=== PATIENT | female | born 1995 | race Caucasian/White ===

== ENCOUNTER 2018-02-27 18:18 | Emergency (ER) | payer OTHER ==
--- OUTSIDE RECORDS SUMMARY | 2018-02-27 18:20 | XMS REPORT ---
:1995 Author Organization [employer] Care Team Providers Name Role Phone Nury Rose Provider Role Unavailable Allergies No Known Allergies Problems Problem Type Condition Code Onset Dates Condition Status Problem Multigravida in second trimester Z34.82 Active Problem Obesity affecting in O99.212 Active second trimester Medications No Known Medications Results No Known Results Summary Purpose [employer]Clinical[employer] Submission
--- OUTSIDE RECORDS SUMMARY | 2018-02-27 18:20 | XMS REPORT ---
:1995 Author Organization [employer] Care Team Providers Name Role Phone Nury Rose Provider Role Unavailable Allergies No Known Allergies Problems Problem Type Condition Code Onset Dates Condition Status Problem Multigravida in second trimester Z34.82 Active Assessment Multigravida in second trimester Z34.82 Active Problem Obesity affecting in O99.212 Active second trimester Assessment Obesity affecting in O99.212 Active second trimester Medications No Known Medications Results No Known Results Summary Purpose [employer]ClinicalWorks Submission
--- OUTSIDE RECORDS SUMMARY | 2018-02-27 18:20 | XMS REPORT ---
[...] affecting in O99.212 Active second trimester Assessment Size of fetus inconsistent with O26.842 Active dates in second trimester Medications No Known Medications Results No Known Results Summary Purpose [employer]ClinicalWorks Submission
--- OUTSIDE RECORDS SUMMARY | 2018-02-27 18:20 | XMS REPORT ---
:1995 Author Organization [employer] Care Team Providers Name Role Phone Nruy Rose Provider Role Unavailable Allergies No Known Allergies Problems Problem Type Condition Code Onset Dates Condition Status Problem Multigravida in second trimester Z34.82 Active Problem Obesity affecting in O99.212 Active second trimester Medications No Known Medications Results No Known Results Summary Purpose [employer]ClinicalWorks Submission
--- OUTSIDE RECORDS SUMMARY | 2018-02-27 18:21 | XMS REPORT ---
:1995 Author Organization [employer] Care Team Providers Name Role Phone Nury Rose Provider Role Unavailable Allergies No Known Allergies Problems Problem Type Condition Code Onset Dates Condition Status Problem Multigravida in third trimester Z34.83 Active Problem Obesity affecting in O99.213 Active third trimester Medications No Known Medications Results No Known Results Summary Purpose [employer]ClinicalWorks Submission
--- OUTSIDE RECORDS SUMMARY | 2018-02-27 18:21 | XMS REPORT ---
:1995 Author Organization [employer] Care Team Providers Name Role Phone Nury Rose Provider Role Unavailable Allergies, Adverse Reactions, Alerts Substance Reaction Event Type PCN Info Not Available Drug Allergy Abilify Info Not Available Drug Allergy Problems Problem Type Condition Code Onset Dates Condition Status Problem Multigravida in second trimester Z34.82 Active Assessment Labial abscess N76.4 Active Problem Obesity affecting in O99.212 Active second trimester Medications No Known Medications Results No Known Results Summary Purpose [employer]ClinicalWorks Submission
--- OUTSIDE RECORDS SUMMARY | 2018-02-27 18:21 | XMS REPORT ---
:1995 Author Organization [employer] Care Team Providers Name Role Phone Nury Rose Provider Role Unavailable Allergies No Known Allergies Problems Problem Type Condition Code Onset Dates Condition Status Problem Multigravida in third trimester Z34.83 Active Assessment Obesity affecting in O99.213 Active third trimester Problem Obesity affecting in O99.213 Active third trimester Assessment Multigravida in third trimester Z34.83 Active Medications No Known Medications Results No Known Results Summary Purpose eClinicalWorks Submission
--- NOTE | 2018-02-27 20:09 | EDPHYS ---
Physician Documentation [facility] Name: Nicolasa Rose Age: 22 yrs Sex: Female : 1995 Arrival Date: 02/27/2018 Time: 18:21 Bed 27 Private MD: Milton Novak ED Physician Ronnie Craft HPI: 02/27 20:01 This 22 yrs old Female presents to ER via Ambulatory with complaints of Ear tw4 Pain. 20:01 The patient presents with a fullness, pain, that is acute. The complaints affect the tw4 right ear. Onset: The symptoms/episode began/occurred today. Modifying factors: The symptoms are alleviated by nothing, the symptoms are aggravated by nothing. Associated signs and symptoms: The patient has no apparent associated signs or symptoms. Severity of symptoms: At their worst the symptoms were moderate in the emergency department the symptoms are unchanged. The patient has not experienced similar symptoms in the past. 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 - Social history:: Smoking status: Patient/guardian denies using tobacco. ROS: 20:01 Constitutional: Negative for fever, chills, and weight loss. tw4 20:01 Cardiovascular: Negative for chest pain, palpitations, and edema, Respiratory: Negative for shortness of breath, cough, wheezing, and pleuritic chest pain, Abdomen/GI: Negative for abdominal pain, nausea, vomiting, diarrhea, and constipation, Back: Negative for injury and pain. 20:01 ENT: Positive for ear pain, Negative for injury or acute deformity, drainage from ear(s), Gum pain hearing loss, pulling at ears, Teeth pain Exam: 20:01 Constitutional: This is a well developed, well nourished patient who is awake, alert, tw4 and in no acute distress. Chest/axilla: Normal chest wall appearance and motion. Nontender with no deformity. No lesions are appreciated. Cardiovascular: Regular rate and rhythm with a normal S1 and S2. No gallops, murmurs, or rubs. Normal PMI, no JVD. No pulse deficits. Respiratory: Lungs have equal breath sounds bilaterally, clear to auscultation and percussion. No rales, rhonchi or wheezes noted. No increased work of breathing, no retractions or nasal flaring. Abdomen/GI: Soft, non-tender, with normal bowel sounds. No distension or tympany. No guarding or rebound. No evidence of tenderness throughout. 20:01 ENT: External ear(s): are unremarkable, Ear canal(s): are normal, TM's: dullness, on the right, erythema, that is moderate, on the right, fluid levels. Vital Signs: 18:41 BP 111 / 69; Pulse 105; Resp 18; Temp 97.9(TE); Pulse Ox 100% on R/A; Weight 108.86 kg lk1 (R); Height 5 ft. 5 in. (165.10 cm) (R); Pain 8/10; 19:26 BP 126 / 74; Pulse 100; Resp 18; Pulse Ox 100% ; tl3 18:41 Body Mass Index 39.94 (108.86 kg, 165.10 cm) lk1 MDM: 19:20 Patient medically screened. tw4 20:01 Differential diagnosis: otitis media. Data reviewed: vital signs, nurses notes. tw4 Counseling: I had a detailed discussion with the patient and/or guardian regarding: the historical points, exam findings, and any diagnostic results supporting the discharge/admit diagnosis. Special discussion: I discussed with the patient/guardian in detail that at this point there is no indication for admission to the hospital. It is understood, however, that if the symptoms persist or worsen the patient needs to return immediately for re-evaluation. Administered Medications: No medications were administered Disposition: 02/27/18 20:08 Discharged to Home. Impression: Otitis media in diseases classified elsewhere, right ear. - Condition is Stable. - Discharge Instructions: Otitis Media, Adult. - Prescriptions for Zithromax Z- Destin 250 mg Oral Tablet - take 1 tablet by ORAL route as directed for 5 days Day 1 - take two (2) tablets one time. Day 2, 3, 4 , 5 take one (1) tablet once daily.; 6 tablet. - Medication Reconciliation Form, Thank You Letter, Antibiotic Education, Prescription Opioid Use form. - Follow up: Milton Novak MD; When: As needed; Reason: Recheck today's complaints, Continuance of care, Re-evaluation by your physician. - Problem is new. - Symptoms are unchanged. Signatures: Jenny Smith, RN RN lk1 Ronnie Craft MD MD tw4 Lizzie Guillory, RN RN tl3 Corrections: (The following items were deleted from the chart) 20:39 20:08 02/27/2018 20:08 Discharged to Home. Impression: Otitis media in diseases tl3 classified elsewhere, right ear. Condition is Stable. Forms are Medication Reconciliation Form, Thank You Letter, Antibiotic Education, Prescription Opioid Use. Follow up: Milton Novak; When: As needed; Reason: Recheck today's complaints, Continuance of care, Re-evaluation by your physician. Problem is new. Symptoms are unchanged. tw4
--- NOTE | 2018-02-27 20:09 | ER ---
Nurse's Notes [facility] Name: Nicolasa Rose Age: 22 yrs Sex: Female : 1995 Arrival Date: 02/27/2018 Time: 18:21 Bed 27 Private MD: Milton Novak Diagnosis: Otitis media in diseases classified elsewhere, right ear Presentation: 02/27 18:40 Presenting complaint: Patient states: "I can't hear out of my ear (right). It started lk1 as sinus congestion, then at 4pm I started having pain.". Transition of care: patient was not received from another setting of care. Onset of symptoms was February 26, 2018. Risk Assessment: Do you want to hurt yourself or someone else? Patient reports no desire to harm self or others. Initial Sepsis Screen: Does the patient meet any 2 criteria? No. Patient's initial sepsis screen is negative. Does the patient have a suspected source of infection? No. Patient's initial sepsis screen is negative. Care prior to arrival: None. 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 - Social history:: Smoking status: Patient/guardian denies using tobacco. Screenin:26 Abuse screen: Denies threats or abuse. Nutritional screening: No deficits noted. tl3 Tuberculosis screening: No symptoms or risk factors identified. Fall Risk None identified. Assessment: 19:26 General: Appears in no apparent distress. comfortable, well groomed, well developed, tl3 well nourished, Behavior is calm, cooperative, appropriate for age. Pain: Complains of pain in right ear. Cardiovascular: Heart tones S1 S2 present Patient's skin is warm and dry. Respiratory: Airway is patent Trachea midline Respiratory effort is even, unlabored, Respiratory pattern is regular, symmetrical, Breath sounds are clear bilaterally. GI: No signs and/or symptoms were reported involving the gastrointestinal system. : No signs and/or symptoms were reported regarding the genitourinary system. EENT: Reports nasal congestion since one week. Derm: No signs and/or symptoms reported regarding the dermatologic system. Musculoskeletal: No signs and/or symptoms reported regarding the musculoskeletal system. Vital Signs: 18:41 BP 111 / 69; Pulse 105; Resp 18; Temp 97.9(TE); Pulse Ox 100% on R/A; Weight 108.86 kg lk1 (R); Height 5 ft. 5 in. (165.10 cm) (R); Pain 8/10; 19:26 BP 126 / 74; Pulse 100; Resp 18; Pulse Ox 100% ; tl3 18:41 Body Mass Index 39.94 (108.86 kg, 165.10 cm) lk1 ED Course: 18:21 Patient arrived in ED. rg4 18:21 Milton Novak MD is Private Physician. rg4 18:40 Triage completed. lk1 18:43 Arm band placed on right wrist. lk1 19:19 Ronnie Craft MD is Attending Physician. tw4 19:20 Lizzie Guillory, RN is Primary Nurse. tl3 19:26 No apparent distress. Awaiting ED provider evaluation. tl3 19:26 Patient has correct armband on for positive identification. Bed in low position. Call tl3 light in reach. Side rails up X 1. Adult w/ patient. Pulse ox on. NIBP on. 19:26 No provider procedures requiring assistance completed. Patient did not have IV access tl3 during this emergency room visit. 20:07 Milton Novak MD is Referral Physician. tw4 Administered Medications: No medications were administered Outcome: 20:08 Discharge ordered by . tw4 20:39 Patient left the ED. tl3 23:39 Discharged to home ambulatory. tl3 23:39 Condition: good 23:39 Discharge instructions given to patient, Instructed on discharge instructions, follow up and referral plans. medication usage, Demonstrated understanding of instructions, follow-up care, medications. Signatures: Jenny Smith, RN RN lk1 Donna Hollins 4 Ronnie Craft MD MD 4 Lizzie Guillory, OWEN RN tl3
[2018-02-27 21:14] VITALS: TEMP 97.9; O2SAT 100
[2018-02-27 21:16] VITALS: BP 126/74
== END 2018-02-27 20:39 | disposition home or self-care (01) ==
LOC: ER 18:18
DX: H66.91 Otitis media, unspecified, right ear (principal); Z88.0 Allergy status to penicillin; Z88.8 Allergy status to other drugs, medicaments and biological substances
CPT/HCPCS: 99283

== ENCOUNTER 2018-03-15 22:09 | Emergency (ER) | payer OTHER ==
--- NOTE | 2018-03-16 01:41 | ER ---
Nurse's Notes [facility] Name: Nicolasa Rose Age: 22 yrs Sex: Female : 1995 Arrival Date: 03/15/2018 Time: 22:15 Bed 6 Private MD: Milton Novak Diagnosis: Pain in right foot Presentation: 03/15 23:15 Presenting complaint: Patient states: that 2 days ago she started to have right foot fc pain. Denies any injury. No swelling or bruising present. Transition of care: patient was not received from another setting of care. Onset of symptoms was March 13, 2018. Risk Assessment: Do you want to hurt yourself or someone else? Patient reports no desire to harm self or others. Initial Sepsis Screen: Does the patient meet any 2 criteria? No. Patient's initial sepsis screen is negative. Does the patient have a suspected source of infection? No. Patient's initial sepsis screen is negative. Care prior to arrival: Medication(s) given: Motrin, 800 mg, last at about 1200. 23:15 Method Of Arrival: Wheelchair 23:15 Acuity: ROSENDO 4 Triage Assessment: 23:28 General: Appears comfortable, obese, Behavior is calm, cooperative, appropriate for age. Pain: Complains of pain in right foot Pain currently is 5 out of 10 on a pain scale. at worst was 9 out of 10 on a pain scale. Quality of pain is described as aching, throbbing, Pain began 2-3 days ago. Is continuous, Aggravated by increased activity, repositioning, weight bearing. EENT: No deficits noted. Neuro: Level of Consciousness is awake, alert, obeys commands, Oriented to person, place, time, situation. Cardiovascular: No deficits noted. Respiratory: No deficits noted. GI: No deficits noted. : No deficits noted. Derm: Skin is pink, warm \T\ dry. Musculoskeletal: Circulation, motion, and sensation intact. Capillary refill < 3 seconds, Range of motion: intact in all extremities, Reports pain in right foot. 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 - Social history:: Smoking status: Patient/guardian denies using tobacco. - Ebola Screening: : Patient negative for fever greater than or equal to 101.5 degrees Fahrenheit, and additional compatible Ebola Virus Disease symptoms Patient denies exposure to infectious person Patient denies travel to an Ebola-affected area in the 21 days before illness onset. Screenin/07 00:34 Abuse screen: Denies threats or abuse. Nutritional screening: No deficits noted. bp Tuberculosis screening: No symptoms or risk factors identified. Fall Risk Gait- Impaired (20 pts.). Assessment: 00:39 General: Appears in no apparent distress. uncomfortable, Behavior is calm, cooperative, tl2 appropriate for age. Pain: Complains of pain in arch of right foot. Pain: Pain does not radiate. Pain currently is 9 out of 10 on a pain scale. Aggravated by weight bearing. Neuro: Level of Consciousness is awake, alert, obeys commands, Oriented to person, place, time, situation. Cardiovascular: Denies chest pain. Respiratory: Airway is patent Respiratory effort is even, unlabored, Respiratory pattern is regular, symmetrical. GI: No signs and/or symptoms were reported involving the gastrointestinal system. : No signs and/or symptoms were reported regarding the genitourinary system. Derm: Skin is pink, warm \T\ dry. Musculoskeletal: Circulation, motion, and sensation intact. Range of motion: Swelling absent. Vital Signs: 03/15 23:28 BP 102 / 62; Pulse 90; Resp 16; Temp 98.1(O); Pulse Ox 98% on R/A; Weight 104.33 kg; fc Height 5 ft. 5 in. (165.10 cm) (R); Pain 02/16; 03/16 00:36 BP 111 / 64; Pulse 75; Resp 18; Pulse Ox 99% on R/A; bp 01:29 BP 105 / 72; Pulse 75; Resp 15; Pulse Ox 97% on R/A; rv 03/15 23:28 Body Mass Index 38.27 (104.33 kg, 165.10 cm) ED Course: 03/15 22:15 Patient arrived in ED. al2 22:15 Milton Novak MD is Private Physician. al2 23:28 Triage completed. fc 23:28 Arm band placed on Patient placed in waiting room, Patient notified of wait time. 03/16 00:34 Vickey Myles, RN is Primary Nurse. bp 00:34 Patient has correct armband on for positive identification. Bed in low position. Call bp light in reach. Side rails up X2. 00:38 [facility]. pm1 00:38 Kenny Storey MD is Attending Physician. pm1 00:39 Mary Levin RN is Primary Nurse. tl2 00:49 Foot Right 3 View In Process Unspecified. EDMS 00:51 X-ray completed. Portable x-ray completed in exam room. Patient tolerated procedure kw well. 02:19 No provider procedures requiring assistance completed. No provider procedures requiring rv assistance completed. 02:19 Patient did not have IV access during this emergency room visit. rv Administered Medications: 02:18 Drug: Tylenol 500 mg Route: PO; rv Outcome: 01:41 Discharge ordered by MD. pm1 02:19 Discharged to home ambulatory. rv 02:19 Condition: good 02:19 Discharge instructions given to patient. 02:20 Patient left the ED. rv Signatures: Dispatcher [employer] EDMS Yani Lanier RN RN Ludmila Roberts Sheng Muñoz NP DAM WORKER pm1 Mary Levin RN RN tl2 Vickey Myles RN RN bp Love, Angelica al2 Orlando Eduardo RN RN rv Corrections: (The following items were deleted from the chart) 00:39 00:34 General: Appears in no apparent distress. uncomfortable, Behavior is calm, tl2 cooperative, appropriate for age, bp 00:40 00:34 Pain: Complains of pain in arch of right foot Pain does not radiate. Pain tl2 currently is 9 out of 10 on a pain scale. Aggravated by weight bearing, bp 00:40 00:34 Neuro: Level of Consciousness is awake, alert, obeys commands, Oriented to tl2 person, place, time, situation, bp 00:40 00:34 Cardiovascular: Denies chest pain, bp tl2 00:40 00:34 Respiratory: Airway is patent Respiratory effort is even, unlabored, Respiratory tl2 pattern is regular, symmetrical, bp 00:40 00:34 GI: No signs and/or symptoms were reported involving the gastrointestinal system. tl2 bp 00:40 00:34 : No signs and/or symptoms were reported regarding the genitourinary system. bp tl2 00:40 00:34 Derm: Skin is pink, warm \T\ dry. bp tl2 00:40 00:34 General: Appears in no apparent distress. comfortable, uncomfortable, Behavior is tl2 calm, cooperative, appropriate for age, tl2
--- NOTE | 2018-03-16 01:41 | EDPHYS ---
Physician Documentation [facility] Name: Nicolasa Rose Age: 22 yrs Sex: Female : 1995 Arrival Date: 03/15/2018 Time: 22:15 Bed 6 Private MD: Milton Novak ED Physician Kenny Storey HPI: 03/16 01:35 This 22 yrs old Female presents to ER via Wheelchair with complaints of Foot pm1 Pain. 01:35 The patient presents with pain. The complaints affect the medial aspect of right foot. pm1 Context: The problem was sustained at home, resulted from an unknown cause, the patient can fully bear weight, the patient is able to ambulate, Problem is a result from a previous injury: No. Onset: The symptoms/episode began/occurred 2 day(s) ago. Modifying factors: The symptoms are alleviated by nothing. the symptoms are aggravated by movement, weight bearing. Associated signs and symptoms: Pertinent negatives fever, swelling, tingling, vomiting. Treatment prior to arrival includes: no previous treatment. Severity of symptoms: in the emergency department the symptoms are actually worse. The patient has not experienced similar symptoms in the past. The patient has not recently seen a physician. patient 33 weeks . 01:35 patient reports tripping over the dog at one time. pm1 LAUNDRY AGENT: 03/15 23:28 LMP 07/26/2017, Verified, EDC 05/02/2018, Gestational age from LMP: 33 weeks 2 fc days Historical: - Allergies: 23:28 PENICILLINS; fc 23:28 Abilify; fc - Home Meds: 23:28 None [Active]; fc - PMHx: 23:28 Anxiety; Depression; fc - PSHx: 23:28 None; fc - Immunization history:: Last tetanus immunization: up to date. - Social history:: Smoking status: Patient/guardian denies using tobacco. - Ebola Screening: : Patient negative for fever greater than or equal to 101.5 degrees Fahrenheit, and additional compatible Ebola Virus Disease symptoms Patient denies exposure to infectious person Patient denies travel to an Ebola-affected area in the 21 days before illness onset. ROS: 03/16 01:35 Constitutional: Negative for fever, chills, and weight loss, Eyes: Negative for injury, pm1 pain, redness, and discharge, ENT: Negative for injury, pain, and discharge, Neck: Negative for injury, pain, and swelling, Cardiovascular: Negative for chest pain, palpitations, and edema, Respiratory: Negative for shortness of breath, cough, wheezing, and pleuritic chest pain, Abdomen/GI: Negative for abdominal pain, nausea, vomiting, diarrhea, and constipation, Back: Negative for injury and pain. Skin: Negative for injury, rash, and discoloration, Neuro: Negative for headache, weakness, numbness, tingling, and seizure. MS/extremity: Positive for pain, of the right foot. Exam: 01:35 Constitutional: This is a well developed, well nourished patient who is awake, alert, pm1 and in no acute distress. Head/Face: Normocephalic, atraumatic. Neck: Trachea midline, no thyromegaly or masses palpated, and no cervical lymphadenopathy. Supple, full range of motion without nuchal rigidity, or vertebral point tenderness. No Meningismus. Chest/axilla: Normal chest wall appearance and motion. Nontender with no deformity. No lesions are appreciated. Cardiovascular: Regular rate and rhythm with a normal S1 and S2. No gallops, murmurs, or rubs. Normal PMI, no JVD. No pulse deficits. Respiratory: Lungs have equal breath sounds bilaterally, clear to auscultation and percussion. No rales, rhonchi or wheezes noted. No increased work of breathing, no retractions or nasal flaring. 01:35 Back: No spinal tenderness. No costovertebral tenderness. Full range of motion. Skin: Warm, dry with normal turgor. Normal color with no rashes, no lesions, and no evidence of cellulitis. 01:35 Abdomen/GI: Inspection: gravid appearance, is noted. 01:35 Musculoskeletal/extremity: Extremities: grossly normal except: noted in the ball of right foot: swelling, tenderness, ROM: full active range of motion, in the right foot, Circulation is intact in all extremities. Sensation intact. 01:35 Neuro: Orientation: is normal, Motor: moves all fours, Sensation: is normal, no obvious gross deficits. Vital Signs: 03/15 23:28 BP 102 / 62; Pulse 90; Resp 16; Temp 98.1(O); Pulse Ox 98% on R/A; Weight 104.33 kg; fc Height 5 ft. 5 in. (165.10 cm) (R); Pain 02/16; 03/16 00:36 BP 111 / 64; Pulse 75; Resp 18; Pulse Ox 99% on R/A; bp 01:29 BP 105 / 72; Pulse 75; Resp 15; Pulse Ox 97% on R/A; rv 03/15 23:28 Body Mass Index 38.27 (104.33 kg, 165.10 cm) fc MDM: 00:38 Patient medically screened. pm1 01:40 Data reviewed: vital signs. Data interpreted: Pulse oximetry: on room air is 97 %. pm1 Interpretation: normal. Counseling: I had a detailed discussion with the patient and/or guardian regarding: the historical points, exam findings, and any diagnostic results supporting the discharge/admit diagnosis, radiology results, the need for outpatient follow up, to return to the emergency department if symptoms worsen or persist or if there are any questions or concerns that arise at home. 03/16 00:40 Order name: Foot Right 3 View EDMS Administered Medications: 02:18 Drug: Tylenol 500 mg Route: PO; rv Disposition: 07:17 Co-signature as Attending Physician, Kenny Storey MD I agree with the assessment and johnny plan of care. Disposition: 03/16/18 01:41 Discharged to Home. Impression: Pain in right foot. - Condition is Stable. - Discharge Instructions: Foot Sprain. - Medication Reconciliation Form, Thank You Letter form. - Follow up: Emergency Department; When: As needed; Reason: Worsening of condition. Follow up: Private Physician; When: 2 - 3 days; Reason: Recheck today's complaints, Continuance of care, Re-evaluation by your physician. - Problem is new. - Symptoms have improved. Signatures: Dispatcher [employer] [facility] Kenny Storey MD MD cha Chretien, Felicia, RN RN Sheng Muñoz, [employer] pm1 Orlando Eduardo RN RN rv Corrections: (The following items were deleted from the chart) 00:40 00:01 Foot Right 2 View+RAD.RAD.BRZ ordered. [facility] 02:20 01:41 03/16/2018 01:41 Discharged to Home. Impression: Pain in right foot. Condition is rv Stable. Forms are Medication Reconciliation Form, Thank You Letter, Antibiotic Education, Prescription Opioid Use. Follow up: Emergency Department; When: As needed; Reason: Worsening of condition. Follow up: Private Physician; When: 2 - 3 days; Reason: Recheck today's complaints, Continuance of care, Re-evaluation by your physician. Problem is new. Symptoms have improved. pm1
[2018-03-16] MEDS ORDERED: ACETAMINOPHEN 500 MG TAB ONE (01:53)
[2018-03-16 03:23] VITALS: TEMP 98.1
[2018-03-16 03:25] VITALS: BP 105/72; O2SAT 97
--- NOTE | 2018-03-16 08:52 | RAD REPORT ---
EXAM DESCRIPTION: RAD - Foot Right 3 View - 03/16/2018 12:49 am CLINICAL HISTORY: Right foot pain without precipitating injury COMPARISON: None. FINDINGS: No fracture, dislocation or periosteal reaction. No acute or destructive bone findings demetris ntifiable. No bony coalition seen. No plantar or Achilles spurring identifiable. Normal ossicle seen along the posterior aspect of the tibiotalar joint space. No air or foreign body in the soft tissues. IMPRESSION: No acute bone, joint or soft tissue finding identifiable. If the patient has continued, unexplained pain symptoms, MR imaging of the foot could be performed.
== END 2018-03-16 02:20 | disposition home or self-care (01) ==
LOC: ER 22:09
DX: M79.671 Pain in right foot (principal); Z3A.33 33 weeks gestation of pregnancy; Z88.0 Allergy status to penicillin; Z88.8 Allergy status to other drugs, medicaments and biological substances
CPT/HCPCS: 99283

== ENCOUNTER 2018-04-26 05:16 | Inpatient (IN) | payer OTHER ==
[~2018-04-26 05:16] MED LIST: ACETAMINOPHEN 500 MG TAB PO PRN; DIPHENHYDRAMINE 50 MG/ML VIAL IV PRN; METOCLOPRAMIDE 10 MG/2mL INJ IV PRN; ONDANSETRON 4 MG/2 ML VIAL IV PRN; Ringers Lactate 1,000 ML IV PRN; Ringers Lactate 1,000 ML IV SCH
--- OUTSIDE RECORDS SUMMARY | 2018-04-26 05:18 | XMS REPORT ---
:1995 Author Organization e[employer] Care Team Providers Name Role Phone Nury Rose Provider Role Unavailable Allergies No Known Allergies Problems Problem Type Condition Code Onset Dates Condition Status Problem Multigravida in third trimester Z34.83 Active Assessment Multigravida in third trimester Z34.83 Active Problem Obesity affecting in O99.213 Active third trimester Assessment Obesity affecting in O99.213 Active third trimester Medications Medication Code System Code Instructions Start Date End Date Status Dosage Diflucan [facility] [id number] 150 MG Orally March 16, Active 1 tablet Take one now and 2018 repeat dose in 72h Results No Known Results Summary Purpose eClinicalWorks Submission
--- OUTSIDE RECORDS SUMMARY | 2018-04-26 05:19 | XMS REPORT ---
:1995 Author Organization [employer] Care Team Providers Name Role Phone Nury Rose Provider Role Unavailable Allergies No Known Allergies Problems Problem Type Condition Code Onset Dates Condition Status Problem Multigravida in third trimester Z34.83 Active Problem Obesity affecting in O99.213 Active third trimester Assessment Multigravida in third trimester Z34.83 Active Assessment Obesity affecting in O99.213 Active third trimester Medications No Known Medications Results No Known Results Summary Purpose eClinicalWorks Submission
[2018-04-26] MEDS ORDERED: miSOPROStol 100 MCG TAB PO ONE (06:00)
[2018-04-26 06:19] LABS: RPR Titer ND
[2018-04-26 06:21] LABS: Urine Appearance CLOUDY; Urine Bilirubin NEGATIVE (NEG); Urine Blood 1+ (NEG); Urine Color YELLOW; Urine Glucose NEGATIVE (NEG); Urine Protein NEGATIVE (NEG); Urine Urobilinogen 0.2 mg/dL (0.2-1.0)
[2018-04-26 06:22] LABS: Absolute Lymphocytes (CBC) 1.8 K/uL (0.7-4.9); Absolute Monocytes 0.6 K/uL (0.1-1.3); Absolute Neutrophil 5.3 K/uL (1.8-8.0); Basophils % 0.5 % (0-1.3); Eosinophils % 0.4 % (0-4.4); Hematocrit 33.3 % (36.0-45.0); Lymphocytes % 23.1 % (15.3-44.8); MCH 29.3 pg (27.0-35.0); MCV 87.7 fL (80-100); MPV 8.6 fL (7.6-11.3); Monocytes % 7.3 % (3.3-12.3)
[2018-04-26 06:24] LABS: Urine Microscopic Reflex ORDER UMIC
[2018-04-26 06:29] VITALS: BMI 40.7
[2018-04-26 06:34] LABS: Urine Bacteria 20-50 /HPF (<20); Urine Culture Reflex Order REFLEXED
[2018-04-26 07:11] LABS: BUN Blood Urea Nitrogen 5 mg/dL (7-18); Bicarbonate 22 mmol/L (21-32); Glucose Level 83 mg/dL (74-106); Potassium 4.1 mmol/L (3.5-5.1); Sodium Level 141 mmol/L (136-145)
--- NOTE | 2018-04-26 09:06 | P.HP ---
Certification for Inpatient Patient admitted to: Inpatient With expected LOS: >2 Midnights Patient will require the following post-hospital care: None Practitioner: I am a practitioner with admitting privileges, knowledge of patient current condition, hospital course, and medical plan of care. Services: Services provided to patient in accordance with Admission requirements found in Title 42 Section 412.3 of the Code of Federal Regulations Patient History Date of Service: 04/27/18 Reason for admission: Elective induction of labor History of Present Illness: 22 y.o. at 39w1d admitted for an elective induction of labor. c/b obesity, failed contraception, h/o anxiety/depression (off meds), and contractions. Pt had routine care starting at 6 weeks. REGINO: 05/02/2018. GBS negative Allergies aripiprazole [From Abilify] Allergy (Verified 04/26/18 06:19) Unknown Penicillins Allergy (Verified 04/26/18 06:19) Unknown pap Allergy (Uncoded 02/13/15 09:06) Unknown paper tape Allergy (Uncoded 03/04/15 21:37) Unknown Home Medications: Codeine/APAP [Tylenol W/Codeine #3 tab] 1 tab PO Q6HP PRN #15 tab 04/27/18 Ibuprofen 800 mg PO TID PRN #30 tablet 04/27/18 - Past Medical/Surgical History Has patient received pneumonia vaccine in the past: No Diabetic: No -: HPV Past Surgical History: Patient denies surgical history - Social History Smoking Status: Never smoker Alcohol use: No CD- Drugs: No Caffeine use: Yes Place of Residence: Home Review of Systems 10-point ROS is otherwise unremarkable Physical Examination - Vital Signs Temperature: 97.7 F Blood Pressure: 115/69 Pulse: 78 Respirations: 18 - Physical Exam General: Alert, In no apparent distress, Oriented x3 Respiratory: Other (Normal effort) Cardiovascular: Normal pulses Musculoskeletal: No tenderness, Swelling (B/L 1+ ankle edema) Integumentary: No rashes, No breakdown Neurological: Normal speech, Normal strength at 5/5 x4 extr - Studies Laboratory Data (last 24 hrs) 04/26/18 05:40: Sodium 141, Potassium 4.1, BUN 5 L, Creatinine 0.60, Glucose 83 04/26/18 05:40: WBC 7.8, Hgb 11.1 L, Hct 33.3 L, Plt Count 194 Female Exam - Female Pelvic Cervix: Dilation (1-2 cm by RN), Effacement (Thick), station (High) Uterus: Non-tender, Soft, Gravid - Obstetrics heart rate tracing: Category 1 Contractions: Frequency (Irregular) Amniotic membrane: Intact Assessment and Plan - Problems (Diagnosis) (1) Term Onset Date: 04/27/18 Current Visit: Yes Status: Resolved Plan: Admitted for elective induction of labor. Cervical ripening started with cytotec. Plan for 3 doses prior to starting pitocin. U/S confirmed cephalic presentation. Epidural per patient request with villalpando placement. (2) BMI greater than 40 Onset Date: 04/27/18 Current Visit: Yes Status: Chronic Plan: Counseled on exercise and healthy diet throughout . Negative GDM screen. - Advance Directives Does patient have a Living Will: No Does patient have a Durable POA for Healthcare: No
--- NOTE | 2018-04-26 09:57 | RAD REPORT ---
EXAM DESCRIPTION: US - OB Limited - 04/26/2018 9:37 am FINDINGS: Limited OB ultrasound was performed. Exam was requested only for position assessment . Single gestation identified in cephalic presentation. Heart rate was 171 BPM. Anterior placenta shows no suspicious findings for late third trimester gestation. IMPRESSION: Single gestation in cephalic presentation.
[2018-04-26] MEDS ORDERED: ROPIVACAINE HCL 100 ML IV PRN (12:09)
[2018-04-26] MEDS ORDERED: ROPIVACAINE HCL 0.2% 20ML AMP IV ONE (12:10)
[2018-04-26] MEDS ORDERED: FENTANYL CITR 100 MCG/2 ML IV ONE (12:10)
[2018-04-26] MEDS ORDERED: PROMETHAZINE 25 MG/ML VIAL IV ONE (12:22)
[2018-04-26] MEDS ORDERED: PROMETHAZINE 25 MG/ML VIAL ONE (12:36)
[2018-04-26] MEDS ORDERED: miSOPROStol 100 MCG TAB VAG SCH (13:00)
[2018-04-26 19:15] LABS: RPR (Rapid Plasma Reagin) NON-REACT (NON-REACT)
[2018-04-26] MEDS ORDERED: OXYTOCIN/LR 20 UNIT/1,000 ML BAG IV SCH (20:45)
[2018-04-26] MEDS ORDERED: OXYTOCIN/LR 20 UNIT/1,000 ML BAG IV ONE (20:54)
[2018-04-26] MEDS ORDERED: BUTORPHANOL 1 MG/ML INJ ONE (21:10)
[2018-04-26] MEDS ORDERED: BUTORPHANOL 1 MG/ML INJ IV PRN (21:55)
[2018-04-27] MEDS ORDERED: FENTANYL/BUPIVACAINE/NS/PF 200 MCG/100 ML BAG EP PRN (02:15)
[2018-04-27] MEDS ORDERED: ROPIVACAINE HCL 0.2% 20ML AMP SQ ONE (02:20)
[2018-04-27] MEDS ORDERED: METHYLERGONOVINE 0.2MG/ML AMP IM ONE (02:53)
[2018-04-27] MEDS ORDERED: LIDOCAINE 2% W/EPI 1:200,000 MPF 20 ML VIAL IM ONE (02:53)
[2018-04-27] MEDS ORDERED: DIPHENHYDRAMINE 25 MG TAB/CAP PO PRN (03:19)
[2018-04-27] MEDS ORDERED: ACETAMINOPHEN 500 MG TAB PO PRN (03:19)
[2018-04-27] MEDS ORDERED: ONDANSETRON 4 MG (ODT) TAB PO PRN (03:19)
[2018-04-27] MEDS ORDERED: METOCLOPRAMIDE 5 MG TAB PO PRN (03:19)
--- NOTE | 2018-04-27 03:26 | P.OP ---
Preoperative diagnosis: Term IUP, elective induction of labor Postoperative diagnosis: Same with precipitous delivery Primary procedure: , precipitous Anesthesia: None Estimated blood loss: 300 cc Specimen: None Findings: See operative report Operative Technique: FINDINGS: [place] male fetus. APGARS of 9/9; weight of 7# 14 oz; Clear amniotic fluid, normal appearing placenta; Small 2nd degree midline laceration HISTORY OF PRESENT ILLNESS: The patient is a 22-year-old female who is a at 39w1d admitted for an elective IOL. Her labs showed A+ blood type with negative antibody screen, VDRL non-reactive, hepatitis B surface antigen negative, HIV non-reactive and rubella immune status. She presented to Labor and Delivery for a scheduled induction. She noted positive movement and denied any other complaints. On exam, she was noted to be 1-2 cm dilated. PROCEDURE DETAILS: The patient was admitted to Labor and Delivery for cervical ripening, which was done with cytotec. After 3 doses, she started to have painful contractions and repeat exam per nursing was 4 cm. She requested an epidural. Anesthesia was called. RN then reports patient's called out to nursing station and patient was re-examined and reportedly now 7 cm. Anesthesia was en route. RN then states patient told her she was pushing shortly thereafter and delivered the baby en-caul. Per nursing, fluid was clear. I was called and informed to come in, but baby had already delivered. When I arrived, infant on the warmer being assessed by nursing. He was crying, pink, vigorous, and moving all extremities. Placenta was not delivered yet. Spontaneous delivery of an intact placenta with a three-vessel cord was noted at 03:04. On examination, there was a small 2nd degree laceration. 2-0 vicryl was used to repair it in the usual sterile fashion after local was injected and anesthesia confirmed. On vaginal exam, there were no noted cervical or other vaginal sidewall lacerations. Estimated blood loss was 300 cc. Mother and infant are in recovery doing well at this time. Complications: None (RN attended delivery) Fluids & blood products: mIVF Transferred to: Recovery Room Condition: Good
[2018-04-27] MEDS ORDERED: NA CHLORIDE 0.9% 1,000 ML IV SCH (04:00)
[2018-04-27] MEDS ORDERED: miSOPROStol 100 MCG TAB PO SCH (09:00)
[2018-04-27] MEDS: IBUPROFEN 200 MG TAB PO PRN ×2 (11:54→22:10)
--- NOTE | 2018-04-27 17:39 | P.DS ---
Admission Date: 04/26/18 Discharge Date: 05/15/18 Disposition: ROUTINE DISCHARGE Comment: Rounding with discharge summary Discharge Condition: GOOD Reason for Admission: Elective induction of labor - Problems (1) Term Onset Date: 04/27/18 Status: Resolved (2) BMI greater than 40 Onset Date: 04/27/18 Status: Chronic Brief History of Present Illness: 22 y.o. at 39w1d admitted for an elective induction of labor. c/b obesity and contractions. She has had routine care. REGINO: 05/02/2018. GBS negative Hospital Course: Pt was admitted for elective induction of labor. She underwent cervical ripening with cytotec and had spontaneous onset of labor. She asked for an epidural and anesthesia was called for placement, but quickly progressed to complete per nursing. She then started pushing despite nursing request to hold off. I was notified to present to L&D but baby had already delivered when I was called. I arrived and baby was on the warmer. I delivered placenta and repaired 2nd degree laceration. Pt recovered well and was stable for d/c home on PPD #1 Vital Signs/Physical Exam: Temp Pulse Resp BP Pulse Ox 98.3 F 78 14 110/80 04/27/18 17:23 04/27/18 17:23 04/27/18 17:23 04/27/18 17:23 General: Alert, In no apparent distress, Oriented x3 HEENT: Atraumatic, Normocephalic Respiratory: Other (Normal effort) Cardiovascular: Normal pulses Gastrointestinal: Soft and benign, No tenderness, Other (Obese, but uterum firm) Musculoskeletal: No erythema, No tenderness, Swelling (B/L LE pitting edema 2+) Integumentary: No rashes, No breakdown Neurological: Normal speech, Normal strength at 5/5 x4 extr Laboratory Data at Discharge: WBC 7.8 K/uL (4.3-10.9) 04/26/18 05:40 Hgb 11.1 g/dL (12.0-15.0) L 04/26/18 05:40 Hct 33.3 % (36.0-45.0) L 04/26/18 05:40 Plt Count 194 K/uL (152-406) 04/26/18 05:40 Sodium 141 mmol/L (136-145) 04/26/18 05:40 Potassium 4.1 mmol/L (3.5-5.1) 04/26/18 05:40 BUN 5 mg/dL (7-18) L 04/26/18 05:40 Creatinine 0.60 mg/dL (0.55-1.3) 04/26/18 05:40 Glucose 83 mg/dL (74-106) 04/26/18 05:40 Home Medications: Codeine/APAP [Tylenol W/Codeine #3 tab] 1 tab PO Q6HP PRN #15 tab 04/27/18 Ibuprofen 800 mg PO TID PRN #30 tablet 04/27/18 New Medications: Codeine/APAP [Tylenol W/Codeine #3 tab] 1 tab PO Q6HP PRN #15 tab PRN Reason: Pain Severe Ibuprofen 800 mg PO TID PRN #30 tablet PRN Reason: Abdominal Cramps Patient Discharge Instructions: Complete pelvic rest for 6 weeks after . Notify physician of heavy bleeding, fever/chills, or other signs of infection. See doctor in 6 weeks for exam. Diet: Regular Activity: Ad vinod Followup: Nury Rose MD [ACTIVE - CAN ADMIT] - (Follow up care with Dr. Rose in 6 weeks for post visit. [phone])
[2018-04-28 05:20] LABS: Absolute Lymphocytes (CBC) 2.1 K/uL (0.7-4.9); Absolute Monocytes 0.6 K/uL (0.1-1.3); Absolute Neutrophil 5.3 K/uL (1.8-8.0); Basophils % 1.1 % (0-1.3); Eosinophils % 0.8 % (0-4.4); Hematocrit 28.6 % (36.0-45.0); Lymphocytes % 25.8 % (15.3-44.8); MCH 29.9 pg (27.0-35.0); MPV 8.5 fL (7.6-11.3); Monocytes % 7.1 % (3.3-12.3); RBC Red Blood Cell Count 3.25 M/uL (3.86-4.86)
[2018-04-28 08:06] VITALS: BP 115/57; TEMP 97.1
[2018-04-28] MEDS ORDERED: Ringers Lactate 1,000 ML IV ONE (10:34)
[2018-04-28 18:18] LABS: HBsAG Nonreactive (Nonreactive)
== END 2018-04-28 10:50 | disposition home or self-care (01) | DRG 775 ==
LOC: 2ND-WC 05:16
PROVIDERS: ADMIT Obstetrics & Gynecology; ATTEND Obstetrics & Gynecology
PROC: 3E0P7VZ Introduction of Hormone into Female Reproductive, Via Natural or Artificial Opening (ICD-10-PCS; 2018-04-26)
PROC: 10E0XZZ Delivery of Products of Conception, External Approach (ICD-10-PCS; principal; 2018-04-27)
PROC: 0KQM0ZZ Repair Perineum Muscle, Open Approach (ICD-10-PCS; 2018-04-27)
DX: O62.3 Precipitate labor (principal); Z68.41 Body mass index [BMI] 40.0-44.9, adult; O70.1 Second degree perineal laceration during delivery; O99.214 Obesity complicating childbirth; Z3A.39 39 weeks gestation of pregnancy; Z37.0 Single live birth; Z88.0 Allergy status to penicillin; Z88.8 Allergy status to other drugs, medicaments and biological substances; Z91.048 Other nonmedicinal substance allergy status
CPT/HCPCS: 36415; 76815; 80048; 81003; 81015; 85025; 86592; 86850; 86900; 86901; 87086; 87088; 87340; J0595; J2210; J2550; J2590; J7030

== ENCOUNTER 2018-07-07 10:22 | Emergency (ER) | payer OTHER ==
--- OUTSIDE RECORDS SUMMARY | 2018-07-07 10:24 | XMS REPORT ---
[...] Start Date End Date Status Dosage Diflucan [facility] [id number] 150 MG Orally March 16, Active 1 tablet Take one now and 2018 repeat dose in 72h Results No Known Results Summary Purpose eClinicalWorks Submission
--- NOTE | 2018-07-07 10:51 | ER ---
Nurse's Notes [facility] Name: Nicolasa Rose Age: 23 yrs Sex: Female : 1995 Arrival Date: 07/07/2018 Time: 10:26 Bed 23 Private MD: Milton Novak Diagnosis: Pain in left foot;Pain in right foot Presentation: 07/07 10:34 Presenting complaint: Patient states: bilateral foot pain that starts in heels and ss radiates up towards ankles x 3 weeks. Worse in the mornings and when standing. Transition of care: patient was not received from another setting of care. Onset of symptoms was June 16, 2018. Risk Assessment: Do you want to hurt yourself or someone else? Patient reports no desire to harm self or others. Initial Sepsis Screen: Does the patient meet any 2 criteria? No. Patient's initial sepsis screen is negative. Does the patient have a suspected source of infection? No. Patient's initial sepsis screen is negative. Care prior to arrival: None. 10:34 Method Of Arrival: Ambulatory ss 10:34 Acuity: ROSENDO 5 ss Historical: - Allergies: 10:35 Abilify; ss 10:35 PENICILLINS; ss - Home Meds: 10:35 None [Active]; ss - PMHx: 10:35 Depression; Anxiety; ss - PSHx: 10:35 None; ss - Immunization history:: Adult Immunizations up to date. - Social history:: Smoking status: Patient/guardian denies using tobacco. - Ebola Screening: : Patient denies exposure to infectious person Patient denies travel to an Ebola-affected area in the 21 days before illness onset. Screenin:37 Abuse screen: Denies threats or abuse. Denies injuries from another. Nutritional ss screening: No deficits noted. Tuberculosis screening: Never had TB. Fall Risk None identified. Assessment: 10:37 General: Appears in no apparent distress. comfortable, Behavior is calm, cooperative, ss Denies fever, feeling ill, fatigue, chills. Pain: Complains of pain in bilateral heels Pain currently is 0 out of 10 on a pain scale. at worst was 9 out of 10 on a pain scale. Quality of pain is described as pulling/ aching Pain began 3 weeks ago Is continuous. Pain: Pain radiates to bilateral heels. Neuro: Level of Consciousness is awake, alert, obeys commands, Oriented to person, place, time, situation. Cardiovascular: Capillary refill < 3 seconds is brisk in bilateral fingers Patient's skin is warm and dry. Respiratory: Airway is patent Respiratory effort is even, unlabored, Respiratory pattern is regular, symmetrical. GI: No signs and/or symptoms were reported involving the gastrointestinal system. EENT: Nares are clear Oral mucosa is moist. Derm: Skin is intact, is healthy with good turgor, Skin is dry, Skin is pink, warm \T\ dry. Musculoskeletal: Circulation, motion, and sensation intact. Range of motion: intact in all extremities, Swelling absent. Vital Signs: 10:35 BP 108 / 72; Pulse 87; Resp 15; Temp 97.5(TE); Pulse Ox 100% on R/A; Weight 94.8 kg; ss Height 5 ft. 5 in. (165.10 cm); Pain 0/10; 10:35 Body Mass Index 34.78 (94.80 kg, 165.10 cm) ss ED Course: 10:26 Patient arrived in ED. mr 10:26 Milton Novak MD is Private Physician. mr 10:27 [facility] jmm 10:27 Luciano Batista MD is Attending Physician. m 10:35 Triage completed. ss 10:35 Arm band placed on right wrist. ss 10:37 Patient has correct armband on for positive identification. Bed in low position. Call ss light in reach. 10:50 Gabino Iraheta DPM is Referral Physician. [facility] 10:50 Daniel Hill MD is Referral Physician. [facility] 10:50 Referral Physician role handed off by Gabino Iraheta DPM [facility] 10:50 Referral Physician role handed off by Daniel Hill MD m 10:50 Gregory Soto MD is Referral Physician. m 11:23 No provider procedures requiring assistance completed. Patient did not have IV access ss during this emergency room visit. Administered Medications: No medications were administered Outcome: 10:51 Discharge ordered by . jmm 11:23 Discharged to home ambulatory. ss 11:23 Condition: good 11:23 Discharge instructions given to patient, family, Instructed on discharge instructions, follow up and referral plans. medication usage, Demonstrated understanding of instructions, follow-up care, medications, Prescriptions given X 1. 11:23 Patient left the ED. ss Signatures: Dar Leon PA PA jmm Rivera, Maria mr Smirch, Shelby, RN RN ss
--- NOTE | 2018-07-07 10:51 | EDPHYS ---
Physician Documentation [facility] Name: Nicolasa Rose Age: 23 yrs Sex: Female : 1995 Arrival Date: 07/07/2018 Time: 10:26 Bed 23 Private MD: Milton Novak ED Physician Luciano Batista HPI: 07/07 10:46 This 23 yrs old Female presents to ER via Ambulatory with complaints of Foot jmm Pain. 10:46 The patient presents with pain, that is acute. The complaints affect the right foot and jmm left foot. Onset: The symptoms/episode began/occurred gradually, 3 week(s) ago. Associated signs and symptoms: Pertinent negatives fever. This is a 23 year old female with a history of anxiety that presents to the ED with foot pain ongoing for the past 3 weeks. 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 Patient states symptoms are worse in the morning. Denies known injury. Denies fever. Symptoms are localized to the plantar surface of both feet. Pain radiates to her ankles. . Historical: - Allergies: 10:35 Abilify; ss 10:35 PENICILLINS; ss - Home Meds: 10:35 None [Active]; ss - PMHx: 10:35 Depression; Anxiety; ss - PSHx: 10:35 None; ss - Immunization history:: Adult Immunizations up to date. - Social history:: Smoking status: Patient/guardian denies using tobacco. - Ebola Screening: : Patient denies exposure to infectious person Patient denies travel to an Ebola-affected area in the 21 days before illness onset. ROS: 10:46 Constitutional: Negative for fever, chills, and weight loss. jmm 10:46 MS/extremity: Positive for pain, Negative for injury or acute deformity. 10:46 All other systems are negative. Exam: 10:46 Head/Face: atraumatic. Eyes: EOMI, no conjunctival erythema appreciated Neck: jmm Trachea midline, Supple Chest/axilla: Normal chest wall appearance and motion. Cardiovascular: Regular rate and rhythm. No edema appreciated Respiratory: Normal respirations, no respiratory distress appreciated 10:46 Constitutional: The patient appears in no acute distress, alert, awake. 10:46 Musculoskeletal/extremity: FROM appreciated to the ankle bilaterally, pain elicited on jmm palpation of the plantar surface of both feet, no erythema or indurations appreciated, full dorsalis pedis pulse, compartments are soft, NVI. 10:46 Skin: Appearance: Color: normal in color. [facility] 10:46 Neuro: Orientation: is normal, Mentation: is normal, Memory: is normal. 10:46 Psych: Behavior/mood is pleasant, cooperative. Vital Signs: 10:35 BP 108 / 72; Pulse 87; Resp 15; Temp 97.5(TE); Pulse Ox 100% on R/A; Weight 94.8 kg; ss Height 5 ft. 5 in. (165.10 cm); Pain 0/10; 10:35 Body Mass Index 34.78 (94.80 kg, 165.10 cm) ss MDM: 10:46 Patient medically screened. [facility] 10:46 Data reviewed: vital signs, nurses notes. Counseling: I had a detailed discussion with brook the patient and/or guardian regarding: the historical points, exam findings, and any diagnostic results supporting the discharge/admit diagnosis, the need for outpatient follow up, to return to the emergency department if symptoms worsen or persist or if there are any questions or concerns that arise at home. 10:46 Data interpreted: Pulse oximetry: on room air is 100 %. Interpretation: normal. [facility] Administered Medications: No medications were administered Disposition: 15:44 Co-signature as Attending Physician, Luciano Batista MD. rn Disposition: 07/07/18 10:51 Discharged to Home. Impression: Pain in left foot, Pain in right foot. - Condition is Stable. - Discharge Instructions: Plantar Fasciitis. - Prescriptions for Ibuprofen 800 mg Oral Tablet - take 1 tablet by ORAL route every 8 hours As needed take with food; 30 tablet. - Work release form, Medication Reconciliation Form, Thank You Letter, Antibiotic Education, Prescription Opioid Use form. - Follow up: Gabino Iraheta DPM; When: As needed; Reason: Recheck today's complaints, Continuance of care, Re-evaluation by your physician. Follow up: Daniel Hill MD; When: As needed; Reason: Recheck today's complaints, Continuance of care, Re-evaluation by your physician. Follow up: Gregory Soto MD; When: As needed; Reason: Recheck today's complaints, Continuance of care, Re-evaluation by your physician. Signatures: Dar Leon PA PA jmm Batista, Luciano, MD MD rn Felisa Domingo RN RN ss Corrections: (The following items were deleted from the chart) 11:23 10:51 07/07/2018 10:51 Discharged to Home. Impression: Pain in left foot; Pain in right ss foot. Condition is Stable. Forms are Medication Reconciliation Form, Thank You Letter, Antibiotic Education, Prescription Opioid Use. Follow up: Gregory Soto; When: As needed; Reason: Recheck today's complaints, Continuance of care, Re-evaluation by your physician. brook
[2018-07-07 11:27] VITALS: BP 108/72; TEMP 97.5; O2SAT 100
== END 2018-07-07 11:23 | disposition home or self-care (01) ==
LOC: ER 10:22
DX: M79.671 Pain in right foot (principal); Z88.0 Allergy status to penicillin; Z88.8 Allergy status to other drugs, medicaments and biological substances
CPT/HCPCS: 99282

== ENCOUNTER 2018-08-20 20:57 | Emergency (ER) | payer OTHER ==
--- OUTSIDE RECORDS SUMMARY | 2018-08-20 21:00 | XMS REPORT ---
[...] Start Date End Date Status Dosage Diflucan [facility] [id number] 150 MG Orally March 16, Active 1 tablet Take one now and 2018 repeat dose in 72h Results No Known Results Summary Purpose eClinicalWorks Submission
--- OUTSIDE RECORDS SUMMARY | 2018-08-20 21:00 | XMS REPORT ---
:1995 Author Organization eClinicalWorks Care Team Providers Name Role Phone Nuyr Rose Provider Role Unavailable Allergies No Known [...]
[2018-08-20] MEDS ORDERED: IBUPROFEN 400 MG TAB ONE (21:59)
[2018-08-20 22:07] LABS: Urine Blood 2+ (NEG); Urine Glucose NEGATIVE (NEG); Urine Protein NEGATIVE (NEG); Urine Specific Gravity 1.025 (1.005-1.030)
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
[2018-08-21 02:10] VITALS: TEMP 98.1; O2SAT 100
[2018-08-21 02:15] VITALS: BP 110/78
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
== END 2018-08-20 23:18 | disposition home or self-care (01) ==
LOC: ER 20:57
DX: M25.562 Pain in left knee (principal); V49.40XA Driver injured in collision with unspecified motor vehicles in traffic accident, initial encounter
CPT/HCPCS: 81003; 81025; 99284

== ENCOUNTER 2018-11-07 14:12 | Emergency (ER) | payer OTHER ==
--- OUTSIDE RECORDS SUMMARY | 2018-11-07 14:17 | XMS REPORT ---
[...] Date End Date Status Dosage Diflucan [facility] [id number] 150 MG Orally March 16, Active 1 tablet Take one now and 2018 repeat dose in 72h Results No Known Results Summary Purpose eClinicalWorks Submission
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
--- OUTSIDE RECORDS SUMMARY | 2018-11-07 14:18 | XMS REPORT ---
:1995 Author Organization e[employer]Works Care Team Providers Name Role Phone Jj Soledad Provider Role Unavailable Allergies, Adverse Reactions, Alerts Substance Reaction Event Type PCN Rash Drug Allergy Abilify Rash Drug Allergy Problems Problem Type Condition Code Onset Dates Condition Status Problem Obesity affecting in O99.213 Active third trimester Problem Multigravida in third trimester Z34.83 Active Problem Seasonal allergies J30.2 Active Assessment Allergic rhinitis, unspecified J30.9 Active seasonality, unspecified trigger Medications Medication Code System Code Instructions Start End Date Status Dosage Date Flonase NDC 09644262346 50 MCG/ACT Sep 18, Active 2 sprays Nasally Once a 2018 each day nostril prn [place]olia NDC 0 Active not defined Results No Known Results Summary Purpose eClinicalWorks Submission
[2018-11-07] MEDS ORDERED: IBUPROFEN 400 MG TAB ONE (14:56)
[2018-11-07] MEDS ORDERED: IBUPROFEN 200 MG TAB PO ONE (14:57)
--- NOTE | 2018-11-07 15:53 | EDPHYS ---
Physician Documentation [facility] Name: Nicolasa Rose Age: 23 yrs Sex: Female : 1995 Arrival Date: 11/07/2018 Time: 14:14 Bed 25 Private MD: Milton Novak ED Physician Meir Knox HPI: 11/07 14:33 This 23 yrs old Female presents to ER via Ambulatory with complaints of Wrist cp Injury. 14:33 The patient or guardian reports pain, tenderness. The complaints affect the left wrist cp diffusely. 14:33 Context: resulted from lifting or pulling, a heavy object. cp 14:33 Onset: The symptoms/episode began/occurred today. Associated signs and symptoms: cp Pertinent negatives: cyanosis distally, decreased sensation distally, numbness distally. 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 - Social history:: Smoking status: Patient/guardian denies using tobacco. - Ebola Screening: : Patient denies travel to an Ebola-affected area in the 21 days before illness onset. ROS: 14:33 Eyes: Negative for injury, pain, redness, and discharge. cp 14:33 Constitutional: Negative for body aches, chills, fever, poor PO intake. 14:33 Cardiovascular: Negative for chest pain. 14:33 Respiratory: Negative for cough, wheezing. 14:33 Abdomen/GI: Negative for abdominal pain, vomiting, diarrhea, constipation. 14:33 MS/extremity: Positive for pain, tenderness, of the left wrist, Negative for deformity, paresthesias. 14:33 Skin: Negative for cellulitis, rash. 14:33 All other systems are negative. Exam: 14:40 Constitutional: The patient appears in no acute distress, alert, awake, well developed, cp well nourished. 14:40 Head/Face: Normocephalic, atraumatic. cp 14:40 Eyes: Periorbital structures: appear normal, Conjunctiva: normal, no exudate, no injection, Lids and lashes: appear normal, bilaterally. 14:40 ENT: External ear(s): are unremarkable, Nose: is normal, Mouth: is normal, Posterior pharynx: Airway: no evidence of obstruction, patent. 14:40 Chest/axilla: Inspection: normal. 14:40 Cardiovascular: Rate: normal. 14:40 Respiratory: the patient does not display signs of respiratory distress, Respirations: normal, no use of accessory muscles, no retractions, no splinting, no tachypnea, labored breathing, is not present. 14:40 Abdomen/GI: Inspection: abdomen appears normal. 14:40 Musculoskeletal/extremity: Extremities: grossly normal except: noted in the medial aspect left wrist: pain, tenderness, ROM: limited passive range of motion due to pain, in the left wrist, Perfusion: the extremity is normally perfused throughout, Sensation intact. Vital Signs: 14:17 BP 95 / 61; Pulse 73; Resp 18; Temp 97.0(TE); Pulse Ox 100% on R/A; Weight 92.99 kg tw2 (R); Height 5 ft. 5 in. (165.10 cm); Pain 7/10; 14:17 Body Mass Index 34.11 (92.99 kg, 165.10 cm) tw2 MDM: 14:22 Patient medically screened. cp 15:00 Differential diagnosis: dislocation, closed fracture, contusion. cp 15:50 Data reviewed: vital signs, nurses notes, radiologic studies, plain films. cp 15:50 Test interpretation: by ED physician or midlevel provider: plain radiologic studies. cp Counseling: I had a detailed discussion with the patient and/or guardian regarding: the historical points, exam findings, and any diagnostic results supporting the discharge/admit diagnosis, radiology results, to return to the emergency department if symptoms worsen or persist or if there are any questions or concerns that arise at home. Response to treatment: the patient's symptoms have mildly improved after treatment, and as a result, I will discharge patient. 11/07 14:28 Order name: XRAY Wrist LEFT 3 view cp 11/07 15:14 Order name: Wrist Splint: left; Complete Time: 15:26 cp Administered Medications: 14:48 Drug: Ibuprofen 800 mg Route: PO; tl3 15:53 Follow up: Response: No adverse reaction; Pain is decreased tl3 15:52 Not Given (Physician Discretion): prednisoLONE Liquid 1 mg/kg PO once cp Disposition: 18:24 Co-signature as Attending Physician, Meir Knox MD. ma2 Disposition: 11/07/18 15:51 Discharged to Home. Impression: Pain in left wrist. - Condition is Stable. - Discharge Instructions: Wrist Pain. - Prescriptions for Naprosyn 500 mg Oral Tablet - take 1 tablet by ORAL route 2 times per day take with food; 20 tablet. - Medication Reconciliation Form, Thank You Letter, Antibiotic Education, Prescription Opioid Use form. - Follow up: Private Physician; When: 1 week; Reason: Recheck today's complaints, if pain continues. - Problem is new. - Symptoms have improved. Signatures: Dispatcher [employer] EDMS Kenny Tucker PA PA cp Ashanti Villalobos RN RN 2 Meir Knox MD MD ky2 Lizzie Guillory, OWEN RN tl3 Corrections: (The following items were deleted from the chart) 16:07 15:51 11/07/2018 15:51 Discharged to Home. Impression: Pain in left wrist. Condition is tl3 Stable. Forms are Medication Reconciliation Form, Thank You Letter, Antibiotic Education, Prescription Opioid Use. Follow up: Private Physician; When: 1 week; Reason: Recheck today's complaints, if pain continues. Problem is new. Symptoms have improved. cp
--- NOTE | 2018-11-07 15:53 | ER ---
Nurse's Notes [facility] Name: Nicolasa Rose Age: 23 yrs Sex: Female : 1995 Arrival Date: 11/07/2018 Time: 14:14 Bed 25 Private MD: Milton Novak Diagnosis: Pain in left wrist Presentation: 11/07 14:15 Presenting complaint: Patient states: i was moving and i put pressure on my LEFT wrist, tw2 just about 30 minutes ago and now its starting to feel stiff. Transition of care: patient was not received from another setting of care. Onset of symptoms was November 07, 2018. Risk Assessment: Do you want to hurt yourself or someone else? Patient reports no desire to harm self or others. Initial Sepsis Screen: Does the patient meet any 2 criteria? No. Patient's initial sepsis screen is negative. Does the patient have a suspected source of infection? No. Patient's initial sepsis screen is negative. Care prior to arrival: None. 14:15 Method Of Arrival: Ambulatory tw2 14:15 Acuity: ROSENDO 4 tw2 Triage Assessment: 14:17 General: Appears in no apparent distress. obese, Behavior is calm, cooperative, tw2 appropriate for age. Pain: Complains of pain in left wrist. Musculoskeletal: Circulation, motion, and sensation intact. Injury Description: "put pressure on it wrong", pt denies falling. 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 - Social history:: Smoking status: Patient/guardian denies using tobacco. - Ebola Screening: : Patient denies travel to an Ebola-affected area in the 21 days before illness onset. Screenin:32 Abuse screen: Denies threats or abuse. Nutritional screening: No deficits noted. tl3 Tuberculosis screening: No symptoms or risk factors identified. Fall Risk None identified. Assessment: 14:32 General: Appears in no apparent distress. well developed, well nourished, Behavior is tl3 calm, cooperative, appropriate for age. Pain: Complains of pain in left wrist Pain currently is 5 out of 10 on a pain scale. at worst was 10 out of 10 on a pain scale. Neuro: Level of Consciousness is awake, alert, obeys commands, Oriented to person, place, time, situation, Appropriate for age. Cardiovascular: Capillary refill < 3 seconds in left fingers Patient's skin is warm and dry. Respiratory: Airway is patent. GI: No deficits noted. : No signs and/or symptoms were reported regarding the genitourinary system. EENT: No signs and/or symptoms were reported regarding the EENT system. Derm: Bruising that is on left wrist. Musculoskeletal: Range of motion: intact in all extremities, Swelling present in left wrist. Injury Description: pt was being held by her legs to berry picker a phone that had dropped behind some items in a storage facility when she fell onto and twisted her left wrist. 16:06 Reassessment: Patient appears in no apparent distress at this time. No changes from tl3 previously documented assessment. Patient and/or family updated on plan of care and expected duration. Pain level reassessed. Patient is alert, oriented x 3, equal unlabored respirations, skin warm/dry/pink. Splint applied, cap refill within 2sec, able to move all fingers freely. Vital Signs: 14:17 BP 95 / 61; Pulse 73; Resp 18; Temp 97.0(TE); Pulse Ox 100% on R/A; Weight 92.99 kg tw2 (R); Height 5 ft. 5 in. (165.10 cm); Pain 7/10; 14:17 Body Mass Index 34.11 (92.99 kg, 165.10 cm) tw2 ED Course: 14:14 Patient arrived in ED. sb2 14:14 Milton Novak MD is Private Physician. sb2 14:16 Triage completed. tw2 14:18 Arm band placed on. tw2 14:21 Lizzie Guillory, OWEN is Primary Nurse. tl3 14:22 Kenny Tucker PA is PHCP. cp 14:22 Meir Knox MD is Attending Physician. cp 14:32 Patient has correct armband on for positive identification. Bed in low position. Adult tl3 w/ patient. 14:32 No provider procedures requiring assistance completed. Patient did not have IV access tl3 during this emergency room visit. 15:03 XRAY Wrist LEFT 3 view In Process Unspecified. EDMS Administered Medications: 14:48 Drug: Ibuprofen 800 mg Route: PO; tl3 15:53 Follow up: Response: No adverse reaction; Pain is decreased tl3 15:52 Not Given (Physician Discretion): prednisoLONE Liquid 1 mg/kg PO once cp Outcome: 15:51 Discharge ordered by MD. cp 16:06 Discharged to home ambulatory. tl3 16:06 Condition: stable 16:06 Discharge instructions given to patient, Instructed on discharge instructions, follow up and referral plans. medication usage, Demonstrated understanding of instructions, follow-up care, medications, Prescriptions given X 1. 16:07 Patient left the ED. tl3 Signatures: Dispatcher [employer] EDMS Kenny Tucker PA PA cp Wise, Tara RN RN tw2 Saundra Santiago sb2 Lizzie Guillory, RN RN tl3
[2018-11-07 16:28] VITALS: BP 95/61; TEMP 97; O2SAT 100
--- NOTE | 2018-11-07 17:47 | RAD REPORT ---
EXAM DESCRIPTION: RAD - Wrist Left 3 View - 11/07/2018 3:01 pm CLINICAL HISTORY: Wrist pain, lifting injury COMPARISON: None. FINDINGS: No fracture is identified. There is no dislocation or periosteal reaction noted. No foreig n body or other soft tissue abnormality. IMPRESSION: Negative left wrist examination.
== END 2018-11-07 16:07 | disposition home or self-care (01) ==
LOC: ER 14:12
DX: M25.532 Pain in left wrist (principal); Z88.0 Allergy status to penicillin; Z88.8 Allergy status to other drugs, medicaments and biological substances
CPT/HCPCS: 99283

== ENCOUNTER 2018-12-13 16:15 | Emergency (ER) | payer SELFPAY ==
[2012-06-17 16:25] VITALS: BP 121/72
--- OUTSIDE RECORDS SUMMARY | 2018-12-13 16:17 | XMS REPORT ---
[...] Date End Date Status Dosage Diflucan [facility] 80495761733 150 MG Orally March 16, Active 1 tablet Take one now and 2018 repeat dose in 72h Results No Known Results Summary Purpose eClinicalWorks Submission
--- OUTSIDE RECORDS SUMMARY | 2018-12-13 16:18 | XMS REPORT ---
[...] End Date Status Dosage Date Flonase NDC 65915069826 50 MCG/ACT Sep 18, Active 2 sprays Nasally Once a 2018 each day nostril prn [place]olia NDC 0 Active not defined Results No Known Results Summary Purpose eClinicalWorks Submission
--- NOTE | 2018-12-13 17:00 | ER ---
Nurse's Notes [facility] Name: Nicolasa Rose Age: 23 yrs Sex: Female : 1995 Arrival Date: 12/13/2018 Time: 16:15 Bed Waiting [facility] MD: Diagnosis: Presentation: 12/13 17:00 Note eloped at 1635 d/t wait in ER at this time. tw2 ED Course: 16:15 Patient arrived in ED. ds1 Administered Medications: No medications were administered Outcome: 17:00 Patient left the ED. tw2 Signatures: Xochitl Hayes ds1 Ashanti Villalobos RN RN tw2
== END 2018-12-13 17:00 | disposition left against medical advice (07) ==
LOC: ER 16:15
DX: Z53.21 Procedure and treatment not carried out due to patient leaving prior to being seen by health care provider (principal)

== ENCOUNTER 2018-12-14 08:51 | Emergency (ER) | payer OTHER ==
--- OUTSIDE RECORDS SUMMARY | 2018-12-14 08:56 | XMS REPORT ---
[...] End Date Status Dosage Date Flonase NDC 60540304753 50 MCG/ACT Sep 18, Active 2 sprays Nasally Once a 2018 each day nostril prn [place]olia NDC 0 Active not defined Results No Known Results Summary Purpose eClinicalWorks Submission
--- OUTSIDE RECORDS SUMMARY | 2018-12-14 08:56 | XMS REPORT ---
[...] Start Date End Date Status Dosage Diflucan [facility] 32815511685 150 MG Orally March 16, Active 1 tablet Take one now and 2018 repeat dose in 72h Results No Known Results Summary Purpose eClinicalWorks Submission
--- NOTE | 2018-12-14 10:59 | EDPHYS ---
Physician Documentation [facility] Name: Nicolasa Rose Age: 23 yrs Sex: Female : 1995 Arrival Date: 12/14/2018 Time: 08:56 Bed 11 Private MD: Milton Novak ED Physician Alejandro Rai HPI: 12/14 09:33 This 23 yrs old Female presents to ER via Unassigned with complaints of Flu kav Symptoms. 10:27 Onset: The symptoms/episode began/occurred acutely, 1 day(s) ago. Associated signs and kav symptoms: The patient has no apparent associated signs or symptoms. Modifying factors: The patient symptoms are alleviated by nothing, the patient symptoms are aggravated by nothing. The patient has not experienced similar symptoms in the past. The patient has not recently seen a physician. Exposure to sick contact with Influenza. 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 - Social history:: Smoking status: Patient/guardian denies using tobacco. - Ebola Screening: : Patient negative for fever greater than or equal to 101.5 degrees Fahrenheit, and additional compatible Ebola Virus Disease symptoms Patient denies exposure to infectious person Patient denies travel to an Ebola-affected area in the 21 days before illness onset No symptoms or risks identified at this time. - Family history:: not pertinent. - Hospitalizations: : No recent hospitalization is reported. ROS: 10:27 Constitutional: Negative for fever, chills, and weight loss, Eyes: Negative for injury, kav pain, redness, and discharge, ENT: Negative for injury, pain, and discharge, Neck: Negative for injury, pain, and swelling, Cardiovascular: Negative for chest pain, palpitations, and edema, Abdomen/GI: Negative for abdominal pain, nausea, vomiting, diarrhea, and constipation, Back: Negative for injury and pain, : Negative for injury, bleeding, discharge, and swelling, MS/Extremity: Negative for injury and deformity, Skin: Negative for injury, rash, and discoloration, Neuro: Negative for headache, weakness, numbness, tingling, and seizure, Psych: Negative for depression, anxiety, suicide ideation, homicidal ideation, and hallucinations, Allergy/Immunology: Negative for hives, rash, and allergies, Endocrine: Negative for neck swelling, polydipsia, polyuria, polyphagia, and marked weight changes, Hematologic/Lymphatic: Negative for swollen nodes, abnormal bleeding, and unusual bruising. 10:27 Respiratory: Positive for cough, with no reported sputum. Exam: 10:27 Constitutional: This is a well developed, well nourished patient who is awake, alert, kav and in no acute distress. Head/Face: Normocephalic, atraumatic. Eyes: Pupils equal round and reactive to light, extra-ocular motions intact. Lids and lashes normal. Conjunctiva and sclera are non-icteric and not injected. Cornea within normal limits. Periorbital areas with no swelling, redness, or edema. ENT: Nares patent. No nasal discharge, no septal abnormalities noted. Tympanic membranes are normal and external auditory canals are clear. Oropharynx with no redness, swelling, or masses, exudates, or evidence of obstruction, uvula midline. Mucous membranes moist. Neck: Trachea midline, no thyromegaly or masses palpated, and no cervical lymphadenopathy. Supple, full range of motion without nuchal rigidity, or vertebral point tenderness. No Meningismus. Chest/axilla: Normal chest wall appearance and motion. Nontender with no deformity. No lesions are appreciated. Cardiovascular: Regular rate and rhythm with a normal S1 and S2. No gallops, murmurs, or rubs. Normal PMI, no JVD. No pulse deficits. Abdomen/GI: Soft, non-tender, with normal bowel sounds. No distension or tympany. No guarding or rebound. No evidence of tenderness throughout. Back: No spinal tenderness. No costovertebral tenderness. Full range of motion. Skin: Warm, dry with normal turgor. Normal color with no rashes, no lesions, and no evidence of cellulitis. MS/ Extremity: Pulses equal, no cyanosis. Neurovascular intact. Full, normal range of motion. Neuro: Awake and alert, GCS 15, oriented to person, place, time, and situation. Cranial nerves II-XII grossly intact. Motor strength 5/5 in all extremities. Sensory grossly intact. Cerebellar exam normal. Normal gait. Psych: Awake, alert, with orientation to person, place and time. Behavior, mood, and affect are within normal limits. 10:27 Respiratory: the patient does not display signs of respiratory distress, Respirations: normal, no acute changes, Breath sounds: are clear throughout, no acute changes, throughout. Vital Signs: 09:42 BP 93 / 72; Pulse 120; Resp 16; Temp 97.6(TE); Pulse Ox 98% on R/A; iw MDM: 09:26 Medical screening is not applicable. kav 10:58 Data reviewed: vital signs, nurses notes, lab test result(s), Flu: positive. kav Counseling: I had a detailed discussion with the patient and/or guardian regarding: the historical points, exam findings, and any diagnostic results supporting the discharge/admit diagnosis, lab results. 12/14 09:53 Order name: Flu; Complete Time: 10:58 kav 12/14 10:58 Interpretation: Abnormal. kav Administered Medications: No medications were administered Disposition: 14:57 Co-signature as Attending Physician, Alejandro Rai MD I agree with the assessment and kdr plan of care. Disposition: 12/14/18 10:59 Discharged to Home. Impression: Influenza due to identified novel influenza A virus. - Condition is Stable. - Prescriptions for Tamiflu 75 mg Oral Capsule - take 1 tablet by ORAL route every 12 hours for 5 days; 10 tablet. - Thank You Letter, Antibiotic Education, Work release form form. - Follow up: Milton Novak MD; When: 5 - 6 days; Reason: Recheck today's complaints, Continuance of care, Re-evaluation by your physician. - Problem is new. - Symptoms are unchanged. Signatures: Dispatcher [employer] EDIL Alejandro Rai MD MD kdr Vern, Katherine, HYDRAULIC CORRUGATING MACHINE OPERATOR HYDRAULIC CORRUGATING MACHINE OPERATOR Nallely Paniagua, OWEN RN iw Nicole Andrade RN RN Corrections: (The following items were deleted from the chart) 11:23 10:59 12/14/2018 10:59 Discharged to Home. Impression: Influenza due to identified hb novel influenza A virus. Condition is Stable. Forms are Medication Reconciliation Form, Thank You Letter, Antibiotic Education, Prescription Opioid Use. Follow up: Milton Novak; When: 5 - 6 days; Reason: Recheck today's complaints, Continuance of care, Re-evaluation by your physician. Problem is new. Symptoms are unchanged. chrissy
--- NOTE | 2018-12-14 10:59 | ER ---
Nurse's Notes [facility] Name: Nicolasa Rose Age: 23 yrs Sex: Female : 1995 Arrival Date: 12/14/2018 Time: 08:56 Bed 11 Private MD: Milton Novak Diagnosis: Influenza due to identified novel influenza A virus Presentation: 12/14 09:40 Presenting complaint: Patient states: fever, chills, body aches since yesterday, oldest iw daughter tested positive for flu recently. Transition of care: patient was not received from another setting of care. Onset of symptoms was December 13, 2018. Risk Assessment: Do you want to hurt yourself or someone else? Patient reports no desire to harm self or others. Initial Sepsis Screen: Does the patient meet any 2 criteria? No. Patient's initial sepsis screen is negative. Does the patient have a suspected source of infection? No. Patient's initial sepsis screen is negative. Care prior to arrival: None. 09:40 Method Of Arrival: Ambulatory iw 09:40 Acuity: ROSENDO 4 iw Triage Assessment: 10:10 General: Appears in no apparent distress. Behavior is calm. iw REHAB AIDE: 09:42 LMP 12/14/2018 iw Historical: - Allergies: 09:42 Abilify; iw 09:42 PENICILLINS; iw - Home Meds: 09:42 None [Active]; iw - PMHx: 09:42 Anxiety; Depression; iw - Immunization history:: Adult Immunizations not up to date. - Social history:: Smoking status: Patient/guardian denies using tobacco. - Ebola Screening: : Patient negative for fever greater than or equal to 101.5 degrees Fahrenheit, and additional compatible Ebola Virus Disease symptoms Patient denies exposure to infectious person Patient denies travel to an Ebola-affected area in the 21 days before illness onset No symptoms or risks identified at this time. - Family history:: not pertinent. - Hospitalizations: : No recent hospitalization is reported. Screenin:20 Abuse screen: Denies threats or abuse. Denies injuries from another. Nutritional iw screening: No deficits noted. Tuberculosis screening: No symptoms or risk factors identified. Fall Risk None identified. Assessment: 10:50 General: Appears in no apparent distress. Behavior is calm, cooperative. Pain: iw Complains of pain in body aches. Neuro: Level of Consciousness is awake, alert, obeys commands, Oriented to person, place, time. Cardiovascular: Patient's skin is warm and dry. Vital Signs: 09:42 BP 93 / 72; Pulse 120; Resp 16; Temp 97.6(TE); Pulse Ox 98% on R/A; iw ED Course: 08:56 Patient arrived in ED. rg4 08:56 Vickey Valdez MD is Private Physician. rg4 08:58 Milton Nvoak MD is Private Physician. rg4 09:26 Jazmyn Aquino FNP is [facility]. kav 09:26 Alejandro Rai MD is Attending Physician. kav 09:39 Nallely Raphael, OWEN is Primary Nurse. iw 09:42 Triage completed. iw 09:43 Arm band placed on. iw 10:58 Milton Novak MD is Referral Physician. kav 10:59 Patient has correct armband on for positive identification. iw 11:22 Patient did not have IV access during this emergency room visit. iw 11:23 No provider procedures requiring assistance completed. iw Administered Medications: No medications were administered Outcome: 10:59 Discharge ordered by MD. kav 11:22 Discharged to home ambulatory, with family. hb 11:22 Condition: stable 11:22 Discharge instructions given to patient, family, Instructed on discharge instructions, follow up and referral plans. medication usage, Demonstrated understanding of instructions, follow-up care, medications, Prescriptions given X 1. 11:23 Patient left the ED. hb Signatures: Jazmyn Aquino FNP FNP kav Williams, Irene, RN RN iw [facility], Heather, RN RN hb Garcia, Rubi rg4
[2018-12-14 11:42] VITALS: BP 93/72; TEMP 97.6; O2SAT 98
== END 2018-12-14 11:23 | disposition home or self-care (01) ==
LOC: ER 08:51
DX: J10.1 Influenza due to other identified influenza virus with other respiratory manifestations (principal); Z88.0 Allergy status to penicillin; Z88.8 Allergy status to other drugs, medicaments and biological substances
CPT/HCPCS: 87804; 99282

== ENCOUNTER 2019-01-14 22:33 | Emergency (ER) | payer OTHER ==
--- OUTSIDE RECORDS SUMMARY | 2019-01-14 22:37 | XMS REPORT ---
[...] Start Date End Date Status Dosage Diflucan [facility] [id number] 150 MG Orally March 16, Active 1 tablet Take one now and 2018 repeat dose in 72h Results No Known Results Summary Purpose eClinicalWorks Submission
--- OUTSIDE RECORDS SUMMARY | 2019-01-14 22:37 | XMS REPORT ---
[...] End Date Status Dosage Date Flonase NDC [id number] 50 MCG/ACT Sep 18, Active 2 sprays Nasally Once a 2018 each day nostril prn [place] NDC 0 Active not defined Results No Known Results Summary Purpose eClinicalWorks Submission
[2019-01-15 00:07] LABS: Urine Blood NEGATIVE (NEG); Urine Glucose NEGATIVE (NEG); Urine Protein 1+ (NEG); Urine Specific Gravity >1.030 (1.005-1.030); Urine pH 5.5 (5.0-7.0)
[2019-01-15 00:13] LABS: Absolute Lymphocytes (CBC) 1.7 K/uL (0.7-4.9); Absolute Monocytes 0.6 K/uL (0.1-1.3); Absolute Neutrophil 5.2 K/uL (1.8-8.0); Basophils % 0.8 % (0-1.3); Eosinophils % 0.6 % (0-4.4); Hematocrit 38.6 % (36.0-45.0); Lymphocytes % 22.7 % (15.3-44.8); MPV 8.6 fL (7.6-11.3); Monocytes % 7.3 % (3.3-12.3); RBC Red Blood Cell Count 4.41 M/uL (3.86-4.86)
[2019-01-15 00:36] LABS: ALT/SGPT 21 U/L (12-78); AST/SGOT 12 U/L (15-37); Albumin 3.8 g/dL (3.4-5.0); Alkaline Phosphatase 67 U/L (45-117); BUN Blood Urea Nitrogen 11 mg/dL (7-18); Bicarbonate 27 mmol/L (21-32); Bilirubin Direct 0.1 mg/dL (0-0.2); Bilirubin Total 0.4 mg/dL (0.2-1.0); Glucose Level 94 mg/dL (74-106); Lipase 91 U/L (73-393); Protein, Total 7.2 g/dL (6.4-8.2); Sodium Level 143 mmol/L (136-145)
[2019-01-15 00:38] LABS: Urine Bacteria 20-50 /HPF (<20); Urine Culture Reflex Order REFLEXED; Urine Mucus HEAVY /HPF (NONE SEEN); Urine RBC <5 /HPF (NONE SEEN)
--- NOTE | 2019-01-15 03:08 | EDPHYS ---
Physician Documentation [facility] Name: Nicolasa Rose Age: 23 yrs Sex: Female : 1995 Arrival Date: 01/14/2019 Time: 22:52 Bed 5 Private MD: ED Physician Michael Fox HPI: 01/15 00:00 This 23 yrs old Female presents to ER via Ambulatory with complaints of pm1 Pelvic Pain. 00:00 The patient presents with abdominal pain suprapubic area. pm1 00:00 Onset: The symptoms/episode began/occurred yesterday. The symptoms do not radiate. pm1 Associated signs and symptoms: Pertinent positives: vaginal discharge, Pertinent negatives: nausea, vomiting, and diarrhea, chest pain, dysuria, fever, shortness of breath. The symptoms are described as sharp. Modifying factors: The symptoms are alleviated by nothing, the symptoms are aggravated by nothing. Severity of pain: in the emergency department the pain is a 8 / 10. The patient has experienced similar episodes in the past, a few times, today's symptoms are similar, to when the patient was apparently diagnosed with . The patient has not recently seen a physician. 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 - Social history:: Smoking status: Patient/guardian denies using tobacco. - Ebola Screening: : No symptoms or risks identified at this time. ROS: 01/15 00:00 Constitutional: Negative for fever, chills, and weight loss, Eyes: Negative for injury, pm1 pain, redness, and discharge, ENT: Negative for injury, pain, and discharge, Neck: Negative for injury, pain, and swelling, Cardiovascular: Negative for chest pain, palpitations, and edema, Respiratory: Negative for shortness of breath, cough, wheezing, and pleuritic chest pain. Back: Negative for injury and pain. MS/Extremity: Negative for injury and deformity, Skin: Negative for injury, rash, and discoloration, Neuro: Negative for headache, weakness, numbness, tingling, and seizure. Abdomen/GI: Positive for abdominal pain, of the suprapubic area, Negative for nausea, vomiting, and diarrhea. : Positive for vaginal discharge, Negative for burning with urination. Exam: 00:00 Constitutional: This is a well developed, well nourished patient who is awake, alert, pm1 and in no acute distress. Head/Face: Normocephalic, atraumatic. Eyes: Pupils equal round and reactive to light, extra-ocular motions intact. Lids and lashes normal. Conjunctiva and sclera are non-icteric and not injected. Cornea within normal limits. Periorbital areas with no swelling, redness, or edema. ENT: Nares patent. No nasal discharge, no septal abnormalities noted. Tympanic membranes are normal and external auditory canals are clear. Oropharynx with no redness, swelling, or masses, exudates, or evidence of obstruction, uvula midline. Mucous membranes moist. Neck: Trachea midline, no thyromegaly or masses palpated, and no cervical lymphadenopathy. Supple, full range of motion without nuchal rigidity, or vertebral point tenderness. No Meningismus. Chest/axilla: Normal chest wall appearance and motion. Nontender with no deformity. No lesions are appreciated. Cardiovascular: Regular rate and rhythm with a normal S1 and S2. No gallops, murmurs, or rubs. Normal PMI, no JVD. No pulse deficits. Respiratory: Lungs have equal breath sounds bilaterally, clear to auscultation and percussion. No rales, rhonchi or wheezes noted. No increased work of breathing, no retractions or nasal flaring. 00:00 Back: No spinal tenderness. No costovertebral tenderness. Full range of motion. Skin: Warm, dry with normal turgor. Normal color with no rashes, no lesions, and no evidence of cellulitis. MS/ Extremity: Pulses equal, no cyanosis. Neurovascular intact. Full, normal range of motion. 00:00 Abdomen/GI: Inspection: abdomen appears normal, Bowel sounds: normal, Palpation: soft, mild abdominal tenderness, in the suprapubic area, mass, is not appreciated, rebound tenderness, is not appreciated. 00:00 Neuro: Orientation: is normal, Motor: is normal, Sensation: is normal, no obvious gross deficits, Gait: is steady, at a normal pace, without difficulty. 03:15 : Pelvic Exam: External exam: is normal, Speculum exam: no bleeding is noted, no pm1 cervicitis, bimanual exam reveals normal findings, no cervical motion tenderness, discharge, Precious hernandez RN. Vital Signs: 01/14 23:15 BP 113 / 68; Pulse 89; Resp 16; Temp 98.3(O); Pulse Ox 100% on R/A; Weight 95.25 kg; lp1 Height 5 ft. 5 in. (165.10 cm); Pain 7/10; 01/15 00:15 BP 112 / 67; Pulse 78; Resp 16; Pulse Ox 100% on R/A; lp1 01:00 BP 106 / 69; Pulse 87; Resp 16; Pulse Ox 100% on R/A; lp1 02:00 BP 112 / 67; Pulse 78; Resp 16; Pulse Ox 100% on R/A; lp1 03:00 BP 106 / 69; Pulse 77; Resp 16; Pulse Ox 98% on R/A; Pain 2/10; lp1 01/14 23:15 Body Mass Index 34.95 (95.25 kg, 165.10 cm) lp1 MDM: 01/14 23:49 Patient medically screened. pm1 01/15 02:43 Data reviewed: vital signs. Data interpreted: Pulse oximetry: on room air is 100 %. pm1 Interpretation: normal. 03:06 Counseling: I had a detailed discussion with the patient and/or guardian regarding: the pm1 historical points, exam findings, and any diagnostic results supporting the discharge/admit diagnosis, lab results, radiology results, the need for outpatient follow up, to return to the emergency department if symptoms worsen or persist or if there are any questions or concerns that arise at home. 01/14 23:01 Order name: Urine Microscopic Only; Complete Time: 00:39 gs 01/14 23:27 Order name: Urine Dipstick--Ancillary (enter results) 2 01/14 23:27 Order name: Urine --Ancillary (enter results) [facility] 01/14 23:48 Order name: Basic Metabolic Panel pm1 01/14 23:48 Order name: CBC with Diff pm1 01/14 23:48 Order name: Creatinine for Radiology pm1 01/14 23:48 Order name: Hepatic Function pm1 01/14 23:48 Order name: Lipase; Complete Time: 00:38 pm1 01/14 23:49 Order name: Basic Metabolic Panel; Complete Time: 00:38 EDMS 01/14 23:49 Order name: CBC with Automated Diff; Complete Time: 00:28 EDMS 01/14 23:49 Order name: Creatinine (Radiology Only); Complete Time: 00:28 EDNY 01/14 23:49 Order name: Liver (Hepatic) Function; Complete Time: 00:38 EDMS 01/15 00:40 Order name: Urine Culture EDNY 01/15 03:04 Order name: GC Probe lp1 01/14 23:01 Order name: Urine Test (obtain specimen); Complete Time: 23:26 01/14 23:01 Order name: Urine Dipstick-Ancillary (obtain specimen); Complete Time: 23:26 01/14 23:48 Order name: IV Saline Lock; Complete Time: 00:20 pm1 01/14 23:48 Order name: Labs collected and sent; Complete Time: 00:21 pm1 01/14 23:48 Order name: CT Abd/Pelvis - W/Contrast: IV contrast only pm1 01/15 03:04 Order name: Wet Prep lp1 Administered Medications: 03:21 Drug: AZITHromycin 1 grams Route: PO; lp1 03:21 Follow up: Response: Medication administered at discharge. lp1 Disposition: 01/15/19 03:07 Discharged to Home. Impression: Unspecified abdominal pain. - Condition is Stable. - Discharge Instructions: Abdominal Pain, Adult. - Prescriptions for Flagyl 500 mg Oral Tablet - take 1 tablet by ORAL route every 12 hours for 7 days; 14 tablet. - Family Work Release, Medication Reconciliation Form, Thank You Letter, Antibiotic Education, Prescription Opioid Use form. - Follow up: Emergency Department; When: As needed; Reason: Worsening of condition. Follow up: Private Physician; When: 2 - 3 days; Reason: Recheck today's complaints, Continuance of care, Re-evaluation by your physician. - Problem is new. - Symptoms have improved. Signatures: Dispatcher [employer] EDMS Destiny Frank RN RN lp1 Sheng Muñoz, TUBE BUILDER AIRPLANE TUBE BUILDER AIRPLANE pm1 Michael Fox MD MD Corrections: (The following items were deleted from the chart) 03:34 03:07 01/15/2019 03:07 Discharged to Home. Impression: Unspecified abdominal pain. lp1 Condition is Stable. Forms are Medication Reconciliation Form, Thank You Letter, Antibiotic Education, Prescription Opioid Use. Follow up: Emergency Department; When: As needed; Reason: Worsening of condition. Follow up: Private Physician; When: 2 - 3 days; Reason: Recheck today's complaints, Continuance of care, Re-evaluation by your physician. Problem is new. Symptoms have improved. pm1
--- NOTE | 2019-01-15 03:08 | ER ---
Nurse's Notes [facility] Name: Nicolasa Rose Age: 23 yrs Sex: Female : 1995 Arrival Date: 01/14/2019 Time: 22:52 Bed 5 Private MD: Diagnosis: Unspecified abdominal pain Presentation: 01/14 23:13 Presenting complaint: Patient states: Pelvic pain that began yesterday, described as lp1 stabbing pain; States last time she had similar symptoms she was ; States some vaginal discharge; denies burning with urination, bleeding. Transition of care: patient was not received from another setting of care. Onset of symptoms was January 13, 2019. Risk Assessment: Do you want to hurt yourself or someone else? Patient reports no desire to harm self or others. Initial Sepsis Screen: Does the patient meet any 2 criteria? No. Patient's initial sepsis screen is negative. Does the patient have a suspected source of infection? No. Patient's initial sepsis screen is negative. Care prior to arrival: None. 23:13 Method Of Arrival: Ambulatory lp1 23:13 Acuity: ROSENDO 3 lp1 LEAD DATA ARCHITECT: 23:15 LMP 12/24/2018 lp1 Historical: - Allergies: 23:16 Abilify; lp1 23:16 PENICILLINS; lp1 - Home Meds: 23:16 None [Active]; lp1 - PMHx: 23:16 Anxiety; Depression; lp1 - PSHx: 23:16 None; lp1 - Immunization history:: Adult Immunizations up to date. - Social history:: Smoking status: Patient/guardian denies using tobacco. - Ebola Screening: : No symptoms or risks identified at this time. Screenin:16 Abuse screen: Denies threats or abuse. Denies injuries from another. Nutritional lp1 screening: No deficits noted. Tuberculosis screening: No symptoms or risk factors identified. Fall Risk None identified. Assessment: 23:17 General: Appears in no apparent distress. Behavior is quiet. Pain: Complains of pain in lp1 right inguinal area and left inguinal area Pain currently is 7 out of 10 on a pain scale. Quality of pain is described as stabbing. Neuro: Level of Consciousness is awake, alert, obeys commands. Cardiovascular: No deficits noted. Respiratory: No deficits noted. GI: No deficits noted. : Reports discharge, from vagina that is white, Denies burning with urination. EENT: No deficits noted. Derm: Skin is pink, warm \T\ dry. Musculoskeletal: No deficits noted. 01/15 01:30 Reassessment: Patient to CT. lp1 02:30 Reassessment: Patient appears in no apparent distress at this time. Patient and/or lp1 family updated on plan of care and expected duration. Pain level reassessed. Patient is alert, oriented x 3, equal unlabored respirations, skin warm/dry/pink. Vital Signs: 01/14 23:15 BP 113 / 68; Pulse 89; Resp 16; Temp 98.3(O); Pulse Ox 100% on R/A; Weight 95.25 kg; lp1 Height 5 ft. 5 in. (165.10 cm); Pain 7/10; 04 00:15 BP 112 / 67; Pulse 78; Resp 16; Pulse Ox 100% on R/A; lp1 01:00 BP 106 / 69; Pulse 87; Resp 16; Pulse Ox 100% on R/A; lp1 02:00 BP 112 / 67; Pulse 78; Resp 16; Pulse Ox 100% on R/A; lp1 03:00 BP 106 / 69; Pulse 77; Resp 16; Pulse Ox 98% on R/A; Pain 2/10; lp1 04 23:15 Body Mass Index 34.95 (95.25 kg, 165.10 cm) lp1 ED Course: 01/14 22:52 Patient arrived in ED. es 23:06 Destiny Frank, RN is Primary Nurse. lp1 23:07 Sheng Muñoz NP is PHCP. pm1 23:07 Michael Fox MD is Attending Physician. pm1 23:15 Triage completed. lp1 23:16 Arm band placed on. lp1 23:18 Patient has correct armband on for positive identification. lp1 01/15 00:08 Inserted saline lock: 20 gauge in right antecubital area, using aseptic technique. lp1 Blood collected. By Sara Blevins, Student Nurse; Observed by Destiny Frank RN. 00:09 No provider procedures requiring assistance completed. lp1 02:07 CT Abd/Pelvis - W/Contrast: IV contrast only In Process Unspecified. EDMS 03:05 Assist provider with pelvic exam: Set up pelvic tray. Performed by Sheng Muñoz NP lp1 Specimens sent to lab. Patient tolerated well. 03:15 IV discontinued, No redness/swelling at site. Pressure dressing applied. lp1 Administered Medications: 03:21 Drug: AZITHromycin 1 grams Route: PO; lp1 03:21 Follow up: Response: Medication administered at discharge. lp1 Outcome: 03:07 Discharge ordered by MD. pm1 03:15 Discharged to home ambulatory. lp1 03:15 Condition: good 03:15 Discharge instructions given to patient, Instructed on discharge instructions, follow up and referral plans. medication usage, safe sex practices, Demonstrated understanding of instructions, follow-up care, medications, Prescriptions given X 1. 03:20 Patient left the ED. lp1 Signatures: Dispatcher [employer] Peggy Ramos Laura RN RN lp1 Sheng Muñoz, PRATEEK SPRINKLER INSTALLER pm1 Corrections: (The following items were deleted from the chart) 03:35 03:34 Patient left the ED. lp1 lp1
[2019-01-15] MEDS ORDERED: AZITHROMYCIN 250 MG TAB ONE (03:26)
[2019-01-15 05:49] VITALS: TEMP 98.3
[2019-01-15 05:53] VITALS: BP 106/69; O2SAT 98
--- NOTE | 2019-01-15 11:19 | RAD REPORT ---
EXAM DESCRIPTION: CT - Abdomen Pelvis W Contrast - 01/15/2019 3:16 am CLINICAL HISTORY: Pelvic pain. COMPARISON: None Available. TECHNIQUE: CT of the abdomen and pelvis performed following IV administration of iodinated contrast. DLP: 06/21/2016 mGycm FINDINGS: Lung Bases: The visualized lung bases are clear. Bones: No destructive bone lesions identified. Abdomen: Liver: The liver has normal size and density. The dome of the liver is not completely visualized on t his study. No intrahepatic mass or biliary dilatation. Gallbladder: No calcified gallstones. Spleen, Pancreas, and Adrenal Glands: The spleen, pancreas, and adrenal glands are unremarkable. Kidneys: The kidneys have normal size and contour without evidence of solid mass or hydronephrosis. Vasculature: The aorta and IVC have normal caliber and position. The portal vein is patent. The pro ximal visceral and renal arteries are patent. Stomach: The stomach and duodenum have normal course. Other: No free intraperitoneal air. No free fluid or lymphadenopathy. Pelvis: Bladder: Urinary bladder is unremarkable. Bowel: No dilated loops of large or small bowel. Appendix: Normal appendix. Pelvis: Uterus is not enlarged. IMPRESSION: 1. No acute inflammatory or obstructive process identified. This exam was performed according to our departmental dose-optimization program, which includes autom ated exposure control, adjustment of the mA and/or kV according to patient size and/or use of iterati ve reconstruction technique. Electronically signed by: Daniel Posada 01/15/2019 2:29 AM CDT Due to temporary technical issues with the PACS/Fluency reporting system, reports are being signed by the in house radiologist as a courtesy to ensure prompt reporting. The interpreting radiologist is f ully responsible for the content of the report.
[2019-01-17 16:07] LABS: C.trachomatis RNA,TMA Not Detected (Not Detected)
== END 2019-01-15 03:34 | disposition home or self-care (01) ==
LOC: ER 22:33
DX: R10.9 Unspecified abdominal pain (principal); Z88.0 Allergy status to penicillin; Z88.8 Allergy status to other drugs, medicaments and biological substances
CPT/HCPCS: 36415; 74177; 80048; 80076; 81003; 81015; 81025; 83690; 85025; 87086; 87088; 87210; 87490; 87590; 99284; Q9967

== ENCOUNTER 2019-02-23 08:45 | Emergency (ER) | payer OTHER ==
--- OUTSIDE RECORDS SUMMARY | 2019-02-23 08:48 | XMS REPORT ---
[...] Start Date End Date Status Dosage Diflucan [facility] [id number] 150 MG Orally March 16, Active 1 tablet Take one now and 2018 repeat dose in 72h Results No Known Results Summary Purpose eClinicalWorks Submission
--- OUTSIDE RECORDS SUMMARY | 2019-02-23 08:49 | XMS REPORT ---
[...] End Date Status Dosage Date Flonase NDC [id number] 50 MCG/ACT Sep 18, Active 2 sprays Nasally Once a 2018 each day nostril prn [place] NDC 0 Active not defined Results No Known Results Summary Purpose eClinicalWorks Submission
[2019-02-23] MEDS ORDERED: ONDANSETRON 4 MG (ODT) TAB ONE (10:03)
[2019-02-23 10:17] LABS: Urine Bacteria 20-50 /HPF (<20)
[2019-02-23 10:18] LABS: Urine Culture Reflex Order REFLEXED; Urine Mucus 1+ /HPF (NONE SEEN)
[2019-02-23 10:23] LABS: Urine Blood 1+ (NEG); Urine Glucose NEGATIVE (NEG); Urine Protein NEGATIVE (NEG); Urine Specific Gravity 1.025 (1.005-1.030); Urine pH 6.5 (5.0-7.0)
--- NOTE | 2019-02-23 11:00 | ER ---
Nurse's Notes [facility] Name: Nicolasa Rose Age: 23 yrs Sex: Female : 1995 Arrival Date: 02/23/2019 Time: 08:48 Bed 17 [facility] MD: Diagnosis: Vomiting;Cystitis Presentation: 02/23 09:07 Presenting complaint: Patient states: "I've been having nausea and I threw up. I really ss just need a work note because I called in.". Transition of care: patient was not received from another setting of care. Onset of symptoms was February 22, 2019. Risk Assessment: Do you want to hurt yourself or someone else? Patient reports no desire to harm self or others. Initial Sepsis Screen: Does the patient meet any 2 criteria? No. Patient's initial sepsis screen is negative. Does the patient have a suspected source of infection? No. Patient's initial sepsis screen is negative. Care prior to arrival: None. 09:07 Method Of Arrival: Ambulatory ss 09:07 Acuity: ROSENDO 5 ss Historical: - Allergies: 09:11 Abilify; ss 09:11 PENICILLINS; ss - PMHx: 09:11 Depression; Anxiety; ss - Immunization history:: Adult Immunizations up to date. - Social history:: Smoking status: Patient/guardian denies using tobacco. - Ebola Screening: : Patient denies exposure to infectious person Patient denies travel to an Ebola-affected area in the 21 days before illness onset. Screenin:15 Abuse screen: Denies threats or abuse. Nutritional screening: No deficits noted. aa5 Tuberculosis screening: No symptoms or risk factors identified. Fall Risk None identified. Assessment: 09:15 General: Appears comfortable, Behavior is calm, cooperative. Pain: Denies pain. Neuro: aa5 Level of Consciousness is awake, alert, obeys commands, Oriented to person, place, time, situation. Cardiovascular: Patient's skin is warm and dry. Respiratory: Airway is patent Respiratory effort is even, unlabored, Respiratory pattern is regular, symmetrical, Breath sounds are clear bilaterally. GI: Abdomen is round Bowel sounds present X 4 quads. Abd is soft and non tender X 4 quads. Reports nausea, vomiting. : No signs and/or symptoms were reported regarding the genitourinary system. EENT: No signs and/or symptoms were reported regarding the EENT system. Derm: Skin is pink, warm \\T\\ dry. Musculoskeletal: Range of motion: intact in all extremities. 11:20 Reassessment: Patient is alert, oriented x 3, equal unlabored respirations, skin aa5 warm/dry/pink. Vital Signs: 09:11 BP 100 / 73; Pulse 98; Resp 16; Temp 98.6(O); Pulse Ox 100% on R/A; Weight 95.25 kg; ss Height 5 ft. 5 in. (165.10 cm); Pain 0/10; 09:11 Body Mass Index 34.95 (95.25 kg, 165.10 cm) ED Course: 08:48 Patient arrived in ED. as 08:54 Tita Cyr, OWEN is Primary Nurse. aa5 09:04 Rodrick Harding PA is PHCP. jr8 09:04 Michael Fox MD is Attending Physician. jr8 09:10 Triage completed. ss 09:11 Arm band placed on right wrist. ss 09:15 Patient has correct armband on for positive identification. aa5 09:15 No provider procedures requiring assistance completed. aa5 11:20 Patient did not have IV access during this emergency room visit. aa5 Administered Medications: 09:53 Drug: Zofran 4 mg Route: PO; aa5 Outcome: 10:59 Discharge ordered by . 11:20 Discharged to home ambulatory, with family. aa5 11:20 Condition: good 11:20 Discharge instructions given to patient, Instructed on discharge instructions, follow up and referral plans. medication usage, Demonstrated understanding of instructions, follow-up care, medications, Prescriptions given X 2. 11:21 Patient left the ED. aa5 Signatures: Mrai Balbuena as Tita Cyr, RN OWEN aa5 Felisa Domingo RN RN Rodrick Harding PA PA jr8 Michael Fox MD MD
--- NOTE | 2019-02-23 11:01 | EDPHYS ---
Physician Documentation [facility] Name: Nicolasa Rose Age: 23 yrs Sex: Female : 1995 Arrival Date: 02/23/2019 Time: 08:48 Bed 17 Private MD: ED Physician Michael Fox HPI: 02/23 10:58 This 23 yrs old Female presents to ER via Ambulatory with complaints of gs Vomiting, Needs work release. 10:58 The patient presents to the emergency department with vomiting. Onset: The gs symptoms/episode began/occurred 2 day(s) ago. Possible causes: unknown. The symptoms are aggravated by nothing. The symptoms are alleviated by nothing. Associated signs and symptoms: Pertinent negatives: abdominal pain, dysuria, fever. Severity of symptoms: At their worst the symptoms were moderate in the emergency department the symptoms have resolved. The patient has experienced similar episodes in the past, a few times. The patient has not recently seen a physician. Historical: - Allergies: 09:11 Abilify; ss 09:11 PENICILLINS; ss - PMHx: 09:11 Depression; Anxiety; ss - Immunization history:: Adult Immunizations up to date. - Social history:: Smoking status: Patient/guardian denies using tobacco. - Ebola Screening: : Patient denies exposure to infectious person Patient denies travel to an Ebola-affected area in the 21 days before illness onset. ROS: 10:58 All other systems are negative. gs Exam: 10:58 Head/Face: Normocephalic, atraumatic. Eyes: Pupils equal round and reactive to light, gs extra-ocular motions intact. Lids and lashes normal. Conjunctiva and sclera are non-icteric and not injected. Cornea within normal limits. Periorbital areas with no swelling, redness, or edema. ENT: Nares patent. No nasal discharge, no septal abnormalities noted. Tympanic membranes are normal and external auditory canals are clear. Oropharynx with no redness, swelling, or masses, exudates, or evidence of obstruction, uvula midline. Mucous membranes moist. Neck: Trachea midline, no thyromegaly or masses palpated, and no cervical lymphadenopathy. Supple, full range of motion without nuchal rigidity, or vertebral point tenderness. No Meningismus. Chest/axilla: Normal chest wall appearance and motion. Nontender with no deformity. No lesions are appreciated. Cardiovascular: Regular rate and rhythm with a normal S1 and S2. No gallops, murmurs, or rubs. Normal PMI, no JVD. No pulse deficits. Respiratory: Lungs have equal breath sounds bilaterally, clear to auscultation and percussion. No rales, rhonchi or wheezes noted. No increased work of breathing, no retractions or nasal flaring. Abdomen/GI: Soft, non-tender, with normal bowel sounds. No distension or tympany. No guarding or rebound. No evidence of tenderness throughout. Back: No spinal tenderness. No costovertebral tenderness. Full range of motion. Skin: Warm, dry with normal turgor. Normal color with no rashes, no lesions, and no evidence of cellulitis. MS/ Extremity: Pulses equal, no cyanosis. Neurovascular intact. Full, normal range of motion. Neuro: Awake and alert, GCS 15, oriented to person, place, time, and situation. Cranial nerves II-XII grossly intact. Motor strength 5/5 in all extremities. Sensory grossly intact. Cerebellar exam normal. Normal gait. 10:58 Constitutional: The patient appears alert, awake. Vital Signs: 09:11 BP 100 / 73; Pulse 98; Resp 16; Temp 98.6(O); Pulse Ox 100% on R/A; Weight 95.25 kg; ss Height 5 ft. 5 in. (165.10 cm); Pain 0/10; 09:11 Body Mass Index 34.95 (95.25 kg, 165.10 cm) MDM: 09:04 Patient medically screened. jr8 10:58 Differential diagnosis: viral gastroenteritis, gastroenteritis, uti,. Data reviewed: vital signs, nurses notes, lab test result(s). Counseling: I had a detailed discussion with the patient and/or guardian regarding: lab results, the need for outpatient follow up. Response to treatment: the patient's symptoms have markedly improved after treatment, and as a result, I will discharge patient. 02/23 09:48 Order name: Urine Microscopic Only 02/23 10:12 Order name: Urine Dipstick--Ancillary (enter results) 02/23 09:48 Order name: Urine Test (obtain specimen); Complete Time: 09:52 02/23 10:12 Order name: Urine --Ancillary (enter results) 02/23 10:19 Order name: Urine Culture [facility] [place] 02/23 09:48 Order name: Urine Dipstick-Ancillary (obtain specimen); Complete Time: 09:52 gs Administered Medications: 09:53 Drug: Zofran 4 mg Route: PO; aa5 Disposition: 02/23/19 10:59 Discharged to Home. Impression: Vomiting, Cystitis. - Condition is Stable. - Discharge Instructions: Nausea and Vomiting, Adult, Urinary Tract Infection, Adult. - Prescriptions for Keflex 500 mg Oral Capsule - take 1 capsule by ORAL route every 12 hours for 10 days; 20 capsule. Zofran 4 mg Oral Tablet - take 1 tablet by ORAL route every 12 hours As needed; 10 tablet. - Medication Reconciliation Form, Thank You Letter, Antibiotic Education, Prescription Opioid Use form. - Work release form (02/23/19 11:24). aa5 - Follow up: Private Physician; When: 2 - 3 days; Reason: Re-evaluation by your physician. - Problem is new. - Symptoms have improved. Signatures: Dispatcher [employer] [facility] [place] Tita Cyr RN RN aa5 Felisa Domingo RN RN ss Rodrick Harding PA PA jr8 Michael Fox MD MD Corrections: (The following items were deleted from the chart) 11:00 10:59 02/23/2019 10:59 Discharged to Home. Impression: Vomiting. Condition is Stable. gs Forms are Medication Reconciliation Form, Thank You Letter, Antibiotic Education, Prescription Opioid Use. Follow up: Private Physician; When: 2 - 3 days; Reason: Re-evaluation by your physician. Problem is new. Symptoms have improved. gs 11:21 11:00 02/23/2019 10:59 Discharged to Home. Impression: Vomiting; Cystitis. Condition is aa5 Stable. Forms are Medication Reconciliation Form, Thank You Letter, Antibiotic Education, Prescription Opioid Use. Follow up: Private Physician; When: 2 - 3 days; Reason: Re-evaluation by your physician. Problem is new. Symptoms have improved. gs
[2019-02-23 13:37] VITALS: BP 100/73; TEMP 98.6; O2SAT 100
== END 2019-02-23 11:21 | disposition home or self-care (01) ==
LOC: ER 08:45
DX: N30.90 Cystitis, unspecified without hematuria (principal); Z88.0 Allergy status to penicillin; Z88.8 Allergy status to other drugs, medicaments and biological substances
CPT/HCPCS: 81003; 81015; 81025; 87086; 87088; 99283

== ENCOUNTER 2019-03-14 14:38 | Emergency (ER) | payer OTHER ==
--- OUTSIDE RECORDS SUMMARY | 2019-03-14 14:47 | XMS REPORT ---
[...] Diflucan [facility] [id number] 150 MG Orally March 16, Active 1 tablet Take one now and 2018 repeat dose in 72h Results No Known Results Summary Purpose eClinicalWorks Submission
--- OUTSIDE RECORDS SUMMARY | 2019-03-14 14:48 | XMS REPORT ---
[...] End Date Status Dosage Date Flonase NDC [id number] 50 MCG/ACT Sep 18, Active 2 sprays Nasally Once a 2018 each day nostril prn [place] NDC 0 Active not defined Results No Known Results Summary Purpose eClinicalWorks Submission
--- NOTE | 2019-03-14 15:18 | ER ---
Nurse's Notes [facility] Name: Nicolasa Rose Age: 23 yrs Sex: Female : 1995 Arrival Date: 03/14/2019 Time: 14:43 Bed 20 Private MD: Milton Novak Diagnosis: Allergic rhinitis, unspecified Presentation: 03/14 14:45 Presenting complaint: Patient states: today i started having sore throat; denies hj fever;. Transition of care: patient was not received from another setting of care. Onset of symptoms was March 14, 2019. Risk Assessment: Do you want to hurt yourself or someone else? Patient reports no desire to harm self or others. Initial Sepsis Screen: Does the patient meet any 2 criteria? No. Patient's initial sepsis screen is negative. Does the patient have a suspected source of infection? No. Patient's initial sepsis screen is negative. Care prior to arrival: None. 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 - Social history:: Smoking status: Patient/guardian denies using tobacco. - Ebola Screening: : Patient negative for fever greater than or equal to 101.5 degrees Fahrenheit, and additional compatible Ebola Virus Disease symptoms Patient denies exposure to infectious person Patient denies travel to an Ebola-affected area in the 21 days before illness onset No symptoms or risks identified at this time. Screenin:10 Abuse screen: Denies threats or abuse. Denies injuries from another. Nutritional aj screening: No deficits noted. Tuberculosis screening: No symptoms or risk factors identified. Fall Risk None identified. Assessment: 15:10 General: Appears in no apparent distress. comfortable, Behavior is calm, cooperative, aj appropriate for age. Pain: Denies pain. Neuro: Level of Consciousness is awake, alert, obeys commands, Oriented to person, place, time, situation, Appropriate for age. Respiratory: Airway is patent Respiratory effort is even, unlabored, Respiratory pattern is regular, symmetrical, Breath sounds are clear bilaterally. EENT: Throat Reports pain when swallowing. Derm: Skin is intact, is healthy with good turgor, Skin is pink, warm \T\ dry. normal. Vital Signs: 14:47 BP 143 / 71; Pulse 100; Resp 20; Temp 98.5(O); Pulse Ox 97% on R/A; Weight 95.25 kg; hj Height 5 ft. 5 in. (165.10 cm); 14:47 Body Mass Index 34.94 (95.25 kg, 165.10 cm) hj ED Course: 14:43 Patient arrived in ED. mr 14:43 Milton Novak MD is Private Physician. mr 14:46 Triage completed. hj 14:48 Arm band placed on left wrist. hj 14:49 [facility] Seg[facility]C [facility]. snw 14:49 Luciano Batista MD is Attending Physician. snw 15:04 Leonor Roberts, RN is Primary Nurse. aj 15:11 Patient has correct armband on for positive identification. aj 15:11 No provider procedures requiring assistance completed. Patient did not have IV access aj during this emergency room visit. 15:17 Milton Novak MD is Referral Physician. snw Administered Medications: No medications were administered Outcome: 15:17 Discharge ordered by MD. snw 15:59 Discharged to home ambulatory. aj 15:59 Condition: good 15:59 Discharge instructions given to patient, Instructed on discharge instructions, follow up and referral plans. medication usage, Demonstrated understanding of instructions, follow-up care, medications, Prescriptions given X 1. 16:00 Patient left the ED. aj Signatures: Leonor Roberts, RN RN Judy Martinez FNP-C FNP-Keira Lamar Caban Gilberto Fajardo RN RN jillian Corrections: (The following items were deleted from the chart) 14:49 14:47 Pulse 100bpm; Resp 20bpm; Pulse Ox 97% RA; Temp 98.5F Oral; 95.25 kg; Height 5 hj ft. 5 in.; BMI: 34.9; hj
--- NOTE | 2019-03-14 15:18 | EDPHYS ---
Physician Documentation [facility] Name: Nicolasa Rose Age: 23 yrs Sex: Female : 1995 Arrival Date: 03/14/2019 Time: 14:43 Bed 20 Private MD: Milton Novak ED Physician Luciano Batista HPI: 03/14 15:16 This 23 yrs old Female presents to ER via Ambulatory with complaints of Sore snw Throat. 15:16 The patient presents with sore throat. The patient describes throat pain as snw intermittent, raw. Onset: The symptoms/episode began/occurred suddenly, 2 day(s) ago, and became persistent. Severity of symptoms: At their worst the symptoms were very mild. Associated signs and symptoms: The patient has no apparent associated signs or symptoms. The patient has experienced similar episodes in the past. It is unknown whether or not the patient has recently seen a physician. 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 - Social history:: Smoking status: Patient/guardian denies using tobacco. - Ebola Screening: : Patient negative for fever greater than or equal to 101.5 degrees Fahrenheit, and additional compatible Ebola Virus Disease symptoms Patient denies exposure to infectious person Patient denies travel to an Ebola-affected area in the 21 days before illness onset No symptoms or risks identified at this time. ROS: 15:16 Constitutional: Negative for fever, chills, and weight loss, Eyes: Negative for injury, snw pain, redness, and discharge, Neck: Negative for injury, pain, and swelling, Cardiovascular: Negative for chest pain, palpitations, and edema, Respiratory: Negative for shortness of breath, cough, wheezing, and pleuritic chest pain, Abdomen/GI: Negative for abdominal pain, nausea, vomiting, diarrhea, and constipation, Back: Negative for injury and pain, : Negative for injury, bleeding, discharge, and swelling, MS/Extremity: Negative for injury and deformity, Skin: Negative for injury, rash, and discoloration, Neuro: Negative for headache, weakness, numbness, tingling, and seizure. 15:16 ENT: Positive for sore throat. Exam: 15:15 Constitutional: This is a well developed, well nourished patient who is awake, alert, snw and in no acute distress. Head/Face: Normocephalic, atraumatic. Eyes: Pupils equal round and reactive to light, extra-ocular motions intact. Lids and lashes normal. Conjunctiva and sclera are non-icteric and not injected. Cornea within normal limits. Periorbital areas with no swelling, redness, or edema. Neck: Trachea midline, no thyromegaly or masses palpated, and no cervical lymphadenopathy. Supple, full range of motion without nuchal rigidity, or vertebral point tenderness. No Meningismus. Chest/axilla: Normal chest wall appearance and motion. Nontender with no deformity. No lesions are appreciated. Cardiovascular: Regular rate and rhythm with a normal S1 and S2. No gallops, murmurs, or rubs. Normal PMI, no JVD. No pulse deficits. Respiratory: Lungs have equal breath sounds bilaterally, clear to auscultation and percussion. No rales, rhonchi or wheezes noted. No increased work of breathing, no retractions or nasal flaring. Abdomen/GI: Soft, non-tender, with normal bowel sounds. No distension or tympany. No guarding or rebound. No evidence of tenderness throughout. Back: No spinal tenderness. No costovertebral tenderness. Full range of motion. Skin: Warm, dry with normal turgor. Normal color with no rashes, no lesions, and no evidence of cellulitis. MS/ Extremity: Pulses equal, no cyanosis. Neurovascular intact. Full, normal range of motion. Neuro: Awake and alert, GCS 15, oriented to person, place, time, and situation. Cranial nerves II-XII grossly intact. Motor strength 5/5 in all extremities. Sensory grossly intact. Cerebellar exam normal. Normal gait. Psych: Awake, alert, with orientation to person, place and time. Behavior, mood, and affect are within normal limits. 15:15 ENT: External ear(s): are unremarkable, Ear canal(s): are normal, TM's: are normal, Nose: is normal, Mouth: is normal, Posterior pharynx: erythema, that is mild, Voice: is normal. Vital Signs: 14:47 BP 143 / 71; Pulse 100; Resp 20; Temp 98.5(O); Pulse Ox 97% on R/A; Weight 95.25 kg; hj Height 5 ft. 5 in. (165.10 cm); 14:47 Body Mass Index 34.94 (95.25 kg, 165.10 cm) hj MDM: 14:55 Patient medically screened. snw 15:18 Data reviewed: vital signs, nurses notes. Data interpreted: Pulse oximetry: on room air snw is 97 %. Interpretation: normal. Counseling: I had a detailed discussion with the patient and/or guardian regarding: the historical points, exam findings, and any diagnostic results supporting the discharge/admit diagnosis, lab results, the need for outpatient follow up, to return to the emergency department if symptoms worsen or persist or if there are any questions or concerns that arise at home. Special discussion: I have referred the patient to see his PCP for further evaluation of high blood pressure. Based on the history and exam findings, there is no indication for further emergent testing or inpatient evaluation. I discussed with the patient/guardian the need to see the primary care provider for further evaluation of the symptoms. 03/14 15:17 Order name: Strep; Complete Time: 15:54 iw 03/14 15:50 Order name: Throat Culture EDMS Administered Medications: No medications were administered Disposition: 18:41 Co-signature as Attending Physician, Luciano Batista MD. rn Disposition: 03/14/19 15:17 Discharged to Home. Impression: Allergic rhinitis, unspecified. - Condition is Stable. - Discharge Instructions: Pharyngitis, Allergic Rhinitis. - Prescriptions for Zyrtec 10 mg Oral Tablet - take 1 tablet by ORAL route once daily As needed; 20 tablet. - Work release form, Medication Reconciliation Form, Thank You Letter, Antibiotic Education, Prescription Opioid Use form. - Follow up: Milton Novak MD; When: 2 - 3 days; Reason: Recheck today's complaints, Continuance of care, Re-evaluation by your physician. Follow up: Emergency Department; When: As needed; Reason: Worsening of condition. Signatures: Dispatcher [facility] EDMS Leonor Roberts RN RN aj Therrien, Shelly, CARTRIDGE BELT PUNCHER-C CARTR[employer]T P[employer]CHER-Csnw Luciano Batista MD MD rn Joaquin, Henry, RN RN jillian Corrections: (The following items were deleted from the chart) 16:00 15:17 03/14/2019 15:17 Discharged to Home. Impression: Allergic rhinitis, unspecified. aj Condition is Stable. Forms are Medication Reconciliation Form, Thank You Letter, Antibiotic Education, Prescription Opioid Use. Follow up: Milton Novak; When: 2 - 3 days; Reason: Recheck today's complaints, Continuance of care, Re-evaluation by your physician. Follow up: Emergency Department; When: As needed; Reason: Worsening of condition. snw
[2019-03-14 16:29] VITALS: BP 143/71; TEMP 98.5; O2SAT 97
== END 2019-03-14 16:00 | disposition home or self-care (01) ==
LOC: ER 14:38
DX: J30.9 Allergic rhinitis, unspecified (principal); Z88.0 Allergy status to penicillin; Z88.8 Allergy status to other drugs, medicaments and biological substances
CPT/HCPCS: 87070; 87081; 99282

== ENCOUNTER 2019-03-16 10:14 | Emergency (ER) | payer OTHER ==
--- OUTSIDE RECORDS SUMMARY | 2019-03-16 10:18 | XMS REPORT ---
[...] Date Status Dosage Diflucan [facility] [id number] 150 MG Orally March 16, Active 1 tablet Take one now and 2018 repeat dose in 72h Results No Known Results Summary Purpose eClinicalWorks Submission
--- OUTSIDE RECORDS SUMMARY | 2019-03-16 10:19 | XMS REPORT ---
[...] End Date Status Dosage Date Flonase NDC [id number] 50 MCG/ACT Sep 18, Active 2 sprays Nasally Once a 2018 each day nostril prn [place] NDC 0 Active not defined Results No Known Results Summary Purpose eClinicalWorks Submission
[2019-03-16] MEDS ORDERED: METHYLPREDNISOLONE 125 MG INJ ONE (11:05)
--- NOTE | 2019-03-16 11:15 | ER ---
Nurse's Notes [facility] Name: Nicolasa Rose Age: 23 yrs Sex: Female : 1995 Arrival Date: 03/16/2019 Time: 10:15 Bed 14 Private MD: Milton Novak Diagnosis: Acute pharyngitis Presentation: 03/16 10:25 Presenting complaint: Patient states: "I was here two days ago and diagnosed with ss pharyngitis, but I feel like it's getting worse. I think my tonsils are swollen." Denies fever. Transition of care: patient was not received from another setting of care. Onset of symptoms was March 10, 2019. Risk Assessment: Do you want to hurt yourself or someone else? Patient reports no desire to harm self or others. Initial Sepsis Screen: Does the patient meet any 2 criteria? No. Patient's initial sepsis screen is negative. Does the patient have a suspected source of infection? No. Patient's initial sepsis screen is negative. Care prior to arrival: None. 10:25 Method Of Arrival: Ambulatory ss 10:25 Acuity: ROSENDO 4 ss Triage Assessment: 10:45 General: Appears comfortable, Behavior is calm, cooperative. aa5 Historical: - Allergies: 10:26 Abilify; ss 10:26 PENICILLINS; ss - PMHx: 10:26 Depression; Anxiety; ss - PSHx: 10:26 None; ss - Immunization history:: Adult Immunizations up to date. - Social history:: Smoking status: Patient/guardian denies using tobacco. - Ebola Screening: : Patient denies exposure to infectious person Patient denies travel to an Ebola-affected area in the 21 days before illness onset. Screenin:45 Abuse screen: Denies threats or abuse. Nutritional screening: No deficits noted. aa5 Tuberculosis screening: No symptoms or risk factors identified. Fall Risk None identified. Assessment: 10:45 General: Appears comfortable, Behavior is calm, cooperative. Pain: Complains of pain in aa5 throat. Neuro: Level of Consciousness is awake, alert, obeys commands, Oriented to person, place, time, situation. Cardiovascular: Patient's skin is warm and dry. Respiratory: Airway is patent Respiratory effort is even, unlabored, Respiratory pattern is regular, symmetrical, Denies cough. GI: No signs and/or symptoms were reported involving the gastrointestinal system. : No signs and/or symptoms were reported regarding the genitourinary system. EENT: Reports sore throat. Reports significant other was diagnosed with strep a few days ago. . Derm: Skin is pink, warm \\T\\ dry. Musculoskeletal: Range of motion: intact in all extremities. Vital Signs: 10:26 BP 116 / 69; Pulse 94; Resp 16; Temp 98.2(O); Pulse Ox 99% ; Weight 95.25 kg; Height 5 ss ft. 5 in. (165.10 cm); Pain 6/10; 10:26 Body Mass Index 34.95 (95.25 kg, 165.10 cm) ss ED Course: 10:15 Patient arrived in ED. rg4 10:16 Milton Novak MD is Private Physician. rg4 10:26 Triage completed. ss 10:26 Arm band placed on right wrist. ss 10:30 Tita Cyr RN is Primary Nurse. aa5 10:32 Sheng Muñoz NP is PHCP. pm1 10:32 Luciano Batista MD is Attending Physician. pm1 10:45 Patient has correct armband on for positive identification. Bed in low position. Call aa5 light in reach. Side rails up X 1. Adult w/ patient. 11:25 No provider procedures requiring assistance completed. Patient did not have IV access aa5 during this emergency room visit. Administered Medications: 10:56 Drug: SOLU-Medrol 125 mg Route: IM; Site: right gluteus; aa5 11:25 Follow up: Response: No adverse reaction aa5 Outcome: 11:14 Discharge ordered by . pm1 11:25 Discharged to home ambulatory, with significant other. aa5 11:25 Condition: stable 11:25 Discharge instructions given to patient, Instructed on discharge instructions, follow up and referral plans. medication usage, Demonstrated understanding of instructions, follow-up care, medications, Prescriptions given X 1. 11:29 Patient left the ED. aa5 Signatures: Tita Cyr RN RN aa5 Felisa Domingo RN RN Sheng Muñoz NP NETWORK OPERATIONS SPECIALIST pm1 Donna Hollins rg4 Corrections: (The following items were deleted from the chart) 11:34 10:45 Respiratory: Airway is patent Respiratory effort is even, unlabored, Respiratory aa5 pattern is regular, symmetrical, aa5 11:34 10:45 EENT: Reports sore throat . aa5 aa5
--- NOTE | 2019-03-16 11:15 | EDPHYS ---
Physician Documentation [facility] Name: Nicolasa Rose Age: 23 yrs Sex: Female : 1995 Arrival Date: 03/16/2019 Time: 10:15 Bed 14 Private MD: Milton Novak ED Physician Luciano Batista HPI: 03/16 10:49 This 23 yrs old Female presents to ER via Ambulatory with complaints of pm1 Difficulty Swallowing. 10:49 The patient presents with sore throat. The patient describes throat pain as constant. pm1 Onset: The symptoms/episode began/occurred 3 day(s) ago. Severity of symptoms: in the emergency department the symptoms are actually worse. Modifying factors: the symptoms are aggravated by foods, swallowing, Patient's oral intake status: good. Associated signs and symptoms: Pertinent positives: Sore throat Pertinent negatives chest pain, cough, earache, fever, flu-like symptoms. The patient has not experienced similar symptoms in the past. The patient has been recently seen at the [facility] Emergency Department, for similar complaints labs were performed, negative strep and flu. Patient's with positive strep swab and currently treated with antibiotic therapy. Historical: - Allergies: 10:26 Abilify; ss 10:26 PENICILLINS; ss - PMHx: 10:26 Depression; Anxiety; ss - PSHx: 10:26 None; ss - Immunization history:: Adult Immunizations up to date. - Social history:: Smoking status: Patient/guardian denies using tobacco. - Ebola Screening: : Patient denies exposure to infectious person Patient denies travel to an Ebola-affected area in the 21 days before illness onset. ROS: 10:49 Constitutional: Negative for fever, chills, and weight loss, Eyes: Negative for injury, pm1 pain, redness, and discharge. 10:49 Neck: Negative for injury, pain, and swelling, Cardiovascular: Negative for chest pain, palpitations, and edema, Respiratory: Negative for shortness of breath, cough, wheezing, and pleuritic chest pain, Abdomen/GI: Negative for abdominal pain, nausea, vomiting, diarrhea, and constipation, Back: Negative for injury and pain, MS/Extremity: Negative for injury and deformity, Skin: Negative for injury, rash, and discoloration, Neuro: Negative for headache, weakness, numbness, tingling, and seizure. 10:49 ENT: Positive for sore throat, Negative for drainage from ear(s), ear pain, difficulty swallowing, difficulty handling secretions, hoarseness. Exam: 10:49 Constitutional: This is a well developed, well nourished patient who is awake, alert, pm1 and in no acute distress. Head/Face: Normocephalic, atraumatic. Eyes: Pupils equal round and reactive to light, extra-ocular motions intact. Lids and lashes normal. Conjunctiva and sclera are non-icteric and not injected. Cornea within normal limits. Periorbital areas with no swelling, redness, or edema. 10:49 Neck: Trachea midline, no thyromegaly or masses palpated, and no cervical lymphadenopathy. Supple, full range of motion without nuchal rigidity, or vertebral point tenderness. No Meningismus. Chest/axilla: Normal chest wall appearance and motion. Nontender with no deformity. No lesions are appreciated. Cardiovascular: Regular rate and rhythm with a normal S1 and S2. No gallops, murmurs, or rubs. Normal PMI, no JVD. No pulse deficits. Respiratory: Lungs have equal breath sounds bilaterally, clear to auscultation and percussion. No rales, rhonchi or wheezes noted. No increased work of breathing, no retractions or nasal flaring. Abdomen/GI: Soft, non-tender, with normal bowel sounds. No distension or tympany. No guarding or rebound. No evidence of tenderness throughout. Back: No spinal tenderness. No costovertebral tenderness. Full range of motion. Skin: Warm, dry with normal turgor. Normal color with no rashes, no lesions, and no evidence of cellulitis. MS/ Extremity: Pulses equal, no cyanosis. Neurovascular intact. Full, normal range of motion. 10:49 ENT: External ear(s): are unremarkable, Ear canal(s): are normal, TM's: are normal, Nose: is normal, Mouth: is normal, no abscess, no drooling, (-) trismus Oral mucosa: normal, pink and intact, Posterior pharynx: Airway: no evidence of obstruction, patent, Tonsils: bilaterally enlarged, with erythema, no exudate, no ulcerations, erythema, that is mild, exudate, is not appreciated, peritonsillar mass, is not appreciated, pooling of secretions, is not appreciated. 10:49 Neuro: Orientation: is normal, Motor: is normal, moves all fours, Sensation: is normal, no obvious gross deficits. Vital Signs: 10:26 BP 116 / 69; Pulse 94; Resp 16; Temp 98.2(O); Pulse Ox 99% ; Weight 95.25 kg; Height 5 ss ft. 5 in. (165.10 cm); Pain 6/10; 10:26 Body Mass Index 34.95 (95.25 kg, 165.10 cm) ss MDM: 10:35 Patient medically screened. pm1 11:09 Data reviewed: vital signs. Data interpreted: Pulse oximetry: on room air is 99 %. pm1 Interpretation: normal. Counseling: I had a detailed discussion with the patient and/or guardian regarding: the historical points, exam findings, and any diagnostic results supporting the discharge/admit diagnosis. 11:09 ED course: who is present in the room with positive strep swab and currently on pm1 antibiotics, therefore I will treat the patient with antibiotics. Administered Medications: 10:56 Drug: SOLU-Medrol 125 mg Route: IM; Site: right gluteus; aa5 11:25 Follow up: Response: No adverse reaction aa5 Disposition: 13:34 Co-signature as Attending Physician, Luciano Batista MD. rn Disposition: 03/16/19 11:14 Discharged to Home. Impression: Acute pharyngitis. - Condition is Stable. - Discharge Instructions: Pharyngitis. - Prescriptions for Zithromax Z- [place] 250 mg Oral Tablet - take 1 tablet by ORAL route as directed for 5 days Day 1 - take two (2) tablets one time. Day 2, 3, 4 , 5 take one (1) tablet once daily.; 6 tablet. - Work release form, Medication Reconciliation Form, Thank You Letter, Antibiotic Education, Prescription Opioid Use form. - Follow up: Emergency Department; When: As needed; Reason: Worsening of condition. Follow up: Private Physician; When: 2 - 3 days; Reason: Recheck today's complaints, Continuance of care, Re-evaluation by your physician. - Problem is new. - Symptoms have improved. Signatures: Luciano Batista MD MD rn Calderon, Audri, RN RN aa5 Felisa Domingo RN RN ss Sheng Muñoz, JACKER FEEDER JACKER FEEDER pm1 Corrections: (The following items were deleted from the chart) 11:29 11:14 03/16/2019 11:14 Discharged to Home. Impression: Acute pharyngitis. Condition is aa5 Stable. Forms are Medication Reconciliation Form, Thank You Letter, Antibiotic Education, Prescription Opioid Use. Follow up: Emergency Department; When: As needed; Reason: Worsening of condition. Follow up: Private Physician; When: 2 - 3 days; Reason: Recheck today's complaints, Continuance of care, Re-evaluation by your physician. Problem is new. Symptoms have improved. pm1
[2019-03-16 11:58] VITALS: BP 116/69; TEMP 98.2; O2SAT 99
== END 2019-03-16 11:29 | disposition home or self-care (01) ==
LOC: ER 10:14
DX: J02.9 Acute pharyngitis, unspecified (principal); Z88.0 Allergy status to penicillin; Z88.8 Allergy status to other drugs, medicaments and biological substances; F32.9 Major depressive disorder, single episode, unspecified; F41.9 Anxiety disorder, unspecified
CPT/HCPCS: 96372; 99283; J2930

== ENCOUNTER 2019-04-26 08:26 | Emergency (ER) | payer OTHER ==
--- OUTSIDE RECORDS SUMMARY | 2019-04-26 08:29 | XMS REPORT ---
[...] Start Date End Date Status Dosage Diflucan [facility] [id number] 150 MG Orally March 16, Active 1 tablet Take one now and 2018 repeat dose in 72h Results No Known Results Summary Purpose eClinicalWorks Submission
--- OUTSIDE RECORDS SUMMARY | 2019-04-26 08:30 | XMS REPORT ---
[...] End Date Status Dosage Date Flonase NDC 80147693499 50 MCG/ACT Sep 18, Active 2 sprays Nasally Once a 2018 each day nostril prn [place] NDC 0 Active not defined Results No Known Results Summary Purpose eClinicalWorks Submission
--- NOTE | 2019-04-26 09:54 | ER ---
Nurse's Notes [facility] Name: Nicolasa Rose Age: 23 yrs Sex: Female : 1995 Arrival Date: 04/26/2019 Time: 08:32 Bed 14 Private MD: Milton Novak Diagnosis: Pelvic and perineal pain Presentation: 04/26 08:49 Presenting complaint: Patient states: c/o generalized abd pain intermittent X 2 weeks, iw and missed her cycle, LMP was March 19, home UPT was negative but usually has to have blood test and US to verify , denies v/d, c/o nausea. Transition of care: patient was not received from another setting of care. Onset of symptoms was April 12, 2019. Risk Assessment: Do you want to hurt yourself or someone else? Patient reports no desire to harm self or others. Initial Sepsis Screen: Does the patient meet any 2 criteria? No. Patient's initial sepsis screen is negative. Does the patient have a suspected source of infection? No. Patient's initial sepsis screen is negative. Care prior to arrival: None. 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 - Ebola Screening: : Patient negative for fever greater than or equal to 101.5 degrees Fahrenheit, and additional compatible Ebola Virus Disease symptoms Patient denies exposure to infectious person Patient denies travel to an Ebola-affected area in the 21 days before illness onset No symptoms or risks identified at this time. - Social history:: Smoking status: Patient/guardian denies using tobacco. Screenin:05 Abuse screen: Denies threats or abuse. Nutritional screening: No deficits noted. rb1 Tuberculosis screening: No symptoms or risk factors identified. Fall Risk None identified. Assessment: 09:05 General: Appears in no apparent distress. comfortable, Behavior is calm, cooperative, rb1 Denies fever. Pain: Complains of pain in abdomen Pain began x 2 weeks. Neuro: Level of Consciousness is awake, alert, obeys commands, Oriented to person, place, time, situation. Cardiovascular: Capillary refill < 3 seconds is brisk in bilateral fingers. Respiratory: Airway is patent Respiratory effort is even, unlabored, Respiratory pattern is regular, symmetrical. GI: Reports nausea. : No signs and/or symptoms were reported regarding the genitourinary system. Derm: Skin is pink, warm \T\ dry. Musculoskeletal: Range of motion: intact in all extremities. 09:05 GI: Bowel sounds present X 4 quads. Abd is soft. rb1 10:01 Reassessment: Patient appears in no apparent distress at this time. No changes from rb1 previously documented assessment. Dr. Fox gave a verbal order to hold discharge until the daughter was discharged as well. Family at bedside. 10:52 Reassessment: Patient appears in no apparent distress at this time. Patient and/or rb1 family updated on plan of care and expected duration. Pain level reassessed. Patient is alert, oriented x 3, equal unlabored respirations, skin warm/dry/pink. Vital Signs: 08:53 BP 112 / 69; Pulse 70; Resp 16; Temp 97.6(TE); Pulse Ox 100% on R/A; Weight 95.25 kg; iw Height 5 ft. 5 in. (165.10 cm); Pain 0/10; 09:45 BP 116 / 71; Pulse 69; Resp 16; Temp 97.9(O); Pulse Ox 100% on R/A; Pain 2/10; rb1 10:45 BP 115 / 71; Pulse 70; Resp 17; Temp 98.0(O); Pulse Ox 99% on R/A; Pain 2/10; rb1 08:53 Body Mass Index 34.95 (95.25 kg, 165.10 cm) iw ED Course: 08:32 Patient arrived in ED. as 08:32 Milton Novak MD is Private Physician. as 08:50 Triage completed. iw 08:51 Arm band placed on. iw 09:02 Gloria Meyer, RN is Primary Nurse. rb1 09:05 Michael Fox MD is Attending Physician. gs 09:05 Patient has correct armband on for positive identification. Bed in low position. Call rb1 light in reach. Side rails up X 1. Pulse ox on. NIBP on. 09:51 Nehal Carballo MD is Referral Physician. 10:39 Urine --Ancillary (enter results) Sent. [facility] 10:39 Urine Dipstick--Ancillary (enter results) Sent. [facility] 10:39 Urine collected: clean catch specimen, clear, Amount Voided: 240mL. [facility] 10:54 No provider procedures requiring assistance completed. Patient did not have IV access rb1 during this emergency room visit. Administered Medications: No medications were administered Outcome: :53 Discharge ordered by . 10:54 Discharged to home ambulatory, with family. [facility] 10:54 Condition: stable 10:54 Discharge instructions given to patient, Instructed on discharge instructions, follow up and referral plans. Demonstrated understanding of instructions, follow-up care, Prescriptions given X none 10:55 Patient left the ED. [facility] Signatures: Mari Balbuena Irene, RN RN iw Barber, Rebecca, RN RN [facility] Lissa Balbuena [facility] Michael Fox MD MD
--- NOTE | 2019-04-26 09:54 | EDPHYS ---
Physician Documentation [facility] Name: Nicolasa Rose Age: 23 yrs Sex: Female : 1995 Arrival Date: 04/26/2019 Time: 08:32 Bed 14 Private MD: Milton Novak ED Physician Michael Fox HPI: 04/26 09:41 This 23 yrs old Female presents to ER via Ambulatory with complaints of gs Abdominal Pain. 09:41 The patient presents with pelvic pain. Onset: The symptoms/episode began/occurred 2 gs week(s) ago. Modifying factors: The symptoms are alleviated by nothing, the symptoms are aggravated by nothing. Associated signs and symptoms: Pertinent positives: cramping, Pertinent negatives: dysuria, fever. Severity of symptoms: At their worst the symptoms were moderate, in the emergency department the symptoms are unchanged. The patient has experienced similar episodes in the past, a few times. 09:54 Associated signs and symptoms: Pertinent negatives: vaginal bleeding, vaginal gs discharge, vomiting. 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 - Ebola Screening: : Patient negative for fever greater than or equal to 101.5 degrees Fahrenheit, and additional compatible Ebola Virus Disease symptoms Patient denies exposure to infectious person Patient denies travel to an Ebola-affected area in the 21 days before illness onset No symptoms or risks identified at this time. - Social history:: Smoking status: Patient/guardian denies using tobacco. ROS: 09:41 All other systems are negative. gs Exam: 09:41 Head/Face: Normocephalic, atraumatic. Eyes: Pupils equal round and reactive to light, gs extra-ocular motions intact. Lids and lashes normal. Conjunctiva and sclera are non-icteric and not injected. Cornea within normal limits. Periorbital areas with no swelling, redness, or edema. ENT: Nares patent. No nasal discharge, no septal abnormalities noted. Tympanic membranes are normal and external auditory canals are clear. Oropharynx with no redness, swelling, or masses, exudates, or evidence of obstruction, uvula midline. Mucous membranes moist. Neck: Trachea midline, no thyromegaly or masses palpated, and no cervical lymphadenopathy. Supple, full range of motion without nuchal rigidity, or vertebral point tenderness. No Meningismus. Chest/axilla: Normal chest wall appearance and motion. Nontender with no deformity. No lesions are appreciated. Cardiovascular: Regular rate and rhythm with a normal S1 and S2. No gallops, murmurs, or rubs. Normal PMI, no JVD. No pulse deficits. Respiratory: Lungs have equal breath sounds bilaterally, clear to auscultation and percussion. No rales, rhonchi or wheezes noted. No increased work of breathing, no retractions or nasal flaring. Abdomen/GI: Soft, non-tender, with normal bowel sounds. No distension or tympany. No guarding or rebound. No evidence of tenderness throughout. Back: No spinal tenderness. No costovertebral tenderness. Full range of motion. Skin: Warm, dry with normal turgor. Normal color with no rashes, no lesions, and no evidence of cellulitis. MS/ Extremity: Pulses equal, no cyanosis. Neurovascular intact. Full, normal range of motion. Neuro: Awake and alert, GCS 15, oriented to person, place, time, and situation. Cranial nerves II-XII grossly intact. Motor strength 5/5 in all extremities. Sensory grossly intact. Cerebellar exam normal. Normal gait. 09:41 Constitutional: The patient appears alert, awake. Vital Signs: 08:53 BP 112 / 69; Pulse 70; Resp 16; Temp 97.6(TE); Pulse Ox 100% on R/A; Weight 95.25 kg; iw Height 5 ft. 5 in. (165.10 cm); Pain 0/10; 09:45 BP 116 / 71; Pulse 69; Resp 16; Temp 97.9(O); Pulse Ox 100% on R/A; Pain 2/10; rb1 10:45 BP 115 / 71; Pulse 70; Resp 17; Temp 98.0(O); Pulse Ox 99% on R/A; Pain 2/10; rb1 08:53 Body Mass Index 34.95 (95.25 kg, 165.10 cm) iw MDM: 09:12 Patient medically screened. gs 09:41 Differential diagnosis: ectopic , urinary tract infection, iup. Data reviewed: vital signs, nurses notes, lab test result(s). Counseling: I had a detailed discussion with the patient and/or guardian regarding: the historical points, exam findings, and any diagnostic results supporting the discharge/admit diagnosis, lab results, the need for outpatient follow up. Response to treatment: the patient's symptoms have mildly improved after treatment, and as a result, I will discharge patient. 04/26 09:06 Order name: Urine Microscopic Only gs 04/26 10:32 Order name: Urine Dipstick--Ancillary (enter results) eb 04/26 09:06 Order name: Urine Dipstick-Ancillary (obtain specimen); Complete Time: 09:55 04/26 10:32 Order name: Urine --Ancillary (enter results) eb Administered Medications: No medications were administered Disposition: 04/26/19 09:53 Discharged to Home. Impression: Pelvic and perineal pain. - Condition is Stable. - Discharge Instructions: Pelvic Pain, Female. - Medication Reconciliation Form, Thank You Letter, Antibiotic Education, Prescription Opioid Use form. - Follow up: Nehal Carballo MD; When: 2 - 3 days; Reason: Re-evaluation by your physician. Signatures: Dispatcher [employer] Nallely Negro, OWEN RN iw Gloria Meyer RN RN rb1 Michael Fox MD MD Corrections: (The following items were deleted from the chart) 10:55 09:53 04/26/2019 09:53 Discharged to Home. Impression: Pelvic and perineal pain. rb1 Condition is Stable. Forms are Medication Reconciliation Form, Thank You Letter, Antibiotic Education, Prescription Opioid Use. Follow up: Nehal Carballo; When: 2 - 3 days; Reason: Re-evaluation by your physician.
[2019-04-26 10:25] LABS: Urine Bacteria <20 /HPF (<20); Urine Culture Reflex Order NOT NEEDED; Urine RBC <5 /HPF (NONE SEEN)
[2019-04-26 11:11] VITALS: BP 115/71; TEMP 98; O2SAT 99
[2019-04-26 11:17] LABS: Urine Blood NEGATIVE (NEG); Urine Glucose NEGATIVE (NEG); Urine Protein NEGATIVE (NEG)
== END 2019-04-26 10:55 | disposition home or self-care (01) ==
LOC: ER 08:26
DX: R10.2 Pelvic and perineal pain (principal); Z88.0 Allergy status to penicillin; Z88.8 Allergy status to other drugs, medicaments and biological substances; F32.9 Major depressive disorder, single episode, unspecified; F41.9 Anxiety disorder, unspecified
CPT/HCPCS: 81003; 81015; 81025; 99283

== ENCOUNTER 2019-06-08 11:36 | Emergency (ER) | payer OTHER ==
[2019-06-08 12:23] LABS: Urine Blood NEGATIVE (NEG); Urine Glucose NEGATIVE (NEG); Urine Protein NEGATIVE (NEG)
[2019-06-08 13:00] LABS: Urine Bacteria >50 /HPF (<20); Urine Culture Reflex Order REFLEXED; Urine Mucus 3+ /HPF (NONE SEEN); Urine RBC <5 /HPF (NONE SEEN)
--- NOTE | 2019-06-08 14:46 | RAD REPORT ---
EXAM DESCRIPTION: US - Transvaginal OB - 06/08/2019 2:36 pm CLINICAL HISTORY: right lower abdomen pain COMPARISON: <Comparisons> FINDINGS: Uterus measures 9.7 x 5.4 x 6.3 cm. The endometrium is thickened and homogeneous measuring 17 mm. No gestational sac seen. The right ovary measures 3.5 x 2.6 cm. The left ovary is obscured by bowel gas. IMPRESSION: Thickened IUP is noted without visible gestational sac. This may be related to early pre gnancy, however, in the setting of a positive HCG level this would be considered a of unkno wn location. Advise serial HCG levels and followup pelvic ultrasound in 10-12 days.
--- NOTE | 2019-06-08 15:03 | ER ---
Nurse's Notes [facility] Name: Nicolasa Rose Age: 23 yrs Sex: Female : 1995 Arrival Date: 06/08/2019 Time: 11:38 Bed 24 Private MD: Milton Novak Diagnosis: related conditions, unspecified, first trimester;Lower abdominal pain, unspecified Presentation: 06/08 11:39 Presenting complaint: Patient states: RLQ pain and nausea in the am started last night. sv Report 2 positive tests. Transition of care: patient was not received from another setting of care. Onset of symptoms was June 07, 2019. Risk Assessment: Do you want to hurt yourself or someone else? Patient reports no desire to harm self or others. Initial Sepsis Screen: Does the patient meet any 2 criteria? No. Patient's initial sepsis screen is negative. Does the patient have a suspected source of infection? No. Patient's initial sepsis screen is negative. Care prior to arrival: None. 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 - Social history:: Smoking status: Patient uses tobacco products. - Ebola Screening: : No symptoms or risks identified at this time. Screenin:58 Abuse screen: Denies threats or abuse. Denies injuries from another. Nutritional ca1 screening: No deficits noted. Tuberculosis screening: No symptoms or risk factors identified. Fall Risk IV access (20 points). Assessment: 11:58 General: Appears in no apparent distress. comfortable, Behavior is calm, cooperative, ca1 appropriate for age. Pain: Complains of pain in right lower quadrant Pain does not radiate. Pain currently is 0 out of 10 on a pain scale. at worst was 7 out of 10 on a pain scale. Quality of pain is described as crampy, Pain began last night Is intermittent. Neuro: Level of Consciousness is awake, alert, obeys commands, Oriented to person, place, time, situation. Cardiovascular: Heart tones S1 S2 present Capillary refill < 3 seconds Patient's skin is warm and dry. Pulses are all present. Respiratory: Airway is patent Respiratory effort is even, unlabored, Respiratory pattern is regular, symmetrical, Breath sounds are clear bilaterally. GI: Abdomen is round non-distended, Bowel sounds present X 4 quads. Abd is soft and non tender X 4 quads. GI: Reports nausea. : No deficits noted. No signs and/or symptoms were reported regarding the genitourinary system. EENT: No deficits noted. No signs and/or symptoms were reported regarding the EENT system. Derm: Skin is intact, is healthy with good turgor, Skin is pink, warm \T\ dry. Musculoskeletal: Circulation, motion, and sensation intact. Capillary refill < 3 seconds, Range of motion: intact in all extremities. 12:49 Reassessment: Patient appears in no apparent distress at this time. Patient and/or iw family updated on plan of care and expected duration. Pain level reassessed. Patient is alert, oriented x 3, equal unlabored respirations, skin warm/dry/pink. 14:05 Reassessment: Patient appears in no apparent distress at this time. Patient and/or ca1 family updated on plan of care and expected duration. Pain level reassessed. Patient is alert, oriented x 3, equal unlabored respirations, skin warm/dry/pink. 15:19 Reassessment: Patient appears in no apparent distress at this time. Patient and/or ca1 family updated on plan of care and expected duration. Pain level reassessed. Patient is alert, oriented x 3, equal unlabored respirations, skin warm/dry/pink. Vital Signs: 11:40 BP 124 / 70; Pulse 87; Resp 16; Temp 98.2; Pulse Ox 100% ; Weight 95.25 kg; Height 5 sv ft. 5 in. (165.10 cm); Pain 4/10; 13:01 BP 96 / 52; Pulse 78; Resp 18; Temp 98(O); Pulse Ox 100% ; ca1 14:05 BP 93 / 59; Pulse 75; Resp 16 S; Pulse Ox 100% on R/A; ca1 15:19 BP 101 / 62; Pulse 71; Resp 16 S; Pulse Ox 100% ; ca1 11:40 Body Mass Index 34.95 (95.25 kg, 165.10 cm) sv ED Course: 11:38 Patient arrived in ED. mr Chrissy:38 Milton Novak MD is Private Physician. mr 11:40 Triage completed. sv 11:41 Arm band placed on. sv 11:53 Pamela Roberts RN is Primary Nurse. ca1 11:53 Kenny Tucker PA is PHCP. cp 11:53 Alejandro Rai MD is Attending Physician. cp 11:58 Patient has correct armband on for positive identification. Placed in gown. Bed in low ca1 position. Call light in reach. Side rails up X 1. Pulse ox on. NIBP on. Warm blanket given. 11:58 No provider procedures requiring assistance completed. Initial lab(s) drawn, by me, ca1 sent to lab. Missed attempt(s): 20 gauge in right antecubital area. Bleeding controlled, band aid applied, catheter tip intact. 12:47 Lab(s) recollected, by me, sent to lab. Inserted saline lock: 22 gauge in right iw antecubital area, using aseptic technique. Blood collected. 14:33 US Transvaginal Ob In Process Unspecified. EDMS 14:59 Ramone Ramirez MD is Referral Physician. cp 15:21 IV discontinued, intact, bleeding controlled, No redness/swelling at site. Pressure ca1 dressing applied. Administered Medications: No medications were administered Outcome: 15:00 Discharge ordered by . cp 15:21 Discharged to home ambulatory, with significant other. ca1 15:21 Condition: stable 15:21 Discharge instructions given to patient, Instructed on discharge instructions, follow up and referral plans. medication usage, Demonstrated understanding of instructions, follow-up care, medications, Prescriptions given X 1. 15:21 Patient left the ED. ca1 Signatures: Dispatcher [employer] EDTN Rossy Villegas RN RN Arsh Lamar Nallely Travis RN RN iw Page, Corey, PA PA cp Pamela Roberts RN RN ca1 Corrections: (The following items were deleted from the chart) 15:21 15:21 Discharge instructions given to patient, Instructed on discharge instructions, ca1 follow up and referral plans. Demonstrated understanding of instructions, follow-up care, ca1
--- NOTE | 2019-06-08 15:04 | EDPHYS ---
Physician Documentation [facility] Name: Nicolasa Rose Age: 23 yrs Sex: Female : 1995 Arrival Date: 06/08/2019 Time: 11:38 Bed 24 Private MD: Milton Novak ED Physician Alejandro Rai HPI: 06/08 12:23 This 23 yrs old Female presents to ER via Ambulatory with complaints of cp Abdominal Pain. 12:23 The patient presents with abdominal pain right lower quadrant. Onset: The cp symptoms/episode began/occurred yesterday. The symptoms do not radiate. Associated signs and symptoms: Pertinent positives: nausea, vaginal discharge, positive home test, Pertinent negatives: diarrhea, dysuria, fever, vomiting. 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 - Social history:: Smoking status: Patient uses tobacco products. - Ebola Screening: : No symptoms or risks identified at this time. ROS: 12:30 Constitutional: Negative for body aches, chills, fever, poor PO intake. cp 12:30 Eyes: Negative for injury, pain, redness, and discharge. cp 12:30 ENT: Negative for drainage from ear(s), ear pain, sore throat, difficulty swallowing, difficulty handling secretions. 12:30 Cardiovascular: Negative for chest pain, palpitations. 12:30 Respiratory: Negative for cough, shortness of breath, wheezing. 12:30 Abdomen/GI: Positive for abdominal pain, nausea, of the right lower quadrant, Negative for vomiting, diarrhea, constipation, anorexia, black/tarry stool, rectal bleeding. 12:30 Back: Negative for pain at rest, pain with movement, radiated pain. 12:30 : Positive for vaginal discharge, Negative for urinary symptoms, vaginal bleeding. 12:30 Skin: Negative for cellulitis, rash. 12:30 Neuro: Negative for altered mental status, dizziness, weakness. 12:30 All other systems are negative. Exam: 12:35 Constitutional: The patient appears in no acute distress, alert, awake, comfortable, cp non-toxic, well developed, well nourished. 12:35 Head/Face: Normocephalic, atraumatic. cp 12:35 Eyes: Periorbital structures: appear normal, Conjunctiva: normal, no exudate, no injection, Lids and lashes: appear normal, bilaterally. 12:35 ENT: External ear(s): are unremarkable, Nose: is normal, Mouth: Lips: moist, Oral mucosa: pink and intact, moist, Posterior pharynx: is normal, airway is patent, no erythema, no exudate. 12:35 Chest/axilla: Inspection: normal, Palpation: is normal, no crepitus, no tenderness. 12:35 Cardiovascular: Rate: normal, Rhythm: regular. 12:35 Respiratory: the patient does not display signs of respiratory distress, Respirations: normal, no use of accessory muscles, no retractions, no splinting, no tachypnea, labored breathing, is not present, Breath sounds: are clear throughout, no decreased breath sounds, no stridor, no wheezing. 12:35 Abdomen/GI: Inspection: abdomen appears normal, Bowel sounds: active, all quadrants, Palpation: soft, in all quadrants, mild abdominal tenderness, in the right lower quadrant, rebound tenderness, is not appreciated, voluntary guarding, is not appreciated, involuntary guarding, is not appreciated. 12:35 Back: pain, is absent, ROM is normal. 14:58 : Pelvic Exam: The exam is refused by the patient/guardian. The risks and cp consequences are understood by the patient. Vital Signs: 11:40 BP 124 / 70; Pulse 87; Resp 16; Temp 98.2; Pulse Ox 100% ; Weight 95.25 kg; Height 5 sv ft. 5 in. (165.10 cm); Pain 4/10; 13:01 BP 96 / 52; Pulse 78; Resp 18; Temp 98(O); Pulse Ox 100% ; ca1 14:05 BP 93 / 59; Pulse 75; Resp 16 S; Pulse Ox 100% on R/A; ca1 15:19 BP 101 / 62; Pulse 71; Resp 16 S; Pulse Ox 100% ; ca1 11:40 Body Mass Index 34.95 (95.25 kg, 165.10 cm) sv MDM: 12:01 Patient medically screened. cp 12:40 Differential diagnosis: appendicitis, Ectopic , Ovarian Torsion, Pelvic cp Inflammatory Disease, Ureterolithiasis, urinary tract infection. 15:00 Data reviewed: vital signs, nurses notes, lab test result(s), radiologic studies, cp ultrasound. 15:00 Counseling: I had a detailed discussion with the patient and/or guardian regarding: the cp historical points, exam findings, and any diagnostic results supporting the discharge/admit diagnosis, lab results, radiology results, the need for outpatient follow up, an OB/Gyne specialist, to return to the emergency department if symptoms worsen or persist or if there are any questions or concerns that arise at home. Response to treatment: the patient's symptoms have markedly improved after treatment. Special discussion: Based on the patient's Hx, exam, and Dx evaluation, there is no indication for emergent surgery or inpatient Tx. It is understood by the patient/guardian that if the Sx's persist or worsen they need to return immediately for re-evaluation. 06/08 11:51 Order name: Urine Dipstick--Ancillary (enter results) 06/08 11:51 Order name: Urine --Ancillary (enter results) 06/08 12:01 Order name: Quantitative Hcg; Complete Time: 13:34 06/08 12:01 Order name: Abo/rh Typing; Complete Time: 14:58 06/08 14:58 Interpretation: Reviewed. 06/08 12:01 Order name: Basic Metabolic Panel; Complete Time: 13:34 06/08 13:34 Interpretation: Normal except: CL 111; GFR 87. 06/08 12:01 Order name: IV Saline Lock; Complete Time: 12:49 06/08 12:01 Order name: Labs collected and sent; Complete Time: 12:49 06/08 12:01 Order name: Urine Microscopic Only 06/08 12:25 Order name: Urine --Ancillary; Complete Time: 12:55 EDMS 06/08 12:56 Interpretation: Reviewed. 06/08 12:25 Order name: Urine Dipstick-Ancillary; Complete Time: 12:55 EDMS 06/08 13:03 Interpretation: Normal except: UESTR 2+. 06/08 13:00 Order name: Urine Microscopic Only; Complete Time: 13:02 EDMS 06/08 13:03 Interpretation: Normal except: UWBC 10-20; UBACT >50; SQEPI 10-20; MUCUS 3+. cp 06/08 13:37 Order name: US Transvaginal Ob cp 06/08 13:38 Order name: Urine Culture EDSC 06/08 12:01 Order name: NPO; Complete Time: 12:08 cp 06/08 12:01 Order name: Urine Dipstick-Ancillary (obtain specimen); Complete Time: 12:08 cp Administered Medications: No medications were administered Disposition: 16:07 Co-signature as Attending Physician, Alejandro Rai MD I agree with the assessment and kdr plan of care. Disposition: 06/08/19 15:00 Discharged to Home. Impression: related conditions, unspecified, first trimester, Lower abdominal pain, unspecified. - Condition is Stable. - Discharge Instructions: Abdominal Pain During , First Trimester of . - Prescriptions for Vitamin 27- 0.8 mg Oral Tablet - take 1 tablet by ORAL route once daily; 60 tablet. - Medication Reconciliation Form, Thank You Letter, Antibiotic Education, Prescription Opioid Use form. - Follow up: Ramone Ramirez MD; When: 10 - 14 days; Reason: repeat ultrasound. Follow up: Emergency Department; When: 48 Hours; Reason: Repeat Beta-HCG (48 Hours). - Problem is new. - Symptoms have improved. Signatures: Dispatcher [employer] Rossy Luther, RN RN Alejandro Blevins MD MD [facility] Kenny Tucker PA PA Pamela Roberts RN RN ca1 Corrections: (The following items were deleted from the chart) 15:21 15:00 06/08/2019 15:00 Discharged to Home. Impression: related conditions, ca1 unspecified, first trimester; Lower abdominal pain, unspecified. Condition is Stable. Forms are Medication Reconciliation Form, Thank You Letter, Antibiotic Education, Prescription Opioid Use. Follow up: Ramone Rmairez; When: 10 - 14 days; Reason: repeat ultrasound. Follow up: Emergency Department; When: 48 Hours; Reason: Repeat Beta-HCG (48 Hours). Problem is new. Symptoms have improved. cp
[2019-06-08 15:44] VITALS: O2SAT 100
[2019-06-08 15:45] VITALS: TEMP 98
[2019-06-08 15:47] VITALS: BP 93/59
== END 2019-06-08 15:21 | disposition home or self-care (01) ==
LOC: ER 11:36
DX: O26.891 Other specified pregnancy related conditions, first trimester (principal); R10.11 Right upper quadrant pain; Z88.0 Allergy status to penicillin; Z88.8 Allergy status to other drugs, medicaments and biological substances
CPT/HCPCS: 76817; 80048; 81003; 81015; 81025; 84702; 86900; 86901; 87086; 87088; 99284

== ENCOUNTER 2019-06-12 09:59 | Emergency (ER) | payer OTHER ==
--- OUTSIDE RECORDS SUMMARY | 2019-06-12 10:02 | XMS REPORT ---
:1995 [facility] Address [address] [place] [address] Care Team Providers Name Role Phone Unavailable Unavailable Unavailable Problems This patient has no known problems. Allergies, Adverse Reactions, Alerts This patient has no known allergies or adverse reactions. Medications This patient has no known medications.
--- OUTSIDE RECORDS SUMMARY | 2019-06-12 10:02 | XMS REPORT ---
[...] Start Date End Date Status Dosage Diflucan [facility] [id number] 150 MG Orally March 16, Active 1 tablet Take one now and 2018 repeat dose in 72h Results No Known Results Summary Purpose eClinicalWorks Submission
--- OUTSIDE RECORDS SUMMARY | 2019-06-12 10:03 | XMS REPORT ---
[...] End Date Status Dosage Date Flonase NDC [id number] 50 MCG/ACT Sep 18, Active 2 sprays Nasally Once a 2018 each day nostril prn [place] NDC 0 Active not defined Results No Known Results Summary Purpose eClinicalWorks Submission
[2019-06-12 12:43] LABS: Urine Blood NEGATIVE (NEG); Urine Glucose NEGATIVE (NEG); Urine Protein NEGATIVE (NEG); Urine Specific Gravity 1.025 (1.005-1.030)
--- NOTE | 2019-06-12 13:53 | ER ---
Nurse's Notes [facility] Name: Nicolasa Rose Age: 24 yrs Sex: Female : 1995 Arrival Date: 06/12/2019 Time: 10:03 Bed 30 Private MD: Diagnosis: related conditions, unspecified, first trimester;Other abdominal pain;Intrauterine Presentation: 06/12 10:05 Presenting complaint: Needs HCG checked. Transition of care: patient was not received hb from another setting of care. Onset of symptoms was June 12, 2019. Risk Assessment: Do you want to hurt yourself or someone else? Patient reports no desire to harm self or others. Initial Sepsis Screen: Does the patient meet any 2 criteria? No. Patient's initial sepsis screen is negative. Does the patient have a suspected source of infection? No. Patient's initial sepsis screen is negative. Care prior to arrival: None. 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 - Social history:: Smoking status: Patient/guardian denies using tobacco. - Ebola Screening: : No symptoms or risks identified at this time. Screenin:19 Abuse screen: Denies threats or abuse. Denies injuries from another. Nutritional aj1 screening: No deficits noted. Tuberculosis screening: No symptoms or risk factors identified. 14:11 Fall Risk None identified. rv Assessment: 10:19 General: Appears in no apparent distress. comfortable, Behavior is calm, cooperative, aj1 appropriate for age. Pain: Denies pain. Neuro: Level of Consciousness is awake, alert, obeys commands, Oriented to person, place, time, situation. Cardiovascular: Patient's skin is warm and dry. Respiratory: Airway is patent Respiratory effort is even, unlabored, Respiratory pattern is regular, symmetrical. GI: Abdomen is non-distended, Reports cramping, that is intermittent, comes at night. : Denies vaginal bleeding. EENT: No signs and/or symptoms were reported regarding the EENT system. Derm: No signs and/or symptoms reported regarding the dermatologic system. Skin is pink, warm \T\ dry. normal. Musculoskeletal: No signs and/or symptoms reported regarding the musculoskeletal system. Circulation, motion, and sensation intact. 11:36 Reassessment: Patient appears in no apparent distress at this time. No changes from aj1 previously documented assessment. Patient and/or family updated on plan of care and expected duration. Pain level reassessed. Patient is alert, oriented x 3, equal unlabored respirations, skin warm/dry/pink. 12:30 Reassessment: Patient appears in no apparent distress at this time. No changes from aj1 previously documented assessment. Patient and/or family updated on plan of care and expected duration. Pain level reassessed. Patient is alert, oriented x 3, equal unlabored respirations, skin warm/dry/pink. Vital Signs: 10:06 BP 137 / 78; Pulse 87; Resp 16; Temp 97.4; Pulse Ox 100% on R/A; Weight 95.25 kg; hb Height 5 ft. 5 in. (165.10 cm); Pain 0/10; 12:00 BP 125 / 76; Pulse 86; Resp 15; Pulse Ox 100% on R/A; rv 14:00 BP 121 / 77; Pulse 85; Resp 15; Pulse Ox 100% on R/A; rv 10:06 Body Mass Index 34.95 (95.25 kg, 165.10 cm) hb ED Course: 10:03 Patient arrived in ED. as 10:06 Triage completed. hb 10:06 Arm band placed on. hb 10:13 Elena Abrams, OWEN is Primary Nurse. aj1 10:15 Sheng Muñoz NP is PHCP. pm1 10:15 Kenny Storey MD is Attending Physician. pm1 10:19 Patient has correct armband on for positive identification. aj1 10:19 No provider procedures requiring assistance completed. aj1 11:00 Initial lab(s) drawn, by ut, sent to lab. aj1 14:10 US Transvaginal Ob In Process Unspecified. EDMS 14:11 Patient did not have IV access during this emergency room visit. rv Administered Medications: No medications were administered Outcome: 13:52 Discharge ordered by . pm1 14:11 Discharged to home ambulatory. rv 14:11 Condition: good 14:11 Discharge instructions given to patient, Instructed on discharge instructions, follow up and referral plans. Demonstrated understanding of instructions, follow-up care. 14:12 Patient left the ED. rv Signatures: Dispatcher [employer] Elena Mckenzie RN RN aj1 Mari Balbuena Patrick, ROTOR CASTING MACHINE SETUP OPERATOR ROTOR CASTING MACHINE SETUP OPERATOR pm1 Nicole Andrade RN RN Orlando Eduardo RN RN rv
--- NOTE | 2019-06-12 13:54 | EDPHYS ---
Physician Documentation [facility] Name: Nicolasa Rose Age: 24 yrs Sex: Female : 1995 Arrival Date: 06/12/2019 Time: 10:03 Bed 30 Private MD: ED Physician Kenny Storey HPI: 06/12 10:33 This 24 yrs old Female presents to ER via Ambulatory with complaints of HCG pm1 recheck. 10:34 The patient presents to the emergency department with abdominal pain, of the suprapubic pm1 area, that started 4 day(s) ago, described as crampy. Associated signs and symptoms: Pertinent negatives: chest pain, diarrhea, dysuria, fever, nausea, shortness of breath, vomiting. Patient was seen here in the ER on 06/08/2019 for abdominal cramping and was instructed to return to the ER in 48 hours for repeat HCG level. 10:34 Patient reports that she primarily has pelvic cramping at night time. 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 - Social history:: Smoking status: Patient/guardian denies using tobacco. - Ebola Screening: : No symptoms or risks identified at this time. ROS: 10:34 Constitutional: Negative for fever, chills, and weight loss, Eyes: Negative for injury, pm1 pain, redness, and discharge, ENT: Negative for injury, pain, and discharge, Neck: Negative for injury, pain, and swelling, Cardiovascular: Negative for chest pain, palpitations, and edema, Respiratory: Negative for shortness of breath, cough, wheezing, and pleuritic chest pain. 10:34 Back: Negative for injury and pain, MS/Extremity: Negative for injury and deformity, Skin: Negative for injury, rash, and discoloration, Neuro: Negative for headache, weakness, numbness, tingling, and seizure. 10:34 Abdomen/GI: Positive for abdominal cramps, of the suprapubic area, Negative for nausea, vomiting, and diarrhea. Exam: 10:34 Constitutional: This is a well developed, well nourished patient who is awake, alert, pm1 and in no acute distress. Head/Face: Normocephalic, atraumatic. Eyes: Pupils equal round and reactive to light, extra-ocular motions intact. Lids and lashes normal. Conjunctiva and sclera are non-icteric and not injected. Cornea within normal limits. Periorbital areas with no swelling, redness, or edema. ENT: Nares patent. No nasal discharge, no septal abnormalities noted. Tympanic membranes are normal and external auditory canals are clear. Oropharynx with no redness, swelling, or masses, exudates, or evidence of obstruction, uvula midline. Mucous membranes moist. Neck: Trachea midline, no thyromegaly or masses palpated, and no cervical lymphadenopathy. Supple, full range of motion without nuchal rigidity, or vertebral point tenderness. No Meningismus. Chest/axilla: Normal chest wall appearance and motion. Nontender with no deformity. No lesions are appreciated. Cardiovascular: Regular rate and rhythm with a normal S1 and S2. No gallops, murmurs, or rubs. Normal PMI, no JVD. No pulse deficits. Respiratory: Lungs have equal breath sounds bilaterally, clear to auscultation and percussion. No rales, rhonchi or wheezes noted. No increased work of breathing, no retractions or nasal flaring. Abdomen/GI: Soft, non-tender, with normal bowel sounds. No distension or tympany. No guarding or rebound. No evidence of tenderness throughout. Back: No spinal tenderness. No costovertebral tenderness. Full range of motion. Skin: Warm, dry with normal turgor. Normal color with no rashes, no lesions, and no evidence of cellulitis. MS/ Extremity: Pulses equal, no cyanosis. Neurovascular intact. Full, normal range of motion. 10:34 Neuro: Orientation: is normal, Motor: is normal, moves all fours. Vital Signs: 10:06 BP 137 / 78; Pulse 87; Resp 16; Temp 97.4; Pulse Ox 100% on R/A; Weight 95.25 kg; hb Height 5 ft. 5 in. (165.10 cm); Pain 0/10; 12:00 BP 125 / 76; Pulse 86; Resp 15; Pulse Ox 100% on R/A; rv 14:00 BP 121 / 77; Pulse 85; Resp 15; Pulse Ox 100% on R/A; rv 10:06 Body Mass Index 34.95 (95.25 kg, 165.10 cm) MDM: 10:15 Patient medically screened. [facility] 10:37 Data reviewed: vital signs. pm1 13:48 Counseling: I had a detailed discussion with the patient and/or guardian regarding: the pm1 historical points, exam findings, and any diagnostic results supporting the discharge/admit diagnosis, lab results, radiology results, the need for outpatient follow up, to return to the emergency department if symptoms worsen or persist or if there are any questions or concerns that arise at home. 06/12 10:15 Order name: Beta hcg; Complete Time: 11:40 pm1 06/12 11:06 Order name: Urine --Ancillary (enter results); Complete Time: 12:53 em1 06/12 10:28 Order name: Urine Dipstick-Ancillary (obtain specimen); Complete Time: 10:59 pm1 06/12 11:06 Order name: Urine Dipstick--Ancillary (enter results); Complete Time: 12:53 em1 06/12 11:44 Order name: US Transvaginal Ob pm1 Administered Medications: No medications were administered Disposition: 15:33 Co-signature as Attending Physician, Kenny Storey MD I agree with the assessment and [facility] plan of care. Disposition: 06/12/19 13:52 Discharged to Home. Impression: related conditions, unspecified, first trimester, Other abdominal pain, Intrauterine . - Condition is Stable. - Discharge Instructions: Abdominal Pain During . - Medication Reconciliation Form, Thank You Letter, Antibiotic Education, Prescription Opioid Use form. - Follow up: Emergency Department; When: As needed; Reason: Worsening of condition. Follow up: Private Physician; When: 2 - 3 days; Reason: Recheck today's complaints, Continuance of care, Re-evaluation by your physician. - Problem is new. - Symptoms have improved. Signatures: Dispatcher [employer] EDKenny Blair MD MD cha Marinas, Patrick, FIELD SERVICE COORDINATOR FIELD SERVICE COORDINATOR pm1 Nicole Andrade, RN RN Orlando Eduardo, OWEN RN rv Corrections: (The following items were deleted from the chart) 13:53 13:52 06/12/2019 13:52 Discharged to Home. Impression: related conditions, pm1 unspecified, first trimester; Other abdominal pain; Intrauterine . Condition is Stable. Forms are Medication Reconciliation Form, Thank You Letter, Antibiotic Education, Prescription Opioid Use. pm1 14:12 13:53 06/12/2019 13:52 Discharged to Home. Impression: related conditions, rv unspecified, first trimester; Other abdominal pain; Intrauterine . Condition is Stable. Forms are Medication Reconciliation Form, Thank You Letter, Antibiotic Education, Prescription Opioid Use. Follow up: Emergency Department; When: As needed; Reason: Worsening of condition. Follow up: Private Physician; When: 2 - 3 days; Reason: Recheck today's complaints, Continuance of care, Re-evaluation by your physician. Problem is new. Symptoms have improved. pm1
--- NOTE | 2019-06-12 14:06 | RAD REPORT ---
EXAM DESCRIPTION: US - Transvaginal OB - 06/12/2019 1:46 pm CLINICAL HISTORY: with pelvic pain FINDINGS: The uterus measures 10 x 5 x 5 centimeters. .A gestational sac is present within the end ometrium. The sac measures 5 x 3 x 3 millimeters. A yolk sac is not seen. A pole is not demonst rated Right and left ovary appear normal. . An adnexal mass is not noted. No significant free fluid is seen. IMPRESSION: Sac within the endometrium may represent a normal intrauterine in which the y olk sac/ pole is not seen secondary to the early gestation. Estimate gestational age would equal 5 weeks 0 days. Other considerations include an incomplete and even a pseudo gestational sac associated with an ectopic . Serial beta HCG levels and a followup endovaginal sonogram in 1 week recommended
[2019-06-12 14:32] VITALS: TEMP 97.4; O2SAT 100
[2019-06-12 14:35] VITALS: BP 121/77
== END 2019-06-12 14:12 | disposition home or self-care (01) ==
LOC: ER 09:59
DX: O26.891 Other specified pregnancy related conditions, first trimester (principal); Z88.0 Allergy status to penicillin
CPT/HCPCS: 36415; 76817; 81003; 81025; 84702; 99283

== ENCOUNTER 2019-06-18 10:04 | Emergency (ER) | payer OTHER ==
--- OUTSIDE RECORDS SUMMARY | 2019-06-18 10:06 | XMS REPORT ---
[...] Start Date End Date Status Dosage Diflucan [facility] [id number] 150 MG Orally March 16, Active 1 tablet Take one now and 2018 repeat dose in 72h Results No Known Results Summary Purpose eClinicalWorks Submission
--- OUTSIDE RECORDS SUMMARY | 2019-06-18 10:06 | XMS REPORT ---
:1995 [facility] Address [address] [place] [address] Care Team Providers Name Role Phone Unavailable Unavailable Unavailable Problems This patient has no known problems. Allergies, Adverse Reactions, Alerts This patient has no known allergies or adverse reactions. Medications This patient has no known medications.
--- OUTSIDE RECORDS SUMMARY | 2019-06-18 10:07 | XMS REPORT | Summary of Care ---
:1995 Author Organization [facility] - Health Address [address] [place] [address] Care Team Providers Name Role Phone Brian Mckeon MD Primary Care Provider Unavailable Encounter Details Date Type Department Care Team Description 06/15/2019 Orders Only [facility] Doctor Unassigned, No [address] [facility] [place] [address] [address] [place] [phone] Allergies Active Allergy Reactions Severity Noted Date Comments Aripiprazole Rash 10/09/2015 Penicillins Rash 10/09/2015 documented as of this encounter (statuses as of 06/15/2019) Medications No known medicationsdocumented as of this encounter (statuses as of 06/15/2019) Active Problems Problem Noted Date 40 weeks gestation of 04/01/2016 Active labor at term 04/01/2016 Liveborn , of reyna , born in hospital by vaginal 2015 delivery Common Discomforts of 01/05/2016 Overview: Round ligament pain. documented as of this encounter (statuses as of 06/15/2019) Social History Tobacco Use Types Packs/Day Years Used Date Never Smoker Smokeless Tobacco: Never Used Alcohol Use Drinks/Week oz/Week Comments No 0 Standard drinks or equivalent 0.0 Sex Assigned at Date Recorded Not on file Job Start Date Occupation Industry Not on file Not on file Not on file Travel History Travel Start Travel End No recent travel history available. documented as of this encounter Last Filed Vital Signs Not on filedocumented in this encounter Plan of Treatment Date Type Specialty Care Team Description 06/15/2019 Nurse Visit Obstetrics & Gynecology Nurse, [facility] Health Maintenance Due Date Last Done Comments VARICELLA VACCINES (1 of 2 - 13+ 2006 2-dose series) HPV VACCINES (1 - Female 3-dose 2008 series) DTaP,Tdap,and Td Vaccines (1 - 2012 Tdap) PAP SMEAR 2014 INFLUENZA VACCINE (#1) 2019 PNEUMOCOCCAL 0-64 YEARS COMBINED Aged Out No longer eligible based on SERIES patient's age to complete this topic documented as of this encounter Procedures Procedure Name Priority Date/Time Associated Diagnosis Comments ASSIGNMENT OF BENEFITS Routine 06/15/2019 9:37 AM CDT documented in this encounter Results Not on filedocumented in this encounter
--- OUTSIDE RECORDS SUMMARY | 2019-06-18 10:07 | XMS REPORT ---
[...] End Date Status Dosage Date Flonase NDC [id number] 50 MCG/ACT Sep 18, Active 2 sprays Nasally Once a 2018 each day nostril prn [place] NDC 0 Active not defined Results No Known Results Summary Purpose eClinicalWorks Submission
--- OUTSIDE RECORDS SUMMARY | 2019-06-18 10:07 | XMS REPORT | Summary of Care ---
:1995 Author Organization [facility] - Health Address [address] [place] [id number] Care Team Providers Name Role Phone Brian Mckeon MD Primary Care Provider Unavailable Reason for Visit Reason Comments MISSED MENSES Encounter Details Date Type Department Care Team Description 06/15/2019 Nurse Visit [facility] Women's RodriguezMague MD [address] [place], [place] [address] [address] [place] [address] Missed menses ([facility] Nurse, [facility]) [address] [place] [address], [address] [place] [address] Allergies Active Allergy Reactions Severity Noted Date Comments Aripiprazole Rash 10/09/2015 Penicillins Rash 10/09/2015 documented as of this encounter (statuses as of 06/15/2019) Medications Medication Sig Dispensed Refills Start Date End Date Status AMETHIA 0.15 mg-30 mcg Take 1 tablet 0 05/06/2019 Active (84)/10 mcg (7) per orally once daily tablet at the same time. documented as of this encounter (statuses as of 06/15/2019) Active Problems Problem Noted Date Obesity (BMI 30-39.9) 06/15/2019 40 weeks gestation of 04/01/2016 Active labor [...] of this encounter Last Filed Vital Signs Vital Sign Reading Time Taken Comments Blood Pressure 109/70 06/15/2019 10:15 AM CDT Pulse 63 06/15/2019 10:15 AM CDT Temperature 37.1 C (98.7 F) 06/15/2019 10:15 AM CDT Respiratory Rate 18 06/15/2019 10:15 AM CDT Oxygen Saturation - - Inhaled Oxygen Concentration - - Weight 105 kg (231 lb 6.4 oz) 06/15/2019 10:15 AM CDT Height 165.1 cm (5' 5") 06/15/2019 10:15 AM CDT Body Mass Index 38.51 06/15/2019 10:15 AM CDT documented in this encounter Patient Instructions Patient InstructionsRossy Swift RN - 06/15/2019 10:00 AM CDT Your exam today shows that you are . symptoms During your bodys hormones change. This causes physical and emotional changes. This is normal. Knowing what to expect is important for your piece of mind and so you know when to seek help for a problem. Here are some of the most common symptoms: Morning sickness or nausea. This can happen any time of the day or night. Tender, swollen breasts Need to urinate frequently Tiredness or fatigue Dizziness Indigestion or heartburn Food cravings or turn-offs Constipation Emotional changes. This can range from anxiety to excitement to depression. General care for a healthy Here are things you can do to help make sure your baby is born healthy: Rest when you feel tired. This is especially true in the later months of . Drink more fluids. Your body needs more fluids than you may be used to. Drink 8 to10 glasses of juice, milk, or water every day. Eat well-balanced meals. Eat at regular times to give your body enough protein. You can expect togain about 30 pounds during the . Dont try to diet or lose weight while you are . Take a vitamin every day. This helps you meet the extra nutritional needs of . Dont take any other medicine during your unless your healthcare provider tells you to. This includes prescription medicines and those you buy over the counter. Many medicines can harm the growing baby. If you have nausea or vomiting, dont eat greasy or fried foods. Eat several smaller meals throughout the day rather than 3 large meals. If you smoke, you must stop. The nicotine you breathe in goes right to the baby. Stay away from alcohol, even in moderate amounts. Daily drinking will harm your baby and can cause permanent brain damage. Dont use recreational drugs, especially cocaine, crack, and heroin. These will harm your baby.Also avoid marijuana. If you were using recreational drugs or prescribed medicine when you found out that you were , talk with your healthcare provider about possible effects on your growing baby. If you have medical problems that you need to take medicine for, talk with your healthcare provider. Follow-up care Call your healthcare provider to arrange for care. care is important. You can seeyour family provider, a specialist (extrusion technician ), or a primary care clinic. When to seek medical advice Call your healthcare provider right awayif any of these occur: Vaginal bleeding Pain in your belly (abdomen) or back that is moderate or severe Lots of vomiting, or you cant keep any fluids down for 6 hours Burning feeling when you urinate Headache, dizziness, or rapid weight gain Fever Vision changes or blurred vision Date Last Reviewed: 07/10/201619995345-1970 [employer]. [address] [place] [address]. All rights reserved. This information is not intended as a substitute for professional medical care. Always follow your healthcare professional's instructions. documented in this encounter Progress Notes Rossy Swift RN - 06/15/2019 10:00 AM CDTPt here for confirmation. UPT +. Proof of completed. Pt to RTC for new OB visit.Understanding verbalized. documented in this encounter Plan of Treatment Health Maintenance Due Date Last Done Comments [...] Procedure Name Priority Date/Time Associated Diagnosis Comments POCT TEST Routine 06/15/2019 10:30 AM Missed menses Results for this CDT procedure are in the results section. documented in this encounter Results POCT TEST (06/15/2019 10:30 AM CDT) POCT PREG Positive On board controls acceptable Yes with C Line POCT PREG LOT # POCT PREG TEST DATE Specimen Urine - URINE, UNSPECIFIED SOURCE Narrative Performed At accurate development and interpretation of all internal controls documented in this encounter Visit Diagnoses Diagnosis Missed menses - Primary Absence of menstruation documented in this encounter
--- NOTE | 2019-06-18 10:34 | EDPHYS ---
Physician Documentation [facility] Name: Nicolasa Rose Age: 24 yrs Sex: Female : 1995 Arrival Date: 06/18/2019 Time: 10:08 Bed 18 Private MD: Milton Novak ED Physician Luciano Batista HPI: 06/18 10:28 This 24 yrs old Female presents to ER via Ambulatory with complaints of rn repeat ultra sound. 10:28 The estimated gestational age is 5 weeks. Previous pregnancies: in previous pregnancies rn patient has had. The patient has experienced similar episodes in the past. The patient has been recently seen at the [facility] Emergency Department. Seen twice this past week, 2 ultrasounds showing intrauterine . Denies abd pain/vaginal bleeding/cramping/discharge/urinary symptoms. States feels fine, doesn't have OB, told she needed repeat ultrasound so came here. . Historical: - Allergies: 10:12 Abilify; aa5 10:12 PENICILLINS; aa5 - PMHx: 10:12 Anxiety; Depression; aa5 - Immunization history:: Flu vaccine is not up to date. - Social history:: Smoking status: Patient/guardian denies using tobacco. - Ebola Screening: : No symptoms or risks identified at this time. - Family history:: not pertinent. - Hospitalizations: : No recent hospitalization is reported. ROS: 10:28 Constitutional: Negative for fever, chills, and weight loss, Abdomen/GI: Negative for rn abdominal pain, nausea, vomiting, diarrhea, and constipation, Back: Negative for injury and pain, : Negative for injury, bleeding, discharge, and swelling. Exam: 10:28 Constitutional: This is a well developed, well nourished patient who is awake, alert, rn and in no acute distress. Cardiovascular: Regular rate and rhythm. No pulse deficits. Respiratory: No increased work of breathing, no retractions or nasal flaring. Abdomen/GI: soft, non-tender Vital Signs: 10:12 BP 118 / 65; Pulse 77; Resp 16 S; Temp 97.6(TE); Pulse Ox 99% on R/A; Weight 104.78 kg aa5 (R); Height 5 ft. 5 in. (165.10 cm) (R); Pain 0/10; 10:12 Body Mass Index 38.44 (104.78 kg, 165.10 cm) aa5 MDM: 10:15 Patient medically screened. rn 10:28 Differential diagnosis: intrauterine , threatened . Data reviewed: rn vital signs, nurses notes, old medical records, and as a result, I will discharge patient. Counseling: I had a detailed discussion with the patient and/or guardian regarding: the historical points, exam findings, and any diagnostic results supporting the discharge/admit diagnosis, the need for outpatient follow up, to return to the emergency department if symptoms worsen or persist or if there are any questions or concerns that arise at home. Special discussion: I discussed with the patient/guardian in detail that at this point there is no indication for admission to the hospital. It is understood, however, that if the symptoms persist or worsen the patient needs to return immediately for re-evaluation. Based on the history and exam findings, there is no indication for further emergent testing or inpatient evaluation. I discussed with the patient/guardian the need to see the OB Gyne specialist for further evaluation of the symptoms. ED course: Pt asymptomatic, previous u/s shows intrauterine , too early to detect FHT, no previous , no vaginal bleeding or pain. Will dc home with OB f/u for normally scheduled OB u/s. . Administered Medications: No medications were administered Disposition: 06/18/19 10:33 Discharged to Home as Medical Screen. Impression: Intrauterine . - Condition is Stable. - Discharge Instructions: First Trimester of . - Medication Reconciliation Form, Thank You Letter, Antibiotic Education, Prescription Opioid Use form. - Follow up: Private Physician; When: As needed; Reason: Recheck today's complaints, Re-evaluation by your physician. - Problem is an ongoing problem. - Symptoms have improved. Signatures: Luciano Batista MD MD rn Calderon, Audri RN RN aa5 Vickey Myles RN RN bp Corrections: (The following items were deleted from the chart) 10:33 10:33 06/18/2019 10:33 Discharged to Home. Impression: Intrauterine . rn Condition is Stable. Forms are Medication Reconciliation Form, Thank You Letter, Antibiotic Education, Prescription Opioid Use. Follow up: Private Physician; When: As needed; Reason: Recheck today's complaints, Re-evaluation by your physician. Problem is an ongoing problem. Symptoms have improved. rn 10:42 10:33 06/18/2019 10:33 Discharged to Home as Medical Screen. Impression: Intrauterine bp . Condition is Stable. Forms are Medication Reconciliation Form, Thank You Letter, Antibiotic Education, Prescription Opioid Use. Follow up: Private Physician; When: As needed; Reason: Recheck today's complaints, Re-evaluation by your physician. Problem is an ongoing problem. Symptoms have improved. rn
--- NOTE | 2019-06-18 10:34 | ER ---
Nurse's Notes [facility] Name: Nicolasa Rose Age: 24 yrs Sex: Female : 1995 Arrival Date: 06/18/2019 Time: 10:08 Bed 18 Private MD: Milton Novak Diagnosis: Intrauterine Presentation: 06/18 10:11 Presenting complaint: Patient states: "I am and I came here and they told me aa5 to get a repeat ultrasound but I don't have a doctor yet". Pt denies pain, denies vaginal bleeding. Transition of care: patient was not received from another setting of care. Onset of symptoms was June 2019. Risk Assessment: Do you want to hurt yourself or someone else? Patient reports no desire to harm self or others. Initial Sepsis Screen: Does the patient meet any 2 criteria? No. Patient's initial sepsis screen is negative. Does the patient have a suspected source of infection? No. Patient's initial sepsis screen is negative. Care prior to arrival: None. 10:11 Method Of Arrival: Ambulatory aa5 10:11 Acuity: ROSENDO 5 bp Triage Assessment: 10:20 General: Appears in no apparent distress. comfortable, Behavior is cooperative, bp appropriate for age, anxious. Pain: Denies pain. EENT: No deficits noted. Neuro: No deficits noted. Cardiovascular: No deficits noted. Respiratory: No deficits noted. GI: No signs and/or symptoms were reported involving the gastrointestinal system. : No signs and/or symptoms were reported regarding the genitourinary system. Derm: No deficits noted. Musculoskeletal: No deficits noted. Historical: - Allergies: 10:12 Abilify; aa5 10:12 PENICILLINS; aa5 - PMHx: 10:12 Anxiety; Depression; aa5 - Immunization history:: Flu vaccine is not up to date. - Social history:: Smoking status: Patient/guardian denies using tobacco. - Ebola Screening: : No symptoms or risks identified at this time. - Family history:: not pertinent. - Hospitalizations: : No recent hospitalization is reported. Screenin:21 Abuse screen: Denies threats or abuse. Denies injuries from another. Nutritional bp screening: No deficits noted. Tuberculosis screening: No symptoms or risk factors identified. Fall Risk None identified. Assessment: 10:20 General: SEE TRIAGE NOTE. bp 10:41 Reassessment: PT MEDICALLY SCREENED, PER MD. bp Vital Signs: 10:12 BP 118 / 65; Pulse 77; Resp 16 S; Temp 97.6(TE); Pulse Ox 99% on R/A; Weight 104.78 kg aa5 (R); Height 5 ft. 5 in. (165.10 cm) (R); Pain 0/10; 10:12 Body Mass Index 38.44 (104.78 kg, 165.10 cm) aa5 ED Course: 10:08 Patient arrived in ED. mr 10:08 Milton Novak MD is Private Physician. mr 10:11 Arm band placed on. aa5 10:12 Triage completed. aa5 10:15 Luciano Batista MD is Attending Physician. rn 10:20 Vickey Myles, OWEN is Primary Nurse. bp 10:21 Patient has correct armband on for positive identification. Bed in low position. Call bp light in reach. Side rails up X2. Adult w/ patient. 10:41 No provider procedures requiring assistance completed. Patient did not have IV access bp during this emergency room visit. Administered Medications: No medications were administered Outcome: 10:33 Discharge ordered by MD. rn 10:41 Medical screen evaluation completed per provider. Patient declined treatment. bp 10:41 Condition: stable 10:41 Discharge instructions given to patient, Instructed on discharge instructions, follow up and referral plans. Demonstrated understanding of instructions, follow-up care. 10:42 Patient left the ED. bp Signatures: Arsh Lamar mr Luciano Batista MD MD rn Calderon, Audri, RN RN [facility] Vickey Myles RN RN bp Corrections: (The following items were deleted from the chart) 10:20 10:11 Acuity: ROSENDO 3 aa5 bp
== END 2019-06-18 10:42 | disposition home or self-care (01) ==
LOC: ER 10:04
DX: O26.891 Other specified pregnancy related conditions, first trimester (principal); Z3A.01 Less than 8 weeks gestation of pregnancy; Z88.0 Allergy status to penicillin; Z88.8 Allergy status to other drugs, medicaments and biological substances
CPT/HCPCS: 99281

== ENCOUNTER 2019-07-10 07:03 | Emergency (ER) | payer OTHER ==
--- NOTE | 2019-07-10 07:25 | ER ---
Nurse's Notes [facility] Name: Nicolasa Rose Age: 24 yrs Sex: Female : 1995 Arrival Date: 07/10/2019 Time: 07:06 Bed 15 Private MD: Diagnosis: Paresthesia of skin Presentation: 07/10 07:06 Presenting complaint: Patient states: Numbness to right side of face and right hand aa5 that began last night. Pt states "it comes and goes and last night it lasted about 30 minutes and this morning about 10 minutes". Pt states "I came in because I get this when I get anxiety but it normally doesn't last this long". Pt c/o mild headache. Pt reports being 9 weeks . 07:06 Transition of care: patient was not received from another setting of care. Onset of aa5 symptoms was July 09, 2019. Risk Assessment: Do you want to hurt yourself or someone else? Patient reports no desire to harm self or others. Initial Sepsis Screen: Does the patient meet any 2 criteria? No. Patient's initial sepsis screen is negative. Does the patient have a suspected source of infection? No. Patient's initial sepsis screen is negative. Care prior to arrival: None. 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 - Ebola Screening: : No symptoms or risks identified at this time. - Family history:: not pertinent. - Social history:: Smoking status: Patient/guardian denies using tobacco. - Hospitalizations: : No recent hospitalization is reported. Screenin:10 Abuse screen: Denies threats or abuse. Nutritional screening: No deficits noted. rb1 Tuberculosis screening: No symptoms or risk factors identified. Fall Risk None identified. Assessment: 07:10 General: Appears in no apparent distress. comfortable, Behavior is calm, cooperative, rb1 Denies fever. Pain: Complains of pain in headache Pain currently is 3 out of 10 on a pain scale. Neuro: Level of Consciousness is awake, alert, obeys commands, Oriented to person, place, time, situation, Car Refinisher are equal bilaterally Moves all extremities. Gait is steady, Speech is normal, Facial symmetry appears normal, Pupils are PERRLA, Reports headache frontal area, numbness in right hand and right side of face Pt. stated, "I think it's anxiety, but with the baby I thought I better get checked out.". Cardiovascular: Capillary refill < 3 seconds is brisk in bilateral fingers. Respiratory: Airway is patent Respiratory effort is even, unlabored, Respiratory pattern is regular, symmetrical. GI: No signs and/or symptoms were reported involving the gastrointestinal system. : No signs and/or symptoms were reported regarding the genitourinary system. Derm: Skin is pink, warm \\T\\ dry. Musculoskeletal: Range of motion: intact in all extremities. 07:39 Reassessment: Patient appears in no apparent distress at this time. No changes from rb1 previously documented assessment. Vital Signs: 07:07 BP 109 / 73; Pulse 78; Resp 16 S; Temp 97.8(TE); Pulse Ox 98% on R/A; Weight 104.33 kg aa5 (R); Height 5 ft. 5 in. (165.10 cm) (R); Pain 3/10; 07:07 Body Mass Index 38.27 (104.33 kg, 165.10 cm) aa5 ED Course: 07:06 Patient arrived in ED. ds1 07:06 Arm band placed on. aa5 07:08 Luciano Batista MD is Attending Physician. rn 07:10 Patient has correct armband on for positive identification. Bed in low position. Call rb1 light in reach. Side rails up X 1. Pulse ox on. NIBP on. 07:15 Triage completed. aa5 07:20 Gloria Meyer, RN is Primary Nurse. rb1 07:39 No provider procedures requiring assistance completed. Patient did not have IV access rb1 during this emergency room visit. Administered Medications: No medications were administered Outcome: 07:24 Discharge ordered by . rn 07:39 Patient left the ED. rb1 07:39 Discharged to home ambulatory. rb1 07:39 Condition: stable 07:39 Discharge instructions given to patient, Instructed on discharge instructions, follow up and referral plans. Demonstrated understanding of instructions, follow-up care, Prescriptions given X none Signatures: Xochitl Hayes ds1 Batista, MD MD jonel Wolf Audri, RN RN aa5 Gloria Meyer RN RN rb1 Corrections: (The following items were deleted from the chart) 07:16 07:06 Presenting complaint: Patient states: Numbness to right side of face and right aa5 hand that began last night. Pt states "it comes and goes and last night it lasted about 30 minutes and this morning about 10 minutes". Pt states "I came in because I get this when I get anxiety but it normally doesn't last this long". Pt c/o mild headache. aa5 07:17 07:06 Acuity: ROSENDO 3 aa5 aa5
--- NOTE | 2019-07-10 07:25 | EDPHYS ---
Physician Documentation [facility] Name: Nicolasa Rose Age: 24 yrs Sex: Female : 1995 Arrival Date: 07/10/2019 Time: 07:06 Bed 15 Private MD: ED Physician Luciano Batista HPI: 07/10 07:18 This 24 yrs old Female presents to ER via Ambulatory with complaints of rn Numbness Of Hand - 9 wks preg. 07:18 The patient or guardian reports numbness. The complaints affect the fingers of right rn hand. Onset: The symptoms/episode began/occurred this morning. Modifying factors: The symptoms are alleviated by nothing, the symptoms are aggravated by nothing. Severity of symptoms: At their worst the symptoms were very mild, in the emergency department the symptoms have improved. The patient has not experienced similar symptoms in the past. The patient has not recently seen a physician. Reports numbness of right hand, intermittent, lasts about 10 minutes, has happened before, states has had this before with headache and with anxiety as well. No head injury. No complaints. Currently asymptomatic. Dropped off children and then came here. Reports mild headache earlier with symptoms.. 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 - Ebola Screening: : No symptoms or risks identified at this time. - Family history:: not pertinent. - Social history:: Smoking status: Patient/guardian denies using tobacco. - Hospitalizations: : No recent hospitalization is reported. ROS: 07:18 Constitutional: Negative for fever, chills, and weight loss, Eyes: Negative for injury, rn pain, redness, and discharge, Neck: Negative for injury, pain, and swelling, Cardiovascular: Negative for chest pain, palpitations, and edema, Respiratory: Negative for shortness of breath, cough, wheezing, and pleuritic chest pain, Abdomen/GI: Negative for abdominal pain, nausea, vomiting, diarrhea, and constipation, MS/Extremity: Negative for injury and deformity, Skin: Negative for injury, rash, and discoloration, Neuro: Negative for weakness, and seizure Exam: 07:18 Constitutional: This is a well developed, well nourished patient who is awake, alert, rn and in no acute distress. Head/Face: Normocephalic, atraumatic. Eyes: Pupils equal round and reactive to light, extra-ocular motions intact. Lids and lashes normal. Conjunctiva and sclera are non-icteric and not injected. Cornea within normal limits. Periorbital areas with no swelling, redness, or edema. ENT: MMM Cardiovascular: Regular rate and rhythm. No pulse deficits. Respiratory: No increased work of breathing, no retractions or nasal flaring. Abdomen/GI: soft, non-tender Skin: Warm, dry with normal turgor. Normal color with no rashes, no lesions, and no evidence of cellulitis. MS/ Extremity: Pulses equal, no cyanosis. Neurovascular intact. Full, normal range of motion. Equal circumference. Neuro: Awake and alert, GCS 15, oriented to person, place, time, and situation. Cranial nerves II-XII grossly intact. Motor strength 5/5 in all extremities. Sensory grossly intact. Cerebellar exam normal. Vital Signs: 07:07 BP 109 / 73; Pulse 78; Resp 16 S; Temp 97.8(TE); Pulse Ox 98% on R/A; Weight 104.33 kg aa5 (R); Height 5 ft. 5 in. (165.10 cm) (R); Pain 3/10; 07:07 Body Mass Index 38.27 (104.33 kg, 165.10 cm) aa5 MDM: 07:08 Patient medically screened. rn 07:18 Differential diagnosis: anxiety, hyperventilation, carpal tunnel, complicated migraine. rn Data reviewed: vital signs, nurses notes, and as a result, I will discharge patient. Counseling: I had a detailed discussion with the patient and/or guardian regarding: the historical points, exam findings, and any diagnostic results supporting the discharge/admit diagnosis, the need for outpatient follow up, to return to the emergency department if symptoms worsen or persist or if there are any questions or concerns that arise at home. Special discussion: I discussed with the patient/guardian in detail that at this point there is no indication for admission to the hospital. It is understood, however, that if the symptoms persist or worsen the patient needs to return immediately for re-evaluation. Administered Medications: No medications were administered Disposition: 07/10/19 07:24 Discharged to Home. Impression: Paresthesia of skin. - Condition is Stable. - Discharge Instructions: Paresthesia. - Medication Reconciliation Form, Thank You Letter, Antibiotic Education, Prescription Opioid Use, Work release form form. - Follow up: Private Physician; When: As needed; Reason: Recheck today's complaints, Re-evaluation by your physician. - Problem is new. - Symptoms have improved. Signatures: Luciano Batista MD MD rn Calderon, Audri RN RN aa5 Gloria Meyer RN RN rb1 Corrections: (The following items were deleted from the chart) 07:20 07:18 Reports numbness of right hand, intermittent, lasts about 10 minutes, has rn happened before, states has had this before with headache and with anxiety as well. No head injury. No complaints. Currently asymptomatic. Dropped off children and then came here. . rn 07:39 07:24 07/10/2019 07:24 Discharged to Home. Impression: Paresthesia of skin. Condition rb1 is Stable. Forms are Medication Reconciliation Form, Thank You Letter, Antibiotic Education, Prescription Opioid Use. Follow up: Private Physician; When: As needed; Reason: Recheck today's complaints, Re-evaluation by your physician. Problem is new. Symptoms have improved. rn
[2019-07-10 07:44] VITALS: BP 109/73; TEMP 97.8; O2SAT 98
== END 2019-07-10 07:39 | disposition home or self-care (01) ==
LOC: ER 07:03
DX: O26.891 Other specified pregnancy related conditions, first trimester (principal); Z3A.09 9 weeks gestation of pregnancy; Z88.0 Allergy status to penicillin; Z88.8 Allergy status to other drugs, medicaments and biological substances
CPT/HCPCS: 99283

== ENCOUNTER 2019-08-20 16:46 | Emergency (ER) | payer OTHER ==
--- OUTSIDE RECORDS SUMMARY | 2019-08-20 16:47 | XMS REPORT ---
:1995 [facility] Address [address] [place] [address] Care Team Providers Name Role Phone Unavailable Unavailable Unavailable Problems This patient has no known problems. Allergies, Adverse Reactions, Alerts This patient has no known allergies or adverse reactions. Medications This patient has no known medications.
--- OUTSIDE RECORDS SUMMARY | 2019-08-20 16:48 | XMS REPORT ---
[...] Date End Date Status Dosage Diflucan [facility] [id number] 150 MG Orally March 16, Active 1 tablet Take one now and 2018 repeat dose in 72h Results No Known Results Summary Purpose eClinicalWorks Submission
--- OUTSIDE RECORDS SUMMARY | 2019-08-20 16:49 | XMS REPORT ---
[...] End Date Status Dosage Date Flonase NDC [id number] 50 MCG/ACT Sep 18, Active 2 sprays Nasally Once a 2018 each day nostril prn [place] NDC 0 Active not defined Results No Known Results Summary Purpose eClinicalWorks Submission
--- NOTE | 2019-08-20 17:47 | RAD REPORT ---
EXAM DESCRIPTION: US - OB Limited - 08/20/2019 5:41 pm CLINICAL HISTORY: , abdominal trauma, decreased movement COMPARISON: Ultrasound June 12 FINDINGS: Single intrauterine gestation is identified. heart rate is 151 BPM. movement w as observed during the examination. Anterior placenta shows no abruption, marginal hematoma or acute finding. No placenta previa. Cervix is long and closed. Amniotic fluid volume is normal. IMPRESSION: Limited Ob ultrasound study shows movement and normal heart rate. No abnormality of the anterior placenta. Amniotic fluid volume is normal.
--- NOTE | 2019-08-20 18:06 | EDPHYS ---
Physician Documentation [facility] Name: Nicolasa Rose Age: 24 yrs Sex: Female : 1995 Arrival Date: 08/20/2019 Time: 16:48 Bed DIS1 Private MD: ED Physician Luciano Batista HPI: 08/20 17:24 This 24 yrs old Female presents to ER via Ambulatory with complaints of 15 rn Wks Stomach Stepped On. 17:24 The patient presents to the emergency department with no movement. The estimated rn gestational age is 15 weeks. Associated signs and symptoms: Pertinent positives: abdominal pain, Pertinent negatives: chest pain, diarrhea, dysuria, fever, frequency, ruptured membranes, vaginal bleeding, vaginal discharge. The patient has not experienced similar symptoms in the past. The patient has not recently seen a physician. Reports is 15 weeks , was [place] [employer] yesterday, child approx 10-12 years old stepped on patient's abdomen, denies vaginal bleeding or leakage of fluid, reports mild soreness but has not felt baby move since yesterday. No other injuries. . 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 - Social history:: Smoking status: Patient/guardian denies using tobacco. - Ebola Screening: : Patient negative for fever greater than or equal to 101.5 degrees Fahrenheit, and additional compatible Ebola Virus Disease symptoms. - Family history:: not pertinent. - Hospitalizations: : No recent hospitalization is reported. ROS: 17:24 Constitutional: Negative for fever, chills, and weight loss, Cardiovascular: Negative rn for chest pain, palpitations, and edema, Respiratory: Negative for shortness of breath, cough, wheezing, and pleuritic chest pain, Abdomen/GI: + decreased movement, mild abd pain Back: Negative for injury and pain, : Negative for injury, bleeding, discharge, and swelling, MS/Extremity: Negative for injury and deformity, Neuro: Negative for headache, weakness, numbness, tingling, and seizure. Exam: 17:24 Constitutional: This is a well developed, well nourished patient who is awake, alert, rn and in no acute distress. Head/Face: Normocephalic, atraumatic. Abdomen/GI: soft, non-tender, no guarding or rebound MS/ Extremity: Pulses equal, no cyanosis. Neurovascular intact. Full, normal range of motion. Equal circumference. Neuro: Awake and alert, GCS 15, oriented to person, place, time, and situation. Cranial nerves II-XII grossly intact. Motor strength 5/5 in all extremities. Sensory grossly intact. Cerebellar exam normal. Normal gait. Vital Signs: 16:54 BP 122 / 54; Pulse 88; Resp 19; Temp 97.6(O); Pulse Ox 100% on R/A; Weight 104.33 kg rb1 (R); Height 5 ft. 5 in. (165.10 cm) (R); Pain 4/10; 18:15 BP 118 / 56; Pulse 84; Resp 16; Pulse Ox 100% on R/A; rv 16:54 Body Mass Index 38.27 (104.33 kg, 165.10 cm) rb1 MDM: 17:01 Patient medically screened. rn 18:02 Differential diagnosis: Normal IUP. Data reviewed: vital signs, nurses notes, rn radiologic studies, ultrasound, and as a result, I will discharge patient. Counseling: I had a detailed discussion with the patient and/or guardian regarding: the historical points, exam findings, and any diagnostic results supporting the discharge/admit diagnosis, radiology results, the need for outpatient follow up, to return to the emergency department if symptoms worsen or persist or if there are any questions or concerns that arise at home. Special discussion: I discussed with the patient/guardian in detail that at this point there is no indication for admission to the hospital. It is understood, however, that if the symptoms persist or worsen the patient needs to return immediately for re-evaluation. ED course: U/S normal, shows IUP, no free fluid, + movement and normal FHTs. 08/20 17:06 Order name: OB Limited; Complete Time: 18:02 rn Administered Medications: No medications were administered Disposition: 08/20/19 18:04 Discharged to Home. Impression: Blunt abdominal trauma during , Person with feared health complaint in whom no diagnosis is made. - Condition is Stable. - Discharge Instructions: Abdominal Pain During . - Medication Reconciliation Form, Thank You Letter, Antibiotic Education, Prescription Opioid Use form. - Follow up: Private Physician; When: As needed; Reason: Recheck today's complaints, Re-evaluation by your physician. - Problem is new. - Symptoms have improved. Signatures: Dispatcher [employer] EDMS Luciano Batista MD MD rn Barber, Rebecca, RN RN [facility] [place] Eduardo RN RN Corrections: (The following items were deleted from the chart) 17:29 17:24 Constitutional: This is a well developed, well nourished patient who is awake, rn alert, and in no acute distress. Head/Face: Normocephalic, atraumatic. Abdomen/GI: soft, non-tender, no guarding or rebound rn 18:16 18:04 08/20/2019 18:04 Discharged to Home. Impression: Blunt abdominal trauma during rv ; Person with feared health complaint in whom no diagnosis is made. Condition is Stable. Forms are Medication Reconciliation Form, Thank You Letter, Antibiotic Education, Prescription Opioid Use. Follow up: Private Physician; When: As needed; Reason: Recheck today's complaints, Re-evaluation by your physician. Problem is new. Symptoms have improved. rn
--- NOTE | 2019-08-20 18:06 | ER ---
Nurse's Notes [facility] Name: Nicolasa Rose Age: 24 yrs Sex: Female : 1995 Arrival Date: 08/20/2019 Time: 16:48 Bed DIS1 Private MD: Diagnosis: Blunt abdominal trauma during ;Person with feared health complaint in whom no diagnosis is made Presentation: 08/20 16:51 Presenting complaint: Patient states: Pt. is 15 weeks and was at [facility] and [facility] someone stepped on her abdomen in the [place]. Denies vaginal bleeding or contractions. Transition of care: patient was not received from another setting of care. Onset of symptoms was August 19, 2019 at 17:15. Risk Assessment: Do you want to hurt yourself or someone else? Patient reports no desire to harm self or others. Initial Sepsis Screen: Does the patient meet any 2 criteria? No. Patient's initial sepsis screen is negative. Does the patient have a suspected source of infection? No. Patient's initial sepsis screen is negative. Care prior to arrival: None. 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 - Social history:: Smoking status: Patient/guardian denies using tobacco. - Ebola Screening: : Patient negative for fever greater than or equal to 101.5 degrees Fahrenheit, and additional compatible Ebola Virus Disease symptoms. - Family history:: not pertinent. - Hospitalizations: : No recent hospitalization is reported. Screenin:15 Abuse screen: Denies threats or abuse. Denies injuries from another. Nutritional rv screening: No deficits noted. Tuberculosis screening: No symptoms or risk factors identified. Fall Risk None identified. Assessment: 17:14 General: Appears in no apparent distress. comfortable, Behavior is calm, cooperative. rv Pain: Denies pain. Neuro: Level of Consciousness is awake, alert, obeys commands, Oriented to person, place, time, situation. Cardiovascular: Patient's skin is warm and dry. Respiratory: Airway is patent. GI: No signs and/or symptoms were reported involving the gastrointestinal system. : No signs and/or symptoms were reported regarding the genitourinary system. EENT: No signs and/or symptoms were reported regarding the EENT system. Derm: Skin is intact. Musculoskeletal: No signs and/or symptoms reported regarding the musculoskeletal system. Vital Signs: 16:54 BP 122 / 54; Pulse 88; Resp 19; Temp 97.6(O); Pulse Ox 100% on R/A; Weight 104.33 kg rb1 (R); Height 5 ft. 5 in. (165.10 cm) (R); Pain 4/10; 18:15 BP 118 / 56; Pulse 84; Resp 16; Pulse Ox 100% on R/A; rv 16:54 Body Mass Index 38.27 (104.33 kg, 165.10 cm) [facility] ED Course: 16:48 Patient arrived in ED. rg4 16:53 Triage completed. rb1 16:54 Arm band placed on right wrist. rb1 17:01 Luciano Batista MD is Attending Physician. rn 17:14 Orlando Eduardo, OWEN is Primary Nurse. rv 17:15 Patient has correct armband on for positive identification. Bed in low position. Call rv light in reach. Side rails up X 1. Pulse ox on. NIBP on. 17:42 US OB Limited In Process Unspecified. EDMS 18:16 No provider procedures requiring assistance completed. Patient did not have IV access rv during this emergency room visit. Administered Medications: No medications were administered Outcome: 18:04 Discharge ordered by . rn 18:16 Discharged to home ambulatory. rv 18:16 Condition: good 18:16 Discharge instructions given to patient, Instructed on discharge instructions, follow up and referral plans. Demonstrated understanding of instructions, follow-up care. 18:16 Patient left the ED. rv Signatures: Dispatcher [employer] EDMS Luciano Batista MD MD rn Barber, Rebecca RN RN rb1 Donna Hollins rg4 Orlando Eduardo RN RN rv Corrections: (The following items were deleted from the chart) 17:57 16:51 Acuity: ROSENDO 3 rb1 rb1
[2019-08-20 18:57] VITALS: TEMP 97.6; O2SAT 100
[2019-08-20 18:59] VITALS: BP 118/56
== END 2019-08-20 18:16 | disposition home or self-care (01) ==
LOC: ER 16:46
DX: O26.892 Other specified pregnancy related conditions, second trimester (principal); S38.1XXA Crushing injury of abdomen, lower back, and pelvis, initial encounter; W50.0XXA Accidental hit or strike by another person, initial encounter; Y93.89 Activity, other specified; Y92.89 Other specified places as the place of occurrence of the external cause; Z71.1 Person with feared health complaint in whom no diagnosis is made; Z88.0 Allergy status to penicillin; Z88.8 Allergy status to other drugs, medicaments and biological substances; F41.8 Other specified anxiety disorders
CPT/HCPCS: 76815; 99283

== ENCOUNTER 2019-10-31 03:22 | Emergency (ER) | payer OTHER ==
--- OUTSIDE RECORDS SUMMARY | 2019-10-31 03:24 | XMS REPORT ---
:1995 [facility] [address] [place] [address] Care Team Providers Name Role Phone Unavailable Unavailable Unavailable Problems This patient has no known problems. Allergies, Adverse Reactions, Alerts This patient has no known allergies or adverse reactions. Medications This patient has no known medications.
--- OUTSIDE RECORDS SUMMARY | 2019-10-31 03:25 | XMS REPORT ---
[...] Date Status Dosage Diflucan [facility] [id number] 150 MG Orally March 16, Active 1 tablet Take one now and 2018 repeat dose in 72h Results No Known Results Summary Purpose eClinicalWorks Submission
--- OUTSIDE RECORDS SUMMARY | 2019-10-31 03:26 | XMS REPORT ---
[...] End Date Status Dosage Date Flonase NDC [id number] 50 MCG/ACT Sep 18, Active 2 sprays Nasally Once a 2018 each day nostril prn [place] NDC 0 Active not defined Results No Known Results Summary Purpose eClinicalWorks Submission
--- NOTE | 2019-10-31 03:34 | ER ---
Nurse's Notes [facility] Name: Nicolasa Rose Age: 24 yrs Sex: Female : 1995 Arrival Date: 10/31/2019 Time: 03:24 Bed 5 Private MD: Diagnosis: Otitis media, unspecified, right ear Presentation: 10/31 03:27 Presenting complaint: Patient states: woke up with sore throat and cough, ear pain. started 0200. Transition of care: patient was not received from another setting of care. Onset of symptoms was October 31, 2019 at 02:00. Risk Assessment: Do you want to hurt yourself or someone else? Patient reports no desire to harm self or others. Initial Sepsis Screen: Does the patient meet any 2 criteria? No. Patient's initial sepsis screen is negative. Does the patient have a suspected source of infection? No. Patient's initial sepsis screen is negative. Note took ibuprofen. I am 25 weeks . Care prior to arrival: Medication(s) given: Motrin. 03:27 Method Of Arrival: Ambulatory 03:27 Acuity: ROSENDO 4 ch Triage Assessment: 03:28 General: Appears in no apparent distress. comfortable, Behavior is calm, cooperative, ch appropriate for age. Pain: Complains of pain in throat Pain currently is 8 out of 10 on a pain scale. EENT: Reports nasal congestion pain when swallowing. 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 - Social history:: Smoking status: Patient denies any tobacco usage or history of. Patient/guardian denies using alcohol, street drugs. - Ebola Screening: : Patient negative for fever greater than or equal to 101.5 degrees Fahrenheit, and additional compatible Ebola Virus Disease symptoms Patient denies exposure to infectious person Patient denies travel to an Ebola-affected area in the 21 days before illness onset No symptoms or risks identified at this time. Screenin:31 Abuse screen: Denies threats or abuse. Denies injuries from another. Nutritional ch screening: No deficits noted. Tuberculosis screening: No symptoms or risk factors identified. Fall Risk None identified. Assessment: 03:31 Respiratory: Airway is patent Respiratory effort is even, unlabored, Breath sounds are ch clear bilaterally. GI: No signs and/or symptoms were reported involving the gastrointestinal system. EENT: Throat is reddened. Derm: Skin is pink, warm \T\ dry. 03:47 Reassessment: Patient appears in no apparent distress at this time. Patient and/or ch family updated on plan of care and expected duration. Pain level reassessed. Patient is alert, oriented x 3, equal unlabored respirations, skin warm/dry/pink. Vital Signs: 03:28 Pulse 89; Resp 16; Temp 97.3; Pulse Ox 100% on R/A; Weight 104.33 kg; Height 5 ft. 5 ch in. (165.10 cm); Pain 6/10; 03:31 BP 103 / 72; ch 03:28 Body Mass Index 38.27 (104.33 kg, 165.10 cm) ED Course: 03:24 Patient arrived in ED. ds1 03:26 Larisa Sneed, OWEN is Primary Nurse. ch 03:27 Ronnie Craft MD is Attending Physician. tw4 03:28 Triage completed. ch 03:28 Arm band placed on left wrist. Patient placed in an exam room, on a stretcher. ch 03:31 Fall risk band placed. ch 03:31 No provider procedures requiring assistance completed. Patient did not have IV access ch during this emergency room visit. Administered Medications: 03:47 Drug: Tylenol 1000 mg Route: PO; 03:48 Follow up: Response: Medication administered at discharge. Outcome: 03:33 Discharge ordered by . tw4 03:47 Discharged to home ambulatory, with family. 03:47 Condition: stable 03:47 Discharge instructions given to patient, family, Instructed on discharge instructions, follow up and referral plans. medication usage, Demonstrated understanding of instructions, follow-up care, medications, Prescriptions given X 1. 03:48 Patient left the ED. Signatures: Larisa Sneed, OWEN RN Xochitl King ds1 Ronnie Craft MD MD tw4
--- NOTE | 2019-10-31 03:35 | EDPHYS ---
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 - Social history:: Smoking status: Patient denies any tobacco usage or history of. Patient/guardian denies using alcohol, street drugs. - Ebola Screening: : Patient negative for fever greater than or equal to 101.5 degrees Fahrenheit, and additional compatible Ebola Virus Disease symptoms Patient denies exposure to infectious person Patient denies travel to an Ebola-affected area in the 21 days before illness onset No symptoms or risks identified at this time. Vital Signs: 03:28 Pulse 89; Resp 16; Temp 97.3; Pulse Ox 100% on R/A; Weight 104.33 kg; Height 5 ft. 5 ch in. (165.10 cm); Pain 6/10; 03:31 BP 103 / 72; ch 03:28 Body Mass Index 38.27 (104.33 kg, 165.10 cm) MDM: 03:27 Patient medically screened. tw4 Administered Medications: 03:47 Drug: Tylenol 1000 mg Route: PO; 03:48 Follow up: Response: Medication administered at discharge. Disposition: 10/31/19 03:33 Discharged to Home. Impression: Otitis media, unspecified, right ear. - Condition is Stable. - Discharge Instructions: Otitis Media, Adult. - Prescriptions for cefaclor 500 mg Oral capsule - take 1 capsule by ORAL route every 8 hours for 7 days; 21 capsule. - Medication Reconciliation Form, Thank You Letter, Antibiotic Education, Prescription Opioid Use form. - Follow up: Private Physician; When: Upon discharge from the Emergency Department; Reason: Recheck today's complaints, Continuance of care. - Problem is new. - Symptoms have improved. 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 Pt denies CP, SOB fever or chills. Addendum: ROS: Respiratory : positive for cough negative for sputum production, SOB, WHITEHEAD ENT: positive for sore throat negative for difficulty swallowing, masses All other systems negative except as marked. 06:55 Addendum: PE: General Well develop well nourished female in NAD HEENT: PERRLA, EOMI, t w4 mild pharyngeal erythema Left TM mild erythema Resp: CTAB nomrla BS Cv: RRR, S1 S2 no murmurs no gallops. Signatures: Larisa Sneed, RN RN Ronnie Aj MD MD tw4 Corrections: (The following items were deleted from the chart) 10/31 03:48 03:33 10/31/2019 03:33 Discharged to Home. Impression: Otitis media, unspecified, right ch ear. Condition is Stable. Forms are Medication Reconciliation Form, Thank You Letter, Antibiotic Education, Prescription Opioid Use. Follow up: Private Physician; When: Upon discharge from the Emergency Department; Reason: Recheck today's complaints, Continuance of care. Problem is new. Symptoms have improved. tw4
[2019-10-31] MEDS ORDERED: ACETAMINOPHEN 500 MG TAB ONE (03:45)
[2019-10-31 17:37] VITALS: TEMP 97.3; O2SAT 100
[2019-10-31 17:38] VITALS: BP 103/72
== END 2019-10-31 03:48 | disposition home or self-care (01) ==
LOC: ER 03:22
DX: O26.892 Other specified pregnancy related conditions, second trimester (principal); O99.342 Other mental disorders complicating pregnancy, second trimester; F41.8 Other specified anxiety disorders; Z3A.25 25 weeks gestation of pregnancy
CPT/HCPCS: 99283

== ENCOUNTER 2020-04-09 14:05 | Emergency (ER) | payer OTHER ==
--- NOTE | 2020-04-09 15:39 | EDPHYS ---
Physician Documentation [facility] Name: Nicolasa Rose Age: 24 yrs Sex: Female : 1995 Arrival Date: 04/09/2020 Time: 14:08 Bed 25 Private MD: Milton Novak ED Physician Alejandro Rai HPI: 04/09 15:22 This 24 yrs old Female presents to ER via Ambulatory with complaints of kb Anxiety, Chest Tightness. 15:19 Pt reports she was put on Buspar when she was . States she is 2 months PP and kb the medication doesn't seem to be working like it did before. States she is having panic attacks at times that cause chest tightness so she wants something else. . 15:22 The patient presents to the emergency department with anxiety. Onset: The kb symptoms/episode began/occurred approx 4 months ago, during second trimester of . Past psychiatric history: Psychiatric medications include: Buspar. Associated signs and symptoms: Pertinent positives; anxiety, chest pain, Pertinent negatives: abdominal pain, chills, delusions, depression, fever, hallucinations, headache, homicidal ideation, nausea, night sweats, palpitations, paranoia, shortness of breath, substance abuse, suicide ideation, tremor, vomiting. Severity of symptoms: At their worst the symptoms were mild in the emergency department the symptoms have resolved. The patient has experienced similar episodes in the past. The patient has not recently seen a physician. Historical: - Allergies: 14:21 Abilify; em 14:21 PENICILLINS; em - Home Meds: 14:21 BuSpar Oral [Active]; em - PMHx: 14:21 Anxiety; Depression; em - PSHx: 14:21 None; em - Immunization history:: Adult Immunizations up to date. - Social history:: Smoking status: Patient denies any tobacco usage or history of. ROS: 15:18 Constitutional: Negative for fever, chills, and weight loss, Respiratory: Negative for kb shortness of breath, cough, wheezing, and pleuritic chest pain, Abdomen/GI: Negative for abdominal pain, nausea, vomiting, diarrhea, and constipation, Back: Negative for injury and pain, MS/Extremity: Negative for injury and deformity, Skin: Negative for injury, rash, and discoloration, Neuro: Negative for headache, weakness, numbness, tingling, and seizure. 15:18 Cardiovascular: Positive for chest tightness. 15:18 Psych: Positive for anxiety, Negative for depression, drug dependence, alcohol dependence, auditory hallucinations, visual hallucinations, homicidal ideation, insomnia, suicide gesture, suicidal ideation. Exam: 15:22 Constitutional: This is a well developed, well nourished patient who is awake, alert, kb and in no acute distress. Head/Face: Normocephalic, atraumatic. Chest/axilla: Normal chest wall appearance and motion. Nontender with no deformity. No lesions are appreciated. Cardiovascular: Regular rate and rhythm with a normal S1 and S2. No gallops, murmurs, or rubs. Normal PMI, no JVD. No pulse deficits. Respiratory: Lungs have equal breath sounds bilaterally, clear to auscultation and percussion. No rales, rhonchi or wheezes noted. No increased work of breathing, no retractions or nasal flaring. Abdomen/GI: Soft, non-tender, with normal bowel sounds. No distension or tympany. No guarding or rebound. No evidence of tenderness throughout. Skin: Warm, dry with normal turgor. Normal color with no rashes, no lesions, and no evidence of cellulitis. MS/ Extremity: Pulses equal, no cyanosis. Neurovascular intact. Full, normal range of motion. Neuro: Awake and alert, GCS 15, oriented to person, place, time, and situation. Cranial nerves II-XII grossly intact. Motor strength 5/5 in all extremities. Sensory grossly intact. Cerebellar exam normal. Normal gait. 15:22 Psych: Behavior/mood is pleasant, cooperative, Affect is calm, Oriented to person, place, time, Patient has no thoughts/intents to harm self or others. Judgement / Insight is normal. Memory is normal. Delusions/hallucinations are not present. 15:38 ECG was reviewed by the Attending Physician. Vital Signs: 14:19 BP 106 / 69; Pulse 94; Resp 18; Temp 97.4(TE); Pulse Ox 100% on R/A; Weight 95.25 kg; em Height 5 ft. 5 in. (165.10 cm); Pain 3/10; 14:19 Body Mass Index 34.95 (95.25 kg, 165.10 cm) em MDM: 15:04 Patient medically screened. kb 15:20 Data reviewed: vital signs, nurses notes. Data interpreted: Pulse oximetry: on room air kb is 100 %. Interpretation: normal. Counseling: I had a detailed discussion with the patient and/or guardian regarding: the historical points, exam findings, and any diagnostic results supporting the discharge/admit diagnosis, the need for outpatient follow up, a family practitioner, to return to the emergency department if symptoms worsen or persist or if there are any questions or concerns that arise at home. ED course: Pt educated to follow up with her OB that prescribed the Buspar to get a prescription for a different medication. Pt is asymptomatic at this time. States she only has chest tightness when she is having the panic attacks. Pt calm, eating crackers and playing on phone. No signs of distress. . 04/09 15:10 Order name: EKG; Complete Time: 15:11 kb 04/09 15:10 Order name: EKG - Nurse/Tech; Complete Time: 15:43 kb EC:38 Rate is 64 beats/min. Rhythm is regular. QRS [place] is Normal. MA interval is normal at kb 154 msec. QRS interval is normal at 80 msec. QT interval is normal at 392 msec. Administered Medications: No medications were administered Disposition: 15:56 Co-signature as Attending Physician, Alejandro Rai MD I agree with the assessment and kdr plan of care. Disposition: 04/09/20 15:39 Discharged to Home. Impression: Anxiety disorder, unspecified. - Condition is Stable. - Discharge Instructions: Panic Attacks, [id number]. - Medication Reconciliation Form, Thank You Letter, Antibiotic Education, Prescription Opioid Use form. - Follow up: Emergency Department; When: As needed; Reason: Worsening of condition. Follow up: Private Physician; When: 2 - 3 days; Reason: Recheck today's complaints, Continuance of care, Re-evaluation by your physician. Signatures: Yareli El, EGYPTOLOGIST-C BRETT-Alejandro Mendoza MD MD [facility] Cecil Rosen, OWEN WEAVER em Felisa Domingo RN RN ss Corrections: (The following items were deleted from the chart) 15:49 15:39 04/09/2020 15:39 Discharged to Home. Impression: Anxiety disorder, unspecified. ss Condition is Stable. Discharge Instructions: Panic Attacks, [id number]. Forms are Medication Reconciliation Form, Thank You Letter, Antibiotic Education, Prescription Opioid Use. Follow up: Emergency Department; When: As needed; Reason: Worsening of condition. Follow up: Private Physician; When: 2 - 3 days; Reason: Recheck today's complaints, Continuance of care, Re-evaluation by your physician. kb
--- NOTE | 2020-04-09 15:39 | ER ---
Nurse's Notes [facility] Name: Nicolasa Rose Age: 24 yrs Sex: Female : 1995 Arrival Date: 04/09/2020 Time: 14:08 Bed 25 Private MD: Milton Novak Diagnosis: Anxiety disorder, unspecified Presentation: 04/09 14:19 Chief complaint: Patient states: feels like i am having an anxiety attack this morning, em took a BuSpar to see if would help, feeling like chest tightness, denies fever or cough. Coronavirus screen: Proceed with normal triage. Patient denies a cough. Patient denies shortness of breath or difficulty breathing. Patient denies measured and/or subjective temperature greater than 100.4F prior to today's visit. Patient denies travel on a cruise ship or to a country the [facility] currently lists as an affected area. Patient denies contact with known and/or suspected case of COVID-19. Ebola Screen: Patient negative for fever greater than or equal to 101.5 degrees Fahrenheit, and additional compatible Ebola Virus Disease symptoms Patient denies exposure to infectious person. Patient denies travel to an Ebola-affected area in the 21 days before illness onset. No symptoms or risks identified at this time. Initial Sepsis Screen: Does the patient meet any 2 criteria? HR > 90 bpm. No. Patient's initial sepsis screen is negative. Does the patient have a suspected source of infection? No. Patient's initial sepsis screen is negative. Risk Assessment: Do you want to hurt yourself or someone else? Patient reports no desire to harm self or others. Onset of symptoms was April 09, 2020. 14:19 Method Of Arrival: Ambulatory em 14:19 Acuity: ROSENDO 3 em Historical: - Allergies: 14:21 Abilify; em 14:21 PENICILLINS; em - Home Meds: 14:21 BuSpar Oral [Active]; em - PMHx: 14:21 Anxiety; Depression; em - PSHx: 14:21 None; em - Immunization history:: Adult Immunizations up to date. - Social history:: Smoking status: Patient denies any tobacco usage or history of. Screenin:44 Abuse screen: Denies threats or abuse. Denies injuries from another. Nutritional ss screening: No deficits noted. Tuberculosis screening: Never had TB. Fall Risk None identified. Assessment: 15:44 General: Appears in no apparent distress. comfortable, Behavior is calm, cooperative, ss Denies fever, feeling ill, fatigue, chills. General: reports anxiety . Pain: Complains of pain in chest Pain does not radiate. Pain began 1 day ago. Is continuous. Neuro: Level of Consciousness is awake, alert, obeys commands, Oriented to person, place, time, situation, Moves all extremities. Full function Gait is steady, Speech is normal, Facial symmetry appears normal, Pupils are PERRLA. Cardiovascular: Capillary refill < 3 seconds in bilateral fingers. Respiratory: Respiratory effort is even, unlabored. GI: Patient currently denies diarrhea, nausea, vomiting. : No signs and/or symptoms were reported regarding the genitourinary system. EENT: Oral mucosa is moist. Derm: Skin is intact, is healthy with good turgor, Skin is dry, Skin is pink, warm \T\ dry. normal. Vital Signs: 14:19 BP 106 / 69; Pulse 94; Resp 18; Temp 97.4(TE); Pulse Ox 100% on R/A; Weight 95.25 kg; em Height 5 ft. 5 in. (165.10 cm); Pain 3/10; 14:19 Body Mass Index 34.95 (95.25 kg, 165.10 cm) em ED Course: 14:08 Patient arrived in ED. ag5 14:08 Milton Novak MD is Private Physician. ag5 14:21 Triage completed. em 14:21 Arm band placed on. em 15:03 Yareli El FNP-C is [facility]. kb 15:04 Alejandro Rai MD is Attending Physician. kb 15:44 Patient has correct armband on for positive identification. Bed in low position. Call ss light in reach. monitor and storage bin tender on. Pulse ox on. NIBP on. 15:44 No provider procedures requiring assistance completed. Patient did not have IV access ss during this emergency room visit. Patient maintains SpO2 saturation greater than 95% on room air. Administered Medications: No medications were administered Outcome: 15:39 Discharge ordered by . kb 15:44 Discharged to home ambulatory. ss 15:44 Condition: good 15:44 Discharge instructions given to patient, Instructed on discharge instructions, follow up and referral plans. Demonstrated understanding of instructions, follow-up care. 15:49 Patient left the ED. ss Signatures: Yareli El, ANITA WEST-Cecil Stephenson RN Felisa Hi RN RN Abdirashid Guzman ag5
[2020-04-09 15:54] VITALS: BP 106/69; TEMP 97.4; O2SAT 100
--- OUTSIDE RECORDS SUMMARY | 2020-04-09 18:52 | XMS REPORT | Summary of Care ---
:1995 Author Organization [facility] Address [address] [place] [id number] Care Team Providers Name Role Phone Milton Novak Primary Care Provider Reason for Visit Reason Comments ROUTINE VISIT Auth/Cert Status Reason Specialty Diagnoses / Procedures Referred By Kassidy farmer Referred To Contact Phlebotomy Diagnoses 36 weeks preg Adc Pob Lab Draw Procedures CBC with DIFF Professional Office [address] , [address] [place] [address] Phone: Fax: Encounter Details Date Type Department Care Team Description 01/16/2020 Routine [facility] Women's RodriguezMague am, MD High-risk , third trimester (Pr imary Dx); Visit Healthcare- [address] [place] [address] 36 weeks g estation of ; Song HUGGINS Maternal care for tachycardia duri ng [address] [place] [address] [address] [place] [phone] Allergies Active Allergy Reactions Severity Noted Date Comments Aripiprazole Rash 10/09/2015 Penicillins Rash 10/09/2015 documented as of this encounter (statuses as of 01/16/2020) Medications Medication Sig Dispensed Refills Start Date End Date Status PNV Take 1 30 capsule 8 07/03/2019 Active [id number] TAB-CAP/M2 by 1-dss-dha mouth daily. (VITAFOL FE+, WITH DOCUSATE,) 90 mg iron-1 mg -50 mg-200 mg CapIndications: High-risk in first trimester, 8 weeks gestation of FLUoxetine 10 mg Take 1 30 capsule 1 11/13/2019 A ctive capsuleIndication capsule by s: History of mouth daily. anxiety, History of depression cefdinir 300 mg 0 10/31/2019 Act sharath capsule busPIRone 5 mg Take 1 tablet 60 tablet 1 11/27/2019 Active tabletIndications by mouth 2 : History of (two) times anxiety daily. ondansetron 4 mg Take 1 tablet 30 tablet 1 10/07/2019 01/16/20 2 Discontinued tabletIndications by mouth 0 (P atient : Postprandial every 6 (six) R eported) nausea hours as needed for Nausea and Vomiting (N/V). pantoprazole 20 Take 1 tablet 30 tablet 1 10/07/2019 Discontinued mg EC by mouth 0 (Patient tabletIndications daily. Re ported) : Postprandial nausea documented as of this encounter (statuses as of 01/16/2020) Active Problems Problem Noted Date Morbid obesity with body mass index of 40.0-49.9 12/12 High-risk in third trimester 11/05/2019 Obesity (BMI 30-39.9) 06/15/2019 Estimated Date of Delivery Comments Yes 02/09/2020 Based on last menstr ual period of 05/05/2019 (Within Days) documented as of this encounter (statuses as of 01/16/2020) Resolved Problems Problem Noted Date Resolved Date 26 weeks gestation of 11/05/2019 12/03/19 20 Postprandial nausea 10/07/2019 11/05/2019 40 weeks gestation of 04/01/2016 10/07/20 19 Active labor at term 04/01/2016 10/07/2019 Liveborn infant, of reyna , born in hospital by 04/01/2016 10/07/2019 vaginal delivery Common Discomforts of 01/05/2016 10/07/20 19 Overview: Round ligament pain. documented as of this encounter (statuses as of 01/16/2020) Immunizations Name Administration Dates Next Due Influenza Virus Vaccine Quad .5 mL IM 6+ MO 08/02/2019 TDAP (ADACEL) VACCINE 12/03/2019 12/03/2029 documented as of this encounter Social History Tobacco Use Types Packs/Day Years Used Date Never Smoker Smokeless Tobacco: Never Used Alcohol Use Drinks/Week oz/Week Comments Not Currently 0 Standard drinks or equivalent 0.0 not since Estimated Date of Delivery Comments Yes 02/09/2020 Based on last menstr ual period of 05/05/2019 (Within Days) Sex Assigned at Date Recorded Not on file Job Start Date Occupation Industry Not on file Not on file Not on file Travel History Travel Start Travel End No recent travel history available. documented as of this encounter Last Filed Vital Signs Vital Sign Reading Time Taken Comments Blood Pressure 115/69 01/16/2020 3:44 PM CDT Pulse 86 01/16/2020 3:44 PM CDT Temperature 36.7 C (98.1 F) 01/16/2020 3:44 PM CDT Respiratory Rate 18 01/16/2020 3:44 PM CDT Oxygen Saturation - - Inhaled Oxygen Concentration - - Weight 114.3 kg (252 lb) 01/16/2020 3:44 PM CDT Height 165.1 cm (5' 5") 01/16/2020 3:44 PM CDT Body Mass Index 41.93 01/16/2020 3:44 PM CDT documented in this encounter Patient Instructions Patient InstructionsAngelita Lang MA - 01/16/2020 3:45 PM CDT Patient Education Recognizing Labor The beginning of labor is the beginning of . Youll start to feel strong contractions. Thats when the muscles of your uterus tighten up to help push your baby out during . Yes, labor has probably started Signs of labor include: Your contractions are getting stronger and more painful instead of weaker. Youll probably feelthem throughout your whole uterus. Your contractions are regular. This means that you feel them about every 5 to 10 minutes. And they are getting closer together. You have pink-colored or blood-streaked fluid from your vagina. You feel that the baby has "dropped" lower in your pelvis Your water breaks. It may be a gush or a slow trickle of clear fluid from your vagina. No, its probably not real labor Signs of false labor include: Your contractions arent regular or strong. You feel the contractions only in your lower uterus. Your contractions go away when you walk or change position. Your contractions go away after drinking fluids. When to call your healthcare provider Call your healthcare provider or clinic right away if you notice any of these signs: Fluid from your vagina, with or without contractions. Bleeding heavy enough that you need a sanitary pad. You dont feel your baby moving as much as before. NOTE: Contractions are timed by both of these measures: The length of each contraction from its start to its finish. How far apart the contractions arethe time between the start of one contraction and the start of the next contraction. [employer] josh reviewed this educational content on 07/10/201719995971-3609 [employer]. [address] [place] [address], [place] [address]. All rights reserved. This information is not intended as a substitute for professional medical care. Always follow your healthcare professional's instructions. Patient Education Stages of Labor Labor has 3 stages. Your healthcare provider may talk about the progress of your labor with certain words. One of these is your babys position. Another is your babysstation. And the effacement and dilation of your cervix will be noted. Read below to learn about these terms and the 3 stages of labor. Your baby moves into position Position is your babys placement inyour uterus. Your baby may be facing left or right. He or she may be head first or feet first. Station refers to how far your baby has moved down intoyour pelvic cavity. First stage of labor During the first stage of labor, contractions of the uterus help your cervix thin (efface). They also help it widen (dilate). This will help your baby pass through the canal (vagina). At first your contractions will not come that often or last that long. But as time passes, they will come more often, they may be more painful, and they will last longer. They will last about 30 to 60 seconds each. The first stage of labor lasts until the cervix is fully dilated. Second stage of labor When your cervix is fully dilated, the second stage of labor begins. In this stage, you will have stronger contractions of your uterus that will help your baby move down the canal. They may happen every 2 to 5minutes. They may last from 45 to 90 seconds each. Your healthcare provider will ask you to push with each contraction. Try to rest between the contractions if you can. Your baby is delivered at the end of this stage of labor. Third stage of labor The third stage of labor comes after your baby is born. This is when the afterbirth (placenta) comesout ofyour uterus. Your uterus will continue tocontract. But the contractionsare much milder than before. [employer] last reviewed this educational content on 07/10/201719999157-1874 [employer], [employer]. [address] [place] [address], [place] [address]. All rights reserved. This information is not intended as a substitute for professional medical care. Always follow your healthcare professional's instructions. Patient Education Labor and Childbirth: Active Labor During active labor, your contractions will be stronger and more rhythmic than with early labor. They peak and subside like waves. They may happen2 to3 minutes apart and last about 45 to 60 seconds. This part of labor can be hard work. But it is often shorter than early labor. When you reach active labor, exams and tests will be done to see how you and your baby are doing. Your cervix may dilate 4 to 8 centimeters during the first part of active labor. Evaluating you and your baby An exam tells how you and your baby are responding to contractions. Your blood pressure, temperature, and pulse will be checked. A blood or urine sample may also be taken. A monitor will be used to check your babys heart rate. Sometimes an IV (intravenous) line is started to give you medicineand fluids. Moving ahead with labor You may now feel contractions inyour whole stomach instead of just the lower part (like during early labor). If your amniotic sac has not broken already, it may break now. Or, it may be broken for you. To help your baby descend, change position often. Walking or sitting in a rocking chair or recliner may help. You may find it hard to relax even though you are tired. You may also be less interested in talking than you were earlier. If youre having anesthesia, you will get it now. Special issues during labor If labor doesnt progress well or a problem arises, you may need a .But your healthcare providers maytake certain steps to help you avoid a : If your cervix isnt dilating, a medicine (oxytocin)may be used to augment labor. If monitoring shows your baby isnt getting enough oxygen, shifting your body position may help. You may also be given oxygen through a mask. If you have preeclampsia (a condition that results in high blood pressure, swelling, and other symptoms), you may be given medicines by IV (intravenous). Your healthcare provider may also tell you to lie on your left side. Responding to contractions During contractions, try to stay relaxed. Tense muscles use more oxygen, eat up your bodys energy, and increase pain. Use the breathing and relaxation techniques you may have learned. And let your support person know how he or she can help. If youve had problems during a previous , focus onthe present. Keep in mind that no 2 births are the same. Support persons note Here's how you can help: Have the mother walk or change positions at least once an hour. This improves circulation and helps the baby descend. Keep reminding the mother to breathe and relax through each contraction. Reassure her. Try to keep her from getting anxious or overstressed. Take care of yourself. Take a short break to eat or go to the bathroom when you need to. Rest when the mother does. Youll both benefit. [employer] last reviewed this educational content on 11/10/201719990610-2388 [employer]. [address] [place] [address]. All rights reserved. This information is not intended as a substitute for professional medical care. Always follow your healthcare professional's instructions. Patient Education What Is Group B Strep? Group B strep (streptococcus) is a common bacteria. It can grow in a womans vagina, rectum, or urinary tract. It is almost always harmless in adults. But in rare cases, a woman who has group B strepcan infect her baby during the . Infection can cause serious illness in the . The good news is that treating the mother during labor reduces the risk of the baby becoming infected. And if anewborn is infected, the infection can be treated. Facts about group B strep Learning more about group B strep can help you understand how testing and treatment can help. Here are some basic facts about group B strep: It is not a sexually transmitted disease. It is not the same as strep throat. (This is caused by group A strep.) It often has no symptoms and may cause no problems in adults. Test results can be misleading. They may be positive one week and negative the next week. Group B strep can be transmitted during vaginal delivery. It cannot be passed during (surgical) . A mother with group B strep rarely infects her . (Infection happens only about 1% to 2% ofthe time.) When a mother is treated during labor and delivery, her baby almost never becomes infected. Certain factors during increase the risk of a baby becoming infected. Possible effects on your baby Group B strep can infect the blood. It can also cause inflammation of the babys lungs, brain, or spinal cord. Long-term effects can include blindness, deafness, mental retardation, or cerebral palsy. And in rare cases, infection causes . Infection is most often found soon after the baby is born. How your baby may become infected Group B strep often lives in the vagina or rectum. If the amniotic sac breaks early, bacteria from the vagina can travel to the uterus, reaching the baby. Or, as the baby passes through the canal, it can come in contact with the bacteria. In rare cases, group B strep can also be passed to the baby after delivery. This is calledlate-onsetgroup B strep.The source of this type of infection is not well understood. But some expertsbelieve that it happens if the baby is exposed to group B strep in the home, fromthe parents or siblings, or in the community. What increases the risk? Certain risk factors increase the chance that a baby will be infected. They include: Breaking or leaking of the amniotic sac earlier than 37 weeks gestation Labor earlier than 37 weeks gestation Breaking of the amniotic sac more than 18 hours before labor begins Fever during labor A urinary tract infection with group B strep at any point in the A previous baby born with a group B strep infection [employer] last reviewed this educational content on 03/10/201619998458-4359 [employer]. [address] [place] [address]. All rights reserved. This information is not intended as a substitute for professional medical care. Always follow your healthcare professional's instructions. Patient Education Kick Counts Its normal to worry about your babys health. One way you can knowyour babys doing well isto record the babys movements once a day. This is called a kick count.Remember to take your kick count records to all your appointments with your healthcare provider. How to count kicks Time how long it takes you to feel 10 kicks, flutters, swishes, or rolls. Ideally, you want to feel at least 10 movements within 2 hours. You will likely feel 10 movements in less time than that. Starting at 28 weeks, count your baby's movements daily. Follow your healthcare provider's instructions for kick counting. Here are tips for counting kicks: Choose a time when the baby is active, such as after a meal. Sit comfortably or lie on your side. The first time the baby moves,write downthe time. Count each movement until the baby has [id number]. This can take from 20 minutes to 2hours. If you have not felt 10 kicks by the end of the second hour, wait a few hours. Then try again. Try to do it at the same time each day. When to call your healthcare provider Call your healthcare providerright awayif: You do a couple sets of kick counts during the day and your baby moves fewer than 10times [id number] Your baby moves much less often than on thedays before. You have not felt your baby move all day. [employer] last reviewed this educational content on 09/09/201719992612-3042 [employer]. [address] [place] [address]. All rights reserved. This information is not intended as a substitute for professional medical care. Always follow your healthcare professional's instructions. documented in this encounter Progress Notes Mague Rodriguez MD - 01/16/2020 3:45 PM CDT Chief complaint: Chief Complaint Patient presents with ROUTINE VISIT HPI Denies contractions, vaginal bleeding, LOF, dysuria, or PIH symptoms. + active FM. Histories OB History Para Term AB Living 5 4 4 0 0 4 SAB TAB Ectopic Multiple Live Births 0 0 0 0 4 # Outcome Date GA Lbr Kolby/2nd Weight Sex Delivery Anes PTL Lv 5 Current 4 Term 04/27/18 39w0d 7 lb 14 oz (3.572 kg) M Vag-Spont N RAMON 3 Term 04/01/16 40w0d 7 lb 14 oz (3.572 kg) F Vag-Spont EPI N 2 Term 05/03/14 39w0d 8 lb 8 oz (3.856 kg) M Vag-Spont EPI 1 Term 06/02/13 40w0d 7 lb 12 oz (3.515 kg) F Vag-Spont EPI N Past Medical History: Diagnosis Date Anxiety Depression Pap smear abnormality of cervix HPV Family History Problem Relation Age of Onset Psychiatry Father Bipolar Mental retardation Brother Autism Psychiatry Brother ODD Depression Brother Neurological Maternal Grandmother Alzheimers Osteoporosis Maternal Grandmother Cancer Maternal Grandfather Prostate Heart Maternal Grandfather High cholesterol Maternal Grandfather Hypertension Maternal Grandfather Osteoporosis Maternal Grandfather Neurological Paternal Grandmother Alzheimers Psychiatry Paternal Grandfather Bipolar Arthritis NoFHx defects NoFHx Asthma NoFHx Breast Cancer NoFHx Colon Cancer NoFHx Ovarian Cancer NoFHx Uterine Cancer NoFHx Diabetes NoFHx Genetic NoFHx Family Status Relation Name Status Mo Alive Fa Alive Bro (Not Specified) MGMo (Not Specified) MGFa (Not Specified) PGMo (Not Specified) PGFa (Not Specified) NoFHx (Not Specified) Past Surgical History: Procedure Laterality Date DILATION AND CURETTAGE (SHX) Social History Socioeconomic History Marital status: Spouse name: Not on file Number of children: Not on file Years of education: Not on file Highest education level: Not on file Occupational History Not on file Social Needs Financial resource strain: Not on file Food insecurity: Worry: Not on file Inability: Not on file Transportation needs: Medical: Not on file Non-medical: Not on file Tobacco Use Smoking status: Never Smoker Smokeless tobacco: Never Used Substance and Sexual Activity Alcohol use: Not Currently Alcohol/week: 0.0 standard drinks Comment: not since Drug use: No Sexual activity: Yes Partners: Male Lifestyle Physical activity: Days per week: Not on file Minutes per session: Not on file Stress: Not on file Relationships Social connections: Talks on phone: Not on file Gets together: Not on file Attends episcopal service: Not on file Active member of club or organization: Not on file Attends meetings of clubs or organizations: Not on file Relationship status: Not on file Intimate partner violence: Fear of current or ex partner: Not on file Emotionally abused: Not on file Physically abused: Not on file Forced sexual activity: Not on file Other Topics Concern Not on file Social History Narrative Denies household violence or abuse Social History Substance and Sexual Activity Sexual Activity Yes Partners: Male Labs No new labs Radiology No new radiology. Allergies Nicolasa is allergic to abilify [aripiprazole] and pcn [penicillins]. Medications Nicolasa has a current medication list which includes the following prescription(s): buspirone, fluoxetine, cefdinir, ondansetron, pantoprazole, and pnv [id number] 1-dss-dha. Review of Systems Constitutional: Negative for chills, fatigue and fever. HENT: Negative for congestion, rhinorrhea, sneezing and sore throat. Eyes: Negative for photophobia and visual disturbance. Respiratory: Negative for cough, chest tightness, shortness of breath and wheezing. Cardiovascular: Negative for chest pain and palpitations. Gastrointestinal: Negative for abdominal distention, abdominal pain, constipation, diarrhea, nausea and vomiting. Genitourinary: Negative for dysuria, urgency, frequency, vaginal bleeding and vaginal discharge. Skin: Negative for rash. Neurological: Negative for syncope and headaches. Hematological: Does not bruise/bleed easily. BP 115/69 (BP Location: Right arm, Patient Position: Sitting, BP CUFF SIZE: Adult Large) | Pulse 86 | Temp 36.7 C (98.1 F) (Oral) | Resp 18 | Ht 5' 5" (1.651 m) | Wt 252 lb (114.3 kg) | LMP 05/05/2019 (Within Days) | BMI 41.93 kg/m Pregravid BMI: 38.3 Physical Exam Vitals reviewed. Constitutional: She is oriented to person, place, and time. Her body habitus is obese. Cardiovascular: Regular rate and rhythm. Pulmonary/Chest: Normal inspiratory effort. Abdominal: Abdomen is soft. No tenderness present. No hernia palpated or inspected. Neuro/Psychiatric: She has a normal mood and affect. She is oriented to person, place, and time. Skin: Skin normal. No rash present. Assessment/Plan See OB Summary Return to clinic in 1 weeks. Reviewed patient instructions and provided printed copy. Activity restrictions: As tolerated at 36w4d This visit did not involve counseling and coordination that comprised more than 50% of the visit time. Mague Rodriguez MD 01/16/2020 4:38 PM documented in this encounter Plan of Treatment Date Type Specialty Care Team Description 01/24/2020 Routine Obstetrics & Toma John, Visit Gynecology [facility] [address] [place] [phone] Name Type Priority Associated Diagnoses Date/Ti me GC & CHLAMYDIA AMPLIFIED LAB Routine High-risk pregna ncy, 01/16/2020 3:55 PM ASSAY third trimester CDT 36 weeks gestation of GROUP B STREPTOCOCCUS BY LAB Routine High-risk pregna ncy, 01/16/2020 3:55 PM PCR third trimester CDT 36 weeks gestation of Health Maintenance Due Date Last Done Comments VARICELLA VACCINES (1 of 2 - 1994 2-dose childhood series) HPV VACCINES (1 - Female 2-dose 2004 series) PAP SMEAR 07/03/2022 07/03/2019 DTaP,Tdap,and Td Vaccines (2 - Td) 12/03/2029 12/03/2019 INFLUENZA VACCINE Completed 08/02/2019 PNEUMOCOCCAL 0-64 YEARS COMBINED Aged Out No longer eligible based on SERIES patient's age to complete this topic documented as of this encounter Procedures Procedure Name Priority Date/Time Associated Diagnosis Comme nts NON-STRESS Routine 01/16/2020 4:34 High-risk , Results for this TEST PM CDT third trimester procedure are in 36 weeks gestation the resul ts of section. Maternal care for tachycardia during POCT URINALYSIS W/O Routine 01/16/2020 36 weeks gestation Re sults for this SPECIFIC GRAVITY of procedure a re in the results section. documented in this encounter Results NON-STRESS TEST (01/16/2020 4:34 PM CDT) Specimen Narrative Performed At This result has an attachment that is no t available. Reactive and reassuring PACS [place] quiescent Mague Rodriguez MD 01/16/2020 4:37 PM Performing Organization Address City/State/Zipcode Phone Number PACS POCT URINALYSIS W/O SPECIFIC GRAVITY (01/16/2020) Pathologist Sig nature POCT PH U N/A 5 - 8 mg/dl POCT U LEUK EST N/A Negative - Negative POCT U NIT N/A Negative - Negative POCT U PROT Trace Negative - Negative POCT U GLU Negative Negative - Negative POCT U KETONE N/A Negative - Negative POCT U BLD N/A Negative - Negative Specimen Urine - URINE, CLEAN CATCH documented in this encounter Visit Diagnoses Diagnosis High-risk , third trimester - P rimary 36 weeks gestation of state, incidental Maternal care for tachycardia duri ng documented in this encounter Insurance Payer Benefit Plan / Subscriber ID Effective Phone Address T ype Group Dates [facility] xxxxxxxxx 2019-[address] Medic aid HEALTH CHOICE - [place] [id number] 1 MANAGED MEDICAID [place], [place] [phone] documented as of this encounter
--- OUTSIDE RECORDS SUMMARY | 2020-04-09 18:52 | XMS REPORT | Summary of Care ---
:1995 [facility] Organization [facility] Address [address] [place] [address] Care Team Providers Name Role Phone Milton Novak E Primary Care Provider Reason for Visit Reason Comments LAB WORK Auth/Cert Status Reason Specialty Diagnoses / Procedures Referred By Kassidy farmer Referred To Contact Phlebotomy Diagnoses 36 weeks preg Adc Pob Lab Draw Procedures CBC with DIFF Professional Office Building [address] [place] [address] , [address] [place] [address] Phone: Fax: Encounter Details Date Type Department Care Team Description 01/16/2020 Spa Manager Visit [facility] Mague Rodriguez MD [address] [facility] [address] [place] [address] High-risk , third trimester; Professional Office 2, [facility] Lab 36 weeks gestation of Building Phlebotomy Lab Professional Office Building [address] [facility] , [address] [place] [address] Allergies Active Allergy Reactions Severity Noted Date Comments Aripiprazole Rash 10/09/2015 Penicillins Rash 10/09/2015 documented as of this encounter (statuses as of 01/16/2020) Medications Medication Sig Dispensed Refills Start Date End Date Status PNV [id number] Take 1 TAB-CAP/M2 30 capsule 8 07/03/2019 Active 1-dss-dha (VITAFOL by mouth daily. FE+, WITH DOCUSATE,) 90 mg iron-1 mg -50 mg-200 mg CapIndications: High-risk in first trimester, 8 weeks gestation of ondansetron 4 mg Take 1 tablet by 30 tablet 1 10/07/2019 Active tabletIndications: mouth every 6 Postprandial nausea (six) hours as needed for Nausea and Vomiting (N/V). pantoprazole 20 mg EC Take 1 tablet by 30 tablet 1 10/07/2019 Active tabletIndications: mouth daily. Postprandial nausea FLUoxetine 10 mg Take 1 capsule by 30 capsule 1 11/13/2019 Active capsuleIndications: mouth daily. History of anxiety, History of depression cefdinir 300 mg 0 10/31/2019 Act sharath capsule busPIRone 5 mg Take 1 tablet by 60 tablet 1 11/27/2019 Active tabletIndications: mouth 2 (two) History of anxiety times daily. documented as of this encounter (statuses as [...] Active labor at term 04/01/2016 10/07/2019 Liveborn , of reyna , born in [...] filedocumented in this encounter Plan of Treatment Health [...] encounter Procedures Procedure Name Priority Date/Time Associated Comments Diagnosis CBC WITH DIFFERENTIAL Routine 01/16/2020 3:35 High-risk Re sults for this PM CDT , third procedure a re in trimester the results 36 weeks gestation section. of CBC WITH DIFFERENTIAL Routine 01/16/2020 3:35 High-risk Re sults for this PM CDT , third procedure a re in trimester the results 36 weeks gestation section. of documented in this encounter Results CBC WITH DIFFERENTIAL (01/16/2020 3:35 PM CDT) Pathologist Sig nature WBC 8.80 4.30 - 11.10 [facility] 10*3/L [facility] RBC 3.81 (L) 3.93 - 5.25 [facility] 10*6/L [facility] HGB 11.4 (L) 11.6 - 15.0 [facility] g/dL [facility] HCT 34.9 (L) 35.7 - 45.2 % [facility] MCV 91.6 80.6 - 95.5 fL [facility] MCH 29.9 25.9 - 32.8 pg [facility] MCHC 32.7 31.6 - 35.1 [facility] g/dL [facility] RDW-SD 48.2 39.0 - 49.9 fL [facility] RDW-CV 14.5 12.0 - 15.5 % [facility] PLT 215 166 - 358 [facility] 10*3/L [facility] MPV 10.1 9.5 - 12.9 fL [facility] NRBC/100 WBC 0.0 0.0 - 10.0 /100 [facility] WBCs [facility] NRBC x10^3 <0.01 10*3/L [facility] GRAN MAT (NEUT) % 75.2 % [facility] IMM GRAN % 0.50 % [facility] LYMPH % 16.4 % [facility] MONO % 7.4 % [facility] EOS % 0.2 % [facility] BASO % 0.3 % [facility] GRAN MAT x10^3(ANC) 6.62 1.88 - 7.09 [facility] 10*3/uL [facility] IMM GRAN x10^3 0.04 0.00 - 0.06 [facility] 10*3/uL [facility] LYMPH x10^3 1.44 1.32 - 3.29 [facility] 10*3/uL [facility] MONO x10^3 0.65 0.33 - 0.92 [facility] 10*3/uL [facility] EOS x10^3 <0.03 (L) 0.03 - 0.39 [facility] 10*3/uL [facility] BASO x10^3 0.03 0.01 - 0.07 [facility] 10*3/uL [facility] Specimen Blood Performing Organization Address City/State/Zipcode Phone Number [facility] CLIA: [id number], [address] [place], [place] [address] documented in this encounter Visit Diagnoses Diagnosis High-risk , third trimester 36 weeks gestation of state, incidental documented in this encounter Insurance Payer Benefit Plan / Subscriber ID Effective Phone Address [employer] [facility] xxxxxxxxx 2019-Marlen P.Ann [employer] Medic aid HEALTH CHOICE - [place] [id number] 1 MANAGED MEDICAID [place], [place] MEDICAID [phone] documented as of this encounter
--- OUTSIDE RECORDS SUMMARY | 2020-04-09 18:52 | XMS REPORT | Summary of Care ---
:1995 Author Organization [facility] - Health Address [address] [place] [address] Care Team Providers Name Role Phone Milton Novak Primary Care Provider Encounter Details Date Type Department Care Team Description 01/16/2020 Orders Only [facility] Doctor Unassigned, No [address] [facility] [place] [address] [address] [place] [address] Allergies Active Allergy Reactions Severity Noted Date Comments Aripiprazole Rash 10/09/2015 Penicillins Rash 10/09/2015 documented as of this encounter (statuses as of 01/16/2020) Medications Medication Sig Dispensed Refills Start Date End Date Status PNV [id number] Take 1 TAB-CAP/M2 30 capsule 8 07/03/2019 [...] Treatment Date Type Specialty Care Team Description 01/16/2020 Routine Obstetrics & Rodriguez, Mague Pereyra MD High-risk , third trimester (Pr imary Dx); Visit Gynecology [address] [place] [address] [place] [address] [phone] Health Maintenance Due Date Last Done Comments [...] Name Priority Date/Time Associated Diagnosis Comme nts ASSIGNMENT OF BENEFITS Routine 01/16/2020 3:24 PM CDT documented in this encounter Results Not on filedocumented in this encounter Insurance Payer Benefit Plan / Subscriber ID Effective Phone Address [facility] xxxxxxxxx 2019-Marlen [address] Medic aid HEALTH CHOICE - [place] nt [id number] 1 MANAGED MEDICAID [place], [place] MEDICAID [phone] documented as of this encounter
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
--- OUTSIDE RECORDS SUMMARY | 2020-04-09 18:53 | XMS REPORT | Summary of Care ---
:1995 Author Organization [facility] Address [address] [place] [address] Care Team Providers Name Role Phone Milton Novak Primary Care Provider Reason for Visit Reason Comments Assessment Encounter Details Date Type Department Care Team Description 01/25/2020 Telephone [facility] Women's Mague Rodriguez MD Assessment Healthcare- [address], Suite [facility] 20 8 [address] [place] [address] [place] [address] [phone] Allergies Active Allergy Reactions Severity Noted Date Comments Aripiprazole Rash 10/09/2015 Penicillins Rash 10/09/2015 documented as of this encounter (statuses as of 01/25/2020) Medications Medication Sig Dispensed Refills Start Date End Date Status PNV [id number] Take 1 TAB-CAP/M2 30 capsule 8 07/03/2019 Active 1-dss-dha (VITAFOL by mouth daily. FE+, WITH DOCUSATE,) 90 mg iron-1 mg -50 mg-200 mg CapIndications: High-risk in first trimester, 8 weeks gestation of FLUoxetine 10 mg Take 1 capsule by 30 capsule 1 11/13/2019 Active capsuleIndications: mouth daily. History of anxiety, History of depression cefdinir 300 mg 0 10/31/2019 Act sharath capsule busPIRone 5 mg Take 1 tablet by 60 tablet 1 11/27/2019 Active tabletIndications: mouth 2 (two) History of anxiety times daily. documented as of this encounter (statuses as of 01/25/2020) Active Problems Problem Noted Date Morbid obesity with body mass index of 40.0-49.9 12/12 High-risk in third trimester 11/05/2019 Obesity (BMI 30-39.9) 06/15/2019 Estimated Date of Delivery Comments Yes 02/09/2020 Based on last menstr ual period of 05/05/2019 (Within Days) documented as of this encounter (statuses as of 01/25/2020) Resolved Problems Problem Noted Date Resolved Date 26 weeks gestation of 11/05/2019 12/03/19 20 Postprandial nausea 10/07/2019 11/05/2019 40 weeks gestation of 04/01/2016 10/07/20 19 Active labor at term 04/01/2016 10/07/2019 Liveborn infant, of reyna , born in hospital by 04/01/2016 10/07/2019 vaginal delivery Common Discomforts of 01/05/2016 10/07/20 19 Overview: Round ligament pain. documented as of this encounter (statuses as of 01/25/2020) Immunizations Name Administration Dates Next Due Influenza [...] Treatment Date Type Specialty Care Team Description 01/30/2020 Routine Obstetrics & Mague Rodriguez MD Visit Gynecology [address] [place] [address] [address] [place], [place] [address] 02/01/2020 Nurse Visit Surgery Mague Rodriguez M D [address] [place] [address] [address] [place] [address] [phone] Nurse, [facility] General Surgery Health Maintenance Due Date Last Done Comments [...] this topic documented as of this encounter Results Not on filedocumented in this encounter Insurance Payer Benefit Plan / Subscriber ID Effective Phone Address [facility] xxxxxxxxx 2019-Prese [address] Medic aid HEALTH CHOICE - HEALTH CHOICE nt [id number] 1 MANAGED MEDICAID [place], [place] MEDICAID [phone] documented as of this encounter
--- OUTSIDE RECORDS SUMMARY | 2020-04-09 18:53 | XMS REPORT | Summary of Care ---
:1995 Author Organization [facility] Address [address] [place] [address] Care Team Providers Name Role Phone Milton Novak Primary Care Provider Reason for Visit Reason Comments ROUTINE VISIT Encounter Details Date Type Department Care Team Description 01/24/2020 Routine [facility] Women's LucilaanToma, High-risk , third trimester (Primary Dx); Visit Healthcare- PA-C 37 weeks gestation of [address] [address] [phone] Allergies Active Allergy Reactions Severity Noted Date Comments Aripiprazole Rash 10/09/2015 Penicillins Rash 10/09/2015 documented as of this encounter (statuses as of 01/24/2020) Medications Medication Sig Dispensed Refills Start Date End Date Status PNV [id number] Take 1 TAB-CAP/M2 30 capsule 8 07/03/2019 [...] as of this encounter (statuses as of 01/24/2020) Active Problems Problem Noted Date Morbid obesity with body mass index of 40.0-49.9 12/12 High-risk in third trimester 11/05/2019 Obesity (BMI 30-39.9) 06/15/2019 Estimated Date of Delivery Comments Yes 02/09/2020 Based on last menstr ual period of 05/05/2019 (Within Days) documented as of this encounter (statuses as of 01/24/2020) Resolved Problems Problem Noted Date Resolved Date 26 weeks gestation of 11/05/2019 12/03/19 20 Postprandial nausea 10/07/2019 11/05/2019 40 weeks gestation of 04/01/2016 10/07/20 19 Active labor at term 04/01/2016 10/07/2019 Liveborn infant, of reyna , born in hospital by 04/01/2016 10/07/2019 vaginal delivery Common Discomforts of 01/05/2016 10/07/20 19 Overview: Round ligament pain. documented as of this encounter (statuses as of 01/24/2020) Immunizations Name Administration Dates Next Due Influenza [...] Sign Reading Time Taken Comments Blood Pressure 119/73 01/24/2020 2:04 PM CDT Pulse 90 01/24/2020 2:04 PM CDT Temperature 36.7 C (98.1 F) 01/24/2020 2:04 PM CDT Respiratory Rate 18 01/24/2020 2:04 PM CDT Oxygen Saturation - - Inhaled Oxygen Concentration - - Weight 114.8 kg (253 lb) 01/24/2020 2:04 PM CDT Height 165.1 cm (5' 5") 01/24/2020 2:04 PM CDT Body Mass Index 42.1 01/24/2020 2:04 PM CDT documented in this encounter Progress Notes Toma John PA-C - 01/24/2020 1:45 PM CDT Chief complaint: Chief Complaint Patient presents with ROUTINE VISIT HPI Nicolasa Rose is a 24 year old female @ 37w5d coming in for PN visit. Denies contractions, vaginal bleeding, LOF, dysuria, or PIH symptoms. + active FM. Histories OB History Para Term AB Living 5 4 4 0 0 4 SAB TAB Ectopic Multiple Live Births 0 0 0 0 4 # Outcome Date GA Lbr Kolby/2nd Weight Sex Delivery Anes PTL Lv 5 Current 4 Term 18 39w0d 7 lb 14 oz (3.572 kg) [...] file Gets together: Not on file Attends yarsani service: Not on file Active member of [...] Activity Sexual Activity Yes Partners: Male Labs none Radiology none Allergies Nicolasa is allergic to abilify [aripiprazole] and pcn [penicillins]. Medications Nicolasa has a current medication list which includes the following prescription(s): buspirone, fluoxetine, cefdinir, and pnv [id number] 1-dss-dha. Review of Systems Constitutional: Negative for appetite change, fatigue and fever. HENT: Negative for rhinorrhea and sore throat. Eyes: Negative for pain and itching. Respiratory: Negative for cough, chest tightness and shortness of breath. Breasts: Negative for discharge, mass and pain. Cardiovascular: Negative for chest pain, palpitations and leg swelling. Gastrointestinal: Negative for abdominal pain, constipation, diarrhea and nausea. Genitourinary: Negative for bladder incontinence, dysuria, vaginal discharge, difficulty urinating, vaginal pain and pelvic pain. Musculoskeletal: Negative for gait problem and myalgias. Skin: Negative for rash. Neurological: Negative for dizziness and headaches. Psychiatric/Behavioral: Negative for suicidal ideas. The patient is not nervous/anxious. Endocrine: Negative for hair loss. BP 119/73 (BP Location: Left arm, Patient Position: Sitting, BP CUFF SIZE: Adult Small) | Pulse 90| Temp 36.7 C (98.1 F) (Oral) | Resp 18 | Ht 5' 5" (1.651 m) | Wt 253 lb (114.8 kg) | LMP 05/05/2019 (Within Days) | BMI 42.10 kg/m Pregravid BMI: 38.3 Physical Exam Vitals reviewed. Constitutional: She is oriented to person, place, and time. She appears well- developed and well-nourished. Neck: No mass. No thyromegaly palpated. No neck adenopathy. Cardiovascular: Regular rate and rhythm. Pulmonary/Chest: Normal inspiratory effort. Abdominal: Abdomen is soft. No tenderness present. No hernia palpated or inspected. Neuro/Psychiatric: She has a normal mood and affect. She is oriented to person, place, and time. Skin: Skin normal. Lymphadenopathy: No neck adenopathy present. No axillary adenopathy present. No inguinal adenopathy present. Assessment/Plan SEE OB SUMMARY Return to clinic in 1 weeks. Discussed treatment options. Reviewed patient instructions and provided printed copy. Activity restrictions: As tolerated This visit did not involve counseling and coordination that comprised more than 50% of the visit time. Toma John PA-C 01/24/2020 2:09 PM documented in this encounter Plan of Treatment Date Type Specialty Care Team Description 02/01/2020 Nurse Visit Surgery Mague Rodriguez M D [address] [place] [address] [place] [address] [phone] Nurse, [facility] Health Maintenance Due Date Last [...] Name Priority Date/Time Associated Diagnosis Comme nts POCT URINALYSIS W/O Routine 01/24/2020 37 weeks gestation of Results for this SPECIFIC GRAVITY procedure a re in the results section . documented in this encounter Results POCT URINALYSIS W/O SPECIFIC GRAVITY (01/24/2020) Pathologist Sig nature POCT PH U n/a 5 - 8 mg/dl POCT U LEUK EST n/a Negative - Negative POCT U NIT n/a Negative - Negative POCT U PROT trace Negative - Negative POCT U GLU neg Negative - Negative POCT U KETONE n/a Negative - Negative POCT U BLD n/a Negative - Negative Specimen Urine - URINE, CLEAN CATCH documented in this encounter Visit Diagnoses Diagnosis High-risk , third trimester - P rimary 37 weeks gestation of state, incidental documented in this encounter Insurance Payer Benefit Plan / Subscriber ID Effective Phone Address [facility] xxxxxxxxx 2019-Marlen [address] Medic aid HEALTH CHOICE - HEALTH CHOICE nt [id number] 1 MANAGED MEDICAID [place], [place] MEDICAID [phone] documented as of this encounter
--- OUTSIDE RECORDS SUMMARY | 2020-04-09 18:53 | XMS REPORT | Summary of Care ---
:1995 Author Organization [facility] - Health Address [address] [place] [address] Care Team Providers Name Role Phone Milton Novak Primary Care Provider Encounter Details Date Type Department Care Team Description 01/30/2020 Orders Only [facility] Doctor Unassigned, No [address] [facility] [place] [place] [address] [address] [place] [address] Allergies Active Allergy Reactions Severity Noted Date Comments Aripiprazole Rash 10/09/2015 Penicillins Rash 10/09/2015 documented as of this encounter (statuses as of 01/30/2020) Medications Medication Sig Dispensed Refills Start Date End Date Status PNV [id number] Take 1 TAB-CAP/M2 30 capsule 8 07/03/2019 Active 1-dss-dha (VITAFOL by mouth daily. FE+, WITH DOCUSATE,) 90 mg iron-1 mg -50 mg-200 mg CapIndications: High-risk in first trimester, 8 weeks gestation of FLUoxetine 10 mg Take 1 capsule by 30 capsule 1 11/13/2019 Active capsuleIndications: mouth daily. History of anxiety, History of depression busPIRone 5 mg Take 1 tablet by 60 tablet 1 01/29/2020 Active tabletIndications: mouth 2 (two) History of anxiety times daily. documented as of this encounter (statuses as of 01/30/2020) Active Problems Problem Noted Date Morbid obesity with body mass index of 40.0-49.9 12/12 High-risk in third trimester 11/05/2019 Obesity (BMI 30-39.9) 06/15/2019 Estimated Date of Delivery Comments Yes 02/09/2020 Based on last menstr ual period of 05/05/2019 (Within Days) documented as of this encounter (statuses as of 01/30/2020) Resolved Problems Problem Noted Date Resolved Date 26 weeks gestation of 11/05/2019 12/03/19 20 Postprandial nausea 10/07/2019 11/05/2019 40 weeks gestation of 04/01/2016 10/07/20 19 Active labor at term 04/01/2016 10/07/2019 Liveborn , of reyna , born in hospital by 04/01/2016 10/07/2019 vaginal delivery Common Discomforts of 01/05/2016 10/07/20 19 Overview: Round ligament pain. documented as of this encounter (statuses as of 01/30/2020) Immunizations Name Administration Dates Next Due Influenza [...] Nurse Visit Surgery Mague Rodriguez M D [address] [place] [address] [phone] Nurse, [facility] 02/27/2020 Telemedicine Visit Obstetrics & Gynecology Ham John PA-C [address] [place] [phone] Health Maintenance Due Date Last Done Comments [...] Diagnosis Comme nts ASSIGNMENT OF BENEFITS Routine 01/30/2020 12:10 PM CDT documented in this encounter Results Not on filedocumented in this encounter Insurance Payer Benefit Plan / Subscriber ID Effective Phone Address [facility] xxxxxxxxx 2019-Prese [address] Medic aid HEALTH CHOICE - HEALTH CHOICE nt [id number] 1 MANAGED MEDICAID [place], [place] MED[place]ID [phone] documented as of this encounter
--- OUTSIDE RECORDS SUMMARY | 2020-04-09 18:53 | XMS REPORT | Summary of Care ---
:1993 Author Organization [facility] Address [address] [place] [address] Care Team Providers Name Role Phone Milton Novak Primary Care Provider Reason for Visit Auth/Cert Status Reason Specialty Diagnoses / Procedures Referred By Kassidy farmer Referred To Contact Obstetrics Diagnoses POSSIBLE [facility] Labor And Delivery [address] [place] [address] [place] [address] Phone: Fax: Encounter Details Date Type Department Care Team Description 01/23/2020 Hospital Encounter [facility] Labor and Delivery Jovan Rodriguez MD [address] [facility] [address] [place] [address] [facility] [address] [place], [place] [address] Allergies Active Allergy Reactions Severity Noted Date Comments Aripiprazole Rash 10/09/2015 Penicillins Rash 10/09/2015 documented as of this encounter (statuses as of 01/23/2020) Medications Medication Sig Dispensed Refills Start Date End Date Status PNV [id number] Take 1 TAB-CAP/M2 30 capsule 8 07/03/2019 [...] as of this encounter (statuses as of 01/23/2020) Active Problems Problem Noted Date Morbid obesity with body mass index of 40.0-49.9 12/12 High-risk in third trimester 11/05/2019 Obesity (BMI 30-39.9) 06/15/2019 Estimated Date of Delivery Comments Yes 02/09/2020 Based on last menstr ual period of 05/05/2019 (Within Days) documented as of this encounter (statuses as of 01/23/2020) Resolved Problems Problem Noted Date Resolved Date 26 weeks gestation of 11/05/2019 12/03/19 20 Postprandial nausea 10/07/2019 11/05/2019 40 weeks gestation of 04/01/2016 10/07/20 19 Active labor at term 04/01/2016 10/07/2019 Liveborn , of reyna , born in hospital by 04/01/2016 10/07/2019 vaginal delivery Common Discomforts of 01/05/2016 10/07/20 19 Overview: Round ligament pain. documented as of this encounter (statuses as of 01/23/2020) Immunizations Name Administration Dates Next Due Influenza [...] Sign Reading Time Taken Comments Blood Pressure 117/64 01/23/2020 12:18 PM CDT Pulse 91 01/23/2020 12:18 PM CDT Temperature 36.9 C (98.4 F) 01/23/2020 12:18 PM CDT Respiratory Rate 18 01/23/2020 12:18 PM CDT Oxygen Saturation 99% 01/23/2020 12:18 PM CDT Inhaled Oxygen Concentration - - Weight 114.3 kg (252 lb) 01/23/2020 12:18 PM CDT Height 165.1 cm (5' 5") 01/23/2020 12:18 PM CDT Body Mass Index 41.93 01/23/2020 12:18 PM CDT documented in this encounter Discharge Instructions Aspen Metcalf RN - 01/23/2020Preterm Labor (36 weeks and before): 1. Drink at least 10-12 glasses of water daily. 2. When resting or sleeping, stay off your back as much as possible. Use pillows for extra support. 3. Be sure to empty your bladder frequently at least every 2 hours. 4. No sexual intercourse or orgasm until checking with your doctor. 5. No tampons or douching until checking with your doctor. 6. Return to Labor and Delivery if you have any of the followin. Tightening of the uterus (contractions) 6 or more per hour. 2. Periodlike cramping. 3. Low back pain. 4. Pelvic pressure or aching thighs. 5. Abdominal cramping with or without diarrhea. 6. Vaginal spotting or bleeding with any of the above symptoms. 7. Leaking of fluid from your vagina. Term Labor (37+ weeks): Return to Labor and Delivery/ Center if: 1. Your contractions become more regular, at least every 5-6 minutes apart for one hour after walking and drinking a large glass of water. 2. Your bag of water starts leaking or you have a gush of water from your vagina. 3. If you are not sure if your water has broken: 1. Go to the bathroom and empty your bladder. 2. Put on a pad. If it is wet within hour, you may be leaking from your bag of water. You should come to the hospital to be checked right away. 3. Note the color and odor of the fluid. 4. Your babys movements have decreased or if your baby is not moving. 5. You have vaginal bleeding as heavy as a period. Decreased Movement: 1. Your baby should move at least 10 times in 2 hrs. 2. Keep a record of your babys movements on the Kick Count sheet provided 3. If you feel your baby is not moving as much as usual, do the followin. Drink a large glass of water. 2. Make sure you have eaten a meal recently. 3. Lie on your left side and count the babys movements. 4. If you do not have at least 10 movements in 2 hours, you should be seen as soon as possible in Labor and Delivery, or call your clinic, whichever is closer. 5. IF YOUR BABYS MOVEMENTS ARE MUCH SLOWER THAN NORMAL, OR ABSENT, AND YOU ARE WORRIED, DO NOT WAIT AN ENTIRE DAY. IT IS BETTER TO BE REASSURED THAN TO FIND A PROBLEM WITH YOUR BABY THAT COULD HAVE BEEN AVOIDED! Urinary Tract Infections: 1. Drink plenty of fluids, at least 10-12 glasses of water daily. 2. Have your prescription filled today. 3. Take all of the medication prescribed, even if you are feeling better. 4. Empty your bladder often at least every 2 hours. 5. Be sure to wipe from front to back after urinating. 6. Call your clinic if: 1. You have a fever of 100.4 F by mouth after taking your temperature twice, 4 hours apart. 2. You see blood in your urine. 3. You are unable to urinate. 4. You have severe pain when you urinate. 7. Avoid alcohol, soft drinks and drinks with caffeine such as teas and coffee during this treatment. Bleedin. It is normal to have some red, pink, or brown spotting after a vaginal exam. 2. [place], light red and brownish spotting is not unusual, especially later in the . 3. However, if heavy bleeding is present: a. Note the amount with the number of pads saturated. b. Note the color of the bleeding. c. Note any pain associated with the bleeding. d. Call Labor and Delivery or your clinic immediately. Fever: 1. Call your clinic if you have a fever of 100.4 F by mouth after taking your temperature twice, 4 hours apart. 2. Do not take any huno-iha-ocumhzq medications for an illness unless you have been instructed to doso by your physician or nurse. You should only take medicines on the list of safe medicines given to you at your clinic. Do not take more than the recommended doses. High Blood Pressure: Return to Labor and Delivery if you have: 1. Swelling in your face, puffiness around your eyes, more than slight swelling of your hands, or excessive or sudden swelling of your feet or ankles. 2. Sudden weight gain (more than 4 pounds in a week). 3. Throbbing headaches that wont go away, even after taking hsfu-zbb-tyyjymo medicines as instructed by your care provider. 4. Changes in vision, including blurry vision, a sensation of flashing lights or spots, or temporaryloss of vision. 5. Severe pain or tenderness in your upper stomach area. This may include nausea and vomiting. documented in this encounter Plan of Treatment Date Type Specialty Care Team Description 01/24/2020 Routine Obstetrics & Toma John, Visit Gynecology [facility] [address] [address] [phone] 02/01/2020 Nurse Visit Surgery Mague Rodriguez M D [address] [place] [address] [address] [phone] Nurse, [facility] Name Type Priority Associated Diagnoses Date/Ti me GC & CHLAMYDIA AMPLIFIED LAB Routine 12:13 PM CDT ASSAY URINE CULTURE LAB Routine 01/23/2020 12: 12 PM CDT Name Type Priority Associated Diagnoses Order S chedule GC & CHLAMYDIA AMPLIFIED LAB Routine ONC E for 1 Occurrences ASSAY starting 2019 until 01/23/2020 URINE CULTURE LAB Routine ONCE for 1 Occ urrences starting 2019 until 01/23/2020 Health Maintenance Due Date Last Done Comments [...] Procedure Name Priority Date/Time Associated Comments Diagnosis ADC ONLY - FERN TEST Routine 01/23/2020 12:12 PM Results for this CDT procedure are i n the results section. ADC CLC OR LCC ONLY Routine 01/23/2020 12:12 PM R esults for this - WET PREP CDT procedure are i n the results section. URINALYSIS Routine 01/23/2020 12:12 PM Results for this CDT procedure are i n the results section. documented in this encounter Results URINALYSIS (01/23/2020 12:12 PM CDT) Pathologist Sig nature APPEARANCE Cloudy (A) Clear [facility] COLOR Yellow Yellow [facility] PH 5.0 4.8 - 8.0 [facility] SP GRAVITY 1.040 (H) 1.003 - 1.030 [facility] GLU U QUAL Normal Normal [facility] BLOOD 2+ (A) Negative [facility] KETONES 5 mg/dL (A) Negative [facility] PROTEIN 30 mg/dL (A) Negative [facility] UROBILIN 2.0 mg/dL (A) Normal [facility] BILIRUBIN Negative Negative [facility] NITRITE Negative Negative [facility] LEUK JOO 250/uL (A) Negative [facility] RBC/HPF >182 (H) 0 - [address] [facility] WBC/HPF 82 (H) 0 - [address] [facility] BACTERIA Moderate (A) Negative [facility] MUCOUS Marked (A) Negative LPF [facility] SQ EPITH [address] [facility] CA OXALATE 9 (H) <=[address] [facility] Specimen Urine - URINE, CLEAN CATCH Performing Organization Address City/[facility]/Zipcode Phone Number [facility] CLIA: [id number], [address] [place] [address] ADC ONLY - FERN TEST (01/23/2020 12:12 PM CDT) Pathologist Sig nature Fern Test Negative [facility] Specimen Fluid - VAGINA Performing Organization Address City/[facility] CLIA: [id number], [address] [place] [address] ADC CLC OR LCC ONLY - WET PREP (01/23/2020 12:12 PM CDT) Pathologist Sig nature Wet Prep No [facility] vaginalis [facility] Wet Prep No Yeast [facility] Wet Prep No Clue cells present [facility] Wet Prep Few Organisms seen [facility] Wet Prep Few WBC per high-power [facility] Wet Prep No Red blood cells [facility] Wet Prep Few Epithelial cells [facility] Specimen Fluid - VAGINA Performing Organization Address City/State/Zipcode Phone Number [facility] CLIA: [id number], [address] [place], [place] [address] documented in this encounter Insurance Payer Benefit Plan / Subscriber ID Effective Phone Address T [employer] [facility] xxxxxxxxx 2019-Prese [address] Medic aid HEALTH CHOICE - HEALTH CHO[place] nt [id number] 1 MANAGED MEDICAID [place], [place] MEDICAID [id number] documented as of this encounter
--- OUTSIDE RECORDS SUMMARY | 2020-04-09 18:53 | XMS REPORT | Summary of Care ---
:1995 Author Organization [facility] Address [address] [place] [address] Care Team Providers Name Role Phone Milton Novak Primary Care Provider Reason for Visit Reason Comments Notification Encounter Details Date Type Department Care Team Description 01/28/2020 Telephone [facility] Women's Mague Rodriguez MD Notification Healthcare- [address] [place] [address], Suite [facility] 20 8 [address] [place] [address] [place] [address] [phone] Allergies Active Allergy Reactions Severity Noted Date Comments Aripiprazole Rash 10/09/2015 Penicillins Rash 10/09/2015 documented as of this encounter (statuses as of 01/29/2020) Medications Medication Sig Dispensed Refills Start Date End Date Status PNV Take 1 30 capsule 8 07/03/2019 Active [id number] TAB-CAP/M2 by 1-dss-dha mouth daily. (VITAFOL FE+, WITH DOCUSATE,) 90 mg iron-1 mg -50 mg-200 mg CapIndications: High-risk in first trimester, 8 weeks gestation of FLUoxetine 10 mg Take 1 30 capsule 1 11/13/2019 A ctive capsuleIndicatio capsule by ns: History of mouth daily. anxiety, History of depression cefdinir 300 mg 0 10/31/2019 Act sharath capsule busPIRone 5 mg Take 1 tablet 60 tablet 1 01/29/2020 Active tabletIndication by mouth 2 s: History of (two) times anxiety daily. busPIRone 5 mg Take 1 tablet 60 tablet 1 11/27/2019 Discontinued tabletIndication by mouth 2 0 (R eorder) s: History of (two) times anxiety daily. busPIRone 5 mg Take 1 tablet 60 tablet 1 01/29/2020 Discontinued tabletIndication by mouth 2 0 s: History of (two) times anxiety daily. documented as of this encounter (statuses as of 01/29/2020) Active Problems Problem Noted Date Morbid obesity with body mass index of 40.0-49.9 12/12 High-risk in third trimester 11/05/2019 Obesity (BMI 30-39.9) 06/15/2019 Estimated Date of Delivery Comments Yes 02/09/2020 Based on last menstr ual period of 05/05/2019 (Within Days) documented as of this encounter (statuses as of 01/29/2020) Resolved Problems Problem Noted Date Resolved Date 26 weeks gestation of 11/05/2019 12/03/19 20 Postprandial nausea 10/07/2019 11/05/2019 40 weeks gestation of 04/01/2016 10/07/20 19 Active labor at term 04/01/2016 10/07/2019 Liveborn infant, of reyna , born in hospital by 04/01/2016 10/07/2019 vaginal delivery Common Discomforts of 01/05/2016 10/07/20 19 Overview: Round ligament pain. documented as of this encounter (statuses as of 01/29/2020) Immunizations Name Administration Dates Next Due Influenza [...] Care Team Description 01/30/2020 Routine Obstetrics & Rodriguez, Mague Pereyra MD Visit Gynecology [address] [facility] [address] [place], [place] [address] [phone] 02/01/2020 Nurse Visit Surgery Mague Rodriguez M D [address] [place] [address] [address] [place] [address] [phone] Nurse, [facility] Health Maintenance Due [...] Results Not on filedocumented in this encounter Visit Diagnoses Diagnosis History of anxiety Personal history of other mental disorde r documented in this encounter Insurance Payer Benefit Plan / Subscriber ID Effective Phone Address [facility] xxxxxxxxx 2019-Marlen Carrasco BOX Medic aid HEALTH CHOICE - HEALTH CHOICE nt [id number] 1 MANAGED MEDICAID [place], [place] MEDICAID [phone] documented as of this encounter
--- OUTSIDE RECORDS SUMMARY | 2020-04-09 18:54 | XMS REPORT | Summary of Care ---
:1995 Author Organization [facility] Address [address] [place] [address] Care Team Providers Name Role Phone Milton Novak Primary Care Provider Reason for Visit Reason Comments ROUTINE VISIT NON-STRESS TEST Encounter Details Date Type Department Care Team Description 01/30/2020 Routine [facility] Rodriguez, Mague Cam, High-risk in third trimester (Primary Dx); Visit Women's MD 38 weeks gestation of ; [address] Oligohydramnios in third trimester, single or unspecified fetus; [facility] Decreased movements, affecting man agement of mother, with delivery [address] [place] [address] [address], [address] [place] [phone] Allergies Active Allergy Reactions Severity Noted Date Comments Aripiprazole Rash 10/09/2015 Penicillins Rash 10/09/2015 documented as of this encounter (statuses as of 01/30/2020) Medications Medication Sig Dispensed Refills Start Date End Date Status PNV [id number] Take 1 30 capsule 8 07/03/2019 Suspended 1-dss-dha (VITAFOL TAB-CAP/M2 by FE+, WITH DOCUSATE,) mouth daily. 90 mg iron-1 mg -50 mg-200 mg CapIndications: High-risk in first trimester, 8 weeks gestation of Additional information FLUoxetine 10 mg Take 1 capsule by 30 capsule 1 11/13/2019 Suspended capsuleIndications: History of mouth daily. anxiety, History of depression Additional information cefdinir 300 mg 0 10/31/2019 01/30/2020 Di scontinued capsule (Therapy c ompleted) busPIRone 5 mg Take 1 tablet 60 tablet 1 01/29/2020 Suspended tabletIndications by mouth 2 : History of (two) times anxiety daily. Additional information documented as of this encounter (statuses as of 01/30/2020) Active Problems Problem Noted Date Oligohydramnios 01/30/2020 Morbid obesity with body mass index of [...] Sign Reading Time Taken Comments Blood Pressure 116/78 01/30/2020 9:19 AM CDT Pulse 80 01/30/2020 9:19 AM CDT Temperature 36.5 C (97.7 F) 01/30/2020 9:19 AM CDT Respiratory Rate 18 01/30/2020 9:19 AM CDT Oxygen Saturation - - Inhaled Oxygen Concentration - - Weight 115.4 kg (254 lb 6.4 oz) 01/30/2020 9:19 AM CDT Height 165.1 cm (5' 5") 01/30/2020 9:19 AM CDT Body Mass Index 42.33 01/30/2020 9:19 AM CDT documented in this encounter Progress Notes Mague Rodriguez MD - 01/30/2020 9:30 AM CDT Chief complaint: Chief Complaint Patient presents with ROUTINE VISIT NON-STRESS TEST HPI Denies vaginal bleeding, LOF, dysuria, or PIH symptoms. + decreased FM. + irregular contractions. Histories OB History Para Term AB Living [...] file Gets together: Not on file Attends anabaptist service: Not on file Active member of [...] which includes the following prescription(s): buspirone, fluoxetine, and pnv [id number] 1-dss-dha, and the following Facility-Administered Medications: d5w-lr, fentanyl pf, lactated ringers, lidocaine 1% (pf), proMETHazine (PHENERGAN) 25 mg in NaCl 0.9% (NS) 50 mL piggyback, and sodium citrate-citric acid. Review of Systems Constitutional: Negative for chills, [...] headaches. Hematological: Does not bruise/bleed easily. BP 116/78 (BP Location: Left arm, Patient Position: Sitting, BP CUFF SIZE: Adult Large) | Pulse 80| Temp 36.5 C (97.7 F) (Oral) | Resp 18 | Ht 5' 5" (1.651 m) | Wt 254 lb 6.4 oz (115.4 kg) |LMP 05/05/2019 (Within Days) | BMI 42.33 kg/m Pregravid BMI: 38.3 Physical Exam Vitals [...] No rash present. Assessment/Plan See OB Summary Reviewed patient instructions and provided printed copy. Activity restrictions: As tolerated at 38w4d This visit did not involve counseling and coordination that comprised more than 50% of the visit time. Mague Rodriguez MD 01/30/2020 2:40 PM documented in this encounter Plan of Treatment Date Type Specialty Care Team Description 02/01/2020 Nurse Visit Surgery Mague Rodriguez M D [address] [place] [address] [phone] Nurse, [facility] 02/27/2020 Telemedicine Visit Obstetrics & Gynecology Ham John PA-C [address] [place] [address] [phone] Health Maintenance Due Date Last Done Comments [...] Procedure Name Priority Date/Time Associated Comments Diagnosis NON-STRESS Routine 01/30/2020 2:36 PM 38 weeks gestatio n Results for this TEST CDT of procedure are in High-risk the resu lts in third trimest er section. Decreased movements, affecting management of mother, with delivery POCT URINALYSIS W/O Routine 01/30/2020 38 weeks gestation Re sults for this SPECIFIC GRAVITY of procedure a re in the results section. documented in this encounter Results NON-STRESS TEST (01/30/2020 2:36 PM CDT) Specimen Narrative Performed At This result has an attachment that is no t available. Reactive and reassuring PACS [place] with irritability Mague Rodriguez MD 01/30/2020 2:36 PM Performing Organization Address [facility] PACS POCT URINALYSIS W/O SPECIFIC GRAVITY (01/30/2020) Pathologist Sig nature POCT PH U n/a 5 - 8 mg/dl POCT U LEUK EST n/a Negative - Negative POCT U NIT n/a Negative - Negative POCT U PROT neg Negative - Negative POCT U GLU neg Negative - Negative POCT U KETONE n/a Negative - Negative POCT U BLD n/a Negative - Negative Specimen Urine - URINE, CLEAN CATCH documented in this encounter Visit Diagnoses Diagnosis High-risk in third trimester - Primary 38 weeks gestation of state, incidental Oligohydramnios in third trimester, sing le or unspecified fetus Decreased movements, affecting man agement of mother, with delivery documented in this encounter Insurance Payer Benefit Plan / Subscriber ID Effective Phone Address T e Group [facility] xxxxxxxxx 2019-[address]se [address] Medic aid HEALTH CHOICE - HEALTH CHOICE nt [id number] 1 MANAGED MEDICAID [place], [place] MEDICAID [phone] [address] (Home) [place] [id number] documented as of this encounter
--- OUTSIDE RECORDS SUMMARY | 2020-04-09 18:55 | XMS REPORT | Summary of Care ---
:1995 Author Organization [facility] Address [address] [place] [address] Care Team Providers Name Role Phone Milton Novak Primary Care Provider Encounter Details Date Type Department Care Team Description 02/07/2020 Patient Secure Msg [facility] Women's RodriguezMague MD [facility]- [address], [address] [place] [address] [place] [address] [phone] Allergies Active Allergy Reactions Severity Noted Date Comments Aripiprazole Rash 10/09/2015 Penicillins Rash 10/09/2015 documented as of this encounter (statuses as of 03/15/2020) Medications Medication Sig Dispensed Refills Start Date End Date Status vitamin w/FA Take 1 tablet 100 tablet 3 02/01/2020 Active tabletIndications: by mouth daily. Liveborn infant, of reyna , born in hospital by vaginal delivery, High-risk in third trimester, Morbid obesity with body mass index of 40.0-49.9, Oligohydramnios in third trimester, single or unspecified fetus, 38 weeks gestation of docusate calcium 240 mg Take 1 capsule 60 capsule 1 02/01/2020 Active capsuleIndications: by mouth once Liveborn , of daily as needed reyna , for born in hospital by Constipation. vaginal delivery, High-risk in third trimester, Morbid obesity with body mass index of 40.0-49.9, Oligohydramnios in third trimester, single or unspecified fetus, 38 weeks gestation of ferrous sulfate 325 mg Take 1 tablet 60 tablet 2 02/01/2020 Active (65 mg iron) by mouth 2 tabletIndications: (two) times Liveborn , of daily. reyna , born in hospital by vaginal delivery, High-risk in third trimester, Morbid obesity with body mass index of 40.0-49.9, Oligohydramnios in third trimester, single or unspecified fetus, 38 weeks gestation of ibuprofen 600 mg Take 1 tablet 30 tablet 1 02/01/2020 Active tabletIndications: by mouth every Liveborn infant, of 6 (six) hours reyna , as needed born in hospital by (Pain). Take vaginal delivery, with food or High-risk in milk. third trimester, Morbid obesity with body mass index of 40.0-49.9, Oligohydramnios in third trimester, single or unspecified fetus, 38 weeks gestation of documented as of this encounter (statuses as of 03/15/2020) Active Problems Problem Noted Date Morbid obesity with body mass index of 40.0-49.9 12/12 documented as of this encounter (statuses as of 03/15/2020) Resolved Problems Problem Noted Date Resolved Date Oligohydramnios 01/30/2020 02/29/2020 38 weeks gestation of 01/30/2020 02/29/20 20 High-risk in third trimester 11/05/2019 0 02/29/2020 26 weeks gestation of 11/05/2019 12/03/19 20 Postprandial nausea 10/07/2019 11/05/2019 Obesity (BMI 30-39.9) 06/15/2019 01/30/2020 40 weeks gestation of 04/01/2016 10/07/20 19 Active labor at term 04/01/2016 10/07/2019 Liveborn infant, of reyna , born in hospital by 04/01/2016 02/29/2020 vaginal delivery Common Discomforts of 01/05/2016 10/07/20 19 Overview: Round ligament pain. documented as of this encounter (statuses as of 03/15/2020) Immunizations Name Administration Dates Next Due Influenza Virus Vaccine Quad .5 mL IM 6+ MO 08/02/2019 TDAP (ADACEL) VACCINE 12/03/2019 12/03/2029 documented as of this encounter Social History Tobacco Use Types Packs/Day Years Used Date Never Smoker Smokeless Tobacco: Never Used Alcohol Use Drinks/Week oz/Week Comments Not Currently 0 Standard drinks or equivalent 0.0 not since Sex Assigned at Date Recorded Not on file Job Start Date Occupation Industry Not on file Not on file Not on file Travel History Travel Start Travel End No recent travel history available. COVID-19 Exposure Response Date Recorded In the last month, have you been in contact with No / Unsure 01/30/2020 9:18 AM CDT someone who was confirmed or suspected to have Coronavirus / COVID-19? documented as of this encounter Last Filed Vital Signs Not on filedocumented in this encounter Plan of Treatment Health Maintenance Due Date Last Done Comments VARICELLA VACCINES (1 of 2 - 1994 2-dose childhood series) HPV VACCINES (1 - Female 2-dose 2004 series) Depression Screening 2005 PAP SMEAR 07/03/2022 07/03/2019 DTaP,Tdap,and Td Vaccines (2 - Td) 12/03/2029 12/03/2019 INFLUENZA VACCINE Completed 08/02/2019 PNEUMOCOCCAL 0-64 YEARS COMBINED Aged Out No longer eligible based on SERIES patient's age to complete this topic documented as of this encounter Results Not on filedocumented in this encounter Insurance Payer Benefit Plan / Subscriber ID Effective Phone Address T [facility] xxxxxxxxx 2019-Marlen Carrasco BOX Medic aid HEALTH CHOICE - HEALTH CHOICE nt [id number] 1 MANAGED MEDICAID [place], [place] MEDICAID [phone] documented as of this encounter
--- OUTSIDE RECORDS SUMMARY | 2020-04-09 18:55 | XMS REPORT | Summary of Care ---
:1995 Author Organization [facility] Address [address] [place] [address] Care Team Providers Name Role Phone Milton Novak Primary Care Provider Reason for Visit Reason Comments Care (Routine) Status Reason Specialty Diagnoses / Referred By Referred To Procedures Contact Contact Closed Obstetrics & Diagnoses Liveborn , of reyna , born in hospital by vaginal delivery High-risk in third trimester Morbid obesity with body mass index of 40.0-49.9 Oligohydramnios in third trimester, single or unspecified fetus Mague Rodriguez, Mague Rodriguez, Gynecology 38 weeks gestation of pregna anika KIM MD Procedures DISCHARGE FOLLOW-UP: PRIVATE PHYSICIAN [address] [place], [place] [address]Ariella [address] [phone] Phone: Fax: Encounter Details Date Type Department Care Team Description 02/29/2020 Telemedicine Visit [facility] Toma John, Chantelle artum care and examination (Primary Dx); Women's PA-C control counseling; [address] Encounter fo r initial prescription of vaginal ring hormonal contraceptive [address], [address] [place] [phone] Allergies Active Allergy Reactions Severity Noted Date Comments Aripiprazole Rash 10/09/2015 Penicillins Rash 10/09/2015 documented as of this encounter (statuses as of 02/29/2020) Medications Medication Sig Dispensed Refills Start Date End Date Status vitamin w/FA Take 1 tablet by 100 tablet 3 02/01/2020 Active tabletIndications: mouth daily. Liveborn infant, of reyna , born in hospital by vaginal delivery, High-risk in third trimester, Morbid obesity with body mass index of 40.0-49.9, Oligohydramnios in third trimester, single or unspecified fetus, 38 weeks gestation of docusate calcium 240 Take 1 capsule by 60 capsule 1 02/01/2020 Active mg capsuleIndications: mouth once daily Liveborn infant, of as needed for reyna , Constipation. born in hospital by vaginal delivery, High-risk in third trimester, Morbid obesity with body mass index of 40.0-49.9, Oligohydramnios in third trimester, single or unspecified fetus, 38 weeks gestation of ferrous sulfate 325 mg Take 1 tablet by 60 tablet 2 02/01/2020 Active (65 mg iron) mouth 2 (two) tabletIndications: times daily. Liveborn infant, of reyna , born in hospital by vaginal delivery, High-risk in third trimester, Morbid obesity with body mass index of 40.0-49.9, Oligohydramnios in third trimester, single or unspecified fetus, 38 weeks gestation of ibuprofen 600 mg Take 1 tablet by 30 tablet 1 02/01/2020 Active tabletIndications: mouth every 6 Liveborn , of (six) hours as reyna , needed (Pain). born in hospital by Take with food or vaginal delivery, milk. High-risk in third trimester, Morbid obesity with body mass index of 40.0-49.9, Oligohydramnios in third trimester, single or unspecified fetus, 38 weeks gestation of NUVARING 0.12-0.015 Insert 1 Each 4 Each 4 02/29/2020 Active mg/24 hr vaginal into vagina once insertIndications: every month. Encounter for initial Insert vaginally prescription of and leave in vaginal ring hormonal place for 3 contraceptive consecutive weeks, then remove for 1 week. documented as of this encounter (statuses as of 02/29/2020) Active Problems Problem Noted Date Morbid obesity with body mass index of 40.0-49.9 12/12 documented as of this encounter (statuses as of 02/29/2020) Resolved Problems Problem Noted Date Resolved Date [...] as of this encounter (statuses as of 02/29/2020) Immunizations Name Administration Dates Next Due Influenza [...] Sign Reading Time Taken Comments Blood Pressure - - Pulse - - Temperature - - Respiratory Rate - - Oxygen Saturation - - Inhaled Oxygen Concentration - - Weight - - Height 165.1 cm (5' 5") 02/29/2020 9:27 AM CDT Body Mass Index - - documented in this encounter Progress Notes Titi Gooden - 02/29/2020 3:30 PM CDTNo intercourse since baby was born 01/31/2020 delivery Vaginal ; weight 7.1 baby boy "Ji" No vaginal sutures or tears Desires Nuvaring for contraception Bottle Feeding d/c due to baby getting thrush oma John PA-C - 02/29/2020 3:30 PM CDT TELEHEALTH NOTE Verbal consent obtained from Patient: Nicolasa Rose for telehealth services provided below due to COVID-19 crises. Communication with patient was conducted via Video Call. Location of Patient: Home Location of Provider: Office Date of Service: 02/29/2020 Chief Complaint: visit HPI: Nicolasa Rose is a 24 year old female s/p vaginal delivery on 01/31/2020 presents for pp visit.Bottlefeeding without issues. Denies blues or depressive symptoms. Denies intercourse. Stopped bleeding . Past Medical History: Diagnosis Date Anxiety Depression Pap smear abnormality of cervix HPV She has no complaints and reports is doing well. Patient denies any abnormal/pelvic pain, discharge, dysuria, hematuria, abnormal bleeding. MEDICATIONS: No outpatient medications have been marked as taking for the 02/29/20 encounter (Appointment) with Toma John PA-C. ROS Per HPI TELEHEALTH EXAM Alert and oriented, appropriate response ASSESSMENT/ PLAN Nicolasa Rose is a 24 year old female with PMH as above presenting with: 1. care and examination FOLLOW-UP in 6 months for WWE 2. control counseling Also counseled the patient about her options for control. We discussed risks and benefits of condoms, diaphragms along with control pills, the control patch and the Nuva ring. I then discussed risks and benefits of the Depo Provera injection, the various IUDs (Ainsley, Mirena, Paraguard) and the Nexplanon implant. After counseling, the patient is most interested in nuvaring, Proper use was discussed and reviewed. I stressed the importance of using condoms regardless of her contraceptive method to assist in prevention of sexually transmitted infections. I discussed that no control method is 100% in preventing except abstinence. The patient expressed understanding. Counseled patient regarding use of NuvaRing, which is a combined contraceptives, which has both estrogen and progestin. With typical use, 9 out 100 women get in the first year and with perfect use 0.3 out of 100 women get in the first year according to ACOG Practice Bulletin. Risksinclude but not limited to increase risk of thromboembolic disease, headache, weight gain, and mood lability, vaginal discharge, vaginal irritation. Alternatives reviewed include patch, oral, ring, Depo-Provera, Nexplanon, and IUD. Advise using condoms for STDs prevention. Patient denies self or family history of thromboembolic disease or thrombophilia, migraine headache. Plan of care, desired health behaviors, goals, Ddx, and any prescribed medications were discussed with the patient. I spent 15 minute(s) conducting this Telehealth encounter with the patient over the video call Education resources and self-management tools were provided is the AVS which is accessible through [employer]. Patient/guardian/family verbalized understanding and agrees to the plan of care. Barriers to care: None. Ability to manage care: Good. If applicable, the [employer] database was accessed to review any controlled substance prescription claims data. If the patient is taking prescribed medications, the [employer] prescription claims data in [employer] was reviewed to assess patient compliance with the medication treatment plan. COVID-19 precautions given including frequent handwashing, social distancing, cleaning and disinfecting, indications for testing, etc. After visit summary (AVS ) documentation will be available through [employer] for this encounter. Toma John PA-C 02/29/2020 3:59 PM documented in this encounter Plan of [...] filedocumented in this encounter Visit Diagnoses Diagnosis care and examination - Primar y Routine follow-up control counseling General counseling for initiation of oth er contraceptive measures Encounter for initial prescription of va ginal ring hormonal contraceptive documented in this encounter Insurance Payer Benefit Plan / Subscriber ID Effective Phone Address T e [facility] xxxxxxxxx 2019-Marlen [employer] Medic aid HEALTH CHOICE - HEALTH CHOICE nt [id number] 1 MANAGED MEDICAID [place], [place] MEDICAID [phone] documented as of this encounter
--- OUTSIDE RECORDS SUMMARY | 2020-04-09 18:55 | XMS REPORT | Summary of Care ---
:1995 Author Organization [facility] - [facility] Address [address] [place] [address] Care Team Providers Name Role Phone Milton Novak Rahul Primary Care Provider Encounter Details Date Type Department Care Team Description 01/29/2020 Patient Secure Msg [facility] Women's RodriguezMague MD [address] 208 [facility] [[email or web address] 208 [place] [address] 112 [place] [address] [phone] Allergies Active Allergy Reactions Severity Noted Date Comments Aripiprazole Rash 10/09/2015 Penicillins Rash 10/09/2015 documented as of this encounter (statuses as of 03/01/2020) Medications No known medicationsdocumented as of this encounter (statuses as of 03/01/2020) Active Problems Problem Noted Date Morbid obesity with body mass index of 40.0-49.9 12/12 Comments Yes documented as of this encounter (statuses as of 03/01/2020) Resolved Problems Problem Noted Date Resolved Date [...] as of this encounter (statuses as of 03/01/2020) Immunizations Name Administration Dates Next Due Influenza Virus Vaccine Quad .5 mL IM 6+ MO 08/02/2019 TDAP (ADACEL) VACCINE 12/03/2019 12/03/2029 documented as of this encounter Social History Tobacco Use Types Packs/Day Years Used Date Never Smoker Smokeless Tobacco: Never Used Alcohol Use Drinks/Week oz/Week Comments Not Currently 0 Standard drinks or equivalent 0.0 not since Comments Yes Sex Assigned at Date Recorded Not on [...] ID Effective Phone Address T e Group Dates [employer] xxxxxxxxx 2019-Marlen [address] [facility] - [place] nt [id number] 1 MANAGED MEDICAID [place], [place] MED[place]ID [phone] documented as of this encounter
--- OUTSIDE RECORDS SUMMARY | 2020-04-09 18:55 | XMS REPORT | Summary of Care ---
:1995 Author Organization [facility] - [facility] Address [address] [place] [address] Care Team Providers Name Role Phone Milton Novak Rahul Primary Care Provider Encounter Details Date Type Department Care Team Description 01/28/2020 Patient Secure Msg [facility] Women's RodriguezMague MD [address] 208 [facility] 208 [place] [address] 112 [place] [address] [phone] Allergies Active Allergy Reactions Severity Noted Date [...] aid [facility] - HEALTH CHOICE nt [id number] 1 MANAGED MEDICAID [place], [place] [phone] documented as of this encounter
--- OUTSIDE RECORDS SUMMARY | 2020-04-09 18:55 | XMS REPORT | Summary of Care ---
:1995 Author Organization [facility] - [facility] Address [address] [place] [address] Care Team Providers Name Role Phone Milton Novak Rahul Primary Care Provider Encounter Details Date Type Department Care Team Description 01/17/2020 Patient Secure Msg [facility] Women's RodriguezMague MD [address] 208 [facility] 208 [place] [address] 112 [place] [address] [phone] Allergies Active Allergy Reactions Severity Noted Date Comments Aripiprazole Rash 10/09/2015 Penicillins Rash 10/09/2015 documented as of this encounter (statuses as of 02/23/2020) Medications No known medicationsdocumented as of this encounter (statuses as of 02/23/2020) Active Problems Problem Noted Date Oligohydramnios 01/30/2020 38 weeks gestation of 01/30/2020 Morbid obesity with body mass index of 40.0-49.9 12/12 High-risk in third trimester 11/05/2019 Liveborn , of reyna , born in [facility] by vaginal 04/01/2016 delivery Comments Yes documented as of this encounter (statuses as of 02/23/2020) Resolved Problems Problem Noted Date Resolved Date 26 weeks gestation of 11/05/2019 12/03/19 20 Postprandial nausea 10/07/2019 11/05/2019 Obesity (BMI 30-39.9) 06/15/2019 01/30/2020 40 weeks gestation of 04/01/2016 10/07/20 19 Active labor at term 04/01/2016 10/07/2019 Common Discomforts of 01/05/2016 10/07/20 19 Overview: Round ligament pain. documented as of this encounter (statuses as of 02/23/2020) Immunizations Name Administration Dates Next Due Influenza [...] Treatment Date Type Specialty Care Team Description 02/29/2020 Telemedicine Visit Obstetrics & Gynecology Ham John PA-C [address] [place] [phone] Health Maintenance Due Date Last Done Comments [...] Effective Phone Address T ype Group [facility] xxxxxxxxx 2019-Prese [address] Medic aid [facility] - HEALTH CHOICE nt [id number] 1 MANAGED MEDICAID [place], [place] MED[place]ID [phone] documented as of this encounter
--- OUTSIDE RECORDS SUMMARY | 2020-04-09 18:55 | XMS REPORT | Summary of Care ---
:1995 Author Organization [facility] - [facility] Address [address] [place] [address] Care Team Providers Name Role Phone Milton Novak Rahul Primary Care Provider Encounter Details Date Type Department Care Team Description 01/09/2020 Patient Secure Msg [facility] Women's RodriguezMague MD [address] 208 [facility] 208 [place] [address] 112 [place] [address] [phone] Allergies Active Allergy Reactions Severity Noted Date Comments Aripiprazole Rash 10/09/2015 Penicillins Rash 10/09/2015 documented as of this encounter (statuses as of 02/09/2020) Medications No known medicationsdocumented as of this encounter (statuses as of 02/09/2020) Active Problems Problem Noted Date Oligohydramnios 01/30/2020 38 weeks gestation of 01/30/2020 Morbid obesity with body mass index of 40.0-49.9 12/12 High-risk in third trimester 11/05/2019 Liveborn , of reyna , born in [facility] by vaginal 04/01/2016 delivery Comments Yes documented as of this encounter (statuses as of 02/09/2020) Resolved Problems Problem Noted Date Resolved Date 26 weeks gestation of 11/05/2019 12/03/19 20 Postprandial nausea 10/07/2019 11/05/2019 Obesity (BMI 30-39.9) 06/15/2019 01/30/2020 40 weeks gestation of 04/01/2016 10/07/20 19 Active labor at term 04/01/2016 10/07/2019 Common Discomforts of 01/05/2016 10/07/20 Overview: Round ligament pain. documented as of this encounter (statuses as of 02/09/2020) Immunizations Name Administration Dates Next Due Influenza [...] Treatment Date Type Specialty Care Team Description 02/27/2020 Telemedicine Visit Obstetrics & Gynecology Ham John PA-C [address] [place] [phone] Health Maintenance Due Date Last Done [...] ID Effective Phone Address T ype Group [facility] xxxxxxxxx 2019-Prese [address]OX Medic aid [facility] - HEALTH CHOICE nt [id number] 1 MANAGED MEDICAID [place], [place] [phone] documented as of this encounter
--- OUTSIDE RECORDS SUMMARY | 2020-04-09 18:55 | XMS REPORT | Summary of Care ---
:1995 Author Organization [facility] - [facility] Address [address] [place] [address] Care Team Providers Name Role Phone Milton Novak Primary Care Provider Reason for Referral (Routine) Status Reason Specialty Diagnoses / Referred By Referred To Procedures Contact Contact New Request Diagnoses Liveborn , of reyna , born in hospital by vaginal delivery High-risk in third trimester Morbid obesity with body mass index of 40.0-49.9 Oligohydramnios in third trimester, single or unspecified fetus Mague Rodriguez MD Lam, Vien Cam, MD 38 weeks gestation of [address] [place] [address] Procedures DISCHARGE FOLLOW-UP: PRIVATE PHYSICIAN DR. HUGGINS [address] [place], [place] [address] [place] Phone: [phone] Phone: Fax: Reason for Visit Auth/Cert Status Reason Specialty Diagnoses / Procedures Referred By C ontact Referred To Contact Obstetrics Diagnoses PREG [facility] Labor And Delivery [address] [place] [address] [place], [place] [address] Phone: Fax: Encounter Details Date Type Department Care Team Description 01/30/2020 - Hospital Encounter ADC Labor and Mague Rodriguez Livebo rn , of 02/01/2020 Delivery Unit MD reyna [address] [place] [address] , born in [facility] [place] [address] [address] delivery [phone] [place] [address] [phone] Allergies Active Allergy Reactions Severity Noted Date Comments Aripiprazole Rash 10/09/2015 Penicillins Rash 10/09/2015 documented as of this encounter (statuses as of 02/01/2020) Medications Medication Sig Dispensed Refills Start Date End Date Status vitamin w/FA Take 1 tablet 100 tablet 3 02/01/2020 Active tabletIndications: by mouth Liveborn infant, of daily. reyna , born in hospital by vaginal delivery, High-risk in third trimester, Morbid obesity with body mass index of 40.0-49.9, Oligohydramnios in third trimester, single or unspecified fetus, 38 weeks gestation of docusate calcium 240 Take 1 60 capsule 1 02/01/2020 Active mg capsule by capsuleIndications: mouth once Liveborn infant, of daily as reyna , needed for born in hospital by Constipation. vaginal delivery, High-risk in third trimester, Morbid obesity with body mass index of 40.0-49.9, Oligohydramnios in third trimester, single or unspecified fetus, 38 weeks gestation of ferrous sulfate 325 Take 1 tablet 60 tablet 2 02/01/2020 Active mg (65 mg iron) by mouth 2 tabletIndications: (two) times Liveborn infant, of daily. reyna , born in hospital by vaginal delivery, High-risk in third trimester, Morbid obesity with body mass index of 40.0-49.9, Oligohydramnios in third trimester, single or unspecified fetus, 38 weeks gestation of ibuprofen 600 mg Take 1 tablet 30 tablet 1 02/01/2020 Active tabletIndications: by mouth Liveborn infant, of every 6 (six) reyna , hours as born in hospital by needed vaginal delivery, (Pain). Take High-risk with food or in third trimester, milk. Morbid obesity with body mass index of 40.0-49.9, Oligohydramnios in third trimester, single or unspecified fetus, 38 weeks gestation of PNV [id number] Take 1 30 capsule 8 07/03/2019 02/01/20 2 Discontinued 1-dss-dha (VITAFOL TAB-CAP/M2 by 0 FE+, WITH DOCUSATE,) mouth daily. 90 mg iron-1 mg -50 mg-200 mg CapIndications: High-risk in first trimester, 8 weeks gestation of FLUoxetine 10 mg Take 1 30 capsule 1 11/13/2019 D iscontinued capsuleIndications: capsule by 0 History of anxiety, mouth daily. History of depression busPIRone 5 mg Take 1 tablet 60 tablet 1 01/29/2020 Discontinued tabletIndications: by mouth 2 0 History of anxiety (two) times daily. documented as of this encounter (statuses as of 02/01/2020) Active Problems Problem Noted Date Oligohydramnios 01/30/2020 38 weeks gestation of 01/30/2020 Morbid obesity with body mass index of 40.0-49.9 12/12 High-risk in third trimester 11/05/2019 Liveborn infant, of reyna , born in [facility] by vaginal 04/01/2016 delivery Comments Yes documented as of this encounter (statuses as of 02/01/2020) Resolved Problems Problem Noted Date Resolved Date 26 weeks gestation of 11/05/2019 12/03/19 20 Postprandial nausea 10/07/2019 11/05/2019 Obesity (BMI 30-39.9) 06/15/2019 01/30/2020 40 weeks gestation of 04/01/2016 10/07/20 19 Active labor at term 04/01/2016 10/07/2019 Common Discomforts of 01/05/2016 10/07/20 19 Overview: Round ligament pain. documented as of this encounter (statuses as of 02/01/2020) Immunizations Name Administration Dates Next Due Influenza [...] Sign Reading Time Taken Comments Blood Pressure 108/69 02/01/2020 7:16 AM CDT Pulse 69 02/01/2020 7:16 AM CDT Temperature 36.5 C (97.7 F) 02/01/2020 7:16 AM CDT Respiratory Rate 18 02/01/2020 7:16 AM CDT Oxygen Saturation 99% 02/01/2020 12:00 AM CDT Inhaled Oxygen Concentration - - Weight 115.2 kg (254 lb) 01/30/2020 12:40 PM CDT Height 165.1 cm (5' 5") 01/30/2020 12:40 PM CDT Body Mass Index 42.27 01/30/2020 12:40 PM CDT documented in this encounter Discharge Summaries Mague Rodriguez MD - 02/01/2020 7:41 AM CDT PP D/C SUMMARY ADMIT DATE: 01/30/2020 DISCHARGE DATE: 02/01/2020 ADMIT ATTENDING: Mague Rodriguez MD ATTENDING MD AT DISCHARGE: Mague Rodriguez MD REASON FOR ADMISSION: Oligohydramnios at 38 wks FINAL DIAGNOSIS: S/P Vaginal Delivery SECONDARY DIAGNOSIS: Principal Problem: Liveborn infant, of reyna , born in hospital by vaginal delivery (04/01/2016) POA: Unknown Active Problems: High-risk in third trimester (11/05/2019) POA: Yes Morbid obesity with body mass index of 40.0-49.9 (12/13/2019) POA: Yes Oligohydramnios (01/30/2020) POA: Yes 38 weeks gestation of (01/30/2020) POA: Yes PRINCIPAL PROCEDURE: Cephalic vaginal delivery ADDITIONAL PROCEDURES: None SIGNIFICANT LAB/X-RAYS: WBC (10*3/L) Date Value 02/01/2020 8.58 01/30/2020 8.05 01/16/2020 8.80 HGB (g/dL) Date Value 02/01/2020 10.2 (L) 01/30/2020 10.9 (L) 01/16/2020 11.4 (L) HCT (%) Date Value 02/01/2020 32.0 (L) 01/30/2020 33.7 (L) 01/16/2020 34.9 (L) PLT (10*3/L) Date Value 02/01/2020 181 01/30/2020 176 01/16/2020 215 HOSPITAL COURSE: Briefly, Nicolasa Rose is a 24 year old who was admitted to [facility] on 01/30/2020 for induction due tooligohydramnios at 38 wks. She underwent a Cephalic vaginal delivery. She was ambulating, tolerating a regular diet with good pain control on day # 1. The patient is medically stable for discharge home to the care of her family with care instructions reviewed and with home meds prescribed.She is to follow-up in clinic as directed. CONDITION: Good DIET: Regular ACTIVITY: Physical activities as tolerated. Pelvic rest x 6-8 weeks . DISCHARGE MEDICATIONS: Nicolasa Rose Home Medication Instructions SHERRIE:[id number] Printed on:02/01/20 0741 Medication Information docusate calcium 240 mg capsule Take 1 capsule by mouth once daily as needed for Constipation. ferrous sulfate 325 mg (65 mg iron) tablet Take 1 tablet by mouth 2 (two) times daily. ibuprofen 600 mg tablet Take 1 tablet by mouth every 6 (six) hours as needed (Pain). Take with food or milk. vitamin w/FA tablet Take 1 tablet by mouth daily. WOUND CARE: The patient was instructed to keep delivery lacerations (if any) clean and dry with soap and water in shower, dry gently with clean towel. She was instructed to return to ER if Temp > 101F, foul-smelling vaginal discharge, headache unresolved with pain medications, visual disturbances including double or blurry vision, seeing spots, upper abdominal pain, or vaginal bleeding greater than 1 pad perhour. Pelvic rest 4-6 weeks, and no heavy lifting. DISCHARGE: Home FOLLOW-UP APPOINTMENT: With [facility] in 4 weeks for check. Mague Rodriguez MD 02/01/2020 8:24 AM documented in this encounter Discharge Instructions Aspen Metcalf RN - 02/01/2020Multidisciplinary Discharge Instructions (may include diet, dressing changes, activity limits, written materials given to patient: DIET: Eat a well balanced diet; drink 6-8 glasses of fluids daily; eat fruits and green, leafy vegetables. DAILY ACTIVITIES: 1. As much as you feel able to do. Rest when you are tired. 2. Limitations: Specify; No heavy lifting other than your baby for 4 weeks if you had surgery. TREATMENT AT HOME 1. Use a well-fitting bra to prevent breast engorgement 2. Resume intercourse as instructed by your physician. 3. Do not use douches or tampons for four weeks. 4. To help prevent urinary tract infection; after each urination and bowel movement, wipe and dry from front to back and change jayda pad. 5. Follow discharge instructions regarding baby care. 6. Follow family planning instructions. IMMEDIATE TREATMENT - Call Clinic or Your Physician 1. Increase in pain and tenderness of uterus. 2. Increased vaginal bleeding (bright red blood which soaks 2 pads in 1 hour or pass large clots). 3. Foul smelling vaginal discharge. 4. Burning in the tube that empties the urine from the bladder. 5. Painful breast engorgement or cracked nipples. 6. Pain, discharges, or gaping incision. 7. Temperature greater than 38.0C or 100.4F 8. Pain and tenderness of calf or thigh muscles. 9. No bowel movements in 4 days. For Problems or Questions Call: DR. Rodriguez [phone] [facility] L&D [phone] Emergency: Go to the closest emergency room or call 911 documented in this encounter Plan of Treatment Date Type Specialty Care Team Description 02/27/2020 Telemedicine Visit Obstetrics & Gynecology Ham John PA-C [address] [phone] Health Maintenance Due Date Last Done [...] Associated Comments Diagnosis CBC WITH DIFFERENTIAL Routine 02/01/2020 4:48 Re sults for this AM CDT procedure are i n the results section. CBC WITH DIFFERENTIAL Routine 02/01/2020 4:48 Re sults for this AM CDT procedure are i n the results section. VENOUS CORD GAS Routine 01/31/2020 12:42 Results for this AM CDT procedure are i n the results section. HIV 1/2 AG-AB WITH Routine 01/30/2020 1:56 Resul ts for this REFLEX PM CDT procedure are i n the results section. CBC WITH DIFFERENTIAL ARVIN 01/30/2020 1:53 Re sults for this PM CDT procedure are i n the results section. ADC OR MARK ONLY - ARVIN 01/30/2020 1:53 Re sults for this RPR PM CDT procedure are i n the results section. HEPATITIS B SURFACE ARVIN 01/30/2020 1:53 Resu lts for this ANTIGEN PM CDT procedure are i n the results section. CBC WITH DIFFERENTIAL ARVIN 01/30/2020 1:53 Re sults for this PM CDT procedure are i n the results section. RHO (D) IMMUNE Routine 01/30/2020 1:45 Results f or this GLOBULIN PM CDT procedure are i n the results section. HB ABO GROUPING ARVIN 01/30/2020 1:45 Results for this PM CDT procedure are i n the results section. CORONAVIRUS COVID-19 Routine 01/30/2020 12:37 Res ults for this TESTING PM CDT procedure are i n the results section. documented in this encounter Results CBC WITH DIFFERENTIAL (02/01/2020 4:48 AM CDT) Pathologist Sig nature WBC 8.58 4.30 - 11.10 [facility] 10*3/L [facility] RBC 3.42 (L) 3.93 - 5.25 [facility] 10*6/L [facility] HGB 10.2 (L) 11.6 - 15.0 [facility] g/dL [facility] HCT 32.0 (L) 35.7 - 45.2 % [facility] MCV 93.6 80.6 - 95.5 fL [facility] MCH 29.8 25.9 - 32.8 pg [facility] MCHC 31.9 31.6 - 35.1 [facility] g/dL [facility] RDW-SD 50.5 (H) 39.0 - 49.9 fL [facility] RDW-CV 14.8 12.0 - 15.5 % [facility] PLT 181 166 - 358 [facility] 10*3/L [facility] MPV 9.9 9.5 - 12.9 fL [facility] NRBC/100 WBC 0.0 0.0 - 10.0 /100 [facility] WBCs [facility] NRBC x10^3 <0.01 10*3/L [facility] GRAN MAT (NEUT) % 67.2 % [facility] IMM GRAN % 1.40 % [facility] LYMPH % 23.1 % [facility] MONO % 6.8 % [facility] EOS % 1.0 % [facility] BASO % 0.5 % [facility] GRAN MAT x10^3(ANC) 5.77 1.88 - 7.09 [facility] 10*3/uL [facility] IMM GRAN x10^3 0.12 (H) 0.00 - 0.06 [facility] 10*3/uL [facility] LYMPH x10^3 1.98 1.32 - 3.29 [facility] 10*3/uL [facility] MONO x10^3 0.58 0.33 - 0.92 [facility] 10*3/uL [facility] EOS x10^3 0.09 0.03 - 0.39 [facility] 10*3/uL [facility] BASO x10^3 0.04 0.01 - 0.07 [facility] 10*3/uL [facility] Specimen Blood - ARM, LEFT Performing Organization Address City/State/Zipcode Phone Number [facility] CLIA: [id number], [address] [place], [place] [address] Venous Cord Gas (01/31/2020 12:42 AM CDT) Pathologist Sig nature VENOUS BASE EXCESS, -2.2 mEq/L [facility] VENOUS PH, CORD 7.37 7.25 - 7.45 [facility] VENOUS PC02, CORD 40 27 - 49 mmHg [facility] VENOUS PO2, CORD 32 17 - 41 mmHg [facility] VENOUS BICARBONATE, 23 12 - 29 mEq/L [facility] Specimen Blood - CORD Performing Organization Address City/State/Zipcode Phone Number [facility] CLIA: [id number], [address] [place], [place] [address] HIV 1/2 AG-AB WITH REFLEX (01/30/2020 1:56 PM CDT) Pathologist Sig nature HIV 1/2 Ag-Ab with Negative Negative [facility] Reflex [facility]OS[facility]ITAL [facility] HIV Semi-quantitative 0.17 [facility] Specimen Blood - VENOUS Narrative Performed At Non-reactive for HIV-1 antigen and HIV-1/HIV-2 [facility] antibodies. No laboratory evidence of HIV infection. Repeat in 2-4 weeks if acute HIV infection is suspected. Performing Organization Address City/[facility]/Zipcode Phone Number [facility] CLIA: [id number], [address] [place], [place] [address] CBC WITH DIFFERENTIAL (01/30/2020 1:53 PM CDT) Pathologist Sig nature WBC 8.05 4.30 - 11.10 [facility] 10*3/L [facility] RBC 3.67 (L) 3.93 - 5.25 [facility] 10*6/L [facility] HGB 10.9 (L) 11.6 - 15.0 [facility] g/dL [facility] HCT 33.7 (L) 35.7 - 45.2 % [facility] MCV 91.8 80.6 - 95.5 fL [facility] MCH 29.7 25.9 - 32.8 pg [facility] MCHC 32.3 31.6 - 35.1 [facility] g/dL [facility] RDW-SD 48.5 39.0 - 49.9 fL [facility] RDW-CV 14.5 12.0 - 15.5 % [facility] PLT 176 166 - 358 [facility] 10*3/L [facility] MPV 9.8 9.5 - 12.9 fL [facility] NRBC/100 WBC 0.0 0.0 - 10.0 /100 [facility] WBCs [facility] NRBC x10^3 <0.01 10*3/L [facility] GRAN MAT (NEUT) % 83.1 % [facility] IMM GRAN % 1.20 % [facility] LYMPH % 11.3 % [facility] MONO % 4.2 % [facility] EOS % 0.1 % [facility] BASO % 0.1 % [facility] GRAN MAT x10^3(ANC) 6.68 1.88 - 7.09 [facility] 10*3/uL [facility] IMM GRAN x10^3 0.10 (H) 0.00 - 0.06 [facility] 10*3/uL [facility] LYMPH x10^3 0.91 (L) 1.32 - 3.29 [facility] 103/uL [facility] MONO x10^3 0.34 0.33 - 0.[address]uL [facility] EOS x10^3 <0.03 (L) 0.03 - 0.[address]uL [facility] BASO x10^3 <0.03 0.01 - 0.[address]/uL [facility] Specimen Blood - VENOUS Performing Organization Address City/[facility]/Zipcode Phone Number [facility] CLIA: [id number], [address] [place] [address] ADC OR MARK ONLY - RPR (01/30/2020 1:53 PM CDT) Pathologist Sig nature RPR (Qualitative) Nonreactive Nonreactive [facility] Specimen Blood - VENOUS Performing Organization Address City/[facility]/Zipcode Phone Number [facility] CLIA: [id number], [address] [place] [address] Hepatitis B Surface Antigen (01/30/2020 1:53 PM CDT) Pathologist Sig nature HBsAg Negative Negative [facility] LABORATORY SERVICES HBsAg 0.11 [facility] LABORATORY Semi-Quantitative SERVICES Specimen Blood - VENOUS Performing Organization Address City/[facility]/Zipcode Phone Number [facility]ORATORY SERVICES CLIA: [id number], [address] [place] [address] [facility] RHO (D) IMMUNE GLOBULIN (01/30/2020 1:45 PM CDT) Pathologist Sig nature RHIG CANDIDATE? No- see comment LAB Comment: Patient is not a candidate for RhIg- Patient is Rh Pos itive. Performed at [facility] Laboratory [facility] Blood Bank [address] [place] [address] Toll Free: [phone] CLIA No. [id number] Specimen Blood - VENOUS Performing Organization Address City/[facility]/Zipcode Phone Number [facility] Type and Screen - ONCE ARVIN (01/30/2020 1:45 PM CDT) Pathologist Sig nature ABO & RH A Positive LAB Comment: Performed at [facility] Blood Bank [address] [place], [place] [address] Toll Free: [phone] CLIA No. [id number] IAT Negative LAB Comment: Performed at [facility] Blood Bank [address] [place] [address] Toll Free: [phone] CLIA No. [id number] Specimen Blood Performing Organization Address [facility] Phone Number [facility] CORONAVIRUS COVID-19 TESTING (01/30/2020 12:37 PM CDT) Pathologist Sig [facility] SARS-CoV-2 Not Detected Not Detected [facility] Specimen Swab - NASOPHARYNGEAL SWAB Narrative Performed At [facility] COVID-19 Assay is an isothermal nucleic [facility] LABORATORY acid amplification test intended for the qualitative detection of nucleic acid from SARS-CoV-2 viral RNA in nasopharyngeal (DIRECTOR ADULT) specimens. It is used under Emergency Use Authorization (EUA) by FDA. The limit of detection (LOD) of the assay is 125 Genome Equivalents/mL. A positive result is indicative of the presence of SARS-CoV-2 RNA. Clinical correlation with patient history and other diagnostic information is necessary to determine patient infection status. A negative (Not Detected) result does not preclude SARS-CoV-2 infection. Clinical correlation with patient history and other diagnostic information should be used in patient management decisions. Invalid: Please collect a new specimen for repeat patient testing if clinically indicated. Performing Organization Address City/[facility]/Zipcode Phone Number [facility] CLIA: [id number], [address] [place] [address] documented in this encounter Visit Diagnoses Diagnosis Liveborn , of reyna , born in hospital by vaginal delivery - Primary High-risk in third trimester Morbid obesity with body mass index of 4 0.0-49.9 Oligohydramnios in third trimester, sing le or unspecified fetus 38 weeks gestation of state, incidental documented in this encounter Administered Medications Medication Order MAR Action Action Date Dose Rate Site docusate calcium (SURFAK) capsule Given 02/01/2020 7:52 AM CDT 240 mg 240 mg 240 mg, Oral, QDAILYPRN, Starting Maddison 01/31/20 at 0108, Until Discontinued, Routine, Constipation Given 01/31/2020 7:29 AM CDT 240 mg ibuprofen (IBU) tablet 600 mg Given 02/01/2020 1:17 AM CDT 600 mg 600 mg, Oral, Q6HPRN, Starting Tue01/31/20 at 0108, Until Discontinued, Routine, Pain (scale 4-6) Given 01/31/2020 3:21 PM CDT 600 mg Given 01/31/2020 2:53 AM CDT 600 mg vitamin w/FA (PRENATABS RX) Given 02/01/2020 7:53 AM C DT 1 tablet tablet 1 tablet 1 tablet, Oral, DAILY, First dose on Tue01/31/20 at 0900, Until Discontinued, Routine Given 01/31/2020 7:30 AM CDT 1 tablet Medication Order MAR Action Action Date Dose Rate Site D5W-LR IV infusion 1,000 mL New Bag 01/30/2020 4:40 PM CDT 1,000 mL 125 mL/hr at 125 mL/hr, IV Infusion, CONTINUOUS, Starting Tue01/30/20 at 1315, Until Tue01/31/20 at 0108, Routine FENTanyl PF (SUBLIMAZE (PF)) injection 100 Given 01/30 12:29 AM CDT 100 mcg mcg 100 mcg, Slow IV Push, Q1HPRN, Starting Tue01/30/20 at 1300, Until Tue01/31/20 at 0108, Routine, contraction pain without an epidural and SVE < 8 cm and Cat I strip Given 01/30/2020 7:31 PM CDT 100 mcg LR 1000 mL + oxytocin 20 Given 01/31/2020 12:30 AM CDT 0.002 Uni ts/min 6 mL/hr units IV Solution at 6 mL/hr, IV Infusion, ONCE, 1 dose, Maddison 01/31/20 at 0045, Routine oxytocin (PITOCIN) 20 Units in Rate Change 01/30/2020 10:57 PM CDT 18 mL/hr lactated ringers 1,000 mL IV infusion at 2-40 mL/hr, IV Infusion, TITRATE, Starting Tue01/30/20 at 1858, Until Maddison 01/31/20 at 0108, Routine Rate Change 01/30/2020 9:04 PM CDT 24 mL/hr Rate Change 01/30/2020 8:30 PM CDT 18 mL/hr proMETHazine (PHENERGAN) 25 mg in NaCl 0.9% Given 01/30/2020 7:37 PM CDT 25 mg (NS) 50 mL piggyback 25 mg, IV Piggyback, Q6HPRN, Starting Tue01/30/20 at 1300, Until Maddison 01/31/20 at 0108, 50 mL documented in this encounter Insurance Payer Benefit Plan / Subscriber ID Effective Phone Address [facility] xxxxxxxxx 2019-Marlen P.OAriella BOX Medic aid HEALTH CHOICE - HEALTH CHOICE nt [id number] 1 MANAGED MEDICAID [place], [place] MEDICAID [address] documented as of this encounter
--- OUTSIDE RECORDS SUMMARY | 2020-04-09 18:55 | XMS REPORT | Summary of Care ---
:1995 Author Organization [facility] - [facility] Address [address] [place] [address] Care Team Providers Name Role Phone Milton Novak Primary Care Provider Encounter Details Date Type Department Care Team Description 01/25/2020 Patient Secure Msg [facility] Women's Mague Rodriguez MD [address] [facility] [address] [place] [address] [place] [address] [phone] Allergies Active Allergy Reactions Severity Noted Date Comments Aripiprazole Rash 10/09/2015 Penicillins Rash 10/09/2015 documented as of this encounter (statuses as of 03/01/2020) Medications Medication Sig Dispensed Refills Start Date End Date Status PNV Take 1 30 capsule 8 07/03/2019 Disconti nued [id number] TAB-CAP/M2 by 0 1-dss-dha mouth daily. (VITAFOL FE+, WITH DOCUSATE,) 90 mg iron-1 mg -50 mg-200 mg CapIndications: High-risk in first trimester, 8 weeks gestation of FLUoxetine 10 mg Take 1 30 capsule 1 11/13/2019 D iscontinued capsuleIndicatio capsule by 0 ns: History of mouth daily. anxiety, History of depression cefdinir 300 mg 0 10/31/2019 Dis continued capsule 0 (Therapy completed) busPIRone 5 mg Take 1 tablet 60 tablet 1 11/27/2019 Discontinued tabletIndication by mouth 2 0 (R eolillian) s: History of (two) times anxiety daily. [...] Plan / Subscriber ID Effective Phone Address [employer] [facility] xxxxxxxxx 2019-Marlen P[employer]OAriella BOX Medic aid HEALTH CHOICE - HEALTH CHOICE nt [id number] 1 MANAGED MEDICAID [place], [place] MED[place]ID [phone] documented as of this encounter
--- OUTSIDE RECORDS SUMMARY | 2020-04-09 18:56 | XMS REPORT | Summary of Care ---
:1995 Author Organization [facility] - Health Address [address] [place] [id number] Care Team Providers Name Role Phone Milton Novak Primary Care Provider Encounter Details Date Type Department Care Team Description 04/02/2020 Orders Only [facility] Doctor Unassigned, No [address] [facility] [place] [address] [address] [place] [address] Allergies Active Allergy Reactions Severity Noted Date Comments Aripiprazole Rash 10/09/2015 Penicillins Rash 10/09/2015 documented as of this encounter (statuses as of 04/08/2020) Medications Medication Sig Dispensed Refills Start Date [...] Active mg capsuleIndications: mouth once daily Liveborn , of as needed for reyna , Constipation. [...] consecutive weeks, then remove for 1 week. busPIRone 5 mg Take 1 tablet by 60 tablet 1 03/27/2020 Active tabletIndications: mouth 2 (two) History of anxiety times daily. documented as of this encounter (statuses as of 04/08/2020) Active Problems Problem Noted Date Morbid obesity with body mass index of 40.0-49.9 12/12 documented as of this encounter (statuses as of 04/08/2020) Resolved Problems Problem Noted Date Resolved Date [...] as of this encounter (statuses as of 04/08/2020) Immunizations Name Administration Dates Next Due Influenza [...] Name Priority Date/Time Associated Diagnosis Comme nts MEDICATION CORRESPONDENCE Routine 04/02/2020 12:01 AM CDT documented in this encounter Results Not on filedocumented in this encounter Insurance Payer Benefit Plan / Subscriber ID Effective Phone Address [facility] xxxxxxxxx 2019-Marlen [address] Medic aid HEALTH CHOICE - HEALTH CHOICE nt [id number] 1 MANAGED MEDICAID [place], [place]ID [phone] documented as of this encounter
--- OUTSIDE RECORDS SUMMARY | 2020-04-09 18:56 | XMS REPORT | Summary of Care ---
:1995 Author Organization [facility] Address [address] [place] [address] Care Team Providers Name Role Phone Milton Novak Primary Care Provider Reason for Visit Reason Comments Refill Request Encounter Details Date Type Department Care Team Description 03/27/2020 Refill [facility] Marcia oJhn PA-C Refill Request [facility] [place] [address] [address] [place] [address] [place] [address] [phone] Allergies Active Allergy Reactions Severity Noted Date Comments Aripiprazole Rash 10/09/2015 Penicillins Rash 10/09/2015 documented as of this encounter (statuses as of 03/27/2020) Medications Medication Sig Dispensed Refills Start Date [...] mouth 2 (two) tabletIndications: times daily. Liveborn , of reyna , born in hospital by vaginal delivery, High-risk in third trimester, Morbid obesity with body mass index of 40.0-49.9, Oligohydramnios in third trimester, single or unspecified fetus, 38 weeks gestation of ibuprofen 600 mg Take 1 tablet by 30 tablet 1 02/01/2020 Active tabletIndications: mouth every 6 Liveborn infant, of (six) hours as reyna , needed [...] as of this encounter (statuses as of 03/27/2020) Active Problems Problem Noted Date Morbid obesity with body mass index of 40.0-49.9 12/12 documented as of this encounter (statuses as of 03/27/2020) Resolved Problems Problem Noted Date Resolved Date [...] 02/29/2020 vaginal delivery Common Discomforts of 01/05/2016 12/29/20 19 Overview: Round ligament pain. documented as of this encounter (statuses as of 03/27/2020) Immunizations Name Administration Dates Next Due Influenza [...] encounter Visit Diagnoses Diagnosis History of anxiety - Primary Personal history of other mental disorde r documented in this encounter Insurance Payer Benefit Plan / Subscriber ID Effective Phone Address [facility] xxxxxxxxx 2019-Marlen [address] Medic aid HEALTH CHOICE - HEALTH CHOICE nt [id number] 1 MANAGED MEDICAID [place], [place] [id number] documented as of this encounter
== END 2020-04-09 15:49 | disposition home or self-care (01) ==
LOC: ER 14:05
DX: F41.9 Anxiety disorder, unspecified (principal); Z88.0 Allergy status to penicillin; Z88.8 Allergy status to other drugs, medicaments and biological substances
CPT/HCPCS: 93005; 99284

== ENCOUNTER 2020-09-29 08:29 | Emergency (ER) | payer OTHER ==
[2020-09-29 09:07] LABS: Urine Blood NEGATIVE (NEG); Urine Glucose NEGATIVE (NEG); Urine Protein NEGATIVE (NEG); Urine pH 6.5 (5.0-7.0)
[2020-09-29 09:13] LABS: Absolute Lymphocytes (CBC) 1.3 K/uL (0.7-4.9); Basophils % 0.7 % (0-1.3); Hematocrit 40.9 % (36.0-45.0); MPV 8.6 fL (7.6-11.3); RBC Red Blood Cell Count 4.65 M/uL (3.86-4.86)
[2020-09-29 09:18] LABS: Urine Bacteria >50 /HPF (<20); Urine RBC <5 /HPF (NONE SEEN)
--- OUTSIDE RECORDS SUMMARY | 2020-09-29 09:22 | XMS REPORT | Continuity of Care Document ---
:1995 Author Organization [facility] t Address [address] [place] [address] [address] [place] [address] Care Team Providers Name Role Phone Alvaro RENEE Attending Clinician Roddy Rodriguez MD Attending Clinician ERICA WILLIAM Attending Clinician Unavailable Problems Condition Condition Condition Status Onset Resolution Last Treating Co mments Source Name Details Category Date Date Treatment Clinician Date History of History of Problem Resolve [facility] back pain back pain HL7.CCDAR2 [facility] [place] [facility] History of History of Problem Resolve [facility] depression depression HL7.CCDAR2 [facility] [place] [facility] Leg Leg Problem Active Univers swelling swelling HL7.CCDAR2 [facility] [place] [facility] Acute Acute Problem Active Univers traumatic traumatic HL7.CCDAR2 [facility] [place] [facility] t of left t of left ans knee, knee, initial initial encounter encounter Allergies, Adverse Reactions, Alerts Allergy Allergy Status Severity Reaction(s) Onset Inactive Treating Comm ents Source Name Type Date Date Clinician Abilify drug Active [facility] allergy [facility] [place] [facility] Penicill drug Active [facility] ins allergy [facility] [place] [facility] PCN Adverse Active Rash [facility] Abilify Adverse Active Rash [facility] Family History Family Member Diagnosis Comments Start Date Stop Date Source Unknown Family Family history of Family History [facility] Heart trouble [place] [facility] Unknown Family Family history of Family History [facility] Member hypertension [place] [facility] Unknown Family Family history of Family History [facility] Member mental disorder [place] [facility] Medications Ordered Filled Start Stop Current Ordering Indication Dosage Frequency Signature Comments Components Source Medication Medication Date Date Medication? Clinician (SIG) Name Name Eric Reyes 2017-10 Yes Soledad Gardner [address] [facility] 2-10 each [facility]ril [facility] DiazePAM 2 DiazePAM 2 2017-10 Yes JOEL 1 hour PO Univers MG Oral MG Oral 1-16 -DERIAN before MRI ity of Tablet Tablet 00:00: [place] [facility] [facility] Tylenol Tylenol Yes Univers with with ity of Codeine #3 Codeine #3 [place] as TABS TABS Physici ans Naproxen Naproxen Yes Univers TABS TABS [facility] [place] [facility] Magnolia Magnolia Yes Soledad Gardner not [facility] defined [facility] Procedures Procedure Date / Time Performed Performing Clinician Sour e MR Knee wo contrast 2018-08-25 00:00:00 [facility] [place] [address] Physicians [place] Extremity lower 2018-08-25 00:00:00 Univers y [facility] venous doppler bilat Physicians [id number] Encounters Start End Encounter Admission Attending Care Care Encounter Source Date/Time Date/Time Type Type Clinicians Facility Department ID 2020-09-23 2020-09-23 Outpatient [facility] [id number] [facility] 2020-09-23 2020-09-23 Out[facility] [id number] [facility] 2020-09-18 2020-09-18 Out[facility] [id number] [facility] 2020-09-03 2020-09-03 Outpatient [facility] [id number] [facility] 2020-09-02 2020-09-02 [facility] [id number] [facility] 2020-09-02 2020-09-02 [facility] [id number] [facility] St 00:00[facility]00 00[facility]00[facility] 2020-07-21 2020-07-21 [facility] [id number] [facility] 2020-07-07 2020-07-07 Refill Alvaro, [facility] [id number] 00:00:00 00:00:00 [place] [id number] [place] [id number] Professio [phone] [address] 2020-07-02 2020-07-02 Refill Alvaro [facility] [id number] 00:00:00 00:00:00 [place] [id number] [place] [id number] Professio [phone] [address] 2020-06-30 2020-06-30 Refill RodriguezMague [facility] [id number] 00:00:00 00:00:00 [place] [id number] [place] [id number] Professio [phone] [address] 2020-06-27 2020-06-27 Refill [place]ague [place] [id number] 00:00:00 00:00:00 [place] [id number] [place] [id number] Professio [phone] [address] 2020-06-27 2020-06-27 Refill Rodriguez Mague [facility] [id number] 00:00:00 00:00:00 [place] [id number] [place] [id number] Professio [phone] [address] 2020-06-11 2020-06-11 Office Alvaro [facility] [id number] 10:02:40 10:54:19 Visit Toma Zuleta [id number] [place] [id number] [facility] [phone] [address] 2018-09-18 2018-09-18 [facility] [id number] 16:15:00 16:15:00 t Urgent [facility] 2018-08-25 2018-08-[facility] [id number] [facility] 08:45:00 08:45:00 t; ERICA WILLIAM, at [place], [place] Solomon MALDONADO M.D. [facility] 2018-04-25 2018-04-25 [facility] [id number] 10:15:00 10:15:00 t [facility] 2018-04-20 2018-04-20 [facility] [id number] 16:28:00 16:28:00 t [facility] 2018-04-18 2018-04-18 [facility] [id number] 09:45:00 09:45:00 t [facility] 2018-04-11 2018-04-11 [facility] [id number] 11:30:00 11:30:00 t [facility] 2018-04-05 2018-04-05 [facility] [id number] 10:05:00 10:05:00 t [facility] 2018-04-04 2018-04-04 [facility] [id number] 11:15:00 11:15:00 t [facility] 2018-03-30 2018-03-30 [facility] [id number] 08:43:00 08:43:00 t [facility] 2018-03[facility] 2018-03-28 [facility] [id number] 11:15:00 11:15:00 t [facility] 2018-03-14 2018-03-14 [facility] [id number] 11:15:00 11:15:00 t [facility] 2018-03-09 2018-03-09 [facility] [id number] 09:30:00 09:30:00 t [facility] 2018-02-27 2018-02-27 [facility] [id number] 15:43:00 15:43:00 t [facility] 2018-02-21 2018-02-21 [facility] [id number] 15:16:00 15:16:00 t [facility] 2018-02-16 2018-02-16 [facility] [id number] 10:00:00 10:00:00 t [facility] 2018-02-07 2018-02-07 [facility] [id number] 11:15:00 11:15:00 t [facility] 2018-02-06 2018-02-06 [facility] [id number] 09:40:00 09:40:00 t [facility] 2018-01-27 2018-01-27 [facility] [id number] 09:16:00 09:16:00 [facility] 2018-01-18 2018-01-18 Outpatient Abelardo Hatch [id number] 10:00:00 10:00:00 [facility] [place] [facility] 2018-01-13 2018-01-13 Outpatient Abelardo Hatch [id number] 09:26:00 09:26:00 t Women's [facility]'s ke s - Care [facility] 2018-01-03 2018-01-03 Outpatient Abelardo Hatch [id number] 09:00[facility]00 [facility]00[facility] Results Test Description Test Time Test Results Result Source Comments Comments MR Knee wo 2018-08-11 EXAM: Left knee wo [facility] sity of contrast [address]2300 7 contrast [place] 11:31:00 MRIINDICATION: - Physici ans S83.105A Unspecified [...] fat padwhich may be related to impingement.SL: [id number] by: Leo Barragan MDDictated Date/time: 09/05/18 12:16Electronically Signed by: Leo Barragan MD 09/05/1812:23FINAL REPORT US Extremity 2018-08-11 PROCEDURE: BILATERAL Un iversity of lower venous 7 LOWER EXTREMITY VENOUS [place] doppler bilat 10:29:00 [facility]TR[facility]OUNDClinical Phy sicians [id number] Indication: - M79.89 Swelling Legs. Left leg [...] is unremarkable.IMPRESSIO N: No deep venous thrombosis.SL: [id number] by: Dima Haney MDDictated Date/time: 09/05/18 11:46Electronically Signed by: Dima Haney MD 09/05/1811:49FINAL REPORT [U] XRAY KNEE 3 2018-08-10 Images acquired, not [facility] LEFT [id number] reported on this [place] 08:[place]00 accession number. Physici ans
--- OUTSIDE RECORDS SUMMARY | 2020-09-29 09:23 | XMS REPORT ---
:[address] [facility] Address [address] [place], [address] [place] [address] Care Team Providers Name Role Phone Langford Unavailable [phone] PROBLEMS Type Condition ICD9-CM [id number] Onset Condition SNOMED Code Notes Code Code Dates Status Problem Multigravida in Z34.83 Active 414878099 third trimester Problem Obesity O99.213 Active 635736515691 affecting in third trimester Problem Panic disorder F41.0 Active 836907401 [episodic paroxysmal anxiety] Problem Generalized F41.1 Active 32361901 anxiety disorder Problem Seasonal J30.2 Active 781836187 allergies Problem Body mass index Z68.41 Active 363341176 [BMI]40.0-44.9, adult Problem Current F32.1 Active 71066957 moderate episode of major depressive disorder without prior episode Problem Morbid (severe) E66.01 Active 01594087828469 obesity due to excess calories ALLERGIES Allergen (clinical drug Drug/Non Drug Allergy Reaction Allergy Type Onset Date Status ingredient) documented on EMR PCN Rash Drug Allergy Active aripiprazole Abilify([facility] Rash Drug Allergy Active Code:[address]-87) ENCOUNTERS from 1995 to 2020-09-23 Encounter Location Date Provider Diagnosis [facility] [address] [place] Sep, Fernandez Langford Eff usion, left knee Family Medicine [address], [address]25[address]462 ; [place] [address] left knee M25. 562 ; Pain in right k nee M25.561 ; Effus ion, right knee M25. 461 ; Current moderat e episode of kwabena r depressive diso rder without prior e pisode F32.1 ; Panic disorder [episo dic paroxysmal anxi ety] F41.0 ; General ized anxiety disorde r F41.1 ; Morbid (severe) obesit y due to excess calor ies E66.01 and Body mass index [BMI]40.0 -44.9, adult Z68.41 IMMUNIZATIONS Vaccine Route Administration Date Status Afluria single dose Unknown Jul 29, 2019 Administered Adacel (Tdap) Unknown Aug 29, 2019 Administered SOCIAL HISTORY Tobacco Use: Social History Observation Description Date Details (start date - stop date) Never Smoker Sex Assigned At : Social History Observation Description Sex Assigned At Unknown PHQ9 Question Answer Notes Little interest or pleasure in doing things More than half t he days Feeling down, depressed, or hopeless More than half the days Trouble falling or staying asleep or sleeping too much More than half the days Feeling tired or having little energy More than half the day s Poor appetite or overeating More than half the days Feeling bad about yourself, or that you are a failure, Sever al days or have let yourself or your family down Trouble concentrating on things, such as reading the Several days newspaper or watching television Moving or speaking so slowly that other people could Not at all have noticed; or the opposite, being so fidgety or restless that you have been moving around a lot more than usual Total Score 12 Interpretation Moderate Depression Thoughts that you would be better off or of Not at all hurting yourself in some way Alcohol Screen Question Answer Notes Did you have a drink containing alcohol in the past Yes year? Points 1 Interpretation Negative How often did you have a drink containing alcohol in Monthly or less (1 point) the past year? Tobacco Use/Smoking Question Answer Notes Are you a never smoker REASON FOR REFERRAL No Information VITAL SIGNS Height 64 in Sep, Weight 239.2 lbs Sep, Temperature 97.7 degrees Fahrenheit Sep, BMI 41.05 kg/m2 Sep, Oximetry 97 % Sep, Respiratory Rate 19 /min Sep, Blood pressure systolic 111 mm Hg Sep, Blood pressure diastolic 64 mm Hg Sep, MEDICATIONS Medication SIG (Take, Route, Notes Start Date End Date Status Frequency, Duration) Fluoxetine HCl 20 MG 1 capsule Orally Once a Active day for 30 days BusPIRone HCl 10 MG TAKE ONE (1) TABLET(S) BY Active MOUTH TWICE A DAY. Flonase 50 MCG/ACT 2 sprays each nostril prn Sep, Not-Taking Nasally Once a day for 30 days Fluoxetine HCl 20 MG TAKE ONE (1) CAPSULE(S) Active BY MOUTH ONCE A DAY. BusPIRone HCl 10 MG 1 tablet Orally Twice a Active day for 30 days Magnolia Not-Taking PROCEDURES No Information RESULTS Component Value Reference Range Knee Left 3 View Reviewed date:09/23/2020 11:53:08 Interpretation:Negative Performing Lab: Knee Right 3 View Reviewed date:09/23/2020 11:53:36 Interpretation:Negative Performing Lab: REASON FOR VISIT Swollen knee w/ pain * IN LOBBY MEDICAL (GENERAL) HISTORY Type Description Date Medical History Seasonal allergies Surgical History No Surgical history information Goals Section No Information Health Concerns No Information MEDICAL EQUIPMENT No Information MENTAL STATUS No Information FUNCTIONAL STATUS No Information ASSESSMENTS Encounter Date Diagnosis Assessment Notes Treatment Notes Treatm ent Clinical Notes Sep, Effusion, left knee (ICD-10 - M25.462) Sep, Pain in left knee Discussed (ICD-10 - M25.562) differential diagnosis extensively with patient. Education given. Encouraged on making lifestyle changes. Discussed supportive measures for symptomatic relief. Will obtain x-rays bilaterally. Depending on results will refer to orthopedic. Discussed conservative treatment options at this time including but not limited to weight loss, compression, anti-inflammatories as directed, exercise. Patient vocalized understanding. Sep, Pain in right knee (ICD-10 - M25.561) Sep, Effusion, right knee (ICD-10 - M25.461) Sep, Current moderate Actively listented. episode of major Support given. depressive Discussed treatment disorder without options. Medication prior episode + (ICD-10 - F32.1) Counseling/Therapy. Infomation provided for psychologist for therapy options, encouraged to call to make an appt. INCREASED Prozac 20 mg and titrate as tolerated. Instructions and side effects discussed. -- Depression Education: Depression is a brain disease that makes you sad, but it is different than normal sadness. Depressed people feel down most of the time for at least 2 weeks. They also have at least one of these 2 symptoms: 1. They no longer enjoy or care about doing the things they used to like to do. 2. They feel sad, down, hopeless, or cranky most of the day, almost every day. It can also make you: lose or gain weight; sleep too much or too little; fell tired or like you have no energy; feel guilty or like you are worth nothing; forget things or feel confused; and think about or suicide. Medication and/or seeing a counselor (such as a psychiatrist, psychologist, nurse or social service director) may be necessary to treat depression. Both treatments take time to work. If you ever feel like you might hurt yourself or some else, then call your doctor or call 911 or go to the ER. Sep, Panic disorder [episodic paroxysmal anxiety] (ICD-10 - F41.0) Sep, Generalized Increase BuSpar to anxiety disorder 10 mg twice daily. (ICD-10 - F41.1) Titrate as tolerated. Sativa panel discussed.-- Anxiety Education: Anxiety is a feeling of anxiousness or nervousness. Being extremely anxious or worried on most days for 6 months or longer is not normal. This is a type of anxiety disorder. This disorder can make it hard to do everyday tasks. Other types of anxiety include: post traumatic stress disorder, panic disorder, and phobias. Symptoms of anxiety may include: feeling worried or on the edge, trouble sleeping, or forgetting things. Feelings of stomach aches or chest tightness is another common symptom. Medicine, exercise, and other treatments like counseling, talk therapy, yoga, and massages maybe necessary to treat this disorder. Sep, Morbid (severe) Actively listened. obesity due to Support given. excess calories Counseling given. (ICD-10 - E66.01) Education given. Utilized the 5-A''s approach to increase patient motivation and behavioral change. ASK: Patient expressed desire/readiness to change and permission was obtained to discuss. ASSESS: BMI class discussed. In addition, patient''s barrier to weight loss and identified drivers and complications. ADVISE: Discussed benefits of modest weight loss and long-term strategy as well. Educated on risks and complications of obesity on health. Treatment options were discussed including but not limited to non-surgical (medications, gym, diet/exercise) and surgical options. AGREE: Realistic weight-loss goal discussed. Behavioral goals done. Patient agreed with treatment plan. ASSIST: Provided education and resources. Plan made to address drivers and barriers. Close follow-up arranged. START: Walking daily, reducing soda and increased hydration with water of at least 64 ounces. Weight has been followed. At least 15 minutes were spent counseling. Sep, Body mass index [BMI]40.0-44.9, adult (ICD-10 - Z68.41) Sep, Other -- Medication reviewed and updated. -- Dietary and Lifestyle modifications addressed regarding diet, exercise and weight managemen t. -- Treatment options, risks and benefits, side effects reviewed in detail. -- Advised on signs/symptoms to monitor and when to call clinic and/or visit the nearest ER. Patient verbalized understanding and agreeable with plan. PLAN OF TREATMENT Medication Medication Name Sig Start Date Stop Date Fluoxetine HCl 20 MG 1 capsule Orally Once a day for 30 days BusPIRone HCl 10 MG 1 tablet Orally Twice a day for 30 days Treatment Notes Assessment Notes Clinical Notes Pain in left knee Discussed differential diagnosis extensively with patient. Education given. Encouraged on making lifestyle changes. Discussed supportive measures for symptomatic relief. Will obtain x-rays bilaterally. Depending on results will refer to orthopedic. Discussed conservative treatment options at this time including but not limited to weight loss, compression, anti-inflammatories as directed, exercise. Patient vocalized understanding. Current moderate episode of major Actively listented. Suppor t given. depressive disorder without prior Discussed treatment option s. episode Medication + Counseling/Therapy. Infomation provided for psychologist for therapy options, encouraged to call to make an appt. INCREASED Prozac 20 mg and titrate as tolerated. Instructions and side effects discussed. -- Depression Education: Depression is a brain disease that makes you sad, but it is different than normal sadness. Depressed people feel down most of the time for at least 2 weeks. They also have at least one of these 2 symptoms: 1. They no longer enjoy or care about doing the things they used to like to do. 2. They feel sad, down, hopeless, or cranky most of the day, almost every day. It can also make you: lose or gain weight; sleep too much or too little; fell tired or like you have no energy; feel guilty or like you are worth nothing; forget things or feel confused; and think about or suicide. Medication and/or seeing a counselor (such as a psychiatrist, psychologist, nurse or social service director) may be necessary to treat depression. Both treatments take time to work. If you ever feel like you might hurt yourself or some else, then call your doctor or call 911 or go to the ER. Generalized anxiety disorder Increase BuSpar to 10 mg twice daily. Titrate as tolerated. Sativa panel discussed.-- Anxiety Education: Anxiety is a feeling of anxiousness or nervousness. Being extremely anxious or worried on most days for 6 months or longer is not normal. This is a type of anxiety disorder. This disorder can make it hard to do everyday tasks. Other types of anxiety include: post traumatic stress disorder, panic disorder, and phobias. Symptoms of anxiety may include: feeling worried or on the edge, trouble sleeping, or forgetting things. Feelings of stomach aches or chest tightness is another common symptom. Medicine, exercise, and other treatments like counseling, talk therapy, yoga, and massages maybe necessary to treat this disorder. Morbid (severe) obesity due to Actively listened. Support gi cecil. excess calories Counseling given. Education given. Utilized the 5-A''s approach to increase patient motivation and behavioral change. ASK: Patient expressed desire/readiness to change and permission was obtained to discuss. ASSESS: BMI class discussed. In addition, patient''s barrier to weight loss and identified drivers and complications. ADVISE: Discussed benefits of modest weight loss and long-term strategy as well. Educated on risks and complications of obesity on health. Treatment options were discussed including but not limited to non-surgical (medications, gym, diet/exercise) and surgical options. AGREE: Realistic weight-loss goal discussed. Behavioral goals done. Patient agreed with treatment plan. ASSIST: Provided education and resources. Plan made to address drivers and barriers. Close follow-up arranged. START: Walking daily, reducing soda and increased hydration with water of at least 64 ounces. Weight has been followed. At least 15 minutes were spent counseling. Next Appt Details 3 Weeks WELLNESS + LABS Reason: Provider Name:Fernandez Langford, 2020-10-16 0 1:40:00 PM, [address], [place], [address], Insurance Providers Payer Name Payer Payer Insured Patient Coverage Coverage End Address Phone Name Relationship to Start Date [employer] [phone] Nicolasa Rose self HEALTH CHOICE [id number] [address] [facility] [address] MEDICAID [phone] Nicolasa Rose self [id number] [address] [facility] [address]
--- OUTSIDE RECORDS SUMMARY | 2020-09-29 09:23 | XMS REPORT ---
:1995 Author Organization [facility] Address [address] [place] [address] Care Team Providers Name Role Phone Langford Unavailable [phone] PROBLEMS Type Condition ICD9-CM [id number] Onset Condition SNOMED Code Notes Code Code Dates Status Problem Multigravida in Z34.83 Active 319565636 third trimester Problem Obesity O99.213 Active 088714896918 affecting in third trimester Problem Panic disorder F41.0 Active 036430570 [episodic paroxysmal anxiety] Problem Generalized F41.1 Active 11459443 anxiety disorder Problem Seasonal J30.2 Active 662400553 allergies Problem Body mass index Z68.41 Active 230072436 [BMI]40.0-44.9, adult Problem Current F32.1 Active 36732528 moderate episode of major depressive disorder without prior episode Problem Morbid (severe) E66.01 Active 20435812741300 obesity due to excess calories ALLERGIES Allergen (clinical drug Drug/Non Drug Allergy Reaction Allergy Type Onset Date Status ingredient) documented on EMR PCN Rash Drug Allergy Active aripiprazole Abilify([facility] Rash Drug Allergy Active Code:[address]-49) ENCOUNTERS from 1995 to 2020-09-23 Encounter Location Date Provider Diagnosis [facility] [address] [place] Sep, Fernandez Primitivo sandoval in right knee Family Medicine [address], [address] [place] [address] left knee M25. 562 IMMUNIZATIONS Vaccine Route Administration Date Status Afluria [...] REASON FOR REFERRAL No Information VITAL SIGNS No information MEDICATIONS Medication SIG (Take, Route, Notes Start [...] days Magnolia Not-Taking PROCEDURES No Information RESULTS No Results REASON FOR VISIT Knee Pain MEDICAL (GENERAL) HISTORY Type Description Date Medical History Seasonal allergies Surgical History No Surgical history information Goals Section No Information Health Concerns No Information MEDICAL EQUIPMENT No Information MENTAL STATUS No Information FUNCTIONAL STATUS No Information ASSESSMENTS Encounter Date Diagnosis Assessment Notes Treatment Notes Treatm ent Clinical Notes Sep, Pain in right knee (ICD-10 - M25.561) Sep, Pain in left knee (ICD-10 - M25.562) PLAN OF TREATMENT Medication Medication Name Sig Start Date Stop Date Fluoxetine HCl 20 MG 1 capsule Orally Once a day for 30 days BusPIRone HCl 10 MG 1 tablet Orally Twice a day for 30 days Next Appt Details Provider Name:Fernandez Langford, 2020-10-16 0 1:40:00 PM, [address], [place], [address], Insurance Providers Payer Name Payer Payer Insured Patient Coverage Coverage End Address Phone Name Relationship to Start Date [employer] [phone] Nicolasa Rose HE[employer] CHOICE [id number] [address] [facility] [address] MEDICAID [phone] Nicolasa Rose [id number] [address] [facility] [address]
[2020-09-29 09:31] LABS: ALT/SGPT 32 U/L (12-78); AST/SGOT 20 U/L (15-37); Albumin 3.5 g/dL (3.4-5.0); Alkaline Phosphatase 74 U/L (45-117); BUN Blood Urea Nitrogen 12 mg/dL (7-18); Bicarbonate 28 mmol/L (21-32); Bilirubin Direct < 0.1 mg/dL (0-0.2); Bilirubin Total 0.3 mg/dL (0.2-1.0); Glucose Level 91 mg/dL (74-106); Lipase 114 U/L (73-393); Potassium 4.5 mmol/L (3.5-5.1); Protein, Total 7.4 g/dL (6.4-8.2); Sodium Level 139 mmol/L (136-145)
--- NOTE | 2020-09-29 09:43 | RAD REPORT ---
EXAM DESCRIPTION: CT - Abdomen Pelvis W Contrast - 09/29/2020 9:12 am CLINICAL HISTORY: Abdominal pain COMPARISON: 2001 TECHNIQUE: Computed axial tomography of the abdomen pelvis was obtained. 100 cc Isovue-300 was admin istered intravenously. Oral contrast was not requested which limits evaluation of bowel. All CT scans are performed using dose optimization technique as appropriate and may include automated exposure control or mA/KV adjustment according to patient size. FINDINGS: The liver, spleen, pancreas, and adrenals appear unremarkable. Tiny nonobstructing bilateral renal calculi There is no evidence of diverticulitis. Normal appendix. Tiny umbilical hernia Moderate dilatation of a loop of jejunum within the anterior left abdomen IMPRESSION: Tiny bilateral nonobstructing renal calculi Moderate dilatation of a loop of jejunum within the anterior left abdomen may represent a focal ileus . If the patient's symptoms persist then further evaluation with a small bowel series would be recomm ended
--- NOTE | 2020-09-29 10:10 | ER ---
Nurse's Notes [facility] Name: Nicolasa Rose Age: 25 yrs Sex: Female : 1995 Arrival Date: 09/29/2020 Time: 08:31 Bed 20 Private MD: Fernandez Langford Diagnosis: Lower abdominal pain, unspecified;Urinary tract infection, site not specified Presentation: 09/29 08:42 Chief complaint: Patient states: lower abd pain and pelvic pain since last night, iw denies n/v/d , denies urinary s/s. Coronavirus screen: At this time, the client does not indicate any symptoms associated with coronavirus-19. Ebola Screen: Patient negative for fever greater than or equal to 101.5 degrees Fahrenheit, and additional compatible Ebola Virus Disease symptoms Patient denies exposure to infectious person. Patient denies travel to an Ebola-affected area in the 21 days before illness onset. No symptoms or risks identified at this time. Initial Sepsis Screen: Does the patient meet any 2 criteria? No. Patient's initial sepsis screen is negative. Does the patient have a suspected source of infection? No. Patient's initial sepsis screen is negative. Risk Assessment: Do you want to hurt yourself or someone else? Patient reports no desire to harm self or others. Onset of symptoms was September 28, 2020. 08:42 Method Of Arrival: Ambulatory iw 08:42 Acuity: ROSENDO 3 iw Triage Assessment: 08:45 General: Appears in no apparent distress. comfortable, obese, Behavior is calm, bp cooperative, appropriate for age. Pain: Complains of pain in abdomen. EENT: No deficits noted. Neuro: No deficits noted. Cardiovascular: No deficits noted. Respiratory: No deficits noted. GI: Reports lower abdominal pain. : No signs and/or symptoms were reported regarding the genitourinary system. Derm: No deficits noted. Musculoskeletal: No deficits noted. 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 - Social history:: Smoking status: Patient denies any tobacco usage or history of. - Family history:: not pertinent. - Hospitalizations: : No recent hospitalization is reported. Screenin:45 Abuse screen: Denies threats or abuse. Denies injuries from another. Nutritional bp screening: No deficits noted. Tuberculosis screening: No symptoms or risk factors identified. Fall Risk None identified. Assessment: 08:45 General: SEE TRIAGE NOTE. bp 09:55 Reassessment: Patient appears in no apparent distress at this time. Patient and/or bp family updated on plan of care and expected duration. Pain level reassessed. Patient is alert, oriented x 3, equal unlabored respirations, skin warm/dry/pink. 10:18 Reassessment: PT D/C HOME AMBULATORY, DX WITH UTI. bp Vital Signs: 08:46 Pulse 73; Resp 16; Temp 96.8; Pulse Ox 100% on R/A; Weight 108.41 kg; Height 5 ft. 5 iw in. (165.10 cm); Pain 6/10; 09:55 BP 97 / 84; Pulse 65; Resp 16; Pulse Ox 100% ; bp 10:17 BP 111 / 69; Pulse 61; Resp 17; Temp 98; Pulse Ox 100% ; bp 08:46 Body Mass Index 39.77 (108.41 kg, 165.10 cm) iw ED Course: 08:31 Patient arrived in ED. ag5 08:31 Fernandez Langford DO is Private Physician. ag5 08:38 Vickey Myles, RN is Primary Nurse. bp 08:43 Luciano Batista MD is Attending Physician. rn 08:45 Triage completed. iw 08:45 Arm band placed on. iw 08:45 Patient has correct armband on for positive identification. Bed in low position. Call bp light in reach. Side rails up X2. 09:00 Inserted saline lock: 20 gauge in right antecubital area, using aseptic technique. bp Blood collected. 09:01 Urine Microscopic Only Sent. bp 09:07 CT Abd/Pelvis - IV Contrast Only Sent. bp 09:11 CT Abd/Pelvis - IV Contrast Only In Process Unspecified. EDMS 10:18 No provider procedures requiring assistance completed. IV discontinued, intact, bp bleeding controlled, No redness/swelling at site. Pressure dressing applied. Administered Medications: No medications were administered Outcome: 10:10 Discharge ordered by . rn 10:19 Discharged to home ambulatory. bp 10:19 Condition: stable 10:19 Discharge instructions given to patient, Instructed on discharge instructions, follow up and referral plans. medication usage, Demonstrated understanding of instructions, follow-up care, medications, Prescriptions given X 1. 10:19 Patient left the ED. bp Signatures: Dispatcher [employer] Nallely Negro, Luciaon Duran RN, MD MD rn Peltier, Brian, RN RN bp Gaskin, Ajare 5
--- NOTE | 2020-09-29 10:10 | EDPHYS ---
Physician Documentation [facility] Name: Nicolasa Rose Age: 25 yrs Sex: Female : 1995 Arrival Date: 09/29/2020 Time: 08:31 Bed 20 Private MD: Fernandez Langford ED Physician Luciano Batista HPI: 09/29 09:31 This 25 yrs old Female presents to ER via Ambulatory with complaints of rn Abdominal Pain. 09:31 The patient presents with abdominal pain right lower quadrant. Onset: The rn symptoms/episode began/occurred last night. The symptoms do not radiate. Associated signs and symptoms: Pertinent negatives: nausea and vomiting, blood in stools, chest pain, constipation, diarrhea, dysuria, fever, headache, hematuria, vaginal discharge, vomiting, vomiting blood. The symptoms are described as crampy, intermittent. Modifying factors: The symptoms are alleviated by nothing, the symptoms are aggravated by nothing. Severity of pain: At its worst the pain was moderate in the emergency department the pain has improved. The patient has not experienced similar symptoms in the past. The patient has not recently seen a physician. 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 - Social history:: Smoking status: Patient denies any tobacco usage or history of. - Family history:: not pertinent. - Hospitalizations: : No recent hospitalization is reported. ROS: 09:31 Constitutional: Negative for fever, chills, and weight loss, Eyes: Negative for injury, rn pain, redness, and discharge, Neck: Negative for injury, pain, and swelling, Cardiovascular: Negative for chest pain, palpitations, and edema, Respiratory: Negative for shortness of breath, cough, wheezing, and pleuritic chest pain, Abdomen/GI: Negative for nausea, vomiting, diarrhea, and constipation, Back: Negative for injury and pain, : Negative for injury, bleeding, discharge, and swelling, MS/Extremity: Negative for injury and deformity, Skin: Negative for injury, rash, and discoloration, Neuro: Negative for headache, weakness, numbness, tingling, and seizure. Exam: 09:31 Constitutional: Overweight female, no acute distress, smiling, using phone. Head/Face: rn Normocephalic, atraumatic. Cardiovascular: Regular rate and rhythm. No pulse deficits. Respiratory: No increased work of breathing, no retractions or nasal flaring. Abdomen/GI: soft, mild RLQ tenderness, no peritoneal signs Skin: Warm, dry with normal turgor. Normal color with no rashes, no lesions, and no evidence of cellulitis. MS/ Extremity: Pulses equal, no cyanosis. Neurovascular intact. Full, normal range of motion. Equal circumference. Neuro: Awake and alert, GCS 15 Vital Signs: 08:46 Pulse 73; Resp 16; Temp 96.8; Pulse Ox 100% on R/A; Weight 108.41 kg; Height 5 ft. 5 iw in. (165.10 cm); Pain 6/10; 09:55 BP 97 / 84; Pulse 65; Resp 16; Pulse Ox 100% ; bp 10:17 BP 111 / 69; Pulse 61; Resp 17; Temp 98; Pulse Ox 100% ; bp 08:46 Body Mass Index 39.77 (108.41 kg, 165.10 cm) iw MDM: 08:43 Patient medically screened. rn 10:08 Differential diagnosis: appendicitis, non-specific abd pain, Ureterolithiasis, urinary rn tract infection. Data reviewed: vital signs, nurses notes, lab test result(s), radiologic studies, CT scan, and as a result, I will discharge patient. Counseling: I had a detailed discussion with the patient and/or guardian regarding: the historical points, exam findings, and any diagnostic results supporting the discharge/admit diagnosis, lab results, radiology results, the need for outpatient follow up, to return to the emergency department if symptoms worsen or persist or if there are any questions or concerns that arise at home. Special discussion: Based on the patient's Hx, exam, and Dx evaluation, there is no indication for emergent surgery or inpatient Tx. It is understood by the patient/guardian that if the Sx's persist or worsen they need to return immediately for re-evaluation. I discussed with the patient/guardian in detail that at this point there is no indication for admission to the hospital. It is understood, however, that if the symptoms persist or worsen the patient needs to return immediately for re-evaluation. ED course: Possible UTI vs passed stone, ct shows nonspecific duodenal loop dilation, patient without left sided abd pain or constipation, is having normal bowel movement, no nausea/vomiting. Will dc home with abx and return precautions. . 09/29 08:47 Order name: Basic Metabolic Panel; Complete Time: 09:46 09/29 08:47 Order name: CBC with Diff; Complete Time: 09:25 09/29 08:47 Order name: Hepatic Function; Complete Time: 09:46 rn 09/29 08:47 Order name: Lipase; Complete Time: 09:46 rn 09/29 08:47 Order name: Urine Microscopic Only; Complete Time: 09:25 09/29 09:02 Order name: Urine Dipstick--Ancillary (enter results) 09/29 08:47 Order name: IV Saline Lock; Complete Time: 09:07 09/29 08:47 Order name: Labs collected and sent; Complete Time: 09:06 09/29 08:47 Order name: CT Abd/Pelvis - IV Contrast Only; Complete Time: 09:46 09/29 08:47 Order name: Urine Test (obtain specimen); Complete Time: 09:01 09/29 09:02 Order name: Urine --Ancillary (enter results) 09/29 09:07 Order name: Urine --Ancillary; Complete Time: 09:25 [facility] 09/29 09:07 Order name: Urine Dipstick-Ancillary; Complete Time: 09:25 [facility] 09/29 09:24 Order name: Urine Culture [facility] 09/29 08:47 Order name: Urine Dipstick-Ancillary (obtain specimen); Complete Time: 09:01 rn Administered Medications: No medications were administered Disposition: 09/29/20 10:10 Discharged to Home. Impression: Lower abdominal pain, unspecified, Urinary tract infection, site not specified. - Condition is Stable. - Discharge Instructions: Abdominal Pain, Adult, Urinary Tract Infection, Adult. - Prescriptions for Cipro 500 mg Oral Tablet - take 1 tablet by ORAL route every 12 hours for 7 days; 14 tablet. - Medication Reconciliation Form, Thank You Letter, Antibiotic Education, Prescription Opioid Use form. - Follow up: Private Physician; When: As needed; Reason: Recheck today's complaints, Re-evaluation by your physician. - Problem is new. - Symptoms have improved. Signatures: Dispatcher [employer] EDNallely Ball RN RN iw Nieto, Roman, MD MD rn Peltier, Brian, RN RN bp Corrections: (The following items were deleted from the chart) 10:19 10:10 09/29/2020 10:10 Discharged to Home. Impression: Lower abdominal pain, bp unspecified; Urinary tract infection, site not specified. Condition is Stable. Forms are Medication Reconciliation Form, Thank You Letter, Antibiotic Education, Prescription Opioid Use. Follow up: Private Physician; When: As needed; Reason: Recheck today's complaints, Re-evaluation by your physician. Problem is new. Symptoms have improved. rn
[2020-09-30 19:50] VITALS: O2SAT 100
[2020-09-30 19:52] VITALS: BP 111/69; TEMP 98
== END 2020-09-29 10:19 | disposition home or self-care (01) ==
LOC: ER 08:29
DX: N39.0 Urinary tract infection, site not specified (principal); Z88.0 Allergy status to penicillin; Z88.8 Allergy status to other drugs, medicaments and biological substances
CPT/HCPCS: 87088; 85025; 87086; 80048; 36415; 81025; 80076; 83690; 74177; 99284; Q9967; 81003; 81015

== ENCOUNTER 2020-12-29 08:23 | Emergency (ER) | payer OTHER ==
--- OUTSIDE RECORDS SUMMARY | 2020-12-29 08:26 | XMS REPORT | Continuity of Care Document ---
:1995 Author Organization [facility] t Address [address] [place] [address] Care Team Providers Name Role Phone Alvaro RENEE Attending Clinician Doctor Unassigned, Name Attending Clinician Unavailable ERICA WILLIAM Attending Clinician Unavailable Problems Condition Condition Condition Status Onset Resolution Last Treating Co mments Source Name Details Category Date Date Treatment Clinician Date History of History of Problem Resolve [facility] back pain back pain HL7.CCDAR2 [facility] [place] [facility] History of History of Problem Resolve [facility] depression depression HL7.CCDAR2 [facility] [place] [facility] Leg Leg Problem Active Univers swelling swelling HL7.CCDAR2 [facility] [place] [facility] Acute Acute Problem Active Univers traumatic traumatic HL7.CCDAR2 ity of internal internal [place] derangemen derangemen Ph ysici t of left t of left ans knee, knee, initial initial encounter encounter Allergies, Adverse Reactions, Alerts Allergy Allergy Status Severity Reaction(s) Onset Inactive Treating Comm ents Source Name Type Date Date Clinician Abilify drug Active [facility] allergy [facility] [place] [facility] Penicill drug Active [facility] ins allergy [facility] [place] [facility] PCN Adverse Active Rash [facility] Abilify Adverse Active Rash [facility] Family History Family Member Diagnosis Comments Start Date Stop Date Source Unknown Family Family history of Family History [facility] Member hypertension [place] [facility] Unknown Family Family history of Family History [facility] Member mental disorder [place] [facility] Unknown Family Family history of Family History [facility] Member Heart trouble [place] [facility] Medications Ordered Filled Start Stop Current Ordering Indication Dosage Frequency Signature Comments Components Source Medication Medication Date Date Medication? Clinician (SIG) Name Name Eric Reyes 2017-10 Yes Soled[facility] Long [address] [facility] 2-10 each [facility] nostril [facility] 00 [facility] DiazePAM 2 DiazePAM 2 2017-10 [...] [place] [facility] Magnolia Magnolia Yes Soledad Long not [facility] Procedures Procedure Date / Time Performed Performing Clinician Sour e MR Knee wo contrast 2018-08-25 00:00:00 [facility] [id number] Physicians [place] Extremity lower 2018-08-25 00:00:00 [facility] venous doppler bilat Physicians [id number] Encounters Start End Encounter Admission Attending Care Care Encounter Source Date/Time Date/Time Type Type Clinicians Facility Department ID 2020-11-04 2020-11-04 [facility] [id number] 2020-11-03 2020-11-03 Out[facility] [id number] [facility] 2020-10-15 2020-10-15 Telephone BARRERA John [id number] 00:00:00 00:00:00 Toma Zuleta [id number] Donaldo [id number] Professio [id number] [address] 2020-10-14 2020-10-14 Case [facility] [id number] 00:00:00 00:00:00 Management Tomahector Zuleta [id number] [place] [id number] Professio [id number] [address] 2020-10-14 2020-10-14 Telephone [facility] [id number] 00:00:00 00:00:00 Toma Zuleta [id number] [place] [id number] Professio [phone] [address] 2020-10-06 2020-10-06 [facility] [id number] 18:51:56 23:59:00 Encounter Toma Zuleta [id number] [place] [id number] Ponder [id number] 2020-10-06 2020-10-06 Orders Doctor POPPY [id number] 00:00:00 00:00:00 Only Unassigned, JOSELITO [id number] [facility] [id number] [id number] 2020-10-01 2020-10-01 Orders Doctor POPPY [id number] 00:00:00 00:00:00 Only Unassigned, JOSELITO [id number] Nellie [facility] [id number] [id number] 2020-09-30 2020-09-30 [facility] [id number] 10:09:30 11:23:11 Visit Toma Zuleta [id number] [place] [id number] [id number] [address] 2020-09-25 2020-09-25 [facility] [id number] [facility] St 00:00:00 00:00:00 [facility] ent Clinics 2020-09-23 2020-09-23 [facility] [id number] [facility] 2020-09-23 2020-09-23 Outpatient [facility] [id number] [facility] 2020-09-18 2020-09-18 Outpatient [facility] [id number] [facility] 2020-09-03 2020-09-03 Outpatient [facility] [id number] [facility] 2020-09-02 2020-09-02 Out[facility] [id number] [facility] 2020-09-02 2020-09-02 Outpatient [facility] [id number] [facility] 2020-07-21 2020-07-21 Outpatient [facility] [id number] [facility] 2018-09-18 2018-09-18 [facility] [id number] 16:15:00 16:15:00 t Urgent Urgent Care L [facility] Outpati ent [facility] 2018-08-25 2018-08-25 [facility] ERICA [facility] Orthopedics [id number] [facility] 08:45:00 08:45:00 t; ERICA WILLIAM, at [place], [place] Solomon MALDONADO M.D. ans 2018-04-25 2018-04-25 [facility] [id number] 10:15:00 10:15:00 [facility] 2018-04-20 2018-04-20 [facility] [id number] 16:28:00 16:28:00 [facility] Outpat[facility] 2018-04-18 2018-04-18 [facility] [id number] 09:45:00 09:45:00 [facility] 2018-04[facility]11 2018-04-11 [facility] [id number] 11:30:00 11:30:00 [facility] 2018-04-05 2018-04-05 [facility] [id number] 10:05:00 10:05:00 [facility] 2018-04-04 2018-04-04 [facility] [id number] 11:15:00 11:15:00 [facility] 2018-03-30 2018-03-30 [facility] [id number] 08:43:00 08:43:00 [facility] 2018-03-28 2018-03-28 [facility] [id number] 11:15:00 11:15:00 [facility] 2018-03-14 2018-03-14 [facility] [id number] 11:15:00 11:15:00 [facility] 2018-03-09 2018-03-09 [facility] [id number] 09:30:00 09:30:00 [facility] 2018-02-27 2018-02-27 [facility] [id number] 15:43:00 15:43:00 [facility] 2018-02-21 2018-02-21 [facility] [id number] 15:16:00 15:16:00 [facility] 2018-02-16 2018-02-16 [facility] [id number] 10:00:00 10:00:00 [facility] 2018-02-07 2018-02-07 [facility] [id number] 11:15:00 11:15:00 [facility] 2018-02-06 2018-02-06 [facility] [id number] 09:40:00 09:40:00 [facility] 2018-01-27 2018-01-27 [facility] [id number] 09:16:00 09:16:00 [facility] 2018-01-18 2018-01-18 [facility] [id number] 10:00:00 10:00:00 [facility] 2018-01-13 2018-01-13 [facility] [id number] 09:26:00 09:26:00 [facility] 2018-01-03 2018-01-03 [facility] [id number] 09:00:00 09:00:00 [facility] Results Test Description Test Time Test Results Result Source Comments Comments MR Knee wo 2018-08-11 EXAM: Left knee wo Univer sity of contrast [id number] contrast [place] 11:31:00 MRIINDICATION: - Physici [...] fat padwhich may be related to impingement.SL: [id number]--Pady by: Leo Barragan MDDictated Date/time: 09/05/18 12:16Electronically Signed by: Leo Barragan MD 09/05/1812:23FINAL REPORT US Extremity 2018-08-11 PROCEDURE: BILATERAL Un iversity of lower venous 7 LOWER EXTREMITY VENOUS [place] doppler bilat 10:29:00 [facility]Clinical [facility] [id number] Indication: - M79.89 Swelling Legs. Left leg [...] is unremarkable.IMPRESSIO N: No deep venous thrombosis.SL: [id number]--Mmau by: Dima Haney MDDictated Date/time: 09/05/18 11:46Electronically Signed by: Dima Haney MD 09/05/1811:49FINAL REPORT [U] XRAY KNEE 3 2018-08-10 Images acquired, not [facility] LEFT [id number] [place] 08:56[place] accession [place]. Physici ans
--- NOTE | 2020-12-29 09:38 | RAD REPORT ---
EXAM DESCRIPTION: RAD - Ankle Left 3 View - 12/29/2020 9:17 am CLINICAL HISTORY: PAIN COMPARISON: Ankle Left 3 View dated 12/18/2016 FINDINGS: Soft tissue swelling is seen about the lateral malleolus. No acute fracture or dislocation seen. Small plantar calcaneal spur.
--- NOTE | 2020-12-29 09:40 | EDPHYS ---
Physician Documentation [facility] Name: Nicolasa Rose Age: 25 yrs Sex: Female : 1995 Arrival Date: 12/29/2020 Time: 08:27 Bed 23 Private MD: ED Physician Luciano Batista HPI: 12/29 08:51 This 25 yrs old Female presents to ER via Ambulatory with complaints of Fall rn Injury. 08:51 Details of fall: The patient fell from a height, down approximately 3 stairs. Onset: rn The symptoms/episode began/occurred 3 day(s) ago. Associated injuries: The patient sustained left ankle. Severity of symptoms: At their worst the symptoms were mild, in the emergency department the symptoms are unchanged. It is unknown whether or not the patient has had similar symptoms in the past. Reports mis-step 3 days ago, rolled left ankle after falling down a few steps, denies head injury/neck pain/rib pain/back pain. Is ambulatory on that ankle, improved after Ezequiel wrap. . 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 - Social history:: Smoking status: Patient denies any tobacco usage or history of. - Family history:: not pertinent. - Hospitalizations: : No recent hospitalization is reported. ROS: 08:51 Neck: Negative for injury, pain, and swelling, Back: Negative for injury and pain, rn MS/Extremity: + left ankle injury and swelling Skin: Negative for injury, rash, and discoloration, Neuro: Negative for weakness, numbness, tingling, and seizure. Exam: 08:51 Constitutional: This is a well developed, well nourished patient who is awake, alert, rn and in no acute distress. MS/ Extremity: Pulses equal, no cyanosis. Neurovascular intact. Full, normal range of motion. + mild tenderness left lateral malleolus, with mild swelling. Vital Signs: 08:31 BP 115 / 72; Pulse 61; Resp 14; Temp 98.2(TE); Pulse Ox 99% on R/A; Weight 108.86 kg; ss Height 5 ft. 5 in. (165.10 cm); Pain 7/; 08:31 Body Mass Index 39.94 (108.86 kg, 165.10 cm) ss MDM: 08:42 Patient medically screened. rn 09:40 Differential diagnosis: fracture, sprain, strain. Data reviewed: vital signs, nurses rn notes, radiologic studies, plain films, and as a result, I will discharge patient. Counseling: I had a detailed discussion with the patient and/or guardian regarding: the historical points, exam findings, and any diagnostic results supporting the discharge/admit diagnosis, radiology results, the need for outpatient follow up, to return to the emergency department if symptoms worsen or persist or if there are any questions or concerns that arise at home. Special discussion: I discussed with the patient/guardian in detail that at this point there is no indication for admission to the hospital. It is understood, however, that if the symptoms persist or worsen the patient needs to return immediately for re-evaluation. 12/29 08:42 Order name: Ankle Left 3 View XRAY; Complete Time: 09:39 ss Administered Medications: No medications were administered Disposition: 12/29/20 09:40 Discharged to Home. Impression: Sprain of unspecified ligament of left ankle. - Condition is Stable. - Discharge Instructions: Ankle Sprain. - Medication Reconciliation Form, Thank You Letter, Antibiotic Education, Prescription Opioid Use form. - Follow up: Private Physician; When: As needed; Reason: Recheck today's complaints, Re-evaluation by your physician. - Problem is new. - Symptoms have improved. Signatures: Dispatcher [employer] EDLuciano Pak MD MD rn Smirch, Shelby, RN RN ss Corrections: (The following items were deleted from the chart) 09:55 09:40 12/29/2020 09:40 Discharged to Home. Impression: Sprain of unspecified ligament ss of left ankle. Condition is Stable. Discharge Instructions: Ankle Sprain. Forms are Medication Reconciliation Form, Thank You Letter, Antibiotic Education, Prescription Opioid Use. Follow up: Private Physician; When: As needed; Reason: Recheck today's complaints, Re-evaluation by your physician. Problem is new. Symptoms have improved. rn
--- NOTE | 2020-12-29 09:40 | ER ---
Nurse's Notes [facility] Name: Nicolasa Rose Age: 25 yrs Sex: Female : 1995 Arrival Date: 12/29/2020 Time: 08:27 Bed 23 Private MD: Diagnosis: Sprain of unspecified ligament of left ankle Presentation: 12/29 08:31 Chief complaint: Patient states: L ankle pain after stepping wrong 3 days ago. ss Coronavirus screen: Client denies travel out of the [place] in the last 14 days. Ebola Screen: Patient denies exposure to infectious person. Patient denies travel to an Ebola-affected area in the 21 days before illness onset. Initial Sepsis Screen: Does the patient meet any 2 criteria? No. Patient's initial sepsis screen is negative. Does the patient have a suspected source of infection? No. Patient's initial sepsis screen is negative. Risk Assessment: Do you want to hurt yourself or someone else? Patient reports no desire to harm self or others. Onset of symptoms was December 26, 2020. 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 - Social history:: Smoking status: Patient denies any tobacco usage or history of. - Family history:: not pertinent. - Hospitalizations: : No recent hospitalization is reported. Screenin:45 Abuse screen: Denies threats or abuse. Denies injuries from another. Nutritional ss screening: No deficits noted. Tuberculosis screening: No symptoms or risk factors identified. Never had TB. Fall Risk None identified. Assessment: 08:45 General: Appears in no apparent distress. comfortable, Behavior is calm, cooperative, ss Denies fever, feeling ill, fatigue, chills. Pain: Complains of pain in left lateral ankle Pain currently is 7 out of 10 on a pain scale. Quality of pain is described as aching, tender, Pain began 2-3 days ago. Is continuous, Aggravated by increased activity, weight bearing. Neuro: Level of Consciousness is awake, alert, obeys commands, Oriented to person, place, time, situation, Canine Service Instructor Trainer are equal bilaterally. Cardiovascular: Capillary refill < 3 seconds is brisk in bilateral fingers toes. Respiratory: Airway is patent Respiratory effort is even, unlabored, Respiratory pattern is regular, symmetrical. GI: Patient currently denies diarrhea, nausea, vomiting. EENT: Nares are clear Oral mucosa is moist. Throat is clear. Derm: Skin is intact, is healthy with good turgor, Skin is dry, Skin is pink, warm \T\ dry. normal. Musculoskeletal: Range of motion: intact in all extremities, Swelling absent. 09:55 Reassessment: Patient appears in no apparent distress at this time. Patient and/or ss family updated on plan of care and expected duration. Pain level reassessed. Patient is alert, oriented x 3, equal unlabored respirations, skin warm/dry/pink. Vital Signs: 08:31 BP 115 / 72; Pulse 61; Resp 14; Temp 98.2(TE); Pulse Ox 99% on R/A; Weight 108.86 kg; ss Height 5 ft. 5 in. (165.10 cm); Pain 7/10; 08:31 Body Mass Index 39.94 (108.86 kg, 165.10 cm) ED Course: 08:27 Patient arrived in ED. ds1 08:32 Triage completed. ss 08:32 Arm band placed on right wrist. ss 08:41 Felisa Domingo, OWEN is Primary Nurse. ss 08:42 Luciano Batista MD is Attending Physician. rn 08:45 Patient has correct armband on for positive identification. Bed in low position. Pulse ss ox on. NIBP on. Warm blanket given. 09:20 Ankle Left 3 View XRAY In Process Unspecified. EDMS 09:55 No provider procedures requiring assistance completed. Patient did not have IV access ss during this emergency room visit. Administered Medications: No medications were administered Outcome: 09:40 Discharge ordered by . rn 09:55 Discharged to home ambulatory. ss 09:55 Condition: good 09:55 Discharge instructions given to patient, Instructed on discharge instructions, follow up and referral plans. Demonstrated understanding of instructions, follow-up care. 09:55 Patient left the ED. ss Signatures: Dispatcher [employer] EDMD HayesXochitl ornelas ds1 Batista, Luciano, MD MD rn Smirch, Felisa, RN RN ss
[2020-12-29 10:12] VITALS: BP 115/72; TEMP 98.2; O2SAT 99
== END 2020-12-29 09:55 | disposition home or self-care (01) ==
LOC: ER 08:23
DX: S93.402A Sprain of unspecified ligament of left ankle, initial encounter (principal); X50.1XXA Overexertion from prolonged static or awkward postures, initial encounter; Y93.9 Activity, unspecified; Y92.9 Unspecified place or not applicable; F41.9 Anxiety disorder, unspecified; Z88.0 Allergy status to penicillin
CPT/HCPCS: 99283

== ENCOUNTER 2021-06-24 08:39 | Emergency (ER) | payer OTHER ==
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
--- NOTE | 2021-06-24 09:31 | EDPHYS ---
Physician Documentation [facility] Name: Nicolasa Rose Age: 26 yrs Sex: Female : 1995 Arrival Date: 06/24/2021 Time: 08:40 Bed 18 Private MD: ED Physician Luciano Batista HPI: 06/24 09:27 This 26 yrs old Female presents to ER via Ambulatory with complaints of SOB - jr8 Covid Positive. 09:27 This is a 26-year-old female patient who presented to emergency room with increased jr8 shortness of breath. Patient was diagnosed with Covid approximately 4 days ago. Stated that she has had mild increase in shortness of breath particularly with exertion. Requested reevaluation to make sure she was stable.. 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 - Social history:: Smoking status: Patient denies any tobacco usage or history of. - Family history:: not pertinent. - Code Status:: Full code. ROS: 09:27 Constitutional: Negative for fever, chills, and weight loss. jr8 09:27 Cardiovascular: Negative for chest pain, palpitations, and edema, Abdomen/GI: Negative for abdominal pain, nausea, vomiting, diarrhea, and constipation. 09:27 Constitutional: 09:27 Respiratory: Positive for cough, dyspnea on exertion. 09:27 All other systems are negative. Exam: 09:27 Constitutional: This is a well developed, well nourished patient who is awake, alert, jr8 and in no acute distress. ENT: Nares patent. No nasal discharge, no septal abnormalities noted. Tympanic membranes are normal and external auditory canals are clear. Oropharynx with no redness, swelling, or masses, exudates, or evidence of obstruction, uvula midline. Mucous membranes moist. Cardiovascular: Regular rate and rhythm with a normal S1 and S2. No gallops, murmurs, or rubs. Normal PMI, no JVD. No pulse deficits. Respiratory: Lungs have equal breath sounds bilaterally, clear to auscultation and percussion. No rales, rhonchi or wheezes noted. No increased work of breathing, no retractions or nasal flaring. Abdomen/GI: Soft, non-tender, with normal bowel sounds. No distension or tympany. No guarding or rebound. No evidence of tenderness throughout. Skin: Warm, dry with normal turgor. Normal color with no rashes, no lesions, and no evidence of cellulitis. MS/ Extremity: Pulses equal, no cyanosis. Neurovascular intact. Full, normal range of motion. Neuro: Awake and alert, GCS 15, oriented to person, place, time, and situation. Cranial nerves II-XII grossly intact. Motor strength 5/5 in all extremities. Sensory grossly intact. Vital Signs: 08:49 BP 108 / 75; Pulse 97; Resp 17; Temp 97.3; Pulse Ox 99% ; Weight 108.86 kg (R); Height jl7 5 ft. 5 in. (165.10 cm) (R); Pain 2/10; 08:49 Body Mass Index 39.94 (108.86 kg, 165.10 cm) jl7 MDM: 08:58 Patient medically screened. jr8 09:27 Data reviewed: vital signs, nurses notes, and as a result, I will discharge patient. jr8 Data interpreted: Pulse oximetry: on room air is 99 %. Interpretation: normal. Counseling: I had a detailed discussion with the patient and/or guardian regarding: the historical points, exam findings, and any diagnostic results supporting the discharge/admit diagnosis, the need for outpatient follow up, a family practitioner, to return to the emergency department if symptoms worsen or persist or if there are any questions or concerns that arise at home. ED course: Discussed with patient that she is hemodynamically stable, afebrile and 99% on room air as far as her oxygenation. At this time would not start any steroid therapy. Patient does meet criteria based on her weight for Regeneron infusion. I had offered this to her but feels okay and declined at this time. Patient is aware that she can come back at any point time if she were to feel worse. Patient good with plan at this time.. Administered Medications: No medications were administered Disposition: 15:40 Co-signature as Attending Physician, Luciano Batista MD I agree with the assessment and rn plan of care. Attestation: The patient's history, exam findings, diagnostics, and a summary of any interventions or procedures was reviewed in detail with Rodrick SHUKLA. Disposition Summary: 06/24/21 09:31 Discharge Ordered Location: Home jr8 Problem: new jr8 Symptoms: have improved jr8 Condition: Stable jr8 Diagnosis - SARS-associated coronavirus as the cause of diseases classified elsewhere jr8 Followup: jr8 - With: Private Physician - When: 5 - 6 days - Reason: Recheck today's complaints, Continuance of care, Re-evaluation by your physician Discharge Instructions: - Discharge Summary Sheet jr8 - COVID-19 jr8 Forms: - Medication Reconciliation Form jr8 - Thank You Letter jr8 - Antibiotic Education jr8 - Prescription Opioid Use jr8 Signatures: Luciano Batista MD MD rn Roszak, Josh, PA PA jr8 Dio Moreno RN RN jl7 Galina Salomon kh1
--- NOTE | 2021-06-24 09:31 | ER ---
Nurse's Notes [facility] Name: Nicolasa Rose Age: 26 yrs Sex: Female : 1995 Arrival Date: 06/24/2021 Time: 08:40 Bed 18 Private MD: Diagnosis: SARS-associated coronavirus as the cause of diseases classified elsewhere Presentation: 06/24 08:49 Chief complaint: Patient states: Tested positive for covid on Jun 20 at [facility], jl7 reports increased SOB and bilateral ear pain x 2 days. Coronavirus screen: Vaccine status: Patient reports receiving the 2nd dose of the covid vaccine. Date June 04, 2021 JnJ Client reports previous positive COVID test result. Date of collection: June 20, 2021. Ebola Screen: No symptoms or risks identified at this time. Initial Sepsis Screen: Does the patient meet any 2 criteria? No. Patient's initial sepsis screen is negative. Does the patient have a suspected source of infection? No. Patient's initial sepsis screen is negative. Risk Assessment: Do you want to hurt yourself or someone else? Patient reports no desire to harm self or others. Onset of symptoms was June 20, 2021. 08:49 Method Of Arrival: Ambulatory [facility] 08:49 Acuity: ROSENDO 4 jl7 Triage Assessment: 08:51 General: Appears in no apparent distress. uncomfortable, Behavior is calm, cooperative, jl7 appropriate for age. Pain: Complains of pain in right ear and left ear Pain currently is 2 out of 10 on a pain scale. at worst was 9 out of 10 on a pain scale. 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 - Social history:: Smoking status: Patient denies any tobacco usage or history of. - Family history:: not pertinent. - Code Status:: Full code. Screenin:12 Abuse screen: Denies threats or abuse. Nutritional screening: No deficits noted. kh1 Tuberculosis screening: No symptoms or risk factors identified. Fall Risk None identified. Gait- Normal/Bed Rest/Wheelchair (0 pts). Assessment: 09:11 General: Appears in no apparent distress. comfortable, Behavior is calm, cooperative, kh1 appropriate for age. Pain: Complains of pain in right ear and left ear. 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 Gait is steady, Speech is normal. Cardiovascular: No deficits noted. Reports shortness of breath. Respiratory: No deficits noted. Airway is patent. Vital Signs: 08:49 BP 108 / 75; Pulse 97; Resp 17; Temp 97.3; Pulse Ox 99% ; Weight 108.86 kg (R); Height jl7 5 ft. 5 in. (165.10 cm) (R); Pain 2/10; 08:49 Body Mass Index 39.94 (108.86 kg, 165.10 cm) jl7 Vitals: 09:11 Cardiac Rhythm Assessment Regular Sinus rhythm. [facility] ED Course: 08:40 Patient arrived in ED. ds1 08:51 Triage completed. jl7 08:51 Arm band placed on right wrist. jl7 08:58 Rodrick Harding PA is PHCP. jr8 08:58 Luciano Batista MD is Attending Physician. jr8 09:11 Galina Salomon is Primary Nurse. kh1 09:12 Patient has correct armband on for positive identification. Bed in low position. Call [facility] light in reach. Side rails up X2. 09:13 No provider procedures requiring assistance completed. kh1 09:39 Patient did not have IV access during this emergency room visit. 1 Administered Medications: No medications were administered Outcome: 09:31 Discharge ordered by . jr8 09:39 Discharged to home ambulatory. kh1 09:39 Condition: stable 09:39 Discharge instructions given to patient, Instructed on discharge instructions, follow up and referral plans. Demonstrated understanding of instructions, follow-up care, Prescriptions given X 09:40 Patient left the ED. [facility] Signatures: Xochitl Hayes ds1 Rodrick Harding PA PA jr8 Dio Moreno RN RN jl7 Galina Salomon [facility]
[2021-06-24 09:55] VITALS: BP 108/75; TEMP 97.3; O2SAT 99
== END 2021-06-24 09:40 | disposition home or self-care (01) ==
LOC: ER 08:39
DX: U07.1 COVID-19 (principal); F41.8 Other specified anxiety disorders; Z88.0 Allergy status to penicillin; Z88.8 Allergy status to other drugs, medicaments and biological substances
CPT/HCPCS: 99282

== ENCOUNTER 2021-06-28 19:11 | Emergency (ER) | payer OTHER ==
--- NOTE | 2021-06-28 20:06 | ER ---
Nurse's Notes [facility] Name: Nicolasa Rose Age: 26 yrs Sex: Female : 1995 Arrival Date: 06/28/2021 Time: 19:22 Bed External Waiting Private MD: Diagnosis: Coronavirus infection, unspecified Presentation: 06/28 19:15 Method Of Arrival: EMS: [facility] dc2 19:15 Coronavirus screen: Client denies travel out of the [place] in the last 14 days. Client dc2 presents with at least one sign or symptom that may indicate coronavirus-19. Standard/surgical mask placed on the client. Client reports previous positive COVID test result. Date of collection: June 20, 2021. Ebola Screen: Patient denies exposure to infectious person. Patient denies travel to an Ebola-affected area in the 21 days before illness onset. No symptoms or risks identified at this time. 19:15 Initial Sepsis Screen: Does the patient meet any 2 criteria? No. Patient's initial dc2 sepsis screen is negative. 19:15 Initial Sepsis Screen: Does the patient meet any 2 criteria? No. Patient's initial dc2 sepsis screen is negative. 19:15 Acuity: ROSENDO 4 dc2 19:15 Risk Assessment: Do you want to hurt yourself or someone else? Patient reports no dc2 desire to harm self or others. 19:15 Initial Sepsis Screen: Does the patient have a suspected source of infection? No. dc2 Patient's initial sepsis screen is negative. 19:15 Onset of symptoms is unknown. dc2 19:23 Chief complaint: Patient states: Pt presents to ED with non stop dry productive cough dc2 with chest soreness from coughing so much. Reports being Dx with Covid on 06/20/2021. States feels like symptoms are the same except is coughing more . Pt reports compliance with all medications prescribed for her and is now out of the inhaler and tessalone pearles. Triage Assessment: 19:30 Pain: Denies pain. Complains of pain in Pt co generalized soreness all over from dc2 coughing so much. Denies specific pain. Quality of pain is described as aching. Historical: - Allergies: 19:29 Abilify; dc2 19:29 PENICILLINS; dc2 - Home Meds: 19:29 Fluoxetine Oral [Active]; Trazodone Oral [Active]; control [Active]; dc2 - PMHx: 19:29 Anxiety; Depression; dc2 - PSHx: 19:29 None; dc2 - Immunization history:: Adult Immunizations up to date, Client reports receiving the Jose Alberto \T\ Jose Alberto single-dose vaccine. Date received June 04, 2021 Vaccine Information Sheet provided. - Social history:: Smoking status: unknown. Screenin:58 Abuse screen: Denies threats or abuse. Denies injuries from another. Nutritional bs2 screening: No deficits noted. Tuberculosis screening: No symptoms or risk factors identified. Fall Risk None identified. Assessment: 19:58 General: Appears in no apparent distress. obese, well groomed, well developed, well bs2 nourished, Behavior is calm, cooperative, appropriate for age. Cardiovascular: Reports shortness of breath. Respiratory: Reports cough that is non-productive, pt is covid positive and has been on Tessalon pearls but has run out. Vital Signs: 19:15 BP 111 / 68; Pulse 79; Resp 20; Temp 98.4; Pulse Ox 98% on R/A; Weight 108.86 kg (R); dc2 Height 5 ft. 5 in. (165.10 cm) (R); 19:15 Body Mass Index 39.94 (108.86 kg, 165.10 cm) dc2 ED Course: 19:20 Arm band placed on left wrist. Patient Pt connected to BP, Pulse ox and 5leads. Pt dc2 instructed on need for urine at this time. 19:22 Patient arrived in ED. tt3 19:24 Yareli El FNP-C is PHCP. kb 19:24 Marcello Zapata MD is Attending Physician. kb 19:31 Triage completed. dc2 19:58 Calista Enamorado, RN is Primary Nurse. bs2 19:58 Patient has correct armband on for positive identification. Bed in low position. Call bs2 light in reach. Side rails up X 1. Pulse ox on. NIBP on. 20:00 No provider procedures requiring assistance completed. Patient did not have IV access bs2 during this emergency room visit. Administered Medications: No medications were administered Outcome: 20:05 Discharge ordered by . kb 22:37 Patient left the ED. bb Signatures: Yareli El FNP-C WEEKEND CAREGIVER-CkIdalia Mayorga RN RN bb Rigo Camargo tt3 Calista Enamorado RN RN bs2 Afua Medina RN RN dc2 Corrections: (The following items were deleted from the chart) :33 19:23 Chief complaint: Patient states: Pt presents to ED with non stop dry productive dc2 cough with chest soreness from coughing so much. Reports being Dx with Covid on 06/20/2021. States feels like symptoms are the same except is coughing more . Pt reports compliance with all medications prescribed for her. dc2 19:33 19:15 Coronavirus screen: Client denies travel out of the [place] in the last 14 days. dc2 Client presents with at least one sign or symptom that may indicate coronavirus-19. Standard/surgical mask placed on the client. Client reports previous positive COVID test result. Date of collection: June 20, 2021 dc2
--- NOTE | 2021-06-28 20:06 | EDPHYS ---
Physician Documentation [facility] Name: Nicolasa Rose Age: 26 yrs Sex: Female : 1995 Arrival Date: 06/28/2021 Time: 19: Bed External Waiting [facility] MD: ED Physician Marcello Zapata HPI: 06/28 20:04 This 26 yrs old Female presents to ER via EMS with complaints of Shortness Of kb Breath - COVID+. 20:04 The patient or guardian reports cough. Onset: The symptoms/episode began/occurred 8 kb day(s) ago. Severity of symptoms: At their worst the symptoms were moderate, in the emergency department the symptoms are unchanged. Modifying factors: The symptoms are alleviated by nothing, the symptoms are aggravated by nothing. Associated signs and symptoms: The patient has no apparent associated signs or symptoms. The patient has not experienced similar symptoms in the past. The patient has not recently seen a physician. Pt reports she was diagnosed with covid on 06/20/21. States she was given tesselon perles, but is still out and still having coughing fits. Historical: - Allergies: 19:29 Abilify; dc2 19:29 PENICILLINS; dc2 - Home Meds: 19:29 Fluoxetine Oral [Active]; Trazodone Oral [Active]; control [Active]; dc2 - PMHx: 19:29 Anxiety; Depression; dc2 - PSHx: 19:29 None; dc2 - Immunization history:: Adult Immunizations up to date, Client reports receiving the Jose Alberto \T\ Jose Alberto single-dose vaccine. Date received June 04, 2021 Vaccine Information Sheet provided. - Social history:: Smoking status: unknown. ROS: 20:04 Constitutional: Negative for fever, chills, and weight loss. kb 20:04 Respiratory: Positive for cough. 20:04 All other systems are negative. Exam: 20:04 Constitutional: This is a well developed, well nourished patient who is awake, alert, kb and in no acute distress. Head/Face: Normocephalic, atraumatic. Cardiovascular: Regular rate and rhythm with a normal S1 and S2. No gallops, murmurs, or rubs. No pulse deficits. Respiratory: Respirations even and unlabored. No increased work of breathing, no retractions or nasal flaring. Skin: Warm, dry with normal turgor. Normal color. MS/ Extremity: Pulses equal, no cyanosis. Neurovascular intact. Full, normal range of motion. Neuro: Awake and alert, GCS 15, oriented to person, place, time, and situation. Moves all extremities. Normal gait. Psych: Awake, alert, with orientation to person, place and time. Behavior, mood, and affect are within normal limits. Vital Signs: 19:15 BP 111 / 68; Pulse 79; Resp 20; Temp 98.4; Pulse Ox 98% on R/A; Weight 108.86 kg (R); dc2 Height 5 ft. 5 in. (165.10 cm) (R); 19:15 Body Mass Index 39.94 (108.86 kg, 165.10 cm) dc2 MDM: 19:24 Patient medically screened. kb 20:03 Data reviewed: vital signs, nurses notes. Data interpreted: Pulse oximetry: on room air kb is 98 %. Interpretation: normal. 20:05 Counseling: I had a detailed discussion with the patient and/or guardian regarding: the kb historical points, exam findings, and any diagnostic results supporting the discharge/admit diagnosis, the need for outpatient follow up, a family practitioner, to return to the emergency department if symptoms worsen or persist or if there are any questions or concerns that arise at home. Administered Medications: No medications were administered Disposition: 06/29 05:50 Co-signature as Attending Physician, Marcello Zapata MD. mh7 Disposition Summary: 06/28/21 20:05 Discharge Ordered Location: Home kb Condition: Stable kb Diagnosis - Coronavirus infection, unspecified kb Followup: kb - With: Emergency Department - When: As needed - Reason: Worsening of condition Followup: kb - With: Private Physician - When: 2 - 3 days - Reason: Recheck today's complaints, Continuance of care, Re-evaluation by your physician Discharge Instructions: - Discharge Summary Sheet kb - COVID-19 kb - COVID-19 Frequently Asked Questions kb - 10 Things You Can Do to Manage Your COVID-19 Symptoms at Home - [facility] [place] kb Forms: - Medication Reconciliation Form kb - Thank You Letter kb - Antibiotic Education kb - Prescription Opioid Use kb Prescriptions: - Tessalon Perles 100 mg Oral Capsule - take 1 capsule by ORAL route every 8 hours As needed; 15 capsule; Refills: 0, kb Product Selection Permitted Signatures: Yareli El, POLISHER APPRENTICE-C POLISHER APPRENTICE-Ckb Marcello Zapata MD MD mh7 Calista Enamorado RN RN bs2 Afua Medina, RN RN dc2
[2021-06-28 23:04] VITALS: BP 111/68; TEMP 98.4; O2SAT 98
== END 2021-06-28 22:37 | disposition home or self-care (01) ==
LOC: ER 19:11
DX: U07.1 COVID-19 (principal); F41.8 Other specified anxiety disorders; Z88.0 Allergy status to penicillin; Z88.8 Allergy status to other drugs, medicaments and biological substances
CPT/HCPCS: 99283

== ENCOUNTER 2022-01-12 18:01 | Emergency (ER) | payer OTHER ==
--- OUTSIDE RECORDS SUMMARY | 2022-01-12 18:12 | XMS REPORT | Continuity of Care Document ---
:1995 Author Organization [facility] Address [address] [place] [address] Care Team Providers Name Role Phone Bernardino LANGFORD Primary Care Physician Unavailable Bernardino Langford Attending Clinician Unavailable JACQUELINE Attending Clinician Unavailable PANCHO Attending Clinician Unavailable Raymond WEST Attending Clinician RAYMOND Attending Clinician Unavailable Ervin KIM Attending Clinician Leti Cheung MD Attending Clinician Opal CHANDRA, G Attending Clinician Jacqueline WEST Attending Clinician ARVIND Attending Clinician Unavailable Arvind RENEE Attending Clinician ERVIN Attending Clinician Unavailable Chi WEAVER, T Attending Clinician Unavailable Jemal WEST, F Attending Clinician Doctor Unassigned, Name Attending Clinician Unavailable BRIDGETTE Attending Clinician Unavailable Rahul Angelo MD Attending Clinician Provider, Urgent Care Attending Clinician Unavailable Linda WEST J Attending Clinician LINDACritsobal Attending Clinician Unavailable Efra Vazquez DO Attending Clinician Bridgette RENEE Attending Clinician Tesha Sr MD Attending Clinician Tesha SR Attending Clinician Unavailable LETI CHEUNG Attending Clinician Unavailable 2, Lab Attending Clinician Unavailable Ultrasound Attending Clinician Unavailable Lila Denny MD Attending Clinician Pob, Lab Main Attending Clinician Unavailable Alvaro KIM Attending Clinician Antonio KIM Attending Clinician Nurse, Women's Health Attending Clinician Unavailable ERICA WILLIAM Attending Clinician Unavailable LETI CHEUNG Admitting Clinician Unavailable Leti Cheung MD Admitting Clinician Antonio KIM Admitting Clinician Payers Payer Name Policy Type Policy Number Effective Date Expiration Date [facility] [id number] 2019 CHOICE MEDICAID 00:00:00 Problems Condition Condition Condition Status Onset Resolution Last Treating Co mments Source Name Details Category Date Date Treatment Clinician Date Oligohydra Oligohydra Disease Active 2020-0 U nivers mnios mnios 4-22 ity of 00:00: [place] 00 [facility] 38 weeks 38 weeks Disease Active 2020-0 Unive rs gestation gestation 4-22 ity of of of 00:00: [place] 00 [facility] Morbid Morbid Disease Active 2020-0 Univers obesity obesity 3-05 [place] of with body [place] body [place] mass index 00 Me dical of of Branch 40.0-49.9 40.0-49.9 Morbid Morbid Disease Active 2020-0 Univers obesity obesity 3-05 [place] of with body with body 00:[place] mass index 00 Me dical of of Branch 40.0-49.9 40.0-49.9 High-risk High-risk Disease Active 2020-0 Uni vers 1-27 ity of in third in third 00:00: [place] trimester trimester 00 [facility] 26 weeks 26 weeks Disease Active 2020-0 Unive rs gestation gestation 1-27 ity of of of 00:00: [place] 00 [facility] Postprandi Postprandi Disease Active 2018-10 U nivers al nausea al nausea 2-29 ity of 00:00: [place] [facility] Obesity Obesity Disease Active Univers (BMI (BMI 9-06 ity of 30-39.9) 30-39.9) 00:00: [facility] 40 weeks 40 weeks Disease Active Unive rs gestation gestation 6-23 ity of of of 00:00: [place] 00 [facility] Active Active Disease Active Univers labor at labor at 6-23 ity of term term 00:00: [place] 00 [facility] Liveborn Liveborn Disease Active Unive rs , of , of 6-23 it y of reyna reyna 00:[place] , , [place] dical born in born in [facility] by vaginal by vaginal delivery delivery Common Common Disease Active Overview: Univer s Discomfort Discomfort 3-28 Round it y of s of s of 00:00: ligament [place] 00 pain. [facility] History of History of Problem Resolve Univers back pain back pain HL7.CCDAR2 d ity of [place] [facility] History of History of Problem Resolve Univers depression depression HL7.CCDAR2 d ity of [place] [facility] Leg Leg Problem Active Univers swelling swelling HL7.CCDAR2 it y of [place] [facility] Acute Acute Problem Active Univers traumatic traumatic HL7.CCDAR2 ity of internal internal [place] derangemen derangemen Ph ysici t of left t of left ans knee, knee, initial initial encounter encounter Allergies, Adverse Reactions, Alerts Allergy Allergy Status Severity Reaction(s) Onset Inactive Treating Comm ents Source Name Type Date Date Clinician ARIPIPRA DRUG Active Rash 2014-10 Univers ZOLE INGREDI 2-31 ity of 00:00: [place] 00 [facility] PENICILL Drug Active Rash 2014-10 Univers INS Class 2-31 ity of 00:00: [place] 00 [facility] Aripipra Propensi Active Rash 2014-10 Univer s zole ty to 2-31 ity of adverse 00:00: [place] reaction 00 [facility] Penicill Propensi Active Rash 2014-10 Univer s ins ty to 2-31 ity of adverse 00:00: [place] reaction 00 [facility] Abilify drug Active Univers allergy [facility]y of [place] [facility] Penicill drug Active [facility]N Adverse Active Rash [facility] Abilify Adverse Active Rash [facility] Family History Family Member [...] Start Date Stop Date Quantity Comments Source ASSERTION 2019-05-19 University of 00:00:00 [place] [facility] History SDOH University o f Alcohol Frequency [place] [facility] ed[facility] History SDOH University o f Alcohol Std [place] [facility] Drinks Branch History SDVA University o f Alcohol Binge [place] [facility] al Branch Exposure to Yes [employer] of SARS-CoV-2 [facility] [place] [facility] (event) Branch Alcohol intake 2021-10-15 2021-10-15 Current drinker Unive rsity of 00:00:00 00:00:00 of alcohol [facility] [place] [facility] (finding) Branch Alcohol Comment 2021-10-15 2021-10-15 social Universit y of 00:00:00 00:00:00 [facility] [place] Tobacco use and 2021-04-12 2021-04-12 Never used Universit y of exposure 00:00:00 00:00:00 [facility] [place] Sex Assigned At [birth year] Universit y of 00:00:00 00:00:00 [facility] [place] Smoking Status Start Date Stop Date Source Never smoker [facility] Medications Ordered Filled Start Stop Current Ordering Indication Dosage Frequency Signature Comments Components Source Medication Medication Date Date Medication? Clinician (SIG) Name Name benzonatate Yes [id number] 100mg Take 1 Univers (TESSALON 1-06 capsule by itjimenez of PERLALEXANDRE) 100 00:00: mouth [place] mg capsule 00 every 8 Medica l (eight) Branch hours as needed for Cough. benzonatate Yes [id number] 100mg Take 1 Univers (TESSALON 1-06 capsule by ity of PERLES) 100 00:00: mouth [place] mg capsule 00 every 8 Medica l (eight) Branch hours as needed for Cough. benzonatate 2020-10 Yes [id number] 100mg Take 1 Univers (TESSALON 0-05 capsule by ity of PERLES) 100 00:00: mouth 3 [place] mg capsule 00 (three) Medica l times Branch daily as needed for Cough. benzonatate 2020-10 Yes [id number] 100mg Take 1 Univers (TESSALON 0-05 capsule by ity of PERLZooomr) 100 00:00: mouth 3 [place] mg capsule 00 (three) Medica l times Branch daily as needed for Cough. benzonatate 2020-10 Yes [id number] 100mg Take 1 Univers (TESSALON 0-05 capsule by ity of PERLZooomr) 100 00:00: mouth 3 [place] mg capsule 00 (three) Medica l times Branch daily as needed for Cough. benzonatate 2020-10 Yes [id number] 100mg Take 1 Univers (TESSALON 0-05 capsule by ity of PERLZooomr) 100 00:00: mouth 3 [place] mg capsule 00 (three) Medica l times Branch daily as needed for Cough. benzonatate 2020-10 Yes [id number] 100mg Take 1 Univers (TESSALON 0-05 capsule by ity of PERLZooomr) 100 00:00: mouth 3 [place] mg capsule 00 (three) Medica l times Branch daily as needed for Cough. benzonatate 2020-10 Yes [id number] 100mg Take 1 Univers (TESSALON 0-05 capsule by ity of PERLZooomr) 100 00:00: mouth 3 [place] mg capsule 00 (three) Medica l times Branch daily as needed for Cough. benzonatate 2020-10 Yes [id number] 100mg Take 1 Univers (TESSALON 0-05 capsule by ity of PERLZooomr) 100 00:00: mouth 3 [place] mg capsule 00 (three) Medica l times Branch daily as needed for Cough. azelastine Yes [id number] 1{spray Use 1 Univers 137 mcg 06-30 } [place] in ity of (0.1 %) 00:00: each [place] nasal spray 00 nostril 2 Med ical (two) Branch times daily. Use in each nostril as directed fluticasone Yes [id number] 1{spray Use 1 Univers propionate 06-30 } [place] in ity of 50 00:00: each [place] mcg/actuati 00 nostril Medic al on nasal daily. Branch spray azelastine Yes [id number] 1{spray Use 1 Univers 137 mcg 06-30 [id number] } [place] in ity of (0.1 %) 00:00: each [place] nasal spray 00 nostril 2 Med ical (two) Branch times daily. Use in each nostril as directed fluticasone 0 Yes [id number] 1{spray Use 1 Univers propionate 06-30 } [place] in ity of 50 00:00: each [place] mcg/actuati 00 nostril Medic al on nasal daily. Branch spray azelastine Yes [id number] 1{spray Use 1 Univers 137 mcg 06-30 } [place] in ity of (0.1 %) 00:00: each [place] nasal spray 00 nostril 2 Med ical (two) Branch times daily. Use in each nostril as directed fluticasone Yes [id number] 1{spray Use 1 Univers propionate 06-30 } [place] in ity of 50 00:00: each [place] mcg/actuati 00 nostril Medic al on nasal daily. Branch spray azelastine Yes [id number] 1{spray Use 1 Univers 137 mcg 06-30 } [place] in ity of (0.1 %) 00:00: each [place] nasal spray 00 nostril 2 Med ical (two) Branch times daily. Use in each nostril as directed fluticasone 0 Yes [id number] 1{spray Use 1 Univers propionate 06-30 } [place] in ity of 50 00:00: each [place] mcg/actuati 00 nostril Medic al on nasal daily. Branch spray azelastine Yes [id number] 1{spray Use 1 Univers 137 mcg 06-30 [id number] } [place] in ity of (0.1 %) 00:00: each [place] nasal spray 00 nostril 2 Med ical (two) Branch times daily. Use in each nostril as directed fluticasone 0 Yes [id number] 1{spray Use 1 Univers propionate 9 93869 } [place] in ity of 50 00:00: each [place] mcg/actuati 00 nostril Medic al on nasal daily. Branch spray azelastine Yes [id number] 1{spray Use 1 Univers 137 mcg 06-30 [id number] } [place] in ity of (0.1 %) 00:00: each [place] nasal spray 00 nostril 2 Med ical (two) Branch times daily. Use in each nostril as directed fluticasone 0 Yes [id number] 1{spray Use 1 Univers propionate 06-30 } [place] in ity of 50 00:00: each [place] mcg/actuati 00 nostril Medic al on nasal daily. Branch spray azelastine Yes [id number] 1{spray Use 1 Univers 137 mcg 06-30 } [place] in ity of (0.1 %) 00:00: each [place] nasal spray 00 nostril 2 Med ical (two) Branch times daily. Use in each nostril as directed fluticasone Yes [id number] 1{spray Use 1 Univers propionate 06-30 } [place] in ity of 50 00:00: each [place] mcg/actuati 00 nostril Medic al on nasal daily. Branch spray azelastine Yes [id number] 1{spray Use 1 Univers 137 mcg 06-30 } [place] in ity of (0.1 %) 00:00: each [place] nasal spray 00 nostril 2 Med ical (two) Branch times daily. Use in each nostril as directed fluticasone 0 Yes [id number] 1{spray Use 1 Univers propionate 06-30 } [place] in ity of 50 00:00: each [place] mcg/actuati 00 nostril Medic al on nasal daily. Branch spray azelastine Yes [id number] 1{spray Use 1 Univers 137 mcg 06-30 [id number] } [place] in ity of (0.1 %) 00:00: each [place] nasal spray 00 nostril 2 Med ical (two) Branch times daily. Use in each nostril as directed fluticasone 0 Yes [id number] 1{spray Use 1 Univers propionate 9 47436 } [place] in ity of 50 00:00: each [place] mcg/actuati 00 nostril Medic al on nasal daily. Branch spray azelastine Yes [id number] 1{spray Use 1 Univers 137 mcg 06-30 } [place] in ity of (0.1 %) 00:00: each [place] nasal spray 00 nostril 2 Med ical (two) Branch times daily. Use in each nostril as directed fluticasone Yes [id number] 1{spray Use 1 Univers propionate 06-30 } [place] in ity of 50 00:00: each [place] mcg/actuati 00 nostril Medic al on nasal daily. Branch spray azelastine Yes [id number] 1{spray Use 1 Univers 137 mcg 06-30 } [place] in ity of (0.1 %) 00:00: each [place] nasal spray 00 nostril 2 Med ical (two) Branch times daily. Use in each nostril as directed fluticasone Yes [id number] 1{spray Use 1 Univers propionate 06-30 } [place] in ity of 50 00:00: each [place] mcg/actuati 00 nostril Medic al on nasal daily. Branch spray methylPREDN 2020- No [id number] Take by [place] [id number] 06-30 mouth ity of mg tablets 00:00: 04:59 SEE-INSTRU [place] 00 :00 CTIONS for Medical 6 days. Branch follow package directions methylPREDN 0 2020- No [id number] Take by [place] [id number] 06-30 mouth ity of mg tablets 00:00: 04:59 SEE-INSTRU [place] 00 :00 CTIONS for Medical 6 days. Branch follow package directions methylPREDN 2020-0 2020- No [id number] Take by [facility] 4 06-30 mouth ity of mg tablets 00:00: 04:59 SEE-INSTRU [place] 00 :00 CTIONS for Medical 6 days. Branch follow package directions methylPREDN 2020-0 2020- No [id number] Take by [facility] 4 06-30 mouth ity of mg tablets 00:00: 04:59 SEE-INSTRU [place] 00 :00 CTIONS for Medical 6 days. Branch follow package directions ivermectin 2021-0 Yes Univers 3 mg tablet 9-20 ity of 00:00: [facility] Branch ivermectin Yes Univers 3 mg tablet 9-20 ity of 00:00: [facility] Branch ivermectin Yes Univers 3 mg tablet 9-20 ity of 00:00: [facility] Branch ivermectin Yes Univers 3 mg tablet 9-20 ity of 00:00: [facility] Branch ivermectin Yes Univers 3 mg tablet 9-20 ity of 00:00: [facility] Branch ivermectin Yes Univers 3 mg tablet 9-20 ity of 00:00: [facility] Branch ivermectin Yes Univers 3 mg tablet 9-20 ity of 00:00: [facility] ivermectin Yes Univers 3 mg tablet 9-20 ity of 00:00: [facility] ivermectin Yes Univers 3 mg tablet 9-20 ity of 00:00: [facility] ivermectin Yes Univers 3 mg tablet 9-20 ity of 00:00: [facility] ivermectin Yes Univers 3 mg tablet 9-20 ity of 00:00: [facility] benzonatate 2020- No 100mg 100 mg, U nivers (TESSALON 06-21 Oral, ity of PERLES) 22:00: 21:01 ONCE, 1 [place] capsule 100 00 :00 dose, On Medi johnny mg [facility] 06/21/21 at 1700, Routine albuterol 2020- No 6{puff} 6 Puff, U nivers (VENTOLIN) 06-21 Inhalation it y of inhaler 6 22:00: 21:04 , [place]CE, 1 [place] Puff 00 :00 dose, On Medical [facility] 06/21/21 at 1700, ARVIN benzonatate Yes [id number] 100mg Take 1 Univers 100 mg 9-12 capsule by ity of capsule 00:00: mouth 3 [place] 00 (three) Medical times Branch daily as needed for Cough. ondansetron Yes [id number] 4mg Take 1 Univers 4 mg 9-12 tablet by ity of disintegrat 00:00: mouth [place] ing tablet 00 every 8 Medica l (eight) Branch hours as needed for Nausea and Vomiting (N/V). benzonatate 2021-0 Yes [id number] 100mg Take 1 Univers 100 mg 9-12 capsule by ity of capsule 00:00: mouth 3 [place] 00 (three) Medical times Branch daily as needed for Cough. ondansetron 2020-0 Yes [id number] 4mg Take 1 Univers 4 mg 9-12 tablet by ity of disintegrat 00:00: mouth [place] ing tablet 00 every 8 Medica l (eight) Branch hours as needed for Nausea and Vomiting (N/V). benzonatate 2020-0 Yes [id number] 100mg Take 1 Univers 100 mg 9-12 capsule by ity of capsule 00:00: mouth 3 [place] 00 (three) Medical times Branch daily as needed for Cough. ondansetron 2020-0 Yes [id number] 4mg Take 1 Univers 4 mg 9-12 tablet by ity of disintegrat 00:00: mouth [place] ing tablet 00 every 8 Medica l (eight) Branch hours as needed for Nausea and Vomiting (N/V). benzonatate 2020-0 Yes [id number] 100mg Take 1 Univers 100 mg 9-12 capsule by ity of capsule 00:00: mouth 3 [place] 00 (three) Medical times Branch daily as needed for Cough. ondansetron 1-0 Yes [id number] 4mg Take 1 Univers 4 mg 9-12 tablet by ity of disintegrat 00:00: mouth [place] ing tablet 00 every 8 Medica l (eight) Branch hours as needed for Nausea and Vomiting (N/V). ondansetron 2021-0 Yes [id number] 4mg Take 1 Univers 4 mg 9-12 tablet by ity of disintegrat 00:00: mouth [place] ing tablet 00 every 8 Medica l (eight) Branch hours as needed for Nausea and Vomiting (N/V). ondansetron 2021-0 Yes [id number] 4mg Take 1 Univers 4 mg 9-12 tablet by ity of disintegrat 00:00: mouth [place] ing tablet 00 every 8 Medica l (eight) Branch hours as needed for Nausea and Vomiting (N/V). ondansetron 2021-0 Yes [id number] 4mg Take 1 Univers 4 mg 9-12 tablet by ity of disintegrat 00:00: mouth [place] ing tablet 00 every 8 Medica l (eight) Branch hours as needed for Nausea and Vomiting (N/V). ondansetron 2020-0 Yes [id number] 4mg Take 1 Univers 4 mg 9-12 tablet by ity of disintegrat 00:00: mouth [place] ing tablet 00 every 8 Medica l (eight) Branch hours as needed for Nausea and Vomiting (N/V). ondansetron 2020-0 Yes [id number] 4mg Take 1 Univers 4 mg 9-12 tablet by ity of disintegrat 00:00: mouth [place] ing tablet 00 every 8 Medica l (eight) Branch hours as needed for Nausea and Vomiting (N/V). ondansetron 2020-0 Yes [id number] 4mg Take 1 Univers 4 mg 9-12 tablet by ity of disintegrat 00:00: mouth [place] ing tablet 00 every 8 Medica l (eight) Branch hours as needed for Nausea and Vomiting (N/V). ondansetron 0 Yes [id number] 4mg Take 1 Univers 4 mg 9-12 tablet by ity of disintegrat 00:00: mouth [place] ing tablet 00 every 8 Medica l (eight) Branch hours as needed for Nausea and Vomiting (N/V). benzonatate 2020-0 Yes [id number] 100mg Take 1 Univers 100 mg 9-12 capsule by ity of capsule 00:00: mouth 3 [place] 00 (three) Medical times Branch daily as needed for Cough. ondansetron 2020-0 Yes [id number] 4mg Take 1 Univers 4 mg 9-12 tablet by ity of disintegrat 00:00: mouth [place] ing tablet 00 every 8 Medica l (eight) Branch hours as needed for Nausea and Vomiting (N/V). benzonatate 2020-0 Yes [id number] 100mg Take 1 Univers 100 mg 9-12 capsule by ity of capsule 00:00: mouth 3 [place] 00 (three) Medical times Branch daily as needed for Cough. ondansetron 2020-0 Yes [id number] 4mg Take 1 Univers 4 mg 9-12 tablet by ity of disintegrat 00:00: mouth [place] ing tablet 00 every 8 Medica l (eight) Branch hours as needed for Nausea and Vomiting (N/V). benzonatate 2020-0 2020- No [id number] 100mg Take 1 Univers 100 mg 9-12 10-05 capsule by ity of capsule 00:00: 00:00 mouth 3 [place] 00 :00 (three) Medical times Branch daily as needed for Cough. traZODone 2020-0 Yes TAKE ONE Univ ers 50 mg 9-08 (1) ity of tablet 00:00: TABLET(S) [place] 00 BY MOUTH Medical AT BEDTIME Branch NEEDED. traZODone 2020-0 Yes TAKE ONE Univ ers 50 mg 9-08 (1) ity of tablet 00:00: TABLET(S) [place] 00 BY MOUTH Medical AT BEDTIME Branch NEEDED. traZODone 2020-0 Yes TAKE ONE Univ ers 50 mg 9-08 (1) ity of tablet 00:00: TABLET(S) [place] 00 BY MOUTH Medical AT BEDTIME Branch NEEDED. traZODone 2020-0 Yes TAKE ONE Univ ers 50 mg 9-08 (1) ity of tablet 00:00: TABLET(S) [place] 00 BY MOUTH Medical AT BEDTIME Branch NEEDED. traZODone 2020-0 Yes TAKE ONE Univ ers 50 mg 9-08 (1) ity of tablet 00:00: TABLET(S) [place] 00 BY MOUTH Medical AT BEDTIME Branch NEEDED. traZODone 2020-0 Yes TAKE ONE Univ ers 50 mg 9-08 (1) ity of tablet 00:00: TABLET(S) [place] 00 BY MOUTH Medical AT BEDTIME Branch NEEDED. traZODone 2020-0 Yes TAKE ONE Univ ers 50 mg 9-08 (1) ity of tablet 00:00: TABLET(S) [place] 00 BY MOUTH Medical AT BEDTIME Branch NEEDED. traZODone 2020-0 Yes TAKE ONE Univ ers 50 mg 9-08 (1) ity of tablet 00:00: TABLET(S) [place] 00 BY MOUTH Medical AT BEDTIME Branch NEEDED. traZODone 2020-0 Yes TAKE ONE Univ ers 50 mg 9-08 (1) ity of tablet 00:00: TABLET(S) [place] 00 BY MOUTH Medical AT BEDTIME Branch NEEDED. traZODone 2020-0 Yes TAKE ONE Univ ers 50 mg 9-08 (1) ity of tablet 00:00: TABLET(S) [place] 00 BY MOUTH Medical AT BEDTIME Branch NEEDED. traZODone 2021-0 Yes TAKE ONE Univ ers 50 mg 06-17 (1) ity of tablet 00:00: TABLET(S) [place] 00 BY MOUTH Medical AT BEDTIME Branch NEEDED. lidocaine 2020- No [id number] 1mL Uni vers 1% (PF) 04-12 ity of (XYLOCAINE) 19:00: 17:56 [place] injection 1 00 :00 Medical mL Branch lidocaine 2020- No [id number] 1mL 1 mL, Un johnny 1% (PF) 04-12 Intramuscu ity o f (XYLOCAINE) 19:00: 17:56 lar, ONCE, [place] injection 1 00 :00 1 dose, Medic al mL [place] 04/12/21 Branch at 1400, Routine lidocaine 2020- No [id number] 1mL Uni vers 1% (PF) 04-12 ity of (XYLOCAINE) 19:00: 17:56 [place] injection 1 00 :00 Medical mL Branch lidocaine 2020- No [id number] 1mL 1 mL, Un johnny 1% (PF) 04-12 Intramuscu ity o f (XYLOCAINE) 19:00: 17:56 lar, ONCE, [place] injection 1 00 :00 1 dose, Medic al mL [place] 04/12/21 Branch at 1400, Routine cefTRIAXone 2020- No [id number] 500mg Univers (ROCEPHIN) 04-12 ity of injection 18:45: 17:55 [place] 500 mg 00 :00 Medical Branch cefTRIAXone 2020- No [id number] 500mg 500 mg, Univers (ROCEPHIN) 04-12 Intramuscu it y of injection 18:45: 17:55 [place], ONCE, [place] 500 mg 00 :00 1 dose, Medical [place] 04/12/21 Branch at 1345, ARVIN
Re ason for Anti-Infec tive: Empiric Therapy for Suspected Infection< br>Empiric Therapy Site: Pelvic
Duration of therapy: 72 hours cefTRIAXone 2020- No [id number] 500mg Univers (ROCEPHIN) 04-12 ity of injection 18:45: 17:55 [place] 500 mg 00 :00 Medical Branch cefTRIAXone 2020- No [id number] 500mg 500 mg, Univers (ROCEPHIN) 7- 07-04 Intramuscu it y of injection 18:45: 17:55 [place], ONCE, [place] 500 mg 00 :00 1 dose, Medical [place] 04/12/21 Branch at 1345, ARVIN
Re ason for Anti-Infec tive: Empiric Therapy for Suspected Infection< br>Empiric Therapy Site: Pelvic
Duration of therapy: 72 hours azithromyci 2020-0 Yes [id number] 4 tabs now Univers n 250 mg 7-04 and 4 tabs ity o f tablet 00:00: in [address] metoclopram 2020-0 Yes [id number] 1 tab Univers demetris HCl 10 7-04 every 4hr ity of mg tablet 00:00: as needed [place] 00 for nausea Medical Branch azithromyci 2020-0 Yes [id number] 4 tabs now Univers n 250 mg 7-04 and 4 tabs ity o f tablet 00:00: in 1 week [place] [address] Medical Branch metoclopram 2020-0 Yes [id number] 1 tab Univers demetris HCl 10 7-04 every 4hr ity of mg tablet 00:00: as needed [place] 00 for nausea Medical Branch azithromyci 2020-0 Yes [id number] 4 tabs now Univers n 250 mg 7-04 and 4 tabs ity o f tablet 00:00: in [address] metoclopram 2020-0 Yes [id number] 1 tab Univers demetris HCl 10 7-04 every 4hr ity of mg tablet 00:00: as needed [place] 00 for nausea Medical Branch azithromyci 2020-0 Yes [id number] tabs now Univers n 250 mg 7-04 and 4 tabs ity o f tablet 00:00: in [address] metoclopram 2020-0 Yes [id number] 1 tab Univers demetris HCl 10 7-04 every 4hr ity of mg tablet 00:00: as needed [place] 00 for nausea Medical Branch azithromyci 2020-0 Yes [id number] 4 tabs now Univers n 250 mg 7-04 and 4 tabs ity o f tablet 00:00: in [address] metoclopram 2021-0 Yes [id number] 1 tab Univers demetris HCl 10 7-04 every 4hr ity of mg tablet 00:00: as needed [place] 00 for nausea Medical Branch azithromyci 2021-0 Yes [id number] tabs now Univers n 250 mg 7-04 and 4 tabs ity o f tablet 00:00: in 1 week [place] [facility] metoclopram 2021-0 Yes [id number] 1 tab Univers demetris HCl 10 7-04 every 4hr ity of mg tablet 00:00: as needed [place] 00 for nausea Medical Branch azithromyci 2021-0 Yes [id number] tabs now Univers n 250 mg 7-04 and 4 tabs ity o f tablet 00:00: in 1 week [place] [address] Medical Branch metoclopram 2021-0 Yes [id number] 1 tab Univers demetris HCl 10 7-04 every 4hr ity of mg tablet 00:00: as needed [place] 00 for nausea Medical Branch azithromyci 2021-0 Yes [id number] 4 tabs now Univers n 250 mg 7-04 and 4 tabs ity o f tablet 00:00: in 1 week [place] [address] Medical Branch metoclopram 2021-0 Yes [id number] 1 tab Univers demetris HCl 10 7-04 every 4hr ity of mg tablet 00:00: as needed [place] 00 for nausea Medical Branch azithromyci 2021-0 Yes [id number] 4 tabs now Univers n 250 mg 7-04 and 4 tabs ity o f tablet 00:00: in 1 week [place] [address] Medical Branch metoclopram 2021-0 Yes [id number] 1 tab Univers demetris HCl 10 7-04 every 4hr ity of mg tablet 00:00: as needed [place] 00 for nausea Medical Branch azithromyci 2021-0 Yes [id number] tabs now [facility] n 250 mg 7-04 and 4 tabs ity o f tablet 00:00: in 1 week [place] [address] [facility] metoclopram 2021-0 Yes [id number] 1 tab [facility] demetris HCl 10 7-04 every 4hr ity of mg tablet 00:00: as needed [place] 00 for nausea [facility] azithromyci 2021-0 Yes [id number] tabs now [facility] n 250 mg 7-04 and 4 tabs ity o f tablet 00:00: in 1 week [place] [facility] metoclopram 2021-0 Yes [id number] 1 tab [facility] demetris HCl 10 7-04 every 4hr ity of mg tablet 00:00: as needed [place] 00 for nausea [facility] Branch azithromyci 2021-0 Yes [id number] tabs now [facility] n 250 mg 7-04 and 4 tabs ity o f tablet 00:00: in 1 week [place] [address] [facility] metoclopram 2021-0 Yes [id number] 1 tab [facility] demetris HCl 10 7-04 every 4hr ity of mg tablet 00:00: as needed [place] 00 for nausea [facility] Branch azithromyci 2021-0 Yes [id number] tabs now [facility] n 250 mg 7-04 and 4 tabs ity o f tablet 00:00: in 1 week [place] [address] [facility] metoclopram 2021-0 Yes [id number] 1 tab [facility] demetris HCl 10 7-04 every 4hr ity of mg tablet 00:00: as needed [place] 00 for nausea [facility] azithromyci 2021-0 Yes [id number] tabs now [facility] n 250 mg 7-04 and 4 tabs ity o f tablet 00:00: in 1 week [place] [address] [facility] metoclopram 2021-0 Yes [id number] 1 tab [facility] demetris HCl 10 7-04 every 4hr ity of mg tablet 00:00: as needed [place] 00 for nausea [facility] azithromyci 2021-0 Yes [id number] tabs now [facility] n 250 mg 7-04 and 4 tabs ity o f tablet 00:00: in 1 week [place] [facility] metoclopram 2021-0 Yes [id number] 1 tab [facility] demetris HCl 10 7-04 every 4hr ity of mg tablet 00:00: as needed [place] 00 for nausea [facility] azithromyci 2021-0 Yes [id number] tabs now [facility] 250 mg 7-04 and 4 tabs ity o f tablet 00:00: in 1 week [place] [address] [facility] metoclopram 2021-0 Yes [id number] 1 tab [facility] demetris HCl 10 7-04 every 4hr ity of mg tablet 00:00: as needed [place] 00 for nausea [facility] azithromyci 2021-0 Yes [id number] tabs now [facility] 250 mg 7-04 and 4 tabs ity o f tablet 00:00: in 1 week [place] 00 [facility] metoclopram 2020-0 Yes [id number] 1 tab [facility] demetris HCl 10 7-04 every 4hr ity of mg tablet 00:00: as needed [place] 00 for nausea [facility] Branch metroNIDAZO 2020-0 Yes [id number] 500mg Take 1 [facility] LE 500 mg 1-05 tablet by ity o f tablet 00:00: mouth [place] 00 every 12 Medical (twelve) Branch hours. metroNIDAZO 2020-0 Yes [id number] 500mg Take 1 [facility] LE 500 mg 1-05 tablet by ity o f tablet 00:00: mouth [place] 00 every 12 Medical (twelve) Branch hours. metroNIDAZO 2020-0 Yes [id number] 500mg Take 1 [facility] LE 500 mg 1-05 tablet by ity o f tablet 00:00: mouth [place] 00 every 12 Medical (twelve) Branch hours. metroNIDAZO Yes [id number] 500mg Take 1 [facility] LE 500 mg 1-05 tablet by ity o f tablet 00:00: mouth [place] 00 every 12 Medical (twelve) Branch hours. metroNIDAZO 0 Yes [id number] 500mg Take 1 [facility] LE 500 mg 1-05 tablet by ity o f tablet 00:00: mouth [place] 00 every 12 Medical (twelve) Branch hours. metroNIDAZO 0 Yes [id number] 500mg Take 1 [facility] LE 500 mg 1-05 tablet by ity o f tablet 00:00: mouth [place] 00 every 12 Medical (twelve) Branch hours. metroNIDAZO 2020-0 Yes [id number] 500mg Take 1 [facility] LE 500 mg 1-05 tablet by ity o f tablet 00:00: mouth [place] 00 every 12 Medical (twelve) Branch hours. metroNIDAZO 2020-0 Yes [id number] 500mg Take 1 [facility] LE 500 mg 1-05 tablet by ity o f tablet 00:00: mouth [place] 00 every 12 Medical (twelve) Branch hours. metroNIDAZO 2020-0 Yes [id number] 500mg Take 1 [facility] LE 500 mg 1-05 tablet by ity o f tablet 00:00: mouth [place] 00 every 12 Medical (twelve) Branch hours. metroNIDAZO 2020-0 Yes [id number] 500mg Take 1 [facility] LE 500 mg 1-05 tablet by ity o f tablet 00:00: mouth [place] 00 every 12 Medical (twelve) Branch hours. metroNIDAZO 2020-0 Yes [id number] 500mg Take 1 [facility] LE 500 mg 1-05 tablet by ity o f tablet 00:00: mouth [place] 00 every 12 Medical (twelve) Branch hours. metroNIDAZO 2020-0 Yes [id number] 500mg Take 1 [facility] LE 500 mg 1-05 tablet by ity o f tablet 00:00: mouth [place] 00 every 12 Medical (twelve) Branch hours. metroNIDAZO 2020-0 Yes [id number] 500mg Take 1 [facility] LE 500 mg 1-05 tablet by ity o f tablet 00:00: mouth [place] 00 every 12 Medical (twelve) Branch hours. metroNIDAZO 2020-0 Yes [id number] 500mg Take 1 [facility] LE 500 mg 1-05 tablet by ity o f tablet 00:00: mouth [place] 00 every 12 Medical (twelve) Branch hours. metroNIDAZO 2020-0 Yes [id number] 500mg Take 1 [facility] LE 500 mg 1-05 tablet by ity o f tablet 00:00: mouth [place] 00 every 12 Medical (twelve) Branch hours. metroNIDAZO 2020-0 Yes [id number] 500mg Take 1 [facility] LE 500 mg 1-05 tablet by ity o f tablet 00:00: mouth [place] 00 every 12 Medical (twelve) Branch hours. metroNIDAZO 2020-0 Yes [id number] 500mg Take 1 [facility] LE 500 mg 1-05 tablet by ity o f tablet 00:00: mouth [place] 00 every 12 Medical (twelve) Branch hours. metroNIDAZO 2020-0 Yes [id number] 500mg Take 1 [facility] LE 500 mg 1-05 tablet by ity o f tablet 00:00: mouth [place] 00 every 12 Medical (twelve) Branch hours. metroNIDAZO 2020-0 Yes [id number] 500mg Take 1 [facility] LE 500 mg 1-05 tablet by ity o f tablet 00:00: mouth [place] 00 every 12 Medical (twelve) Branch hours. metroNIDAZO 2020-0 Yes [id number] 500mg Take 1 [facility] LE 500 mg 1-05 tablet by ity o f tablet 00:00: mouth [place] 00 every 12 Medical (twelve) Branch hours. fluoxetine 2019-10 Yes 20mg Take 20 mg U nivers HCl 2-22 by mouth ity [facility] (FLUOXETINE 16:47[place] [facility] Yes 1{tbl} Take 1 Un johnny Estradiol-E 2-22 tablet by ity of Estrad 16:47: mouth [place] (SIMPESSE) 55 daily. Medical 0.15 mg-30 Branch mcg (84)/10 mcg (7) per tablet fluoxetine 2019-10 Yes 20mg Take 20 mg U nivers HCl 2-22 by mouth ity of (FLUOXETINE 16:47[place]. [place] [facility] Yes 1{tbl} Take 1 Un [facility] Estradiol-E 2-22 tablet by ity of Estrad 16:47: mouth [place] (SIMPESSE) 55 daily. Medical 0.15 mg-30 Branch mcg (84)/10 mcg (7) per tablet fluoxetine 2019-10 Yes 20mg Take 20 mg U nivers HCl 2-22 by mouth ity of (FLUOXETINE 16:47[place] [facility] Yes 1{tbl} Take 1 Un [facility]ny Estradiol-E 2-22 tablet by ity of Estrad 16:47: mouth [place] (SIMPESSE) 55 daily. Medical 0.15 mg-30 Branch mcg (84)/10 mcg (7) per tablet fluoxetine 2019-10 Yes 20mg Take 20 mg U nivers HCl 2-22 by mouth ity of (FLUOXETINE 16:47: [place]. [place] [facility] Yes 1{tbl} Take 1 Un [facility] Estradiol-E 2-22 tablet by ity of Estrad 16:47: mouth [place] (SIMPESSE) 55 daily. Medical 0.15 mg-30 Branch mcg (84)/10 mcg (7) per tablet fluoxetine 2019-10 Yes 20mg Take 20 mg U nivers HCl 2-22 by mouth ity of (FLUOXETINE 16:47: [place]. [place] [facility] Yes 1{tbl} Take 1 Un [facility] Estradiol-E 2-22 tablet by ity of Estrad 16:47: mouth [place] (SIMPESSE) 55 daily. Medical 0.15 mg-30 Branch mcg (84)/10 mcg (7) per tablet fluoxetine 2019-10 Yes 20mg Take 20 mg U nivers HCl 2-22 by mouth ity of (FLUOXETINE 16:47: [place]. [place] [facility] 1{tbl} Take 1 Un [facility] Estradiol-E 2-22 tablet by ity of Estrad 16:47: mouth [place] (SIMPESSE) 55 daily. Medical 0.15 mg-30 Branch mcg (84)/10 mcg (7) per tablet fluoxetine 2019-10 Yes 20mg Take 20 mg U nivers HCl 2-22 by mouth ity of (FLUOXETINE 16:47: [place]. [place] [facility] Yes 1{tbl} Take 1 [facility] Estradiol-E 2-22 tablet by ity of Estrad 16:47: mouth [place] (SIMPESSE) 55 daily. Medical 0.15 mg-30 Branch mcg (84)/10 mcg (7) per tablet fluoxetine 2019-10 Yes 20mg Take 20 mg U nivers HCl 2-22 by mouth ity of (FLUOXETINE 16:47: [place]. [place] [facility] Yes 1{tbl} Take 1 [facility] Estradiol-E 2-22 tablet by ity of Estrad 16:47: mouth [place] (SIMPESSE) 55 daily. Medical 0.15 mg-30 Branch mcg (84)/10 mcg (7) per tablet fluoxetine 2019-10 Yes 20mg Take 20 mg U nivers HCl 2-22 by mouth ity of (FLUOXETINE 16:47: [place]. [place] [facility] Yes 1{tbl} Take 1 [facility] Estradiol-E 2-22 tablet by ity of Estrad 16:47: mouth [place] (SIMPESSE) 55 daily. Medical 0.15 mg-30 Branch mcg (84)/10 mcg (7) per tablet fluoxetine 2019-10 Yes 20mg Take 20 mg U nivers HCl 2-22 by mouth ity of (FLUOXETINE 16:47: [place]. [place] [facility] Yes 1{tbl} Take 1 [facility] Estradiol-E 2-22 tablet by ity of Estrad 16:47: mouth [place] (SIMPESSE) 55 daily. Medical 0.15 mg-30 Branch mcg (84)/10 mcg (7) per tablet fluoxetine 2019-10 Yes 20mg Take 20 mg U nivers HCl 2-22 by mouth ity of (FLUOXETINE 16:47: daily. [place] 55 Medical [place] [facility]&E 2019-10 Yes 1{tbl} Take 1 Un [facility]ny Estradiol-E 2-22 tablet by ity of Estrad 16:47: mouth [place] (SIMPESSE) 55 daily. Medical 0.15 mg-30 Branch mcg (84)/10 mcg (7) per tablet fluoxetine 2019-10 Yes 20mg Take 20 mg U nivers HCl 2-22 by mouth ity of (FLUOXETINE 16:47: [place]. [place] [facility] Yes 1{tbl} Take 1 [facility] Estradiol-E 2-22 tablet by ity of Estrad 16:47: mouth [place] (SIMPESSE) 55 daily. Medical 0.15 mg-30 Branch mcg (84)/10 mcg (7) per tablet fluoxetine 2019-10 Yes 20mg Take 20 mg U nivers HCl 2-22 by mouth ity of (FLUOXETINE 16:47: [place]. [place] [facility] Yes 1{tbl} Take 1 [facility] Estradiol-E 2-22 tablet by ity of Estrad 16:47: mouth [place] (SIMPESSE) 55 daily. Medical 0.15 mg-30 Branch mcg (84)/10 mcg (7) per tablet fluoxetine 2019-10 Yes 20mg Take 20 mg U nivers HCl 2-22 by mouth ity of (FLUOXETINE 10:47: daily. [place] 55 Medical [place] [facility]&E 2019-10 Yes 1{tbl} Take 1 Un [facility] Estradiol-E 2-22 tablet by ity of Estrad 10:47: mouth [place] (SIMPESSE) 55 daily. Medical 0.15 mg-30 Branch mcg (84)/10 mcg (7) per tablet fluoxetine 2019-10 Yes 20mg Take 20 mg U nivers HCl 2-22 by mouth ity of (FLUOXETINE 10:47: daily. [place] 55 Medical [facility]&E 2019-10 Yes 1{tbl} Take 1 Un [facility]ny Estradiol-E 2-22 tablet by ity of Estrad 10:47: mouth [place] (SIMPESSE) 55 daily. Medical 0.15 mg-30 Branch mcg (84)/10 mcg (7) per tablet fluoxetine 2019-10 Yes 20mg Take 20 mg U nivers HCl 2-22 by mouth ity of (FLUOXETINE 10:47: daily. [place] [facility] Yes 1{tbl} Take 1 [facility] Estradiol-E 2-22 tablet by ity of Estrad 10:47: mouth [place] (SIMPESSE) 55 daily. Medical 0.15 mg-30 Branch mcg (84)/10 mcg (7) per tablet fluoxetine 2019-10 Yes 20mg Take 20 mg U nivers HCl 2-22 by mouth ity of (FLUOXETINE 10:47: [place]. [place] 55 [facility]&E 2019-10 Yes 1{tbl} Take 1 Un [facility]ny Estradiol-E 2-22 tablet by ity of Estrad 10:47: mouth [place] (SIMPESSE) 55 daily. Medical 0.15 mg-30 Branch mcg (84)/10 mcg (7) per tablet fluoxetine 2019-10 Yes 20mg Take 20 mg U nivers HCl 2-22 by mouth ity of (FLUOXETINE 10:47: [place]. [place] 55 [facility]&E 2019-10 Yes 1{tbl} Take 1 Un [facility] Estradiol-E 2-22 tablet by ity of Estrad 10:47: mouth [place] (SIMPESSE) 55 daily. Medical 0.15 mg-30 Branch mcg (84)/10 mcg (7) per tablet fluoxetine 2019-10 Yes 20mg Take 20 mg U nivers HCl 2-22 by mouth ity of (FLUOXETINE 10:47: daily. [place] [facility] Yes 1{tbl} Take 1 [facility] [place] Estradiol-E 2-22 tablet by ity of Estrad 10:47: mouth [place] (SIMPESSE) 55 daily. Medical 0.15 mg-30 Branch mcg (84)/10 mcg (7) per tablet fluoxetine 2019-10 Yes 20mg Take 20 mg U nivers HCl 2-22 by mouth ity of (FLUOXETINE 10:47: daily. [place] 55 Medical [place] [facility]&E 2019-10 Yes 1{tbl} Take 1 Un [facility] Estradiol-E 2-22 tablet by ity of Estrad 10:47: mouth [place] (SIMPESSE) 55 daily. Medical 0.15 mg-30 Branch mcg (84)/10 mcg (7) per tablet fluoxetine 2019-10 Yes 20mg Take 20 mg U nivers HCl 2-22 by mouth ity of (FLUOXETINE 10:47: daily. [place] 55 Medical [place] [facility]&E 2019-10 Yes 1{tbl} Take 1 [facility] Estradiol-E 2-22 tablet by ity of Estrad 10:47: mouth [place] (SIMPESSE) 55 daily. Medical 0.15 mg-30 Branch mcg (84)/10 mcg (7) per tablet fluoxetine 2019-10 Yes 20mg Take 20 mg U nivers HCl 2-22 by mouth ity of (FLUOXETINE 10:47: daily. [place] 55 Medical [place] [facility]&E 2019-10 Yes 1{tbl} Take 1 [facility] Estradiol-E 2-22 tablet by ity of Estrad 10:47: mouth [place] (SIMPESSE) 55 daily. Medical 0.15 mg-30 Branch mcg (84)/10 mcg (7) per tablet fluoxetine 2019-10 Yes 20mg Take 20 mg U nivers HCl 2-22 by mouth ity of (FLUOXETINE 10:47: daily. [place] [facility] Yes 1{tbl} Take 1 [facility] [place] Estradiol-E 2-22 tablet by ity of Estrad 10:47: mouth [place] (SIMPESSE) 55 daily. Medical 0.15 mg-30 Branch mcg (84)/10 mcg (7) per tablet fluoxetine 2019-10 Yes 20mg Take 20 mg U nivers HCl 2-22 by mouth ity of (FLUOXETINE 10:47: daily. [place] 55 Medical [place] [facility]&E 2019-10 Yes 1{tbl} Take 1 [place] [facility] [...] 10:47: daily. [place] 55 Medical [place] [facility]est&E 2019-10 Yes 1{tbl} Take 1 Un [facility]ny Estradiol-E 2-22 tablet by ity of Estrad 10:47: mouth [place] (SIMPESSE) 55 daily. Medical 0.15 mg-30 Branch mcg (84)/10 mcg (7) per tablet fluoxetine Yes Take by Uni vers HCl 9-02 mouth. ity of (FLUOXETINE 15:42: [place] ORAL) 14 [facility] Branch fluoxetine Yes Take by Uni vers HCl 9-02 mouth. ity of (FLUOXETINE 15:42: [place] ORAL) 14 [facility] Branch fluoxetine 0 Yes Take by Uni vers HCl 9-02 mouth. ity of (FLUOXETINE 15:42: [place] ORAL) 14 [facility] Branch fluoxetine Yes Take by Uni vers HCl 9-02 mouth. ity of (FLUOXETINE 15:42: [place] ORAL) 14 [facility] Branch fluoxetine Yes Take by Uni vers HCl 9-02 mouth. ity of (FLUOXETINE 15:42: [place] ORAL) 14 [facility] Branch fluoxetine 0 Yes Take by Uni vers HCl 9-02 mouth. ity of (FLUOXETINE 15:42: [place] ORAL) 14 [facility] Branch fluoxetine 0 Yes Take by Uni vers HCl 9-02 mouth. ity of (FLUOXETINE 15:42: [place] ORAL) 14 [facility] Branch busPIRone 5 2019-0 Yes [id number] 5mg Take 1 [facility] mg tablet 6-18 tablet by ity o f 00:00: mouth 2 [place] 00 (two) Medical times Branch daily. busPIRone 5 Yes [id number] 5mg Take 1 [facility] mg tablet 6-18 tablet by ity o f 00:00: mouth (two) Medical times Branch daily. busPIRone 5 2020-0 Yes [id number] 5mg Take 1 [facility] mg tablet 6-18 tablet by ity o f 00:00: mouth (two) Medical times Branch daily. busPIRone 5 2020-0 Yes [id number] 5mg Take 1 [facility] mg tablet 6-18 tablet by ity o f 00:00: mouth (two) Medical times Branch daily. busPIRone 5 2020-0 Yes [id number] 5mg Take 1 [facility] mg tablet 6-18 tablet by ity o f 00:00: mouth (two) Medical times Branch daily. busPIRone 5 2020-0 Yes [id number] 5mg Take 1 [facility] mg tablet 6-18 tablet by ity o f 00:00: mouth (two) Medical times Branch daily. busPIRone 5 2020-0 Yes [id number] 5mg Take 1 [facility] mg tablet 6-18 tablet by ity o f 00:00: mouth (two) Medical times Branch daily. busPIRone 5 2020-0 Yes [id number] 5mg Take 1 [facility] mg tablet 6-18 tablet by ity o f 00:00: mouth (two) Medical times Branch daily. busPIRone 5 2020-0 Yes [id number] 5mg Take 1 [facility] mg tablet 6-18 tablet by ity o f 00:00: mouth (two) Medical times Branch daily. busPIRone 5 2020-0 Yes [id number] 5mg Take 1 [facility] mg tablet 6-18 tablet by ity o f 00:00: mouth (two) Medical times Branch daily. busPIRone 5 2020-0 Yes [id number] 5mg Take 1 [facility] mg tablet 6-18 tablet by ity o f 00:00: mouth (two) Medical times Branch daily. busPIRone 5 2020-0 Yes [id number] 5mg Take 1 [facility] mg tablet 6-18 tablet by ity o f 00:00: mouth (two) Medical times Branch daily. busPIRone 5 2020-0 Yes [id number] 5mg Take 1 [facility] mg tablet 6-18 tablet by ity o f 00:00: mouth (two) Medical times Branch daily. busPIRone 5 2020-0 Yes [id number] 5mg Take 1 [facility] mg tablet 6-18 tablet by ity o f 00:00: mouth (two) Medical times Branch daily. busPIRone 5 2020-0 Yes [id number] 5mg Take 1 [facility] mg tablet 6-18 tablet by ity o f 00:00: mouth (two) Medical times Branch daily. busPIRone 5 2020-0 Yes [id number] 5mg Take 1 [facility] mg tablet 6-18 tablet by ity o f 00:00: mouth (two) Medical times Branch daily. busPIRone 5 2020-0 Yes [id number] 5mg Take 1 [facility] mg tablet 6-18 tablet by ity o f 00:00: mouth (two) Medical times Branch daily. busPIRone 5 2020-0 Yes [id number] 5mg Take 1 [facility] mg tablet 6-18 tablet by ity o f 00:00: mouth (two) Medical times Branch daily. busPIRone 5 2020-0 Yes [id number] 5mg Take 1 [facility] mg tablet 6-18 tablet by ity o f 00:00: mouth (two) Medical times Branch daily. busPIRone 5 2020-0 Yes [id number] 5mg Take 1 [facility] mg tablet 6-18 tablet by ity o f 00:00: mouth (two) Medical times Branch daily. busPIRone 5 2020-0 Yes [id number] 5mg Take 1 [facility] mg tablet 6-18 tablet by ity o f 00:00: mouth (two) Medical times Branch daily. busPIRone 5 2020-0 Yes [id number] 5mg Take 1 [facility] mg tablet 6-18 tablet by ity o f 00:00: mouth (two) Medical times Branch daily. busPIRone 5 2020-0 Yes [id number] 5mg Take 1 [facility] mg tablet 6-18 tablet by ity o f 00:00: mouth (two) Medical times Branch daily. busPIRone 5 2020-0 Yes [id number] 5mg Take 1 [facility] mg tablet 6-18 tablet by ity o f 00:00: mouth (two) Medical times Branch daily. busPIRone 5 2020-0 Yes [id number] 5mg Take 1 [facility] mg tablet 6-18 tablet by ity o f 00:00: mouth (two) Medical times Branch daily. busPIRone 5 2020-0 Yes [id number] 5mg Take 1 [facility] mg tablet 6-18 tablet by ity o f 00:00: mouth (two) Medical times Branch daily. busPIRone 5 2020-0 Yes [id number] 5mg Take 1 [facility] mg tablet 6-18 tablet by ity o f 00:00: mouth (two) Medical times Branch daily. busPIRone 5 2020-0 Yes [id number] 5mg Take 1 [facility] mg tablet 6-18 tablet by ity o f 00:00: mouth (two) Medical times Branch daily. busPIRone 5 2020-0 Yes [id number] 5mg Take 1 [facility] mg tablet 6-18 tablet by ity o f 00:00: mouth (two) Medical times Branch daily. busPIRone 5 2020-0 Yes [id number] 5mg Take 1 [facility] mg tablet 6-18 tablet by ity o f 00:00: mouth (two) Medical times Branch daily. busPIRone 5 2020-0 Yes [id number] 5mg Take 1 [facility] mg tablet 6-18 tablet by ity o f 00:00: mouth (two) Medical times Branch daily. busPIRone 5 2020-0 Yes [id number] 5mg Take 1 [facility] mg tablet 6-18 tablet by ity o f 00:00: mouth (two) Medical times Branch daily. busPIRone 5 2020-0 Yes [id number] 5mg Take 1 [facility] mg tablet 6-18 tablet by ity o f 00:00: mouth (two) Medical times Branch daily. busPIRone 5 2020-0 Yes [id number] 5mg Take 1 [facility] mg tablet 6-18 tablet by ity o f 00:00: mouth (two) Medical times Branch daily. busPIRone 5 2020-0 Yes [id number] 5mg Take 1 [facility] mg tablet 6-18 tablet by ity o f 00:00: mouth (two) Medical times Branch daily. busPIRone 5 2020-0 Yes [id number] 5mg Take 1 [facility] mg tablet 6-18 tablet by ity o f 00:00: mouth 2 [place] 00 (two) Medical times [place] daily. NUVARING 2020-0 Yes [id number] 1{each} Insert 1 [facility] 0.12-0.015 5-22 Each into ity of mg/24 hr 00:00: vagina [place] vaginal 00 once every Medica l insert month. Branch Insert vaginally and leave in place for 3 consecutiv e weeks, then remove for 1 week. NUVARING 2020-0 Yes [id number] 1{each} Insert 1 [facility] 0.12-0.015 5-22 Each into ity of mg/24 hr 00:00: vagina [place] vaginal 00 once every Medica l insert month. Branch Insert vaginally and leave in place for 3 consecutiv e weeks, then remove for 1 week. NUVARING 2020-0 Yes [id number] 1{each} Insert 1 [facility] 0.12-0.015 5-22 Each into ity of mg/24 hr 00:00: vagina [place] vaginal 00 once every Medica l insert month. Branch Insert vaginally and leave in place for 3 consecutiv e weeks, then remove for 1 week. NUVARING 2020-0 Yes [id number] 1{each} Insert 1 [facility] 0.12-0.015 5-22 Each into ity of mg/24 hr 00:00: vagina [place] vaginal 00 once every Medica l insert month. Branch Insert vaginally and leave in place for 3 consecutiv e weeks, then remove for 1 week. NUVARING 2020-0 Yes [id number] 1{each} Insert 1 [facility] 0.12-0.015 5-22 Each into ity of mg/24 hr 00:00: vagina [place] vaginal 00 once every Medica l insert month. Branch Insert vaginally and leave in place for 3 consecutiv e weeks, then remove for 1 week. NUVARING 2020-0 Yes [id number] 1{each} Insert 1 [facility] 0.12-0.015 5-22 Each into ity of mg/24 hr 00:00: vagina [place] vaginal 00 once every Medica l insert month. Branch Insert vaginally and leave in place for 3 consecutiv e weeks, then remove for 1 week. NUVARING 2020-0 Yes [id number] 1{each} Insert 1 [facility] 0.12-0.015 5-22 Each into ity of mg/24 hr 00:00: vagina [place] vaginal 00 once every Medica l insert month. Branch Insert vaginally and leave in place for 3 consecutiv e weeks, then remove for 1 week. NUVARING 2019-0 Yes [id number] 1{each} Insert 1 [facility] 0.12-0.015 5-22 Each into ity of mg/24 hr 00:00: vagina [place] vaginal 00 once every Medica l insert month. Branch Insert vaginally and leave in place for 3 consecutiv e weeks, then remove for 1 week. NUVARING 2019-0 Yes [id number] 1{each} Insert 1 [facility] 0.12-0.015 5-22 Each into ity of mg/24 hr 00:00: vagina [place] vaginal 00 once every Medica l insert month. Branch Insert vaginally and leave in place for 3 consecutiv e weeks, then remove for 1 week. NUVARING 2019-0 Yes [id number] 1{each} Insert 1 [facility] 0.12-0.015 5-22 Each into ity of mg/24 hr 00:00: vagina [place] vaginal 00 once every Medica l insert month. Branch Insert vaginally and leave in place for 3 consecutiv e weeks, then remove for 1 week. NUVARING 2019-0 Yes [id number] 1{each} Insert 1 [facility] 0.12-0.015 5-22 Each into ity of mg/24 hr 00:00: vagina [place] vaginal 00 once every Medica l insert month. Branch Insert vaginally and leave in place for 3 consecutiv e weeks, then remove for 1 week. NUVARING 2019- No [id number] 1{each} Insert 1 [facility] 0.12-0.015 5-22 12-22 Each into ity of mg/24 hr 00:00: 00:00 vagina [place] vaginal 00 :00 once every Medica l insert month. Branch Insert vaginally and leave in place for 3 consecutiv e weeks, then remove for 1 week. NUVARING 2019- No [id number] 1{each} Insert 1 [facility] 0.12-0.015 5-22 12-22 Each into ity of mg/24 hr 00:00: 00:00 vagina [place] vaginal 00 :00 once every Medica l insert month. Branch Insert vaginally and leave in place for 3 consecutiv e weeks, then remove for 1 week. 2020-0 Yes [id number] 1{tbl} Take 1 U nivers vitamin 4-24 tablet by ity of w/FA tablet 00:00: mouth [place] 00 daily. Medical Branch docusate 2020-0 Yes [id number] 240mg Take 1 Un johnny calcium 240 4-24 capsule by it y of mg capsule 00:00: mouth once [place] 00 daily as Medical needed for Branch Constipati on. ferrous 2020-0 Yes [id number] 325mg Take 1 Uni vers sulfate 325 4-24 tablet by ity of mg (65 mg 00:00: mouth 2 [place] iron) 00 (two) Medical tablet times Branch daily. ibuprofen 2020-0 Yes [id number] 600mg Take 1 U nivers 600 mg 4-24 tablet by ity of tablet 00:00: mouth [place] 00 every 6 Medical (six) Branch hours as needed (Pain). Take with food or milk. 2019-0 Yes [id number] 1{tbl} Take 1 U nivers vitamin 4-24 tablet by ity of w/FA tablet 00:00: mouth [place] 00 daily. Medical Branch docusate 2020-0 Yes [id number] 240mg Take 1 Un johnny calcium 240 4-24 capsule by it y of mg capsule 00:00: mouth once [place] 00 daily as Medical needed for Branch Constipati on. ferrous 2020-0 Yes [id number] 325mg Take 1 Uni vers sulfate 325 4-24 tablet by ity of mg (65 mg 00:00: mouth 2 [place] iron) 00 (two) Medical tablet times Branch daily. ibuprofen 2020-0 Yes [id number] 600mg Take 1 U nivers 600 mg 4-24 tablet by ity of tablet 00:00: mouth [place] 00 every 6 Medical (six) Branch hours as needed (Pain). Take with food or milk. 2020-0 Yes [id number] 1{tbl} Take 1 U nivers vitamin 4-24 tablet by ity of w/FA tablet 00:00: mouth [place] 00 daily. Medical Branch docusate 2020-0 Yes [id number] 240mg Take 1 Un johnny calcium 240 4-24 capsule by it y of mg capsule 00:00: mouth once [place] 00 daily as Medical needed for Branch Constipati on. ferrous 2020-0 Yes [id number] 325mg Take 1 Uni vers sulfate 325 4-24 tablet by [facility] mg (65 mg 00:00: mouth 2 [place] iron) 00 (two) Medical tablet times Branch daily. ibuprofen 2020-0 Yes [id number] 600mg Take 1 [facility] nivers 600 mg 4-24 tablet by [facility] of tablet 00:00: mouth [place] 00 every 6 Medical (six) Branch hours as needed (Pain). Take with food or milk. 2020-0 Yes [id number] 1{tbl} Take 1 [facility] nivers vitamin 4-24 tablet by [facility] of w/FA tablet 00:00: mouth [place] 00 daily. Medical Branch docusate 2020-0 Yes [id number] 240mg Take 1 Un johnny calcium 240 4-24 capsule by it y of mg capsule 00:00: mouth once [place] 00 daily as Medical needed for Branch Constipati on. ferrous 2020-0 Yes [id number] 325mg Take 1 Uni vers sulfate 325 4-24 tablet by [facility] of mg (65 mg 00:00: mouth 2 [place] iron) 00 (two) Medical tablet times Branch daily. ibuprofen 2020-0 Yes [id number] 600mg Take 1 [facility] nivers 600 mg 4-24 tablet by [facility] of tablet 00:00: mouth [place] 00 every 6 Medical (six) Branch hours as needed (Pain). Take with food or milk. 2020-0 Yes [id number] 1{tbl} Take 1 [facility] nivers vitamin 4-24 tablet by [facility] of w/FA tablet 00:00: mouth [place] 00 daily. Medical Branch docusate 2020-0 Yes [id number] 240mg Take 1 Un johnny calcium 240 4-24 capsule by [facility] y of mg capsule 00:00: mouth once [place] 00 daily as Medical needed for Branch Constipati on. ferrous 2020-0 Yes [id number] 325mg Take 1 Uni vers sulfate 325 4-24 tablet by [facility] of mg (65 mg 00:00: mouth 2 [place] iron) 00 (two) Medical tablet times Branch daily. ibuprofen 2020-0 Yes [id number] 600mg Take 1 [facility] nivers 600 mg 4-24 tablet by [facility] of tablet 00:00: mouth [place] 00 every 6 Medical (six) Branch hours as needed (Pain). Take with food or milk. 2020-0 Yes [id number] 1{tbl} Take 1 [facility] nivers vitamin 4-24 tablet by [facility] of w/FA tablet 00:00: mouth [place] 00 daily. Medical Branch docusate 2020-0 Yes [id number] 240mg Take 1 Un johnny calcium 240 4-24 capsule by [facility] y of mg capsule 00:00: mouth once [place] 00 daily as Medical needed for Branch Constipati on. ferrous 2020-0 Yes [id number] 325mg Take 1 Uni vers sulfate 325 4-24 tablet by [facility] of mg (65 mg 00:00: mouth 2 [place] iron) 00 (two) Medical tablet times Branch daily. ibuprofen 2020-0 Yes [id number] 600mg Take 1 [facility] nivers 600 mg 4-24 tablet by [facility] of tablet 00:00: mouth [place] 00 every 6 Medical (six) Branch hours as needed (Pain). Take with food or milk. 2020-0 Yes [id number] 1{tbl} Take 1 [facility] nivers vitamin 4-24 tablet by [facility] of w/FA tablet 00:00: mouth [place] 00 daily. Medical Branch docusate 2020-0 Yes [id number] 240mg Take 1 Un johnny calcium 240 4-24 capsule by [facility] y of mg capsule 00:00: mouth once [place] 00 daily as Medical needed for Branch Constipati on. ferrous 2020-0 Yes [id number] 325mg Take 1 Uni vers sulfate 325 4-24 tablet by [facility] of mg (65 mg 00:00: mouth 2 [place] iron) 00 (two) Medical tablet times Branch daily. ibuprofen 2020-0 Yes [id number] 600mg Take 1 [facility] nivers 600 mg 4-24 tablet by [facility] of tablet 00:00: mouth [place] 00 every 6 Medical (six) Branch hours as needed (Pain). Take with food or milk. 2020-0 Yes [id number] 1{tbl} Take 1 [facility] nivers vitamin 4-24 tablet by [facility] of w/FA tablet 00:00: mouth [place] 00 daily. Medical Branch docusate 2020-0 Yes [id number] 240mg Take 1 Un johnny calcium 240 4-24 capsule by [facility] y of mg capsule 00:00: mouth once [place] 00 daily as Medical needed for Branch Constipati on. ferrous 2020-0 Yes [id number] 325mg Take 1 Uni vers sulfate 325 4-24 tablet by [facility] of mg (65 mg 00:00: mouth 2 [place] iron) 00 (two) Medical tablet times Branch daily. ibuprofen 2020-0 Yes [id number] 600mg Take 1 [facility] nivers 600 mg 4-24 tablet by [facility] of tablet 00:00: mouth [place] 00 every 6 Medical (six) Branch hours as needed (Pain). Take with food or milk. 2020-0 Yes [id number] 1{tbl} Take 1 [facility] nivers vitamin 4-24 tablet by [facility] of w/FA tablet 00:00: mouth [place] 00 daily. Medical Branch docusate 2020-0 Yes [id number] 240mg Take 1 Un johnny calcium 240 4-24 capsule by [facility] y of mg capsule 00:00: mouth once [place] 00 daily as Medical needed for Branch Constipati on. ferrous 2020-0 Yes [id number] 325mg Take 1 Uni vers sulfate 325 4-24 tablet by [facility] of mg (65 mg 00:00: mouth 2 [place] iron) 00 (two) Medical tablet times Branch daily. ibuprofen 2020-0 Yes [id number] 600mg Take 1 [facility] nivers 600 mg 4-24 tablet by [facility] of tablet 00:00: mouth [place] 00 every 6 Medical (six) Branch hours as needed (Pain). Take with food or milk. 2020-0 Yes [id number] 1{tbl} Take 1 [facility] nivers vitamin 4-24 tablet by [facility] of w/FA tablet 00:00: mouth [place] 00 daily. Medical Branch docusate 2020-0 Yes [id number] 240mg Take 1 Un johnny calcium 240 4-24 capsule by [facility] y of mg capsule 00:00: mouth once [place] 00 daily as Medical needed for Branch Constipati on. ferrous 2020-0 Yes [id number] 325mg Take 1 Uni vers sulfate 325 4-24 tablet by [facility] of mg (65 mg 00:00: mouth 2 [place] iron) 00 (two) Medical tablet times Branch daily. ibuprofen 2020-0 Yes [id number] 600mg Take 1 [facility] nivers 600 mg 4-24 tablet by [facility] of tablet 00:00: mouth [place] 00 every 6 Medical (six) Branch hours as needed (Pain). Take with food or milk. 2020-0 Yes [id number] 1{tbl} Take 1 [facility] nivers vitamin 4-24 tablet by [facility] of w/FA tablet 00:00: mouth [place] 00 daily. Medical Branch docusate 2020-0 Yes [id number] 240mg Take 1 Un johnny calcium 240 4-24 capsule by [facility] y of mg capsule 00:00: mouth once [place] 00 daily as Medical needed for Branch Constipati on. ferrous 2020-0 Yes [id number] 325mg Take 1 [facility] vers sulfate 325 4-24 tablet by [facility] of mg (65 mg 00:00: mouth 2 [place] iron) 00 (two) Medical tablet times Branch daily. ibuprofen 2020-0 Yes [id number] 600mg Take 1 [facility] nivers 600 mg 4-24 tablet by [facility] of tablet 00:00: mouth [place] 00 every 6 Medical (six) Branch hours as needed (Pain). Take with food or milk. 2020-0 Yes [id number] 1{tbl} Take 1 [facility] nivers vitamin 4-24 tablet by [facility] of w/FA tablet 00:00: mouth [place] 00 daily. Medical Branch docusate 2020-0 Yes [id number] 240mg Take 1 Un johnny calcium 240 4-24 capsule by [facility] y of mg capsule 00:00: mouth once [place] 00 daily as Medical needed for Branch Constipati on. ferrous 2020-0 Yes [id number] 325mg Take 1 [facility] vers sulfate 325 4-24 tablet by [facility] of mg (65 mg 00:00: mouth 2 [place] iron) 00 (two) Medical tablet times Branch daily. ibuprofen 2020-0 Yes [id number] 600mg Take 1 [facility] nivers 600 mg 4-24 tablet by [facility] of tablet 00:00: mouth [place] 00 every 6 Medical (six) Branch hours as needed (Pain). Take with food or milk. 2020-0 Yes [id number] 1{tbl} Take 1 [facility] nivers vitamin 4-24 tablet by [facility] of w/FA tablet 00:00: mouth [place] 00 daily. Medical Branch docusate 2020-0 Yes [id number] 240mg Take 1 Un johnny calcium 240 4-24 capsule by [facility] y of mg capsule 00:00: mouth once [place] 00 daily as Medical needed for Branch Constipati on. ferrous 2020-0 Yes [id number] 325mg Take 1 [facility] vers sulfate 325 4-24 tablet by [facility] of mg (65 mg 00:00: mouth 2 [place] iron) 00 (two) Medical tablet times Branch daily. ibuprofen 2020-0 Yes [id number] 600mg Take 1 [facility] nivers 600 mg 4-24 tablet by [facility] of tablet 00:00: mouth [place] 00 every 6 Medical (six) Branch hours as needed (Pain). Take with food or milk. 2020-0 Yes [id number] 1{tbl} Take 1 [facility] nivers vitamin 4-24 tablet by [facility] of w/FA tablet 00:00: mouth [place] 00 daily. Medical Branch docusate 2020-0 Yes [id number] 240mg Take 1 Un johnny calcium 240 4-24 capsule by [facility] y of mg capsule 00:00: mouth once [place] 00 daily as Medical needed for Branch Constipati on. ferrous 2020-0 Yes [id number] 325mg Take 1 [facility] vers sulfate 325 4-24 tablet by [facility] of mg (65 mg 00:00: mouth 2 [place] iron) 00 (two) Medical tablet times Branch daily. ibuprofen 2020-0 Yes [id number] 600mg Take 1 [facility] nivers 600 mg 4-24 tablet by [facility] of tablet 00:00: mouth [place] 00 every 6 Medical (six) Branch hours as needed (Pain). Take with food or milk. 2020-0 Yes [id number] 1{tbl} Take 1 [facility] nivers vitamin 4-24 tablet by [facility] of w/FA tablet 00:00: mouth [place] 00 daily. Medical Branch docusate 2020-0 Yes [id number] 240mg Take 1 Un johnny calcium 240 4-24 capsule by [facility] y of mg capsule 00:00: mouth once [place] 00 daily as Medical needed for Branch Constipati on. ferrous 2020-0 Yes [id number] 325mg Take 1 [facility] vers sulfate 325 4-24 tablet by [facility] of mg (65 mg 00:00: mouth 2 [place] iron) 00 (two) Medical tablet times Branch daily. ibuprofen 2020-0 Yes [id number] 600mg Take 1 [facility] nivers 600 mg 4-24 tablet by [facility] of tablet 00:00: mouth [place] 00 every 6 Medical (six) Branch hours as needed (Pain). Take with food or milk. 2020-0 Yes [id number] 1{tbl} Take 1 [facility] nivers vitamin 4-24 tablet by [facility] of w/FA tablet 00:00: mouth [place] 00 daily. Medical Branch docusate 2020-0 Yes [id number] 240mg Take 1 Un johnny calcium 240 4-24 capsule by [facility] of mg capsule 00:00: mouth once [place] 00 daily as Medical needed for Branch Constipati on. ferrous 2020-0 Yes [id number] 325mg Take 1 [facility] vers sulfate 325 4-24 tablet by [facility] of mg (65 mg 00:00: mouth 2 [place] iron) 00 (two) Medical tablet times Branch daily. ibuprofen 2020-0 Yes [id number] 600mg Take 1 [facility] nivers 600 mg 4-24 tablet by [facility] of tablet 00:00: mouth [place] 00 every 6 Medical (six) Branch hours as needed (Pain). Take with food or milk. 2020-0 Yes [id number] 1{tbl} Take 1 [facility] nivers vitamin 4-24 tablet by [facility] of w/FA tablet 00:00: mouth [place] 00 daily. Medical Branch docusate 2020-0 Yes [id number] 240mg Take 1 Un jonhny calcium 240 4-24 capsule by [facility] y of mg capsule 00:00: mouth once [place] 00 daily as Medical needed for Branch Constipati on. ferrous 2020-0 Yes [id number] 325mg Take 1 [facility] vers sulfate 325 4-24 tablet by [facility] of mg (65 mg 00:00: mouth 2 [place] iron) 00 (two) Medical tablet times Branch daily. ibuprofen 2020-0 Yes [id number] 600mg Take 1 [facility] nivers 600 mg 4-24 tablet by [facility] of tablet 00:00: mouth [place] 00 every 6 Medical (six) Branch hours as needed (Pain). Take with food or milk. 2020-0 Yes [id number] 1{tbl} Take 1 [facility] nivers vitamin 4-24 tablet by [facility] of w/FA tablet 00:00: mouth [place] 00 daily. Medical Branch docusate 2020-0 Yes [id number] 240mg Take 1 Un johnny calcium 240 4-24 capsule by [facility] y of mg capsule 00:00: mouth once [place] 00 daily as Medical needed for Branch Constipati on. ferrous 2020-0 Yes [id number] 325mg Take 1 [facility] vers sulfate 325 4-24 tablet by [facility] of mg (65 mg 00:00: mouth 2 [place] iron) 00 (two) Medical tablet times Branch daily. ibuprofen 2020-0 Yes [id number] 600mg Take 1 [facility] nivers 600 mg 4-24 tablet by [facility] of tablet 00:00: mouth [place] 00 every 6 Medical (six) Branch hours as needed (Pain). Take with food or milk. 2020-0 Yes [id number] 1{tbl} Take 1 [facility] nivers vitamin 4-24 tablet by [facility] of w/FA tablet 00:00: mouth [place] 00 daily. Medical Branch docusate 2020-0 Yes [id number] 240mg Take 1 Un johnny calcium 240 4-24 capsule by [facility] y of mg capsule 00:00: mouth once [place] 00 daily as Medical needed for Branch Constipati on. ferrous 2020-0 Yes [id number] 325mg Take 1 [facility] vers sulfate 325 4-24 tablet by [facility] of mg (65 mg 00:00: mouth 2 [place] iron) 00 (two) Medical tablet times Branch daily. ibuprofen 2020-0 Yes [id number] 600mg Take 1 [facility] nivers 600 mg 4-24 tablet by [facility] of tablet 00:00: mouth [place] 00 every 6 Medical (six) Branch hours as needed (Pain). Take with food or milk. 2020-0 Yes [id number] 1{tbl} Take 1 [facility] nivers vitamin 4-24 tablet by [facility] of w/FA tablet 00:00: mouth [place] 00 daily. Medical Branch docusate 2020-0 Yes [id number] 240mg Take 1 Un johnny calcium 240 4-24 capsule by [facility] y of mg capsule 00:00: mouth once [place] 00 daily as Medical needed for Branch Constipati on. ferrous 2020-0 Yes [id number] 325mg Take 1 [facility] vers sulfate 325 4-24 tablet by [facility] of mg (65 mg 00:00: mouth 2 [place] iron) 00 (two) Medical tablet times Branch daily. ibuprofen 2020-0 Yes [id number] 600mg Take 1 [facility] nivers 600 mg 4-24 tablet by [facility] of tablet 00:00: mouth [place] 00 every 6 Medical (six) Branch hours as needed (Pain). Take with food or milk. 2020-0 Yes [id number] 1{tbl} Take 1 [facility] nivers vitamin 4-24 tablet by [facility] of w/FA tablet 00:00: mouth [place] 00 daily. Medical Branch docusate 2020-0 Yes [id number] 240mg Take 1 Un johnny calcium 240 4-24 capsule by [facility] y of mg capsule 00:00: mouth once [place] 00 daily as Medical needed for Branch Constipati on. ferrous 2020-0 Yes [id number] 325mg Take 1 [facility] vers sulfate 325 4-24 tablet by [facility] of mg (65 mg 00:00: mouth 2 [place] iron) 00 (two) Medical tablet times Branch daily. ibuprofen 2020-0 Yes [id number] 600mg Take 1 [facility] nivers 600 mg 4-24 tablet by [facility] of tablet 00:00: mouth [place] 00 every 6 Medical (six) Branch hours as needed (Pain). Take with food or milk. 2020-0 Yes [id number] 1{tbl} Take 1 [facility] nivers vitamin 4-24 tablet by [facility] of w/FA tablet 00:00: mouth [place] 00 daily. Medical Branch docusate 2020-0 Yes [id number] 240mg Take 1 Un johnny calcium 240 4-24 capsule by [facility] of mg capsule 00:00: mouth once [place] 00 daily as Medical needed for Branch Constipati on. ferrous 2020-0 Yes [id number] 325mg Take 1 [facility] vers sulfate 325 4-24 tablet by [facility] of mg (65 mg 00:00: mouth 2 [place] iron) 00 (two) Medical tablet times Branch daily. ibuprofen 2020-0 Yes [id number] 600mg Take 1 [facility] nivers 600 mg 4-24 tablet by [facility] of tablet 00:00: mouth [place] 00 every 6 Medical (six) Branch hours as needed (Pain). Take with food or milk. 2020-0 Yes [id number] 1{tbl} Take 1 [facility] nivers vitamin 4-24 tablet by [facility] of w/FA tablet 00:00: mouth [place] 00 daily. Medical Branch docusate 2020-0 Yes [id number] 240mg Take 1 Un johnny calcium 240 4-24 capsule by [facility] y of mg capsule 00:00: mouth once [place] 00 daily as Medical needed for Branch Constipati on. ferrous 2020-0 Yes [id number] 325mg Take 1 [facility] vers sulfate 325 4-24 tablet by [facility] of mg (65 mg 00:00: mouth 2 [place] iron) 00 (two) Medical tablet times Branch daily. ibuprofen 2020-0 Yes [id number] 600mg Take 1 [facility] nivers 600 mg 4-24 tablet by [facility] of tablet 00:00: mouth [place] 00 every 6 Medical (six) Branch hours as needed (Pain). Take with food or milk. 2020-0 Yes [id number] 1{tbl} Take 1 [facility] nivers vitamin 4-24 tablet by [facility] of w/FA tablet 00:00: mouth [place] 00 daily. Medical Branch docusate 2020-0 Yes [id number] 240mg Take 1 Un johnny calcium 240 4-24 capsule by [facility] of mg capsule 00:00: mouth once [place] 00 daily as Medical needed for Branch Constipati on. ferrous 2020-0 Yes [id number] 325mg Take 1 [facility] vers sulfate 325 4-24 tablet by [facility] of mg (65 mg 00:00: mouth 2 [place] iron) 00 (two) Medical tablet times Branch daily. ibuprofen 2020-0 Yes [id number] 600mg Take 1 [facility] nivers 600 mg 4-24 tablet by [facility] of tablet 00:00: mouth [place] 00 every 6 Medical (six) Branch hours as needed (Pain). Take with food or milk. 2020-0 Yes [id number] 1{tbl} Take 1 [facility] nivers vitamin 4-24 tablet by [facility] of w/FA tablet 00:00: mouth [place] 00 daily. Medical Branch docusate 2020-0 Yes [id number] 240mg Take 1 Un johnny calcium 240 4-24 capsule by [facility] of mg capsule 00:00: mouth once [place] 00 daily as Medical needed for Branch Constipati on. ferrous 2020-0 Yes [id number] 325mg Take 1 [facility] vers sulfate 325 4-24 tablet by [facility] of mg (65 mg 00:00: mouth 2 [place] iron) 00 (two) Medical tablet times Branch daily. ibuprofen 2020-0 Yes [id number] 600mg Take 1 [facility] nivers 600 mg 4-24 tablet by [facility] of tablet 00:00: mouth [place] 00 every 6 Medical (six) Branch hours as needed (Pain). Take with food or milk. 2020-0 Yes [id number] 1{tbl} Take 1 [facility] nivers vitamin 4-24 tablet by [facility] of w/FA tablet 00:00: mouth [place] 00 daily. Medical Branch docusate 2020-0 Yes [id number] 240mg Take 1 Un johnny calcium 240 4-24 capsule by [facility] y of mg capsule 00:00: mouth once [place] 00 daily as Medical needed for Branch Constipati on. ferrous 2020-0 Yes [id number] 325mg Take 1 [facility] vers sulfate 325 4-24 tablet by [facility] of mg (65 mg 00:00: mouth 2 [place] iron) 00 (two) Medical tablet times Branch daily. ibuprofen 2020-0 Yes [id number] 600mg Take 1 [facility] nivers 600 mg 4-24 tablet by [facility] of tablet 00:00: mouth [place] 00 every 6 Medical (six) Branch hours as needed (Pain). Take with food or milk. 2020-0 Yes [id number] 1{tbl} Take 1 [facility] nivers vitamin 4-24 tablet by [facility] of w/FA tablet 00:00: mouth [place] 00 daily. Medical Branch docusate 2020-0 Yes [id number] 240mg Take 1 Un johnny calcium 240 4-24 capsule by [facility] y of mg capsule 00:00: mouth once [place] 00 daily as Medical needed for Branch Constipati on. ferrous 2020-0 Yes [id number] 325mg Take 1 [facility] vers sulfate 325 4-24 tablet by [facility] of mg (65 mg 00:00: mouth 2 [place] iron) 00 (two) Medical tablet times Branch daily. ibuprofen 2020-0 Yes [id number] 600mg Take 1 [facility] nivers 600 mg 4-24 tablet by [facility] of tablet 00:00: mouth [place] 00 every 6 Medical (six) Branch hours as needed (Pain). Take with food or milk. 2020-0 Yes [id number] 1{tbl} Take 1 [facility] nivers vitamin 4-24 tablet by [facility] of w/FA tablet 00:00: mouth [place] 00 daily. Medical Branch docusate 2020-0 Yes [id number] 240mg Take 1 Un johnny calcium 240 4-24 capsule by [facility] y of mg capsule 00:00: mouth once [place] 00 daily as Medical needed for Branch Constipati on. ferrous 2020-0 Yes [id number] 325mg Take 1 [facility] vers sulfate 325 4-24 tablet by [facility] of mg (65 mg 00:00: mouth 2 [place] iron) 00 (two) Medical tablet times Branch daily. ibuprofen 2020-0 Yes [id number] 600mg Take 1 [facility] nivers 600 mg 4-24 tablet by [facility] of tablet 00:00: mouth [place] 00 every 6 Medical (six) Branch hours as needed (Pain). Take with food or milk. 2020-0 Yes [id number] 1{tbl} Take 1 [facility] nivers vitamin 4-24 tablet by [facility] of w/FA tablet 00:00: mouth [place] 00 daily. Medical Branch docusate 2020-0 Yes [id number] 240mg Take 1 Un johnny calcium 240 4-24 capsule by [facility] y of mg capsule 00:00: mouth once [place] 00 daily as Medical needed for Branch Constipati on. ferrous 2020-0 Yes [id number] 325mg Take 1 [facility] vers sulfate 325 4-24 tablet by [facility] of mg (65 mg 00:00: mouth 2 [place] iron) 00 (two) Medical tablet times Branch daily. ibuprofen 2020-0 Yes [id number] 600mg Take 1 [facility] nivers 600 mg 4-24 tablet by [facility] of tablet 00:00: mouth [place] 00 every 6 Medical (six) Branch hours as needed (Pain). Take with food or milk. 2020-0 Yes [id number] 1{tbl} Take 1 [facility] vitamin 4-24 tablet by [facility] of w/FA tablet 00:00: mouth [place] 00 daily. Medical Branch docusate 2020-0 Yes [id number] 240mg Take 1 Un john[facility] calcium 240 4-24 capsule by [facility] y of mg capsule 00:00: mouth once [place] 00 daily as Medical needed for Branch Constipati on. ferrous 2020-0 Yes [id number] 325mg Take 1 [facility] vers sulfate 325 4-24 tablet by [facility] of mg (65 mg 00:00: mouth 2 [place] iron) 00 (two) Medical tablet times Branch daily. ibuprofen 2020-0 Yes [id number] 600mg Take 1 [facility] nivers 600 mg 4-24 tablet by [facility] of tablet 00:00: mouth [place] 00 every 6 Medical (six) Branch hours as needed (Pain). Take with food or milk. 2020-0 Yes [id number] 1{tbl} Take 1 [facility]ivers vitamin 4-24 tablet by [facility] of w/FA tablet 00:00: mouth [place] 00 daily. Medical [facility] docusate 2020-0 Yes [id number] 240mg Take 1 Un john[facility] calcium 240 4-24 capsule by it y of mg capsule 00:00: mouth once [place] 00 daily as Medical needed for Branch Constipati on. ferrous 2020-0 Yes [id number] 325mg Take 1 [facility] vers sulfate 325 4-24 tablet by [facility] of mg (65 mg 00:00: mouth 2 [place] iron) 00 (two) Medical tablet times Branch daily. ibuprofen 2020-0 Yes [id number] 600mg Take 1 [facility] nivers 600 mg 4-24 tablet by [facility] of tablet 00:00: mouth [place] 00 every 6 Medical (six) Branch hours as needed (Pain). Take with food or milk. 2020-0 Yes [id number] 1{tbl} Take 1 [facility] vitamin 4-24 tablet by [facility] of w/FA tablet 00:00: mouth [place] 00 daily. Medical Branch docusate 2020-0 Yes [id number] 240mg Take 1 Un john[facility] calcium 240 4-24 capsule by it y of mg capsule 00:00: mouth once [place] 00 daily as Medical needed for Branch Constipati on. ferrous 2020-0 Yes [id number] 325mg Take 1 [facility] vers sulfate 325 4-24 tablet by [facility] of mg (65 mg 00:00: mouth 2 [place] iron) 00 (two) Medical tablet times Branch daily. ibuprofen 2020-0 Yes [id number] 600mg Take 1 [facility] nivers 600 mg 4-24 tablet by [facility] of tablet 00:00: mouth [place] 00 every 6 Medical (six) Branch hours as needed (Pain). Take with food or milk. 2020-0 Yes [id number] 1{tbl} Take 1 [facility] vitamin 4-24 tablet by [facility] of w/FA tablet 00:00: mouth [place] 00 daily. Medical Branch docusate 2020-0 Yes [id number] 240mg Take 1 Un j[facility] calcium 240 4-24 capsule by [facility] y of mg capsule 00:00: mouth once [place] 00 daily as Medical needed for Branch Constipati on. ferrous 2020-0 Yes [id number] 325mg Take 1 [facility] vers sulfate 325 4-24 tablet by [facility] of mg (65 mg 00:00: mouth 2 [place] iron) 00 (two) Medical tablet times Branch daily. ibuprofen 2020-0 Yes [id number] 600mg Take 1 [facility] 600 mg 4-24 tablet by [facility] of tablet 00:00: mouth [place] 00 every 6 Medical (six) Branch hours as needed (Pain). Take with food or milk. 2020-0 Yes [id number] 1{tbl} Take 1 [facility] vitamin 4-24 tablet by [facility] of w/FA tablet 00:00: mouth [place] 00 daily. Medical [facility] docusate 2020-0 Yes [id number] 240mg Take 1 Un john[facility] calcium 240 4-24 capsule by [facility] y of mg capsule 00:00: mouth once [place] 00 daily as Medical needed for Branch Constipati on. ferrous 2020-0 Yes [id number] 325mg Take 1 [facility] vers sulfate 325 4-24 tablet by [facility] of mg (65 mg 00:00: mouth 2 [place] iron) 00 (two) Medical tablet times Branch daily. ibuprofen 2020-0 Yes [id number] 600mg Take 1 [facility] 600 mg 4-24 tablet by [facility] of tablet 00:00: mouth [place] 00 every 6 Medical (six) Branch hours as needed (Pain). Take with food or milk. 2020-0 Yes [id number] 1{tbl} Take 1 [facility] vitamin 4-24 tablet by [facility] of w/FA tablet 00:00: mouth [place] 00 daily. Medical [facility] docusate 2020-0 Yes [id number] 240mg Take 1 Un j[facility] calcium 240 4-24 capsule by it y of mg capsule 00:00: mouth once [place] 00 daily as Medical needed for Branch Constipati on. ferrous 2020-0 Yes [id number] 325mg Take 1 [facility] vers sulfate 325 4-24 tablet by [facility] of mg (65 mg 00:00: mouth 2 [place] iron) 00 (two) Medical tablet times Branch daily. ibuprofen 2020-0 Yes [id number] 600mg Take 1 [facility] 600 mg 4-24 tablet by [facility] of tablet 00:00: mouth [place] 00 every 6 Medical (six) Branch hours as needed (Pain). Take with food or milk. 2020-0 Yes [id number] 1{tbl} Take 1 [facility] vitamin 4-24 tablet by [facility] of w/FA tablet 00:00: mouth [place] 00 daily. Medical [facility] docusate 2020-0 Yes [id number] 240mg Take 1 Un john[facility] calcium 240 4-24 capsule by it y of mg capsule 00:00: mouth once [place] 00 daily as Medical needed for Branch Constipati on. ferrous 2020-0 Yes [id number] 325mg Take 1 [facility] vers sulfate 325 4-24 tablet by [facility] of mg (65 mg 00:00: mouth 2 [place] iron) 00 (two) Medical tablet times Branch daily. ibuprofen 2020-0 Yes [id number] 600mg Take 1 [facility] 600 mg 4-24 tablet by [facility] of tablet 00:00: mouth [place] 00 every 6 Medical (six) Branch hours as needed (Pain). Take with food or milk. 2020-0 Yes [id number] 1{tbl} Take 1 [facility] vitamin 4-24 tablet by [facility] of w/FA tablet 00:00: mouth [place] 00 daily. Medical Branch docusate 2020-0 Yes [id number] 240mg Take 1 Un john[facility] calcium 240 4-24 capsule by it y of mg capsule 00:00: mouth once [place] 00 daily as Medical needed for Branch Constipati on. ferrous 2020-0 Yes [id number] 325mg Take 1 [facility] vers sulfate 325 4-24 tablet by [facility] of mg (65 mg 00:00: mouth 2 [place] iron) 00 (two) Medical tablet times Branch daily. ibuprofen 2020-0 Yes [id number] 600mg Take 1 [facility] 600 mg 4-24 tablet by [facility] of tablet 00:00: mouth [place] 00 every 6 Medical (six) Branch hours as needed (Pain). Take with food or milk. 2020-0 Yes [id number] 1{tbl} Take 1 [facility] vitamin 4-24 tablet by [facility] of w/FA tablet 00:00: mouth [place] 00 daily. Medical [facility] docusate 2020-0 Yes [id number] 240mg Take 1 Un johnny calcium 240 4-24 capsule by it y of mg capsule 00:00: mouth once [place] 00 daily as Medical needed for Branch Constipati on. ferrous 2020-0 Yes [id number] 325mg Take 1 [facility] vers sulfate 325 4-24 tablet by [facility]y of mg (65 mg 00:00: mouth 2 [place] iron) 00 (two) Medical tablet times Branch daily. ibuprofen 2020-0 Yes [id number] 600mg Take 1 [facility] 600 mg 4-24 tablet by [facility] of tablet 00:00: mouth [place] 00 every 6 Medical (six) Branch hours as needed (Pain). Take with food or milk. 2020-0 Yes [id number] 1{tbl} Take 1 [facility] vitamin 4-24 tablet by [facility] of w/FA tablet 00:00: mouth [place] 00 daily. Medical Branch docusate 2020-0 Yes [id number] 240mg Take 1 Un johnny calcium 240 4-24 capsule by it y of mg capsule 00:00: mouth once [place] 00 daily as Medical needed for Branch Constipati on. ferrous 2020-0 Yes [id number] 325mg Take 1 [facility] vers sulfate 325 4-24 tablet by [facility]y of mg (65 mg 00:00: mouth 2 [place] iron) 00 (two) Medical tablet times Branch daily. ibuprofen 2020-0 Yes [id number] 600mg Take 1 [facility] nivers 600 mg 4-24 tablet by [facility] of tablet 00:00: mouth [place] 00 every 6 Medical (six) Branch hours as needed (Pain). Take with food or milk. rho(D) 2020-0 Yes 300ug 300 mcg, Univer s immune 4-23 Intramuscu ity of globulin 06:08: lar, ONCE, [place] (RHOGAM) 54 For 1 Medical syringe 300 dose, Branch mcg Conditiona l, Routine HYDROcodone 2020-0 Yes 1{tbl} 1 tablet, Univers -acetaminop 01-30 Oral, ity of hen (NORCO 06:08: Q6HPRN, [place] 5) 5-325 mg 50 Starting Medi johnny tablet 1 [place] [facility] tablet 01/31/20 at 0108, Until Discontinu ed, Routine, Pain (scale 7-10) ibuprofen 2020-0 Yes 600mg 600 mg, Univ ers (IBU) - Oral, ity of tablet 600 06:08: Q6HPRN, [place] mg 50 Starting Medical [place] [facility] 01/31/20 at 0108, Until Discontinu ed, Routine, Pain (scale 4-6) diphenhydrA 2020-0 Yes 25mg 25 mg, Univ ers MINE 01-30 Oral, ity of (BENADRYL) 06:08: Q6HPRN, [place] tablet 25 50 Starting Medica l mg [place] [facility] 01/31/20 at 0108, Until Discontinu ed, Routine, Sleep, Itching ondansetron 2020-0 Yes 4mg 4 mg, Slow Univers (ZOFRAN 01-30 IV Push, ity of (PF)) 06:08: Q8HPRN, [place] injection 4 50 Starting Medi johnny mg [place] [facility] 01/31/20 at 0108, Until Discontinu ed, Routine, Nausea and Vomiting (N/V) simethicone 2020-0 Yes 160mg 160 mg, Un johnny (GAS RELIEF 01-30 Oral, ity of (SIMETHICON 06:08: PC+HSPRN, [place] E)) 50 Starting Medical chewable [place] [facility] tablet 160 01/31/20 at mg 0108, Until Discontinu ed, Routine, Gas docusate 2020-0 Yes 240mg 240 mg, Unive rs calcium 01-30 Oral, ity of (SURFAK) 06:08: QDAILYPRN, [place] capsule 240 50 Starting Medi johnny mg [place] [facility] 01/31/20 at 0108, Until Discontinu ed, Routine, Constipati on magnesium 2020-0 Yes 30mL 30 mL, Univer s hydroxide 01-30 Oral, ity of (MILK OF 06:08: QDAILYPRN, [place] MAGNESIA) 50 Starting Medica l 400 mg/5 mL [place] [facility] suspension 01/31/20 at 30 mL 0108, Until Discontinu ed, Routine, Constipati on acetaminoph 2019-0 Yes 650mg 650 mg, Un johnny en 01-30 Oral, ity of (TYLENOL) 06:08: Q6HPRN, [place] tablet 650 49 Starting Medic al mg [place] [facility] 01/31/20 at 0108, Until Discontinu ed, Routine, Pain (scale 1-3) benzocaine- 2019-0 Yes Topical, Un johnny menthol 01-30 PRN, ity of (DERMOPLAST 06:08: [place] 20-0.5 % 49 [place] [facility] topical 01/31/20 at Branch spray 0108, Until Discontinu ed, Routine, Perineum discomfort LR 1000 mL 2020-0 2020- No 2mU/min at 6 Uni vers + oxytocin 01-30 04-23 mL/hr, IV ity of 20 units IV 05:45: 05:30 Infusion, [place] Solution 00 :00 ONCE, 1 Medical dose, [place] [facility] 01/31/20 at 0045, Routine oxytocin 2020-0 2020- No at 2-40 Unive rs (PITOCIN) 01-29 04-23 mL/hr, IV ity of 20 Units in 23:58: 06:08 Infusion, [place] lactated 23 :55 TITRATE, Medical ringers Starting Branch 1,000 mL IV Wed infusion 01/30/20 at 1858, Until [place] 01/31/20 at 0108, Routine D5W-LR IV 2020-0 2020- No 1000mL at 125 Uni vers infusion 01-29-23 mL/hr, IV ity o f 1,000 mL 18:15: 06:08 Infusion, [place] 00 :55 CONTINUOUS Medical , Starting Branch 01/30/20 at 1315, Until [place] 01/31/20 at 010, Routine proMETHazin 2020-0 2020- No 25mg 25 mg, IV Univers e 01-2923 Piggyback, ity of (PHENERGAN) 18:00: 06:08 Q6HPRN, [place] 25 mg in 39 :55 Starting Medical NaCl 0.9% Wed Branch (NS) 50 mL 01/30/20 at piggyback 1300, Until [place] 01/31/20 at 0108, 50 mL FENTanyl PF 2019- 2020- No 100ug 100 mcg, Univers (SUBLIMAZE 01-29 Slow IV ity o f (PF)) 18:00: 06:08 Push, [place] injection 20 :55 Q1HPRN, Medical 100 mcg Starting Branch 01/30/20 at 1300, Until [place] 01/31/20 at 0108, Routine, contractio n pain without an epidural and SVE < 8 cm and Cat I strip busPIRone 5 2020-0 Yes [id number] 5mg Take 1 [facility] mg tablet 4-21 tablet by ity o f 00:00: mouth 2 [place] (two) Medical times Branch daily. busPIRone 5 2020-0 Yes [id number] 5mg Take 1 [facility] mg tablet 4-21 tablet by ity o f 00:00: mouth [place] (two) Medical times Branch daily. busPIRone 5 2020-0 Yes [id number] 5mg Take 1 [facility] mg tablet 4-21 tablet by ity o f 00:00: mouth [place] (two) Medical times Branch daily. busPIRone 5 2020-0 2020- No [id number] 5mg Take 1 [facility] mg tablet 4-21 04-24 tablet by ity of 00:00: 00:00 mouth 2 [place] 00 :00 (two) Medical times Branch daily. busPIRone 5 2020-0 2020- No [id number] 5mg Take 1 [facility] mg tablet 4-28 01-21 tablet by ity of 00:00: 00:00 mouth 2 [place] 00 :00 (two) Medical times Branch daily. busPIRone 5 2020-0 Yes [id number] 5mg Take 1 [facility] mg tablet 2-18 tablet by ity o f 00:00: mouth 2 [place] (two) Medical times Branch daily. busPIRone 5 2020-0 Yes [id number] 5mg Take 1 [facility] mg tablet 2-18 tablet by ity o f 00:00: mouth 2 [place] (two) Medical times Branch daily. busPIRone 5 2020-0 Yes [id number] 5mg Take 1 [facility] mg tablet 2-18 tablet by ity o f 00:00: mouth 2 [place] (two) Medical times Branch daily. busPIRone 5 2020-0 Yes [id number] 5mg Take 1 [facility] mg tablet 2-18 tablet by ity o f 00:00: mouth (two) Medical times Branch daily. busPIRone 5 2020-0 Yes [id number] 5mg Take 1 [facility] mg tablet 2-18 tablet by ity o f 00:00: [place] (two) Medical times Branch daily. busPIRone 5 2020-0 Yes [id number] 5mg Take 1 [facility] mg tablet 2-18 tablet by ity o f 00:00: [place] (two) Medical times Branch daily. busPIRone 5 2020-0 Yes [id number] 5mg Take 1 [facility] mg tablet 2-18 tablet by ity o f 00:00: [place] (two) Medical times Branch daily. busPIRone 5 2020-0 Yes [id number] 5mg Take 1 [facility] mg tablet 2-18 tablet by ity o f 00:00: [place] (two) Medical times Branch daily. busPIRone 5 2020-0 Yes [id number] 5mg Take 1 [facility] mg tablet 2-18 tablet by ity o f 00:00: mouth (two) Medical times Branch daily. busPIRone 5 2020-0 Yes [id number] 5mg Take 1 [facility] mg tablet 2-18 tablet by ity o f 00:00: mouth (two) Medical times Branch daily. busPIRone 5 2020-0 Yes [id number] 5mg Take 1 [facility] mg tablet 2-18 tablet by ity o f 00:00: mouth (two) Medical times Branch daily. busPIRone 5 2020-0 Yes [id number] 5mg Take 1 [facility] mg tablet 2-18 tablet by ity o f 00:00: [place] (two) Medical times Branch daily. busPIRone 5 2020-0 Yes [id number] 5mg Take 1 [facility] mg tablet 2-18 tablet by ity o f 00:00: [place] (two) Medical times Branch daily. busPIRone 5 2020-0 Yes [id number] 5mg Take 1 [facility] mg tablet 2-18 tablet by ity o f 00:00: mouth (two) Medical times Branch daily. busPIRone 5 2020-0 Yes [id number] 5mg Take 1 [facility] mg tablet 2-18 tablet by ity o f 00:00: mouth 2 [place] 00 (two) Medical times Branch daily. busPIRone 5 2020-0 Yes [id number] 5mg Take 1 [facility] mg tablet 2-18 tablet by ity o f 00:00: mouth 2 [place] 00 (two) Medical times Branch daily. busPIRone 5 2020-0 2020- No [id number] 5mg Take 1 [facility] mg tablet 2-18 04-21 tablet by ity of 00:00: 00:00 mouth 2 [place] 00 :00 (two) Medical times Branch daily. busPIRone 5 2020-0 2020- No [id number] 5mg Take 1 [facility] mg tablet 2-18 04-21 tablet by ity of 00:00: 00:00 mouth 2 [place] 00 :00 (two) Medical times Branch daily. FLUoxetine 2020-0 Yes [id number] 10mg Take 1 [facility] 10 mg 2-04 capsule by ity of capsule 00:00: mouth [place] 00 daily. Medical Branch FLUoxetine 2020-0 Yes [id number] 10mg Take 1 [facility] 10 mg 2-04 capsule by ity of capsule 00:00: mouth [place] 00 daily. Medical Branch FLUoxetine 2020-0 Yes [id number] 10mg Take 1 [facility] 10 mg 2-04 capsule by ity of capsule 00:00: mouth [place] 00 daily. Medical Branch FLUoxetine 2020-0 Yes [id number] 10mg Take 1 [facility] 10 mg 2-04 capsule by ity of capsule 00:00: mouth [place] 00 daily. Medical Branch FLUoxetine 2020-0 Yes [id number] 10mg Take 1 [facility] 10 mg 2-04 capsule by ity of capsule 00:00: mouth [place] 00 daily. Medical Branch FLUoxetine 2020-0 Yes [id number] 10mg Take 1 [facility] 10 mg 2-04 capsule by ity of capsule 00:00: mouth [place] 00 daily. Medical Branch FLUoxetine 2020-0 Yes [id number] 10mg Take 1 [facility] 10 mg 2-04 capsule by ity of capsule 00:00: mouth [place] 00 daily. Medical Branch FLUoxetine 2020-0 Yes [id number] 10mg Take 1 [facility] 10 mg 2-04 capsule by ity of capsule 00:00: mouth [place] 00 daily. Medical Branch FLUoxetine 2020-0 Yes [id number] 10mg Take 1 [facility] 10 mg 2-04 capsule by ity of capsule 00:00: mouth [place] 00 daily. Medical Branch FLUoxetine 2020-0 Yes [id number] 10mg Take 1 [facility] 10 mg 2-04 capsule by ity of capsule 00:00: mouth [place] 00 daily. Medical Branch FLUoxetine 2020-0 Yes [id number] 10mg Take 1 [facility] 10 mg 2-04 capsule by ity of capsule 00:00: mouth [place] 00 daily. Medical Branch FLUoxetine 2020-0 Yes [id number] 10mg Take 1 [facility] 10 mg 2-04 capsule by ity of capsule 00:00: mouth [place] 00 daily. Medical Branch FLUoxetine 2020-0 Yes [id number] 10mg Take 1 [facility] 10 mg 2-04 capsule by ity of capsule 00:00: mouth [place] 00 daily. Medical Branch FLUoxetine 2020-0 Yes [id number] 10mg Take 1 [facility] 10 mg 2-04 capsule by ity of capsule 00:00: mouth [place] 00 daily. Medical Branch FLUoxetine 2020-0 Yes [id number] 10mg Take 1 [facility] 10 mg 2-04 capsule by ity of capsule 00:00: mouth [place] 00 daily. Medical Branch FLUoxetine 2020-0 Yes [id number] 10mg Take 1 [facility] 10 mg 2-04 capsule by ity of capsule 00:00: mouth [place] 00 daily. Medical Branch FLUoxetine 2020-0 Yes [id number] 10mg Take 1 [facility] 10 mg 2-04 capsule by ity of capsule 00:00: mouth [place] 00 daily. Medical Branch FLUoxetine 2020-0 Yes [id number] 10mg Take 1 [facility] 10 mg 2-04 capsule by ity of capsule 00:00: mouth [place] 00 daily. Medical Branch FLUoxetine 2020-0 Yes [id number] 10mg Take 1 [facility] 10 mg 2-04 capsule by ity of capsule 00:00: mouth [place] 00 daily. Medical Branch FLUoxetine 2020-0 Yes [id number] 10mg Take 1 [facility] 10 mg 2-04 capsule by ity of capsule 00:00: mouth [place] 00 daily. Medical Branch FLUoxetine 2020-0 Yes [id number] 10mg Take 1 [facility] 10 mg 2-04 capsule by ity of capsule 00:00: mouth [place] 00 daily. Medical Branch FLUoxetine 2020-0 Yes [id number] 10mg Take 1 [facility] 10 mg 2-04 capsule by ity of capsule 00:00: mouth [place] 00 daily. Medical Branch FLUoxetine 2020-0 Yes [id number] 10mg Take 1 [facility] 10 mg 2-04 capsule by ity of capsule 00:00: mouth [place] 00 daily. Medical Branch FLUoxetine 2020-0 Yes [id number] 10mg Take 1 [facility] 10 mg 2-04 capsule by ity of capsule 00:00: mouth [place] 00 daily. Medical Branch FLUoxetine 0 2020- No [id number] 10mg Take 1 [facility] 10 mg 2-04 04-24 capsule by ity of capsule 00:00: 00:00 mouth [place] 00 :00 daily. Medical Branch FLUoxetine 0 2020- No [id number] 10mg Take 1 [facility] 10 mg 2-04 04-24 capsule by ity of capsule 00:00: 00:00 mouth [place] 00 :00 daily. Medical Branch acetaminoph 2019- No 650mg 650 mg, U nivers en 11-01 Oral, ity of (TYLENOL) 16:00: 15:01 ONCE, 1 [place] tablet 650 00 :00 dose, [place] Medi johnny mg 11/01/19 at Branch 1000, Routine cefdinir 2020-0 Yes Univers 300 mg 1-22 ity of capsule 00:00: [place] 00 [facility] Branch cefdinir 2020-0 Yes Univers 300 mg 1-22 ity of capsule 00:00: [place] 00 [facility] Branch cefdinir 2020-0 Yes Univers 300 mg 1-22 ity of capsule 00:00: [place] 00 [facility] cefdinir 2020-0 Yes Univers 300 mg 1-22 ity of capsule 00:00: [place] 00 [facility] Branch cefdinir 2020-0 Yes Univers 300 mg 1-22 ity of capsule 00:00: [place] 00 Medical Branch cefdinir 2020-0 Yes Univers 300 mg 1-22 ity of capsule 00:00: [place] 00 [facility] Branch cefdinir 2020-0 Yes Univers 300 mg 1-22 ity of capsule 00:00: [place] 00 [facility] cefdinir 2020-0 Yes Univers 300 mg 1-22 ity of capsule 00:00: [place] 00 [facility] cefdinir 2020-0 Yes Univers 300 mg 1-22 ity of capsule 00:00: [place] 00 [facility] cefdinir 2020-0 Yes Univers 300 mg 1-22 ity of capsule 00:00: [place] 00 [facility] Branch cefdinir 2020-0 Yes Univers 300 mg 1-22 ity of capsule 00:00: [place] 00 [facility] cefdinir 2020-0 Yes Univers 300 mg 1-22 ity of capsule 00:00: [place] 00 Medical Branch cefdinir 2020-0 Yes [facility] 300 mg 1-22 ity of capsule 00:00: [place] 00 Medical Branch cefdinir 2020-0 Yes Univers 300 mg 1-22 ity of capsule 00:00: [place] 00 Medical Branch cefdinir 2020-0 Yes Univers 300 mg 1-22 ity of capsule 00:00: [place] 00 Medical Branch cefdinir 2020-0 Yes Univers 300 mg 1-22 ity of capsule 00:00: [place] 00 Medical Branch cefdinir 2020-0 Yes Univers 300 mg 1-22 ity of capsule 00:00: [place] 00 Medical Branch cefdinir 2020-0 Yes Univers 300 mg 1-22 ity of capsule 00:00: [place] 00 Medical Branch cefdinir 2020-0 Yes Univers 300 mg 1-22 ity of capsule 00:00: [place] 00 Medical Branch cefdinir 2020-0 Yes Univers 300 mg 1-22 ity of capsule 00:00: [place] 00 Medical Branch cefdinir 2020-0 Yes Univers 300 mg 1-22 ity of capsule 00:00: [place] 00 Medical Branch cefdinir 2020-0 Yes Univers 300 mg 1-22 ity of capsule 00:00: [place] 00 Medical Branch cefdinir 2020-0 2020- No Univers 300 mg 1-22 04-22 ity of capsule 00:00: 00:00 [place] 00 :00 Medical Branch cefdinir 2020-0 2020- No Univers 300 mg 1-22 04-22 ity of capsule 00:00: 00:00 [place] 00 :00 Medical Branch ondansetron 2018-10 Yes [id number] 4mg Take 1 [facility] 4 mg tablet 2-29 tablet by ity of 00:00: mouth [place] 00 every 6 Medical (six) Branch hours as needed for Nausea and Vomiting (N/V). pantoprazol 2018-10 Yes [id number] 20mg Take 1 Univers e 20 mg EC 2-29 tablet by ity of tablet 00:00: mouth [place] 00 daily. Medical Branch ondansetron 2018-10 Yes [id number] 4mg Take 1 [facility] 4 mg tablet 2-29 tablet by ity of 00:00: mouth [place] 00 every 6 Medical (six) Branch hours as needed for Nausea and Vomiting (N/V). pantoprazol 2018-10 Yes [id number] 20mg Take 1 Univers e 20 mg EC 2-29 tablet by ity of tablet 00:00: mouth [place] 00 daily. Medical Branch ondansetron 2018-10 Yes [id number] 4mg Take 1 [facility] 4 mg tablet 2-29 tablet by ity of 00:00: mouth [place] 00 every 6 Medical (six) Branch hours as needed for Nausea and Vomiting (N/V). pantoprazol 2018-10 Yes [id number] 20mg Take 1 Univers e 20 mg EC 2-29 tablet by ity of tablet 00:00: mouth [place] 00 daily. Medical Branch ondansetron 2018-10 Yes [id number] 4mg Take 1 [facility] 4 mg tablet 2-29 tablet by ity of 00:00: mouth [place] 00 every 6 Medical (six) Branch hours as needed for Nausea and Vomiting (N/V). pantoprazol 2018-10 Yes [id number] 20mg Take 1 Univers e 20 mg EC 2-29 tablet by ity of tablet 00:00: mouth [place] 00 daily. Medical Branch ondansetron 2018-10 Yes [id number] 4mg Take 1 [facility] 4 mg tablet 2-29 tablet by ity of 00:00: mouth [place] 00 every 6 Medical (six) Branch hours as needed for Nausea and Vomiting (N/V). pantoprazol 2018-10 Yes [id number] 20mg Take 1 Univers e 20 mg EC 2-29 tablet by ity of tablet 00:00: mouth [place] 00 daily. Medical Branch ondansetron 2018-10 Yes [id number] 4mg Take 1 [facility] 4 mg tablet 2-29 tablet by ity of 00:00: mouth [place] 00 every 6 Medical (six) Branch hours as needed for Nausea and Vomiting (N/V). pantoprazol 2018-10 Yes [id number] 20mg Take 1 Univers e 20 mg EC 2-29 tablet by ity of tablet 00:00: mouth [place] 00 daily. Medical Branch ondansetron 2018-10 Yes [id number] 4mg Take 1 Univers 4 mg tablet 2-29 tablet by ity of 00:00: mouth [place] 00 every 6 Medical (six) Branch hours as needed for Nausea and Vomiting (N/V). pantoprazol 2018-10 Yes [id number] 20mg Take 1 Univers e 20 mg EC 2-29 tablet by ity of tablet 00:00: mouth [place] 00 daily. Medical Branch ondansetron 2018-10 Yes [id number] 4mg Take 1 Univers 4 mg tablet 2-29 tablet by ity of 00:00: mouth [place] 00 every 6 Medical (six) Branch hours as needed for Nausea and Vomiting (N/V). pantoprazol 2018-10 Yes [id number] 20mg Take 1 Univers e 20 mg EC 2-29 tablet by ity of tablet 00:00: mouth [place] 00 daily. Medical Branch ondansetron 2018-10 Yes [id number] 4mg Take 1 Univers 4 mg tablet 2-29 tablet by ity of 00:00: mouth [place] 00 every 6 Medical (six) Branch hours as needed for Nausea and Vomiting (N/V). pantoprazol 2018-10 Yes [id number] 20mg Take 1 Univers e 20 mg EC 2-29 tablet by ity of tablet 00:00: mouth [place] 00 daily. Medical Branch ondansetron 2018-10 Yes [id number] 4mg Take 1 Univers 4 mg tablet 2-29 tablet by ity of 00:00: mouth [place] 00 every 6 Medical (six) Branch hours as needed for Nausea and Vomiting (N/V). pantoprazol 2018-10 Yes [id number] 20mg Take 1 Univers e 20 mg EC 2-29 tablet by ity of tablet 00:00: mouth [place] 00 daily. Medical Branch ondansetron 2018-10 Yes [id number] 4mg Take 1 Univers 4 mg tablet 2-29 tablet by ity of 00:00: mouth [place] 00 every 6 Medical (six) Branch hours as needed for Nausea and Vomiting (N/V). pantoprazol 2018-10 Yes [id number] 20mg Take 1 Univers e 20 mg EC 2-29 tablet by ity of tablet 00:00: mouth [place] 00 daily. Medical Branch ondansetron 2018-10 Yes [id number] 4mg Take 1 [facility] 4 mg tablet 2-29 tablet by ity of 00:00: mouth [place] 00 every 6 Medical (six) Branch hours as needed for Nausea and Vomiting (N/V). pantoprazol 2018-10 Yes [id number] 20mg Take 1 Univers e 20 mg EC 2-29 tablet by ity of tablet 00:00: mouth [place] 00 daily. Medical Branch ondansetron 2018-10 Yes [id number] 4mg Take 1 [facility] 4 mg tablet 2-29 tablet by ity of 00:00: mouth [place] 00 every 6 Medical (six) Branch hours as needed for Nausea and Vomiting (N/V). pantoprazol 2018-10 Yes [id number] 20mg Take 1 Univers e 20 mg EC 2-29 tablet by ity of tablet 00:00: mouth [place] 00 daily. Medical Branch ondansetron 2018-10 Yes [id number] 4mg Take 1 [facility] 4 mg tablet 2-29 tablet by ity of 00:00: mouth [place] 00 every 6 Medical (six) Branch hours as needed for Nausea and Vomiting (N/V). pantoprazol 2018-10 Yes [id number] 20mg Take 1 Univers e 20 mg EC 2-29 tablet by ity of tablet 00:00: mouth [place] 00 daily. Medical Branch ondansetron 2018-10 Yes [id number] 4mg Take 1 Univers 4 mg tablet 2-29 tablet by ity of 00:00: mouth [place] 00 every 6 Medical (six) Branch hours as needed for Nausea and Vomiting (N/V). pantoprazol 2018-10 Yes [id number] 20mg Take 1 Univers e 20 mg EC 2-29 tablet by ity of tablet 00:00: mouth [place] 00 daily. Medical Branch ondansetron 2018-10 Yes [id number] 4mg Take 1 Univers 4 mg tablet 2-29 tablet by ity of 00:00: mouth [place] 00 every 6 Medical (six) Branch hours as needed for Nausea and Vomiting (N/V). pantoprazol 2018-10 Yes [id number] 20mg Take 1 Univers e 20 mg EC 2-29 tablet by ity of tablet 00:00: mouth [place] 00 daily. Medical Branch ondansetron 2018-10 Yes [id number] 4mg Take 1 Univers 4 mg tablet 2-29 tablet by ity of 00:00: mouth [place] 00 every 6 Medical (six) Branch hours as needed for Nausea and Vomiting (N/V). pantoprazol 2018-10 Yes [id number] 20mg Take 1 Univers e 20 mg EC 2-29 tablet by ity of tablet 00:00: mouth [place] 00 daily. Medical Branch ondansetron 2018-10 Yes [id number] 4mg Take 1 Univers 4 mg tablet 2-29 tablet by ity of 00:00: mouth [place] 00 every 6 Medical (six) Branch hours as needed for Nausea and Vomiting (N/V). pantoprazol 2018-10 Yes [id number] 20mg Take 1 Univers e 20 mg EC 2-29 tablet by ity of tablet 00:00: mouth [place] 00 daily. Medical Branch ondansetron 2018-10 Yes [id number] 4mg Take 1 [facility] 4 mg tablet 2-29 tablet by ity of 00:00: mouth [place] 00 every 6 Medical (six) Branch hours as needed for Nausea and Vomiting (N/V). pantoprazol 2018-10 Yes [id number] 20mg Take 1 Univers e 20 mg EC 2-29 tablet by ity of tablet 00:00: mouth [place] 00 daily. Medical Branch ondansetron 2018-10 Yes [id number] 4mg Take 1 Univers 4 mg tablet 2-29 tablet by ity of 00:00: mouth [place] 00 every 6 Medical (six) Branch hours as needed for Nausea and Vomiting (N/V). pantoprazol 2018-10 Yes [id number] 20mg Take 1 Univers e 20 mg EC 2-29 tablet by ity of tablet 00:00: mouth [place] 00 daily. Medical Branch ondansetron 2018-10 Yes [id number] 4mg Take 1 Univers 4 mg tablet 2-29 tablet by ity of 00:00: mouth [place] 00 every 6 Medical (six) Branch hours as needed for Nausea and Vomiting (N/V). pantoprazol 2018-10 Yes [id number] 20mg Take 1 Univers e 20 mg EC 2-29 tablet by ity of tablet 00:00: mouth [place] 00 daily. Medical Branch ondansetron 2018-10 Yes [id number] 4mg Take 1 [facility] 4 mg tablet 2-29 tablet by ity of 00:00: mouth [place] 00 every 6 Medical (six) Branch hours as needed for Nausea and Vomiting (N/V). pantoprazol 2018-10 Yes [id number] 20mg Take 1 Univers e 20 mg EC 2-29 tablet by ity of tablet 00:00: mouth [place] 00 daily. Medical Branch ondansetron 2018-10 Yes [id number] 4mg Take 1 [facility] 4 mg tablet 2-29 tablet by ity of 00:00: mouth [place] 00 every 6 Medical (six) Branch hours as needed for Nausea and Vomiting (N/V). pantoprazol 2018-10 Yes [id number] 20mg Take 1 Univers e 20 mg EC 2-29 tablet by ity of tablet 00:00: mouth [place] 00 daily. Medical Branch ondansetron 2018-10 Yes [id number] 4mg Take 1 [facility] 4 mg tablet 2-29 tablet by ity of 00:00: mouth [place] 00 every 6 Medical (six) Branch hours as needed for Nausea and Vomiting (N/V). pantoprazol 2018-10 Yes [id number] 20mg Take 1 Univers e 20 mg EC 2-29 tablet by ity of tablet 00:00: mouth [place] 00 daily. Medical Branch ondansetron 2018-10 2020- No [id number] 4mg Take 1 Univers 4 mg tablet 2-29 04-08 tablet by it y of 00:00: 00:00 mouth [place] 00 :00 every 6 Medical (six) Branch hours as needed for Nausea and Vomiting (N/V). pantoprazol 2018-10- No [id number] 20mg Take 1 Univers e 20 mg EC 2-29 04-08 tablet by ity of tablet 00:00: 00:00 mouth [place] 00 :00 daily. Medical Branch busPIRone 2018-10 Yes [id number] 5mg Take 1 Univers mg tablet 2-23 tablet by ity o f 00:00: mouth 2 00 (two) Medical times Branch daily. busPIRone 2018-10 Yes [id number] 5mg Take 1 Univers mg tablet 2-23 tablet by ity o f 00:00: mouth 2 00 (two) Medical times Branch daily. busPIRone 2018-10 Yes [id number] 5mg Take 1 [facility] mg tablet 2-23 tablet by ity o f 00:00: mouth 2 [place] 00 (two) Medical times Branch daily. busPIRone 2018-10 Yes [id number] 5mg Take 1 [facility] mg tablet 2-23 tablet by ity o f 00:00: mouth 2 [place] 00 (two) Medical times Branch daily. busPIRone 2018-10 Yes [id number] 5mg Take 1 [facility] mg tablet 2-23 tablet by ity o f 00:00: mouth 2 [place] 00 (two) Medical times Branch daily. busPIRone 2018-10 Yes [id number] 5mg Take 1 [facility] mg tablet 2-23 tablet by ity o f 00:00: mouth 2 [place] 00 (two) Medical times Branch daily. busPIRone 5 2018-10 Yes [id number] 5mg Take 1 [facility] mg tablet 2-23 tablet by ity o f 00:00: mouth 2 [place] 00 (two) Medical times Branch daily. busPIRone 5 2018-10 Yes [id number] 5mg Take 1 Univers mg tablet 2-23 tablet by ity o f 00:00: mouth 2 [place] 00 (two) Medical times Branch daily. busPIRone 5 2018-10 2020- No [id number] 5mg Take 1 Univers mg tablet 2-02 12-18 tablet by ity of 00:00: 00:00 mouth 2 [place] 00 :00 (two) Medical times Branch daily. busPIRone 5 2018-10 2020- No [id number] 5mg Take 1 [facility] mg tablet 2-02 12-18 tablet by ity of 00:00: 00:00 mouth 2 [place] 00 :00 (two) Medical times Branch daily. busPIRone 5 2018-10 2020- No [id number] 5mg Take 1 [facility] mg tablet 2-02 12-18 tablet by ity of 00:00: 00:00 mouth 2 [place] 00 :00 (two) Medical times Branch daily. FLUoxetine 2018-10 Yes [id number] 10mg Take 1 [facility] 10 mg 1-22 capsule by ity of capsule 00:00: mouth [place] 00 daily. Medical Branch FLUoxetine 2018-10 Yes [id number] 10mg Take 1 [facility] 10 mg 1-22 capsule by ity of capsule 00:00: mouth [place] 00 daily. Medical Branch FLUoxetine 2018-10 Yes [id number] 10mg Take 1 [facility] 10 mg 1-22 capsule by ity of capsule 00:00: mouth [place] 00 daily. Medical Branch FLUoxetine 2018-10 Yes [id number] 10mg Take 1 [facility] 10 mg 1-22 capsule by ity of capsule 00:00: mouth [place] 00 daily. Medical Branch FLUoxetine 2018-10 Yes [id number] 10mg Take 1 [facility] 10 mg 1-22 capsule by ity of capsule 00:00: mouth [place] 00 daily. Medical Branch FLUoxetine 2018-10 Yes [id number] 10mg Take 1 [facility] 10 mg 1-22 capsule by ity of capsule 00:00: mouth [place] 00 daily. Medical Branch FLUoxetine 2018-10 2020- No [id number] 10mg Take 1 [facility] 10 mg 1-22 02-04 capsule by ity of capsule 00:00: 00:00 mouth [place] 00 :00 daily. Medical Branch PNV Yes [id number] Take 1 [facility] 102-iron-fo 9-24 TAB-CAP/M2 it y of late 00:00: by mouth [place] 1-dss-dha 00 daily. Medical (VITAFOL Branch FE+, WITH DOCUSATE,) 90 mg iron-1 mg -50 mg-200 mg Cap doxylamine- Yes [id number] 1{tbl} Take 1 [facility] pyridoxine, 9-24 tablet by ity of vit B6, 00:00: mouth [place] (DICLEGIS) 00 SEE-INSTRU Med ical 10-10 mg CTIONS. Branch per tablet PNV Yes [id number] Take 1 [facility] 102-iron-fo 9-24 TAB-CAP/M2 it y of late 00:00: by mouth [place] 1-dss-dha 00 daily. Medical (VITAFOL Branch FE+, WITH DOCUSATE,) 90 mg iron-1 mg -50 mg-200 mg Cap doxylamine- Yes [id number] 1{tbl} Take 1 [facility] pyridoxine, 9-24 tablet by ity of vit B6, 00:00: mouth [place] (DICLEGIS) SEE-INSTRU Med ical 10-10 mg CTIONS. Branch per tablet PNV Yes [id number] Take 1 [facility] 102-iron-fo 9-24 TAB-CAP/M2 it y of late 00:00: by mouth [place] 1-dss-dha 00 daily. Medical (VITAFOL Branch FE+, WITH DOCUSATE,) 90 mg iron-1 mg -50 mg-200 mg Cap doxylamine- Yes [id number] 1{tbl} Take 1 [facility] pyridoxine, 9-24 tablet by ity of vit B6, 00:00: mouth [place] (DICLEGIS) 00 SEE-INSTRU Med ical 10-10 mg CTIONS. Branch per tablet PNV Yes [id number] Take 1 [facility] 102-iron-fo 9-24 TAB-CAP/M2 it y of late 00:00: by mouth [place] 1-dss-dha 00 daily. Medical (VITAFOL Branch FE+, WITH DOCUSATE,) 90 mg iron-1 mg -50 mg-200 mg Cap doxylamine- Yes [id number] 1{tbl} Take 1 [facility] pyridoxine, 9-24 tablet by ity of vit B6, 00:00: mouth [place] (DICLEGIS) 00 SEE-INSTRU Med ical 10-10 mg CTIONS. Branch per tablet PNV Yes [id number] Take 1 [facility] 102-iron-fo 9-24 TAB-CAP/M2 it y of late 00:00: by mouth [place] [facility] daily. Medical (VITAFOL Branch FE+, WITH DOCUSATE,) 90 mg iron-1 mg -50 mg-200 mg Cap PNV Yes [id number] Take 1 [facility] 102-iron-fo 9-24 TAB-CAP/M2 it y of late 00:00: by mouth [place] [facility] daily. Medical (VITAFOL Branch FE+, WITH DOCUSATE,) 90 mg iron-1 mg -50 mg-200 mg Cap PNV Yes [id number] Take 1 [facility] 102-iron-fo 9-24 TAB-CAP/M2 it y of late 00:00: by mouth [place] [facility] daily. Medical (VITAFOL Branch FE+, WITH DOCUSATE,) 90 mg iron-1 mg -50 mg-200 mg Cap PNV Yes [id number] Take 1 [facility] 102-iron-fo 9-24 TAB-CAP/M2 it y of late 00:00: by mouth [place] [facility] daily. Medical (VITAFOL Branch FE+, WITH DOCUSATE,) 90 mg iron-1 mg -50 mg-200 mg Cap PNV Yes [id number] Take 1 [facility] 102-iron-fo 9-24 TAB-CAP/M2 it y of late 00:00: by mouth [place] [facility] daily. Medical (VITAFOL Branch FE+, WITH DOCUSATE,) 90 mg iron-1 mg -50 mg-200 mg Cap PNV Yes [id number] Take 1 [facility] 102-iron-fo 9-24 TAB-CAP/M2 it y of late 00:00: by mouth [place] [facility] daily. Medical (VITAFOL Branch FE+, WITH DOCUSATE,) 90 mg iron-1 mg -50 mg-200 mg Cap PNV Yes [id number] Take 1 [facility] 102-iron-fo 9-24 TAB-CAP/M2 it y of late 00:00: by mouth [address] daily. Medical (VITAFOL Branch FE+, WITH DOCUSATE,) 90 mg iron-1 mg -50 mg-200 mg Cap PNV Yes [id number] Take 1 [facility] 102-iron-fo 9-24 TAB-CAP/M2 it y of late 00:00: by mouth [place] [address] daily. Medical (VITAFOL Branch FE+, WITH DOCUSATE,) 90 mg iron-1 mg -50 mg-200 mg Cap PNV Yes [id number] Take 1 [facility] 102-iron-fo 9-24 TAB-CAP/M2 it y of late 00:00: by mouth [place] [address] daily. Medical (VITAFOL Branch FE+, WITH DOCUSATE,) 90 mg iron-1 mg -50 mg-200 mg Cap PNV Yes [id number] Take 1 [facility] 102-iron-fo 9-24 TAB-CAP/M2 it y of late 00:00: by mouth [address] daily. Medical (VITAFOL Branch FE+, WITH DOCUSATE,) 90 mg iron-1 mg -50 mg-200 mg Cap PNV Yes [id number] Take 1 [facility] 102-iron-fo 9-24 TAB-CAP/M2 it y of late 00:00: by mouth [place] [address] daily. Medical (VITAFOL Branch FE+, WITH DOCUSATE,) 90 mg iron-1 mg -50 mg-200 mg Cap PNV Yes [id number] Take 1 [facility] 102-iron-fo 9-24 TAB-CAP/M2 it y of late 00:00: by mouth [place] [address] daily. Medical (VITAFOL Branch FE+, WITH DOCUSATE,) 90 mg iron-1 mg -50 mg-200 mg Cap PNV Yes [id number] Take 1 [facility] 102-iron-fo 9-24 TAB-CAP/M2 it y of late 00:00: by mouth [place] [address]-dss[facility] 00 daily. Medical (VITAFOL Branch FE+, WITH DOCUSATE,) 90 mg iron-1 mg -50 mg-200 mg Cap PNV Yes [id number] Take 1 [facility] 102-iron-fo 9-24 TAB-CAP/M2 it y of late 00:00: by mouth [place] [address] 00 daily. Medical (VITAFOL Branch FE+, WITH DOCUSATE,) 90 mg iron-1 mg -50 mg-200 mg Cap PNV Yes [id number] Take 1 [facility] 102-iron-fo 9-24 TAB-CAP/M2 it y of late 00:00: by mouth [place] [address] 00 daily. Medical (VITAFOL Branch FE+, WITH DOCUSATE,) 90 mg iron-1 mg -50 mg-200 mg Cap PNV Yes [id number] Take 1 [facility] 102-iron-fo 9-24 TAB-CAP/M2 it y of late 00:00: by mouth [place] [address]-dss[facility] daily. Medical (VITAFOL Branch FE+, WITH DOCUSATE,) 90 mg iron-1 mg -50 mg-200 mg Cap PNV Yes [id number] Take 1 [facility] 102-iron-fo 9-24 TAB-CAP/M2 it y of late 00:00: by mouth [address] daily. Medical (VITAFOL Branch FE+, WITH DOCUSATE,) 90 mg iron-1 mg -50 mg-200 mg Cap PNV Yes [id number] Take 1 [facility] 102-iron-fo 9-24 TAB-CAP/M2 it y of late 00:00: by mouth [place] [address] daily. Medical (VITAFOL Branch FE+, WITH DOCUSATE,) 90 mg iron-1 mg -50 mg-200 mg Cap PNV Yes [id number] Take 1 [facility] 102-iron-fo 9-24 TAB-CAP/M2 it y of late 00:00: by mouth [place] [address] 00 daily. Medical (VITAFOL Branch FE+, WITH DOCUSATE,) 90 mg iron-1 mg -50 mg-200 mg Cap PNV Yes [id number] Take 1 [facility] 102-iron-fo 9-24 TAB-CAP/M2 it y of late 00:00: by mouth [place] [address]-dss-[facility] 00 daily. Medical (VITAFOL Branch FE+, WITH DOCUSATE,) 90 mg iron-1 mg -50 mg-200 mg Cap PNV Yes [id number] Take 1 [facility] 102-iron-fo 9-24 TAB-CAP/M2 it y of late 00:00: by mouth [place] [address] 00 daily. Medical (VITAFOL Branch FE+, WITH DOCUSATE,) 90 mg iron-1 mg -50 mg-200 mg Cap PNV Yes [id number] Take 1 [facility] 102-iron-fo 9-24 TAB-CAP/M2 it y of late 00:00: by mouth [place] [address] daily. Medical (VITAFOL Branch FE+, WITH DOCUSATE,) 90 mg iron-1 mg -50 mg-200 mg Cap PNV Yes [id number] Take 1 [facility] 102-iron-fo 9-24 TAB-CAP/M2 it y of late 00:00: by mouth [place] [address]-dss-dha daily. Medical (VITAFOL Branch FE+, WITH DOCUSATE,) 90 mg iron-1 mg -50 mg-200 mg Cap PNV Yes [id number] Take 1 [facility] 102-iron-fo 9-24 TAB-CAP/M2 it y of late 00:00: by mouth [place] [address] daily. Medical (VITAFOL Branch FE+, WITH DOCUSATE,) 90 mg iron-1 mg -50 mg-200 mg Cap PNV Yes [id number] Take 1 [facility] 102-iron-fo 9-24 TAB-CAP/M2 it y of late 00:00: by mouth [place] [address] daily. Medical (VITAFOL Branch FE+, WITH DOCUSATE,) 90 mg iron-1 mg -50 mg-200 mg Cap PNV Yes [id number] Take 1 [facility] 102-iron-fo 9-24 TAB-CAP/M2 it y of late 00:00: by mouth [place] [address] daily. Medical (VITAFOL Branch FE+, WITH DOCUSATE,) 90 mg iron-1 mg -50 mg-200 mg Cap PNV Yes [id number] Take 1 [facility] 102-iron-fo 9-24 TAB-CAP/M2 it y of late 00:00: by mouth [place] [address]-dss-[facility] 00 daily. Medical (VITAFOL Branch FE+, WITH DOCUSATE,) 90 mg iron-1 mg -50 mg-200 mg Cap PNV 2020- No [id number] Take 1 Univer s 102-iron-fo 07-03 TAB-CAP/M2 i ty of late 00:00: 00:00 by mouth [place] 1-dss-dha 00 :00 daily. Medical (VITAFOL Branch FE+, WITH DOCUSATE,) 90 mg iron-1 mg -50 mg-200 mg Cap PNV 2020- No [id number] Take 1 Univer s 102-iron-fo 07-03 TAB-CAP/M2 i ty of late 00:00: 00:00 by mouth [place] 1-dss-dha 00 :00 daily. Medical (VITAFOL Branch FE+, WITH DOCUSATE,) 90 mg iron-1 mg -50 mg-200 mg Cap doxylamine- 2020- No [id number] 1{tbl} Take 1 [facility] pyridoxine, 07-03 tablet by it y of vit B6, 00:00: 00:00 mouth [place] (DICLEGIS) 00 :00 SEE-INSTRU Med ical 10-10 mg CTIONS. Branch per tablet AMETHIA Yes Take 1 Univers 0.15 mg-30 7-28 tablet ity of mcg (84)/10 00:00: [place] m[place] (7[place] per 00 once daily Me dical tablet at the Branch same time. Flonase Flonase 2017-10 Yes Soledad Gardner [address] [facility]-10 each [facility] DiazePAM 2 DiazePAM 2 2017-10 Yes JOEL 1 hour PO Univers MG Oral MG Oral 1-16 LI-DERIAN before MRI ity of Tablet Tablet 00:00: [place] [facility] Phys[facility] No known No Univers medications ity of [facility] [place] No known No Univers medications ity of [facility] [place] No known No Univers medications ity of [facility] [place] No known No Univers medications ity of [facility] [place] No known No Univers medications ity of [facility] [place] Tylenol Tylenol Yes Univers with with ity of Codeine #3 Codeine #3 [place] as TABS TABS Physici ans [place] Yes Soledad Gardner not [facility] Naproxen Naproxen Yes Univers TABS TABS ity of [place] Physici ans Immunizations Ordered Filled Immunization Date Status Comments Sourc e Immunization Name Name TDAP (ADACEL) 2019-12-03 Completed University of VACCINE 00:00:00 [place] [facility] TDAP (ADACEL) 2019-12-03 Completed University of VACCINE 00:00:00 [place] [facility] TDAP (ADACEL) 2019-12-03 Completed University of VACCINE 00:00:00 [place] [facility] TDAP (ADACEL) 2019-12-03 Completed University of VACCINE 00:00:00 [place] [facility] TDAP (ADACEL) 2019-12-03 Completed University of VACCINE 00:00:00 [place] [facility] TDAP (ADACEL) 2019-12-03 Completed University of VACCINE 00:00:00 [place] [facility] TDAP (ADACEL) 2019-12-03 Completed University of VACCINE 00:00:00 [place] [facility] TDAP (ADACEL) 2019-12-03 Completed University of VACCINE 00:00:00 [place] [facility] TDAP (ADACEL) 2019-12-03 Completed University of VACCINE 00:00:00 [place] [facility] TDAP (ADACEL) 2019-12-03 Completed University of VACCINE 00:00:00 [place] [facility] TDAP (ADACEL) 2019-12-03 Completed University of VACCINE 00:00:00 [place] [facility] TDAP (ADACEL) 2019-12-03 Completed University of VACCINE 00:00:00 [place] [facility] TDAP (ADACEL) 2019-12-03 Completed University of VACCINE 00:00:00 [place] [facility] TDAP (ADACEL) 2019-12-03 Completed University of VACCINE 00:00:00 [place] [facility] TDAP (ADACEL) 2019-12-03 Completed University of VACCINE 00:00:00 [place] [facility] TDAP (ADACEL) 2019-12-03 Completed University of VACCINE 00:00:00 [place] [facility] TDAP (ADACEL) 2019-12-03 Completed University of VACCINE 00:00:00 [place] [facility] TDAP (ADACEL) 2019-12-03 Completed University of VACCINE 00:00:00 [place] [facility] TDAP (ADACEL) 2019-12-03 Completed University of VACCINE 00:00:00 [place] [facility] TDAP (ADACEL) 2019-12-03 Completed University of VACCINE 00:00:00 [place] [facility] TDAP (ADACEL) 2019-12-03 Completed University of VACCINE 00:00:00 [place] [facility] TDAP (ADACEL) 2019-12-03 Completed University of VACCINE 00:00:00 [place] [facility] TDAP (ADACEL) 2019-12-03 Completed University of VACCINE 00:00:00 [place] [facility] TDAP (ADACEL) 2019-12-03 Completed University of VACCINE 00:00:00 [place] [facility] TDAP (ADACEL) 2019-12-03 Completed University of VACCINE 00:00:00 [place] [facility] TDAP (ADACEL) 2019-12-03 Completed University of VACCINE 00:00:00 [place] [facility] TDAP (ADACEL) 2019-12-03 Completed University of VACCINE 00:00:00 [place] [facility] TDAP (ADACEL) 2019-12-03 Completed University of VACCINE 00:00:00 [place] [facility] TDAP (ADACEL) 2019-12-03 Completed University of VACCINE 00:00:00 [facility] [place] [facility] Branch TDAP (ADACEL) 2019-12-03 Completed University of VACCINE 00:00:00 [place] [facility] TDAP (ADACEL) 2019-12-03 Completed University of VACCINE 00:00:00 [place] [facility] TDAP (ADACEL) 2019-12-03 Completed University of VACCINE 00:00:00 [place] [facility] TDAP (ADACEL) 2019-12-03 Completed University of VACCINE 00:00:00 [place] [facility] TDAP (ADACEL) 2019-12-03 Completed University of VACCINE 00:00:00 [facility] [place] [facility] Branch TDAP (ADACEL) 2019-12-03 Completed University of VACCINE 00:00:00 [place] [facility] TDAP (ADACEL) 2019-12-03 Completed University of VACCINE 00:00:00 [place] [facility] TDAP (ADACEL) 2019-12-03 Completed University of VACCINE 00:00:00 [place] [facility] TDAP (ADACEL) 2019-12-03 Completed University of VACCINE 00:00:00 [place] [facility] TDAP (ADACEL) 2019-12-03 Completed University of VACCINE 00:00:00 [place] [facility] TDAP (ADACEL) 2019-12-03 Completed University of VACCINE 00:00:00 [place] [facility] TDAP (ADACEL) 2019-12-03 Completed University of VACCINE 00:00:00 [place] [facility] TDAP (ADACEL) 2019-12-03 Completed University of VACCINE 00:00:00 [facility] [place] [facility] Branch TDAP (ADACEL) 2019-12-03 Completed University of VACCINE 00:00:00 [place] [facility] TDAP (ADACEL) 2019-12-03 Completed University of VACCINE 00:00:00 [place] [facility] TDAP (ADACEL) 2019-12-03 Completed University of VACCINE 00:00:00 [facility] [place] [facility] Branch TDAP (ADACEL) 2019-12-03 Completed University of VACCINE 00:00:00 [facility] [place] [facility] Branch TDAP (ADACEL) 2019-12-03 Completed University of VACCINE 00:00:00 [facility] [place] [facility] Branch TDAP (ADACEL) 2019-12-03 Completed University of VACCINE 00:00:00 [facility] [place] [facility] Branch TDAP (ADACEL) 2019-12-03 Completed University of VACCINE 00:00:00 [facility] [place] [facility] Branch TDAP (ADACEL) 2019-12-03 Completed University of VACCINE 00:00:00 [facility] [place] [facility] Branch TDAP (ADACEL) 2019-12-03 Completed University of VACCINE 00:00:00 [facility] [place] [facility] Branch TDAP (ADACEL) 2019-12-03 Completed University of VACCINE 00:00:00 [facility] [place] [facility] Branch TDAP (ADACEL) 2019-12-03 Completed University of VACCINE 00:00:00 [facility] [place] [facility] Branch TDAP (ADACEL) 2019-12-03 Completed University of VACCINE 00:00:00 [facility] [place] [facility] Branch TDAP (ADACEL) 2019-12-03 Completed University of VACCINE 00:00:00 [facility] [place] [facility] Branch TDAP (ADACEL) 2019-12-03 Completed University of VACCINE 00:00:00 [facility] [place] [facility] Branch TDAP (ADACEL) 2019-12-03 Completed University of VACCINE 00:00:00 [facility] [place] [facility] Branch TDAP (ADACEL) 2019-12-03 Completed University of VACCINE 00:00:00 [facility] [place] [facility] Branch TDAP (ADACEL) 2019-12-03 Completed University of VACCINE 00:00:00 [facility] [place] [facility] Branch TDAP (ADACEL) 2019-12-03 Completed University of VACCINE 00:00:00 [facility] [place] [facility] Branch TDAP (ADACEL) 2019-12-03 Completed University of VACCINE 00:00:00 [facility] [place] Influenza Virus 2019-08-02 Completed Universit y of Vaccine Quad .5 mL 00:00:00 [facility] [place] [facility] IM 6+ MO Branch Influenza Virus 2019-08-02 Completed Universit y of Vaccine Quad .5 mL 00:00:00 [place] [facility] IM 6+ MO Branch Influenza Virus 2019-08-02 Completed Universit y of Vaccine Quad .5 mL 00:00:00 [place] [facility] IM 6+ MO Branch Influenza Virus 2019-08-02 Completed Universit y of Vaccine Quad .5 mL 00:00:00 [place] [facility] IM 6+ MO Branch Influenza Virus 2019-08-02 Completed Universit y of Vaccine Quad .5 mL 00:00:00 [place] [facility] IM 6+ MO Branch Influenza Virus 2019-08-02 Completed Universit y of Vaccine Quad .5 mL 00:00:00 [place] [facility] IM 6+ MO Branch Influenza Virus 2019-08-02 Completed Universit y of Vaccine Quad .5 mL 00:00:00 [place] [facility] IM 6+ MO Branch Influenza Virus 2019-08-02 Completed Universit y of Vaccine Quad .5 mL 00:00:00 [place] [facility] IM 6+ MO Branch Influenza Virus 2019-08-02 Completed Universit y of Vaccine Quad .5 mL 00:00:00 [place] [facility] IM 6+ MO Branch Influenza Virus 2019-08-02 Completed Universit y of Vaccine Quad .5 mL 00:00:00 [place] [facility] IM 6+ MO Branch Influenza Virus 2019-08-02 Completed Universit y of Vaccine Quad .5 mL 00:00:00 [place] [facility] IM 6+ MO Branch Influenza Virus 2019-08-02 Completed Universit y of Vaccine Quad .5 mL 00:00:00 [place] [facility] IM 6+ MO Branch Influenza Virus 2019-08-02 Completed Universit y of Vaccine Quad .5 mL 00:00:00 [place] [facility] 6+ MO Branch Influenza Virus 2019-08-02 Completed Universit y of Vaccine Quad .5 mL 00:00:00 [place] [facility] IM 6+ MO Branch Influenza Virus 2019-08-02 Completed Universit y of Vaccine Quad .5 mL 00:00:00 [place] [facility] IM 6+ MO Branch Influenza Virus 2019-08-02 Completed Universit y of Vaccine Quad .5 mL 00:00:00 [place] [facility] IM 6+ MO Branch Influenza Virus 2019-08-02 Completed Universit y of Vaccine Quad .5 mL 00:00:00 [place] [facility] IM 6+ MO Branch Influenza Virus 2019-08-02 Completed Universit y of Vaccine Quad .5 mL 00:00:00 [place] [facility] IM 6+ MO Branch Influenza Virus 2019-08-02 Completed Universit y of Vaccine Quad .5 mL 00:00:00 [place] [facility] IM 6+ MO Branch Influenza Virus 2019-08-02 Completed Universit y of Vaccine Quad .5 mL 00:00:00 [place] [facility] IM 6+ MO Branch Influenza Virus 2019-08-02 Completed Universit y of Vaccine Quad .5 mL 00:00:00 [place] [facility] IM 6+ MO Branch Influenza Virus 2019-08-02 Completed Universit y of Vaccine Quad .5 mL 00:00:00 [place] [facility] IM 6+ MO Branch Influenza Virus 2019-08-02 Completed Universit y of Vaccine Quad .5 mL 00:00:00 [place] [facility] IM 6+ MO Branch Influenza Virus 2019-08-02 Completed Universit y of Vaccine Quad .5 mL 00:00:00 [place] [facility] IM 6+ MO Branch Influenza Virus 2019-08-02 Completed Universit y of Vaccine Quad .5 mL 00:00:00 [place] [facility] IM 6+ MO Branch Influenza Virus 2019-08-02 Completed Universit y of Vaccine Quad .5 mL 00:00:00 [place] [facility] IM 6+ MO Branch Influenza Virus 2019-08-02 Completed Universit y of Vaccine Quad .5 mL 00:00:00 [place] [facility] IM 6+ MO Branch Influenza Virus 2019-08-02 Completed Universit y of Vaccine Quad .5 mL 00:00:00 [place] [facility] IM 6+ MO Branch Influenza Virus 2019-08-02 Completed Universit y of Vaccine Quad .5 mL 00:00:00 [place] [facility] IM 6+ MO Branch Influenza Virus 2019-08-02 Completed Universit y of Vaccine Quad .5 mL 00:00:00 [place] [facility] IM 6+ MO Branch Influenza Virus 2019-08-02 Completed Universit y of Vaccine Quad .5 mL 00:00:00 [place] [facility] IM 6+ MO Branch Influenza Virus 2019-08-02 Completed Universit y of Vaccine Quad .5 mL 00:00:00 [place] [facility] IM 6+ MO Branch Influenza Virus 2019-08-02 Completed Universit y of Vaccine Quad .5 mL 00:00:00 [place] [facility] IM 6+ MO Branch Influenza Virus 2019-08-02 Completed Universit y of Vaccine Quad .5 mL 00:00:00 [place] [facility] IM 6+ MO Branch Influenza Virus 2019-08-02 Completed Universit y of Vaccine Quad .5 mL 00:00:00 [place] [facility] IM 6+ MO Branch Influenza Virus 2019-08-02 Completed Universit y of Vaccine Quad .5 mL 00:00:00 [place] [facility] IM 6+ MO Branch Influenza Virus 2019-08-02 Completed Universit y of Vaccine Quad .5 mL 00:00:00 [place] [facility] IM 6+ MO Branch Influenza Virus 2019-08-02 Completed Universit y of Vaccine Quad .5 mL 00:00:00 [place] [facility] IM 6+ MO Branch Influenza Virus 2019-08-02 Completed Universit y of Vaccine Quad .5 mL 00:00:00 [place] [facility] IM 6+ MO Branch Influenza Virus 2019-08-02 Completed Universit y of Vaccine Quad .5 mL 00:00:00 [place] [facility] IM 6+ MO Branch Influenza Virus 2019-08-02 Completed Universit y of Vaccine Quad .5 mL 00:00:00 [place] [facility] IM 6+ MO Branch Influenza Virus 2019-08-02 Completed Universit y of Vaccine Quad .5 mL 00:00:00 [place] [facility] IM 6+ MO Branch Influenza Virus 2019-08-02 Completed Universit y of Vaccine Quad .5 mL 00:00:00 [place] [facility] IM 6+ MO Branch Influenza Virus 2019-08-02 Completed Universit y of Vaccine Quad .5 mL 00:00:00 [place] [facility] IM 6+ MO Branch Influenza Virus 2019-08-02 Completed Universit y of Vaccine Quad .5 mL 00:00:00 [place] [facility] IM 6+ MO Branch Influenza Virus 2019-08-02 Completed Universit y of Vaccine Quad .5 mL 00:00:00 [place] [facility] IM 6+ MO Branch Influenza Virus 2019-08-02 Completed Universit y of Vaccine Quad .5 mL 00:00:00 [place] [facility] IM 6+ MO Branch Influenza Virus 2019-08-02 Completed Universit y of Vaccine Quad .5 mL 00:00:00 [place] [facility] IM 6+ MO Branch Influenza Virus 2019-08-02 Completed Universit y of Vaccine Quad .5 mL 00:00:00 [place] [facility] IM 6+ MO Branch Influenza Virus 2019-08-02 Completed Universit y of Vaccine Quad .5 mL 00:00:00 [place] [facility] IM 6+ MO Branch Influenza Virus 2019-08-02 Completed Universit y of Vaccine Quad .5 mL 00:00:00 [place] [facility] IM 6+ MO Branch Influenza Virus 2019-08-02 Completed Universit y of Vaccine Quad .5 mL 00:00:00 [place] [facility] IM 6+ MO Branch Influenza Virus 2019-08-02 Completed Universit y of Vaccine Quad .5 mL 00:00:00 [place] [facility] IM 6+ MO Branch Influenza Virus 2019-08-02 Completed Universit y of Vaccine Quad .5 mL 00:00:00 [place] [facility] IM 6+ MO Branch Influenza Virus 2019-08-02 Completed Universit y of Vaccine Quad .5 mL 00:00:00 [place] [facility] IM 6+ MO Branch Influenza Virus 2019-08-02 Completed Universit y of Vaccine Quad .5 mL 00:00:00 [place] [facility] IM 6+ MO Branch Influenza Virus 2019-08-02 Completed Universit y of Vaccine Quad .5 mL 00:00:00 [place] [facility] IM 6+ MO Branch Influenza Virus 2019-08-02 Completed Universit y of Vaccine Quad .5 mL 00:00:00 [place] [facility] IM 6+ MO Branch Influenza Virus 2019-08-02 Completed Universit y of Vaccine Quad .5 mL 00:00:00 [place] [facility] IM 6+ MO Branch Influenza Virus 2019-08-02 Completed Universit y of Vaccine Quad .5 mL 00:00:00 [place] [facility] IM 6+ MO Branch Influenza Virus 2019-08-02 Completed Universit y of Vaccine Quad .5 mL 00:00:00 [place] [facility] IM 6+ MO Branch Influenza Virus 2019-08-02 Completed Universit y of Vaccine Quad .5 mL 00:00:00 [place] [facility] IM 6+ MO Branch Influenza Virus 2019-08-02 Completed Universit y of Vaccine Quad .5 mL 00:00:00 [place] [facility] IM 6+ MO Branch Influenza Virus 2019-08-02 Completed Universit y of Vaccine Quad .5 mL 00:00:00 [place] [facility] IM 6+ MO Branch Influenza Virus 2019-08-02 Completed Universit y of Vaccine Quad .5 mL 00:00:00 [place] [facility] IM 6+ MO Branch Influenza Virus 2019-08-02 Completed Universit y of Vaccine Quad .5 mL 00:00:00 [place] [facility] IM 6+ MO Branch Influenza Virus 2019-08-02 Completed Universit y of Vaccine Quad .5 mL 00:00:00 [place] [facility] IM 6+ MO Branch Influenza Virus 2019-08-02 Completed Universit y of Vaccine Quad .5 mL 00:00:00 [place] [facility] IM 6+ MO Branch Influenza Virus 2019-08-02 Completed Universit y of Vaccine Quad .5 mL 00:00:00 [place] [facility] IM 6+ MO Branch Influenza Virus 2019-08-02 Completed Universit y of Vaccine Quad .5 mL 00:00:00 [place] [facility] IM 6+ MO Branch Influenza Virus 2019-08-02 Completed Universit y of Vaccine Quad .5 mL 00:00:00 [place] [facility] IM 6+ MO Branch Influenza Virus 2019-08-02 Completed Universit y of Vaccine Quad .5 mL 00:00:00 [place] [facility] IM 6+ MO Branch Influenza Virus 2019-08-02 Completed Universit y of Vaccine Quad .5 mL 00:00:00 [place] [facility] IM 6+ MO Branch Influenza Virus 2019-08-02 Completed Universit y of Vaccine Quad .5 mL 00:00:00 [place] [facility] IM 6+ MO Branch Influenza Virus 2019-08-02 Completed Universit y of Vaccine Quad .5 mL 00:00:00 [facility] [place] [facility] IM 6+ MO Branch Vital Signs Vital Name Observation Time Observation Value Comments Source Systolic blood 2021-10-15 18:22:00 113 mm[Hg] Univer sity of pressure [facility] [place] Diastolic blood 2021-10-15 18:22:00 79 mm[Hg] Unive rsity of [facility] Heart rate 2021-10-15 18:22:00 87 /min Universi ty of [facility] Body temperature 2021-10-15 18:22:00 37.5 Silvina [facility] Respiratory rate 2021-10-15 18:22:00 18 /min [facility] height 2021-10-15 18:22:00 165.1 cm [facility]i ty of [facility] Body weight 2021-10-15 18:22:00 108.863 kg Universi ty of [facility] BMI 2021-10-15 18:22:00 39.94 kg/m2 Universi ty [facility] Oxygen saturation in 2021-10-15 18:22:00 98 /min [facility] Arterial blood by [facility] Pulse oximetry Branch Body height 2021-07-30 00:38:00 165.1 cm [facility] Body weight 2021-07-30 00:38:00 116.484 kg Universi ty of [facility] BMI 2021-07-30 00:38:00 42.73 kg/m2 Universi ty of [facility] Systolic blood 2021-07-30 00:37:00 124 mm[Hg] Univer sity of pressure [facility] Diastolic blood 2021-07-30 00:37:00 71 mm[Hg] Unive rsity of pressure [facility] Heart rate 2021-07-30 00:37:00 86 /min [facility] Body temperature 2021-07-30 00:37:00 37.44 Silvina Univ ersity [facility] Respiratory rate 2021-07-30 00:37:00 18 /min Univ ersity [facility] Oxygen saturation in 2021-07-30 00:37:00 99 /min University of Arterial blood by [facility] Pulse oximetry Branch Systolic blood 2021-07-14 22:27:00 113 mm[Hg] Univer sity of pressure [facility] Diastolic blood 2021-07-14 22:27:00 73 mm[Hg] Unive rsity of pressure [facility] Heart rate 2021-07-14 22:27:00 96 /min [facility] Body temperature 2021-07-14 22:27:00 36.78 Silvina Univ ersity [facility] Respiratory rate 2021-07-14 22:27:00 18 /min Univ ersity [facility] Body height 2021-07-14 22:27:00 165.1 cm [facility] Body weight 2021-07-14 22:27:00 112.946 kg [facility] BMI 2021-07-14 22:27:00 41.44 kg/m2 [facility] Oxygen saturation in 2021-07-14 22:27:00 98 /min University of Arterial blood by [facility] Pulse oxim[facility] Branch Body temperature 2021-06-30 18:04:00 36.22 Silvina Univ ersity [facility] Body height 2021-06-30 18:04:00 165.1 cm [facility] Body weight 2021-06-30 18:04:00 113.309 kg [facility] BMI 2021-06-30 18:04:00 41.57 kg/m2 [facility] Heart rate 2021-06-21 21:04:00 87 /min [facility] Respiratory rate 2021-06-21 21:04:00 18 /min Univ ers[facility] Oxygen saturation in 2021-06-21 21:04:00 99 /min University of Arterial blood by [facility] Pulse oxim[facility] Branch Systolic blood 2021-04-12 17:04:00 104 mm[Hg] Univer sity of pressure [facility] Diastolic blood 2021-04-12 17:04:00 66 mm[Hg] Unive rsity of pressure [facility] Heart rate 2021-04-12 17:04:00 85 /min [facility] Body temperature 2021-04-12 17:04:00 36.89 Silvina Univ ers[facility] Respiratory rate 2021-04-12 17:04:00 16 /min Univ ers[facility] Body height 2021-04-12 17:04:00 165.1 cm [facility] Body weight 2021-04-12 17:04:00 110.678 kg [facility] BMI 2021-04-12 17:04:00 40.60 kg/m2 [facility] ty of [facility] Oxygen saturation in 2021-04-12 17:04:00 99 /min University of Arterial blood by [facility] Pulse oxim[facility] Branch Systolic blood 2020-09-30 16:45:00 117 mm[Hg] Univer sity of pressure [facility] Diastolic blood 2020-09-30 16:45:00 83 mm[Hg] Unive rsity of pressure [facility] Heart rate 2020-09-30 16:45:00 87 /min [facility] Body temperature 2020-09-30 16:45:00 36.67 Silvina Univ [facility] Respiratory rate 2020-09-30 16:45:00 18 /min Univ ers[facility] Body height 2020-09-30 16:45:00 165.1 cm [facility] Body weight 2020-09-30 16:45:00 110.768 kg [facility] BMI 2020-09-30 16:45:00 40.64 kg/m2 [facility] Systolic blood 2020-09-30 16:45:00 117 mm[Hg] Univer sity of pressure [facility] Diastolic blood 2020-09-30 16:45:00 83 mm[Hg] Unive rsity of pressure [facility] Heart rate 2020-09-30 16:45:00 87 /min Universi ty of [facility] Body temperature 2020-09-30 16:45:00 36.67 Silvina Univ ers[facility] Respiratory rate 2020-09-30 16:45:00 18 /min Univ ersity of [facility] Body height 2020-09-30 16:45:00 165.1 cm [facility]i ty of [facility] Body weight 2020-09-30 16:45:00 110.768 kg [facility] BMI 2020-09-30 16:45:00 40.64 kg/m2 [facility]i ty of [facility] Systolic blood 2020-06-11 15:39:00 113 mm[Hg] Univer sity of pressure [facility] Diastolic blood 2020-06-11 15:39:00 74 mm[Hg] Unive rsity of pressure [facility] Heart rate 2020-06-11 15:39:00 83 /min Universi ty of [facility] Body temperature 2020-06-11 15:39:00 36.78 Silvina Univ ersity of [facility] Respiratory rate 2020-06-11 15:39:00 18 /min Univ ersity of [facility] Body height 2020-06-11 15:39:00 165.1 cm [facility]i ty of [facility] Body weight 2020-06-11 15:39:00 108.41 kg [facility]i ty of [facility] BMI 2020-06-11 15:39:00 39.77 kg/m2 [facility]i ty of [facility] Body height 2020-02-29 14:27:00 165.1 cm [facility]i ty of [facility] Systolic blood 2020-02-01 12:16:00 108 mm[Hg] Univer sity of pressure [facility] Diastolic blood 2020-02-01 12:16:00 69 mm[Hg] Unive rsity of pressure [facility] Heart rate 2020-02-01 12:16:00 69 /min Universi ty of [facility] Body temperature 2020-02-01 12:16:00 36.5 Silvina Univ ersity of [facility] Respiratory rate 2020-02-01 12:16:00 18 /min Univ ersity of [facility] Oxygen saturation in 2020-02-01 05:00:00 99 /min University of Arterial blood by [facility] Pulse oxim[facility] Branch Body height 2020-01-30 17:40:00 165.1 cm [facility]i ty of [facility] Body weight 2020-01-30 17:40:00 115.214 kg Universi ty of [facility] BMI 2020-01-30 17:40:00 42.27 kg/m2 [facility] Systolic blood 2020-01-30 14:19:00 116 mm[Hg] Univer sity of pressure [facility] Diastolic blood 2020-01-30 14:19:00 78 mm[Hg] Unive rsity of pressure [facility] Heart rate 2020-01-30 14:19:00 80 /min [facility] Body temperature 2020-01-30 14:19:00 36.5 Silvina Univ ers[facility] Respiratory rate 2020-01-30 14:19:00 18 /min Univ [facility] Body height 2020-01-30 14:19:00 165.1 cm [facility] Body weight 2020-01-30 14:19:00 115.395 kg [facility] BMI 2020-01-30 14:19:00 42.33 kg/m2 [facility] Systolic blood 2020-01-24 19:04:00 119 mm[Hg] Univer sity of pressure [facility] Diastolic blood 2020-01-24 19:04:00 73 mm[Hg] Unive rsity of pressure [facility] Heart rate 2020-01-24 19:04:00 90 /min [facility] Body temperature 2020-01-24 19:04:00 36.72 Silvina Univ [facility] Respiratory rate 2020-01-24 19:04:00 18 /min Univ [facility] Body height 2020-01-24 19:04:00 165.1 cm [facility] Body weight 2020-01-24 19:04:00 114.76 kg [facility] BMI 2020-01-24 19:04:00 42.10 kg/m2 [facility] Systolic blood 2020-01-23 17:18:00 117 mm[Hg] Univer sity of pressure [facility] Diastolic blood 2020-01-23 17:18:00 64 mm[Hg] Unive rsity of pressure [facility] Heart rate 2020-01-23 17:18:00 91 /min [facility] Body temperature 2020-01-23 17:18:00 36.89 Silvina Univ [facility] Respiratory rate 2020-01-23 17:18:00 18 /min Univ ersity of [facility] Body height 2020-01-23 17:18:00 165.1 cm [facility] Body weight 2020-01-23 17:18:00 114.306 kg [facility] BMI 2020-01-23 17:18:00 41.93 kg/m2 [facility]i ty of [facility] Oxygen saturation in 2020-01-23 17:18:00 99 /min University of Arterial blood by [facility] Pulse oximetry Branch Systolic blood 2020-01-16 20:44:00 115 mm[Hg] Univer sity of pressure [facility] Diastolic blood 2020-01-16 20:44:00 69 mm[Hg] Unive rsity of pressure [facility] Heart rate 2020-01-16 20:44:00 86 /min Universi ty of [facility] Body temperature 2020-01-16 20:44:00 36.72 Silvina Univ ersity of [facility] Respiratory rate 2020-01-16 20:44:00 18 /min Univ ersity of [facility] Body height 2020-01-16 20:44:00 165.1 cm Universi ty of [facility] Body weight 2020-01-16 20:44:00 114.306 kg Universi ty of [facility] BMI 2020-01-16 20:44:00 41.93 kg/m2 Universi ty of [facility] Systolic blood 2019-12-28 13:19:00 117 mm[Hg] Univer sity of pressure [facility] Diastolic blood 2019-12-28 13:19:00 80 mm[Hg] Unive rsity of pressure [facility] Heart rate 2019-12-28 13:19:00 105 /min Universi ty of [facility] Body temperature 2019-12-28 13:19:00 37 Silvina Univ ersity of [facility] Respiratory rate 2019-12-28 13:19:00 18 /min Univ ersity of [facility] Body height 2019-12-28 13:19:00 165.1 cm Universi ty of [facility] Body weight 2019-12-28 13:19:00 112.492 kg Universi ty of [facility] BMI 2019-12-28 13:19:00 41.27 kg/m2 Universi ty of [facility] Systolic blood 2019-12-13 22:23:00 111 mm[Hg] Univer sity of pressure [facility] Diastolic blood 2019-12-13 22:23:00 69 mm[Hg] Unive rsity of pressure [facility] Heart rate 2019-12-13 22:23:00 79 /min [facility] Body temperature 2019-12-13 22:23:00 36.83 Silvina Univ [facility] Respiratory rate 2019-12-13 22:23:00 18 /min Univ [facility] Body height 2019-12-13 22:23:00 165.1 cm [facility] Body weight 2019-12-13 22:23:00 110.678 kg [facility] BMI 2019-12-13 22:23:00 40.60 kg/m2 [facility] Systolic blood 2019-12-03 19:12:00 113 mm[Hg] Univer sity of pressure [facility] Diastolic blood 2019-12-03 19:12:00 68 mm[Hg] Unive rsity of pressure [facility] Heart rate 2019-12-03 19:12:00 89 /min [facility] Body temperature 2019-12-03 19:12:00 36.83 Silvina Univ [facility] Respiratory rate 2019-12-03 19:12:00 18 /min Univ [facility] Body height 2019-12-03 19:12:00 165.1 cm [facility] Body weight 2019-12-03 19:12:00 111.131 kg [facility] BMI 2019-12-03 19:12:00 40.77 kg/m2 [facility] Systolic blood 2019-11-05 20:31:00 110 mm[Hg] Univer sity of pressure [facility] Diastolic blood 2019-11-05 20:31:00 73 mm[Hg] Unive rsity of pressure [facility] Heart rate 2019-11-05 20:31:00 89 /min [facility] Body temperature 2019-11-05 20:31:00 36.72 Silvina Univ [facility] Respiratory rate 2019-11-05 20:31:00 18 /min Univ [facility] Body height 2019-11-05 20:31:00 165.1 cm [facility] Body weight 2019-11-05 20:31:00 108.41 kg [facility] BMI 2019-11-05 20:31:00 39.77 kg/m2 [facility] Systolic blood 2019-11-03 20:47:00 127 mm[Hg] Univer sity of pressure [facility] Diastolic blood 2019-11-03 20:47:00 72 mm[Hg] Unive rsity of pressure [facility] Body temperature 2019-11-03 20:45:30 36.78 Silvina Univ [facility] Respiratory rate 2019-11-03 20:45:30 19 /min Univ [facility] Heart rate 2019-11-03 20:44:00 94 /min Universi ty of [facility] Oxygen saturation in 2019-11-03 20:44:00 100 /min University of Arterial blood by [place] [employer] [facility] P[facility] Heart rate 2019-11-01 14:47:00 85 /min [facility] Systolic blood 2019-11-01 14:32:00 112 mm[Hg] Univer sity of pressure [facility] Diastolic blood 2019-11-01 14:32:00 66 mm[Hg] Unive rsity of pressure [facility] Body temperature 2019-11-01 14:32:00 36.78 Silvina Univ ers[facility] Respiratory rate 2019-11-01 14:32:00 18 /min Univ [facility] Body height 2019-11-01 14:32:00 165.1 cm [facility] Body weight 2019-11-01 14:32:00 107.775 kg [facility] BMI 2019-11-01 14:32:00 39.54 kg/m2 [facility] Oxygen saturation in 2019-11-01 14:32:00 100 /min University of Arterial blood by [employer] Pulse oxim[facility] Branch Systolic blood 2019-06-15 15:15:00 109 mm[Hg] Univer sity of pressure [facility] Diastolic blood 2019-06-15 15:15:00 70 mm[Hg] Unive rsity of pressure [facility] Heart rate 2019-06-15 15:15:00 63 /min [facility] Body temperature 2019-06-15 15:15:00 37.06 Silvina [facility] Respiratory rate 2019-06-15 15:15:00 18 /min [facility] Body height 2019-06-15 15:15:00 165.1 cm [facility] Body weight 2019-06-15 15:15:00 104.962 kg [facility] BMI 2019-06-15 15:15:00 38.51 kg/m2 [facility] Procedures Procedure Date / Time Performing Clinician Source Performed POCT TEST 2021-07-30 01:21:00 Elen Joseph [facility] POCT GRP A STREP 2021-07-14 22:29:00 Leonor Mueller [facility] (MOLECULAR) [facility] ASSIGNMENT OF BENEFITS 2021-06-20 17:17:03 Doctor Unassigned, [facility] GC & CHLAMYDIA AMPLIFIED 2021-04-12 19:33:[address] [facility] US PELVIS COMPLETE WITH 2020-10-07 01:17:40 Christiano Angeles [facility] TRANSVAGINAL [facility] CONSENT/REFUSAL FOR 2020-10-07 00:50:04 Doctor Unadre, [facility] DIAGNOSIS AND TREATMENT [facility] SCANNED LAB RESULTS 2020-10-01 06:01:00 Doctor Ramy, [facility] MEDICATION CORRESPONDENCE 2020-04-02 05:01:00 Doctor Ramy, [facility] Name [facility] CBC WITH DIFFERENTIAL 2020-02-01 09:48:00 Josette Cheung [facility] VENOUS CORD GAS 2020-01-31 05:42:00 Josette Cheung [employer] [facility] NON-STRESS TEST 2020-01-30 19:36:27 Josette Cheung [facility] HIV 1/2 AG-AB WITH REFLEX 2020-01-30 18:56:00 Josette Cheung [facility] CBC WITH DIFFERENTIAL 2020-01-30 18:53:00 Josette Cheung [facility] HEPATITIS B SURFACE 2020-01-30 18:53:00 Josette Cheung [facility] ANTIGEN [facility] ADC OR MARK ONLY - RPR 2020-01-30 18:53:00 Josette Cheung Un [facility] HB ABO GROUPING 2020-01-30 18:45:00 Josette Cheung [employer] [facility] RHO (D) IMMUNE GLOBULIN 2020-01-30 18:45:00 Josette Cheung [facility] CORONAVIRUS COVID-19 2020-01-30 17:37:00 Josette Cheung [facility] TESTING [facility] ASSIGNMENT OF BENEFITS 2020-01-30 17:10:32 Doctor Unassigned, Un [facility] POCT URINALYSIS W/O 2020-01-30 00:00:00 Jos[facility] POCT URINALYSIS W/O 2020-01-24 00:00:00 [facility] URINALYSIS 2020-01-23 17:12:00 Josette Cheung [employer] [facility] ADC ONLY - FERN TEST 2020-01-23 17:12:00 Josette Cheung [facility] NON-STRESS TEST 2020-01-16 21:34:12 Josette Cheung [facility] CBC WITH DIFFERENTIAL 2020-01-16 20:35:00 Josette Cheung [facility] ASSIGNMENT OF BENEFITS 2020-01-16 20:24:24 Doctor Unassigned, Un [facility] POCT URINALYSIS W/O 2020-01-16 00:00:00 Josette Cheung [facility] SECOND AND THIRD 2020-01-08 15:30:00 Josetet Cheung [facility] TRIMESTER ULTRASOUND [facility] POCT URINALYSIS W/O 2019-12-28 00:00:00 Christiano Angeles Universi ty [facility] DME/SUPPLY JUSTIFICATION 2019-12-25 05:01:00 Doctor Unassigned, [facility] POCT URINALYSIS W/O 2019-12-13 00:00:00 Jos[facility] [place] SPECIFIC GRAVITY Medical Branch TDAP (ADACEL) 2019-12-03 19:15:08 Christiano Angeles [employer] [facility] IMMUNIZATION [facility] DME/SUPPLY JUSTIFICATION 2019-12-03 06:01:00 Doctor Ramy [facility] [place] [facility] [place] GLUCOSE 1 HOUR POST 2019-11-19 15:53:00 Josette Cheung [facility] HB ABO GROUPING 2019-11-19 15:53:00 Josette Cheung [facility] ADC OR MARK ONLY - RPR 2019-11-19 15:53:00 [facility] AG-AB WITH REFLEX 2019-11-19 15:53:00 [facility] CBC WITH DIFFERENTIAL 2019-11-19 15:36:00 [facility] FOR 2019-11-19 14:42:18 Doctor Ramy [facility] DIAGNOSIS AND TREATMENT [place] [facility] ASSIGNMENT OF BENEFITS 2019-11-19 14:42:08 Doctor Ramy [facility] Name Medical Branch URINALYSIS 2019-11-03 21:00:00 Trevor John [facility] NOTICE OF PRIVACY 2019-11-03 20:12:21 Doctor Ramy [facility] PRACTICES [place] [facility] CONSENT/REFUSAL FOR 2019-11-03 20:12:10 Doctor Ramy [facility] DIAGNOSIS AND TREATMENT [place] [facility] ASSIGNMENT OF BENEFITS 2019-11-01 13:48:54 Doctor Ramy [facility] [place] [facility] CONSENT/REFUSAL FOR 2019-11-01 13:48:43 Doctor Ramy [facility] DIAGNOSIS AND TREATMENT [place] [facility] L&D VISIT (NON-DELIVERED) 2019-10-07 06:01:00 Doctor Mccann [facility] [place] [facility] POCT TEST 2019-06-15 15:30:00 Misty Mckay [facility] ASSIGNMENT OF BENEFITS 2019-06-15 14:37:45 [facility] [place] [facility] MR Knee wo contrast [id number] 2018-08-25 00:00:00 [facility] Extremity lower venous 2018-08-25 00:00:00 [facility] doppler bilat [id number] Physicians Encounters Start End Encounter Admission Attending Care Care Encounter Source Date/Time Date/Time Type Type Clinicians Facility Department ID 2021-11-04 Outpatient Langford, [facility] [id number] 13:55:18 Fernandez [id number] 2021-11-04 Outpatient Langford, [facility] [id number] [address] 13:10:23 Fernandez [id number] [facility] 2021-11-04 Outpatient Langford, [facility] [id number] [address] 12:57:22 Fernandez [id number] [facility] 2021-11-04 [facility] [id number] 12:25:15 Fernandez [id number] [facility] 2021-11-04 Outpatient Langford, [facility] [id number] 12:13:17 Fernandez [id number] [facility] 2021-11-04 Outpatient Langford, [facility] [id number] 12:00:49 Fernandez [id number] [facility] 2021-11-04 Outpatient Langford, [facility] [id number] 11:54:10 Fernandez [id number] [facility] 2021-11-04 Outpatient Langford, [facility] [id number] 11:51:45 Fernandez [id number] [facility] 2021-08-11 Emergency [facility] [id number] Univers 08:26:00 ity [facility] 2021-08-10 Emergency [facility] [id number] Univers 22:05:53 ity [facility] 2021-08-06 Outpatient P [facility] [id number] Univers 18:42:34 ity [facility] 2021-08-06 Outpatient P [facility] [id number] Univers 18:05:33 ity [facility] 2021-08-06 Outpatient P [facility] [id number] Univers 18:04:40 ity [facility] 2022-01-11 2022-01-11 ambulatory [facility] [id number] [facility] 00:[facility]:00 Apoorva chan Outpat[facility] ent Clinics 2021-12-18 2021-12-18 Outpatient R [facility] [id number] Univers 18:00:00 18:00:00 [id number] ity of [facility] 2021-12-18 2021-12-18 Outpatient R JACQUELINE, [facility] [id number] Univers 18:00:00 18:00:00 NYDIA rod o f [facility] 2021-10-22 2021-10-22 [facility] [id number] Univers 11:00:00 11:00:00 [facility] [id number] [facility]-10-22 2021-10-22 [facility] [id number] Univers 11:00:00 11:00:00 [facility] 2021-10-22 2021-10-22 [facility] [id number] Univers 00:00:00 00:00:00 Sydnie HEALTH [id number] it y of [place] [id number] Bryn as DANTE?BLEA [id number] [address] MEDICAL OFFICE [facility] 2021-10-15 2021-10-15 [facility] [id number] Univers 11:40:00 13:06:17 [facility] 2021-10-15 2021-10-15 [facility] [id number] Univers 11:40:00 12:00:00 Care Sydnie HEALTH [id number] it y [place] [id number] Bryn as DANTE?BLEA [id number] [address] MEDICAL OFFICE [facility] 2021-10-15 2021-10-15 [facility] [id number] Univers 11:40:00 11:40:00 SYDNIE [id number] ity of [facility] 2021-10-14 2021-10-14 Outpatient [facility] [id number] Univers 11:45:00 11:45:00 [id number] ity of [facility] 2021-10-12 2021-10-12 ambulatory [facility] [id number] [facility] 2021-10-12 2021-10-12 ambulatory [facility] [id number] [facility] 2021-09-10 2021-09-10 Zara Mueller [facility] 1.2.840.114 [id number] Univers 00:00:00 00:00:00 Leonor HEALTH 350.1.13.10 it y of [facility] 4.2.7.2.686 Bryn as DANTE?BLEA [phone] [facility] [address] MEDICAL OFFICE [facility] 2021-07-30 2021-07-30 Telephone Josette Cheung [facility] 1.2.840.114 [id number] Univers 00:00:00 00:00:00 Leti Zuleta 350.1.13.10 i ty of [place]2.[place].2.[place] [facility] [phone] [facility] 134 [facility] 2021-07-29 2021-07-29 Emergency [facility] 1.2.702.110 [id number] Univers 19:42:00 21:40:00 Elen Zuleta 350.1.13.10 ity of [place] 4.2.7.2.686 [place] [phone] [facility] [address] [place] 2021-07-19 2021-07-19 Zara Russ [facility] 1.2.840.114 [id number] Univers 00:00:00 00:00:00 Nydia Health 350.1.13.10 i ty of [place] 4.2.7.2.686 Bryn as Dante?Blea [phone] [facility] [address] [place] [address] Medical Office [facility] 2021-07-14 2021-07-14 Urgent [facility] 1.2.840.114 [id number] Univers 17:18:01 17:47:01 Care Nydia [place] 350.1.13.10 i ty of [place] 4.2.7.2.686 Bryn as Dante?Blea [phone] Me nicole jimenez [address] [place] [address] Medical Office [facility] 2021-07-14 2021-07-14 [facility] [id number] Univers 17:40:00 17:40:00 NYDIAMOISES santos [facility] 2021-07-14 2021-07-14 Outpatient [facility] [id number] -[id number] Univers 10:00:00 10:00:00 [id number] [facility] 2021-07-14 2021-07-14 [facility] [id number] Univers 10:00:00 10:00:00 NYDIAMOISES santos [facility] 2021-07-10 2021-07-10 Outpatient [facility]LMLC [facility] [id number] [facility] 2021-07-03 2021-07-03 [facility] [id number] -[id number] Univers 15:00:00 15:00:00 ELLE [id number] [facility] 2021-07-03 2021-07-03 Outpatient [facility] [id number] Univers 15:00:00 15:00:00 ELLE [facility] 2021-06-30 2021-06-30 Office [facility] 1.2.840.114 [id number] Univers 11:55:40 12:25:40 Visit Elle STAFFORD 350.1.13.10 i ty of [place].2.686 [place] [phone] [address] 2021-06-30 2021-06-30 Outpatient [facility] [id number] -[id number] Univers 09:00:00 09:00:00 [id number] [facility] 2021-06-30 2021-06-30 Outpatient [facility] [id number] Univers 09:00:00 09:00:00 LEONOR ity [facility] 2021-06-22 2021-06-22 Letter POPPY Mireles 1.2.840.114 [id number] Univers 00:00:00 00:00:00 (Out) [place] iTny YEE 350.1.13.10 it y of [facility] 4.2.7.2.686 Bryn as [phone] [facility] [address] [place] 2021-06-21 2021-06-21 Emergency poppyCounts include 234 beds at the [facility] 1.2.840.114 [id number] Univers 15:13:00 16:17:00 Shanika Zuleta 350.1.13.10 ity [facility] 4.2.7.2.686 [facility] [phone] [facility] [address] 2021-06-20 2021-06-20 Outpatient [facility] [id number] -[id number] Univers 12:20:00 12:20:00 [id number] ity [facility] 2021-06-20 2021-06-20 Outpatient [facility] [id number] Univers 12:20:00 12:20:00 SYDNIE ity [facility] 2021-06-20 2021-06-20 Orders Doctor MCWILLIAMS 1.2.840.114 [id number] Univers 00:00:00 00:00:00 Only Unassigned, JOSELITO 350.1.13.10 ity of [place] [facility] 4.2.7.2.686 Bryn [phone] [facility] [address] 2021-06-13 2021-06-13 Outpatient [facility] [id number] -[id number] Univers 17:45:00 17:45:00 [id number] ity [facility] 2021-06-13 2021-06-13 Out[facility] [id number] Univers 17:45:00 17:45:00 NYDIA rod o f [facility] 2021-04-14 2021-04-14 Outpatient R BRIDGETTE, [facility] [id number] [id number]-20 Univers 08:30:00 08:30:00 CHRISTIANO [id number] [facility] 2021-04-14 2021-04-14 Outpatient L[facility] [id number] Univers 08:30:00 08:30:00 CHRISTIANO [facility] 2021-04-13 2021-04-13 Refnathaniel [facility] 1.2.840.114 [id number] Univers 00:00:00 00:00:00 [facility] 350.1.13.10 it y of [place] 4.2.7.2.686 Bryn as Professio [phone] [address] One 2021-04-12 2021-04-12 Urgent Provider, [facility] 1.2.840.114 [id number] Univers 12:00:26 13:54:05 Krysta Graves [facility] 350.1.13.10 ity of [place] 4.2.7.2.686 [place]n as Professio [phone] [address] One 2021-04-12 2021-04-12 Outpatient [facility] [id number] -[id number] Univers 12:00:00 12:00:00 [id number] [facility] 2021-04-12 2021-04-12 Outpatient Lila MCKEON [facility] [id number] Univers 12:00:00 12:00:00 KRYSTA rod o f [facility] 2021-04-09 2021-04-09 Outpatient STLMLC STLC [id number] [facility] 00:00[facility] 00[facility]00 [facility] 2021-03-18 2021-03-18 Outpatient [facility] [id number] [id number]-20 Univers 15:30:00 15:30:00 CHRISTIANO [id number] [facility] 2021-03-18 2021-03-18 Outpatient [facility]LMLC STLC [id number] [facility] 2021-03-11 2021-03-11 Outpatient [facility]MLC STLC [id number] [facility] 2021-03-05 2021-03-05 Outpatient [facility] [id number] [facility] 2021-02-04 2021-02-04 Outpatient [facility] [id number] [facility] 2021-01-05 2021-01-05 Outpatient [facility] [id number] [facility] 2020-12-30 2020-12-30 Patient [facility] 1.2.840.[id number] [place] [address] 00:00:00 00:00:00 Outreach Farzad JACOB 350.1.13.10 i ty of [facility] 4.2.7.2.686 [place] [facility] [phone] [address] 2020-11-04 2020-11-04 Outpatient [facility] [id number] [facility] 2020-11-03 2020-11-03 Outpatient [facility] [id number] [facility] 2020-10-16 2020-10-16 Outpatient R [facility] [id number] -20 Univers 13:00:00 13:00:00 [id number] ity of [facility] 2020-10-15 2020-10-15 Telephone [facility] 1.2.840.114 [id number] [facility] 00:00:00 00:00:00 Christiano Zuleta 350.1.13.10 i ty of [place] 4[place]2.7.2.686 [place] Profess[place] [phone] [address] 2020-10-15 2020-10-15 Telephone [facility] 1.2.840.114 [id number] 00:00:00 00:00:00 Christiano Zuleta 350.1.13.10 [place] 4.2.7.2.686 Professio [phone] [address] 2020-10-14 2020-10-14 Telephone [facility] 1.2.840.114 [id number] [facility] 00:00:00 00:00:00 Christiano [place] 350.1.13.10 i ty of [place] 4.2.7.2.686 [place] Profess[place] [phone] [place] dic[address] 2020-10-14 2020-10-14 [facility] 1.2.515.532 [id number] Univers 00:00:00 00:00:00 Management Christiano [place] 350.1.13.10 ity of [place] 4.2.7.2.686 [place] Profess[place] [phone] [address] 2020-10-14 2020-10-14 [facility] 1.2.572.986 [id number] 00:00:00 00:00:00 Management Christiano [place] 350.1.13.10 [place] 4.2.7.2.686 Professio [phone] [address] 2020-10-14 2020-10-14 [place] [facility] 1.2.840.114 [id number] 00:00:00 00:00:00 Christiano [place] 350.1.13.10 [place] 4.2.7.2.686 Professio [phone] [address] 2020-10-06 2020-10-06 [facility] 1.2.840.114 [id number] [facility] 18:51:56 23:59:00 Encounter Christiano [place] 350.1.13.10 ity of [place] 4.2.7.2.686 [place] [phone] [address] 2020-10-06 2020-10-06 [facility] 1.2.840.114 [id number] 18:51:56 23:59:00 Encounter Christiano [place] 350.1.13.10 [place] 4.2.7.2.686 [place] [phone] [facility] 2020-10-06 2020-10-06 Outpatient R BRIDGETTE [facility] [id number] [id number]-20 Univers 00:00:00 00:00:00 CHRISTIANO [id number] ity of [facility] 2020-10-06 2020-10-06 Outpatient R BRIDGETTE [facility] [id number] Univers 00:00:00 00:00:00 CHRISTIANO ity of [facility] 2020-10-06 2020-10-06 Orders Doctor MCWILLIAMS 1.2.840.114 [id number] Univers 00:00:00 00:00:00 Only Unassigned, JOSELITO 350.1.13.10 ity of [place] [facility] 4.2.7.2.686 Bryn as [phone] [address] 2020-10-06 2020-10-06 Orders Doctor POPPY 1.2.840.114 [id number] 00:00:00 00:00:00 Only Unassigned, JOSELITO 350.1.13.10 [place] [facility] [phone] [facility] 2020-10-01 2020-10-01 Orders Doctor MCWILLIAMS 1.2.840.114 [id number] Univers 00:00:00 00:00:00 Only Unassigned, JOSELITO 350.1.13.10 ity of [place] [facility] 4.2.7.2.686 Bryn as [phone] [address] 2020-10-01 2020-10-01 Orders Doctor MCWILLIAMS 1.2.840.114 [id number] 00:00:00 00:00:00 Only Unassigned, JOSELITO 350.1.13.10 [place] [facility] 4.2.7.2.686 [phone] [facility] 2020-09-30 2020-09-30 Office Christiano Angeles [facility] 1.2.840.11 [id number] [facility] 10:09:30 11:23:11 Visit Kimberlyn Sr 350.1.13.10 ity of [place] 4.2.7.2.686 [place] [phone] [address] 2020-09-30 2020-09-30 Office Bridgette WAALYSHA 1.2.168.484 [id number] 10:09:30 11:23:11 Visit Christiano Zuleta 350.1.13.10 [place] 4.2.7.2.686 [facility] [phone] [address] 2020-09-30 2020-09-30 Outpatient R GIRISH [facility] [id number] Univers 10:00:00 10:00:00 KIMBERLYN [id number] [facility] 2020-09-30 2020-09-30 Outpatient R GIRISH [facility] [id number] Univers 10:00:00 10:00:00 KIMBERLYN [facility] 2020-09-25 2020-09-25 Outpatient [facility]MLC STLC [id number] [facility] 2020-09-23 2020-09-23 Outpatient [facility]LMLC [facility] [id number] [facility] 2020-09-23 2020-09-23 Outpatient [facility]LC [id number] [facility] 2020-09-18 2020-09-18 Outpatient R BRIDGETTE, [facility] [id number] 5N-20 Univers 09:00:00 09:00:00 CHRISTIANO [facility] 2020-09-18 2020-09-18 Outpatient R BRIDGETTE, [facility] [id number] Univers 09:00:00 09:00:00 CHRISTIANO [facility] 2020-09-18 2020-09-18 Outpatient [facility]MLC STLC [id number] [facility] 2020-09-03 2020-09-03 Outpatient [facility]LMLC [facility]ML[facility] [id number] [facility] 2020-09-02 2020-09-02 Outpatient STLMLC [facility]ML[facility] [id number] [facility] 2020-09-02 2020-09-02 Outpatient STLMLC [facility]ML[facility] [id number] [facility] 2020-07-21 2020-07-21 [id number] 00:[facility]:00 Apoorva Shrestha l [facility] ent [facility] 2020-07-07 2020-07-07 Refill Bridgette [facility] 1.2.159.392 [id number] Univers 00:00:00 00:00:00 Christiano [place] 350.1.13.10 i ty of [place] 4[place]2.7.2.686 [place] Profess[place] [phone] [place] dical [place]al [address] [place] [address] 2020-07-02 2020-07-02 Refill Bridgette [facility] 1.2.691.247 [id number] Univers 00:00:00 00:00:00 Christiano [place] 350.1.13.10 i ty of [place] 4.2.7.2.686 [place] [phone] [place] dical nal [address] [place] [address] 2020-06-30 2020-06-30 Refill Josette Cheung [facility] 1.2.174.192 [id number] Univers 00:00:00 00:00:00 Cam [place] 350.1.13.10 i ty of [place] 4.2.7.2.686 [place] [phone] [place] dical nal [address] [place] [address] 2020-06-27 2020-06-27 RefJosette Reynoso [facility] 1.2.750.123 [id number] Univers 00:00:00 00:00:00 Cam [place] 350.1.13.10 i ty of [place] 4.2.7.2.686 [place] [phone] [place] dical nal [address] [place] [address] 2020-06-27 2020-06-27 Josette Carvajal [facility] 1.2.900.416 [id number] Univers 00:00:00 00:00:00 Cam [place] 350.1.13.10 i ty of [place] 4.2.7.2.686 [place] [phone] [place] dical nal [address] [place] [address] 2020-06-11 2020-06-11 Office Bridgette WAALYSHA 1.2.531.334 [id number] Univers 10:02:40 10:54:19 Visit Christiano Zuleta 350.1.13.10 i ty of [place] 4.2.7.2.686 [place] [phone] [address] 2020-06-11 2020-06-11 Outpatient R BRIGDETTE [facility] [id number] 5N-20 Univers 09:45:00 09:45:00 [facility] [id number] [facility] 2020-06-11 2020-06-11 Outpatient R BRIDGETTE [facility] [id number] Univers 09:45:00 09:45:00 CHRISTIANO [facility] 2020-06-09 2020-06-09 Telephone Josette Cheung [facility] 1.2.840.114 [id number] Univers 00:00:00 00:00:00 Leti Zuleta 350.1.13.10 i ty of [place] 4.2.7.2.[place] [phone] [address] 2020-04-02 2020-04-02 Orders Doctor POPPY 1.2.840.114 [id number] Univers 00:00:00 00:00:00 Only Unassigned, JOSELITO 350.1.13.10 ity of [place] [facility] 4.2.7.2.686 [place]n as [phone] [address] 2020-03-27 2020-03-27 [facility] 1.2.322.025 [id number] Univers 00:00:00 00:00:00 Christiano Zuleta 350.1.13.10 i ty of [place] 4.2.7.2.[place] [phone] [address] 2020-02-29 2020-02-29 Outpatient Lila ANGELES [facility] [id number] 5N-20 Univers 15:30:00 15:30:00 CHRISTIANO [id number] [facility] 2020-02-29 2020-02-29 Outpatient R BRIDGETTE [facility] [id number] Univers 15:30:00 15:30:00 CHRISTIANO [facility] 2020-02-29 2020-02-29 Telemedici Bridgette [facility] 1.2.840.114 [id number] Univers 09:13:27 09:28:27 ne Visit Christiano Zuleta 350.1.13.10 ity [facility] 4.2.7.2.[place] [phone] [place] dic[address] 2020-02-27 2020-02-27 Outpatient R BRIDGETTE [facility] [id number] 5N-20 Univers 11:00:00 11:00:00 CHRISTIANO [id number] ity [facility] 2020-02-27 2020-02-27 [facility] [id number] Univers 11:00:00 11:00:00 [facility] 2020-02-07 2020-02-07 [facility] 1.2.538.445 [id number] Univers 00:00:00 00:00:00 Secure Msg Leti Zuleta 350.1.13.10 ity [facility] 4.2.7.2.686 [place] [phone] [address] 2020-01-30 2020-02-01 Hospital [facility] 1.2.840.114 [id number] Univers 12:12:00 13:05:00 Encounter Leti Zuleta 350.1.13.10 ity [facility] 4.2.7.2.686 [place] [phone] [address] 2020-02-01 2020-02-01 Outpatient R [facility] [id number] Univers 10:00:00 10:00:00 [id number] ity [facility] 2020-02-01 2020-02-01 Outpatient R JONATAN [facility] [id number] Univers 10:00:00 10:00:00 ity of [facility] 2020-01-30 2020-01-30 Outpatient R JOSETTE CHEUNG [facility] [id number] 5N-20 Univers 16:00:00 16:00:00 [id number] ity [facility] 2020-01-30 2020-01-30 [facility] [id number] Univers 16:00:00 16:00:00 ity [facility] 2020-01-30 2020-01-30 Routine Josette Cheung WA[facility] 1.2.776.769 [id number] Univers 09:01:54 10:12:03 Cam [place] 350.1.13.10 ity of Visit [place] 4.2.7.2.686 [place] [phone] [place] dical [address] 2020-01-30 2020-01-30 Outpatient R JOSETTE CHEUNG [facility] [id number] Univers 09:30:00 09:30:00 ity of [facility] 2020-01-30 2020-01-30 Orders Doctor POPPY 1.2.840.114 [id number] Univers 00:00:00 00:00:00 Only Unassigned, JOSELITO 350.1.13.10 [facility] 4.2.7.2.686 [place] [phone] [address] 2020-01-29 2020-01-29 Patient Josette Cheung [facility] 1.2.257.269 [id number] Univers 00:00:00 00:00:00 Secure Msg Cam [place] 350.1.13.10 ity of [place] 4.2.7.2.[place] [phone] [place] dical nal [address] [place] [address] 2020-01-28 2020-01-28 Telephone Josette Cheung [facility] 1.2.840.114 [id number] Univers 00:00:00 00:00:00 Cam [place] 350.1.13.10 i ty of [place] 4.2.7.2.[place] [phone] [place] dical nal [address] [place] [address] 2020-01-28 2020-01-28 Patient Josette Cheung [facility] 1.2.591.611 [id number] Univers 00:00:00 00:00:00 Secure Msg Cam [place] 350.1.13.10 ity of [place] 4.2.7.2.686 [place] [phone] [place] dical nal [address] [place] [address] 2020-01-25 2020-01-25 Telephone Josette Cheung [facility] 1.2.840.114 [id number] Univers 00:00:00 00:00:00 Cam [place] 350.1.13.10 i ty of [place] 4.2.7.2.686 [place] [phone] [place] dical nal [address] [place] [address] 2020-01-25 2020-01-25 Patient Josette Cheung [facility] 1.2.035.934 [id number] Univers 00:00:00 00:00:00 Secure Msg Cam [place] 350.1.13.10 ity of [place] 4.2.7.2.686 [place] [phone] [address] 2020-01-24 2020-01-24 Routine [facility] 1.2.295.938 [id number] Univers 13:56:43 14:11:43 Christiano Zuleta 350.1.13.10 ity of Visit [place] 4.2.7.2.686 [place] [phone] [address] 2020-01-24 2020-01-24 Outpatient R BRIDGETTE [facility] [id number] 5N-20 Univers 13:45:00 13:45:00 [facility]STIANO [id number] [facility] 2020-01-24 2020-01-24 Outpatient R BRIDGETTE [facility] [id number] Univers 13:45:00 13:45:00 CHRISTIANO [facility] 2020-01-23 2020-01-23 Hospital Josette Cheung [facility] 1.2.840.114 [id number] Univers 11:39:00 13:10:00 Encounter Cam [place] 350.1.13.10 ity of [place] 4.2.7.2.686 [place] [phone] [address] 2020-01-17 2020-01-17 Patient Joestte Cheung [facility] 1.2.339.349 [id number] Univers 00:00:00 00:00:00 Secure Msg Cam [place] 350.1.13.10 ity of [place] 4.2.7.2.[place] [phone] [place] dical [place]al [address] [place] [address] 2020-01-16 2020-01-16 Routine Josette Cheung [facility] 1.2.540.711 [id number] Univers 15:23:25 16:32:56 Leti Zuleta 350.1.13.10 ity of [place] 4.2.7.2.[place] [phone] [place] dical nal 134 [facility] 2020-01-16 2020-01-16 Outpatient R JOSETTE CHEUNG [facility] [id number] 5N-20 Univers 15:45:00 15:45:00 ity of [facility] 2020-01-16 2020-01-16 Outpatient R JONATAN [facility] [id number] Univers 15:45:00 15:45:00 ity of [facility] 2020-01-16 2020-01-16 Campus Executive Director 2, Adc Lab [facility] 1.2.840.114 [id number] Univers 15:26:06 15:41:06 Visit Josette Cheung 350.1.13.10 ity of [place] 4[place]2.7.2.[place] [phone] [place] dical nal 353 [facility] 2020-01-16 2020-01-16 Orders Doctor POPPY 1.2.840.114 [id number] Univers 00:00:00 00:00:00 Only Unassigned, JOSELITO 350.1.13.10 ity of [place] [facility] 4.2.7.2.686 [place] [phone] [address] 2020-01-08 2020-01-10 Campus Executive Director Ultrasound, [facility] 1.2 .840.114 [id number] Univers 09:51:46 11:19:26 Visit Elan Denny SENIOR TECHNICAL PROGRAM MANAGER 350.1.13.10 ity of [facility] 4.2.7.2.686 Bryn as MATERNAL [phone] Med ical & CHILD [address] [place] [address] 2020-01-09 2020-01-09 Patient Josette Cheung [facility] 1.2.743.188 [id number] Univers 00:00:00 00:00:00 Secure Msg Leti Song 350.1.13.10 ity of [place] 4[place].7.2.[place] [phone] [place] dical nal 134 [facility] 2020-01-08 2020-01-08 Outpatient R [facility] [id number] Univers 10:00:00 10:00:00 [id number] ity [facility] 2020-01-08 2020-01-08 Outpatient P [facility] [id number] Univers 10:00:00 10:00:00 ity of [facility] 2019-12-28 2019-12-28 Outpatient R BRIDGETTE [facility] [id number] Univers 08:45:00 08:45:00 CHRISTIANO ity [facility] 2019-12-28 2019-12-28 Outpatient R BRIDGETTE [facility] [id number] Univers 08:45:00 08:45:00 [facility] 2019-12-28 2019-12-28 Routine Bridgette [facility] [id number] Univers 08:07:16 08:42:05 Christiano Zuleta [id number] [phone] [place] [address] [place] [address] 2019-12-27 2019-12-27 Outpatient R BRIDGETTE [facility] [id number] Univers 13:45:00 13:45:00 CHRISTIANO [id number] [facility] 2019-12-27 2019-12-27 Outpatient R BRIDGETTE [facility] [id number] Univers 13:45:00 13:45:[facility] 2019-12-25 2019-12-25 Telephone Bridgette [facility] [id number]..840.114 [id number] Univers 00:00:00 00:00:00 Christiano Zuleta [id number] [phone] [place] [address] [place] [address] 2019-12-25 2019-12-25 Orders Doctor POPPY [id number] Univers 00:00:00 00:00:00 Only Unassigned, JOSELITO 350.1.13.10 ity of [place] [facility] [id number] [place] [phone] [address] 2019-12-13 2019-12-13 Routine Josette Cheung [facility] [id number] Univers 15:56:59 16:41:05 Cam Song [id number] [id number] [phone] [address] 2019-12-13 2019-12-13 Outpatient R JONATAN JOSETTE [facility] [id number] Univers 16:00:00 16:00:00 ity of [facility] 2019-12-13 2019-12-13 Outpatient R JONATAN [facility] [id number] Univers 13:15:00 13:15:00 ity of [facility] 2019-12-13 2019-12-13 Outpatient R [facility]AN [facility] [id number] Univers 13:15:00 13:15:00 ity of [facility] 2019-12-03 2019-12-03 Outpatient R [facility] [facility] [id number] Univers 13:30:00 13:30:00 [facility]03 2019-12-03 [facility] 1.2.895.406 [id number] Univers 12:34:57 13:27:03 Christiano Zuleta 350.1.13.10 ity of [place] [phone] [address] 2019-12-03 2019-12-03 Orders Doctor POPPY 1.2.840.114 [id number] Univers 00:00:00 00:00:00 Only Unassigned, JOSELITO 350.1.13.10 ity of [place] [facility] 4.2.7.2.686 [place] [phone] [address] 2019-11-30 2019-11-30 Telephone Jonatan Josette [facility] 1.2.840.114 [id number] Univers 00:00:00 00:00:00 Leti Zuleta 350.1.13.10 i [place] [phone] [address] 2019-11-27 2019-11-27 Refill Josette Cheung [facility] 1.2.195.134 [id number] Univers 00:00:00 00:00:00 Cam [place] 350.1.13.10 i ty of [place] [phone] [place] 134 [facility] 2019-11-20 2019-11-20 Patient [place] Cheung [place] 1.2.411.612 [id number] Univers 00:00:00 00:00:00 Secure Msg Cam [place] 350.1.13.10 it[place] [phone] [place] 134 [facility] 2019-11-20 2019-11-20 Patient Josette Cheung [facility] 1.2.983.223 [id number] Univers 00:00:00 00:00:00 Secure Msg Cam [place] 350.1.13.10 ity of [place] [phone] [place] 134 [facility] 2019-11-19 2019-11-19 Campus Executive Director Lal[place], [place] [facility] [place] 1.2.8 40.114 [id number] Univers 08:42:18 08:57:18 Visit Josette Cheung Song 350.1.13.10 ity of [place] [phone] [place] 353 [facility] 2019-11-19 2019-11-19 Orders Doctor POPPY 1.2.840.114 [id number] Univers 00:00:00 00:00:00 Only Unassigned, JOSELITO 350.1.13.10 ity of [place] [facility]OSPITAL 4.2.7.2.686 [place] [phone] [facility] johnny [address] [place] 2019-11-05 2019-11-05 Routine Josette Cheung [facility] 1.2.988.962 [id number] Univers 13:21:14 15:07:44 Leti [place] 350.1.13.10 ity of [place] [phone] [place] 134 [facility] 2019-11-03 2019-11-03 Emergency [facility] 1.2.011.685 [id number] Univers 14:43:22 15:52:00 Trevor Zuleta 350.1.13.10 i ty of [place] [phone] [facility] [address] [place] 2019-11-03 2019-11-03 Orders Doctor POPPY 1.2.840.114 [id number] Univers 00:00:00 00:00:00 Only Unassigned, JOSELITO 350.1.13.10 ity of [place] HOSPITAL 4.2.7.2.686 [place] [phone] [facility] [address] [place] 2019-11-02 2019-11-02 Refill Josette Cheung [facility] 1.2.658.163 [id number] Univers 00:00:00 00:00:00 Leti Zuleta 350.1.13.10 i ty [place] [phone] [place] d[place] 134 [facility] 2019-11-01 2019-11-01 Hospital Josette Cheung [facility] 1.2.840.114 [id number] Univers 07:51:13 09:15:00 Encounter Gabino Alvarez 350.1.1 3.10 ity of [place] [phone] [facility] [address] [place] 2019-11-01 2019-11-01 Orders Doctor POPPY 1.2.840.114 [id number] Univers 00:00:00 00:00:00 Only Unassigned, JOSELITO 350.1.13.10 ity of [place] HOSPITAL 4.2.7.2.686 [place] [phone] [facility] 00[address] [place] 2019-10-30 2019-10-30 Patient Josette Cheung [facility] 1.2.083.913 [id number] Univers 00:00:00 00:00:00 Secure Msg Pereyra Song 350.1.13.10 it[place] of [place] [phone] [place] d[place] [address] [place] [address] 2019-10-09 2019-10-09 Patient Josette Cheung [facility] 1.2.177.357 [id number] Univers 00:00:00 00:00:00 Secure Msg Leti Zuleta 350.1.13.10 it[place] of [place] [phone] [place] dical [facility] 134 [facility] 2019-06-15 2019-06-15 Nurse Nurse, [facility] 1.2.840.114 [id number] [facility] 09:41:01 10:37:54 Visit Josette Chenug 350.1.13.10 it[place] of [place] [phone] [place] dical [place] 134 [facility] 2019-06-15 2019-06-15 Orders Doctor POPPY 1.2.840.114 [id number] Univers 00:00:00 00:00:00 Only Unassigned, JOSELITO 350.1.13.10 ity of [place] [facility] 4.2.7.2.686 [place] [phone] [address] 2018-09-18 2018-09-18 [facility] [id number] 16:15:00 16:15:00 t Urgent Urgent Care L es - Care [facility] 2018-08-25 2018-08-25 Appointmen ERICA [facility] [id number] [facility] 08:45:00 08:45:00 t; ERICA WILLIAM, at [place], [place] Solomon MALDONADO M.D. ans 2018-04-25 2018-04-25 [facility] [id number] 10:15:00 10:15:00 [facility] 2018-04-20 2018-04-20 [facility] [id number] 16:28:00 16:28:00 [facility] 2018-04-18 2018-04-18 [facility] [id number] 09:45:00 09:45:00 [facility] 2018-04-11 2018-04-11 [facility] [id number] 11:30:00 11:30:00 [facility] 2018-04-05 2018-04-05 [facility] [id number] 10:05:00 10:05:00 [facility] 2018-04-04 2018-04-04 [facility] [id number] 11:15:00 11:15:00 [facility] 2018-03-30 2018-03-30 [facility] [id number] 08:43:00 08:43:00 [facility] 2018-03-28 2018-03-28 [facility] [id number] 11:15:00 11:15:00 [facility] 2018-03-14 2018-03-14 [facility] [id number] 11:15:00 11:15:00 [facility] 2018-03-09 2018-03-09 [facility] [id number] 09:30:00 09:30:00 [facility] 2018-02-27 2018-02-27 [facility] [id number] 15:43:00 15:43:00 [facility] 2018-02-21 2018-02-21 [facility] [id number] 15:16:00 15:16:00 [facility] 2018-02-16 2018-02-16 [facility] [id number] 10:00:00 10:00:00 [facility] 2018-02-07 2018-02-07 [facility] [id number] 11:15:00 11:15:00 [facility] 2018-02-06 2018-02-06 [facility] [id number] 09:40:00 09:40:00 [facility] 2018-01-27 2018-01-27 [facility] [id number] 09:16:00 09:16:00 [facility] 2018-01-18 2018-01-18 [facility] [id number] 10:00:00 10:00:00 [facility] 2018-01-13 2018-01-13 [facility] [id number] 09:26:00 09:26:00 [facility] 2018-01-03 2018-01-03 [facility] [id number] 09:00:00 09:00:00 [facility] Results Test Description Test Time Test Comments Results Result Comments Source POCT TEST 2021-07-30 01:21:00 Test Item Value Reference Range Interpretation Comme nts POCT PREG (test code = 1605) negative On board controls acceptable with C Line (test code = 3574) positiv e POCT PREG LOT # (test code = 3575) [id number] POCT PREG TEST DATE (test code = 3576) 11-09-2022 Lab Interpretation (test code = 27563-7) Normal [facility])2021-07-14 22:39:00 Test Item Value Reference Range Interpretation Comments POCT GP A STREP (test neg Negative - code = 10722-3) Negative BATSHEVA (test code = BATSHEVA) accurate development and interpretation of all internal controls Lab Interpretation Normal (test code = 79252-3) [facility] & CHLAMYDIA AMPLIFIED [id number] 19:04:03 Test Item Value Reference Range Interpretation Comments C. trachomatis Nucleic Negative Negative Acid (test code = 76109-7) N. gonorrhoeae Nucleic Negative Negative Acid (test code = 87365-0) BATSHEVA (test code = BATSHEVA) Reliable results are dependent on adequate specimen collection. ? A positive result obtained from a patient after therapeutic treatment cannot be interpreted as indicating the presence of viable organisms. ?For patients on whom a false positive result may have adverse psychosocial impact, retesting is advised. Indeterminate: Unable to generate a valid test result on this specimen. ?Please submit a new specimen for repeat testing if clinically indicated. Chlamydia trachomatis/Neisseria gonorrhoeae nucleic acid amplification testing (NAAT) has not been validated for medico-legal specimens (sexual abuse in jayda-pubertal and pre-pubertal children, sexual assault, and legal cases). ?Culture for Chlamydia trachomatis and/or Neisseria gonorrhoeae from clinically appropriate sites is the method of choice in these cases. ? Results from this testing should be interpreted in conjunction with other laboratory and clinical data available to the clinician. Lab Interpretation Normal (test code = 42003-0) [facility] PELVIS COMPLETE WITH [id number] 05:50:39 Unremarkable pelvic ultrasound. ? Preliminary Report Dictated by Resident: Rosana Chung MD., have reviewed this study and agree with theabove report.EXAM: PELVIC ULTRASOUND, TRANSABDOMINAL AND TRANSVAGINAL HISTORY: pelvic pain TECHNIQUE: Survey transabdominal and transvaginalultrasound imaging of thepelvis was performed including color Doppler evaluation with representativeimages obtained. COMPARISON: None FINDINGS: UTERUS: The uterus measures 11.5 x 4.4 x 4.6 cm. The endometrium ishomogeneous and measures 8 mm in thickness. OVARIES: The right ovary measures 2.9 x 2.5 x 1.3 cm (5.0 mL). The leftovary measures 4.5 x 3.9 x 3.1 cm (20.1 mL). No adnexal masses. 2.9 cmhypoechoic structure in the left ovary likely represents a hemorrhagiccorpus luteum. Trace free fluid. [facility], Radiant Results Inft User - 10/06/2020 11:51 PM CSTEXAM: PELVIC ULTRASOUND, TRANSABDOMINAL AND TRANSVAGINALHISTORY: pelvic pain TECHNIQUE: Survey transabdominal and transvaginal ultrasound imaging of thepelvis was performed including color Doppler evaluation with representativeimages obtained.COMPARISON: NoneFINDINGS: UTERUS: The uterus measures 11.5 x 4.4 x 4.6 cm. The endometrium ishomogeneous andmeasures 8 mm in thickness.OVARIES: The right ovary measures 2.9 x 2.5 x 1.3 cm (5.0 mL). The leftovary measures 4.5 x 3.9 x 3.1 cm (20.1 mL). No adnexal masses. 2.9 cmhypoechoic structure in the left ovary likely represents a hemorrhagiccorpus luteum.Trace free fluid.IMPRESSIONUnremarkable pelvic ultr asound. Preliminary Report Dictated by Resident: Byron Lizarraga, Rosana Hitlon MD., have reviewed this study and agree with theabove report. [facility] WITH [id number] 10:16:00 Test Item Value Reference Range Interpretation Comments WBC (test code = See_Comment [Automated 3790-2) message] The sy stem which generated this result transmitted reference range : 4.30 - 11.10 10*3/?L. The reference range was not used to interpret this result as normal/abnormal . RBC (test code = See_Comment L [Automated 329-8) message] The sy stem which generated this result transmitted reference range : 3.93 - 5.25 10*6/?L. The reference range was not used to interpret this result as normal/abnormal . HGB (test code = 10.2 g/dL 11.6-15 L 718-7) HCT (test code = 32.0 % 35.7-45.2 L 4544-3) MCV (test code = 93.6 fL 80.6-95.5 787-2) MCH (test code = 29.8 pg 25.9-32.8 785-6) MCHC (test code = 31.9 g/dL 31.6-35.1 786-4) RDW-SD (test code = 50.5 fL 39-49.9 H 05236-7) RDW-CV (test code = 14.8 % 12-15.5 788-0) PLT (test code = See_Comment [Automated 777-3) message] The sy stem which generated this result transmitted reference range : 166 - 358 10*3/ ?L. The reference r bety was not used to interpret this result as normal/abnormal . MPV (test code = 9.9 fL 9.5-12.9 64876-1) NRBC/100 WBC (test See_Comment [Automat ed code = 0976615142) message] The system which generated this result transmitted reference range : 0.0 - 10.0 /100 WBCs. The refer ence range was not u sed to interpret th is result as normal/abnormal . NRBC x10^3 (test code <0.01 See_Comment [Auto mated = 9100462387) message] The s ystem which generated this result transmitted reference range : 10*3/?L. The reference range was not used to interpret this result as normal/abnormal . GRAN MAT (NEUT) % 67.2 % (test code = 770-8) IMM GRAN % (test code 1.40 % = 5647996432) LYMPH % (test code = 23.1 % 736-9) MONO % (test code = 6.8 % 5905-5) EOS % (test code = 1.0 % 713-8) BASO % (test code = 0.5 % 706-2) GRAN MAT x10^3(ANC) 5.77 10*3/uL 1.88-7.09 (test code = 2119891426) IMM GRAN x10^3 (test 0.12 10*3/uL 0-0.06 H code = 4606292990) LYMPH x10^3 (test code 1.98 10*3/uL 1.32-3.29 = 731-0) MONO x10^3 (test code 0.58 10*3/uL 0.33-0.92 = 742-7) EOS x10^3 (test code = 0.09 10*3/uL 0.03-0.39 711-2) BASO x10^3 (test code 0.04 10*3/uL 0.01-0.07 = 704-7) Lab Interpretation Abnormal (test code = 70567-1) [facility] (D) IMMUNE [id number] 08:30:39 Test Item Value Reference Range Interpretation Comments RHIG CANDIDATE? No- see comment Patient i s not a (test code = candidate for R hIg- 5055) Patient is Rh Positive.Perfor med at [facility] Laboratory Services - [facility] Blood [address] [place] [phone] Free: [phone] A No. [id number] [facility] UptownVenous Cord [id number] 06:00:00 Test Item Value Reference Range Interpretation Comments VENOUS BASE EXCESS, mEq/L CORD (test code = 5903620119) VENOUS PH, CORD (test 7.25-7.45 code = 9099720403) VENOUS PC02, CORD See_Comment [Automate d message] The (test code = system which ge nerated 3999048088) this result tra nsmitted reference range : 27 - 49 mmHg. The refer ence range was not used to interpret this result as normal/abnormal . VENOUS PO2, CORD (test See_Comment [Aut omated message] The code = 5520873809) system [facility] generated this result tra nsmitted reference range : 17 - 41 mmHg. The refer ence range was not used to interpret this result as normal/abnormal . VENOUS BICARBONATE, See_Comment [Automa vonda message] The CORD (test code = system whi ch generated 1360142062) this result tra nsmitted reference range : 12 - 29 mEq/L. The refe rence range was not used to interpret this result as normal/abnormal . [facility] OR MARK ONLY - [id number] 03:26:00 Test Item Value Reference Range Interpretation Comments RPR (Qualitative) (test code = Nonreactive Nonreactive 93818-6) Lab Interpretation (test code = Normal 34417-8) [facility] UptownHepatitis B Surface [id number] 03:13:00 Test Item Value Reference Range Interpretation Comments HBsAg Semi-Quantitative (test code = Negative Negative 5195-3) [facility]ownHIV 1/2 AG-AB WITH [id number] 20:36:00 Test Item Value Reference Range Interpretation Comments HIV Negative Negative Semi-quantitative (test code = 82842-4) BATSHEVA (test code = Non-reactive for HIV-1 BATSHEVA) antigen and HIV-1/HIV-2 antibodies. ?No laboratory evidence of HIV infection. ?Repeat in 2-4 weeks if acute HIV infection is suspected. [facility] UptownType and Screen - ONCE [id number] 19:42:02 Test Item Value Reference Range Interpretation Comments ABO & RH (test code A Positive Performe d at [facility] = 20) Laboratory Serv [facility] Blood Bank[address] [place], [place] [address]Toll Free: [phone] A No. [id number] IAT (test code = Negative Performed a t [facility] 1185) Laboratory Serv [facility] Blood Bank[address] [place], [place] [address]Toll Free: [phone] A No. [id number] [facility] UptownFETAL NON-STRESS [id number] 19:37:09 Reactive and reassuring [place] with irritability Josette Cheung MD ?01/30/2020 ?2:36 PMUnC[facility] Health PlainviewCB WITH [id number] 19:16:00 Test Item Value Reference Range Interpretation Comments WBC (test code = See_Comment [Automated 3657-2) message] The sy stem which generated this result transmitted reference range : 4.30 - 11.10 10*3/?L. The reference range was not used to interpret this result as normal/abnormal . RBC (test code = See_Comment L [Automated 689-8) message] The sy stem which generated this result transmitted reference range : 3.93 - 5.25 10*6/?L. The reference range was not used to interpret this result as normal/abnormal . HGB (test code = 10.9 g/dL 11.6-15 L 718-7) HCT (test code = 33.7 % 35.7-45.2 L 4544-3) MCV (test code = 91.8 fL 80.6-95.5 787-2) MCH (test code = 29.7 pg 25.9-32.8 785-6) MCHC (test code = 32.3 g/dL 31.6-35.1 786-4) RDW-SD (test code = 48.5 fL 39-49.9 21790-3) RDW-CV (test code = 14.5 % 12-15.5 788-0) PLT (test code = See_Comment [Automated 777-3) message] The sy stem which generated this result transmitted reference range : 166 - 358 10*3/ ?L. The reference r bety was not used to interpret this result as normal/abnormal . MPV (test code = 9.8 fL 9.5-12.9 25156-0) NRBC/100 WBC (test See_Comment [Automat ed code = 2585505352) message] The system which generated this result transmitted reference range : 0.0 - 10.0 /100 WBCs. The refer ence range was not u sed to interpret th is result as normal/abnormal . NRBC x10^3 (test code <0.01 See_Comment [Auto mated = 6516699675) message] The s ystem which generated this result transmitted reference range : 10*3/?L. The reference range was not used to interpret this result as normal/abnormal . GRAN MAT (NEUT) % 83.1 % (test code = 770-8) IMM GRAN % (test code 1.20 % = 4429674009) LYMPH % (test code = 11.3 % 736-9) MONO % (test code = 4.2 % 5905-5) EOS % (test code = 0.1 % 713-8) BASO % (test code = 0.1 % 706-2) GRAN MAT x10^3(ANC) 6.68 10*3/uL 1.88-7.09 (test code = 6438764448) IMM GRAN x10^3 (test 0.10 10*3/uL 0-0.06 H code = 8283699480) LYMPH x10^3 (test code 0.91 10*3/uL 1.32-3.29 L = 731-0) MONO x10^3 (test code 0.34 10*3/uL 0.33-0.92 = 742-7) EOS x10^3 (test code = <0.03 0.03-0.39 L 711-2) BASO x10^3 (test code <0.03 0.01-0.07 = 704-7) Lab Interpretation Abnormal (test code = 89600-4) [facility]ownCORONAVIRUS COVID-19 [id number] 18:10:00 Test Item Value Reference Range Interpretation Comments SARS-CoV-2 (test code = Not Detected Not Detected 87009-4) BATSHEVA (test code = BATSHEVA) ID NOW COVID-19 Assay is an isothermal nucleic acid amplification test intended for the qualitative detection of nucleic acid from SARS-CoV-2 viral RNA in nasopharyngeal (CELL CHANGER) specimens. It is used under Emergency Use Authorization (EUA) by FDA. The limit of detection (LOD) of the assay is 125 Genome Equivalents/mL. A positive result is indicative of the presence of SARS-CoV-2 RNA. ?Clinical correlation with patient history and other diagnostic information is necessary to determine patient infection status. A negative (Not Detected) result does not preclude SARS-CoV-2 infection. Clinical correlation with patient history and other diagnostic information should be used in patient management decisions. Invalid: Please collect a new specimen for repeat patient testing if clinically indicated. Lab Interpretation Normal (test code = 31349-8) [facility] [id number] 14:17:00 Test Item Value Reference Range Interpretation Comments POCT PH U (test code = 3254) n/a 5-8 POCT U LEUK EST (test code = 3263) n/a Negative - Negative POCT U NIT (test code = 3262) n/a Negative - Negative POCT U PROT (test code = 3259) neg Negative - Negative POCT U GLU (test code = 3256) neg Negative - Negative POCT U KETONE (test code = 3258) n/a Negative - Negative POCT U BLD (test code = 3257) n/a Negative - Negative [facility]PO[facility] W/O SPECIFIC [id number] 19:24:00 Test Item Value Reference Range Interpretation Comments POCT PH U (test code = 3254) n/a 5-8 POCT U LEUK EST (test code = 3263) n/a Negative - Negative POCT U NIT (test code = 3262) n/a Negative - Negative POCT U PROT (test code = 3259) trace Negative - Negative POCT U GLU (test code = 3256) neg Negative - Negative POCT U KETONE (test code = 3258) n/a Negative - Negative POCT U BLD (test code = 3257) n/a Negative - Negative [id number] 17:50:00 Test Item Value Reference Range Interpretation Comments APPEARANCE (test code = Cloudy Clear A 4820753452) COLOR (test code = Yellow Yellow 9679983819) PH (test code = 4.8-8.0 6495240803) SP GRAVITY (test code = 1.003-1.030 H 9818712046) GLU U QUAL (test code = Normal Normal 3926812035) BLOOD (test code = 2+ Negative A 2476718311) KETONES (test code = 5 mg/dL Negative A 4819153248) PROTEIN (test code = 30 mg/dL Negative A 2887-8) UROBILIN (test code = 2.0 mg/dL Normal A 0361163465) BILIRUBIN (test code = Negative Negative 8247702407) NITRITE (test code = Negative Negative 8764117422) LEUK OJO (test code = 250/uL Negative A 9072070113) RBC/HPF (test code = >182 See_Comment H [Autom ated message] 6774384251) The system [employer] generated this result transmit vonda reference range : 0 - 3 HPF. The refe rence range was not u sed to interpret th is result as normal/abnormal . WBC/HPF (test code = See_Comment H [Autom ated message] 8144894041) The system [employer] generated this result transmit vonda reference range : 0 - 5 HPF. The refe rence range was not u sed to interpret th is result as normal/abnormal . BACTERIA (test code = Moderate Negative A 4474460748) MUCOUS (test code = Marked Negative LPF A 4424637398) SQ EPITH (test code = HPF 4570707462) CA OXALATE (test code = See_Comment H [Au tomated message] 6105763270) The system [employer] generated this result transmit vonda reference range : <=1 HPF. The refere nce range was not u sed to interpret th is result as normal/abnormal . Lab Interpretation (test Abnormal code = 97434-9) [facility] CLC OR LCC ONLY - WET [id number] 17:37:00 Test Item Value Reference Range Interpretation Comments Wet Prep (test code Few Epithelial cells = 6439409955) present [facility] ONLY - FERN [id number] 17:31:00 Test Item Value Reference Range Interpretation Comments [place] Test (test code = 0831954723) Negative [facility] [place] NON-STRESS [id number] 21:37:38 Reactive and reassuringToco quiescent Josette Cheung MD ?01/16/2020 ?4:37 PM [facility] W/O SPECIFIC [id number] 21:17:00 Test Item Value Reference Range Interpretation Comments POCT PH U (test code = 3254) N/A 5-8 POCT U LEUK EST (test code = N/A Negative - Negative 3263) POCT U NIT (test code = 3262) N/A Negative - Negative POCT U PROT (test code = 3259) Trace Negative - Negative POCT U GLU (test code = 3256) Negative Negative - Negative POCT U KETONE (test code = 3258) N/A Negative - Negative POCT U BLD (test code = 3257) N/A Negative - Negative [facility] WITH [id number] 20:48:00 Test Item Value Reference Range Interpretation Comments WBC (test code = See_Comment [Automated 8890-2) message] The sy stem which generated this result transmitted reference range : 4.30 - 11.10 10*3/?L. The reference range was not used to interpret this result as normal/abnormal . RBC (test code = See_Comment L [Automated 899-8) message] The sy stem which generated this result transmitted reference range : 3.93 - 5.25 10*6/?L. The reference range was not used to interpret this result as normal/abnormal . HGB (test code = 11.4 g/dL 11.6-15 L 718-7) HCT (test code = 34.9 % 35.7-45.2 L 4544-3) MCV (test code = 91.6 fL 80.6-95.5 787-2) MCH (test code = 29.9 pg 25.9-32.8 785-6) MCHC (test code = 32.7 g/dL 31.6-35.1 786-4) RDW-SD (test code = 48.2 fL 39-49.9 40295-8) RDW-CV (test code = 14.5 % 12-15.5 788-0) PLT (test code = See_Comment [Automated 777-3) message] The sy stem which generated this result transmitted reference range : 166 - 358 10*3/ ?L. The reference r bety was not used to interpret this result as normal/abnormal . MPV (test code = 10.1 fL 9.5-12.9 93523-2) NRBC/100 WBC (test See_Comment [Automat ed code = 2712072109) message] The system which generated this result transmitted reference range : 0.0 - 10.0 /100 WBCs. The refer ence range was not u sed to interpret th is result as normal/abnormal . NRBC x10^3 (test code <0.01 See_Comment [Auto mated = 1603145709) message] The s ystem which generated this result transmitted reference range : 10*3/?L. The reference range was not used to interpret this result as normal/abnormal . GRAN MAT (NEUT) % 75.2 % (test code = 770-8) IMM GRAN % (test code 0.50 % = 7115353381) LYMPH % (test code = 16.4 % 736-9) MONO % (test code = 7.4 % 5905-5) EOS % (test code = 0.2 % 713-8) BASO % (test code = 0.3 % 706-2) GRAN MAT x10^3(ANC) 6.62 10*3/uL 1.88-7.09 (test code = 1031896788) IMM GRAN x10^3 (test 0.04 10*3/uL 0-0.06 code = 0555629128) LYMPH x10^3 (test code 1.44 10*3/uL 1.32-3.29 = 731-0) MONO x10^3 (test code 0.65 10*3/uL 0.33-0.92 = 742-7) EOS x10^3 (test code = <0.03 0.03-0.39 L 711-2) BASO x10^3 (test code 0.03 10*3/uL 0.01-0.07 = 704-7) Lab Interpretation Abnormal (test code = 10053-0) [facility] URINALYSIS W/O SPECIFIC [id number] 13:21:00 Test Item Value Reference Range Interpretation Comments POCT PH U (test code = 3254) N/A 5-8 POCT U LEUK EST (test code = N/A Negative - Negative 3263) POCT U NIT (test code = 3262) N/A Negative - Negative POCT U PROT (test code = 3259) Negative Negative - Negative POCT U GLU (test code = 3256) Negative Negative - Negative POCT U KETONE (test code = 3258) N/A Negative - Negative POCT U BLD (test code = 3257) N/A Negative - Negative [facility] URINALYSIS W/O SPECIFIC [id number] 22:25:00 Test Item Value Reference Range Interpretation Comments POCT PH U (test code = 3254) n/a 5-8 POCT U LEUK EST (test code = 3263) n/a Negative - Negative POCT U NIT (test code = 3262) n/a Negative - Negative POCT U PROT (test code = 3259) neg Negative - Negative POCT U GLU (test code = 3256) neg Negative - Negative POCT U KETONE (test code = 3258) n/a Negative - Negative POCT U BLD (test code = 3257) n/a Negative - Negative Lab Interpretation (test code = Normal 32734-5) [facility] HARLAN TODD - [id number] 06:36:00 Test Item Value Reference Range Interpretation Comments RPR (Qualitative) (test code = Nonreactive Nonreactive 80813-1) Lab Interpretation (test code = Normal 56242-6) [facility]2 AG-AB WITH [id number] 20:17:00 Test Item Value Reference Range Interpretation Comments HIV Negative Negative Semi-quantitative (test code = 99663-4) BATSHEVA (test code = Non-reactive for HIV-1 BATSHEVA) antigen and HIV-1/HIV-2 antibodies. ?No laboratory evidence of HIV infection. ?Repeat in 2-4 weeks if acute HIV infection is suspected. [facility]GLUCOSE 1 HOUR POST [id number] 18:26:00 Test Item Value Reference Range Interpretation Comments GLUC 1 HR (test code = 5110106263) 121 mg/dL 120-170 Lab Interpretation (test code = Normal 60764-7) [facility]ownPRENATAL WORKUP, BLOOD [id number] 16:49:20 Test Item Value Reference Range Interpretation Comments ABO & RH (test code A Positive Performe d at [facility] = 20) Laboratory Serv [facility] [address] [place], [place] [address]Toll Free: [phone] A No. [id number] IAT (test code = Negative Performed a t [facility] 1185) Laboratory Serv [facility] [address] [place], [place] [address]Toll Free: [phone] A No. [id number] [facility]ownCBC WITH [id number] 16:39:00 Test Item Value Reference Range Interpretation Comments WBC (test code = See_Comment [Automated 4412-2) message] The sy stem which generated this result transmitted reference range : 4.30 - 11.10 10*3/?L. The reference range was not used to interpret this result as normal/abnormal . RBC (test code = See_Comment [Automated 623-8) message] The sy stem which generated this result transmitted reference range : 3.93 - 5.25 10*6/?L. The reference range was not used to interpret this result as normal/abnormal . HGB (test code = 11.7 g/dL 11.6-15 718-7) HCT (test code = 37.2 % 35.7-45.2 4544-3) MCV (test code = 94.7 fL 80.6-95.5 787-2) MCH (test code = 29.8 pg 25.9-32.8 785-6) MCHC (test code = 31.5 g/dL 31.6-35.1 L 786-4) RDW-SD (test code = 46.8 fL 39-49.9 78349-2) RDW-CV (test code = 13.4 % 12-15.5 788-0) PLT (test code = See_Comment [Automated 777-3) message] The sy stem which generated this result transmitted reference range : 166 - 358 10*3/ ?L. The reference r bety was not used to interpret this result as normal/abnormal . MPV (test code = 10.0 fL 9.5-12.9 28561-0) NRBC/100 WBC (test See_Comment [Automat ed code = 6588043923) message] The system which generated this result transmitted reference range : 0.0 - 10.0 /100 WBCs. The refer ence range was not u sed to interpret th is result as normal/abnormal . NRBC x10^3 (test code <0.01 See_Comment [Auto mated = 5017870524) message] The s ystem which generated this result transmitted reference range : 10*3/?L. The reference range was not used to interpret this result as normal/abnormal . GRAN MAT (NEUT) % 77.4 % (test code = 770-8) IMM GRAN % (test code 0.70 % = 7734655752) LYMPH % (test code = 16.3 % 736-9) MONO % (test code = 5.0 % 5905-5) EOS % (test code = 0.4 % 713-8) BASO % (test code = 0.2 % 706-2) GRAN MAT x10^3(ANC) 6.31 10*3/uL 1.88-7.09 (test code = 5024519837) IMM GRAN x10^3 (test 0.06 10*3/uL 0-0.06 code = 7314711158) LYMPH x10^3 (test code 1.33 10*3/uL 1.32-3.29 = 731-0) MONO x10^3 (test code 0.41 10*3/uL 0.33-0.92 = 742-7) EOS x10^3 (test code = 0.03 10*3/uL 0.03-0.39 711-2) BASO x10^3 (test code <0.03 0.01-0.07 = 704-7) Lab Interpretation Abnormal (test code = 17976-4) [id number] 21:32:00 Test Item Value Reference Range Interpretation Comments APPEARANCE (test code = Cloudy Clear A 9514435865) COLOR (test code = Yellow Yellow 3973954827) PH (test code = 4.8-8.0 3247489938) SP GRAVITY (test code = 1.003-1.030 7422875201) GLU U QUAL (test code = Normal Normal 7439297039) BLOOD (test code = Negative Negative 5740169716) KETONES (test code = Negative Negative 0385777369) PROTEIN (test code = Negative Negative 2887-8) UROBILIN (test code = Normal Normal 6715280291) BILIRUBIN (test code = Negative Negative 5689881869) NITRITE (test code = Negative Negative 9943867175) LEUK JOO (test code = 250/uL Negative A 0650961973) RBC/HPF (test code = See_Comment [Autom ated message] 6487975000) The system [employer] generated this result transmitted ref erence range: 0 - 3 HP F. The reference range was not used to int erpret this result as normal/abnormal . WBC/HPF (test code = See_Comment H [Autom ated message] 5121711816) The system [employer] generated this result transmitted ref erence range: 0 - 5 HP F. The reference range was not used to int erpret this result as normal/abnormal . BACTERIA (test code = Few Negative A 1975828668) MUCOUS (test code = Slight Negative LPF A 3820466162) SQ EPITH (test code = HPF 0980985833) Lab Interpretation (test Abnormal code = 87306-9) [facility]ownPOCT [id number] 15:36:00 Test Item Value Reference Range Interpretation Comments POCT PREG (test code Positive = 1605) On board controls Yes acceptable with C Line (test code = 3574) POCT PREG LOT # (test code = 3575) POCT PREG TEST DATE (test code = 3576) BATSHEVA (test code = BATSHEVA) accurate development and interpretation of all internal controls [facility]ownMR Knee wo contrast [id number] 11:31:00 EXAM: Left knee wo contrast MRIINDICATION: [...] fat padwhich may be related to impingement.SL: [id number] by: Leo Barragan MDDictated Date/time: 09/05/18 12:16Electronically Signed by: Leo Barragan MD 09/05/1812:23FINAL REPORT [facility] Extremity lower venous doppler bilat 03160 2018-09-05 10:29:00PROCEDURE: BILATERAL LOWER EXTREMITY VENOUS ULTRASOUNDClinical [...] saphenofemoral junction isunremarkable.IMPRESSION: No deep venous thrombosis.SL: [id number] by: Dima Haney MDDictated Date/time: 09/05/18 11:46Electronically Signed by: Dima Haney MD 1 11/05/1810:49FINAL [facility]PORTUn[facility][U] XRAY KNEE 3 VWS LEFT [id number] 08:56:00Images acquired, not reported on this accession number. [facility]
[2022-01-12] MEDS ORDERED: HYDROCODONE/APAP 5/325 MG TAB ONE (20:25)
--- NOTE | 2022-01-12 20:50 | RAD REPORT ---
EXAM DESCRIPTION: RAD - Foot Right 3 View - 01/12/2022 8:32 pm CLINICAL HISTORY: PAIN COMPARISON: Foot Right 3 View dated 03/16/2018 FINDINGS: Soft tissue swelling is seen in the forefoot region. No acute fracture or dislocation seen . Tiny calcaneal spurs.
--- NOTE | 2022-01-12 21:13 | EDPHYS ---
Physician Documentation [facility] Name: Nicolasa Rose Age: 26 yrs Sex: Female : 1995 Arrival Date: 01/12/2022 Time: 18:24 Bed 18 Private MD: Fernandez Langford ED Physician Kenny Storey HPI: 01/12 20:24 This 26 yrs old Female presents to ER via Ambulatory with complaints of Foot Pain. pm1 20:24 The patient presents with pain, that is acute. The complaints affect the lateral side pm1 of right foot. Context: The problem was sustained outdoors, stepped into hole. Onset: The symptoms/episode began/occurred 2 day(s) ago. Modifying factors: The symptoms are alleviated by elevating leg, the symptoms are aggravated by weight bearing. Associated signs and symptoms: Pertinent positives: swelling, Pertinent negatives numbness, tingling. Treatment prior to arrival includes: no previous treatment. Severity of symptoms: in the emergency department the symptoms are unchanged. The patient has not experienced similar symptoms in the past. The patient has been recently seen by a physician: the patient's primary care provider, with similar presenting complaints, X-ray ordered. [employer]: 18:56 LMP 01/01/2022 ap3 Historical: - Allergies: 18:54 Abilify; ap3 18:54 PENICILLINS; ap3 - Home Meds: 18:54 Trazodone Oral [Active]; Fluoxetine Oral [Active]; control [Active]; ap3 - PMHx: 18:54 Anxiety; Depression; ap3 - Immunization history:: Client reports receiving the 2nd dose of the Covid vaccine, Last tetanus immunization: up to date Flu vaccine is up to date. - Social history:: Smoking status: Patient denies any tobacco usage or history of. Patient uses alcohol, but reports only rare drinking. ROS: 20:24 Constitutional: Negative for fever, chills, and weight loss, Cardiovascular: Negative pm1 for chest pain, palpitations, and edema, Respiratory: Negative for shortness of breath, cough, wheezing, and pleuritic chest pain, Abdomen/GI: Negative for abdominal pain, nausea, vomiting, diarrhea, and constipation. 20:24 Skin: Negative for injury, rash, and discoloration, Neuro: Negative for headache, weakness, numbness, tingling, and seizure. 20:24 MS/extremity: Positive for pain, swelling, tenderness, of the lateral side of right foot, Negative for decreased range of motion, deformity. 20:24 All other systems are negative. Exam: 20:24 Constitutional: This is a well developed, well nourished patient who is awake, alert, pm1 and in no acute distress. Head/Face: Normocephalic, atraumatic. 20:24 Skin: Warm, dry with normal turgor. Normal color with no rashes, no lesions, and no evidence of cellulitis. 20:24 Cardiovascular: Exam negative for acute changes, Rate: normal, Rhythm: regular, Pulses: no pulse deficits are appreciated. 20:24 Respiratory: Exam negative for acute changes, respiratory distress, shortness of breath. 20:24 Musculoskeletal/extremity: Extremities: grossly normal except: noted in the lateral side of right foot: swelling, tenderness, There is no evidence of decreased ROM. 20:24 Neuro: Exam negative for acute changes, Orientation: is normal, Mentation: is normal, Motor: is normal, moves all fours. Vital Signs: 18:52 BP 106 / 57; Pulse 79; Resp 17; Temp 98.2; Pulse Ox 100% ; Weight 110.68 kg; Height 5 ap3 ft. 5 in. (165.10 cm); Pain 4/10; 18:52 Body Mass Index 40.60 (110.68 kg, 165.10 cm) ap3 MDM: 20:09 Patient medically screened. pm1 21:12 Data reviewed: vital signs. Data interpreted: Pulse oximetry: on room air is 100 %. pm1 Interpretation: normal. Counseling: I had a detailed discussion with the patient and/or guardian regarding: the historical points, exam findings, and any diagnostic results supporting the discharge/admit diagnosis, radiology results, the need for outpatient follow up, to return to the emergency department if symptoms worsen or persist or if there are any questions or concerns that arise at home. 01/12 20:20 Order name: Foot Right 3 View XRAY; Complete Time: 20:53 pm1 01/12 21:13 Order name: Crutches; Complete Time: 22:13 pm1 01/12 21:18 Order name: Post-op shoe; Complete Time: 22:13 pm1 01/12 21:18 Order name: Ezequiel Wrap; Complete Time: 22:13 pm1 Administered Medications: 20:24 Drug: HYDROcodone-acetaminophen 5 mg-325 mg 1 tabs Route: PO; kd3 22:12 Follow up: Response: No adverse reaction; Pain is decreased kd3 Disposition Summary: 01/12/22 21:12 Discharge Ordered Location: Home pm1 Problem: new pm1 Symptoms: have improved pm1 Condition: Stable pm1 Diagnosis - Other sprain of right foot pm1 Followup: pm1 - With: Emergency Department - When: As needed - Reason: Worsening of condition Followup: pm1 - With: Private Physician - When: 2 - 3 days - Reason: Recheck today's complaints, Continuance of care, Re-evaluation by your physician Discharge Instructions: - Discharge Summary Sheet sb3 Forms: - Medication Reconciliation Form pm1 - Thank You Letter pm1 - Antibiotic Education pm1 - Prescription Opioid Use pm1 - Work release form sb3 Addendum: 01/14/2022 07:20 Co-signature as Attending Physician, Kenny Storey MD I agree with the assessment and c espino plan of care. Signatures: Dispatcher [employer] Kenny Garcia MD MD cha Marinas, Patrick, DISTILLERY SUPERVISOR DISTILLERY SUPERVISOR pm1 Leonor Bond RN RN nuno3 Alicia Miramontes RN RN kd3
--- NOTE | 2022-01-12 21:13 | ER ---
Nurse's Notes [facility] Name: Nicolasa Rose Age: 26 yrs Sex: Female : 1995 Arrival Date: 01/12/2022 Time: 18:24 Bed 18 Private MD: Fernandez Langford Diagnosis: Other sprain of right foot Presentation: 01/12 18:52 Chief complaint: Patient states: she twisted her right foot into a hole when walking on ap3 Tuesday01/09/2022. Patient states she visited her PCP earlier today who wrote an order for an outpatient X-ray, however patient states she was unable to get to radiology prior to them closing and the pain of her right foot is not controlled with tylenol so she is here to be evaluated today in the ED. Coronavirus screen: At this time, the client does not indicate any symptoms associated with coronavirus-19. Ebola Screen: No symptoms or risks identified at this time. Initial Sepsis Screen: Does the patient meet any 2 criteria? No. Patient's initial sepsis screen is negative. Does the patient have a suspected source of infection? No. Patient's initial sepsis screen is negative. Risk Assessment: Do you want to hurt yourself or someone else? Patient reports no desire to harm self or others. Onset of symptoms was January 09, 2022. 18:52 Method Of Arrival: Ambulatory ap3 18:52 Acuity: ROSENDO 4 ap3 Triage Assessment: 18:55 General: Appears in no apparent distress. Behavior is calm, cooperative, appropriate ap3 for age. Pain: Complains of pain in right foot Pain currently is 4 out of 10 on a pain scale. Pain began suddenly, 2-3 days ago. Alleviated by rest, Aggravated by exercise, increased activity, repositioning, weight bearing. Neuro: Level of Consciousness is awake, alert, obeys commands, Oriented to person, place, time, situation, Appropriate for age Speech is normal. Cardiovascular: Patient's skin is warm and dry. Respiratory: Airway is patent Respiratory effort is even, unlabored, Respiratory pattern is regular, symmetrical. Musculoskeletal: Reports pain in right foot. [employer]: 18:56 LMP 01/01/2022 ap3 Historical: - Allergies: 18:54 Abilify; ap3 18:54 PENICILLINS; ap3 - Home Meds: 18:54 Trazodone Oral [Active]; Fluoxetine Oral [Active]; control [Active]; ap3 - PMHx: 18:54 Anxiety; Depression; ap3 - Immunization history:: Client reports receiving the 2nd dose of the Covid vaccine, Last tetanus immunization: up to date Flu vaccine is up to date. - Social history:: Smoking status: Patient denies any tobacco usage or history of. Patient uses alcohol, but reports only rare drinking. Screenin:56 Abuse screen: Denies threats or abuse. Nutritional screening: No deficits noted. ap3 Tuberculosis screening: No symptoms or risk factors identified. Fall Risk Fall in past 12 months (25 points). No secondary diagnosis (0 pts). No IV (0 pts). Ambulatory Aid- None/Bed Rest/Nurse Assist (0 pts). Gait- Normal/Bed Rest/Wheelchair (0 pts) Mental Status- Oriented to own ability (0 pts). Total Cates Fall Scale indicates Low Risk Score (25-44 pts). Vital Signs: 18:52 BP 106 / 57; Pulse 79; Resp 17; Temp 98.2; Pulse Ox 100% ; Weight 110.68 kg; Height 5 ap3 ft. 5 in. (165.10 cm); Pain 4/10; 18:52 Body Mass Index 40.60 (110.68 kg, 165.10 cm) ap3 ED Course: 18:24 Patient arrived in ED. as 18:24 Fernandez Langford DO is Private Physician. as 18:54 Triage completed. ap3 18:56 Arm band placed on right wrist. ap3 20:08 Sheng Muñoz NP is PHCP. pm1 20:08 Kenny Storey MD is Attending Physician. pm1 20:20 Alicia Miramontes, OWEN is Primary Nurse. kd3 20:34 Foot Right 3 View XRAY In Process Unspecified. EDMS 22:12 Patient has correct armband on for positive identification. Call light in reach. kd3 22:12 No provider procedures requiring assistance completed. Patient did not have IV access kd3 during this emergency room visit. Administered Medications: 20:24 Drug: HYDROcodone-acetaminophen 5 mg-325 mg 1 tabs Route: PO; kd3 22:12 Follow up: Response: No adverse reaction; Pain is decreased kd3 Outcome: 21:12 Discharge ordered by . pm1 22:12 Discharged to home ambulatory, with crutches. kd3 22:12 Condition: stable 22:12 Discharge instructions given to patient, Instructed on discharge instructions, follow up and referral plans. Demonstrated understanding of instructions, follow-up care. 22:13 Patient left the ED. kd3 Signatures: Dispatcher [employer] Mari Beltran Patrick, NP MANAGER APPOINTMENT pm1 Leonor Bond RN RN ap3 Alicia Miramontes RN RN kd3
[2022-01-13 13:13] VITALS: BP 106/57; TEMP 98.2; O2SAT 100
== END 2022-01-12 22:13 | disposition home or self-care (01) ==
LOC: ER 18:01
DX: S93.691A Other sprain of right foot, initial encounter (principal); F41.8 Other specified anxiety disorders; Z88.0 Allergy status to penicillin; Z88.8 Allergy status to other drugs, medicaments and biological substances
CPT/HCPCS: 99283

== ENCOUNTER 2022-01-25 20:53 | Emergency (ER) | payer OTHER ==
--- OUTSIDE RECORDS SUMMARY | 2022-01-25 21:05 | XMS REPORT | Continuity of Care Document ---
:1995 Author Organization [facility] Address [address] [place] [address] Care Team Providers Name Role Phone Bernardino LANGFORD Primary Care Physician Unavailable Bernardino Langford Attending Clinician Unavailable Lab, - Db Attending Clinician Unavailable Jacqueline CUSTOMER SUCCESS MANAGER Attending Clinician JACQUELINE Attending Clinician Unavailable PANCHO Attending Clinician Unavailable Raymond WEST Attending Clinician RAYMOND Attending Clinician Unavailable Ervin KIM Attending Clinician Leti Cheung MD Attending Clinician Opal C[facility] LIVING, G Attending Clinician ARVIND Attending Clinician Unavailable Arvind RENEE Attending Clinician ERVIN Attending Clinician Unavailable Chi WEAVER, T Attending Clinician Unavailable Jemal WETS, F Attending Clinician Doctor Unassigned, Name Attending Clinician Unavailable BRIDGETTE Attending Clinician Unavailable Rahul Angelo MD Attending Clinician Provider, Urgent Care Attending Clinician Unavailable Linda WEST, J Attending Clinician Cristobal LOW Attending Clinician Unavailable Efra Vazquez DO Attending Clinician Bridegtte RENEE Attending Clinician Tesha Sr MD Attending [...] Type Policy Number Effective Date Expiration Date [facility] [id number] 2019 CHOICE MEDICAID 00:00:00 Problems Condition Condition Condition Status Onset Resolution Last Treating Co mments Source Name Details Category Date Date Treatment Clinician Date Oligohydra Oligohydra Disease Active 2020-0 U nivers mnios mnios 4-22 ity of 00:00: [place] 00 [facility] Branch 38 weeks 38 weeks Disease Active 2020-0 Unive rs gestation gestation 4-22 ity of of of 00:00: [place] 00 [facility] Branch Morbid Morbid Disease Active 2020-0 Univers obesity [...] in third 00:00: [place] trimester trimester 00 [facility] Branch 26 weeks 26 weeks Disease Active 2020-0 Unive rs gestation gestation 1-27 ity of of of 00:00: [place] 00 [facility] Postprandi Postprandi Disease Active 2018-10 U nivers al nausea al nausea 2-29 ity of 00:00: [place] 00 [facility] Obesity Obesity Disease Active Univers (BMI (BMI 9-06 ity of 30-39.9) 30-39.9) 00:00: 00 [facility] 40 weeks 40 weeks Disease Active Unive rs gestation gestation 6-23 ity of of of 00:00: [place] 00 [facility] Active Active Disease Active Univers labor at labor at 6-23 ity of term term 00:00: [place] 00 [facility] Liveborn Liveborn Disease Active Unive rs infant, of infant, of 6-23 it y of re[place] , [place] d[place] born in born in [facility] by vaginal by vaginal delivery delivery Common Common Disease Active Overview: Univer s Discomfort Discomfort 3-28 Round it y of s of s of 00:00: ligament [place] 00 pain. [facility] History of History of Problem Resolve Univers back pain back pain HL7.CCDAR2 d ity of [place] [facility] History of History of Problem Resolve Univers depression depression HL7.CCDAR2 d ity of [place] [facility] Leg Leg Problem Active Univers swelling swelling HL7.CCDAR2 it y of [place] [facility] Acute Acute Problem Active Univers traumatic traumatic HL7.CCDAR2 ity of internal internal [place] derangemen derangemen Ph ysici t of left t of left ans knee, knee, initial initial encounter encounter Allergies, Adverse Reactions, Alerts Allergy Allergy Status Severity Reaction(s) Onset Inactive Treating Comm ents Source Name Type Date Date Clinician ARIPIPRA DRUG Active Rash 2014-10 Univers ZOLE INGREDI 2-31 ity of 00:00: [place] 00 [facility] PENICILL Drug Active Rash 2014-10 Univers INS Class 2-31 ity of 00:00: [place] 00 [facility] Aripipra Propensi Active Rash 2014-10 Univer s zole ty to 2-31 ity of adverse 00:00: [place] reaction 00 [facility] Penicill Propensi Active Rash 2014-10 Univer s ins ty to 2-31 ity of adverse 00:00: [place] reaction 00 [facility] Abilify drug Active Univers allergy [facility]y of [place] [facility] Penicill drug Active Univers ins allergy ity of [place] [facility] PCN Adverse Active Rash [facility] Abilify Adverse Active Rash [facility] Family History Family Member Diagnosis [...] Comments Source ASSERTION 2019-05-19 University of 00:00:00 [place] [facility] History SDOH University o f Alcohol Frequency [place] M ed[facility] History SDOH University o f Alcohol Std [place] Medical Drinks Branch History SDOH University o f Alcohol Binge [place] [facility] al Branch Exposure to Not sure [facility] SARS-CoV-2 [facility] (event) Branch Alcohol intake 2022-01-25 2022-01-25 Current drinker Unive rsity of 00:00:00 00:00:00 of alcohol [facility] (finding) Branch Alcohol Comment 2021-10-15 2021-10-15 social Universit y of 00:00:00 00:00:00 [facility] Tobacco use and 2021-04-12 2021-04-12 Never used Universit y of exposure 00:00:00 00:00:00 [facility] Sex [birth year] Universit y of 00:00:00 00:00:00 [facility] Smoking Status Start Date Stop Date Source Never smoker [facility] Medications Ordered Filled Start Stop Current Ordering Indication Dosage Frequency Signature Comments Components Source Medication Medication Date Date Medication? Clinician (SIG) Name Name L-Norgest&E Yes 1{tbl} Take 1 Un johnny Estradiol-E 4-18 tablet by ity of Estrad 09:50: mouth [place] (SIMPESSE) 16 daily. Medical 0.15 mg-30 Branch mcg (84)/10 mcg (7) per tablet L-Norgest&E Yes 1{tbl} Take 1 Un johnny Estradiol-E 4-18 tablet by ity of Estrad 09:50: mouth [place] (SIMPESSE) 16 daily. Medical 0.15 mg-30 Branch mcg (84)/10 mcg (7) per tablet ondansetron 0 Yes [id number] 4mg Take 1 Univers 4 mg 3-11 tablet by ity of disintegrat 00:00: mouth [place] ing tablet 00 every 8 Medica l (eight) Branch hours as needed for Nausea and Vomiting (N/V). dicyclomine 0 Yes [id number] 10mg Take 1 Univers 10 mg 3-11 capsule by ity of capsule 00:00: mouth 3 [place] 00 (three) Medical times Branch daily as needed for Abdominal pain. ondansetron 0 Yes [id number] 4mg Take 1 Univers 4 mg 3-11 tablet by ity of disintegrat 00:00: mouth [place] ing tablet 00 every 8 Medica l (eight) Branch hours as needed for Nausea and Vomiting (N/V). dicyclomine Yes [id number] 10mg Take 1 Univers 10 mg 3-11 capsule by ity of capsule 00:00: mouth 3 [place] 00 (three) Medical times Branch daily as needed for Abdominal pain. benzonatate 0 Yes [id number] 100mg Take 1 Univers (TESSALON 1-06 capsule by ity of PERLES) 100 00:00: mouth [place] mg capsule 00 every 8 Medica l (eight) Branch hours as needed for Cough. benzonatate 0 Yes [id number] 100mg Take 1 Univers (TESSALON 1-06 capsule by ity of PERLES) 100 00:00: mouth [place] mg capsule 00 every 8 Medica l (eight) Branch hours as needed for Cough. benzonatate 0 Yes [id number] 100mg Take 1 Univers (TESSALON 1-06 capsule by ity of PERLES) 100 00:00: mouth [place] mg capsule 00 every 8 Medica l (eight) Branch hours as needed for Cough. benzonatate 2021-0 Yes [id number] 100mg Take 1 Univers (TESSALON 1-06 capsule by ity of PERLES) 100 00:00: mouth [place] mg capsule 00 every 8 Medica l (eight) Branch hours as needed for Cough. benzonatate 2020-10 Yes [id number] 100mg Take 1 Univers (TESSALON 0-05 capsule by ity of PERLES) 100 00:00: mouth 3 [place] mg capsule 00 (three) Medica l times Branch daily as needed for Cough. benzonatate 2020-10 Yes [id number] 100mg Take 1 Univers (TESSALON 0-05 capsule by ity of PERLES) 100 00:00: mouth 3 [place] mg capsule 00 (three) Medica l times Branch daily as needed for Cough. benzonatate 2020-10 Yes [id number] 100mg Take 1 Univers (TESSALON 0-05 capsule by ity of PER[place]) 100 00:00: mouth 3 [place] capsule 00 (three) Medica l times Branch daily as needed for Cough. benzonatate 2020-10 Yes [id number] 100mg Take 1 Univers (TESSALON 0-05 capsule by ity of PERLES) 100 00:00: mouth 3 [place] capsule 00 (three) Medica l times Branch daily as needed for Cough. benzonatate 2020-10 Yes [id number] 100mg Take 1 Univers (TESSALON 0-05 capsule by ity of PER[place]) 100 00:00: mouth 3 [place] capsule 00 (three) Medica l times Branch daily as needed for Cough. benzonatate 2020-10 Yes [id number] 100mg Take 1 Univers (TESSALON 0-05 capsule by ity of PER[place]) 100 00:00: mouth 3 [place] capsule 00 (three) Medica l times Branch daily as needed for Cough. benzonatate 2020-10 Yes [id number] 100mg Take 1 Univers (TESSALON 0-05 capsule by ity of PERLES) 100 00:00: mouth 3 [place] capsule 00 (three) Medica l times Branch daily as needed for Cough. benzonatate 2020-10 Yes [id number] 100mg Take 1 Univers (TESSALON 0-05 capsule by ity of PERLES) 100 00:00: mouth 3 [place] mg capsule 00 (three) Medica l times Branch daily as needed for Cough. benzonatate 2020-10 Yes [id number] 100mg Take 1 Univers (TESSALON 0-05 capsule by ity of PERLES) 100 00:00: mouth 3 [place] mg capsule 00 (three) Medica l times Branch daily as needed for Cough. azelastine Yes [id number] 1{spray Use 1 Univers 137 mcg 06-30 } [place] in ity of (0.1 %) 00:00: each [place] nasal spray 00 nostril 2 Med ical (two) Branch times daily. Use in each nostril as directed fluticasone Yes [id number] 1{spray Use 1 Univers propionate 06-30 } [place] in ity of 50 00:00: each [place] mcg/actuati 00 nostril Medic al on nasal daily. Branch spray azelastine Yes [id number] 1{spray Use 1 Univers 137 mcg 06-30 } [place] in ity of (0.1 %) 00:00: each [place] nasal spray 00 nostril 2 Med ical (two) Branch times daily. Use in each nostril as directed fluticasone Yes [id number] 1{spray Use 1 Univers propionate 06-30 } [place] in ity of 50 00:00: each [place] mcg/actuati 00 nostril Medic al on nasal daily. Branch spray azelastine Yes [id number] 1{spray Use 1 Univers 137 mcg 06-30 } [place] in ity of (0.1 %) 00:00: each [place] nasal spray 00 nostril 2 Med ical (two) Branch times daily. Use in each nostril as directed fluticasone Yes [id number] 1{spray Use 1 Univers propionate 06-30 } [place] in ity of 50 00:00: each [place] mcg/actuati 00 nostril Medic al on nasal daily. Branch spray azelastine Yes [id number] 1{spray Use 1 Univers 137 mcg 06-30 } [place] in ity of (0.1 %) 00:00: each [place] nasal spray 00 nostril 2 Med ical (two) Branch times daily. Use in each nostril as directed fluticasone Yes [id number] 1{spray Use 1 Univers propionate 06-30 } [place] in ity of 50 00:00: each [place] mcg/actuati 00 nostril Medic al on nasal daily. Branch spray azelastine Yes [id number] 1{spray Use 1 Univers 137 mcg 06-30 } [place] in ity of (0.1 %) 00:00: each [place] nasal spray 00 nostril 2 Med ical (two) Branch times daily. Use in each nostril as directed fluticasone Yes [id number] 1{spray Use 1 Univers propionate 06-30 } [place] in ity of 50 00:00: each [place] mcg/actuati 00 nostril Medic al on nasal daily. Branch spray azelastine Yes [id number] 1{spray Use 1 Univers 137 mcg 06-30 } [place] in ity of (0.1 %) 00:00: each [place] nasal spray 00 nostril 2 Med ical (two) Branch times daily. Use in each nostril as directed fluticasone Yes [id number] 1{spray Use 1 Univers propionate 06-30 } [place] in ity of 50 00:00: each [place] mcg/actuati 00 nostril Medic al on nasal daily. Branch spray azelastine Yes [id number] 1{spray Use 1 Univers 137 mcg 06-30 } [place] in ity of (0.1 %) 00:00: each [place] nasal spray 00 nostril 2 Med ical (two) Branch times daily. Use in each nostril as directed fluticasone Yes [id number] 1{spray Use 1 Univers propionate 06-30 } [place] in ity of 50 00:00: each [place] mcg/actuati 00 nostril Medic al on nasal daily. Branch spray azelastine Yes [id number] 1{spray Use 1 Univers 137 mcg 06-30 } [place] in ity of (0.1 %) 00:00: each [place] nasal spray 00 nostril 2 Med ical (two) Branch times daily. Use in each nostril as directed fluticasone Yes [id number] 1{spray Use 1 Univers propionate 06-30 } [place] in ity of 50 00:00: each [place] mcg/actuati 00 nostril Medic al on nasal daily. Branch spray azelastine Yes [id number] 1{spray Use 1 Univers 137 mcg 06-30 } [place] in ity of (0.1 %) 00:00: each [place] nasal spray 00 nostril 2 Med ical (two) Branch times daily. Use in each nostril as directed fluticasone Yes [id number] 1{spray Use 1 Univers propionate 06-30 } [place] in ity of 50 00:00: each [place] mcg/actuati 00 nostril Medic al on nasal daily. Branch spray azelastine Yes [id number] 1{spray Use 1 Univers 137 mcg 06-30 } [place] in ity of (0.1 %) 00:00: each [place] nasal spray 00 nostril 2 Med ical (two) Branch times daily. Use in each nostril as directed fluticasone Yes [id number] 1{spray Use 1 Univers propionate 06-30 } [place] in ity of 50 00:00: each [place] mcg/actuati 00 nostril Medic al on nasal daily. Branch spray azelastine Yes [id number] 1{spray Use 1 Univers 137 mcg 06-30 } [place] in ity of (0.1 %) 00:00: each [place] nasal spray 00 nostril 2 Med ical (two) Branch times daily. Use in each nostril as directed fluticasone Yes [id number] 1{spray Use 1 Univers propionate 06-30 } [place] in ity of 50 00:00: each [place] mcg/actuati 00 nostril Medic al on nasal daily. Branch spray azelastine Yes [id number] 1{spray Use 1 Univers 137 mcg 06-30 } [place] in ity of (0.1 %) 00:00: each [place] nasal spray 00 nostril 2 Med ical (two) Branch times daily. Use in each nostril as directed fluticasone Yes [id number] 1{spray Use 1 Univers propionate 06-30 } [place] in ity of 50 00:00: each [place] mcg/actuati 00 nostril Medic al on nasal daily. Branch spray azelastine Yes [id number] 1{spray Use 1 Univers 137 mcg 06-30 } [place] in ity of (0.1 %) 00:00: each [place] nasal spray 00 nostril 2 Med ical (two) Branch times daily. Use in each nostril as directed fluticasone 2020-0 Yes [id number] 1{spray Use 1 Univers propionate 06-30 } [place] in ity of 50 00:00: each [place] mcg/actuati 00 nostril Medic al on nasal daily. Branch spray methylPREDN 2020- No [id number] Take by [facility] 4 06-30 mouth ity of mg tablets 00:00: 04:59 SEE-INSTRU [place] 00 :00 CTIONS for Medical 6 days. Branch follow package directions methylPREDN 2020- No [id number] Take by [facility] 4 06-30 mouth ity of mg tablets 00:00: 04:59 SEE-INSTRU [place] 00 :00 CTIONS for Medical 6 days. Branch follow package directions methylPREDN 2020- No [id number] Take by [facility] 4 06-30 mouth ity of mg tablets 00:00: 04:59 SEE-INSTRU [place] 00 :00 CTIONS for Medical 6 days. Branch follow package directions methylPREDN 2020- No [id number] Take by [place] [id number] 06-30 mouth ity of mg tablets 00:00: 04:59 SEE-INSTRU [place] 00 :00 CTIONS for Medical 6 days. Branch follow package directions ivermectin 2020-0 Yes Univers 3 mg tablet 9-20 ity of 00:00: [facility] ivermectin 2020-0 Yes Univers 3 mg tablet 9-20 ity of 00:00: [place] [facility] ivermectin 2020-0 Yes Univers 3 mg tablet 9-20 ity of 00:00: [facility] ivermectin 2020-0 Yes Univers 3 mg tablet 9-20 ity of 00:00: [facility] ivermectin 2020-0 Yes Univers 3 mg tablet 9-20 ity of 00:00: [facility] ivermectin 2020-0 Yes Univers 3 mg tablet 9-20 ity of 00:00: [facility] ivermectin 2020-0 Yes Univers 3 mg tablet 9-20 ity of 00:00: [facility] ivermectin 0 Yes Univers 3 mg tablet 9-20 ity of 00:: [facility] ivermectin Yes Univers 3 mg tablet 9-20 ity of 00:: [facility] ivermectin 0 Yes Univers 3 mg tablet 9-20 ity of 00:00: [facility] ivermectin Yes Univers 3 mg tablet 9-20 ity of 00:: [facility] ivermectin Yes Univers 3 mg tablet 9-20 ity of 00:: [facility] ivermectin Yes Univers 3 mg tablet 9-20 ity of 00:: [facility] benzonatate 2020- No 100mg 100 mg, U nivers (TESSALON 06-21 Oral, ity of PERLES) 22:00: 21:01 ONCE, 1 [place] capsule 100 00 :00 dose, On Medi johnny mg [facility] 06/21/21 at 1700, Routine albuterol 2020- No 6{puff} 6 Puff, U nivers (VENTOLIN) 06-21 Inhalation it y of inhaler 6 22:00: 21:04 , ONCE, 1 [place] Puff 00 :00 dose, On Medical [facility] 06/21/21 at 1700, ARVIN benzonatate Yes [id number] 100mg Take 1 Univers 100 mg 9-12 capsule by ity of capsule 00:00: mouth 3 (three) Medical times Branch daily as needed for Cough. ondansetron Yes [id number] 4mg Take 1 Univers 4 mg 9-12 tablet by ity of disintegrat 00:00: mouth [place] ing tablet 00 every 8 Medica l (eight) Branch hours as needed for Nausea and Vomiting (N/V). benzonatate 0 Yes [id number] 100mg Take 1 Univers 100 mg 9-12 capsule by ity of capsule 00:00: mouth 3 [place] 00 (three) Medical times Branch daily as needed for Cough. ondansetron Yes [id number] 4mg Take 1 Univers 4 mg 9-12 tablet by ity of disintegrat 00:00: mouth [place] ing tablet 00 every 8 Medica l (eight) Branch hours as needed for Nausea and Vomiting (N/V). benzonatate 2020-0 Yes [id number] 100mg Take 1 Univers 100 mg 9-12 capsule by ity of capsule 00:00: mouth 3 [place] 00 (three) Medical times Branch daily as needed for Cough. ondansetron 2020-0 Yes [id number] 4mg Take 1 Univers 4 mg 9-12 tablet by ity of disintegrat 00:00: mouth [place] ing tablet 00 every 8 Medica l (eight) Branch hours as needed for Nausea and Vomiting (N/V). benzonatate 2020-0 Yes [id number] 100mg Take 1 Univers 100 mg 9-12 capsule by ity of capsule 00:00: mouth 3 [place] 00 (three) Medical times Branch daily as needed for Cough. ondansetron 2020-0 Yes [id number] 4mg Take 1 Univers 4 mg 9-12 tablet by ity of disintegrat 00:00: mouth [place] ing tablet 00 every 8 Medica l (eight) Branch hours as needed for Nausea and Vomiting (N/V). ondansetron 2020-0 Yes [id number] 4mg Take 1 Univers 4 mg 9-12 tablet by ity of disintegrat 00:00: mouth [place] ing tablet 00 every 8 Medica l (eight) Branch hours as needed for Nausea and Vomiting (N/V). ondansetron 2020-0 Yes [id number] 4mg Take 1 Univers 4 mg 9-12 tablet by ity of disintegrat 00:00: mouth [place] ing tablet 00 every 8 Medica l (eight) Branch hours as needed for Nausea and Vomiting (N/V). ondansetron 2020-0 Yes [id number] 4mg Take 1 Univers 4 mg 9-12 tablet by ity of disintegrat 00:00: mouth [place] ing tablet 00 every 8 Medica l (eight) Branch hours as needed for Nausea and Vomiting (N/V). ondansetron 2021-0 Yes [id number] 4mg Take 1 Univers 4 mg 9-12 tablet by ity of disintegrat 00:00: mouth [place] ing tablet 00 every 8 Medica l (eight) Branch hours as needed for Nausea and Vomiting (N/V). ondansetron 2021-0 Yes [id number] 4mg Take 1 Univers 4 mg 9-12 tablet by ity of disintegrat 00:00: mouth [place] ing tablet 00 every 8 Medica l (eight) Branch hours as needed for Nausea and Vomiting (N/V). ondansetron 0 Yes [id number] 4mg Take 1 Univers 4 mg 9-12 tablet by ity of disintegrat 00:00: mouth [place] ing tablet 00 every 8 Medica l (eight) Branch hours as needed for Nausea and Vomiting (N/V). ondansetron 0 Yes [id number] 4mg Take 1 Univers 4 mg 9-12 tablet by ity of disintegrat 00:00: mouth [place] ing tablet 00 every 8 Medica l (eight) Branch hours as needed for Nausea and Vomiting (N/V). benzonatate Yes [id number] 100mg Take 1 Univers 100 mg 9-12 capsule by ity of capsule 00:00: mouth 3 [place] 00 (three) Medical times Branch daily as needed for Cough. ondansetron Yes [id number] 4mg Take 1 Univers 4 mg 9-12 tablet by ity of disintegrat 00:00: mouth [place] ing tablet 00 every 8 Medica l (eight) Branch hours as needed for Nausea and Vomiting (N/V). benzonatate Yes [id number] 100mg Take 1 Univers 100 mg 9-12 capsule by ity of capsule 00:00: mouth 3 [place] 00 (three) Medical times Branch daily as needed for Cough. ondansetron Yes [id number] 4mg Take 1 Univers 4 mg 9-12 tablet by ity of disintegrat 00:00: mouth [place] ing tablet 00 every 8 Medica l (eight) Branch hours as needed for Nausea and Vomiting (N/V). benzonatate 2020- No [id number] 100mg Take 1 Univers 100 mg 9-12 10-05 capsule by ity of capsule 00:00: 00:00 mouth 3 [place] 00 :00 (three) Medical times Branch daily as needed for Cough. traZODone Yes TAKE ONE Univ ers 50 mg 9-08 (1) ity of tablet 00:00: TABLET(S) [place] 00 BY MOUTH Medical AT BEDTIME Branch NEEDED. traZODone 0 Yes TAKE ONE Univ ers 50 mg 9-08 (1) ity of tablet 00:00: TABLET(S) [place] 00 BY MOUTH Medical AT BEDTIME Branch NEEDED. traZODone 1-0 Yes TAKE ONE Univ ers 50 mg 9-08 (1) ity of tablet 00:00: TABLET(S) [place] 00 BY MOUTH Medical AT BEDTIME Branch NEEDED. traZODone 2020-0 Yes TAKE ONE Univ ers 50 mg 9-08 (1) ity of tablet 00:00: TABLET(S) [place] 00 BY MOUTH Medical AT BEDTIME [place] NEEDED. traZODone 2020-0 Yes TAKE ONE Univ ers 50 mg 9-08 (1) ity of tablet 00:00: TABLET(S) [place] 00 BY MOUTH Medical AT BEDTIME Branch NEEDED. traZODone 2020-0 Yes TAKE ONE Univ ers 50 mg 9-08 (1) ity of tablet 00:00: TABLET(S) [place] [facility] [place] [facility] traZ[facility]one 2020-0 Yes TAKE ONE Univ ers 50 mg 9-08 (1) ity of tablet 00:00: TABLET(S) [place] 00 BY MOUTH Medical AT BEDTIME [place] NEEDED. traZODone 2020-0 Yes TAKE ONE Univ ers 50 mg 9-08 (1) ity of tablet 00:00: TABLET(S) [place] 00 BY MOUTH Medical AT BEDTIME Branch NEEDED. traZODone 2020-0 Yes TAKE ONE Univ ers 50 mg 9-08 (1) ity of tablet 00:00: TABLET(S) [place] 00 BY MOUTH Medical AT BEDTIME [place] NEEDED. traZODone 2020-0 Yes TAKE ONE Univ ers 50 mg 9-08 (1) ity of tablet 00:00: TABLET(S) [place] 00 BY MOUTH Medical AT BEDTIME [place] NEEDED. traZODone 2020-0 Yes TAKE ONE Univ ers 50 mg 9-08 (1) ity of tablet 00:00: TABLET(S) [place] 00 BY MOUTH Medical AT BEDTIME Branch NEEDED. traZODone 2020-0 Yes TAKE ONE Univ ers 50 mg 9-08 (1) ity of tablet 00:00: TABLET(S) [place] 00 BY MOUTH Medical AT BEDTIME [place] NEEDED. traZODone 2020-0 Yes TAKE ONE Univ ers 50 mg 9-08 (1) ity of tablet 00:00: TABLET(S) 00 BY MOUTH Medical AT BEDTIME Branch NEEDED. lidocaine 2020- No [id number] 1mL Uni vers 1% (PF) 04-12 ity of (XYLOCAINE) 19:00: 17:56 [place] injection 1 00 :00 Medical mL Branch lidocaine 2020- No [id number] 1mL 1 mL, Un johnny 1% (PF) 04-12 Intramuscu ity o f (XYLOCAINE) 19:00: 17:56 lar, ONCE, [place] injection 1 00 :00 1 dose, Medic al mL [place] 04/12/21 Branch at 1400, Routine lidocaine 2020- No [id number] 1mL Uni vers 1% (PF) 04-12 ity of (XYLOCAINE) 19:00: 17:56 [place] injection 1 00 :00 Medical mL Branch lidocaine 2020- No [id number] 1mL 1 mL, Un johnny 1% (PF) 04-12 Intramuscu ity o f (XYLOCAINE) 19:00: 17:56 lar, ONCE, [place] injection 1 00 :00 1 dose, Medic al mL [place] 04/12/21 Branch at 1400, Routine cefTRIAXone 2020- No [id number] 500mg Univers (ROCEPHIN) 04-12 ity of injection 18:45: 17:55 [place] 500 mg 00 :00 Medical Branch cefTRIAXone 2020- No [id number] 500mg 500 mg, Univers (ROCEPHIN) 04-12 Intramuscu it y of injection 18:45: 17:55 [place], ONCE, [place] 500 mg 00 :00 1 dose, Medical [place] 04/12/21 Branch at 1345, ARVIN
Re ason for Anti-Infec tive: Empiric Therapy for Suspected Infection< br>Empiric Therapy Site: Pelvic
Duration of therapy: 72 hours cefTRIAXone 2020- No [id number] 500mg Univers (ROCEPHIN) 04-12 ity of injection 18:45: 17:55 [place] 500 mg 00 :00 Medical Branch cefTRIAXone 2020- No [id number] 500mg 500 mg, Univers (ROCEPHIN) 7-04 07-04 Intramuscu it y of injection 18:45: 17:55 [place], ONCE, [place] 500 mg 00 :00 1 dose, Medical [place] 04/12/21 Branch at 1345, ARVIN
Re ason for Anti-Infec tive: Empiric Therapy for Suspected Infection< br>Empiric Therapy Site: Pelvic
Duration of therapy: 72 hours azithromyci 202-0 Yes [id number] 4 tabs now Univers n 250 mg 7-04 and 4 tabs ity o f tablet 00:00: in 1 week [place] [id number] Medical Branch metoclopram 202-0 Yes [id number] 1 tab Univers demetris HCl 10 7-04 every 4hr ity of mg tablet 00:00: as needed [place] as 00 for nausea Medical Branch azithromyci 2021-0 Yes [id number] 4 tabs now Univers n 250 mg 7-04 and 4 tabs ity o f tablet 00:00: in 1 week [place] [place] [address] [facility] metoclopram 2021-0 Yes [id number] 1 tab [facility] demetris HCl 10 7-04 every 4hr ity of mg tablet 00:00: as needed [place] 00 for nausea [facility] Branch azithromyci 2021-0 Yes [id number] tabs now [facility] n 250 mg 7-04 and 4 tabs ity o f tablet 00:00: in 1 week [place] [address] [facility] metoclopram 2021-0 Yes [id number] 1 tab [facility] demetris HCl 10 7-04 every 4hr ity of mg tablet 00:00: as needed [place] 00 for nausea [facility] azithromyci 2021-0 Yes [id number] tabs now [facility] n 250 mg 7-04 and 4 tabs ity o f tablet 00:00: in 1 week [place] [address] [facility] metoclopram 2021-0 Yes [id number] 1 tab [facility] demetris HCl 10 7-04 every 4hr ity of mg tablet 00:00: as needed [place] 00 for nausea [facility] Branch azithromyci 2021-0 Yes [id number] tabs now [facility] n 250 mg 7-04 and 4 tabs ity o f tablet 00:00: in [address] metoclopram 2021-0 Yes [id number] 1 tab [facility] demetris HCl 10 7-04 every 4hr ity of mg tablet 00:00: as needed [place] 00 for nausea [facility] azithromyci 2021-0 Yes [id number] tabs now [facility] n 250 mg 7-04 and 4 tabs ity o f tablet 00:00: in 1 week [place] [facility] metoclopram 2021-0 Yes [id number] 1 tab [facility] demetris HCl 10 7-04 every 4hr ity of mg tablet 00:00: as needed [place] 00 for nausea [facility] azithromyci 2021-0 Yes [id number] tabs now [facility] n 250 mg 7-04 and 4 tabs ity o f tablet 00:00: in 1 week [place] [address] [facility] metoclopram 2021-0 Yes [id number] 1 tab [facility] demetris HCl 10 7-04 every 4hr ity of mg tablet 00:00: as needed [place] 00 for nausea [facility] azithromyci 2021-0 Yes [id number] tabs now [facility] n 250 mg 7-04 and 4 tabs ity o f tablet 00:00: in 1 week [place] [address] [facility] metoclopram 2021-0 Yes [id number] 1 tab [facility] demetris HCl 10 7-04 every 4hr ity of mg tablet 00:00: as needed [place] 00 for nausea [facility] azithromyci 2021-0 Yes [id number] tabs now [facility] n 250 mg 7-04 and 4 tabs ity o f tablet 00:00: in 1 week [place] [address] [facility] metoclopram 2021-0 Yes [id number] 1 tab [facility] demetris HCl 10 7-04 every 4hr ity of mg tablet 00:00: as needed [place] 00 for nausea [facility] azithromyci 2021-0 Yes [id number] tabs now [facility] n 250 mg 7-04 and 4 tabs ity o f tablet 00:00: in 1 week [place] [address] [facility] metoclopram 2021-0 Yes [id number] 1 tab [facility] demetris HCl 10 7-04 every 4hr ity of mg tablet 00:00: as needed [place] 00 for nausea [facility] azithromyci 2021-0 Yes [id number] tabs now [facility] n 250 mg 7-04 and 4 tabs ity o f tablet 00:00: in 1 week [place] [address] [facility] metoclopram 2021-0 Yes [id number] 1 tab [facility] demetris HCl 10 7-04 every 4hr ity of mg tablet 00:00: as needed [place] 00 for nausea [facility] azithromyci 2021-0 Yes [id number] tabs now [facility] n 250 mg 7-04 and 4 tabs ity o f tablet 00:00: in 1 week [place] [facility] metoclopram 2021-0 Yes [id number] 1 tab [facility] demetris HCl 10 7-04 every 4hr ity of mg tablet 00:00: as needed [place] 00 for nausea [facility] azithromyci 2021-0 Yes [id number] tabs now [facility] n 250 mg 7-04 and 4 tabs ity o f tablet 00:00: in 1 week [place] [facility] metoclopram 2021-0 Yes [id number] 1 tab [facility] demetris HCl 10 7-04 every 4hr ity of mg tablet 00:00: as needed [place] 00 for nausea [facility] azithromyci 2021-0 Yes [id number] tabs now [facility] n 250 mg 7-04 and 4 tabs ity o f tablet 00:00: in 1 week [place] [address] [facility] metoclopram 2021-0 Yes [id number] 1 tab [facility] demetris HCl 10 7-04 every 4hr ity of mg tablet 00:00: as needed [place] 00 for nausea [facility] azithromyci 2021-0 Yes [id number] tabs now [facility] n 250 mg 7-04 and 4 tabs ity o f tablet 00:00: in 1 week [place] [facility] metoclopram 2021-0 Yes [id number] 1 tab [facility] demetris HCl 10 7-04 every 4hr ity of mg tablet 00:00: as needed [place] 00 for nausea [facility] metoclopram 2021-0 Yes [id number] 1 tab [facility] demetris HCl 10 7-04 every 4hr ity of mg tablet 00:00: as needed [place] 00 for nausea [facility] metoclopram 2021-0 Yes [id number] 1 tab [facility] demetris HCl 10 7-04 every 4hr ity of mg tablet 00:00: as needed [place] 00 for nausea [facility] azithromyci 2021-0 Yes [id number] tabs now [facility] n 250 mg 7-04 and 4 tabs ity o f tablet 00:00: in 1 week [place] [facility] metoclopram 2020-0 Yes [id number] 1 tab [facility] demetris HCl 10 7-04 every 4hr ity of mg tablet 00:00: as needed [place] 00 for nausea [facility] azithromyci 2020-0 Yes [id number] tabs now [facility] n 250 mg 7-04 and 4 tabs ity o f tablet 00:00: in 1 week [place] [facility] metoclopram 2020-0 Yes [id number] 1 tab [facility] demetris HCl 10 7-04 every 4hr ity of mg tablet 00:00: as needed [place] 00 for nausea [facility] Branch metroNIDAZO 2020-0 Yes [id number] 500mg Take 1 [facility] LE 500 mg 1-05 tablet by ity o f tablet 00:00: mouth [place] 00 every 12 Medical (twelve) Branch hours. metroNIDAZO 2020-0 Yes [id number] 500mg Take 1 [facility] LE 500 mg 1-05 tablet by ity o f tablet 00:00: mouth [place] 00 every 12 Medical (twelve) Branch hours. metroNIDAZO 0 Yes [id number] 500mg Take 1 [facility] LE 500 mg 1-05 tablet by ity o f tablet 00:00: mouth [place] 00 every 12 Medical (twelve) Branch hours. metroNIDAZO 2020-0 Yes [id number] 500mg Take 1 [facility] LE 500 mg 1-05 tablet by ity o f tablet 00:00: mouth [place] 00 every 12 Medical (twelve) Branch hours. metroNIDAZO 2020-0 Yes [id number] 500mg Take 1 [facility] LE 500 mg 1-05 tablet by ity o f tablet 00:00: mouth [place] 00 every 12 Medical (twelve) Branch hours. metroNIDAZO 2020-0 Yes [id number] 500mg Take 1 [facility] LE 500 mg 1-05 tablet by ity o f tablet 00:00: mouth [place] 00 every 12 Medical (twelve) Branch hours. metroNIDAZO 2020-0 Yes [id number] 500mg Take 1 [facility] LE 500 mg 1-05 tablet by ity o f tablet 00:00: mouth [place] 00 every 12 Medical (twelve) Branch hours. metroNIDAZO 2020-0 Yes [id number] 500mg Take 1 [facility] LE 500 mg 1-05 tablet by ity o f tablet 00:00: mouth [place] 00 every 12 Medical (twelve) Branch hours. metroNIDAZO 2020-0 Yes [id number] 500mg Take 1 [facility] LE 500 mg 1-05 tablet by ity o f tablet 00:00: mouth [place] 00 every 12 Medical (twelve) Branch hours. metroNIDAZO 2020-0 Yes [id number] 500mg Take 1 [facility] LE 500 mg 1-05 tablet by ity o f tablet 00:00: mouth [place] 00 every 12 Medical (twelve) Branch hours. metroNIDAZO 2020-0 Yes [id number] 500mg Take 1 [facility] LE 500 mg 1-05 tablet by ity o f tablet 00:00: mouth [place] 00 every 12 Medical (twelve) Branch hours. metroNIDAZO 2020-0 Yes [id number] 500mg Take 1 [facility] LE 500 mg 1-05 tablet by ity o f tablet 00:00: mouth [place] 00 every 12 Medical (twelve) Branch hours. metroNIDAZO 2020-0 Yes [id number] 500mg Take 1 [facility] LE 500 mg 1-05 tablet by ity o f tablet 00:00: mouth [place] 00 every 12 Medical (twelve) Branch hours. metroNIDAZO 2020-0 Yes [id number] 500mg Take 1 [facility] LE 500 mg 1-05 tablet by ity o f tablet 00:00: mouth [place] 00 every 12 Medical (twelve) Branch hours. metroNIDAZO 2020-0 Yes [id number] 500mg Take 1 [facility] LE 500 mg 1-05 tablet by ity o f tablet 00:00: mouth [place] 00 every 12 Medical (twelve) Branch hours. metroNIDAZO 2020-0 Yes [id number] 500mg Take 1 [facility] LE 500 mg 1-05 tablet by ity o f tablet 00:00: mouth [place] 00 every 12 Medical (twelve) Branch hours. metroNIDAZO 2020-0 Yes [id number] 500mg Take 1 [facility] LE 500 mg 1-05 tablet by ity o f tablet 00:00: mouth [place] 00 every 12 Medical (twelve) Branch hours. metroNIDAZO 1-0 Yes [id number] 500mg Take 1 [facility] LE 500 mg 1-05 tablet by ity o f tablet 00:00: mouth [place] 00 every 12 Medical (twelve) Branch hours. metroNIDAZO 2020-0 Yes [id number] 500mg Take 1 [facility] LE 500 mg 1-05 tablet by ity o f tablet 00:00: mouth [place] 00 every 12 Medical (twelve) Branch hours. metroNIDAZO Yes [id number] 500mg Take 1 [facility] LE 500 mg 1-05 tablet by ity o f tablet 00:00: mouth [place] 00 every 12 Medical (twelve) Branch hours. metroNIDAZO Yes [id number] 500mg Take 1 [facility] LE 500 mg 1-05 tablet by ity o f tablet 00:00: mouth [place] 00 every 12 Medical (twelve) Branch hours. metroNIDAZO Yes [id number] 500mg Take 1 [facility] LE 500 mg 1-05 tablet by ity o f tablet 00:00: mouth [place] 00 every 12 Medical (twelve) Branch hours. fluoxetine 2019-10 Yes 20mg Take 20 mg U nivers HCl 2-22 by mouth ity of (FLUOXETINE 16:47: [place]. [place] [facility] L-Norgest&E 2019-10 Yes 1{tbl} Take 1 Un johnny Estradiol-E 2-22 tablet by ity of Estrad 16:47: mouth [place] (SIMPESSE) 55 daily. Medical 0.15 mg-30 Branch mcg (84)/10 mcg (7) per tablet fluoxetine 2019-10 Yes 20mg Take 20 mg U nivers HCl 2-22 by mouth ity of (FLUOXETINE 16:47: [place]. [place] 55 [facility] L-Norgest&E 2019-10 Yes 1{tbl} Take 1 Un jonhny Estradiol-E 2-22 tablet by ity of Estrad 16:47: mouth [place] (SIMPESSE) 55 daily. Medical 0.15 mg-30 Branch mcg (84)/10 mcg (7) per tablet fluoxetine 2019-10 Yes 20mg Take 20 mg U nivers HCl 2-22 by mouth ity of (FLUOXETINE 16:47: [place]. [place] 55 [facility] L-Norgest&E 2019-10 Yes 1{tbl} Take 1 Un johnny Estradiol-E 2-22 tablet by ity of Estrad 16:47: mouth [place] (SIMPESSE) 55 daily. Medical 0.15 mg-30 Branch mcg (84)/10 mcg (7) per tablet fluoxetine 2019-10 Yes 20mg Take 20 mg U nivers HCl 2-22 by mouth ity of (FLUOXETINE 16:47: [place]. [place] 55 [facility] LNorgest&E 2019-10 Yes 1{tbl} Take 1 Un [place] Estradiol-E 2-22 tablet by ity of Estrad 16:47: mouth [place] (SIMPESSE) 55 daily. Medical 0.15 mg-30 Branch mcg (84)/10 mcg (7) per tablet fluoxetine 2019-10 Yes 20mg Take 20 mg U nivers HCl 2-22 by mouth ity of (FLUOXETINE 16:47[place] [place] [facility] Take 1 Un [place] Estradiol-E 2-22 tablet by ity of Estrad 16:47: mouth [place] (SIMPESSE) 55 daily. Medical 0.15 mg-30 Branch mcg (84)/10 mcg (7) per tablet fluoxetine 2019-10 Yes 20mg Take 20 mg U nivers HCl 2-22 by mouth ity of (FLUOXETINE 16:47[place]. [place] [facility] 1{tbl} Take 1 Un johnny Estradiol-E 2-22 tablet by ity of Estrad 16:47: mouth [place] (SIMPESSE) 55 daily. Medical 0.15 mg-30 Branch mcg (84)/10 mcg (7) per tablet fluoxetine 2019-10 Yes 20mg Take 20 mg U nivers HCl 2-22 by mouth ity of (FLUOXETINE 16:47[place] [facility] Yes 1{tbl} Take 1 Un [place]ohn[place] Estradiol-E 2-22 tablet by ity of Estrad 16:47: mouth [place] (SIMPESSE) 55 daily. Medical 0.15 mg-30 Branch mcg (84)/10 mcg (7) per tablet fluoxetine 2019-10 Yes 20mg Take 20 mg U nivers HCl 2-22 by mouth ity of (FLUOXETINE 16:47[place] [facility]} Take 1 Un johnny Estradiol-E 2-22 tablet by ity of Estrad 16:47: mouth [place] (SIMPESSE) 55 daily. Medical 0.15 mg-30 Branch mcg (84)/10 mcg (7) per tablet fluoxetine 2019-10 Yes 20mg Take 20 mg U nivers HCl 2-22 by mouth ity of (FLUOXETINE 16:47: [place]. [place] [facility] Yes 1{tbl} Take 1 Un [place]ohn[facility] Estradiol-E 2-22 tablet by ity of Estrad 16:47: mouth [place] (SIMPESSE) 55 daily. Medical 0.15 mg-30 Branch mcg (84)/10 mcg (7) per tablet fluoxetine 2019-10 Yes 20mg Take 20 mg U nivers HCl 2-22 by mouth ity of (FLUOXETINE 16:47: [place]. [place] 55 [facility] Yes 1{tbl} Take 1 Un johnny Estradiol-E 2-22 tablet by ity of Estrad 16:47: mouth [place] (SIMPESSE) 55 daily. Medical 0.15 mg-30 Branch mcg (84)/10 mcg (7) per tablet fluoxetine 2019-10 Yes 20mg Take 20 mg U nivers HCl 2-22 by mouth ity of (FLUOXETINE 16:47: [place]. [place] [facility] Yes 1{tbl} Take 1 Un johnny Estradiol-E 2-22 tablet by ity of Estrad 16:47: mouth [place] (SIMPESSE) 55 daily. Medical 0.15 mg-30 Branch mcg (84)/10 mcg (7) per tablet fluoxetine 2019-10 Yes 20mg Take 20 mg U nivers HCl 2-22 by mouth ity of (FLUOXETINE 16:47: [place]. [place] 55 [facility] Yes 1{tbl} Take 1 Un [place] Estradiol-E 2-22 tablet by ity of Estrad 16:47: mouth [place] (SIMPESSE) 55 daily. Medical 0.15 mg-30 Branch mcg (84)/10 mcg (7) per tablet fluoxetine 2019-10 Yes 20mg Take 20 mg U nivers HCl 2-22 by mouth ity of (FLUOXETINE 16:47: [place]. [place] [facility] Yes 1{tbl} Take 1 Un [place] Estradiol-E 2-22 tablet by ity of Estrad 16:47: mouth [place] (SIMPESSE) 55 daily. Medical 0.15 mg-30 Branch mcg (84)/10 mcg (7) per tablet fluoxetine 2019-10 Yes 20mg Take 20 mg U nivers HCl 2-22 by mouth ity of (FLUOXETINE 10:47: [place]. [place] 55 [facility] Yes 1{tbl} Take 1 Un [place] Estradiol-E 2-22 tablet by ity of Estrad 10:47: mouth [place] (SIMPESSE) 55 daily. Medical 0.15 mg-30 Branch mcg (84)/10 mcg (7) per tablet fluoxetine 2019-10 Yes 20mg Take 20 mg U nivers HCl 2-22 by mouth ity of (FLUOXETINE 10:47: [place]. [place] [facility] Yes 1{tbl} Take 1 Un [place] Estradiol-E 2-22 tablet by ity of Estrad 10:47: mouth [place] (SIMPESSE) 55 daily. Medical 0.15 mg-30 Branch mcg (84)/10 mcg (7) per tablet fluoxetine 2019-10 Yes 20mg Take 20 mg U nivers HCl 2-22 by mouth ity of (FLUOXETINE 10:47: [place]. [place] [facility] Yes 1{tbl} Take 1 Un [place] Estradiol-E 2-22 tablet by ity of Estrad 10:47: mouth [place] (SIMPESSE) 55 daily. Medical 0.15 mg-30 Branch mcg (84)/10 mcg (7) per tablet fluoxetine 2019-10 Yes 20mg Take 20 mg U nivers HCl 2-22 by mouth ity of (FLUOXETINE 10:47: [place]. [place] 55 [facility] Yes 1{tbl} Take 1 Un [place] Estradiol-E 2-22 tablet by ity of Estrad 10:47: mouth [place] (SIMPESSE) 55 daily. Medical 0.15 mg-30 Branch mcg (84)/10 mcg (7) per tablet fluoxetine 2019-10 Yes 20mg Take 20 mg U nivers HCl 2-22 by mouth ity of (FLUOXETINE 10:47: [place]. [place] [facility] Yes 1{tbl} Take 1 Un [place] Estradiol-E 2-22 tablet by ity of Estrad 10:47: mouth [place] (SIMPESSE) 55 daily. Medical 0.15 mg-30 Branch mcg (84)/10 mcg (7) per tablet fluoxetine 2019-10 Yes 20mg Take 20 mg U nivers HCl 2-22 by mouth ity of (FLUOXETINE 10:47: daily. [place] 55 Medical [place]orgest&E 2019-10 Yes 1{tbl} Take 1 Un johnny Estradiol-E 2-22 tablet by ity of Estrad 10:47: mouth [place] (SIMPESSE) 55 daily. Medical 0.15 mg-30 Branch mcg (84)/10 mcg (7) per tablet fluoxetine 2019-10 Yes 20mg Take 20 mg U nivers HCl 2-22 by mouth ity of (FLUOXETINE 10:47: [place]. [place] 55 [facility] Yes 1{tbl} Take 1 Un [facility]ohnny Estradiol-E 2-22 tablet by ity of Estrad 10:47: mouth [place] (SIMPESSE) 55 daily. Medical 0.15 mg-30 Branch mcg (84)/10 mcg (7) per tablet fluoxetine 2019-10 Yes 20mg Take 20 mg U nivers HCl 2-22 by mouth ity of (FLUOXETINE 10:47: [place]. [place] 55 [facility] Yes 1{tbl} Take 1 Un johnny Estradiol-E 2-22 tablet by ity of Estrad 10:47: mouth [place] (SIMPESSE) 55 daily. Medical 0.15 mg-30 Branch mcg (84)/10 mcg (7) per tablet fluoxetine 2019-10 Yes 20mg Take 20 mg U nivers HCl 2-22 by mouth ity of (FLUOXETINE 10:47: [place]. [place] 55 Medical [place]orgest&E 2019-10 Yes 1{tbl} Take 1 Un [...] (FLUOXETINE 10:47: [place]. [place] [facility] Yes 1{tbl} Take 1 Un johnny Estradiol-E 2-22 tablet by ity of Estrad 10:47: mouth [place] (SIMPESSE) 55 daily. Medical 0.15 mg-30 Branch mcg (84)/10 mcg (7) per tablet fluoxetine 2019-10 Yes 20mg Take 20 mg U nivers HCl 2-22 by mouth ity of (FLUOXETINE 10:47: [place] 55 [facility] fluoxetine 2019-10 Yes 20mg Take 20 mg U nivers HCl 2-22 by mouth ity of (FLUOXETINE 10:47: [place]. [place] 55 [facility] fluoxetine 2019-10 Yes 20mg Take 20 mg U nivers HCl 2-22 by mouth ity of (FLUOXETINE 10:47: [place] [facility] Yes 1{tbl} Take 1 Un [place] Estradiol-E 2-22 tablet by ity of Estrad 10:47: mouth [place] (SIMPESSE) 55 daily. Medical 0.15 mg-30 Branch mcg (84)/10 mcg (7) per tablet fluoxetine 2019-10 Yes 20mg Take 20 mg U nivers HCl 2-22 by mouth ity of (FLUOXETINE 10:47: [place] [facility] Yes 1{tbl} Take 1 Un [place] Estradiol-E 2-22 tablet by ity of Estrad 10:47: mouth [place] (SIMPESSE) 55 daily. Medical 0.15 mg-30 Branch mcg (84)/10 mcg (7) per tablet fluoxetine Yes Take by Uni vers HCl 9-02 mouth. ity of (FLUOXETINE 15:42: [place] ORAL) 14 [facility] fluoxetine Yes Take by Uni vers HCl 9-02 mouth. ity of (FLUOXETINE 15:42: [place] ORAL) 14 Medical Branch fluoxetine 2020-0 Yes Take by [facility] vers HCl 9-02 mouth. ity of (FLUOXETINE 15:42: [place] ORAL) 14 Medical Branch fluoxetine 2020-0 Yes Take by [facility] vers HCl 9-02 mouth. ity of (FLUOXETINE 15:42: [place] ORAL) 14 Medical Branch fluoxetine 2020-0 Yes Take by [facility] vers HCl 9-02 mouth. ity of (FLUOXETINE 15:42: [place] ORAL) 14 Medical Branch fluoxetine 2020-0 Yes Take by [facility] vers HCl 9-02 mouth. ity of (FLUOXETINE 15:42: [place] ORAL) 14 Medical Branch fluoxetine 2020-0 Yes Take by [facility] vers HCl 9-02 mouth. ity of (FLUOXETINE 15:42: [place] ORAL) 14 Medical Branch busPIRone 5 2020-0 Yes [id number] 5mg Take 1 [facility] mg tablet 6-18 tablet by ity o f 00:00: mouth (two) Medical times Branch daily. busPIRone 5 2020-0 Yes [id number] 5mg Take 1 [facility] mg tablet 6-18 tablet by ity o f 00:00: mouth (two) Medical times Branch daily. busPIRone 5 2020-0 Yes [id number] 5mg Take 1 [facility] mg tablet 6-18 tablet by ity o f 00:00: mouth (two) Medical times Branch daily. busPIRone 5 2020-0 Yes [id number] 5mg Take 1 [facility] mg tablet 6-18 tablet by ity o f 00:00: mouth (two) Medical times Branch daily. busPIRone 5 2020-0 Yes [id number] 5mg Take 1 [facility] mg tablet 6-18 tablet by ity o f 00:00: mouth (two) Medical times Branch daily. busPIRone 5 2020-0 Yes [id number] 5mg Take 1 [facility] mg tablet 6-18 tablet by ity o f 00:00: mouth (two) Medical times Branch daily. busPIRone 5 2020-0 Yes [id number] 5mg Take 1 [facility] mg tablet 6-18 tablet by ity o f 00:00: mouth (two) Medical times Branch daily. busPIRone 5 2020-0 Yes [id number] 5mg Take 1 [facility] mg tablet 6-18 tablet by ity o f 00:00: mouth (two) Medical times Branch daily. busPIRone 5 2020-0 Yes [id number] 5mg Take 1 [facility] mg tablet 6-18 tablet by ity o f 00:00: mouth (two) Medical times Branch daily. busPIRone 5 2020-0 Yes [id number] 5mg Take 1 [facility] mg tablet 6-18 tablet by ity o f 00:00: mouth (two) Medical times Branch daily. busPIRone 5 2020-0 Yes [id number] 5mg Take 1 [facility] mg tablet 6-18 tablet by ity o f 00:00: mouth (two) Medical times Branch daily. busPIRone 5 2020-0 Yes [id number] 5mg Take 1 [facility] mg tablet 6-18 tablet by ity o f 00:00: mouth (two) Medical times Branch daily. busPIRone 5 2020-0 Yes [id number] 5mg Take 1 [facility] mg tablet 6-18 tablet by ity o f 00:00: mouth (two) Medical times Branch daily. busPIRone 5 2020-0 Yes [id number] 5mg Take 1 [facility] mg tablet 6-18 tablet by ity o f 00:00: mouth (two) Medical times Branch daily. busPIRone 5 2020-0 Yes [id number] 5mg Take 1 [facility] mg tablet 6-18 tablet by ity o f 00:00: mouth (two) Medical times Branch daily. busPIRone 5 2020-0 Yes [id number] 5mg Take 1 [facility] mg tablet 6-18 tablet by ity o f 00:00: mouth (two) Medical times Branch daily. busPIRone 5 2020-0 Yes [id number] 5mg Take 1 [facility] mg tablet 6-18 tablet by ity o f 00:00: mouth (two) Medical times Branch daily. busPIRone 5 2020-0 Yes [id number] 5mg Take 1 [facility] mg tablet 6-18 tablet by ity o f 00:00: mouth (two) Medical times Branch daily. busPIRone 5 2020-0 Yes [id number] 5mg Take 1 [facility] mg tablet 6-18 tablet by ity o f 00:00: mouth (two) Medical times Branch daily. busPIRone 5 2020-0 Yes [id number] 5mg Take 1 [facility] mg tablet 6-18 tablet by ity o f 00:00: mouth (two) Medical times Branch daily. busPIRone 5 2020-0 Yes [id number] 5mg Take 1 [facility] mg tablet 6-18 tablet by ity o f 00:00: mouth (two) Medical times Branch daily. busPIRone 5 2020-0 Yes [id number] 5mg Take 1 [facility] mg tablet 6-18 tablet by ity o f 00:00: mouth (two) Medical times Branch daily. busPIRone 5 2020-0 Yes [id number] 5mg Take 1 [facility] mg tablet 6-18 tablet by ity o f 00:00: mouth (two) Medical times Branch daily. busPIRone 5 2020-0 Yes [id number] 5mg Take 1 [facility] mg tablet 6-18 tablet by ity o f 00:00: mouth (two) Medical times Branch daily. busPIRone 5 2020-0 Yes [id number] 5mg Take 1 [facility] mg tablet 6-18 tablet by ity o f 00:00: mouth (two) Medical times Branch daily. busPIRone 5 2020-0 Yes [id number] 5mg Take 1 [facility] mg tablet 6-18 tablet by ity o f 00:00: mouth (two) Medical times Branch daily. busPIRone 5 2020-0 Yes [id number] 5mg Take 1 [facility] mg tablet 6-18 tablet by ity o f 00:00: mouth (two) Medical times Branch daily. busPIRone 5 2020-0 Yes [id number] 5mg Take 1 [facility] mg tablet 6-18 tablet by ity o f 00:00: mouth (two) Medical times Branch daily. busPIRone 5 2020-0 Yes [id number] 5mg Take 1 [facility] mg tablet 6-18 tablet by ity o f 00:00: mouth (two) Medical times Branch daily. busPIRone 5 2020-0 Yes [id number] 5mg Take 1 [facility] mg tablet 6-18 tablet by ity o f 00:00: mouth (two) Medical times Branch daily. busPIRone 5 2020-0 Yes [id number] 5mg Take 1 [facility] mg tablet 6-18 tablet by ity o f 00:00: mouth (two) Medical times Branch daily. busPIRone 5 2020-0 Yes [id number] 5mg Take 1 [facility] mg tablet 6-18 tablet by ity o f 00:00: mouth (two) Medical times Branch daily. busPIRone 5 2020-0 Yes [id number] 5mg Take 1 [facility] mg tablet 6-18 tablet by ity o f 00:00: mouth (two) Medical times Branch daily. busPIRone 5 2020-0 Yes [id number] 5mg Take 1 [facility] mg tablet 6-18 tablet by ity o f 00:00: mouth (two) Medical times Branch daily. busPIRone 5 2020-0 Yes [id number] 5mg Take 1 [facility] mg tablet 6-18 tablet by ity o f 00:00: mouth (two) Medical times Branch daily. busPIRone 5 2020-0 Yes [id number] 5mg Take 1 [facility] mg tablet 6-18 tablet by ity o f 00:00: mouth (two) Medical times Branch daily. busPIRone 5 2020-0 Yes [id number] 5mg Take 1 [facility] mg tablet 6-18 tablet by ity o f 00:00: mouth (two) Medical times Branch daily. busPIRone 5 2020-0 Yes [id number] 5mg Take 1 [facility] mg tablet 6-18 tablet by ity o f 00:00: mouth (two) Medical times Branch daily. NUVARING 2020-0 Yes [id number] 1{each} Insert 1 [facility] 0.12-0.015 5-22 Each into ity of mg/24 hr 00:00: vagina [place] vaginal 00 once every Medica l insert month. Branch Insert vaginally and leave in place for 3 consecutiv e weeks, then remove for 1 week. NUVARING 2020-0 Yes [id number] 1{each} Insert 1 [facility] 0.12-0.015 5-22 Each into ity of mg/24 hr 00:00: vagina [place] vaginal 00 once every Medica l insert month. Branch Insert vaginally and leave in place for 3 consecutiv e weeks, then remove for 1 week. NUVARING 2020-0 Yes [id number] 1{each} Insert 1 [facility] 0.12-0.015 5-22 Each into ity of mg/24 hr 00:00: vagina [place] vaginal 00 once every Medica l insert month. Branch Insert vaginally and leave in place for 3 consecutiv e weeks, then remove for 1 week. NUVARING 2020-0 Yes [id number] 1{each} Insert 1 [facility] 0.12-0.015 5-22 Each into ity of mg/24 hr 00:00: vagina [place] vaginal 00 once every Medica l insert month. Branch Insert vaginally and leave in place for 3 consecutiv e weeks, then remove for 1 week. NUVARING 2020-0 Yes [id number] 1{each} Insert 1 [facility] 0.12-0.015 5-22 Each into ity of mg/24 hr 00:00: vagina [place] vaginal 00 once every Medica l insert month. Branch Insert vaginally and leave in place for 3 consecutiv e weeks, then remove for 1 week. NUVARING 2020-0 Yes [id number] 1{each} Insert 1 [facility] 0.12-0.015 5-22 Each into ity of mg/24 hr 00:00: vagina [place] vaginal 00 once every Medica l insert month. Branch Insert vaginally and leave in place for 3 consecutiv e weeks, then remove for 1 week. NUVARING 2020-0 Yes [id number] 1{each} Insert 1 [facility] 0.12-0.015 5-22 Each into ity of mg/24 hr 00:00: vagina [place] vaginal 00 once every Medica l insert month. Branch Insert vaginally and leave in place for 3 consecutiv e weeks, then remove for 1 week. NUVARING 2020-0 Yes [id number] 1{each} Insert 1 [facility] 0.12-0.015 5-22 Each into ity of mg/24 hr 00:00: vagina [place] vaginal 00 once every Medica l insert month. Branch Insert vaginally and leave in place for 3 consecutiv e weeks, then remove for 1 week. NUVARING 2020-0 Yes [id number] 1{each} Insert 1 [facility] 0.12-0.015 5-22 Each into ity of mg/24 hr 00:00: vagina [place] vaginal 00 once every Medica l insert month. Branch Insert vaginally and leave in place for 3 consecutiv e weeks, then remove for 1 week. NUVARING 2019-0 Yes [id number] 1{each} Insert 1 [facility] 0.12-0.015 5-22 Each into ity of mg/24 hr 00:00: vagina [place] vaginal 00 once every Medica l insert month. Branch Insert vaginally and leave in place for 3 consecutiv e weeks, then remove for 1 week. NUVARING 0 Yes [id number] 1{each} Insert 1 [facility] 0.12-0.015 5-22 Each into ity of mg/24 hr 00:00: vagina [place] vaginal 00 once every Medica l insert month. Branch Insert vaginally and leave in place for 3 consecutiv e weeks, then remove for 1 week. NUVARING 2019- No [id number] 1{each} Insert 1 [facility] 0.12-0.015 5-22 12-22 Each into ity of mg/24 hr 00:00: 00:00 vagina [place] vaginal 00 :00 once every Medica l insert month. Branch Insert vaginally and leave in place for 3 consecutiv e weeks, then remove for 1 week. NUVARING 2020- No [id number] 1{each} Insert 1 [facility] 0.12-0.015 5-22 12-22 Each into ity of mg/24 hr 00:00: 00:00 vagina [place] vaginal 00 :00 once every Medica l insert month. Branch Insert vaginally and leave in place for 3 consecutiv e weeks, then remove for 1 week. docusate 2020-0 Yes [id number] 240mg Take 1 [facility] calcium 240 4-24 capsule by it y of mg capsule 00:00: mouth once [place] 00 daily as Medical needed for Branch Constipati on. ferrous 2020-0 Yes [id number] 325mg Take 1 [facility] vers sulfate 325 4-24 tablet by ity of mg (65 mg 00:00: mouth 2 [place] iron) 00 (two) Medical tablet times Branch daily. ibuprofen 2019-0 Yes [id number] 600mg Take 1 [facility] 600 mg 4-24 tablet by ity of tablet 00:00: mouth [place] 00 every 6 Medical (six) Branch hours as needed (Pain). Take with food or milk. 2020-0 Yes [id number] 1{tbl} Take 1 [facility] vitamin 4-24 tablet by ity of w/FA tablet 00:00: mouth [place] 00 daily. Medical Branch docusate 2020-0 Yes [id number] 240mg Take 1 [facility] calcium 240 4-24 capsule by it y of mg capsule 00:00: mouth once [place] 00 daily as Medical needed for Branch Constipati on. ferrous 2020-0 Yes [id number] 325mg Take 1 [facility] vers sulfate 325 4-24 tablet by ity of mg (65 mg 00:00: mouth 2 [place] iron) 00 (two) Medical tablet times Branch daily. ibuprofen 2020-0 Yes [id number] 600mg Take 1 [facility] 600 mg 4-24 tablet by ity of tablet 00:00: mouth [place] 00 every 6 Medical (six) Branch hours as needed (Pain). Take with food or milk. 2020-0 Yes [id number] 1{tbl} Take 1 [facility] vitamin 4-24 tablet by ity of w/FA tablet 00:00: mouth [place] 00 daily. Medical Branch docusate 2020-0 Yes [id number] 240mg Take 1 [facility] calcium 240 4-24 capsule by it y of mg capsule 00:00: mouth once [place] 00 daily as Medical needed for Branch Constipati on. ferrous 2020-0 Yes [id number] 325mg Take 1 [facility] vers sulfate 325 4-24 tablet by ity of mg (65 mg 00:00: mouth 2 [place] iron) 00 (two) Medical tablet times Branch daily. ibuprofen 2020-0 Yes [id number] 600mg Take 1 [facility] 600 mg 4-24 tablet by ity of tablet 00:00: mouth [place] 00 every 6 Medical (six) Branch hours as needed (Pain). Take with food or milk. 2020-0 Yes [id number] 1{tbl} Take 1 [facility] vitamin 4-24 tablet by ity of w/FA tablet 00:00: mouth [place] 00 daily. Medical Branch docusate 2020-0 Yes [id number] 240mg Take 1 [facility] calcium 240 4-24 capsule by it y of mg capsule 00:00: mouth once [place] 00 daily as Medical needed for Branch Constipati on. ferrous 2020-0 Yes [id number] 325mg Take 1 [facility] vers sulfate 325 4-24 tablet by ity of mg (65 mg 00:00: mouth 2 [place] iron) 00 (two) Medical tablet times Branch daily. ibuprofen 2020-0 Yes [id number] 600mg Take 1 [facility] 600 mg 4-24 tablet by ity of tablet 00:00: mouth [place] 00 every 6 Medical (six) Branch hours as needed (Pain). Take with food or milk. 2020-0 Yes [id number] 1{tbl} Take 1 [facility] vitamin 4-24 tablet by ity of w/FA tablet 00:00: mouth [place] 00 daily. Medical Branch docusate 2020-0 Yes [id number] 240mg Take 1 [facility] calcium 240 4-24 capsule by it y of mg capsule 00:00: mouth once [place] 00 daily as Medical needed for Branch Constipati on. ferrous 2020-0 Yes [id number] 325mg Take 1 [facility] vers sulfate 325 4-24 tablet by ity of mg (65 mg 00:00: mouth 2 [place] iron) 00 (two) Medical tablet times Branch daily. ibuprofen 2020-0 Yes [id number] 600mg Take 1 [facility] 600 mg 4-24 tablet by ity of tablet 00:00: mouth [place] 00 every 6 Medical (six) Branch hours as needed (Pain). Take with food or milk. 2020-0 Yes [id number] 1{tbl} Take 1 [facility] vitamin 4-24 tablet by ity of w/FA tablet 00:00: mouth [place] 00 daily. Medical Branch docusate 2020-0 Yes [id number] 240mg Take 1 [facility] calcium 240 4-24 capsule by it y of mg capsule 00:00: mouth once [place] 00 daily as Medical needed for Branch Constipati on. ferrous 2020-0 Yes [id number] 325mg Take 1 [facility] vers sulfate 325 4-24 tablet by ity of mg (65 mg 00:00: mouth 2 [place] iron) 00 (two) Medical tablet times Branch daily. ibuprofen 2020-0 Yes [id number] 600mg Take 1 [facility] 600 mg 4-24 tablet by ity of tablet 00:00: mouth [place] 00 every 6 Medical (six) Branch hours as needed (Pain). Take with food or milk. 2020-0 Yes [id number] 1{tbl} Take 1 [facility] vitamin 4-24 tablet by ity of w/FA tablet 00:00: mouth [place] 00 daily. Medical Branch docusate 2020-0 Yes [id number] 240mg Take 1 [facility] calcium 240 4-24 capsule by it y of mg capsule 00:00: mouth once [place] 00 daily as Medical needed for Branch Constipati on. ferrous 2020-0 Yes [id number] 325mg Take 1 [facility] vers sulfate 325 4-24 tablet by ity of mg (65 mg 00:00: mouth 2 [place] iron) 00 (two) Medical tablet times Branch daily. ibuprofen 2020-0 Yes [id number] 600mg Take 1 [facility] 600 mg 4-24 tablet by ity of tablet 00:00: mouth [place] 00 every 6 Medical (six) Branch hours as needed (Pain). Take with food or milk. 2020-0 Yes [id number] 1{tbl} Take 1 [facility] vitamin 4-24 tablet by ity of w/FA tablet 00:00: mouth [place] 00 daily. Medical Branch docusate 2020-0 Yes [id number] 240mg Take 1 [facility] calcium 240 4-24 capsule by it y of mg capsule 00:00: mouth once [place] 00 daily as Medical needed for Branch Constipati on. ferrous 2020-0 Yes [id number] 325mg Take 1 [facility] vers sulfate 325 4-24 tablet by ity of mg (65 mg 00:00: mouth 2 [place] iron) 00 (two) Medical tablet times Branch daily. ibuprofen 2020-0 Yes [id number] 600mg Take 1 [facility] 600 mg 4-24 tablet by ity of tablet 00:00: mouth [place] 00 every 6 Medical (six) Branch hours as needed (Pain). Take with food or milk. 2020-0 Yes [id number] 1{tbl} Take 1 [facility] vitamin 4-24 tablet by ity of w/FA tablet 00:00: mouth [place] 00 daily. Medical Branch docusate 2020-0 Yes [id number] 240mg Take 1 [facility] calcium 240 4-24 capsule by it y of mg capsule 00:00: mouth once [place] 00 daily as Medical needed for Branch Constipati on. ferrous 2020-0 Yes [id number] 325mg Take 1 [facility] vers sulfate 325 4-24 tablet by ity of mg (65 mg 00:00: mouth 2 [place] iron) 00 (two) Medical tablet times Branch daily. ibuprofen 2020-0 Yes [id number] 600mg Take 1 [facility] 600 mg 4-24 tablet by ity of tablet 00:00: mouth [place] 00 every 6 Medical (six) Branch hours as needed (Pain). Take with food or milk. 2020-0 Yes [id number] 1{tbl} Take 1 [facility] vitamin 4-24 tablet by ity of w/FA tablet 00:00: mouth [place] 00 daily. Medical Branch docusate 2020-0 Yes [id number] 240mg Take 1 [facility] calcium 240 4-24 capsule by it y of mg capsule 00:00: mouth once [place] 00 daily as Medical needed for Branch Constipati on. ferrous 2020-0 Yes [id number] 325mg Take 1 [facility] vers sulfate 325 4-24 tablet by ity of mg (65 mg 00:00: mouth 2 [place] iron) 00 (two) Medical tablet times Branch daily. ibuprofen 2020-0 Yes [id number] 600mg Take 1 [facility] 600 mg 4-24 tablet by ity of tablet 00:00: mouth [place] 00 every 6 Medical (six) Branch hours as needed (Pain). Take with food or milk. 2020-0 Yes [id number] 1{tbl} Take 1 [facility] vitamin 4-24 tablet by ity of w/FA tablet 00:00: mouth [place] 00 daily. Medical Branch docusate 2020-0 Yes [id number] 240mg Take 1 [facility] calcium 240 4-24 capsule by it y of mg capsule 00:00: mouth once [place] 00 daily as Medical needed for Branch Constipati on. ferrous 2020-0 Yes [id number] 325mg Take 1 [facility] vers sulfate 325 4-24 tablet by ity of mg (65 mg 00:00: mouth 2 [place] iron) 00 (two) Medical tablet times Branch daily. ibuprofen 2020-0 Yes [id number] 600mg Take 1 [facility] 600 mg 4-24 tablet by ity of tablet 00:00: mouth [place] 00 every 6 Medical (six) Branch hours as needed (Pain). Take with food or milk. 2020-0 Yes [id number] 1{tbl} Take 1 [facility] vitamin 4-24 tablet by ity of w/FA tablet 00:00: mouth [place] 00 daily. Medical Branch docusate 2020-0 Yes [id number] 240mg Take 1 [facility] calcium 240 4-24 capsule by it y of mg capsule 00:00: mouth once [place] 00 daily as Medical needed for Branch Constipati on. ferrous 2020-0 Yes [id number] 325mg Take 1 [facility] vers sulfate 325 4-24 tablet by ity of mg (65 mg 00:00: mouth 2 [place] iron) 00 (two) Medical tablet times Branch daily. ibuprofen 2020-0 Yes [id number] 600mg Take 1 [facility] 600 mg 4-24 tablet by ity of tablet 00:00: mouth [place] 00 every 6 Medical (six) Branch hours as needed (Pain). Take with food or milk. 2020-0 Yes [id number] 1{tbl} Take 1 [facility] vitamin 4-24 tablet by ity of w/FA tablet 00:00: mouth [place] 00 daily. Medical Branch docusate 2020-0 Yes [id number] 240mg Take 1 [facility] calcium 240 4-24 capsule by it y of mg capsule 00:00: mouth once [place] 00 daily as Medical needed for Branch Constipati on. ferrous 2020-0 Yes [id number] 325mg Take 1 [facility] vers sulfate 325 4-24 tablet by ity of mg (65 mg 00:00: mouth 2 [place] iron) 00 (two) Medical tablet times Branch daily. ibuprofen 2020-0 Yes [id number] 600mg Take 1 [facility] 600 mg 4-24 tablet by ity of tablet 00:00: mouth [place] 00 every 6 Medical (six) Branch hours as needed (Pain). Take with food or milk. 2020-0 Yes [id number] 1{tbl} Take 1 [facility] vitamin 4-24 tablet by ity of w/FA tablet 00:00: mouth [place] 00 daily. Medical Branch docusate 2020-0 Yes [id number] 240mg Take 1 [facility] calcium 240 4-24 capsule by it y of mg capsule 00:00: mouth once [place] 00 daily as Medical needed for Branch Constipati on. ferrous 2020-0 Yes [id number] 325mg Take 1 [facility] vers sulfate 325 4-24 tablet by ity of mg (65 mg 00:00: mouth 2 [place] iron) 00 (two) Medical tablet times Branch daily. ibuprofen 2020-0 Yes [id number] 600mg Take 1 [facility] 600 mg 4-24 tablet by ity of tablet 00:00: mouth [place] 00 every 6 Medical (six) Branch hours as needed (Pain). Take with food or milk. 2020-0 Yes [id number] 1{tbl} Take 1 [facility] vitamin 4-24 tablet by ity of w/FA tablet 00:00: mouth [place] 00 daily. Medical Branch docusate 2020-0 Yes [id number] 240mg Take 1 [facility] calcium 240 4-24 capsule by it y of mg capsule 00:00: mouth once [place] 00 daily as Medical needed for Branch Constipati on. ferrous 2020-0 Yes [id number] 325mg Take 1 [facility] vers sulfate 325 4-24 tablet by ity of mg (65 mg 00:00: mouth 2 [place] iron) 00 (two) Medical tablet times Branch daily. ibuprofen 2020-0 Yes [id number] 600mg Take 1 [facility] 600 mg 4-24 tablet by ity of tablet 00:00: mouth [place] 00 every 6 Medical (six) Branch hours as needed (Pain). Take with food or milk. 2020-0 Yes [id number] 1{tbl} Take 1 [facility] vitamin 4-24 tablet by ity of w/FA tablet 00:00: mouth [place] 00 daily. Medical Branch docusate 2020-0 Yes [id number] 240mg Take 1 [facility] calcium 240 4-24 capsule by it y of mg capsule 00:00: mouth once [place] 00 daily as Medical needed for Branch Constipati on. ferrous 2020-0 Yes [id number] 325mg Take 1 [facility] vers sulfate 325 4-24 tablet by ity of mg (65 mg 00:00: mouth 2 [place] iron) 00 (two) Medical tablet times Branch daily. ibuprofen 2020-0 Yes [id number] 600mg Take 1 [facility] 600 mg 4-24 tablet by ity of tablet 00:00: mouth [place] 00 every 6 Medical (six) Branch hours as needed (Pain). Take with food or milk. 2020-0 Yes [id number] 1{tbl} Take 1 [facility] vitamin 4-24 tablet by ity of w/FA tablet 00:00: mouth [place] 00 daily. Medical Branch docusate 2020-0 Yes [id number] 240mg Take 1 [facility] calcium 240 4-24 capsule by it y of mg capsule 00:00: mouth once [place] 00 daily as Medical needed for Branch Constipati on. ferrous 2020-0 Yes [id number] 325mg Take 1 [facility] vers sulfate 325 4-24 tablet by ity of mg (65 mg 00:00: mouth 2 [place] iron) 00 (two) Medical tablet times Branch daily. ibuprofen 2020-0 Yes [id number] 600mg Take 1 [facility] 600 mg 4-24 tablet by ity of tablet 00:00: mouth [place] 00 every 6 Medical (six) Branch hours as needed (Pain). Take with food or milk. 2020-0 Yes [id number] 1{tbl} Take 1 [facility] vitamin 4-24 tablet by ity of w/FA tablet 00:00: mouth [place] 00 daily. Medical Branch docusate 2020-0 Yes [id number] 240mg Take 1 [facility] calcium 240 4-24 capsule by it y of mg capsule 00:00: mouth once [place] 00 daily as Medical needed for Branch Constipati on. ferrous 2020-0 Yes [id number] 325mg Take 1 [facility] vers sulfate 325 4-24 tablet by ity of mg (65 mg 00:00: mouth 2 [place] iron) 00 (two) Medical tablet times Branch daily. ibuprofen 2020-0 Yes [id number] 600mg Take 1 [facility] 600 mg 4-24 tablet by ity of tablet 00:00: mouth [place] 00 every 6 Medical (six) Branch hours as needed (Pain). Take with food or milk. 2020-0 Yes [id number] 1{tbl} Take 1 [facility] vitamin 4-24 tablet by ity of w/FA tablet 00:00: mouth [place] 00 daily. Medical Branch docusate 2020-0 Yes [id number] 240mg Take 1 [facility] calcium 240 4-24 capsule by it y of mg capsule 00:00: mouth once [place] 00 daily as Medical needed for Branch Constipati on. ferrous 2020-0 Yes [id number] 325mg Take 1 [facility] vers sulfate 325 4-24 tablet by ity of mg (65 mg 00:00: mouth 2 [place] iron) 00 (two) Medical tablet times Branch daily. ibuprofen 2020-0 Yes [id number] 600mg Take 1 [facility] 600 mg 4-24 tablet by ity of tablet 00:00: mouth [place] 00 every 6 Medical (six) Branch hours as needed (Pain). Take with food or milk. 2020-0 Yes [id number] 1{tbl} Take 1 [facility] vitamin 4-24 tablet by ity of w/FA tablet 00:00: mouth [place] 00 daily. Medical Branch docusate 2020-0 Yes [id number] 240mg Take 1 [facility] calcium 240 4-24 capsule by it y of mg capsule 00:00: mouth once [place] 00 daily as Medical needed for Branch Constipati on. ferrous 2020-0 Yes [id number] 325mg Take 1 [facility] vers sulfate 325 4-24 tablet by ity of mg (65 mg 00:00: mouth 2 [place] iron) 00 (two) Medical tablet times Branch daily. ibuprofen 2020-0 Yes [id number] 600mg Take 1 [facility] 600 mg 4-24 tablet by ity of tablet 00:00: mouth [place] 00 every 6 Medical (six) Branch hours as needed (Pain). Take with food or milk. 2020-0 Yes [id number] 1{tbl} Take 1 [facility] vitamin 4-24 tablet by ity of w/FA tablet 00:00: mouth [place] 00 daily. Medical Branch docusate 2020-0 Yes [id number] 240mg Take 1 [facility] calcium 240 4-24 capsule by it y of mg capsule 00:00: mouth once [place] 00 daily as Medical needed for Branch Constipati on. ferrous 2020-0 Yes [id number] 325mg Take 1 [facility] vers sulfate 325 4-24 tablet by ity of mg (65 mg 00:00: mouth 2 [place] iron) 00 (two) Medical tablet times Branch daily. ibuprofen 2020-0 Yes [id number] 600mg Take 1 [facility] 600 mg 4-24 tablet by ity of tablet 00:00: mouth [place] 00 every 6 Medical (six) Branch hours as needed (Pain). Take with food or milk. 2020-0 Yes [id number] 1{tbl} Take 1 [facility] vitamin 4-24 tablet by ity of w/FA tablet 00:00: mouth [place] 00 daily. Medical Branch docusate 2020-0 Yes [id number] 240mg Take 1 [facility] calcium 240 4-24 capsule by it y of mg capsule 00:00: mouth once [place] 00 daily as Medical needed for Branch Constipati on. ferrous 2020-0 Yes [id number] 325mg Take 1 [facility] vers sulfate 325 4-24 tablet by ity of mg (65 mg 00:00: mouth 2 [place] iron) 00 (two) Medical tablet times Branch daily. ibuprofen 2020-0 Yes [id number] 600mg Take 1 [facility] 600 mg 4-24 tablet by ity of tablet 00:00: mouth [place] 00 every 6 Medical (six) Branch hours as needed (Pain). Take with food or milk. 2020-0 Yes [id number] 1{tbl} Take 1 [facility] vitamin 4-24 tablet by ity of w/FA tablet 00:00: mouth [place] 00 daily. Medical Branch docusate 2020-0 Yes [id number] 240mg Take 1 [facility] calcium 240 4-24 capsule by it y of mg capsule 00:00: mouth once [place] 00 daily as Medical needed for Branch Constipati on. ferrous 2020-0 Yes [id number] 325mg Take 1 [facility] vers sulfate 325 4-24 tablet by ity of mg (65 mg 00:00: mouth 2 [place] iron) 00 (two) Medical tablet times Branch daily. ibuprofen 2020-0 Yes [id number] 600mg Take 1 [facility] 600 mg 4-24 tablet by ity of tablet 00:00: mouth [place] 00 every 6 Medical (six) Branch hours as needed (Pain). Take with food or milk. 2020-0 Yes [id number] 1{tbl} Take 1 [facility] vitamin 4-24 tablet by ity of w/FA tablet 00:00: mouth [place] 00 daily. Medical Branch docusate 2020-0 Yes [id number] 240mg Take 1 [facility] calcium 240 4-24 capsule by it y of mg capsule 00:00: mouth once [place] 00 daily as Medical needed for Branch Constipati on. ferrous 2020-0 Yes [id number] 325mg Take 1 [facility] vers sulfate 325 4-24 tablet by ity of mg (65 mg 00:00: mouth 2 [place] iron) 00 (two) Medical tablet times Branch daily. ibuprofen 2020-0 Yes [id number] 600mg Take 1 [facility] 600 mg 4-24 tablet by ity of tablet 00:00: mouth [place] 00 every 6 Medical (six) Branch hours as needed (Pain). Take with food or milk. 2020-0 Yes [id number] 1{tbl} Take 1 [facility] vitamin 4-24 tablet by ity of w/FA tablet 00:00: mouth [place] 00 daily. Medical Branch docusate 2020-0 Yes [id number] 240mg Take 1 [facility] calcium 240 4-24 capsule by it y of mg capsule 00:00: mouth once [place] 00 daily as Medical needed for Branch Constipati on. ferrous 2020-0 Yes [id number] 325mg Take 1 [facility] vers sulfate 325 4-24 tablet by ity of mg (65 mg 00:00: mouth 2 [place] iron) 00 (two) Medical tablet times Branch daily. ibuprofen 2020-0 Yes [id number] 600mg Take 1 [facility] 600 mg 4-24 tablet by ity of tablet 00:00: mouth [place] 00 every 6 Medical (six) Branch hours as needed (Pain). Take with food or milk. 2020-0 Yes [id number] 1{tbl} Take 1 [facility] vitamin 4-24 tablet by ity of w/FA tablet 00:00: mouth [place] 00 daily. Medical Branch docusate 2020-0 Yes [id number] 240mg Take 1 [facility] calcium 240 4-24 capsule by it y of mg capsule 00:00: mouth once [place] 00 daily as Medical needed for Branch Constipati on. ferrous 2020-0 Yes [id number] 325mg Take 1 [facility] vers sulfate 325 4-24 tablet by ity of mg (65 mg 00:00: mouth 2 [place] iron) 00 (two) Medical tablet times Branch daily. ibuprofen 2020-0 Yes [id number] 600mg Take 1 [facility] 600 mg 4-24 tablet by ity of tablet 00:00: mouth [place] 00 every 6 Medical (six) Branch hours as needed (Pain). Take with food or milk. 2020-0 Yes [id number] 1{tbl} Take 1 [facility] vitamin 4-24 tablet by ity of w/FA tablet 00:00: mouth [place] 00 daily. Medical Branch docusate 2020-0 Yes [id number] 240mg Take 1 [facility] calcium 240 4-24 capsule by it y of mg capsule 00:00: mouth once [place] 00 daily as Medical needed for Branch Constipati on. ferrous 2020-0 Yes [id number] 325mg Take 1 [facility] vers sulfate 325 4-24 tablet by ity of mg (65 mg 00:00: mouth 2 [place] iron) 00 (two) Medical tablet times Branch daily. ibuprofen 2020-0 Yes [id number] 600mg Take 1 [facility] 600 mg 4-24 tablet by ity of tablet 00:00: mouth [place] 00 every 6 Medical (six) Branch hours as needed (Pain). Take with food or milk. 2020-0 Yes [id number] 1{tbl} Take 1 [facility] vitamin 4-24 tablet by ity of w/FA tablet 00:00: mouth [place] 00 daily. Medical Branch docusate 2020-0 Yes [id number] 240mg Take 1 [facility] calcium 240 4-24 capsule by it y of mg capsule 00:00: mouth once [place] 00 daily as Medical needed for Branch Constipati on. ferrous 2020-0 Yes [id number] 325mg Take 1 [facility] vers sulfate 325 4-24 tablet by ity of mg (65 mg 00:00: mouth 2 [place] iron) 00 (two) Medical tablet times Branch daily. ibuprofen 2020-0 Yes [id number] 600mg Take 1 [facility] 600 mg 4-24 tablet by ity of tablet 00:00: mouth [place] 00 every 6 Medical (six) Branch hours as needed (Pain). Take with food or milk. 2020-0 Yes [id number] 1{tbl} Take 1 [facility] vitamin 4-24 tablet by ity of w/FA tablet 00:00: mouth [place] 00 daily. Medical Branch docusate 2020-0 Yes [id number] 240mg Take 1 [facility] calcium 240 4-24 capsule by it y of mg capsule 00:00: mouth once [place] 00 daily as Medical needed for Branch Constipati on. ferrous 2020-0 Yes [id number] 325mg Take 1 [facility] vers sulfate 325 4-24 tablet by ity of mg (65 mg 00:00: mouth 2 [place] iron) 00 (two) Medical tablet times Branch daily. ibuprofen 2020-0 Yes [id number] 600mg Take 1 [facility] 600 mg 4-24 tablet by ity of tablet 00:00: mouth [place] 00 every 6 Medical (six) Branch hours as needed (Pain). Take with food or milk. 2020-0 Yes [id number] 1{tbl} Take 1 [facility] vitamin 4-24 tablet by ity of w/FA tablet 00:00: mouth [place] 00 daily. Medical Branch docusate 2020-0 Yes [id number] 240mg Take 1 [facility] calcium 240 4-24 capsule by it y of mg capsule 00:00: mouth once [place] 00 daily as Medical needed for Branch Constipati on. ferrous 2020-0 Yes [id number] 325mg Take 1 [facility] vers sulfate 325 4-24 tablet by ity of mg (65 mg 00:00: mouth 2 [place] iron) 00 (two) Medical tablet times Branch daily. ibuprofen 2020-0 Yes [id number] 600mg Take 1 [facility] 600 mg 4-24 tablet by ity of tablet 00:00: mouth [place] 00 every 6 Medical (six) Branch hours as needed (Pain). Take with food or milk. 2020-0 Yes [id number] 1{tbl} Take 1 [facility] vitamin 4-24 tablet by ity of w/FA tablet 00:00: mouth [place] 00 daily. Medical Branch docusate 2020-0 Yes [id number] 240mg Take 1 [facility] calcium 240 4-24 capsule by it y of mg capsule 00:00: mouth once [place] 00 daily as Medical needed for Branch Constipati on. ferrous 2020-0 Yes [id number] 325mg Take 1 [facility] vers sulfate 325 4-24 tablet by ity of mg (65 mg 00:00: mouth 2 [place] iron) 00 (two) Medical tablet times Branch daily. ibuprofen 2020-0 Yes [id number] 600mg Take 1 [facility] 600 mg 4-24 tablet by ity of tablet 00:00: mouth [place] 00 every 6 Medical (six) Branch hours as needed (Pain). Take with food or milk. 2020-0 Yes [id number] 1{tbl} Take 1 [facility] vitamin 4-24 tablet by ity of w/FA tablet 00:00: mouth [place] 00 daily. Medical Branch docusate 2020-0 Yes [id number] 240mg Take 1 [facility] calcium 240 4-24 capsule by it y of mg capsule 00:00: mouth once [place] 00 daily as Medical needed for Branch Constipati on. ferrous 2020-0 Yes [id number] 325mg Take 1 [facility] vers sulfate 325 4-24 tablet by ity of mg (65 mg 00:00: mouth 2 [place] iron) 00 (two) Medical tablet times Branch daily. ibuprofen 2020-0 Yes [id number] 600mg Take 1 [facility] 600 mg 4-24 tablet by ity of tablet 00:00: mouth [place] 00 every 6 Medical (six) Branch hours as needed (Pain). Take with food or milk. 2020-0 Yes [id number] 1{tbl} Take 1 [facility] vitamin 4-24 tablet by [facility]y of w/FA tablet 00:00: mouth [place] 00 daily. Medical Branch docusate 2020-0 Yes [id number] 240mg Take 1 [facility] calcium 240 4-24 capsule by it y of mg capsule 00:00: mouth once [place] 00 daily as Medical needed for Branch Constipati on. ferrous 2020-0 Yes [id number] 325mg Take 1 [facility] vers sulfate 325 4-24 tablet by ity of mg (65 mg 00:00: mouth 2 [place] iron) 00 (two) Medical tablet times Branch daily. ibuprofen 2020-0 Yes [id number] 600mg Take 1 [facility] 600 mg 4-24 tablet by ity of tablet 00:00: mouth [place] 00 every 6 Medical (six) Branch hours as needed (Pain). Take with food or milk. 2020-0 Yes [id number] 1{tbl} Take 1 [facility] vitamin 4-24 tablet by ity of w/FA tablet 00:00: mouth [place] 00 daily. Medical Branch docusate 2020-0 Yes [id number] 240mg Take 1 [facility] calcium 240 4-24 capsule by it y of mg capsule 00:00: mouth once [place] 00 daily as Medical needed for Branch Constipati on. ferrous 2020-0 Yes [id number] 325mg Take 1 [facility] vers sulfate 325 4-24 tablet by ity of mg (65 mg 00:00: mouth 2 [place] iron) 00 (two) Medical tablet times Branch daily. ibuprofen 2020-0 Yes [id number] 600mg Take 1 [facility] 600 mg 4-24 tablet by ity of tablet 00:00: mouth [place] 00 every 6 Medical (six) Branch hours as needed (Pain). Take with food or milk. 2020-0 Yes [id number] 1{tbl} Take 1 [facility] vitamin 4-24 tablet by ity of w/FA tablet 00:00: mouth [place] 00 daily. [facility] Branch docusate 2020-0 Yes [id number] 240mg Take 1 Un johnny calcium 240 4-24 capsule by it y of mg capsule 00:00: mouth once [place] 00 daily as Medical needed for Branch Constipati on. ferrous 2020-0 Yes [id number] 325mg Take 1 [facility] vers sulfate 325 4-24 tablet by ity of mg (65 mg 00:00: mouth 2 [place] iron) 00 (two) Medical tablet times Branch daily. ibuprofen 2020-0 Yes [id number] 600mg Take 1 U nivers 600 mg 4-24 tablet by ity of tablet 00:00: mouth [place] 00 every 6 Medical (six) Branch hours as needed (Pain). Take with food or milk. 2020-0 Yes [id number] 1{tbl} Take 1 U nivers vitamin 4-24 tablet by ity of w/FA tablet 00:00: mouth [place] 00 daily. Medical Branch docusate 2020-0 Yes [id number] 240mg Take 1 Un johnny calcium 240 4-24 capsule by it y of mg capsule 00:00: mouth once [place] 00 daily as Medical needed for Branch Constipati on. ferrous 2020-0 Yes [id number] 325mg Take 1 Uni vers sulfate 325 4-24 tablet by ity of mg (65 mg 00:00: mouth 2 [place] iron) 00 (two) Medical tablet times Branch daily. ibuprofen 2020-0 Yes [id number] 600mg Take 1 U nivers 600 mg 4-24 tablet by ity of tablet 00:00: mouth [place] 00 every 6 Medical (six) Branch hours as needed (Pain). Take with food or milk. 2020-0 Yes [id number] 1{tbl} Take 1 U nivers vitamin 4-24 tablet by ity of w/FA tablet 00:00: mouth [place] 00 daily. Medical Branch docusate 2020-0 Yes [id number] 240mg Take 1 Un johnny calcium 240 4-24 capsule by it y of mg capsule 00:00: mouth once [place] 00 daily as Medical needed for Branch Constipati on. ferrous 2020-0 Yes [id number] 325mg Take 1 Uni vers sulfate 325 4-24 tablet by ity of mg (65 mg 00:00: mouth 2 [place] iron) 00 (two) Medical tablet times Branch daily. ibuprofen 2020-0 Yes [id number] 600mg Take 1 U nivers 600 mg 4-24 tablet by ity of tablet 00:00: mouth [place] 00 every 6 Medical (six) Branch hours as needed (Pain). Take with food or milk. 2020-0 Yes [id number] 1{tbl} Take 1 U nivers vitamin 4-24 tablet by ity of w/FA tablet 00:00: mouth [place] 00 daily. Medical Branch docusate 2020-0 Yes [id number] 240mg Take 1 Un johnny calcium 240 4-24 capsule by it y of mg capsule 00:00: mouth once [place] 00 daily as Medical needed for Branch Constipati on. ferrous 2020-0 Yes [id number] 325mg Take 1 Uni vers sulfate 325 4-24 tablet by ity of mg (65 mg 00:00: mouth 2 [place] iron) 00 (two) Medical tablet times Branch daily. ibuprofen 2020-0 Yes [id number] 600mg Take 1 U nivers 600 mg 4-24 tablet by ity of tablet 00:00: mouth [place] 00 every 6 Medical (six) Branch hours as needed (Pain). Take with food or milk. 2020-0 Yes [id number] 1{tbl} Take 1 U nivers vitamin 4-24 tablet by ity of w/FA tablet 00:00: mouth [place] 00 daily. Medical Branch docusate 2020-0 Yes [id number] 240mg Take 1 Un johnny calcium 240 4-24 capsule by it y of mg capsule 00:00: mouth once [place] 00 daily as Medical needed for Branch Constipati on. ferrous 2020-0 Yes [id number] 325mg Take 1 Uni vers sulfate 325 4-24 tablet by ity of mg (65 mg 00:00: mouth 2 [place] iron) 00 (two) Medical tablet times Branch daily. ibuprofen 2020-0 Yes [id number] 600mg Take 1 U nivers 600 mg 4-24 tablet by ity of tablet 00:00: mouth [place] 00 every 6 Medical (six) Branch hours as needed (Pain). Take with food or milk. 2020-0 Yes [id number] 1{tbl} Take 1 U nivers vitamin 4-24 tablet by ity of w/FA tablet 00:00: mouth [place] 00 daily. Medical Branch docusate 2020-0 Yes [id number] 240mg Take 1 Un johnny calcium 240 4-24 capsule by it y of mg capsule 00:00: mouth once [place] 00 daily as Medical needed for Branch Constipati on. ferrous 2020-0 Yes [id number] 325mg Take 1 Uni vers sulfate 325 4-24 tablet by ity of mg (65 mg 00:00: mouth 2 [place] iron) 00 (two) Medical tablet times Branch daily. ibuprofen 2020-0 Yes [id number] 600mg Take 1 U nivers 600 mg 4-24 tablet by ity of tablet 00:00: mouth [place] 00 every 6 Medical (six) Branch hours as needed (Pain). Take with food or milk. 2020-0 Yes [id number] 1{tbl} Take 1 U nivers vitamin 4-24 tablet by ity of w/FA tablet 00:00: mouth [place] 00 daily. Medical Branch docusate 2020-0 Yes [id number] 240mg Take 1 Un johnny calcium 240 4-24 capsule by it y of mg capsule 00:00: mouth once [place] 00 daily as Medical needed for Branch Constipati on. ferrous 2020-0 Yes [id number] 325mg Take 1 Uni vers sulfate 325 4-24 tablet by ity of mg (65 mg 00:00: mouth 2 [place] iron) 00 (two) Medical tablet times Branch daily. ibuprofen 2020-0 Yes [id number] 600mg Take 1 U nivers 600 mg 4-24 tablet by ity of tablet 00:00: mouth [place] 00 every 6 Medical (six) Branch hours as needed (Pain). Take with food or milk. 2020-0 Yes [id number] 1{tbl} Take 1 U nivers vitamin 4-24 tablet by ity of w/FA tablet 00:00: mouth [place] 00 daily. Medical Branch rho(D) 2019-0 Yes 300ug 300 mcg, Univer s immune 4- Intramuscu ity of globulin 06:08: lar, ONCE, [place] (RHOGAM) 54 For 1 Medical syringe 300 dose, Branch mcg Conditiona l, Routine HYDROcodone 2019-0 Yes 1{tbl} 1 tablet, Univers -acetaminop 4-23 Oral, ity of hen (NORCO 06:08: Q6HPRN, [place] 5) 5-325 mg 50 Starting Medi johnny tablet 1 [facility] tablet 01/31/20 at 0108, Until Discontinu ed, Routine, Pain (scale 7-10) ibuprofen 2019-0 Yes 600mg 600 mg, Univ ers (IBU) 4-23 Oral, ity of tablet 600 06:08: Q6HPRN, [place] mg 50 Starting Medical [place] [facility] 01/31/20 at 0108, Until Discontinu ed, Routine, Pain (scale 4-6) diphenhydrA 2019-0 Yes 25mg 25 mg, Univ ers MINE 4-23 Oral, ity of (BENADRYL) 06:08: Q6HPRN, [place] tablet 25 50 Starting Medica l mg [place] Branch 01/31/20 at 0108, Until Discontinu ed, Routine, Sleep, Itching ondansetron 2019-0 Yes 4mg 4 mg, Slow Univers (ZOFRAN -23 IV Push, ity of (PF)) 06:08: Q8HPRN, [...] Until Discontinu ed, Routine, Constipati on acetaminoph 2020-0 Yes 650mg 650 mg, Un johnny en 01-30 Oral, ity of (TYLENOL) 06:08: Q6HPRN, [place] tablet 650 49 Starting Medic al mg [place] [facility] 01/31/20 at 0108, Until Discontinu ed, Routine, Pain (scale 1-3) benzocaine- 2020-0 Yes Topical, Un johnny menthol 01-30 PRN, [...] [place] 01/31/20 at 0108, Routine D5W-LR IV 2019-0 2020- No 1000mL at 125 Uni vers infusion 01-29 mL/hr, IV ity o f 1,000 mL 18:15: 06:08 Infusion, [place] 00 :55 CONTINUOUS Medical , Starting Branch 01/30/20 at 1315, Until [place] 01/31/20 at 0108, Routine proMETHazin 2019- 2020- No 25mg 25 mg, IV Univers e 01-29 Piggyback, ity of (PHENERGAN) 18:00: 06:08 Q6HPRN, [place] 25 mg in 39 :55 Starting Medical NaCl 0.9% Wed Branch (NS) 50 mL 01/30/20 at piggyback 1300, Until [place] 01/31/20 at 0108, 50 mL FENTanyl PF 2020- No 100ug 100 mcg, Univers (SUBLIMAZE 01-29 Slow IV ity o f (PF)) 18:00: 06:08 Push, [place] injection 20 :55 Q1HPRN, Medical 100 mcg Starting Branch Tue01/30/20 at 1300, Until [place] 01/31/20 at 0108, Routine, contractio n pain without an epidural and SVE < 8 cm and Cat I strip busPIRone 5 2020-0 Yes [id number] 5mg Take 1 [facility] mg tablet 4-21 tablet by ity o f 00:00: mouth 2 [place] [id number] (two) Medical times Branch daily. busPIRone 5 2020-0 Yes [id number] 5mg Take 1 [facility] mg tablet 4-21 tablet by ity o f 00:00: mouth 2 [place] (two) Medical times Branch daily. busPIRone 5 2020-0 Yes [id number] 5mg Take 1 [facility] mg tablet 4-21 tablet by ity o f 00:00: mouth 2 [place] 00 (two) Medical times Branch daily. busPIRone 5 2020-0 2020- No [id number] 5mg Take 1 [facility] mg tablet 01-28-24 tablet by ity of 00:00: 00:00 mouth 2 [place] 00 :00 (two) Medical times Branch daily. busPIRone 5 2020-0 2020- No [id number] 5mg Take 1 [facility] mg tablet 4-21 04-21 tablet by ity of 00:00: 00:00 mouth 2 00 :00 (two) Medical times Branch daily. busPIRone 5 2020-0 Yes [id number] 5mg Take 1 [facility] mg tablet 2-18 tablet by ity o f 00:00: mouth (two) Medical times Branch daily. busPIRone 5 2020-0 Yes [id number] 5mg Take 1 [facility] mg tablet 2-18 tablet by ity o f 00:00: mouth 2 [place] (two) Medical times Branch daily. busPIRone 5 2020-0 Yes [id number] 5mg Take 1 Univers mg tablet 2-18 tablet by ity o f 00:00: mouth (two) Medical times Branch daily. busPIRone 5 2020-0 Yes [id number] 5mg Take 1 Univers mg tablet 2-18 tablet by ity o f 00:00: mouth [place] (two) Medical times Branch daily. busPIRone 5 2020-0 Yes [id number] 5mg Take 1 Univers mg tablet 2-18 tablet by ity o f 00:00: mouth (two) Medical times Branch daily. busPIRone 5 2020-0 Yes [id number] 5mg Take 1 [facility] mg tablet 2-18 tablet by ity o f 00:00: mouth [place] (two) Medical times Branch daily. busPIRone 5 2020-0 Yes [id number] 5mg Take 1 Univers mg tablet 2-18 tablet by ity o f 00:00: mouth (two) Medical times Branch daily. busPIRone 5 2020-0 Yes [id number] 5mg Take 1 Univers mg tablet 2-18 tablet by ity o f 00:00: mouth (two) Medical times Branch daily. busPIRone 5 2020-0 Yes [id number] 5mg Take 1 Univers mg tablet 2-18 tablet by ity o f 00:00: mouth 2 (two) Medical times Branch daily. busPIRone 5 2020-0 Yes [id number] 5mg Take 1 Univers mg tablet 2-18 tablet by ity o f 00:00: mouth 2 00 (two) Medical times Branch daily. busPIRone 5 2020-0 Yes [id number] 5mg Take 1 Univers mg tablet 2-18 tablet by ity o f 00:00: mouth 2 00 (two) Medical times Branch daily. busPIRone 5 2020-0 Yes [id number] 5mg Take 1 Univers mg tablet 2-18 tablet by ity o f 00:00: mouth 2 00 (two) Medical times Branch daily. busPIRone 5 2020-0 Yes [id number] 5mg Take 1 Univers mg tablet 2-18 tablet by ity o f 00:00: mouth 2 00 (two) Medical times Branch daily. busPIRone 5 2020-0 Yes [id number] 5mg Take 1 Univers mg tablet 2-18 tablet by ity o f 00:00: mouth 2 00 (two) Medical times Branch daily. busPIRone 5 2020-0 Yes [id number] 5mg Take 1 Univers mg tablet 2-18 tablet by ity o f 00:00: mouth (two) Medical times Branch daily. busPIRone 5 2020-0 Yes [id number] 5mg Take 1 Univers mg tablet 2-18 tablet by ity o f 00:00: mouth 2 00 (two) Medical times Branch daily. busPIRone 5 2020-0 2020- No [id number] 5mg Take 1 Univers mg tablet 2-18 04-21 tablet by ity of 00:00: 00:00 mouth 2 [place] 00 :00 (two) Medical times Branch daily. busPIRone 5 2020-0 2020- No [id number] 5mg Take 1 Univers mg tablet 2-18 04-21 tablet by ity of 00:00: 00:00 mouth 2 [place] 00 :00 (two) Medical times Branch daily. FLUoxetine 2020-0 Yes [id number] 10mg Take 1 Univers 10 mg 2-04 capsule by ity of capsule 00:00: mouth [place] 00 daily. Medical Branch FLUoxetine 2020-0 Yes [id number] 10mg Take 1 Univers 10 mg 2-04 capsule by ity of capsule 00:00: mouth [place] 00 daily. Medical Branch FLUoxetine 2020-0 Yes [id number] 10mg Take 1 Univers 10 mg 2-04 capsule by ity of capsule 00:00: mouth [place] 00 daily. Medical Branch FLUoxetine 2020-0 Yes [id number] 10mg Take 1 Univers 10 mg 2-04 capsule by ity of capsule 00:00: mouth [place] 00 daily. Medical Branch FLUoxetine 2020-0 Yes [id number] 10mg Take 1 Univers 10 mg 2-04 capsule by ity of capsule 00:00: mouth [place] 00 daily. Medical Branch FLUoxetine 2020-0 Yes [id number] 10mg Take 1 [facility] 10 mg 2-04 capsule by ity of capsule 00:00: mouth [place] 00 daily. Medical Branch FLUoxetine 2020-0 Yes [id number] 10mg Take 1 [facility] 10 mg 2-04 capsule by ity of capsule 00:00: mouth [place] 00 daily. Medical Branch FLUoxetine 2020-0 Yes [id number] 10mg Take 1 [facility] 10 mg 2-04 capsule by ity of capsule 00:00: mouth [place] 00 daily. Medical Branch FLUoxetine 2020-0 Yes [id number] 10mg Take 1 [facility] 10 mg 2-04 capsule by ity of capsule 00:00: mouth [place] 00 daily. Medical Branch FLUoxetine 2020-0 Yes [id number] 10mg Take 1 [facility] 10 mg 2-04 capsule by ity of capsule 00:00: mouth [place] 00 daily. Medical Branch FLUoxetine 2020-0 Yes [id number] 10mg Take 1 Univers 10 mg 2-04 capsule by ity of capsule 00:00: mouth [place] 00 daily. Medical Branch FLUoxetine 2020-0 Yes [id number] 10mg Take 1 [facility] 10 mg 2-04 capsule by ity of capsule 00:00: mouth [place] 00 daily. Medical Branch FLUoxetine 2020-0 Yes [id number] 10mg Take 1 [facility] 10 mg 2-04 capsule by ity of capsule 00:00: mouth [place] 00 daily. Medical Branch FLUoxetine 2020-0 Yes [id number] 10mg Take 1 [facility] 10 mg 2-04 capsule by ity of capsule 00:00: mouth [place] 00 daily. Medical Branch FLUoxetine 2020-0 Yes [id number] 10mg Take 1 [facility] 10 mg 2-04 capsule by ity of capsule 00:00: mouth [place] 00 daily. Medical Branch FLUoxetine 2020-0 Yes [id number] 10mg Take 1 [facility] 10 mg 2-04 capsule by ity of capsule 00:00: mouth [place] 00 daily. Medical Branch FLUoxetine 2020-0 Yes [id number] 10mg Take 1 Univers 10 mg 2-04 capsule by ity of capsule 00:00: mouth [place] 00 daily. [facility] Branch FLUoxetine 2020-0 Yes [id number] 10mg Take 1 Univers 10 mg 2-04 capsule by ity of capsule 00:00: mouth [place] 00 daily. [facility] Branch FLUoxetine 2020-0 Yes [id number] 10mg Take 1 Univers 10 mg 2-04 capsule by ity of capsule 00:00: mouth [place] 00 daily. [facility] FLUoxetine 2020-0 Yes [id number] 10mg Take 1 Univers 10 mg 2-04 capsule by ity of capsule 00:00: mouth [place] 00 daily. [facility] Branch FLUoxetine 2020-0 Yes [id number] 10mg Take 1 Univers 10 mg 2-04 capsule by ity of capsule 00:00: mouth [place] 00 daily. [facility] FLUoxetine 2020-0 Yes [id number] 10mg Take 1 Univers 10 mg 2-04 capsule by ity of capsule 00:00: mouth [place] 00 daily. [facility] FLUoxetine 2020-0 Yes [id number] 10mg Take 1 Univers 10 mg 2-04 capsule by ity of capsule 00:00: mouth [place] 00 daily. [facility] FLUoxetine 2020-0 Yes [id number] 10mg Take 1 Univers 10 mg 2-04 capsule by ity of capsule 00:00: mouth [place] 00 daily. [facility] FLUoxetine 2020-0 2020- No [id number] 10mg Take 1 Univers 10 mg 2-04 04-24 capsule by ity of capsule 00:00: 00:00 mouth [place] 00 :00 daily. [facility] FLUoxetine 2019-0 2020- No [id number] 10mg Take 1 Univers 10 mg 2-04 04-24 capsule by ity of capsule 00:00: 00:00 mouth [place] 00 :00 daily. [facility] acetaminoph 2020-0 2020- No 650mg 650 mg, U nivers en 11-01 Oral, ity of (TYLENOL) 16:00: 15:01 ONCE, 1 [place] tablet 650 00 :00 dose, [place] Medi johnny mg 11/01/19 at Branch 1000, Routine cefdinir 2020-0 Yes Univers 300 mg 1-22 ity of capsule 00:00: [place] 00 [facility] Branch cefdinir 2020-0 Yes Univers 300 mg 1-22 ity of capsule 00:00: [place] 00 [facility] cefdinir 2020-0 Yes Univers 300 mg 1-22 ity of capsule 00:00: [place] 00 Medical Branch cefdinir 2020-0 Yes Univers 300 mg 1-22 ity of capsule 00:00: [place] [address] Medical Branch cefdinir 2020-0 Yes Univers 300 mg 1-22 ity of capsule 00:00: [place] [address] Medical Branch cefdinir 2020-0 Yes Univers 300 mg 1-22 ity of capsule 00:00: [place] [address] Medical Branch cefdinir 2020-0 Yes Univers 300 mg 1-22 ity of capsule 00:00: [place] [address] Medical Branch cefdinir 2020-0 Yes [facility] 300 mg 1-22 ity of capsule 00:00: [place] [address] Medical Branch cefdinir 2020-0 Yes [facility] 300 mg 1-22 ity of capsule 00:00: [place] [address] Medical Branch cefdinir 2020-0 Yes [facility] 300 mg 1-22 ity of capsule 00:00: [place] [address] Medical Branch cefdinir 2020-0 Yes [facility] 300 mg 1-22 ity of capsule 00:00: [place] [address] Medical Branch cefdinir 2020-0 Yes [facility] 300 mg 1-22 ity of capsule 00:00: [place] [address] Medical Branch cefdinir 2020-0 Yes [facility] 300 mg 1-22 ity of capsule 00:00: [place] [address] Medical Branch cefdinir 2020-0 Yes [facility] 300 mg 1-22 ity of capsule 00:00: [place] [address] Medical Branch cefdinir 2020-0 Yes [facility] 300 mg 1-22 ity of capsule 00:00: [place] [address] Medical Branch cefdinir 2020-0 Yes [facility] 300 mg 1-22 ity of capsule 00:00: [place] [address] Medical Branch cefdinir 2020-0 Yes [facility] 300 mg 1-22 ity of capsule 00:00: [place] [address] Medical Branch cefdinir 2020-0 Yes [facility] 300 mg 1-22 ity of capsule 00:00: [place] [address] Medical Branch cefdinir 2020-0 Yes [facility] 300 mg 1-22 ity of capsule 00:00: [place] [address] Medical Branch cefdinir 2020-0 Yes [facility] 300 mg 1-22 ity of capsule 00:00: [place] [address] Medical Branch cefdinir 2020-0 Yes [facility] 300 mg 1-22 ity of capsule 00:00: [place] [address] Medical Branch cefdinir 2020-0 Yes Univers 300 mg 1-22 ity of capsule 00:00: [place] [address] Medical Branch cefdinir 2020-0 2020- No Univers 300 mg 1-22 04-22 ity of capsule 00:00: 00:00 [place] 00 :00 Medical Branch cefdinir 2020-0 2020- No Univers 300 mg 10-31 ity of capsule 00:00: 00:00 [place] 00 :00 Medical Branch ondansetron 2018-10 Yes [id number] 4mg Take 1 [facility] 4 mg tablet 2-29 tablet by ity of 00:00: mouth [place] 00 every 6 Medical (six) Branch hours as needed for Nausea and Vomiting (N/V). pantoprazol 2018-10 Yes [id number] 20mg Take 1 Univers e 20 mg EC 2-29 tablet by ity of tablet 00:00: mouth [place] 00 daily. Medical Branch ondansetron 2018-10 Yes [id number] 4mg Take 1 [facility] 4 mg tablet 2-29 tablet by ity of 00:00: mouth [place] 00 every 6 Medical (six) Branch hours as needed for Nausea and Vomiting (N/V). pantoprazol 2018-10 Yes [id number] 20mg Take 1 Univers e 20 mg EC 2-29 tablet by ity of tablet 00:00: mouth [place] 00 daily. Medical Branch ondansetron 2018-10 Yes [id number] 4mg Take 1 [facility] 4 mg tablet 2-29 tablet by ity of 00:00: mouth [place] 00 every 6 Medical (six) Branch hours as needed for Nausea and Vomiting (N/V). pantoprazol 2018-10 Yes [id number] 20mg Take 1 Univers e 20 mg EC 2-29 tablet by ity of tablet 00:00: mouth [place] 00 daily. Medical Branch ondansetron 2018-10 Yes [id number] 4mg Take 1 [facility] 4 mg tablet 2-29 tablet by ity of 00:00: mouth [place] 00 every 6 Medical (six) Branch hours as needed for Nausea and Vomiting (N/V). pantoprazol 2018-10 Yes [id number] 20mg Take 1 Univers e 20 mg EC 2-29 tablet by ity of tablet 00:00: mouth [place] 00 daily. Medical Branch ondansetron 2018-10 Yes [id number] 4mg Take 1 [facility] 4 mg tablet 2-29 tablet by ity of 00:00: mouth [place] 00 every 6 Medical (six) Branch hours as needed for Nausea and Vomiting (N/V). pantoprazol 2018-10 Yes [id number] 20mg Take 1 Univers e 20 mg EC 2-29 tablet by ity of tablet 00:00: mouth [place] 00 daily. Medical Branch ondansetron 2018-10 Yes [id number] 4mg Take 1 [facility] 4 mg tablet 2-29 tablet by ity of 00:00: mouth [place] 00 every 6 Medical (six) Branch hours as needed for Nausea and Vomiting (N/V). pantoprazol 2018-10 Yes [id number] 20mg Take 1 Univers e 20 mg EC 2-29 tablet by ity of tablet 00:00: mouth [place] 00 daily. Medical Branch ondansetron 2018-10 Yes [id number] 4mg Take 1 [facility] 4 mg tablet 2-29 tablet by ity of 00:00: mouth [place] 00 every 6 Medical (six) Branch hours as needed for Nausea and Vomiting (N/V). pantoprazol 2018-10 Yes [id number] 20mg Take 1 Univers e 20 mg EC 2-29 tablet by ity of tablet 00:00: mouth [place] 00 daily. Medical Branch ondansetron 2018-10 Yes [id number] 4mg Take 1 [facility] 4 mg tablet 2-29 tablet by ity of 00:00: mouth [place] 00 every 6 Medical (six) Branch hours as needed for Nausea and Vomiting (N/V). pantoprazol 2018-10 Yes [id number] 20mg Take 1 Univers e 20 mg EC 2-29 tablet by ity of tablet 00:00: mouth [place] 00 daily. Medical Branch ondansetron 2018-10 Yes [id number] 4mg Take 1 [facility] 4 mg tablet 2-29 tablet by ity of 00:00: mouth [place] 00 every 6 Medical (six) Branch hours as needed for Nausea and Vomiting (N/V). pantoprazol 2018-10 Yes [id number] 20mg Take 1 Univers e 20 mg EC 2-29 tablet by ity of tablet 00:00: mouth [place] 00 daily. Medical Branch ondansetron 2018-10 Yes [id number] 4mg Take 1 [facility] 4 mg tablet 2-29 tablet by ity of 00:00: mouth [place] 00 every 6 Medical (six) Branch hours as needed for Nausea and Vomiting (N/V). pantoprazol 2018-10 Yes [id number] 20mg Take 1 Univers e 20 mg EC 2-29 tablet by ity of tablet 00:00: mouth [place] 00 daily. Medical Branch ondansetron 2018-10 Yes [id number] 4mg Take 1 [facility] 4 mg tablet 2-29 tablet by ity of 00:00: mouth [place] 00 every 6 Medical (six) Branch hours as needed for Nausea and Vomiting (N/V). pantoprazol 2018-10 Yes [id number] 20mg Take 1 Univers e 20 mg EC 2-29 tablet by ity of tablet 00:00: mouth [place] 00 daily. Medical Branch ondansetron 2018-10 Yes [id number] 4mg Take 1 [facility] 4 mg tablet 2-29 tablet by ity of 00:00: mouth [place] 00 every 6 Medical (six) Branch hours as needed for Nausea and Vomiting (N/V). pantoprazol 2018-10 Yes [id number] 20mg Take 1 Univers e 20 mg EC 2-29 tablet by ity of tablet 00:00: mouth [place] 00 daily. Medical Branch ondansetron 2018-10 Yes [id number] 4mg Take 1 [facility] 4 mg tablet 2-29 tablet by ity of 00:00: mouth [place] 00 every 6 Medical (six) Branch hours as needed for Nausea and Vomiting (N/V). pantoprazol 2018-10 Yes [id number] 20mg Take 1 Univers e 20 mg EC 2-29 tablet by ity of tablet 00:00: mouth [place] 00 daily. Medical Branch ondansetron 2018-10 Yes [id number] 4mg Take 1 [facility] 4 mg tablet 2-29 tablet by ity of 00:00: mouth [place] 00 every 6 Medical (six) Branch hours as needed for Nausea and Vomiting (N/V). pantoprazol 2018-10 Yes [id number] 20mg Take 1 Univers e 20 mg EC 2-29 tablet by ity of tablet 00:00: mouth [place] 00 daily. Medical Branch ondansetron 2018-10 Yes [id number] 4mg Take 1 [facility] 4 mg tablet 2-29 tablet by ity of 00:00: mouth [place] 00 every 6 Medical (six) Branch hours as needed for Nausea and Vomiting (N/V). pantoprazol 2018-10 Yes [id number] 20mg Take 1 Univers e 20 mg EC 2-29 tablet by ity of tablet 00:00: mouth [place] 00 daily. Medical Branch ondansetron 2018-10 Yes [id number] 4mg Take 1 [facility] 4 mg tablet 2-29 tablet by ity of 00:00: mouth [place] 00 every 6 Medical (six) Branch hours as needed for Nausea and Vomiting (N/V). pantoprazol 2018-10 Yes [id number] 20mg Take 1 Univers e 20 mg EC 2-29 tablet by ity of tablet 00:00: mouth [place] 00 daily. Medical Branch ondansetron 2018-10 Yes [id number] 4mg Take 1 [facility] 4 mg tablet 2-29 tablet by ity of 00:00: mouth [place] 00 every 6 Medical (six) Branch hours as needed for Nausea and Vomiting (N/V). pantoprazol 2018-10 Yes [id number] 20mg Take 1 Univers e 20 mg EC 2-29 tablet by ity of tablet 00:00: mouth [place] 00 daily. Medical Branch ondansetron 2018-10 Yes [id number] 4mg Take 1 [facility] 4 mg tablet 2-29 tablet by ity of 00:00: mouth [place] 00 every 6 Medical (six) Branch hours as needed for Nausea and Vomiting (N/V). pantoprazol 2018-10 Yes [id number] 20mg Take 1 Univers e 20 mg EC 2-29 tablet by ity of tablet 00:00: mouth [place] 00 daily. Medical Branch ondansetron 2018-10 Yes [id number] 4mg Take 1 [facility] 4 mg tablet 2-29 tablet by ity of 00:00: mouth [place] 00 every 6 Medical (six) Branch hours as needed for Nausea and Vomiting (N/V). pantoprazol 2018-10 Yes [id number] 20mg Take 1 Univers e 20 mg EC 2-29 tablet by ity of tablet 00:00: mouth [place] 00 daily. Medical Branch ondansetron 2018-10 Yes [id number] 4mg Take 1 [facility] 4 mg tablet 2-29 tablet by ity of 00:00: mouth [place] 00 every 6 Medical (six) Branch hours as needed for Nausea and Vomiting (N/V). pantoprazol 2018-10 Yes [id number] 20mg Take 1 Univers e 20 mg EC 2-29 tablet by ity of tablet 00:00: mouth [place] 00 daily. Medical Branch ondansetron 2018-10 Yes [id number] 4mg Take 1 [facility] 4 mg tablet 2-29 tablet by ity of 00:00: mouth [place] 00 every 6 Medical (six) Branch hours as needed for Nausea and Vomiting (N/V). pantoprazol 2018-10 Yes [id number] 20mg Take 1 Univers e 20 mg EC 2-29 tablet by ity of tablet 00:00: mouth [place] 00 daily. Medical Branch ondansetron 2018-10 Yes [id number] 4mg Take 1 [facility] 4 mg tablet 2-29 tablet by ity of 00:00: mouth [place] 00 every 6 Medical (six) Branch hours as needed for Nausea and Vomiting (N/V). pantoprazol 2018-10 Yes [id number] 20mg Take 1 Univers e 20 mg EC 2-29 tablet by ity of tablet 00:00: mouth [place] 00 daily. Medical Branch ondansetron 2018-10 Yes [id number] 4mg Take 1 [facility] 4 mg tablet 2-29 tablet by ity of 00:00: mouth [place] 00 every 6 Medical (six) Branch hours as needed for Nausea and Vomiting (N/V). pantoprazol 2018-10 Yes [id number] 20mg Take 1 Univers e 20 mg EC 2-29 tablet by ity of tablet 00:00: mouth [place] 00 daily. Medical Branch ondansetron 2018-10 Yes [id number] 4mg Take 1 [facility] 4 mg tablet 2-29 tablet by ity of 00:00: mouth [place] 00 every 6 Medical (six) Branch hours as needed for Nausea and Vomiting (N/V). pantoprazol 2018-10 Yes [id number] 20mg Take 1 Univers e 20 mg EC 2-29 tablet by ity of tablet 00:00: mouth [place] 00 daily. Medical Branch ondansetron 2018-10 2020- No [id number] 4mg Take 1 [facility] 4 mg tablet 2-29 04-08 tablet by it y of 00:00: 00:00 mouth [place] 00 :00 every 6 Medical (six) Branch hours as needed for Nausea and Vomiting (N/V). pantoprazol 2018-10 2020- No [id number] 20mg Take 1 Univers e 20 mg EC 2-29 04-08 tablet by ity of tablet 00:00: 00:00 mouth [place] 00 :00 daily. Medical Branch busPIRone 5 2018-10 Yes [id number] 5mg Take 1 Univers mg tablet 2-23 tablet by ity o f 00:00: mouth 2 [place] 00 (two) Medical times Branch daily. busPIRone 5 2018-10 Yes [id number] 5mg Take 1 Univers mg tablet 2-23 tablet by ity o f 00:00: mouth 2 00 (two) Medical times Branch daily. busPIRone 5 2018-10 Yes [id number] 5mg Take 1 Univers mg tablet 2-23 tablet by ity o f 00:00: mouth 2 00 (two) Medical times Branch daily. busPIRone 2018-10 Yes [id number] 5mg Take 1 Univers mg tablet 2-23 tablet by ity o f 00:00: mouth 2 00 (two) Medical times Branch daily. busPIRone 2018-10 Yes [id number] 5mg Take 1 Univers mg tablet 2-23 tablet by ity o f 00:00: mouth 2 00 (two) Medical times Branch daily. busPIRone 2018-10 Yes [id number] 5mg Take 1 Univers mg tablet 2-23 tablet by ity o f 00:00: mouth 2 [place] 00 (two) Medical times Branch daily. busPIRone 2018-10 Yes [id number] 5mg Take 1 Univers mg tablet 2-23 tablet by ity o f 00:00: mouth 2 00 (two) Medical times Branch daily. busPIRone 2018-10 Yes [id number] 5mg Take 1 Univers mg tablet 2-23 tablet by ity o f 00:00: mouth 2 [place] 00 (two) Medical times Branch daily. busPIRone 2018-10 2020- No [id number] 5mg Take 1 Univers mg tablet 2-23 02-18 tablet by ity of 00:00: 00:00 mouth 2 [place] 00 :00 (two) Medical times Branch daily. busPIRone 2018-10 2020- No [id number] 5mg Take 1 Univers mg tablet 2-23 02-18 tablet by ity of 00:00: 00:00 mouth 2 [place] 00 :00 (two) Medical times Branch daily. busPIRone 2018-10 2020- No [id number] 5mg Take 1 Univers mg tablet 2-23 02-18 tablet by ity of 00:00: 00:00 mouth 2 [place] 00 :00 (two) Medical times Branch daily. FLUoxetine 2018-10 Yes [id number] 10mg Take 1 [facility] 10 mg 1-22 capsule by ity of capsule 00:00: mouth [place] 00 daily. Medical Branch FLUoxetine 2018-10 Yes [id number] 10mg Take 1 Univers 10 mg 1-22 capsule by ity of capsule 00:00: mouth [place] 00 daily. Medical Branch FLUoxetine 2018-10 Yes [id number] 10mg Take 1 Univers 10 mg 1-22 capsule by ity of capsule 00:00: mouth [place] 00 daily. Medical Branch FLUoxetine 2018-10 Yes [id number] 10mg Take 1 [facility] 10 mg 1-22 capsule by ity of capsule 00:00: mouth [place] 00 daily. Medical Branch FLUoxetine 2018-10 Yes [id number] 10mg Take 1 [facility] 10 mg 1-22 capsule by ity of capsule 00:00: mouth [place] 00 daily. Medical Branch FLUoxetine 2018-10 Yes [id number] 10mg Take 1 [facility] 10 mg 1-22 capsule by ity of capsule 00:00: mouth [place] 00 daily. Medical Branch FLUoxetine 2018-10 2020- No [id number] 10mg Take 1 [facility] 10 mg 1-22 02-04 capsule by ity of capsule 00:00: 00:00 mouth [place] 00 :00 daily. Medical Branch PNV Yes [id number] Take 1 Univers 102-iron-fo 9-24 TAB-CAP/M2 it y of late 00:00: by mouth [place] 1-dss-dha 00 daily. Medical (VITAFOL Branch FE+, WITH DOCUSATE,) 90 mg iron-1 mg -50 mg-200 mg Cap doxylamine- Yes [id number] 1{tbl} Take 1 Univers pyridoxine, 9-24 tablet by ity of vit B6, 00:00: mouth [place] (DICLEGIS) SEE-INSTRU Med ical 10-10 mg CTIONS. Branch per tablet PNV Yes [id number] Take 1 [facility] 102-iron-fo 9-24 TAB-CAP/M2 it y of late 00:00: by mouth [place] 1-dss-dha 00 daily. Medical (VITAFOL Branch FE+, WITH DOCUSATE,) 90 mg iron-1 mg -50 mg-200 mg Cap doxylamine- Yes [id number] 1{tbl} Take 1 Univers pyridoxine, 9-24 tablet by ity of vit B6, 00:00: mouth [place] (DICLEGIS) 00 SEE-INSTRU Med ical 10-10 mg CTIONS. Branch per tablet PNV Yes [id number] Take 1 [facility] 102-iron-fo 9-24 TAB-CAP/M2 it y of late 00:00: by mouth [place] 1-dss-dha 00 daily. Medical (VITAFOL Branch FE+, WITH DOCUSATE,) 90 mg iron-1 mg -50 mg-200 mg Cap doxylamine- Yes [id number] 1{tbl} Take 1 [facility] pyridoxine, 9-24 tablet by ity of vit B6, 00:00: mouth [place] (D[place]LE[place]) 00 SEE-INSTRU Med ical 10-10 mg CTIONS. Branch per tablet PNV Yes [id number] Take 1 [facility] 102-iron-fo 9-24 TAB-CAP/M2 it y of late 00:00: by mouth [place] 1-dss-dha 00 daily. Medical (VITAFOL Branch FE+, WITH DOCUSATE,) 90 mg iron-1 mg -50 mg-200 mg Cap doxylamine- Yes [id number] 1{tbl} Take 1 Univers pyridoxine, 9-24 tablet by ity of vit B6, 00:00: mouth [place] ([place]LE[place]) SEE-INSTRU Med ical 10-10 mg CTIONS. Branch per tablet PNV Yes [id number] Take 1 [facility] 102-iron-fo 9-24 TAB-CAP/M2 it y of late 00:00: by mouth [place] 1-dss-dha 00 daily. Medical (VITAFOL Branch FE+, WITH DOCUSATE,) 90 mg iron-1 mg -50 mg-200 mg Cap PNV Yes [id number] Take 1 [facility] 102-iron-fo 9-24 TAB-CAP/M2 it y of late 00:00: by mouth [place] 1-dss-dha 00 daily. Medical (VITAFOL Branch FE+, WITH DOCUSATE,) 90 mg iron-1 mg -50 mg-200 mg Cap PNV Yes [id number] Take 1 [facility] 102-iron-fo 9-24 TAB-CAP/M2 it y of late 00:00: by mouth [place] 1-dss-dha 00 daily. Medical (VITAFOL Branch FE+, WITH DOCUSATE,) 90 mg iron-1 mg -50 mg-200 mg Cap PNV Yes [id number] Take 1 [facility] 102-iron-fo 9-24 TAB-CAP/M2 it y of late 00:00: by mouth [place] [address] daily. Medical (VITAFOL Branch FE+, WITH DOCUSATE,) 90 mg iron-1 mg -50 mg-200 mg Cap PNV Yes [id number] Take 1 [facility] 102-iron-fo 9-24 TAB-CAP/M2 it y of late 00:00: by mouth [place] [address] daily. Medical (VITAFOL Branch FE+, WITH DOCUSATE,) 90 mg iron-1 mg -50 mg-200 mg Cap PNV Yes [id number] Take 1 [facility] 102-iron-fo 9-24 TAB-CAP/M2 it y of late 00:00: by mouth [place] [address] daily. Medical (VITAFOL Branch FE+, WITH DOCUSATE,) 90 mg iron-1 mg -50 mg-200 mg Cap PNV Yes [id number] Take 1 Univers 102-iron-fo 9-24 TAB-CAP/M2 it y of late 00:00: by mouth [place] [address] daily. Medical (VITAFOL Branch FE+, WITH DOCUSATE,) 90 mg iron-1 mg -50 mg-200 mg Cap PNV Yes [id number] Take 1 Univers 102-iron-fo 9-24 TAB-CAP/M2 it y of late 00:00: by mouth [place] [address] daily. Medical (VITAFOL Branch FE+, WITH DOCUSATE,) 90 mg iron-1 mg -50 mg-200 mg Cap PNV Yes [id number] Take 1 [facility] 102-iron-fo 9-24 TAB-CAP/M2 it y of late 00:00: by mouth [place] [address] daily. Medical (VITAFOL Branch FE+, WITH DOCUSATE,) 90 mg iron-1 mg -50 mg-200 mg Cap PNV Yes [id number] Take 1 [facility] 102-iron-fo 9-24 TAB-CAP/M2 it y of late 00:00: by mouth [place] [address] daily. Medical (VITAFOL Branch FE+, WITH DOCUSATE,) 90 mg iron-1 mg -50 mg-200 mg Cap PNV Yes [id number] Take 1 [facility] 102-iron-fo 9-24 TAB-CAP/M2 it y of late 00:00: by mouth [address] daily. Medical (VITAFOL Branch FE+, WITH DOCUSATE,) 90 mg iron-1 mg -50 mg-200 mg Cap PNV Yes [id number] Take 1 [facility] 102-iron-fo 9-24 TAB-CAP/M2 it y of late 00:00: by mouth [address] daily. Medical (VITAFOL Branch FE+, WITH DOCUSATE,) 90 mg iron-1 mg -50 mg-200 mg Cap PNV Yes [id number] Take 1 [facility] 102-iron-fo 9-24 TAB-CAP/M2 it y of late 00:00: by mouth [address] daily. Medical (VITAFOL Branch FE+, WITH DOCUSATE,) 90 mg iron-1 mg -50 mg-200 mg Cap PNV Yes [id number] Take 1 [facility] 102-iron-fo 9-24 TAB-CAP/M2 it y of late 00:00: by mouth [address] daily. Medical (VITAFOL Branch FE+, WITH DOCUSATE,) 90 mg iron-1 mg -50 mg-200 mg Cap PNV Yes [id number] Take 1 Univers 102-iron-fo 9-24 TAB-CAP/M2 it y of late 00:00: by mouth [address] daily. Medical (VITAFOL Branch FE+, WITH DOCUSATE,) 90 mg iron-1 mg -50 mg-200 mg Cap PNV Yes [id number] Take 1 [facility] 102-iron-fo 9-24 TAB-CAP/M2 it y of late 00:00: by mouth [address] daily. Medical (VITAFOL Branch FE+, WITH DOCUSATE,) 90 mg iron-1 mg -50 mg-200 mg Cap PNV Yes [id number] Take 1 Univers 102-iron-fo 9-24 TAB-CAP/M2 it y of late 00:00: by mouth [address] 00 daily. Medical (VITAFOL Branch FE+, WITH DOCUSATE,) 90 mg iron-1 mg -50 mg-200 mg Cap PNV Yes [id number] Take 1 Univers 102-iron-fo 9-24 TAB-CAP/M2 it y of late 00:00: by mouth [address] daily. Medical (VITAFOL Branch FE+, WITH DOCUSATE,) 90 mg iron-1 mg -50 mg-200 mg Cap PNV Yes [id number] Take 1 Univers 102-iron-fo 9-24 TAB-CAP/M2 it y of late 00:00: by mouth [place] [address] daily. Medical (VITAFOL Branch FE+, WITH DOCUSATE,) 90 mg iron-1 mg -50 mg-200 mg Cap PNV Yes [id number] Take 1 Univers 102-iron-fo 9-24 TAB-CAP/M2 it y of late 00:00: by mouth [place] [address] daily. Medical (VITAFOL Branch FE+, WITH DOCUSATE,) 90 mg iron-1 mg -50 mg-200 mg Cap PNV Yes [id number] Take 1 [facility] 102-iron-fo 9-24 TAB-CAP/M2 it y of late 00:00: by mouth [address] daily. Medical (VITAFOL Branch FE+, WITH DOCUSATE,) 90 mg iron-1 mg -50 mg-200 mg Cap PNV Yes [id number] Take 1 Univers 102-iron-fo 9-24 TAB-CAP/M2 it y of late 00:00: by mouth [place] [address] daily. Medical (VITAFOL Branch FE+, WITH DOCUSATE,) 90 mg iron-1 mg -50 mg-200 mg Cap PNV Yes [id number] Take 1 Univers 102-iron-fo 9-24 TAB-CAP/M2 it y of late 00:00: by mouth [place] [address] daily. Medical (VITAFOL Branch FE+, WITH DOCUSATE,) 90 mg iron-1 mg -50 mg-200 mg Cap PNV Yes [id number] Take 1 Univers 102-iron-fo 9-24 TAB-CAP/M2 it y of late 00:00: by mouth [place] [address] 00 daily. Medical (VITAFOL Branch FE+, WITH DOCUSATE,) 90 mg iron-1 mg -50 mg-200 mg Cap PNV Yes [id number] Take 1 [facility] 102-iron-fo 9-24 TAB-CAP/M2 it y of late 00:00: by mouth [place] 1-dss-dha 00 daily. Medical (VITAFOL Branch FE+, WITH DOCUSATE,) 90 mg iron-1 mg -50 mg-200 mg Cap PNV Yes [id number] Take 1 [facility] 102-iron-fo 9-24 TAB-CAP/M2 it y of late 00:00: by mouth [place] 1-dss-dha 00 daily. Medical (VITAFOL Branch FE+, WITH DOCUSATE,) 90 mg iron-1 mg -50 mg-200 mg Cap PNV Yes [id number] Take 1 Univers 102-iron-fo 9-24 TAB-CAP/M2 it y of late 00:00: by mouth [place] 1-dss-dha 00 daily. Medical (VITAFOL Branch FE+, WITH DOCUSATE,) 90 mg iron-1 mg -50 mg-200 mg Cap PNV 2020- No [id number] Take 1 Univer s 102-iron-fo -24 04-24 TAB-CAP/M2 i ty of late 00:00: 00:00 by mouth [place] 1-dss-dha 00 :00 daily. Medical (VITAFOL Branch FE+, WITH DOCUSATE,) 90 mg iron-1 mg -50 mg-200 mg Cap PNV 2020- No [id number] Take 1 Univer s 102-iron-fo -24 04-24 TAB-CAP/M2 i ty of late 00:00: 00:00 by mouth [place] 1-dss-dha 00 :00 daily. Medical (VITAFOL Branch FE+, WITH DOCUSATE,) 90 mg iron-1 mg -50 mg-200 mg Cap doxylamine- 2020- No [id number] 1{tbl} Take 1 Univers pyridoxine, 07-03-27 tablet by it y of vit B6, 00:00: 00:00 mouth [place] (DICLEGIS) 00 :00 SEE-INSTRU Med ical 10-10 mg CTIONS. Branch per tablet AMETHIA Yes Take 1 [facility] 0.15 mg-30 7-28 tablet ity of mcg (84)/10 00:00: [place] m[place] (7[place] per 00 once daily Me dical tablet at the Branch same time. Flonase Flonase 2017-10 Yes [facility] [address] [facility]-10 [facility] DiazePAM 2 DiazePAM 2 2017-10 Yes JOEL 1 hour PO Univers MG Oral MG Oral 1-16 LI-DERIAN before MRI ity of Tablet Tablet 00:00: ST[place] Phys[facility] No known No Univers medications ity of [facility] No known No Univers medications ity of [facility] No known No Univers medications ity of [facility] No known No Univers medications ity of [facility] No known No Univers medications ity of [facility] Tylenol Tylenol Yes Univers with with ity of Codeine #3 Codeine #3 [place] as TABS TABS Physici ans [place] Yes [facility] Long not [facility] Naproxen Naproxen Yes Univers TABS TABS ity of [place] Physici ans Immunizations Ordered Filled Immunization Date Status Comments [facility] e Immunization Name Name TDAP (ADACEL) 2019-12-03 Completed University of VACCINE 00:00:00 [facility] TDAP (ADACEL) 2019-12-03 Completed University of VACCINE 00:00:00 [facility] TDAP (ADACEL) 2019-12-03 Completed University of VACCINE 00:00:00 [facility] TDAP (ADACEL) 2019-12-03 Completed University of VACCINE 00:00:00 [facility] TDAP (ADACEL) 2019-12-03 Completed University of VACCINE 00:00:00 [facility] TDAP (ADACEL) 2019-12-03 Completed University of VACCINE 00:00:00 [facility] TDAP (ADACEL) 2019-12-03 Completed University of VACCINE 00:00:00 [facility] TDAP (ADACEL) 2019-12-03 Completed University of VACCINE 00:00:00 [facility] TDAP (ADACEL) 2019-12-03 Completed University of VACCINE 00:00:00 [facility] TDAP (ADACEL) 2019-12-03 Completed University of VACCINE 00:00:00 [facility] TDAP (ADACEL) 2019-12-03 Completed University of VACCINE 00:00:00 [facility] TDAP (ADACEL) 2019-12-03 Completed University of VACCINE 00:00:00 [place] [facility] TDAP (ADACEL) 2019-12-03 Completed University of VACCINE 00:00:00 [place] [facility] TDAP (ADACEL) 2019-12-03 Completed University of VACCINE 00:00:00 [place] [facility] TDAP (ADACEL) 2019-12-03 Completed University of VACCINE 00:00:00 [place] [facility] TDAP (ADACEL) 2019-12-03 Completed University of VACCINE 00:00:00 [place] [facility] TDAP (ADACEL) 2019-12-03 Completed University of VACCINE 00:00:00 [place] [facility] TDAP (ADACEL) 2019-12-03 Completed University of VACCINE 00:00:00 [place] [facility] TDAP (ADACEL) 2019-12-03 Completed University of VACCINE 00:00:00 [place] [facility] TDAP (ADACEL) 2019-12-03 Completed University of VACCINE 00:00:00 [place] [facility] TDAP (ADACEL) 2019-12-03 Completed University of VACCINE 00:00:00 [place] [facility] TDAP (ADACEL) 2019-12-03 Completed University of VACCINE 00:00:00 [place] [facility] TDAP (ADACEL) 2019-12-03 Completed University of VACCINE 00:00:00 [place] [facility] TDAP (ADACEL) 2019-12-03 Completed University of VACCINE 00:00:00 [place] [facility] TDAP (ADACEL) 2019-12-03 Completed University of VACCINE 00:00:00 [place] [facility] TDAP (ADACEL) 2019-12-03 Completed University of VACCINE 00:00:00 [place] [facility] TDAP (ADACEL) 2019-12-03 Completed University of VACCINE 00:00:00 [place] [facility] TDAP (ADACEL) 2019-12-03 Completed University of VACCINE 00:00:00 [place] [facility] TDAP (ADACEL) 2019-12-03 Completed University of VACCINE 00:00:00 [place] [facility] TDAP (ADACEL) 2019-12-03 Completed University of VACCINE 00:00:00 [place] [facility] TDAP (ADACEL) 2019-12-03 Completed University of VACCINE 00:00:00 [place] [facility] TDAP (ADACEL) 2019-12-03 Completed University of VACCINE 00:00:00 [place] [facility] TDAP (ADACEL) 2019-12-03 Completed University of VACCINE 00:00:00 [place] [facility] TDAP (ADACEL) 2019-12-03 Completed University of VACCINE 00:00:00 [place] [facility] TDAP (ADACEL) 2019-12-03 Completed University of VACCINE 00:00:00 [place] [facility] TDAP (ADACEL) 2019-12-03 Completed University of VACCINE 00:00:00 [place] [facility] TDAP (ADACEL) 2019-12-03 Completed University of VACCINE 00:00:00 [place] [facility] TDAP (ADACEL) 2019-12-03 Completed University of VACCINE 00:00:00 [place] [facility] TDAP (ADACEL) 2019-12-03 Completed University of VACCINE 00:00:00 [place] [facility] TDAP (ADACEL) 2019-12-03 Completed University of VACCINE 00:00:00 [place] [facility] TDAP (ADACEL) 2019-12-03 Completed University of VACCINE 00:00:00 [facility] Branch TDAP (ADACEL) 2019-12-03 Completed University of VACCINE 00:00:00 [facility] Branch TDAP (ADACEL) 2019-12-03 Completed University of VACCINE 00:00:00 [facility] Branch TDAP (ADACEL) 2019-12-03 Completed University of VACCINE 00:00:00 [place] [facility] TDAP (ADACEL) 2019-12-03 Completed University of VACCINE 00:00:00 [place] [facility] TDAP (ADACEL) 2019-12-03 Completed University of VACCINE 00:00:00 [place] [facility] TDAP (ADACEL) 2019-12-03 Completed University of VACCINE 00:00:00 [place] [facility] TDAP (ADACEL) 2019-12-03 Completed University of VACCINE 00:00:00 [place] [facility] TDAP (ADACEL) 2019-12-03 Completed University of VACCINE 00:00:00 [place] [facility] TDAP (ADACEL) 2019-12-03 Completed University of VACCINE 00:00:00 [place] [facility] TDAP (ADACEL) 2019-12-03 Completed University of VACCINE 00:00:00 [place] [facility] TDAP (ADACEL) 2019-12-03 Completed University of VACCINE 00:00:00 [place] [facility] TDAP (ADACEL) 2019-12-03 Completed University of VACCINE 00:00:00 [place] [facility] TDAP (ADACEL) 2019-12-03 Completed University of VACCINE 00:00:00 [place] [facility] TDAP (ADACEL) 2019-12-03 Completed University of VACCINE 00:00:00 [facility] Branch TDAP (ADACEL) 2019-12-03 Completed University of VACCINE 00:00:00 [facility] Branch TDAP (ADACEL) 2019-12-03 Completed University of VACCINE 00:00:00 [place] [facility] TDAP (ADACEL) 2019-12-03 Completed University of VACCINE 00:00:00 [facility] Branch TDAP (ADACEL) 2019-12-03 Completed University of VACCINE 00:00:00 [facility] Branch TDAP (ADACEL) 2019-12-03 Completed University of VACCINE 00:00:00 [facility] Branch TDAP (ADACEL) 2019-12-03 Completed University of VACCINE 00:00:00 [facility] Branch TDAP (ADACEL) 2019-12-03 Completed University of VACCINE 00:00:00 [facility] TDAP (ADACEL) 2019-12-03 Completed University of VACCINE 00:00:00 [facility] Influenza Virus 2019-08-02 Completed Universit y of Vaccine Quad .5 mL 00:00:00 [place] [facility] 6+ MO Branch Influenza Virus 2019-08-02 Completed Universit y of Vaccine [place] .5 mL 00:00:00 [place] [facility] IM 6+ MO Branch Influenza Virus 2019-08-02 Completed Universit y of Vaccine [place] .5 mL 00:00:00 [place] [facility] IM 6+ MO Branch Influenza Virus 2019-08-02 Completed Universit y of Vaccine [place] .5 mL 00:00:00 [place] [facility] IM 6+ MO Branch Influenza Virus [...] y of Vaccine [place] .5 mL 00:00:00 [place] [facility] IM 6+ MO Branch Influenza Virus [...] y of Vaccine [place] .5 mL 00:00:00 [place] [facility] IM 6+ MO Branch Influenza Virus [...] y of Vaccine [place] .5 mL 00:00:00 [place] [facility] IM 6+ MO Branch Influenza Virus 2019-08-02 Completed Universit y of Vaccine [place] .5 mL 00:00:00 [place] [facility] IM 6+ MO Branch Influenza Virus 2019-08-02 Completed Universit y of Vaccine [place] .5 mL 00:00:00 [place] [facility] IM 6+ MO Branch Influenza Virus 2019-08-02 Completed Universit y of Vaccine [place] .5 mL 00:00:00 [place] [facility] 6+ MO Branch Influenza Virus 2019-08-02 Completed Universit y of Vaccine [place] .5 mL 00:00:00 [place] [facility] 6+ MO Branch Influenza Virus 2019-08-02 Completed Universit y of Vaccine [place] .5 mL 00:00:00 [place] [facility] 6+ MO Branch Influenza Virus 2019-08-02 Completed Universit y of [facility]ine [place] .5 mL 00:00:00 [place] [facility] 6+ MO Branch Influenza Virus 2019-08-02 Completed Universit y of [facility] [place] .5 mL 00:00:00 [place] [facility] 6+ MO Branch Influenza Virus 2019-08-02 Completed Universit y of [facility] [place] .5 mL 00:00:00 [place] [facility] 6+ MO Branch Influenza Virus 2019-08-02 Completed Universit y of [facility] [place] .5 mL 00:00:00 [place] [facility] 6+ MO Branch Influenza Virus 2019-08-02 Completed Universit y of [facility] [place] .5 mL 00:00:00 [place] [facility] 6+ MO Branch Influenza Virus 2019-08-02 Completed Universit y of [facility] [place] .5 mL 00:00:00 [place] [facility] 6+ MO Branch Influenza Virus 2019-08-02 Completed Universit y of [facility] [place] .5 mL 00:00:00 [facility] 6+ MO Branch Vital Signs Vital Name Observation Time Observation Value Comments Source Systolic blood 2022-01-25 14:50:00 119 mm[Hg] Univer sity of pressure [facility] Diastolic blood 2022-01-25 14:50:00 76 mm[Hg] Unive rsity of pressure [facility] Heart rate 2022-01-25 14:50:00 85 /min [facility]i [facility] of [place] [facility] Body temperature 2022-01-25 14:50:00 37.17 Silvina Univ ersity of [place] [facility] Respiratory rate 2022-01-25 14:50:00 17 /min Univ ersity of [place] [facility] Body height 2022-01-25 14:50:00 165.1 cm [facility] [place] [facility] Body weight 2022-01-25 14:50:00 109.68 kg [facility] [place] [facility] BMI 2022-01-25 14:50:00 40.24 kg/m2 [facility] [place] [facility] Oxygen saturation in 2022-01-25 14:50:00 99 /min University of Arterial blood by [place] [employer]ohnny Pulse oximetry Branch Systolic blood 2021-10-15 18:22:00 113 mm[Hg] Univer sity of pressure [place] [facility] Diastolic blood 2021-10-15 18:22:00 79 mm[Hg] Unive rsity of [facility] [place] Heart rate 2021-10-15 18:22:00 87 /min Universi ty of [place] [facility] Body temperature 2021-10-15 18:22:00 37.5 Silvina Univ ersity of [place] [facility] Respiratory rate 2021-10-15 18:22:00 18 /min Univ ersity of [place] [facility] Body height 2021-10-15 18:22:00 165.1 cm [facility] [place] [facility] Body weight 2021-10-15 18:22:00 108.863 kg [facility] [place] [facility] BMI 2021-10-15 18:22:00 39.94 kg/m2 [facility] [place] [facility] Oxygen saturation in 2021-10-15 18:22:00 98 /min University of Arterial blood by [place] [employer]ohnny Pulse oximetry Branch Body height 2021-07-30 00:38:00 165.1 cm [facility] [place] [facility] Body weight 2021-07-30 00:38:00 116.484 kg [facility] [place] [facility] BMI 2021-07-30 00:38:00 42.73 kg/m2 [facility] [place] [facility] Systolic blood 2021-07-30 00:37:00 124 mm[Hg] Univer sity of pressure [place] [facility] Diastolic blood 2021-07-30 00:37:00 71 mm[Hg] Unive rsity of pressure [place] [facility] Heart rate 2021-07-30 00:37:00 86 /min [facility] [place] [facility] Body temperature 2021-07-30 00:37:00 37.44 [place] [facility] ers[facility] [place] [facility] Respiratory rate 2021-07-30 00:37:00 18 /min Univ ersity of [place] [facility] Oxygen saturation in 2021-07-30 00:37:00 99 /min University of Arterial blood by [facility] Pulse oximetry Branch Systolic blood 2021-07-14 22:27:00 113 mm[Hg] Univer sity of pressure [place] [facility] Diastolic blood 2021-07-14 22:27:00 73 mm[Hg] Unive rsity of pressure [place] [facility] Heart rate 2021-07-14 22:27:00 96 /min [facility] [place] [facility] Body temperature 2021-07-14 22:27:00 36.78 [place] [facility] ers[facility] [place] [facility] Respiratory rate 2021-07-14 22:27:00 18 /min Univ ersity of [place] [facility] Body height 2021-07-14 22:27:00 165.1 cm [facility]i [facility] of [place] [facility] Body weight 2021-07-14 22:27:00 112.946 kg [facility] [place] [facility] BMI 2021-07-14 22:27:00 41.44 kg/m2 [facility] [place] [facility] Oxygen saturation in 2021-07-14 22:27:00 98 /min University of Arterial blood by [facility] Pulse oximetry Branch Body temperature 2021-06-30 18:04:00 36.22 [place]vina [facility] ers[facility] [place] [facility] Body height 2021-06-30 18:04:00 165.1 cm [facility] [place] [facility] Body weight 2021-06-30 18:04:00 113.309 kg [facility] [place] [facility] BMI 2021-06-30 18:04:00 41.57 kg/m2 [facility] [place] [facility] Heart rate 2021-06-21 21:04:00 87 /min [facility] [place] [facility] Respiratory rate 2021-06-21 21:04:00 18 /min Univ ersity of [place] [facility] Oxygen saturation in 2021-06-21 21:04:00 99 /min University of Arterial blood by [facility] Pulse oximetry Branch Systolic blood 2021-04-12 17:04:00 104 mm[Hg] [facility] Diastolic blood 2021-04-12 17:04:00 66 mm[Hg] Unive rs[facility] Heart rate 2021-04-12 17:04:00 85 /min [facility] Body temperature 2021-04-12 17:04:00 36.89 Silvina [facility] Respiratory rate 2021-04-12 17:04:00 16 /min [facility] Body height 2021-04-12 17:04:00 165.1 cm [facility] Body weight 2021-04-12 17:04:00 110.678 kg [facility] BMI 2021-04-12 17:04:00 40.60 kg/m2 [facility] [place] Oxygen saturation in 2021-04-12 17:04:00 99 /min University of Arterial blood by [facility] Pulse oximetry Branch Systolic blood 2020-09-30 16:45:00 117 mm[Hg] [facility] Diastolic blood 2020-09-30 16:45:00 83 mm[Hg] [facility]ive [facility] Heart rate 2020-09-30 16:45:00 87 /min [facility] Body temperature 2020-09-30 16:45:00 36.67 Silvina [facility] Respiratory rate 2020-09-30 16:45:00 18 /min [facility] Body height 2020-09-30 16:45:00 165.1 cm [facility] Body weight 2020-09-30 16:45:00 110.768 kg [facility] BMI 2020-09-30 16:45:00 40.64 kg/m2 [facility] Systolic blood 2020-09-30 16:45:00 117 mm[Hg] [facility] Diastolic blood 2020-09-30 16:45:00 83 mm[Hg] [facility] Heart rate 2020-09-30 16:45:00 87 /min Universi ty of [facility] Body temperature 2020-09-30 16:45:00 36.67 Silvina Univ ersity of [facility] Respiratory rate 2020-09-30 16:45:00 18 /min Univ ersity of [facility] Body height 2020-09-30 16:45:00 165.1 cm Universi ty of [facility] Body weight 2020-09-30 16:45:00 110.768 kg [facility] BMI 2020-09-30 16:45:00 40.64 kg/m2 Universi ty of [facility] Systolic blood 2020-06-11 15:39:00 113 mm[Hg] Univer sity of pressure [facility] Diastolic blood 2020-06-11 15:39:00 74 mm[Hg] Unive rsity of pressure [facility] Heart rate 2020-06-11 15:39:00 83 /min Universi ty of [facility] Body temperature 2020-06-11 15:39:00 36.78 Silvina Univ ersity of [facility] Respiratory rate 2020-06-11 15:39:00 18 /min Univ ersity of [facility] Body height 2020-06-11 15:39:00 165.1 cm [facility] Body weight 2020-06-11 15:39:00 108.41 kg [facility] BMI 2020-06-11 15:39:00 39.77 kg/m2 Universi ty of [facility] Body height 2020-02-29 14:27:00 165.1 cm Universi ty of [facility] Systolic blood 2020-02-01 12:16:00 108 mm[Hg] Univer sity of pressure [facility] Diastolic blood 2020-02-01 12:16:00 69 mm[Hg] Unive rsity of pressure [facility] Heart rate 2020-02-01 12:16:00 69 /min Universi ty of [facility] Body temperature 2020-02-01 12:16:00 36.5 Silvina Univ ersity of [facility] Respiratory rate 2020-02-01 12:16:00 18 /min Univ ersity of [facility] Oxygen saturation in 2020-02-01 05:00:00 99 /min [facility] Arterial blood by [facility] Pulse oximetry Branch Body height 2020-01-30 17:40:00 165.1 cm [facility] Body weight 2020-01-30 17:40:00 115.214 kg [facility] BMI 2020-01-30 17:40:00 42.27 kg/m2 [facility] Systolic blood 2020-01-30 14:19:00 116 mm[Hg] Univer sity of pressure [facility] Diastolic blood 2020-01-30 14:19:00 78 mm[Hg] Unive rsity of pressure [facility] Heart rate 2020-01-30 14:19:00 80 /min [facility] Body temperature 2020-01-30 14:19:00 36.5 Silvina Univ ersity of [facility] Respiratory rate 2020-01-30 14:19:00 18 /min Univ ersity of [facility] Body height 2020-01-30 14:19:00 165.1 cm Universi ty of [facility] Body weight 2020-01-30 14:19:00 115.395 kg Universi ty of [facility] BMI 2020-01-30 14:19:00 42.33 kg/m2 [facility] Systolic blood 2020-01-24 19:04:00 119 mm[Hg] Univer sity of pressure [facility] Diastolic blood 2020-01-24 19:04:00 73 mm[Hg] Unive rsity of pressure [facility] Heart rate 2020-01-24 19:04:00 90 /min Universi ty of [facility] Body temperature 2020-01-24 19:04:00 36.72 Silvina Univ ersity of [facility] Respiratory rate 2020-01-24 19:04:00 18 /min Univ ersity of [facility] Body height 2020-01-24 19:04:00 165.1 cm [facility] Body weight 2020-01-24 19:04:00 114.76 kg [facility] BMI 2020-01-24 19:04:00 42.10 kg/m2 [facility]i [facility] of [facility] Systolic blood 2020-01-23 17:18:00 117 mm[Hg] [facility] Diastolic blood 2020-01-23 17:18:00 64 mm[Hg] Unive rsity of pressure [facility] Heart rate 2020-01-23 17:18:00 91 /min [facility] Body temperature 2020-01-23 17:18:00 36.89 Silvina [facility] Respiratory rate 2020-01-23 17:18:00 18 /min [facility] Body height 2020-01-23 17:18:00 165.1 cm [facility] Body weight 2020-01-23 17:18:00 114.306 kg [facility] BMI 2020-01-23 17:18:00 41.93 kg/m2 [facility] Oxygen saturation in 2020-01-23 17:18:00 99 /min University of Arterial blood by [facility] Pulse oximetry Branch Systolic blood 2020-01-16 20:44:00 115 mm[Hg] [facility] Diastolic blood 2020-01-16 20:44:00 69 mm[Hg] Unive rsity of pressure [facility] Heart rate 2020-01-16 20:44:00 86 /min [facility] Body temperature 2020-01-16 20:44:00 36.72 Silvina [facility] Respiratory rate 2020-01-16 20:44:00 18 /min [facility] Body height 2020-01-16 20:44:00 165.1 cm [facility] Body weight 2020-01-16 20:44:00 114.306 kg [facility] BMI 2020-01-16 20:44:00 41.93 kg/m2 [facility] Systolic blood 2019-12-28 13:19:00 117 mm[Hg] [facility] Diastolic blood 2019-12-28 13:19:00 80 mm[Hg] [facility] Heart rate 2019-12-28 13:19:00 105 /min [facility] Body temperature 2019-12-28 13:19:00 37 Silvina [facility] Respiratory rate 2019-12-28 13:19:00 18 /min [facility] Body height 2019-12-28 13:19:00 165.1 cm [facility] Body weight 2019-12-28 13:19:00 112.492 kg [facility] BMI 2019-12-28 13:19:00 41.27 kg/m2 [facility] Systolic blood 2019-12-13 22:23:00 111 mm[Hg] [facility] Diastolic blood 2019-12-13 22:23:00 69 mm[Hg] [facility] Heart rate 2019-12-13 22:23:00 79 /min [facility] Body temperature 2019-12-13 22:23:00 36.83 Silvina [facility] Respiratory rate 2019-12-13 22:23:00 18 /min [facility] Body height 2019-12-13 22:23:00 165.1 cm [facility] Body weight 2019-12-13 22:23:00 110.678 kg [facility] BMI 2019-12-13 22:23:00 40.60 kg/m2 [facility] Systolic blood 2019-12-03 19:12:00 113 mm[Hg] [facility] Diastolic blood 2019-12-03 19:12:00 68 mm[Hg] [facility] Heart rate 2019-12-03 19:12:00 89 /min [facility] Body temperature 2019-12-03 19:12:00 36.83 Silvina [facility] Respiratory rate 2019-12-03 19:12:00 18 /min [facility] Body height 2019-12-03 19:12:00 165.1 cm [facility] Body weight 2019-12-03 19:12:00 111.131 kg [facility] BMI 2019-12-03 19:12:00 40.77 kg/m2 [facility] Systolic blood 2019-11-05 20:31:00 110 mm[Hg] [facility] Diastolic blood 2019-11-05 20:31:00 73 mm[Hg] [facility] Heart rate 2019-11-05 20:31:00 89 /min [facility] Body temperature 2019-11-05 20:31:00 36.72 Silvina [facility] Respiratory rate 2019-11-05 20:31:00 18 /min [facility] Body height 2019-11-05 20:31:00 165.1 cm [facility] Body weight 2019-11-05 20:31:00 108.41 kg [facility] BMI 2019-11-05 20:31:00 39.77 kg/m2 [facility] Systolic blood 2019-11-03 20:47:00 127 mm[Hg] [facility] Diastolic blood 2019-11-03 20:47:00 72 mm[Hg] [facility]ive [facility] Body temperature 2019-11-03 20:45:30 36.78 Silvina [facility] Respiratory rate 2019-11-03 20:45:30 19 /min [facility] Heart rate 2019-11-03 20:44:00 94 /min [facility] Oxygen saturation in 2019-11-03 20:44:00 100 /min University of Arterial blood by [employer] [facility] Pulse oximetry Branch Heart rate 2019-11-01 14:47:00 85 /min [facility] Systolic blood 2019-11-01 14:32:00 112 mm[Hg] Univer [facility] Diastolic blood 2019-11-01 14:32:00 66 mm[Hg] [facility]ive rs[facility] Body temperature 2019-11-01 14:32:00 36.78 Silvina [facility] Respiratory rate 2019-11-01 14:32:00 18 /min [facility] Body height 2019-11-01 14:32:00 165.1 cm [facility] Body weight 2019-11-01 14:32:00 107.775 kg [facility] BMI 2019-11-01 14:32:00 39.54 kg/m2 [facility] Oxygen saturation in 2019-11-01 14:32:00 100 /min [facility] Arterial blood by [employer] johnny Pulse oximetry Branch Systolic blood 2019-06-15 15:15:00 109 mm[Hg] [facility] Diastolic blood 2019-06-15 15:15:00 70 mm[Hg] Unive rsity of pressure [facility] Heart rate 2019-06-15 15:15:00 63 /min [facility] Body temperature 2019-06-15 15:15:00 37.06 Silvina [facility] Respiratory rate 2019-06-15 15:15:00 18 /min [facility] Body height 2019-06-15 15:15:00 165.1 cm [facility] Body weight 2019-06-15 15:15:00 104.962 kg [facility] BMI 2019-06-15 15:15:00 38.51 kg/m2 [facility] Procedures Procedure Date / Time Performing Clinician Source Performed POCT TEST 2022-01-25 15:16:00 Nydia Russ [facility] POCT TEST 2021-07-30 01:21:00 Elen Joseph [facility] POCT GRP A STREP 2021-07-14 22:29:00 Leonor Mueller [facility] (MOLECULAR) [facility] ASSIGNMENT OF BENEFITS 2021-06-20 17:17:03 [facility] CHLAMYDIA AMPLIFIED 2021-04-12 19:33:00 Jerod Angelo [facility] US PELVIS COMPLETE WITH 2020-10-07 01:17:40 Christiano Angeles [facility] TRANSVAGINAL [facility] CONSENT/REFUSAL FOR 2020-10-07 00:50:04 Doctor Ramy [facility] DIAGNOSIS AND TREATMENT [facility] SCANNED LAB RESULTS 2020-10-01 06:01:00 Doctor Ramy [facility] MEDICATION CORRESPONDENCE 2020-04-02 05:01:00 Doctor Mccann [facility] Name [facility] CBC WITH DIFFERENTIAL 2020-02-01 09:48:00 Josette Cheung [facility] VENOUS CORD GAS 2020-01-31 05:42:00 Josette Cheung [place] [facility] NON-STRESS TEST 2020-01-30 19:36:27 Josette Cheung [facility] HIV 1/2 AG-AB WITH REFLEX 2020-01-30 18:56:00 [facility] DIFFERENTIAL 2020-01-30 18:53:00 Jonatan Josettechristopher Pereyra [facility] HEPATITIS B SURFACE 2020-01-30 18:53:00 Jonatan Josettechristopher Pereyra [facility] ANTIGEN [facility] ADC OR MARK ONLY - RPR 2020-01-30 18:53:00 [facility] HB ABO GROUPING 2020-01-30 18:45:00 Jonatan Josette Leti [place] [facility] RHO (D) IMMUNE GLOBULIN 2020-01-30 18:45:00 Jonatan Josettechristopher Pereyra [facility] CORONAVIRUS COVID-19 2020-01-30 17:37:00 Jonatan Josettechristopher Pereyra [facility] TESTING [facility] ASSIGNMENT OF BENEFITS 2020-01-30 17:10:32 Doctor Unassigned, Un [facility] Name [facility] [place] POCT URINALYSIS W/O 2020-01-30 00:00:00 Jonatan [facility]christ[facility] SPECIFIC GRAVITY [facility] POCT URINALYSIS W/O 2020-01-24 00:00:00 Christiano Angeles [facility] SPECIFIC GRAVITY [facility] URINALYSIS 2020-01-23 17:12:00 Jonatan Josettechristopher Pereyra [place] [facility] ADC ONLY - FERN TEST 2020-01-23 17:12:00 Jonatan Josette Leti [facility] NON-STRESS TEST 2020-01-16 21:34:12 Jonatan Josettechristopher Pereyra [facility] CBC WITH DIFFERENTIAL 2020-01-16 20:35:00 Jonatan Josette Leti [facility] ASSIGNMENT OF BENEFITS 2020-01-16 20:24:24 Doctor Unassigned, Un [facility] Name [facility] POCT URINALYSIS W/O 2020-01-16 00:00:00 Josette Cheung [facility] SPECIFIC GRAVITY [facility] SECOND AND THIRD 2020-01-08 15:30:00 Josette Cheung [facility] TRIMESTER ULTRASOUND [facility] POCT URINALYSIS W/O 2019-12-28 00:00:00 Christiano Angeles [facility] SPECIFIC GRAVITY [facility] [place] DME/SUPPLY JUSTIFICATION 2019-12-25 05:01:00 Doctor Mccann [facility] POCT URINALYSIS W/O 2019-12-13 00:00:00 Josette Cheung [facility] TDAP (ADACEL) 2019-12-03 19:15:08 Bridgette Christiano [facility] IMMUNIZATION [facility] DME/SUPPLY JUSTIFICATION 2019-12-03 06:01:00 Doctor Mccann [facility] Name [facility] [place] GLUCOSE 1 HOUR POST 2019-11-19 15:53:00 Josette Cheung [facility] PRANDIAL [facility] HB ABO GROUPING 2019-11-19 15:53:00 Josette Cheung [facility] ADC OR MARK ONLY - RPR 2019-11-19 15:53:00 [facility] HIV 1/2 AG-AB WITH REFLEX 2019-11-19 15:53:00 [facility] CBC WITH DIFFERENTIAL 2019-11-19 15:36:00 Josette Cheung [facility] CONSENT/REFUSAL FOR 2019-11-19 14:42:18 Doctor Ramy [facility] DIAGNOSIS AND TREATMENT [facility] ASSIGNMENT OF BENEFITS 2019-11-19 14:42:08 [facility] URINALYSIS 2019-11-03 21:00:00 Trevor John [facility] NOTICE OF PRIVACY 2019-11-03 20:12:21 Doctor Ramy, [facility] PRACTICES [facility] CONSENT/REFUSAL FOR 2019-11-03 20:12:10 Doctor Ramy, [facility] DIAGNOSIS AND TREATMENT [facility] ASSIGNMENT OF BENEFITS 2019-11-01 13:48:54 [facility] CONSENT/REFUSAL FOR 2019-11-01 13:48:43 Doctor Mccann [facility] DIAGNOSIS AND TREATMENT [facility] L&D VISIT (NON-DELIVERED) 2019-10-07 06:01:00 Doctor Mccann [facility] POCT TEST 2019-06-15 15:30:00 Misty Mckay [facility] ASSIGNMENT OF BENEFITS 2019-06-15 14:37:45 Doctor Unassigned, Un [facility] Name [facility] Knee wo contrast [id number] 2018-08-25 00:00:00 [facility] US Extremity lower venous 2018-08-25 00:00:[address] [facility] doppler bilat [id number] Physicians Plan of Care Planned Activity Planned Date Details Comments Source Encounters Start End Encounter Admission Attending Care Care Encounter Source Date/Time Date/Time Type Type Clinicians Facility Department ID 2021-11-04 Out[facility] [place] [id number] [facility] 13:55:18 Fernandez [id number] [facility] 2021-11-04 Out[facility], [facility] [id number] 13:10:23 Fernandez [id number] [facility] 2021-11-04 Out[facility], [facility] [id number] 12:57:22 Fernandez [id number] [facility] 2021-11-04 Out[facility] Lang[facility], [facility] [id number] 12:25:15 Fernandez 11626 [facility] 2021-11-04 Outpatient [place], [facility]ML[facility] [id number] 12:13:17 Fernandez [id number] [facility] 2021-11-04 Outpatient [place], [facility]MLC [facility] [id number] 12:00:49 Fernandez [id number] [facility] 2021-11-04 Outpatient Langford, STLC [facility] [id number] 11:54:10 Fernandez [id number] [facility] 2021-11-04 Outpatient Langford, STLC [facility] [id number] 11:51:45 Fernandez [id number] [facility] 2021-08-11 Emergency [facility] [id number] [facility] 2021-08-10 Emergency [facility] [id number] Univers 22:05:53 ity of [facility] 2021-08-06 Outpatient P [facility] [place] [id number] Univers 18:42:34 ity of [facility] 2021-08-06 Outpatient P [facility] [id number] Univers 18:05:33 ity of [facility] 2021-08-06 Outpatient P [facility] [id number] Univers 18:04:[facility] 2022-01-25 2022-01-25 [employer] Work[employer] Lab, Ang - Db [facility] [id number] Univers 10:30:00 10:45:00 [facility] [id number] ity of [place] [id number] Bryn as DANTE?BLEA [phone] [address] MEDICAL OFFICE [facility] 2022-01-25 2022-01-25 Outpatient R [facility] [id number] Univers 10:30:00 10:30:00 [id number] ity [facility] 2022-01-25 2022-01-25 Outpatient R [facility] [id number] Univers 10:30:00 10:30:00 [facility] o f [facility] 2022-01-25 2022-01-[address] [facility] [id number] Univers 10:00:00 10:09:56 Care [facility] [id number] i ty of [place] [id number] Rbyn as DANTE?BLEA [id number] [address] MEDICAL OFFICE BUILDING 2022-01-12 2022-01-12 ambulatory [facility]LMLC [facility] [id number] [facility] 2022-01-11 2022-01-11 ambulatory [facility]LMLC [facility] [id number] [facility] 2021-12-18 2021-12-18 Outpatient R [facility] [id number] Univers 18:00:00 18:00:00 [id number] [facility] 2021-12-18 2021-12-18 Outpatient R JACQUELINE [facility] [id number] Univers 18:00:00 18:00:00 NYDIA rod o f [facility] 2021-10-22 2021-10-22 Outpatient Lila DELEON [facility] [id number] Univers 11:00:00 11:00:00 EZRA [id number] [facility] 2021-10-22 2021-10-22 [facility] [id number] Univers 11:00:00 11:00:00 EZRA [facility] 2021-10-22 2021-10-22 [facility] [id number] Univers 00:00:00 00:00:00 Sydnie HEALTH [id number] it y of [place] [id number] Bryn as DANTE?BLEA [phone] [address] MEDICAL OFFICE [facility] 2021-10-15 2021-10-15 [facility] [id number] Univers 11:40:00 13:06:17 [facility] 2021-10-15 2021-10-15 [facility] [id number] Univers 11:40:00 12:00:00 [facility] [id number] it y of [place] [id number] Bryn as DANTE?BLEA [phone] [address] MEDICAL OFFICE [facility] 2021-10-15 2021-10-15 [facility] [id number] Univers 11:40:00 11:40:00 SYDNIE [id number] [facility] 2021-10-14 2021-10-14 Outpatient [facility] [id number] Univers 11:45:00 11:45:00 [id number] [facility] 2021-10-12 2021-10-12 ambulatory [facility]LMLC [facility] [id number] [facility]00 [facility] 2021-10-12 2021-10-12 ambulatory [facility] [id number] [facility] 00:00:00 [facility] l Outpati ent Clinics 2021-09-10 2021-09-10 [facility] [id number] Univers 00:00:00 00:00:00 [facility] [id number] it y of [place] [id number] Bryn as DANTE?BLEA [id number] [facility] [address] [facility] OFFICE [facility] 2021-07-30 2021-07-30 Telephone Josette Cheung [facility] [id number] Univers 00:00:00 00:00:00 [place] [id number] i ty of [id number] [place] [facility] [id number] [place] dic[place]al [address] [facility] 2021-07-29 2021-07-29 Emergency [facility] [id number] Univers 19:42:00 21:40:00 Elen Roman [place] [id number] [place] of [id number] [phone] [facility] [address] [place] [address] 2021-07-19 2021-07-19 [facility] [id number] Univers 00:00:00 00:00:00 [facility] [id number] i ty of [place] [id number] Bryn as Dante?Blea [id number] [place] dic[address] Office [facility] 2021-07-14 2021-07-[address] [facility] [id number] Univers 17:18:01 17:47:01 Care [facility] [id number] i ty of [place] [id number] Bryn as Dante?Blea [phone] [address] Office [facility] 2021-07-14 2021-07-14 [facility] [id number] Univers 17:40:00 17:40:00 NYDIA cullen [facility] 2021-07-14 2021-07-14 Outpatient [facility] [id number] Univers 10:00:00 10:00:00 [id number] [facility] 2021-07-14 2021-07-14 [facility] [id number] Univers 10:00:00 10:00:00 NYDIA cullen [facility] 2021-07-10 2021-07-10 Outpatient STLMLC [facility]LMLC [id number] [facility] Apoorva [facility] 2021-07-03 2021-07-03 Outpatient [facility] [id number] -[id number] Univers 15:00:00 15:00:00 ELLE [id number] [facility] 2021-07-03 2021-07-03 Outpatient [facility] [id number] Univers 15:00:00 15:00:00 ELLE [facility] 2021-06-30 2021-06-30 Office [facility] 1.2.840.114 [id number] Univers 11:55:40 12:25:40 Visit Elle STAFFORD 350.1.13.10 i ty [facility] [place].2.[place] [phone] [address] 2021-06-30 2021-06-30 Outpatient [facility] [id number] -[id number] Univers 09:00:00 09:00:00 [id number] [facility] 2021-06-30 2021-06-30 Outpatient [facility] [id number] Univers 09:00:00 09:00:00 LEONOR [facility] 2021-06-22 2021-06-22 Letter POPPY Mireles 1.2.840.114 [id number] Univers 00:00:00 00:00:00 (Out) [place] YEE 350.1.13.10 it y [facility] 4.2.7.2.686 [place] [phone] [facility] [address] 2021-06-21 2021-06-21 [facility] 1.2.840.114 [id number] Univers 15:13:00 16:17:00 Shanika [place] 350.1.13.10 it[place] [phone] [facility] [address] 2021-06-20 2021-06-20 Outpatient [facility] [id number] -[id number] Univers 12:20:00 12:20:00 [id number] ity [facility] 2021-06-20 2021-06-20 Outpatient [facility] [id number] Univers 12:20:00 12:20:00 SYDNIE ity [facility] 2021-06-20 2021-06-20 Orders Doctor MCWILLIAMS 1.2.840.114 [id number] Univers 00:00:00 00:00:00 Only Unassigned, JOSELITO 350.1.13.10 ity of [place] [facility] 4.2.7.2.686 [place] [phone] [facility] [address] 2021-06-13 2021-06-13 Outpatient [facility] [id number] -[id number] Univers 17:45:00 17:45:00 [id number] ity [facility] 2021-06-13 2021-06-13 Outpatient Lila RUSS, [facility] [id number] Univers 17:45:00 17:45:00 NYDIA rod o f [facility] 2021-04-14 2021-04-14 Outpatient Lila ANGELES, [facility] [id number] 5N-20 Univers 08:30:00 08:30:00 CHRISTIANO [id number] ity [facility] 2021-04-14 2021-04-14 Outpatient Lila ANGELES, [facility] [id number] Univers 08:30:00 08:30:00 CHRISTIANO ity [facility] 2021-04-13 2021-04-13 [facility] 1.2.840.114 [id number] Univers 00:00:00 00:00:00 [facility] 350.1.13.10 it y of [place] 4.2.7.2.686 [place] Professio [phone] [place] dical nal [address] [place] [address] 2021-04-12 2021-04-12 Urgent Provider, [facility] 1.2.840.114 [id number] Univers 12:00:26 13:54:05 Care Krysta Low [facility] 350.1.13.10 ity of [place] 4.2.7.2.686 [place] Professio [phone] [place] dical nal 044 [facility] [address] [facility] 2021-04-12 2021-04-12 Outpatient [facility] [id number] -[id number] Univers 12:00:00 12:00:00 [id number] [facility] 2021-04-12 2021-04-12 Outpatient [facility] [id number] Univers 12:00:00 12:00:00 KRYSTA marcel o f [facility] 2021-04-09 2021-04-09 [facility] [id number] [facility] 2021-03-18 2021-03-18 Outpatient [facility] [id number] [id number]-20 Univers 15:30:00 15:30:00 CHRISTIANO [id number] [facility] 2021-03-18 2021-03-18 Outpatient STLC STLC [id number] [facility] 2021-03-11 2021-03-11 Outpatient STLC STLC [id number] [facility] 2021-03-05 2021-03-05 Outpatient STLC STLC [id number] [facility] 2021-02-04 2021-02-04 Outpatient STLMLC STLC [id number] [facility] 2021-01-052021-01-05 Outpatient [facility] [id number] [facility] St 00:00:00 00:00:00 [facility] 2020-12-30 2020-12-30 Patient [facility] 1.2.840.114 [id number] Univers 00:00:00 00:00:00 Out[facility] 350.1.13.10 i ty of [facility] 4.2.7.2.686 [place] [phone] [address] 2020-11-04 2020-11-04 [facility] [id number] 2020-11-03 2020-11-03 Outpatient [facility] [id number] [facility] St 00:00:00 00:00:00 [facility] 2020-10-16 2020-10-16 Outpatient R [facility] [id number] -[id number] Univers 13:00:00 13:00:00 [id number] ity [facility] 2020-10-15 2020-10-15 Telephone [facility] 1.2.840.114 [id number] [facility] 00:00:00 00:00:00 Christiano Zuleta 350.1.13.10 i ty of [place] 4[place].7.2.[place] [phone] N[place] dic[address] 2020-10-15 2020-10-15 Telephone [facility] 1.2.840.114 [id number] 00:00:00 00:00:00 Christiano Zuleta 350.1.13.10 [place] 4.2.7.2.686 Professio [phone] [address] 2020-10-14 2020-10-14 Telephone [facility] 1.2.840.114 [id number] [facility] 00:00:00 00:00:00 Christiano Zuleta 350.1.13.10 i ty of [place].2.[place] [phone] Nc dic[address] 2020-10-14 2020-10-14 [facility] 1.2.814.284 [id number] Univers 00:00:00 00:00:00 Management Christiano Zuleta 350.1.13.10 ity of [place] 4.2.7.2.686 [facility] Professio [phone] Nc dical [address] 2020-10-14 2020-10-14 [facility] 1.2.999.541 [id number] 00:00:00 00:00:00 Management Christiano Zuleta 350.1.13.10 [place] 4.2.7.2.686 Professio [phone] [address] 2020-10-14 2020-10-14 [place] [facility] 1.2.840.114 [id number] 00:00:00 00:00:00 Christiano [place] 350.1.13.10 [place] 4.2.7.2.686 Professio [phone] [address] 2020-10-06 2020-10-[address] [facility] 1.2.840.114 [id number] Univers 18:51:56 23:59:00 Encounter Christiano [place] 350.1.13.10 ity of [place] 4.2.7.2.686 [facility] [phone] [address] 2020-10-06 2020-10-[address] [facility] 1.2.840.114 [id number] 18:51:56 23:59:00 Encounter Christianohector [place] 350.1.13.10 [place] 4.2.7.2.686 [place] [phone] [facility] 2020-10-06 2020-10-06 Outpatient [facility] [id number] [id number]-20 Univers 00:00:00 00:00:00 [facility]IANO [id number] [facility] 2020-10-06 2020-10-06 Outpatient [facility] [id number] Univers 00:00:00 00:00:00 CHRISTIANO [facility] 2020-10-06 2020-10-06 Orders Doctor MCWILLIAMS 1.2.840.114 [id number] Univers 00:00:00 00:00:00 Only Unassigned, JOSELITO 350.1.13.10 ity of [place] [facility] 4.2.7.2.686 [place] [phone] [address] 2020-10-06 2020-10-06 Orders Doctor POPPY 1.2.840.114 [id number] 00:00:00 00:00:00 Only Unassigned, JOSELITO 350.1.13.10 [place] [facility] 4.2.7.2.686 [phone] [facility] 2020-10-01 2020-10-01 Orders Doctor POPPY 1.2.840.114 [id number] Univers 00:00:00 00:00:00 Only Unassigned, JOSELITO 350.1.13.10 ity of [place] [facility] 4.2.7.2.686 [place] [phone] [address] 2020-10-01 2020-10-01 Orders Doctor MCWILLIAMS 1.2.840.114 [id number] 00:00:00 00:00:00 Only Unassigned, JOSELITO 350.1.13.10 [place] [facility] 4.2.7.2.686 [phone] [facility] 2020-09-30 2020-09-30 Office Christiano Angeles [facility] 1.2.840.11 [id number] [facility] 10:09:30 11:23:11 Visit Kimberlyn Sr 350.1.13.10 it[place] of [place].2.[place] [phone] Nc dical [address] 2020-09-30 2020-09-30 Office [facility] 1.2.782.155 [id number] 10:09:30 11:23:11 Visit Christiano Zuleta 350.1.13.10 [place] 4.2.7.2.686 Professio [phone] [address] 2020-09-30 2020-09-30 Outpatient [facility] [id number] -[id number] Univers 10:00:00 10:00:00 KIMBERLYN [id number] ity of [facility] 2020-09-30 2020-09-30 Outpatient R [facility] [id number] 135 [facility] 10:00:00 10:00:00 KIMBERLYN [facility] 2020-09-25 2020-09-25 Outpatient STLMLC STLC [id number] [facility] 2020-09-23 2020-09-23 Outpatient STLMLC STLC [id number] [facility] 2020-09-23 2020-09-23 Outpatient STLMLC STLC [id number] [facility] 2020-09-18 2020-09-18 [facility] [id number] [id number]-20 Univers 09:00:00 09:00:00 CHRISTIANO [id number] [facility] 2020-09-18 2020-09-18 Outpatient [facility] [id number] Univers 09:00:00 09:00:00 CHRISTIANO [facility] 2020-09-18 2020-09-18 Outpatient STLMLC STLC [id number] [facility] 2020-09-03 2020-09-03 Outpatient STLMLC STLC [id number] [facility] 2020-09-02 2020-09-02 Outpatient STLMLC STLC [id number] [facility] 2020-09-02 2020-09-02 Outpatient STLMLC STLC [id number] [facility] 2020-07-21 2020-07-21 Outpatient STLMLC STLC [id number] [facility]00 [facility] 2020-07-07 2020-07-07 Z[facility]CR[facility] 1.2.569.875 [id number] Univers 00:00:00 00:00:00 Christiano Zuleta 350.1.13.10 i [place].2.[place] [phone] N[place] dical [place]al [address] [place] [address] 2020-07-02 2020-07-02 Refill Bridgette [facility] 1.2.472.787 [id number] Univers 00:00:00 00:00:00 Christiano Zuleta 350.1.13.10 i [place] of [place] 4[place].2.[place] [phone] [facility] nal [address] [place] [address] 2020-06-30 2020-06-30 Refill Josette Cheung [facility] 1.2.009.377 [id number] Univers 00:00:00 00:00:00 Cam [place] 350.1.13.10 i ty of [place] 4[place]2.7.2.686 [place] [phone] N[place] dical nal [address] [place] [address] 2020-06-27 2020-06-27 Refill Josette Cheung [facility] 1.2.812.486 [id number] Univers 00:00:00 00:00:00 Cam Song 350.1.13.10 i ty of [place] 4[place].7.2.[place] [phone] [address] 2020-06-27 2020-06-27 Refill Josette Cheung [facility] 1.2.029.432 [id number] Univers 00:00:00 00:00:00 Cam Song 350.1.13.10 i ty of [place] 4[place]2.7.2.[place] [phone] [address] 2020-06-11 2020-06-11 Office Bridgette OHALYSHA 1.2.160.085 [id number] Univers 10:02:40 10:54:19 Visit Christiano Zuleta 350.1.13.10 i [place] of [place] 4[place].7.2.[place] [phone] [address] 2020-06-11 2020-06-11 Outpatient R BRIDGETTE [facility] [id number] 5N-20 Univers 09:45:00 09:45:00 [facility]IANO [id number] [facility] 2020-06-11 2020-06-11 Outpatient Lila ANGELES [facility] [id number] Univers 09:45:00 09:45:00 [facility] 2020-06-09 2020-06-09 Telephone Josette Cheung [facility] 1.2.840.114 [id number] Univers 00:00:00 00:00:00 Leti Zuleta 350.1.13.10 i ty of [place] 4[place]2.7.2.[place] [phone] [address] 2020-04-02 2020-04-02 Orders Doctor POPPY 1.2.840.114 [id number] Univers 00:00:00 00:00:00 Only Unassigned, JOSELITO 350.1.13.10 ity of [facility] 4.2.7.2.686 [place]n as [phone] [address] 2020-03-27 2020-03-27 [facility] 1.2.235.026 [id number] Univers 00:00:00 00:00:00 Christiano Zuleta 350.1.13.10 i ty of [place].2.[place] [phone] [address] 2020-02-29 2020-02-29 Outpatient Lila ANGELES [facility] [id number] 5N-20 Univers 15:30:00 15:30:00 CHRISTIANO [id number] [facility] 2020-02-29 2020-02-29 Outpatient Lila ANGELES [facility] [id number] Univers 15:30:00 15:30:00 CHRISTIANO [facility] 2020-02-29 2020-02-29 Telemedici [facility] 1.2.840.114 [id number] Univers 09:13:27 09:28:27 ne Visit Christiano Zuleta 350.1.13.10 it[place] of [place] 4[place].2.[place] [phone] [address] 2020-02-27 2020-02-27 Outpatient R BRIDGETTE [facility] [id number] 5N-20 Univers 11:00:00 11:00:00 CHRISTIANO [id number] ity [facility] 2020-02-27 2020-02-27 Outpatient R BRIDGETTE [facility] [id number] Univers 11:00:00 11:00:00 CHRISTIANO ity [facility] 2020-02-07 2020-02-07 Patient Josette Cheung [facility] 1.2.615.768 [id number] Univers 00:00:00 00:00:00 Secure Msg Cam [place] 350.1.13.10 ity of [place] 4.[place].2.[place] [phone] N[place] dical nal [address] [place] [address] 2020-01-30 2020-02-01 Hospital Josette Cheung [facility] 1.2.840.114 [id number] Univers 12:12:00 13:05:00 Encounter Cam [place] 350.1.13.10 ity of [place] 4.2.7.2.686 [place] [phone] [address] 2020-02-01 2020-02-01 Outpatient R [facility] [id number] -[id number] Univers 10:00:00 10:00:00 [id number] ity [facility] 2020-02-01 2020-02-01 Outpatient R [facility]AN [facility] [id number] Univers 10:00:00 10:00:00 ity of [facility] 2020-01-30 2020-01-30 Outpatient R [facility]AN [facility] [id number] 5N-20 Univers 16:00:00 16:00:00 [id number] ity of [facility] 2020-01-30 2020-01-30 Outpatient R J[facility]AN [facility] [id number] Univers 16:00:00 16:00:00 ity of [facility] 2020-01-30 2020-01-30 Routine Jonatan [facility] 1.2.360.143 [id number] Univers 09:01:54 10:12:03 Cam [place] 350.1.13.10 ity of [place] 4.2.7.2.[place] [phone] Nc dical nal [address] [place] [address] 2020-01-30 2020-01-30 Outpatient R [facility]AN [facility] [id number] Univers 09:30:00 09:30:00 ity of [facility] 2020-01-30 2020-01-30 Orders Doctor POPPY 1.2.840.114 [id number] Univers 00:00:00 00:00:00 Only Unassigned, JOSELITO 350.1.13.10 ity of [place] [facility] 4.2.7.2.686 Bryn as [phone] [address] 2020-01-29 2020-01-29 Patient Josette Cheung [facility] 1.2.111.280 [id number] Univers 00:00:00 00:00:00 Secure Msg Cam [place] 350.1.13.10 ity of [place] 4.2.[place].2.[place] [phone] Nc dic[address] 2020-01-28 2020-01-28 Telephone Josette Cheung [facility] 1.2.840.114 [id number] Univers 00:00:00 00:00:00 Cam [place] 350.1.13.10 i ty of [place] 4.2.7.2.[place] [phone] Nc dical nal [address] [place] [address] 2020-01-28 2020-01-28 Patient Josette Cheung [facility] 1.2.166.423 [id number] Univers 00:00:00 00:00:00 Secure Msg Cam [place] 350.1.13.10 ity of [place] 4.2.7.2.[place] [phone] Nc dical nal [address] [place] [address] 2020-01-25 2020-01-25 Telephone Josette Cheung [facility] 1.2.840.114 [id number] Univers 00:00:00 00:00:00 Cam [place] 350.1.13.10 i ty of [place] 4.2.7.2.[place] [phone] Nc dical nal [address] [place] [address] 2020-01-25 2020-01-25 Patient Josette Cheung [facility] 1.2.903.750 [id number] Univers 00:00:00 00:00:00 Secure Msg Cam [place] 350.1.13.10 ity of [place] 4.2.7.2.[place] [phone] Nc dical nal [address] [place] [address] 2020-01-24 2020-01-24 Routine [facility] 1.2.565.663 [id number] Univers 13:56:43 14:11:43 Christiano [place] 350.1.13.10 ity of [place] 4.2.7.2.[place] [phone] [address] 2020-01-24 2020-01-24 Outpatient R BRIDGETTE [facility] [id number] 5N-20 Univers 13:45:00 13:45:00 CHRISTIANO [id number] ity [facility] 2020-01-24 2020-01-24 Outpatient R BRIDGETTE [facility] [id number] Univers 13:45:00 13:45:00 CHRISTIANO ity [facility] 2020-01-23 2020-01-23 Hospital Josette Cheung [facility] 1.2.840.114 [id number] Univers 11:39:00 13:10:00 Encounter Cam [place] 350.1.13.10 ity of [place] 4[place].2.686 [place] [phone] [address] 2020-01-17 2020-01-17 Patient Josette Cheung [facility] 1.2.214.543 [id number] Univers 00:00:00 00:00:00 Secure Msg Cam [place] 350.1.13.10 ity of [place] 4.2.[place].2.[place] [phone] Nc dic[address] 2020-01-16 2020-01-16 Routine Josette Cheung [facility] 1.2.051.555 [id number] Univers 15:23:25 16:32:56 Cam [place] 350.1.13.10 ity of Visit [place] 4.2.7.2.[place] [phone] Nc dicla nal [address] [place] [address] 2020-01-16 2020-01-16 Outpatient R JOSETTE CHEUNG [facility] [id number] 5N-20 Univers 15:45:00 15:45:00 [id number] ity [facility] 2020-01-16 2020-01-16 Outpatient R JOSETTE CHEUNG [facility] [id number] Univers 15:45:00 15:45:00 ity of [facility] 2020-01-16 2020-01-16 [employer]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, 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 [facility] 1.2.840.114 [id number] Univers 15:26:06 15:41:06 Visit Josette Cheung [place] 350.1.13.10 it[place] of [place] 4.2.[place].2.[place] [phone] Nc dical nal [address] [facility] 2020-01-16 2020-01-16 Orders Doctor POPPY 1.2.840.114 [id number] Univers 00:00:00 00:00:00 Only Unassigned, JOSELITO 350.1.13.10 ity of [facility] 4.2.7.2.686 Bryn as [phone] [address] 2020-01-08 2020-01-10 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 4.2.7.2.686 Bryn as MATERNAL [phone] Med ical & CHILD [address] [place] [address] 2020-01-09 2020-01-09 Patient Josette Cheung [facility] 1.2.860.532 [id number] Univers 00:00:00 00:00:00 Secure Msg Pereyra [place] 350.1.13.10 ity of [place] 4.2.7.2.[place] [phone] Nc dical [facility] [address] [facility] 2020-01-08 2020-01-08 Outpatient R [facility] [id number] -[id number] Univers 10:00:00 10:00:00 [id number] ity of [facility] 2020-01-08 2020-01-08 Outpatient P [facility] [id number] Univers 10:00:00 10:00:00 ity of [facility] 2019-12-28 2019-12-28 Outpatient R BRIDGETTE [facility] [id number] 5N-20 Univers 08:45:00 08:45:00 [facility] 2019-12-28 2019-12-28 Outpatient R BRIDGETTE [facility] [id number] Univers 08:45:00 08:45:00 [facility] 2019-12-28 2019-12-28 [facility] 1.2.328.902 [id number] Univers 08:07:16 08:42:05 Christiano Zuleta 350.1.13.10 ity of [place].2.[place] [phone] [address] 2019-12-27 2019-12-27 Outpatient R BRIDGETTE [facility] [id number] 5N-20 Univers 13:45:00 13:45:00 [facility]O [id number] [facility] 2019-12-27 2019-12-27 Outpatient R BRIDGETTE [facility] [id number] Univers 13:45:00 13:45:00 [facility] 2019-12-25 2019-12-25 Telephone [facility] 1.2.840.114 [id number] Univers 00:00:00 00:00:00 Christiano Zuleta 350.1.13.10 i ty [place].2.[place] [phone] [address] 2019-12-25 2019-12-25 Orders Doctor POPPY 1.2.840.114 [id number] Univers 00:00:00 00:00:00 Only Unassigned, JOSELITO 350.1.13.10 ity of [place] [facility] 4.2.7.2.686 Bryn as [phone] [address] 2019-12-13 2019-12-13 Routine Josette Cheung [facility] 1.2.394.860 [id number] Univers 15:56:59 16:41:05 Leti Zuleta 350.1.13.10 ity of [place] 4[place].2.[place] [phone] [address] 2019-12-13 2019-12-13 Outpatient R JOSETTE CHEUNG [facility] [id number] Univers 16:00:00 16:00:00 ity of [facility] 2019-12-13 2019-12-13 Outpatient R DEB CHEUNGEN [facility] [id number] 5N-20 Univers 13:15:00 13:15:00 ity of [facility] 2019-12-13 2019-12-13 Outpatient R DEB CHEUNGEN [facility] [id number] Univers 13:15:00 13:15:00 ity [facility] 2019-12-03 2019-12-03 Outpatient R BRIDGETTE [facility] [id number] Univers 13:30:00 13:30:00 [facility] 2019-12-03 2019-12-03 [facility] 1.2.427.967 [id number] Univers 12:34:57 13:27:03 Christiano Zuleta 350.1.13.10 it[place] [phone] [place] dic[address] 2019-12-03 2019-12-03 Orders Doctor POPPY 1.2.840.114 [id number] Univers 00:00:00 00:00:00 Only Unassigned, JOSELITO 350.1.13.10 ity of [place] [facility] 4.2.7.2.686 [place] [phone] [address] 2019-11-30 2019-11-30 Telephone Deb Cheungen [facility] 1.2.840.114 [id number] Univers 00:00:00 00:00:00 Leti Zuleta 350.1.13.10 i [place] [phone] [place] [address] [place] [address] 2019-11-27 2019-11-27 Refill CheungDeben [facility] 1.2.964.230 [id number] Univers 00:00:00 00:00:00 Cam Song 350.1.13.10 [place] [phone] [place] dical [address] 2019-11-20 2019-11-20 Patient Jonatan Josette [facility] 1.2.507.619 [id number] Univers 00:00:00 00:00:00 Secure Msg Leti Zuleta 350.1.13.10 it[place] [phone] [place]ical [place] [address] [facility] 2019-11-20 2019-11-20 Patient Josette Cheung [place] 1.2.968.841 [id number] Univers 00:00:00 00:00:00 Secure Msg Leti Zuleta 350.1.13.10 it[place] [phone] [place]ical [place] [address] [facility] 2019-11-19 2019-11-19 [employer] Work[employer] [place], [place] [facility] 1.2.8 40.114 [id number] Univers 08:42:18 08:57:18 Visit Josette Cheung [place] 350.1.13.10 ity [place] [phone] [place] dical nal [address] [facility] 2019-11-19 2019-11-19 Orders Doctor POPPY 1.2.840.114 [id number] Univers 00:00:00 00:00:00 Only Unassigned, JOSELITO 350.1.13.10 ity of [place] [facility] 4.2.7.2.686 Bryn as [phone] [facility] [address] [place] 2019-11-05 2019-11-05 Routine Josette Cheung [facility] 1.2.733.766 [id number] Univers 13:21:14 15:07:44 Leti Zuleta 350.1.13.10 ity of [place] [phone] [place] [address] [facility] 2019-11-03 2019-11-03 Emergency [facility] 1.2.629.238 [id number] Univers 14:43:22 15:52:00 Trevor Zuleta 350.1.13.10 i [place] [phone] [facility] [address] 2019-11-03 2019-11-03 Orders Doctor POPPY 1.2.840.114 [id number] Univers 00:00:00 00:00:00 Only Unassigned, JOSELITO 350.1.13.10 ity of [facility] 4.2.7.2.686 [place] [phone] [address] 2019-11-02 2019-11-02 Refill Josette Cheung [place] [id number] Univers 00:00:00 00:00:00 Leti Zuleta 350.1.13.10 i [place] [phone] [place] [facility] 2019-11-01 2019-11-01 Hospital Josette Cheung [facility] 1.2.840.114 [id number] Univers 07:51:13 09:15:00 Encounter Gabino Alvarez 350.1.1 3.10 it[place] of [place] [phone] [facility] [address] 2019-11-01 2019-11-01 Orders Doctor POPPY 1.2.840.114 [id number] Univers 00:00:00 00:00:00 Only Unassigned, JOSELITO 350.1.13.10 ity of [facility] 4.2.7.2.686 [place] [phone] [address] 2019-10-30 2019-10-30 Patient Josette Cheung [place] [id number] Univers 00:00:00 00:00:00 Secure Msg Leti [place] 350.1.13.10 it[place] of [place] [phone] [place] dical [place]al [address] [place] [address] 2019-10-09 2019-10-09 Patient Josette Cheung [facility] [id number] Univers 00:00:00 00:00:00 Secure Msg Leti [place] 350.1.13.10 it[place] [phone] N[place] dical nal [address] [place] [address] 2019-06-15 2019-06-15 Nurse Nurse, [facility] 1.2.840.114 [id number] Univers 09:41:01 10:37:54 Visit Josette Cheung 350.1.13.10 it[place] of [place] [phone] [place] dical nal [address] [facility] 2019-06-15 2019-06-15 Orders Doctor POPPY 1.2.840.114 [id number] Univers 00:00:00 00:00:00 Only Unassigned, JOSELITO 350.1.13.10 [facility] 4.2.7.2.686 [place] [phone] [facility] [address] 2018-09-18 2018-09-18 [facility] [id number] [address] 16:15:00 16:15:00 t Urgent Urgent Care L [facility] 2018-08-25 2018-08-25 Appointmen [facility] Orth[facility] [id number] [facility] 08:45:00 08:45:00 t; ERICA WILLIAM, at [place], [place] Solomon MALDONADO M.D. ans 2018-04-25 2018-04-25 [facility] [id number] 10:15:00 10:15:00 [facility] 2018-04-20 2018-04-20 [facility] [id number] 16:28:00 16:28:00 [facility] 2018-04-18 2018-04-18 [facility] [id number] 09:45:00 09:45:00 [facility] 2018-04-11 2018-04-11 [facility] [id number] 11:30:00 11:30:00 t [facility] 2018-04-05 2018-04-05 [facility] [id number] 10:05:00 10:05:00 [facility] 2018-04-04 2018-04-04 [facility] [id number] 11:15:00 11:15:00 [facility] 2018-03-30 2018-03-30 [facility] [id number] 08:43:00 08:43:00 [facility] 2018-03-28 2018-03-28 [facility] [id number] 11:15:00 11:15:00 [facility] 2018-03-14 2018-03-14 [facility] [id number] 11:15:00 11:15:00 [facility] 2018-03-09 2018-03-09 [facility] [id number] 09:30:00 09:30:00 [facility] 2018-02-27 2018-02-27 [facility] [id number] 15:43:00 15:43:00 [facility] 2018-02-21 2018-02-21 [facility] [id number] 15:16:00 15:16:00 [facility] 2018-02-16 2018-02-16 [facility] [id number] 10:00:00 10:00:00 [facility] 2018-02-07 2018-02-07 [facility] [id number] 11:15:00 11:15:00 [facility] 2018-02-06 2018-02-06 [facility] [id number] 09:40:00 09:40:00 [facility] 2018-01-27 2018-01-27 [facility] [id number] 09:16:00 09:16:00 t [facility] 2018-01-18 2018-01-18 [facility] [id number] 10:00:00 10:00:00 t [facility] 2018-01-13 2018-01-13 [facility] [id number] 09:26:00 09:26:00 t [facility] 2018-01-03 2018-01-03 [facility] [id number] 09:00:00 09:00:00 t [facility] Results Test Description Test Time Test Comments Results Result Comments Source POCT TEST 2022-01-25 15:17:00 Test Item Value Reference Range Interpretation Comme nts POCT PREG (test code = 1605) Positive On board controls acceptable with C Line Yes (test code = 3574) POCT PREG LOT # (test code = 3575) POCT PREG TEST DATE (test code = 3576) BATSHEVA (test code = BATSHEVA) Faint line. accurate development and interpretation of all internal controls Lab Interpretation (test code = 58119-6) Abnormal [facility] BranchPO[facility] [id number] 01:21:00 Test Item Value Reference Range Interpretation Comments POCT PREG (test code = 1605) negative On board controls acceptable with positive C Line (test code = 3574) POCT PREG LOT # (test code = 3575) [id number] POCT PREG TEST DATE (test 11-09-2022 code = 3576) Lab Interpretation (test code = Normal 06227-7) [facility]2021-07-14 22:39:00 Test Item Value Reference Range Interpretation Comments POCT GP A STREP (test neg Negative - code = 79678-7) Negative BATSHEVA (test code = BATSHEVA) accurate development and interpretation of all internal controls Lab Interpretation Normal (test code = 29493-9) [facility] & CHLAMYDIA AMPLIFIED [id number] 19:04:03 Test Item Value Reference Range Interpretation Comments C. trachomatis Nucleic Negative Negative Acid (test code = 07575-4) N. gonorrhoeae Nucleic Negative Negative Acid (test code = 42766-2) BATSHEVA (test code = BATSHEVA) Reliable results [...] clinician. Lab Interpretation Normal (test code = 87014-3) [facility] P[facility] COMPLETE WITH [id number] 05:50:39 Unremarkable pelvic ultrasound. ? Preliminary Report [...] Report Dictated by Resident: Byron Lizarraga, Rosana Hilton MD., have reviewed this study and agree with theabove report. [facility] WITH [id number] 10:16:00 Test Item Value Reference Range Interpretation Comments WBC (test code = See_Comment [Automated 7590-2) message] The sy stem which generated this result transmitted reference range : 4.30 - 11.10 10*3/?L. The reference range was not used to interpret this result as normal/abnormal . RBC (test code = See_Comment L [Automated 469-8) message] The sy stem which generated this [...] (test code = 50.5 fL 39-49.9 H 36270-4) RDW-CV (test code = 14.8 % 12-15.5 788-0) PLT (test code = See_Comment [Automated 777-3) message] The sy stem which generated this result transmitted reference range : 166 - 358 10*3/ ?L. The reference r bety was not used to interpret this result as normal/abnormal . MPV (test code = 9.9 fL 9.5-12.9 00723-1) NRBC/100 WBC (test See_Comment [Automat ed code = 6933745456) message] The system which generated this result transmitted reference range : 0.0 - 10.0 /100 WBCs. The refer ence range was not u sed to interpret th is result as normal/abnormal . NRBC x10^3 (test code <0.01 See_Comment [Auto mated = 7035682157) message] The s ystem which generated this result transmitted reference range : 10*3/?L. The reference range was not used to interpret this result as normal/abnormal . GRAN MAT (NEUT) % 67.2 % (test code = 770-8) IMM GRAN % (test code 1.40 % = 5774827326) LYMPH % (test code = 23.1 % 736-9) MONO % (test code = 6.8 % 5905-5) EOS % (test code = 1.0 % 713-8) BASO % (test code = 0.5 % 706-2) GRAN MAT x10^3(ANC) 5.77 10*3/uL 1.88-7.09 (test code = 9100825420) IMM GRAN x10^3 (test 0.12 10*3/uL 0-0.06 H code = 3606185283) LYMPH x10^3 (test code 1.98 10*3/uL 1.32-3.29 = 731-0) MONO x10^3 (test code 0.58 10*3/uL 0.33-0.92 = 742-7) EOS x10^3 (test code = 0.09 10*3/uL 0.03-0.39 711-2) BASO x10^3 (test code 0.04 10*3/uL 0.01-0.07 = 704-7) Lab Interpretation Abnormal (test code = 13170-9) [facility] (D) IMMUNE [id number] 08:30:39 Test Item Value Reference Range Interpretation Comments RHIG CANDIDATE? No- see comment Patient i s not a (test code = candidate for R hIg- 5055) Patient is Rh Positive.Perfor med at [facility] Laboratory Services - [facility] Blood [address] [place], [place] [address]Toll Free: [phone] A No. [id number] [facility] HospitalVenous Cord [id number] 06:00:00 Test Item Value Reference Range Interpretation Comments VENOUS BASE EXCESS, mEq/L CORD (test code = 8889801672) VENOUS PH, CORD (test 7.25-7.45 code = 9552038722) VENOUS PC02, CORD See_Comment [Automate d message] The (test code = system which ge nerated 8419676500) this result tra nsmitted reference range : 27 - 49 mmHg. The refer ence range was not used to interpret this result as normal/abnormal . VENOUS PO2, CORD (test See_Comment [Aut omated message] The code = 3006305369) system [facility] generated this result tra nsmitted reference range : 17 - 41 mmHg. The refer ence range was not used to interpret this result as normal/abnormal . VENOUS BICARBONATE, See_Comment [Automa vonda message] The CORD (test code = system whi ch generated 2084144953) this result tra nsmitted reference range : 12 - 29 mEq/L. The refe rence range was not used to interpret this result as normal/abnormal . [facility] HospitalAD [facility] ONLY - [id number] 03:26:00 Test Item Value Reference Range Interpretation Comments RPR (Qualitative) (test code = Nonreactive Nonreactive 24371-3) Lab Interpretation (test code = Normal 67711-8) [facility] HospitalHepatitis B Surface [id number] 03:13:00 Test Item Value Reference Range Interpretation Comments HBsAg Semi-Quantitative (test code = Negative Negative 5195-3) [facility]HIV 1/2 AG-AB WITH [id number] 20:36:00 Test Item Value Reference Range Interpretation Comments HIV Negative Negative Semi-quantitative (test code = 51008-7) BATSHEVA (test code = Non-reactive for HIV-1 BATSHEVA) antigen and HIV-1/HIV-2 antibodies. ?No laboratory evidence of HIV infection. ?Repeat in 2-4 weeks if acute HIV infection is suspected. [facility] HospitalType and Screen - ONCE [id number] 19:42:02 Test Item Value Reference Range Interpretation Comments ABO & RH (test code A Positive Performe d at [facility] = 20) Laboratory Serv [facility] Blood Bank[address] [place], [place] [address]Toll Free: [phone] A No. [id number] IAT (test code = Negative Performed a t [facility] 1185) Laboratory Serv [facility] Blood [facility] [place], [place] [address]Toll Free: [phone] A No. [id number] [facility] HospitalFETAL NON-STRESS [id number] 19:37:09 Reactive and reassuring [place] with irritability Josette Cheung MD ?01/30/2020 ?2:36 [facility] WITH [id number] 19:16:00 Test Item Value Reference Range Interpretation Comments WBC (test code = See_Comment [Automated 5707-2) message] The sy stem which generated this result transmitted reference range : 4.30 - 11.10 10*3/?L. The reference range was not used to interpret this result as normal/abnormal . RBC (test code = See_Comment L [Automated 370-8) message] The sy stem which generated this [...] RDW-SD (test code = 48.5 fL 39-49.9 48189-9) RDW-CV (test code = 14.5 % 12-15.5 788-0) PLT (test code = See_Comment [Automated 777-3) message] The sy stem which generated this result transmitted reference range : 166 - 358 10*3/ ?L. The reference r bety was not used to interpret this result as normal/abnormal . MPV (test code = 9.8 fL 9.5-12.9 50871-2) NRBC/100 WBC (test See_Comment [Automat ed code = 9640263126) message] The system which generated this result transmitted reference range : 0.0 - 10.0 /100 WBCs. The refer ence range was not u sed to interpret th is result as normal/abnormal . NRBC x10^3 (test code <0.01 See_Comment [Auto mated = 7210847205) message] The s ystem which generated this result transmitted reference range : 10*3/?L. The reference range was not used to interpret this result as normal/abnormal . GRAN MAT (NEUT) % 83.1 % (test code = 770-8) IMM GRAN % (test code 1.20 % = 6459688634) LYMPH % (test code = 11.3 % 736-9) MONO % (test code = 4.2 % 5905-5) EOS % (test code = 0.1 % 713-8) BASO % (test code = 0.1 % 706-2) GRAN MAT x10^3(ANC) 6.68 10*3/uL 1.88-7.09 (test code = 0756016248) IMM GRAN x10^3 (test 0.10 10*3/uL 0-0.06 H code = 8175631834) LYMPH x10^3 (test code 0.91 10*3/uL 1.32-3.29 L = 731-0) MONO x10^3 (test code 0.34 10*3/uL 0.33-0.92 = 742-7) EOS x10^3 (test code = <0.03 0.03-0.39 L 711-2) BASO x10^3 (test code <0.03 0.01-0.07 = 704-7) Lab Interpretation Abnormal (test code = 81355-5) [facility] HospitalCORONAVIRUS COVID-19 [id number] 18:10:00 Test Item Value Reference Range Interpretation Comments SARS-CoV-2 (test code = Not Detected Not Detected 96387-2) BATSHEVA (test code = BATSHEVA) ID NOW COVID-19 Assay is an isothermal nucleic acid amplification test intended for the qualitative detection of nucleic acid from SARS-CoV-2 viral RNA in nasopharyngeal ([facility]) specimens. It is used under Emergency Use [...] indicated. Lab Interpretation Normal (test code = 52462-0) [facility] [id number] 14:17:00 Test Item Value Reference Range Interpretation [...] code = 3257) n/a Negative - Negative [facility] W/O SPECIFIC [id number] 19:24:00 Test Item Value Reference Range Interpretation [...] code = 3257) n/a Negative - Negative [facility] HospitalURINALYSIS2020-04-15 17:50:00 Test Item Value Reference Range Interpretation Comments APPEARANCE (test code = Cloudy Clear A 0373362399) COLOR (test code = Yellow Yellow 0540687933) PH (test code = 4.8-8.0 6330333815) SP GRAVITY (test code = 1.003-1.030 H 9071796911) GLU U QUAL (test code = Normal Normal 8665557991) BLOOD (test code = 2+ Negative A 0953398415) KETONES (test code = 5 mg/dL Negative A 3992176158) PROTEIN (test code = 30 mg/dL Negative A 2887-8) UROBILIN (test code = 2.0 mg/dL Normal A 9597713014) BILIRUBIN (test code = Negative Negative 2402925240) NITRITE (test code = Negative Negative 3253442829) LEUK JOO (test code = 250/uL Negative A 0008336609) RBC/HPF (test code = >182 See_Comment H [Autom ated message] 4575615104) The system [employer] generated this result transmit vonda reference range : 0 - 3 HPF. The refe rence range was not u sed to interpret th is result as normal/abnormal . WBC/HPF (test code = See_Comment H [Autom ated message] 9399785231) The system [employer] generated this result transmit vonda reference range : 0 - 5 HPF. The refe rence range was not u sed to interpret th is result as normal/abnormal . BACTERIA (test code = Moderate Negative A 7870130297) MUCOUS (test code = Marked Negative LPF A 8115407157) SQ EPITH (test code = HPF 2153623877) CA OXALATE (test code = See_Comment H [Au tomated message] 9568052116) The system [employer] generated this result transmit vonda reference range : <=1 HPF. The refere nce range was not u sed to interpret th is result as normal/abnormal . Lab Interpretation (test Abnormal code = 63877-2) [facility] CLC OR LCC ONLY - WET [id number] 17:37:00 Test Item Value Reference Range Interpretation Comments Wet Prep (test code Few Epithelial cells = 0928487875) present [facility] ONLY - FERN [id number] 17:31:00 Test Item Value Reference Range Interpretation Comments Fern Test (test code = 5824414582) Negative [facility] HospitalFETAL NON-STRESS [id number] 21:37:38 Reactive and reassuringToco quiescent Josette Cheung MD ?01/16/2020 ?4:37 PM [facility] HospitalPOHI URINALYSIS W/O SPECIFIC [id number] 21:17:00 Test Item Value Reference Range Interpretation [...] code = 3257) N/A Negative - Negative [facility] WITH [id number] 20:48:00 Test Item Value Reference Range Interpretation Comments WBC (test code = See_Comment [Automated 1590-2) message] The sy stem which generated this result transmitted reference range : 4.30 - 11.10 10*3/?L. The reference range was not used to interpret this result as normal/abnormal . RBC (test code = See_Comment L [Automated 359-8) message] The sy stem which generated this [...] RDW-SD (test code = 48.2 fL 39-49.9 09750-0) RDW-CV (test code = 14.5 % 12-15.5 788-0) PLT (test code = See_Comment [Automated 777-3) message] The sy stem which generated this result transmitted reference range : 166 - 358 10*3/ ?L. The reference r bety was not used to interpret this result as normal/abnormal . MPV (test code = 10.1 fL 9.5-12.9 49410-7) NRBC/100 WBC (test See_Comment [Automat ed code = 7898896473) message] The system which generated this result transmitted reference range : 0.0 - 10.0 /100 WBCs. The refer ence range was not u sed to interpret th is result as normal/abnormal . NRBC x10^3 (test code <0.01 See_Comment [Auto mated = 9540584488) message] The s ystem which generated this result transmitted reference range : 10*3/?L. The reference range was not used to interpret this result as normal/abnormal . GRAN MAT (NEUT) % 75.2 % (test code = 770-8) IMM GRAN % (test code 0.50 % = 8287348259) LYMPH % (test code = 16.4 % 736-9) MONO % (test code = 7.4 % 5905-5) EOS % (test code = 0.2 % 713-8) BASO % (test code = 0.3 % 706-2) GRAN MAT x10^3(ANC) 6.62 10*3/uL 1.88-7.09 (test code = 1534195854) IMM GRAN x10^3 (test 0.04 10*3/uL 0-0.06 code = 3368092938) LYMPH x10^3 (test code 1.44 10*3/uL 1.32-3.29 = 731-0) MONO x10^3 (test code 0.65 10*3/uL 0.33-0.92 = 742-7) EOS x10^3 (test code = <0.03 0.03-0.39 L 711-2) BASO x10^3 (test code 0.03 10*3/uL 0.01-0.07 = 704-7) Lab Interpretation Abnormal (test code = 17510-7) [facility] URINALYSIS W/O SPECIFIC [id number] 13:21:00 Test Item Value Reference Range Interpretation [...] code = 3257) N/A Negative - Negative [facility] URINALYSIS W/O SPECIFIC [id number] 22:25:00 Test Item Value Reference Range Interpretation [...] Negative Lab Interpretation (test code = Normal 18799-9) [facility] OR MARK ONLY - [id number] 06:36:00 Test Item Value Reference Range Interpretation Comments RPR (Qualitative) (test code = Nonreactive Nonreactive 78588-4) Lab Interpretation (test code = Normal 61404-0) [facility] AG-AB WITH [id number] 20:17:00 Test Item Value Reference Range Interpretation Comments HIV Negative Negative Semi-quantitative (test code = 27522-6) BATSHEVA (test code = Non-reactive for HIV-1 BATSHEVA) antigen and HIV-1/HIV-2 antibodies. ?No laboratory evidence of HIV infection. ?Repeat in 2-4 weeks if acute HIV infection is suspected. [facility] HospitalGLUCOSE 1 HOUR POST [id number] 18:26:00 Test Item Value Reference Range Interpretation Comments GLUC 1 HR (test code = 1401724630) 121 mg/dL 120-170 Lab Interpretation (test code = Normal 67592-7) [facility] HospitalPRENATAL WORKUP, BLOOD [id number] 16:49:20 Test Item Value Reference Range Interpretation Comments ABO & RH (test code A Positive Performe d at [facility] = 20) Laboratory Serv [facility] Blood [facility] [place] [address] Free: [phone] A No. [id number] IAT (test code = Negative Performed a t [facility] 1185) Laboratory Serv [facility] Blood [facility] [place], [place] [address]Toll Free: [phone] A No. [id number] [facility] HospitalCBC WITH [id number] 16:39:00 Test Item Value Reference Range Interpretation Comments WBC (test code = See_Comment [Automated 2609-2) message] The sy stem which generated this result transmitted reference range : 4.30 - 11.10 10*3/?L. The reference range was not used to interpret this result as normal/abnormal . RBC (test code = See_Comment [Automated 307-8) message] The sy stem which generated this [...] RDW-SD (test code = 46.8 fL 39-49.9 19145-0) RDW-CV (test code = 13.4 % 12-15.5 788-0) PLT (test code = See_Comment [Automated 777-3) message] The sy stem which generated this result transmitted reference range : 166 - 358 10*3/ ?L. The reference r bety was not used to interpret this result as normal/abnormal . MPV (test code = 10.0 fL 9.5-12.9 37925-9) NRBC/100 WBC (test See_Comment [Automat ed code = 7593538378) message] The system which generated this result transmitted reference range : 0.0 - 10.0 /100 WBCs. The refer ence range was not u sed to interpret th is result as normal/abnormal . NRBC x10^3 (test code <0.01 See_Comment [Auto mated = 0499591981) message] The s ystem which generated this result transmitted reference range : 10*3/?L. The reference range was not used to interpret this result as normal/abnormal . GRAN MAT (NEUT) % 77.4 % (test code = 770-8) IMM GRAN % (test code 0.70 % = 0807765938) LYMPH % (test code = 16.3 % 736-9) MONO % (test code = 5.0 % 5905-5) EOS % (test code = 0.4 % 713-8) BASO % (test code = 0.2 % 706-2) GRAN MAT x10^3(ANC) 6.31 10*3/uL 1.88-7.09 (test code = 6172727758) IMM GRAN x10^3 (test 0.06 10*3/uL 0-0.06 code = 3002068419) LYMPH x10^3 (test code 1.33 10*3/uL 1.32-3.29 = 731-0) MONO x10^3 (test code 0.41 10*3/uL 0.33-0.92 = 742-7) EOS x10^3 (test code = 0.03 10*3/uL 0.03-0.39 711-2) BASO x10^3 (test code <0.03 0.01-0.07 = 704-7) Lab Interpretation Abnormal (test code = 64744-3) [facility]URIN[facility]YSIS2020-01-25 21:32:00 Test Item Value Reference Range Interpretation Comments APPEARANCE (test code = Cloudy Clear A 1624794094) COLOR (test code = Yellow Yellow 2729067316) PH (test code = 4.8-8.0 1837801805) SP GRAVITY (test code = 1.003-1.030 4901098404) GLU U QUAL (test code = Normal Normal 2666375594) BLOOD (test code = Negative Negative 3933520816) KETONES (test code = Negative Negative 4689775487) PROTEIN (test code = Negative Negative 2887-8) UROBILIN (test code = Normal Normal 0721407732) BILIRUBIN (test code = Negative Negative 6328021999) NITRITE (test code = Negative Negative [id number]) LEUK JOO (test code = 250/uL Negative A 3430507960) RBC/HPF (test code = See_Comment [Autom ated message] [id number]) The system [employer] generated this result transmitted ref erence range: 0 - 3 HP F. The reference range was not used to int erpret this result as normal/abnormal . WBC/HPF (test code = See_Comment H [Autom ated message] [id number]) The system [employer] generated this result transmitted ref erence range: 0 - 5 HP F. The reference range was not used to int erpret this result as normal/abnormal . BACTERIA (test code = Few Negative A [id number]) MUCOUS (test code = Slight Negative LPF A 4100169967) SQ EPITH (test code = HPF 3518514010) Lab Interpretation (test Abnormal code = 06331-6) [id number] Test Item Value Reference Range Interpretation Comments POCT PREG (test code Positive = 1605) On board controls Yes acceptable with C Line (test code = 3574) POCT PREG LOT # (test code = 3575) POCT PREG TEST DATE (test code = 3576) BATSHEVA (test code = BATSHEVA) accurate development and interpretation of all internal controls [facility] [id number] 11:31:00 EXAM: Left knee wo contrast MRIINDICATION: [...] fat padwhich may be related to impingement.SL: [id number] by: Leo Barragan MDDictated Date/time: 09/05/18 12:16Electronically Signed by: Leo Barragan MD 09/05/1812:23FINAL REPORT [facility] Extremity lower venous doppler bilat [id number] 2018-09-05 10:29:00PROCEDURE: BILATERAL LOWER EXTREMITY VENOUS ULTRASOUNDClinical [...] saphenofemoral junction isunremarkable.IMPRESSION: No deep venous thrombosis.SL: [id number] by: Dima Haney MDDictated Date/time: 09/05/18 11:46Electronically Signed by: Dima Haney MD 1 11/05/1810:49FINAL REPORTUnSt. [facility][U] XRAY KNEE 3 VWS LEFT [id number] 08:56:00Images acquired, not reported on this accession number. [facility]
[2022-01-25 22:07] LABS: Urine Blood Negative (Negative); Urine Glucose Negative (Negative); Urine Protein Negative (Negative); Urine Specific Gravity >=1.030 (1.005-1.030)
[2022-01-25 22:38] LABS: Calcium Oxalate Crystals- Ur PRESENT (NONE SEEN); Urine Bacteria <20 /HPF (<20); Urine Mucus 1+ /HPF (NONE SEEN); Urine RBC <5 /HPF (NONE SEEN)
[2022-01-25 22:41] LABS: Lymphocytes % 27.9 % (15.3-44.8); RBC Red Blood Cell Count 4.52 M/uL (3.86-4.86)
[2022-01-25 22:46] LABS: Potassium 3.9 mmol/L (3.5-5.1)
[2022-01-25] MEDS ORDERED: ACETAMINOPHEN 500 MG TAB ONE (22:50)
--- NOTE | 2022-01-26 00:25 | EDPHYS ---
Physician Documentation [facility] Name: Nicolasa Rose Age: 26 yrs Sex: Female : 1995 Arrival Date: 01/25/2022 Time: 20:55 Bed 19 Private MD: ED Physician Alejandro Rai HPI: 01/25 21:44 This 26 yrs old Female presents to ER via Ambulatory with complaints of Abdominal Pain. cp 21:44 The patient presents with abdominal pain in the lower abdomen. Onset: The cp symptoms/episode began/occurred today. The symptoms do not radiate. Associated signs and symptoms: Pertinent negatives: constipation, diarrhea, fever, hematuria, vomiting, vaginal bleeding. The symptoms are described as crampy. 21:45 Patient reports having positive test today. 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 Flu vaccine is up to date. - Social history:: Smoking status: Patient denies any tobacco usage or history of. ROS: 21:50 Abdomen/GI: Positive for abdominal cramps, of the right lower quadrant, Negative for cp nausea, vomiting, and diarrhea, constipation. 21:50 Constitutional: Negative for body aches, chills, fever, poor PO intake. cp 21:50 Respiratory: Negative for cough, shortness of breath, wheezing. 21:50 Neuro: Negative for altered mental status, headache, weakness. cp 21:50 Cardiovascular: Negative for chest pain, edema, palpitations. cp 21:50 : Negative for urinary symptoms, vaginal bleeding, vaginal discharge. cp 21:50 All other systems are negative. Exam: 21:55 Constitutional: The patient appears in no acute distress, alert, awake, non-toxic, well cp developed, well nourished, obese. 21:55 Head/Face: Normocephalic, atraumatic. cp 21:55 Eyes: Periorbital structures: appear normal, Conjunctiva: normal, no exudate, no injection, Sclera: no appreciated abnormality, Lids and lashes: appear normal, bilaterally. 21:55 ENT: External ear(s): are unremarkable, Nose: is normal, Mouth: Lips: moist, Oral mucosa: moist, Posterior pharynx: Airway: no evidence of obstruction, patent. 21:55 Chest/axilla: Inspection: normal. 21:55 Cardiovascular: Rate: normal, Rhythm: regular. 21:55 Respiratory: the patient does not display signs of respiratory distress, Respirations: normal, no use of accessory muscles, no retractions, labored breathing, is not present, Breath sounds: are clear throughout, no decreased breath sounds. 21:55 Abdomen/GI: Inspection: abdomen appears normal, Bowel sounds: active, all quadrants, Palpation: soft, in all quadrants, mild abdominal tenderness, in the right lower quadrant, rebound tenderness, is not appreciated, involuntary guarding, is not appreciated. 21:55 Back: CVA tenderness, is absent. Vital Signs: 21:09 BP 106 / 69; Pulse 87; Resp 18; Temp 98.2(O); Pulse Ox 100% on R/A; Weight 109.32 kg; oe Height 5 ft. 5 in. (165.10 cm); 22:44 BP 101 / 70; Pulse 75; Resp 18; Pulse Ox 100% ; al4 23:00 BP 99 / 66; Pulse 69; Resp 18; Pulse Ox 100% ; al4 01/26 00:30 BP 106 / 67; Pulse 70; Resp 18; Pulse Ox 99% ; al4 01/25 21:09 Body Mass Index 40.10 (109.32 kg, 165.10 cm) oe MDM: 01/25 21:04 Patient medically screened. cp 01/26 00:16 Data reviewed: vital signs, nurses notes, lab test result(s). cp 00:16 Counseling: I had a detailed discussion with the patient and/or guardian regarding: the cp historical points, exam findings, and any diagnostic results supporting the discharge/admit diagnosis, lab results, the need for outpatient follow up, an OB/Gyne specialist, to return to the emergency department if symptoms worsen or persist or if there are any questions or concerns that arise at home. Response to treatment: the patient's symptoms have markedly improved after treatment, VSS. Patient seated comfortably in exam room. Low suspicion for ectopic . Will discharge to home and recommend repeat beta-hcg in 48 hours. 01/25 21:11 Order name: Urine Microscopic Only 01/25 21:37 Order name: Abo/rh Typing 01/25 21:37 Order name: Basic Metabolic Panel 01/25 21:37 Order name: CBC with Diff 01/25 21:37 Order name: Quantitative Hcg 01/25 21:11 Order name: Urine Dipstick-Ancillary (obtain specimen); Complete Time: 22:51 cp 01/25 21:11 Order name: Urine Test (obtain specimen); Complete Time: 22:51 cp 01/25 21:37 Order name: IV Saline Lock; Complete Time: 22:48 cp 01/25 21:37 Order name: Labs collected and sent; Complete Time: 22:48 cp 01/26 00:19 Order name: Urine Dipstick-Ancillary EDNM 01/26 00:20 Order name: Urine Culture [facility] 01/25 21:37 Order name: NPO; Complete Time: 22:48 cp Administered Medications: 01/25 22:48 Drug: Tylenol 1000 mg Route: PO; al4 23:48 Follow up: Response: No adverse reaction al4 Disposition: 01/26 00:44 Co-signature as Attending Physician, Alejandro Rai MD I agree with the assessment and kdr plan of care. Disposition Summary: 01/26/22 00:17 Discharge Ordered Location: Home cp Problem: new cp Symptoms: have improved cp Condition: Stable cp Diagnosis - related conditions, unspecified, first trimester cp Followup: cp - With: Private Physician - When: 48 Hours - Reason: Repeat Beta-HCG (48 Hours) Discharge Instructions: - Discharge Summary Sheet cp - Abdominal Pain During cp - Care cp - First Trimester of cp Forms: - Medication Reconciliation Form cp - Thank You Letter cp - Antibiotic Education cp - Prescription Opioid Use cp Prescriptions: - 147-iron gluc-folic 13 mg iron- 1 mg Oral tablet - take 1 tablet by ORAL route once daily; 60 tablet; Refills: 0, Product cp Selection Permitted Signatures: Dispatcher MedP[facility] CenterAlejandro Ko MD MD kdr Page, Corey, PA PA cp Connor Boggs al4 Marimar Sabaa, RN RN vc1 Corrections: (The following items were deleted from the chart) 23:55 01/25 21:50 All other systems are negative, cp cp
--- NOTE | 2022-01-26 00:25 | ER ---
Nurse's Notes [facility] Name: Nicolasa Rose Age: 26 yrs Sex: Female : 1995 Arrival Date: 01/25/2022 Time: 20:55 Bed 19 Private MD: Diagnosis: related conditions, unspecified, first trimester Presentation: 01/25 21:04 Chief complaint: Patient states: "I found out I was today and now I am vc1 cramping.". 21:06 Coronavirus screen: Vaccine status: Patient reports receiving the 2nd dose of the covid vc1 vaccine. Jose Alberto At this time, the client does not indicate any symptoms associated with coronavirus-19. Ebola Screen: No symptoms or risks identified at this time. Risk Assessment: Do you want to hurt yourself or someone else? Patient reports no desire to harm self or others. Onset of symptoms was January 25, 2022. 21:06 Method Of Arrival: Ambulatory vc1 21:06 Acuity: ROSENDO 4 vc1 22:44 Initial Sepsis Screen: Does the patient meet any 2 criteria? No. Patient's initial al4 sepsis screen is negative. Does the patient have a suspected source of infection? No. Patient's initial sepsis screen is negative. Triage Assessment: 21:08 General: Appears in no apparent distress. comfortable, Behavior is calm, cooperative, vc1 appropriate for age. Pain: Complains of pain in right inguinal area Pain does not radiate. Pain currently is 6 out of 10 on a pain scale. Quality of pain is described as sharp, Pain began suddenly, Is continuous. Neuro: Level of Consciousness is awake, alert, obeys commands, Oriented to person, place, time, situation. Cardiovascular: Capillary refill < 3 seconds Patient's skin is warm and dry. GI: Abdomen is round non-distended. : No deficits noted. Derm: No deficits noted. 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 Flu vaccine is up to date. - Social history:: Smoking status: Patient denies any tobacco usage or history of. Screenin:11 Abuse screen: Denies threats or abuse. Nutritional screening: No deficits noted. al4 Tuberculosis screening: No symptoms or risk factors identified. Fall Risk No fall in past 12 months (0 pts). No IV (0 pts). Ambulatory Aid- None/Bed Rest/Nurse Assist (0 pts). Gait- Normal/Bed Rest/Wheelchair (0 pts) Mental Status- Oriented to own ability (0 pts). Total Cates Fall Scale indicates No Risk (0-24 pts). Assessment: 21:11 General: Appears in no apparent distress. comfortable, Behavior is calm, cooperative, al4 patient was seen by [facility] urgent care prior to coming to the ED . Pain: Complains of pain in right lower quadrant Quality of pain is described as crampy, Pain began 4 hours ago. Neuro: Level of Consciousness is awake, alert, obeys commands, Oriented to person, place, time, situation. Cardiovascular: Capillary refill < 3 seconds Patient's skin is warm and dry. Respiratory: Airway is patent Respiratory effort is unlabored, Respiratory pattern is regular. GI: Abd is soft and non tender Reports nausea, Patient currently denies diarrhea, vomiting. : Reports urinary frequency, Denies burning with urination, discharge, vaginal bleeding. Musculoskeletal: Circulation, motion, and sensation intact. 21:13 Reassessment: urine specimen cup given to patient. al4 23:00 Reassessment: Patient and/or family updated on plan of care and expected duration. Pain al4 level reassessed. Patient is alert, oriented x 3, equal unlabored respirations, skin warm/dry/pink. 01/26 00:30 Reassessment: Patient and/or family updated on plan of care and expected duration. Pain al4 level reassessed. Patient is alert, oriented x 3, equal unlabored respirations, skin warm/dry/pink. Vital Signs: 01/25 21:09 BP 106 / 69; Pulse 87; Resp 18; Temp 98.2(O); Pulse Ox 100% on R/A; Weight 109.32 kg; oe Height 5 ft. 5 in. (165.10 cm); 22:44 BP 101 / 70; Pulse 75; Resp 18; Pulse Ox 100% ; al4 23:00 BP 99 / 66; Pulse 69; Resp 18; Pulse Ox 100% ; al4 01/26 00:30 BP 106 / 67; Pulse 70; Resp 18; Pulse Ox 99% ; al4 01/25 21:09 Body Mass Index 40.10 (109.32 kg, 165.10 cm) oe ED Course: 01/25 20:55 Patient arrived in ED. ds1 21:01 Kenny Tucker PA is PHCP. cp 21:01 Alejandro Rai MD is Attending Physician. cp 21:07 Triage completed. vc1 21:09 Arm band placed on right wrist. vc1 21:11 Patient has correct armband on for positive identification. al4 21:16 Connor Boggs is Primary Nurse. al4 22:00 Inserted saline lock: 20 gauge in right antecubital area, using aseptic technique. oe Blood collected. 01/26 00:39 No provider procedures requiring assistance completed. IV discontinued, intact, al4 bleeding controlled, No redness/swelling at site. Pressure dressing applied. Administered Medications: 01/25 22:48 Drug: Tylenol 1000 mg Route: PO; al4 23:48 Follow up: Response: No adverse reaction al4 Outcome: 01/26 00:17 Discharge ordered by MD. cp 00:39 Discharged to home ambulatory. al4 00:39 Condition: stable 00:39 Discharge instructions given to patient, Instructed on discharge instructions, follow up and referral plans. medication usage, Demonstrated understanding of instructions, follow-up care, medications. 00:39 Patient left the ED. al4 Signatures: Xochitl Hayes ds1 Kenny Tucker PA PA cp Nhan Verdugo oe Connor Boggs al4 Jacqueline Saba RN RN vc1 Corrections: (The following items were deleted from the chart) 02:37 01/25 21:11 General: Appears in no apparent distress. comfortable, Behavior is calm, al4 cooperative, al4
[2022-01-26 07:53] VITALS: TEMP 98.2
[2022-01-26 07:58] VITALS: BP 106/67; O2SAT 99
== END 2022-01-26 00:39 | disposition home or self-care (01) ==
LOC: ER 20:53
DX: O26.891 Other specified pregnancy related conditions, first trimester (principal); O99.341 Other mental disorders complicating pregnancy, first trimester; F41.8 Other specified anxiety disorders; Z3A.00 Weeks of gestation of pregnancy not specified; Z88.0 Allergy status to penicillin; Z88.8 Allergy status to other drugs, medicaments and biological substances
CPT/HCPCS: 36415; 80048; 81003; 81015; 84702; 85025; 86900; 86901; 87086; 87088; 99284

== ENCOUNTER 2024-10-24 11:28 | Emergency (ER) | payer OTHER, SELFPAY ==
--- OUTSIDE RECORDS SUMMARY | 2024-10-24 11:37 | XMS REPORT | Continuity of Care Document ---
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 Phone LOREN HERNANDEZ Primary Care Physician Unavailab Fernandez Kellogg Attending Clinician Unavailable KIMBERLYN SR Attending Clinician Unavailable SANTY YARBROUGH Attending Clinician UnavailVINI Weber Attending Clinician Unavailab [facility] Attending Clinician UnavailLOREN Mathews Attending Clinician Unavailable MD CARLOS A Attending Clinician Unavailab TIFFANY Miles Attending Clinician Un available LEONOR MUELLER Attending Clinician Unavailable Leonor Mueller MD Attending Clinician Unknown, Attending Attending Clinician Unavailab JARRETT Garcia Attending Clinician Unavailable JARRETT NAVARRO Attending Clinician Unavailable Vincent RESOLUTION MANAGER, Shinta Attending Clinician [phone] Ebrahim RESOLUTION MANAGER, Rania Attending Clinician [phone] EBRAHIBernardino, RANIA Attending Clinician Unavailable LAB90 Attending Clinician Unavailable ESTHER GARZA Attending Clinician Unavailab ESTHER Lynch Attending Clinician Unavailab Esther Lynch DO Attending Clinician [phone] KRYSTA BARRETO Attending Clinician UnaKAIDEN Mai Attending Clinician Unavailable BERONICA MOORE Attending Clinician Unavailable PASHA PEDROZA Attending Clinician Unavailable CHANTELL BOO Attending Clinician Unavailable GENET NI Attending Clinician Unavailab le LAB47 Attending Clinician Unavailable FRACISCO NAGY Attending Clinician Unavailab HARI Dixon Attending Clinician Unavailable JANET PERAZA Attending Clinician Unavailable JUNIOR LYNN Attending Clinician Unavailable JOSETTE CHEUNG Attending Clinician Unavailable Gildardo DUNNE Attending Clinician Unavailable Gildardo Cohen Attending Clinician [phone] ELEN BENEDICT Attending Clinician Unavailable Elen Benedict NP Attending Clinician [phone] OMAGHOMI, OMAYEMI Attending Clinician Unavailabl e Omaghomi RESOLUTION MANAGER, Omayemi Attending Clinician [phone] Unknown, Attending Attending Clinician Unavailab le Doctor Unassigned, [place] Attending Clinician U NICOLE Gaspar Attending Clinician Unavailable KORTNEY TREJO Attending Clinician UnavailKORTNEY Chung Attending Clinician Unavailsherif Andrade RESOLUTION MANAGER, Sydnie Attending Clinician [phone] SYDNIE ANDRADE Attending Clinician Unavailable Josette Cheung MD Attending Clinician [phone] Shayy Gonzales MA Attending Clinician Unavailable Fontanilla III, CUSTOM CLOTHIER, R Attending Clinician [phone] Leandra Wyatt MD Attending Clinician [phone] Pob, [facility] Main Attending Clinician UnavailJoanne Hidalgo RN Attending Clinician Unavailable Kimberlyn Sr MD Attending Clinician [phone] Ultrasound, Ang-Mfm Attending Clinician Unavaila Meche Kim MD Attending Clinician + MECHE ARROYO Attending Clinician Jj Alberto RN, Migdalia Attending Clinician UnavailMERCY Akins Attending Clinician MERCY Barrow Attending Clinician Ross Mcqueen MD, Jarvis Jain Attending Clinician [phone] Dena Manrique RN Attending Clinician Unavailable JARVIS MCQUEEN Attending Clinician Unavailable Moriah Lay MD Attending Clinician [phone] SAM BRADLEY Attending Clinician Unavailable Kirk KMI, Sam Attending Clinician [phone], [facility] Room Attending Clinician UnavailMigdalia Morelos MD Attending Clinician [phone] MIGDALIA VAZQUEZ Attending Clinician Unavailable MIGDALIA VAZQUEZ Attending Clinician Unavailable Truong Leo RN Attending Clinician Cecy Lanier RN Attending Clinician Unavailable Leonor Mueller MD Attending Clinician [phone] Lab, Ang - Db Attending Clinician Unavailable ELPIDIO MARTINEZ Attending Clinician Unavailable Elpidio Leos S Attending Clinician [phone] KAI LARKIN Attending Clinician Unavailable Kai Barrera Attending Clinician [phone] Poppy Ceron PA-C Attending Clinician +[phone] POPPY CERON Attending Clinician Unavailable John Cain RN Attending Clinician Unavailab NIXON Barroso Attending Clinician Unavailable Nixon Perdue DO Attending Clinician [phone] Nydia Vera Attending Clinician [phone] NYDIA PHILLIPS Attending Clinician UnavailEZRA Moore Attending Clinician Unavailable ELLE SAMUELS Attending Clinician Unavailable Elle Samuels PA-C Attending Clinician Unavailpatricia Mireles RN, [place] Franks Attending Clinician Unavailab Shanika Williamson Attending Clinician [phone] EbDelvis Patrick Attending Clinician [phone] Only, [facility] Test Attending Clinician UnavailCHRISTIANO Brown Attending Clinician Unavailable Jerod Angelo MD Attending Clinician [phone] Provider, [facility] Attending Clinician Un available Krysta Leger Attending Clinician [phone] KRYSTA MCKEON Attending Clinician Unavailab Farzad Medrano DO Attending Clinician [phone] Christiano Angeles PA-C Attending Clinician [phone] 2, [facility] Lab Attending Clinician Unavailable Elan Denny MD Attending Clinician [phone] Trevor John MD Attending Clinician [phone] Gabino Alvarez MD Attending Clinician [phone] Nurse, [facility] Attending Clinician Un available JOEL ODOM M.D. Attending Clinician U KIMBERLYN Chou Admitting Clinician Unavailable JOSETTE CHEUNG Admitting Clinician Unavailable JARRETT NAVARRO Admitting Clinician Unavailable FRACISCO NAGY Admitting Clinician Unavailab Gildardo Gross Admitting Clinician Unavailable ELEN BENEDICT Admitting Clinician Unavailable Josette Cheung MD Admitting Clinician [phone] Kimberlyn Sr MD Admitting Clinician [phone] [facility] STEWART Admitting Clinician SAM Braun Admitting Clinician Unavailable Sam Bradley MD Admitting Clinician [phone] ELPIDIO MARTINEZ Admitting Clinician Unavailable KORTNEY TREJO Admitting Clinician UnavailNIXON Garland Admitting Clinician Unavailable KAI LARKIN Admitting Clinician Unavailable Gabino Alvarez MD Admitting Clinician + [phone] Payers Payer Name Policy Type Policy Number Effective Date Expirati on Date Source [facility] [id number] 2019 00:00:00 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 ON 9 [id number] 2024 00:00:00 HUNTER Thacker/ ANAT [place] [id number] 2024 00:00:00 2024 00:00:00 [facility] [id number] 2020 00:00:00 [facility] [id number] 2020 00:00:00 [facility] [id number] 2020 00:00:00 [facility] [id number] 2020 00:00:00 [facility] [id number] 2020 00:00:00 [facility] [id number] 2020 00:00:00 [facility] Problems Condition Name Condition Details Condition Category Status Onset Date Resolution Date Last Treatment Date Treating Clinician Comments Source BMI 40.0-44.9, adult BMI 40.0-44.9, adult Disease Active 06-27 00:00: 00 [facility] - Externa l Strain of right knee, initial encounter Strain of right knee, initial encounter Disease Active 05-13 00:00: 00 [facility] Acute pain of right knee Acute pain of right knee Disease Active 05-13 00:00: 00 [facility] Nexplanon in place Nexplanon in place Disease Active 1 00:00: 00 [facility] BMI 39.0-39.9, adult BMI 39.0-39.9, adult Disease Active 03-10 00:00: 00 [facility] [id number] Multigravi da in third trimester Problem Active [facility] [id number] Panic disorder [episodic paroxysmal anxiety] Problem Active [facility] [id number] Generalize d anxiety disorder Problem Active [facility] [id number] Seasonal allergies Problem Active [facility] [id number] Current moderate episode of major depressive disorder without prior episode Problem Active [facility] [id number] Morbid (severe) obesity due to excess calories Problem Active [facility] [id number] Primary insomnia Problem Active [facility] History of back pain History of back pain Problem [facility] History of depression History of depression Problem HL7.CCDAR2 [facility] Leg swelling Leg swelling Problem HL7.CCDAR2 Active [facility] Acute traumatic internal derangemen t of left knee, initial encounter Acute traumatic internal derangemen t of left knee, initial encounter Problem HL7.CCDAR2 [facility] Encounter for visit Encounter for visit Disease Resolve d 1-04 00:00: 00 2022-11-05 00:00:00 2022-11-05 11:05:00 [facility] General counseling and advice on female contracept ion General counseling and advice on female contracept ion Disease Resolve d 2021-10 2-19 00:00: 00 2022-11-05 00:00:00 2022-11-05 11:05:01 [facility] Positive GBS test Positive GBS test Disease Resolve d 2021-10 2-09 00:00: 00 2022-11-05 00:00:00 2022-11-05 11:05:02 [facility] Encounter for tubal ligation counseling Encounter for tubal ligation counseling Disease Resolve d 9-01 00:00: 00 2022-11-05 00:00:00 2022-11-05 11:05:03 [facility] Obesity affecting , antepartum Obesity affecting , antepartum Disease Resolve d 1 2-01 00:00: 00 2022-10-21 00:00:00 2022-10-21 12:46:38 [facility] Group B streptococ johnny infection in Group B streptococ johnny infection in Disease Resolve d 1 1-07 00:00: 00 2022-10-21 00:00:00 2022-10-21 12:46:58 [facility] Depression affecting , antepartum Depression affecting , antepartum Disease Resolve d 2021-0 9-21 00:00: 00 2022-10-21 00:00:00 2022-10-21 12:46:25 [facility] 39 weeks gestation of 39 weeks gestation of Disease Resolve d 2019-0 4-22 00:00: 00 2022-10-21 00:00:00 2022-10-21 12:46:50 [facility] BMI 40.0-44.9, adult BMI 40.0-44.9, adult Disease Resolve d 2019-0 3-05 00:00: 00 2022-10-21 00:00:00 2022-10-21 12:46:29 [facility] Supervisio n of other high risk , antepartum Supervisio n of other high risk , antepartum Disease Resolve d 2019-0 1-27 00:00: 00 2022-10-21 00:00:00 2022-10-21 12:46:44 [facility] Liveborn , of reyna , born in hospital by vaginal delivery Liveborn , of reyna , born in hospital by vaginal delivery Disease Resolve d 2015-0 6-23 00:00: 00 2022-10-21 00:00:00 2022-10-21 12:47:04 [facility] Third trimester Third trimester Disease Resolve d 2021-10 2-01 00:00: 00 2022-09-27 00:00:00 2022-09-27 06:02:13 [facility] Person with feared complaint in whom no diagnosis was made Person with feared complaint in whom no diagnosis was made Disease Resolve d 2021-10 2-01 00:00: 00 2022-09-27 00:00:00 2022-09-27 06:02:07 [facility] Pelvic pain affecting in third trimester, antepartum Pelvic pain affecting in third trimester, antepartum Disease Resolve d 2021-10 1-07 00:00: 00 2022-09-27 00:00:00 2022-09-27 06:01:43 [facility] History of oligohydra mnios in prior , currently in third trimester History of oligohydra mnios in prior , currently in third trimester Disease Resolve d 2022-1 0-31 00:00: 00 2022-09-27 00:00:00 2022-09-27 06:01:13 [facility] Urinary tract infection without hematuria, site unspecifie d Urinary tract infection without hematuria, site unspecifie d Disease Resolve d 2021-1 0-14 00:00: 00 2022-09-27 00:00:00 2022-09-27 06:02:14 [facility] Edema during in second trimester Edema during in second trimester Disease Resolve d 2021-0 9-16 00:00: 00 2022-09-27 00:00:00 2022-09-27 06:01:27 [facility] Obesity in , antepartum Obesity in , antepartum Disease Resolve d 2021-0 9-16 00:00: 00 2022-09-27 00:00:00 2022-09-27 06:01:41 [facility] Abdominal pain, right lower quadrant Abdominal pain, right lower quadrant Disease Resolve d 2021-0 7-06 00:00: 00 2022-09-27 00:00:00 2022-09-27 06:01:23 [facility] Nausea and vomiting during Nausea and vomiting during Disease Resolve d 2021-0 5-23 00:00: 00 2022-09-27 00:00:00 2022-09-27 06:01:30 [facility] Nausea and vomiting during Nausea and vomiting during Disease Resolve d 2021-0 5-23 00:00: 00 2022-09-27 00:00:00 2022-09-27 06:01:30 [facility] Subchorion ic hematoma in first trimester, single or unspecifie d fetus Subchorion ic hematoma in first trimester, single or unspecifie d fetus Disease Resolve d 2021-0 7-06 00:00: 00 2022-09-17 00:00:00 2022-09-17 10:51:20 [facility] 15 weeks gestation of 15 weeks gestation of Disease Resolve d 2021-0 7-06 00:00: 00 2022 00:00:00 2022 16:05:36 [facility] with inconclusi ve viability, single or unspecifie d fetus with inconclusi ve viability, single or unspecifie d fetus Disease Resolve d 4-19 00:00: 00 2022 00:00:00 2022 16:05:33 [facility] Missed menses Missed menses Disease Resolve d 0 4-19 00:00: 00 2022 00:00:00 2022 16:05:31 [facility] with inconclusi ve viability, single or unspecifie d fetus with inconclusi ve viability, single or unspecifie d fetus Disease Resolve d 4-19 00:00: 00 2022 00:00:00 2022 16:05:33 [facility] Oligohydra mnios Oligohydra mnios Disease Resolve d 01-29 00:00: 00 2020-02-29 00:00:00 2020-02-29 09:26:05 [facility] Obesity (BMI 30-39.9) Obesity (BMI 30-39.9) Disease Resolve d 9-06 00:00: 00 2020-01-30 00:00:00 2020-01-30 21:40:57 [facility] 26 weeks gestation of 26 weeks gestation of Disease Resolve d 11-05 00:00: 00 2019-12-03 00:00:00 2019-12-03 14:20:39 [facility] Postprandi al nausea Postprandi al nausea Disease Resolve d 2018-10 00:00: 00 2019-11-05 00:00:00 2019-11-05 17:51:31 [facility] 40 weeks gestation of 40 weeks gestation of Disease Resolve d 04-01 00:00: 00 2019-10-07 00:00:00 2019-10-07 07:23:47 [facility] Active labor at term Active labor at term Disease Resolve d 04-01 00:00: 00 2019-10-07 00:00:00 2019-10-07 07:23:49 [facility] Common Discomfort s of Common Discomfort s of Disease Resolve d 2015-0 3- 00:00: 00 2019-10-07 00:00:00 2022-04-25 00:40:01 [facility] Allergies, Adverse Reactions, Alerts Allergy Name Allergy Type Status Severity Reaction(s) Onset Date Inactive Date Treating Clinician Comments Source Codeine Propensi ty to adverse reaction s Active 2022-10 00:00: 00 [facility] - Raymundoa l Aripipra zole Monohydr ate Propensi ty to adverse reaction s Active Rash 2014-10 00:00: 00 [facility] - Externa l Penicill ins Propensi ty to adverse reaction s Active Rash 2014-10 00:00: 00 [facility] - Externa l Penicill ins Propensi ty to adverse reaction s Active Rash 2014-10 00:00: 00 [facility] ARIPIPRA ZOLE DRUG INGREDI Active Rash 2014-10 00:00: 00 [facility] PENICILL INS Drug Class Active Rash 2014-10 00:00: 00 [facility] Aripipra zole Drug Allergy Active Rash 2014-10 00:00: 00 [facility] Abilify drug allergy Active [facility] Penicill ins drug allergy Active [facility] Family History Family Member Diagnosis Comments Start Date Stop Date Sourc e Unknown Family Member Family history of Heart trouble [facility] Unknown Family Member Family history of hypertension Family [facility] Unknown Family Member Family history of mental disorder Family History [facility] Social History Social Habit Start Date Stop Date Quantity Comments Source ASSERTION Not [facility] - External History of tobacco use Passive smoker Anat boateng - External Sexual orientation K wojciech [facility] - External Alcoholic beverage intake 2024-08-30 00:00:00 2024-08-30 00:00:00 .29 /d [facility] - External History of Social function 2024-08-30 00:00:00 2024-08-30 00:00:00 [facility] - External Alcohol Comment 2024-05-22 00:00:00 2024-05-22 00:00:00 socially [facility] - Xavi Sex 2024-01-18 21:27:43 2024-01-18 21:27:43 Female (finding) [facility] Alcohol intake 2023-11-30 00:00:00 2023-11-30 00:00:00 Ex-drinker (finding) [facility] Exposure to SARS-CoV-2 (event) 2023-02-03 00:00:00 2023-02-13 19:59:00 Not sure [facility] Tobacco use and exposure 2022-09-27 00:00:00 2022-09-27 00:00:00 Smokeless tobacco non-user [facility] Sex assigned at 1995 00:00:00 1995 00:00:00 [facility] Smoking Status Start Date Stop Date Source Tobacco smoking consumption unknown [facility] Never smoked tobacco [facility] Medications Ordered Medication Name Filled Medication Name Start Date Stop Date Current Medication? Ordering Clinician Indication Dosage Frequency Signature (SIG) Comments Components Source Meloxicam 15 MG oral Tablet 2023-10 00:00: 00 Yes [id number] 15mg QD Take 1 tablet (15 mg total) by mouth daily Take with Meals, STOP IF UPSET STOMACH. [facility]at [facility] Gabapentin 100 MG oral Capsule 2023-10 00:00: 00 Yes [id number] 100mg Q.[id number] 3D Take 1 capsule (100 mg total) by mouth 3 times daily. [facility]at [facility] Phentermine HCl 37.5 MG oral Tablet 2023-10 10:15: 05 07-10 00:00 :00 No Take by mouth. [facility]at [facility] methylPREDN ISolone 4 MG oral Tablet Therapy Pack 2023-10 00:00: 00 08-30 00:00 :00 No [id number] 1{aldair} Take 1 aldair by mouth See Admin Instructio ns Use as directed. [facility] Azithromyci n 250 MG oral Tablet 2023-10 00:00: 00 07-16 04:59 :00 No [id number] Take 2 tablets by mouth on day 1 then 1 tablet by mouth daily for 4 days thereafter .. [facility]at [facility] ketorolac (TORADOL) injection 15 mg 07-04 01:32: 00 07-04 01:44 :00 No 15mg 15 mg, Slow IV Push, ONCE, 1 dose, On Tue07/03/24 at 2044, [facility] bromphenira mine-pseudo ephedrine-D M (BROMFED DM) 2-30-10 mg/5 mL syrup 06-28 00:00: 00 07-09 04:59 :00 No [id number] 10mL Take 10 mL by mouth 4 (four) times daily for 10 days. [facility] Phentermine HCl 37.5 MG oral Tablet 06-27 00:00: 00 Yes [id number] 37.5mg Take 1 tablet (37.5 mg total) by mouth every morning (before breakfast) . [facility]at [facility] codeine-gua ifenesin (ROBITUSSIN AC) 10-100 mg/5 mL oral solution 10 mL 06-26 01:45: 00 06-26 01:54 :00 No 10mL 10 mL, Oral, ONCE, 1 dose, On Tue06/25/24 at 2044, [facility] Pseudoeph-B romphen-DM 30-2-10 MG/5ML oral Syrup 06-25 00:00: 00 08-30 00:00 :00 No 5mL Q.25D Take 5 mL by mouth 4 times daily as needed. [facility]at [facility] guaiFENesin -Codeine 100-10 MG/5ML oral Solution 06-25 00:00: 00 07-03 04:59 :00 No 5mL Q.25D Take 5 mL by mouth every 6 hours as needed. [facility]at [facility] FLUTICASONE PROPIONATE, NASAL, 50 MCG/ACT nasal Suspension 06-12 00:00: 00 Yes [id number] 50ug QD Use 1 spray (50 mcg total) in each nostril daily. [facility] Albuterol HFA 108 (90 Base) MCG/ACT IN AERS 06-12 00:00: 00 Yes [id number] 2{puff} Q.25D Inhale 2 puffs into the lungs every 6 hours as needed for wheezing or shortness of breath. [facility] Benzonatate 200 MG oral Capsule 06-12 00:00: 00 08-30 00:00 :00 No [id number] 200mg Q.[id number] 3D Take 1 capsule (200 mg total) by mouth 3 times daily as needed for cough. [facility] Azelastine HCl 0.1 % nasal Solution 06-12 00:00: 00 08-30 00:00 :00 No [id number] 2 sprays in each nostril bid prn for congestion . [facility] Meloxicam 15 MG oral Tablet 06-06 00:00: 00 08-30 00:00 :00 No 15mg QD Take 1 tablet (15 mg total) by mouth daily Take with Meals, STOP IF UPSET STOMACH. [facility]at [facility] Famotidine (PEPCID) 20 MG oral tablet 05-30 00:00: 00 Yes [id number] 20mg Q.5D Take 1 tablet (20 mg total) by mouth 2 times daily. [facility] Ondansetron HCl 4 MG oral Tablet 05-30 00:00: 00 06-27 00:00 :00 No [id number] 8mg Q.[id number] 3D Take 2 tablets (8 mg total) by mouth every 8 hours as needed for nausea. [facility] Trazodone HCl 50 MG oral Tablet 05-22 15:17: 13 05-22 00:00 :00 No every 24 hours. Anat chan Levonorgest -Eth Estrad 91-Day (Simpesse) 0.15-0.03 &0.01 MG oral Tablet 05-22 15:16: 48 05-22 00:00 :00 No Simpesse Anat chan Naproxen 500 MG oral Tablet 05-22 15:16: 27 05-22 00:00 :00 No Take by mouth. Anat chan Levonorgest -Eth Estrad -Day (Simpesse) 0.15-0.03 &0.01 MG oral Tablet 05-22 15:16: 18 05-22 00:00 :00 No Simpesse Anat chan Fluoxetine HCl 40 MG oral Capsule 05-22 15:16: 00 05-22 00:00 :00 No 40mg 1 capsule (40 mg total) every 24 hours. [facility]at [facility] busPIRone HCl 10 MG oral Tablet 05-22 15:15: 54 05-22 00:00 :00 No 10mg Q.5D Take 1 tablet (10 mg total) by mouth 2 times daily. [facility]at [facility] ACETAMINOPH EN-CODEINE OR 05-22 15:15: 38 05-22 00:00 :00 No Take by mouth. [facility] Phentermine HCl 15 MG oral Capsule 05-22 00:00: 00 06-27 00:00 :00 No [id number] 15mg Take 1 capsule (15 mg total) by mouth every morning. [facility] Ketorolac Tromethamin e 10 MG oral Tablet 05-22 00:00: 00 06-06 00:00 :00 No [id number] 10mg Q.25D Take 1 tablet (10 mg total) by mouth every 6 hours as needed for pain. [facility]at chan Norgestimat e-Eth Estradiol (Sprintec 28) 0.25-35 MG-MCG oral Tablet 05-18 00:00: 00 Yes [id number] 100 1{tbl} QD Take 1 tablet by mouth daily. [facility]at [facility] ketorolac (TORADOL) injection 30 mg 05-13 06:15: 00 05-13 06:15 :00 No 30mg 30 mg, Intramuscu lar, ONCE, 1 dose, On [place] 05/13/24 at 0115, Routine [facility] Azelastine HCl 0.1 % nasal Solution 05-10 00:00: 00 05-22 00:00 :00 No [id number] 1{spray } Q.5D Use 1 spray in each nostril 2 times daily. [facility]at [facility] Pseudoeph-B romphen-DM 30-2-10 MG/5ML oral Syrup 05-10 00:00: 00 05-22 00:00 :00 No [id number] 10mL Q.25D Take 10 mL by mouth 4 times daily as needed. [facility]at [facility] dexamethaso ne (DECADRON PHOSPHATE) injection 10 mg 10-14 05:00: 00 10-14 04:06 :00 No 10mg 10 mg, Intramuscu lar, ONCE, 1 dose, On [place] 10/13/23 at 2300, Routine [facility] ketorolac (TORADOL) injection 30 mg 10-14 05:00: 00 10-14 04:07 :00 No 30mg 30 mg, Intramuscu lar, ONCE, 1 dose, On [place] 10/13/23 at 2300, Routine [facility] gabapentin (NEURONTIN) capsule 300 mg 10-14 04:00: 00 10-14 04:07 :00 No 300mg 300 mg, Oral, ONCE, 1 dose, On [place] 10/13/23 at 2200, ARVIN [facility] methylPREDN ISolone 4 mg tablets 10-14 00:00: 00 Yes [id number] Take by mouth SEE-INSTRU CTIONS. follow package directions [facility] Gabapentin 300 MG oral Capsule 10-13 00:00: 00 07-10 00:00 :00 No 300mg Q.[id number] 3D Take 1 capsule (300 mg total) by mouth 3 times daily as needed. Anat [facility] Ketorolac Tromethamin e 10 MG oral Tablet 10-13 00:00: 00 05-22 00:00 :00 No 10mg Q.25D Take 1 tablet (10 mg total) by mouth every 6 hours as needed. Anat chan methocarbam oL 750 mg tablet 10-13 00:00: 00 10-17 05:59 :00 No [id number] 750mg Take 1 tablet by mouth 4 (four) times daily for 3 days. [facility] azithromyci n 500 mg tablet 2022-10 00:00: 00 10-03 05:59 :00 No [id number] 500mg Take 1 tablet by mouth in the morning for 5 days. [facility] dexamethaso ne sod phos PF injection 10 mg 2022-10 06:00: 00 09-04 05:04 :00 No 10mg 10 mg, Intramuscu lar, ONCE, 1 dose, On 09/04/23 at 0000, Routine [facility] ipratropium -albuteroL (DUONEB) 0.5 mg-3 mg(2.5 mg base)/3 mL nebulizer solution 3 mL 2022-10 05:45: 00 09-04 05:03 :00 No 3mL 3 mL, Inhalation , ONCE NOW, 1 dose, On 09/03/23 at 2345, Routine [facility] benzonatate 100 mg capsule 2022-10 00:00: 00 Yes [id number] 200mg Take 2 capsules by mouth 3 (three) times daily as needed for Cough. [facility] Albuterol (PROVENTIL) (2.5 MG/3ML) 0.083% inhalation Inhalant Solution 2022-10 00:00: 00 Yes 2.5mg Q4H Inhale 2.5 mg into the lungs every 4 (four) hours. [facility]at chan predniSONE 20 mg tablet 2022-10 00:00: 00 09-12 05:59 :00 No [id number] 20mg Take 1 tablet by mouth in the morning for 7 days. [facility] acetaminoph en (TYLENOL) tablet 650 mg 2022-10 17:30: 00 08-29 16:57 :00 No 650mg 650 mg, Oral, ONCE, 1 dose, On Tue08/29/23 at 1130, [facility] ketorolac (TORADOL) injection 60 mg 2022-10 17:30: 00 08-29 16:56 :00 No 60mg 60 mg, Intramuscu lar, ONCE, 1 dose, On Tue08/29/23 at 1130, [facility] famotidine (PEPCID AC) tablet 40 mg 2022-10 16:32: 00 08-29 16:56 :00 No 40mg 40 mg, Oral, ONCE, 1 dose, On Tue08/29/23 at 1045, [facility] ibuprofen 800 mg tablet 2022-10 00:00: 00 Yes [id number] 800mg Take 1 tablet by mouth every 6 (six) hours as needed for Pain (scale 4-6) or Temp > 38.5 C. [facility] benzonatate 100 mg capsule 2022-10 00:00: 00 Yes [id number] 100mg Take 1 capsule by mouth 3 (three) times daily as needed for Cough. [facility] Oseltamivir Phosphate 75 MG oral Capsule 2022-10 00:00: 00 05-22 00:00 :00 No 75mg Q.5D Take 1 capsule (75 mg total) by mouth 2 times daily. [facility] cyclobenzap rine 10 mg tablet 03-29 00:00: 00 Yes [facility] azithromyci n 250 mg tablet - 00:00: 00 09-03 00:00 :00 No [id number] Take 2 tablets on day 1 and 1 tablet on days 2-5. [facility] etonogestre L (NEXPLANON) implant 68 mg 11-05 18:00: 00 11-05 17:05 :00 No [id number] 68mg [facility] phentermine HCl (PHENTERMIN E ORAL) 10-21 10:43: 33 Yes Take by mouth. [facility] fexofenadin e HCl (MAGNOLIA ALLERGY ORAL) 2021-10 16:51: 23 Yes [facility] vitamin w/FA tablet 2021-10 00:00: 00 11-05 00:00 :00 No [id number] 102 1{tbl} Take 1 tablet by mouth in the morning. [facility] docusate 100 mg capsule 2021-10 00:00: 00 11-05 00:00 :00 No [id number] 102 200mg Take 2 capsules by mouth once daily as needed for Constipati on. [facility] ferrous sulfate 325 mg (65 mg iron) tablet 2021-10 00:00: 00 11-05 00:00 :00 No [id number] 102 325mg Take 1 tablet by mouth in the morning and 1 tablet in the evening. [facility] ibuprofen 600 mg tablet 2021-10 00:00: 00 11-05 00:00 :00 No [id number] 102 600mg Take 1 tablet by mouth every 6 (six) hours as needed (Pain). Take with food or milk. [facility] norethindro ne 0.35 mg tablet 2021-10 00:00: 00 11-05 00:00 :00 No [id number] 102 1{tbl} Take 1 tablet by mouth in the morning. [facility] rho(D) immune globulin (RHOGAM) syringe 300 mcg 2021-10 20:35: 22 Yes 300ug 300 mcg, Intramuscu lar, ONCE, For 1 dose, Conditiona l, Routine [facility] HYDROcodone -acetaminop hen (NORCO 5) 5-325 mg tablet 1 tablet 2021-10 20:35: 02 Yes 1{tbl} 1 tablet, Oral, Q6HPRN, Starting on Tue09/27/22 at 1435, Until Discontinu ed, Routine, Pain (scale 7-10) [facility] ibuprofen (IBU) tablet 600 mg 2021-10 20:35: 02 Yes 600mg 600 mg, Oral, Q6HPRN, Starting on Tue09/27/22 at 1435, Until Discontinu ed, Routine, Pain (scale 4-6) [facility] acetaminoph en (TYLENOL) tablet 650 mg 2021-10 20:35: 02 Yes 650mg 650 mg, Oral, Q6HPRN, Starting on Tue09/27/22 at 1435, Until Discontinu ed, Routine, Pain (scale 1-3) [facility] diphenhydrA MINE (BENADRYL) tablet 25 mg 2021-10 20:35: 02 Yes 25mg 25 mg, Oral, Q6HPRN, Starting on Tue09/27/22 at 1435, Until Discontinu ed, Routine, Sleep, Itching [facility] ondansetron (ZOFRAN (PF)) injection 4 mg 2021-10 20:35: 02 Yes 4mg 4 mg, Slow IV Push, Q8HPRN, Starting on Tue09/27/22 at 1435, Until Discontinu ed, Routine, Nausea and Vomiting (N/V) [facility] simethicone (GAS RELIEF (SIMETHICON E)) chewable tablet 160 mg 2021-10 20:35: 02 Yes 160mg 160 mg, Oral, PC+HSPRN, Starting on Tue09/27/22 at 1435, Until Discontinu ed, Routine, Gas [facility] docusate (COLACE) capsule 200 mg 2021-10 20:35: 02 Yes 200mg 200 mg, Oral, QDAILYPRN, Starting on Tue09/27/22 at 1435, Until Discontinu ed, Routine, Constipati on [facility] magnesium hydroxide (MILK OF MAGNESIA) 400 mg/5 mL suspension 30 mL 2021-10 20:35: 02 Yes 30mL 30 mL, Oral, QDAILYPRN, Starting on Tue09/27/22 at 1435, Until Discontinu ed, Routine, Constipati on [facility] benzocaine- menthol (DERMOPLAST ) 20-0.5 % topical spray 2021-10 20:35: 02 Yes Topical, PRN, Starting on Tue09/27/22 at 1435, Until Discontinu ed, Routine, Perineum discomfort [facility] witch Monica (TUCKS) 50 % topical pad 2021-10 20:34: 48 Yes Topical, Q4HPRN, Starting on Tue09/27/22 at 1434, Until Discontinu ed, Routine, rectal/hem orrhoidal pain [facility] oxytocin (PITOCIN) 30 units in NS 500 mL IV infusion 2021-10 20:14: 48 09-27 20:34 :59 No 600mL/h 600 mL/hr, IV Infusion, PRN, For post delivery uterine atony., Starting on Tue09/27/[address] at 600 mL/hr for 1 hr then 150 mL/hr for 1 hr.
[facility] oxytocin (PITOCIN) 30 units in NS 500 mL IV infusion 2021-10 20:14: 48 09-27 20:34 :59 No 300mL/h 300 mL/hr, IV Infusion, SEE-INSTRU CTIONS, Starting on Tue09/27/[address] at 300 mL/hr for 1 hr then 150 mL/hr for 1 hr. & nbsp; For post delivery uterotonic
[facility] PIB fentaNYL-ro pivacaine 2 mcg/mL-0.1 % (PF) in NS 200 mL epidural infusion RTU 2021-10 17:25: 00 09-27 20:21 :39 No Epidural, CONTINUOUS PRN, Starting on Tue09/27/22 at 1125, Until Tue09/27/22 at 1421, Routine, Intra-op [facility] lidocaine-e pinephrine (XYLOCAINE W/EPINEPHRI NE) 2 %-1:200,000 injection 2021-10 17:22: 00 09-27 20:21 :39 No Intravenou s, ONCE INTRA PROCEDURE, Starting on Tue09/27/22 at 1122, Until Tue09/27/22 at 1421, Routine, [facility]% (XYLOCAINE) 100 mg/10 mL (1 %) injection 2021-10 17:17: 00 09-27 20:21 :39 No Infiltrati on, ONCE INTRA PROCEDURE, Starting on Tue09/27/22 at 1117, Until Tue09/27/22 at 1421, Routine, Intra-op [facility] esomeprazol e magnesium (NEXIUM ORAL) 2021-10 14:16: 31 Yes Take by mouth. [facility] acetaminoph en 325 mg Cap 2021-10 14:16: 31 Yes Take by mouth. [facility] proMETHazin e (PHENERGAN) 25 mg in NaCl 0.9% (NS) 50 mL IV piggyback 2021-10 11:00: 00 09-27 22:13 :26 No 25mg 25 mg, IV Piggyback, Q4HPRN, Starting on Tue09/27/22 at 0500, Until Tue09/27/22 at 1613, Routine, Nausea and Vomiting (N/V) [facility] FENTanyl PF (SUBLIMAZE (PF)) injection 100 mcg 2021-10 11:00: 00 09-27 22:13 :26 No 100ug 100 mcg, Slow IV Push, Q1HPRN, Starting on Tue09/27/22 at 0500, Until Tue09/27/22 at 1613, Routine, Pain (scale 7-10) [facility] clindamycin in 5 % dextrose (CLEOCIN) 900 mg/50 mL IV piggyback RTU 900 mg 2021-10 11:00: 00 09-27 22:13 :32 No 900mg 900 mg, IV Piggyback, Q8H ABX, 6 doses, First dose on Tue09/27/22 at 0500, Last dose on Tue09/28/22 at 2100, Administer over 30 Minutes, 50 mL
Reas on for Anti-Infec tive: Documented Infection< br>Documen vonda Infection Site: Pelvic
Duration of Therapy: Other (see Comments)< br>Restric vonda use approved by: [employer]
education faculty member approving Restricted medication : JOSETTE CHEUNG [facility] oxytocin (PITOCIN) 30 units in NS 500 mL IV infusion 2021-10 11:00: 00 09-27 22:13 :32 No 2mU/min at 2-40 mL/hr, IV Infusion, TITRATE, Starting on Tue09/27/22 at 0500, Until Tue09/27/22 at 1613, ARVIN [facility] lactated ringers IV infusion 500 mL 2021-10 10:29: 52 09-27 22:13 :32 No 500mL at 999 mL/hr, 500 mL, IV Infusion, PRN - SEE INSTRUCTIO NS, Starting on Tue09/27/22 at 0429, Until Tue09/27/22 at 1613, Routine [facility] D5W-LR IV infusion 1,000 mL 2021-10 10:29: 52 09-27 22:13 :32 No 1000mL at 1-125 mL/hr, IV Infusion, TITRATE, Starting on Tue09/27/22 at 0429, Until Tue09/27/22 at 1613, Routine [facility] acetaminoph en 325 mg Cap 2021-10 09:18: 33 Yes Take by mouth. [facility] guaifenesin (MUCINEX ORAL) 2021-10 09:18: 33 Yes Take by mouth. [facility] esomeprazol e magnesium (NEXIUM ORAL) 2021-10 16:15: 19 Yes Take by mouth. [facility] acetaminoph en 325 mg Cap 2021-10 16:15: 19 Yes Take by mouth. [facility] esomeprazol e magnesium (NEXIUM ORAL) 2021-10 11:33: 58 Yes Take by mouth. [facility] acetaminoph en 325 mg Cap 2021-10 11:33: 58 Yes Take by mouth. [facility] esomeprazol e magnesium (NEXIUM ORAL) 2021-10 10:48: 25 Yes Take by mouth. [facility] acetaminoph en 325 mg Cap 2021-10 10:48: 25 Yes Take by mouth. [facility] esomeprazol e magnesium (NEXIUM ORAL) 2021-10 21:40: 31 Yes Take by mouth. [facility] acetaminoph en 325 mg Cap 2021-10 21:40: 31 Yes Take by mouth. [facility] esomeprazol e magnesium (NEXIUM ORAL) 2021-10 23:12: 38 Yes Take by mouth. [facility] acetaminoph en 325 mg Cap 2021-10 23:12: 38 Yes Take by mouth. [facility] esomeprazol e magnesium (NEXIUM ORAL) 2021-10 07:10: 48 Yes Take by mouth. [facility] acetaminoph en 325 mg Cap 2021-10 07:10: 48 Yes Take by mouth. [facility] acetaminoph en 325 mg Cap 2021-10 10:43: 38 Yes Take by mouth. [facility] fexofenadin e HCl (MAGNOLIA ALLERGY ORAL) 2021-10 10:43: 38 Yes [facility] metroNIDAZO LE (FLAGYL) tablet 500 mg 2021-10 01:58: 00 08-23 02:01 :00 No 500mg 500 mg, Oral, ONCE NOW, 1 dose, On 08/22/22 at 2000, Routine
Reason for Anti-Infec tive: Documented Infection< br>Documen vonda Infection Site: Pelvic
Duration of Therapy: 7 days [facility] esomeprazol e magnesium (NEXIUM ORAL) 2021-10 20:18: 11 Yes Take by mouth. [facility] acetaminoph en (TYLENOL) 325 mg Cap 2021-10 20:18: 11 Yes Take by mouth. [facility] metroNIDAZO LE 500 mg tablet 2021-10 00:00: 00 Yes [id number] 500mg Take 1 tablet by mouth every 12 (twelve) hours. [facility] esomeprazol e magnesium (NEXIUM ORAL) 2021-10 20:28: 12 Yes Take by mouth. [facility] acetaminoph en (TYLENOL) 325 mg Cap 2021-10 20:28: 12 Yes Take by mouth. [facility] esomeprazol e magnesium (NEXIUM ORAL) 2021-10 16:41: 09 Yes Take by mouth. [facility] acetaminoph en (TYLENOL) 325 mg Cap 2021-10 16:41: 09 Yes Take by mouth. [facility] fexofenadin e HCl (MAGNOLIA ALLERGY ORAL) 2021-10 08:36: 33 Yes [facility] NaCl 0.9% (NS) bolus infusion 1,000 mL 2021-10 13:45: 00 07-31 14:26 :00 No 1000mL at 999 mL/hr, 1,000 mL, IV Piggyback, ONCE, 1 dose, On 07/31/22 at 0845, STAT [facility] esomeprazol e magnesium (NEXIUM ORAL) 2021-10 13:26: 52 Yes Take by mouth. [facility] acetaminoph en (TYLENOL) 325 mg Cap 2021-10 13:26: 52 Yes Take by mouth. [facility] ondansetron 8 mg disintegrat ing tablet 2021-10 00:00: 00 Yes [id number] 8mg Take 1 tablet by mouth every 8 (eight) hours as needed for Nausea and Vomiting (N/V). [facility] fluoxetine HCl (FLUOXETINE ORAL) 2021-10 0-14 13:21: 03 07-23 00:00 :00 No 20mg Take 20 mg by mouth daily. [facility] Nitrofurant oin&Nit. Macrocryst (MACROBID) 100 mg capsule 100 mg 2021-10 0-12 16:15: 00 07-21 15:54 :00 No 100mg 100 mg, Oral, ONCE, 1 dose, On Tue07/21/22 at 1115, Routine
Reason for Anti-Infec tive: Empiric Therapy for Suspected Infection< br>Empiric Therapy Site: Urine
D uration of therapy: 72 hours [facility] fluoxetine HCl (FLUOXETINE ORAL) 2021-10 11:02: 42 Yes 20mg Take 20 mg by mouth daily. [facility] Nitrofurant oin&Nit. Macrocryst 100 mg capsule 2021-10 00:00: 00 07-30 00:00 :00 No [id number] 100mg Take 1 capsule by mouth in the morning and 1 capsule in the evening. [facility] fluoxetine HCl (FLUOXETINE ORAL) 2021-10 11:05: 17 Yes 20mg Take 20 mg by mouth daily. [facility] montelukast 10 mg tablet 04-30 00:00: 00 Yes [id number] 10mg Take 1 tablet by mouth every evening. [facility] buPROPion SR (WELLBUTRIN SR) 100 mg SR tablet 04-30 00:00: 00 09-03 00:00 :00 No [id number] 100mg Take 1 tablet by mouth in the morning and 1 tablet in the evening. [facility] ondansetron (ZOFRAN) 8 mg tablet 04-30 00:00: 00 07-30 00:00 :00 No [id number] 8mg Take 1 tablet by mouth every 8 (eight) hours as needed for Nausea and Vomiting (N/V). [facility] albuterol 90 mcg/actuati on inhaler 04-07 00:00: 09-03 00:00 :00 No [id number] 2{puff} Inhale 2 Puffs every 6 (six) hours as needed for Wheezing or Shortness of Breath. [facility] aspirin 81 mg EC tablet 04-07 00:00: 00 09-28 00:00 :00 No [id number] 81mg Take 1 tablet by mouth daily. [facility] buPROPion SR (WELLBUTRIN SR) 100 mg SR tablet 04-07 00:00: 00 04-28 00:00 :00 No [id number] 100mg Take 1 tablet by mouth 2 (two) times daily. [facility] montelukast 10 mg tablet 04-07 00:00: 00 04-28 00:00 :00 No [id number] 10mg Take 1 tablet by mouth every evening. [facility] guaiFENesin 400 mg tablet 04-04 00:00: 00 07-23 00:00 :00 No [id number] 400mg Take 1 tablet by mouth every 4 (four) hours as needed for Cough. [facility] ondansetron (ZOFRAN) 8 mg tablet 03-01 00:00: 00 04-28 00:00 :00 No [id number] 8mg Take 1 tablet by mouth every 8 (eight) hours as needed for Nausea and Vomiting (N/V). [facility] albuterol 90 mcg/actuati on inhaler 02-21 00:00: 00 07-23 00:00 :00 No [id number] 2{puff} Inhale 2 Puffs every 4 (four) hours as needed for Wheezing or Shortness of Breath. [facility] fluoxetine HCl (FLUOXETINE ORAL) 02-02 09:08: 33 Yes 20mg Take 20 mg by mouth daily. [facility] metoclopram demetris HCl 10 mg tablet 02-02 00:00: 00 07-23 00:00 :00 No [id number] Take one tablet every 8 hour as needed for nausea in [facility] 26-iron ps-folic-dh a (VITAFOL-ON E) 29 mg iron- 1 mg-200 mg per capsule 01-26 00:00: 00 07-23 00:00 :00 No [id number] 1{capsu le} Take 1 capsule by mouth daily for 180 days. [facility] 26-iron ps-folic-dh a (VITAFOL-ON E) 29 mg iron- 1 mg-200 mg per capsule 01-26 00:00: 00 07-23 00:00 :00 No [id number] 1{capsu le} Take 1 capsule by mouth daily for 180 days. [facility] Trazodone HCl 50 MG Trazodone HCl 50 MG 03-05 00:00: 00 No 1{table t_at_be dtime_a s_neede d} QD Trazodone HCl 50 MG busPIRone 5 mg tablet 03-27 00:00: 00 01-26 00:00 :00 No [id number] 5mg Take 1 tablet by mouth 2 (two) times daily. [facility] NUVARING 0.12-0.015 mg/24 hr vaginal insert 02-28 00:00: 00 09-30 00:00 :00 No [id number] 1{each} Insert 1 Each into vagina once every month. Insert vaginally and leave in place for 3 consecutiv e weeks, then remove for 1 week. [facility] vitamin w/FA tablet 01-31 00:00: 00 01-26 00:00 :00 No [id number] 1{tbl} Take 1 tablet by mouth daily. [facility] docusate calcium 240 mg capsule 24 00:00: 00 01-26 00:00 :00 No [id number] 240mg Take 1 capsule by mouth once daily as needed for Constipati on. [facility] ferrous sulfate 325 mg (65 mg iron) tablet 01-31 00:00: 00 01-26 00:00 :00 No [id number] 325mg Take 1 tablet by mouth 2 (two) times daily. [facility] ibuprofen 600 mg tablet 24 00:00: 00 01-26 00:00 :00 No [id number] 600mg Take 1 tablet by mouth every 6 (six) hours as needed (Pain). Take with food or milk. [facility] Flonase Flonase 2017-10 00:00: 00 Yes Soledad Gardner 2 sprays each nostril prn [facility] Flonase 50 MCG/ACT Flonase 50 MCG/ACT 2017-10 00:00: 00 No QD Flonase 50 MCG/ACT Flonase 50 MCG/ACT Flonase 50 MCG/ACT 2017-10 00:00: 00 No QD Flonase 50 MCG/ACT Flonase 50 MCG/ACT Flonase 50 MCG/ACT 2017-10 00:00: 00 No QD Flonase 50 MCG/ACT DiazePAM 2 MG Oral Tablet DiazePAM 2 MG Oral Tablet 2017-10 00:00: 00 Yes JOEL WILLIAM M.D. 1 hour PO before [facility] Yes Soledad Gardner not defined [facility] FLUoxetine HCl 20 MG FLUoxetine HCl 20 MG No FLUoxetine HCl 20 MG Simpesse Simpesse No Simpesse FLUoxetine HCl 40 MG FLUoxetine HCl 40 MG No 1{capsu le} QD FLUoxetine HCl 40 MG Simpesse Simpesse No Simpesse busPIRone HCl 10 MG busPIRone HCl 10 MG No busPIRone HCl 10 MG FLUoxetine HCl 40 MG FLUoxetine HCl 40 MG No FLUoxetine HCl 40 MG traZODone HCl 50 MG traZODone HCl 50 MG No 1{table t_at_be dtime_a s_neede d} QD traZODone HCl 50 MG FLUoxetine HCl 20 MG FLUoxetine HCl 20 MG No FLUoxetine HCl 20 MG Simpesse Simpesse No Simpesse BusPIRone HCl 10 MG BusPIRone HCl 10 MG No BusPIRone HCl 10 MG Fluoxetine HCl 20 MG Fluoxetine HCl 20 MG No Fluoxetine HCl 20 MG Tylenol with Codeine #3 TABS Tylenol with Codeine #3 TABS Yes [facility] Naproxen TABS Naproxen TABS Yes [facility] Immun[facility] Ordered Immunization Name Filled Immunization Name Date Status Comments Source Influenza Virus Vaccine Quad IM, Preserv and ABX Free 6 MO-64 YRS 2022-07-23 00:00:00 Completed [facility] 2022-07-23 00:00:00 Completed [facility] Influenza Virus Vaccine Quad IM, Preserv and ABX Free 6 MO-64 YRS 2022-07-23 00:00:00 Completed [facility] 2022-07-23 00:00:00 Completed [facility] Influenza Virus Vaccine Quad IM, Preserv and ABX Free 6 MO-64 YRS 2022-07-23 00:00:00 Completed [facility] 2022-07-23 00:00:00 Completed [facility] Influenza Virus Vaccine Quad IM, Preserv and ABX Free 6 MO-64 YRS 2022-07-23 00:00:00 Completed [facility] 2022-07-23 00:00:00 Completed [facility] Influenza Virus Vaccine Quad IM, Preserv and ABX Free 6 MO-64 YRS 2022-07-23 00:00:00 Completed [facility] 2022-07-23 00:00:00 Completed [facility] Influenza Virus Vaccine Quad IM, Preserv and ABX Free 6 MO-64 YRS 2022-07-23 00:00:00 Completed [facility] 2022-07-23 00:00:00 Completed [facility] Influenza Virus Vaccine Quad IM, Preserv and ABX Free 6 MO-64 YRS 2022-07-23 00:00:00 Completed [facility] 2022-07-23 00:00:00 Completed [facility] Influenza Virus Vaccine Quad IM, Preserv and ABX Free 6 MO-64 YRS 2022-07-23 00:00:00 Completed [facility] 2022-07-23 00:00:00 Completed [facility] Influenza Virus Vaccine Quad IM, Preserv and ABX Free 6 MO-64 YRS 2022-07-23 00:00:00 Completed [facility] TDAP 2022-07-23 00:00:00 Completed [facility] Influenza Virus Vaccine Quad IM, Preserv and ABX Free 6 MO-64 YRS 2022-07-23 00:00:00 Completed [facility] TDAP 2022-07-23 00:00:00 Completed [facility] Influenza Virus Vaccine Quad IM, Preserv and ABX Free 6 MO-64 YRS 2022-07-23 00:00:00 Completed [facility] 2022-07-23 00:00:00 Completed [facility] Influenza Virus Vaccine Quad IM, Preserv and ABX Free 6 MO-64 YRS 2022-07-23 00:00:00 Completed [facility] 2022-07-23 00:00:00 Completed [facility] Influenza Virus Vaccine Quad IM, Preserv and ABX Free 6 MO-64 YRS 2022-07-23 00:00:00 Completed [facility] 2022-07-23 00:00:00 Completed [facility] Influenza Virus Vaccine Quad IM, Preserv and ABX Free 6 MO-64 YRS 2022-07-23 00:00:00 Completed [facility] 2022-07-23 00:00:00 Completed [facility] Influenza Virus Vaccine Quad IM, Preserv and ABX Free 6 MO-64 YRS 2022-07-23 00:00:00 Completed [facility] 2022-07-23 00:00:00 Completed [facility] Influenza Virus Vaccine Quad IM, Preserv and ABX Free 6 MO-64 YRS 2022-07-23 00:00:00 Completed [facility] 2022-07-23 00:00:00 Completed [facility] Influenza Virus Vaccine Quad IM, Preserv and ABX Free 6 MO-64 YRS 2022-07-23 00:00:00 Completed [facility] 2022-07-23 00:00:00 Completed [facility] Influenza Virus Vaccine Quad IM, Preserv and ABX Free 6 MO-64 YRS 2022-07-23 00:00:00 Completed [facility] 2022-07-23 00:00:00 Completed [facility] Influenza Virus Vaccine Quad IM, Preserv and ABX Free 6 MO-64 YRS 2022-07-23 00:00:00 Completed [facility] 2022-07-23 00:00:00 Completed [facility] Influenza Virus Vaccine Quad IM, Preserv and ABX Free 6 MO-64 YRS 2022-07-23 00:00:00 Completed [facility] 2022-07-23 00:00:00 Completed [facility] Influenza Virus Vaccine Quad IM, Preserv and ABX Free 6 MO-64 YRS 2022-07-23 00:00:00 Completed [facility] 2022-07-23 00:00:00 Completed [facility] Influenza Virus Vaccine Quad IM, Preserv and ABX Free 6 MO-64 YRS 2022-07-23 00:00:00 Completed [facility] 2022-07-23 00:00:00 Completed [facility] Influenza Virus Vaccine Quad IM, Preserv and ABX Free 6 MO-64 YRS 2022-07-23 00:00:00 Completed [facility] 2022-07-23 00:00:00 Completed [facility] Influenza Virus Vaccine Quad IM, Preserv and ABX Free 6 MO-64 YRS 2022-07-23 00:00:00 Completed [facility] 2022-07-23 00:00:00 Completed [facility] Influenza Virus Vaccine Quad IM, Preserv and ABX Free 6 MO-64 YRS 2022-07-23 00:00:00 Completed [facility] 2022-07-23 00:00:00 Completed [facility] Influenza Virus Vaccine Quad IM, Preserv and ABX Free 6 MO-64 YRS 2022-07-23 00:00:00 Completed [facility] 2022-07-23 00:00:00 Completed [facility] Influenza Virus Vaccine Quad IM, Preserv and ABX Free 6 MO-64 YRS 2022-07-23 00:00:00 Completed [facility] 2022-07-23 00:00:00 Completed [facility] Influenza Virus Vaccine Quad IM, Preserv and ABX Free 6 MO-64 YRS 2022-07-23 00:00:00 Completed [facility] 2022-07-23 00:00:00 Completed [facility] Influenza Virus Vaccine Quad IM, Preserv and ABX Free 6 MO-64 YRS 2022-07-23 00:00:00 Completed [facility] 2022-07-23 00:00:00 Completed [facility] Influenza Virus Vaccine Quad IM, Preserv and ABX Free 6 MO-64 YRS 2022-07-23 00:00:00 Completed [facility] 2022-07-23 00:00:00 Completed [facility] Influenza Virus Vaccine Quad IM, Preserv and ABX Free 6 MO-64 YRS 2022-07-23 00:00:00 Completed [facility] 2022-07-23 00:00:00 Completed [facility] Influenza Virus Vaccine Quad IM, Preserv and ABX Free 6 MO-64 YRS 2022-07-23 00:00:00 Completed [facility] 2022-07-23 00:00:00 Completed [facility] Influenza Virus Vaccine Quad IM, Preserv and ABX Free 6 MO-64 YRS 2022-07-23 00:00:00 Completed [facility]AP 2022-07-23 00:00:00 Completed [facility] Influenza Virus Vaccine Quad IM, Preserv and ABX Free 6 MO-64 YRS 2022-07-23 00:00:00 Completed [facility] TDAP 2022-07-23 00:00:00 Completed [facility] Influenza Virus Vaccine Quad IM, Preserv and ABX Free 6 MO-64 YRS 2022-07-23 00:00:00 Completed [facility] TDAP 2022-07-23 00:00:00 Completed [facility] Influenza Virus Vaccine Quad IM, Preserv and ABX Free 6 MO-64 YRS 2022-07-23 00:00:00 Completed [facility] TDAP 2022-07-23 00:00:00 Completed [facility] Influenza Virus Vaccine Quad IM, Preserv and ABX Free 6 MO-64 YRS 2022-07-23 00:00:00 Completed [facility] TDAP 2022-07-23 00:00:00 Completed [facility] Influenza Virus Vaccine Quad IM, Preserv and ABX Free 6 MO-64 YRS 2022-07-23 00:00:00 Completed [facility] TDAP 2022-07-23 00:00:00 Completed [facility] Influenza Virus Vaccine Quad IM, Preserv and ABX Free 6 MO-64 YRS 2022-07-23 00:00:00 Completed [facility] TDAP 2022-07-23 00:00:00 Completed [facility] Influenza Virus Vaccine Quad IM, Preserv and ABX Free 6 MO-64 YRS 2022-07-23 00:00:00 Completed [facility] TDAP 2022-07-23 00:00:00 Completed [facility] Influenza Virus Vaccine Quad IM, Preserv and ABX Free 6 MO-64 YRS 2022-07-23 00:00:00 Completed [facility] TDAP 2022-07-23 00:00:00 Completed [facility] Influenza Virus Vaccine Quad IM, Preserv and ABX Free 6 MO-64 YRS 2022-07-23 00:00:00 Completed [facility] TDAP 2022-07-23 00:00:00 Completed [facility] Influenza Virus Vaccine Quad IM, Preserv and ABX Free 6 MO-64 YRS 2022-07-23 00:00:00 Completed [facility] TDAP 2022-07-23 00:00:00 Completed [facility] Influenza Virus Vaccine Quad IM, Preserv and ABX Free 6 MO-64 YRS (FLUCELVAX) 2022-07-23 00:00:00 Completed TDAP 2022-07-23 00:00:00 Completed Influenza Virus Vaccine 2021-07-31 00:00:00 Completed [facility] SARS-COV-2 COVID-19 OTIS/J&J VACCINE 2021-06-04 00:00:00 Completed [facility] SARS-COV-2 COVID-19 OTIS/J&J VACCINE 2021-06-04 00:00:00 Completed [facility] SARS-COV-2 COVID-19 OTIS/J&J VACCINE 2021-06-04 00:00:00 Completed [facility] SARS-COV-2 COVID-19 OTIS/J&J VACCINE 2021-06-04 00:00:00 Completed [facility] SARS-COV-2 COVID-19 OTIS/J&J VACCINE 2021-06-04 00:00:00 Completed [facility] SARS-COV-2 COVID-19 OTIS/J&J VACCINE 2021-06-04 00:00:00 Completed [facility] SARS-COV-2 COVID-19 OTIS/J&J VACCINE 2021-06-04 00:00:00 Completed [facility] SARS-COV-2 COVID-19 OTIS/J&J VACCINE 2021-06-04 00:00:00 Completed [facility] SARS-COV-2 COVID-19 OTIS/J&J VACCINE 2021-06-04 00:00:00 Completed [facility] SARS-COV-2 COVID-19 OTIS/J&J VACCINE 2021-06-04 00:00:00 Completed [facility] SARS-COV-2 COVID-19 OTIS/J&J VACCINE 2021-06-04 00:00:00 Completed [facility] SARS-COV-2 COVID-19 OTIS/J&J VACCINE 2021-06-04 00:00:00 Completed [facility] SARS-COV-2 COVID-19 OTIS/J&J VACCINE 2021-06-04 00:00:00 Completed [facility] SARS-COV-2 COVID-19 OTIS/J&J VACCINE 2021-06-04 00:00:00 Completed [facility] SARS-COV-2 COVID-19 OTIS/J&J VACCINE 2021-06-04 00:00:00 Completed [facility] SARS-COV-2 COVID-19 OTIS/J&J VACCINE 2021-06-04 00:00:00 Completed [facility] SARS-COV-2 COVID-19 OTIS/J&J VACCINE 2021-06-04 00:00:00 Completed [facility] SARS-COV-2 COVID-19 OTIS/J&J VACCINE 2021-06-04 00:00:00 Completed [facility] SARS-COV-2 COVID-19 OTIS/J&J VACCINE 2021-06-04 00:00:00 Completed [facility] SARS-COV-2 COVID-19 OTIS/J&J VACCINE 2021-06-04 00:00:00 Completed [facility] SARS-COV-2 COVID-19 OTIS/J&J VACCINE 2021-06-04 00:00:00 Completed [facility] SARS-COV-2 COVID-19 OTIS/J&J VACCINE 2021-06-04 00:00:00 Completed [facility] SARS-COV-2 COVID-19 OTIS/J&J VACCINE 2021-06-04 00:00:00 Completed [facility] SARS-COV-2 COVID-19 OTIS/J&J VACCINE 2021-06-04 00:00:00 Completed [facility] SARS-COV-2 COVID-19 OTIS/J&J VACCINE 2021-06-04 00:00:00 Completed [facility] SARS-COV-2 COVID-19 OTIS/J&J VACCINE 2021-06-04 00:00:00 Completed [facility] SARS-COV-2 COVID-19 OTIS/J&J VACCINE 2021-06-04 00:00:00 Completed [facility] SARS-COV-2 COVID-19 OTIS/J&J VACCINE 2021-06-04 00:00:00 Completed [facility] SARS-COV-2 COVID-19 OTIS/J&J VACCINE 2021-06-04 00:00:00 Completed [facility] SARS-COV-2 COVID-19 OTIS/J&J VACCINE 2021-06-04 00:00:00 Completed [facility] SARS-COV-2 COVID-19 OTIS/J&J VACCINE 2021-06-04 00:00:00 Completed [facility] SARS-COV-2 COVID-19 OTIS/J&J VACCINE 2021-06-04 00:00:00 Completed [facility] SARS-COV-2 COVID-19 OTIS/J&J VACCINE 2021-06-04 00:00:00 Completed [facility] SARS-COV-2 COVID-19 OTIS/J&J VACCINE 2021-06-04 00:00:00 Completed [facility] SARS-COV-2 COVID-19 OTIS/J&J VACCINE 2021-06-04 00:00:00 Completed [facility] SARS-COV-2 COVID-19 OTIS/J&J VACCINE 2021-06-04 00:00:00 Completed [facility] SARS-COV-2 COVID-19 OTIS/J&J VACCINE 2021-06-04 00:00:00 Completed [facility] SARS-COV-2 COVID-19 OTIS/J&J VACCINE 2021-06-04 00:00:00 Completed [facility] SARS-COV-2 COVID-19 OTIS/J&J VACCINE 2021-06-04 00:00:00 Completed [facility] SARS-COV-2 COVID-19 OTIS/J&J VACCINE 2021-06-04 00:00:00 Completed [facility] SARS-COV-2 COVID-19 OTIS/J&J VACCINE 2021-06-04 00:00:00 Completed [facility] SARS-COV-2 COVID-19 OTIS/J&J VACCINE 2021-06-04 00:00:00 Completed [facility] SARS-COV-2 COVID-19 OTIS/J&J VACCINE 2021-06-04 00:00:00 Completed [facility] SARS-COV-2 COVID-19 OTIS/J&J VACCINE 2021-06-04 00:00:00 Completed [facility] SARS-COV-2 COVID-19 OTIS/J&J VACCINE 2021-06-04 00:00:00 Completed [facility] SARS-COV-2 COVID-19 OTIS/J&J VACCINE 2021-06-04 00:00:00 Completed [facility] SARS-COV-2 COVID-19 OTIS/J&J VACCINE 2021-06-04 00:00:00 Completed [facility] SARS-COV-2 COVID-19 OTIS/J&J VACCINE 2021-06-04 00:00:00 Completed [facility] SARS-COV-2 COVID-19 OTIS/J&J VACCINE 2021-06-04 00:00:00 Completed [facility] SARS-COV-2 COVID-19 OTIS/J&J VACCINE 2021-06-04 00:00:00 Completed [facility] SARS-COV-2 COVID-19 OTIS/J&J VACCINE 2021-06-04 00:00:00 Completed [facility] SARS-COV-2 COVID-19 OTIS/J&J VACCINE 2021-06-04 00:00:00 Completed [facility] SARS-COV-2 COVID-19 OTIS/J&J VACCINE 2021-06-04 00:00:00 Completed [facility] SARS-COV-2 COVID-19 OTIS/J&J VACCINE 2021-06-04 00:00:00 Completed [facility] SARS-COV-2 COVID-19 OTIS/J&J VACCINE 2021-06-04 00:00:00 Completed [facility] SARS-COV-2 COVID-19 OTIS/J&J VACCINE 2021-06-04 00:00:00 Completed TDAP (ADACEL) VACCINE 2019-12-03 00:00:00 Completed [facility] TDAP (ADACEL) VACCINE 2019-12-03 00:00:00 Completed [facility] TDAP (ADACEL) VACCINE 2019-12-03 00:00:00 Completed [facility] TDAP (ADACEL) VACCINE 2019-12-03 00:00:00 Completed [facility] TDAP (ADACEL) VACCINE 2019-12-03 00:00:00 Completed [facility] TDAP (ADACEL) VACCINE 2019-12-03 00:00:00 Completed [facility] TDAP (ADACEL) VACCINE 2019-12-03 00:00:00 Completed [facility] TDAP (ADACEL) VACCINE 2019-12-03 00:00:00 Completed [facility] TDAP (ADACEL) VACCINE 2019-12-03 00:00:00 Completed [facility] TDAP (ADACEL) VACCINE 2019-12-03 00:00:00 Completed [facility] TDAP (ADACEL) VACCINE 2019-12-03 00:00:00 Completed [facility] TDAP (ADACEL) VACCINE 2019-12-03 00:00:00 Completed [facility] TDAP (ADACEL) VACCINE 2019-12-03 00:00:00 Completed [facility] TDAP (ADACEL) VACCINE 2019-12-03 00:00:00 Completed [facility] TDAP (ADACEL) VACCINE 2019-12-03 00:00:00 Completed [facility] TDAP (ADACEL) VACCINE 2019-12-03 00:00:00 Completed [facility] TDAP (ADACEL) VACCINE 2019-12-03 00:00:00 Completed [facility] TDAP (ADACEL) VACCINE 2019-12-03 00:00:00 Completed [facility] TDAP (ADACEL) VACCINE 2019-12-03 00:00:00 Completed [facility] TDAP (ADACEL) VACCINE 2019-12-03 00:00:00 Completed [facility] TDAP (ADACEL) VACCINE 2019-12-03 00:00:00 Completed [facility] TDAP (ADACEL) VACCINE 2019-12-03 00:00:00 Completed [facility] TDAP (ADACEL) VACCINE 2019-12-03 00:00:00 Completed [facility] TDAP (ADACEL) VACCINE 2019-12-03 00:00:00 Completed [facility] TDAP (ADACEL) VACCINE 2019-12-03 00:00:00 Completed [facility] TDAP (ADACEL) VACCINE 2019-12-03 00:00:00 Completed [facility] TDAP (ADACEL) VACCINE 2019-12-03 00:00:00 Completed [facility] TDAP (ADACEL) VACCINE 2019-12-03 00:00:00 Completed [facility] TDAP (ADACEL) VACCINE 2019-12-03 00:00:00 Completed [facility] TDAP (ADACEL) VACCINE 2019-12-03 00:00:00 Completed [facility] TDAP (ADACEL) VACCINE 2019-12-03 00:00:00 Completed [facility] TDAP (ADACEL) VACCINE 2019-12-03 00:00:00 Completed [facility] TDAP (ADACEL) VACCINE 2019-12-03 00:00:00 Completed [facility] TDAP (ADACEL) VACCINE 2019-12-03 00:00:00 Completed [facility] TDAP (ADACEL) VACCINE 2019-12-03 00:00:00 Completed [facility] TDAP (ADACEL) VACCINE 2019-12-03 00:00:00 Completed [facility] TDAP (ADACEL) VACCINE 2019-12-03 00:00:00 Completed [facility] TDAP (ADACEL) VACCINE 2019-12-03 00:00:00 Completed [facility] TDAP (ADACEL) VACCINE 2019-12-03 00:00:00 Completed [facility] TDAP (ADACEL) VACCINE 2019-12-03 00:00:00 Completed [facility] TDAP (ADACEL) VACCINE 2019-12-03 00:00:00 Completed [facility] TDAP (ADACEL) VACCINE 2019-12-03 00:00:00 Completed [facility] TDAP (ADACEL) VACCINE 2019-12-03 00:00:00 Completed [facility] TDAP (ADACEL) VACCINE 2019-12-03 00:00:00 Completed [facility] TDAP (ADACEL) VACCINE 2019-12-03 00:00:00 Completed [facility] TDAP (ADACEL) VACCINE 2019-12-03 00:00:00 Completed [facility] TDAP (ADACEL) VACCINE 2019-12-03 00:00:00 Completed [facility] TDAP (ADACEL) VACCINE 2019-12-03 00:00:00 Completed [facility] TDAP (ADACEL) VACCINE 2019-12-03 00:00:00 Completed [facility] TDAP (ADACEL) VACCINE 2019-12-03 00:00:00 Completed [facility] TDAP (ADACEL) VACCINE 2019-12-03 00:00:00 Completed [facility] TDAP (ADACEL) VACCINE 2019-12-03 00:00:00 Completed [facility] TDAP (ADACEL) VACCINE 2019-12-03 00:00:00 Completed [facility] TDAP (ADACEL) VACCINE 2019-12-03 00:00:00 Completed [facility] TDAP (ADACEL) VACCINE 2019-12-03 00:00:00 Completed [facility] TDAP (ADACEL) VACCINE 2019-12-03 00:00:00 Completed [facility] Adacel (Tdap) Adacel (Tdap) 2019-08-29 13:16:00 Completed [facility] Adacel (Tdap) Adacel (Tdap) 2019-08-29 13:16:00 Completed [facility] TDAP 2019-08-29 00:00:00 Completed [facility] TDAP 2019-08-29 00:00:00 Completed [facility] TDAP 2019-08-29 00:00:00 Completed [facility] TDAP 2019-08-29 00:00:00 Completed [facility] TDAP 2019-08-29 00:00:00 Completed [facility] TDAP 2019-08-29 00:00:00 Completed [facility] TDAP 2019-08-29 00:00:00 Completed [facility] TDAP 2019-08-29 00:00:00 Completed [facility] TDAP 2019-08-29 00:00:00 Completed [facility] TDAP 2019-08-29 00:00:00 Completed [facility] TDAP 2019-08-29 00:00:00 Completed [facility] TDAP 2019-08-29 00:00:00 Completed [facility] TDAP 2019-08-29 00:00:00 Completed [facility] TDAP 2019-08-29 00:00:00 Completed [facility] TDAP 2019-08-29 00:00:00 Completed [facility] TDAP 2019-08-29 00:00:00 Completed [facility] TDAP 2019-08-29 00:00:00 Completed [facility] TDAP 2019-08-29 00:00:00 Completed [facility] TDAP 2019-08-29 00:00:00 Completed [facility] TDAP 2019-08-29 00:00:00 Completed [facility] TDAP 2019-08-29 00:00:00 Completed [facility] TDAP 2019-08-29 00:00:00 Completed [facility] TDAP 2019-08-29 00:00:00 Completed [facility] TDAP 2019-08-29 00:00:00 Completed [facility] TDAP 2019-08-29 00:00:00 Completed [facility] TDAP 2019-08-29 00:00:00 Completed [facility] TDAP 2019-08-29 00:00:00 Completed [facility] TDAP 2019-08-29 00:00:00 Completed [facility] TDAP 2019-08-29 00:00:00 Completed [facility] TDAP 2019-08-29 00:00:00 Completed [facility] TDAP 2019-08-29 00:00:00 Completed [facility] TDAP 2019-08-29 00:00:00 Completed [facility] TDAP 2019-08-29 00:00:00 Completed [facility] TDAP 2019-08-29 00:00:00 Completed [facility] TDAP 2019-08-29 00:00:00 Completed [facility] TDAP 2019-08-29 00:00:00 Completed [facility] TDAP 2019-08-29 00:00:00 Completed Influenza Virus Vaccine Quad .5 mL IM 6+ MO 2019-08-02 00:00:00 Completed [facility] Influenza Virus Vaccine Quad .5 mL IM 6+ MO 2019-08-02 00:00:00 Completed [facility] Influenza Virus Vaccine Quad .5 mL IM 6+ MO 2019-08-02 00:00:00 Completed [facility] Influenza Virus Vaccine Quad .5 mL IM 6+ MO 2019-08-02 00:00:00 Completed [facility] Influenza Virus Vaccine Quad .5 mL IM 6+ MO 2019-08-02 00:00:00 Completed [facility] Influenza Virus Vaccine Quad .5 mL IM 6+ MO 2019-08-02 00:00:00 Completed [facility] Influenza Virus Vaccine Quad .5 mL IM 6+ MO 2019-08-02 00:00:00 Completed [facility] Influenza Virus Vaccine Quad .5 mL IM 6+ MO 2019-08-02 00:00:00 Completed [facility] Influenza Virus Vaccine Quad .5 mL IM 6+ MO 2019-08-02 00:00:00 Completed [facility] Influenza Virus Vaccine Quad .5 mL IM 6+ MO 2019-08-02 00:00:00 Completed [facility] Influenza Virus Vaccine Quad .5 mL IM 6+ MO 2019-08-02 00:00:00 Completed [facility] Influenza Virus Vaccine Quad .5 mL IM 6+ MO 2019-08-02 00:00:00 Completed [facility] Influenza Virus Vaccine Quad .5 mL IM 6+ MO 2019-08-02 00:00:00 Completed [facility] Influenza Virus Vaccine Quad .5 mL IM 6+ MO 2019-08-02 00:00:00 Completed [facility] Influenza Virus Vaccine Quad .5 mL IM 6+ MO 2019-08-02 00:00:00 Completed [facility] Influenza Virus Vaccine Quad .5 mL IM 6+ MO 2019-08-02 00:00:00 Completed [facility] Influenza Virus Vaccine Quad .5 mL IM 6+ MO 2019-08-02 00:00:00 Completed [facility] Influenza Virus Vaccine Quad .5 mL IM 6+ MO 2019-08-02 00:00:00 Completed [facility] Influenza Virus Vaccine Quad .5 mL IM 6+ MO 2019-08-02 00:00:00 Completed [facility] Influenza Virus Vaccine Quad .5 mL IM 6+ MO 2019-08-02 00:00:00 Completed [facility] Influenza Virus Vaccine Quad .5 mL IM 6+ MO 2019-08-02 00:00:00 Completed [facility] Influenza Virus Vaccine Quad .5 mL IM 6+ MO 2019-08-02 00:00:00 Completed [facility] Influenza Virus Vaccine Quad .5 mL IM 6+ MO 2019-08-02 00:00:00 Completed [facility] Influenza Virus Vaccine Quad .5 mL IM 6+ MO 2019-08-02 00:00:00 Completed [facility] Influenza Virus Vaccine Quad .5 mL IM 6+ MO 2019-08-02 00:00:00 Completed [facility] Influenza Virus Vaccine Quad .5 mL IM 6+ MO 2019-08-02 00:00:00 Completed [facility] Influenza Virus Vaccine Quad .5 mL IM 6+ MO 2019-08-02 00:00:00 Completed [facility] Influenza Virus Vaccine Quad .5 mL IM 6+ MO 2019-08-02 00:00:00 Completed [facility] Influenza Virus Vaccine Quad .5 mL IM 6+ MO 2019-08-02 00:00:00 Completed [facility] Influenza Virus Vaccine Quad .5 mL IM 6+ MO 2019-08-02 00:00:00 Completed [facility] Influenza Virus Vaccine Quad .5 mL IM 6+ MO 2019-08-02 00:00:00 Completed [facility] Influenza Virus Vaccine Quad .5 mL IM 6+ MO 2019-08-02 00:00:00 Completed [facility] Influenza Virus Vaccine Quad .5 mL IM 6+ MO 2019-08-02 00:00:00 Completed [facility] Influenza Virus Vaccine Quad .5 mL IM 6+ MO 2019-08-02 00:00:00 Completed [facility] Influenza Virus Vaccine Quad .5 mL IM 6+ MO 2019-08-02 00:00:00 Completed [facility] Influenza Virus Vaccine Quad .5 mL IM 6+ MO 2019-08-02 00:00:00 Completed [facility] Influenza Virus Vaccine Quad .5 mL IM 6+ MO 2019-08-02 00:00:00 Completed [facility] Influenza Virus Vaccine Quad .5 mL IM 6+ MO 2019-08-02 00:00:00 Completed [facility] Influenza Virus Vaccine Quad .5 mL IM 6+ MO 2019-08-02 00:00:00 Completed [facility] Influenza Virus Vaccine Quad .5 mL IM 6+ MO 2019-08-02 00:00:00 Completed [facility] Influenza Virus Vaccine Quad .5 mL IM 6+ MO 2019-08-02 00:00:00 Completed [facility] Influenza Virus Vaccine Quad .5 mL IM 6+ MO 2019-08-02 00:00:00 Completed [facility] Influenza Virus Vaccine Quad .5 mL IM 6+ MO 2019-08-02 00:00:00 Completed [facility] Influenza Virus Vaccine Quad .5 mL IM 6+ MO 2019-08-02 00:00:00 Completed [facility] Influenza Virus Vaccine Quad .5 mL IM 6+ MO 2019-08-02 00:00:00 Completed [facility] Influenza Virus Vaccine Quad .5 mL IM 6+ MO 2019-08-02 00:00:00 Completed [facility] Influenza Virus Vaccine Quad .5 mL IM 6+ MO 2019-08-02 00:00:00 Completed [facility] Influenza Virus Vaccine Quad .5 mL IM 6+ MO 2019-08-02 00:00:00 Completed [facility] Influenza Virus Vaccine Quad .5 mL IM 6+ MO 2019-08-02 00:00:00 Completed [facility] Influenza Virus Vaccine Quad .5 mL IM 6+ MO 2019-08-02 00:00:00 Completed [facility] Influenza Virus Vaccine Quad .5 mL IM 6+ MO 2019-08-02 00:00:00 Completed [facility] Influenza Virus Vaccine Quad .5 mL IM 6+ MO 2019-08-02 00:00:00 Completed [facility] Influenza Virus Vaccine Quad .5 mL IM 6+ MO 2019-08-02 00:00:00 Completed [facility] Influenza Virus Vaccine Quad .5 mL IM 6+ MO 2019-08-02 00:00:00 Completed [facility] Influenza Virus Vaccine Quad .5 mL IM 6+ MO 2019-08-02 00:00:00 Completed [facility] Influenza Virus Vaccine Quad .5 mL IM 6+ MO (FLUZONE/FLULAVAL/F LUARIX) 2019-08-02 00:00:00 Completed [facility] Afluria single dose Afluria single dose 2019-07-29 13:16:00 Completed [facility] Afluria single dose Afluria single dose 2019-07-29 13:16:00 Completed [facility] Afluria single dose Afluria single dose Unknown Completed [facility] Adacel (Tdap) Adacel (Tdap) Unknown Completed [facility] Influenza Virus Vaccine Quad .5 mL IM 6+ MO (FLUZONE/FLULAVAL/F LUARIX) Unknown Completed [facility] TDAP (ADACEL) VACCINE Unknown Completed [facility] SARS-COV-2 COVID-19 OTIS/J&J VACCINE Unknown Completed [facility] Influenza Virus Vaccine Quad IM, Preserv and ABX Free 6 MO-64 YRS (FLUCELVAX) Unknown Completed [facility] Influenza Virus Vaccine Unknown Completed [facility] Influenza Virus Vaccine Quad .5 mL IM 6+ MO (FLUZONE/FLULAVAL/F LUARIX) Unknown Completed [facility] TDAP (ADACEL) VACCINE Unknown Completed [facility] SARS-COV-2 COVID-19 OTIS/J&J VACCINE Unknown Completed [facility] Influenza Virus Vaccine Unknown Completed [facility] Influenza Virus Vaccine Quad .5 mL IM 6+ MO (FLUZONE/FLULAVAL/F LUARIX) Unknown Completed [facility] TDAP (ADACEL) VACCINE Unknown Completed [facility] SARS-COV-2 COVID-19 OTIS/J&J VACCINE Unknown Completed [facility] Influenza Virus Vaccine Unknown Completed [facility] Influenza Virus Vaccine Quad .5 mL IM 6+ MO (FLUZONE/FLULAVAL/F LUARIX) Unknown Completed [facility] TDAP (ADACEL) VACCINE Unknown Completed [facility] SARS-COV-2 COVID-19 OTIS/J&J VACCINE Unknown [facility]ine [facility] Influenza Virus Vaccine Quad .5 mL IM 6+ MO (FLUZONE/FLULAVAL/F LUARIX) Unknown Completed [facility] TDAP (ADACEL) VACCINE Unknown Completed [facility] SARS-COV-2 COVID-19 OTIS/J&J VACCINE Unknown Completed [facility] Influenza Virus Vaccine Unknown Completed [facility] Influenza Virus Vaccine Quad .5 mL IM 6+ MO (FLUZONE/FLULAVAL/F LUARIX) Unknown Completed [facility] TDAP (ADACEL) VACCINE Unknown Completed [facility] SARS-COV-2 COVID-19 OTIS/J&J VACCINE Unknown Completed [facility] Influenza Virus Vaccine Unknown Completed [facility] Influenza Virus Vaccine Quad .5 mL IM 6+ MO (FLUZONE/FLULAVAL/F LUARIX) Unknown Completed [facility] TDAP (ADACEL) VACCINE Unknown Completed [facility] SARS-COV-2 COVID-19 OTIS/J&J VACCINE Unknown Completed [facility] Influenza Virus Vaccine Unknown Completed [facility] Influenza Virus Vaccine Quad .5 mL IM 6+ MO (FLUZONE/FLULAVAL/F LUARIX) Unknown Completed [facility] TDAP (ADACEL) VACCINE Unknown Completed [facility] SARS-COV-2 COVID-19 OTIS/J&J VACCINE Unknown Completed [facility] Influenza Virus Vaccine Unknown Completed [facility] Influenza Virus Vaccine Quad .5 mL IM 6+ MO (FLUZONE/FLULAVAL/F LUARIX) Unknown Completed [facility] TDAP (ADACEL) VACCINE Unknown Completed [facility] SARS-COV-2 COVID-19 OTIS/J&J VACCINE Unknown Completed [facility] Influenza Virus Vaccine Unknown Completed [facility] Influenza Virus Vaccine Quad .5 mL IM 6+ MO (FLUZONE/FLULAVAL/F LUARIX) Unknown Completed [facility] TDAP (ADACEL) VACCINE Unknown Completed [facility] SARS-COV-2 COVID-19 OTIS/J&J VACCINE Unknown Completed [facility] Influenza Virus Vaccine Quad .5 mL IM 6+ MO (FLUZONE/FLULAVAL/F LUARIX) Unknown Completed [facility] TDAP (ADACEL) VACCINE Unknown Completed [facility] SARS-COV-2 COVID-19 OTIS/J&J VACCINE Unknown Completed [facility] Influenza Virus Vaccine Quad .5 mL IM 6+ MO (FLUZONE/FLULAVAL/F LUARIX) Unknown Completed [facility] TDAP (ADACEL) VACCINE Unknown Completed [facility] Influenza Virus Vaccine Quad .5 mL IM 6+ MO (FLUZONE/FLULAVAL/F LUARIX) Unknown Completed [facility] TDAP (ADACEL) VACCINE Unknown Completed [facility] Influenza Virus Vaccine Quad .5 mL IM 6+ MO (FLUZONE/FLULAVAL/F LUARIX) Unknown Completed [facility] TDAP (ADACEL) VACCINE Unknown Completed [facility] Influenza Virus Vaccine Quad .5 mL IM 6+ MO (FLUZONE/FLULAVAL/F LUARIX) Unknown Completed [facility] TDAP (ADACEL) VACCINE Unknown Completed [facility] Influenza Virus Vaccine Quad .5 mL IM 6+ MO (FLUZONE/FLULAVAL/F LUARIX) Unknown Completed [facility] TDAP (ADACEL) VACCINE Unknown Completed [facility] Influenza Virus Vaccine Quad .5 mL IM 6+ MO (FLUZONE/FLULAVAL/F LUARIX) Unknown Completed [facility] TDAP (ADACEL) VACCINE Unknown Completed [facility] Influenza Virus Vaccine Quad .5 mL IM 6+ MO (FLUZONE/FLULAVAL/F LUARIX) Unknown Completed [facility] TDAP (ADACEL) VACCINE Unknown Completed [facility] Influenza Virus Vaccine Quad .5 mL IM 6+ MO (FLUZONE/FLULAVAL/F LUARIX) Unknown Completed [facility] TDAP (ADACEL) VACCINE Unknown Completed [facility] Influenza Virus Vaccine Quad .5 mL IM 6+ MO (FLUZONE/FLULAVAL/F LUARIX) Unknown Completed [facility] TDAP (ADACEL) VACCINE Unknown Completed [facility] Influenza Virus Vaccine Quad .5 mL IM 6+ MO (FLUZONE/FLULAVAL/F LUARIX) Unknown Completed [facility] TDAP (ADACEL) VACCINE Unknown Completed [facility] SARS-COV-2 COVID-19 OTIS/J&J VACCINE Unknown Completed [facility] Influenza Virus Vaccine Quad IM, Preserv and ABX Free 6 MO-64 YRS (FLUCELVAX) Unknown Completed [facility] Influenza Virus Vaccine Unknown Completed [facility] Influenza Virus Vaccine Quad .5 mL IM 6+ MO (FLUZONE/FLULAVAL/F LUARIX) Unknown Completed [facility] TDAP (ADACEL) VACCINE Unknown Completed [facility] SARS-COV-2 COVID-19 OTIS/J&J VACCINE Unknown Completed [facility] Influenza Virus Vaccine Quad IM, Preserv and ABX Free 6 MO-64 YRS (FLUCELVAX) Unknown Completed [facility] Influenza Virus Vaccine Unknown Completed [facility] Influenza Virus Vaccine Quad .5 mL IM 6+ MO (FLUZONE/FLULAVAL/F LUARIX) Unknown Completed [facility] TDAP (ADACEL) VACCINE Unknown Completed [facility] SARS-COV-2 COVID-19 OTIS/J&J VACCINE Unknown Completed [facility] Influenza Virus Vaccine Quad IM, Preserv and ABX Free 6 MO-64 YRS (FLUCELVAX) Unknown Completed [facility] Influenza Virus Vaccine Unknown Completed [facility] Influenza Virus Vaccine Quad .5 mL IM 6+ MO (FLUZONE/FLULAVAL/F LUARIX) Unknown Completed [facility] TDAP (ADACEL) VACCINE Unknown Completed [facility] SARS-COV-2 COVID-19 OTIS/J&J VACCINE Unknown Completed [facility] Influenza Virus Vaccine Quad IM, Preserv and ABX Free 6 MO-64 YRS (FLUCELVAX) Unknown Completed [facility] Influenza Virus Vaccine Unknown Completed [facility] Influenza Virus Vaccine Quad .5 mL IM 6+ MO (FLUZONE/FLULAVAL/F LUARIX) Unknown Completed [facility] TDAP (ADACEL) VACCINE Unknown Completed [facility] SARS-COV-2 COVID-19 OTIS/J&J VACCINE Unknown Completed [facility] Influenza Virus Vaccine Quad IM, Preserv and ABX Free 6 MO-64 YRS (FLUCELVAX) Unknown Completed [facility] Influenza Virus Vaccine Unknown Completed [facility] Influenza Virus Vaccine Quad .5 mL IM 6+ MO (FLUZONE/FLULAVAL/F LUARIX) Unknown Completed [facility] TDAP (ADACEL) VACCINE Unknown Completed [facility] SARS-COV-2 COVID-19 OTIS/J&J VACCINE Unknown Completed [facility] Influenza Virus Vaccine Quad IM, Preserv and ABX Free 6 MO-64 YRS (FLUCELVAX) Unknown Completed [facility] Influenza Virus Vaccine Unknown Completed [facility] Influenza Virus Vaccine Quad .5 mL IM 6+ MO (FLUZONE/FLULAVAL/F LUARIX) Unknown Completed [facility] TDAP (ADACEL) VACCINE Unknown Completed [facility] SARS-COV-2 COVID-19 OTIS/J&J VACCINE Unknown Completed [facility] Influenza Virus Vaccine Quad IM, Preserv and ABX Free 6 MO-64 YRS (FLUCELVAX) Unknown Completed [facility] Influenza Virus Vaccine Unknown Completed [facility] Influenza Virus Vaccine Quad .5 mL IM 6+ MO (FLUZONE/FLULAVAL/F LUARIX) Unknown Completed [facility] TDAP Unknown Completed [facility] SARS-COV-2 COVID-19 OTIS/J&J VACCINE Unknown Completed [facility] Influenza Virus Vaccine Quad IM, Preserv and ABX Free 6 MO-64 YRS (FLUCELVAX) Unknown Completed [facility] Influenza Virus Vaccine Unknown Completed [facility] Influenza Virus Vaccine Quad .5 mL IM 6+ MO (FLUZONE/FLULAVAL/F LUARIX) Unknown Completed [facility] TDAP Unknown Completed [facility] SARS-COV-2 COVID-19 OTIS/J&J VACCINE Unknown Completed [facility] Influenza Virus Vaccine Quad IM, Preserv and ABX Free 6 MO-64 YRS (FLUCELVAX) Unknown Completed [facility] Influenza Virus Vaccine Unknown Completed [facility] Influenza Virus Vaccine Quad .5 mL IM 6+ MO (FLUZONE/FLULAVAL/F LUARIX) Unknown Completed [facility] TDAP Unknown Completed [facility] SARS-COV-2 COVID-19 OTIS/J&J VACCINE Unknown Completed [facility] Influenza Virus Vaccine Quad IM, Preserv and ABX Free 6 MO-64 YRS (FLUCELVAX) Unknown Completed [facility] Influenza Virus Vaccine Unknown Completed [facility] Influenza, Injectable, Mdck, Quadrivalent With Preservative Unknown Completed Naat Seybold - External Influenza, Injectable, Mdck, Preservative Free, Quadrivalent Unknown Completed Anat Seybold - External Influenza Virus Vaccine, No Preserv, age 6 months and up Unknown Completed Anat Seybold - External Covid-19 Vaccine (Otis) Unknown Completed Anat Seybold - External Tdap- (Boostrix, Adacel) Unknown Completed Anat Seybold - External Influenza, Injectable, Mdck, Quadrivalent With Preservative Unknown Completed Anat Seybold - External Influenza, Injectable, Mdck, Preservative Free, Quadrivalent Unknown Completed Anat Seybold - External Influenza Virus Vaccine, No Preserv, age 6 months and up Unknown Completed Anat Seybold - External Covid-19 Vaccine (Otis) Unknown Completed Anat Seybold - External Tdap- (Boostrix, Adacel) Unknown Completed Anat Seybold - External Influenza, Injectable, Mdck, Quadrivalent With Preservative Unknown Completed Anat Seybold - External Influenza, Injectable, Mdck, Preservative Free, Quadrivalent Unknown Completed Anat Seybold - External Influenza Virus Vaccine, No Preserv, age 6 months and up Unknown Completed Anat Seybold - External Covid-19 Vaccine (Otis) Unknown Completed Anat Seybold - External Tdap- (Boostrix, Adacel) Unknown Completed Anat Seybold - External Influenza, Injectable, Mdck, Quadrivalent With Preservative Unknown Completed Anat Seybold - External Influenza, Injectable, Mdck, Preservative Free, Quadrivalent Unknown Completed Anat Seybold - External Influenza Virus Vaccine, No Preserv, age 6 months and up Unknown Completed Anat Seybold - External Covid-19 Vaccine (Otis) Unknown Completed Anat Seybold - External Tdap- (Boostrix, Adacel) Unknown Completed Anat Seybold - External Influenza, Injectable, Mdck, Quadrivalent With Preservative Unknown Completed Anat Seybold - External Influenza, Injectable, Mdck, Preservative Free, Quadrivalent Unknown Completed Anat Seybold - External Influenza Virus Vaccine, No Preserv, age 6 months and up Unknown Completed Anat Seybold - External Covid-19 Vaccine (Otis) Unknown Completed Anat Seybold - External Tdap- (Boostrix, Adacel) Unknown Completed Anat Seybold - External Influenza, Injectable, Mdck, Quadrivalent With Preservative Unknown Completed Anat Seybold - External Influenza, Injectable, Mdck, Preservative Free, Quadrivalent Unknown Completed Anat Seybold - External Influenza Virus Vaccine, No Preserv, age 6 months and up Unknown Completed Anat Seybold - External Covid-19 Vaccine (Otis) Unknown Completed Anat Seybold - External Tdap- (Boostrix, Adacel) Unknown Completed Anat Seybold - External Influenza, Injectable, Mdck, Quadrivalent With Preservative Unknown Completed Anat Seybold - External Influenza, Injectable, Mdck, Preservative Free, Quadrivalent Unknown Completed Anat Seybold - External Influenza Virus Vaccine, No Preserv, age 6 months and up Unknown Completed Anat Seybold - External Covid-19 Vaccine (Otis) Unknown Completed Anat Seybold - External Tdap- (Boostrix, Adacel) Unknown Completed Anat Seybold - External Influenza, Injectable, Mdck, Quadrivalent With Preservative Unknown Completed Anat Seybold - External Influenza, Injectable, Mdck, Preservative Free, Quadrivalent Unknown Completed Anat Seybold - External Influenza Virus Vaccine, No Preserv, age 6 months and up Unknown Completed Anat Seybold - External Covid-19 Vaccine (Otis) Unknown Completed Anat Seybold - External Tdap- (Boostrix, Adacel) Unknown Completed Anat Seybold - External Vital Signs Vital Name Observation Time Observation Value Comments S ource Systolic blood pressure 2024-08-30 18:42:00 102 mm[Hg] Anat Seybo ld - External Diastolic blood pressure 2024-08-30 18:42:00 60 mm[Hg] Anat Seybo ld - External Heart rate 2024-08-30 18:42:00 81 /min Kelse y Seybold - External Body temperature 2024-08-30 18:42:00 36.89 Silvina Anat Seybold - External Respiratory rate 2024-08-30 18:42:00 18 /min Anat Seybold - External Body height 2024-08-30 18:42:00 165.1 cm Brea ey Seybold - External Body weight 2024-08-30 18:42:00 125.193 kg Brea ey Seybold - External BMI 2024-08-30 18:42:00 45.93 kg/m2 Brea ey Seybold - External Oxygen saturation in Arterial blood by Pulse oximetry 2024-08-30 18:42:00 98 /min Anat Seybo ld - External Systolic blood pressure 2024-07-10 15:11:00 108 mm[Hg] Anat Seybo ld - External Diastolic blood pressure 2024-07-10 15:11:00 62 mm[Hg] Anat Seybo ld - External Heart rate 2024-07-10 15:11:00 86 /min Kelse y Seybold - External Body temperature 2024-07-10 15:11:00 36.44 Silvina Anat Seybold - External Respiratory rate 2024-07-10 15:11:00 16 /min Anat Seybold - External Body height 2024-07-10 15:11:00 165.1 cm Brea ey Seybold - External Body weight 2024-07-10 15:11:00 120.203 kg Brea ey Seybold - External BMI 2024-07-10 15:11:00 44.10 kg/m2 Brea ey Seybold - External Systolic blood pressure 2024-07-10 00:58:00 109 mm[Hg] [facility] Diastolic blood pressure 2024-07-10 00:58:00 68 mm[Hg] [facility] Heart rate 2024-07-10 00:58:00 98 /min [facility] Body temperature 2024-07-10 00:58:00 37.11 Silvina [facility] Respiratory rate 2024-07-10 00:58:00 15 /min [facility] Body height 2024-07-10 00:58:00 165.1 cm [facility] Body weight 2024-07-10 00:58:00 118.525 kg [facility] BMI 2024-07-10 00:58:00 43.48 kg/m2 [facility] Oxygen saturation in Arterial blood by Pulse oximetry 2024-07-10 00:58:00 98 /min [facility] Systolic blood pressure 2024-07-04 02:19:00 115 mm[Hg] [facility] Diastolic blood pressure 2024-07-04 02:19:00 72 mm[Hg] [facility] Heart rate 2024-07-04 02:19:00 73 /min [facility] Body temperature 2024-07-04 02:19:00 36.89 Silvina [facility] Respiratory rate 2024-07-04 02:19:00 19 /min [facility] Oxygen saturation in Arterial blood by Pulse oximetry 2024-07-04 02:19:00 97 /min [facility] Body height 2024-07-03 22:28:00 165.1 cm [facility] Body weight 2024-07-03 22:28:00 111.131 kg [facility] BMI 2024-07-03 22:28:00 40.77 kg/m2 [facility] Systolic blood pressure 2024-06-29 01:25:00 113 mm[Hg] [facility] Diastolic blood pressure 2024-06-29 01:25:00 77 mm[Hg] [facility] Heart rate 2024-06-29 01:25:00 86 /min [facility] Body temperature 2024-06-29 01:25:00 36.89 Silivna [facility] Respiratory rate 2024-06-29 01:25:00 18 /min [facility] Body weight 2024-06-29 01:25:00 120.203 kg [facility] BMI 2024-06-29 01:25:00 44.10 kg/m2 [facility] Oxygen saturation in Arterial blood by Pulse oximetry 2024-06-29 01:25:00 100 /min [facility] Systolic blood pressure 2024-06-27 14:40:00 102 mm[Hg] Anat Seybo ld - External Diastolic blood pressure 2024-06-27 14:40:00 60 mm[Hg] Anat Seybo ld - External Heart rate 2024-06-27 14:40:00 97 /min Collins y Seybold - External Body temperature 2024-06-27 14:40:00 36.44 Silvina Anat Seybold - External Respiratory rate 2024-06-27 14:40:00 15 /min Anat Maciasybold - External Body height 2024-06-27 14:40:00 165.1 cm Brea ey Seybold - External Body weight 2024-06-27 14:40:00 120.203 kg Brea ey Seybold - External BMI 2024-06-27 14:40:00 44.10 kg/m2 Brea ey Seybold - External Systolic blood pressure 2024-06-26 01:19:00 126 mm[Hg] [facility] Diastolic blood pressure 2024-06-26 01:19:00 62 mm[Hg] [facility] Heart rate 2024-06-26 01:19:00 98 /min [facility] Body temperature 2024-06-26 01:19:00 37.5 Silvina [facility] Respiratory rate 2024-06-26 01:19:00 22 /min [facility] Body height 2024-06-26 01:19:00 165.1 cm [facility] weight 2024-06-26 01:19:00 119.75 kg [facility] BMI 2024-06-26 01:19:00 43.93 kg/m2 [facility] Oxygen saturation in Arterial blood by Pulse oximetry 2024-06-26 01:19:00 100 /min [facility] Systolic blood pressure 2024-06-06 19:54:00 104 mm[Hg] Anat Salcedoo ld - External Diastolic blood pressure 2024-06-06 19:54:00 71 mm[Hg] Anat Maciasybo ld - External Heart rate 2024-06-06 19:54:00 82 /min Kannanse y Seybold - External Respiratory rate 2024-06-06 19:54:00 16 /min Anat Seybold - External Body height 2024-06-06 19:54:00 165.1 cm Brea ey Seybold - External Body weight 2024-06-06 19:54:00 119.75 kg Brea ey Seybold - External BMI 2024-06-06 19:54:00 43.93 kg/m2 Brea ey Seybold - External Systolic blood pressure 2024-05-22 20:07:00 100 mm[Hg] Anat Maciasybo ld - External Diastolic blood pressure 2024-05-22 20:07:00 60 mm[Hg] Anat Maciasybo ld - External Heart rate 2024-05-22 20:07:00 97 /min Collins y Seybold - External Body temperature 2024-05-22 20:07:00 36.67 Silvina Anat Seybold - External Respiratory rate 2024-05-22 20:07:00 18 /min Anat Seybold - External Body height 2024-05-22 20:07:00 165.1 cm Brea ey Seybold - External Body weight 2024-05-22 20:07:00 120.203 kg Brea ey Seybold - External BMI 2024-05-22 20:07:00 44.10 kg/m2 Brea ey Seybold - External Systolic blood pressure 2024-05-13 07:13:00 118 mm[Hg] [facility] Diastolic blood pressure 2024-05-13 07:13:00 86 mm[Hg] [facility] Heart rate 2024-05-13 07:13:00 83 /min [facility] Body temperature 2024-05-13 07:13:00 36.72 Silvina [facility] Respiratory rate 2024-05-13 07:13:00 18 /min [facility] Oxygen saturation in Arterial blood by Pulse oximetry 2024-05-13 07:13:00 100 /min [facility] Body height 2024-05-13 05:03:00 165.1 cm [facility] Body weight 2024-05-13 05:03:00 114.76 kg [facility] BMI 2024-05-13 05:03:00 42.10 kg/m2 [facility] Systolic blood pressure 2023-12-01 06:06:00 128 mm[Hg] [facility] Diastolic blood pressure 2023-12-01 06:06:00 84 mm[Hg] [facility] Heart rate 2023-12-01 06:06:00 88 /min [facility] Body temperature 2023-12-01 06:06:00 36.89 Silvina [facility] Respiratory rate 2023-12-01 06:06:00 16 /min [facility] Oxygen saturation in Arterial blood by Pulse oximetry 2023-12-01 06:06:00 100 /min [facility] Body height 2023-12-01 03:03:00 165.1 cm [facility] Body weight 2023-12-01 03:03:00 114.76 kg [facility] BMI 2023-12-01 03:03:00 42.10 kg/m2 [facility] Systolic blood pressure 2023-10-14 05:45:00 128 mm[Hg] [facility] Diastolic blood pressure 2023-10-14 05:45:00 72 mm[Hg] [facility] Heart rate 2023-10-14 05:45:00 77 /min [facility] Body temperature 2023-10-14 05:45:00 36.89 Silvina [facility] Respiratory rate 2023-10-14 05:45:00 16 /min [facility] Oxygen saturation in Arterial blood by Pulse oximetry 2023-10-14 05:45:00 100 /min [facility] Body height 2023-10-14 03:39:00 165.1 cm [facility] Body weight 2023-10-14 03:39:00 114.76 kg [facility] BMI 2023-10-14 03:39:00 42.10 kg/m2 [facility] Systolic blood pressure 2023-09-28 01:41:00 129 mm[Hg] [facility] Diastolic blood pressure 2023-09-28 01:41:00 82 mm[Hg] [facility] Heart rate 2023-09-28 01:41:00 76 /min [facility] Body temperature 2023-09-28 01:41:00 37.39 Silvina [facility] Respiratory rate 2023-09-28 01:41:00 17 /min [facility] Body weight 2023-09-28 01:41:00 114.76 kg [facility] BMI 2023-09-28 01:41:00 49.41 kg/m2 [facility] Oxygen saturation in Arterial blood by Pulse oximetry 2023-09-28 01:41:00 99 /min [facility] Systolic blood pressure 2023-09-04 06:00:00 124 mm[Hg] [facility] Diastolic blood pressure 2023-09-04 06:00:00 71 mm[Hg] [facility] Heart rate 2023-09-04 06:00:00 96 /min [facility] Respiratory rate 2023-09-04 06:00:00 20 /min [facility] Oxygen saturation in Arterial blood by Pulse oximetry 2023-09-04 06:00:00 96 /min [facility] Body temperature 2023-09-04 03:04:00 37.22 Silvina [facility] Body height 2023-09-04 03:04:00 152.4 cm [facility] Body weight 2023-09-04 03:04:00 108.863 kg [facility] BMI 2023-09-04 03:04:00 46.87 kg/m2 [facility] Systolic blood pressure 2023-08-29 18:00:42 118 mm[Hg] [facility] Diastolic blood pressure 2023-08-29 18:00:42 76 mm[Hg] [facility] Heart rate 2023-08-29 18:00:42 101 /min [facility] Body temperature 2023-08-29 18:00:42 36.78 Silvina [facility] Oxygen saturation in Arterial blood by Pulse oximetry 2023-08-29 18:00:42 96 /min [facility] Respiratory rate 2023-08-29 16:20:00 18 /min [facility] Body height 2023-08-29 16:20:00 165.1 cm [facility] Body weight 2023-08-29 16:20:00 108.863 kg [facility] BMI 2023-08-29 16:20:00 39.94 kg/m2 [facility] Systolic blood pressure 2023-02-14 01:09:00 110 mm[Hg] [facility] Diastolic blood pressure 2023-02-14 01:09:00 76 mm[Hg] [facility] Heart rate 2023-02-14 01:09:00 107 /min [facility] Body temperature 2023-02-14 01:09:00 37.11 Silvina [facility] Respiratory rate 2023-02-14 01:09:00 14 /min [facility] Body height 2023-02-14 01:09:00 165.1 cm [facility] Body weight 2023-02-14 01:09:00 108.954 kg [facility] BMI 2023-02-14 01:09:00 39.97 kg/m2 [facility] Oxygen saturation in Arterial blood by Pulse oximetry 2023-02-14 01:09:00 98 /min [facility] Systolic blood pressure 2022-11-05 16:30:00 104 mm[Hg] [facility] Diastolic blood pressure 2022-11-05 16:30:00 74 mm[Hg] [facility] Heart rate 2022-11-05 16:30:00 69 /min [facility] Body temperature 2022-11-05 16:30:00 36.89 Silvina [facility] Respiratory rate 2022-11-05 16:30:00 18 /min [facility] Body height 2022-11-05 16:30:00 165.1 cm [facility] Body weight 2022-11-05 16:30:00 108.863 kg [facility] BMI 2022-11-05 16:30:00 39.94 kg/m2 [facility] Systolic blood pressure 2022-10-21 16:40:00 113 mm[Hg] [facility] Diastolic blood pressure 2022-10-21 16:40:00 77 mm[Hg] [facility] Heart rate 2022-10-21 16:40:00 94 /min [facility] Body temperature 2022-10-21 16:40:00 36.78 Silv[place] [facility] Respiratory rate 2022-10-21 16:40:00 18 /min [facility] Body height 2022-10-21 16:40:00 165.1 cm [facility] Body weight 2022-10-21 16:40:00 108.863 kg [facility] BMI 2022-10-21 16:40:00 39.94 kg/m2 [facility] Systolic blood pressure 2022-10-13 15:09:00 107 mm[Hg] [facility] Diastolic blood pressure 2022-10-13 15:09:00 76 mm[Hg] [facility] Heart rate 2022-10-13 15:09:00 56 /min [facility] Body temperature 2022-10-13 15:09:00 36.83 Silvina [facility] Respiratory rate 2022-10-13 15:09:00 18 /min [facility] Body weight 2022-10-13 15:09:00 109.317 kg [facility] BMI 2022-10-13 15:09:00 40.10 kg/m2 [facility] Systolic blood pressure 2022-09-28 13:13:00 114 mm[Hg] [facility] Diastolic blood pressure 2022-09-28 13:13:00 73 mm[Hg] [facility] Heart rate 2022-09-28 13:13:00 78 /min [facility] Body temperature 2022-09-28 13:13:00 36.22 Silv[place] [facility] Respiratory rate 2022-09-28 13:13:00 16 /min [facility] Oxygen saturation in Arterial blood by Pulse oximetry 2022-09-28 13:13:00 100 /min [facility] Systolic blood pressure 2022-09-24 15:16:00 110 mm[Hg] [facility] Diastolic blood pressure 2022-09-24 15:16:00 76 mm[Hg] [facility] Heart rate 2022-09-24 15:16:00 94 /min [facility] Body temperature 2022-09-24 15:16:00 36.72 Silvina [facility] Body height 2022-09-24 15:16:00 165.1 cm [facility] Body weight 2022-09-24 15:16:00 117.981 kg [facility] BMI 2022-09-24 15:16:00 43.28 kg/m2 [facility] Heart rate 2022-09-20 21:45:00 80 /min [facility] Oxygen saturation in Arterial blood by Pulse oximetry 2022-09-20 21:45:00 99 /min [facility] Systolic blood pressure 2022-09-20 21:04:00 108 mm[Hg] [facility] Diastolic blood pressure 2022-09-20 21:04:00 63 mm[Hg] [facility] Body temperature 2022-09-20 21:04:00 37 Sil[place] [facility] Respiratory rate 2022-09-20 21:04:00 18 /min [facility] Body height 2022-09-20 21:04:00 165.1 cm [facility] Body weight 2022-09-20 21:04:00 118.026 kg [facility] BMI 2022-09-20 21:04:00 43.30 kg/m2 [facility] Systolic blood pressure 2022-09-17 16:11:00 110 mm[Hg] [facility] Diastolic blood pressure 2022-09-17 16:11:00 73 mm[Hg] [facility] Heart rate 2022-09-17 16:11:00 90 /min [facility] Body temperature 2022-09-17 16:11:00 36.78 Silv[place] [facility] Respiratory rate 2022-09-17 16:11:00 18 /min [facility] Body height 2022-09-17 16:11:00 165.1 cm [facility] Body weight 2022-09-17 16:11:00 117.482 kg [facility] BMI 2022-09-17 16:11:00 43.10 kg/m2 [facility] Heart rate 2022-09-16 17:15:00 94 /min [facility] in Arterial blood by Pulse oximetry 2022-09-16 17:15:00 98 /min [facility] Systolic blood pressure 2022-09-16 16:30:00 112 mm[Hg] [facility] Diastolic blood pressure 2022-09-16 16:30:00 57 mm[Hg] [facility] Body temperature 2022-09-16 16:30:00 36.89 Silv[place] [facility] Body height 2022-09-16 16:30:00 165.1 cm [facility] Body weight 2022-09-16 16:30:00 117.935 kg [facility] BMI 2022-09-16 16:30:00 43.27 kg/m2 [facility] Respiratory rate 2022-09-16 15:41:00 16 /min [facility] Heart rate 2022-09-10 16:30:00 76 /min [facility] Oxygen saturation in Arterial blood by Pulse oximetry 2022-09-10 16:30:00 99 /min [facility] Systolic blood pressure 2022-09-10 14:35:00 114 mm[Hg] [facility] Diastolic blood pressure 2022-09-10 14:35:00 65 mm[Hg] [facility] Body temperature 2022-09-10 14:35:00 36.67 [facility] Respiratory rate 2022-09-10 14:35:00 18 /min [facility] Body weight 2022-09-10 14:12:00 116.075 kg [facility] BMI 2022-09-10 14:12:00 42.58 kg/m2 [facility] Systolic blood pressure 2022-09-09 16:06:00 117 mm[Hg] [facility] Diastolic blood pressure 2022-09-09 16:06:00 78 mm[Hg] [facility] Heart rate 2022-09-09 16:06:00 93 /min [facility] Body temperature 2022-09-09 16:06:00 37 [facility] Respiratory rate 2022-09-09 16:06:00 16 /min [facility] Body height 2022-09-09 16:06:00 165.1 cm [facility] Body weight 2022-09-09 16:06:00 115.803 kg [facility] BMI 2022-09-09 16:06:00 42.48 kg/m2 [facility] Oxygen saturation in Arterial blood by Pulse oximetry 2022-09-09 16:06:00 98 /min [facility] Systolic blood pressure 2022-09-08 03:00:00 101 mm[Hg] [facility] Diastolic blood pressure 2022-09-08 03:00:00 56 mm[Hg] [facility] Heart rate 2022-09-08 03:00:00 89 /min [facility] Oxygen saturation in Arterial blood by Pulse oximetry 2022-09-08 03:00:00 99 /min [facility] Body temperature 2022-09-08 01:23:00 37.06 [facility] Respiratory rate 2022-09-08 01:23:00 18 /min [facility] Body height 2022-09-08 01:23:00 165.1 cm [facility] Body weight 2022-09-08 01:23:00 116.937 kg [facility] BMI 2022-09-08 01:23:00 42.90 kg/m2 [facility] Heart rate 2022-09-05 03:57:00 79 /min [facility] in Arterial blood by Pulse oximetry 2022-09-05 03:57:00 99 /min [facility] Systolic blood pressure 2022-09-05 03:30:00 121 mm[Hg] [facility] Diastolic blood pressure 2022-09-05 03:30:00 73 mm[Hg] [facility] Body temperature 2022-09-05 03:00:00 36.5 [facility] Respiratory rate 2022-09-05 03:00:00 16 /min [facility] Body height 2022-09-05 02:45:00 165.1 cm [facility] Body weight 2022-09-05 02:45:00 116.937 kg [facility] BMI 2022-09-05 02:45:00 42.90 kg/m2 [facility] Heart rate 2022-09-02 12:32:00 75 /min [facility] Oxygen saturation in Arterial blood by Pulse oximetry 2022-09-02 12:32:00 99 /min [facility] Systolic blood pressure 2022-09-02 10:55:00 121 mm[Hg] [facility] Diastolic blood pressure 2022-09-02 10:55:00 73 mm[Hg] [facility] Body temperature 2022-09-02 10:55:00 36.61 [facility] Respiratory rate 2022-09-02 10:55:00 19 /min [facility] Body height 2022-09-02 10:55:00 165.1 cm [facility] Body weight 2022-09-02 10:55:00 115.304 kg [facility] BMI 2022-09-02 10:55:00 42.30 kg/m2 [facility] Systolic blood pressure 2022-09-01 21:55:00 113 mm[Hg] [facility] Diastolic blood pressure 2022-09-01 21:55:00 74 mm[Hg] [facility] Heart rate 2022-09-01 21:55:00 97 /min [facility] Body temperature 2022-09-01 21:55:00 36.67 [facility] Respiratory rate 2022-09-01 21:55:00 20 /min [facility] Body height 2022-09-01 21:55:00 165.1 cm [facility] Body weight 2022-09-01 21:55:00 115.696 kg [facility] BMI 2022-09-01 21:55:00 42.44 kg/m2 [facility] Systolic blood pressure 2022-08-27 16:48:00 117 mm[Hg] [facility] Diastolic blood pressure 2022-08-27 16:48:00 76 mm[Hg] [facility] Heart rate 2022-08-27 16:48:00 84 /min [facility] Body temperature 2022-08-27 16:48:00 36.89 [facility] Respiratory rate 2022-08-27 16:48:00 16 /min [facility] Body height 2022-08-27 16:48:00 165.1 cm [facility] Body weight 2022-08-27 16:48:00 115.123 kg [facility] BMI 2022-08-27 16:48:00 42.23 kg/m2 [facility] Oxygen saturation in Arterial blood by Pulse oximetry 2022-08-27 16:48:00 99 /min [facility] Heart rate 2022-08-23 02:00:00 90 /min [facility] Oxygen saturation in Arterial blood by Pulse oximetry 2022-08-23 02:00:00 100 /min [facility] Systolic blood pressure 2022-08-22 23:34:00 119 mm[Hg] [facility] Diastolic blood pressure 2022-08-22 23:34:00 65 mm[Hg] [facility] Body temperature 2022-08-22 23:34:00 36.33 [facility] Respiratory rate 2022-08-22 23:34:00 16 /min [facility] Body height 2022-08-22 23:34:00 165.1 cm [facility] Body weight 2022-08-22 23:34:00 115.667 kg [facility] BMI 2022-08-22 23:34:00 42.43 kg/m2 [facility] Systolic blood pressure 2022-08-14 01:14:00 105 mm[Hg] [facility] Diastolic blood pressure 2022-08-14 01:14:00 59 mm[Hg] [facility] Heart rate 2022-08-14 01:14:00 87 /min [facility] Body temperature 2022-08-14 01:14:00 36.44 [facility] Respiratory rate 2022-08-14 01:14:00 16 /min [facility] Oxygen saturation in Arterial blood by Pulse oximetry 2022-08-14 01:14:00 98 /min [facility] Body height 2022-08-14 00:23:00 165.1 cm [facility] Body weight 2022-08-14 00:23:00 113.853 kg 251lb [facility] BMI 2022-08-14 00:23:00 41.77 kg/m2 [facility] Systolic blood pressure 2022-08-13 14:37:00 104 mm[Hg] [facility] Diastolic blood pressure 2022-08-13 14:37:00 72 mm[Hg] [facility] Heart rate 2022-08-13 14:37:00 97 /min [facility] Body temperature 2022-08-13 14:37:00 36.89 [facility] Respiratory rate 2022-08-13 14:37:00 18 /min [facility] Body height 2022-08-13 14:37:00 165.1 cm [facility] Body weight 2022-08-13 14:37:00 113.807 kg [facility] BMI 2022-08-13 14:37:00 41.75 kg/m2 [facility] Systolic blood pressure 2022-08-09 16:05:00 107 mm[Hg] [facility] Diastolic blood pressure 2022-08-09 16:05:00 74 mm[Hg] [facility] Heart rate 2022-08-09 16:05:00 84 /min [facility] Body temperature 2022-08-09 16:05:00 36.78 [facility] Respiratory rate 2022-08-09 16:05:00 16 /min [facility] Body height 2022-08-09 16:05:00 165.1 cm [facility] Body weight 2022-08-09 16:05:00 114.306 kg [facility] BMI 2022-08-09 16:05:00 41.93 kg/m2 [facility] Oxygen saturation in Arterial blood by Pulse oximetry 2022-08-09 16:05:00 98 /min [facility] Heart rate 2022-08-08 21:30:00 89 /min [facility] Oxygen saturation in Arterial blood by Pulse oximetry 2022-08-08 21:30:00 99 /min [facility] Systolic blood pressure 2022-08-08 20:45:00 121 mm[Hg] [facility] Diastolic blood pressure 2022-08-08 20:45:00 65 mm[Hg] [facility] Body temperature 2022-08-08 20:45:00 36.61 [facility] Respiratory rate 2022-08-08 20:45:00 16 /min [facility] Body height 2022-08-08 20:22:00 165.1 cm [facility] Body weight 2022-08-08 20:22:00 113.853 kg [facility] BMI 2022-08-08 20:22:00 41.77 kg/m2 [facility] Systolic blood pressure 2022-08-02 13:35:00 111 mm[Hg] [facility] Diastolic blood pressure 2022-08-02 13:35:00 69 mm[Hg] [facility] Heart rate 2022-08-02 13:35:00 87 /min [facility] Body temperature 2022-08-02 13:35:00 37.11 [facility] Respiratory rate 2022-08-02 13:35:00 16 /min [facility] Body height 2022-08-02 13:35:00 165.1 cm [facility] Body weight 2022-08-02 13:35:00 112.719 kg [facility] BMI 2022-08-02 13:35:00 41.35 kg/m2 [facility] Oxygen saturation in Arterial blood by Pulse oximetry 2022-08-02 13:35:00 97 /min [facility] Systolic blood pressure 2022-07-31 12:17:00 112 mm[Hg] [facility] Diastolic blood pressure 2022-07-31 12:17:00 72 mm[Hg] [facility] Heart rate 2022-07-31 12:17:00 82 /min [facility] Body temperature 2022-07-31 12:17:00 36.83 [facility] Respiratory rate 2022-07-31 12:17:00 18 /min [facility] Body height 2022-07-31 12:17:00 165.1 cm [facility] Body weight 2022-07-31 12:17:00 111.585 kg [facility] BMI 2022-07-31 12:17:00 40.94 kg/m2 [facility] Oxygen saturation in Arterial blood by Pulse oximetry 2022-07-31 12:17:00 96 /min [facility] Systolic blood pressure 2022-07-30 18:23:00 112 mm[Hg] [facility] Diastolic blood pressure 2022-07-30 18:23:00 75 mm[Hg] [facility] Heart rate 2022-07-30 18:23:00 88 /min [facility] Body temperature 2022-07-30 18:23:00 36.89 [facility] Respiratory rate 2022-07-30 18:23:00 16 /min [facility] Body height 2022-07-30 18:23:00 165.1 cm [facility] Body weight 2022-07-30 18:23:00 111.766 kg [facility] BMI 2022-07-30 18:23:00 41.00 kg/m2 [facility] Oxygen saturation in Arterial blood by Pulse oximetry 2022-07-30 18:23:00 98 /min [facility] Systolic blood pressure 2022-07-30 03:08:00 114 mm[Hg] [facility] Diastolic blood pressure 2022-07-30 03:08:00 73 mm[Hg] [facility] Heart rate 2022-07-30 03:08:00 95 /min [facility] Body temperature 2022-07-30 03:08:00 36.78 [facility] Respiratory rate 2022-07-30 03:08:00 18 /min [facility] Oxygen saturation in Arterial blood by Pulse oximetry 2022-07-30 03:08:00 98 /min [facility] Body height 2022-07-30 02:42:00 165.1 cm [facility] Body weight 2022-07-30 02:42:00 112.537 kg [facility] BMI 2022-07-30 02:42:00 41.29 kg/m2 [facility] Heart rate 2022-07-25 01:00:00 85 /min [facility] Oxygen saturation in Arterial blood by Pulse oximetry 2022-07-25 01:00:00 99 /min [facility] Systolic blood pressure 2022-07-25 00:15:00 103 mm[Hg] [facility] Diastolic blood pressure 2022-07-25 00:15:00 57 mm[Hg] [facility] Body temperature 2022-07-25 00:15:00 36.78 [facility] Respiratory rate 2022-07-25 00:15:00 16 /min [facility] Body height 2022-07-24 23:27:00 162.6 cm [facility] Body weight 2022-07-24 23:27:00 110.678 kg [facility] BMI 2022-07-24 23:27:00 41.88 kg[facility]m2 [facility] 2022-07-23 18:19:00 104 mm[Hg] [facility] Diastolic blood pressure 2022-07-23 18:19:00 68 mm[Hg] [facility] Heart rate 2022-07-23 18:19:00 74 /min [facility] Body temperature 2022-07-23 18:19:00 36.72 [facility] Respiratory rate 2022-07-23 18:19:00 16 /min [facility] Body height 2022-07-23 18:19:00 165.1 cm [facility] Body weight 2022-07-23 18:19:00 113.127 kg [facility] BMI 2022-07-23 18:19:00 41.50 kg/m2 [facility] Oxygen saturation in Arterial blood by Pulse oximetry 2022-07-23 18:19:00 98 /min [facility] Heart rate 2022-07-21 15:30:00 87 /min [facility] Oxygen saturation in Arterial blood by Pulse oximetry 2022-07-21 15:30:00 100 /min [facility] Systolic blood pressure 2022-07-21 13:34:00 112 mm[Hg] [facility] Diastolic blood pressure 2022-07-21 13:34:00 61 mm[Hg] [facility] Body temperature 2022-07-21 13:34:00 37 [facility] Respiratory rate 2022-07-21 13:34:00 18 /min [facility] Body height 2022-07-21 13:34:00 165.1 cm [facility] Body weight 2022-07-21 13:34:00 112.311 kg [facility] BMI 2022-07-21 13:34:00 41.20 kg/m2 [facility] Syst[facility] blood pressure 2022-07-16 16:35:00 103 mm[Hg] [facility] Diastolic blood pressure 2022-07-16 16:35:00 72 mm[Hg] [facility] Heart rate 2022-07-16 16:35:00 90 /min [facility] Respiratory rate 2022-07-16 16:35:00 18 /min [facility] Body height 2022-07-16 16:35:00 162.6 cm [facility] Body weight 2022-07-16 16:35:00 111.54 kg [facility] BMI 2022-07-16 16:35:00 42.21 kg/m2 [facility] Oxygen saturation in Arterial blood by Pulse oximetry 2022-07-16 16:35:00 98 /min [facility] Systolic blood pressure 2022-07-14 16:41:00 104 mm[Hg] [facility] Diastolic blood pressure 2022-07-14 16:41:00 70 mm[Hg] [facility] Heart rate 2022-07-14 16:41:00 68 /min [facility] Body temperature 2022-07-14 16:41:00 36.83 [facility] Respiratory rate 2022-07-14 16:41:00 18 /min [facility] Body height 2022-07-14 16:41:00 165.1 cm [facility] Body weight 2022-07-14 16:41:00 111.131 kg [facility] BMI 2022-07-14 16:41:00 40.77 kg/m2 [facility] Systolic blood pressure 2022-07-11 13:49:00 108 mm[Hg] [facility] Diastolic blood pressure 2022-07-11 13:49:00 52 mm[Hg] [facility] Body temperature 2022-07-11 13:49:00 36.72 [facility] Respiratory rate 2022-07-11 13:49:00 18 /min [facility] Oxygen saturation in Arterial blood by Pulse oximetry 2022-07-11 13:49:00 100 /min [facility] Heart rate 2022-07-11 11:15:00 89 /min [facility] Body height 2022-07-11 01:10:00 165.1 cm [facility] Body weight 2022-07-11 01:10:00 111.585 kg [facility] BMI 2022-07-11 01:10:00 40.94 kg/m2 [facility] Systolic blood pressure 2022-06-30 15:31:00 109 mm[Hg] [facility] Diastolic blood pressure 2022-06-30 15:31:00 73 mm[Hg] [facility] Heart rate 2022-06-30 15:31:00 77 /min [facility] Respiratory rate 2022-06-30 15:31:00 18 /min [facility] Body height 2022-06-30 15:31:00 165.1 cm [facility] Body weight 2022-06-30 15:31:00 110.406 kg [facility] BMI 2022-06-30 15:31:00 40.50 kg/m2 [facility] Oxygen saturation in Arterial blood by Pulse oximetry 2022-06-30 15:31:00 97 /min [facility] Systolic blood pressure 2022-06-25 16:14:00 110 mm[Hg] [facility] Diastolic blood pressure 2022-06-25 16:14:00 72 mm[Hg] [facility] Heart rate 2022-06-25 16:14:00 117 /min [facility] Body temperature 2022-06-25 16:14:00 36.83 [facility] Respiratory rate 2022-06-25 16:14:00 18 /min [facility] Body height 2022-06-25 16:14:00 165.1 cm [facility] Body weight 2022-06-25 16:14:00 111.086 kg [facility] BMI 2022-06-25 16:14:00 40.75 kg/m2 [facility] height 2022-01-12 14:00:00 64 [in_i] Commo n [facility] [place] weight 2022-01-12 14:00:00 244.6 [lb_av] Co mmon [facility] temperature 2022-01-12 14:00:00 97.9 [degF] Com mon [facility] bmi 2022-01-12 14:00:00 41.98 kg/m2 Comm on [facility] oximetry 2022-01-12 14:00:00 99 % Commo n [facility] respiratory rate 2022-01-12 14:00:00 17 /min [facility] blood pressure systolic 2022-01-12 14:00:00 124 mm[Hg] [facility] blood pressure diastolic 2022-01-12 14:00:00 75 mm[Hg] [facility] height 2021-07-10 09:40:00 64 [in_i] Commo n [facility] weight 2021-07-10 09:40:00 240 [lb_av] Comm on [facility] temperature 2021-07-10 09:40:00 98 [degF] Comm on [facility] bmi 2021-07-10 09:40:00 41.19 kg/m2 Comm on [facility] height 2021-04-09 11:10:00 64 [in_i] Commo n [facility] weight 2021-04-09 11:10:00 240 [lb_av] Comm on [facility] temperature 2021-04-09 11:10:00 97.5 [degF] Com [facility] bmi 2021-04-09 11:10:00 41.19 kg/m2 Comm on [facility] height 2021-03-05 13:00:00 64 [in_i] Commo n [facility] weight 2021-03-05 13:00:00 240 [lb_av] Comm on [facility] temperature 2021-03-05 13:00:00 98 [degF] Comm on [facility] bmi 2021-03-05 13:00:00 41.19 kg/m2 Comm on [facility] height 2021-02-04 16:00:00 64 [in_i] Commo n [facility] weight 2021-02-04 16:00:00 245.0 [lb_av] Co mmon [facility] temperature 2021-02-04 16:00:00 97.1 [degF] Com mon [facility] bmi 2021-02-04 16:00:00 42.05 kg/m2 Comm on [facility] oximetry 2021-02-04 16:00:00 98 % Commo n [facility] respiratory rate 2021-02-04 16:00:00 17 /min [facility] blood pressure systolic 2021-02-04 16:00:00 116 mm[Hg] [facility] blood pressure diastolic 2021-02-04 16:00:00 68 mm[Hg] [facility] Procedures Procedure Date / Time Performed Performing Clinician Source POCT MOLECULAR STREP 2024-07-10 00:53:00 Leonor Mueller [facility] TROPONIN I 2024-07-04 00:51:00 Jarrett Navarro [facility] COMP. METABOLIC PANEL (56063) 2024-07-04 00:51:00 Jarrett Navarro [facility] CBC WITH DIFF 2024-07-04 00:51:00 Jarrett Navarro [facility] D-DIMER 2024-07-04 00:51:00 Jarrett Navarro [facility] N-TERMINAL PRO-BNP 2024-07-04 00:51:00 [facility] POCT MOLECULAR STREP 2024-06-29 01:25:00 Radha, Aurelio herbert [facility] POCT TEST 2024-05-13 06:36:00 Brooklynn Nagy [facility] XR KNEE <3 VW RIGHT 2024-05-13 06:12:16 Brooklynn Nagy [facility] COMP. METABOLIC PANEL (31473) 2023-12-01 04:34:00 Gildardo Dunne [facility] CBC WITH DIFF 2023-12-01 04:34:00 Gildardo Dunne [facility] URINALYSIS 2023-12-01 04:34:00 Gildardo Dunne [facility] POCT TEST 2023-12-01 04:33:00 Gildardo Dunne e [facility] XR KNEE 3 VW RIGHT 2023-12-01 04:24:34 Gildardo Dunne [facility] ASSIGNMENT OF BENEFITS 2023-12-01 03:21:42 Docto r Unassigned, [place] [facility] NOTICE OF PRIVACY PRACTICES 2023-12-01 02:41:06 Doctor Unassigned, [place] [facility] CONSENT/REFUSAL FOR DIAGNOSIS AND TREATMENT 2023-12-01 02:40:06 Doctor Unassigned, [place] [facility] ASSIGNMENT OF BENEFITS 2023-10-14 04:37:08 Docto r Unassigned, [place] [facility] XR HIPS 2 VW RIGHT 2023-10-14 04:26:25 Elen Benedict [facility] XR PELVIS <3 VW 2023-10-14 04:26:25 Elen Benedict [facility] POCT TEST 2023-10-14 04:08:00 Elen Benedict [facility] CONSENT/REFUSAL FOR DIAGNOSIS AND TREATMENT 2023-10-14 03:26:58 Doctor Unassigned, [place] [facility] POCT MOLECULAR FLU 2023-09-28 01:49:00 Unknown, Attend ing [facility] POCT MOLECULAR STREP 2023-09-28 01:43:00 Unknown, Atte piedad [facility] CONSENT/REFUSAL FOR DIAGNOSIS AND TREATMENT 2023-09-28 01:24:42 Doctor Unassigned, [place] [facility] XR CHEST 1 VW 2023-09-04 03:28:00 Elen Benedict [facility] CONSENT/REFUSAL FOR DIAGNOSIS AND TREATMENT 2023-09-04 02:58:37 Doctor Unassigned, [place] [facility] POCT TEST 2023-08-29 16:59:00 Nicole Chen [facility] URINALYSIS 2023-08-29 16:55:00 Ellen Nicole [facility] RAPID STREP SCREEN FOR GROUP A 2023-08-29 16:45:00 Ellen [facility] RAPID INFLUENZA A/B 2023-08-29 16:45:00 Ellen [facility] COVID-19 (ID NOW RAPID TESTING) 2023-08-29 16:45:00 Ellen [facility] CONSENT/REFUSAL FOR DIAGNOSIS AND TREATMENT 2023-08-29 16:17:13 Doctor Unassigned, [place] [facility] POCT MOLECULAR STREP 2023-02-14 01:10:00 Unknown, Atte piedad [facility] CONSENT FOR CONTRACEPTION 2022-11-05 06:01:00 Doctor Unassigned, [place] [facility] POCT TEST 2022-11-05 00:00:00 Josette Cheung [facility] CBC WITH DIFF 2022-09-28 10:16:00 Josette Cheung [facility] CENTRAL NEURAXIAL BLOCK 2022-09-27 17:43:59 Lila Peterson [facility] POCT URINALYSIS W/O SPECIFIC GRAVITY 2022-09-24 00:00:00 Kortney Trejo [facility] ADC ONLY - FERN TEST 2022-09-20 21:22:00 Josette Cheung [facility] CONSENT/REFUSAL FOR DIAGNOSIS AND TREATMENT 2022-09-20 20:41:32 Doctor Unassigned, [place] [facility] POCT URINALYSIS W/O SPECIFIC GRAVITY 2022-09-17 00:00:00 Josette Cheung [facility] ASSIGNMENT OF BENEFITS 2022-09-16 15:34:10 Docto r Unassigned, [place] [facility] CONSENT/REFUSAL FOR DIAGNOSIS AND TREATMENT 2022-09-16 15:33:45 Doctor Unassigned, [place] [facility] CONSENT/REFUSAL FOR DIAGNOSIS AND TREATMENT 2022-09-10 13:59:02 Doctor Unassigned, [place] [facility] POCT URINALYSIS W/O SPECIFIC GRAVITY 2022-09-01 21:55:00 Kortney Trejo [facility] POCT URINALYSIS W/O SPECIFIC GRAVITY 2022-08-27 00:00:00 JonatanJosette Roddy [facility] ADC ONLY - FERN TEST 2022-08-23 00:32:00 Adum, Kimberlyn Chan [facility] CONSENT/REFUSAL FOR DIAGNOSIS AND TREATMENT 2022-08-22 23:10:08 Doctor Unassigned, [place] [facility] ASSIGNMENT OF BENEFITS 2022-08-22 23:09:40 Docto r Unassigned, [place] [facility] ASSIGNMENT OF BENEFITS 2022-08-13 23:59:39 Docto r Unassigned, [place] [facility] CONSENT/REFUSAL FOR DIAGNOSIS AND TREATMENT 2022-08-13 23:55:23 Doctor Unassigned, [place] [facility] POCT URINALYSIS W/O SPECIFIC GRAVITY 2022-08-13 00:00:00 Jonatan Josette Pereyra [facility] CONSENT/REFUSAL FOR DIAGNOSIS AND TREATMENT 2022-08-08 20:14:56 Doctor Unassigned, [place] [facility] LIPASE 2022-07-31 13:17:00 Jarvis Mcqueen [facility] COMP. METABOLIC PANEL ([id number]) 2022-07-31 13:17:00 Jarvis Mcqueen [facility] CBC WITH DIFF 2022-07-31 13:17:00 Jarvis Mcqueen [facility] URINALYSIS 2022-07-31 13:17:00 Jarvis Mcqueen [facility] CONSENT/REFUSAL FOR DIAGNOSIS AND TREATMENT 2022-07-31 12:19:27 Doctor Unassigned, [place] [facility] ADC ONLY - FERN TEST 2022-07-30 03:23:00 AdumKimberlyn [facility] CONSENT/REFUSAL FOR DIAGNOSIS AND TREATMENT 2022-07-30 02:31:49 Doctor Unassigned, [place] [facility] POCT URINALYSIS W/O SPECIFIC GRAVITY 2022-07-30 00:00:00 Kortney Trejo [facility] AUTHORIZATION FOR RELEASE OF PHI 2022-07-29 05:01:00 Doctor Unassigned, [place] [facility] CONSENT/REFUSAL FOR DIAGNOSIS AND TREATMENT 2022-07-24 23:17:55 Doctor Unassigned, [place] [facility] ASSIGNMENT OF BENEFITS 2022-07-24 23:17:39 Docto r Unassigned, [place] [facility] TDAP VACCINE, >11 YRS, IM 2022-07-23 18:09:53 Kortney Trejo [facility] FLU VACC (), 6 MO-64 YRS, .5ML, IM, QUAD (FLUCELVAX) 2022-07-23 18:09:53 Kortney Trejo [facility] URINALYSIS 2022-07-21 14:02:00 Josette Cheung [facility] ADC CLC OR LCC ONLY - WET PREP 2022-07-21 14:02:00 Josette Cheung [facility] CONSENT/REFUSAL FOR DIAGNOSIS AND TREATMENT 2022-07-21 13:13:42 Doctor Unassigned, [place] [facility] ASSIGNMENT OF BENEFITS 2022-07-21 13:13:23 Docto r Unassigned, [place] [facility] POCT URINALYSIS W/O SPECIFIC GRAVITY 2022-07-16 16:39:00 Josette Cheung [facility] SCANNED LAB RESULTS 2022-07-16 05:01:00 Doctor Yessy urban, [place] [facility] ADC CLC OR LCC ONLY - WET PREP 2022-07-11 01:46:00 [facility] ONLY - FERN TEST 2022-07-11 01:44:00 Kirk Sam [facility] ASSIGNMENT OF BENEFITS 2022-07-11 00:47:49 Docto r Unassigned, [place] [facility] POCT URINALYSIS W/O SPECIFIC GRAVITY 2022-06-30 15:32:00 Kortney Trejo [facility] ASSIGNMENT OF BENEFITS 2022-06-28 15:33:01 Docto r Unassigned, [place] [facility] POCT URINALYSIS W/O SPECIFIC GRAVITY 2022-06-25 00:00:00 Dale Trejopatrick [facility] MR Knee wo contrast [id number] 2018-08-25 00:00:00 [place] [facility] US Extremity lower venous doppler bilat [id number] 2018-08-25 00:00:00 [facility] Encounters Start Date/Time End Date/Time Encounter Type Admission Type Attending Clinicians Care Facility Care Department Encounter ID Source 2022-12-28 07:26:01 Outpatient Langford, Fernandez STLMLC STLMLC [id number] [facility] 2022-07-11 11:05:16 Outpatient X KIMBERLYN SR [facility] [id number] [facility] 2021-11-04 13:55:18 Outpatient Langford, Fernandez STLMLC STLMLC [id number] [facility] 2021-11-04 13:10:23 Outpatient Langford, Fernandez STLMLC STLMLC [id number] [facility] 2021-11-04 12:57:22 Outpatient Langford, Fernandez STLMLC STLMLC [id number] [facility] 2021-11-04 12:25:15 Outpatient Langford, Fernandez STLMLC STLMLC [id number] [facility] 2021-11-04 12:13:17 Outpatient Langford, Fernandez STLMLC STLMLC [id number] [facility] 2021-11-04 12:00:49 Outpatient Langford, Fernandez STLMLC STLMLC [id number] [facility] 2021-11-04 11:54:10 Outpatient Langford, Fernandez STLMLC STLMLC [id number] [facility] 2021-11-04 11:51:45 Outpatient Langford, Fernandez STLMLC STLMLC [id number] [facility] 2021-08-11 08:26:00 Emergency [facility] [id number] [facility] 2021-08-10 22:05:53 Emergency [facility] [id number] [facility] 2021-08-06 18:42:34 Outpatient P [facility] [id number] [facility] 2021-08-06 18:05:33 Outpatient P [facility] [id number] [facility] 2021-08-06 18:04:40 Outpatient P [facility] [id number] [facility] 2024-12-07 11:00:00 2024-12-07 11:00:00 Outpatient SANTY YARBROUGH [id number] [facility] 2024-10-25 11:00:00 2024-10-25 11:00:00 Outpatient VINI GEE [id number] [facility] 2024-10-19 11:30:00 2024-10-19 11:30:00 Outpatient [facility]EMOS [id number] [facility] 2024-10-18 00:00:00 2024-10-18 00:00:00 Outpatient LOREN HERNANDEZ [id number] [facility] 2024-10-15 00:00:00 2024-10-15 00:00:00 Outpatient LOREN HERNANDEZ [id number] [facility] 2024-09-28 00:00:00 2024-09-28 00:00:00 Outpatient MD ANAT RECINOS [id number] [facility] 2024-09-07 00:00:00 2024-09-07 00:00:00 Outpatient LOREN HERNANDEZ [id number] [facility] 2024-08-30 13:00:00 2024-08-30 13:00:00 Outpatient LOREN HERNANDEZ [id number] [facility] 2024-08-30 00:00:00 2024-08-30 00:00:00 Outpatient TIFFANY DOUGLAS [id number] [facility] 2024-08-30 00:00:00 2024-08-30 00:00:00 Outpatient MD ANAT RECINOS [id number] [facility] 2024-08-15 00:00:00 2024-08-15 00:00:00 Outpatient MD [facility]AT RECINOS [id number] [facility] 2024-08-15 00:00:00 2024-08-15 00:00:00 Outpatient LOREN HERNANDEZ [id number] [facility] 2024-08-09 10:30:00 2024-08-09 10:30:00 Outpatient LOREN HERNANDEZ [id number] [facility] 2024-07-18 12:30:00 2024-07-18 12:30:00 Outpatient ANAT MERRITT [id number] [facility] 2024-07-10 10:30:00 2024-07-10 10:30:00 Outpatient LOREN HERNANDEZ [id number] [facility] 2024-07-09 19:20:00 2024-07-09 20:06:56 Outpatient R LEONOR MUELLER [facility] [id number] [facility] 2024-07-09 19:20:00 2024-07-09 20:06:56 Urgent Care Leonor Mueller Unknown, Attending [facility] .840.114 350.1.13.10 4.2.7.2.686 [id number] [facility] 2024-07-03 17:29:00 2024-07-03 21:41:00 Emergency X JARRETT NAVARRO SHINTA [facility] ERT [id number] [facility] 2024-07-03 17:29:00 2024-07-03 21:41:00 Emergency Jarrett Navarro [facility] AT [facility] .840.114 350.1.13.10 4.2.7.2.686 [id number] [facility] 2024-06-28 20:00:00 2024-06-28 20:20:00 Urgent Care Delvis Kaye Unknown, Attending [facility] 1.2.840.114 350.1.13.10 4.2.7.2.686 [id number] [facility] 2024-06-28 20:00:00 2024-06-28 20:00:00 Outpatient R DELVIS KAYE [facility] [id number] [facility] 2024-06-28 08:20:00 2024-06-28 08:20:00 Outpatient LAB90 ANAT MERRITT [id number] [facility] 2024-06-27 10:00:00 2024-06-27 10:00:00 Outpatient LOREN HERNANDEZ [id number] [facility] 2024-06-25 20:24:00 2024-06-25 21:05:00 Emergency X ESTHER GARZA SANDRA [facility] ERT [id number] [facility] 2024-06-25 20:24:00 2024-06-25 21:05:00 Emergency Esther Garza [facility] AT [facility] 1.2.840.114 350.1.13.10 4.2.7.2.686 [id number] [facility] 2024-06-25 19:00:00 2024-06-25 19:00:00 Outpatient KRYSTA BARRETO [id number] [facility] 2024-06-25 11:00:00 2024-06-25 11:00:00 Outpatient KAIDEN NG [id number] [facility] 2024-06-25 00:00:00 2024-06-25 00:00:00 Outpatient MD ANAT RECINOS [id number] [facility] 2024-06-16 00:00:00 2024-06-16 00:00:00 Outpatient TIFFANY DOUGLAS [id number] [facility] 2024-06-12 07:45:00 2024-06-12 07:45:00 Outpatient BERONICA MOORE ANAT MERRITT [id number] [facility] 2024-06-11 19:45:00 2024-06-11 19:45:00 Outpatient PASHA PEDROZA [id number] [facility] 2024-06-07 15:30:00 2024-06-07 15:30:00 Outpatient CHANTELL BOO [id number] [facility] 2024-06-06 14:20:00 2024-06-06 14:20:00 Outpatient ANAT MERRITT [id number] [facility] 2024-06-06 14:00:00 2024-06-06 14:00:00 Outpatient CHANTELL BOO [id number] [facility] 2024-06-05 00:00:00 2024-06-05 00:00:00 Outpatient MD ANAT RECINOS [id number] [facility] 2024-06-01 00:00:00 2024-06-01 00:00:00 Outpatient CHANTELL BOO [id number] [facility] 2024-05-30 19:00:00 2024-05-30 19:00:00 Outpatient GENET NI [id number] [facility] 2024-05-25 16:30:00 2024-05-25 16:30:00 Outpatient LOREN HERNANDEZ [id number] [facility] 2024-05-25 15:55:00 2024-05-25 15:55:00 Outpatient SIMON MERRITT [id number] [facility] 2024-05-23 00:00:00 2024-05-23 00:00:00 Outpatient ANAT MERRITT [id number] [facility]at Seybshanae 2024-05-22 15:30:00 2024-05-22 15:30:00 Outpatient LOREN HERNANDEZ [id number] [facility] 2024-05-18 15:55:00 2024-05-18 15:55:00 Outpatient LAB47 [facility]AT MERRITT [id number] [facility] 2024-05-18 15:05:00 2024-05-18 15:05:00 Outpatient TIFFANY DOUGLAS [facility] [id number] [facility] 2024-05-13 00:06:00 2024-05-13 02:18:00 Emergency X FRACISCO NAGY [facility] ERT [id number] [facility] 2024-05-13 00:06:00 2024-05-13 02:18:00 Emergency AdeBrooklynn rodriguezbarrett [facility] AT [facility] 1.2.840.114 350.1.13.10 4.2.7.2.686 [id number] [facility] 2024-05-10 20:45:00 2024-05-10 20:45:00 Outpatient HARI NAJERA [id number] [facility] 2024-05-08 11:00:00 2024-05-08 11:00:00 Outpatient LAB47 ANAT MERRITT [id number] [facility] 2024-05-07 13:00:00 2024-05-07 13:00:00 Outpatient LOREN HERNANDEZ [id number] [facility] 2024-05-05 20:35:00 2024-05-05 20:35:00 Outpatient JANET PERAZA [id number] [facility] 2024-05-01 10:30:00 2024-05-01 10:30:00 Outpatient LOREN HERNANDEZ [id number] [facility] 2024-04-13 14:30:00 2024-04-13 14:30:00 Outpatient JUNIOR BOONE [facility] [id number] [facility] 2023-11-30 21:48:00 2023-12-01 00:08:00 Emergency X Gildardo DUNNE [facility] ERT [id number] [facility] 2023-11-30 21:48:00 2023-12-01 00:08:00 Emergency Gildardo Dunne [facility] 1.0.114 350.1.13.10 4.2.7.2.686 [id number] [facility] 2023-10-26 13:00:00 2023-10-26 13:00:00 Outpatient R JOSETTE CHEUNG [facility] [id number] [facility] 2023-10-13 21:42:00 2023-10-13 23:48:00 Emergency X ELEN BENEDICT [facility] ERT [id number] [facility] 2023-10-13 21:42:00 2023-10-13 23:48:00 Emergency Elen Benedict [facility] 1..114 350.1.13.10 4.2.7.2.686 [id number] [facility] 2023-09-27 19:20:00 2023-09-27 20:33:42 Outpatient R HARSH HARO [facility] [id number] [facility] 2023-09-27 19:20:00 2023-09-27 20:33:42 Urgent Care Harsh Haro Unknown, Attending [facility] 1.114 350.1.13.10 4.2.7.2.686 [id number] [facility] 2023-09-27 00:00:00 2023-09-27 00:00:00 Orders Only Doctor Unassigned, [place] [facility] 1..114 350.1.13.10 4.2.7.2.686 [id number] [facility] 2023-09-03 21:06:00 2023-09-04 00:27:00 Emergency X ELEN BENEDICT [facility] ERT [id number] [facility] 2023-09-03 21:06:00 2023-09-04 00:27:00 Emergency Elen Benedict [facility] 1.0.114 350.1.13.10 4.2.7.2.686 [id number] [facility] 2023-08-29 10:21:00 2023-08-29 12:04:00 Emergency X ELLEN NICOLE [facility] ERT [id number] [facility] 2023-08-29 10:21:00 2023-08-29 12:04:00 Emergency Ellen [facility] 1..114 350.1.13.10 4.2.7.2.686 [id number] [facility] 2023-08-02 13:41:32 2023-08-02 13:41:32 Outpatient [facility] [id number] Leo Burgess 2023-05-25 10:30:00 2023-05-25 10:30:00 Outpatient R KORTNEY TREJO CHERYAL [facility] [id number] [facility] 2023-05-06 10:30:00 2023-05-06 10:30:00 Outpatient R JOSETTE CHEUNG [facility] [id number] [facility] 2023-03-12 00:00:00 2023-03-12 00:00:00 Patient Secure Msg Kortney Trejo [facility] 1.114 350.1.13.10 4.2.7.2.686 [id number] [facility] 2023-02-13 20:40:00 2023-02-13 20:40:00 Urgent Care GreenSydnie Unknown, Attending [facility] 1.114 350.1.13.10 4.2.7.2.686 [id number] [facility] 2023-02-13 20:40:00 2023-02-13 20:26:50 Outpatient R SYDNIE ANDRADE [facility] [id number] [facility] 2022-12-22 00:00:00 2022-12-22 00:00:00 (TEL) STLMLC STLMLC [id number] [facility] 2022-12-07 08:00:00 2022-12-07 08:00:00 Outpatient R KORTNEY TREJO CHERYAL [facility] [id number] [facility] 2022-11-05 10:30:00 2022-11-05 11:06:14 Outpatient R JOSETTE CHEUNG [facility] [id number] [facility] 2022-11-05 10:30:00 2022-11-05 11:06:14 Office Visit Josette Cheung [facility] 1.0.114 350.1.13.10 4.2.7.2.686 [id number] [facility] 2022-11-05 00:00:00 2022-11-05 00:00:00 Orders Only Doctor Unassigned, [place] [facility] 1.2.840.114 350.1.13.10 4.2.7.2.686 [id number] [facility] 2022-11-04 00:00:00 2022-11-04 00:00:00 Patient Secure Shayy Pugh [facility] 1.840.114 350.1.13.10 4.2.7.2.686 [id number] [facility] 2022-10-29 00:00:00 2022-10-29 00:00:00 Telephone Josette Cheung [facility] 1.840.114 350.1.13.10 4.2.7.2.686 [id number] [facility] 2022-10-21 10:45:00 2022-10-21 10:52:00 Outpatient R ANTWANKORTNEY RDISCOLL KORTNEY TREJO [facility] [id number] [facility] 2022-10-21 10:45:00 2022-10-21 10:52:00 Office Visit MayaKortney [facility] 1.20.114 350.1.13.10 4.2.7.2.686 [id number] [facility] 2022-10-15 10:00:00 2022-10-15 10:00:00 Outpatient R JOSETTE CHEUNG [facility] [id number] [facility] 2022-10-13 09:30:00 2022-10-13 09:34:04 [facility] [id number] [facility] 2022-10-13 09:30:00 2022-10-13 09:34:04 [facility] 1..114 350.1.13.10 4.2.7.2.686 [id number] [facility] 2022-10-06 14:45:00 2022-10-06 14:45:00 [facility] [id number] [facility] 2022-09-27 03:57:00 2022-09-28 15:45:00 Inpatient X JOSETTE CHEUNG [facility] [id number] [facility] 2022-09-27 03:57:00 2022-09-28 15:45:00 Hospital Encounter Josette Cheung [facility] 1.2840.114 350.1.13.10 4.2.7.2.686 [id number] [facility] 2022-09-27 11:12:00 2022-09-27 14:21:00 Anesthesia Event Lila Peterson Stacey [facility] 1.2.840.114 350.1.13.10 4.2.7.2.686 [id number] [facility] 2022-09-24 13:15:00 2022-09-24 13:30:00 Inventory Associate Visit Pob, Adc Lab Main Josette Cheung [facility] 1.2840.114 350.1.13.10 4.2.7.2.686 [id number] [facility] 2022-09-24 09:15:00 2022-09-24 09:51:57 [facility] [id number] [facility] 2022-09-24 09:15:00 2022-09-24 09:51:57 Routine Visit Kortney Trejo [facility] 1.2840.114 350.1.13.10 4.2.7.2.686 [id number] [facility] 2022-09-20 14:47:00 2022-09-20 16:05:00 Outpatient X JOSETTE CHEUNG [facility] [id number] [facility] 2022-09-20 14:47:00 2022-09-20 16:05:00 Emergency Josette Cheung [facility] 1.2.840.114 350.1.13.10 4.2.7.2.686 [id number] [facility] 2022-09-20 00:00:00 2022-09-20 00:00:00 Telephone Kortney Trejo [facility] 1.2.840.114 350.1.13.10 4.2.7.2.686 [id number] [facility] 2022-09-17 10:30:00 2022-09-17 10:37:48 Outpatient R JOSETTE CHEUNG [facility] [id number] [facility] 2022-09-17 10:30:00 2022-09-17 10:37:48 Routine Visit Josette Cheung [facility] 1..840.114 350.1.13.10 4.2.7.2.686 [id number] [facility] 2022-09-16 09:42:00 2022-09-16 11:30:00 Outpatient X JOSETTE CHEUNG [facility] [id number] [facility] 2022-09-16 09:42:00 2022-09-16 11:30:00 Emergency Josette Cheung [facility] 1..840.114 350.1.13.10 4.2.7.2.686 [id number] [facility] 2022-09-10 08:14:00 2022-09-10 10:42:00 Outpatient X JOSETTE CHEUNG [facility] [id number] [facility] 2022-09-10 08:14:00 2022-09-10 10:42:00 [facility] 1..840.114 350.1.13.10 4.2.7.2.686 [id number] [facility] 2022-09-10 10:00:00 2022-09-10 10:00:00 Outpatient R KORTNEY TREJO CHERY[facility] [id number] [facility] 2022-09-09 10:00:00 2022-09-09 10:19:15 Outpatient R KORTNEY TREJO CHERY[facility] [id number] [facility] 2022-09-09 10:00:00 2022-09-09 10:19:15 Routine Visit Kortney Trejo [facility] 1.2.840.114 350.1.13.10 4.2.7.2.686 [id number] [facility] 2022-09-09 00:00:00 2022-09-09 00:00:00 Telephone Kortney Trejo [facility] 1.2.840.114 350.1.13.10 4.2.7.2.686 [id number] [facility] 2022-09-08 00:00:00 2022-09-08 00:00:00 Nurse Triage Sarah, [facility] 1.2.840.114 350.1.13.10 4.2.7.2.686 [id number] [facility] 2022-09-08 00:00:00 2022-09-08 00:00:00 Patient Secure Msg [facility] 1.2.840.114 350.1.13.10 4.2.7.2.686 [id number] [facility] 2022-09-07 19:07:00 2022-09-07 21:15:00 Outpatient X ADKIMBERLYN ROSA [facility] [id number] [facility] 2022-09-07 19:07:00 2022-09-07 21:15:00 Emergency AdKimberlyn rosa [facility] 1.2.840.114 350.1.13.10 4.2.7.2.686 [id number] [facility] 2022-09-06 08:15:00 2022-09-06 08:29:53 Inventory Associate Visit Ultrasound, Meche Greenfield [facility] AUDIO VISUAL DESIGN ENGINEER [facility]ER[facility] 1.2.840.114 350.1.13.10 4.2.7.2.686 [id number] [facility] 2022-09-06 08:15:00 2022-09-06 08:15:00 Outpatient P MECHE ARROYO [facility] [id number] [facility] 2022-09-06 00:00:00 2022-09-06 00:00:00 Telephone Migdalia Alberto [facility] 1.840.114 350.1.13.10 4.2.7.2.686 [id number] [facility] 2022-09-04 20:58:00 2022-09-04 22:00:00 Outpatient X [facility]RA [facility] [id number] [facility] 2022-09-04 20:58:00 2022-09-04 22:00:00 Emergency Jarvis Mcqueen [facility] 1.0.114 350.1.13.10 4.2.7.2.686 [id number] [facility] 2022-09-04 00:00:00 2022-09-04 00:00:00 Nurse Triage Dena Manrique [facility] 1..114 350.1.13.10 4.2.7.2.686 [id number] [facility] 2022-09-02 04:41:00 2022-09-02 07:04:00 Outpatient P JOSETTE CHEUNG [facility] [id number] [facility] 2022-09-02 04:41:00 2022-09-02 07:04:00 Hospital Encounter Josette Cheung [facility] 1.840.114 350.1.13.10 4.2.7.2.686 [id number] [facility] 2022-09-01 15:45:00 2022-09-01 16:36:53 [facility] [id number] [facility] 2022-09-01 15:45:00 2022-09-01 16:36:53 [facility] 1.0.114 350.1.13.10 4.2.7.2.686 [id number] [facility] 2022-08-31 00:00:00 2022-08-31 00:00:00 [facility] 1..114 350.1.13.10 4.2.7.2.686 [id number] [facility] 2022-08-27 10:00:00 2022-08-27 11:13:25 Outpatient R JOSETTE CHEUNG [facility] [id number] [facility] 2022-08-27 10:00:00 2022-08-27 11:13:25 Routine Visit Josette Cheung [facility] 1.114 350.1.13.10 4.2.7.2.686 [id number] 134 [id number] [facility] 2022-08-23 13:45:00 2022-08-23 13:45:00 Outpatient R JOSETTE CHEUNG [facility] [id number] [facility] 2022-08-22 17:21:00 2022-08-22 20:03:00 Outpatient X KIMBERLYN SR [facility] [id number] [facility] 2022-08-22 17:21:00 2022-08-22 20:03:00 Emergency Kimberlyn Sr [facility] 1..114 350.1.13.10 4.2.7.2.686 [id number] [facility] 2022-08-22 00:00:00 2022-08-22 00:00:00 Orders Only Doctor Unassigned, [place] [facility] 1.2.840.114 350.1.13.10 4.2.7.2.686 [id number] [facility] 2022-08-13 19:05:00 2022-08-13 20:17:00 Outpatient X ADKIMBERLYN ROSA [facility] [id number] [facility] 2022-08-13 19:05:00 2022-08-13 20:17:00 Emergency Admariya Kimberlyn L [facility] 1.2840.114 350.1.13.10 4.2.7.2.686 [id number] [facility] 2022-08-13 10:00:00 2022-08-13 10:00:00 Routine Visit Kortney Trejo [facility] 1.20.114 350.1.13.10 4.2.7.2.686 [id number] [facility] 2022-08-13 10:00:00 2022-08-13 09:48:20 Outpatient R KORTNEY TREJO [facility] [id number] [facility] 2022-08-11 12:30:00 2022-08-11 12:30:00 Outpatient R [facility] [id number] [facility] 2022-08-09 11:00:00 2022-08-09 11:17:45 Outpatient R KORTNEY TREJO [facility] [id number] [facility] 2022-08-09 11:00:00 2022-08-09 11:17:45 [facility] 1.2840.114 350.1.13.10 4.2.7.2.686 [id number] 134 [id number] [facility] [facility]-08-08 15:26:00 2022-08-08 16:35:00 Outpatient X JOSETTE CHEUNG [facility] [id number] [facility] 2022-08-08 15:26:00 2022-08-08 16:35:00 Emergency Elen Benedict Josette Cheung [facility] 1.2.840.114 350.1.13.10 4.2.7.2.686 [id number] [facility] 2022-08-02 08:30:00 2022-08-02 09:00:00 Office Visit Kortney Trejo [facility] 1..840.114 350.1.13.10 4.2.7.2.686 [id number] 134 [id number] [facility] 2022-08-02 08:30:00 2022-08-02 08:30:00 Outpatient R KORTNEY TREJO [facility] [id number] [facility] 2022-07-31 07:18:00 2022-07-31 09:27:00 Emergency X ANISASHMUEL, JARVIS [facility] ERT [id number] [facility] 2022-07-31 07:18:00 2022-07-31 09:27:00 Emergency Vasut, Jarvis J [facility] 1.2.840.114 350.1.13.10 4.2.7.2.686 [id number] [id number] [facility] 2022-07-30 13:30:00 2022-07-30 13:44:47 Outpatient R KORTNEY TREJO [facility] [id number] [facility] 2022-07-30 13:30:00 2022-07-30 13:44:47 Routine Visit Tritschler, Cheryal [facility] 1.2840.114 350.1.13.10 4.2.7.2.686 [id number] 134 [id number] [facility] 2022-07-29 21:45:00 2022-07-29 23:36:00 Outpatient X KIMBERLYN SR [facility] [id number] [facility] 2022-07-29 21:45:00 2022-07-29 23:36:00 Emergency Moriah Lay Vivian L [facility] 1.2840.114 350.1.13.10 4.2.7.2.686 [id number] [id number] [facility] 2022-07-26 15:30:00 2022-07-26 15:30:00 Outpatient R KORTNEY TREJO [facility] [id number] [facility] 2022-07-26 00:00:00 2022-07-26 00:00:00 Telephone Josette Cheung [facility] 1.2840.114 350.1.13.10 4.2.7.2.686 [id number] 134 [id number] [facility] 2022-07-24 18:27:00 2022-07-24 20:15:00 Outpatient X JOSETTE CHEUNG [facility] [id number] [facility] 2022-07-24 18:27:00 2022-07-24 20:15:00 Emergency Josette Cheung [facility] 1.2840.114 350.1.13.10 4.2.7.2.686 [id number] [id number] [facility] 2022-07-23 13:00:00 2022-07-23 13:31:03 Outpatient R KORTNEY TREJO [facility] [id number] [facility] 2022-07-23 13:00:00 2022-07-23 13:31:03 Routine Visit Kortney Trejo [facility] 1.2.0.114 350.1.13.10 4.2.7.2.686 [id number] 134 [id number] [facility] 2022-07-23 00:00:00 2022-07-23 00:00:00 Telephone Josette Cheung [facility] 1.2.840.114 350.1.13.10 4.2.7.2.686 [id number] 134 [id number] [facility] 2022-07-22 00:00:00 2022-07-22 00:00:00 Telephone Josette Cheung [facility] 1.2.114 350.1.13.10 4.2.7.2.686 [id number] 134 [id number] [facility] 2022-07-21 08:13:00 2022-07-21 11:00:00 Outpatient P JOSETTE CHEUNG [facility] OBS [id number] [facility] 2022-07-21 08:13:00 2022-07-21 11:00:00 Hospital Encounter Josette Cheung Roddy [facility] 1.284.114 350.1.13.10 4.2.7.2.686 [id number] [facility] 2022-07-16 11:30:00 2022-07-16 12:01:54 Outpatient R JOSETTE CHEUNG [facility] [id number] [facility] 2022-07-16 11:30:00 2022-07-16 12:01:54 Routine Visit Josette Cheung [facility] 1.2.114 350.1.13.10 4.2.7.2.686 [id number] 134 [id number] [facility] 2022-07-16 00:00:00 2022-07-16 00:00:00 Orders Only Doctor Unassigned, [place] [facility] 1.2.840.114 350.1.13.10 4.2.7.2.686 [id number] [facility] 2022-07-14 11:30:00 2022-07-14 12:03:26 Outpatient R MAYA KORTNEY CORTEZ [facility] [id number] [facility] 2022-07-14 11:30:00 2022-07-14 12:03:26 Office Visit Kortney Trejo [facility] 1.20.114 350.1.13.10 4.2.7.2.686 [id number] 134 [id number] [facility] 2022-07-10 19:56:00 2022-07-11 10:46:00 Outpatient X SAM BRADLEY [facility] [id number] [facility] 2022-07-10 19:56:00 2022-07-11 10:46:00 Emergency Sam Bradley [facility] 1.840.114 350.1.13.10 4.2.7.2.686 [id number] 083 [id number] [facility] 2022-07-10 00:00:00 2022-07-10 00:00:00 Orders Only Doctor Unassigned, [place] [facility] 1.840.114 350.1.13.10 4.2.7.2.686 [id number] [id number] [facility] 2022-07-08 08:45:00 2022-07-08 09:00:00 Inventory Associate Visit Pob, Adc Lab Main Colebhumika Kortney [facility] 1.20.114 350.1.13.10 4.2.7.2.686 [id number] [facility] 2022-07-08 08:45:00 2022-07-08 08:45:00 Outpatient R KORTNEY TRJEO [facility] [id number] [facility] 2022-06-30 10:30:00 2022-06-30 10:45:05 Outpatient R KORTNEY TREJO [facility] [id number] [facility] 2022-06-30 10:30:00 2022-06-30 10:45:05 Routine Visit Kortney Trejo AZALY[facility] 1..114 350.1.13.10 4.2.7.2.686 [id number] 134 [id number] [facility] 2022-06-30 10:30:00 2022-06-30 10:30:00 Outpatient R KORTNEY TREJO [facility] [id number] [facility] 2022-06-30 10:30:00 2022-06-30 10:30:00 Outpatient R KORTNEY TREJO [facility] [id number] [facility] 2022-06-28 14:15:00 2022-06-28 14:30:00 Inventory Associate Visit Lalito, [place] Lab Main Kortney Trejo [facility] 1.840.114 350.1.13.10 4.2.7.2.686 [id number] [facility] 2022-06-28 14:15:00 2022-06-28 14:15:00 Outpatient R KORTNEY TREJO [facility] [id number] [facility] 2022-06-28 00:00:00 2022-06-28 00:00:00 Orders Only Doctor Unassigned, [place] [facility] 1.840.114 350.1.13.10 4.2.7.2.686 [id number] [id number] [facility] 2022-06-25 11:30:00 2022-06-25 11:30:00 Office Visit Kortney Trejo [facility] 1.2.840.114 350.1.13.10 4.2.7.2.686 [id number] 134 [id number] [facility] 2022-06-25 11:30:00 2022-06-25 11:26:42 Outpatient R KORTNEY TREJO [facility] [id number] [facility] 2022-06-24 09:30:00 2022-06-24 09:30:00 Outpatient R JOSETTE CHEUNG [facility] [id number] [facility] 2022-06-24 00:00:00 2022-06-24 00:00:00 [facility] 1.2.840.114 350.1.13.10 4.2.7.2.686 [id number] 134 [id number] [facility] 2022-06-22 00:00:00 2022-06-22 00:00:00 Telephone Josette Cheung [facility] 1.2.840.114 350.1.13.10 4.2.7.2.686 [id number] 134 [id number] [facility] 2022-06-18 10:30:00 2022-06-18 11:52:49 Inventory Associate Visit 2, [facility] Migdalia Vazquez [facility] 1.2.840.114 350.1.13.10 4.2.7.2.686 [id number] [facility] 2022-06-18 10:30:00 2022-06-18 10:30:00 Outpatient P MIGDALIA VAZQUEZ SHANNON [facility] [id number] [facility] 2022 14:00:00 2022 15:15:53 Outpatient R JOSETTE CHEUNG [facility] [id number] [facility] 2022 14:00:00 2022 15:15:53 Routine Visit [facility] 1.2840.114 350.1.13.10 4.2.7.2.686 [id number] 134 [id number] [facility] 2022 00:00:00 2022 00:00:00 Orders Only Doctor Unassigned, [place] [facility] 1.2840.114 350.1.13.10 4.2.7.2.686 [id number] [facility] 2022-06-02 13:30:00 2022-06-02 14:07:33 Outpatient R KORTNEY TREJO CHERY[facility] [id number] [facility] 2022-06-02 13:30:00 2022-06-02 14:07:33 Routine Visit Kortney Trejo [facility] 1.840.114 350.1.13.10 4.2.7.2.686 [id number] 134 [id number] [facility] 2022-05-21 08:00:00 2022-05-21 08:59:22 Inventory Associate Visit 2, [facility] Us Room Romel Arroyojimenez [facility] 1.840.114 350.1.13.10 4.2.7.2.686 [id number] [facility] 2022-05-21 08:00:00 2022-05-21 08:00:00 Outpatient P MECHE ARROYO [facility] [id number] [facility] 2022-05-18 10:00:00 2022-05-18 10:00:00 Outpatient R LEONOR MUELLER [facility] [id number] [facility] 2022-05-17 14:00:00 2022-05-17 14:00:00 Outpatient P [facility] [id number] [facility] 2022-05-17 14:00:00 2022-05-17 14:00:00 Outpatient P [facility] [id number] [facility] 2022-05-06 00:00:00 2022-05-06 00:00:00 Telephone Kortney Trejo [facility] 1.2840.114 350.1.13.10 4.2.7.2.686 [id number] 134 [id number] [facility] 2022-05-05 13:30:00 2022-05-05 14:17:16 [facility] [id number] [facility] 2022-05-05 13:30:00 2022-05-05 14:17:16 Routine Visit Kortney Trejo [facility] 1.0.114 350.1.13.10 4.2.7.2.686 [id number] 134 [id number] [facility] 2022-05-03 00:00:00 2022-05-03 00:00:00 Case Management [facility] 1.2840.114 350.1.13.10 4.2.7.2.686 [id number] 134 [id number] [facility] 2022-04-29 00:00:00 2022-04-29 00:00:00 [facility] 1.2840.114 350.1.13.10 4.2.7.2.686 [id number] 134 [id number] [facility] 2022-04-28 00:00:00 2022-04-28 00:00:00 [facility] 1.2840.114 350.1.13.10 4.2.7.2.686 [id number] 134 [id number] [facility] 2022-04-27 00:00:00 2022-04-27 00:00:00 Patient Secure [facility]sg [facility] 1.2.840.114 350.1.13.10 4.2.7.2.686 [id number] 134 [id number] [facility] 2022-04-23 00:00:00 2022-04-23 00:00:00 [facility] 1.2.840.114 350.1.13.10 4.2.7.2.686 [id number] 134 [id number] [facility] 2022-04-14 09:15:00 2022-04-14 09:19:38 Outpatient R [facility] [id number] [facility] 2022-04-14 09:15:00 2022-04-14 09:19:38 Routine Visit Kortney Trejo [facility] 1.2.840.114 350.1.13.10 4.2.7.2.686 [id number] 134 [id number] [facility] 2022-04-11 05:57:00 2022-04-11 06:10:00 Emergency X ESTHER GARZA [facility] ERT [id number] [facility] 2022-04-11 05:57:00 2022-04-11 06:10:00 Emergency Esther Garza [facility] 1.2.840.114 350.1.13.10 4.2.7.2.686 [id number] [facility] 2022-04-11 00:00:00 2022-04-11 00:00:00 Nurse Triage Truong Leo [facility] 1.2.840.114 350.1.13.10 4.2.7.2.686 [id number] [facility] 2022-04-09 00:00:00 2022-04-09 00:00:00 Orders Only Doctor Unassigned, [place] [facility] 1.2840.114 350.1.13.10 4.2.7.2.686 [id number] [facility] 2022-04-07 09:00:00 2022-04-07 09:31:10 Outpatient R KORTNEY TREJO [facility] [id number] [facility] 2022-04-07 09:00:00 2022-04-07 09:31:10 Routine Visit Kortney Trejo [facility] 1.840.114 350.1.13.10 4.2.7.2.686 [id number] 134 [id number] [facility] 2022-04-07 09:00:00 2022-04-07 09:00:00 Outpatient R KORTNEY TREJO [facility] [id number] [facility] 2022-04-05 08:26:00 2022-04-05 08:44:00 Emergency X ESTHER GARZA [facility] ERT [id number] [facility] 2022-04-05 08:26:00 2022-04-05 08:44:00 Emergency Esther Garza [facility] 1.840.114 350.1.13.10 4.2.7.2.686 [id number] [facility] 2022-04-05 00:00:00 2022-04-05 00:00:00 Letter (Out) Cecy Wesley [facility] 1.2840.114 350.1.13.10 4.2.7.2.686 [id number] [facility] 2022-04-05 00:00:00 2022-04-05 00:00:00 Orders Only Doctor Unassigned, [place] [facility] 1.2840.114 350.1.13.10 4.2.7.2.686 [id number] [facility] 2022-04-04 16:20:00 2022-04-04 16:46:38 Outpatient R LEONOR MUELLER [facility] [id number] [facility] 2022-04-04 16:20:00 2022-04-04 16:46:38 Urgent Care Leonor Mueller [facility]?MELANIESherif [facility] 1.2.840.114 350.1.13.10 4.2.7.2.686 [id number] [facility] 2022-04-01 00:00:00 2022-04-01 00:00:00 Telephone CheungJosette [facility] 1..840.114 350.1.13.10 4.2.7.2.686 [id number] 134 [id number] [facility] 2022-04-01 00:00:00 2022-04-01 00:00:00 Refill Kortney Trejo [facility] 1.840.114 350.1.13.10 4.2.7.2.686 [id number] 134 [id number] [facility] 2022-03-31 09:30:00 2022-03-31 09:45:00 Inventory Associate Visit Lab, Marcos Trejo [facility] 1..840.114 350.1.13.10 4.2.7.2.686 [id number] [facility] 2022-03-31 09:30:00 2022-03-31 09:30:00 Outpatient R [facility] [id number] [facility] 2022-03-31 09:30:00 2022-03-31 09:30:00 Outpatient R KORTNEY TREJO CHERYAL [facility] [id number] [facility] 2022-03-31 00:00:00 2022-03-31 00:00:00 Orders Only Doctor Unassigned, [place] [facility] 1.2.840.114 350.1.13.10 4.2.7.2.686 [id number] [facility] 2022-03-24 10:00:00 2022-03-24 10:13:45 Outpatient R KORTNEY TREJO CHERY[facility] [id number] [facility] 2022-03-24 10:00:00 2022-03-24 10:13:45 Office Visit Kortney Trejo [facility] 1.2.840.114 350.1.13.10 4.2.7.2.686 [id number] 134 [id number] [facility] 2022-03-24 00:00:00 2022-03-24 00:00:00 [facility] ([facility] 1.2840.114 350.1.13.10 4.2.7.2.686 [id number] 134 [id number] [facility] 2022-03-20 20:41:00 2022-03-21 01:22:00 Emergency X ELPIDIO MARTINEZ [facility] ERT [id number] [facility] 2022-03-20 20:41:00 2022-03-21 01:22:00 Emergency Elpidio Martinez [facility] 1.2.840.114 350.1.13.10 4.2.7.2.686 [id number] [facility] 2022-03-17 00:00:00 2022-03-17 00:00:00 Outpatient R KORTNEY TREJO CHERY[facility] [id number] [facility] 2022-03-12 00:00:00 2022-03-12 00:00:00 Telephone Josette Cheung Roddy [facility] 1.2840.114 350.1.13.10 4.2.7.2.686 [id number] 134 [id number] [facility] 2022-03-10 13:00:00 2022-03-10 13:44:04 Outpatient R HAVENKORTNEY OQUENDOALEXYAMILA [facility] [id number] [facility] 2022-03-10 13:00:00 2022-03-10 13:44:04 [facility] 1.2840.114 350.1.13.10 4.2.7.2.686 [id number] 134 [id number] [facility] 2022-03-10 13:00:00 2022-03-10 13:00:00 Outpatient R HAVENKUNALEXKORTNEY DRISCOLL HAVENKUNALEXYAMILA [facility] [id number] [facility] 2022-03-02 00:00:00 2022-03-02 00:00:00 Patient Secure Msg Maya [facility] 1.2.840.114 350.1.13.10 4.2.7.2.686 [id number] 134 [id number] [facility] 2022-03-01 15:00:00 2022-03-01 15:33:04 Outpatient R HAVENKORTNEY OQUENDO HAVENKUNALEXYAMILA [facility] [id number] [facility] 2022-03-01 15:00:00 2022-03-01 15:33:04 [facility] 1.2.840.114 350.1.13.10 4.2.7.2.686 [id number] 134 [id number] [facility] 2022-03-01 00:00:00 2022-03-01 00:00:00 Letter (Out) Kortney Trejo [facility] 1.2.840.114 350.1.13.10 4.2.7.2.686 [id number] 134 [id number] [facility] 2022-02-24 11:06:00 2022-02-24 12:11:00 Emergency X KAI LARKIN [facility] ERT [id number] [facility] 2022-02-24 11:06:00 2022-02-24 12:11:00 Emergency Kai Larkin [facility] 1.2.840.114 350.1.13.10 4.2.7.2.686 [id number] [facility] 2022-02-24 11:06:00 2022-02-24 12:11:00 Emergency X KAI LARKIN [facility] ERT [id number] [facility] 2022-02-21 13:39:00 2022-02-21 14:32:00 Emergency X ELPIDIO MARTINEZ [facility] ERT [id number] [facility] 2022-02-21 13:39:00 2022-02-21 14:32:00 Emergency Elpidio Martinez S [facility] 1.2.840.114 350.1.13.10 4.2.7.2.686 [id number] [facility] 2022-02-19 00:00:00 2022-02-19 00:00:00 Telephone Josette Cheung [facility] 1.2.840.114 350.1.13.10 4.2.7.2.686 [id number] 134 [id number] [facility] 2022-02-16 09:00:00 2022-02-16 09:00:00 Outpatient R KORTNEY TREJO CHERYAL [facility] [id number] [facility] 2022-02-15 09:30:00 2022-02-15 10:32:37 Outpatient R KORTNEY TREJO [facility] [id number] [facility] 2022-02-15 09:30:00 2022-02-15 10:32:37 [facility] 1.20.114 350.1.13.10 4.2.7.2.686 [id number] 134 [id number] [facility] 2022-02-14 13:00:00 2022-02-14 13:20:00 Urgent Care Ceron, [facility] 1.2.114 350.1.13.10 4.2.7.2.686 [id number] [facility] 2022-02-14 13:00:00 2022-02-14 13:00:[address] [facility] [id number] [facility] 2022-02-14 00:00:00 2022-02-14 00:00:00 Letter (Out) Osmany [facility] 1.2114 350.1.13.10 4.2.7.2.686 [id number] [facility] 2022-02-12 00:00:00 2022-02-12 00:00:00 Telephone Maya [facility] 1.20.114 350.1.13.10 4.2.7.2.686 [id number] 134 [id number] [facility] 2022-02-11 13:00:00 2022-02-11 13:15:00 Inventory Associate Visit Lab, Ang - Juan Pablo Robledojere [facility] 1..114 350.1.13.10 4.2.7.2.686 [id number] [facility] 2022-02-11 13:00:00 2022-02-11 13:00:00 Outpatient [facility]KORTNEY [facility]QU[facility] [id number] [facility] 2022-02-10 13:00:00 2022-02-10 13:25:06 Outpatient R HAVENKORTNEY [facility] [id number] [facility] 2022-02-10 13:00:00 2022-02-10 13:25:06 Routine Visit [facility] 1.0.114 350.1.13.10 4.2.7.2.686 [id number] 134 [id number] [facility] 2022-02-10 00:00:00 2022-02-10 00:00:00 Patient Secure John Gomez [facility] 1.20.114 350.1.13.10 4.2.7.2.686 [id number] 134 [id number] [facility] 2022-02-09 13:00:00 2022-02-09 13:15:00 Inventory Associate Visit Lab, Marcos Robledojere [facility]ILD[facility] 1.284.114 350.1.13.10 4.2.7.2.686 [id number] [facility] 2022-02-09 13:00:00 2022-02-09 13:00:00 Outpatient [facility] [id number] [facility] 2022-02-09 09:00:00 2022-02-09 09:36:35 Routine Visit [facility] 1.20.114 350.1.13.10 4.2.7.2.686 [id number] [facility] 2022-02-05 13:19:16 2022-02-05 23:59:00 Outpatient R KORTNEY TREJO [facility] [id number] [facility] 2022-02-05 13:19:16 2022-02-05 23:59:00 Hospital Encounter Kortney Trejo [facility] 1.2.840.114 350.1.13.10 4.2.7.2.686 [id number] [facility] 2022-02-05 00:00:00 2022-02-05 00:00:00 Orders Only Doctor Unassigned, [place] [facility] 1.840.114 350.1.13.10 4.2.7.2.686 [id number] [facility] 2022-02-03 14:22:00 2022-02-03 17:02:00 Emergency X NIXON PERDUE [facility] ERT [id number] [facility] 2022-02-03 14:22:00 2022-02-03 17:02:00 Emergency Nixon Perdue [facility] 1.2840.114 350.1.13.10 4.2.7.2.686 [id number] [facility] 2022-02-03 08:00:00 2022-02-03 08:15:00 Inventory Associate Visit Pob, Adc Lab Main Kortney Trejo [facility] 1..114 350.1.13.10 4.2.7.2.686 [id number] [facility] 2022-02-03 08:00:00 2022-02-03 08:00:00 Outpatient R KORTNEY TREJO [facility] [id number] [facility] 2022-02-03 00:00:00 2022-02-03 00:00:00 Patient Secure Msg John Cain [facility] 1.2.840.114 350.1.13.10 4.2.7.2.686 [id number] [facility] 2022-02-02 09:00:00 2022-02-02 09:20:46 Outpatient R [facility] [id number] [facility] 2022-02-02 09:00:00 2022-02-02 09:20:46 Routine Visit Maya [facility] 1..840.114 350.1.13.10 4.2.7.2.686 [id number] [facility] 2022-02-02 09:00:00 2022-02-02 09:20:46 Outpatient R [facility] [id number] [facility] 2022-02-02 00:00:00 2022-02-02 00:00:00 Patient Secure g Maya [facility] 1..840.114 350.1.13.10 4.2.7.2.686 [id number] [facility] 2022-02-01 13:30:00 2022-02-01 17:02:00 Emergency X KAI LARKIN [facility] ERT [id number] [facility] 2022-02-01 13:30:00 2022-02-01 17:02:00 Emergency Kai Larkin [facility] 1.2.840.114 350.1.13.10 4.2.7.2.686 [id number] [facility] 2022-02-01 00:00:00 2022-02-01 00:00:00 Telephone Kortney Trejo [facility] 1..114 350.1.13.10 4.2.7.2.686 [id number] 134 [id number] [facility] 2022-02-01 00:00:00 2022-02-01 00:00:00 Case Management Maya [facility] 1.0.114 350.1.13.10 4.2.7.2.686 [id number] 134 [id number] [facility] 2022-01-30 09:15:00 2022-01-30 09:30:00 Inventory Associate Visit Lalito, [place] [facility] Main [facility] [facility] 1.114 350.1.13.10 4.2.7.2.686 [id number] 353 [id number] [facility] 2022-01-30 09:15:00 2022-01-30 09:15:00 Outpatient R KORTNEY [facility] [id number] [facility] 2022-01-29 00:00:00 2022-01-29 00:00:00 Patient Secure Msg Doctor Unassigned, [place] [facility] 1..114 350.1.13.10 4.2.7.2.686 [id number] [id number] [facility] 2022-01-27 09:00:00 2022-01-27 09:15:00 Inventory Associate Visit Lab, Ang - Db Maya Formerly [facility] DANTEJosselinSILVIO BETOANNAMARIE MED[facility] OFF[facility] BUILDING 1.114 350.1.13.10 4.2.7.2.686 [id number] 353 [id number] [facility] 2022-01-27 09:00:00 2022-01-27 09:00:00 Outpatient R [facility] [id number] [facility] 2022-01-27 00:00:00 2022-01-27 00:00:00 Case Management Maya [facility] 1..114 350.1.13.10 4.2.7.2.686 [id number] 134 [id number] [facility] 2022-01-26 09:00:00 2022-01-26 09:42:07 [facility] [id number] [facility] 2022-01-26 09:00:00 2022-01-26 09:42:07 Initial Visit Maya [facility] 1..114 350.1.13.10 4.2.7.2.686 [id number] 134 [id number] [facility] 2022-01-26 00:00:00 2022-01-26 00:00:00 Patient Secure viktoria AntJohn castillo [facility] 1..114 350.1.13.10 4.2.7.2.686 [id number] 134 [id number] [facility] 2022-01-26 00:00:00 2022-01-26 00:00:00 [facility] 1.0.114 350.1.13.10 4.2.7.2.686 [id number] 134 [id number] [facility] 2022-01-25 10:30:00 2022-01-25 10:45:00 Inventory Associate Visit Lab, Nydia Diaz [facility] JOSE OSPINA [facility] OFF[facility] BUILDING 1.2.114 350.1.13.10 4.2.7.2.686 [id number] [facility] 2022-01-25 10:30:00 2022-01-25 10:30:00 Outpatient NYDIA BELLAMY [facility] [id number] [facility] 2022-01-25 10:00:00 2022-01-25 10:09:56 [facility]SILVIO PÉREZ MED[facility] OFFICE BUILDING 1.2.840.114 350.1.13.10 4.2.7.2.686 [id number] 370 [id number] [facility] 2022-01-25 00:00:00 2022-01-25 00:00:00 Patient Secure Msg [facility] 1.2.840.114 350.1.13.10 4.2.7.2.686 [id number] 370 [id number] [facility] 2022-01-12 00:00:00 2022-01-12 00:00:00 OFFICE VISIT EST PT LEVEL 3 STLMLC STLMLC [id number] [facility] 2022-01-11 00:00:00 2022-01-11 00:00:00 (TEL) STLMLC STLMLC [id number] [facility] 2021-12-18 18:00:00 2021-12-18 18:00:00 Outpatient NYDIA BELLAMY [facility] [id number] [facility] 2021-12-14 00:00:00 2021-12-14 00:00:00 Patient Secure Msg Josette Cheung [facility] BUILDING 1..840.114 350.1.13.10 4.2.7.2.686 [id number] 134 [id number] [facility] 2021-12-11 00:00:00 2021-12-11 00:00:00 Patient Secure Msg Josette Cheung [facility] BUILDING 1.2.840.114 350.1.13.10 4.2.7.2.686 [id number] 134 [id number] [facility] 2021-10-22 11:00:00 2021-10-22 11:00:00 Outpatient R EZRA DELEON [facility] [id number] [facility] 2021-10-22 00:00:00 2021-10-22 00:00:00 [facility]IO [facility] OFF[facility] BUILD[facility] 1..840.114 350.1.13.10 4.2.7.2.686 [id number] 370 [id number] [facility] 2021-10-15 11:40:00 2021-10-15 13:06:17 Outpatient R RAYMOND SYDNIE [facility] [id number] [facility] 2021-10-15 11:40:00 2021-10-15 12:00:00 [facility] OFF[facility] BUILDING 1.840.114 350.1.13.10 4.2.7.2.686 [id number] 370 [id number] [facility] 2021-10-12 00:00:00 2021-10-12 00:00:00 OFFICE VISIT ESTAB PT LEVEL 1 STLMLC STLMLC [id number] [facility] 2021-10-12 00:00:00 2021-10-12 00:00:00 (TEL) STLMLC STLMLC [id number] [facility] 2021-09-10 00:00:00 2021-09-10 00:00:00 [facility]SILVIO OSPINA [facility] OFF[facility] BUILD[facility] 1.840.114 350.1.13.10 4.2.7.2.686 [id number] 370 [id number] [facility] 2021-07-31 00:00:00 2021-07-31 00:00:00 Patient Secure Msg Josette Cheung [facility] PROFESSIO NAL BUILDING 1..840.114 350.1.13.10 4.2.7.2.686 [id number] 134 [id number] [facility] 2021-07-30 00:00:00 2021-07-30 00:00:00 Telephone Josette Cheung [facility] Professio nal Building 1.2.840.114 350.1.13.10 4.2.7.2.686 [id number] 134 [id number] [facility] 2021-07-29 19:42:00 2021-07-29 21:40:00 Emergency Elen Benedict [facility] 1.2.840.114 350.1.13.10 4.2.7.2.686 [id number] [id number] [facility] 2021-07-19 00:00:00 2021-07-19 00:00:00 [facility]Silvio pérez Medical Office Building 1.2.840.114 350.1.13.10 4.2.7.2.686 [id number] 370 [id number] [facility] 2021-07-14 17:18:01 2021-07-14 17:47:01 Urgent Care Jacqueline [facility]?Silvio [facility] Medical Office Building 1.2.840.114 350.1.13.10 4.2.7.2.686 [id number] 370 [id number] [facility] 2021-07-14 17:40:00 2021-07-14 17:40:00 Outpatient R JACQUELINENYDIA [facility] [id number] [facility] 2021-07-14 10:00:00 2021-07-14 10:00:00 Outpatient R JACQUELINEERIKANYDIA [facility] [id number] [facility] 2021-07-10 00:00:00 2021-07-10 00:00:00 OFFICE VISIT EST PT LEVEL 3 STLMLC STLMLC [id number] [facility] 2021-07-03 15:00:00 2021-07-03 15:00:00 Outpatient R ELLE SAMUELS [facility] [id number] [facility] 2021-07-03 00:00:00 2021-07-03 00:00:00 Patient Secure Msg Elle Samuels [facility] 1.2.840.114 350.1.13.10 4.2.7.2.686 [id number] [facility] 2021-06-30 11:55:40 2021-06-30 12:25:40 Office Visit Elle Samuels [facility] 1.2.840.114 350.1.13.10 4.2.7.2.686 [id number] [facility] 2021-06-30 09:02:52 2021-06-30 09:22:31 Urgent Care Ervin [facility]?Silvio betoannamarie Medical Office Building 1.2840.114 350.1.13.10 4.2.7.2.686 [id number] 370 [id number] [facility] 2021-06-30 09:00:00 2021-06-30 09:00:00 Outpatient R ERVIN [facility] [id number] [facility] 2021-06-22 00:00:00 2021-06-22 00:00:00 Letter (Out) [facility] 1.2840.114 350.1.13.10 4.2.7.2.686 [id number] 019 [id number] [facility] 2021-06-22 00:00:00 2021-06-22 00:00:00 Letter (Out) [facility] 1.2840.114 350.1.13.10 4.2.7.2.686 [id number] 019 [id number] [facility] 2021-06-22 00:00:00 2021-06-22 00:00:00 Patient Secure Msg Doctor Unassigned, [place] [facility] 1.2.840.114 350.1.13.10 4.2.7.2.686 [id number] [id number] [facility] 2021-06-21 15:13:00 2021-06-21 16:17:00 Emergency Shanika nava [facility] 1.2.840.114 350.1.13.10 4.2.7.2.686 [id number] 084 [id number] [facility] 2021-06-21 15:13:00 2021-06-21 16:17:00 Emergency Shanika Joaquin [facility] 1.2.840.114 350.1.13.10 4.2.7.2.686 [id number] [id number] [facility] 2021-06-20 12:17:23 2021-06-20 13:00:14 Urgent Care Delvis Kaye, [facility]?Silvio ospina Medical Office Building 1.2840.114 350.1.13.10 4.2.7.2.686 [id number] 370 [id number] [facility] 2021-06-20 12:20:00 2021-06-20 12:20:[address] [facility] [id number] [facility] 2021-06-20 00:00:00 2021-06-20 00:00:00 Orders Only Doctor Unassigned, [place] [facility] 1.2.840.114 350.1.13.10 4.2.7.2.686 [id number] [id number] [facility] 2021-06-20 00:00:00 2021-06-20 00:00:00 Orders Only Doctor Unassigned, [place] [facility] 1.2.840.114 350.1.13.10 4.2.7.2.686 [id number] [facility] 2021-06-13 17:45:00 2021-06-13 17:45:00 Outpatient R ERIKA PHILLIPSTANY [facility] [id number] [facility] 2021-06-13 17:08:31 2021-06-13 17:23:31 Laboratory Only Only, Ang Db Test Erika Phillipstany [facility]?Silvio ospina Medical Office Building 1.2.840.114 350.1.13.10 4.2.7.2.686 [id number] 370 [id number] [facility] 2021-04-14 08:30:00 2021-04-14 08:30:00 Outpatient R CHRISTIANO ANGELES [facility] [id number] [facility] 2021-04-13 00:00:00 2021-04-13 00:00:00 Refill Jerod Angelo [facility] 1..840.114 350.1.13.10 4.2.7.2.686 [id number]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 Interpretation Comme [facility] POCT Molecular Strep (test c ode = 49218-1) Positive Negative A Lab Interpretation (test cod e = 18718-0) [facility] [id number] 16:59:00* Test Item Value Reference Range Interpretation Comme [facility] POCT PREG (test code = 1605) Negative On board controls acceptable with C Line (test code = 3574) Yes POCT PREG LOT # (test code = 3575) [id number] POCT PREG TEST DATE ( test code = 3576) 10/12/24 Lab Interpretation (test cod e = 22149-1) [facility]2023-10-25 05:13:30* Test Item Value Reference Range Interpretation Comme [facility] TESTOSTERONE (test code = 2830) 37 NG/DL <=55 NOTE: TOTAL TESTOSTERONE ASSAY SENSITIVITY IS 12 NG/DL. TO DETERMINE NORMAL VS. SUBNORMAL TESTOSTERONE IN CHILDREN AND WOMEN, CONSIDER TESTING WITH ULTRASENSITIVE TESTOSTERONE. FSH + LH [id number] 05:13:13* Test Item Value Reference Range Interpretation Comme [facility] FOLLICLE STIM HORMONE (test code = 2700) 6.1 IU/L SEE BELOW EXPEC VONDA VALUES FOR FSH FOR FEMALES >17 YEARS FOLLICULAR 3.5-12.5 IU/L MID-CYCLE PEAK 4.7-21.5 IU/L LUTEAL PHASE 1.7-7.7 IU/L POSTMENOPAUSAL 25.8-134.8 IU/L LUTEINIZING HORMONE (test code = 2776) 8.1 IU/L SEE BELOW EXPEC VONDA VALUES FOR LH FOR FEMALES >17 YEARS MALES FEMALES >=18 YEARS 1.8-8.6 IU/L FOLLICULAR 2.4-12.6 IU/L MID-CYCLE PEAK 14.0-95.6 IU/L LUTEAL PHASE 1.0-11.4 IU/L POSTMENOPAUSAL 7.7-58.5 IU/L [id number] 05:13:13* Test Item Value Reference Range Interpretation [facility] PROLACTIN (test code = 2800) 3.7 NG/ML 5.0-37.0 L NOTE: Methodolog y is Liana Vito Electrochemiluminescence Immunoassay (ECLIA). Values obtained with different assays/manufacturers cannot be used interchangeably. Results should not be used as sole basis to establish the presence or absence of malignancy. [id number] 05:13:13* Test Item Value Reference Range Interpretation [facility] ESTRADIOL (test code = 2505) 52.9 PG/ML SEE BELOW EXPECTED VALUES FOR ESTRADIOL FOR FEMALES >=18 YEARS FOLLICULAR . . . . . . . . . . . . . PG/ML 12.4-233.0 OVULATION. . . . . . . . . . . . . . PG/ML 41.0-398.0 LUTEAL PHASE . . . . . . . . . . . . PG/ML 22.3-341.0 POSTMENOPAUSAL SUPPLEMENTED/NON-SUPP . PG/ML <138.0/<20.0 NOTE: TO DETERMINE NORMAL VS. SUBNORMAL ESTRADIOL IN POSTMENOPAUSAL FEMALES, CONSIDER ULTRASENSITIVE ESTRADIOL ([facility] ORDER CODE 5678). METHODOLOGY IS LIANA VITO ELECTROCHEMILUMINESCENT IMMUNOASSAY WITH A LIMIT OF DETECTION OF 17 PG/ML. TSH, THIRD [id number] 05:13:13* Test Item Value Reference Range Interpretation [facility] TSH, THIRD GENERATION (test code = 2821) 1.260 UIU/ML 0.400-4.100 [id number] 05:13:13* Test Item Value Reference Range Interpretation [facility] PROGESTERONE (test code = 2790) <0.20 NG/ML SEE BELOW EXPECTED VALUES FOR PROGESTERONE MALE . . . . . . . . . . . . . . . . NG/ML <0.20 FEMALE FOLLICULAR PHASE . . . . . . . . . NG/ML <0.90 OVULATION . . . . . . . . . . . . NG/ML <12.00 LUTEAL PHASE . . . . . . . . . . . NG/ML 1.83-23.90 POSTMENOPAUSAL . . . . . . . . . . NG/ML <0.20 1ST TRIMESTER. . . . . . . . . . . NG/ML 11.00-44.30 2ND TRIMESTER. . . . . . . . . . . NG/ML 25.40-83.30 3RD TRIMESTER. . . . . . . . . . . NG/ML 58.70-214.00 UNLESS OTHERWISE INDICATED, ALL TESTING PERFORMED AT [facility] [address] [place] [address] EMULSION OPERATOR: TANJA SHIELDS M.D. [place] NUMBER [id number] [place]. [id number] POCT MOLECULAR [id number] 01:18:19* Test Item Value Reference Range Interpretation Comme nts POCT Molecular Strep (test c ode = 22520-5) Negative Negative Lab Interpretation (test cod e = 67501-6) [facility] [id number] 17:18:00* Test Item Value Reference Range Interpretation Comme nts POCT PREG (test code = 1605) Negative On board controls acceptable with C Line (test code = 3574) Yes POCT PREG LOT # (test code = 3575) POCT PREG TEST DATE ( test code = 3576) [facility] [id number] 17:18:00* Test Item Value Reference Range Interpretation Comme nts POCT PREG (test code = 1605) Negative On board controls acceptable with C Line (test code = 3574) Yes POCT PREG LOT # (test code = 3575) POCT PREG TEST DATE ( test code = 3576) [facility] URINALYSIS W/O SPECIFIC [id number] 15:15:00* Test Item Value Reference Range Interpretation Comme nts POCT PH U (test code = 3254) n/a 5-8 POCT U LEUK EST (test code = 3263) n/a Negative - N egative POCT U NIT (test code = 3262) n/a Negative - Negati ve POCT U PROT (test code = 3259) Trace Negative - Negat sharath POCT U GLU (test code = 3256) Normal Negative - Negati ve POCT U KETONE (test code = 3258) n/a Negative - Neg ative POCT U BLD (test code = 3257) n/a Negative - Negati ve [facility] URINALYSIS W/O SPECIFIC [id number] 16:15:00* Test Item Value Reference Range Interpretation Comme nts POCT PH U (test code = 3254) n/a 5-8 POCT U LEUK EST (test code = 3263) n/a Negative - N egative POCT U NIT (test code = 3262) n/a Negative - Negati ve POCT U PROT (test code = 3259) neg Negative - Negat sharath POCT U GLU (test code = 3256) neg Negative - Negati ve POCT U KETONE (test code = 3258) n/a Negative - Neg ative POCT U BLD (test code = 3257) n/a Negative - Negati ve [facility] URINALYSIS W/O SPECIFIC [id number] 21:55:00* Test Item Value Reference Range Interpretation Comme nts POCT PH U (test code = 3254) n/a 5-8 POCT U LEUK EST (test code = 3263) n/a Negative - Negative POCT U NIT (test code = 3262) n/a Negative - Negati ve POCT U PROT (test code = 3259) negative Negative - Negat sharath POCT U GLU (test code = 3256) negative Negative - Negati ve POCT U KETONE (test code = 3258) n/a Negative - Neg ative POCT U BLD (test code = 3257) n/a Negative - Negati ve [facility] URINALYSIS W/O SPECIFIC [id number] 16:46:00* Test Item Value Reference Range Interpretation Comme nts POCT PH U (test code = 3254) 5 mg/dl 5-8 POCT U LEUK EST (test code = 3263) positive Negative - Negative POCT U NIT (test code = 3262) negative Negative - Negati ve POCT U PROT (test code = 3259) negatuve Negative - Negat sharath POCT U GLU (test code = 3256) negative Negative - Negati ve POCT U KETONE (test code = 3258) negative Negative - Neg ative POCT U BLD (test code = 3257) positive Negative - Negati ve [facility] URINALYSIS W/O SPECIFIC [id number] 14:34:00* Test Item Value Reference Range Interpretation Comme nts POCT PH U (test code = 3254) n/a 5-8 POCT U LEUK EST (test code = 3263) n/a Negative - Negative POCT U NIT (test code = 3262) n/a Negative - Negati ve POCT U PROT (test code = 3259) negative Negative - Negat sharath POCT U GLU (test code = 3256) negative Negative - Negati ve POCT U KETONE (test code = 3258) n/a Negative - Neg ative POCT U BLD (test code = 3257) n/a Negative - Negati ve [facility] SPECIFIC [id number] 14:34:00* Test Item Value Reference Range Interpretation Comme nts POCT PH U (test code = 3254) n/a 5-8 POCT U LEUK EST (test code = 3263) n/a Negative - Negative POCT U NIT (test code = 3262) n/a Negative - Negati ve POCT U PROT (test code = 3259) negative Negative - Negat sharath POCT U GLU (test code = 3256) negative Negative - Negati ve POCT U KETONE (test code = 3258) n/a Negative - Neg ative POCT U BLD (test code = 3257) n/a Negative - Negati ve [facility]OL[facility] PAN[facility] (30208)2022-07-31 13:51:28* Test Item Value Reference Range Interpretation Comme nts NA (test code = 8245054938) 136 mmol/L 135-145 K (test code = 0856558783) 4.2 mmol/L 3.5-5 CL (test code = 1828776520) 105 mmol/L 98-108 CO2 TOTAL (test code = 5569827359) 22 mmol/L 23-31 L AGAP (test code = 5651051618) 2-16 BUN (test code = [id number]) 5 mg/dL 7-23 L GLUCOSE (test code = 4715870534) 92 mg/dL 70-110 CREATININE (test code = 5673904491) 0.60 mg/dL 0.5-1.04 TOTAL BILI (test code = 1709850510) 0.4 mg/dL 0.1-1.1 CALCIUM (test code = 0219526885) 9.2 mg/dL 8.6-10.6 T PROTEIN (test code = 6654717504) 6.9 g/dL 6.3-8.2 ALBUMIN (test code = 0856183573) 3.8 g/dL 3.5-5 ALK PHOS (test code = 3747783317) 86 U/L 34-122 ALTv (test code = 1742-6) 22 U/L 5-35 AST(SGOT) (test code = 2719284563) 20 U/L 13-40 eGFR (test code = 9838137886) mL/min/1.73m2 BATSHEVA (test code = BATSHEVA) Association of Glomerular Filtration Rate (GFR) and Staging of Kidney Disease* + --+ --+ ------+| GFR (mL/min/1.73 m2) ?| With Kidney Damage ?| ?Without Kidney Damage+ --------+ --------+ +| ?>90 ?| ?Stage one ?| ? Normal ?+ ---+ ---+ -------+| ?60-89 ?| ?Stage two ?| ? Decreased GFR ? + --+ --+ ------+| ?30-59 ?| ?Stage three ?| ? Stage three ? + --+ --+ ------+| ?15-29 ?| ?Stage four ? | ? Stage four ?+ ---+ ---+ -------+| ?<15 (or dialysis) ? ?| ?Stage five ? | ? Stage five ?+ ---+ ---+ -------+ *Each stage assumes the associated GFR level has been in effect for at least three months. ?Stages 1 to 5, with or without kidney disease, indicate chronic kidney disease. Notes: Determination of stages one and two (with eGFR >59mL/min/1.73 m2) requires estimation of kidney damage for at least three months as defined by structural or functional abnormalities of the kidney, manifested by either:Pathological abnormalities or Markers of kidney damage (including abnormalities in the composition of the blood or urine or abnormalities in imaging tests). Lab Interpretation (test code = 16888-0) [facility] Test Item Value Reference Range Interpretation Comme nts LIPASE (test code = 0207230523) 48 U/L 0-220 Lab Interpretation (test cod e = 23135-3) Normal [facility] WITH [id number] 13:36:48* Test Item Value Reference Range Interpretation Comme nts WBC (test code = 6690-2) See_Comment [Automated messa ge] The system which generated this result transmitted reference range: 4.30 - 11.10 10*3/?L. The reference range was not used to interpret this result as normal/abnormal. RBC (test code = 789-8) See_Comment L [Automated messa ge] The system which generated this result transmitted reference range: 3.93 - 5.25 10*6/?L. The reference range was not used to interpret this result as normal/abnormal. HGB (test code = 718-7) 11.9 g/dL 11.6-15 HCT (test code = 4544-3) 35.8 % 35.7-45.2 MCV (test code = 787-2) 91.3 fL 80.6-95.5 MCH (test code = 785-6) 30.4 pg 25.9-32.8 MCHC (test code = 786-4) 33.2 g/dL 31.6-35.1 RDW-SD (test code = 08461-4) 45.0 fL 39-49.9 RDW-CV (test code = 788-0) 13.5 % 12-15.5 PLT (test code = 777-3) See_Comment [Automated messa ge] The system which generated this result transmitted reference range: 166 - 358 10*3/?L. The reference range was not used to interpret this result as normal/abnormal. MPV (test code = 74011-1) 10.1 fL 9.5-12.9 NRBC/100 WBC (test code = 5529943249) See_Comment [Automated me ssage] The system which generated this result transmitted reference range: 0.0 - 10.0 /100 WBCs. The reference range was not used to interpret this result as normal/abnormal. NRBC x10^3 (test code = 9583601292) See_Comment [Automated messa ge] The system which generated this result transmitted reference range: 10*3/?L. The reference range was not used to interpret this result as normal/abnormal. GRAN MAT (NEUT) % (test code = 770-8) 76.0 % IMM GRAN % (test code = 7354992652) 0.80 % LYMPH % (test code = 736-9) 15.2 % MONO % (test code = 5905-5) 6.7 % EOS % (test code = 713-8) 0.9 % BASO % (test code = 706-2) 0.4 % GRAN MAT x10^3(ANC) (test code = 2923808768) 5.88 10*3/uL 1.88-7.09 IMM GRAN x10^3 (test code = 6746050148) 0.06 10*3/uL 0-0.06 LYMPH x10^3 (test code = 731-0) 1.18 10*3/uL 1.32-3.29 L MONO x10^3 (test code = 742-7) 0.52 10*3/uL 0.33-0.92 EOS x10^3 (test code = 711-2) 0.07 10*3/uL 0.03-0.39 BASO x10^3 (test code = 704-7) 0.03 10*3/uL 0.01-0.07 Lab Interpretation (test code = 91075-5) [facility] URINALYSIS W/O SPECIFIC [id number] 18:39:00* Test Item Value Reference Range Interpretation Comme nts POCT PH U (test code = 3254) n/a 5-8 POCT U LEUK EST (test code = 3263) n/a Negative - Negative POCT U NIT (test code = 3262) n/a Negative - Negati ve POCT U PROT (test code = 3259) negative Negative - Negat sharath POCT U GLU (test code = 3256) negative Negative - Negati ve POCT U KETONE (test code = 3258) n/a Negative - Neg ative POCT U BLD (test code = 3257) n/a Negative - Negati ve [facility] URINALYSIS W/O SPECIFIC [id number] 16:39:00* Test Item Value Reference Range Interpretation Comme nts POCT PH U (test code = 3254) n/a 5-8 POCT U LEUK EST (test code = 3263) n/a Negative - Negative POCT U NIT (test code = 3262) n/a Negative - Negati ve POCT U PROT (test code = 3259) negative Negative - Negat sharath POCT U GLU (test code = 3256) negative Negative - Negati ve POCT U KETONE (test code = 3258) n/a Negative - Neg ative POCT U BLD (test code = 3257) n/a Negative - Negati ve Lab Interpretation (test cod e = 31863-5) [facility] URINALYSIS W/O SPECIFIC [id number] 15:33:00* Test Item Value Reference Range Interpretation Comme nts POCT PH U (test code = 3254) n/a 5-8 POCT U LEUK EST (test code = 3263) n/a Negative - Negative POCT U NIT (test code = 3262) n/a Negative - Negati ve POCT U PROT (test code = 3259) negative Negative - Negat sharath POCT U GLU (test code = 3256) negative Negative - Negati ve POCT U KETONE (test code = 3258) n/a Negative - Neg ative POCT U BLD (test code = 3257) n/a Negative - Negati ve Lab Interpretation (test cod e = 88306-3) [facility] URINALYSIS W/O SPECIFIC [id number] 16:14:00* Test Item Value Reference Range Interpretation Comme nts POCT PH U (test code = 3254) n/a 5-8 POCT U LEUK EST (test code = 3263) n/a Negative - Negative POCT U NIT (test code = 3262) n/a Negative - Negati ve POCT U PROT (test code = 3259) negative Negative - Negat sharath POCT U GLU (test code = 3256) negative Negative - Negati ve POCT U KETONE (test code = 3258) n/a Negative - Neg ative POCT U BLD (test code = 3257) n/a Negative - Negati ve [facility] URINALYSIS W/O SPECIFIC [id number] 16:14:00* Test Item Value Reference Range Interpretation Comme nts POCT PH U (test code = 3254) n/a 5-8 POCT U LEUK EST (test code = 3263) n/a Negative - Negative POCT U NIT (test code = 3262) n/a Negative - Negati ve POCT U PROT (test code = 3259) negative Negative - Negat sharath POCT U GLU (test code = 3256) negative Negative - Negati ve POCT U KETONE (test code = 3258) n/a Negative - Neg ative POCT U BLD (test code = 3257) n/a Negative - Negati ve [facility] Knee wo contrast [id number] 11:31:00 EXAM: Left knee wo contrast MRIINDICATION: [...] is seen. Lateralcollateral ligament complex is intact. Postero lateral corner structures areintact.Patellofemoral compartment: There is no significant chondromalacia. The medialand lateral patellofemoral retinaculum are intact. Lateral patellar tilt isseen. Tibial tubercle-trochlear groove distance of 1.5 cm is seen. Patellartilt angle of 30 degrees is seen.Extensor mechanism: Quadriceps and patellar tendons are intact.Other findings: Physiologic joint fluidis seen. Mild infrapatellar soft tissueedema is noted, nonspecific. Subtle edema of the superolateral pole of theHoffa's fat pad is present.IMPRESSION:1. No acute bony abnormality of the left knee.2.No meniscal, cruciate ligament, or collateral ligament tear.3. Mild signal abnormality of the superolateral pole of the Hoffa's fat padwhich may be related to impingement.SL: [id number] by: Leo Barragan MDDictated Date/time: 09/05/18 12:16Electronically Signed by: Leo Barragan MD 09/05/1812:23FINAL REPORTUT PhysiciansUS Extremity lower venous doppler bilat [id number] 10:29:00PROCEDURE: BILATERAL LOWER EXTREMITY VENOUS ULTRASOUNDClinical Indication: [...] junction is unremarkable.IMPRESSION: No deep venous thrombosis.SL: [id number] by: Dima Haney MDDictated Date/time: 09/05/18 11:46Electronically Signed by: Dima Haney MD 09/05/1811:49FINALREPORTUT Physicians[U] XRAY KNEE 3 VWS LEFT [id number] 08:56:00Images acquired, not reported on this accession number.UT PhysiciansSARS-COV 2 AntigenSARS-COV 2 Antigen
[2024-10-24] MEDS ORDERED: IBUPROFEN 200 MG TAB PO ONE (11:56)
--- NOTE | 2024-10-24 12:03 | EDPHYS ---
Physician Documentation [facility] Name: Nicolasa Rose Age: 29 yrs Sex: Female : 1995 Arrival Date: 10/24/2024 Time: 11:28 Bed 14 Private MD: ED Physician Ceci Langford HPI: 10/24 12:00 This 29 yrs old Female presents to ER via Wheelchair with complaints of Ankle Injury. sp3 12:00 29-year-old female with no significant past medical history presents with left ankle sp3 sprain that occurred just prior to arrival while chasing after her dogs. Patient can still put weight on it although it is painful. She denies any other injury including head, other parts of the body, other joints of any other signs or symptoms on ROS at this time.. 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 - Infectious Disease History:: Denies. - Social history:: Smoking status: Patient denies any tobacco usage or history of. ROS: 12:01 Constitutional: Negative for fever, chills, and weight loss, Eyes: Negative for injury, sp3 pain, redness, and discharge, ENT: Negative for injury, pain, and discharge, Neck: Negative for injury, pain, and swelling, Cardiovascular: Negative for chest pain, palpitations, and edema, Respiratory: Negative for shortness of breath, cough, wheezing, and pleuritic chest pain, Abdomen/GI: Negative for abdominal pain, nausea, vomiting, diarrhea, and constipation, Back: Negative for injury and pain, Skin: Negative for injury, rash, and discoloration, Neuro: Negative for headache, weakness, numbness, tingling, and seizure, Psych: Negative for depression, anxiety, suicide ideation, homicidal ideation, and hallucinations, Allergy/Immunology: Negative for hives, rash, and allergies, Endocrine: Negative for neck swelling, polydipsia, polyuria, polyphagia, and marked weight changes, Hematologic/Lymphatic: Negative for swollen nodes, abnormal bleeding, and unusual bruising, 12:01 All other systems are negative, Exam: 12:01 Constitutional: This is a well developed, well nourished patient who is awake, alert, sp3 and in no acute distress. Head/Face: Normocephalic, atraumatic. Chest/axilla: Normal chest wall appearance and motion. Nontender with no deformity. No lesions are appreciated. Cardiovascular: Regular rate and rhythm with a normal S1 and S2. No gallops, murmurs, or rubs. Normal PMI, no JVD. No pulse deficits. Respiratory: Lungs have equal breath sounds bilaterally, clear to auscultation and percussion. No rales, rhonchi or wheezes noted. No increased work of breathing, no retractions or nasal flaring. Abdomen/GI: Soft, non-tender, with normal bowel sounds. No distension or tympany. No guarding or rebound. No evidence of tenderness throughout. Back: No spinal tenderness. No costovertebral tenderness. Full range of motion. Skin: Warm, dry with normal turgor. Normal color with no rashes, no lesions, and no evidence of cellulitis. Neuro: Awake and alert, GCS 15, oriented to person, place, time, and situation. Cranial nerves II-XII grossly intact. Motor strength 5/5 in all extremities. Sensory grossly intact. Cerebellar exam normal. Normal gait. 12:01 Musculoskeletal/extremity: Mild pain on the left lateral malleoli without significant swelling. Exam is limited secondary to body habitus/obesity. No pain at the base of the fifth metatarsal and distal neurovascular exam is normal. Vital signs are also normal.. Vital Signs: 11:42 BP 102 / 62; Pulse 84; Resp 18 S; Temp 97.5(TE); Pulse Ox 100% on R/A; Weight 120.2 kg aa5 (R); Height 5 ft. 5 in. (R); 11:42 Body Mass Index 44.10 (120.20 kg, 165.1 cm) aa5 MDM: 11:35 Medical Screening Exam initiated johnny 12:02 Data reviewed: vital signs, nurses notes, radiologic studies. ED course: 29-year-old sp3 female with left ankle sprain. Differential diagnosis includes ankle sprain versus fracture. X-ray demonstrates no bony abnormality. Patient will be placed in an Ezequiel wrap, crutches and given diclofenac prescription with follow-up with orthopedics.. 10/24 11:59 Order name: Ankle Left 3 View; Complete Time: 12:18 EDMS 10/24 11:35 Order name: Ice pack; Complete Time: 12:06 johnny 10/24 12:04 Order name: Ezequiel Wrap; Complete Time: 12:13 sp3 10/24 12:04 Order name: Crutch Training; Complete Time: 12:13 sp3 Administered Medications: 12:01 Drug: Ibuprofen PO 600 mg PO once; if not Route: PO; bp 12:01 Follow up: Response: No adverse reaction bp Disposition Summary: 10/24/24 12:03 Discharge Ordered Notes: Location: Home sp3 Condition: Stable sp3 Diagnosis - Left ankle sprain sp3 Followup: sp3 - With: Hayden Williamson MD - When: Upon discharge from the Emergency Department - Reason: Recheck today's complaints Discharge Instructions: - Discharge Summary Sheet sp3 - Ankle Sprain sp3 Forms: - Family Work Release bp - Medication Reconciliation Form sp3 - Antibiotic Education sp3 - Prescription Opioid Use sp3 - Patient Portal Instructions sp3 - Leadership Thank You Letter sp3 Prescriptions: - Crutches - One pair of Adult crutches; ; Refills: 0, Product Selection Permitted sp3 - Diclofenac Sodium 75 mg Oral Tablet Sustained Release - take 1 tablet ORAL route 2 times per day; 30 tablet; Refills: 0, Product sp3 Selection Permitted Signatures: Dispatcher [employer] Kenny Garcia MD MD cha Calderon, Audri RN RN aa5 Vickey Myles, RN RN Ceci Ogden MD MD sp3 Corrections: (The following items were deleted from the chart) 11:36 11:36 Ankle Right 3 View+RAD.RAD.BRZ ordered. EDMI EDMS
--- NOTE | 2024-10-24 12:03 | ER ---
Nurse's Notes [facility] Name: Nicolasa Rose Age: 29 yrs Sex: Female : 1995 Arrival Date: 10/24/2024 Time: 11:28 Bed 14 Private MD: Diagnosis: Left ankle sprain Presentation: 10/24 11:42 Chief complaint: Patient states: tripped and hurt left ankle. Coronavirus screen: At aa5 this time, the client does not indicate any symptoms associated with coronavirus-19. Ebola Screen: Patient denies travel to an Ebola-affected area in the 21 days before illness onset. Initial Sepsis Screen: Does the patient meet any 2 criteria? No. Patient's initial sepsis screen is negative. Does the patient have a suspected source of infection? No. Patient's initial sepsis screen is negative. Risk Assessment: Do you want to hurt yourself or someone else? Patient reports no desire to harm self or others. Onset of symptoms was October 24, 2024. 11:42 Method Of Arrival: Wheelchair aa 11:42 Acuity: ROSENDO 4 aa5 Triage Assessment: 11:45 General: Appears in no apparent distress. obese, unkempt, Behavior is calm, bp cooperative, appropriate for age. Pain: Complains of pain in anterior aspect of left ankle. EENT: No deficits noted. Neuro: No deficits noted. Cardiovascular: No deficits noted. Respiratory: No deficits noted. GI: No signs and/or symptoms were reported involving the gastrointestinal system. : No signs and/or symptoms were reported regarding the genitourinary system. Derm: No deficits noted. Musculoskeletal: Reports pain in anterior aspect of left ankle. 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 - Infectious Disease History:: Denies. - Social history:: Smoking status: Patient denies any tobacco usage or history of. Screenin:45 [facility] ED Fall Risk Assessment (Adult) History of falling in the last 3 months, bp including since admission No falls in past 3 months (0 pts) Confusion or Disorientation No (0 pts) Intoxicated or Sedated No (0 pts) Impaired Gait No (0 pts) Mobility Assist Device Used No (0 pt) Altered Elimination No (0 pt) Score/Fall Risk Level 0 - 2 = Low Risk Oriented to surroundings. Abuse screen: Denies threats or abuse. Denies injuries from another. Nutritional screening: No deficits noted. Tuberculosis screening: No symptoms or risk factors identified. Assessment: 11:45 General: Appears in no apparent distress. Behavior is cooperative, appropriate for age, bp anxious. Vital Signs: 11:42 BP 102 / 62; Pulse 84; Resp 18 S; Temp 97.5(TE); Pulse Ox 100% on R/A; Weight 120.2 kg aa5 (R); Height 5 ft. 5 in. (R); 11:42 Body Mass Index 44.10 (120.20 kg, 165.1 cm) aa5 ED Course: 11:34 Patient arrived in ED. al6 11:35 Kenny Storey MD is Attending Physician. johnny 11:36 Attending Physician role handed off by Kenny Storey MD sp3 11:36 Ceci Langford MD is Attending Physician. sp3 11:38 Vickey Myles, OWEN is Primary Nurse. bp 11:42 Triage completed. aa5 11:42 Arm band placed on. aa5 11:45 Patient has correct armband on for positive identification. bp 11:59 Ankle Left 3 View In Process Unspecified. EDMS 12:02 Hayden Williamson MD is Referral Physician. sp3 12:19 Provided Education on: NONE. bp 12:19 No provider procedures requiring assistance completed. Patient did not have IV access bp during this emergency room visit. Crutch training done. Ezequiel wrap to left ankle. Administered Medications: 12:01 Drug: Ibuprofen PO 600 mg PO once; if not Route: PO; bp 12:01 Follow up: Response: No adverse reaction bp Medication: 11:45 VIS not applicable for this client. bp Outcome: 12:03 Discharge ordered by . sp3 12:19 Discharged to home with crutches, with family, bp 12:19 Condition: stable 12:19 Discharge instructions given to patient, Instructed on discharge instructions, follow up and referral plans. medication usage, crutch walking, Demonstrated understanding of instructions, follow-up care, medications, crutch walking, Prescriptions given X 1, 12:20 Patient left the ED. bp Signatures: Dispatcher [employer] EDKenny Blair MD MD cha Calderon, Audri, RN RN aa5 Vickey Myles RN RN bp Patel, Setul, MD MD sp3 Nessa Lala6
--- NOTE | 2024-10-24 12:18 | RAD REPORT ---
EXAMINATION: XR Ankle Left 3 View CLINICAL INDICATION: Female, 29 years old. [facility] MAIN PAIN Bed: TECHNIQUE: 3 view radiographs of the left ankle were obtained. COMPARISON: No prior exam. FINDINGS: No bone or joint abnormality seen. Pronounced soft tissue swelling about the ankle. Small c alcaneal spur. IMPRESSION: Soft tissue swelling without acute osseous abnormalities.
[2024-10-26 02:12] VITALS: BP 102/62; TEMP 97.5; O2SAT 100
== END 2024-10-24 12:20 | disposition home or self-care (01) ==
LOC: ER 11:28
DX: S93.402A Sprain of unspecified ligament of left ankle, initial encounter (principal); F41.9 Anxiety disorder, unspecified; F32.A Depression, unspecified; W01.0XXA Fall on same level from slipping, tripping and stumbling without subsequent striking against object, initial encounter; Y93.K1 Activity, walking an animal; Y92.9 Unspecified place or not applicable; Y99.9 Unspecified external cause status; Z88.0 Allergy status to penicillin; Z88.8 Allergy status to other drugs, medicaments and biological substances
CPT/HCPCS: 99283

== ENCOUNTER 2025-01-12 10:31 | Emergency (ER) | payer OTHER ==
--- OUTSIDE RECORDS SUMMARY | 2025-01-12 10:50 | XMS REPORT | Continuity of Care Document ---
Author Name Unknown Address [address] [facility] [address] [place] [address] [facility] Address [address] [facility] [address] [place] [address] Care Team Providers Care Tabulating Clerk Name Role Phone DAVID LOREN Primary Care Physician Unavailab Fernandez Kellogg Attending Clinician Unavailable KIMBERLYN SR Attending Clinician Unavailable SANTY YARBROUGH Attending Clinician UnavailLOREN Cunningham Attending Clinician Unavailable DEBBIE RUBIN Attending Clinician Unavailable KIMBERLYN SR Attending Clinician Unavailable MADHAVI COBB Attending Clinician Unavailab ALEJANDRO Méndez Attending Clinician Unavailable Alejandro Longoria Attending Clinician [phone] VINI GEE Attending Clinician Unavailab [facility] Attending Clinician Unavailpatricia STRAUSS MD Attending Clinician Unavailab TIFAFNY Miles Attending Clinician Un available LEONOR MUELLER Attending Clinician Unavailable Leonor Mueller MD Attending Clinician [phone] Unknown, Attending Attending Clinician Unavailab JARRETT Garcia Attending Clinician Unavailable JARRETT NAVARRO Attending Clinician Unavailable Vincjusten POTTER OR CERAMIC ARTIST, Jarrett Attending Clinician [phone] Ebraeula POTTER OR CERAMIC ARTIST, Delvis Attending Clinician [phone] EBDELVIS REHMAN Attending Clinician Unavailable LAB90 Attending Clinician Unavailable ESTHER GARZA Attending Clinician Unavailab ESTHER Lynch Attending Clinician Unavailab Esther Lynch DO Attending Clinician + [phone] KRYSTA BARRETO Attending Clinician UnaKAIDEN Mai Attending Clinician Unavailable BERONICA MOORE Attending Clinician Unavailable PASHA PEDROZA Attending Clinician Unavailable CHANTELL BOO Attending Clinician Unavailable GENET NI Attending Clinician Unavailab le LAB47 Attending Clinician Unavailable JOSUÉ NAGY Attending Clinician Unavailab HARI Dixon Attending Clinician Unavailable JANET PERAZA Attending Clinician Unavailable JUINOR LYNN Attending Clinician Unavailable JOSETTE CHEUNG Attending Clinician Unavailable Gildardo DUNNE Attending Clinician Unavailable Gildardo Cohen Attending Clinician [phone] ELEN BENEDICT Attending Clinician Unavailable Elen Benedict NP Attending Clinician [phone] OMAGHUE FORRESTAYTRINI Attending Clinician Unavailabl e Omaghomi POTTER OR CERAMIC ARTIST, Omayemi Attending Clinician [phone] Unknown, Attending Attending Clinician Unavailab le Doctor Unassigned, [place] Attending Clinician U NICOLE Gaspar Attending Clinician Unavailable KORTNEY TREJO Attending Clinician UnavailKORTNEY Chung Attending Clinician UnavailSydnie Leblanc Attending Clinician [phone] SYDNIE ANDRADE Attending Clinician Unavailable Josette Cheung MD Attending Clinician [phone] Shayy Gonzales MA Attending Clinician Unavailable Kristen III, CERTIFIED SCRUB TECH, R Attending Clinician [phone] Leandra Wyatt MD Attending Clinician [phone] [phone], [facility] Attending Clinician UnavailJoanne Hidalgo RN Attending Clinician Unavailable Ultrasound, [facility] Attending Clinician Unavailsherif Arroyo MD, Meche Gale Attending Clinician + MECHE ARROYO Attending Clinician Jj Alberto RN, Migdalia Attending Clinician UnavailMERCY Akins Attending Clinician MERCY Barrow Attending Clinician Jarvis Naqvi MD Attending Clinician [phone] Dena Manrique RN Attending Clinician Unavailable JARVIS MCQUEEN Attending Clinician Unavailable Alireza KIM, Moriah Alfredo Attending Clinician [phone] SAM BRADLEY Attending Clinician Unavailable Kirk KIM, Sam Attending Clinician [phone] 2[facility] Room Attending Clinician UnavailMigdalia Morelos MD Attending Clinician [phone] MIGDALIA VAZQUEZ Attending Clinician Unavailable MIGDALIA VAZQUEZ Attending Clinician Unavailable Truong Leo RN Attending Clinician Cecy Lanier RN Attending Clinician Unavailable Leonor Mueller MD Attending Clinician [phone] Lab, [facility] Attending Clinician Unavailable ELPIDIO MARTINEZ Attending Clinician Unavailable Elpidio Leos Attending Clinician [phone] KAI LARKIN Attending Clinician Unavailable Kai Barrera Attending Clinician [phone] Poppy Ceron PA-C Attending Clinician [phone] POPPY CERON Attending Clinician Unavailable John Cain RN Attending Clinician Unavailab NIXON Barroso Attending Clinician Unavailable Nixon Perdue DO Attending Clinician [phone] Nydia Vera Attending Clinician [phone] NYDIA PHILLIPS Attending Clinician UnavailEZRA Moore Attending Clinician Unavailable ELLE SAMUELS Attending Clinician Unavailable Elle Samuels PA-C Attending Clinician Unavailpatricia Mireles RN, [place] Franks Attending Clinician Unavailab Shanika Williamson Attending Clinician [phone] Ebrahim POTTER OR CERAMIC ARTIST, Delvis Attending Clinician [phone] Only, Marcos Db Test Attending Clinician UnavailCHRISTIANO Brown Attending Clinician Unavailable Jerod Angelo MD Attending Clinician [phone] Provider, [facility] Attending Clinician Un available Devante WEST, Krysta Jain Attending Clinician [phone] KRYSTA MCKEON Attending Clinician Unavailab Farzad Medrano DO Attending Clinician [phone] Christiano Angeles PA-C Attending Clinician [phone] 2, [facility] Attending Clinician Unavailable Elan Denny MD Attending Clinician +[phone] Trevor John MD Attending Clinician [phone] Gabino Alvarez MD Attending Clinician [phone] Nurse, [facility] Attending Clinician Un available JOEL ODOM M.D. Attending Clinician U KIMBERLYN Chou Admitting Clinician Unavailable JOSETTE CHEUNG Admitting Clinician Unavailable ALEJANDRO PFEIFFER Admitting Clinician Unavailable JARRETT NAVARRO Admitting Clinician Unavailable JOSUÉ NAGY Admitting Clinician Unavailab Gildardo Gross Admitting Clinician Unavailable ELEN BENEDICT Admitting Clinician Unavailable Josette Cheung MD Admitting Clinician [phone] Kimberlyn Sr MD Admitting Clinician [phone] [facility] STEWART Admitting Clinician UnaSAM Bonds Admitting Clinician Unavailable Sam Bradley MD Admitting Clinician +[phone] ELPIDIO MARTINEZ Admitting Clinician Unavailable KORTNEY TREJO Admitting Clinician UnavailNIXON Garland Admitting Clinician Unavailable KAI LARKIN Admitting Clinician Unavailable Gabino Alvarez MD Admitting Clinician + [phone] Payers Payer Name Policy Type Policy Number Effective Date Expirati on Date Source [facility] [id number] 2019 00:00:00 [facility] COPAY FOCUS 9 [id number] 2024 00:00:00 [facility] [place] [facility] [id number] 2024 00:00:00 [employer] MP [employer]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 9 [id number] 2024 00:00:00 [employer] W/ ANAT MESA OOO [id number] 2024 00:00:00 2024 00:00:00 [facility]LY [facility] [id number] 2020 00:00:00 [facility] [id number] 2020 00:00:00 [facility] [id number] 2020 00:00:00 [facility] [id number] 2020 00:00:00 [facility] [id number] 2020 00:00:00 [facility] [id number] 2020 00:00:00 [facility] Problems Condition Name Condition Details Condition Category Status Onset Date Resolution Date Last Treatment Date Treating Clinician Comments Source BMI 40.0-44.9, adult BMI 40.0-44.9, adult Disease Active 918 00:00: 00 Anat Mesa - Jarad l Strain of right knee, initial encounter Strain of right knee, initial encounter Disease Active 05-13 00:00: 00 [facility] Acute pain of right knee Acute pain of right knee Disease Active 8- 00:00: 00 [facility] Nexplanon in place Nexplanon in place Disease Active 1- 00:00: 00 [facility] BMI 39.0-39.9, adult BMI 39.0-39.9, adult Disease Active 6- 00:00: 00 [facility] [id number] Multigravi da in third trimester Problem Active [facility] [id number] Panic disorder [episodic paroxysmal anxiety] Problem Active [facility] [id number] Generalize d anxiety disorder Problem Active [facility] [id number] Seasonal allergies Problem Active [facility] History of back pain History of back pain Problem HL[id number] Current moderate episode of major depressive disorder without prior episode Problem Active [facility] [id number] Morbid (severe) obesity due to excess calories Problem Active [facility] [id number] Primary insomnia Problem Active [facility] History of depression History of depression Problem HL7.[facility]DAR2 [facility] Leg swelling Leg swelling Problem HL7.CCDAR2 [facility] Acute traumatic internal derangemen t of left knee, initial encounter Acute traumatic internal derangemen t of left knee, initial encounter Problem HL7.[facility]DAR2 [facility] Encounter for visit Encounter for visit Disease Resolve d 0 1-04 00:00: 00 2022-11-05 00:00:00 2022-11-05 11:05:00 [facility] General counseling and advice on female contracept ion General counseling and advice on female contracept ion Disease Resolve d 2021-10 2-19 00:00: 00 2022-11-05 00:00:00 2022-11-05 11:05:01 [facility] Positive GBS test Positive GBS test Disease Resolve d 1 2-09 00:00: 00 2022-11-05 00:00:00 2022-11-05 11:05:02 [facility] Encounter for tubal ligation counseling Encounter for tubal ligation counseling Disease Resolve d 2021-0 9-01 00:00: 00 2022-11-05 00:00:00 2022-11-05 11:05:03 [facility] Obesity affecting , antepartum Obesity affecting , antepartum Disease Resolve d 1 2-01 00:00: 00 2022-10-21 00:00:00 2022-10-21 12:46:38 [facility] Group B streptococ johnny infection in Group B streptococ johnny infection in Disease Resolve d 2021-1 1-07 00:00: 00 2022-10-21 00:00:00 2022-10-21 12:46:58 [facility] Depression affecting , antepartum Depression affecting , antepartum Disease Resolve d 2021-0 9-21 00:00: 00 2022-10-21 00:00:00 2022-10-21 12:46:25 [facility] 39 weeks gestation of 39 weeks gestation of Disease Resolve d 2019-0 4-22 00:00: 00 2022-10-21 00:00:00 2022-10-21 12:46:50 [facility] BMI 40.0-44.9, adult BMI 40.0-44.9, adult Disease Resolve d 2019-0 3-05 00:00: 00 2022-10-21 00:00:00 2022-10-21 12:46:29 [facility] Supervisio n of other high risk , antepartum Supervisio n of other high risk , antepartum Disease Resolve d 2019-0 1-27 00:00: 00 2022-10-21 00:00:00 2022-10-21 12:46:44 [facility] Liveborn , of reyna , born in hospital by vaginal delivery Liveborn , of reyna , born in hospital by vaginal delivery Disease Resolve d 2015-0 6-23 00:00: 00 2022-10-21 00:00:00 2022-10-21 12:47:04 [facility] Third trimester Third trimester Disease Resolve d 2021-1 2-01 00:00: 00 2022-09-27 00:00:00 2022-09-27 06:02:13 [facility] Person with feared complaint in whom no diagnosis was made Person with feared complaint in whom no diagnosis was made Disease Resolve d 2021-1 2-01 00:00: 00 2022-09-27 00:00:00 2022-09-27 06:02:07 [facility] Pelvic pain affecting in third trimester, antepartum Pelvic pain affecting in third trimester, antepartum Disease Resolve d 2021-1 1-07 00:00: 00 2022-09-27 00:00:00 2022-09-27 06:01:43 [facility] History of oligohydra mnios in prior , currently in third trimester History of oligohydra mnios in prior , currently in third trimester Disease Resolve d 2021-1 0-31 00:00: 00 2022-09-27 00:00:00 2022-09-27 06:01:13 [facility] Urinary tract infection without hematuria, site unspecifie d Urinary tract infection without hematuria, site unspecifie d Disease Resolve d 2021-1 0-14 00:00: 00 2022-09-27 00:00:00 2022-09-27 06:02:14 [facility] Edema during in second trimester Edema during in second trimester Disease Resolve d 2021-0 9-16 00:00: 00 2022-09-27 00:00:00 2022-09-27 06:01:27 [facility] Obesity in , antepartum Obesity in , antepartum Disease Resolve d 2021-0 9-16 00:00: 00 2022-09-27 00:00:00 2022-09-27 06:01:41 [facility] Abdominal pain, right lower quadrant Abdominal pain, right lower quadrant Disease Resolve d 2021-0 7-06 00:00: 00 2022-09-27 00:00:00 2022-09-27 06:01:23 [facility] Nausea and vomiting during Nausea and vomiting during Disease Resolve d 2021-0 5-23 00:00: 00 2022-09-27 00:00:00 2022-09-27 06:01:30 [facility] Nausea and vomiting during Nausea and vomiting during Disease Resolve d 2021-0 5-23 00:00: 00 2022-09-27 00:00:00 2022-09-27 06:01:30 [facility] Subchorion ic hematoma in first trimester, single or unspecifie d fetus Subchorion ic hematoma in first trimester, single or unspecifie d fetus Disease Resolve d 0 7-06 00:00: 00 2022-09-17 00:00:00 2022-09-17 10:51:20 [facility] 15 weeks gestation of 15 weeks gestation of Disease Resolve d 0 7-06 00:00: 00 2022 00:00:00 2022 16:05:36 [facility] with inconclusi ve viability, single or unspecifie d fetus with inconclusi ve viability, single or unspecifie d fetus Disease Resolve d 0 4-19 00:00: 00 2022 00:00:00 2022 16:05:33 [facility] Missed menses Missed menses Disease Resolve d 0 4-19 00:00: 00 2022 00:00:00 2022 16:05:31 [facility] with inconclusi ve viability, single or unspecifie d fetus with inconclusi ve viability, single or unspecifie d fetus Disease Resolve d 0 4-19 00:00: 00 2022 00:00:00 2022 16:05:33 [facility] Oligohydra mnios Oligohydra mnios Disease Resolve d 4-22 00:00: 00 2020-02-29 00:00:00 2020-02-29 09:26:05 [facility] Obesity (BMI 30-39.9) Obesity (BMI 30-39.9) Disease Resolve d 9-06 00:00: 00 2020-01-30 00:00:00 2020-01-30 21:40:57 [facility] 26 weeks gestation of 26 weeks gestation of Disease Resolve d 11-05 00:00: 00 2019-12-03 00:00:00 2019-12-03 14:20:39 [facility] Postprandi al nausea Postprandi al nausea Disease Resolve d 2018-10 2-29 00:00: 00 2019-11-05 00:00:00 2019-11-05 17:51:31 [facility] 40 weeks gestation of 40 weeks gestation of Disease Resolve d 04-01 00:00: 00 2019-10-07 00:00:00 2019-10-07 07:23:47 [facility] Active labor at term Active labor at term Disease Resolve d 04-01 00:00: 2019-10-07 00:00:00 2019-10-07 07:23:49 [facility] Common Discomfort s of Common Discomfort s of Disease Resolve d 01-04 00:00: 2019-10-07 00:00:00 2022-04-25 00:40:01 [facility] Allergies, Adverse Reactions, Alerts Allergy Name Allergy Type Status Severity Reaction(s) Onset Date Inactive Date Treating Clinician Comments Source Codeine Propensi ty to adverse reaction s Active 2022-10 00:00: 00 Anat Seybold - Externa l Aripipra zole Propensi ty to adverse reaction s Active 04-26 00:00: 00 Other Reaction( s): Unknown Anat Seybold - Externa l ARIPIPRA ZOLE DRUG INGREDI Active Rash 2014-10 00:00: 00 [facility] PENICILL INS Drug Class Active Rash 2014-10 00:00: 00 [facility] Aripipra zole Drug Allergy Active Rash 2014-10 00:00: 00 [facility] Aripipra zole Monohydr ate Propensi ty to adverse reaction s Active Rash 2014-10 00:00: 00 Anat Maciasybold - Externa l Penicill ins Propensi ty to adverse reaction s Active Rash 2014-10 00:00: 00 Other Reaction( s): Unknown Anat Seybold - Externa l Penicill ins Propensi ty to adverse reaction s Active Rash 2014-10 00:00: 00 [facility] [...] History of tobacco use Passive smoker Anat Ricci d - External Sexual orientation Gildardo jeffrey Sefunmilayoshanae - External Alcoholic beverage intake 2024-12-26 00:00:00 2024-12-26 00:00:00 .29 /d Anat Mesa - External History of Social function 2024-12-26 00:00:00 2024-12-26 00:00:00 Anat Mesa - External Alcohol Comment 2024-05-22 00:00:00 2024-05-22 00:00:00 socially Anat Mesa - External Sex 2024-01-18 21:27:43 2024-01-18 21:27:43 Female (finding) Anat Mesa - External Alcohol intake 2023-11-30 00:00:00 2023-11-30 00:00:00 Ex-drinker (finding) [facility] Exposure to SARS-CoV-2 (event) 2023-02-03 00:00:00 2023-02-13 19:59:00 Not sure [facility] Tobacco use and exposure 2022-09-27 00:00:00 2022-09-27 00:00:00 Smokeless tobacco non-user [facility] Sex assigned at 1995 00:00:00 1995 00:00:00 Anat Hurley Smoking Status Start Date Stop Date Source Tobacco smoking consumption unknown Anat Hurley Never smoked tobacco Anat Gonzáles External Medications Ordered Medication Name Filled Medication Name Start Date Stop Date Current Medication? Ordering Clinician Indication Dosage Frequency Signature (SIG) Comments Components Source Phentermine HCl 37.5 MG oral Tablet 12-26 00:00: 00 Yes [id number] 37.5mg Take 1 tablet (37.5 mg total) by mouth every morning (before breakfast) . Anat Gonzáles Externa l Topiramate 25 MG oral Tablet 12-26 00:00: 00 Yes [id number] 25mg Q.5D Take 1 tablet (25 mg total) by mouth 2 times daily. Anat chan Norethindro ne Acet-Ethiny l Est (Loestrin 10/29, ,) 1-20 MG-MCG oral Tablet 3- 00:00: 00 Yes [id number] 1{tbl} QD Take 1 tablet by mouth daily. Anat chan Phentermine HCl 37.5 MG oral Tablet 11-26 00:00: 00 12-26 00:00 :00 No [id number] 18.75mg Take 0.5 tablets (18.75 mg total) by mouth every morning (before breakfast) . Anat chan Diclofenac Sodium 75 MG oral Tablet Delayed Response 10-29 00:00: 00 Yes [id number] 75mg Q.5D Take 1 tablet (75 mg total) by mouth 2 times daily. Anat chan HYDROcodone -acetaminop hen (NORCO 5) tablet 1 tablet 10-25 17:15: 00 10-25 17:38 :00 No 1{tbl} 1 tablet, Oral, ONCE, 1 dose, On Maddison 10/25/24 at 1115, ARVIN [facility] Ibuprofen (MOTRIN) 800 MG oral Tablet 10-25 00:00: 00 Yes 800mg Take 1 tablet (800 mg total) by mouth 3 times daily (with meals). Anat chan traMADoL 50 mg tablet 10-25 00:00: 00 11-02 05:59 :00 Yes [id number] 50mg Take 1 tablet by mouth every 6 (six) hours as needed for Pain (scale 7-10) for up to 7 days. Indication s: acute pain [facility] Gabapentin 100 MG oral Capsule 10-16 00:00: 00 Yes [id number] 100mg Q.[id number] 3D Take 1 capsule (100 mg total) by mouth 3 times daily. Anat chan Clindamycin HCl 150 MG oral Capsule 10-16 00:00: 00 11-26 00:00 :00 No TAKE ONE (1) CAPSULE(S) BY MOUTH FOUR TIMES A DAY UNTIL ALL TAKEN. Anat chan Gabapentin 100 MG oral Capsule 2023-10 00:00: 00 Yes [id number] 100mg Q.[id number] 3D Take 1 capsule (100 mg total) by mouth 3 times daily. Anat chan Meloxicam 15 MG oral Tablet 2023-10 00:00: 00 Yes [id number] 15mg QD Take 1 tablet (15 mg total) by mouth daily Take with Meals, STOP IF UPSET STOMACH. Anat chan Phentermine HCl 37.5 MG oral Tablet 2023-10 10:15: 05 07-10 00:00 :00 No Take by mouth. Anat chan methylPREDN ISolone 4 MG oral Tablet Therapy Pack 2023-10 00:00: 00 08-30 00:00 :00 No [id number] 1{aldair} Take 1 aldair by mouth See Admin Instructio ns Use as directed. Anat chan Azithromyci n 250 MG oral Tablet 2023-10 00:00: 00 07-16 04:59 :00 No [id number] Take 2 tablets by mouth on day 1 then 1 tablet by mouth daily for 4 days thereafter .. Anat chan ketorolac (TORADOL) injection 15 mg 07-04 01:32: 00 07-04 01:44 :00 No 15mg 15 mg, Slow IV Push, ONCE, 1 dose, On Tue07/03/24 at 2045, ARVIN [facility] bromphenira mine-pseudo ephedrine-D M (BROMFED DM) 2-30-10 mg/5 mL syrup 06-28 00:00: 00 07-09 04:59 :00 No [id number] 10mL Take 10 mL by mouth 4 (four) times daily for 10 days. [facility] Phentermine HCl 37.5 MG oral Tablet 06-27 00:00: 00 11-26 00:00 :00 No [id number] 37.5mg Take 1 tablet (37.5 mg total) by mouth every morning (before breakfast) . Anat chan codeine-gua ifenesin (ROBITUSSIN AC) 10-100 mg/5 mL oral solution 10 mL 06-26 01:45: 00 06-26 01:54 :00 No 10mL 10 mL, Oral, ONCE, 1 dose, On Tue06/25/24 at 2045, [facility]IN [facility] Pseudoeph-B romphen-DM 30-2-10 MG/5ML oral Syrup 06-25 00:00: 00 08-30 00:00 :00 No 5mL Q.25D Take 5 mL by mouth 4 times daily as needed. Anat chan guaiFENesin -Codeine 100-10 MG/5ML oral Solution 06-25 00:00: 00 07-03 04:59 :00 No 5mL Q.25D Take 5 mL by mouth every 6 hours as needed. Anat chan Albuterol HFA 108 (90 Base) MCG/ACT IN AERS 06-12 00:00: 00 Yes [id number] 2{puff} Q.25D Inhale 2 puffs into the lungs every 6 hours as needed for wheezing or shortness of breath. Anat chan FLUTICASONE PROPIONATE, NASAL, 50 MCG/ACT nasal Suspension 06-12 00:00: 00 11-26 00:00 :00 No [id number] 50ug QD Use 1 spray (50 mcg total) in each nostril daily. Anat chan Benzonatate 200 MG oral Capsule 06-12 00:00: 00 08-30 00:00 :00 No [id number] 200mg Q.[id number] 3D Take 1 capsule (200 mg total) by mouth 3 times daily as needed for cough. Anat chan Azelastine HCl 0.1 % nasal Solution 06-12 00:00: 00 08-30 00:00 :00 No [id number] 2 sprays in each nostril bid prn for congestion . Anat chan Meloxicam 15 MG oral Tablet 06-06 00:00: 00 08-30 00:00 :00 No 15mg QD Take 1 tablet (15 mg total) by mouth daily Take with Meals, STOP IF UPSET STOMACH. Anat chan Famotidine (PEPCID) 20 MG oral tablet 05-30 00:00: 00 11-26 00:00 :00 No [id number] 20mg Q.5D Take 1 tablet (20 mg total) by mouth 2 times daily. Anat chan Ondansetron HCl 4 MG oral Tablet 05-30 00:00: 00 06-27 00:00 :00 No [id number] 8mg Q.[id number] 3D Take 2 tablets (8 mg total) by mouth every 8 hours as needed for nausea. Anat chan Trazodone HCl 50 MG oral Tablet 05-22 15:17: 05-22 00:00 :00 No every 24 hours. Anat chan Levonorgest -Eth Estrad -Day (Simpesse) [...] 05-22 00:00: 00 06-27 00:00 :00 No [id number] 15mg Take 1 capsule (15 mg total) by mouth every morning. Anat chan Ketorolac Tromethamin e 10 MG oral Tablet 05-22 00:00: 00 06-06 00:00 :00 No [id number] 10mg Q.25D Take 1 tablet (10 mg total) by mouth every 6 hours as needed for pain. Anat chan Norgestimat e-Eth Estradiol (Sprintec 28) 0.25-35 MG-MCG oral Tablet 05-18 00:00: 00 12-07 00:00 :00 No [id number] 100 1{tbl} QD Take 1 tablet by mouth daily. Anat chan ketorolac (TORADOL) injection 30 mg 05-13 06:15: 00 05-13 06:15 :00 No 30mg 30 mg, Intramuscu lar, ONCE, 1 dose, On 05/13/24 at 0115, Routine [facility] Azelastine HCl 0.1 % nasal Solution 05-10 00:00: 00 05-22 00:00 :00 No [id number] 1{spray } Q.5D Use 1 spray in each nostril 2 times daily. Anat chan Pseudoeph-B romphen-DM 30-2-10 MG/5ML oral Syrup 05-10 00:00: 00 05-22 00:00 :00 No [id number] 10mL Q.25D Take 10 mL by mouth 4 times daily as needed. Anat chan dexamethaso ne (DECADRON PHOSPHATE) injection 10 mg 10-14 05:00: 00 10-14 04:06 :00 No 10mg 10 mg, Intramuscu lar, ONCE, 1 dose, On Maddison 10/13/23 at 2300, Routine [facility] ketorolac (TORADOL) injection 30 mg 10-14 05:00: 00 10-14 04:07 :00 No 30mg 30 mg, Intramuscu lar, ONCE, 1 dose, On Maddison 10/13/23 at 2300, Routine [facility] gabapentin (NEURONTIN) capsule 300 mg 10-14 04:00: 00 10-14 04:07 :00 No 300mg 300 mg, Oral, ONCE, 1 dose, On [place] 10/13/23 at 2200, ARVIN [facility] methylPREDN ISolone 4 mg tablets 10-14 00:00: 00 Yes [id number] Take by mouth SEE-INSTRU CTIONS. follow package directions [facility] Gabapentin 300 MG oral Capsule 10-13 00:00: 00 07-10 00:00 :00 No 300mg Q.[id number] 3D Take 1 capsule (300 mg total) by mouth 3 times daily as needed. Anat chan Ketorolac Tromethamin e 10 MG oral Tablet 10-13 00:00: 00 05-22 00:00 :00 No 10mg Q.25D Take 1 tablet (10 mg total) by mouth every 6 hours as needed. Anat chan methocarbam oL 750 mg tablet 10-13 00:00: 00 10-17 05:59 :00 No [id number] 750mg Take 1 tablet by mouth 4 (four) times daily for 3 days. [facility] azithromyci n 500 mg tablet 2023-1 2-19 00:00: 00 10-03 05:59 :00 No [id number] 500mg Take 1 tablet by mouth in the morning for 5 days. [facility] dexamethaso ne sod phos PF injection 10 mg 2022-10 06:00: 00 09-04 05:04 :00 No 10mg 10 mg, Intramuscu lar, ONCE, 1 dose, On 09/04/23 at 0000, Routine [facility] ipratropium -albuteroL (DUONEB) 0.5 mg-3 mg(2.5 mg base)/3 mL nebulizer solution 3 mL 2022-10 05:45: 00 09-04 05:03 :00 No 3mL 3 mL, Inhalation , ONCE NOW, 1 dose, On 09/03/23 at 2345, Routine [facility] benzonatate 100 mg capsule 2022-10 00:00: 00 Yes [id number] 200mg Take 2 capsules by mouth 3 (three) times daily as needed for Cough. [facility] Albuterol (PROVENTIL) (2.5 MG/3ML) 0.083% inhalation Inhalant Solution 2022-10 00:00: 00 Yes 2.5mg Q4H Inhale 2.5 mg into the lungs every 4 (four) hours. Anat chan predniSONE 20 mg tablet 2022-10 00:00: 00 09-12 05:59 :00 No [id number] 20mg Take 1 tablet by mouth in the morning for 7 days. [facility] acetaminoph en (TYLENOL) tablet 650 mg 2022-10 17:30: 00 08-29 16:57 :00 No 650mg 650 mg, Oral, ONCE, 1 dose, On 08/29/23 at 1130, ARVIN [facility] ketorolac (TORADOL) injection 60 mg 2022-10 17:30: 00 08-29 16:56 :00 No 60mg 60 mg, Intramuscu lar, ONCE, 1 dose, On 08/29/23 at 1130, ARVIN [facility] famotidine (PEPCID AC) tablet 40 mg 2022-10 16:32: 00 08-29 16:56 :00 No 40mg 40 mg, Oral, ONCE, 1 dose, On 08/29/23 at 1045, ARVIN [facility] ibuprofen 800 mg tablet 2022-10 00:00: 00 Yes [id number] 800mg Take 1 tablet by mouth every 6 (six) hours as needed for Pain (scale 4-6) or Temp > 38.5 C. [facility] benzonatate 100 mg capsule 2022-10 00:00: 00 Yes [id number] 100mg Take 1 capsule by mouth 3 (three) times daily as needed for Cough. [facility] Oseltamivir Phosphate 75 MG oral Capsule 2022-10 00:00: 00 05-22 00:00 :00 No 75mg Q.5D Take 1 capsule (75 mg total) by mouth 2 times daily. [facility] cyclobenzap rine 10 mg tablet 03-29 00:00: 00 Yes [facility] azithromyci n 250 mg tablet 02-13 00:00: 00 09-03 00:00 :00 No [id number] Take 2 tablets on day 1 and 1 tablet on days 2-5. [facility] etonogestre L (NEXPLANON) implant 68 mg 11-05 18:00: 00 11-05 17:05 :00 No [id number] 68mg [facility] phentermine HCl (PHENTERMIN E ORAL) 10-21 10:43: 33 Yes Take by mouth. [facility] fexofenadin e HCl (MAGNOLIA ALLERGY ORAL) 2021-10 16:51: 23 Yes [facility] vitamin w/FA tablet 2021-10 00:00: 00 11-05 00:00 :00 No [id number] 102 1{tbl} Take 1 tablet by mouth in the morning. [facility] docusate 100 mg capsule 2021-10 00:00: 00 11-05 00:00 :00 No [id number] 102 200mg Take 2 capsules by mouth once daily as needed for Constipati on. [facility] ferrous sulfate 325 mg (65 mg iron) tablet 2021-10 00:00: 00 11-05 00:00 :00 No [id number] 102 325mg Take 1 tablet by mouth in the morning and 1 tablet in the evening. [facility] ibuprofen 600 mg tablet 2021-10 00:00: 00 11-05 00:00 :00 No [id number] 102 600mg Take 1 tablet by mouth every 6 (six) hours as needed (Pain). Take with food or milk. [facility] norethindro ne 0.35 mg tablet 2021-10 00:00: 00 11-05 00:00 :00 No [id number] 102 1{tbl} Take 1 tablet by mouth in the morning. [facility] rho(D) immune globulin (RHOGAM) syringe 300 mcg 2021-10 20:35: 22 Yes 300ug 300 mcg, Intramuscu lar, ONCE, For 1 dose, Conditiona l, Routine [facility] HYDROcodone -acetaminop hen (NORCO 5) 5-325 mg tablet 1 tablet 2021-10 20:35: 02 Yes 1{tbl} 1 tablet, Oral, Q6HPRN, Starting on Tue09/27/22 at 1435, Until Discontinu ed, Routine, Pain (scale 7-10) [facility] ibuprofen (IBU) tablet 600 mg 2021-10 20:35: 02 Yes 600mg 600 mg, Oral, Q6HPRN, Starting on Tue09/27/22 at 1435, Until Discontinu ed, Routine, Pain (scale 4-6) [facility] acetaminoph en (TYLENOL) tablet 650 mg 2021-10 20:35: 02 Yes 650mg 650 mg, Oral, Q6HPRN, Starting on Tue09/27/22 at 1435, Until Discontinu ed, Routine, Pain (scale 1-3) [facility] diphenhydrA MINE (BENADRYL) tablet 25 mg 2021-10 20:35: 02 Yes 25mg 25 mg, Oral, Q6HPRN, Starting on Tue09/27/22 at 1435, Until Discontinu ed, Routine, Sleep, Itching [facility] ondansetron (ZOFRAN (PF)) injection 4 mg 2021-10 20:35: 02 Yes 4mg 4 mg, Slow IV Push, Q8HPRN, Starting on Tue09/27/22 at 1435, Until Discontinu ed, Routine, Nausea and Vomiting (N/V) [facility] simethicone (GAS RELIEF (SIMETHICON E)) chewable tablet 160 mg 2021-10 20:35: 02 Yes 160mg 160 mg, Oral, PC+HSPRN, Starting on Tue09/27/22 at 1435, Until Discontinu ed, Routine, Gas [facility] docusate (COLACE) capsule 200 mg 2021-10 20:35: 02 Yes 200mg 200 mg, Oral, QDAILYPRN, Starting on Tue09/27/22 at 1435, Until Discontinu ed, Routine, Constipati on [facility] magnesium hydroxide (MILK OF MAGNESIA) 400 mg/5 mL suspension 30 mL 2021-10 20:35: 02 Yes 30mL 30 mL, Oral, QDAILYPRN, Starting on Tue09/27/22 at 1435, Until Discontinu ed, Routine, Constipati on [facility] benzocaine- menthol (DERMOPLAST ) 20-0.5 % topical spray 2021-10 20:35: 02 Yes Topical, PRN, Starting on Tue09/27/22 at 1435, Until Discontinu ed, Routine, Perineum discomfort [facility] witch Monica (TUCKS) 50 % topical pad 2021-10 20:34: 48 Yes Topical, Q4HPRN, Starting on Tue09/27/22 at 1434, Until Discontinu ed, Routine, rectal/hem orrhoidal pain [facility] oxytocin (PITOCIN) 30 units in NS 500 mL IV infusion 2021-10 20:14: 48 09-27 20:34 :59 No 600mL/h 600 mL/hr, IV Infusion, PRN, For post delivery uterine atony., Starting on Tue09/27/[address] at 600 mL/hr for 1 hr then 150 mL/hr for 1 hr.
[facility] oxytocin (PITOCIN) 30 units in NS 500 mL IV infusion 2021-10 20:14: 48 09-27 20:34 :59 No 300mL/h 300 mL/hr, IV Infusion, SEE-INSTRU CTIONS, Starting on Tue09/27/[address] at 300 mL/hr for 1 hr then 150 mL/hr for 1 hr. & nbsp; For post delivery uterotonic
[facility] PIB fentaNYL-ro pivacaine 2 mcg/mL-0.1 % (PF) in NS 200 mL epidural infusion RTU 2021-10 17:25: 00 09-27 20:21 :39 No Epidural, CONTINUOUS PRN, Starting on Tue09/27/22 at 1125, Until Tue09/27/22 at 1421, Routine, Intra-op [facility] lidocaine-e pinephrine (XYLOCAINE W/EPINEPHRI NE) 2 %-1:200,000 injection 2021-10 17:22: 00 09-27 20:21 :39 No Intravenou s, ONCE INTRA PROCEDURE, Starting on Tue09/27/22 at 1122, Until Tue09/27/22 at 1421, Routine, Intra-op [facility] lidocaine 1% (XYLOCAINE) 100 mg/10 mL (1 %) injection 2021-10 17:17: 00 09-27 20:21 :39 No Infiltrati on, ONCE INTRA PROCEDURE, Starting on Tue09/27/22 at 1117, Until Tue09/27/22 at 1421, Routine, Intra-op [facility] esomeprazol e magnesium (NEXIUM ORAL) 2021-10 14:16: 31 Yes Take by mouth. [facility] acetaminoph en 325 mg Cap 2021-10 14:16: 31 Yes Take by mouth. [facility] proMETHazin e (PHENERGAN) 25 mg in NaCl 0.9% (NS) 50 mL IV piggyback 2021-10 11:00: 00 09-27 22:13 :26 No 25mg 25 mg, IV Piggyback, Q4HPRN, Starting on Tue09/27/22 at 0500, Until Tue09/27/22 at 1613, Routine, Nausea and Vomiting (N/V) [facility] FENTanyl PF (SUBLIMAZE (PF)) injection 100 mcg 2021-10 11:00: 00 09-27 22:13 :26 No 100ug 100 mcg, Slow IV Push, Q1HPRN, Starting on Tue09/27/22 at 0500, Until Tue09/27/22 at 1613, Routine, Pain (scale 7-10) [facility] clindamycin in 5 % dextrose (CLEOCIN) 900 [...] (see Comments)< br>Restric vonda use approved by: [employer]
team member approving Restricted medication : JOSETTE CHEUNG [facility] oxytocin (PITOCIN) 30 units in NS 500 mL IV infusion 2021-10 11:00: 00 09-27 22:13 :32 No 2mU/min at 2-40 mL/hr, IV Infusion, TITRATE, Starting on Tue09/27/22 at 0500, Until Tue09/27/22 at 1613, ARVIN [facility] lactated ringers IV infusion 500 mL 2021-10 10:29: 52 09-27 22:13 :32 No 500mL at 999 mL/hr, 500 mL, IV Infusion, PRN - SEE INSTRUCTIO NS, Starting on Tue09/27/22 at 0429, Until Tue09/27/22 at 1613, Routine [facility] D5W-LR IV infusion 1,000 mL 2021-10 10:29: 52 09-27 22:13 :32 No 1000mL at 1-125 mL/hr, IV Infusion, TITRATE, Starting on Tue09/27/22 at 0429, Until Tue09/27/22 at 1613, Routine [facility] acetaminoph en 325 mg Cap 2021-10 09:18: 33 Yes Take by mouth. [facility] guaifenesin (MUCINEX ORAL) 2021-10 09:18: 33 Yes Take by mouth. [facility] esomeprazol e magnesium (NEXIUM ORAL) 2021-10 16:15: 19 Yes Take by mouth. [facility] acetaminoph en 325 mg Cap 2021-10 16:15: 19 Yes Take by mouth. [facility] esomeprazol e magnesium (NEXIUM ORAL) 2021-10 11:33: 58 Yes Take by mouth. [facility] acetaminoph en 325 mg Cap 2021-10 11:33: 58 Yes Take by mouth. [facility] esomeprazol e magnesium (NEXIUM ORAL) 2021-10 10:48: 25 Yes Take by mouth. [facility] acetaminoph en 325 mg Cap 2021-10 10:48: 25 Yes Take by mouth. [facility] esomeprazol e magnesium (NEXIUM ORAL) 2021-10 21:40: 31 Yes Take by mouth. [facility] acetaminoph en 325 mg Cap 2021-10 21:40: 31 Yes Take by mouth. [facility] esomeprazol e magnesium (NEXIUM ORAL) 2021-10 23:12: 38 Yes Take by mouth. [facility] acetaminoph en 325 mg Cap 2021-10 23:12: 38 Yes Take by mouth. [facility] esomeprazol e magnesium (NEXIUM ORAL) 2021-10 07:10: 48 Yes Take by mouth. [facility] acetaminoph en 325 mg Cap 2021-10 07:10: 48 Yes Take by mouth. [facility] acetaminoph en 325 mg Cap 2021-10 10:43: 38 Yes Take by mouth. [facility] fexofenadin e HCl (MAGNOLIA ALLERGY ORAL) 2021-10 10:43: 38 Yes [facility] metroNIDAZO LE (FLAGYL) tablet 500 mg 2021-10 01:58: 00 08-23 02:01 :00 No 500mg 500 mg, Oral, ONCE NOW, 1 dose, On 08/22/22 at 2000, Routine
Reason for Anti-Infec tive: Documented Infection< br>Documen vonda Infection Site: Pelvic
Duration of Therapy: 7 days [facility] esomeprazol e magnesium (NEXIUM ORAL) 2021-10 20:18: 11 Yes Take by mouth. [facility] acetaminoph en (TYLENOL) 325 mg Cap 2021-10 20:18: 11 Yes Take by mouth. [facility] metroNIDAZO LE 500 mg tablet 2021-10 00:00: 00 Yes [id number] 500mg Take 1 tablet by mouth every 12 (twelve) hours. [facility] esomeprazol e magnesium (NEXIUM ORAL) 2021-10 20:28: 12 Yes Take by mouth. [facility] acetaminoph en (TYLENOL) 325 mg Cap 2021-10 20:28: 12 Yes Take by mouth. [facility] esomeprazol e magnesium (NEXIUM ORAL) 2021-10 0 16:41: 09 Yes Take by mouth. [facility] acetaminoph en (TYLENOL) 325 mg Cap 2021-10 16:41: 09 Yes Take by mouth. [facility] fexofenadin e HCl (MAGNOLIA ALLERGY ORAL) 2021-10 0 08:36: 33 Yes [facility] NaCl 0.9% (NS) bolus infusion 1,000 mL 2021-10 13:45: 00 07-31 14:26 :00 No 1000mL at 999 mL/hr, 1,000 mL, IV Piggyback, ONCE, 1 dose, On 07/31/22 at 0845, STAT [facility] esomeprazol e magnesium (NEXIUM ORAL) 2021-10 13:26: 52 Yes Take by mouth. [facility] acetaminoph en (TYLENOL) 325 mg Cap 2021-10 13:26: 52 Yes Take by mouth. [facility] ondansetron 8 mg disintegrat ing tablet 2021-10 00:00: 00 Yes [id number] 8mg Take 1 tablet by mouth every 8 (eight) hours as needed for Nausea and Vomiting (N/V). [facility] fluoxetine HCl (FLUOXETINE ORAL) 2021-10 13:21: 03 07-23 00:00 :00 No 20mg Take 20 mg by mouth daily. [facility] Nitrofurant oin&Nit. Macrocryst (MACROBID) 100 mg capsule 100 mg 2021-10 0 16:15: 00 07-21 15:54 :00 No 100mg 100 mg, Oral, ONCE, 1 dose, On 07/21/22 at 1115, Routine
Reason for Anti-Infec tive: Empiric Therapy for Suspected Infection< br>Empiric Therapy Site: Urine
D uration of therapy: 72 hours [facility] fluoxetine HCl (FLUOXETINE ORAL) 2021-10 0 11:02: 42 Yes 20mg Take 20 mg by mouth daily. [facility] Nitrofurant oin&Nit. Macrocryst 100 mg capsule 2021-10 00:00: 00 07-30 00:00 :00 No [id number] 100mg Take 1 capsule by mouth in the morning and 1 capsule in the evening. [facility] fluoxetine HCl (FLUOXETINE ORAL) 2021-10 11:05: 17 Yes 20mg Take 20 mg by mouth daily. [facility] montelukast 10 mg tablet 04-30 00:00: 00 Yes [id number] 10mg Take 1 tablet by mouth every evening. [facility] buPROPion SR (WELLBUTRIN SR) 100 mg SR tablet 04-30 00:00: 00 09-03 00:00 :00 No [id number] 100mg Take 1 tablet by mouth in the morning and 1 tablet in the evening. [facility] ondansetron (ZOFRAN) 8 mg tablet 04-30 00:00: 07-30 00:00 :00 No [id number] 8mg Take 1 tablet by mouth every 8 (eight) hours as needed for Nausea and Vomiting (N/V). [facility] albuterol 90 mcg/actuati on inhaler 04-07 00:00: 00 09-03 00:00 :00 No [id number] 2{puff} Inhale 2 Puffs every 6 (six) hours as needed for Wheezing or Shortness of Breath. [facility] aspirin 81 mg EC tablet 04-07 00:00: 00 09-28 00:00 :00 No [id number] 81mg Take 1 tablet by mouth daily. [facility] buPROPion SR (WELLBUTRIN SR) 100 mg SR tablet 04-07 00:00: 00 04-28 00:00 :00 No [id number] 100mg Take 1 tablet by mouth 2 (two) times daily. [facility] montelukast 10 mg tablet 04-07 00:00: 00 04-28 00:00 :00 No [id number] 10mg Take 1 tablet by mouth every evening. [facility] guaiFENesin 400 mg tablet 6-26 00:00: 00 07-23 00:00 :00 No [id number] 400mg Take 1 tablet by mouth every 4 (four) hours as needed for Cough. [facility] ondansetron (ZOFRAN) 8 mg tablet 23 00:00: 00 04-28 00:00 :00 No [id number] 8mg Take 1 tablet by mouth every 8 (eight) hours as needed for Nausea and Vomiting (N/V). [facility] albuterol 90 mcg/actuati on inhaler 02-21 00:00: 00 07-23 00:00 :00 No [id number] 2{puff} Inhale 2 Puffs every 4 (four) hours as needed for Wheezing or Shortness of Breath. [facility] fluoxetine HCl (FLUOXETINE ORAL) 02-02 09:08: 33 Yes 20mg Take 20 mg by mouth daily. [facility] metoclopram demetris HCl 10 mg tablet 02-02 00:00: 00 07-23 00:00 :00 No [id number] Take one tablet every 8 hour as needed for nausea in [facility] 26-iron ps-folic-dh a (VITAFOL-ON E) 29 mg iron- 1 mg-200 mg per capsule 01-26 00:00: 00 07-23 00:00 :00 No [id number] 1{capsu le} Take 1 capsule by mouth daily for 180 days. [facility] 26-iron ps-folic-dh a (VITAFOL-ON E) 29 mg iron- 1 mg-200 mg per capsule 01-26 00:00: 00 07-23 00:00 :00 No [id number] 1{capsu le} Take 1 capsule by mouth daily for 180 days. [facility] Trazodone HCl 50 MG Trazodone HCl 50 MG 03-05 00:00: 00 No 1{table t_at_be dtime_a s_neede d} QD Trazodone HCl 50 MG busPIRone 5 mg tablet 18 00:00: 00 01-26 00:00 :00 No [id number] 5mg Take 1 tablet by mouth 2 (two) times daily. [facility] NUVARING 0.12-0.015 mg/24 hr vaginal insert 02-28 00:00: 00 09-30 00:00 :00 No [id number] 1{each} Insert 1 Each into vagina once every month. Insert vaginally and leave in place for 3 consecutiv e weeks, then remove for 1 week. [facility] vitamin w/FA tablet 01-31 00:00: 00 01-26 00:00 :00 No [id number] 1{tbl} Take 1 tablet by mouth daily. [facility] docusate calcium 240 mg capsule 01-31 00:00: 01-26 00:00 :00 No [id number] 240mg Take 1 capsule by mouth once daily as needed for Constipati on. [facility] ferrous sulfate 325 mg (65 mg iron) tablet 01-31 00:00: 01-26 00:00 :00 No [id number] 325mg Take 1 tablet by mouth 2 (two) times daily. [facility] ibuprofen 600 mg tablet 01-31 00:00: 00 01-26 00:00 :00 No [id number] 600mg Take 1 tablet by mouth every 6 (six) hours as needed (Pain). Take with food or milk. [facility] Flonase Flonase 2017-10 00:00: 00 Yes Soledad Gardner 2 sprays each nostril prn [facility] Flonase 50 MCG/ACT Flonase 50 MCG/ACT 2017-10 2- 00:00: 00 No QD Flonase 50 MCG/ACT Flonase 50 MCG/ACT Flonase 50 MCG/ACT 2017-10 2- 00:00: 00 No QD Flonase 50 MCG/ACT Flonase 50 MCG/ACT Flonase 50 MCG/ACT 2017-10 00:00: 00 No QD Flonase 50 MCG/ACT DiazePAM 2 MG Oral Tablet DiazePAM 2 MG Oral Tablet 2017-10 00:00: 00 Yes JOEL WILLIAM M.D. 1 hour PO before [facility] Yes Soledad Gardner not defined [facility] FLUoxetine HCl 20 MG FLUoxetine [...] Free 6 MO-64 YRS 2022-07-23 00:00:00 Completed [facility] TDAP 2022-07-23 00:00:00 Completed [facility] Influenza Virus Vaccine Quad IM, Preserv and ABX Free 6 MO-64 YRS 2022-07-23 00:00:00 Completed [facility] TDAP 2022-07-23 00:00:00 Completed [facility] Influenza Virus Vaccine Quad IM, Preserv and ABX Free 6 MO-64 YRS 2022-07-23 00:00:00 Completed [facility] TDAP 2022-07-23 00:00:00 Completed [facility] Influenza Virus Vaccine Quad IM, Preserv and ABX Free 6 MO-64 YRS 2022-07-23 00:00:00 Completed [facility] TDAP 2022-07-23 00:00:00 Completed [facility] Influenza Virus Vaccine Quad IM, Preserv and ABX Free 6 MO-64 YRS 2022-07-23 00:00:00 Completed [facility] TDAP 2022-07-23 00:00:00 Completed [facility] Influenza Virus Vaccine Quad IM, Preserv and ABX Free 6 MO-64 YRS 2022-07-23 00:00:00 Completed [facility] TDAP 2022-07-23 00:00:00 Completed [facility] Influenza Virus Vaccine Quad IM, Preserv and ABX Free 6 MO-64 YRS 2022-07-23 00:00:00 Completed [facility] TDAP 2022-07-23 00:00:00 Completed [facility] Influenza Virus Vaccine Quad IM, Preserv and ABX Free 6 MO-64 YRS 2022-07-23 00:00:00 Completed [facility] TDAP 2022-07-23 00:00:00 Completed [facility] Influenza Virus Vaccine Quad IM, Preserv and ABX Free 6 MO-64 YRS 2022-07-23 00:00:00 Completed [facility] TDAP 2022-07-23 00:00:00 Completed [facility] Influenza Virus Vaccine Quad IM, Preserv and ABX Free 6 MO-64 YRS 2022-07-23 00:00:00 Completed [facility] TDAP 2022-07-23 00:00:00 Completed [facility] Influenza Virus Vaccine Quad IM, Preserv and ABX Free 6 MO-64 YRS 2022-07-23 00:00:00 Completed [facility] TDAP 2022-07-23 00:00:00 Completed [facility] Influenza Virus Vaccine Quad IM, Preserv and ABX Free 6 MO-64 YRS 2022-07-23 00:00:00 Completed [facility] TDAP 2022-07-23 00:00:00 Completed [facility] Influenza Virus Vaccine Quad IM, Preserv and ABX Free 6 MO-64 YRS 2022-07-23 00:00:00 Completed [facility] TDAP 2022-07-23 00:00:00 Completed [facility] Influenza Virus Vaccine Quad IM, Preserv and ABX Free 6 MO-64 YRS 2022-07-23 00:00:00 Completed [facility] TDAP 2022-07-23 00:00:00 Completed [facility] Influenza Virus Vaccine Quad IM, Preserv and ABX Free 6 MO-64 YRS 2022-07-23 00:00:00 Completed [facility] TDAP 2022-07-23 00:00:00 Completed [facility] Influenza Virus Vaccine Quad IM, Preserv and ABX Free 6 MO-64 YRS 2022-07-23 00:00:00 Completed [facility] TDAP 2022-07-23 00:00:00 Completed [facility] Influenza Virus Vaccine Quad IM, Preserv and ABX Free 6 MO-64 YRS 2022-07-23 00:00:00 Completed [facility] TDAP 2022-07-23 00:00:00 Completed [facility] Influenza Virus Vaccine Quad IM, Preserv and ABX Free 6 MO-64 YRS 2022-07-23 00:00:00 Completed [facility] TDAP 2022-07-23 00:00:00 Completed [facility] Influenza Virus Vaccine Quad IM, Preserv and ABX Free 6 MO-64 YRS 2022-07-23 00:00:00 Completed [facility] TDAP 2022-07-23 00:00:00 Completed [facility] Influenza Virus Vaccine Quad IM, Preserv and ABX Free 6 MO-64 YRS 2022-07-23 00:00:00 Completed [facility] TDAP 2022-07-23 00:00:00 Completed [facility] Influenza Virus Vaccine Quad IM, Preserv and ABX Free 6 MO-64 YRS 2022-07-23 00:00:00 Completed [facility] TDAP 2022-07-23 00:00:00 Completed [facility] Influenza Virus Vaccine Quad IM, Preserv and ABX Free 6 MO-64 YRS 2022-07-23 00:00:00 Completed [facility] TDAP 2022-07-23 00:00:00 Completed [facility] Influenza Virus Vaccine Quad IM, Preserv and ABX Free 6 MO-64 YRS 2022-07-23 00:00:00 Completed [facility] TDAP 2022-07-23 00:00:00 Completed [facility] Influenza Virus Vaccine Quad IM, Preserv and ABX Free 6 MO-64 YRS 2022-07-23 00:00:00 Completed [facility] TDAP 2022-07-23 00:00:00 Completed [facility] Influenza Virus Vaccine Quad IM, Preserv and ABX Free 6 MO-64 YRS 2022-07-23 00:00:00 Completed [facility] TDAP 2022-07-23 00:00:00 Completed [facility] Influenza Virus Vaccine Quad IM, Preserv and ABX Free 6 MO-64 YRS 2022-07-23 00:00:00 Completed [facility] TDAP 2022-07-23 00:00:00 Completed [facility] Influenza Virus Vaccine Quad IM, Preserv and ABX Free 6 MO-64 YRS 2022-07-23 00:00:00 Completed [facility] TDAP 2022-07-23 00:00:00 Completed [facility] Influenza Virus Vaccine Quad IM, Preserv and ABX Free 6 MO-64 YRS 2022-07-23 00:00:00 Completed [facility] TDAP 2022-07-23 00:00:00 Completed [facility] Influenza Virus Vaccine Quad IM, Preserv and ABX Free 6 MO-64 YRS 2022-07-23 00:00:00 Completed [facility] TDAP 2022-07-23 00:00:00 Completed [facility] Influenza Virus Vaccine Quad IM, Preserv and ABX Free 6 MO-64 YRS 2022-07-23 00:00:00 Completed [facility] TDAP 2022-07-23 00:00:00 Completed [facility] Influenza Virus Vaccine Quad IM, Preserv and ABX Free 6 MO-64 YRS 2022-07-23 00:00:00 Completed [facility] TDAP 2022-07-23 00:00:00 Completed [facility] Influenza Virus Vaccine Quad IM, Preserv and ABX Free 6 MO-64 YRS 2022-07-23 00:00:00 Completed [facility] TDAP 2022-07-23 00:00:00 Completed [facility] Influenza Virus Vaccine Quad IM, Preserv and ABX Free 6 MO-64 YRS 2022-07-23 00:00:00 Completed [facility] TDAP 2022-07-23 00:00:00 Completed [facility] Influenza Virus Vaccine Quad IM, Preserv and ABX Free 6 MO-64 YRS 2022-07-23 00:00:00 Completed [facility] TDAP 2022-07-23 00:00:00 Completed [facility] Influenza Virus Vaccine Quad IM, Preserv and ABX Free 6 MO-64 YRS 2022-07-23 00:00:00 Completed [facility] TDAP 2022-07-23 00:00:00 Completed [facility] Influenza Virus Vaccine Quad IM, Preserv and ABX Free 6 MO-64 YRS 2022-07-23 00:00:00 Completed [facility] TDAP 2022-07-23 00:00:00 Completed [facility] Influenza Virus Vaccine Quad IM, Preserv and ABX Free 6 MO-64 YRS 2022-07-23 00:00:00 Completed [facility] TDAP 2022-07-23 00:00:00 Completed [facility] Influenza Virus Vaccine Quad IM, Preserv and ABX Free 6 MO-64 YRS 2022-07-23 00:00:00 Completed [facility] TDAP 2022-07-23 00:00:00 Completed [facility] Influenza Virus Vaccine Quad IM, Preserv and ABX Free 6 MO-64 YRS 2022-07-23 00:00:00 Completed [facility] TDAP 2022-07-23 00:00:00 Completed [facility] Influenza Virus Vaccine Quad IM, Preserv and ABX Free 6 MO-64 YRS 2022-07-23 00:00:00 Completed [facility] TDAP 2022-07-23 00:00:00 Completed [facility] Influenza Virus Vaccine Quad IM, Preserv and ABX Free 6 MO-64 YRS 2022-07-23 00:00:00 Completed [facility] TDAP 2022-07-23 00:00:00 Completed [facility] Influenza Virus Vaccine Quad IM, Preserv and ABX Free 6 MO-64 YRS 2022-07-23 00:00:00 Completed [facility] TDAP 2022-07-23 00:00:00 Completed [facility] Influenza Virus Vaccine Quad IM, Preserv and ABX Free 6 MO-64 YRS 2022-07-23 00:00:00 Completed [facility] TDAP 2022-07-23 00:00:00 Completed [facility] Influenza Virus Vaccine Quad IM, Preserv and ABX Free 6 MO-64 YRS (FLUCELVAX) 2022-07-23 00:00:00 Completed TDAP 2022-07-23 00:00:00 Completed Influenza Virus Vaccine Quad IM, Preserv and ABX Free 6 MO-64 YRS (FLUCELVAX) 2022-07-23 00:00:00 Completed TDAP 2022-07-23 00:00:00 Completed Influenza Virus Vaccine 2021-07-31 00:00:00 Completed [facility] Influenza Virus Vaccine 2021-07-31 00:00:00 Completed [facility] SARS-COV-2 COVID-19 OTIS/J&J VACCINE 2021-06-04 00:00:00 Completed [facility] SARS-COV-2 COVID-19 OTIS/J&J VACCINE 2021-06-04 00:00:00 Completed [facility] SARS-COV-2 COVID-19 OTIS/J&J VACCINE 2021-06-04 00:00:00 Completed [facility] SARS-COV-2 COVID-19 OTIS/J&J VACCINE 2021-06-04 00:00:00 Completed [facility] SARS-COV-2 COVID-19 OTIS/J&J VACCINE 2021-06-04 00:00:00 Completed [facility] SARS-COV-2 COVID-19 OTIS/J&J VACCINE 2021-06-04 00:00:00 Completed [facility] SARS-COV-2 COVID-19 OTIS/J&J VACCINE 2021-06-04 00:00:00 Completed [facility] SARS-COV-2 COVID-19 OTIS/J&J VACCINE 2021-06-04 00:00:00 Completed [facility] SARS-COV-2 COVID-19 OTIS/J&J VACCINE 2021-06-04 00:00:00 Completed [facility] SARS-COV-2 COVID-19 OTIS/J&J VACCINE 2021-06-04 00:00:00 Completed [facility] SARS-COV-2 COVID-19 OTIS/J&J VACCINE 2021-06-04 00:00:00 Completed [facility] SARS-COV-2 COVID-19 OTIS/J&J VACCINE 2021-06-04 00:00:00 Completed [facility] SARS-COV-2 COVID-19 OTIS/J&J VACCINE 2021-06-04 00:00:00 Completed [facility] SARS-COV-2 COVID-19 OTIS/J&J VACCINE 2021-06-04 00:00:00 Completed [facility] SARS-COV-2 COVID-19 OTIS/J&J VACCINE 2021-06-04 00:00:00 Completed [facility] SARS-COV-2 COVID-19 OTIS/J&J VACCINE 2021-06-04 00:00:00 Completed [facility] SARS-COV-2 COVID-19 OTIS/J&J VACCINE 2021-06-04 00:00:00 Completed [facility] SARS-COV-2 COVID-19 OTIS/J&J VACCINE 2021-06-04 00:00:00 Completed [facility] SARS-COV-2 COVID-19 OTIS/J&J VACCINE 2021-06-04 00:00:00 Completed [facility] SARS-COV-2 COVID-19 OTIS/J&J VACCINE 2021-06-04 00:00:00 Completed [facility] SARS-COV-2 COVID-19 OTIS/J&J VACCINE 2021-06-04 00:00:00 Completed [facility] SARS-COV-2 COVID-19 OTIS/J&J VACCINE 2021-06-04 00:00:00 Completed [facility] SARS-COV-2 COVID-19 OTIS/J&J VACCINE 2021-06-04 00:00:00 Completed [facility] SARS-COV-2 COVID-19 OTIS/J&J VACCINE 2021-06-04 00:00:00 Completed [facility] SARS-COV-2 COVID-19 OTIS/J&J VACCINE 2021-06-04 00:00:00 Completed [facility] SARS-COV-2 COVID-19 OTIS/J&J VACCINE 2021-06-04 00:00:00 Completed [facility] SARS-COV-2 COVID-19 OTIS/J&J VACCINE 2021-06-04 00:00:00 Completed [facility] SARS-COV-2 COVID-19 OTIS/J&J VACCINE 2021-06-04 00:00:00 Completed [facility] SARS-COV-2 COVID-19 OTIS/J&J VACCINE 2021-06-04 00:00:00 Completed [facility] SARS-COV-2 COVID-19 OTIS/J&J VACCINE 2021-06-04 00:00:00 Completed [facility] SARS-COV-2 COVID-19 OTIS/J&J VACCINE 2021-06-04 00:00:00 Completed [facility] SARS-COV-2 COVID-19 OTIS/J&J VACCINE 2021-06-04 00:00:00 Completed [facility] SARS-COV-2 COVID-19 OTIS/J&J VACCINE 2021-06-04 00:00:00 Completed [facility] SARS-COV-2 COVID-19 OTIS/J&J VACCINE 2021-06-04 00:00:00 Completed [facility] SARS-COV-2 COVID-19 OTIS/J&J VACCINE 2021-06-04 00:00:00 Completed [facility] SARS-COV-2 COVID-19 OTIS/J&J VACCINE 2021-06-04 00:00:00 Completed [facility] SARS-COV-2 COVID-19 OTIS/J&J VACCINE 2021-06-04 00:00:00 Completed [facility] SARS-COV-2 COVID-19 OTIS/J&J VACCINE 2021-06-04 00:00:00 Completed [facility] SARS-COV-2 COVID-19 OTIS/J&J VACCINE 2021-06-04 00:00:00 Completed [facility] SARS-COV-2 COVID-19 OTIS/J&J VACCINE 2021-06-04 00:00:00 Completed [facility] SARS-COV-2 COVID-19 OTIS/J&J VACCINE 2021-06-04 00:00:00 Completed [facility] SARS-COV-2 COVID-19 OTIS/J&J VACCINE 2021-06-04 00:00:00 Completed [facility] SARS-COV-2 COVID-19 OTIS/J&J VACCINE 2021-06-04 00:00:00 Completed [facility] SARS-COV-2 COVID-19 OTIS/J&J VACCINE 2021-06-04 00:00:00 Completed [facility] SARS-COV-2 COVID-19 OTIS/J&J VACCINE 2021-06-04 00:00:00 Completed [facility] SARS-COV-2 COVID-19 OTIS/J&J VACCINE 2021-06-04 00:00:00 Completed [facility] SARS-COV-2 COVID-19 OTIS/J&J VACCINE 2021-06-04 00:00:00 Completed [facility] SARS-COV-2 COVID-19 OTIS/J&J VACCINE 2021-06-04 00:00:00 Completed [facility] SARS-COV-2 COVID-19 OTIS/J&J VACCINE 2021-06-04 00:00:00 Completed [facility] SARS-COV-2 COVID-19 OTIS/J&J VACCINE 2021-06-04 00:00:00 Completed [facility] SARS-COV-2 COVID-19 OTIS/J&J VACCINE 2021-06-04 00:00:00 Completed [facility] SARS-COV-2 COVID-19 OTIS/J&J VACCINE 2021-06-04 00:00:00 Completed [facility] SARS-COV-2 COVID-19 OTIS/J&J VACCINE 2021-06-04 00:00:00 Completed [facility] SARS-COV-2 COVID-19 OTIS/J&J VACCINE 2021-06-04 00:00:00 Completed [facility] SARS-COV-2 COVID-19 OITS/J&J VACCINE 2021-06-04 00:00:00 Completed [facility] SARS-COV-2 COVID-19 OTIS/J&J VACCINE 2021-06-04 00:00:00 Completed SARS-COV-2 COVID-19 OTIS/J&J VACCINE 2021-06-04 00:00:00 Completed TDAP (ADACEL) VACCINE 2019-12-03 00:00:00 Completed [facility] TDAP (ADACEL) VACCINE 2019-12-03 00:00:00 Completed [facility] TDAP (ADACEL) VACCINE 2019-12-03 00:00:00 Completed [facility] TDAP (ADACEL) VACCINE 2019-12-03 00:00:00 Completed [facility] TDAP (ADACEL) VACCINE 2019-12-03 00:00:00 Completed [facility] TDAP (ADACEL) VACCINE 2019-12-03 00:00:00 Completed [facility] TDAP (ADACEL) VACCINE 2019-12-03 00:00:00 Completed [facility] TDAP (ADACEL) VACCINE 2019-12-03 00:00:00 Completed [facility] TDAP (ADACEL) VACCINE 2019-12-03 00:00:00 Completed [facility] TDAP (ADACEL) VACCINE 2019-12-03 00:00:00 Completed [facility] TDAP (ADACEL) VACCINE 2019-12-03 00:00:00 Completed [facility] TDAP (ADACEL) VACCINE 2019-12-03 00:00:00 Completed [facility] TDAP (ADACEL) VACCINE 2019-12-03 00:00:00 Completed [facility] TDAP (ADACEL) VACCINE 2019-12-03 00:00:00 Completed [facility] TDAP (ADACEL) VACCINE 2019-12-03 00:00:00 Completed [facility] TDAP (ADACEL) VACCINE 2019-12-03 00:00:00 Completed [facility] TDAP (ADACEL) VACCINE 2019-12-03 00:00:00 Completed [facility] TDAP (ADACEL) VACCINE 2019-12-03 00:00:00 Completed [facility] TDAP (ADACEL) VACCINE 2019-12-03 00:00:00 Completed [facility] TDAP (ADACEL) VACCINE 2019-12-03 00:00:00 Completed [facility] TDAP (ADACEL) VACCINE 2019-12-03 00:00:00 Completed [facility] TDAP (ADACEL) VACCINE 2019-12-03 00:00:00 Completed [facility] TDAP (ADACEL) VACCINE 2019-12-03 00:00:00 Completed [facility] TDAP (ADACEL) VACCINE 2019-12-03 00:00:00 Completed [facility] TDAP (ADACEL) VACCINE 2019-12-03 00:00:00 Completed [facility] TDAP (ADACEL) VACCINE 2019-12-03 00:00:00 Completed [facility] TDAP (ADACEL) VACCINE 2019-12-03 00:00:00 Completed [facility] TDAP (ADACEL) VACCINE 2019-12-03 00:00:00 Completed [facility] TDAP (ADACEL) VACCINE 2019-12-03 00:00:00 Completed [facility] TDAP (ADACEL) VACCINE 2019-12-03 00:00:00 Completed [facility] TDAP (ADACEL) VACCINE 2019-12-03 00:00:00 Completed [facility] TDAP (ADACEL) VACCINE 2019-12-03 00:00:00 Completed [facility] TDAP (ADACEL) VACCINE 2019-12-03 00:00:00 Completed [facility] TDAP (ADACEL) VACCINE 2019-12-03 00:00:00 Completed [facility] TDAP (ADACEL) VACCINE 2019-12-03 00:00:00 Completed [facility] TDAP (ADACEL) VACCINE 2019-12-03 00:00:00 Completed [facility] TDAP (ADACEL) VACCINE 2019-12-03 00:00:00 Completed [facility] TDAP (ADACEL) VACCINE 2019-12-03 00:00:00 Completed [facility] TDAP (ADACEL) VACCINE 2019-12-03 00:00:00 Completed [facility] TDAP (ADACEL) VACCINE 2019-12-03 00:00:00 Completed [facility] TDAP (ADACEL) VACCINE 2019-12-03 00:00:00 Completed [facility] TDAP (ADACEL) VACCINE 2019-12-03 00:00:00 Completed [facility] TDAP (ADACEL) VACCINE 2019-12-03 00:00:00 Completed [facility] TDAP (ADACEL) VACCINE 2019-12-03 00:00:00 Completed [facility] TDAP (ADACEL) VACCINE 2019-12-03 00:00:00 Completed [facility] TDAP (ADACEL) VACCINE 2019-12-03 00:00:00 Completed [facility] TDAP (ADACEL) VACCINE 2019-12-03 00:00:00 Completed [facility] TDAP (ADACEL) VACCINE 2019-12-03 00:00:00 Completed [facility] TDAP (ADACEL) VACCINE 2019-12-03 00:00:00 Completed [facility] TDAP (ADACEL) VACCINE 2019-12-03 00:00:00 Completed [facility] TDAP (ADACEL) VACCINE 2019-12-03 00:00:00 Completed [facility] TDAP (ADACEL) VACCINE 2019-12-03 00:00:00 Completed [facility] TDAP (ADACEL) VACCINE 2019-12-03 00:00:00 Completed [facility] TDAP (ADACEL) VACCINE 2019-12-03 00:00:00 Completed [facility] TDAP (ADACEL) VACCINE 2019-12-03 00:00:00 Completed [facility] TDAP (ADACEL) VACCINE 2019-12-03 00:00:00 Completed [facility] TDAP (ADACEL) VACCINE 2019-12-03 00:00:00 Completed [facility] Adacel (Tdap) Adacel (Tdap) 2019-08-29 13:16:00 Completed [facility] Adacel (Tdap) Adacel (Tdap) 2019-08-29 13:16:00 Completed [facility] TDAP 2019-08-29 00:00:00 Completed [facility] TDAP 2019-08-29 00:00:00 Completed [facility] TDAP 2019-08-29 00:00:00 Completed [facility] TDAP 2019-08-29 00:00:00 Completed [facility] TDAP 2019-08-29 00:00:00 Completed [facility] TDAP 2019-08-29 00:00:00 Completed [facility] TDAP 2019-08-29 00:00:00 Completed [facility] TDAP 2019-08-29 00:00:00 Completed [facility] TDAP 2019-08-29 00:00:00 Completed [facility] TDAP 2019-08-29 00:00:00 Completed [facility] TDAP 2019-08-29 00:00:00 Completed [facility] TDAP 2019-08-29 00:00:00 Completed [facility] TDAP 2019-08-29 00:00:00 Completed [facility] TDAP 2019-08-29 00:00:00 Completed [facility] TDAP 2019-08-29 00:00:00 Completed [facility] TDAP 2019-08-29 00:00:00 Completed [facility] TDAP 2019-08-29 00:00:00 Completed [facility] TDAP 2019-08-29 00:00:00 Completed [facility] TDAP 2019-08-29 00:00:00 Completed [facility] TDAP 2019-08-29 00:00:00 Completed [facility] TDAP 2019-08-29 00:00:00 Completed [facility] TDAP 2019-08-29 00:00:00 Completed [facility] TDAP 2019-08-29 00:00:00 Completed [facility] TDAP 2019-08-29 00:00:00 Completed [facility] TDAP 2019-08-29 00:00:00 Completed [facility] TDAP 2019-08-29 00:00:00 Completed [facility] TDAP 2019-08-29 00:00:00 Completed [facility] TDAP 2019-08-29 00:00:00 Completed [facility] TDAP 2019-08-29 00:00:00 Completed [facility] TDAP 2019-08-29 00:00:00 Completed [facility] TDAP 2019-08-29 00:00:00 Completed [facility] TDAP 2019-08-29 00:00:00 Completed [facility] TDAP 2019-08-29 00:00:00 Completed [facility] TDAP 2019-08-29 00:00:00 Completed [facility] TDAP 2019-08-29 00:00:00 Completed [facility] TDAP 2019-08-29 00:00:00 Completed [facility] TDAP 2019-08-29 00:00:00 Completed TDAP 2019-08-29 00:00:00 Completed Influenza Virus Vaccine Quad .5 mL IM 6+ MO 2019-08-02 00:00:00 Completed [facility] Influenza Virus Vaccine Quad .5 mL IM 6+ MO 2019-08-02 00:00:00 Completed [facility] Influenza Virus Vaccine Quad .5 mL IM 6+ MO 2019-08-02 00:00:00 Completed [facility] Influenza Virus Vaccine Quad .5 mL IM 6+ MO 2019-08-02 00:00:00 Completed [facility] Influenza Virus Vaccine Quad .5 mL IM 6+ MO 2019-08-02 00:00:00 Completed [facility] Influenza Virus Vaccine Quad .5 mL IM 6+ MO 2019-08-02 00:00:00 Completed [facility] Influenza Virus Vaccine Quad .5 mL IM 6+ MO 2019-08-02 00:00:00 Completed [facility] Influenza Virus Vaccine Quad .5 mL IM 6+ MO 2019-08-02 00:00:00 Completed [facility] Influenza Virus Vaccine Quad .5 mL IM 6+ MO 2019-08-02 00:00:00 Completed [facility] Influenza Virus Vaccine Quad .5 mL IM 6+ MO 2019-08-02 00:00:00 Completed [facility] Influenza Virus Vaccine Quad .5 mL IM 6+ MO 2019-08-02 00:00:00 Completed [facility] Influenza Virus Vaccine Quad .5 mL IM 6+ MO 2019-08-02 00:00:00 Completed [facility] Influenza Virus Vaccine Quad .5 mL IM 6+ MO 2019-08-02 00:00:00 Completed [facility] Influenza Virus Vaccine Quad .5 mL IM 6+ MO 2019-08-02 00:00:00 Completed [facility] Influenza Virus Vaccine Quad .5 mL IM 6+ MO 2019-08-02 00:00:00 Completed [facility] Influenza Virus Vaccine Quad .5 mL IM 6+ MO 2019-08-02 00:00:00 Completed [facility] Influenza Virus Vaccine Quad .5 mL IM 6+ MO 2019-08-02 00:00:00 Completed [facility] Influenza Virus Vaccine Quad .5 mL IM 6+ MO 2019-08-02 00:00:00 Completed [facility] Influenza Virus Vaccine Quad .5 mL IM 6+ MO 2019-08-02 00:00:00 Completed [facility] Influenza Virus Vaccine Quad .5 mL IM 6+ MO 2019-08-02 00:00:00 Completed [facility] Influenza Virus Vaccine Quad .5 mL IM 6+ MO 2019-08-02 00:00:00 Completed [facility] Influenza Virus Vaccine Quad .5 mL IM 6+ MO 2019-08-02 00:00:00 Completed [facility] Influenza Virus Vaccine Quad .5 mL IM 6+ MO 2019-08-02 00:00:00 Completed [facility] Influenza Virus Vaccine Quad .5 mL IM 6+ MO 2019-08-02 00:00:00 Completed [facility] Influenza Virus Vaccine Quad .5 mL IM 6+ MO 2019-08-02 00:00:00 Completed [facility] Influenza Virus Vaccine Quad .5 mL IM 6+ MO 2019-08-02 00:00:00 Completed [facility] Influenza Virus Vaccine Quad .5 mL IM 6+ MO 2019-08-02 00:00:00 Completed [facility] Influenza Virus Vaccine Quad .5 mL IM 6+ MO 2019-08-02 00:00:00 Completed [facility] Influenza Virus Vaccine Quad .5 mL IM 6+ MO 2019-08-02 00:00:00 Completed [facility] Influenza Virus Vaccine Quad .5 mL IM 6+ MO 2019-08-02 00:00:00 Completed [facility] Influenza Virus Vaccine Quad .5 mL IM 6+ MO 2019-08-02 00:00:00 Completed [facility] Influenza Virus Vaccine Quad .5 mL IM 6+ MO 2019-08-02 00:00:00 Completed [facility] Influenza Virus Vaccine Quad .5 mL IM 6+ MO 2019-08-02 00:00:00 Completed [facility] Influenza Virus Vaccine Quad .5 mL IM 6+ MO 2019-08-02 00:00:00 Completed [facility] Influenza Virus Vaccine Quad .5 mL IM 6+ MO 2019-08-02 00:00:00 Completed [facility] Influenza Virus Vaccine Quad .5 mL IM 6+ MO 2019-08-02 00:00:00 Completed [facility] Influenza Virus Vaccine Quad .5 mL IM 6+ MO 2019-08-02 00:00:00 Completed [facility] Influenza Virus Vaccine Quad .5 mL IM 6+ MO 2019-08-02 00:00:00 Completed [facility] Influenza Virus Vaccine Quad .5 mL IM 6+ MO 2019-08-02 00:00:00 Completed [facility] Influenza Virus Vaccine Quad .5 mL IM 6+ MO 2019-08-02 00:00:00 Completed [facility] Influenza Virus Vaccine Quad .5 mL IM 6+ MO 2019-08-02 00:00:00 Completed [facility] Influenza Virus Vaccine Quad .5 mL IM 6+ MO 2019-08-02 00:00:00 Completed [facility] Influenza Virus Vaccine Quad .5 mL IM 6+ MO 2019-08-02 00:00:00 Completed [facility] Influenza Virus Vaccine Quad .5 mL IM 6+ MO 2019-08-02 00:00:00 Completed [facility] Influenza Virus Vaccine Quad .5 mL IM 6+ MO 2019-08-02 00:00:00 Completed [facility] Influenza Virus Vaccine Quad .5 mL IM 6+ MO 2019-08-02 00:00:00 Completed [facility] Influenza Virus Vaccine Quad .5 mL IM 6+ MO 2019-08-02 00:00:00 Completed [facility] Influenza Virus Vaccine Quad .5 mL IM 6+ MO 2019-08-02 00:00:00 Completed [facility] Influenza Virus Vaccine Quad .5 mL IM 6+ MO 2019-08-02 00:00:00 Completed [facility] Influenza Virus Vaccine Quad .5 mL IM 6+ MO 2019-08-02 00:00:00 Completed [facility] Influenza Virus Vaccine Quad .5 mL IM 6+ MO 2019-08-02 00:00:00 Completed [facility] Influenza Virus Vaccine Quad .5 mL IM 6+ MO 2019-08-02 00:00:00 Completed [facility] Influenza Virus Vaccine Quad .5 mL IM 6+ MO 2019-08-02 00:00:00 Completed [facility] Influenza Virus Vaccine Quad .5 mL IM 6+ MO 2019-08-02 00:00:00 Completed [facility] Influenza Virus Vaccine Quad .5 mL IM 6+ MO 2019-08-02 00:00:00 Completed [facility] Influenza Virus Vaccine Quad .5 mL IM 6+ MO (FLUZONE/FLULAVAL/F LUARIX) 2019-08-02 00:00:00 Completed [facility] Influenza Virus Vaccine Quad .5 mL IM 6+ MO (FLUZONE/FLULAVAL/F LUARIX) 2019-08-02 00:00:00 Completed [facility] Afluria single dose Afluria single dose 2019-07-29 13:16:00 Completed [facility] Afluria single dose Afluria single dose 2019-07-29 13:16:00 Completed [facility] Afluria single dose Afluria single dose Unknown Completed [facility] Adacel (Tdap) Adacel (Tdap) Unknown Completed [facility] Influenza Virus Vaccine Quad .5 mL IM 6+ MO (FLUZONE/FLULAVAL/F LUARIX) Unknown Completed [facility] TDAP (ADACEL) VACCINE Unknown Completed [facility] SARS-COV-2 COVID-19 OTIS/J&J VACCINE Unknown Completed [facility] Influenza Virus Vaccine Quad IM, Preserv and ABX Free 6 MO-64 YRS (FLUCELVAX) Unknown Completed [facility] Influenza Virus Vaccine Unknown Completed [facility] Influenza Virus Vaccine Quad .5 mL IM 6+ MO (FLUZONE/FLULAVAL/F LUARIX) Unknown Completed [facility] TDAP (ADACEL) VACCINE Unknown Completed [facility] SARS-COV-2 COVID-19 OTIS/J&J VACCINE Unknown Completed [facility] Influenza Virus Vaccine Unknown Completed [facility] Influenza Virus Vaccine Quad .5 mL IM 6+ MO (FLUZONE/FLULAVAL/F LUARIX) Unknown Completed [facility] TDAP (ADACEL) VACCINE Unknown Completed [facility] SARS-COV-2 COVID-19 OTIS/J&J VACCINE Unknown Completed [facility] Influenza Virus Vaccine Unknown Completed [facility] Influenza Virus Vaccine Quad .5 mL IM 6+ MO (FLUZONE/FLULAVAL/F LUARIX) Unknown Completed [facility] TDAP (ADACEL) VACCINE Unknown Completed [facility] SARS-COV-2 COVID-19 OTIS/J&J VACCINE Unknown Completed [facility] Influenza Virus Vaccine Unknown Completed [facility] Influenza Virus Vaccine Quad .5 mL IM 6+ MO (FLUZONE/FLULAVAL/F LUARIX) Unknown Completed [facility] TDAP (ADACEL) VACCINE Unknown Completed [facility] SARS-COV-2 COVID-19 OTIS/J&J VACCINE Unknown Completed [facility] Influenza Virus Vaccine Unknown Completed [facility] Influenza Virus Vaccine Quad .5 mL IM 6+ MO (FLUZONE/FLULAVAL/F LUARIX) Unknown Completed [facility] TDAP (ADACEL) VACCINE Unknown Completed [facility] SARS-COV-2 COVID-19 OTIS/J&J VACCINE Unknown Completed [facility] Influenza Virus Vaccine Unknown Completed [facility] Influenza Virus Vaccine Quad .5 mL IM 6+ MO (FLUZONE/FLULAVAL/F LUARIX) Unknown Completed [facility] TDAP (ADACEL) VACCINE Unknown Completed [facility] SARS-COV-2 COVID-19 OTIS/J&J VACCINE Unknown [facility] Influenza Virus Vaccine Unknown Completed [facility] Influenza Virus Vaccine Quad .5 mL IM 6+ MO (FLUZONE/FLULAVAL/F LUARIX) Unknown Completed [facility] TDAP (ADACEL) VACCINE Unknown Completed [facility] SARS-COV-2 COVID-19 OTIS/J&J VACCINE Unknown Completed [facility] Influenza Virus Vaccine Unknown Completed [facility] Influenza Virus Vaccine Quad .5 mL IM 6+ MO (FLUZONE/FLULAVAL/F LUARIX) Unknown Completed [facility] TDAP (ADACEL) VACCINE Unknown Completed [facility] SARS-COV-2 COVID-19 OTIS/J&J VACCINE Unknown Completed [facility] Influenza Virus Vaccine Unknown Completed [facility] Influenza Virus Vaccine Quad .5 mL IM 6+ MO (FLUZONE/FLULAVAL/F LUARIX) Unknown Completed [facility] TDAP (ADACEL) VACCINE Unknown Completed [facility] SARS-COV-2 COVID-19 OTIS/J&J VACCINE Unknown Completed [facility] Influenza Virus Vaccine Quad .5 mL IM 6+ MO (FLUZONE/FLULAVAL/F LUARIX) Unknown Completed [facility] TDAP (ADACEL) VACCINE Unknown Completed [facility] SARS-COV-2 COVID-19 OTIS/J&J VACCINE Unknown Completed [facility] Influenza Virus Vaccine Quad .5 mL IM 6+ MO (FLUZONE/FLULAVAL/F LUARIX) Unknown Completed [facility] TDAP (ADACEL) VACCINE Unknown Completed [facility] Influenza Virus Vaccine Quad .5 mL IM 6+ MO (FLUZONE/FLULAVAL/F LUARIX) Unknown Completed [facility] TDAP (ADACEL) VACCINE Unknown Completed [facility] Influenza Virus Vaccine Quad .5 mL IM 6+ MO (FLUZONE/FLULAVAL/F LUARIX) Unknown Completed [facility] TDAP (ADACEL) VACCINE Unknown Completed [facility] Influenza Virus Vaccine Quad .5 mL IM 6+ MO (FLUZONE/FLULAVAL/F LUARIX) Unknown Completed [facility] TDAP (ADACEL) VACCINE Unknown Completed [facility] Influenza Virus Vaccine Quad .5 mL IM 6+ MO (FLUZONE/FLULAVAL/F LUARIX) Unknown Completed [facility] TDAP (ADACEL) VACCINE Unknown Completed [facility] Influenza Virus Vaccine Quad .5 mL IM 6+ MO (FLUZONE/FLULAVAL/F LUARIX) Unknown Completed [facility] TDAP (ADACEL) VACCINE Unknown Completed [facility] Influenza Virus Vaccine Quad .5 mL IM 6+ MO (FLUZONE/FLULAVAL/F LUARIX) Unknown Completed [facility] TDAP (ADACEL) VACCINE Unknown Completed [facility] Influenza Virus Vaccine Quad .5 mL IM 6+ MO (FLUZONE/FLULAVAL/F LUARIX) Unknown Completed [facility] TDAP (ADACEL) VACCINE Unknown Completed [facility] Influenza Virus Vaccine Quad .5 mL IM 6+ MO (FLUZONE/FLULAVAL/F LUARIX) Unknown Completed [facility] TDAP (ADACEL) VACCINE Unknown Completed [facility] Influenza Virus Vaccine Quad .5 mL IM 6+ MO (FLUZONE/FLULAVAL/F LUARIX) Unknown Completed [facility] TDAP (ADACEL) VACCINE Unknown Completed [facility] SARS-COV-2 COVID-19 OTIS/J&J VACCINE Unknown Completed [facility] Influenza Virus Vaccine Quad IM, Preserv and ABX Free 6 MO-64 YRS (FLUCELVAX) Unknown Completed [facility] Influenza Virus Vaccine Unknown Completed [facility] Influenza Virus Vaccine Quad .5 mL IM 6+ MO (FLUZONE/FLULAVAL/F LUARIX) Unknown Completed [facility] TDAP (ADACEL) VACCINE Unknown Completed [facility] SARS-COV-2 COVID-19 OTIS/J&J VACCINE Unknown Completed [facility] Influenza Virus Vaccine Quad IM, Preserv and ABX Free 6 MO-64 YRS (FLUCELVAX) Unknown Completed [facility] Influenza Virus Vaccine Unknown Completed [facility] Influenza Virus Vaccine Quad .5 mL IM 6+ MO (FLUZONE/FLULAVAL/F LUARIX) Unknown Completed [facility] TDAP (ADACEL) VACCINE Unknown Completed [facility] SARS-COV-2 COVID-19 OTIS/J&J VACCINE Unknown Completed [facility] Influenza Virus Vaccine Quad IM, Preserv and ABX Free 6 MO-64 YRS (FLUCELVAX) Unknown Completed [facility] Influenza Virus Vaccine Unknown Completed [facility] Influenza Virus Vaccine Quad .5 mL IM 6+ MO (FLUZONE/FLULAVAL/F LUARIX) Unknown Completed [facility] TDAP (ADACEL) VACCINE Unknown Completed [facility] SARS-COV-2 COVID-19 OTIS/J&J VACCINE Unknown Completed [facility] Influenza Virus Vaccine Quad IM, Preserv and ABX Free 6 MO-64 YRS (FLUCELVAX) Unknown Completed [facility] Influenza Virus Vaccine Unknown Completed [facility] Influenza Virus Vaccine Quad .5 mL IM 6+ MO (FLUZONE/FLULAVAL/F LUARIX) Unknown Completed [facility] TDAP (ADACEL) VACCINE Unknown Completed [facility] SARS-COV-2 COVID-19 OTIS/J&J VACCINE Unknown Completed [facility] Influenza Virus Vaccine Quad IM, Preserv and ABX Free 6 MO-64 YRS (FLUCELVAX) Unknown Completed [facility] Influenza Virus Vaccine Unknown Completed [facility] Influenza Virus Vaccine Quad .5 mL IM 6+ MO (FLUZONE/FLULAVAL/F LUARIX) Unknown Completed [facility] TDAP (ADACEL) VACCINE Unknown Completed [facility] SARS-COV-2 COVID-19 OTIS/J&J VACCINE Unknown Completed [facility] Influenza Virus Vaccine Quad IM, Preserv and ABX Free 6 MO-64 YRS (FLUCELVAX) Unknown Completed [facility] Influenza Virus Vaccine Unknown Completed [facility] Influenza Virus Vaccine Quad .5 mL IM 6+ MO (FLUZONE/FLULAVAL/F LUARIX) Unknown Completed [facility] TDAP (ADACEL) VACCINE Unknown Completed [facility] SARS-COV-2 COVID-19 OTIS/J&J VACCINE Unknown Completed [facility] Influenza Virus Vaccine Quad IM, Preserv and ABX Free 6 MO-64 YRS (FLUCELVAX) Unknown Completed [facility] Influenza Virus Vaccine Unknown Completed [facility] Influenza Virus Vaccine Quad .5 mL IM 6+ MO (FLUZONE/FLULAVAL/F LUARIX) Unknown Completed [facility] TDAP Unknown Completed [facility] SARS-COV-2 COVID-19 OTIS/J&J VACCINE Unknown Completed [facility] Influenza Virus Vaccine Quad IM, Preserv and ABX Free 6 MO-64 YRS (FLUCELVAX) Unknown Completed [facility] Influenza Virus Vaccine Unknown Completed [facility] Influenza Virus Vaccine Quad .5 mL IM 6+ MO (FLUZONE/FLULAVAL/F LUARIX) Unknown Completed [facility] TDAP Unknown Completed [facility] SARS-COV-2 COVID-19 OTIS/J&J VACCINE Unknown Completed [facility] Influenza Virus Vaccine Quad IM, Preserv and ABX Free 6 MO-64 YRS (FLUCELVAX) Unknown Completed [facility] Influenza Virus Vaccine Unknown Completed [facility] Influenza Virus Vaccine Quad .5 mL IM 6+ MO (FLUZONE/FLULAVAL/F LUARIX) Unknown Completed [facility] TDAP Unknown Completed [facility] SARS-COV-2 COVID-19 OTIS/J&J VACCINE Unknown Completed [facility] Influenza Virus Vaccine Quad IM, Preserv and ABX Free 6 MO-64 YRS (FLUCELVAX) Unknown Completed [facility] Influenza Virus Vaccine Unknown Completed [facility] Influenza, Injectable, Mdck, Quadrivalent With Preservative Unknown [...] Value Comments S ource Systolic blood pressure 2024-12-12 20:38:00 116 mm[Hg] Anat Seybo ld - External Diastolic blood pressure 2024-12-12 20:38:00 81 mm[Hg] Anat Seybo ld - External Heart rate 2024-12-12 20:38:00 81 /min Kelse y Seybold - External Body temperature 2024-12-12 20:38:00 36.89 Silvina Anat Seybold - External Body height 2024-12-12 20:38:00 165.1 cm Brea ey Seybold - External Body weight 2024-12-12 20:38:00 127.098 kg Brea ey Seybold - External BMI 2024-12-12 20:38:00 46.63 kg/m2 Brea ey Seybold - External Systolic blood pressure 2024-12-07 16:38:00 122 mm[Hg] Anat Seybo ld - External Diastolic blood pressure 2024-12-07 16:38:00 76 mm[Hg] Anat Seybo ld - External Heart rate 2024-12-07 16:38:00 79 /min Kelse y Seybold - External Body height 2024-12-07 16:38:00 165.1 cm Brea ey Seybold - External Body weight 2024-12-07 16:38:00 127.642 kg Brea ey Seybold - External BMI 2024-12-07 16:38:00 46.83 kg/m2 Brea ey Seybold - External Systolic blood pressure 2024-11-26 22:04:00 110 mm[Hg] Anat Seybo ld - External Diastolic blood pressure 2024-11-26 22:04:00 76 mm[Hg] Anat Seybo ld - External Heart rate 2024-11-26 22:04:00 109 /min Kelse y Seybold - External Body temperature 2024-11-26 22:04:00 36.5 Silvina Anat Seybold - External Respiratory rate 2024-11-26 22:04:00 15 /min Anat Seybold - External Body height 2024-11-26 22:04:00 165.1 cm Brea ey Seybold - External Body weight 2024-11-26 22:04:00 127.007 kg Brea ey Seybold - External BMI 2024-11-26 22:04:00 46.59 kg/m2 Brea ey Seybold - External Oxygen saturation in Arterial blood by Pulse oximetry 2024-11-26 22:04:00 98 /min Anat Salcedoo ld - External Systolic blood pressure 2024-10-25 19:03:06 118 mm[Hg] [facility] acute hospital Diastolic blood pressure 2024-10-25 19:03:06 75 mm[Hg] General acute hospital Heart rate 2024-10-25 19:03:06 82 /min [facility] Body temperature 2024-10-25 19:03:06 37.06 Silvina [facility] Respiratory rate 2024-10-25 19:03:06 19 /min [facility] Oxygen saturation in Arterial blood by Pulse oximetry 2024-10-25 19:03:06 99 /min [facility] Body height 2024-10-25 17:05:00 165.1 cm [facility] Body weight 2024-10-25 17:05:00 120.203 kg [facility] BMI 2024-10-25 17:05:00 44.10 kg/m2 [facility] Systolic blood pressure 2024-08-30 18:42:00 102 mm[Hg] Anat Maciasybo ld - External Diastolic blood pressure 2024-08-30 18:42:00 60 mm[Hg] Anat ybo ld - External Heart rate 2024-08-30 18:42:00 81 /min Kelse y Seybold - External Body temperature 2024-08-30 18:42:00 36.89 Silvina Anta Seybold - External Respiratory rate 2024-08-30 18:42:00 18 /min Anat Seybold - External Body height 2024-08-30 18:42:00 165.1 cm Brea ey Seybold - External Body weight 2024-08-30 18:42:00 125.193 kg Brea ey Seybold - External BMI 2024-08-30 18:42:00 45.93 kg/m2 Brea ey Seybold - External Oxygen saturation in Arterial blood by Pulse oximetry 2024-08-30 18:42:00 98 /min Anat Hitchcock ld - External Systolic blood pressure 2024-07-10 15:11:00 108 mm[Hg] Anat Hitchcock ld - External Diastolic blood pressure 2024-07-10 15:11:00 62 mm[Hg] Anat Salcedoo ld - External Heart rate 2024-07-10 15:11:00 86 /min Collins gaona Seybshanae - External Body temperature 2024-07-10 15:11:00 36.44 Silvina Anat Maciasybold - External Respiratory rate 2024-07-10 15:11:00 16 /min Anat Salcedoold - External Body height 2024-07-10 15:11:00 165.1 cm Brea de luna Seybshanae - External Body weight 2024-07-10 15:11:00 120.203 kg Brea de luna Seybold - External BMI 2024-07-10 15:11:00 44.10 kg/m2 Brea de luna Seybold - External Systolic blood pressure 2024-07-10 00:58:00 109 mm[Hg] [facility] acute hospital Diastolic blood pressure 2024-07-10 00:58:00 68 mm[Hg] [facility] acute hospital Heart rate 2024-07-10 00:58:00 98 /min [facility] Body temperature 2024-07-10 00:58:00 37.11 Silvina [facility] Respiratory rate 2024-07-10 00:58:00 15 /min [facility] Body height 2024-07-10 00:58:00 165.1 cm [facility] Body weight 2024-07-10 00:58:00 118.525 kg [facility] BMI 2024-07-10 00:58:00 43.48 kg/m2 [facility] Oxygen saturation in Arterial blood by Pulse oximetry 2024-07-10 00:58:00 98 /min [facility] Systolic blood pressure 2024-07-04 02:19:00 115 mm[Hg] [facility] acute hospital Diastolic blood pressure 2024-07-04 02:19:00 72 mm[Hg] [facility] acute hospital Heart rate 2024-07-04 02:19:00 73 /min [facility] Body temperature 2024-07-04 02:19:00 36.89 Silvina [facility] Respiratory rate 2024-07-04 02:19:00 19 /min [facility] Oxygen saturation in Arterial blood by Pulse oximetry 2024-07-04 02:19:00 97 /min [facility] Body height 2024-07-03 22:28:00 165.1 cm [facility] Body weight 2024-07-03 22:28:00 111.131 kg [facility] BMI 2024-07-03 22:28:00 40.77 kg/m2 [facility] Systolic blood pressure 2024-06-29 01:25:00 113 mm[Hg] [facility] acute hospital Diastolic blood pressure 2024-06-29 01:25:00 77 mm[Hg] [facility] acute hospital Heart rate 2024-06-29 01:25:00 86 /min [facility] Body temperature 2024-06-29 01:25:00 36.89 Silvina [facility] Respiratory rate 2024-06-29 01:25:00 18 /min [facility] Body weight 2024-06-29 01:25:00 120.203 kg [facility] BMI 2024-06-29 01:25:00 44.10 kg/m2 [facility] Oxygen saturation in Arterial blood by Pulse oximetry 2024-06-29 01:25:00 100 /min [facility] Systolic blood pressure 2024-06-27 14:40:00 102 mm[Hg] Anat Seybo ld - External Diastolic blood pressure 2024-06-27 14:40:00 60 mm[Hg] Anat Seybo ld - External Heart rate 2024-06-27 14:40:00 97 /min Collins gaona Seybold - External Body temperature 2024-06-27 14:40:00 36.44 Silvina Anat Seybold - External Respiratory rate 2024-06-27 14:40:00 15 /min Anat Maciasybold - External Body height 2024-06-27 14:40:00 165.1 cm Brea de luna Seybold - External Body weight 2024-06-27 14:40:00 120.203 kg Brea ey Seybold - External BMI 2024-06-27 14:40:00 44.10 kg/m2 Brea ey Seybold - External Systolic blood pressure 2024-06-26 01:19:00 126 mm[Hg] [facility] acute hospital Diastolic blood pressure 2024-06-26 01:19:00 62 mm[Hg] [facility] acute hospital Heart rate 2024-06-26 01:19:00 98 /min [facility] 2024-06-26 01:19:00 37.5 Silvina [facility] Respiratory rate 2024-06-26 01:19:00 22 /min [facility] Body height 2024-06-26 01:19:00 165.1 cm [facility] Body weight 2024-06-26 01:19:00 119.75 kg [facility] BMI 2024-06-26 01:19:00 43.93 kg/m2 [facility] Oxygen saturation in Arterial blood by Pulse oximetry 2024-06-26 01:19:00 100 /min [facility] Systolic blood pressure 2024-06-06 19:54:00 104 mm[Hg] Anat Seybo ld - External Diastolic blood pressure 2024-06-06 19:54:00 71 mm[Hg] Anat Seybo ld - External Heart rate 2024-06-06 19:54:00 82 /min Kelse y Seybold - External Respiratory rate 2024-06-06 19:54:00 16 /min Anat Seybold - External Body height 2024-06-06 19:54:00 165.1 cm Brea ey Seybold - External Body weight 2024-06-06 19:54:00 119.75 kg Brea ey Seybold - External BMI 2024-06-06 19:54:00 43.93 kg/m2 Brea ey Seybold - External Systolic blood pressure 2024-05-22 20:07:00 100 mm[Hg] Anat Seybo ld - External Diastolic blood pressure 2024-05-22 20:07:00 60 mm[Hg] Anat Seybo ld - External Heart rate 2024-05-22 20:07:00 97 /min Collins gaona Seybold - External Body temperature 2024-05-22 20:07:00 36.67 Silvina Anat Seybold - External Respiratory rate 2024-05-22 20:07:00 18 /min Anat Salcedoold - External Body height 2024-05-22 20:07:00 165.1 cm Brea de luna Seybold - External Body weight 2024-05-22 20:07:00 120.203 kg Brea de luna Seybold - External BMI 2024-05-22 20:07:00 44.10 kg/m2 Brea de luna Seybold - External Systolic blood pressure 2024-05-13 07:13:00 118 mm[Hg] [facility] acute hospital Diastolic blood pressure 2024-05-13 07:13:00 86 mm[Hg] General acute hospital Heart rate 2024-05-13 07:13:00 83 /min [facility] Body temperature 2024-05-13 07:13:00 36.72 Silvina [facility] Respiratory rate 2024-05-13 07:13:00 18 /min [facility] Oxygen saturation in Arterial blood by Pulse oximetry 2024-05-13 07:13:00 100 /min [facility] Body height 2024-05-13 05:03:00 165.1 cm [facility] Body weight 2024-05-13 05:03:00 114.76 kg [facility] BMI 2024-05-13 05:03:00 42.10 kg/m2 [facility] Systolic blood pressure 2023-12-01 06:06:00 128 mm[Hg] [facility] acute hospital Diastolic blood pressure 2023-12-01 06:06:00 84 mm[Hg] General acute hospital Heart rate 2023-12-01 06:06:00 88 /min [facility] Body temperature 2023-12-01 06:06:00 36.89 Silvina [facility] Respiratory rate 2023-12-01 06:06:00 16 /min [facility] Oxygen saturation in Arterial blood by Pulse oximetry 2023-12-01 06:06:00 100 /min [facility] acute [facility] Body height 2023-12-01 03:03:00 165.1 cm [facility] Body weight 2023-12-01 03:03:00 114.76 kg [facility] BMI 2023-12-01 03:03:00 42.10 kg/m2 [facility] Systolic blood pressure 2023-10-14 05:45:00 128 mm[Hg] [facility] acute hospital Diastolic blood pressure 2023-10-14 05:45:00 72 mm[Hg] [facility] acute hospital Heart rate 2023-10-14 05:45:00 77 /min [facility] Body temperature 2023-10-14 05:45:00 36.89 Silvina [facility] Respiratory rate 2023-10-14 05:45:00 16 /min [facility] Oxygen saturation in Arterial blood by Pulse oximetry 2023-10-14 05:45:00 100 /min [facility] Body height 2023-10-14 03:39:00 165.1 cm [facility] Body weight 2023-10-14 03:39:00 114.76 kg [facility] BMI 2023-10-14 03:39:00 42.10 kg/m2 [facility] Systolic blood pressure 2023-09-28 01:41:00 129 mm[Hg] [facility] acute hospital Diastolic blood pressure 2023-09-28 01:41:00 82 mm[Hg] [facility] acute hospital Heart rate 2023-09-28 01:41:00 76 /min [facility] Body temperature 2023-09-28 01:41:00 37.39 Silvina [facility] Respiratory rate 2023-09-28 01:41:00 17 /min [facility] Body weight 2023-09-28 01:41:00 114.76 kg [facility] BMI 2023-09-28 01:41:00 49.41 kg/m2 [facility] Oxygen saturation in Arterial blood by Pulse oximetry 2023-09-28 01:41:00 99 /min [facility] Systolic blood pressure 2023-09-04 06:00:00 124 mm[Hg] [facility] acute hospital Diastolic blood pressure 2023-09-04 06:00:00 71 mm[Hg] General acute hospital Heart rate 2023-09-04 06:00:00 96 /min [facility] Respiratory rate 2023-09-04 06:00:00 20 /min [facility] Oxygen saturation in Arterial blood by Pulse oximetry 2023-09-04 06:00:00 96 /min [facility] Body temperature 2023-09-04 03:04:00 37.22 Silvina [facility] Body height 2023-09-04 03:04:00 152.4 cm [facility] Body weight 2023-09-04 03:04:00 108.863 kg [facility] BMI 2023-09-04 03:04:00 46.87 kg/m2 [facility] Systolic blood pressure 2023-08-29 18:00:42 118 mm[Hg] [facility] acute hospital Diastolic blood pressure 2023-08-29 18:00:42 76 mm[Hg] General acute hospital Heart rate 2023-08-29 18:00:42 101 /min [facility] Body temperature 2023-08-29 18:00:42 36.78 Silvina [facility] Oxygen saturation in Arterial blood by Pulse oximetry 2023-08-29 18:00:42 96 /min [facility] acute hospital Respiratory rate 2023-08-29 16:20:00 18 /min [facility] Body height 2023-08-29 16:20:00 165.1 cm [facility] Body weight 2023-08-29 16:20:00 108.863 kg [facility] BMI 2023-08-29 16:20:00 39.94 kg/m2 [facility] Systolic blood pressure 2023-02-14 01:09:00 110 mm[Hg] [facility] acute hospital Diastolic blood pressure 2023-02-14 01:09:00 76 mm[Hg] General acute hospital Heart rate 2023-02-14 01:09:00 107 /min [facility] Body temperature 2023-02-14 01:09:00 37.11 Silvina [facility] Respiratory rate 2023-02-14 01:09:00 14 /min [facility] Body height 2023-02-14 01:09:00 165.1 cm [facility] Body weight 2023-02-14 01:09:00 108.954 kg [facility] BMI 2023-02-14 01:09:00 39.97 kg/m2 [facility] Oxygen saturation in Arterial blood by Pulse oximetry 2023-02-14 01:09:00 98 /min [facility] Systolic blood pressure 2022-11-05 16:30:00 104 mm[Hg] General acute hospital Diastolic blood pressure 2022-11-05 16:30:00 74 mm[Hg] General acute hospital Heart rate 2022-11-05 16:30:00 69 /min [facility] Body temperature 2022-11-05 16:30:00 36.89 Silv[place] [facility] Respiratory rate 2022-11-05 16:30:00 18 /min [facility] Body height 2022-11-05 16:30:00 165.1 cm [facility] Body weight 2022-11-05 16:30:00 108.863 kg [facility] [facility] BMI 2022-11-05 16:30:00 39.94 kg/m2 [facility] Systolic blood pressure 2022-10-21 16:40:00 113 mm[Hg] General acute hospital Diastolic blood pressure 2022-10-21 16:40:00 77 mm[Hg] General acute hospital Heart rate 2022-10-21 16:40:00 94 /min [facility] Body temperature 2022-10-21 16:40:00 36.78 [facility] Respiratory rate 2022-10-21 16:40:00 18 /min [facility] Body height 2022-10-21 16:40:00 165.1 cm [facility] Body weight 2022-10-21 16:40:00 108.863 [facility] BMI 2022-10-21 16:40:00 39.94 kg/m2 [facility] Systolic blood pressure 2022-10-13 15:09:00 107 mm[Hg] General acute hospital Diastolic blood pressure 2022-10-13 15:09:00 76 mm[Hg] General acute hospital Heart rate 2022-10-13 15:09:00 56 /min [facility] Body temperature 2022-10-13 15:09:00 36.83 [facility] Respiratory rate 2022-10-13 15:09:00 18 /min [facility] Body weight 2022-10-13 15:09:00 109.317 kg [facility] BMI 2022-10-13 15:09:00 40.10 kg/m2 [facility] Systolic blood pressure 2022-09-28 13:13:00 114 mm[Hg] General acute hospital Diastolic blood pressure 2022-09-28 13:13:00 73 mm[Hg] General acute hospital Heart rate 2022-09-28 13:13:00 78 /min [facility] Body temperature 2022-09-28 13:13:00 36.22 [facility] Respiratory rate 2022-09-28 13:13:00 16 /min [facility] Oxygen saturation in Arterial blood by Pulse oximetry 2022-09-28 13:13:00 100 /min [facility] acute hospital Systolic blood pressure 2022-09-24 15:16:00 110 mm[Hg] General acute hospital Diastolic blood pressure 2022-09-24 15:16:00 76 mm[Hg] General acute hospital Heart rate 2022-09-24 15:16:00 94 /min [facility] Body temperature 2022-09-24 15:16:00 36.72 [facility] Body height 2022-09-24 15:16:00 165.1 cm [facility] Body weight 2022-09-24 15:16:00 117.981 kg [facility] BMI 2022-09-24 15:16:00 43.28 kg/m2 [facility] Heart rate 2022-09-20 21:45:00 80 /min [facility] Oxygen saturation in Arterial blood by Pulse oximetry 2022-09-20 21:45:00 99 /min [facility] acute hospital Systolic blood pressure 2022-09-20 21:04:00 108 mm[Hg] General acute hospital Diastolic blood pressure 2022-09-20 21:04:00 63 mm[Hg] General acute hospital Body temperature 2022-09-20 21:04:00 37 [facility] Respiratory rate 2022-09-20 21:04:00 18 /min [facility] Body height 2022-09-20 21:04:00 165.1 cm [facility] Body weight 2022-09-20 21:04:00 118.026 kg [facility] BMI 2022-09-20 21:04:00 43.30 kg/m2 [facility] Systolic blood pressure 2022-09-17 16:11:00 110 mm[Hg] General acute hospital Diastolic blood pressure 2022-09-17 16:11:00 73 mm[Hg] General acute hospital Heart rate 2022-09-17 16:11:00 90 /min [facility] Body temperature 2022-09-17 16:11:00 36.78 [facility] Respiratory rate 2022-09-17 16:11:00 18 /min [facility] Body height 2022-09-17 16:11:00 165.1 cm [facility] Body weight 2022-09-17 16:11:00 117.482 kg [facility] BMI 2022-09-17 16:11:00 43.10 kg/m2 [facility] Heart rate 2022-09-16 17:15:00 94 /min [facility] Oxygen saturation in Arterial blood by Pulse oximetry 2022-09-16 17:15:00 98 /min [facility] acute hospital Systolic blood pressure 2022-09-16 16:30:00 112 mm[Hg] General acute hospital Diastolic blood pressure 2022-09-16 16:30:00 57 mm[Hg] General acute hospital Body temperature 2022-09-16 16:30:00 36.89 [facility] Body height 2022-09-16 16:30:00 165.1 cm [facility] Body weight 2022-09-16 16:30:00 117.935 kg [facility] BMI 2022-09-16 16:30:00 43.27 kg/m2 [facility] Respiratory rate 2022-09-16 15:41:00 16 /min [facility] Heart rate 2022-09-10 16:30:00 76 /min [facility] Oxygen saturation in Arterial blood by Pulse oximetry 2022-09-10 16:30:00 99 /min [facility] acute hospital Systolic blood pressure 2022-09-10 14:35:00 114 mm[Hg] General acute hospital Diastolic blood pressure 2022-09-10 14:35:00 65 mm[Hg] General acute hospital Body temperature 2022-09-10 14:35:00 36.67 [facility] Respiratory rate 2022-09-10 14:35:00 18 /min [facility] Body weight 2022-09-10 14:12:00 116.075 kg [facility] BMI 2022-09-10 14:12:00 42.58 kg/m2 [facility] Systolic blood pressure 2022-09-09 16:06:00 117 mm[Hg] General acute hospital Diastolic blood pressure 2022-09-09 16:06:00 78 mm[Hg] General acute hospital Heart rate 2022-09-09 16:06:00 93 /min [facility] Body temperature 2022-09-09 16:06:00 37 [facility] Respiratory rate 2022-09-09 16:06:00 16 /min [facility] Body height 2022-09-09 16:06:00 165.1 cm [facility] Body weight 2022-09-09 16:06:00 115.803 kg [facility] BMI 2022-09-09 16:06:00 42.48 kg/m2 [facility] Oxygen saturation in Arterial blood by Pulse oximetry 2022-09-09 16:06:00 98 /min [facility] acute hospital Systolic blood pressure 2022-09-08 03:00:00 101 mm[Hg] General acute hospital Diastolic blood pressure 2022-09-08 03:00:00 56 mm[Hg] General acute hospital Heart rate 2022-09-08 03:00:00 89 /min [facility] Oxygen saturation in Arterial blood by Pulse oximetry 2022-09-08 03:00:00 99 /min [facility] acute hospital Body temperature 2022-09-08 01:23:00 37.06 [facility] Respiratory rate 2022-09-08 01:23:00 18 /min [facility] Body height 2022-09-08 01:23:00 165.1 cm [facility] Body weight 2022-09-08 01:23:00 116.937 kg [facility] BMI 2022-09-08 01:23:00 42.90 kg/m2 [facility] Heart rate 2022-09-05 03:57:00 79 /min [facility] Oxygen saturation in Arterial blood by Pulse oximetry 2022-09-05 03:57:00 99 /min [facility] acute hospital Systolic blood pressure 2022-09-05 03:30:00 121 mm[Hg] General acute hospital Diastolic blood pressure 2022-09-05 03:30:00 73 mm[Hg] General acute hospital Body temperature 2022-09-05 03:00:00 36.5 [facility] Respiratory rate 2022-09-05 03:00:00 16 /min [facility] Body height 2022-09-05 02:45:00 165.1 cm [facility] Body weight 2022-09-05 02:45:00 116.937 kg [facility] BMI 2022-09-05 02:45:00 42.90 kg/m2 [facility] Heart rate 2022-09-02 12:32:00 75 /min [facility] Oxygen saturation in Arterial blood by Pulse oximetry 2022-09-02 12:32:00 99 /min [facility] acute hospital Systolic blood pressure 2022-09-02 10:55:00 121 mm[Hg] General acute hospital Diastolic blood pressure 2022-09-02 10:55:00 73 mm[Hg] General acute hospital Body temperature 2022-09-02 10:55:00 36.61 [facility] Respiratory rate 2022-09-02 10:55:00 19 /min [facility] Body height 2022-09-02 10:55:00 165.1 cm [facility] Body weight 2022-09-02 10:55:00 115.304 kg [facility] BMI 2022-09-02 10:55:00 42.30 kg/m2 [facility] Systolic blood pressure 2022-09-01 21:55:00 113 mm[Hg] General acute hospital Diastolic blood pressure 2022-09-01 21:55:00 74 mm[Hg] General acute hospital Heart rate 2022-09-01 21:55:00 97 /min [facility] Body temperature 2022-09-01 21:55:00 36.67 [facility] Respiratory rate 2022-09-01 21:55:00 20 /min [facility] Body height 2022-09-01 21:55:00 165.1 cm [facility] Body weight 2022-09-01 21:55:00 115.696 kg [facility] BMI 2022-09-01 21:55:00 42.44 kg/m2 [facility] Systolic blood pressure 2022-08-27 16:48:00 117 mm[Hg] General acute hospital Diastolic blood pressure 2022-08-27 16:48:00 76 mm[Hg] General acute hospital Heart rate 2022-08-27 16:48:00 84 /min [facility] Body temperature 2022-08-27 16:48:00 36.89 [facility] Respiratory rate 2022-08-27 16:48:00 16 /min [facility] Body height 2022-08-27 16:48:00 165.1 cm [facility] Body weight 2022-08-27 16:48:00 115.123 kg [facility] BMI 2022-08-27 16:48:00 42.23 kg/m2 [facility] Oxygen saturation in Arterial blood by Pulse oximetry 2022-08-27 16:48:00 99 /min General acute hospital Heart rate 2022-08-23 02:00:00 90 /min [facility] Oxygen saturation in Arterial blood by Pulse oximetry 2022-08-23 02:00:00 100 /min [facility] acute hospital Systolic blood pressure 2022-08-22 23:34:00 119 mm[Hg] General acute hospital Diastolic blood pressure 2022-08-22 23:34:00 65 mm[Hg] General acute hospital Body temperature 2022-08-22 23:34:00 36.33 [facility] Respiratory rate 2022-08-22 23:34:00 16 /min [facility] Body height 2022-08-22 23:34:00 165.1 cm [facility] Body weight 2022-08-22 23:34:00 115.667 kg [facility] BMI 2022-08-22 23:34:00 42.43 kg/m2 [facility] Systolic blood pressure 2022-08-14 01:14:00 105 mm[Hg] General acute hospital Diastolic blood pressure 2022-08-14 01:14:00 59 mm[Hg] General acute hospital Heart rate 2022-08-14 01:14:00 87 /min [facility] Body temperature 2022-08-14 01:14:00 36.44 [facility] Respiratory rate 2022-08-14 01:14:00 16 /min [facility] Oxygen saturation in Arterial blood by Pulse oximetry 2022-08-14 01:14:00 98 /min [facility] acute hospital Body height 2022-08-14 00:23:00 165.1 cm [facility] Body weight 2022-08-14 00:23:00 113.853 kg 251lb [facility] BMI 2022-08-14 00:23:00 41.77 kg/m2 [facility] Systolic blood pressure 2022-08-13 14:37:00 104 mm[Hg] General acute hospital Diastolic blood pressure 2022-08-13 14:37:00 72 mm[Hg] General acute hospital Heart rate 2022-08-13 14:37:00 97 /min [facility] Body temperature 2022-08-13 14:37:00 36.89 [facility] Respiratory rate 2022-08-13 14:37:00 18 /min [facility] Body height 2022-08-13 14:37:00 165.1 cm [facility] Body weight 2022-08-13 14:37:00 113.807 kg [facility] BMI 2022-08-13 14:37:00 41.75 kg/m2 [facility] Systolic blood pressure 2022-08-09 16:05:00 107 mm[Hg] General acute hospital Diastolic blood pressure 2022-08-09 16:05:00 74 mm[Hg] General acute hospital Heart rate 2022-08-09 16:05:00 84 /min [facility] Body temperature 2022-08-09 16:05:00 36.78 [facility] Respiratory rate 2022-08-09 16:05:00 16 /min [facility] Body height 2022-08-09 16:05:00 165.1 cm [facility] Body weight 2022-08-09 16:05:00 114.306 kg [facility] BMI 2022-08-09 16:05:00 41.93 kg/m2 [facility] Oxygen saturation in Arterial blood by Pulse oximetry 2022-08-09 16:05:00 98 /min General acute hospital Heart rate 2022-08-08 21:30:00 89 /min [facility] Oxygen saturation in Arterial blood by Pulse oximetry 2022-08-08 21:30:00 99 /min [facility] acute hospital Systolic blood pressure 2022-08-08 20:45:00 121 mm[Hg] General acute hospital Diastolic blood pressure 2022-08-08 20:45:00 65 mm[Hg] General acute hospital Body temperature 2022-08-08 20:45:00 36.61 [facility] Respiratory rate 2022-08-08 20:45:00 16 /min [facility] Body height 2022-08-08 20:22:00 165.1 cm [facility] Body weight 2022-08-08 20:22:00 113.853 kg [facility] BMI 2022-08-08 20:22:00 41.77 kg/m2 [facility] Systolic blood pressure 2022-08-02 13:35:00 111 mm[Hg] General acute hospital Diastolic blood pressure 2022-08-02 13:35:00 69 mm[Hg] General acute hospital Heart rate 2022-08-02 13:35:00 87 /min [facility] Body temperature 2022-08-02 13:35:00 37.11 [facility] Respiratory rate 2022-08-02 13:35:00 16 /min [facility] Body height 2022-08-02 13:35:00 165.1 cm [facility] Body weight 2022-08-02 13:35:00 112.719 kg [facility] BMI 2022-08-02 13:35:00 41.35 kg/m2 [facility] Oxygen saturation in Arterial blood by Pulse oximetry 2022-08-02 13:35:00 97 /min [facility] acute hospital Systolic blood pressure 2022-07-31 12:17:00 112 mm[Hg] General acute hospital Diastolic blood pressure 2022-07-31 12:17:00 72 mm[Hg] General acute hospital Heart rate 2022-07-31 12:17:00 82 /min [facility] Body temperature 2022-07-31 12:17:00 36.83 [facility] Respiratory rate 2022-07-31 12:17:00 18 /min [facility] Body height 2022-07-31 12:17:00 165.1 cm [facility] Body weight 2022-07-31 12:17:00 111.585 kg [facility] BMI 2022-07-31 12:17:00 40.94 kg/m2 [facility] Oxygen saturation in Arterial blood by Pulse oximetry 2022-07-31 12:17:00 96 /min [facility] acute hospital Systolic blood pressure 2022-07-30 18:23:00 112 mm[Hg] General acute hospital Diastolic blood pressure 2022-07-30 18:23:00 75 mm[Hg] General acute hospital Heart rate 2022-07-30 18:23:00 88 /min [facility] Body temperature 2022-07-30 18:23:00 36.89 [facility] Respiratory rate 2022-07-30 18:23:00 16 /min [facility] Body height 2022-07-30 18:23:00 165.1 cm [facility] Body weight 2022-07-30 18:23:00 111.766 kg [facility] BMI 2022-07-30 18:23:00 41.00 kg/m2 [facility] Oxygen saturation in Arterial blood by Pulse oximetry 2022-07-30 18:23:00 98 /min [facility] acute hospital Systolic blood pressure 2022-07-30 03:08:00 114 mm[Hg] General acute hospital Diastolic blood pressure 2022-07-30 03:08:00 73 mm[Hg] General acute hospital Heart rate 2022-07-30 03:08:00 95 /min [facility] Body temperature 2022-07-30 03:08:00 36.78 [facility] Respiratory rate 2022-07-30 03:08:00 18 /min [facility] Oxygen saturation in Arterial blood by Pulse oximetry 2022-07-30 03:08:00 98 /min [facility] acute hospital Body height 2022-07-30 02:42:00 [facility] 2022-07-30 02:42:00 112.537 kg [facility] BMI 2022-07-30 02:42:00 41.29 kg/m2 [facility] Heart rate 2022-07-25 01:00:00 85 /min [facility] Oxygen saturation in Arterial blood by Pulse oximetry 2022-07-25 01:00:00 99 /min [facility] acute hospital Systolic blood pressure 2022-07-25 00:15:00 103 mm[Hg] General acute hospital Diastolic blood pressure 2022-07-25 00:15:00 57 mm[Hg] General acute hospital Body temperature 2022-07-25 00:15:00 36.78 [facility] Respiratory rate 2022-07-25 00:15:00 16 /min [facility] Body height 2022-07-24 23:27:00 162.6 cm [facility] Body weight 2022-07-24 23:27:00 110.678 kg [facility] BMI 2022-07-24 23:27:00 41.88 kg/m2 [facility] Systolic blood pressure 2022-07-23 18:19:00 104 mm[Hg] General acute hospital Diastolic blood pressure 2022-07-23 18:19:00 68 mm[Hg] General acute hospital Heart rate 2022-07-23 18:19:00 74 /min [facility] Body temperature 2022-07-23 18:19:00 36.72 [facility] Respiratory rate 2022-07-23 18:19:00 16 /min [facility] Body height 2022-07-23 18:19:00 165.1 cm [facility] Body weight 2022-07-23 18:19:00 113.127 kg [facility] BMI 2022-07-23 18:19:00 41.50 kg/m2 [facility] Oxygen saturation in Arterial blood by Pulse oximetry 2022-07-23 18:19:00 98 /min General acute hospital Heart rate 2022-07-21 15:30:00 87 /min [facility] Oxygen saturation in Arterial blood by Pulse oximetry 2022-07-21 15:30:00 100 /min General acute hospital Systolic blood pressure 2022-07-21 13:34:00 112 mm[Hg] General acute hospital Diastolic blood pressure 2022-07-21 13:34:00 61 mm[Hg] General acute hospital Body temperature 2022-07-21 13:34:00 37 [facility] Respiratory rate 2022-07-21 13:34:00 18 /min [facility] Body height 2022-07-21 13:34:00 165.1 cm [facility] Body weight 2022-07-21 13:34:00 112.311 kg [facility] BMI 2022-07-21 13:34:00 41.20 kg/m2 [facility] Systolic blood pressure 2022-07-16 16:35:00 103 mm[Hg] General acute hospital Diastolic blood pressure 2022-07-16 16:35:00 72 mm[Hg] General acute hospital Heart rate 2022-07-16 16:35:00 90 /min [facility] Respiratory rate 2022-07-16 16:35:00 18 /min [facility] Body height 2022-07-16 16:35:00 162.6 cm [facility] Body weight 2022-07-16 16:35:00 111.54 kg [facility] BMI 2022-07-16 16:35:00 42.21 kg/m2 [facility] Oxygen saturation in Arterial blood by Pulse oximetry 2022-07-16 16:35:00 98 /min [facility] acute hospital Systolic blood pressure 2022-07-14 16:41:00 104 mm[Hg] General acute hospital Diastolic blood pressure 2022-07-14 16:41:00 70 mm[Hg] General acute hospital Heart rate 2022-07-14 16:41:00 68 /min [facility] Body temperature 2022-07-14 16:41:00 36.83 [facility] Respiratory rate 2022-07-14 16:41:00 18 /min [facility] Body height 2022-07-14 16:41:00 165.1 cm [facility] Body weight 2022-07-14 16:41:00 111.131 kg [facility] BMI 2022-07-14 16:41:00 40.77 kg/m2 [facility] Systolic blood pressure 2022-07-11 13:49:00 108 mm[Hg] General acute hospital Diastolic blood pressure 2022-07-11 13:49:00 52 mm[Hg] General acute hospital Body temperature 2022-07-11 13:49:00 36.72 [facility] Respiratory rate 2022-07-11 13:49:00 18 /min [facility] Oxygen saturation in Arterial blood by Pulse oximetry 2022-07-11 13:49:00 100 /min General acute hospital Heart rate 2022-07-11 11:15:00 89 /min [facility] Body height 2022-07-11 01:10:00 165.1 cm [facility] Body weight 2022-07-11 01:10:00 111.585 kg [facility] BMI 2022-07-11 01:10:00 40.94 kg/m2 [facility] Systolic blood pressure 2022-06-30 15:31:00 109 mm[Hg] General acute hospital Diastolic blood pressure 2022-06-30 15:31:00 73 mm[Hg] General acute hospital Heart rate 2022-06-30 15:31:00 77 /min [facility] Respiratory rate 2022-06-30 15:31:00 18 /min [facility] Body height 2022-06-30 15:31:00 165.1 cm [facility] Body weight 2022-06-30 15:31:00 110.406 kg [facility] BMI 2022-06-30 15:31:00 40.50 kg/m2 [facility] Oxygen saturation in Arterial blood by Pulse oximetry 2022-06-30 15:31:00 97 /min [facility] acute hospital Systolic blood pressure 2022-06-25 16:14:00 110 mm[Hg] General acute hospital Diastolic blood pressure 2022-06-25 16:14:00 72 mm[Hg] General acute hospital Heart rate 2022-06-25 16:14:00 117 /min [facility] Body temperature 2022-06-25 16:14:00 36.83 [facility] Respiratory rate 2022-06-25 16:14:00 18 /min [facility] Body height 2022-06-25 16:14:00 165.1 cm [facility] Body weight 2022-06-25 16:14:00 111.086 kg [facility] BMI 2022-06-25 16:14:00 40.75 kg/m2 [facility] height 2022-01-12 14:00:00 64 [in_i] Commo n [facility] weight 2022-01-12 14:00:00 244.6 [lb_av] Co mmon [facility] temperature 2022-01-12 14:00:00 97.9 [degF] Com mon [facility] bmi 2022-01-12 14:00:00 41.98 kg/m2 Comm on [facility] oximetry 2022-01-12 14:00:00 99 % Commo n [facility] respiratory rate 2022-01-12 14:00:00 17 /min Common [facility] blood pressure systolic 2022-01-12 14:00:00 124 mm[Hg] Common [facility] blood pressure diastolic 2022-01-12 14:00:00 75 mm[Hg] Common [facility] height 2021-07-10 09:40:00 64 [in_i] Commo n [facility] weight 2021-07-10 09:40:00 240 [lb_av] Comm on [facility] temperature 2021-07-10 09:40:00 98 [degF] Comm on [facility] bmi 2021-07-10 09:40:00 41.19 kg/m2 Comm on [facility] height 2021-04-09 11:10:00 64 [in_i] Commo n [facility] weight 2021-04-09 11:10:00 240 [lb_av] Comm on [facility] temperature 2021-04-09 11:10:00 97.5 [degF] Com mon [facility] bmi 2021-04-09 11:10:00 41.19 kg/m2 Comm on [facility] height 2021-03-05 13:00:00 64 [in_i] Commo n [facility] weight 2021-03-05 13:00:00 240 [lb_av] Comm on [facility] temperature 2021-03-05 13:00:00 98 [degF] Comm on [facility] bmi 2021-03-05 13:00:00 41.19 kg/m2 Comm on [facility] height 2021-02-04 16:00:00 64 [in_i] Commo n [facility] weight 2021-02-04 16:00:00 245.0 [lb_av] Co mmon [facility] temperature 2021-02-04 16:00:00 97.1 [degF] Com mon [facility] bmi 2021-02-04 16:00:00 42.05 kg/m2 Comm on [facility] oximetry 2021-02-04 16:00:00 98 % Commo n [facility] respiratory rate 2021-02-04 16:00:00 17 /min Common [facility] blood pressure systolic 2021-02-04 16:00:00 116 mm[Hg] Common [facility] blood pressure diastolic 2021-02-04 16:00:00 68 mm[Hg] Common Spiri t - [facility] Procedures Procedure Date / Time Performed Performing Clinician Source XR ANKLE 3+ VW LEFT 2024-10-25 17:37:22 Alejandro Pfeiffer [facility] XR FOOT 3+ VW LEFT 2024-10-25 17:37:[address] [facility] POCT MOLECULAR STREP 2024-07-10 00:53:00 Leonor Mueller [facility] TROPONIN I 2024-07-04 00:51:00 [facility] COMP. METABOLIC PANEL ([id number]) 2024-07-04 00:51:00 [facility] CBC WITH DIFF 2024-07-04 00:51:00 Ramon [facility] D-DIMER 2024-07-04 00:51:00 Jarrett [facility] N-TERMINAL PRO-BNP 2024-07-04 00:51:00 Jarrett Navarro [facility] POCT MOLECULAR STREP 2024-06-29 01:25:00 Unknown, Atte piedad [facility] POCT TEST 2024-05-13 06:36:00 Brooklynn Nagy [facility] XR KNEE <3 VW RIGHT 2024-05-13 06:12:16 Brooklynn Nagy [facility] COMP. METABOLIC PANEL (31050) 2023-12-01 04:34:00 Gildardo Dunne [facility] CBC WITH DIFF 2023-12-01 04:34:00 Gildardo Dunne [facility] URINALYSIS 2023-12-01 04:34:00 Gildardo Dunne [facility] POCT TEST 2023-12-01 04:33:00 Gildardo Dunne [facility] XR KNEE 3 VW RIGHT 2023-12-01 04:24:34 Gildardo Dunne [facility] ASSIGNMENT OF BENEFITS 2023-12-01 03:21:42 Docto r Unassigned, [place] [facility] NOTICE OF PRIVACY PRACTICES 2023-12-01 02:41:06 Doctor Unassigned, [place] [facility] CONSENT/REFUSAL FOR DIAGNOSIS AND TREATMENT 2023-12-01 02:40:06 Doctor Unassigned, [place] [facility] ASSIGNMENT OF BENEFITS 2023-10-14 04:37:08 Docto r Unassigned, [place] [facility] XR HIPS 2 VW RIGHT 2023-10-14 04:26:25 Elen Benedict [facility] XR PELVIS <3 VW 2023-10-14 04:26:[address] [facility] POCT TEST 2023-10-14 04:08:00 Elen Benedict [facility] CONSENT/REFUSAL FOR DIAGNOSIS AND TREATMENT 2023-10-14 03:26:58 Doctor Unassigned, [place] [facility] POCT MOLECULAR FLU 2023-09-28 01:49:00 Unknown, Attend ing [facility] POCT MOLECULAR STREP 2023-09-28 01:43:00 Unknown, Atte nding [facility] CONSENT/REFUSAL FOR DIAGNOSIS AND TREATMENT 2023-09-28 01:24:42 Doctor Unassigned, [place] [facility] XR CHEST 1 VW 2023-09-04 03:28:00 Elen Benedict [facility] CONSENT/REFUSAL FOR DIAGNOSIS AND TREATMENT 2023-09-04 02:58:37 Doctor Unassigned, [place] [facility] POCT TEST 2023-08-29 16:59:00 Ellen Nicole [facility] URINALYSIS 2023-08-29 16:55:00 Nicole Chen [facility] RAPID STREP SCREEN FOR GROUP A 2023-08-29 16:45:00 Ellen [facility] RAPID INFLUENZA A/B 2023-08-29 16:45:00 Ellen Nicole [facility] COVID-19 (ID NOW RAPID TESTING) 2023-08-29 16:45:00 Ellen Nicole [facility] CONSENT/REFUSAL FOR DIAGNOSIS AND TREATMENT 2023-08-29 16:17:13 Doctor Unassigned, [place] [facility] POCT MOLECULAR STREP 2023-02-14 01:10:00 Unknown, Atte gagandeeping [facility] CONSENT FOR CONTRACEPTION 2022-11-05 06:01:00 Doctor Unassigned, [place] [facility] POCT TEST 2022-11-05 00:00:00 Josette Cheung [facility] CBC WITH DIFF 2022-09-28 10:16:00 [facility] 2022-09-27 17:43:59 Lila Peterson [facility] POCT URINALYSIS W/O SPECIFIC GRAVITY 2022-09-24 00:00:00 Kortney Trejo [facility] ADC ONLY - FERN TEST 2022-09-20 21:22:00 Josette Cheung [facility] CONSENT/REFUSAL FOR DIAGNOSIS AND TREATMENT 2022-09-20 20:41:32 Doctor Unassigned, [place] [facility] POCT URINALYSIS W/O SPECIFIC GRAVITY 2022-09-17 00:00:00 Josette Cheung [facility] ASSIGNMENT OF BENEFITS 2022-09-16 15:34:10 Docto r Unassigned, [place] [facility] CONSENT/REFUSAL FOR DIAGNOSIS AND TREATMENT 2022-09-16 15:33:45 Doctor Unassigned, [place] [facility] CONSENT/REFUSAL FOR DIAGNOSIS AND TREATMENT 2022-09-10 13:59:02 Doctor Unassigned, [place] [facility] POCT URINALYSIS W/O SPECIFIC GRAVITY 2022-09-01 21:55:00 Kortney Trejo [facility] POCT URINALYSIS W/O SPECIFIC GRAVITY 2022-08-27 00:00:00 Josette Cheung [facility] ADC ONLY - FERN TEST 2022-08-23 00:32:00 Kimberlyn Sr [facility] CONSENT/REFUSAL FOR DIAGNOSIS AND TREATMENT 2022-08-22 23:10:08 Doctor Unassigned, [place] [facility] ASSIGNMENT OF BENEFITS 2022-08-22 23:09:40 Docto r Unassigned, [place] [facility] ASSIGNMENT OF BENEFITS 2022-08-13 23:59:39 Docto r Unassigned, [place] [facility] CONSENT/REFUSAL FOR DIAGNOSIS AND TREATMENT 2022-08-13 23:55:23 Doctor Unassigned, [place] [facility] POCT URINALYSIS W/O SPECIFIC GRAVITY 2022-08-13 00:00:00 Josette Cheung [facility] CONSENT/REFUSAL FOR DIAGNOSIS AND TREATMENT 2022-08-08 20:14:56 Doctor Unassigned, [place] [facility] LIPASE 2022-07-31 13:17:00 Jarvis Mcqueen [facility] COMP. METABOLIC PANEL ([id number]) 2022-07-31 13:17:00 Jarvis Mcqueen [facility] CBC WITH DIFF 2022-07-31 13:17:00 Jarvis Mcqueen [facility] URINALYSIS 2022-07-31 13:17:00 Jarvis Mcqueen [facility] CONSENT/REFUSAL FOR DIAGNOSIS AND TREATMENT 2022-07-31 12:19:27 Doctor Unassigned, [place] [facility] ADC ONLY - FERN TEST 2022-07-30 03:23:00 Kimberlyn Sr [facility] CONSENT/REFUSAL FOR DIAGNOSIS AND TREATMENT 2022-07-30 02:31:49 Doctor Unassigned, [place] [facility] POCT URINALYSIS W/O SPECIFIC GRAVITY 2022-07-30 00:00:00 Kortney Trejo [facility] AUTHORIZATION FOR RELEASE OF PHI 2022-07-29 05:01:00 Doctor Unassigned, [place] [facility] CONSENT/REFUSAL FOR DIAGNOSIS AND TREATMENT 2022-07-24 23:17:55 Doctor Unassigned, [place] [facility] ASSIGNMENT OF BENEFITS 2022-07-24 23:17:39 Docto r Unassigned, [place] [facility] TDAP VACCINE, >11 YRS, IM 2022-07-23 18:09:53 Kortney Trejo [facility] FLU VACC (), 6 MO-64 YRS, .5ML, IM, QUAD (FLUCELVAX) 2022-07-23 18:09:53 Kortney Trejo [facility] URINALYSIS 2022-07-21 14:02:00 Josette Cheung [facility] CLC OR LCC ONLY - WET PREP 2022-07-21 14:02:00 Josette Cheung [facility] CONSENT/REFUSAL FOR DIAGNOSIS AND TREATMENT 2022-07-21 13:13:42 Doctor Unassigned, [place] [facility] ASSIGNMENT OF BENEFITS 2022-07-21 13:13:23 Docto r Unassigned, [place] [facility] POCT URINALYSIS W/O SPECIFIC GRAVITY 2022-07-16 16:39:00 Josette Cheung [facility] SCANNED LAB RESULTS 2022-07-16 05:01:00 Doctor Yessy urban, [place] [facility] CLC OR LCC ONLY - WET PREP 2022-07-11 01:46:00 Fish Sam [facility] ONLY - FERN TEST 2022-07-11 01:44:00 [facility] ASSIGNMENT OF BENEFITS 2022-07-11 00:47:49 Docto r Unassigned, [place] [facility] POCT URINALYSIS W/O SPECIFIC GRAVITY 2022-06-30 15:32:00 Kortney Trejo [facility] ASSIGNMENT OF BENEFITS 2022-06-28 15:33:01 Docto r Unassigned, [place] [facility] POCT URINALYSIS W/O SPECIFIC GRAVITY 2022-06-25 00:00:00 Kortney Trejo [facility] MR Knee wo contrast [id number] 2018-08-25 00:00:00 [facility] US Extremity lower venous doppler bilat [id number] 2018-08-25 00:00:00 [facility] Encounters Start Date/Time End Date/Time Encounter Type Admission Type Attending Clinicians Care Facility Care Department Encounter ID Source 2022-12-28 07:26:01 Outpatient Fernandez Langford [facility] [id number] [facility] 2022-07-11 11:05:16 Outpatient KIMBERLYN LAMBERT [facility]RON [id number] [facility] 2021-11-04 13:55:18 Outpatient Langford, Fernandez [facility] [id number] [facility] 2021-11-04 13:10:23 Outpatient Langford, Fernandez [facility] [id number] [facility] 2021-11-04 12:57:22 Outpatient Langford, Fernandez [facility] [id number] [facility] 2021-11-04 12:25:15 Outpatient Langford, Fernandez [facility] [id number] [facility] 2021-11-04 12:13:17 Outpatient Langford, Fernandez [facility] [id number] [facility] 2021-11-04 12:00:49 Outpatient Langford, Fernandez [facility] [id number] [facility] 2021-11-04 11:54:10 Outpatient Langford, Fernandez [facility] [id number] [facility] 2021-11-04 11:51:45 Outpatient Langford, Fern[facility] [id number] [facility] 2021-08-11 08:26:00 Emergency [facility] [id number] [facility] 2021-08-10 22:05:53 Emergency [facility] [id number] [facility] 2021-08-06 18:42:34 Outpatient P IAMB DAYRON [id number] [facility] 2021-08-06 18:05:33 Outpatient P IAMB DAYRON [id number] [facility] 2021-08-06 18:04:40 Outpatient P IAMB DAYRON [id number] [facility] 2025-03-20 10:45:00 2025-03-20 10:45:00 Outpatient SANTY YARBROUGH [id number] [facility] 2025-02-13 14:45:00 2025-02-13 14:45:00 Outpatient LEPOIDEVIN, SANTY MERRITT [id number] [facility] 2025-01-15 11:45:00 2025-01-15 11:45:00 Outpatient LEPOIDEVIN, SANTY MERRITT [id number] [facility] 2025-01-07 00:00:00 2025-01-07 00:00:00 Outpatient LEPOIDEVIN, SANTY MERRITT [id number] [facility] 2025-01-02 00:00:00 2025-01-02 00:00:00 Outpatient HUNDL, LOREN MERRITT [id number] [facility] 2024-12-26 13:10:00 2024-12-26 13:10:00 Outpatient RUBINDEBBIE MOFFETT [id number] [facility] 2024-12-26 09:00:00 2024-12-26 09:00:00 Outpatient HUNDL, LOREN MERRITT [id number] [facility] 2024-12-25 00:00:00 2024-12-25 00:00:00 Outpatient LEPOIDEVIN, SANTY MERRITT [id number] [facility] 2024-12-21 11:00:00 2024-12-21 11:00:00 Outpatient RUBINDEBBIE MOFFETT [id number] [facility] 2024-12-20 00:00:00 2024-12-20 00:00:00 Outpatient DEBBIE RUBIN [id number] [facility] 2024-12-19 10:40:00 2024-12-19 10:40:00 Outpatient DEBBIE RUBIN [id number] [facility] 2024-12-17 16:00:00 2024-12-17 16:00:00 Outpatient LEPOIDEVIN, SANTY MERRITT [id number] [facility] 2024-12-13 00:00:00 2024-12-13 00:00:00 Outpatient LEPOIDEVIN, SANTY MERRITT [id number] [facility] 2024-12-12 14:30:00 2024-12-12 14:30:00 Outpatient LINNEA SANTY MERRITT [id number] [facility] 2024-12-07 11:00:00 2024-12-07 11:00:00 Outpatient LINNEA SANTY MERRITT [id number] [facility] 2024-12-04 14:00:00 2024-12-04 14:00:00 Outpatient R ADUM, KIMBERLYN ADUM, KIMBERLYN [facility] [id number] [facility] 2024-12-03 13:00:00 2024-12-03 13:00:00 Outpatient LOREN HERNANDEZ [id number] [facility] 2024-11-28 10:10:00 2024-11-28 10:10:00 Outpatient DEBBIE RUBIN [id number] [facility] 2024-11-27 10:30:00 2024-11-27 10:30:00 Outpatient R ADUM, KIMBERLYN ADUM, KIMBERLYN [facility] [id number] [facility] 2024-11-26 16:00:00 2024-11-26 16:00:00 Outpatient LOREN HERNANDEZ [id number] [facility] 2024-11-26 00:00:00 2024-11-26 00:00:00 Outpatient DEBBIE RUBIN [id number] [facility] 2024-11-22 15:30:00 2024-11-22 15:30:00 Outpatient LOREN HERNANDEZ [id number] [facility] 2024-11-07 11:00:00 2024-11-07 11:00:00 Outpatient LOREN HERNANDEZ [id number] [facility] 2024-11-02 00:00:00 2024-11-02 00:00:00 Outpatient LOREN HERNANDEZ [id number] [facility] 2024-11-01 10:30:00 2024-11-01 10:30:00 Outpatient MADHAVI COBB [facility] [id number] [facility] 2024-10-30 11:00:00 2024-10-30 11:00:00 Outpatient DAVID LOREN MERRITT [id number] [facility] 2024-10-29 00:00:00 2024-10-29 00:00:00 Outpatient LOREN HERNANDEZ [id number] [facility] 2024-10-25 11:06:00 2024-10-25 13:04:00 Emergency X ALEJANDRO PFEIFFER [facility] ERT [id number] [facility] 2024-10-25 11:06:00 2024-10-25 13:04:00 Emergency Alejandro Pfeiffer T [facility] AT [facility] 1.2.840.114 350.1.13.10 4.2.7.2.686 [id number] [facility] 2024-10-25 11:00:00 2024-10-25 11:00:00 Outpatient MARLEN KASICHRISTOPHAIDEN [facility] [id number] [facility] 2024-10-19 11:30:00 2024-10-19 11:30:00 Outpatient CANELO BAUTISTA [facility] [id number] [facility] 2024-10-18 00:00:00 2024-10-18 00:00:00 Outpatient LOREN HERNANDEZ [id number] [facility] 2024-10-15 00:00:00 2024-10-15 00:00:00 Outpatient LOREN HERNANDEZ [id number] [facility] 2024-09-28 00:00:00 2024-09-28 00:00:00 Outpatient MD ANAT RECINOS [id number] [facility] 2024-09-07 00:00:00 2024-09-07 00:00:00 Outpatient LOREN HERNANDEZ [id number] [facility] 2024-08-30 13:00:00 2024-08-30 13:00:00 Outpatient LOREN HERNANDEZ [id number] [facility] 2024-08-30 00:00:00 2024-08-30 00:00:00 Outpatient MOORE AUTUMNDAWN AlfredoIE ANAT MERRITT [id number] [facility] 2024-08-30 00:00:00 2024-08-30 00:00:00 Outpatient MD ANAT RECINOS [id number] [facility] 2024-08-15 00:00:00 2024-08-15 00:00:00 Outpatient MD ANAT RECINOS [id number] [facility] 2024-08-15 00:00:00 2024-08-15 00:00:00 Outpatient LOREN HERNANDEZ [id number] [facility] 2024-08-09 10:30:00 2024-08-09 10:30:00 Outpatient LOREN HERNANDEZ [id number] [facility] 2024-07-18 12:30:00 2024-07-18 12:30:00 Outpatient ANAT MERRITT [id number] [facility] 2024-07-10 10:30:00 2024-07-10 10:30:00 Outpatient LOREN HERNANDEZ [id number] [facility] 2024-07-09 19:20:00 2024-07-09 20:06:56 Outpatient R LEONOR MUELLER [facility] [id number] [facility] 2024-07-09 19:20:00 2024-07-09 20:06:56 Urgent Care Leonor Mueller Unknown, Attending [facility] 1.2.840.114 350.1.13.10 4.2.7.2.686 [id number] [facility] 2024-07-03 17:29:00 2024-07-03 21:41:00 Emergency X JARRETT NAVARRO SHINTA [facility] ERT [id number] [facility] 2024-07-03 17:29:00 2024-07-03 21:41:00 Emergency Jarrett Navarro [facility] AT [facility] 1..840.114 350.1.13.10 4.2.7.2.686 [id number] [facility] 2024-06-28 20:00:00 2024-06-28 20:20:00 Urgent Care Delvis Kaye Unknown, Attending [facility] 1..840.114 350.1.13.10 4.2.7.2.686 [id number] [facility] 2024-06-28 20:00:00 2024-06-28 20:00:00 Outpatient R DELVIS KAYE [facility] [id number] [facility] 2024-06-28 08:20:00 2024-06-28 08:20:00 Outpatient LAB90 ANAT MERRITT [id number] [facility] 2024-06-27 10:00:00 2024-06-27 10:00:00 Outpatient LOREN HERNANDEZ [id number] [facility] 2024-06-25 20:24:00 2024-06-25 21:05:00 Emergency X ESTHER GARZA SANDRA [facility] ERT [id number] [facility] 2024-06-25 20:24:00 2024-06-25 21:05:00 Emergency Esther Garza [facility] 1..840.114 350.1.13.10 4.2.7.2.686 [id number] [facility] 2024-06-25 19:00:00 2024-06-25 19:00:00 Outpatient KRYSTA BARRETO [id number] [facility] 2024-06-25 11:00:00 2024-06-25 11:00:00 Outpatient KAIDEN NG [id number] [facility] 2024-06-25 00:00:00 2024-06-25 00:00:00 Outpatient MD ANAT RECINOS [id number] [facility] 2024-06-16 00:00:00 2024-06-16 00:00:00 Outpatient TIFFANY DOUGLAS [id number] [facility] 2024-06-12 07:45:00 2024-06-12 07:45:00 Outpatient KIBERONICA COLÓN [facility] [id number] [facility] 2024-06-11 19:45:00 2024-06-11 19:45:00 Outpatient PASHA PEDORZA [id number] [facility] 2024-06-07 15:30:00 2024-06-07 15:30:00 Outpatient CHANTELL BOO [id number] [facility] 2024-06-06 14:20:00 2024-06-06 14:20:00 Outpatient ANAT MERRITT [id number] [facility] 2024-06-06 14:00:00 2024-06-06 14:00:00 Outpatient CHANTELL BOO [id number] [facility] 2024-06-05 00:00:00 2024-06-05 00:00:00 Outpatient MD ANAT RECINOS [id number] [facility] 2024-06-01 00:00:00 2024-06-01 00:00:00 Outpatient CHANTELL BOO [id number] [facility] 2024-05-30 19:00:00 2024-05-30 19:00:00 Outpatient GENET NI [id number] [facility] 2024-05-25 16:30:00 2024-05-25 16:30:00 Outpatient LOREN HERNANDEZ [id number] [facility] 2024-05-25 15:55:00 2024-05-25 15:55:00 Outpatient SIMON MERRITT [id number] [facility] 2024-05-23 00:00:00 2024-05-23 00:00:00 Outpatient AANT MERRITT [id number] [facility] 2024-05-22 15:30:00 2024-05-22 15:30:00 Outpatient LOREN HERNANDEZ [id number] [facility] 2024-05-18 15:55:00 2024-05-18 15:55:00 Outpatient LAB47 ANAT MERRITT [id number] [facility] 2024-05-18 15:05:00 2024-05-18 15:05:00 Outpatient TIFFANY DOUGLAS [facility] [id number] [facility] 2024-05-13 00:06:00 2024-05-13 02:18:00 Emergency X JOSUÉ NAGY [facility] ERT [id number] [facility] 2024-05-13 00:06:00 2024-05-13 02:18:00 Emergency Josué Nagy [facility] AT [facility] 1.2.840.114 350.1.13.10 4.2.7.2.686 [id number] [facility] 2024-05-10 20:45:00 2024-05-10 20:45:00 Outpatient HARI NAJERA [id number] [facility] 2024-05-08 11:00:00 2024-05-08 11:00:00 Outpatient LABAzucena ANAT MERRITT [id number] [facility] 2024-05-07 13:00:00 2024-05-07 13:00:00 Outpatient LOREN HERNANDEZ [id number] [facility] 2024-05-05 20:35:00 2024-05-05 20:35:00 Outpatient JANET PERAZA [id number] [facility] 2024-05-01 10:30:00 2024-05-01 10:30:00 Outpatient LOREN HERNANDEZ [id number] [facility] 2024-04-13 14:30:00 2024-04-13 14:30:00 Outpatient JUNIOR BOONEMB [facility] [id number] [facility] 2023-11-30 21:48:00 2023-12-01 00:08:00 Emergency X Gildardo DUNNE [facility] ERT [id number] [facility] 2023-11-30 21:48:00 2023-12-01 00:08:00 Emergency Gildardo Dunne Beth [facility] 1.114 350.1.13.10 4.2.7.2.686 [id number] [facility] 2023-10-26 13:00:00 2023-10-26 13:00:00 Outpatient R CHEUNG JOSETTE [facility] [id number] [facility] 2023-10-13 21:42:00 2023-10-13 23:48:00 Emergency X ELEN BENEDICT [facility] ERT [id number] [facility] 2023-10-13 21:42:00 2023-10-13 23:48:00 Emergency Elen Benedict G [facility] 1.114 350.1.13.10 4.2.7.2.686 [id number] [facility] 2023-09-27 19:20:00 2023-09-27 20:33:42 Outpatient R RADHA HAROXin [facility] [id number] [facility] 2023-09-27 19:20:00 2023-09-27 20:33:42 Urgent Care Yoseph Haro Unknown, Attending [facility] 1.114 350.1.13.10 4.2.7.2.686 [id number] [facility] 2023-09-27 00:00:00 2023-09-27 00:00:00 Orders Only Doctor Unassigned, [place] [facility] 1.114 350.1.13.10 4.2.7.2.686 [id number] [facility] 2023-09-03 21:06:00 2023-09-04 00:27:00 Emergency X ELEN BENEDICT [facility] ERT [id number] [facility] 2023-09-03 21:06:00 2023-09-04 00:27:00 Emergency Elen Benedict [facility] 1.0.114 350.1.13.10 4.2.7.2.686 [id number] [facility] 2023-08-29 10:21:00 2023-08-29 12:04:00 Emergency X ELLEN [facility] ERT [id number] [facility] 2023-08-29 10:21:00 2023-08-29 12:04:00 Emergency EllenNicole [facility] ([facility] 1.84.114 350.1.13.10 4.2.7.2.686 [id number] [facility] 2023-08-02 13:41:32 2023-08-02 13:41:32 Outpatient SFA ODIN [id number] Leo Burgess 2023-05-25 10:30:00 2023-05-25 10:30:00 Outpatient R KORTNEY TREJO CHERYAL [facility] [id number] [facility] 2023-05-06 10:30:00 2023-05-06 10:30:00 Outpatient R JOSETTE CHEUNG [facility] [id number] [facility] 2023-03-12 00:00:00 2023-03-12 00:00:00 Patient Secure Msg Kortney Trejo [facility] 1.840.114 350.1.13.10 4.2.7.2.686 [id number] [facility] 2023-02-13 20:40:00 2023-02-13 20:40:00 Urgent Care Sydnie Andrade Unknown, Attending [facility] 1.0.114 350.1.13.10 4.2.7.2.686 [id number] [facility] 2023-02-13 20:40:00 2023-02-13 20:26:50 Outpatient R SYDNIE ANDRADE [facility] [id number] [facility] 2022-12-22 00:00:00 2022-12-22 00:00:00 (TEL) STLMLC STLMLC [id number] [facility] 2022-12-07 08:00:00 2022-12-07 08:00:00 Outpatient R KORTNEY TREJO CHERYAL [facility] [id number] [facility] 2022-11-05 10:30:00 2022-11-05 11:06:14 Outpatient R JOSETTE CHEUNG [facility] [id number] [facility] 2022-11-05 10:30:00 2022-11-05 11:06:14 Office Visit Josette Cheung [facility] 1.0.114 350.1.13.10 4.2.7.2.686 [id number] [facility] 2022-11-05 00:00:00 2022-11-05 00:00:00 Orders Only Doctor Unassigned, [place] [facility] 1.0.114 350.1.13.10 4.2.7.2.686 [id number] [facility] 2022-11-04 00:00:00 2022-11-04 00:00:00 Patient Secure viktoria HurleyesShayy [facility] [facility]IN[facility] 1.0.114 350.1.13.10 4.2.7.2.686 [id number] 134 [id number] [facility] 2022-10-29 00:00:00 2022-10-29 00:00:00 Telephone Josette Cheung [facility] 1.2.840.114 350.1.13.10 4.2.7.2.686 [id number] 134 [id number] [facility] 2022-10-21 10:45:00 2022-10-21 10:52:00 Outpatient R KORTNEY TREJO CHERYAL [facility] [id number] [facility] 2022-10-21 10:45:00 2022-10-21 10:52:00 Office Visit Kortney Trejo [facility] [place] 1..840.114 350.1.13.10 4.2.7.2.686 [id number] 134 [id number] [facility] 2022-10-15 10:00:00 2022-10-15 10:00:00 Outpatient R JOSETTE CHEUNG [facility] [id number] [facility] 2022-10-13 09:30:00 2022-10-13 09:34:04 Outpatient R KORTNEY TREJO CHERYAL [facility] [id number] [facility] 2022-10-13 09:30:00 2022-10-13 09:34:04 [facility] 1.2.840.114 350.1.13.10 4.2.7.2.686 [id number] 134 [id number] [facility] 2022-10-06 14:45:00 2022-10-06 14:45:00 Outpatient R KORTNEY TREJO [facility] [id number] [facility] 2022-09-27 03:57:00 2022-09-28 15:45:00 Inpatient X [facility]ETTE [facility] [id number] [facility] 2022-09-27 03:57:00 2022-09-28 15:45:00 Hospital Encounter Josette Cheung [facility] 1.2.840.114 350.1.13.10 4.2.7.2.686 [id number] [id number] [facility] 2022-09-27 11:12:00 2022-09-27 14:21:00 Anesthesia Event Lila Peterson Stacey [facility] 1.2.840.114 350.1.13.10 4.2.7.2.686 [id number] [id number] [facility] 2022-09-24 13:15:00 2022-09-24 13:30:00 Long Line Teamster Visit Pob, Adc Lab Main Josette Cheung [facility] PROFESSIO [facility] 1.2840.114 350.1.13.10 4.2.7.2.686 [id number] [facility] 2022-09-24 09:15:00 2022-09-24 09:51:57 Outpatient R KORTNEY TREJO [facility] [id number] [facility] 2022-09-24 09:15:00 2022-09-24 09:51:57 Routine Visit Kortney Trejo [facility] 1.2840.114 350.1.13.10 4.2.7.2.686 [id number] 134 [id number] [facility] 2022-09-20 14:47:00 2022-09-20 16:05:00 Outpatient X JOSETTE CHEUNG [facility] [id number] [facility] 2022-09-20 14:47:00 2022-09-20 16:05:00 Emergency Josette Cheung [facility] 1.2.840.114 350.1.13.10 4.2.7.2.686 [id number] [facility] 2022-09-20 00:00:00 2022-09-20 00:00:00 Telephone Korntey Trejo [facility] 1.840.114 350.1.13.10 4.2.7.2.686 [id number] 134 [id number] [facility] 2022-09-17 10:30:00 2022-09-17 10:37:48 Outpatient R CHEUNGJOSETTE [facility] [id number] [facility] 2022-09-17 10:30:00 2022-09-17 10:37:48 Routine Visit MichaelJosette [facility] 1.840.114 350.1.13.10 4.2.7.2.686 [id number] 134 [id number] [facility] 2022-09-16 09:42:00 2022-09-16 11:30:00 Outpatient X JOSETTE CHEUNG [facility] [id number] [facility] 2022-09-16 09:42:00 2022-09-16 11:30:00 Emergency Josette Cheung [facility] 1..840.114 350.1.13.10 4.2.7.2.686 [id number] [id number] [facility] 2022-09-10 08:14:00 2022-09-10 10:42:00 Outpatient X JOSETTE CHEUNG [facility] [id number] [facility] 2022-09-10 08:14:00 2022-09-10 10:42:00 Emergency Gildardo DunneJosette [facility] 1..840.114 350.1.13.10 4.2.7.2.686 [id number] [id number] [facility] 2022-09-10 10:00:00 2022-09-10 10:00:00 Outpatient R KORTNEY TREJO [facility] [id number] [facility] 2022-09-09 10:00:00 2022-09-09 10:19:15 Outpatient R KORTNEY TREJO [facility] [id number] [facility] 2022-09-09 10:00:00 2022-09-09 10:19:15 Routine Visit Kortney Trejo [facility] 1.2.840.114 350.1.13.10 4.2.7.2.686 [id number] 134 [id number] [facility] 2022-09-09 00:00:00 2022-09-09 00:00:00 [facility]phone [facility] 1.2.840.114 350.1.13.10 4.2.7.2.686 [id number] 134 [id number] [facility] 2022-09-08 00:00:00 2022-09-08 00:00:00 [facility] 1.2.840.114 350.1.13.10 4.2.7.2.686 [id number] [facility] 2022-09-08 00:00:00 2022-09-08 00:00:00 Patient Secure Msg [facility] 1.2.840.114 350.1.13.10 4.2.7.2.686 [id number] 134 [id number] [facility] 2022-09-07 19:07:00 2022-09-07 21:15:00 Outpatient X ADKIMBERLYN ROSA [facility] [id number] [facility] 2022-09-07 19:07:00 2022-09-07 21:15:00 Emergency AdKimberlyn rosa [facility] 1.2.840.114 350.1.13.10 4.2.7.2.686 [id number] 083 [id number] [facility] 2022-09-06 08:15:00 2022-09-06 08:29:53 Long Line Teamster Visit Ultrasound, Johana ArroyoMeche Baljinder [facility] MOLD [facility] 1..840.114 350.1.13.10 4.2.7.2.686 [id number] [facility] 2022-09-06 08:15:00 2022-09-06 08:15:00 Outpatient P DINAJOLLYRashid [facility] [id number] [facility] 2022-09-06 00:00:00 2022-09-06 00:00:00 Telephone Migdalia Alberto [facility] 1..840.114 350.1.13.10 4.2.7.2.686 [id number] 134 [id number] [facility] 2022-09-04 20:58:00 2022-09-04 22:00:00 Outpatient X POLK-SHASHANK S, [facility] [id number] [facility] 2022-09-04 20:58:00 2022-09-04 22:00:00 Emergency Jarvis Mcqueen Polk-Shashank s, [facility] 1..840.114 350.1.13.10 4.2.7.2.686 [id number] [id number] [facility] 2022-09-04 00:00:00 2022-09-04 00:00:00 Nurse Triage Dena Manrique [facility] 1..840.114 350.1.13.10 4.2.7.2.686 [id number] [facility] 2022-09-02 04:41:00 2022-09-02 07:04:00 Outpatient P JOSETTE CHEUNG [facility] [id number] [facility] 2022-09-02 04:41:00 2022-09-02 07:04:00 Hospital Encounter Josette Cheung [facility] 1.2.840.114 350.1.13.10 4.2.7.2.686 [id number] [id number] [facility] 2022-09-01 15:45:00 2022-09-01 16:36:53 Outpatient R KORTNEY TREJO [facility] [id number] [facility] 2022-09-01 15:45:00 2022-09-01 16:36:53 Routine Visit [facility] 1.2.840.114 350.1.13.10 4.2.7.2.686 [id number] 134 [id number] [facility] 2022-08-31 00:00:00 2022-08-31 00:00:00 [facility]phone [facility] 1.2.840.114 350.1.13.10 4.2.7.2.686 [id number] 134 [id number] [facility] 2022-08-27 10:00:00 2022-08-27 11:13:25 Outpatient R JOSETTE CHEUNG [facility] [id number] [facility] 2022-08-27 10:00:00 2022-08-27 11:13:25 Routine Visit Josette Cheung [facility] 1.2840.114 350.1.13.10 4.2.7.2.686 [id number] 134 [id number] [facility] 2022-08-23 13:45:00 2022-08-23 13:45:00 Outpatient R JOSETTE CHEUNG [facility] [id number] [facility] 2022-08-22 17:21:00 2022-08-22 20:03:00 Outpatient X KIMBERLYN SR [facility] [id number] [facility] 2022-08-22 17:21:00 2022-08-22 20:03:00 Emergency AdumKimberlyn [facility] 1.2.840.114 350.1.13.10 4.2.7.2.686 [id number] [id number] [facility] 2022-08-22 00:00:00 2022-08-22 00:00:00 Orders Only Doctor Unassigned, [place] [facility] 1.2.840.114 350.1.13.10 4.2.7.2.686 [id number] [facility] 2022-08-13 19:05:00 2022-08-13 20:17:00 Outpatient X GIRISH KIMBERLYN [facility] [id number] [facility] 2022-08-13 19:05:00 2022-08-13 20:17:00 Emergency AdumKimberlyn [facility] 1.2.840.114 350.1.13.10 4.2.7.2.686 [id number] [facility] 2022-08-13 10:00:00 2022-08-13 10:00:00 Routine Visit Kortney Trejo [facility] 1.2.840.114 350.1.13.10 4.2.7.2.686 [id number] 134 [id number] [facility] 2022-08-13 10:00:00 2022-08-13 09:48:20 Outpatient R KORTNEY TREJO CHERYAL [facility] [id number] [facility] 2022-08-11 12:30:00 2022-08-11 12:30:00 Outpatient R [facility] [id number] [facility] 2022-08-09 11:00:00 2022-08-09 11:17:45 Outpatient R KORTNEY TREJO CHERYAL [facility] [id number] [facility] 2022-08-09 11:00:00 2022-08-09 11:17:45 Routine Visit Kortney Trejo [facility] 1.2.840.114 350.1.13.10 4.2.7.2.686 [id number] 134 [id number] [facility] 2022-08-08 15:26:00 2022-08-08 16:35:00 Outpatient X JOSETTE CHEUNG [facility] [id number] [facility] 2022-08-08 15:26:00 2022-08-08 16:35:00 Emergency Elen Benedict Vien [facility] 1.2.840.114 350.1.13.10 4.2.7.2.686 [id number] [id number] [facility] 2022-08-02 08:30:00 2022-08-02 09:00:00 Office Visit MeenaKortney oquendo [facility] 1.2.840.114 350.1.13.10 4.2.7.2.686 [id number] 134 [id number] [facility] 2022-08-02 08:30:00 2022-08-02 08:30:00 Outpatient R KORTNEY TREJO CHERYAL [facility] [id number] [facility] 2022-07-31 07:18:00 2022-07-31 09:27:00 Emergency X JARVIS MCQUEEN [facility] ERT [id number] [facility] 2022-07-31 07:18:00 2022-07-31 09:27:00 Emergency Jarvis Mcqueen [facility] 1.2.840.114 350.1.13.10 4.2.7.2.686 [id number] [facility] 2022-07-30 13:30:00 2022-07-30 13:44:47 Outpatient R KORTNEY TREJO CHERYAL [facility] [id number] [facility] 2022-07-30 13:30:00 2022-07-30 13:44:47 Routine Visit Kortney Trejo [facility] 1.0.114 350.1.13.10 4.2.7.2.686 [id number] 134 [id number] [facility] 2022-07-29 21:45:00 2022-07-29 23:36:00 Outpatient X GIRISH KIMBERLYN [facility] [id number] [facility] 2022-07-29 21:45:00 2022-07-29 23:36:00 Emergency Yesica Laymalcolm Alfredo Kimberlyn Sr Tesha [facility] 1.0.114 350.1.13.10 4.2.7.2.686 [id number] [id number] [facility] 2022-07-26 15:30:00 2022-07-26 15:30:00 Outpatient R KORTNEY TREJO [facility] [id number] [facility] 2022-07-26 00:00:00 2022-07-26 00:00:00 Telephone Michael Josette Roddy [facility] 1..114 350.1.13.10 4.2.7.2.686 [id number] 134 [id number] [facility] 2022-07-24 18:27:00 2022-07-24 20:15:00 Outpatient X JOSETTE CHEUNG [facility] [id number] [facility] 2022-07-24 18:27:00 2022-07-24 20:15:00 Emergency Josette Cheung [facility] 1.0.114 350.1.13.10 4.2.7.2.686 [id number] [facility] 2022-07-23 13:00:00 2022-07-23 13:31:03 Outpatient R KORTNEY TREJO CHERYAL [facility] [id number] [facility] 2022-07-23 13:00:00 2022-07-23 13:31:03 Routine Visit Kortney Trejo [facility] 1.2.840.114 350.1.13.10 4.2.7.2.686 [id number] 134 [id number] [facility] 2022-07-23 00:00:00 2022-07-23 00:00:00 Telephone Deb Cheungen [facility] 1.2.0.114 350.1.13.10 4.2.7.2.686 [id number] 134 [id number] [facility] 2022-07-22 00:00:00 2022-07-22 00:00:00 Telephone Josette Cheung [facility] 1.2840.114 350.1.13.10 4.2.7.2.686 [id number] 134 [id number] [facility] 2022-07-21 08:13:00 2022-07-21 11:00:00 Outpatient P JOSETTE CHEUNG [facility] OBS [id number] [facility] 2022-07-21 08:13:00 2022-07-21 11:00:00 Hospital Encounter Josette Cheung [facility] 1.2.840.114 350.1.13.10 4.2.7.2.686 [id number] [facility] 2022-07-16 11:30:00 2022-07-16 12:01:54 Outpatient R JOSETTE CHEUNG [facility] [id number] [facility] 2022-07-16 11:30:00 2022-07-16 12:01:54 Routine Visit Josette Cheung [facility] 1.2.0.114 350.1.13.10 4.2.7.2.686 [id number] 134 [id number] [facility] 2022-07-16 00:00:00 2022-07-16 00:00:00 Orders Only Doctor Unassigned, [place] [facility] 1.2840.114 350.1.13.10 4.2.7.2.686 [id number] [facility] 2022-07-14 11:30:00 2022-07-14 12:03:26 Outpatient R MEENADALE OQUENDOPATRICK [facility]ITALBASSAMALEXYAMILA [facility] [id number] [facility] 2022-07-14 11:30:00 2022-07-14 12:03:26 Office Visit Colealexyamila Kortney [facility] 1.0.114 350.1.13.10 4.2.7.2.686 [id number] 134 [id number] [facility] 2022-07-10 19:56:00 2022-07-11 10:46:00 Outpatient X SAM BRADLEY [facility] [id number] [facility] 2022-07-10 19:56:00 2022-07-11 10:46:00 Emergency Sam Bradley [facility] 1.840.114 350.1.13.10 4.2.7.2.686 [id number] [id number] [facility] 2022-07-10 00:00:00 2022-07-10 00:00:00 Orders Only Doctor Unassigned, [place] [facility] 1.20.114 350.1.13.10 4.2.7.2.686 [id number] [facility] 2022-07-08 08:45:00 2022-07-08 09:00:00 Long Line Teamster Visit Pob, Adc Lab Main Kortney Trejo [facility] 1.2840.114 350.1.13.10 4.2.7.2.686 [id number] [facility] 2022-07-08 08:45:00 2022-07-08 08:45:00 Outpatient R KORTNEY TREJO CHERYAL [facility] [id number] [facility] 2022-06-30 10:30:00 2022-06-30 10:45:05 Outpatient R KORTNEY TREJO CHERYAL [facility] [id number] [facility] 2022-06-30 10:30:00 2022-06-30 10:45:05 Routine Visit ColealexKortney henry [facility] 1..840.114 350.1.13.10 4.2.7.2.686 [id number] 134 [id number] [facility] 2022-06-30 10:30:00 2022-06-30 10:30:00 Outpatient R KORTNEY TREJO CHERYAL [facility] [id number] [facility] 2022-06-30 10:30:00 2022-06-30 10:30:00 Outpatient R KORTNEY TREJO CHERYAL [facility] [id number] [facility] 2022-06-28 14:15:00 2022-06-28 14:30:00 Long Line Teamster Visit Pob, Adc Lab Main Kortney Trejo [facility] 1..840.114 350.1.13.10 4.2.7.2.686 [id number] [facility] 2022-06-28 14:15:00 2022-06-28 14:15:00 Outpatient R KORTNEY TREJO CHERYAL [facility] [id number] [facility] 2022-06-28 00:00:00 2022-06-28 00:00:00 Orders Only Doctor Unassigned, [place] [facility] 1.2840.114 350.1.13.10 4.2.7.2.686 [id number] [facility] 2022-06-25 11:30:00 2022-06-25 11:30:00 Office Visit Meenajere Kortney [facility] 1.2840.114 350.1.13.10 4.2.7.2.686 [id number] 134 [id number] [facility] 2022-06-25 11:30:00 2022-06-25 11:26:42 Outpatient R MAYA KORTNEY [facility] [id number] [facility] 2022-06-24 09:30:00 2022-06-24 09:30:00 Outpatient R JOSETTE CHEUNG [facility] [id number] [facility] 2022-06-24 00:00:00 2022-06-24 00:00:00 Telephone Maya [facility] 1.2840.114 350.1.13.10 4.2.7.2.686 [id number] 134 [id number] [facility] 2022-06-22 00:00:00 2022-06-22 00:00:00 Telephone Josette Cheung [facility] 1.2840.114 350.1.13.10 4.2.7.2.686 [id number] 134 [id number] [facility] 2022-06-18 10:30:00 2022-06-18 11:52:49 Long Line Teamster Visit 2, [facility] Us Migdalia York [facility] 1.2.840.114 350.1.13.10 4.2.7.2.686 [id number] [facility] 2022-06-18 10:30:00 2022-06-18 10:30:00 Outpatient P MIGDALIA VAZQUEZ SHANNON [facility] [id number] [facility] 2022 14:00:00 2022 15:15:53 Outpatient R JOSETTE CHEUNG [facility] [id number] [facility] 2022 14:00:00 2022 15:15:53 Routine Visit Josette Cheung [facility] 1..114 350.1.13.10 4.2.7.2.686 [id number] 134 [id number] [facility] 2022 00:00:00 2022 00:00:00 Orders Only Doctor Unassigned, [place] [facility] 1..114 350.1.13.10 4.2.7.2.686 [id number] [facility] 2022-06-02 13:30:00 2022-06-02 14:07:33 Outpatient R KORTNEY TREJO [facility] OQUENDO [facility] [id number] [facility] 2022-06-02 13:30:00 2022-06-02 14:07:33 Routine Visit Kortney Trejo [facility] 1..114 350.1.13.10 4.2.7.2.686 [id number] 134 [id number] [facility] 2022-05-21 08:00:00 2022-05-21 08:59:22 Long Line Teamster Visit 2, [facility] Room ManojMeche london [facility] 1..114 350.1.13.10 4.2.7.2.686 [id number] [facility] 2022-05-21 08:00:00 2022-05-21 08:00:00 Outpatient P DINA JOLLYRashid [facility] [id number] [facility] 2022-05-18 10:00:2022-05-18 10:00:00 Outpatient R LEONOR MUELLER [facility] [id number] [facility] 2022-05-17 14:00:00 2022-05-17 14:00:00 Outpatient P [facility] [id number] [facility] 2022-05-17 14:00:00 2022-05-17 14:00:00 Outpatient P [facility] [id number] [facility] 2022-05-06 00:00:00 2022-05-06 00:00:00 Telephone Kortney Trejo [facility] 1.840.114 350.1.13.10 4.2.7.2.686 [id number] [facility] 2022-05-05 13:30:00 2022-05-05 14:17:16 Outpatient R KORTNEY TREJO [facility] [id number] [facility] 2022-05-05 13:30:00 2022-05-05 14:17:16 [facility]ine [facility] [place] 1.20.114 350.1.13.10 4.2.7.2.686 [id number] 134 [id number] [facility] 2022-05-03 00:00:00 2022-05-03 00:00:00 Case Management Maya [facility] 1.2840.114 350.1.13.10 4.2.7.2.686 [id number] 134 [id number] [facility] 2022-04-29 00:00:00 2022-04-29 00:00:00 Telephone Kortney Trejo [facility] [place] 1.2840.114 350.1.13.10 4.2.7.2.686 [id number] 134 [id number] [facility] 2022-04-28 00:00:00 2022-04-28 00:00:00 Refill Kortney Trejo [facility] 1.2.840.114 350.1.13.10 4.2.7.2.686 [id number] 134 [id number] [facility] 2022-04-27 00:00:00 2022-04-27 00:00:00 Patient Secure Msg Maya [facility] 1.2.840.114 350.1.13.10 4.2.7.2.686 [id number] 134 [id number] [facility] 2022-04-23 00:00:00 2022-04-23 00:00:00 Telephone Maya [facility] 1.2.840.114 350.1.13.10 4.2.7.2.686 [id number] 134 [id number] [facility] 2022-04-14 09:15:00 2022-04-14 09:19:38 [facility] [id number] [facility] 2022-04-14 09:15:00 2022-04-14 09:19:38 Routine Visit Kortney Trejo [facility] 1.2.840.114 350.1.13.10 4.2.7.2.686 [id number] 134 [id number] [facility] 2022-04-11 05:57:00 2022-04-11 06:10:00 Emergency X ESTHER GARZA [facility] ERT [id number] [facility] 2022-04-11 05:57:00 2022-04-11 06:10:00 Emergency Esther Garza [facility] 1.2.840.114 350.1.13.10 4.2.7.2.686 [id number] [id number] [facility] 2022-04-11 00:00:00 2022-04-11 00:00:00 Nurse Triage Truong Leo [facility] 1..114 350.1.13.10 4.2.7.2.686 [id number] [id number] [facility] 2022-04-09 00:00:00 2022-04-09 00:00:00 Orders Only Doctor Unassigned, [place] [facility] 1.0.114 350.1.13.10 4.2.7.2.686 [id number] [facility] 2022-04-07 09:00:00 2022-04-07 09:31:10 Outpatient R KORTNEY TREJO [facility] [id number] [facility] 2022-04-07 09:00:00 2022-04-07 09:31:10 Routine Visit Kortney Trejo [facility] 1.114 350.1.13.10 4.2.7.2.686 [id number] 134 [id number] [facility] 2022-04-07 09:00:00 2022-04-07 09:00:00 Outpatient R KORTNEY TREJO [facility]ERY[facility] [id number] [facility] 2022-04-05 08:26:00 2022-04-05 08:44:00 Emergency X ESTHER GARZA [facility] ERT [id number] [facility] 2022-04-05 08:26:00 2022-04-05 08:44:00 Emergency Esther Garza [facility] 1..114 350.1.13.10 4.2.7.2.686 [id number] [id number] [facility] 2022-04-05 00:00:00 2022-04-05 00:00:00 Letter (Out) Cecy Wesley [facility] 1.2.840.114 350.1.13.10 4.2.7.2.686 [id number] [facility] 2022-04-05 00:00:00 2022-04-05 00:00:00 Orders Only Doctor Unassigned, [place] [facility] 1.2840.114 350.1.13.10 4.2.7.2.686 [id number] [facility] 2022-04-04 16:20:00 2022-04-04 16:46:38 Outpatient R LEONOR MUELLER [facility] [id number] [facility] 2022-04-04 16:20:00 2022-04-04 16:46:38 Urgent Care [facility] 1.114 350.1.13.10 4.2.7.2.686 [id number] [facility] 2022-04-01 00:00:00 2022-04-01 00:00:00 Telephone Josette Cheung [facility] 1.114 350.1.13.10 4.2.7.2.686 [id number] 134 [id number] [facility] [facility] 2022-[facility]-01 00:00:00 2022-04-01 00:00:00 Refill Kortney Trejo [facility] 1.114 350.1.13.10 4.2.7.2.686 [id number] 134 [id number] [facility] 2022-03-31 09:30:00 2022-03-31 09:45:00 Long Line Teamster Visit Lab, Marcos Trejo [facility] 1.84114 350.1.13.10 4.2.7.2.686 [id number] [facility] 2022-03-31 09:30:00 2022-03-31 09:30:00 Outpatient R [facility] [id number] [facility] 2022-03-31 09:30:00 2022-03-31 09:30:00 Outpatient R KORTNEY TREJO CHERYAL [facility] [id number] [facility] 2022-03-31 00:00:00 2022-03-31 00:00:00 Orders Only Doctor Unassigned, [place] [facility] 1.2840.114 350.1.13.10 4.2.7.2.686 [id number] [facility] 2022-03-24 10:00:00 2022-03-24 10:13:45 Outpatient R KORTNEY TREJO CHERYAL [facility] [id number] [facility] 2022-03-24 10:00:00 2022-03-24 10:13:45 Office Visit Kortney Trejo [facility] [place] 1.2840.114 350.1.13.10 4.2.7.2.686 [id number] 134 [id number] [facility] 2022-03-24 00:00:00 2022-03-24 00:00:00 Letter (Out) Kortney Trejo [facility] [place] 1.20.114 350.1.13.10 4.2.7.2.686 [id number] 134 [id number] [facility] 2022-03-20 20:41:00 2022-03-21 01:22:00 Emergency X ELPIDIO MARTINEZ [facility] ERT [id number] [facility] 2022-03-20 20:41:00 2022-03-21 01:22:[address] [facility] 1.2840.114 350.1.13.10 4.2.7.2.686 [id number] [facility] 2022-03-17 00:00:00 2022-03-17 00:00:00 Outpatient R KORTNEY TREJO CHERYAL [facility] [id number] [facility] 2022-03-12 00:00:00 2022-03-12 00:00:00 Telephone Josette Cheung [facility] 1..840.114 350.1.13.10 4.2.7.2.686 [id number] 134 [id number] [facility] 2022-03-10 13:00:00 2022-03-10 13:44:04 Outpatient R KORTNEY TREJO [facility] [id number] [facility] 2022-03-10 13:00:00 2022-03-10 13:44:04 Routine Visit Kortney Trejo [facility] 1..840.114 350.1.13.10 4.2.7.2.686 [id number] 134 [id number] [facility] 2022-03-10 13:00:00 2022-03-10 13:00:00 Outpatient R KORTNEY TREJO [facility] [id number] [facility] 2022-03-02 00:00:00 2022-03-02 00:00:00 Patient Secure Msg Kortney Trejo [facility] 1..840.114 350.1.13.10 4.2.7.2.686 [id number] 134 [id number] [facility] 2022-03-01 15:00:00 2022-03-01 15:33:04 Outpatient R KORTNEY TREJO CHERYAL [facility] [id number] [facility] 2022-03-01 15:00:00 2022-03-01 15:33:04 Office Visit Kortney Trejo [facility] 1.2.840.114 350.1.13.10 4.2.7.2.686 [id number] 134 [id number] [facility] 2022-03-01 00:00:00 2022-03-01 00:00:00 Letter (Out) Kortney Trejo [facility] 1.2.840.114 350.1.13.10 4.2.7.2.686 [id number] 134 [id number] [facility] 2022-02-24 11:06:00 2022-02-24 12:11:00 Emergency X KAI LARKIN [facility] ERT [id number] [facility] 2022-02-24 11:06:00 2022-02-24 12:11:00 Emergency Kai Larkin [facility] 1.2.840.114 350.1.13.10 4.2.7.2.686 [id number] [facility] 2022-02-24 11:06:00 2022-02-24 12:11:00 Emergency X KAI LARKIN [facility] ERT [id number] [facility] 2022-02-21 13:39:00 2022-02-21 14:32:00 Emergency X ELPIDIO MARTINEZ [facility] ERT [id number] [facility] 2022-02-21 13:39:00 2022-02-21 14:32:00 Emergency Elpidio Martinez S [facility] 1.2.840.114 350.1.13.10 4.2.7.2.686 [id number] [facility] 2022-02-19 00:00:00 2022-02-19 00:00:00 Telephone Josette Cheung [facility] 1.2.840.114 350.1.13.10 4.2.7.2.686 [id number] 134 [id number] [facility] 2022-02-16 09:00:00 2022-02-16 09:00:00 Outpatient R KORTNEY TREJO [facility] [id number] [facility] 2022-02-15 09:30:00 2022-02-15 10:32:37 Outpatient R KORTNEY TREJO [facility] [id number] [facility] 2022-02-15 09:30:00 2022-02-15 10:32:37 Routine Visit MeenaKortney oquendo [facility] 1.840.114 350.1.13.10 4.2.7.2.686 [id number] 134 [id number] [facility] 2022-02-14 13:00:00 2022-02-14 13:20:00 [facility] 1.2840.114 350.1.13.10 4.2.7.2.686 [id number] 370 [id number] [facility] 2022-02-14 13:00:00 2022-02-14 13:00:[address] [facility] [id number] [facility] 2022-02-14 00:00:00 2022-02-14 00:00:00 Letter (Out) Ceron, [facility] 1.2.840.114 350.1.13.10 4.2.7.2.686 [id number] 370 [id number] [facility] 2022-02-12 00:00:00 2022-02-12 00:00:00 Telephone Kortney Trejo [facility] 1.284.114 350.1.13.10 4.2.7.2.686 [id number] 134 [id number] [facility] 2022-02-11 13:00:00 2022-02-11 13:15:00 Long Line Teamster Visit Lab, Marcos - Juan Pablo Maya [facility]?SILVIO [facility] 1.2.840.114 350.1.13.10 4.2.7.2.686 [id number] [facility] 2022-02-11 13:00:00 2022-02-11 13:00:00 Outpatient R KORTNEY TREJO [facility] [id number] [facility] 2022-02-10 13:00:00 2022-02-10 13:25:06 Outpatient R KORTNEY TREJO [facility] [id number] [facility] 2022-02-10 13:00:00 2022-02-10 13:25:06 Routine Visit Kortney Trejo [facility] 1.840.114 350.1.13.10 4.2.7.2.686 [id number] 134 [id number] [facility] 2022-02-10 00:00:00 2022-02-10 00:00:00 Patient Secure John Gomez [facility] 1.2.840.114 350.1.13.10 4.2.7.2.686 [id number] 134 [id number] [facility] 2022-02-09 13:00:00 2022-02-09 13:15:00 Long Line Teamster Visit Lab, Marcos Robledojere [facility]IL[facility] 1..840.114 350.1.13.10 4.2.7.2.686 [id number] 353 [id number] [facility] 2022-02-09 13:00:00 2022-02-09 13:00:00 Outpatient R KORTNEY TREJO [facility] [id number] [facility] 2022-02-09 09:00:00 2022-02-09 09:36:35 Routine Visit Kortney Trejo [facility] 1.0.114 350.1.13.10 4.2.7.2.686 [id number] 134 [id number] [facility] 2022-02-05 13:19:16 2022-02-05 23:59:00 Outpatient R KORTNEY TREJO [facility] [id number] [facility] 2022-02-05 13:19:16 2022-02-05 23:59:00 Hospital Encounter Kortney Trejo [facility] 1.0.114 350.1.13.10 4.2.7.2.686 [id number] [facility] 2022-02-05 00:00:00 2022-02-05 00:00:00 Orders Only Doctor Unassigned, [place] [facility] 1.840.114 350.1.13.10 4.2.7.2.686 [id number] [facility] 2022-02-03 14:22:00 2022-02-03 17:02:00 Emergency X NIXON PERDUE [facility] ERT [id number] [facility] 2022-02-03 14:22:00 2022-02-03 17:02:00 Emergency Nixon [facility] 1.2840.114 350.1.13.10 4.2.7.2.686 [id number] [id number] [facility] 2022-02-03 08:00:00 2022-02-03 08:15:00 Long Line Teamster Visit Pob, Adc Lab Main [facility] 1.840.114 350.1.13.10 4.2.7.2.686 [id number] [facility] 2022-02-03 08:00:00 2022-02-03 08:00:00 Outpatient R KORTNEY TREJO CHERYAL [facility] [id number] [facility] 2022-02-03 00:00:00 2022-02-03 00:00:00 Patient Secure John Gomez [facility] 1.840.114 350.1.13.10 4.2.7.2.686 [id number] 134 [id number] [facility] 2022-02-02 09:00:00 2022-02-02 09:20:46 Outpatient R KORTNEY TREJO CHERYAL [facility] [id number] [facility] 2022-02-02 09:00:00 2022-02-02 09:20:46 Routine Visit Kortney Trejo [facility] 1.840.114 350.1.13.10 4.2.7.2.686 [id number] 134 [id number] [facility] 2022-02-02 09:00:00 2022-02-02 09:20:46 Outpatient R KORTNEY TREJO CHERYAL [facility] [id number] [facility] 2022-02-02 00:00:00 2022-02-02 00:00:00 Patient Secure Kortney Hood [facility] 1.2840.114 350.1.13.10 4.2.7.2.686 [id number] 134 [id number] [facility] 2022-02-01 13:30:00 2022-02-01 17:02:00 Emergency X KAI LARKIN [facility] ERT [id number] [facility] 2022-02-01 13:30:00 2022-02-01 17:02:00 Emergency Kai Larkin [facility] 1.2.840.114 350.1.13.10 4.2.7.2.686 [id number] [id number] [facility] 2022-02-01 00:00:00 2022-02-01 00:00:00 Telephone Kortney Trejo [facility] 1.2840.114 350.1.13.10 4.2.7.2.686 [id number] 134 [id number] [facility] 2022-02-01 00:00:00 2022-02-01 00:00:00 Case Management Maya [facility] 1.2840.114 350.1.13.10 4.2.7.2.686 [id number] 134 [id number] [facility] 2022-01-30 09:15:00 2022-01-30 09:30:00 Long Line Teamster Visit [place] [facility] Main Maya [facility] NAL BUILDING 1..114 350.1.13.10 4.2.7.2.686 [id number] 353 [id number] [facility] 2022-01-30 09:15:00 2022-01-30 09:15:00 Outpatient R [facility] [id number] [facility] 2022-01-29 00:00:00 2022-01-29 00:00:00 Patient Secure Msg Doctor Unassigned, [place] [facility] 1.2840.114 350.1.13.10 4.2.7.2.686 [id number] [facility] 2022-01-27 09:00:00 2022-01-27 09:15:00 Long Line Teamster Visit Marcos Peoplesyamila [facility] 1..114 350.1.13.10 4.2.7.2.686 [id number] [facility] 2022-01-27 09:00:00 2022-01-27 09:00:00 Outpatient R KORTNEY TREJO [facility] [id number] [facility] 2022-01-27 00:00:00 2022-01-27 00:00:00 [facility] 1..114 350.1.13.10 4.2.7.2.686 [id number] 134 [id number] [facility] 2022-01-26 09:00:00 2022-01-26 09:42:07 Outpatient R KORTNEY TREJO [facility] [id number] [facility] 2022-01-26 09:00:00 2022-01-26 09:42:07 [facility] 1..114 350.1.13.10 4.2.7.2.686 [id number] 134 [id number] [facility] 2022-01-26 00:00:00 2022-01-26 00:00:00 Patient Secure Juan Daniel Gomezdarrell [facility] 1..114 350.1.13.10 4.2.7.2.686 [id number] 134 [id number] [facility] 2022-01-26 00:00:00 2022-01-26 00:00:00 [facility] 1..114 350.1.13.10 4.2.7.2.686 [id number] 134 [id number] [facility] 2022-01-25 10:30:00 2022-01-25 10:45:00 Long Line Teamster Visit Lab, Nydia Diaz [facility] JOSE CEDILLO?[facility] 1.20.114 350.1.13.10 4.2.7.2.686 [id number] [facility] 2022-01-25 10:30:00 2022-01-25 10:30:00 Outpatient R NYDIA PHILLIPS [facility] [id number] [facility] 2022-01-25 10:00:00 2022-01-25 10:09:56 Urgent Care Jacqueline [facility] OFFICE BUILDING 1..840.114 350.1.13.10 4.2.7.2.686 [id number] 370 [id number] [facility] 2022-01-25 00:00:00 2022-01-25 00:00:00 Patient Secure g Erika Phillips[facility]ly [facility] OFF[facility] BU[facility] 1..840.114 350.1.13.10 4.2.7.2.686 [id number] 370 [id number] [facility] 2022-01-12 00:00:00 2022-01-12 00:00:00 OFFICE VISIT EST PT LEVEL 3 STLMLC STLC [id number] [facility] 2022-01-11 00:00:00 2022-01-11 00:00:00 (TEL) STLMLC STLMLC [id number] [facility] 2021-12-18 18:00:00 2021-12-18 18:00:00 Outpatient R NYDIA PHILLIPS [facility] [id number] [facility] 2021-12-14 00:00:00 2021-12-14 00:00:00 Patient Secure Msg [facility] 1..840.114 350.1.13.10 4.2.7.2.686 [id number] 134 [id number] [facility] 2021-12-11 00:00:00 2021-12-11 00:00:00 Patient Secure Msg Josette Cheung [facility] NAL BUILDING 1..840.114 350.1.13.10 4.2.7.2.686 [id number] 134 [id number] [facility] 2021-10-22 11:00:00 2021-10-22 11:00:00 Outpatient R EZRA DELEON [facility] [id number] [facility] 2021-10-22 00:00:00 2021-10-22 00:00:00 Refill Raymond [facility] DANTE?SILVIO [facility] 1..840.114 350.1.13.10 4.2.7.2.686 [id number] 370 [id number] [facility] 2021-10-15 11:40:00 2021-10-15 13:06:17 Outpatient R RAYMOND [facility] [id number] [facility] 2021-10-15 11:40:00 2021-10-15 12:00:00 Urgent Care Raymond [facility]?SILVIO [facility] 1..840.114 350.1.13.10 4.2.7.2.686 [id number] 370 [id number] [facility] 2021-10-12 00:00:00 2021-10-12 00:00:00 OFFICE VISIT ESTAB PT LEVEL 1 STLMLC STLC [id number] [facility] 2021-10-12 00:00:00 2021-10-12 00:00:00 (TEL) STLC STLMLC [id number] [facility] 2021-09-10 00:00:00 2021-09-10 00:00:00 Refill Leonor Mueller [facility] D[facility] 1..840.114 350.1.13.10 4.2.7.2.686 [id number] 370 [id number] [facility] 2021-07-31 00:00:00 2021-07-31 00:00:00 Patient Secure Msg Josette Cheung [facility] BUILDING 1.2.840.114 350.1.13.10 4.2.7.2.686 [id number] 134 [id number] [facility] 2021-07-30 00:00:00 2021-07-30 00:00:00 Telephone Josette Cheung [facility] Building 1.2.840.114 350.1.13.10 4.2.7.2.686 [id number] 134 [id number] [facility] 2021-07-29 19:42:00 2021-07-29 21:40:00 Emergency Opal Elen Roman [facility] 1.2.840.114 350.1.13.10 4.2.7.2.686 [id number] [facility] 2021-07-19 00:00:00 2021-07-19 00:00:00 Refill Jacqueline, [facility]?Silvio pérez Medical Office Building 1.2.840.114 350.1.13.10 4.2.7.2.686 [id number] 370 [id number] [facility] 2021-07-14 17:18:01 2021-07-14 17:47:01 Urgent Care Jacqueline [facility]?Silvio p[facility]rez Medical Office Building 1.2.840.114 350.1.13.10 4.2.7.2.686 [id number] [facility] 2021-07-14 17:40:00 2021-07-14 17:40:00 Outpatient ERIKA BELLAMYTANY [facility] [id number] [facility] 2021-07-14 10:00:00 2021-07-14 10:00:00 Outpatient ERIKA BELLAMYTANY [facility] [id number] [facility] 2021-07-10 00:00:00 2021-07-10 00:00:00 OFFICE VISIT EST PT LEVEL 3 STLMLC STLMLC [id number] [facility] 2021-07-03 15:00:00 2021-07-03 15:00:00 Outpatient R ELLE SAMUELS [facility] [id number] [facility] 2021-07-03 00:00:00 2021-07-03 00:00:00 Patient Secure Msg Yulia [facility] 1.2840.114 350.1.13.10 4.2.7.2.686 [id number] [facility] 2021-06-30 11:55:40 2021-06-30 12:25:40 Office Visit Yulia [facility] 1.2840.114 350.1.13.10 4.2.7.2.686 [id number] [facility] 2021-06-30 09:02:52 2021-06-30 09:22:31 Urgent Care Ervin [facility]?Silvio [facility] Medical Office Building 1.284.114 350.1.13.10 4.2.7.2.686 [id number] [facility] 2021-06-30 09:00:00 2021-06-30 09:00:00 [facility] [id number] [facility] 2021-06-22 00:00:00 2021-06-22 00:00:00 Letter (Out) [facility] 1.284.114 350.1.13.10 4.2.7.2.686 [id number] [facility] 2021-06-22 00:00:00 2021-06-22 00:00:00 Letter (Out) [facility] 1.2.840.114 350.1.13.10 4.2.7.2.686 [id number] [facility] 2021-06-22 00:00:00 2021-06-22 00:00:00 Patient Secure Msg Doctor Unassigned, [place] [facility] 1.2.840.114 350.1.13.10 4.2.7.2.686 [id number] [id number] [facility] 2021-06-21 15:13:00 2021-06-21 16:17:00 Emergency Shanika nava [facility] 1.2.840.114 350.1.13.10 4.2.7.2.686 [id number] [facility] 2021-06-21 15:13:00 2021-06-21 16:17:00 Emergency Shanika Joaquin [facility] 1.2.840.114 350.1.13.10 4.2.7.2.686 [id number] [facility] 2021-06-20 12:17:23 2021-06-20 13:00:14 [facility] Medical Office Building 1.2840.114 350.1.13.10 4.2.7.2.686 [id number] 370 [id number] [facility] 2021-06-20 12:20:00 2021-06-20 12:20:00 Outpatient Lila ANDRADE [facility] [id number] [facility] 2021-06-20 00:00:00 2021-06-20 00:00:00 Orders Only Doctor Unassigned, [place] [facility] 1.2.840.114 350.1.13.10 4.2.7.2.686 [id number] [facility] 2021-06-20 00:00:00 2021-06-20 00:00:00 Orders Only Doctor Unassigned, [place] [facility] 1..840.114 350.1.13.10 4.2.7.2.686 [id number] [facility] 2021-06-13 17:45:00 2021-06-13 17:45:00 Outpatient R JACQUELINE, [facility] [id number] [facility] 2021-06-13 17:08:31 2021-06-13 17:23:31 Laboratory Only Only, Ang Db Test Jacqueline [facility] Dante?Silvio betoannamarie Medical Office Building 1..840.114 350.1.13.10 4.2.7.2.686 [id number] [facility] 2021-04-14 08:30:00 2021-04-14 08:30:00 Outpatient CHRISTIANO NAIDU [facility] [id number] [facility] 2021-04-13 00:00:00 2021-04-13 00:00:00 Refill Jerod Aneglo [facility] Office Building One 1..840.114 350.1.13.10 4.2.7.2.686 [id number] [facility] 2021-04-12 12:00:26 2021-04-12 13:54:05 Urgent Care Provider, [facility] Krysta Mckeon [facility] Office Building One 1..840.114 350.1.13.10 4.2.7.2.686 [id number] [facility] 2021-04-12 12:00:00 2021-04-12 12:00:00 Outpatient KRYSTA ALARCON [facility] [id number] [facility] 2021-04-09 00:00:00 2021-04-09 00:00:00 OFFICE VISIT ESTAB PT LEVEL 4 STLMLC STLMLC [id number] [facility] 2021-04-01 00:00:00 2021-04-01 00:00:00 Patient Secure Msg Josette Cheung [facility] BUILDING 1.2.840.114 350.1.13.10 4.2.7.2.686 [id number] [facility] 2021-03-18 00:00:00 2021-03-18 00:00:00 (TEL) STLMLC STLMLC [id number] [facility] 2021-03-11 00:00:00 2021-03-11 00:00:00 (WEB) STLMLC STLMLC [id number] [facility] 2021-03-05 00:00:00 2021-03-05 00:00:00 OFFICE VISIT EST PT LEVEL 3 STLMLC STLMLC [id number] [facility] 2021-03-04 00:00:00 2021-03-04 00:00:00 Patient Secure Msg Josette Cheung [facility] 1.2.840.114 350.1.13.10 4.2.7.2.686 [id number] 134 [id number] [facility] 2021-02-04 00:00:00 2021-02-04 00:00:00 PREV VISIT EST AGE 18-39 STLMLC STLMLC [id number] [facility] 2021-01-05 00:00:00 2021-01-05 00:00:00 Outpatient STLMLC STLMLC [id number] [facility] 2020-12-30 00:00:00 2020-12-30 00:00:00 Patient Outreach Farzad Vazquez [facility] 1.2.840.114 350.1.13.10 4.2.7.2.686 [id number] [facility] 2020-12-03 00:00:00 2020-12-03 00:00:00 Patient Secure Msg Josette Cheung Roddy [facility] 1.2.840.114 350.1.13.10 4.2.7.2.686 [id number] 134 [id number] [facility] 2020-11-04 00:00:00 2020-11-04 00:00:00 Outpatient STLMLC STLMLC [id number] [facility] 2020-11-03 00:00:00 2020-11-03 00:00:00 Outpatient STLMLC STLMLC [id number] [facility] 2020-10-15 00:00:00 2020-10-15 00:00:00 Telephone [facility] 1.2.840.114 350.1.13.10 4.2.7.2.686 [id number] 134 [id number] 2020-10-15 00:00:00 2020-10-15 00:00:00 Telephone [facility] 1.2.840.114 350.1.13.10 4.2.7.2.686 [id number] 134 [id number] [facility] 2020-10-15 00:00:00 2020-10-15 00:00:00 Patient Secure Msg Doctor Unassigned, [place] [facility] 1.2.840.114 350.1.13.10 4.2.7.2.686 [id number] 134 [id number] [facility] 2020-10-14 00:00:00 2020-10-14 00:00:00 Case Management [facility] 1.2.840.114 350.1.13.10 4.2.7.2.686 [id number] 134 [id number] 2020-10-14 00:00:00 2020-10-14 00:00:00 Telephone Van[place]han, [facility] 1.2.840.114 350.1.13.10 4.2.7.2.686 [id number] 134 [id number] 2020-10-14 00:00:00 2020-10-14 00:00:00 Telephone [facility] 1.2.840.114 350.1.13.10 4.2.7.2.686 [id number] 134 [id number] [facility] 2020-10-14 00:00:00 2020-10-14 00:00:00 [facility] 1.2.840.114 350.1.13.10 4.2.7.2.686 [id number] 134 [id number] [facility] 2020-10-06 18:51:56 2020-10-06 23:59:00 Hospital Encounter Bridgette [facility] 1.2.840.114 350.1.13.10 4.2.7.2.686 [id number] 2020-10-06 18:51:56 2020-10-06 23:59:00 [facility] 1.2.840.114 350.1.13.10 4.2.7.2.686 [id number] [facility] 2020-10-06 00:00:00 2020-10-06 00:00:00 Outpatient R [facility] [id number] [facility] 2020-10-06 00:00:00 2020-10-06 00:00:00 Orders Only Doctor Unassigned, [place] [facility] 1.2.840.114 350.1.13.10 4.2.7.2.686 [id number] 009 [id number] 2020-10-06 00:00:00 2020-10-06 00:00:00 Orders Only Doctor Unassigned, [place] [facility] 1.2.840.114 350.1.13.10 4.2.7.2.686 [id number] [facility] 2020-10-01 00:00:00 2020-10-01 00:00:00 Orders Only Doctor Unassigned, [place] [facility] 1.2.840.114 350.1.13.10 4.2.7.2.686 [id number] [id number] 2020-10-01 00:00:00 2020-10-01 00:00:00 Orders Only Doctor Unassigned, [place] [facility] 1.2.840.114 350.1.13.10 4.2.7.2.686 [id number] [id number] [facility] 2020-09-30 10:09:30 2020-09-30 11:23:11 Office Visit Bridgette Christiano [facility] 1.2840.114 350.1.13.10 4.2.7.2.686 [id number] 134 [id number] 2020-09-30 10:09:30 2020-09-30 11:23:11 Office Visit Christiano Anegles [facility] 1.2840.114 350.1.13.10 4.2.7.2.686 [id number] [facility] 2020-09-30 10:00:00 2020-09-30 10:00:00 Outpatient KIMBERLYN GOLDBERG [facility] [id number] [facility] 2020-09-29 00:00:00 2020-09-29 00:00:00 Patient Secure Josette Cheung [facility] 1.2840.114 350.1.13.10 4.2.7.2.686 [id number] 134 [id number] [facility] 2020-09-29 00:00:00 2020-09-29 00:00:00 Patient Secure MsJosette Chang [facility] PROFESSIO NAL BUILDING 1.2.840.114 350.1.13.10 4.2.7.2.686 [id number] 134 [id number] [facility] 2020-09-29 00:00:00 2020-09-29 00:00:00 Patient Secure Josette Davis [facility] BUILDING 1.2.840.114 350.1.13.10 4.2.7.2.686 [id number] 134 [id number] [facility] 2020-09-25 00:00:00 2020-09-25 00:00:00 Outpatient STLMLC [facility] [id number] [facility] 2020-09-23 00:00:00 2020-09-23 00:00:00 Outpatient STLMLC ST[facility]C [id number] [facility] 2020-09-23 00:00:00 2020-09-23 00:00:00 Outpatient STLMLC ST[facility]C [id number] [facility] 2020-09-18 09:00:00 2020-09-18 09:00:00 Outpatient CHRISTIANO NAIDU [facility] [id number] [facility] 2020-09-18 00:00:00 2020-09-18 00:00:00 Outpatient STLMLC STLMLC [id number] [facility] 2020-09-17 00:00:00 2020-09-17 00:00:00 Patient Secure Josette Davis [facility] BUILDING 1.2.840.114 350.1.13.10 4.2.7.2.686 [id number] 134 [id number] [facility] 2020-09-03 00:00:00 2020-09-03 00:00:00 Outpatient STLMLC [facility]C [id number] [facility] 2020-09-02 00:00:00 2020-09-02 00:00:00 Outpatient STLMLC STLMLC [id number] [facility] 2020-09-02 00:00:00 2020-09-02 00:00:00 Outpatient STLMLC STLMLC [id number] [facility] 2020-07-21 00:00:00 2020-07-21 00:00:00 Outpatient STLMLC STLMLC [id number] [facility] 2020-07-07 00:00:00 2020-07-07 00:00:00 [facility] Building 1.2.840.114 350.1.13.10 4.2.7.2.686 [id number] 134 [id number] [facility] 2020-07-02 00:00:00 2020-07-02 00:00:00 Refill DavidshahidaChristiano painting [facility] Building 1.2.840.114 350.1.13.10 4.2.7.2.686 [id number] 134 [id number] [facility] 2020-06-30 00:00:00 2020-06-30 00:00:00 Refill Josette Cheung [facility] Building 1.2.840.114 350.1.13.10 4.2.7.2.686 [id number] 134 [id number] [facility] 2020-06-27 00:00:00 2020-06-27 00:00:00 Refill Josette Cheung [facility] Building 1.2.840.114 350.1.13.10 4.2.7.2.686 [id number] 134 [id number] [facility] 2020-06-27 00:00:00 2020-06-27 00:00:00 Refill Josette Cheung [facility] Building 1.2.840.114 350.1.13.10 4.2.7.2.686 [id number] 134 [id number] [facility] 2020-06-11 10:02:40 2020-06-11 10:54:19 Office Visit Bridgette Christiano [facility] Building 1.2.840.114 350.1.13.10 4.2.7.2.686 [id number] 134 [id number] [facility] 2020-06-11 09:45:00 2020-06-11 09:45:00 Outpatient CHRISTIANO NAIDU [facility] [id number] [facility] 2020-06-09 00:00:00 2020-06-09 00:00:00 Telephone Josette Cheung [facility] Building 1.2.840.114 350.1.13.10 4.2.7.2.686 [id number] 134 [id number] [facility] 2020-04-09 00:00:00 2020-04-09 00:00:00 Patient Secure Msg Josette Cheung [facility] BUILDING 1.2.840.114 350.1.13.10 4.2.7.2.686 [id number] 134 [id number] [facility] 2020-04-02 00:00:00 2020-04-02 00:00:00 Orders Only Doctor Unassigned, [place] [facility] 1.2840.114 350.1.13.10 4.2.7.2.686 [id number] [id number] [facility] 2020-03-27 00:00:00 2020-03-27 00:00:00 Refill Bridgette Christiano [facility] 1.2.840.114 350.1.13.10 4.2.7.2.686 [id number] 134 [id number] [facility] 2020-02-29 15:30:00 2020-02-29 15:30:00 Outpatient CHRISTIANO NAIDU [facility] [id number] [facility] 2020-02-29 09:13:27 2020-02-29 09:28:27 Telemedici ne Visit Bridgette Christiano [facility] Building 1.2.840.114 350.1.13.10 4.2.7.2.686 [id number] 134 [id number] [facility] 2020-02-27 11:00:00 2020-02-27 11:00:00 Outpatient R CHRISTIANO ANGELES [facility] [id number] [facility] 2020-02-07 00:00:00 2020-02-07 00:00:00 Patient Secure Msg Josette Cheung [facility] 1.840.114 350.1.13.10 4.2.7.2.686 [id number] [facility] 2020-01-30 12:12:00 2020-02-01 13:05:00 Hospital Encounter Josette Cheung [facility] 1.84.114 350.1.13.10 4.2.7.2.686 [id number] [facility] 2020-02-01 10:00:00 2020-02-01 10:00:00 Outpatient R JOSETTE CHEUNG [facility] [id number] [facility] 2020-01-30 16:00:00 2020-01-30 16:00:00 Outpatient R JOSETTE CHEUNG [facility] [id number] [facility] 2020-01-30 09:01:54 2020-01-30 10:12:03 Routine Visit Josette Cheung [facility] 1.840.114 350.1.13.10 4.2.7.2.686 [id number] 134 [id number] [facility] 2020-01-30 09:30:00 2020-01-30 09:30:00 Outpatient R JOSETTE CHEUNG [facility] [id number] [facility] 2020-01-30 00:00:00 2020-01-30 00:00:00 Orders Only Doctor Unassigned, [place] [facility] 1.84.114 350.1.13.10 4.2.7.2.686 [id number] [id number] [facility] 2020-01-29 00:00:00 2020-01-29 00:00:00 Patient Secure Msg Josette Cheung [facility] Donaldo Professio nal Building 1.2.840.114 350.1.13.10 4.2.7.2.686 [id number] 134 [id number] [facility] 2020-01-28 00:00:00 2020-01-28 00:00:00 Telephone Josette Cheung [facility] Donaldo Kellerio nal Building 1.2.840.114 350.1.13.10 4.2.7.2.686 [id number] 134 [id number] [facility] 2020-01-28 00:00:00 2020-01-28 00:00:00 Patient Secure Msg Josette Cheung [facility] 1.2.840.114 350.1.13.10 4.2.7.2.686 [id number] 134 [id number] [facility] 2020-01-25 00:00:00 2020-01-25 00:00:00 Telephone Josette Cheung [facility] Donaldo Kellreio nal Building 1.2.840.114 350.1.13.10 4.2.7.2.686 [id number] 134 [id number] [facility] 2020-01-25 00:00:00 2020-01-25 00:00:00 Patient Secure Msg oJsette Cheung [facility] Donaldo Schwabessio nal Building 1.2.840.114 350.1.13.10 4.2.7.2.686 [id number] 134 [id number] [facility] 2020-01-24 13:56:43 2020-01-24 14:11:43 Routine Visit Davidlance Christiano [facility] 1.2.840.114 350.1.13.10 4.2.7.2.686 [id number] 134 [id number] [facility] 2020-01-24 13:45:00 2020-01-24 13:45:00 Outpatient R CHRISTIANO ANGELES [facility] [id number] [facility] 2020-01-23 11:39:00 2020-01-23 13:10:00 Hospital Encounter Josette Cheung [facility] 1.2.840.114 350.1.13.10 4.2.7.2.686 [id number] [facility] 2020-01-17 00:00:00 2020-01-17 00:00:00 Patient Secure Msg Josette Cheung [facility] Professio nal Building 1.2.840.114 350.1.13.10 4.2.7.2.686 [id number] 134 [id number] [facility] 2020-01-16 15:23:25 2020-01-16 16:32:56 [facility] 1.2.840.114 350.1.13.10 4.2.7.2.686 [id number] 134 [id number] [facility] 2020-01-16 15:45:00 2020-01-16 15:45:00 Outpatient R JOSETTE CHEUNG [facility] [id number] [facility] 2020-01-16 15:26:06 2020-01-16 15:41:06 Long Line Teamster Visit 2, Adc Lab [facility] 1.2.840.114 350.1.13.10 4.2.7.2.686 [id number] [facility] 2020-01-16 00:00:00 2020-01-16 00:00:00 Orders Only Doctor Unassigned, [place] [facility] 1.2.840.114 350.1.13.10 4.2.7.2.686 [id number] [id number] [facility] 2020-01-08 09:51:46 2020-01-10 11:19:26 Long Line Teamster Visit Ultrasound, Elan Bragg [facility] 1..114 350.1.13.10 4.2.7.2.686 [id number] [facility] 2020-01-09 00:00:00 2020-01-09 00:00:00 Patient Secure Josette Davis [facility] 1.84.114 350.1.13.10 4.2.7.2.686 [id number] 134 [id number] [facility] 2020-01-08 10:00:00 2020-01-08 10:00:00 Outpatient P [facility] [id number] [facility] 2019-12-28 08:45:00 2019-12-28 08:45:00 Outpatient R BRIDGETTE CHRISTIANO [facility] [id number] [facility] 2019-12-28 08:07:16 2019-12-28 08:42:05 Routine Visit Bridgette Christiano [facility] 1.840.114 350.1.13.10 4.2.7.2.686 [id number] 134 [id number] [facility] 2019-12-27 13:45:00 2019-12-27 13:45:00 Outpatient R BRIDGETTE [facility] [id number] [facility] 2019-12-25 00:00:00 2019-12-25 00:00:00 Telephone Bridgette Christiano [facility] 1.84.114 350.1.13.10 4.2.7.2.686 [id number] 134 [id number] [facility] 2019-12-25 00:00:00 2019-12-25 00:00:00 Orders Only Doctor Unassigned, [place] [facility] 1.114 350.1.13.10 4.2.7.2.686 [id number] [id number] [facility] 2019-12-13 15:56:59 2019-12-13 16:41:05 Routine Visit [facility]ette Che[facility] 1.840.114 350.1.13.10 4.2.7.2.686 [id number] 134 [id number] [facility] 2019-12-13 16:00:00 2019-12-13 16:00:00 Outpatient R CHEUNGJOSETTE [facility] [id number] [facility] 2019-12-13 13:15:00 2019-12-13 13:15:00 Outpatient R DEB CHEUNGEN [facility] [id number] [facility] 2019-12-03 13:30:00 2019-12-03 13:30:00 [facility] [id number] [facility] 2019-12-03 12:34:57 2019-12-03 13:27:03 Routine Visit Bridgette Christiano [facility] Building 1.840.114 350.1.13.10 4.2.7.2.686 [id number] 134 [id number] [facility] 2019-12-03 00:00:00 2019-12-03 00:00:00 Orders Only Doctor Unassigned, [place] [facility] 1..114 350.1.13.10 4.2.7.2.686 [id number] [id number] [facility] 2019-11-30 00:00:00 2019-11-30 00:00:00 Telephone [facility]ung [facility] 1.84.114 350.1.13.10 4.2.7.2.686 [id number] 134 [id number] [facility] 2019-11-27 00:00:00 2019-11-27 00:00:00 Refill Cheung, Josette Cam [facility] Building 1.2.840.114 350.1.13.10 4.2.7.2.686 [id number] 134 [id number] [facility] 2019-11-20 00:00:00 2019-11-20 00:00:00 Patient Secure Msg Josette Cheung [facility] Building 1.2.840.114 350.1.13.10 4.2.7.2.686 [id number] 134 [id number] [facility] 2019-11-20 00:00:00 2019-11-20 00:00:00 Patient Secure Msg Josette Cheung [facility] 1.2.840.114 350.1.13.10 4.2.7.2.686 [id number] 134 [id number] [facility] 2019-11-19 08:42:18 2019-11-19 08:57:18 Long Line Teamster Visit Pob, Adc Lab Main Josette Cheung [facility] 1.2.840.114 350.1.13.10 4.2.7.2.686 [id number] [facility] 2019-11-19 00:00:00 2019-11-19 00:00:00 Orders Only Doctor Unassigned, [place] [facility] 1.2.840.114 350.1.13.10 4.2.7.2.686 [id number] [id number] [facility] 2019-11-05 13:21:14 2019-11-05 15:07:44 Routine Visit Josetet Cheung [facility] 1.2.840.114 350.1.13.10 4.2.7.2.686 [id number] 134 [id number] [facility] 2019-11-03 14:43:22 2019-11-03 15:52:00 Emergency Trevor John [facility] 1.2.840.114 350.1.13.10 4.2.7.2.686 [id number] [facility] 2019-11-03 00:00:00 2019-11-03 00:00:00 Orders Only Doctor Unassigned, [place] [facility] 1.2.840.114 350.1.13.10 4.2.7.2.686 [id number] [id number] [facility] 2019-11-02 00:00:00 2019-11-02 00:00:00 Refill [facility] Building 1.2840.114 350.1.13.10 4.2.7.2.686 [id number] 134 [id number] [facility] 2019-11-01 07:51:13 2019-11-01 09:15:00 Hospital Encounter Josette Cheung Gabino Alvarez [facility] 1.2840.114 350.1.13.10 4.2.7.2.686 [id number] [facility] 2019-11-01 00:00:00 2019-11-01 00:00:00 Orders Only Doctor Unassigned, [place] [facility] 1.2840.114 350.1.13.10 4.2.7.2.686 [id number] [id number] [facility] 2019-10-30 00:00:00 2019-10-30 00:00:00 Patient Secure Msg Josette Cheung [facility] ED Professio [facility] Building 1.2840.114 350.1.13.10 4.2.7.2.686 [id number] 134 [id number] [facility] 2019-10-09 00:00:00 2019-10-09 00:00:00 Patient Secure Msg Josette Cheung [facility] ED Professio nal Building 1.2840.114 350.1.13.10 4.2.7.2.686 [id number] 134 [id number] [facility] 2019-06-15 09:41:01 2019-06-15 10:37:54 Nurse Visit Nurse, [facility] Josette Cheung [facility] Jose Chong [facility] 1.2.840.114 350.1.13.10 4.2.7.2.686 [id number] 134 [id number] [facility] 2019-06-15 00:00:00 2019-06-15 00:00:00 Orders Only Doctor Unassigned, [place] [facility] 1..840.114 350.1.13.10 4.2.7.2.686 [id number] [facility] 2018-09-18 16:15:00 2018-09-18 16:15:00 Outpatient [facility] [id number] [facility] 2018-08-25 08:45:00 2018-08-25 08:45:00 Appointmen t; JOEL ODOM M.D. JOEL ODOM M.D. [facility] [id number] [facility] 2018-04-25 10:15:00 2018-04-25 10:15:00 [facility]patient [facility] [id number] [facility] 2018-04-20 16:28:00 2018-04-20 16:28:00 Outpatient [facility] [id number] [facility] 2018-04-18 09:45:00 2018-04-18 09:45:00 Outpatient [facility] [id number] [facility] 2018-04-11 11:30:00 2018-04-11 11:30:00 Outpatient [facility] [id number] [facility] 2018-04-05 10:05:00 2018-04-05 10:05:00 Outpatient [facility] [id number] [facility] 2018-04-04 11:15:00 2018-04-04 11:15:00 Outpatient [facility] [id number] [facility] 2018-03-30 08:43:00 2018-03-30 08:43:00 Outpatient [facility] [id number] [facility] 2018-03-28 11:15:00 2018-03-28 11:15:00 Outpatient [facility] [id number] [facility] 2018-03-14 11:15:00 2018-03-14 11:15:00 Outpatient [facility] [id number] [facility] 2018-03-09 09:30:00 2018-03-09 09:30:00 [facility]patient [facility] [id number] [facility] 2018-02-27 15:43:00 2018-02-27 15:43:00 [facility]patient [facility] [id number] [facility] 2018-02-21 15:16:00 2018-02-21 15:16:00 [facility]patient [facility] [id number] [facility] 2018-02-16 10:00:00 2018-02-16 10:00:00 [facility]patient [facility] [id number] [facility] 2018-02-07 11:15:00 2018-02-07 11:15:00 [facility]patient [facility] [id number] [facility] 2018-02-06 09:40:00 2018-02-06 09:40:00 [facility]patient [facility] [id number] [facility] 2018-01-27 09:16:00 2018-01-27 09:16:00 [facility] [id number] [facility] 2018-01-18 10:00:00 2018-01-18 10:00:00 [facility]patient [facility] [id number] [facility] 2018-01-13 09:26:00 2018-01-13 09:26:00 [facility] [id number] [facility] 2018-01-03 09:00:00 2018-01-03 09:00:00 [facility] [id number] [facility] Results Test Description Test Time Test Comments Results Resul t Comments Source XR Ankle 3+ vw left 2024-10-25 18:18:12 ORDERING PHYSICIAN: ALEJANDRO PFEIFFER. HISTORY: fall TECHNIQUE: 3 views of left foot, and 3 views of left ankle COMPARISON: None. FINDINGS: The alignment is anatomic. Joint spaces are maintained. No fracture isidentified. There is trace plantar calcaneal spurring. A prominent ostrigonum is noted. Soft tissue shadows are normal. [facility] XR Foot 3+ vw left 2024-10-25 18:18:12 ORDERING PHYSICIAN: ALEJANDRO PFEIFFER. HISTORY: fall TECHNIQUE: 3 views of left foot, and 3 views of left ankle COMPARISON: None. FINDINGS: The alignment is anatomic. Joint spaces are maintained. No fracture isidentified. There is trace plantar calcaneal spurring. A prominent ostrigonum is noted. Soft tissue shadows are normal. [facility] [id number]-[id number] 01:41:54* Test Item Value Reference Range Interpretation Comme nts NT-proBNP (test code = 94167-4) <=125 Lab Interpretation (test cod e = 32489-1) Normal [facility]Fbzqj4922-42-58 01:37:01* Test Item Value Reference Range Interpretation Comments D-DIMER (test code = 8721713912) See_Comment [Automated message] The system which generated [...] a diagnosis. Lab Interpretation (test code = 90492-3) Normal [facility] [id number] 01:35:39* Test Item Value Reference Range Interpretation Comme nts TROPONIN I (test code = 6482577677) 0.002 ng/mL <=0.034 BATSHEVA (test code = [...] of biotin. Lab Interpretation (test code = 05492-1) Normal [facility]. Metabolic Panel (58629)2024-07-04 01:24:18* Test Item Value Reference Range Interpretation Comme nts NA (test code = 1471445536) 138 mmol/L 135-145 K (test code = 7848894634) 4.1 mmol/L 3.5-5.0 CL (test code = 3703037851) 105 mmol/L 98-108 CO2 TOTAL (test code = 2124845748) 27 mmol/L 23-31 AGAP (test code = 8982505075) 6 2-16 BUN (test code = 9187982429) 14 mg/dL 7-23 GLUCOSE (test code = 3123584139) 97 mg/dL 70-110 CREATININE (test code = 2160-0) 0.96 mg/dL 0.50-1.04 TOTAL BILI (test code = 8851712669) 0.6 mg/dL 0.1-1.1 CALCIUM (test code = 2878012434) 9.2 mg/dL 8.6-10.6 T PROTEIN (test code = 9621519381) 7.9 g/dL 6.3-8.2 ALBUMIN (test code = 0857508287) 4.5 g/dL 3.5-5.0 ALK PHOS (test code = 5016063146) 72 U/L 34-122 ALTv (test code = 1742-6) 25 U/L 5-35 AST(SGOT) (test code = 2093374280) 20 U/L 13-40 eGFR (test code = 54752-5) 81.3 mL/min/1.73m2 CKD-EPI eGFR (20 21). Assuming creatinine has been stable day-to-day for at least three months, the eGFR indicates Category G2 (60 - 89 mL/min/1.73 m2) [facility] with [id number] 01:12:59* Test Item Value Reference Range Interpretation [...] g/dL 31.6-35.1 L RDW-SD (test code = 10830-1) 45.7 fL 39.0-49.9 RDW-CV (test code = 788-0) 13.3 % 12.0-15.5 PLT (test code = 777-3) 264 166-358 MPV (test code = 70998-4) 9.6 fL 9.5-12.9 NRBC/100 WBC (test code = 0019338924) 0.0 0.0-10.0 NRBC x10^3 (test code = 5347896933) See_Comment [Automated messa ge] The system which generated this result transmitted reference range: 10*3/?L. The reference range was not used to interpret this result as normal/abnormal. GRAN MAT (NEUT) % (test code = 770-8) 66.5 % IMM GRAN % (test code = 1429218592) 0.30 % LYMPH % (test code = 736-9) 21.6 % MONO % (test code = 5905-5) 9.0 % EOS % (test code = 713-8) 2.0 % BASO % (test code = 706-2) 0.6 % GRAN MAT x10^3(ANC) (test code = 8550925248) 4.28 10*3/uL 1.88-7.09 IMM GRAN x10^3 (test code = 4949664480) 0.00-0.06 LYMPH x10^3 (test code = 731-0) 1.39 10*3/uL 1.32-3.29 MONO x10^3 (test code = 742-7) 0.58 10*3/uL 0.33-0.92 EOS x10^3 (test code = 711-2) 0.13 10*3/uL 0.03-0.39 BASO x10^3 (test code = 704-7)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
[2025-01-12 11:07] LABS: Specific Gravity 1.024 (1.005-1.030)
[2025-01-12 11:08] LABS: Specific Gravity 1.024 (1.005-1.030); Sqamous Epithelial <5 /HPF (None Seen); Urine Bacteria <20 /HPF (<20); Urine Bilirubin NEGATIVE (Negative); Urine Blood Negative (Negative); Urine Clarity Extremely Turbid (Clear); Urine Color Light-Yellow (Yellow); Urine Culture Reflex Order NOT NEEDED; Urine Glucose NEGATIVE (Negative); Urine Ketones TRACE (Negative); Urine Microscopic Reflex YN ORDER UMIC; Urine Mucus Slight /HPF (None Seen); Urine Nitrite NEGATIVE (Negative); Urine Protein NEGATIVE (Negative); Urine RBC None Seen /HPF (None Seen); Urine Urobilinogen Normal (Normal); Urine WBC <5 /HPF (<5); Urine pH 7.5 (5.0-7.0)
[2025-01-12] MEDS ORDERED: NA CHLORIDE 0.9% 1,000 ML ONE (11:33)
[2025-01-12] MEDS ORDERED: KETOROLAC 30 MG/ML INJ ONE (11:33)
[2025-01-12] MEDS ORDERED: ONDANSETRON 4 MG/2 ML VIAL ONE (11:33)
[2025-01-12 11:49] LABS: Absolute Eosinophils 0.1 K/uL (0-0.5); Absolute Lymphocytes (CBC) 1.5 K/uL (0.7-4.9); Absolute Monocytes 0.4 K/uL (0.1-1.3); Absolute Neutrophil 4.4 K/uL (1.8-8.0); Basophils % 0.7 % (0-1.3); Eosinophils % 1.4 % (0-4.4); Hematocrit 38.4 % (36.0-45.0); Hemoglobin 13.1 g/dL (12.0-15.0); Lymphocytes % 22.9 % (15.3-44.8); MCH 29.9 pg (27.0-35.0); MCHC 34.1 g/dL (32.0-36.0); MCV 87.6 fL (80-100); Monocytes % 6.9 % (3.3-12.3); Neutrophils % 68.1 % (41.7-73.7); Nucleated Red Blood Cells % 0.1 % (0-0); Platelets 201 thou/uL (152-406); RBC Red Blood Cell Count 4.39 M/uL (3.86-4.86); Red Cell Distribution Width 13.5 % (12.1-15.2)
[2025-01-12 12:05] LABS: Albumin 3.3 g/dL (3.4-5.0); Bilirubin Total 0.5 mg/dL (0.2-1.0); Globulin 3.4 g/dL (2.3-3.5); Protein, Total 6.7 g/dL (6.4-8.2)
--- NOTE | 2025-01-12 12:34 | RAD REPORT ---
EXAMINATION: CT ABDOMEN AND PELVIS WITH CONTRAST CLINICAL INDICATION: ABD PAIN TECHNIQUE: CT abdomen and pelvis was performed, after the administration of IV contrast, as per [facility]. Axial, sagittal and coronal reconstructions were obtained. One or more of the following dose reduction techniques were used: Automated exposure control, adjustment of the mA and k V according to patient size, and iterative reconstruction. Unless otherwise specified, incidental findings do not require dedicated imaging follow-up. COMPARISON: No prior exam. FINDINGS: LOWER CHEST: The visualized lung bases are clear. LIVER: Mild fatty liver is present. No focal lesion or biliary dilatation is seen. Grossly unremark able gallbladder. SPLEEN: Normal size. No focal lesion. PANCREAS: No mass, ductal dilation, or jayda-pancreatic fluid. ADRENALS: Normal; no mass. KIDNEYS: Normal size and contour. No hydronephrosis. Punctate calculus inferior calyx right kidney. GASTROINTESTINAL TRACT: No evidence of free air, significant intra-abdominal free fluid, bowel obstru ction or abscess. APPENDIX: Normal appendix. LYMPH NODES: No lymphadenopathy. MUSCULOSKELETAL: No acute or suspicious osseous abnormality. ADDITIONAL FINDINGS: Moderate stool retained in the vault. IMPRESSION: No acute or concerning abnormalities seen in the abdomen or pelvis.
--- NOTE | 2025-01-12 12:39 | EDPHYS ---
Physician Documentation [facility] Name: Nicolasa Rose Age: 29 yrs Sex: Female : 1995 Arrival Date: 01/12/2025 Time: 10:31 Bed 4 Private MD: ED Physician Ceci Langford HPI: 01/12 10:43 This 29 yrs old Female presents to ER via Ambulatory with complaints of Abdominal Pain. sb4 10:43 The patient presents with abdominal pain in the lower abdomen. Onset: The sb4 symptoms/episode began/occurred yesterday. The symptoms do not radiate. Associated signs and symptoms: Pertinent positives: nausea. Patient reports right lower abdominal pain since yesterday. States the pain does not radiate. Reports associated nausea. No vomiting, constipation, or diarrhea. unknown last menstrual cycle. States that she had her Nexplanon removed about a month ago. Denies any urinary symptoms, abnormal vaginal bleeding, or vaginal discharge. Last BM yesterday. 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 - Infectious Disease History:: Denies. - Social history:: Smoking status: Patient denies any tobacco usage or history of. ROS: 10:43 Constitutional: Negative for fever, chills, and weight loss, sb4 10:43 Abdomen/GI: Positive for abdominal pain, nausea, 10:43 All other systems are negative, Exam: 10:43 Head/Face: Normocephalic, atraumatic. Eyes: Extra-ocular motions intact. Periorbital sb4 areas with no swelling, redness, or edema. ENT: Mucous membranes moist. Cardiovascular: Regular rate and rhythm with a normal S1 and S2. Respiratory: No increased work of breathing, no retractions or nasal flaring. Abdomen/GI: Soft, non-tender, no distension. Skin: Warm, dry with normal turgor. Normal color with no rashes, no lesions, and no evidence of cellulitis. 10:43 Constitutional: The patient appears in no acute distress, alert, awake, obese, Vital Signs: 10:41 BP 120 / 69; Pulse 77; Resp 16; Temp 98.2(TE); Pulse Ox 100% on R/A; Weight 127.46 kg; iw Height 5 ft. 5 in. ; Pain 6/10; 13:17 BP 118 / 72; Pulse 71; Resp 18; Temp 98.4; Pulse Ox 99% on R/A; ph 10:41 Body Mass Index 46.76 (127.46 kg, 165.1 cm) iw 10:41 Pain Scale: Adult iw MDM: 10:37 Medical Screening Exam initiated sb4 10:45 Differential diagnosis: appendicitis, Dysmenorrhea, Ectopic , Endometriosis, sb4 non-specific abd pain, urinary tract infection, Ovarian cyst, constipation. 12:38 Data reviewed: vital signs, nurses notes, lab test result(s), radiologic studies, I sb4 have discussed the patient's presentation/case with the attending Emergency Department Physician; and as a result, I will discharge patient. Counseling: I had a detailed discussion with the patient and/or guardian regarding the historical points, exam findings, and any diagnostic results supporting the discharge/admit diagnosis, lab results, radiology results, the need for outpatient follow up, for definitive care, to return to the emergency department if symptoms worsen or persist or if there are any questions or concerns that arise at home. 01/12 10:43 Order name: CBC with Diff; Complete Time: 11:56 4 01/12 10:43 Order name: CMP; Complete Time: 12:06 [facility] 01/12 10:43 Order name: Lipase; Complete Time: 12:06 [facility] 01/12 10:43 Order name: Test, Urine; Complete Time: 11:13 4 01/12 10:43 Order name: Urinalysis w/ reflexes; Complete Time: 11:13 4 01/12 10:43 Order name: CT Abd/Pelvis - IV Contrast Only; Complete Time: 12:35 4 01/12 10:43 Order name: IV Saline Lock; Complete Time: 11:46 sb4 01/12 10:43 Order name: Labs collected and sent; Complete Time: 11:46 4 01/12 12:36 Order name: PO challenge; Complete Time: 13:18 sb4 Administered Medications: 11:46 Drug: TORadol - Ketorolac IVP 15 mg IVP once Route: IVP; Site: right antecubital; ph 13:17 Follow up: Response: No adverse reaction ph 11:46 Drug: Ondansetron IVP 4 mg IVP once; over 2 minutes Route: IVP; Site: right antecubital;ph 13:17 Follow up: Response: No adverse reaction; Nausea is decreased ph 11:46 Drug: NS 0.9% IV 1000 ml IV at 1 bolus Per protocol; to be given as a bolus over 60 ph minutes Route: IV; Rate: 1 bolus; Site: right antecubital; 13:17 Follow up: Response: No adverse reaction; IV Status: Completed infusion; IV Intake: ph 1000ml Disposition Summary: 01/12/25 12:38 Discharge Ordered Notes: Location: Home sb4 Problem: new sb4 Symptoms: have improved sb4 Condition: Stable sb4 Diagnosis - Lower abdominal pain, unspecified sb4 Followup: sb4 - With: Private Physician - When: 1 week - Reason: Recheck today's complaints, Re-evaluation by your physician Discharge Instructions: - Discharge Summary Sheet sb4 - Constipation, Adult, Wxso-in-Yery sb4 - Abdominal Pain, Adult, [id number] sb4 Forms: - Patient Portal Instructions sb4 - Leadership Thank You Letter sb4 Signatures: Dispatcher [employer] Nallely Negro RN RN iw Daisy Marcelino RN RN Cindy Carpenter, PACheng PACheng sb4 Corrections: (The following items were deleted from the chart) 10:44 10:43 CBC+H.LAB.BRZ ordered. EDMS EDMS 10:44 10:43 COMPREHENSIVE METABOLIC PANEL+C.LAB.BRZ ordered. EDMS EDMS 10:44 10:43 LIPASE+C.LAB.BRZ ordered. EDMS EDMS 10:44 10:43 Test, Urine+UC.LAB.BRZ ordered. EDMS EDMS 10:44 10:43 Urinalysis+U.LAB.BRZ ordered. EDMS EDMS 10:44 10:44 Abdomen Pelvis W Con+CT.RAD.BRZ ordered. EDMS EDMS 10:45 10:45 Differential diagnosis: appendicitis, Dysmenorrhea, Ectopic , sb4 Endometriosis, non-specific abd pain, urinary tract infection, Ovarian cyst sb4
--- NOTE | 2025-01-12 12:39 | ER ---
[facility] Name: Nicolasa Rose Age: 29 yrs Sex: Female : 1995 Arrival Date: 01/12/2025 Time: 10:31 Bed 4 Private MD: Diagnosis: Lower abdominal pain, unspecified Presentation: 01/12 10:41 Chief complaint: Patient states: lower abd pain for a few days and nauseated. iw Coronavirus screen: At this time, the client does not indicate any symptoms associated with coronavirus-19. Ebola Screen: No symptoms or risks identified at this time. Initial Sepsis Screen: Does the patient meet any 2 criteria? No. Patient's initial sepsis screen is negative. Does the patient have a suspected source of infection?. Risk Assessment: Do you want to hurt yourself or someone else? Patient reports no desire to harm self or others. 10:41 Method Of Arrival: Ambulatory iw 10:42 Onset of symptoms was January 08, 2025. 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 - Infectious Disease History:: Denies. - Social history:: Smoking status: Patient denies any tobacco usage or history of. Screenin:43 [facility] ED Fall Risk Assessment (Adult) History of falling in the last 3 months, ph including since admission No falls in past 3 months (0 pts) Confusion or Disorientation No (0 pts) Intoxicated or Sedated No (0 pts) Impaired Gait No (0 pts) Mobility Assist Device Used No (0 pt) Altered Elimination No (0 pt) Score/Fall Risk Level 0 - 2 = Low Risk Oriented to surroundings, Maintained a safe environment, Hourly rounding (assess needs \T\ fall precautionary measures) done. Abuse screen: Denies threats or abuse. Denies injuries from another. Nutritional screening: No deficits noted. Tuberculosis screening: No symptoms or risk factors identified. Assessment: 11:44 General: Appears in no apparent distress. comfortable, Behavior is calm, cooperative, ph appropriate for age. Pain: Complains of pain in suprapubic area, right lower quadrant and left lower quadrant. Neuro: Level of Consciousness is awake, alert, obeys commands, Oriented to person, place, time, situation. Cardiovascular: Capillary refill < 3 seconds in bilateral fingers Patient's skin is warm and dry. Respiratory: Airway is patent Respiratory effort is even, unlabored. GI: Bowel sounds present X 4 quads. Abd is soft and non tender X 4 quads. Reports lower abdominal pain, nausea. : Reports cramping, Denies discharge, vaginal bleeding. Derm: Skin is pink, warm \T\ dry. Musculoskeletal: Circulation, motion, and sensation intact. Range of motion: intact in all extremities. Vital Signs: 10:41 BP 120 / 69; Pulse 77; Resp 16; Temp 98.2(TE); Pulse Ox 100% on R/A; Weight 127.46 kg; iw Height 5 ft. 5 in. ; Pain 6/10; 13:17 BP 118 / 72; Pulse 71; Resp 18; Temp 98.4; Pulse Ox 99% on R/A; ph 10:41 Body Mass Index 46.76 (127.46 kg, 165.1 cm) iw 10:41 Pain Scale: Adult iw ED Course: 10:35 Patient arrived in ED. mr 10:36 Cindy Vizcaino PA-C is PHCP. sb4 10:36 Ceci Langford MD is Attending Physician. sb4 10:42 Triage completed. iw 10:42 Arm band placed on. iw 11:27 Daisy Marcelino, RN is Primary Nurse. ph 11:44 Patient has correct armband on for positive identification. Bed in low position. Call ph light in reach. Side rails up X 1. Pulse ox on. NIBP on. Door closed. Noise minimized. Lights dimmed. Warm blanket given. 11:45 Initial lab(s) drawn, by me, sent to lab. Inserted saline lock: 22 gauge in right ph antecubital area, using aseptic technique. Blood collected. Flushed with 10 mL NS. 11:46 CBC with Diff Sent. ph 11:46 CMP Sent. ph 11:46 Lipase Sent. ph 12:12 CT Abd/Pelvis - IV Contrast Only In Process Unspecified. EDMS 13:16 No provider procedures requiring assistance completed. IV discontinued, intact, ph bleeding controlled, No redness/swelling at site. Pressure dressing applied. Administered Medications: 11:46 Drug: TORadol - Ketorolac IVP 15 mg IVP once Route: IVP; Site: right antecubital; ph 13:17 Follow up: Response: No adverse reaction ph 11:46 Drug: Ondansetron IVP 4 mg IVP once; over 2 minutes Route: IVP; Site: right antecubital;ph 13:17 Follow up: Response: No adverse reaction; Nausea is decreased ph 11:46 Drug: NS 0.9% IV 1000 ml IV at 1 bolus Per protocol; to be given as a bolus over 60 ph minutes Route: IV; Rate: 1 bolus; Site: right antecubital; 13:17 Follow up: Response: No adverse reaction; IV Status: Completed infusion; IV Intake: ph 1000ml Medication: 11:45 VIS not applicable for this client. ph Intake: 13:17 IV: 1000ml; Total: 1000ml. ph Outcome: 12:38 Discharge ordered by MD. gonzalez 13:17 Discharged to home ambulatory, ph 13:17 Condition: good 13:17 Discharge instructions given to patient, Instructed on discharge instructions, follow up and referral plans. Demonstrated understanding of instructions, follow-up care, 13:18 Patient left the ED. ph Signatures: Dispatcher [employer] EDSC Lamar Caban Reg Reg mr Williams, Irene, RN Daisy Gregory RN RN ph Cindy Vizcaino, THELMA PACheng sb4 Corrections: (The following items were deleted from the chart) 10:42 10:41 Pulse 77bpm; Resp 16bpm; Pulse Ox 100% RA; iw iw 11:10 10:41 BP 120 / 69; Pulse 77bpm; Resp 16bpm; Pulse Ox 100% RA; 127.46 kg; Height 5 ft. 5 iw in.; BMI: 46.7; Pain 6/10, Adult; iw
[2025-01-12 13:37] VITALS: BP 118/72; TEMP 98.4; O2SAT 99
== END 2025-01-12 13:18 | disposition home or self-care (01) ==
LOC: ER 10:31
DX: R10.30 Lower abdominal pain, unspecified (principal); R11.0 Nausea
CPT/HCPCS: 96361; 85025; 81001; 36415; 81025; 83690; 80053; 74177; 96375; 96374; 99284; J2405; J7030

== ENCOUNTER 2025-01-24 10:37 | Emergency (ER) | payer OTHER ==
--- OUTSIDE RECORDS SUMMARY | 2025-01-24 10:52 | XMS REPORT | Continuity of Care Document ---
Author Name Unknown Address [address] [facility] [address] [place] [address] 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 Name Role Phone LOREN HERNANDEZ Primary Care Physician Unavailab Fernandez Kellogg Attending Clinician Unavailable KIMBERLYN SR Attending Clinician Unavailable SANTY YARBROUGH Attending Clinician Unavaila ble [id number] Attending Clinician Unavailable LOREN HERNANDEZ Attending Clinician Unavailable DEBBIE RUBIN Attending Clinician Unavailable KIMBERLYN SR Attending Clinician Unavailable MADHAVI COBB Attending Clinician Unavailab ALEJANDRO Méndez Attending Clinician Unavailable Alejandro Longoria Attending Clinician [phone] VINI GEE Attending Clinician Unavailab nilda [facility] [place] Attending Clinician Unavailpatricia STRAUSS MD Attending Clinician Unavailab TIFFANY Miles Attending Clinician Un available LEONOR MUELLER Attending Clinician Unavailable Leonor Mueller MD Attending Clinician [phone] Unknown, Attending Attending Clinician Unavailab JARRETT Garcia Attending Clinician Unavailable JARRETT NAVARRO Attending Clinician Unavailable Vincjusten SENIOR ENERGY MARKET COORDINATOR, Jarrett Attending Clinician [phone] Ebrahilori SENIOR ENERGY MARKET COORDINATOR, Delvis Attending Clinician [phone] EBDELVIS REHMAN Attending Clinician Unavailable LAB90 Attending Clinician Unavailable ESTHER GARZA Attending Clinician Unavailab ESTHER Lynch Attending Clinician Unavailab Esther Lynch DO Attending Clinician [phone] KRYSTA BARRETO Attending Clinician UnaKAIDEN Mai Attending [...] Attending Clinician Unavailable Gildardo Cohen Attending Clinician [phone] ELEN BENEDICT Attending Clinician Unavailable Elen Benedict NP Attending Clinician [phone] OMAGVIRGINIEI OMAYEMI Attending Clinician Unavailabl e Omaghomi SENIOR ENERGY MARKET COORDINATOR, Omayemi Attending Clinician [phone] Unknown, Attending Attending Clinician Unavailab le Doctor Unassigned, [place] Attending Clinician U NICOLE Gaspar Attending Clinician Unavailable KORTNEY TREJO Attending Clinician Unavaila KORTNEY Huertas Attending Clinician UnavailSydnie Leblanc Attending Clinician [phone] SYDNIE ANDRADE Attending Clinician Unavailable Josette Cheung MD Attending Clinician [phone] Shayy Gonzales MA Attending Clinician Unavailable Kristen III, PLASTER FOREMAN, R Attending Clinician [phone] Leandra Wyatt MD Attending Clinician [phone] Po, [facility] Main Attending Clinician UnavailJoanne Hidalgo RN Attending Clinician Unavailable Ultrasound, [facility] Attending Clinician Unavailsherif Arroyo MD, Meche Gale Attending Clinician + MECHE ARROYO Attending Clinician Jj Alberto RN, Migdalia Attending Clinician UnavailALESSANDRO Akins Attending Clinician ALESSANDRO Barrow Attending Clinician Ross Mcqueen MD, Jarvis Jain Attending Clinician [phone] Dena Manrique RN Attending Clinician Unavailable JARVIS MCQUEEN Attending Clinician Unavailable Alireza KIM, Moriah Alfredo Attending Clinician +[phone] SAM BRADLEY Attending Clinician Unavailable Sam Bradley MD Attending Clinician [phone] , [facility] Us Room Attending Clinician UnavailMigdalia Morelos MD Attending Clinician +[phone] MIGDALIA VAZQUEZ Attending Clinician Unavailable MIGDALIA VAZQUEZ Attending Clinician Unavailable Truong Leo RN Attending Clinician Cecy Lanier RN Attending Clinician Unavailable Leonor Mueller MD Attending Clinician [phone] Lab, [facility] Attending Clinician Unavailable ELPIDIO MARTINEZ Attending Clinician Unavailable Elpidio Leos Attending Clinician [phone] KAI LARKIN Attending Clinician Unavailable Kai Barrera Attending Clinician [phone] Poppy Ceron PA-C Attending Clinician [phone] POPPY CERON Attending Clinician Unavailable John Cain RN Attending Clinician Unavailab NIXON Barroso Attending Clinician Unavailable Nixon Perdue DO Attending Clinician [phone] Nydia Vera Attending Clinician [phone] NYDIA PHILLIPS Attending Clinician UnavailEZRA Moore Attending Clinician Unavailable ELLE SAMUELS Attending Clinician Unavailable Elle Samuels PA-C Attending Clinician Unavailpatricia Mireles RN, [place] Phan Attending Clinician Unavailab Shanika Williamson Attending Clinician [phone] Ebrahim SENIOR ENERGY MARKET COORDINATOR, Delvis Attending Clinician [phone] Only, [facility] Db Test Attending Clinician Unavailabl CHRISTIANO Astorga Attending Clinician Unavailable Jerod Angelo MD Attending Clinician [phone] Provider, [facility] Attending Clinician Un available Krysta Leger Attending Clinician [phone] KRYSTA MCKEON Attending Clinician Unavailab Farzad Medrano DO Attending Clinician [phone] Christiano Angeles PA-C Attending Clinician [phone] 2, [facility] Attending Clinician Unavailable Elan Denny MD Attending Clinician +[phone] Trevor John MD Attending Clinician [phone] Gabino Alvarez MD Attending Clinician [phone] Nurse, [facility] Attending Clinician Un available JOEL ODOM M.D. Attending Clinician U KIMBERLYN Chou Admitting Clinician Unavailable JOSETTE CHEUNG Admitting Clinician Unavailable ALEJANDRO PFEIFFER Admitting Clinician Unavailable JARRETT NAVARRO Admitting Clinician Unavailable FRACISCO NAGY Admitting Clinician Unavailab Gildardo Gross Admitting Clinician Unavailable ELEN BENEDICT Admitting Clinician Unavailable Josette Cheung MD Admitting Clinician [phone] Kimberlyn Sr MD Admitting Clinician [phone] ALESSANDRO STEWART Admitting Clinician SAM Braun Admitting Clinician Unavailable Sam Bradley MD Admitting Clinician +[phone] ELPIDIO MARTINEZ Admitting Clinician Unavailable KORTNEY TREJO Admitting Clinician Unavaila NIXON Morales Admitting Clinician Unavailable KAI LARKIN Admitting Clinician Unavailable Gabino Alvarez MD Admitting Clinician + [phone] Payers Payer Name Policy Type Policy Number Effective Date Expirati on Date Source [facility] [id number] 2019 00:00:00 [facility]AY FOCUS 9 [id number] 2024 00:00:00 [facility] [place] [facility] [id number] 2024 00:00:00 [employer] MP [facility] SIL[facility] 5 O PHLEBOTOMIST 94 ON 9 [id number] 2024 00:00:00 [employer] W/ ANAT [facility] OOO [id number] 2024 00:00:00 2024 00:00:00 [facility] [id number] 2020 00:00:00 [facility] [id number] 2020 00:00:00 [facility] [id number] 2020 00:00:00 [facility] [id number] 2020 00:00:00 [facility] [id number] 2020 00:00:00 [facility] [id number] 2020 00:00:00 [facility] Problems Condition Name Condition Details Condition Category Status Onset Date Resolution Date Last Treatment Date Treating Clinician Comments Source BMI 40.0-44.9, adult BMI 40.0-44.9, adult Disease Active 9 00:00: 00 Anat Mesa - Jarad l Strain of right knee, initial encounter Strain of right knee, initial encounter Disease Active 05-13 00:00: 00 [facility] Acute pain of right knee Acute pain of right knee Disease Active 05-13 00:00: 00 [facility] Nexplanon in place Nexplanon in place Disease Active 11-05 00:00: 00 [facility] BMI 39.0-39.9, adult BMI 39.0-39.9, adult Disease Active 03-10 00:00: 00 [facility] [id number] Multigravi da in third trimester Problem Active [facility] [id number] Panic disorder [episodic paroxysmal anxiety] Problem Active [facility] [id number] Generalize d anxiety disorder Problem Active [facility] [id number] Seasonal allergies Problem Active [facility] [id number] Current moderate episode of major depressive disorder without prior episode Problem Active [facility] [id number] Morbid (severe) obesity due to excess calories Problem Active [facility] [id number] Primary insomnia Problem Active [facility] History of back pain History of back [...] 1-04 00:00: 00 2022-11-05 00:00:00 2022-11-05 11:05:00 [facility] General counseling and advice on female contracept ion General counseling and advice on female contracept ion Disease Resolve d 2021-10 2-19 00:00: 00 2022-11-05 00:00:00 2022-11-05 11:05:01 [facility] Positive GBS test Positive GBS test Disease Resolve d 1 2-09 00:00: 00 2022-11-05 00:00:00 2022-11-05 11:05:02 [facility] Encounter for tubal ligation counseling Encounter for tubal ligation counseling Disease Resolve d 2021-0 9-01 00:00: 00 2022-11-05 00:00:00 2022-11-05 11:05:03 [facility] Obesity affecting , antepartum Obesity affecting , antepartum Disease Resolve d 1 2-01 00:00: 00 2022-10-21 00:00:00 2022-10-21 12:46:38 [facility] Group B streptococ johnny infection in Group B streptococ johnny infection in Disease Resolve d 2021-1 1-07 00:00: 00 2022-10-21 00:00:00 2022-10-21 12:46:58 [facility] Depression affecting , antepartum Depression affecting , antepartum Disease Resolve d 2021-0 9-21 00:00: 00 2022-10-21 00:00:00 2022-10-21 12:46:25 [facility] 39 weeks gestation of 39 weeks gestation of Disease Resolve d 2019-0 4-22 00:00: 00 2022-10-21 00:00:00 2022-10-21 12:46:50 [facility] BMI 40.0-44.9, adult BMI 40.0-44.9, adult Disease Resolve d 2019-0 3-05 00:00: 00 2022-10-21 00:00:00 2022-10-21 12:46:29 [facility] Supervisio n of other high risk , antepartum Supervisio n of other high risk , antepartum Disease Resolve d 2019-0 1-27 00:00: 00 2022-10-21 00:00:00 2022-10-21 12:46:44 [facility] Liveborn infant, of reyna , born in hospital by vaginal delivery Liveborn infant, of reyna , born in hospital by vaginal delivery Disease Resolve d 2015-0 6-23 00:00: 00 2022-10-21 00:00:00 2022-10-21 12:47:04 [facility] Third trimester Third trimester Disease Resolve d 2021-1 2-01 00:00: 00 2022-09-27 00:00:00 2022-09-27 06:02:13 [facility] Person with feared complaint in whom no diagnosis was made Person with feared complaint in whom no diagnosis was made Disease Resolve d 2021-1 2-01 00:00: 00 2022-09-27 00:00:00 2022-09-27 06:02:07 [facility] Pelvic pain affecting in third trimester, antepartum Pelvic pain affecting in third trimester, antepartum Disease Resolve d 2021-1 1-07 00:00: 00 2022-09-27 00:00:00 2022-09-27 06:01:43 [facility] History of oligohydra mnios in prior , currently in third trimester History of oligohydra mnios in prior , currently in third trimester Disease Resolve d 2021-1 0-31 00:00: 00 2022-09-27 00:00:00 2022-09-27 06:01:13 [facility] Urinary tract infection without hematuria, site unspecifie d Urinary tract infection without hematuria, site unspecifie d Disease Resolve d 2021-1 0-14 00:00: 00 2022-09-27 00:00:00 2022-09-27 06:02:14 [facility] Edema during in second trimester Edema during in second trimester Disease Resolve d 2021-0 9-16 00:00: 00 2022-09-27 00:00:00 2022-09-27 06:01:27 [facility] Obesity in , antepartum Obesity in , antepartum Disease Resolve d 2021-0 9-16 00:00: 00 2022-09-27 00:00:00 2022-09-27 06:01:41 [facility] Abdominal pain, right lower quadrant Abdominal pain, right lower quadrant Disease Resolve d 2021-0 7-06 00:00: 00 2022-09-27 00:00:00 2022-09-27 06:01:23 [facility] Nausea and vomiting during Nausea and vomiting during Disease Resolve d 2021-0 5-23 00:00: 00 2022-09-27 00:00:00 2022-09-27 06:01:30 [facility] Nausea and vomiting during Nausea and vomiting during Disease Resolve d 2021-0 5-23 00:00: 00 2022-09-27 00:00:00 2022-09-27 06:01:30 [facility] Subchorion ic hematoma in first trimester, single or unspecifie d fetus Subchorion ic hematoma in first trimester, single or unspecifie d fetus Disease Resolve d 2021-0 7-06 00:00: 00 2022-09-17 00:00:00 2022-09-17 10:51:20 [facility] 15 weeks gestation of 15 weeks gestation of Disease Resolve d 2021-0 7-06 00:00: 00 2022 00:00:00 2022 16:05:36 [facility] with inconclusi ve viability, single or unspecifie d fetus with inconclusi ve viability, single or unspecifie d fetus Disease Resolve d 2021-0 4-19 00:00: 00 2022 00:00:00 2022 16:05:33 [facility] Missed menses Missed menses Disease Resolve d 2021-0 4-19 00:00: 00 2022 00:00:00 2022 16:05:31 [facility] with inconclusi ve viability, single or unspecifie d fetus with inconclusi ve viability, single or unspecifie d fetus Disease Resolve d 0 4-19 00:00: 00 2022 00:00:00 2022 16:05:33 [facility] Oligohydra mnios Oligohydra mnios Disease Resolve d 4-22 00:00: 00 2020-02-29 00:00:00 2020-02-29 09:26:05 [facility] Obesity (BMI 30-39.9) Obesity (BMI 30-39.9) Disease Resolve d 9-06 00:00: 00 2020-01-30 00:00:00 2020-01-30 21:40:57 [facility] 26 weeks gestation of 26 weeks gestation of Disease Resolve d - 00:00: 00 2019-12-03 00:00:00 2019-12-03 14:20:39 [facility] Postprandi al nausea Postprandi al nausea Disease Resolve d 2018-10 2-29 00:00: 00 2019-11-05 00:00:00 2019-11-05 17:51:31 [facility] 40 weeks gestation of 40 weeks gestation of Disease Resolve d 04-01 00:00: 00 2019-10-07 00:00:00 2019-10-07 07:23:47 [facility] Active labor at term Active labor at term Disease Resolve d 04-01 00:00: 2019-10-07 00:00:00 2019-10-07 07:23:49 [facility] Common Discomfort s of Common Discomfort s of Disease Resolve d 01-04 00:00: 00 2019-10-07 00:00:00 2022-04-25 00:40:01 [facility] Allergies, Adverse Reactions, Alerts Allergy Name [...] reaction s Active Rash 2014-10 00:00: 00 [facility] ARIPIPRA ZOLE DRUG INGREDI Active Rash 2014-10 00:00: 00 [facility] PENICILL INS Drug Class Active Rash 2014-10 00:00: 00 [facility] Aripipra zole Drug Allergy Active Rash 2014-10 00:00: 00 [facility] Aripipra zole Monohydr ate Propensi ty to adverse reaction s Active Rash 2014-10 00:00: 00 Anat Seybold - Externa l Penicill ins Propensi ty to adverse reaction s Active Rash 2014-10 00:00: 00 Other Reaction( s): Unknown Anat Seybold - Externa l Abilify [facility] [...] Date Stop Date Quantity Comments Source ASSERTION Possible Anat [facility] - External History of tobacco use Passive smoker Anat Ricci d - External Sexual orientation Gildardo jeffrey Sefunmilayoshanae - External Alcoholic beverage intake 2025-01-15 00:00:00 2025-01-15 00:00:00 .29 /d Anat [facility] - External History of Social function 2025-01-15 00:00:00 2025-01-15 00:00:00 Anat [facility] - External Alcohol Comment 2024-05-22 00:00:00 2024-05-22 00:00:00 socially Anat Mesa - External Sex 2024-01-18 21:27:43 2024-01-18 21:27:43 Female (finding) Anat [facility]a - External Alcohol intake 2023-11-30 00:00:00 2023-11-30 00:00:00 Ex-drinker (finding) [facility] Exposure to SARS-CoV-2 (event) 2023-02-03 00:00:00 2023-02-13 19:59:00 Not sure [facility] Tobacco use and exposure 2022-09-27 00:00:00 2022-09-27 00:00:00 Smokeless tobacco non-user [facility] Sex assigned at 1995 00:00:00 1995 00:00:00 Anat Hurley Smoking Status Start Date Stop Date Source Tobacco smoking consumption unknown Anat Hurley Never smoked tobacco Anat Mesa - External Medications Ordered Medication Name Filled Medication Name Start Date Stop Date Current Medication? Ordering Clinician Indication Dosage Frequency Signature (SIG) Comments Components Source Phentermine HCl 37.5 MG oral Tablet 12-26 00:00: 00 Yes [id number] 37.5mg Take 1 tablet (37.5 mg total) by mouth every morning (before breakfast) . Anat Gonzáles Externa l Topiramate 25 MG oral Tablet 12-26 00:00: 00 Yes [id number] 25mg Q.5D Take 1 tablet (25 mg total) by mouth 2 times daily. Anat chan Norethindro ne, Contracepti ve, (Ortho Micronor) 0.35 MG oral Tablet 12-26 00:00: 00 Yes [id number] .35mg QD Take 1 tablet (0.35 mg total) by mouth daily. Anat chan Norethindro ne Acet-Ethiny l Est (Loestrin 10/29, ,) 1-20 MG-MCG oral Tablet - 00:00: 00 Yes [id number] 1{tbl} QD Take 1 tablet by mouth daily. Anat chan Phentermine HCl 37.5 MG oral Tablet 11-26 00:00: 00 12-26 00:00 :00 No [id number] 18.75mg Take 0.5 tablets (18.75 mg total) by mouth every morning (before breakfast) . Anat chan Diclofenac Sodium 75 MG oral Tablet Delayed Response 10-29 00:00: 00 Yes [id number] 75mg Q.5D Take 1 tablet (75 mg total) by mouth 2 times daily. Anat chan HYDROcodone -acetaminop hen (NORCO 5) tablet 1 tablet 10-25 17:15: 00 10-25 17:38 :00 No 1{tbl} 1 tablet, Oral, ONCE, 1 dose, On Maddison 10/25/24 at 1115, ARVIN [facility] Ibuprofen (MOTRIN) 800 MG oral Tablet 10-25 00:00: 00 Yes 800mg Take 1 tablet (800 mg total) by mouth 3 times daily (with meals). Anat chan traMADoL 50 mg tablet 10-25 00:00: 00 11-02 05:59 :00 No [id number] 50mg Take 1 tablet by mouth every 6 (six) hours as needed for Pain (scale 7-10) for up to 7 days. Indication s: acute pain [facility] Gabapentin 100 MG oral Capsule 1-07 00:00: 00 Yes [id number] 100mg Q.[id number] 3D Take 1 capsule (100 mg total) by mouth 3 times daily. Anat chan Clindamycin HCl 150 MG oral Capsule 10-16 00:00: 00 11-26 00:00 :00 No TAKE ONE (1) CAPSULE(S) BY MOUTH FOUR TIMES A DAY UNTIL ALL TAKEN. Anat chan Gabapentin 100 MG oral Capsule 2023-10 00:00: 00 Yes [id number] 100mg Q.[id number] 3D Take 1 capsule (100 mg total) by mouth 3 times daily. Anat chan Meloxicam 15 MG oral Tablet 2023-10 00:00: 00 Yes [id number] 15mg QD Take 1 tablet (15 mg total) by mouth daily Take with Meals, STOP IF UPSET STOMACH. Anat chan Phentermine HCl 37.5 MG oral Tablet 2023-10 10:15: 05 07-10 00:00 :00 No Take by mouth. Anat chan methylPREDN ISolone 4 MG oral Tablet Therapy Pack 2023-10 00:00: 00 08-30 00:00 :00 No [id number] 1{aldair} Take 1 aldair by mouth See Admin Instructio ns Use as directed. Anat chan Azithromyci n 250 MG oral Tablet 2023-10 00:00: 00 07-16 04:59 :00 No [id number] Take 2 tablets by mouth on day 1 then 1 tablet by mouth daily for 4 days thereafter .. Anat chan ketorolac (TORADOL) injection 15 mg 07-04 01:32: 00 07-04 01:44 :00 No 15mg 15 mg, Slow IV Push, ONCE, 1 dose, On Tue07/03/24 at 2045, [facility]-pseudo ephedrine-D M (BROMFED DM) 2-30-10 mg/5 mL syrup 06-28 00:00: 00 07-09 04:59 :00 No [id number] 10mL Take 10 mL by mouth 4 (four) times daily for 10 days. [facility] Phentermine HCl 37.5 MG oral Tablet 06-27 00:00: 00 11-26 00:00 :00 No [id number] 37.5mg Take 1 tablet (37.5 mg total) by mouth every morning (before breakfast) . Anat chan codeine-gua ifenesin (ROBITUSSIN AC) 10-100 mg/5 mL oral solution 10 mL 06-26 01:45: 00 06-26 01:54 :00 No 10mL 10 mL, Oral, ONCE, 1 dose, On Tue06/25/24 at 2045, ARVIN [facility] Pseudoeph-B romphen-DM 30-2-10 MG/5ML oral Syrup 06-25 [...] MCG/ACT IN AERS 06-12 00:00: 00 Yes [id number] 2{puff} Q.25D Inhale 2 puffs into the lungs every 6 hours as needed for wheezing or shortness of breath. Anat chan FLUTICASONE PROPIONATE, NASAL, 50 MCG/ACT nasal Suspension 06-12 00:00: 00 11-26 00:00 :00 No [id number] 50ug QD Use 1 spray (50 mcg total) in each nostril daily. Anat chan Benzonatate 200 MG oral Capsule 06-12 00:00: 00 08-30 00:00 :00 No [id number] 200mg Q.[id number] 3D Take 1 capsule (200 mg total) by mouth 3 times daily as needed for cough. Anat chan Azelastine HCl 0.1 % nasal Solution 06-12 00:00: 00 08-30 00:00 :00 No [id number] 2 sprays in each nostril bid prn for congestion . Anat chan Meloxicam 15 MG oral Tablet 06-06 00:00: 00 08-30 00:00 :00 No 15mg QD Take 1 tablet (15 mg total) by mouth daily Take with Meals, STOP IF UPSET STOMACH. Anat chan Famotidine (PEPCID) 20 MG oral tablet 05-30 00:00: 00 11-26 00:00 :00 No [id number] 20mg Q.5D Take 1 tablet (20 mg total) by mouth 2 times daily. Anat chan Ondansetron HCl 4 MG oral Tablet 05-30 00:00: 00 06-27 00:00 :00 No [id number] 8mg Q.[id number] 3D Take 2 tablets (8 mg total) [...] 05-22 00:00: 00 06-27 00:00 :00 No [id number] 15mg Take 1 capsule (15 mg total) by mouth every morning. Anat chan Ketorolac Tromethamin e 10 MG oral Tablet 05-22 00:00: 00 06-06 00:00 :00 No [id number] 10mg Q.25D Take 1 tablet (10 mg total) by mouth every 6 hours as needed for pain. Anat chan Norgestimat e-Eth Estradiol (Sprintec 28) 0.25-35 MG-MCG oral Tablet 05-18 00:00: 00 12-07 00:00 :00 No [id number] 100 1{tbl} QD Take 1 tablet by mouth daily. Anat chan ketorolac (TORADOL) injection 30 mg 05-13 06:15: 00 05-13 06:15 :00 No 30mg 30 mg, Intramuscu lar, ONCE, 1 dose, On 05/13/24 at 0115, [facility]ine [facility] Azelastine [facility] 0.1 % nasal Solution 05-10 00:00: 00 05-22 00:00 :00 No [id number] 1{spray } Q.5D Use 1 spray in each nostril 2 times daily. Anat chan Pseudoeph-B romphen-DM 30-2-10 MG/5ML oral Syrup 05-10 00:00: 00 05-22 00:00 :00 No [id number] 10mL Q.25D Take 10 mL by mouth 4 times daily as needed. Anat chan dexamethaso ne (DECADRON PHOSPHATE) injection 10 mg 10-14 05:00: 00 10-14 04:06 :00 No 10mg 10 mg, Intramuscu lar, ONCE, 1 dose, On Maddison 10/13/23 at 2300, Routine [facility] ketorolac (TORADOL) injection 30 mg 10-14 05:00: 00 10-14 04:07 :00 No 30mg 30 mg, Intramuscu lar, ONCE, 1 dose, On Maddison 10/13/23 at 2300, Routine [facility] gabapentin (NEURONTIN) capsule 300 mg 10-14 04:00: 00 10-14 04:07 :00 No 300mg 300 mg, Oral, ONCE, 1 dose, On Maddison 10/13/23 at 2200, ARVIN [facility] methylPREDN ISolone 4 mg tablets 10-14 00:00: 00 Yes [id number] Take by mouth SEE-INSTRU CTIONS. follow package directions [facility] Gabapentin 300 MG oral Capsule 10-13 00:00: 00 07-10 00:00 :00 No 300mg Q.[id number] 3D Take 1 capsule (300 mg total) by mouth 3 times daily as needed. Anat chan Ketorolac Tromethamin e 10 MG oral Tablet 10-13 00:00: 00 05-22 00:00 :00 No 10mg Q.25D Take 1 tablet (10 mg total) by mouth every 6 hours as needed. Anat Seybold - Externa l methocarbam oL 750 mg tablet 10-13 00:00: 00 10-17 05:59 :00 No [id number] 750mg Take 1 tablet by mouth 4 (four) times daily for 3 days. [facility] azithromyci n 500 mg tablet 2022-10 00:00: 00 10-03 05:59 :00 No [id number] 500mg Take 1 tablet by mouth in the morning for 5 days. [facility] dexamethaso ne sod phos PF injection 10 mg 2022-10 06:00: 00 09-04 05:04 :00 No 10mg 10 mg, Intramuscu lar, ONCE, 1 dose, On 09/04/23 at 0000, Routine [facility] ipratropium -albuteroL (DUONEB) 0.5 mg-3 mg(2.5 mg base)/3 mL nebulizer solution 3 mL 2022-10 05:45: 00 09-04 05:03 :00 No 3mL 3 mL, Inhalation , ONCE NOW, 1 dose, On 09/03/23 at 2345, Routine [facility] benzonatate 100 mg capsule 2022-10 00:00: 00 Yes [id number] 200mg Take 2 capsules by mouth 3 (three) times daily as needed for Cough. [facility] Albuterol (PROVENTIL) (2.5 MG/3ML) 0.083% inhalation Inhalant Solution 2022-10 00:00: 00 Yes 2.5mg Q4H Inhale 2.5 mg into the lungs every 4 (four) hours. Anat Gonzáles Externa l predniSONE 20 mg tablet 2022-10 00:00: 00 09-12 05:59 :00 No [id number] 20mg Take 1 tablet by mouth in the morning for 7 days. [facility] [facility] acet[facility]oph [facility] (TYLENOL) tablet 650 mg 2022-10 17:30: 00 08-29 16:57 :00 No 650mg 650 mg, Oral, ONCE, 1 dose, On 08/29/23 at 1130, [facility] ketorolac (TORADOL) injection 60 mg 2022-10 17:30: 00 08-29 16:56 :00 No 60mg 60 mg, Intramuscu lar, ONCE, 1 dose, On Tue08/29/23 at 1130, [facility] famotidine (PEPCID AC) tablet 40 mg 2022-10 16:32: 00 08-29 16:56 :00 No 40mg 40 mg, Oral, ONCE, 1 dose, On Tue08/29/23 at 1045, [facility] ibuprofen 800 mg tablet 2022-10 00:00: 00 Yes [id number] 800mg Take 1 tablet by mouth every 6 (six) hours as needed for Pain (scale 4-6) or Temp > 38.5 C. [facility] benzonatate 100 mg capsule 2022-10 00:00: 00 Yes [id number] 100mg Take 1 capsule by mouth 3 (three) times daily as needed for Cough. [facility] Oseltamivir Phosphate 75 MG oral Capsule 2022-10 00:00: 00 05-22 00:00 :00 No 75mg Q.5D Take 1 capsule (75 mg total) by mouth 2 times daily. [facility] - Externa l cyclobenzap rine 10 mg tablet 03-29 00:00: 00 Yes [facility] azithromyci n 250 mg tablet 02-13 00:00: 00 09-03 00:00 :00 No [id number] Take 2 tablets on day 1 and 1 tablet on days 2-5. [facility] etonogestre L (NEXPLANON) implant 68 mg 11-05 18:00: 00 11-05 17:05 :00 No [id number] [facility] phentermine HCl (PHENTERMIN E ORAL) 10-21 10:43: 33 Yes Take by mouth. [facility] fexofenadin e HCl (MAGNOLIA ALLERGY ORAL) 2021-10 16:51: 23 Yes [facility] vitamin w/FA tablet 2021-10 00:00: 00 11-05 00:00 :00 No [id number] 102 1{tbl} Take 1 tablet by mouth in the morning. [facility] docusate 100 mg capsule 2021-10 00:00: 00 11-05 00:00 :00 No [id number] 102 200mg Take 2 capsules by mouth once daily as needed for Constipati on. [facility] ferrous sulfate 325 mg (65 mg iron) tablet 2021-10 00:00: 00 11-05 00:00 :00 No [id number] 102 325mg Take 1 tablet by mouth in the morning and 1 tablet in the evening. [facility] ibuprofen 600 mg tablet 2021-10 00:00: 00 11-05 00:00 :00 No [id number] 102 600mg Take 1 tablet by mouth every 6 (six) hours as needed (Pain). Take with food or milk. [facility] norethindro ne 0.35 mg tablet 2021-10 00:00: 00 11-05 00:00 :00 No [id number] 102 1{tbl} Take 1 tablet by mouth in the morning. [facility] rho(D) immune globulin (RHOGAM) syringe 300 mcg 2021-10 20:35: 22 Yes 300ug 300 mcg, Intramuscu lar, ONCE, For 1 dose, Conditiona l, Routine [facility] HYDROcodone -acetaminop hen (NORCO 5) 5-325 mg tablet 1 tablet 2021-10 20:35: 02 Yes 1{tbl} 1 tablet, Oral, Q6HPRN, Starting on Tue09/27/22 at 1435, Until Discontinu ed, Routine, Pain (scale 7-10) [facility] ibuprofen (IBU) tablet 600 mg 2021-10 20:35: 02 Yes 600mg 600 mg, Oral, Q6HPRN, Starting on Tue09/27/22 at 1435, Until Discontinu ed, Routine, Pain (scale 4-6) [facility] acetaminoph en (TYLENOL) tablet 650 mg 2021-10 20:35: 02 Yes 650mg 650 mg, Oral, Q6HPRN, Starting on Tue09/27/22 at 1435, Until Discontinu ed, Routine, Pain (scale 1-3) [facility] diphenhydrA MINE (BENADRYL) tablet 25 mg 2021-10 20:35: 02 Yes 25mg 25 mg, Oral, Q6HPRN, Starting on Tue09/27/22 at 1435, Until Discontinu ed, Routine, Sleep, Itching [facility] ondansetron (ZOFRAN (PF)) injection 4 mg 2021-10 20:35: 02 Yes 4mg 4 mg, Slow IV Push, Q8HPRN, Starting on Tue09/27/22 at 1435, Until Discontinu ed, Routine, Nausea and Vomiting (N/V) [facility] simethicone (GAS RELIEF (SIMETHICON E)) chewable tablet 160 mg 2021-10 20:35: 02 Yes 160mg 160 mg, Oral, PC+HSPRN, Starting on Tue09/27/22 at 1435, Until Discontinu ed, Routine, Gas [facility] docusate (COLACE) capsule 200 mg 2021-10 20:35: 02 Yes 200mg 200 mg, Oral, QDAILYPRN, Starting on Tue09/27/22 at 1435, Until Discontinu ed, Routine, Constipati on [facility] magnesium hydroxide (MILK OF MAGNESIA) 400 mg/5 mL suspension 30 mL 2021-10 20:35: 02 Yes 30mL 30 mL, Oral, QDAILYPRN, Starting on Tue09/27/22 at 1435, Until Discontinu ed, Routine, Constipati on [facility] benzocaine- menthol (DERMOPLAST ) 20-0.5 % topical spray 2021-10 20:35: 02 Yes Topical, PRN, Starting on Tue09/27/22 at 1435, Until Discontinu ed, Routine, Perineum discomfort [facility] witjosh Monica (TUCKS) 50 % topical pad 2021-10 20:34: 48 Yes Topical, Q4HPRN, Starting on Tue09/27/22 at 1434, Until Discontinu ed, Routine, rectal/hem orrhoidal pain [facility] oxytocin (PITOCIN) 30 units in NS 500 mL IV infusion 2021-10 20:14: 48 09-27 20:34 :59 No 600mL/h 600 mL/hr, IV Infusion, PRN, For post delivery uterine atony., Starting on Tue09/27/[address] at 600 mL/hr for 1 hr then 150 mL/hr for 1 hr.
[facility] oxytocin (PITOCIN) 30 units in NS 500 mL IV infusion 2021-10 20:14: 48 09-27 20:34 :59 No 300mL/h 300 mL/hr, IV Infusion, SEE-INSTRU CTIONS, Starting on Tue09/27/[address] [facility] at 300 mL/hr for 1 hr then 150 mL/hr for 1 hr. & nbsp; For post delivery uterotonic
[facility] PIB fentaNYL-ro pivacaine 2 mcg/mL-0.1 % (PF) in NS 200 mL epidural infusion RTU 2021-10 17:25: 00 09-27 20:21 :39 No Epidural, CONTINUOUS PRN, Starting on Tue09/27/22 at 1125, Until Tue09/27/22 at 1421, Routine, Intra-op [facility] lidocaine-e pinephrine (XYLOCAINE W/EPINEPHRI NE) 2 %-1:200,000 injection 2021-10 17:22: 00 09-27 20:21 :39 No Intravenou s, ONCE INTRA PROCEDURE, Starting on Tue09/27/22 at 1122, Until Tue09/27/22 at 1421, Routine, Intra-op [facility] lidocaine 1% (XYLOCAINE) 100 mg/10 mL (1 %) injection 2021-10 17:17: 00 09-27 20:21 :39 No Infiltrati on, ONCE INTRA PROCEDURE, Starting on Tue09/27/22 at 1117, Until Tue09/27/22 at 1421, Routine, Intra-op [facility] esomeprazol e magnesium (NEXIUM ORAL) 2021-10 14:16: 31 Yes Take by mouth. [facility] acetaminoph en 325 mg Cap 2021-10 14:16: 31 Yes Take by mouth. [facility] proMETHazin e (PHENERGAN) 25 mg in NaCl 0.9% (NS) 50 mL IV piggyback 2021-10 11:00: 00 09-27 22:13 :26 No 25mg 25 mg, IV Piggyback, Q4HPRN, Starting on Tue09/27/22 at 0500, Until Tue09/27/22 at 1613, Routine, Nausea and Vomiting (N/V) [facility] FENTanyl PF (SUBLIMAZE (PF)) injection 100 mcg 2021-10 11:00: 00 09-27 22:13 :26 No 100ug 100 mcg, Slow IV Push, Q1HPRN, Starting on Tue09/27/22 at 0500, Until Tue09/27/22 at 1613, Routine, Pain (scale 7-10) [facility] clindamycin in 5 % dextrose (CLEOCIN) [...] (see Comments)< br>Restric vonda use approved by: 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 : JOSETTE CHEUNG [facility] oxytocin (PITOCIN) 30 units in NS 500 mL IV infusion 2021-10 11:00: 00 09-27 22:13 :32 No 2mU/min at 2-40 mL/hr, IV Infusion, TITRATE, Starting on Tue09/27/22 at 0500, Until Tue09/27/22 at 1613, [facility] lactated ringers IV infusion 500 mL 2021-10 10:29: 52 09-27 22:13 :32 No 500mL at 999 mL/hr, 500 mL, IV Infusion, PRN - SEE INSTRUCTIO NS, Starting on Tue09/27/22 at 0429, Until Tue09/27/22 at 1613, Routine [facility] D5W-LR IV infusion 1,000 mL 2021-10 10:29: 52 09-27 22:13 :32 No 1000mL at 1-125 mL/hr, IV Infusion, TITRATE, Starting on Tue09/27/22 at 0429, Until Tue09/27/22 at 1613, Routine [facility] acetaminoph en 325 mg Cap 2021-10 09:18: 33 Yes Take by mouth. [facility] guaifenesin (MUCINEX ORAL) 2021-10 09:18: 33 Yes Take by mouth. [facility] esomeprazol e magnesium (NEXIUM ORAL) 2021-10 16:15: 19 Yes Take by mouth. [facility] acetaminoph en 325 mg Cap 2021-10 16:15: 19 Yes Take by mouth. [facility] esomeprazol e magnesium (NEXIUM ORAL) 2021-10 11:33: 58 Yes Take by mouth. [facility] acetaminoph en 325 mg Cap 2021-10 11:33: 58 Yes Take by mouth. [facility] esomeprazol e magnesium (NEXIUM ORAL) 2021-10 10:48: 25 Yes Take by mouth. [facility] acetaminoph en 325 mg Cap 2021-10 10:48: 25 Yes Take by mouth. [facility] esomeprazol e magnesium (NEXIUM ORAL) 2021-10 21:40: 31 Yes Take by mouth. [facility] acetaminoph en 325 mg Cap 2021-10 21:40: 31 Yes Take by mouth. [facility] esomeprazol e magnesium (NEXIUM ORAL) 2021-10 23:12: 38 Yes Take by mouth. [facility] acetaminoph en 325 mg Cap 2021-10 23:12: 38 Yes Take by mouth. [facility] esomeprazol e magnesium (NEXIUM ORAL) 2021-10 07:10: 48 Yes Take by mouth. [facility] acetaminoph en 325 mg Cap 2021-10 07:10: 48 Yes Take by mouth. [facility] acetaminoph en 325 mg Cap 2021-10 10:43: 38 Yes Take by mouth. [facility] fexofenadin e HCl (MAGNOLIA ALLERGY ORAL) 2021-10 10:43: 38 Yes [facility] metroNIDAZO LE (FLAGYL) tablet 500 mg 2021-10 01:58: 00 08-23 02:01 :00 No 500mg 500 mg, Oral, ONCE NOW, 1 dose, On 08/22/22 at 2000, Routine
Reason for Anti-Infec tive: Documented Infection< br>Documen vonda Infection Site: Pelvic
Duration of Therapy: 7 days [facility] esomeprazol e magnesium (NEXIUM ORAL) 2021-10 20:18: 11 Yes Take by mouth. [facility] acetaminoph en (TYLENOL) 325 mg Cap 2021-10 20:18: 11 Yes Take by mouth. [facility] metroNIDAZO LE 500 mg tablet 2021-10 00:00: 00 Yes [id number] 500mg Take 1 tablet by mouth every 12 (twelve) hours. [facility] esomeprazol e magnesium (NEXIUM ORAL) 2021-10 20:28: 12 Yes Take by mouth. [facility] acetaminoph en (TYLENOL) 325 mg Cap 2021-10 20:28: 12 Yes Take by mouth. [facility] esomeprazol e magnesium (NEXIUM ORAL) 2021-10 0 16:41: 09 Yes Take by mouth. [facility] acetaminoph en (TYLENOL) 325 mg Cap 2021-10 16:41: 09 Yes Take by mouth. [facility] fexofenadin e HCl (MAGNOLIA ALLERGY ORAL) 2021-10 0 08:36: 33 Yes [facility] NaCl 0.9% (NS) bolus infusion 1,000 mL 2021-10 13:45: 00 07-31 14:26 :00 No 1000mL at 999 mL/hr, 1,000 mL, IV Piggyback, ONCE, 1 dose, On 07/31/22 at 0845, STAT [facility] esomeprazol e magnesium (NEXIUM ORAL) 2021-10 13:26: 52 Yes Take by mouth. [facility] acetaminoph en (TYLENOL) 325 mg Cap 2021-10 13:26: 52 Yes Take by mouth. [facility] ondansetron 8 mg disintegrat ing tablet 2021-10 00:00: 00 Yes [id number] 8mg Take 1 tablet by mouth every 8 (eight) hours as needed for Nausea and Vomiting (N/V). [facility] fluoxetine HCl (FLUOXETINE ORAL) 2021-10 13:21: 03 07-23 00:00 :00 No 20mg Take 20 mg by mouth daily. [facility] Nitrofurant oin&Nit. Macrocryst (MACROBID) 100 mg capsule 100 mg 2021-10 0 16:15: 00 07-21 15:54 :00 No 100mg 100 mg, Oral, ONCE, 1 dose, On Tue07/21/22 at 1115, Routine
Reason for Anti-Infec tive: Empiric Therapy for Suspected Infection< br>Empiric Therapy Site: Urine
D uration of therapy: 72 hours [facility] fluoxetine HCl (FLUOXETINE ORAL) 2021-10 11:02: 42 Yes 20mg Take 20 mg by mouth daily. [facility] Nitrofurant oin&Nit. Macrocryst 100 mg capsule 2021-10 00:00: 00 07-30 00:00 :00 No [id number] 100mg Take 1 capsule by mouth in the morning and 1 capsule in the evening. [facility] fluoxetine HCl (FLUOXETINE ORAL) 2021-10 11:05: 17 Yes 20mg Take 20 mg by mouth daily. [facility] montelukast 10 mg tablet 04-30 00:00: 00 Yes [id number] 10mg Take 1 tablet by mouth every evening. [facility] buPROPion SR (WELLBUTRIN SR) 100 mg SR tablet 04-30 00:00: 00 09-03 00:00 :00 No [id number] 100mg Take 1 tablet by mouth in the morning and 1 tablet in the evening. [facility] ondansetron (ZOFRAN) 8 mg tablet 04-30 00:00: 00 07-30 00:00 :00 No [id number] 8mg Take 1 tablet by mouth every 8 (eight) hours as needed for Nausea and Vomiting (N/V). [facility] albuterol 90 mcg/actuati on inhaler 04-07 00:00: 00 09-03 00:00 :00 No [id number] 2{puff} Inhale 2 Puffs every 6 (six) hours as needed for Wheezing or Shortness of Breath. [facility] aspirin 81 mg EC tablet 04-07 00:00: 00 09-28 00:00 :00 No [id number] 81mg Take 1 tablet by mouth daily. [facility] buPROPion SR (WELLBUTRIN SR) 100 mg SR tablet 04-07 00:00: 04-28 00:00 :00 No [id number] 100mg Take 1 tablet by mouth 2 (two) times daily. [facility] montelukast 10 mg tablet 04-07 00:00: 00 04-28 00:00 :00 No [id number] 10mg Take 1 tablet by mouth every evening. [facility] guaiFENesin 400 mg tablet 04-04 00:00: 00 07-23 00:00 :00 No [id number] 400mg Take 1 tablet by mouth every 4 (four) hours as needed for Cough. [facility] ondansetron (ZOFRAN) 8 mg tablet 03-01 00:00: 00 04-28 00:00 :00 No [id number] 8mg Take 1 tablet by mouth every 8 (eight) hours as needed for Nausea and Vomiting (N/V). [facility] albuterol 90 mcg/actuati on inhaler 15 00:00: 00 07-23 00:00 :00 No [id number] 2{puff} Inhale 2 Puffs every 4 (four) hours as needed for Wheezing or Shortness of Breath. [facility] fluoxetine HCl (FLUOXETINE ORAL) 02-02 09:08: 33 Yes 20mg Take 20 mg by mouth daily. [facility] metoclopram demetris HCl 10 mg tablet 02-02 00:00: 00 07-23 00:00 :00 No [id number] Take one tablet every 8 hour as needed for nausea in [facility] 26-iron ps-folic-dh a (VITAFOL-ON E) 29 mg iron- 1 mg-200 mg per capsule 01-26 00:00: 00 07-23 00:00 :00 No [id number] 1{capsu le} Take 1 capsule by mouth daily for 180 days. [facility] 26-iron ps-folic-dh a (VITAFOL-ON E) 29 mg iron- 1 mg-200 mg per capsule 01-26 00:00: 00 07-23 00:00 :00 No [id number] 1{capsu le} Take 1 capsule by mouth daily for 180 days. [facility] Trazodone HCl 50 MG Trazodone HCl 50 MG 03-05 00:00: 00 No 1{table t_at_be dtime_a s_neede d} QD Trazodone HCl 50 MG busPIRone 5 mg tablet 03-27 00:00: 01-26 00:00 :00 No [id number] 5mg Take 1 tablet by mouth 2 (two) times daily. [facility] NUVARING 0.12-0.015 mg/24 hr vaginal insert 02-28 00:00: 00 09-30 00:00 :00 No [id number] 1{each} Insert 1 Each into vagina once every month. Insert vaginally and leave in place for 3 consecutiv e weeks, then remove for 1 week. [facility] vitamin w/FA tablet 01-31 00:00: 00 01-26 00:00 :00 No [id number] 1{tbl} Take 1 tablet by mouth daily. [facility] docusate calcium 240 mg capsule 01-31 00:00: 01-26 00:00 :00 No [id number] 240mg Take 1 capsule by mouth once daily as needed for Constipati on. [facility] ferrous sulfate 325 mg (65 mg iron) tablet 01-31 00:00: 01-26 00:00 :00 No [id number] 325mg Take 1 tablet by mouth 2 (two) times daily. [facility] ibuprofen 600 mg tablet 01-31 00:00: 00 01-26 00:00 :00 No [id number] 600mg Take 1 tablet by mouth every 6 (six) hours as needed (Pain). Take with food or milk. [facility] Flonase Flonase 2017-10 2-10 00:00: 00 Yes Soledad Gardner 2 sprays each nostril prn [facility] Flonase 50 MCG/ACT Flonase 50 MCG/ACT 2017-10 [...] Magnolia Magnolia Yes Soledad Gardner not defined [facility] FLUoxetine HCl 20 MG FLUoxetine [...] Free 6 MO-64 YRS 2022-07-23 00:00:00 Completed [facility] TDAP 2022-07-23 00:00:00 Completed [facility] Influenza Virus Vaccine Quad IM, Preserv and ABX Free 6 MO-64 YRS 2022-07-23 00:00:00 Completed [facility] TDAP 2022-07-23 00:00:00 Completed [facility] Influenza Virus Vaccine Quad IM, Preserv and ABX Free 6 MO-64 YRS 2022-07-23 00:00:00 Completed [facility] TDAP 2022-07-23 00:00:00 Completed [facility] Influenza Virus Vaccine Quad IM, Preserv and ABX Free 6 MO-64 YRS 2022-07-23 00:00:00 Completed [facility] TDAP 2022-07-23 00:00:00 Completed [facility] Influenza Virus Vaccine Quad IM, Preserv and ABX Free 6 MO-64 YRS 2022-07-23 00:00:00 Completed [facility] TDAP 2022-07-23 00:00:00 Completed [facility] Influenza Virus Vaccine Quad IM, Preserv and ABX Free 6 MO-64 YRS 2022-07-23 00:00:00 Completed [facility] TDAP 2022-07-23 00:00:00 Completed [facility] Influenza Virus Vaccine Quad IM, Preserv and ABX Free 6 MO-64 YRS 2022-07-23 00:00:00 Completed [facility] TDAP 2022-07-23 00:00:00 Completed [facility] Influenza Virus Vaccine Quad IM, Preserv and ABX Free 6 MO-64 YRS 2022-07-23 00:00:00 Completed [facility] TDAP 2022-07-23 00:00:00 Completed [facility] Influenza Virus Vaccine Quad IM, Preserv and ABX Free 6 MO-64 YRS 2022-07-23 00:00:00 Completed [facility] TDAP 2022-07-23 00:00:00 Completed [facility] Influenza Virus Vaccine Quad IM, Preserv and ABX Free 6 MO-64 YRS 2022-07-23 00:00:00 Completed [facility] TDAP 2022-07-23 00:00:00 Completed [facility] Influenza Virus Vaccine Quad IM, Preserv and ABX Free 6 MO-64 YRS 2022-07-23 00:00:00 Completed [facility] TDAP 2022-07-23 00:00:00 Completed [facility] Influenza Virus Vaccine Quad IM, Preserv and ABX Free 6 MO-64 YRS 2022-07-23 00:00:00 Completed [facility] TDAP 2022-07-23 00:00:00 Completed [facility] Influenza Virus Vaccine Quad IM, Preserv and ABX Free 6 MO-64 YRS 2022-07-23 00:00:00 Completed [facility] TDAP 2022-07-23 00:00:00 Completed [facility] Influenza Virus Vaccine Quad IM, Preserv and ABX Free 6 MO-64 YRS 2022-07-23 00:00:00 Completed [facility] TDAP 2022-07-23 00:00:00 Completed [facility] Influenza Virus Vaccine Quad IM, Preserv and ABX Free 6 MO-64 YRS 2022-07-23 00:00:00 Completed [facility] TDAP 2022-07-23 00:00:00 Completed [facility] Influenza Virus Vaccine Quad IM, Preserv and ABX Free 6 MO-64 YRS 2022-07-23 00:00:00 Completed [facility] TDAP 2022-07-23 00:00:00 Completed [facility] Influenza Virus Vaccine Quad IM, Preserv and ABX Free 6 MO-64 YRS 2022-07-23 00:00:00 Completed [facility] TDAP 2022-07-23 00:00:00 Completed [facility] Influenza Virus Vaccine Quad IM, Preserv and ABX Free 6 MO-64 YRS 2022-07-23 00:00:00 Completed [facility] TDAP 2022-07-23 00:00:00 Completed [facility] Influenza Virus Vaccine Quad IM, Preserv and ABX Free 6 MO-64 YRS 2022-07-23 00:00:00 Completed [facility] TDAP 2022-07-23 00:00:00 Completed [facility] Influenza Virus Vaccine Quad IM, Preserv and ABX Free 6 MO-64 YRS 2022-07-23 00:00:00 Completed [facility] TDAP 2022-07-23 00:00:00 Completed [facility] Influenza Virus Vaccine Quad IM, Preserv and ABX Free 6 MO-64 YRS 2022-07-23 00:00:00 Completed [facility] TDAP 2022-07-23 00:00:00 Completed [facility] Influenza Virus Vaccine Quad IM, Preserv and ABX Free 6 MO-64 YRS 2022-07-23 00:00:00 Completed [facility] TDAP 2022-07-23 00:00:00 Completed [facility] Influenza Virus Vaccine Quad IM, Preserv and ABX Free 6 MO-64 YRS 2022-07-23 00:00:00 Completed [facility] TDAP 2022-07-23 00:00:00 Completed [facility] Influenza Virus Vaccine Quad IM, Preserv and ABX Free 6 MO-64 YRS 2022-07-23 00:00:00 Completed [facility] TDAP 2022-07-23 00:00:00 Completed [facility] Influenza Virus Vaccine Quad IM, Preserv and ABX Free 6 MO-64 YRS 2022-07-23 00:00:00 Completed [facility] TDAP 2022-07-23 00:00:00 Completed [facility] Influenza Virus Vaccine Quad IM, Preserv and ABX Free 6 MO-64 YRS 2022-07-23 00:00:00 Completed [facility] TDAP 2022-07-23 00:00:00 Completed [facility] Influenza Virus Vaccine Quad IM, Preserv and ABX Free 6 MO-64 YRS 2022-07-23 00:00:00 Completed [facility] TDAP 2022-07-23 00:00:00 Completed [facility] Influenza Virus Vaccine Quad IM, Preserv and ABX Free 6 MO-64 YRS 2022-07-23 00:00:00 Completed [facility] TDAP 2022-07-23 00:00:00 Completed [facility] Influenza Virus Vaccine Quad IM, Preserv and ABX Free 6 MO-64 YRS 2022-07-23 00:00:00 Completed [facility] TDAP 2022-07-23 00:00:00 Completed [facility] Influenza Virus Vaccine Quad IM, Preserv and ABX Free 6 MO-64 YRS 2022-07-23 00:00:00 Completed [facility] TDAP 2022-07-23 00:00:00 Completed [facility] Influenza Virus Vaccine Quad IM, Preserv and ABX Free 6 MO-64 YRS 2022-07-23 00:00:00 Completed [facility] TDAP 2022-07-23 00:00:00 Completed [facility] Influenza Virus Vaccine Quad IM, Preserv and ABX Free 6 MO-64 YRS 2022-07-23 00:00:00 Completed [facility] TDAP 2022-07-23 00:00:00 Completed [facility] Influenza Virus Vaccine Quad IM, Preserv and ABX Free 6 MO-64 YRS 2022-07-23 00:00:00 Completed [facility] TDAP 2022-07-23 00:00:00 Completed [facility] Influenza Virus Vaccine Quad IM, Preserv and ABX Free 6 MO-64 YRS 2022-07-23 00:00:00 Completed [facility] TDAP 2022-07-23 00:00:00 Completed [facility] Influenza Virus Vaccine Quad IM, Preserv and ABX Free 6 MO-64 YRS 2022-07-23 00:00:00 Completed [facility] TDAP 2022-07-23 00:00:00 Completed [facility] Influenza Virus Vaccine Quad IM, Preserv and ABX Free 6 MO-64 YRS 2022-07-23 00:00:00 Completed [facility] TDAP 2022-07-23 00:00:00 Completed [facility] Influenza Virus Vaccine Quad IM, Preserv and ABX Free 6 MO-64 YRS 2022-07-23 00:00:00 Completed [facility] TDAP 2022-07-23 00:00:00 Completed [facility] Influenza Virus Vaccine Quad IM, Preserv and ABX Free 6 MO-64 YRS 2022-07-23 00:00:00 Completed [facility] TDAP 2022-07-23 00:00:00 Completed [facility] Influenza Virus Vaccine Quad IM, Preserv and ABX Free 6 MO-64 YRS 2022-07-23 00:00:00 Completed [facility] TDAP 2022-07-23 00:00:00 Completed [facility] Influenza Virus Vaccine Quad IM, Preserv and ABX Free 6 MO-64 YRS 2022-07-23 00:00:00 Completed [facility] TDAP 2022-07-23 00:00:00 Completed [facility] Influenza Virus Vaccine Quad IM, Preserv and ABX Free 6 MO-64 YRS 2022-07-23 00:00:00 Completed [facility] TDAP 2022-07-23 00:00:00 Completed [facility] Influenza Virus Vaccine Quad IM, Preserv and ABX Free 6 MO-64 YRS 2022-07-23 00:00:00 Completed [facility] TDAP 2022-07-23 00:00:00 Completed [facility] Influenza Virus Vaccine Quad IM, Preserv and ABX Free 6 MO-64 YRS 2022-07-23 00:00:00 Completed [facility] TDAP 2022-07-23 00:00:00 Completed [facility] Influenza Virus Vaccine Quad IM, Preserv and ABX Free 6 MO-64 YRS (FLUCELVAX) 2022-07-23 00:00:00 Completed TDAP 2022-07-23 00:00:00 Completed Influenza Virus Vaccine Quad IM, Preserv and ABX Free 6 MO-64 YRS (FLUCELVAX) 2022-07-23 00:00:00 Completed TDAP 2022-07-23 00:00:00 Completed Influenza Virus Vaccine 2021-07-31 00:00:00 Completed [facility] Influenza Virus Vaccine 2021-07-31 00:00:00 Completed [facility] SARS-COV-2 COVID-19 OTIS/J&J VACCINE 2021-06-04 00:00:00 Completed [facility] SARS-COV-2 COVID-19 OTIS/J&J VACCINE 2021-06-04 00:00:00 Completed [facility] SARS-COV-2 COVID-19 OTIS/J&J VACCINE 2021-06-04 00:00:00 Completed [facility] SARS-COV-2 COVID-19 OTIS/J&J VACCINE 2021-06-04 00:00:00 Completed [facility] SARS-COV-2 COVID-19 OTIS/J&J VACCINE 2021-06-04 00:00:00 Completed [facility] SARS-COV-2 COVID-19 OTIS/J&J VACCINE 2021-06-04 00:00:00 Completed [facility] SARS-COV-2 COVID-19 OTIS/J&J VACCINE 2021-06-04 00:00:00 Completed [facility] SARS-COV-2 COVID-19 OTIS/J&J VACCINE 2021-06-04 00:00:00 Completed [facility] SARS-COV-2 COVID-19 OTIS/J&J VACCINE 2021-06-04 00:00:00 Completed [facility] SARS-COV-2 COVID-19 OTIS/J&J VACCINE 2021-06-04 00:00:00 Completed [facility] SARS-COV-2 COVID-19 OTIS/J&J VACCINE 2021-06-04 00:00:00 Completed [facility] SARS-COV-2 COVID-19 OTIS/J&J VACCINE 2021-06-04 00:00:00 Completed [facility] SARS-COV-2 COVID-19 OTIS/J&J VACCINE 2021-06-04 00:00:00 Completed [facility] SARS-COV-2 COVID-19 OTIS/J&J VACCINE 2021-06-04 00:00:00 Completed [facility] SARS-COV-2 COVID-19 OTIS/J&J VACCINE 2021-06-04 00:00:00 Completed [facility] SARS-COV-2 COVID-19 OTIS/J&J VACCINE 2021-06-04 00:00:00 Completed [facility] SARS-COV-2 COVID-19 OTIS/J&J VACCINE 2021-06-04 00:00:00 Completed [facility] SARS-COV-2 COVID-19 OTIS/J&J VACCINE 2021-06-04 00:00:00 Completed [facility] SARS-COV-2 COVID-19 OTIS/J&J VACCINE 2021-06-04 00:00:00 Completed [facility] SARS-COV-2 COVID-19 OTIS/J&J VACCINE 2021-06-04 00:00:00 Completed [facility] SARS-COV-2 COVID-19 OTIS/J&J VACCINE 2021-06-04 00:00:00 Completed [facility] SARS-COV-2 COVID-19 OTIS/J&J VACCINE 2021-06-04 00:00:00 Completed [facility] SARS-COV-2 COVID-19 OTIS/J&J VACCINE 2021-06-04 00:00:00 Completed [facility] SARS-COV-2 COVID-19 OTIS/J&J VACCINE 2021-06-04 00:00:00 Completed [facility] SARS-COV-2 COVID-19 OTIS/J&J VACCINE 2021-06-04 00:00:00 Completed [facility] SARS-COV-2 COVID-19 OTIS/J&J VACCINE 2021-06-04 00:00:00 Completed [facility] SARS-COV-2 COVID-19 OTIS/J&J VACCINE 2021-06-04 00:00:00 Completed [facility] SARS-COV-2 COVID-19 OTIS/J&J VACCINE 2021-06-04 00:00:00 Completed [facility] SARS-COV-2 COVID-19 OTIS/J&J VACCINE 2021-06-04 00:00:00 Completed [facility] SARS-COV-2 COVID-19 OTIS/J&J VACCINE 2021-06-04 00:00:00 Completed [facility] SARS-COV-2 COVID-19 OTIS/J&J VACCINE 2021-06-04 00:00:00 Completed [facility] SARS-COV-2 COVID-19 OTIS/J&J VACCINE 2021-06-04 00:00:00 Completed [facility] SARS-COV-2 COVID-19 OTIS/J&J VACCINE 2021-06-04 00:00:00 Completed [facility] SARS-COV-2 COVID-19 OTIS/J&J VACCINE 2021-06-04 00:00:00 Completed [facility] SARS-COV-2 COVID-19 OTIS/J&J VACCINE 2021-06-04 00:00:00 Completed [facility] SARS-COV-2 COVID-19 OTIS/J&J VACCINE 2021-06-04 00:00:00 Completed [facility] SARS-COV-2 COVID-19 OTIS/J&J VACCINE 2021-06-04 00:00:00 Completed [facility] SARS-COV-2 COVID-19 OTIS/J&J VACCINE 2021-06-04 00:00:00 Completed [facility] SARS-COV-2 COVID-19 OTIS/J&J VACCINE 2021-06-04 00:00:00 Completed [facility] SARS-COV-2 COVID-19 OTIS/J&J VACCINE 2021-06-04 00:00:00 Completed [facility] SARS-COV-2 COVID-19 OTIS/J&J VACCINE 2021-06-04 00:00:00 Completed [facility] SARS-COV-2 COVID-19 OTIS/J&J VACCINE 2021-06-04 00:00:00 Completed [facility] SARS-COV-2 COVID-19 OTIS/J&J VACCINE 2021-06-04 00:00:00 Completed [facility] SARS-COV-2 COVID-19 OTIS/J&J VACCINE 2021-06-04 00:00:00 Completed [facility] SARS-COV-2 COVID-19 OTIS/J&J VACCINE 2021-06-04 00:00:00 Completed [facility] SARS-COV-2 COVID-19 OTIS/J&J VACCINE 2021-06-04 00:00:00 Completed [facility] SARS-COV-2 COVID-19 OTIS/J&J VACCINE 2021-06-04 00:00:00 Completed [facility] SARS-COV-2 COVID-19 OTIS/J&J VACCINE 2021-06-04 00:00:00 Completed [facility] SARS-COV-2 COVID-19 OTIS/J&J VACCINE 2021-06-04 00:00:00 Completed [facility] SARS-COV-2 COVID-19 OTIS/J&J VACCINE 2021-06-04 00:00:00 Completed [facility] SARS-COV-2 COVID-19 OTIS/J&J VACCINE 2021-06-04 00:00:00 Completed [facility] SARS-COV-2 COVID-19 OTIS/J&J VACCINE 2021-06-04 00:00:00 Completed [facility] SARS-COV-2 COVID-19 OTIS/J&J VACCINE 2021-06-04 00:00:00 Completed [facility] SARS-COV-2 COVID-19 OTIS/J&J VACCINE 2021-06-04 00:00:00 Completed [facility] SARS-COV-2 COVID-19 OTIS/J&J VACCINE 2021-06-04 00:00:00 Completed [facility] SARS-COV-2 COVID-19 OTIS/J&J VACCINE 2021-06-04 00:00:00 Completed SARS-COV-2 COVID-19 OTIS/J&J VACCINE 2021-06-04 00:00:00 Completed TDAP (ADACEL) VACCINE 2019-12-03 00:00:00 Completed [facility] TDAP (ADACEL) VACCINE 2019-12-03 00:00:00 Completed [facility] TDAP (ADACEL) VACCINE 2019-12-03 00:00:00 Completed [facility] TDAP (ADACEL) VACCINE 2019-12-03 00:00:00 Completed [facility] TDAP (ADACEL) VACCINE 2019-12-03 00:00:00 Completed [facility] TDAP (ADACEL) VACCINE 2019-12-03 00:00:00 Completed [facility] TDAP (ADACEL) VACCINE 2019-12-03 00:00:00 Completed [facility] TDAP (ADACEL) VACCINE 2019-12-03 00:00:00 Completed [facility] TDAP (ADACEL) VACCINE 2019-12-03 00:00:00 Completed [facility] TDAP (ADACEL) VACCINE 2019-12-03 00:00:00 Completed [facility] TDAP (ADACEL) VACCINE 2019-12-03 00:00:00 Completed [facility] TDAP (ADACEL) VACCINE 2019-12-03 00:00:00 Completed [facility] TDAP (ADACEL) VACCINE 2019-12-03 00:00:00 Completed [facility] TDAP (ADACEL) VACCINE 2019-12-03 00:00:00 Completed [facility] TDAP (ADACEL) VACCINE 2019-12-03 00:00:00 Completed [facility] TDAP (ADACEL) VACCINE 2019-12-03 00:00:00 Completed [facility] TDAP (ADACEL) VACCINE 2019-12-03 00:00:00 Completed [facility] TDAP (ADACEL) VACCINE 2019-12-03 00:00:00 Completed [facility] TDAP (ADACEL) VACCINE 2019-12-03 00:00:00 Completed [facility] TDAP (ADACEL) VACCINE 2019-12-03 00:00:00 Completed [facility] TDAP (ADACEL) VACCINE 2019-12-03 00:00:00 Completed [facility] TDAP (ADACEL) VACCINE 2019-12-03 00:00:00 Completed [facility] TDAP (ADACEL) VACCINE 2019-12-03 00:00:00 Completed [facility] TDAP (ADACEL) VACCINE 2019-12-03 00:00:00 Completed [facility] TDAP (ADACEL) VACCINE 2019-12-03 00:00:00 Completed [facility] TDAP (ADACEL) VACCINE 2019-12-03 00:00:00 Completed [facility] TDAP (ADACEL) VACCINE 2019-12-03 00:00:00 Completed [facility] TDAP (ADACEL) VACCINE 2019-12-03 00:00:00 Completed [facility] TDAP (ADACEL) VACCINE 2019-12-03 00:00:00 Completed [facility] TDAP (ADACEL) VACCINE 2019-12-03 00:00:00 Completed [facility] TDAP (ADACEL) VACCINE 2019-12-03 00:00:00 Completed [facility] TDAP (ADACEL) VACCINE 2019-12-03 00:00:00 Completed [facility] TDAP (ADACEL) VACCINE 2019-12-03 00:00:00 Completed [facility] TDAP (ADACEL) VACCINE 2019-12-03 00:00:00 Completed [facility] TDAP (ADACEL) VACCINE 2019-12-03 00:00:00 Completed [facility] TDAP (ADACEL) VACCINE 2019-12-03 00:00:00 Completed [facility] TDAP (ADACEL) VACCINE 2019-12-03 00:00:00 Completed [facility] TDAP (ADACEL) VACCINE 2019-12-03 00:00:00 Completed [facility] TDAP (ADACEL) VACCINE 2019-12-03 00:00:00 Completed [facility] TDAP (ADACEL) VACCINE 2019-12-03 00:00:00 Completed [facility] TDAP (ADACEL) VACCINE 2019-12-03 00:00:00 Completed [facility] TDAP (ADACEL) VACCINE 2019-12-03 00:00:00 Completed [facility] TDAP (ADACEL) VACCINE 2019-12-03 00:00:00 Completed [facility] TDAP (ADACEL) VACCINE 2019-12-03 00:00:00 Completed [facility] TDAP (ADACEL) VACCINE 2019-12-03 00:00:00 Completed [facility] TDAP (ADACEL) VACCINE 2019-12-03 00:00:00 Completed [facility] TDAP (ADACEL) VACCINE 2019-12-03 00:00:00 Completed [facility] TDAP (ADACEL) VACCINE 2019-12-03 00:00:00 Completed [facility] TDAP (ADACEL) VACCINE 2019-12-03 00:00:00 Completed [facility] TDAP (ADACEL) VACCINE 2019-12-03 00:00:00 Completed [facility] TDAP (ADACEL) VACCINE 2019-12-03 00:00:00 Completed [facility] TDAP (ADACEL) VACCINE 2019-12-03 00:00:00 Completed [facility] TDAP (ADACEL) VACCINE 2019-12-03 00:00:00 Completed [facility] TDAP (ADACEL) VACCINE 2019-12-03 00:00:00 Completed [facility] TDAP (ADACEL) VACCINE 2019-12-03 00:00:00 Completed [facility] TDAP (ADACEL) VACCINE 2019-12-03 00:00:00 Completed [facility] TDAP (ADACEL) VACCINE 2019-12-03 00:00:00 Completed [facility] Adacel (Tdap) Adacel (Tdap) 2019-08-29 13:16:00 Completed [facility] Adacel (Tdap) Adacel (Tdap) 2019-08-29 13:16:00 Completed [facility] TDAP 2019-08-29 00:00:00 Completed [facility] TDAP 2019-08-29 00:00:00 Completed [facility] TDAP 2019-08-29 00:00:00 Completed [facility] TDAP 2019-08-29 00:00:00 Completed [facility] TDAP 2019-08-29 00:00:00 Completed [facility] TDAP 2019-08-29 00:00:00 Completed [facility] TDAP 2019-08-29 00:00:00 Completed [facility] TDAP 2019-08-29 00:00:00 Completed [facility] TDAP 2019-08-29 00:00:00 Completed [facility] TDAP 2019-08-29 00:00:00 Completed [facility] TDAP 2019-08-29 00:00:00 Completed [facility] TDAP 2019-08-29 00:00:00 Completed [facility] TDAP 2019-08-29 00:00:00 Completed [facility] TDAP 2019-08-29 00:00:00 Completed [facility] TDAP 2019-08-29 00:00:00 Completed [facility] TDAP 2019-08-29 00:00:00 Completed [facility] TDAP 2019-08-29 00:00:00 Completed [facility] TDAP 2019-08-29 00:00:00 Completed [facility] TDAP 2019-08-29 00:00:00 Completed [facility] TDAP 2019-08-29 00:00:00 Completed [facility] TDAP 2019-08-29 00:00:00 Completed [facility] TDAP 2019-08-29 00:00:00 Completed [facility] TDAP 2019-08-29 00:00:00 Completed [facility] TDAP 2019-08-29 00:00:00 Completed [facility] TDAP 2019-08-29 00:00:00 Completed [facility] TDAP 2019-08-29 00:00:00 Completed [facility] TDAP 2019-08-29 00:00:00 Completed [facility] TDAP 2019-08-29 00:00:00 Completed [facility] TDAP 2019-08-29 00:00:00 Completed [facility] TDAP 2019-08-29 00:00:00 Completed [facility] TDAP 2019-08-29 00:00:00 Completed [facility] TDAP 2019-08-29 00:00:00 Completed [facility] TDAP 2019-08-29 00:00:00 Completed [facility] TDAP 2019-08-29 00:00:00 Completed [facility] TDAP 2019-08-29 00:00:00 Completed [facility] TDAP 2019-08-29 00:00:00 Completed [facility] TDAP 2019-08-29 00:00:00 Completed TDAP 2019-08-29 00:00:00 Completed Influenza Virus Vaccine Quad .5 mL IM 6+ MO 2019-08-02 00:00:00 Completed [facility] Influenza Virus Vaccine Quad .5 mL IM 6+ MO 2019-08-02 00:00:00 Completed [facility] Influenza Virus Vaccine Quad .5 mL IM 6+ MO 2019-08-02 00:00:00 Completed [facility] Influenza Virus Vaccine Quad .5 mL IM 6+ MO 2019-08-02 00:00:00 Completed [facility] Influenza Virus Vaccine Quad .5 mL IM 6+ MO 2019-08-02 00:00:00 Completed [facility] Influenza Virus Vaccine Quad .5 mL IM 6+ MO 2019-08-02 00:00:00 Completed [facility] Influenza Virus Vaccine Quad .5 mL IM 6+ MO 2019-08-02 00:00:00 Completed [facility] Influenza Virus Vaccine Quad .5 mL IM 6+ MO 2019-08-02 00:00:00 Completed [facility] Influenza Virus Vaccine Quad .5 mL IM 6+ MO 2019-08-02 00:00:00 Completed [facility] Influenza Virus Vaccine Quad .5 mL IM 6+ MO 2019-08-02 00:00:00 Completed [facility] Influenza Virus Vaccine Quad .5 mL IM 6+ MO 2019-08-02 00:00:00 Completed [facility] Influenza Virus Vaccine Quad .5 mL IM 6+ MO 2019-08-02 00:00:00 Completed [facility] Influenza Virus Vaccine Quad .5 mL IM 6+ MO 2019-08-02 00:00:00 Completed [facility] Influenza Virus Vaccine Quad .5 mL IM 6+ MO 2019-08-02 00:00:00 Completed [facility] Influenza Virus Vaccine Quad .5 mL IM 6+ MO 2019-08-02 00:00:00 Completed [facility] Influenza Virus Vaccine Quad .5 mL IM 6+ MO 2019-08-02 00:00:00 Completed [facility] Influenza Virus Vaccine Quad .5 mL IM 6+ MO 2019-08-02 00:00:00 Completed [facility] Influenza Virus Vaccine Quad .5 mL IM 6+ MO 2019-08-02 00:00:00 Completed [facility] Influenza Virus Vaccine Quad .5 mL IM 6+ MO 2019-08-02 00:00:00 Completed [facility] Influenza Virus Vaccine Quad .5 mL IM 6+ MO 2019-08-02 00:00:00 Completed [facility] Influenza Virus Vaccine Quad .5 mL IM 6+ MO 2019-08-02 00:00:00 Completed [facility] Influenza Virus Vaccine Quad .5 mL IM 6+ MO 2019-08-02 00:00:00 Completed [facility] Influenza Virus Vaccine Quad .5 mL IM 6+ MO 2019-08-02 00:00:00 Completed [facility] Influenza Virus Vaccine Quad .5 mL IM 6+ MO 2019-08-02 00:00:00 Completed [facility] Influenza Virus Vaccine Quad .5 mL IM 6+ MO 2019-08-02 00:00:00 Completed [facility] Influenza Virus Vaccine Quad .5 mL IM 6+ MO 2019-08-02 00:00:00 Completed [facility] Influenza Virus Vaccine Quad .5 mL IM 6+ MO 2019-08-02 00:00:00 Completed [facility] Influenza Virus Vaccine Quad .5 mL IM 6+ MO 2019-08-02 00:00:00 Completed [facility] Influenza Virus Vaccine Quad .5 mL IM 6+ MO 2019-08-02 00:00:00 Completed [facility] [facility] Influenza Virus Vaccine Quad .5 mL IM 6+ MO 2019-08-02 00:00:00 Completed [facility] Influenza Virus Vaccine Quad .5 mL IM 6+ MO 2019-08-02 00:00:00 Completed [facility] Influenza Virus Vaccine Quad .5 mL IM 6+ MO 2019-08-02 00:00:00 Completed [facility] Influenza Virus Vaccine Quad .5 mL IM 6+ MO 2019-08-02 00:00:00 Completed [facility] Influenza Virus Vaccine Quad .5 mL IM 6+ MO 2019-08-02 00:00:00 Completed [facility] Influenza Virus Vaccine Quad .5 mL IM 6+ MO 2019-08-02 00:00:00 Completed [facility] Influenza Virus Vaccine Quad .5 mL IM 6+ MO 2019-08-02 00:00:00 Completed [facility] Influenza Virus Vaccine Quad .5 mL IM 6+ MO 2019-08-02 00:00:00 Completed [facility] Influenza Virus Vaccine Quad .5 mL IM 6+ MO 2019-08-02 00:00:00 Completed [facility] Influenza Virus Vaccine Quad .5 mL IM 6+ MO 2019-08-02 00:00:00 Completed [facility] Influenza Virus Vaccine Quad .5 mL IM 6+ MO 2019-08-02 00:00:00 Completed [facility] Influenza Virus Vaccine Quad .5 mL IM 6+ MO 2019-08-02 00:00:00 Completed [facility] Influenza Virus Vaccine Quad .5 mL IM 6+ MO 2019-08-02 00:00:00 Completed [facility] Influenza Virus Vaccine Quad .5 mL IM 6+ MO 2019-08-02 00:00:00 Completed [facility] Influenza Virus Vaccine Quad .5 mL IM 6+ MO 2019-08-02 00:00:00 Completed [facility] Influenza Virus Vaccine Quad .5 mL IM 6+ MO 2019-08-02 00:00:00 Completed [facility] Influenza Virus Vaccine Quad .5 mL IM 6+ MO 2019-08-02 00:00:00 Completed [facility] Influenza Virus Vaccine Quad .5 mL IM 6+ MO 2019-08-02 00:00:00 Completed [facility] Influenza Virus Vaccine Quad .5 mL IM 6+ MO 2019-08-02 00:00:00 Completed [facility] Influenza Virus Vaccine Quad .5 mL IM 6+ MO 2019-08-02 00:00:00 Completed [facility] Influenza Virus Vaccine Quad .5 mL IM 6+ MO 2019-08-02 00:00:00 Completed [facility] Influenza Virus Vaccine Quad .5 mL IM 6+ MO 2019-08-02 00:00:00 Completed [facility] Influenza Virus Vaccine Quad .5 mL IM 6+ MO 2019-08-02 00:00:00 Completed [facility] Influenza Virus Vaccine Quad .5 mL IM 6+ MO 2019-08-02 00:00:00 Completed [facility] Influenza Virus Vaccine Quad .5 mL IM 6+ MO 2019-08-02 00:00:00 Completed [facility] Influenza Virus Vaccine Quad .5 mL IM 6+ MO 2019-08-02 00:00:00 Completed [facility] Influenza Virus Vaccine Quad .5 mL IM 6+ MO (FLUZONE/FLULAVAL/F LUARIX) 2019-08-02 00:00:00 Completed [facility] Influenza Virus Vaccine Quad .5 mL IM 6+ MO (FLUZONE/FLULAVAL/F LUARIX) 2019-08-02 00:00:00 Completed [facility] Afluria single dose Afluria single dose 2019-07-29 13:16:00 Completed [facility] Afluria single dose Afluria single dose 2019-07-29 13:16:00 Completed [facility] Afluria single dose Afluria single dose Unknown Completed [facility] Adacel (Tdap) Adacel (Tdap) Unknown Completed [facility] Influenza Virus Vaccine Quad .5 mL IM 6+ MO (FLUZONE/FLULAVAL/F LUARIX) Unknown Completed [facility] TDAP (ADACEL) VACCINE Unknown Completed [facility] SARS-COV-2 COVID-19 OTIS/J&J VACCINE Unknown Completed [facility] Influenza Virus Vaccine Quad IM, Preserv and ABX Free 6 MO-64 YRS (FLUCELVAX) Unknown Completed [facility] Influenza Virus Vaccine Unknown Completed [facility] Influenza Virus Vaccine Quad .5 mL IM 6+ MO (FLUZONE/FLULAVAL/F LUARIX) Unknown Completed [facility] TDAP (ADACEL) VACCINE Unknown Completed [facility] SARS-COV-2 COVID-19 OTIS/J&J VACCINE Unknown Completed [facility] Influenza Virus Vaccine Unknown Completed [facility] Influenza Virus Vaccine Quad .5 mL IM 6+ MO (FLUZONE/FLULAVAL/F LUARIX) Unknown Completed [facility] TDAP (ADACEL) VACCINE Unknown Completed [facility] SARS-COV-2 COVID-19 OTIS/J&J VACCINE Unknown Completed [facility] Influenza Virus Vaccine Unknown Completed [facility] Influenza Virus Vaccine Quad .5 mL IM 6+ MO (FLUZONE/FLULAVAL/F LUARIX) Unknown Completed [facility] TDAP (ADACEL) VACCINE Unknown Completed [facility] SARS-COV-2 COVID-19 OTIS/J&J VACCINE Unknown Completed [facility] Influenza Virus Vaccine Unknown Completed [facility] Influenza Virus Vaccine Quad .5 mL IM 6+ MO (FLUZONE/FLULAVAL/F LUARIX) Unknown Completed [facility] TDAP (ADACEL) VACCINE Unknown Completed [facility] SARS-COV-2 COVID-19 OTIS/J&J VACCINE Unknown Completed [facility] Influenza Virus Vaccine Unknown Completed [facility] Influenza Virus Vaccine Quad .5 mL IM 6+ MO (FLUZONE/FLULAVAL/F LUARIX) Unknown Completed [facility] TDAP (ADACEL) VACCINE Unknown Completed [facility] SARS-COV-2 COVID-19 OTIS/J&J VACCINE Unknown Completed [facility] Influenza Virus Vaccine Unknown Completed [facility] Influenza Virus Vaccine Quad .5 mL IM 6+ MO (FLUZONE/FLULAVAL/F LUARIX) Unknown Completed [facility] TDAP (ADACEL) VACCINE Unknown Completed [facility] SARS-COV-2 COVID-19 OTIS/J&J VACCINE Unknown Completed [facility] Influenza Virus Vaccine Unknown Completed [facility] Influenza Virus Vaccine Quad .5 mL IM 6+ MO (FLUZONE/FLULAVAL/F LUARIX) Unknown Completed [facility] TDAP (ADACEL) VACCINE Unknown Completed [facility] SARS-COV-2 COVID-19 OTIS/J&J VACCINE Unknown Completed [facility] Influenza Virus Vaccine Unknown Completed [facility] Influenza Virus Vaccine Quad .5 mL IM 6+ MO (FLUZONE/FLULAVAL/F LUARIX) Unknown Completed [facility] TDAP (ADACEL) VACCINE Unknown Completed [facility] SARS-COV-2 COVID-19 OTIS/J&J VACCINE Unknown Completed [facility] Influenza Virus Vaccine Unknown Completed [facility] Influenza Virus Vaccine Quad .5 mL IM 6+ MO (FLUZONE/FLULAVAL/F LUARIX) Unknown Completed [facility] TDAP (ADACEL) VACCINE Unknown Completed [facility] SARS-COV-2 COVID-19 OTIS/J&J VACCINE Unknown Completed [facility] Influenza Virus Vaccine Quad .5 mL IM 6+ MO (FLUZONE/FLULAVAL/F LUARIX) Unknown Completed [facility] TDAP (ADACEL) VACCINE Unknown Completed [facility] SARS-COV-2 COVID-19 OTIS/J&J VACCINE Unknown Completed [facility] Influenza Virus Vaccine Quad .5 mL IM 6+ MO (FLUZONE/FLULAVAL/F LUARIX) Unknown Completed [facility] TDAP (ADACEL) VACCINE Unknown Completed [facility] Influenza Virus Vaccine Quad .5 mL IM 6+ MO (FLUZONE/FLULAVAL/F LUARIX) Unknown Completed [facility] TDAP (ADACEL) VACCINE Unknown Completed [facility] Influenza Virus Vaccine Quad .5 mL IM 6+ MO (FLUZONE/FLULAVAL/F LUARIX) Unknown Completed [facility] TDAP (ADACEL) VACCINE Unknown Completed [facility] Influenza Virus Vaccine Quad .5 mL IM 6+ MO (FLUZONE/FLULAVAL/F LUARIX) Unknown Completed [facility] TDAP (ADACEL) VACCINE Unknown Completed [facility] Influenza Virus Vaccine Quad .5 mL IM 6+ MO (FLUZONE/FLULAVAL/F LUARIX) Unknown Completed [facility] TDAP (ADACEL) VACCINE Unknown Completed [facility] Influenza Virus Vaccine Quad .5 mL IM 6+ MO (FLUZONE/FLULAVAL/F LUARIX) Unknown Completed [facility] TDAP (ADACEL) VACCINE Unknown Completed [facility] Influenza Virus Vaccine Quad .5 mL IM 6+ MO (FLUZONE/FLULAVAL/F LUARIX) Unknown Completed [facility] TDAP (ADACEL) VACCINE Unknown Completed [facility] Influenza Virus Vaccine Quad .5 mL IM 6+ MO (FLUZONE/FLULAVAL/F LUARIX) Unknown Completed [facility] TDAP (ADACEL) VACCINE Unknown Completed [facility] Influenza Virus Vaccine Quad .5 mL IM 6+ MO (FLUZONE/FLULAVAL/F LUARIX) Unknown Completed [facility] TDAP (ADACEL) VACCINE Unknown Completed [facility] Influenza Virus Vaccine Quad .5 mL IM 6+ MO (FLUZONE/FLULAVAL/F LUARIX) Unknown Completed [facility] TDAP (ADACEL) VACCINE Unknown Completed [facility] SARS-COV-2 COVID-19 OTIS/J&J VACCINE Unknown Completed [facility] Influenza Virus Vaccine Quad IM, Preserv and ABX Free 6 MO-64 YRS (FLUCELVAX) Unknown Completed [facility] Influenza Virus Vaccine Unknown Completed [facility] Influenza Virus Vaccine Quad .5 mL IM 6+ MO (FLUZONE/FLULAVAL/F LUARIX) Unknown Completed [facility] TDAP (ADACEL) VACCINE Unknown Completed [facility] SARS-COV-2 COVID-19 OTIS/J&J VACCINE Unknown Completed [facility] Influenza Virus Vaccine Quad IM, Preserv and ABX Free 6 MO-64 YRS (FLUCELVAX) Unknown Completed [facility] Influenza Virus Vaccine Unknown Completed [facility] Influenza Virus Vaccine Quad .5 mL IM 6+ MO (FLUZONE/FLULAVAL/F LUARIX) Unknown Completed [facility] TDAP (ADACEL) VACCINE Unknown Completed [facility] SARS-COV-2 COVID-19 OTIS/J&J VACCINE Unknown Completed [facility] Influenza Virus Vaccine Quad IM, Preserv and ABX Free 6 MO-64 YRS (FLUCELVAX) Unknown Completed [facility] Influenza Virus Vaccine Unknown Completed [facility] Influenza Virus Vaccine Quad .5 mL IM 6+ MO (FLUZONE/FLULAVAL/F LUARIX) Unknown Completed [facility] TDAP (ADACEL) VACCINE Unknown Completed [facility] SARS-COV-2 COVID-19 OTIS/J&J VACCINE Unknown Completed [facility] Influenza Virus Vaccine Quad IM, Preserv and ABX Free 6 MO-64 YRS (FLUCELVAX) Unknown Completed [facility] Influenza Virus Vaccine Unknown Completed [facility] Influenza Virus Vaccine Quad .5 mL IM 6+ MO (FLUZONE/FLULAVAL/F LUARIX) Unknown Completed [facility] TDAP (ADACEL) VACCINE Unknown Completed [facility] SARS-COV-2 COVID-19 OTIS/J&J VACCINE Unknown Completed [facility] Influenza Virus Vaccine Quad IM, Preserv and ABX Free 6 MO-64 YRS (FLUCELVAX) Unknown Completed [facility] Influenza Virus Vaccine Unknown Completed [facility] Influenza Virus Vaccine Quad .5 mL IM 6+ MO (FLUZONE/FLULAVAL/F LUARIX) Unknown Completed [facility] TDAP (ADACEL) VACCINE Unknown Completed [facility] SARS-COV-2 COVID-19 OTIS/J&J VACCINE Unknown Completed [facility] Influenza Virus Vaccine Quad IM, Preserv and ABX Free 6 MO-64 YRS (FLUCELVAX) Unknown Completed [facility] Influenza Virus Vaccine Unknown Completed [facility] Influenza Virus Vaccine Quad .5 mL IM 6+ MO (FLUZONE/FLULAVAL/F LUARIX) Unknown Completed [facility] TDAP (ADACEL) VACCINE Unknown Completed [facility] SARS-COV-2 COVID-19 OTIS/J&J VACCINE Unknown Completed [facility] Influenza Virus Vaccine Quad IM, Preserv and ABX Free 6 MO-64 YRS (FLUCELVAX) Unknown Completed [facility] Influenza Virus Vaccine Unknown Completed [facility] Influenza Virus Vaccine Quad .5 mL IM 6+ MO (FLUZONE/FLULAVAL/F LUARIX) Unknown Completed [facility] TDAP Unknown Completed [facility] SARS-COV-2 COVID-19 OTIS/J&J VACCINE Unknown Completed [facility] Influenza Virus Vaccine Quad IM, Preserv and ABX Free 6 MO-64 YRS (FLUCELVAX) Unknown Completed [facility] Influenza Virus Vaccine Unknown Completed [facility] Influenza Virus Vaccine Quad .5 mL IM 6+ MO (FLUZONE/FLULAVAL/F LUARIX) Unknown Completed [facility] TDAP Unknown Completed [facility] SARS-COV-2 COVID-19 OTIS/J&J VACCINE Unknown Completed [facility] Influenza Virus Vaccine Quad IM, Preserv and ABX Free 6 MO-64 YRS (FLUCELVAX) Unknown Completed [facility] Influenza Virus Vaccine Unknown Completed [facility] Influenza Virus Vaccine Quad .5 mL IM 6+ MO (FLUZONE/FLULAVAL/F LUARIX) Unknown Completed [facility] TDAP Unknown Completed [facility] SARS-COV-2 COVID-19 OTIS/J&J VACCINE Unknown Completed [facility] Influenza Virus Vaccine Quad IM, Preserv and ABX Free 6 MO-64 YRS (FLUCELVAX) Unknown Completed [facility] Influenza Virus Vaccine Unknown Completed [facility] Influenza, Injectable, Mdck, Quadrivalent With Preservative Unknown [...] External Tdap- (Boostrix, Adacel) Unknown Completed Anat Maciasybold - External Influenza, Injectable, Mdck, Quadrivalent With Preservative Unknown Completed Anat Maciasybold - External Influenza, Injectable, Mdck, Preservative Free, Quadrivalent Unknown Completed Anat Maciasybold - External Influenza Virus Vaccine, No Preserv, age 6 months and up Unknown Completed Anat Seybold - External Covid-19 Vaccine (Otis) Unknown Completed Anat Maciasybold - External Tdap- (Boostrix, Adacel) Unknown Completed Anat Maciasybold - External Vital Signs Vital Name Observation Time Observation Value Comments S oureliceo Systolic blood pressure 2025-01-15 16:29:00 123 mm[Hg] Anat Seybo ld - External Diastolic blood pressure 2025-01-15 16:29:00 83 mm[Hg] Anat Seybo ld - External Heart rate 2025-01-15 16:29:00 84 /min Kelse y Seybold - External Respiratory rate 2025-01-15 16:29:00 14 /min Anat Seybold - External Body height 2025-01-15 16:29:00 165.1 cm Brea ey Seybold - External Body weight 2025-01-15 16:29:00 131.09 kg Brea ey Seybold - External BMI 2025-01-15 16:29:00 48.09 kg/m2 Brea ey Seybold - External Systolic blood pressure 2024-12-12 20:38:00 116 mm[Hg] Anat Seybo ld - External Diastolic blood pressure 2024-12-12 20:38:00 81 mm[Hg] Anat Seybo ld - External Heart rate 2024-12-12 20:38:00 81 /min Kelse y Seybold - External Body temperature 2024-12-12 20:38:00 36.89 Silvina Anat Seybold - External Body height 2024-12-12 20:38:00 165.1 cm Brea ey Seybold - External Body weight 2024-12-12 20:38:00 127.098 kg Rbea ey Seybold - External BMI 2024-12-12 20:38:00 [...] External Heart rate 2024-11-26 22:04:00 109 /min Kannanse y Seybold - External Body temperature 2024-11-26 [...] Pulse oximetry 2024-11-26 22:04:00 98 /min Anat Seybo ld - External Systolic blood pressure 2024-10-25 19:03:06 118 mm[Hg] [facility] Diastolic blood pressure 2024-10-25 19:03:06 75 mm[Hg] [facility] Heart rate 2024-10-25 19:03:06 82 /min [facility] Body temperature 2024-10-25 19:03:06 37.06 Silvina [facility] Respiratory rate 2024-10-25 19:03:06 19 /min [facility] Oxygen saturation in Arterial blood by Pulse oximetry 2024-10-25 19:03:06 99 /min [facility] Body height 2024-10-25 17:05:00 165.1 cm [facility] Body weight 2024-10-25 17:05:00 120.203 kg [facility] BMI 2024-10-25 17:05:00 44.10 kg/m2 [facility] Systolic blood pressure 2024-08-30 18:42:00 [...] Systolic blood pressure 2024-07-10 00:58:00 109 mm[Hg] [facility] Diastolic blood pressure 2024-07-10 00:58:00 68 mm[Hg] [facility] Heart rate 2024-07-10 00:58:00 98 /min [facility] Body temperature 2024-07-10 00:58:00 37.11 Silvina [facility] Respiratory rate 2024-07-10 00:58:00 15 /min [facility] Body height 2024-07-10 00:58:00 165.1 cm [facility] Body weight 2024-07-10 00:58:00 118.525 kg [facility] BMI 2024-07-10 00:58:00 43.48 kg/m2 [facility] Oxygen saturation in Arterial blood by Pulse oximetry 2024-07-10 00:58:00 98 /min [facility] Systolic blood pressure 2024-07-04 02:19:00 115 mm[Hg] [facility] Diastolic blood pressure 2024-07-04 02:19:00 72 mm[Hg] [facility] Heart rate 2024-07-04 02:19:00 73 /min [facility] Body temperature 2024-07-04 02:19:00 36.89 Silvina [facility] Respiratory rate 2024-07-04 02:19:00 19 /min [facility] Oxygen saturation in Arterial blood by Pulse oximetry 2024-07-04 02:19:00 97 /min [facility] Body height 2024-07-03 22:28:00 165.1 cm [facility] Body weight 2024-07-03 22:28:00 111.131 kg [facility] BMI 2024-07-03 22:28:00 40.77 kg/m2 [facility] Systolic blood pressure 2024-06-29 01:25:00 113 mm[Hg] [facility] Diastolic blood pressure 2024-06-29 01:25:00 77 mm[Hg] [facility] Heart rate 2024-06-29 01:25:00 86 /min [facility] Body temperature 2024-06-29 01:25:00 36.89 Silvina [facility] Respiratory rate 2024-06-29 01:25:00 18 /min [facility] Body weight 2024-06-29 01:25:00 120.203 kg [facility] BMI 2024-06-29 01:25:00 44.10 kg/m2 [facility] Oxygen saturation in Arterial blood by Pulse oximetry 2024-06-29 01:25:00 100 /min [facility] Systolic blood pressure 2024-06-27 14:40:00 102 mm[Hg] Anat Seybo ld - External Diastolic blood pressure 2024-06-27 14:40:00 60 mm[Hg] Anat ybo ld - External Heart rate 2024-06-27 14:40:00 [...] Systolic blood pressure 2024-06-26 01:19:00 126 mm[Hg] [facility] Diastolic blood pressure 2024-06-26 01:19:00 62 mm[Hg] [facility] Heart rate 2024-06-26 01:19:00 98 /min [facility] Body temperature 2024-06-26 01:19:00 37.5 Silvina [facility] Respiratory rate 2024-06-26 01:19:00 22 /min [facility] Body height 2024-06-26 01:19:00 165.1 cm [facility] Body weight 2024-06-26 01:19:00 119.75 kg [facility] BMI 2024-06-26 01:19:00 43.93 kg/m2 [facility] Oxygen saturation in Arterial blood by Pulse oximetry 2024-06-26 01:19:00 100 /min [facility] Systolic blood pressure 2024-06-06 19:54:00 104 mm[Hg] [...] Systolic blood pressure 2024-05-22 20:07:00 100 mm[Hg] Aant Seybo ld - External Diastolic blood pressure 2024-05-22 20:07:00 60 mm[Hg] Anat Seybo ld - External Heart rate 2024-05-22 20:07:00 97 /min Kelse y Seybold - External Body temperature 2024-05-22 20:07:00 36.67 Silvina Anat Seybold - External Respiratory rate 2024-05-22 20:07:00 18 /min Anat Seybold - External Body height 2024-05-22 20:07:00 165.1 cm Brea ey Seybold - External Body weight 2024-05-22 20:07:00 120.203 kg Brea ey Seybold - External BMI 2024-05-22 20:07:00 44.10 kg/m2 Brea ey Seybold - External Systolic blood pressure 2024-05-13 07:13:00 118 mm[Hg] [facility] Diastolic blood pressure 2024-05-13 07:13:00 86 mm[Hg] [facility] Heart rate 2024-05-13 07:13:00 83 /min [facility] [facility] Body temperature 2024-05-13 07:13:00 36.72 [place] [facility] Respiratory rate 2024-05-13 07:13:00 18 /min [facility] Oxygen saturation in Arterial blood by Pulse oximetry 2024-05-13 07:13:00 100 /min [facility] Body height 2024-05-13 05:03:00 165.1 cm [facility] Body weight 2024-05-13 05:03:00 114.76 kg [facility] BMI 2024-05-13 05:03:00 42.10 kg/m2 [facility] Systolic blood pressure 2023-12-01 06:06:00 128 mm[Hg] [facility] Diastolic blood pressure 2023-12-01 06:06:00 84 mm[Hg] [facility] Heart rate 2023-12-01 06:06:00 88 /min [facility] Body temperature 2023-12-01 06:06:00 36.89 [place] [facility] Respiratory rate 2023-12-01 06:06:00 16 /min [facility] Oxygen saturation in Arterial blood by Pulse oximetry 2023-12-01 06:06:00 100 /min [facility] Body height 2023-12-01 03:03:00 165.1 cm [facility] Body weight 2023-12-01 03:03:00 114.76 kg [facility] BMI 2023-12-01 03:03:00 42.10 kg/m2 [facility] Systolic blood pressure 2023-10-14 05:45:00 128 mm[Hg] [facility] Diastolic blood pressure 2023-10-14 05:45:00 72 mm[Hg] [facility] Heart rate 2023-10-14 05:45:00 77 /min [facility] Body temperature 2023-10-14 05:45:00 36.89 [place] [facility] Respiratory rate 2023-10-14 05:45:00 16 /min [facility] Oxygen saturation in Arterial blood by Pulse oximetry 2023-10-14 05:45:00 100 /min [facility] Body height 2023-10-14 03:39:00 165.1 cm [facility] Body weight 2023-10-14 03:39:00 114.76 kg [facility] BMI 2023-10-14 03:39:00 42.10 kg/m2 [facility] Systolic blood pressure 2023-09-28 01:41:00 129 mm[Hg] [facility] Diastolic blood pressure 2023-09-28 01:41:00 82 mm[Hg] [facility] Heart rate 2023-09-28 01:41:00 76 /min [facility] Body temperature 2023-09-28 01:41:00 37.39 [place] [facility] Respiratory rate 2023-09-28 01:41:00 17 /min [facility] Body weight 2023-09-28 01:41:00 114.76 kg [facility] BMI 2023-09-28 01:41:00 49.41 kg/m2 [facility] Oxygen saturation in Arterial blood by Pulse oximetry 2023-09-28 01:41:00 99 /min [facility] Systolic blood pressure 2023-09-04 06:00:00 124 mm[Hg] [facility] Diastolic blood pressure 2023-09-04 06:00:00 71 mm[Hg] [facility] Heart rate 2023-09-04 06:00:00 96 [facility] Respiratory rate 2023-09-04 06:00:00 20 /min [facility] Oxygen saturation in Arterial blood by Pulse oximetry 2023-09-04 06:00:00 96 /min [facility] Body temperature 2023-09-04 03:04:00 37.22 [place] [facility] Body height 2023-09-04 03:04:00 152.4 cm [facility] Body weight 2023-09-04 03:04:00 108.863 kg [facility] BMI 2023-09-04 03:04:00 46.87 kg/m2 [facility] Systolic blood pressure 2023-08-29 18:00:42 118 mm[Hg] [facility] Diastolic blood pressure 2023-08-29 18:00:42 76 mm[Hg] [facility] Heart rate 2023-08-29 18:00:42 101 /min [facility] Body temperature 2023-08-29 18:00:42 36.78 [place] [facility] Oxygen saturation in Arterial blood by Pulse oximetry 2023-08-29 18:00:42 96 /min [facility] Respiratory rate 2023-08-29 16:20:00 18 /min [facility] Body height 2023-08-29 16:20:00 165.1 cm [facility] Body weight 2023-08-29 16:20:00 108.863 kg [facility] BMI 2023-08-29 16:20:00 39.94 kg/m2 [facility] Systolic blood pressure 2023-02-14 01:09:00 110 mm[Hg] [facility] Diastolic blood pressure 2023-02-14 01:09:00 76 mm[Hg] [facility] Heart rate 2023-02-14 01:09:00 107 /min [facility] Body temperature 2023-02-14 01:09:00 37.11 [place] [facility] Respiratory rate 2023-02-14 01:09:00 14 /min [facility] Body height 2023-02-14 01:09:00 165.1 cm [facility] Body weight 2023-02-14 01:09:00 108.954 kg [facility] BMI 2023-02-14 01:09:00 39.97 kg/m2 [facility] Oxygen saturation in Arterial blood by Pulse oximetry 2023-02-14 01:09:00 98 /min [facility] Systolic blood pressure 2022-11-05 16:30:00 104 mm[Hg] [facility] Diastolic blood pressure 2022-11-05 16:30:00 74 mm[Hg] [facility] Heart rate 2022-11-05 16:30:00 69 /min [facility] Body temperature 2022-11-05 16:30:00 36.89 [place] [facility] Respiratory rate 2022-11-05 16:30:00 18 /min [facility] Body height 2022-11-05 16:30:00 165.1 cm [facility] Body weight 2022-11-05 16:30:00 108.863 kg [facility] BMI 2022-11-05 16:30:00 39.94 kg/m2 [facility] Systolic blood pressure 2022-10-21 16:40:00 113 mm[Hg] [facility] Diastolic blood pressure 2022-10-21 16:40:00 77 mm[Hg] [facility] Heart rate 2022-10-21 16:40:00 94 /min [facility] Body temperature 2022-10-21 16:40:00 36.78 [place] [facility] Respiratory rate 2022-10-21 16:40:00 18 /min [facility] Body height 2022-10-21 16:40:00 165.1 cm [facility] Body weight 2022-10-21 16:40:00 108.863 kg [facility] BMI 2022-10-21 16:40:00 39.94 kg/m2 [facility] Systolic blood pressure 2022-10-13 15:09:00 107 mm[Hg] [facility] Diastolic blood pressure 2022-10-13 15:09:00 76 mm[Hg] [facility] Heart rate 2022-10-13 15:09:00 56 /min [facility] Body temperature 2022-10-13 15:09:00 36.83 [place] [facility] Respiratory rate 2022-10-13 15:09:00 18 /min [facility] Body weight 2022-10-13 15:09:00 109.317 kg [facility] BMI 2022-10-13 15:09:00 40.10 kg/m2 [facility] Systolic blood pressure 2022-09-28 13:13:00 114 mm[Hg] [facility] Diastolic blood pressure 2022-09-28 13:13:00 73 mm[Hg] [facility] Heart rate 2022-09-28 13:13:00 78 /min [facility] Body temperature 2022-09-28 13:13:00 36.22 [place] [facility] Respiratory rate 2022-09-28 13:13:00 16 /min [facility] Oxygen saturation in Arterial blood by Pulse oximetry 2022-09-28 13:13:00 100 /min [facility] Systolic blood pressure 2022-09-24 15:16:00 110 mm[Hg] [facility] Diastolic blood pressure 2022-09-24 15:16:00 76 mm[Hg] [facility] Heart rate 2022-09-24 15:16:00 94 /min [facility] Body temperature 2022-09-24 15:16:00 36.72 [place] [facility] Body height 2022-09-24 15:16:00 165.1 cm [facility] Body weight 2022-09-24 15:16:00 117.981 kg [facility] BMI 2022-09-24 15:16:00 43.28 kg/m2 [facility] Heart rate 2022-09-20 21:45:00 80 /min [facility] Oxygen saturation in Arterial blood by Pulse oximetry 2022-09-20 21:45:00 99 /min [facility] Systolic blood pressure 2022-09-20 21:04:00 108 mm[Hg] [facility] Diastolic blood pressure 2022-09-20 21:04:00 63 mm[Hg] [facility] Body temperature 2022-09-20 21:04:00 37 [place] [facility] Respiratory rate 2022-09-20 21:04:00 18 /min [facility] Body height 2022-09-20 21:04:00 165.1 cm [facility] Body weight 2022-09-20 21:04:00 118.026 kg [facility] BMI 2022-09-20 21:04:00 43.30 kg/m2 [facility] Systolic blood pressure 2022-09-17 16:11:00 110 mm[Hg] [facility] Diastolic blood pressure 2022-09-17 16:11:00 73 mm[Hg] [facility] Heart rate 2022-09-17 16:11:00 90 /min [facility] Body temperature 2022-09-17 16:11:00 36.78 [place] [facility] Respiratory rate 2022-09-17 16:11:00 18 /min [facility] Body height 2022-09-17 16:11:00 165.1 cm [facility] Body weight 2022-09-17 16:11:00 117.482 kg [facility] BMI 2022-09-17 16:11:00 43.10 kg/m2 [facility] Heart rate 2022-09-16 17:15:00 94 /min [facility] Oxygen saturation in Arterial blood by Pulse oximetry 2022-09-16 17:15:00 98 /min [facility] Systolic blood pressure 2022-09-16 16:30:00 112 mm[Hg] [facility] Diastolic blood pressure 2022-09-16 16:30:00 57 mm[Hg] [facility] Body temperature 2022-09-16 16:30:00 36.89 [place] [facility] Body height 2022-09-16 16:30:00 165.1 cm [facility] Body weight 2022-09-16 16:30:00 117.935 kg [facility] BMI 2022-09-16 16:30:00 43.27 kg/m2 [facility] Respiratory rate 2022-09-16 15:41:00 16 /min [facility] Heart rate 2022-09-10 16:30:00 76 /min [facility] Oxygen saturation in Arterial blood by Pulse oximetry 2022-09-10 16:30:00 99 /min [facility] Systolic blood pressure 2022-09-10 14:35:00 114 mm[Hg] [facility] Diastolic blood pressure 2022-09-10 14:35:00 65 mm[Hg] [facility] Body temperature 2022-09-10 14:35:00 36.67 [place] [facility] Respiratory rate 2022-09-10 14:35:00 18 /min [facility] Body weight 2022-09-10 14:12:00 116.075 kg [facility] BMI 2022-09-10 14:12:00 42.58 kg/m2 [facility] Systolic blood pressure 2022-09-09 16:06:00 117 mm[Hg] [facility] Diastolic blood pressure 2022-09-09 16:06:00 78 mm[Hg] [facility] Heart rate 2022-09-09 16:06:00 93 /min [facility] Body temperature 2022-09-09 16:06:00 37 [place] [facility] Respiratory rate 2022-09-09 16:06:00 16 /min [facility] Body height 2022-09-09 16:06:00 165.1 cm [facility] Body weight 2022-09-09 16:06:00 115.803 kg [facility] BMI 2022-09-09 16:06:00 42.48 kg/m2 [facility] Oxygen saturation in Arterial blood by Pulse oximetry 2022-09-09 16:06:00 98 /min [facility] Systolic blood pressure 2022-09-08 03:00:00 101 mm[Hg] [facility] Diastolic blood pressure 2022-09-08 03:00:00 56 mm[Hg] [facility] Heart rate 2022-09-08 03:00:00 89 /min [facility] Oxygen saturation in Arterial blood by Pulse oximetry 2022-09-08 03:00:00 99 /min [facility] Body temperature 2022-09-08 01:23:00 37.06 [place] [facility] Respiratory rate 2022-09-08 01:23:00 18 /min [facility] Body height 2022-09-08 01:23:00 165.1 cm [facility] Body weight 2022-09-08 01:23:00 116.937 kg [facility] BMI 2022-09-08 01:23:00 42.90 kg/m2 [facility] Heart rate 2022-09-05 03:57:00 79 /min [facility] Arterial blood by Pulse oximetry 2022-09-05 03:57:00 99 /min [facility] Systolic blood pressure 2022-09-05 03:30:00 121 mm[Hg] [facility] Diastolic blood pressure 2022-09-05 03:30:00 73 mm[Hg] [facility] Body temperature 2022-09-05 03:00:00 36.5 [place] [facility] Respiratory rate 2022-09-05 03:00:00 16 /min [facility] Body height 2022-09-05 02:45:00 165.1 cm [facility] Body weight 2022-09-05 02:45:00 116.937 kg [facility] BMI 2022-09-05 02:45:00 42.90 kg/m2 [facility] Heart rate 2022-09-02 12:32:00 75 /min [facility] Oxygen saturation in Arterial blood by Pulse oximetry 2022-09-02 12:32:00 99 /min [facility] Systolic blood pressure 2022-09-02 10:55:00 121 mm[Hg] [facility] Diastolic blood pressure 2022-09-02 10:55:00 73 mm[Hg] [facility] Body temperature 2022-09-02 10:55:00 36.61 [place] [facility] Respiratory rate 2022-09-02 10:55:00 19 /min [facility] Body height 2022-09-02 10:55:00 165.1 cm [facility] Body weight 2022-09-02 10:55:00 115.304 kg [facility] BMI 2022-09-02 10:55:00 42.30 kg/m2 [facility] Systolic blood pressure 2022-09-01 21:55:00 113 mm[Hg] [facility] Diastolic blood pressure 2022-09-01 21:55:00 74 mm[Hg] [facility] Heart rate 2022-09-01 21:55:00 97 /min [facility] Body temperature 2022-09-01 21:55:00 36.67 [place] [facility] Respiratory rate 2022-09-01 21:55:00 20 /min [facility] Body height 2022-09-01 21:55:00 165.1 cm [facility] Body weight 2022-09-01 21:55:00 115.696 kg [facility] BMI 2022-09-01 21:55:00 42.44 kg/m2 [facility] Systolic blood pressure 2022-08-27 16:48:00 117 mm[Hg] [facility] Diastolic blood pressure 2022-08-27 16:48:00 76 mm[Hg] [facility] Heart rate 2022-08-27 16:48:00 84 /min [facility] Body temperature 2022-08-27 16:48:00 36.89 [place] [facility] Respiratory rate 2022-08-27 16:48:00 16 /min [facility] Body height 2022-08-27 16:48:00 165.1 cm [facility] Body weight 2022-08-27 16:48:00 115.123 kg [facility] BMI 2022-08-27 16:48:00 42.23 kg/m2 [facility] Oxygen saturation in Arterial blood by Pulse oximetry 2022-08-27 16:48:00 99 /min [facility] Heart rate 2022-08-23 02:00:00 90 /min [facility] Oxygen saturation in Arterial blood by Pulse oximetry 2022-08-23 02:00:00 100 /min [facility] Systolic blood pressure 2022-08-22 23:34:00 119 mm[Hg] [facility] Diastolic blood pressure 2022-08-22 23:34:00 65 mm[Hg] [facility] Body temperature 2022-08-22 23:34:00 36.33 [place] [facility] Respiratory rate 2022-08-22 23:34:00 16 /min [facility] Body height 2022-08-22 23:34:00 165.1 cm [facility] Body weight 2022-08-22 23:34:00 115.667 kg [facility] BMI 2022-08-22 23:34:00 42.43 kg/m2 [facility] Systolic blood pressure 2022-08-14 01:14:00 105 mm[Hg] [facility] Diastolic blood pressure 2022-08-14 01:14:00 59 mm[Hg] [facility] Heart rate 2022-08-14 01:14:00 87 /min [facility] Body temperature 2022-08-14 01:14:00 36.44 [place] [facility] Respiratory rate 2022-08-14 01:14:00 16 /min [facility] Oxygen saturation in Arterial blood by Pulse oximetry 2022-08-14 01:14:00 98 /min [facility] Body height 2022-08-14 00:23:00 165.1 cm [facility] Body weight 2022-08-14 00:23:00 113.853 kg 251lb [facility] BMI 2022-08-14 00:23:00 41.77 kg/m2 [facility] Systolic blood pressure 2022-08-13 14:37:00 104 mm[Hg] [facility] Diastolic blood pressure 2022-08-13 14:37:00 72 mm[Hg] [facility] Heart rate 2022-08-13 14:37:00 97 /min [facility] Body temperature 2022-08-13 14:37:00 36.89 [place] [facility] Respiratory rate 2022-08-13 14:37:00 18 /min [facility] Body height 2022-08-13 14:37:00 165.1 cm [facility] Body weight 2022-08-13 14:37:00 113.807 kg [facility] BMI 2022-08-13 14:37:00 41.75 kg/m2 [facility] Systolic blood pressure 2022-08-09 16:05:00 107 mm[Hg] [facility] Diastolic blood pressure 2022-08-09 16:05:00 74 mm[Hg] [facility] Heart rate 2022-08-09 16:05:00 84 /min [facility] Body temperature 2022-08-09 16:05:00 36.78 [place] [facility] Respiratory rate 2022-08-09 16:05:00 16 /min [facility] Body height 2022-08-09 16:05:00 165.1 cm [facility] Body weight 2022-08-09 16:05:00 114.306 kg [facility] BMI 2022-08-09 16:05:00 41.93 kg/m2 [facility] Oxygen saturation in Arterial blood by Pulse oximetry 2022-08-09 16:05:00 98 /min [facility] Heart rate 2022-08-08 21:30:00 89 /min [facility] Oxygen saturation in Arterial blood by Pulse oximetry 2022-08-08 21:30:00 99 /min [facility] Systolic blood pressure 2022-08-08 20:45:00 121 mm[Hg] [facility] Diastolic blood pressure 2022-08-08 20:45:00 65 mm[Hg] [facility] Body temperature 2022-08-08 20:45:00 36.61 [place] [facility] Respiratory rate 2022-08-08 20:45:00 16 /min [facility] Body height 2022-08-08 20:22:00 165.1 cm [facility] Body weight 2022-08-08 20:22:00 113.853 [facility] BMI 2022-08-08 20:22:00 41.77 kg/m2 [facility] Systolic blood pressure 2022-08-02 13:35:00 111 mm[Hg] [facility] Diastolic blood pressure 2022-08-02 13:35:00 69 mm[Hg] [facility] Heart rate 2022-08-02 13:35:00 87 /min [facility] Body temperature 2022-08-02 13:35:00 37.11 [place] [facility] Respiratory rate 2022-08-02 13:35:00 16 /min [facility] Body height 2022-08-02 13:35:00 165.1 cm [facility] Body weight 2022-08-02 13:35:00 112.719 kg [facility] BMI 2022-08-02 13:35:00 41.35 kg/m2 [facility] Oxygen saturation in Arterial blood by Pulse oximetry 2022-08-02 13:35:00 97 /min [facility] Systolic blood pressure 2022-07-31 12:17:00 112 mm[Hg] [facility] Diastolic blood pressure 2022-07-31 12:17:00 72 mm[Hg] [facility] Heart rate 2022-07-31 12:17:00 82 /min [facility] Body temperature 2022-07-31 12:17:00 36.83 [place] [facility] Respiratory rate 2022-07-31 12:17:00 18 /min [facility] Body height 2022-07-31 12:17:00 165.1 cm [facility] Body weight 2022-07-31 12:17:00 111.585 kg [facility] BMI 2022-07-31 12:17:00 40.94 kg/m2 [facility] Oxygen saturation in Arterial blood by Pulse oximetry 2022-07-31 12:17:00 96 /min [facility] Systolic blood pressure 2022-07-30 18:23:00 112 mm[Hg] [facility] Diastolic blood pressure 2022-07-30 18:23:00 75 mm[Hg] [facility] Heart rate 2022-07-30 18:23:00 88 /min [facility] Body temperature 2022-07-30 18:23:00 36.89 [place] [facility] Respiratory rate 2022-07-30 18:23:00 16 /min [facility] Body height 2022-07-30 18:23:00 165.1 cm [facility] Body weight 2022-07-30 18:23:00 111.766 kg [facility] BMI 2022-07-30 18:23:00 41.00 kg/m2 [facility] Oxygen saturation in Arterial blood by Pulse oximetry 2022-07-30 18:23:00 98 /min [facility] Systolic blood pressure 2022-07-30 03:08:00 114 mm[Hg] [facility] Diastolic blood pressure 2022-07-30 03:08:00 73 mm[Hg] [facility] Heart rate 2022-07-30 03:08:00 95 /min [facility] Body temperature 2022-07-30 03:08:00 36.78 [place] [facility] Respiratory rate 2022-07-30 03:08:00 18 /min [facility] Oxygen saturation in Arterial blood by Pulse oximetry 2022-07-30 03:08:00 98 /min [facility] Body height 2022-07-30 02:42:00 165.1 cm [facility] Body weight 2022-07-30 02:42:00 112.537 kg [facility] BMI 2022-07-30 02:42:00 41.29 kg/m2 [facility] Heart rate 2022-07-25 01:00:00 85 /min [facility] Oxygen saturation in Arterial blood by Pulse oximetry 2022-07-25 01:00:00 99 /min [facility] Systolic blood pressure 2022-07-25 00:15:00 103 mm[Hg] [facility] Diastolic blood pressure 2022-07-25 00:15:00 57 mm[Hg] [facility] Body temperature 2022-07-25 00:15:00 36.78 [place] [facility] Respiratory rate 2022-07-25 00:15:00 16 /min [facility] Body height 2022-07-24 23:27:00 162.6 cm [facility] Body weight 2022-07-24 23:27:00 110.678 kg [facility] BMI 2022-07-24 23:27:00 41.88 kg/m2 [facility] Systolic blood pressure 2022-07-23 18:19:00 104 mm[Hg] [facility] Diastolic blood pressure 2022-07-23 18:19:00 68 mm[Hg] [facility] Heart rate 2022-07-23 18:19:00 74 /min [facility] Body temperature 2022-07-23 18:19:00 36.72 [place] [facility] Respiratory rate 2022-07-23 18:19:00 16 /min [facility] Body height 2022-07-23 18:19:00 165.1 cm [facility] Body weight 2022-07-23 18:19:00 113.127 kg [facility] BMI 2022-07-23 18:19:00 41.50 kg/m2 [facility] Oxygen saturation in Arterial blood by Pulse oximetry 2022-07-23 18:19:00 98 /min [facility] Heart rate 2022-07-21 15:30:00 87 /min [facility] Oxygen saturation in Arterial blood by Pulse oximetry 2022-07-21 15:30:00 100 /min [facility] Systolic blood pressure 2022-07-21 13:34:00 112 mm[Hg] [facility] Diastolic blood pressure 2022-07-21 13:34:00 61 mm[Hg] [facility] Body temperature 2022-07-21 13:34:00 37 Silvina [facility] Respiratory rate 2022-07-21 13:34:00 18 /min [facility] Body height 2022-07-21 13:34:00 165.1 cm [facility] weight 2022-07-21 13:34:00 112.311 kg Univ [facility] BMI 2022-07-21 13:34:00 41.20 kg/m2 Univ [facility] Systolic blood pressure 2022-07-16 16:35:00 103 mm[Hg] [facility] Diastolic blood pressure 2022-07-16 16:35:00 72 mm[Hg] [facility] Heart rate 2022-07-16 16:35:00 90 /min [facility] Respiratory rate 2022-07-16 16:35:00 18 /min [facility] Body height 2022-07-16 16:35:00 162.6 cm [facility] Body weight 2022-07-16 16:35:00 111.54 kg Univ [facility] BMI 2022-07-16 16:35:00 42.21 kg/m2 [facility] Oxygen saturation in Arterial blood by Pulse oximetry 2022-07-16 16:35:00 98 /min [facility] Systolic blood pressure 2022-07-14 16:41:00 104 mm[Hg] [facility] Diastolic blood pressure 2022-07-14 16:41:00 70 mm[Hg] [facility] Heart rate 2022-07-14 16:41:00 68 /min [facility] Body temperature 2022-07-14 16:41:00 36.83 Silvina [facility] Respiratory rate 2022-07-14 16:41:00 18 /min [facility] Body height 2022-07-14 16:41:00 165.1 cm [facility] Body weight 2022-07-14 16:41:00 111.131 kg Univ [facility] BMI 2022-07-14 16:41:00 40.77 kg/m2 [facility] Systolic blood pressure 2022-07-11 13:49:00 108 mm[Hg] [facility] Diastolic blood pressure 2022-07-11 13:49:00 52 mm[Hg] [facility] Body temperature 2022-07-11 13:49:00 36.72 Silvina [facility] Respiratory rate 2022-07-11 13:49:00 18 /min [facility] Oxygen saturation in Arterial blood by Pulse oximetry 2022-07-11 13:49:00 100 /min [facility] Heart rate 2022-07-11 11:15:00 89 /min [facility] Body height 2022-07-11 01:10:00 165.1 cm [facility] Body weight 2022-07-11 01:10:00 111.585 kg [facility] BMI 2022-07-11 01:10:00 40.94 kg/m2 [facility] Systolic blood pressure 2022-06-30 15:31:00 109 mm[Hg] [facility] Diastolic blood pressure 2022-06-30 15:31:00 73 mm[Hg] [facility] Heart rate 2022-06-30 15:31:00 77 /min [facility] Respiratory rate 2022-06-30 15:31:00 18 /min [facility] Body height 2022-06-30 15:31:00 165.1 cm [facility] Body weight 2022-06-30 15:31:00 110.406 kg [facility] BMI 2022-06-30 15:31:00 40.50 kg/m2 [facility] Oxygen saturation in Arterial blood by Pulse oximetry 2022-06-30 15:31:00 97 /min [facility] Systolic blood pressure 2022-06-25 16:14:00 110 mm[Hg] [facility] Diastolic blood pressure 2022-06-25 16:14:00 72 mm[Hg] [facility] Heart rate 2022-06-25 16:14:00 117 /min [facility] Body temperature 2022-06-25 16:14:00 36.83 Silvina [facility] Respiratory rate 2022-06-25 16:14:00 18 /min [facility] Body height 2022-06-25 16:14:00 165.1 cm [facility] Body weight 2022-06-25 16:14:00 111.086 kg [facility] BMI 2022-06-25 16:14:00 40.75 kg/m2 [facility] height 2022-01-12 14:00:00 64 [in_i] Commo n [facility] weight 2022-01-12 14:00:00 244.6 [lb_av] Co mmon [facility] temperature 2022-01-12 14:00:00 97.9 [degF] Com mon [facility] bmi 2022-01-12 14:00:00 41.98 kg/m2 Comm on [facility] oximetry 2022-01-12 14:00:00 99 % Commo n [facility] respiratory rate 2022-01-12 14:00:00 17 /min [facility] blood pressure systolic 2022-01-12 14:00:00 124 mm[Hg] [facility] blood pressure diastolic 2022-01-12 14:00:00 75 mm[Hg] [facility] height 2021-07-10 09:40:00 64 [in_i] Commo n [facility] weight 2021-07-10 09:40:00 240 [lb_av] Comm on [facility] temperature 2021-07-10 09:40:00 98 [degF] Comm on [facility] bmi 2021-07-10 09:40:00 41.19 kg/m2 Comm on [facility] height 2021-04-09 11:10:00 64 [in_i] Commo n [facility] weight 2021-04-09 11:10:00 240 [lb_av] Comm on [facility] temperature 2021-04-09 11:10:00 97.5 [degF] Com mon [facility] bmi 2021-04-09 11:10:00 41.19 kg/m2 Comm on [facility] height 2021-03-05 13:00:00 64 [in_i] Commo n [facility] weight 2021-03-05 13:00:00 240 [lb_av] Comm on [facility] temperature 2021-03-05 13:00:00 98 [degF] Comm on [facility] bmi 2021-03-05 13:00:00 41.19 kg/m2 Comm on [facility] height 2021-02-04 16:00:00 64 [in_i] Commo n [facility] weight 2021-02-04 16:00:00 245.0 [lb_av] Co mmon [facility] temperature 2021-02-04 16:00:00 97.1 [degF] Com mon [facility] bmi 2021-02-04 16:00:00 42.05 kg/m2 Comm on [facility] oximetry 2021-02-04 16:00:00 98 % Commo n [facility] respiratory rate 2021-02-04 16:00:00 17 /min [facility] blood pressure systolic 2021-02-04 16:00:00 116 mm[Hg] [facility] blood pressure diastolic 2021-02-04 16:00:00 68 mm[Hg] [facility] Procedures Procedure Date / Time Performed Performing Clinician Source XR ANKLE 3+ VW LEFT 2024-10-25 17:37:22 Alejandro Pfeiffer [facility] XR FOOT 3+ VW LEFT 2024-10-25 17:37:22 Alejandro Pfeiffer [facility] POCT MOLECULAR STREP 2024-07-10 00:53:00 Leonor Mueller [facility] TROPONIN I 2024-07-04 00:51:00 Jarrett Navarro [facility] COMP. METABOLIC PANEL (00318) 2024-07-04 00:51:00 Jarrett Navarro [facility] CBC WITH DIFF 2024-07-04 00:51:00 Jarrett Navarro [facility] D-DIMER 2024-07-04 00:51:00 [facility] N-TERMINAL PRO-BNP 2024-07-04 00:51:00 Jarrett Navarro [facility] POCT MOLECULAR STREP 2024-06-29 01:25:00 Unknown, Atte gagandeeping [facility] POCT TEST 2024-05-13 06:36:00 Brooklynn Nagy [facility] XR KNEE <3 VW RIGHT 2024-05-13 06:12:16 Brooklynn Nagy [facility] COMP. METABOLIC PANEL ([id number]) 2023-12-01 04:34:00 Gildardo Dunne [facility] CBC WITH DIFF 2023-12-01 04:34:00 Gildardo Dunne [facility] URINALYSIS 2023-12-01 04:34:00 Gildardo Dunne [facility] POCT TEST 2023-12-01 04:33:00 Gildardo Dunne [facility] XR KNEE 3 VW RIGHT 2023-12-01 04:24:34 Gildardo Dunne [facility] ASSIGNMENT OF BENEFITS 2023-12-01 03:21:42 Docto r Unassigned, [place] [facility] NOTICE OF PRIVACY PRACTICES 2023-12-01 02:41:06 Doctor Unassigned, [place] [facility] CONSENT/REFUSAL FOR DIAGNOSIS AND TREATMENT 2023-12-01 02:40:06 Doctor Unassigned, [place] [facility] ASSIGNMENT OF BENEFITS 2023-10-14 04:37:08 Docto r Unassigned, [place] [facility] XR HIPS 2 VW RIGHT 2023-10-14 04:26:25 Elen Benedict [facility] XR PELVIS <3 VW 2023-10-14 04:26:25 Elen Benedict [facility] POCT TEST 2023-10-14 04:08:00 Elen Benedict [facility] CONSENT/REFUSAL FOR DIAGNOSIS AND TREATMENT 2023-10-14 03:26:58 Doctor Unassigned, [place] [facility] POCT MOLECULAR FLU 2023-09-28 01:49:00 Unknown, Attend ing [facility] POCT MOLECULAR STREP 2023-09-28 01:43:00 Unknown, Atte piedad [facility] CONSENT/REFUSAL FOR DIAGNOSIS AND TREATMENT 2023-09-28 01:24:42 Doctor Unassigned, [place] [facility] XR CHEST 1 VW 2023-09-04 03:28:00 Elen Benedict [facility] CONSENT/REFUSAL FOR DIAGNOSIS AND TREATMENT 2023-09-04 02:58:37 Doctor Unassigned, [place] [facility] POCT TEST 2023-08-29 16:59:00 Gustavo [facility] URINALYSIS 2023-08-29 16:55:00 Gustavo [facility] RAPID STREP SCREEN FOR GROUP A 2023-08-29 16:45:00 Gustavo [facility] RAPID INFLUENZA A/B 2023-08-29 16:45:00 Gustavo [facility] COVID-19 (ID NOW RAPID TESTING) 2023-08-29 16:45:00 Gustavo [facility] CONSENT/REFUSAL FOR DIAGNOSIS AND TREATMENT 2023-08-29 16:17:13 Doctor Unassigned, [place] [facility] POCT MOLECULAR STREP 2023-02-14 01:10:00 Unknown, Attblair herbert [facility] CONSENT FOR CONTRACEPTION 2022-11-05 06:01:00 Doctor Unassigned, [place] [facility] POCT TEST 2022-11-05 00:00:00 Josette Cheung [facility] CBC WITH DIFF 2022-09-28 10:16:00 Josette Cheung [facility] CENTRAL NEURAXIAL BLOCK 2022-09-27 17:43:59 Lila Peterson [facility] POCT URINALYSIS W/O SPECIFIC GRAVITY 2022-09-24 00:00:00 Kortney Trejo [facility] ADC ONLY - FERN TEST 2022-09-20 21:22:00 Jonatan Josette Pereyra [facility] CONSENT/REFUSAL FOR DIAGNOSIS AND TREATMENT 2022-09-20 20:41:32 Doctor Unassigned, [place] [facility] POCT URINALYSIS W/O SPECIFIC GRAVITY 2022-09-17 00:00:00 Josette Cheung [facility] ASSIGNMENT OF BENEFITS 2022-09-16 15:34:10 Docto r Unassigned, [place] [facility] CONSENT/REFUSAL FOR DIAGNOSIS AND TREATMENT 2022-09-16 15:33:45 Doctor Unassigned, [place] [facility] CONSENT/REFUSAL FOR DIAGNOSIS AND TREATMENT 2022-09-10 13:59:02 Doctor Unassigned, [place] [facility] POCT URINALYSIS W/O SPECIFIC GRAVITY 2022-09-01 21:55:00 Kortney Trejo [facility] POCT URINALYSIS W/O SPECIFIC GRAVITY 2022-08-27 00:00:00 Josette Cheung [facility] ADC ONLY - FERN TEST 2022-08-23 00:32:00 Kimberlyn Sr [facility] CONSENT/REFUSAL FOR DIAGNOSIS AND TREATMENT 2022-08-22 23:10:08 Doctor Unassigned, [place] [facility] ASSIGNMENT OF BENEFITS 2022-08-22 23:09:40 Docto r Unassigned, [place] [facility] ASSIGNMENT OF BENEFITS 2022-08-13 23:59:39 Docto r Unassigned, [place] [facility] CONSENT/REFUSAL FOR DIAGNOSIS AND TREATMENT 2022-08-13 23:55:23 Doctor Unassigned, [place] [facility] POCT URINALYSIS W/O SPECIFIC GRAVITY 2022-08-13 00:00:00 Josette Cheung [facility] CONSENT/REFUSAL FOR DIAGNOSIS AND TREATMENT 2022-08-08 20:14:56 Doctor Unassigned, [place] [facility] LIPASE 2022-07-31 13:17:00 Jarvis Mcqueen [facility] COMP. METABOLIC PANEL ([id number]) 2022-07-31 13:17:00 Jarvis Mcqueen [facility] CBC WITH DIFF 2022-07-31 13:17:00 [facility] URINALYSIS 2022-07-31 13:17:00 [facility] CONSENT/REFUSAL FOR DIAGNOSIS AND TREATMENT 2022-07-31 12:19:27 Doctor Unassigned, [place] [facility] ADC ONLY - FERN TEST 2022-07-30 03:23:00 Kimberlyn Sr [facility] CONSENT/REFUSAL FOR DIAGNOSIS AND TREATMENT 2022-07-30 02:31:49 Doctor Unassigned, [place] [facility] POCT URINALYSIS W/O SPECIFIC GRAVITY 2022-07-30 00:00:00 Kortney Trejo [facility] AUTHORIZATION FOR RELEASE OF PHI 2022-07-29 05:01:00 Doctor Unassigned, [place] [facility] CONSENT/REFUSAL FOR DIAGNOSIS AND TREATMENT 2022-07-24 23:17:55 Doctor Unassigned, [place] [facility] ASSIGNMENT OF BENEFITS 2022-07-24 23:17:39 Docto r Unassigned, [place] [facility] TDAP VACCINE, >11 YRS, IM 2022-07-23 18:09:53 Kortney Trejo [facility] FLU VACC (), 6 MO-64 YRS, .5ML, IM, QUAD (FLUCELVAX) 2022-07-23 18:09:53 Kortney Trejo [facility] URINALYSIS 2022-07-21 14:02:00 Josette Cheung [facility] ADC CLC OR LCC ONLY - WET PREP 2022-07-21 14:02:00 Josette Cheung [facility] CONSENT/REFUSAL FOR DIAGNOSIS AND TREATMENT 2022-07-21 13:13:42 Doctor Unassigned, [place] [facility] ASSIGNMENT OF BENEFITS 2022-07-21 13:13:23 Docto r Unassigned, [place] [facility] POCT URINALYSIS W/O SPECIFIC GRAVITY 2022-07-16 16:39:00 Josette Cheung [facility] SCANNED LAB RESULTS 2022-07-16 05:01:00 Doctor Krupa urban, [place] [facility] ADC CLC OR LCC ONLY - WET PREP 2022-07-11 01:46:00 Sam Bradley [facility] ONLY - FERN TEST 2022-07-11 01:44:00 Sam Bradley [facility] ASSIGNMENT OF BENEFITS 2022-07-11 00:47:49 Docto r Unassigned, [place] [facility] POCT URINALYSIS W/O SPECIFIC GRAVITY 2022-06-30 15:32:00 Kortney Trejo [facility] ASSIGNMENT OF BENEFITS 2022-06-28 15:33:01 Docto r Unassigned, [place] [facility] POCT URINALYSIS W/O SPECIFIC GRAVITY 2022-06-25 00:00:00 Kortney Trejo [facility] MR Knee wo contrast [id number] 2018-08-25 00:00:00 [facility] US Extremity lower venous doppler bilat [id number] 2018-08-25 00:00:00 [facility] Encounters Start Date/Time End Date/Time Encounter Type Admission Type Attending Clinicians Care Facility Care Department Encounter ID Source 2022-12-28 07:26:01 Outpatient [facility] [id number] [facility] 2022-07-11 11:05:16 Outpatient KIMBERLYN LAMBERT [facility] [id number] [facility] 2021-11-04 13:55:18 Outpatient Langford, Fernandez [facility] ST[facility] [id number] [facility] 2021-11-04 13:10:23 Outpatient Langford, [facility] [id number] [facility] 2021-11-04 12:57:22 Outpatient Langford, Fernandez [facility] [id number] [facility] 2021-11-04 12:25:15 Outpatient Langford, Fernandez [facility] [id number] [facility] 2021-11-04 12:13:17 Outpatient Langford, Fernandez [facility] [id number] [facility] 2021-11-04 12:00:49 [facility] [id number] [facility] 2021-11-04 11:54:10 [facility] [id number] [facility] 2021-11-04 11:51:45 [facility] [id number] [facility] 2021-08-11 08:26:00 Emergency [facility] [id number] [facility] 2021-08-10 22:05:53 Emergency [facility] [id number] [facility] 2021-08-06 18:42:34 Outpatient P [facility] [id number] [facility] 2021-08-06 18:05:33 Outpatient P [facility] [id number] [facility] 2021-08-06 18:04:40 Outpatient P [facility] [id number] [facility] 2025-03-20 10:45:00 2025-03-20 10:45:00 Outpatient SANTY YARBROUGH [id number] [facility] 2025-02-21 12:30:00 2025-02-21 12:30:00 Outpatient ANAT MERRITT [id number] [facility] 2025-02-13 14:45:00 2025-02-13 14:45:00 Outpatient SANTY YARBROUGH [id number] [facility] [place] 2025-01-28 10:00:00 2025-01-28 10:00:00 Outpatient SANTY YARBROUGH [id number] [facility] 2025-01-24 14:30:00 2025-01-24 14:30:00 Outpatient LEPOIDEVIN, SANTY MERRITT [id number] [facility] 2025-01-24 00:00:00 2025-01-24 00:00:00 Outpatient LEPOIDEVIN, SANTY MERRITT [id number] [facility] 2025-01-17 00:00:00 2025-01-17 00:00:00 Outpatient LEPOIDEVIN, SANTY MERRITT [id number] [facility] 2025-01-16 00:00:00 2025-01-16 00:00:00 Outpatient LEPOIDEVIN, SANTY MERRITT [id number] [facility] 2025-01-15 13:45:00 2025-01-15 13:45:00 Outpatient TALAT MERRITT [id number] [facility] 2025-01-15 11:45:00 2025-01-15 11:45:00 Outpatient LEPOIDEVIN, [facility] [id number] [facility]25-[facility]-14 00:00:00 2025-01-14 00:00:00 Outpatient LEPOIDEVIN, SANTY MERRITT [id number] [facility] 2025-01-07 00:00:00 2025-01-07 00:00:00 Outpatient LEPOIDEVIN, SANTY MERRITT [id number] [facility] 2025-01-02 00:00:00 2025-01-02 00:00:00 Outpatient LOREN HERNANDEZ [id number] [facility] 2024-12-26 13:10:00 2024-12-26 13:10:00 Outpatient DEBBIE RUBIN [id number] [facility] 2024-12-26 09:00:00 2024-12-26 09:00:00 Outpatient LOREN HERNANDEZ [id number] [facility] 2024-12-25 00:00:00 2024-12-25 00:00:00 Outpatient LEPOIDEVIN, SANTY MERRITT [id number] [facility] 2024-12-21 11:00:00 2024-12-21 11:00:00 Outpatient RUBINCHANDNIDEBBIE ANAT MERRITT [id number] Anat [facility] 2024-12-20 00:00:00 2024-12-20 00:00:00 Outpatient DEBBIE RUBIN [id number] An[facility] 2024-12-19 10:40:00 2024-12-19 10:40:00 Outpatient DEBBIE RUBIN [id number] [facility] 2024-12-17 16:00:00 2024-12-17 16:00:00 Outpatient LEPOIDEVIN, SANTY MERRITT [id number] An[facility] 2024-12-13 00:00:00 2024-12-13 00:00:00 Outpatient LEPOIDEVIN, SANTY MERRITT [id number] [facility] 2024-12-12 14:30:00 2024-12-12 14:30:00 Outpatient LEPOIDEVIN, SANTY MERRITT [id number] [facility] 2024-12-07 11:00:00 2024-12-07 11:00:00 Outpatient LEPOIDEVIN, SANTY MERRITT [id number] [facility] 2024-12-04 14:00:00 2024-12-04 14:00:00 Outpatient R ADUM, KIMBERLYN ADUM, KIMBERLYN [facility] [id number] [facility] 2024-12-03 13:00:00 2024-12-03 13:00:00 Outpatient LOREN HERNANDEZ [id number] [facility] 2024-11-28 10:10:00 2024-11-28 10:10:00 Outpatient DEBBIE RUBIN [id number] [facility] 2024-11-27 10:30:00 2024-11-27 10:30:00 Outpatient R ADUM, KIMBERLYN ADUM, KIMBERLYN [facility] [id number] [facility] 2024-11-26 16:00:00 2024-11-26 16:00:00 Outpatient LOREN HERNANDEZ [id number] [facility] 2024-11-26 00:00:00 2024-11-26 00:00:00 Outpatient DEBBIE RUBIN ANAT MERRITT [id number] An[facility] 2024-11-22 15:30:00 2024-11-22 15:30:00 Outpatient DAVID LOREN ANAT MERRITT [id number] An[facility] 2024-11-07 11:00:00 2024-11-07 11:00:00 Outpatient DAVID LOREN MERRITT [id number] [facility] 2024-11-02 00:00:00 2024-11-02 00:00:00 Outpatient DAVID LOREN MERRITT [id number] [facility] 2024-11-01 10:30:00 2024-11-01 10:30:00 Outpatient JORDYN MADHAVI MERRITT [id number] [facility] 2024-10-30 11:00:00 2024-10-30 11:00:00 Outpatient DAVID LOREN ANAT MERRITT [id number] [facility] 2024-10-29 00:00:00 2024-10-29 00:00:00 Outpatient DAVID LOREN MERRITT [id number] [facility] 2024-10-25 11:06:00 2024-10-25 13:04:00 Emergency X ALEJANDRO PFEIFFER [facility] [id number] [facility] 2024-10-25 11:06:00 2024-10-25 13:04:00 Emergency Alejandro Pfeiffer [facility] [id number] [facility] 2024-10-25 11:00:00 2024-10-25 11:00:00 [facility] [id number] [facility] 2024-10-19 11:30:00 2024-10-19 11:30:00 Outpatient LILY LEMOS [id number] [facility] 2024-10-18 00:00:00 2024-10-18 00:00:00 Outpatient DAVID LOREN MERRITT [id number] Anat [facility] 2024-10-15 00:00:00 2024-10-15 00:00:00 Outpatient DAVID LOREN MERRITT [id number] [facility] 2024-09-28 00:00:00 2024-09-28 00:00:00 Outpatient MD ANAT RECINOS [id number] [facility] 2024-09-07 00:00:00 2024-09-07 00:00:00 Outpatient LOREN HERNANDEZ [id number] [facility] 2024-08-30 13:00:00 2024-08-30 13:00:00 Outpatient LOREN HERNANDEZ [id number] [facility] 2024-08-30 00:00:00 2024-08-30 00:00:00 Outpatient TIFFANY DOUGLAS [id number] [facility] 2024-08-30 00:00:00 2024-08-30 00:00:00 Outpatient MD ANAT RECINOS [id number] [facility] [facility] 2024-08-15 00:00:00 2024-08-15 00:00:00 Outpatient MD ANAT RECINOS [id number] An[facility] 2024-08-15 00:00:00 2024-08-15 00:00:00 Outpatient LOREN HERNANDEZ [id number] [facility] 2024-08-09 10:30:00 2024-08-09 10:30:00 Outpatient LOREN HERNANDEZ [id number] [facility] 2024-07-18 12:30:00 2024-07-18 12:30:00 Outpatient ANAT MERRITT [id number] Anat [facility] 2024-07-10 10:30:00 2024-07-10 10:30:00 Outpatient LOREN HERNANDEZ [id number] [facility] 2024-07-09 19:20:00 2024-07-09 20:06:56 Outpatient R LEONOR MUELLER [facility] [id number] [facility] 2024-07-09 19:20:00 2024-07-09 20:06:56 Urgent Care Leonor Mueller Unknown, Attending [facility] 1.2.840.114 350.1.13.10 4.2.7.2.686 [id number] [facility] 2024-07-03 17:29:00 2024-07-03 21:41:00 Emergency X JARRETT NAVARRO SHINTA [facility] ERT [id number] [facility] 2024-07-03 17:29:00 2024-07-03 21:41:00 Emergency Jarrett Navarro [facility] 1.2.840.114 350.1.13.10 4.2.7.2.686 [id number] [facility] 2024-06-28 20:00:00 2024-06-28 20:20:00 Urgent Care Delvis Kaye Unknown, Attending [facility] 1.2.840.114 350.1.13.10 4.2.7.2.686 [id number] [facility] 2024-06-28 20:00:00 2024-06-28 20:00:00 Outpatient R DELVIS KAYE [facility] [id number] [facility] 2024-06-28 08:20:00 2024-06-28 08:20:00 Outpatient LAB90 ANAT MERRITT [id number] [facility]at [facility] 2024-06-27 10:00:00 2024-06-27 10:00:00 Outpatient LOREN HERNANDEZ [id number] [facility] 2024-06-25 20:24:00 2024-06-25 21:05:00 Emergency X ESTHER GARZA SANDRA [facility] ERT [id number] [facility] 2024-06-25 20:24:00 2024-06-25 21:05:00 Emergency Esther Garza [facility] 1.2.840.114 350.1.13.10 4.2.7.2.686 [id number] [facility] 2024-06-25 19:00:00 2024-06-25 19:00:00 Outpatient KRYSTA BARRETO [id number] [facility] 2024-06-25 11:00:00 2024-06-25 11:00:00 Outpatient KAIDEN NG [id number] [facility] 2024-06-25 00:00:00 2024-06-25 00:00:00 Outpatient MD ANAT RECINOS [id number] [facility] 2024-06-16 00:00:00 2024-06-16 00:00:00 [facility] [id number] [facility]24-06-12 07:45:00 2024-06-12 07:45:00 Outpatient BERONICA MOORE [id number] [facility] 2024-06-11 19:45:00 2024-06-11 19:45:00 Outpatient PASHA PEDROZA [id number] [facility] 2024-06-07 15:30:00 2024-06-07 15:30:00 Outpatient CHANTELL BOO [id number] [facility] 2024-06-06 14:20:00 2024-06-06 14:20:00 Outpatient ANAT MERRITT [id number] [facility] 2024-06-06 14:00:00 2024-06-06 14:00:00 Outpatient CHANTELL BOO [id number] [facility] 2024-06-05 00:00:00 2024-06-05 00:00:00 Outpatient MD ANAT RECINOS [id number] [facility] 2024-06-01 00:00:00 2024-06-01 00:00:00 Outpatient CHANTELL BOO [facility] [id number] [facility] 2024-05-30 19:00:00 2024-05-30 19:00:00 Outpatient GENET NI [facility] [id number] [facility] 2024-05-25 16:30:00 2024-05-25 16:30:00 Outpatient KENDRATesha LOREN ANAT MERRITT [id number] [facility] 2024-05-25 15:55:00 2024-05-25 15:55:00 Outpatient SIMON ANAT MERRITT [id number] [facility] 2024-05-23 00:00:00 2024-05-23 00:00:00 Outpatient ANAT MERRITT [id number] [facility] 2024-05-22 15:30:00 2024-05-22 15:30:00 Outpatient KENDRATesha LOREN ANAT MERRITT [id number] [facility] 2024-05-18 15:55:00 2024-05-18 15:55:00 Outpatient LABAzucena ANAT MERRITT [id number] [facility] 2024-05-18 15:05:00 2024-05-18 15:05:00 Outpatient TIFFANY DOUGLAS [id number] [facility] 2024-05-13 00:06:00 2024-05-13 02:18:00 Emergency X FRACISCO NAGY [facility] E[facility] [id number] [facility] 2024-05-13 00:06:00 2024-05-13 02:18:00 Emergency AderibiBrooklynn hamiltonbril [facility] 1.2.840.114 350.1.13.10 4.2.7.2.686 [id number] [facility] 2024-05-10 20:45:00 2024-05-10 20:45:00 Outpatient HARI NAJERA [id number] [facility] 2024-05-08 11:00:00 2024-05-08 11:00:00 Outpatient FRANCINE47 ANAT MERRITT [id number] [facility] 2024-05-07 13:00:00 2024-05-07 13:00:00 Outpatient LOREN HERNANDEZ [id number] [facility] 2024-05-05 20:35:00 2024-05-05 20:35:00 Outpatient JANET PERAZA [id number] [facility] 2024-05-01 10:30:00 2024-05-01 10:30:00 Outpatient LOREN HERNANDEZ [id number] [facility] 2024-04-13 14:30:00 2024-04-13 14:30:00 Outpatient JUNIOR BOONE [facility] [id number] [facility] 2023-11-30 21:48:00 2023-12-01 00:08:00 Emergency X Gildardo DUNNE [facility] E[facility] [id number] [facility] 2023-11-30 21:48:00 2023-12-01 00:08:00 Emergency Gildardo Dunne [facility] 1.2.840.114 350.1.13.10 4.2.7.2.686 [id number] [facility] 2023-10-26 13:00:00 2023-10-26 13:00:00 Outpatient JOSETTE AGUIRRE [facility] [id number] [facility] 2023-10-13 21:42:00 2023-10-13 23:48:00 Emergency X ELEN BENEDICT [facility] ERT [id number] [facility] 2023-10-13 21:42:00 2023-10-13 23:48:00 Emergency Elen Benedict [facility] 1.2.840.114 350.1.13.10 4.2.7.2.686 [id number] [facility] 2023-09-27 19:20:00 2023-09-27 20:33:42 Outpatient R HARSH HARO [facility] [id number] [facility] 2023-09-27 19:20:00 2023-09-27 20:33:42 Urgent Care Harsh Haro Unknown, Attending [facility] 1.84114 350.1.13.10 4.2.7.2.686 [id number] 370 [id number] [facility] 2023-09-27 00:00:00 2023-09-27 00:00:00 Orders Only Doctor Unassigned, [place] [facility] 1..114 350.1.13.10 4.2.7.2.686 [id number] [facility] 2023-09-03 21:06:00 2023-09-04 00:27:00 Emergency X ELEN BENEDICT [facility] ERT [id number] [facility] 2023-09-03 21:06:00 2023-09-04 00:27:00 Emergency Sherice Benedictala [facility] 1.84.114 350.1.13.10 4.2.7.2.686 [id number] [id number] [facility] 2023-08-29 10:21:00 2023-08-29 12:04:00 Emergency X NICOLE HUGHES [facility] E[facility] [id number] [facility] 2023-08-29 10:21:00 2023-08-29 12:04:00 Emergency Nicole Hughes [facility] 1.84.114 350.1.13.10 4.2.7.2.686 [id number] [facility] 2023-08-02 13:41:32 2023-08-02 13:41:32 Outpatient [facility] [id number] Leo Burgess 2023-05-25 10:30:00 2023-05-25 10:30:00 Outpatient R KORTNEY TREJO CHERYAL [facility] [id number] [facility] 2023-05-06 10:30:00 2023-05-06 10:30:00 Outpatient R JOSETTE CHEUNG [facility] [id number] [facility] 2023-03-12 00:00:00 2023-03-12 00:00:00 Patient Secure Kortney Hood [facility] 1.840.114 350.1.13.10 4.2.7.2.686 [id number] 134 [id number] [facility] 2023-02-13 20:40:00 2023-02-13 20:40:00 Urgent Care Sydnie Andrade Unknown, Attending [facility] 1.840.114 350.1.13.10 4.2.7.2.686 [id number] [facility] 2023-02-13 20:40:00 2023-02-13 20:26:50 Outpatient R SYDNIE ANDRADE [facility] [id number] [facility] 2022-12-22 00:00:00 2022-12-22 00:00:00 (TEL) STLMLC STLMLC [id number] [facility] 2022-12-07 08:00:00 2022-12-07 08:00:00 Outpatient R KORTNEY TREJO CHERYAL [facility] [id number] [facility] 2022-11-05 10:30:00 2022-11-05 11:06:14 Outpatient R JOSETTE CHEUNG [facility] [id number] [facility] 2022-11-05 10:30:00 2022-11-05 11:06:14 Office Visit Josette Cheung [facility] 1.840.114 350.1.13.10 4.2.7.2.686 [id number] [facility] 2022-11-05 00:00:00 2022-11-05 00:00:00 Orders Only Doctor Unassigned, [place] [facility] 1.2.840.114 350.1.13.10 4.2.7.2.686 [id number] [facility] 2022-11-04 00:00:00 2022-11-04 00:00:00 Patient Secure Shayy Pugh [facility] 1.2.840.114 350.1.13.10 4.2.7.2.686 [id number] 134 [id number] [facility] 2022-10-29 00:00:00 2022-10-29 00:00:00 Telephone [facility] 1.2840.114 350.1.13.10 4.2.7.2.686 [id number] 134 [id number] [facility] 2022-10-21 10:45:00 2022-10-21 10:52:00 Outpatient R KORTNEY TREJO CHERYAL [facility] [id number] [facility] 2022-10-21 10:45:00 2022-10-21 10:52:00 Office Visit Kortney Trejo [facility] 1.2.840.114 350.1.13.10 4.2.7.2.686 [id number] 134 [id number] [facility] 2022-10-15 10:00:00 2022-10-15 10:00:00 Outpatient R JOSETTE CHEUNG [facility] [id number] [facility] 2022-10-13 09:30:00 2022-10-13 09:34:04 Outpatient R KORTNEY TREJO CHERYAL [facility] [id number] [facility] 2022-10-13 09:30:00 2022-10-13 09:34:04 Office Visit Kortney Trejo [facility] 1.2.840.114 350.1.13.10 4.2.7.2.686 [id number] 134 [id number] [facility] 2022-10-06 14:45:00 2022-10-06 14:45:00 Outpatient R KORTNEY TREJO CHERYAL [facility] [id number] [facility] 2022-09-27 03:57:00 2022-09-28 15:45:00 Inpatient X JOSETTE CHEUNG [facility] [id number] [facility] 2022-09-27 03:57:00 2022-09-28 15:45:00 Hospital Encounter Josette Cheung [facility] 1.2.840.114 350.1.13.10 4.2.7.2.686 [id number] [id number] [facility] 2022-09-27 11:12:00 2022-09-27 14:21:00 [facility] 1.2.840.114 350.1.13.10 4.2.7.2.686 [id number] [id number] [facility] 2022-09-24 13:15:00 2022-09-24 13:30:00 Batch Analyst Visit Pob, Adc Lab Main Josette Cheung [facility] PROFESSIO [facility] BU[facility] 1.2.840.114 350.1.13.10 4.2.7.2.686 [id number] [facility] 2022-09-24 09:15:00 2022-09-24 09:51:57 Outpatient R KORTNEY RTEJO CHERYAL [facility] [id number] [facility] 2022-09-24 09:15:00 2022-09-24 09:51:57 [facility] 1.2.840.114 350.1.13.10 4.2.7.2.686 [id number] [facility] 2022-09-20 14:47:00 2022-09-20 16:05:00 Outpatient X JOSETTE CHEUNG [facility] [id number] [facility] 2022-09-20 14:47:00 2022-09-20 16:05:00 Emergency Josette Cheung [facility] 1.2.840.114 350.1.13.10 4.2.7.2.686 [id number] 083 [id number] [facility] 2022-09-20 00:00:00 2022-09-20 00:00:00 [facility] 1.2.840.114 350.1.13.10 4.2.7.2.686 [id number] [facility] 2022-09-17 10:30:00 2022-09-17 10:37:48 Outpatient R JOSETTE CHEUNG [facility] [id number] [facility] 2022-09-17 10:30:00 2022-09-17 10:37:48 Routine Visit Josette Cheung [facility] [place] 1.2.840.114 350.1.13.10 4.2.7.2.686 [id number] 134 [id number] [facility] 2022-09-16 09:42:00 2022-09-16 11:30:00 Outpatient X JOSETTE CHEUNG [facility] [id number] [facility] 2022-09-16 09:42:00 2022-09-16 11:30:00 Emergency Josette Cheung [facility] 1.2.840.114 350.1.13.10 4.2.7.2.686 [id number] [facility] 2022-09-10 08:14:00 2022-09-10 10:42:00 Outpatient X JOSETTE CHEUNG [facility] [id number] [facility] 2022-09-10 08:14:00 2022-09-10 10:42:00 Emergency Vibha, Josette Cheney [facility] 1.2.840.114 350.1.13.10 4.2.7.2.686 [id number] [facility] 2022-09-10 10:00:00 2022-09-10 10:00:00 Outpatient [facility] [id number] [facility] 2022-09-09 10:00:00 2022-09-09 10:19:15 Outpatient R [facility]NEY [facility]RE[facility] [id number] [facility] 2022-09-09 10:00:00 2022-09-09 10:19:15 [facility] 1.2.840.114 350.1.13.10 4.2.7.2.686 [id number] 134 [id number] [facility] 2022-09-09 00:00:00 2022-09-09 00:00:00 [facility] 1.2.840.114 350.1.13.10 4.2.7.2.686 [id number] 134 [id number] [facility] 2022-09-08 00:00:00 2022-09-08 00:00:00 Nurse Triage Joanne Smith [facility] 1.2.840.114 350.1.13.10 4.2.7.2.686 [id number] [facility] 2022-09-08 00:00:00 2022-09-08 00:00:00 Patient Secure MsKortney Gonzalez [facility] 1..840.114 350.1.13.10 4.2.7.2.686 [id number] 134 [id number] [facility] 2022-09-07 19:07:00 2022-09-07 21:15:00 Outpatient X ADUM KIMBERLYN [facility] [id number] [facility] 2022-09-07 19:07:00 2022-09-07 21:15:00 Emergency Adum Kimberlyn Tesha [facility] 1..840.114 350.1.13.10 4.2.7.2.686 [id number] [id number] [facility] 2022-09-06 08:15:00 2022-09-06 08:29:53 Batch Analyst Visit Ultrasound, Meche Greenfield [facility] 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 [facility] 1..840.114 350.1.13.10 4.2.7.2.686 [id number] [facility] 2022-09-06 08:15:00 2022-09-06 08:15:00 Outpatient MECHE NAVA [facility] [id number] [facility] 2022-09-06 00:00:00 2022-09-06 00:00:00 Telephone Migdalia Alberto [facility] 1..840.114 350.1.13.10 4.2.7.2.686 [id number] 134 [id number] [facility] 2022-09-04 20:58:00 2022-09-04 22:00:00 Outpatient X LIBRA Alfredo, ALESSANDRO RUIZ [facility] [id number] [facility] 2022-09-04 20:58:00 2022-09-04 22:00:00 Emergency Jarvis Mcqueen Marisol [facility] 1.2.840.114 350.1.13.10 4.2.7.2.686 [id number] 083 [id number] [facility] 2022-09-04 00:00:00 2022-09-04 00:00:00 Nurse Triage Hilaria Dena Lebron [facility] 1.2.840.114 350.1.13.10 4.2.7.2.686 [id number] [facility] 2022-09-02 04:41:00 2022-09-02 07:04:00 Outpatient P JOSETTE CHEUNG [facility] [id number] [facility] 2022-09-02 04:41:00 2022-09-02 07:04:00 Hospital Encounter Josette Cheung [facility] 1.2.840.114 350.1.13.10 4.2.7.2.686 [id number] [facility] 2022-09-01 15:45:00 2022-09-01 16:36:53 Outpatient R [facility]RE[facility] [id number] [facility] 2022-09-01 15:45:00 2022-09-01 16:36:53 Routine Visit [facility] 1.2.840.114 350.1.13.10 4.2.7.2.686 [id number] 134 [id number] [facility] 2022-08-31 00:00:00 2022-08-31 00:00:00 [facility] 1.2.840.114 350.1.13.10 4.2.7.2.686 [id number] 134 [id number] [facility] 2022-08-27 10:00:00 2022-08-27 11:13:25 Outpatient R JOSETTE CHEUNG [facility] [id number] [facility] 2022-08-27 10:00:00 2022-08-27 11:13:25 Routine Visit Josette Cheung [facility] 1..114 350.1.13.10 4.2.7.2.686 [id number] 134 [id number] [facility] 2022-08-23 13:45:00 2022-08-23 13:45:00 Outpatient R JOSETTE CHEUNG [facility] [id number] [facility] 2022-08-22 17:21:00 2022-08-22 20:03:00 Outpatient X ADSHELLEY VIBRA [facility] [id number] [facility] 2022-08-22 17:21:00 2022-08-22 20:03:00 Emergency Adum Kimberlyn Tesha [facility] 1..114 350.1.13.10 4.2.7.2.686 [id number] [id number] [facility] 2022-08-22 00:00:00 2022-08-22 00:00:00 Orders Only Doctor Unassigned, [place] [facility] 1..114 350.1.13.10 4.2.7.2.686 [id number] [facility] 2022-08-13 19:05:00 2022-08-13 20:17:00 Outpatient X ADUM KIMBERLYN [facility] [id number] [facility] 2022-08-13 19:05:00 2022-08-13 20:17:00 [facility]..114 350.1.13.10 4.2.7.2.686 [id number] [id number] [facility] 2022-08-13 10:00:00 2022-08-13 10:00:00 Routine Visit Kortney Trejo [facility] 1.0.114 350.1.13.10 4.2.7.2.686 [id number] 134 [id number] [facility] 2022-08-13 10:00:00 2022-08-13 09:48:20 Outpatient R ANTWANKORTNEY DRISCOLLXIOMARAKORTNEY DRISCOLL [facility] [id number] [facility] 2022-08-11 12:30:00 2022-08-11 12:30:00 Outpatient R [facility] [id number] [facility] 2022-08-09 11:00:00 2022-08-09 11:17:45 Outpatient R ANTWANKORTNEY DRISCOLL [facility] [id number] [facility] 2022-08-09 11:00:00 2022-08-09 11:17:45 Routine Visit [facility] 1.840.114 350.1.13.10 4.2.7.2.686 [id number] 134 [id number] [facility] 2022-08-08 15:26:00 2022-08-08 16:35:00 Outpatient JOSETTE KIDD [facility] [id number] [facility] 2022-08-08 15:26:00 2022-08-08 16:35:00 Emergency Elen Benedict Vien [facility] 1.840.114 350.1.13.10 4.2.7.2.686 [id number] [id number] [facility] 2022-08-02 08:30:00 2022-08-02 09:00:00 [facility] 1.840.114 350.1.13.10 4.2.7.2.686 [id number] [facility] 2022-08-02 08:30:00 2022-08-02 08:30:00 Out[facility]REJO [facility] [id number] [facility] 2022-07-31 07:18:00 2022-07-31 09:27:00 Emergency X JARVIS MCQUEEN [facility] [id number] [facility] 2022-07-31 07:18:00 2022-07-31 09:27:00 Emergency Jarvis Mcqueen [facility] 1..840.114 350.1.13.10 4.2.7.2.686 [id number] [facility] 2022-07-30 13:30:00 2022-07-30 13:44:47 Outpatient [facility]REJO [facility] [id number] [facility] 2022-07-30 13:30:00 2022-07-30 13:44:47 Routine Visit Maya Kortney [facility] 1..840.114 350.1.13.10 4.2.7.2.686 [id number] 134 [id number] [facility] 2022-07-29 21:45:00 2022-07-29 23:36:00 Outpatient X GIRISHKIMBERLYN [facility] [id number] [facility] 2022-07-29 21:45:00 2022-07-29 23:36:00 Emergency MalindasariMoriah S AdKimberlyn meraz L [facility] 1..840.114 350.1.13.10 4.2.7.2.686 [id number] [facility] 2022-07-26 15:30:00 2022-07-26 15:30:00 Outpatient [facility]REJO [facility] [id number] [facility] 2022-07-26 00:00:00 2022-07-26 00:00:00 Telephone Cheung, Josette [facility] 1.2.840.114 350.1.13.10 4.2.7.2.686 [id number] [facility] 2022-07-24 18:27:00 2022-07-24 20:15:00 Outpatient X DEB CHEUNGFORMERLY [facility] [id number] [facility] 2022-07-24 18:27:00 2022-07-24 20:15:00 Emergency Josette Cheung [facility] 1.2.840.114 350.1.13.10 4.2.7.2.686 [id number] [facility] 2022-07-23 13:00:00 2022-07-23 13:31:03 Outpatient R KORTNEY TREJO [facility] [id number] [facility] 2022-07-23 13:00:00 2022-07-23 13:31:03 Routine Visit Kortney Trejo [facility] 1.2.840.114 350.1.13.10 4.2.7.2.686 [id number] [facility] 2022-07-23 00:00:00 2022-07-23 00:00:00 Telephone Josette Cheung [facility] 1.2.840.114 350.1.13.10 4.2.7.2.686 [id number] [facility] 2022-07-22 00:00:00 2022-07-22 00:00:00 Telephone Josette Cheung [facility] 1.2.840.114 350.1.13.10 4.2.7.2.686 [id number] [facility] 2022-07-21 08:13:00 2022-07-21 11:00:00 Outpatient P [facility]ANDEBEN [facility] [id number] [facility] 2022-07-21 08:13:00 2022-07-21 11:00:00 Hospital Encounter Josette Cheung [facility] 1..840.114 350.1.13.10 4.2.7.2.686 [id number] [facility] 2022-07-16 11:30:00 2022-07-16 12:01:54 Outpatient R JOSETTE CHEUNG [facility] [id number] [facility] 2022-07-16 11:30:00 2022-07-16 12:01:54 Routine Visit Josette Cheung [facility] 1..840.114 350.1.13.10 4.2.7.2.686 [id number] [facility] 2022-07-16 00:00:00 2022-07-16 00:00:00 Orders Only Doctor Unassigned, [place] [facility] 1..840.114 350.1.13.10 4.2.7.2.686 [id number] [facility] 2022-07-14 11:30:00 2022-07-14 12:03:26 Outpatient R KORTNEY TREJO [facility]ERY[facility] [id number] [facility] 2022-07-14 11:30:00 2022-07-14 12:03:26 Office Visit Kortney Trejo [facility] 1..840.114 350.1.13.10 4.2.7.2.686 [id number] 134 [id number] [facility] 2022-07-10 19:56:00 2022-07-11 10:46:00 Outpatient X BLADIMIR SAM [facility] [id number] [facility] 2022-07-10 19:56:00 2022-07-11 10:46:00 Emergency Sam Bradley [facility] 1.2.840.114 350.1.13.10 4.2.7.2.686 [id number] [id number] [facility] 2022-07-10 00:00:00 2022-07-10 00:00:00 Orders Only Doctor Unassigned, [place] [facility] 1.2840.114 350.1.13.10 4.2.7.2.686 [id number] [facility] 2022-07-08 08:45:00 2022-07-08 09:00:00 Batch Analyst Visit Pob, [facility] Main Kortney Trejo [facility] 1.84.114 350.1.13.10 4.2.7.2.686 [id number] [facility] 2022-07-08 08:45:00 2022-07-08 08:45:00 Outpatient R KORTNEY TREJO [facility] [id number] [facility] 2022-06-30 10:30:00 2022-06-30 10:45:05 Outpatient R KORTNEY TREJO [facility]ERY[facility] [id number] [facility] 2022-06-30 10:30:00 2022-06-30 10:45:05 Routine Visit Kortney Trejo [facility] 1.84.114 350.1.13.10 4.2.7.2.686 [id number] 134 [id number] [facility] 2022-06-30 10:30:00 2022-06-30 10:30:00 Outpatient R KORTNEY TREJO CHERYAL [facility] [id number] [facility] 2022-06-30 10:30:00 2022-06-30 10:30:00 Outpatient R KORTNEY TREJO CHERYAL [facility] [id number] [facility] 2022-06-28 14:15:00 2022-06-28 14:30:00 Batch Analyst Visit Pob, Adc Lab Main Kortney Trejo [facility] 1.840.114 350.1.13.10 4.2.7.2.686 [id number] [facility] 2022-06-28 14:15:00 2022-06-28 14:15:00 Outpatient R KORT[address] TREJO [facility] [id number] [facility] 2022-06-28 00:00:00 2022-06-28 00:00:00 Orders Only Doctor Unassigned, [place] [facility] 1.84.114 350.1.13.10 4.2.7.2.686 [id number] [id number] [facility] 2022-06-25 11:30:00 2022-06-25 11:30:00 Office Visit AntwanKortney driscoll [facility] 1.840.114 350.1.13.10 4.2.7.2.686 [id number] 134 [id number] [facility] 2022-06-25 11:30:00 2022-06-25 11:26:42 Outpatient R HAVENKORTNEY BECERRA [facility] [id number] [facility] 2022-06-24 09:30:00 2022-06-24 09:30:00 Outpatient R JOSETTE CHEUNG [facility] [id number] [facility] 2022-06-24 00:00:00 2022-06-24 00:00:00 [facility] 1.84.114 350.1.13.10 4.2.7.2.686 [id number] 134 [id number] [facility] 2022-06-22 00:00:00 2022-06-22 00:00:00 Telephone Josette Cheung [facility] 1.2.840.114 350.1.13.10 4.2.7.2.686 [id number] 134 [id number] [facility] 2022-06-18 10:30:00 2022-06-18 11:52:49 Batch Analyst Visit 2, [facility] Migdalia Vazquez [facility] 1.2.840.114 350.1.13.10 4.2.7.2.686 [id number] [facility] 2022-06-18 10:30:00 2022-06-18 10:30:00 Outpatient P MIGDALIA VAZQUEZ [facility] [id number] [facility] 2022 14:00:00 2022 15:15:53 Outpatient R JONATAN [facility] [id number] [facility] 2022 14:00:00 2022 15:15:53 Routine Visit Josette Cheung [facility] 1.2.840.114 350.1.13.10 4.2.7.2.686 [id number] 134 [id number] [facility] 2022 00:00:00 2022 00:00:00 Orders Only Doctor Unassigned, [place] [facility] 1.2.840.114 350.1.13.10 4.2.7.2.686 [id number] [id number] [facility] 2022-06-02 13:30:00 2022-06-02 14:07:33 Outpatient R KORTNEY TRJEO CHERYAL [facility] [id number] [facility] 2022-06-02 13:30:00 2022-06-02 14:07:33 Routine Visit Kortney Trejo [facility] 1.2.840.114 350.1.13.10 4.2.7.2.686 [id number] 134 [id number] [facility] 2022-05-21 08:00:00 2022-05-21 08:59:22 Batch Analyst Visit 2, [facility] Meche Arroyo [facility] 1.0.114 350.1.13.10 4.2.7.2.686 [id number] [facility] 2022-05-21 08:00:00 2022-05-21 08:00:00 Outpatient P MECHE ARROYO [facility] [id number] [facility] 2022-05-18 10:00:00 2022-05-18 10:00:00 Outpatient R LEONOR MUELLER [facility] [id number] [facility] 2022-05-17 14:00:00 2022-05-17 14:00:00 Outpatient P [facility] [id number] [facility] 2022-05-17 14:00:00 2022-05-17 14:00:00 Outpatient P [facility] [id number] [facility] 2022-05-06 00:00:00 2022-05-06 00:00:00 Telephone Kortney Trejo [facility] 1.840.114 350.1.13.10 4.2.7.2.686 [id number] 134 [id number] [facility] 2022-05-05 13:30:00 2022-05-05 14:17:16 Outpatient R KORTNEY TREJO CHERYAL [facility] [id number] [facility] 2022-05-05 13:30:00 2022-05-05 14:17:16 Routine Visit Kortney Trejo [facility] 1.840.114 350.1.13.10 4.2.7.2.686 [id number] 134 [id number] [facility] 2022-05-03 00:00:00 2022-05-03 00:00:00 Case Management Maya [facility] 1.2.840.114 350.1.13.10 4.2.7.2.686 [id number] 134 [id number] [facility] 2022-04-29 00:00:00 2022-04-29 00:00:00 [facility] 1.2.840.114 350.1.13.10 4.2.7.2.686 [id number] 134 [id number] [facility] 2022-04-28 00:00:00 2022-04-28 00:00:00 [facility] 1.2.840.114 350.1.13.10 4.2.7.2.686 [id number] 134 [id number] [facility] 2022-04-27 00:00:00 2022-04-27 00:00:00 Patient Secure Msg [facility] 1.2.840.114 350.1.13.10 4.2.7.2.686 [id number] 134 [id number] [facility] 2022-04-23 00:00:00 2022-04-23 00:00:00 [facility] 1.2.840.114 350.1.13.10 4.2.7.2.686 [id number] 134 [id number] [facility] 2022-04-14 09:15:00 2022-04-14 09:19:38 Outpatient R KORTNEY TREJO CHERYAL [facility] [id number] [facility] 2022-04-14 09:15:00 2022-04-14 09:19:38 Routine Visit Kortney Trejo [facility] 1.2.840.114 350.1.13.10 4.2.7.2.686 [id number] 134 [id number] [facility] 2022-04-11 05:57:00 2022-04-11 06:10:00 Emergency X KAYLA ESTHER [facility] [id number] [facility] 2022-04-11 05:57:00 2022-04-11 06:10:00 Emergency Esther Garza Cristobal [facility] 1.2.840.114 350.1.13.10 4.2.7.2.686 [id number] 084 [id number] [facility] 2022-04-11 00:00:00 2022-04-11 00:00:00 Nurse Triage Truong Leo [facility] 1.2.840.114 350.1.13.10 4.2.7.2.686 [id number] 019 [id number] [facility] 2022-04-09 00:00:00 2022-04-09 00:00:00 Orders Only Doctor Unassigned, [place] [facility] 1.2.840.114 350.1.13.10 4.2.7.2.686 [id number] [id number] [facility] 2022-04-07 09:00:00 2022-04-07 09:31:10 Outpatient R KORTNEY TREJO CHERYAL [facility] [id number] [facility] 2022-04-07 09:00:00 2022-04-07 09:31:10 Routine Visit Kortney Trejo [facility] 1.2.840.114 350.1.13.10 4.2.7.2.686 [id number] 134 [id number] [facility] 2022-04-07 09:00:00 2022-04-07 09:00:00 [id number] 2022-04-05 08:26:00 2022-04-05 08:44:00 Emergency X KAYLA ESTHER [facility] [id number] [facility] 2022-04-05 08:26:00 2022-04-05 08:44:00 Emergency Esther Garza [facility] 1.0.114 350.1.13.10 4.2.7.2.686 [id number] 084 [id number] [facility] 2022-04-05 00:00:00 2022-04-05 00:00:00 Letter (Out) eCcy Wesley [facility] 1..114 350.1.13.10 4.2.7.2.686 [id number] 019 [id number] [facility] 2022-04-05 00:00:00 2022-04-05 00:00:00 Orders Only Doctor Unassigned, [place] [facility] 1..114 350.1.13.10 4.2.7.2.686 [id number] [id number] [facility] 2022-04-04 16:20:00 2022-04-04 16:46:38 Outpatient R LEONOR MUELLER [facility] [id number] [facility] 2022-04-04 16:20:00 2022-04-04 16:46:38 Urgent Care Leonor Mueller [facility] 1..114 350.1.13.10 4.2.7.2.686 [id number] 370 [id number] [facility] 2022-04-01 00:00:00 2022-04-01 00:00:00 Telephone Josette Cheung [facility] 1.0.114 350.1.13.10 4.2.7.2.686 [id number] 134 [id number] [facility] 2022-04-01 00:00:00 2022-04-01 00:00:00 Refill MayaKortney [facility] 1..114 350.1.13.10 4.2.7.2.686 [id number] 134 [id number] [facility] 2022-03-31 09:30:00 2022-03-31 09:45:00 Batch Analyst Visit Lab, Marcos [facility] 1.84.114 350.1.13.10 4.2.7.2.686 [id number] 353 [id number] [facility] 2022-03-31 09:30:00 2022-03-31 09:30:00 Outpatient R [facility] [id number] [facility] 2022-03-31 09:30:00 2022-03-31 09:30:00 Outpatient R ANTWANKORTNEY DRISCOLL [facility] [id number] [facility] 2022-03-31 00:00:00 2022-03-31 00:00:00 Orders Only Doctor Unassigned, [place] [facility] 1.840.114 350.1.13.10 4.2.7.2.686 [id number] [facility] 2022-03-24 10:00:00 2022-03-24 10:13:45 Outpatient R ANTWANDALE DRISCOLLPATRICK [facility] [id number] [facility] 2022-03-24 10:00:00 2022-03-24 10:13:45 Office Visit Maya Kortney [facility] 1.840.114 350.1.13.10 4.2.7.2.686 [id number] 134 [id number] [facility] 2022-03-24 00:00:00 2022-03-24 00:00:00 Letter (Out) Kortney Trejo [facility] 1.2.840.114 350.1.13.10 4.2.7.2.686 [id number] 134 [id number] [facility] 2022-03-20 20:41:00 2022-03-21 01:22:00 Emergency X DAMIR ELPIDIO [facility] [id number] [facility] 2022-03-20 20:41:00 2022-03-21 01:22:00 Emergency Elpidio Martinez S [facility] 1..840.114 350.1.13.10 4.2.7.2.686 [id number] [id number] [facility] 2022-03-17 00:00:00 2022-03-17 00:00:00 Out[facility] [id number] [facility] 2022-03-12 00:00:00 2022-03-12 00:00:00 Telephone Josette Cheung [facility] 1.2.840.114 350.1.13.10 4.2.7.2.686 [id number] 134 [id number] [facility] 2022-03-10 13:00:00 2022-03-10 13:44:04 Outpatient [facility] [id number] [facility] 2022-03-10 13:00:00 2022-03-10 13:44:04 Routine Visit Kortney Trejo [facility] 1.2.840.114 350.1.13.10 4.2.7.2.686 [id number] 134 [id number] [facility] 2022-03-10 13:00:00 2022-03-10 13:00:00 Outpatient KORTNEY HILL CHERYAL [facility] [id number] [facility] 2022-03-02 00:00:00 2022-03-02 00:00:00 Patient Secure Msg Kortney Trejo [facility] 1.2.840.114 350.1.13.10 4.2.7.2.686 [id number] 134 [id number] [facility] 2022-03-01 15:00:00 2022-03-01 15:33:04 Outpatient R KORTNEY TREJO CHERYAL [facility] [id number] [facility] 2022-03-01 15:00:00 2022-03-01 15:33:04 Office Visit Kortney Trejo [facility] 1.2.840.114 350.1.13.10 4.2.7.2.686 [id number] 134 [id number] [facility] 2022-03-01 00:00:00 2022-03-01 00:00:00 Letter (Out) Kortney Trejo [facility] 1.2.840.114 350.1.13.10 4.2.7.2.686 [id number] 134 [id number] [facility] 2022-02-24 11:06:00 2022-02-24 12:11:00 Emergency X KAI LARKIN [facility] [id number] [facility] 2022-02-24 11:06:00 2022-02-24 12:11:00 Emergency Kai Larkin [facility] 1.2.840.114 350.1.13.10 4.2.7.2.686 [id number] [id number] [facility] 2022-02-24 11:06:00 2022-02-24 12:11:00 Emergency X CLAUDIA KAI [facility] [id number] [facility] 2022-02-21 13:39:00 2022-02-21 14:32:00 Emergency X ELPIDIO MARTINEZ [facility] [id number] [facility] 2022-02-21 13:39:00 2022-02-21 14:32:00 Emergency Elpidio Martinez [facility] 1.2840.114 350.1.13.10 4.2.7.2.686 [id number] [id number] [facility] 2022-02-19 00:00:00 2022-02-19 00:00:00 Telephone Josette Cheung [facility] 1..114 350.1.13.10 4.2.7.2.686 [id number] 134 [id number] [facility] 2022-02-16 09:00:00 2022-02-16 09:00:00 Outpatient R KORTNEY [facility]REJO [facility] [id number] [facility] 2022-02-15 09:30:00 2022-02-15 10:32:37 Outpatient [address] T[address]JO [facility] [id number] [facility] 2022-02-15 09:30:00 2022-02-15 10:32:37 [facility] 1..114 350.1.13.10 4.2.7.2.686 [id number] 134 [id number] [facility] 2022-02-14 13:00:00 2022-02-14 13:20:00 Urgent Care Poppy Ceron [facility] 1.84.114 350.1.13.10 4.2.7.2.686 [id number] 370 [id number] [facility] 2022-02-14 13:00:00 2022-02-14 13:00:00 Outpatient POPPY STODDARD [facility] [id number] [facility] 2022-02-14 00:00:00 2022-02-14 00:00:00 Letter (Out) CeronPoppy villafana [facility] 1.284.114 350.1.13.10 4.2.7.2.686 [id number] [facility] 2022-02-12 00:00:00 2022-02-12 00:00:00 Telephone Maya [facility] 1..114 350.1.13.10 4.2.7.2.686 [id number] 134 [id number] [facility] 2022-02-11 13:00:00 2022-02-11 13:15:00 Batch Analyst Visit Lab, Marcos - Juan Pablo Trejo [facility] 1.84.114 350.1.13.10 4.2.7.2.686 [id number] 353 [id number] [facility] 2022-02-11 13:00:00 2022-02-11 13:00:00 Outpatient R KORTNEY TREJO [facility] [id number] [facility] 2022-02-10 13:00:00 2022-02-10 13:25:06 Out[address] [facility] [id number] [facility] 2022-02-10 13:00:00 2022-02-10 13:25:06 Routine Visit Maya [facility] 1.2.114 350.1.13.10 4.2.7.2.686 [id number] 134 [id number] [facility] 2022-02-10 00:00:00 2022-02-10 00:00:00 Patient Secure John Gomez [facility] 1.2.114 350.1.13.10 4.2.7.2.686 [id number] 134 [id number] [facility] 2022-02-09 13:00:00 2022-02-09 13:15:00 Batch Analyst Visit Lab, Marcos RobledojereDalepatrick [facility] 1.2840.114 350.1.13.10 4.2.7.2.686 [id number] 353 [id number] [facility] 2022-02-09 13:00:00 2022-02-09 13:00:00 Outpatient R HAVENBASSAMALEXKORTNEY DRISCOLL [facility] [id number] [facility] 2022-02-09 09:00:00 2022-02-09 09:36:35 Routine Visit Kortney Trejo [facility] 1.0.114 350.1.13.10 4.2.7.2.686 [id number] 134 [id number] [facility] 2022-02-05 13:19:16 2022-02-05 23:59:00 Outpatient R HAVENJERE KORTNEY CORTEZ [facility] [id number] [facility] 2022-02-05 13:19:16 2022-02-05 23:59:00 Hospital Encounter Kortney Trejo [facility] 1.20.114 350.1.13.10 4.2.7.2.686 [id number] [facility] 2022-02-05 00:00:00 2022-02-05 00:00:00 Orders Only Doctor Unassigned, [place] [facility] 1.2840.114 350.1.13.10 4.2.7.2.686 [id number] [id number] [facility] 2022-02-03 14:22:00 2022-02-03 17:02:00 Emergency X NIXON PERDUE [facility] [id number] [facility] 2022-02-03 14:22:00 2022-02-03 17:02:00 Emergency Nixon Perdue [facility] 1.2.840.114 350.1.13.10 4.2.7.2.686 [id number] [id number] [facility] 2022-02-03 08:00:00 2022-02-03 08:15:00 Batch Analyst Visit Pob, Adc Lab Main Kortney Trejo [facility] PROFESSIO [facility] 1.2.840.114 350.1.13.10 4.2.7.2.686 [id number] 353 [id number] [facility] 2022-02-03 08:00:00 2022-02-03 08:00:00 Outpatient R KORTNEY TREJO [facility] [id number] [facility] 2022-02-03 00:00:00 2022-02-03 00:00:00 Patient Secure John Gomez [facility] 1.2.840.114 350.1.13.10 4.2.7.2.686 [id number] 134 [id number] [facility] 2022-02-02 09:00:00 2022-02-02 09:20:46 Outpatient R K[address]NEY TREJO [facility] [id number] [facility] 2022-02-02 09:00:00 2022-02-02 09:20:46 Routine Visit Kortney Trejo [facility] 1.2840.114 350.1.13.10 4.2.7.2.686 [id number] 134 [id number] [facility] 2022-02-02 09:00:00 2022-02-02 09:20:46 Out[address] T[address] [facility] [id number] [facility] 2022-02-02 00:00:00 2022-02-02 00:00:00 Patient Secure [facility] 1.2.840.114 350.1.13.10 4.2.7.2.686 [id number] 134 [id number] [facility] 2022-02-01 13:30:00 2022-02-01 17:02:00 Emergency X KAI LARKIN [facility] [id number] [facility] 2022-02-01 13:30:00 2022-02-01 17:02:00 Emergency Kai Larkin [facility] 1.2.840.114 350.1.13.10 4.2.7.2.686 [id number] 084 [id number] [facility] 2022-02-01 00:00:00 2022-02-01 00:00:00 Telephone Maya [facility] 1.2.840.114 350.1.13.10 4.2.7.2.686 [id number] 134 [id number] [facility] 2022-02-01 00:00:00 2022-02-01 00:00:00 Case Management Maya [facility] 1.2.840.114 350.1.13.10 4.2.7.2.686 [id number] 134 [id number] [facility] 2022-01-30 09:15:00 2022-01-30 09:30:00 Batch Analyst Visit Pob, Adc Lab Main Kortney Trejo [facility] PROFESSIO [facility] 1.2.840.114 350.1.13.10 4.2.7.2.686 [id number] [facility] 2022-01-30 09:15:00 2022-01-30 09:15:00 Outpatient R KORTNEY TREJO, [facility] [id number] [facility] 2022-01-29 00:00:00 2022-01-29 00:00:00 Patient Secure Msg Doctor Unassigned, [place] [facility] 1.840.114 350.1.13.10 4.2.7.2.686 [id number] [facility] 2022-01-27 09:00:00 2022-01-27 09:15:00 Batch Analyst Visit Lab, Marcos Trejo [facility]ILV[facility] 1.840.114 350.1.13.10 4.2.7.2.686 [id number] 353 [id number] [facility] 2022-01-27 09:00:00 2022-01-27 09:00:00 Outpatient R MAYADALEPATRICK [facility] [id number] [facility] 2022-01-27 00:00:00 2022-01-27 00:00:00 [facility] 1..114 350.1.13.10 4.2.7.2.686 [id number] 134 [id number] [facility] 2022-01-26 09:00:00 2022-01-26 09:42:07 Outpatient [address] T[address] [facility] [id number] [facility] 2022-01-26 09:00:00 2022-01-26 09:42:07 Initial Visit Maya [facility] 1..114 350.1.13.10 4.2.7.2.686 [id number] 134 [id number] [facility] 2022-01-26 00:00:00 2022-01-26 00:00:00 Patient Secure John Gomez [facility] 1.2.840.114 350.1.13.10 4.2.7.2.686 [id number] 134 [id number] [facility] 2022-01-26 00:00:00 2022-01-26 00:00:00 Telephone Kortney Trejo [facility] 1.2.840.114 350.1.13.10 4.2.7.2.686 [id number] 134 [id number] [facility] 2022-01-25 10:30:00 2022-01-25 10:45:00 Batch Analyst Visit Lab, Marcos Almeida Jacqueline [facility] 1.2840.114 350.1.13.10 4.2.7.2.686 [id number] 353 [id number] [facility] 2022-01-25 10:30:00 2022-01-25 10:30:00 Outpatient R [facility] [id number] [facility] 2022-01-25 10:00:00 2022-01-25 10:09:56 Urgent Care Jacqueline [facility] 1.2840.114 350.1.13.10 4.2.7.2.686 [id number] 370 [id number] [facility] 2022-01-25 00:00:00 2022-01-25 00:00:00 Patient Secure Msg Jacqueline [facility] 1.2840.114 350.1.13.10 4.2.7.2.686 [id number] 370 [id number] [facility] 2022-01-12 00:00:00 2022-01-12 00:00:00 OFFICE VISIT EST PT LEVEL 3 STLMLC STLMLC [id number] [facility] 2022-01-11 00:00:00 2022-01-11 00:00:00 (TEL) STLMLC STLMLC [id number] [facility] 2021-12-18 18:00:00 2021-12-18 18:00:00 Outpatient R JACQUELINEROSALINDAY [facility] [id number] [facility] 2021-12-14 00:00:00 2021-12-14 00:00:00 Patient Secure Msg Josette Cheung [facility] NAL BUILDING 1..840.114 350.1.13.10 4.2.7.2.686 [id number] [facility] 2021-12-11 00:00:00 2021-12-11 00:00:00 Patient Secure Josette Davis [facility] BUILDING 1..840.114 350.1.13.10 4.2.7.2.686 [id number] [facility] 2021-10-22 11:00:00 2021-10-22 11:00:00 Outpatient R EZRA DELEON [facility] [id number] [facility] 2021-10-22 00:00:00 2021-10-22 00:00:00 Refill Raymond [facility] 1..840.114 350.1.13.10 4.2.7.2.686 [id number] [facility] 2021-10-15 11:40:00 2021-10-15 13:06:17 Outpatient R RAYMOND [facility] [id number] [facility] 2021-10-15 11:40:00 2021-10-15 12:00:00 Urgent Care [facility] BU[facility] 1..840.114 350.1.13.10 4.2.7.2.686 [id number] 370 [id number] [facility] 2021-10-12 00:00:00 2021-10-12 00:00:00 OFFICE VISIT ESTAB PT LEVEL 1 STLMLC STLMLC [id number] [facility] 2021-10-12 00:00:00 2021-10-12 00:00:00 (TEL) STLMLC STLMLC [id number] [facility] 2021-09-10 00:00:00 2021-09-10 00:00:00 Refill Leonor Mueller [facility]?MELAN[facility]herif [facility] 1.2840.114 350.1.13.10 4.2.7.2.686 [id number] 370 [id number] [facility] 2021-07-31 00:00:00 2021-07-31 00:00:00 Patient Secure Msg Josette Cheung [facility] 1.2840.114 350.1.13.10 4.2.7.2.686 [id number] [facility] 2021-07-30 00:00:00 2021-07-30 00:00:00 Telephone Josette Cheung [facility] Building 1.2840.114 350.1.13.10 4.2.7.2.686 [id number] [facility] 2021-07-29 19:42:00 2021-07-29 21:40:00 Emergency Elen Benedict [facility] 1.2.840.114 350.1.13.10 4.2.7.2.686 [id number] [facility] 2021-07-19 00:00:00 2021-07-19 00:00:00 Refill Nydia Phillips [facility] Dante?Silvio [facility] 1.2840.114 350.1.13.10 4.2.7.2.686 [id number] [facility] 2021-07-14 17:18:01 2021-07-14 17:47:01 Urgent Care Nydia Phillips [facility]?Silvio ospina [facility] Building 1..114 350.1.13.10 4.2.7.2.686 [id number] [facility] 2021-07-14 17:40:00 2021-07-14 17:40:00 Outpatient R NYDIA PHILLIPS [facility] [id number] [facility] 2021-07-14 10:00:00 2021-07-14 10:00:00 Outpatient NYDIA BELLAMY [facility] [id number] [facility] 2021-07-10 00:00:00 2021-07-10 00:00:00 OFFICE VISIT EST PT LEVEL 3 STLMLC STLMLC [id number] [facility] 2021-07-03 15:00:00 2021-07-03 15:00:00 Outpatient R ELLE SAMUELS [facility] [id number] [facility] 2021-07-03 00:00:00 2021-07-03 00:00:00 Patient Secure Msg Elle Samuels [facility] 1.0.114 350.1.13.10 4.2.7.2.686 [id number] [facility] [facility] 2021-06-30 11:55:40 2021-06-30 12:25:40 Office Visit Elle Samuels [facility] 1..114 350.1.13.10 4.2.7.2.686 [id number] [facility] 2021-06-30 09:02:52 2021-06-30 09:22:31 Urgent Care Leonor Mueller [facility]?Silvio ospina Medical Office Building 1..114 350.1.13.10 4.2.7.2.686 [id number] [facility] 2021-06-30 09:00:00 2021-06-30 09:00:00 Outpatient LEONOR BLACK [facility] [id number] [facility] 2021-06-22 00:00:00 2021-06-22 00:00:00 Letter (Out) [facility] 1.2.840.114 350.1.13.10 4.2.7.2.686 [id number] 019 [id number] [facility] 2021-06-22 00:00:00 2021-06-22 00:00:00 Letter (Out) [facility] 1.2.840.114 350.1.13.10 4.2.7.2.686 [id number] [facility] 2021-06-22 00:00:00 2021-06-22 00:00:00 Patient Secure Msg Doctor Unassigned, [place] [facility] 1.2.840.114 350.1.13.10 4.2.7.2.686 [id number] 019 [id number] [facility] 2021-06-21 15:13:00 2021-06-21 16:17:00 Emergency Shanika Joaquin [facility] 1.2.840.114 350.1.13.10 4.2.7.2.686 [id number] 084 [id number] [facility] 2021-06-21 15:13:00 2021-06-21 16:17:00 Emergency Shanika Joaquin [facility] 1.2.840.114 350.1.13.10 4.2.7.2.686 [id number] 084 [id number] [facility] 2021-06-20 12:17:23 2021-06-20 13:00:14 Urgent Care Delvis Kaye, [facility]?Silvio pérez Medical Office Building 1.114 350.1.13.10 4.2.7.2.686 [id number] [facility] 2021-06-20 12:20:00 2021-06-20 12:20:00 Outpatient R RAYMONDSYDNIE [facility] [id number] [facility] 2021-06-20 00:00:00 2021-06-20 00:00:00 Orders Only Doctor Unassigned, [place] [facility] 1.114 350.1.13.10 4.2.7.2.686 [id number] [id number] [facility] 2021-06-20 00:00:00 2021-06-20 00:00:00 Orders Only Doctor Unassigned, [place] [facility] 1.114 350.1.13.10 4.2.7.2.686 [id number] [id number] [facility] 2021-06-13 17:45:00 2021-06-13 17:45:00 Outpatient R NYDIA PHILLIPS [facility] [id number] [facility] 2021-06-13 17:08:31 2021-06-13 17:23:31 Laboratory Only Only, Ang Db Test Erika Phillipstany [facility]?Silvio ospina Medical Office Building 1.114 350.1.13.10 4.2.7.2.686 [id number] [facility] 2021-04-14 08:30:00 2021-04-14 08:30:00 Outpatient R CHRISTIANO ANGELES [facility] [id number] [facility] 2021-04-13 00:00:00 2021-04-13 00:00:00 Jerod Clark [facility] One 1..114 350.1.13.10 4.2.7.2.686 [id number] [id number] [facility] 2021-04-12 12:00:26 2021-04-12 13:54:05 Urgent Care Provider, [facility] Dev[facility] Krysta Cristobal [facility] Office Building One 1..840.114 350.1.13.10 4.2.7.2.686 [id number] [facility] 2021-04-12 12:00:00 2021-04-12 12:00:00 Outpatient R KRYSTA MCKEON [facility] [id number] [facility] 2021-04-09 00:00:00 2021-04-09 00:00:00 OFFICE VISIT ESTAB PT LEVEL 4 STLMLC STLMLC [id number] [facility] 2021-04-01 00:00:00 2021-04-01 00:00:00 Patient Secure Msg Josette Cheung [facility] BUILDING 1..840.114 350.1.13.10 4.2.7.2.686 [id number] 134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
[2025-01-24 12:39] LABS: Absolute Basophils 0.1 K/uL (0-0.5); Absolute Eosinophils 0.2 K/uL (0-0.5); Absolute Lymphocytes (CBC) 1.8 K/uL (0.7-4.9); Absolute Monocytes 0.7 K/uL (0.1-1.3); Absolute Neutrophil 4.8 K/uL (1.8-8.0); Basophils % 0.9 % (0-1.3); Eosinophils % 2.3 % (0-4.4); Hematocrit 39.4 % (36.0-45.0); Hemoglobin 13.4 g/dL (12.0-15.0); Lymphocytes % 23.3 % (15.3-44.8); MCH 29.8 pg (27.0-35.0); MCV 87.7 fL (80-100); MPV 8.3 fL (7.6-11.3); Monocytes % 9.9 % (3.3-12.3); Neutrophils % 63.6 % (41.7-73.7); Nucleated Red Blood Cells % 0.1 % (0-0); Platelets 263 thou/uL (152-406); RBC Red Blood Cell Count 4.49 M/uL (3.86-4.86); Red Cell Distribution Width 13.7 % (12.1-15.2)
[2025-01-24 13:25] LABS: Specific Gravity 1.027 (1.005-1.030)
--- NOTE | 2025-01-24 13:26 | EDPHYS ---
Physician Documentation [facility] Name: Nicolasa Rose Age: 29 yrs Sex: Female : 1995 Arrival Date: 01/24/2025 Time: 10:37 Bed 18 Private MD: ED Physician Ceci Langford HPI: 01/24 12:58 This 29 yrs old Female presents to ER via Ambulatory with complaints of Vaginal sp3 Bleeding, Nausea. 12:58 29-year-old female presents with abnormal vaginal bleeding stating that it is not "with sp3 her cycle". OTC tests have been negative. She denies any other bleeding, headache, neck pain, chest pain, shortness breath, abdominal pain, back pain or extremity pain, syncope, near syncope, or any other signs or symptoms on ROS at this time.. 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 - Infectious Disease History:: Denies. - Social history:: Smoking status: Patient denies any tobacco usage or history of. ROS: 12:59 Constitutional: Negative for fever, chills, and weight loss, Eyes: Negative for injury, sp3 pain, redness, and discharge, ENT: Negative for injury, pain, and discharge, Neck: Negative for injury, pain, and swelling, Cardiovascular: Negative for chest pain, palpitations, and edema, Respiratory: Negative for shortness of breath, cough, wheezing, and pleuritic chest pain, Abdomen/GI: Negative for abdominal pain, nausea, vomiting, diarrhea, and constipation, Back: Negative for injury and pain, MS/Extremity: Negative for injury and deformity, Skin: Negative for injury, rash, and discoloration, Neuro: Negative for headache, weakness, numbness, tingling, and seizure, Psych: Negative for depression, anxiety, suicide ideation, homicidal ideation, and hallucinations, Allergy/Immunology: Negative for hives, rash, and allergies, Endocrine: Negative for neck swelling, polydipsia, polyuria, polyphagia, and marked weight changes, Hematologic/Lymphatic: Negative for swollen nodes, abnormal bleeding, and unusual bruising, 12:59 All other systems are negative, Exam: 12:59 Constitutional: This is a well developed, well nourished patient who is awake, alert, sp3 and in no acute distress. Head/Face: Normocephalic, atraumatic. Eyes: Pupils equal round and reactive to light, extra-ocular motions intact. Lids and lashes normal. Conjunctiva and sclera are non-icteric and not injected. Cornea within normal limits. Periorbital areas with no swelling, redness, or edema. Neck: Trachea midline, no thyromegaly or masses palpated, and no cervical lymphadenopathy. Supple, full range of motion without nuchal rigidity, or vertebral point tenderness. No Meningismus. Chest/axilla: Normal chest wall appearance and motion. Nontender with no deformity. No lesions are appreciated. Cardiovascular: Regular rate and rhythm with a normal S1 and S2. No gallops, murmurs, or rubs. Normal PMI, no JVD. No pulse deficits. Respiratory: Lungs have equal breath sounds bilaterally, clear to auscultation and percussion. No rales, rhonchi or wheezes noted. No increased work of breathing, no retractions or nasal flaring. Abdomen/GI: Soft, non-tender, with normal bowel sounds. No distension or tympany. No guarding or rebound. No evidence of tenderness throughout. Back: No spinal tenderness. No costovertebral tenderness. Full range of motion. Skin: Warm, dry with normal turgor. Normal color with no rashes, no lesions, and no evidence of cellulitis. MS/ Extremity: Pulses equal, no cyanosis. Neurovascular intact. Full, normal range of motion. Neuro: Awake and alert, GCS 15, oriented to person, place, time, and situation. Cranial nerves II-XII grossly intact. Motor strength 5/5 in all extremities. Sensory grossly intact. Cerebellar exam normal. Normal gait. Vital Signs: 11:05 BP 120 / 81; Pulse 87; Resp 16; Pulse Ox 98% on R/A; Weight 131.09 kg; Height 5 ft. 5 iw in. ; Pain 4/10; 13:00 BP 113 / 80; Pulse 67; Resp 16; Temp 98.2; Pulse Ox 99% ; me1 11:05 Body Mass Index 48.09 (131.09 kg, 165.1 cm) iw 11:05 Pain Scale: Adult iw MDM: 11:05 Medical Screening Exam initiated sp3 12:59 Data reviewed: vital signs, nurses notes, old medical records, lab test result(s). ED sp3 course: 29-year-old female with probable heavy menses. Differential diagnosis includes heavy menses, related complication, anemia. Will check test first coupled with CBC. Further diagnostics if indicated. If negative, we will safely discharge patient home to PCP follow-up.. 13:25 ED course: test negative and CBC is normal including hemoglobin. We will sp3 discharge patient with PCP and gynecology follow-up at this time.. 01/24 12:13 Order name: Test, Urine; Complete Time: 13:25 sp3 01/24 12:18 Order name: CBC with Diff; Complete Time: 12:49 sp3 Administered Medications: No medications were administered Disposition Summary: 01/24/25 13:26 Discharge Ordered Notes: Location: Home sp3 Condition: Stable sp3 Diagnosis - Vaginal bleeding, menses sp3 Followup: sp3 - With: Private Physician - When: Upon discharge from the Emergency Department - Reason: Continuance of care Discharge Instructions: - Discharge Summary Sheet sp3 - Abnormal Uterine Bleeding sp3 Forms: - Medication Reconciliation Form sp3 - Antibiotic Education sp3 - Prescription Opioid Use sp3 - Patient Portal Instructions sp3 - Leadership Thank You Letter sp3 Signatures: Dispatcher [employer] Nallely Negro, Ceci Mccoy RN, MD MD sp3 Esther Raphael MD MD sw6
--- NOTE | 2025-01-24 13:26 | ER ---
Nurse's Notes [facility] Name: Nicolasa Rose Age: 29 yrs Sex: Female : 1995 Arrival Date: 01/24/2025 Time: 10:37 Bed 18 Private MD: Diagnosis: Vaginal bleeding, menses Presentation: 01/24 11:04 Chief complaint: Patient states: 2 days of vaginal bleeding , getting worse , mild me1 pelvic pain and nausea , test was negative last week, ,had her Nexplanon out a month ago. 11:04 Method Of Arrival: Ambulatory iw 11:04 Coronavirus screen: At this time, the client does not indicate any symptoms associated iw with coronavirus-19. Ebola Screen: No symptoms or risks identified at this time. Initial Sepsis Screen: Does the patient meet any 2 criteria? No. Patient's initial sepsis screen is negative. Does the patient have a suspected source of infection? No. Patient's initial sepsis screen is negative. Risk Assessment: Do you want to hurt yourself or someone else? Patient reports no desire to harm self or others. Onset of symptoms was January 22, 2025. 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 - Infectious Disease History:: Denies. - Social history:: Smoking status: Patient denies any tobacco usage or history of. Screenin:48 [facility] ED Fall Risk Assessment (Adult) History of falling in the last 3 months, me1 including since admission No falls in past 3 months (0 pts) Confusion or Disorientation No (0 pts) Intoxicated or Sedated No (0 pts) Impaired Gait No (0 pts) Mobility Assist Device Used No (0 pt) Altered Elimination No (0 pt) Score/Fall Risk Level 0 - 2 = Low Risk Maintained a safe environment, Provided non-skid footwear, Hourly rounding (assess needs \T\ fall precautionary measures) done. Abuse screen: Denies threats or abuse. Nutritional screening: No deficits noted. Tuberculosis screening: No symptoms or risk factors identified. Assessment: 12:48 General: Appears in no apparent distress. Behavior is calm, cooperative, appropriate me1 for age, Reports 2 days of vaginal bleeding , getting worse, bleeding is very heavy. mild pelvic pain and nausea , test was negative last week, ,had her Nexplanon out a month ago . Pain: Complains of pain in suprapubic area, right lower quadrant and left lower quadrant Pain does not radiate. Pain currently is 6 out of 10 on a pain scale. Quality of pain is described as crampy, Pain began 2-3 days ago. Is continuous. Neuro: Level of Consciousness is awake, alert, obeys commands, Oriented to person, place, time, situation, Appropriate for age. Cardiovascular: Patient's skin is warm and dry. Respiratory: Airway is patent Respiratory effort is even, unlabored, Respiratory pattern is regular, symmetrical. GI: Reports nausea. : Reports vaginal bleeding that is heavy flow. EENT: No signs and/or symptoms were reported regarding the EENT system. Derm: Skin is intact, is healthy with good turgor, Skin is pink, warm \T\ dry. Musculoskeletal: No signs and/or symptoms reported regarding the musculoskeletal system. Vital Signs: 11:05 BP 120 / 81; Pulse 87; Resp 16; Pulse Ox 98% on R/A; Weight 131.09 kg; Height 5 ft. 5 iw in. ; Pain 4/10; 13:00 BP 113 / 80; Pulse 67; Resp 16; Temp 98.2; Pulse Ox 99% ; me1 11:05 Body Mass Index 48.09 (131.09 kg, 165.1 cm) iw 11:05 Pain Scale: Adult iw ED Course: 10:40 Patient arrived in ED. cj3 10:43 Ceci Langford MD is Attending Physician. sp3 11:05 Triage completed. iw 11:07 Arm band placed on. iw 11:58 Hiral Odonnell, OWEN is Primary Nurse. ll1 11:59 Patient placed in an exam room, on a stretcher. ll1 12:48 Patient has correct armband on for positive identification. Bed in low position. Call me1 light in reach. Side rails up X2. Provided Education on: POC. Verbalized understanding.. Client placed on continuous cardiac and pulse oximetry monitoring. NIBP monitoring applied. Pulse ox on. NIBP on. 12:48 No provider procedures requiring assistance completed. Initial lab(s) drawn, by me, me1 sent to lab. Inserted saline lock: 22 gauge in left antecubital area, using aseptic technique. 13:32 IV discontinued, intact, bleeding controlled, No redness/swelling at site. Pressure me1 dressing applied. Administered Medications: No medications were administered Medication: 12:48 VIS not applicable for this client. me1 Outcome: 13:26 Discharge ordered by . sp3 13:32 Discharged to home ambulatory, with significant other, me1 13:32 Condition: stable 13:32 Discharge instructions given to patient, significant other, Instructed on discharge instructions, follow up and referral plans. Demonstrated understanding of instructions, follow-up care, 13:33 Patient left the ED. me1 Signatures: Nallely Raphael RN RN iw Hiral Odonnell RN RN ll1 Ceci Langford MD MD sp3 Erika Paredes RN RN me1 Audrey Abrams 3 Corrections: (The following items were deleted from the chart) 11:05 11:04 Chief complaint: Patient states: 2 days of vaginal bleeding , getting worse , iw mild pelvic pain and nausea iw 11:06 11:04 Chief complaint: Patient states: 2 days of vaginal bleeding , getting worse , iw mild pelvic pain and nausea , test was negative last week iw 12:10 11:04 Chief complaint: Patient states: 2 days of vaginal bleeding , getting worse , me1 mild pelvic pain and nausea , test was negative last week, ,had her Nexplanon out a month ago iw 12:48 11:04 Chief complaint: Patient states: 2 days of vaginal bleeding , getting worse , me1 mild pelvic pain and nausea , test was negative last week, ,had her Nexplanon out a month ago me1 12:53 12:48 GI: No signs and/or symptoms were reported involving the gastrointestinal system. me1 me1 13:32 13:00 BP 113 / 80; Pulse 67bpm; Resp 16bpm; Pulse Ox 99%; me1 me1
[2025-01-24 13:46] VITALS: BP 113/80; TEMP 98.2; O2SAT 99
== END 2025-01-24 13:33 | disposition home or self-care (01) ==
LOC: ER 10:37
DX: N93.9 Abnormal uterine and vaginal bleeding, unspecified (principal); Z88.0 Allergy status to penicillin; Z88.8 Allergy status to other drugs, medicaments and biological substances
CPT/HCPCS: 36415; 81025; 85025

== ENCOUNTER 2025-05-17 06:58 | Emergency (ER) | payer OTHER ==
--- OUTSIDE RECORDS SUMMARY | 2025-05-17 07:15 | XMS REPORT | Continuity of Care Document ---
Author Name Unknown Address [address] [facility] [address] [place] [address] [facility] Address [address] 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 Role Phone Loren Hernandez Primary Care Physician [phone] Fernandez Langford Attending Clinician Unavailable KIMBERLYN SR Attending Clinician Unavailable SANTY YARBROUGH Attending Clinician UnavailEsther Mancera DO Attending Clinician [phone] SANTOSH AREVALO Attending Clinician Unavailable Aurora Ashraf PA-C Attending Clinician [phone] LOREN HERNANDEZ Attending Clinician Unavailable MADHAVI COBB Attending Clinician Unavailab AURORA Whaley Attending Clinician Unavailable MD CARLOS A Attending Clinician Unavailab le LAB47 Attending Clinician Unavailable NATHEN NIETO Attending Clinician Unavailabl RAMBO Martínez Attending Clinician Unavailable RAMBO MONDRAGON Attending Clinician Unavailable Jana WEST, Rambo Rodriguez Attending Clinician [phone] NAV655 Attending Clinician Unavailable DEBBIE RUBIN Attending Clinician Unavailable KIMBERLYN SR Attending Clinician Unavailable ALEJANDRO PFEIFFER Attending Clinician Unavailable Margarette WEST, Alejandro T Attending Clinician [phone] VINI GEE Attending Clinician Unavailab LILY Sepulveda Attending Clinician Unavailabl TIFFANY Lopez Attending Clinician Un available LEONOR MUELLER Attending Clinician Unavailable Leonor Mueller MD Attending Clinician [phone] Unknown, Attending Attending Clinician Unavailab JARRETT Garcia Attending Clinician Unavailable JARRETT NAVARRO Attending Clinician Unavailable VincJarrett Whelan Attending Clinician [phone] EbrahiDelvis Jean Attending Clinician [phone] DELVIS KAYE Attending Clinician Unavailable LAB90 Attending Clinician Unavailable ESTHER GARZA Attending Clinician Unavailab ESTHER Lynch Attending Clinician Unavailab KRYSTA Lambert Attending Clinician KAIDEN Russell Attending Clinician Unavailable BERONICA MOORE Attending Clinician Unavailable PASHA PEDROZA Attending Clinician Unavailable CHANTELL BOO Attending Clinician Unavailable GENET NI Attending Clinician Unavailab FRACISCO Mix Attending Clinician Unavailab HARI Dixon Attending Clinician Unavailable JANET PERAZA Attending Clinician Unavailable JUNIOR LYNN Attending Clinician Unavailable JOSETTE CHEUNG Attending Clinician Unavailable Gildardo DUNNE Attending Clinician Unavailable Gildardo Cohen Attending Clinician [phone] ELEN BENEDICT Attending Clinician Unavailable Elen Benedict NP Attending Clinician [phone] HARSH HARO Attending Clinician UnavailAna WEST, Harsh Attending Clinician [phone] Unknown, Attending Attending Clinician Unavailab le Doctor Unassigned, [place] Attending Clinician U NICOLE Gaspar Attending Clinician Unavailable KORTNEY TREJO Attending Clinician UnavailKORTNEY Chung Attending Clinician Unavailgerson WEST, Sydnie Attending Clinician [phone] SYDNIE ROQUE Attending Clinician Unavailable Josette Cheung MD Attending Clinician [phone] Shayy Gonzales MA Attending Clinician Unavailable Fontanilla III, CLIENT SUPPORT COORDINATOR, R Attending Clinician [phone] Edmundo KIM, Leandra Attending Clinician [phone] Pob, [facility] Main Attending Clinician Unavailpatricia Smith RN, Joanne Attending Clinician Unavailable Ultrasound, [facility] Attending Clinician Unavailgerson Arroyo MD, Meche Gale Attending Clinician + MECHE ARROYO Attending Clinician Una Migdalia Mckee RN Attending Clinician UnavailMERCY Akins Attending Clinician MERCY Barrow Attending Clinician Jarvis Naqvi MD Attending Clinician [phone] Dena Manrique RN Attending Clinician Unavailable JARVIS MCQUEEN Attending Clinician Unavailable Moriah Lay MD Attending Clinician [phone] SAM BRADLEY Attending Clinician Unavailable Sam Bradley MD Attending Clinician [phone], [facility] Room Attending Clinician UnavailMigdalia Morelos MD Attending Clinician [phone] MIGDALIA VAZQUEZ Attending Clinician Unavailable MIGDALIA VAZQUEZ Attending Clinician Unavailable Truong Leo RN Attending Clinician Ross Wesley RN, Cecy Attending Clinician Unavailable Leonor Mueller MD Attending Clinician [phone] Lab, [facility] Almeida Attending Clinician Unavailable ELPIDIO MARTINEZ Attending Clinician Unavailable Elpidio Leos Attending Clinician [phone] KAI LARKIN Attending Clinician Unavailable Kai Barrera Attending Clinician + Poppy Ceron PA-C Attending Clinician [phone] POPPY CERON Attending Clinician Unavailable John Cain RN Attending Clinician Unavailab NIXON Barroso Attending Clinician Unavailable Nixon Perdue DO Attending Clinician [phone] Jacqueline VETERINARY TECHNICIAN, Nydia Attending Clinician [phone] NYDIA PHILLIPS Attending Clinician UnavailEZRA Moore Attending Clinician Unavailable ELLE SAMUELS Attending Clinician Unavailable Elle Samuels PA-C Attending Clinician Unavailpatricia Mireles RN, [place] Franks Attending Clinician Unavailab nilda Ibikunle VETERINARY TECHNICIAN, Shanika Paul Attending Clinician [phone] Ebrahim VETERINARY TECHNICIAN, Delvis Attending Clinician [phone] Only, Marcos Db Test Attending Clinician UnavailCHRISTIANO Brown Attending Clinician Unavailable Jerod Angelo MD Attending Clinician [phone] Provider, [facility] Attending Clinician Un available Devante FORDP, Krysta Jain Attending Clinician [phone] KRYSTA MCKEON Attending Clinician Unavailab Farzad Medrano DO Attending Clinician [phone] Christiano Angeles PA-C Attending Clinician [phone] , [facility] Attending Clinician Unavailable Elan Denny MD Attending Clinician [phone] Trevor John MD Attending Clinician [phone] Gabino Alvarez MD Attending Clinician + [phone] Nurse, [facility] Attending Clinician Un available JOEL ODOM M.D. Attending Clinician KIMBERLYN Melgar Admitting Clinician Unavailable JOSETTE CHEUNG Admitting Clinician Unavailable ALEJANDRO PFEIFFER Admitting Clinician Unavailable JARRETT NAVARRO Admitting Clinician Unavailable FRACISCO NAGY Admitting Clinician Unavailab Gildardo Gross Admitting Clinician Unavailable ELEN BENEDICT Admitting Clinician Unavailable Josette Cheung MD Admitting Clinician [phone] Kimberlyn Sr MD Admitting Clinician MERCY STEWART Admitting Clinician SAM Braun Admitting Clinician Unavailable Sam Bradley MD Admitting Clinician [phone] ELPIDIO MARTINEZ Admitting Clinician Unavailable KORTNEY TREJO Admitting Clinician UnavailNIXON Garland Admitting Clinician Unavailable KAI LARKIN Admitting Clinician Unavailable Gabino Alvarez MD Admitting Clinician [phone] Payers Payer Name Policy Type Policy Number Effective Date Expirati on Date Source [facility] [id number] 2019 00:00:00 [facility] GUIDRY COPAY FOCUS 9 [id number] 2024 00:00:00 [facility] W/ ANAT STORM [id number] 2024 00:00:00 [facility] [place] [facility] [id number] 2024 00:00:00 [employer] 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 ON 9 [id number] 2024 00:00:00 [employer] W/ ANAT SPARROW [id number] 2024 00:00:00 2024 00:00:00 [facility] [id number] 2020 00:00:00 [facility] [id number] 2020 00:00:00 [facility] [id number] 2020 00:00:00 [facility] [id number] 2020 00:00:00 [facility] [id number] 2020 00:00:00 [facility] [id number] 2020 00:00:00 [facility] Problems Condition Name Condition Details Condition Category Status Onset Date Resolution Date Last Treatment Date Treating Clinician Comments Source BMI 40.0-44.9, adult BMI 40.0-44.9, adult Disease Active 9-18 00:00: 00 Anat Seybold - Externa l Strain of right knee, initial encounter Strain of right knee, initial encounter Disease Active 8-04 00:00: 00 [facility] Acute pain of right knee Acute pain of right knee Disease Active 8-04 00:00: 00 [facility] Nexplanon in place Nexplanon in place Disease Active 11-05 00:00: 00 [facility] BMI 39.0-39.9, adult BMI 39.0-39.9, adult Disease Active 6- 00:00: 00 [facility] [id number] Multigravi da in third trimester Problem Active [facility] [id number] Panic disorder [episodic paroxysmal anxiety] Problem Active [facility] [id number] Generalize d anxiety disorder Problem Active [facility] [id number] Seasonal allergies Problem Active [facility] History of back pain History of back pain Problem [id number] [facility] d [facility] [id number] Current moderate episode of major depressive disorder without prior episode Problem Active [facility] [id number] Morbid (severe) obesity due to excess calories Problem Active [facility] [id number] Primary insomnia Problem Active [facility] History of depression History of depression Problem [...] 1-04 00:00: 00 2022-11-05 00:00:00 2022-11-05 11:05:00 [facility] General counseling and advice on female contracept ion General counseling and advice on female contracept ion Disease Resolve d 2021-10 2-19 00:00: 00 2022-11-05 00:00:00 2022-11-05 11:05:01 [facility] Positive GBS test Positive GBS test Disease Resolve d 2021-1 2-09 00:00: 00 2022-11-05 00:00:00 2022-11-05 11:05:02 [facility] Encounter for tubal ligation counseling Encounter for tubal ligation counseling Disease Resolve d 2021-0 9-01 00:00: 00 2022-11-05 00:00:00 2022-11-05 11:05:03 [facility] Obesity affecting , antepartum Obesity affecting , antepartum Disease Resolve d 1 2-01 00:00: 00 2022-10-21 00:00:00 2022-10-21 12:46:[address] [facility] Group B streptococ johnny infection in Group B streptococ johnny infection in Disease Resolve d 2021-10 1-07 00:00: 00 2022-10-21 00:00:00 2022-10-21 12:46:58 [facility] Depression affecting , antepartum Depression affecting , antepartum Disease Resolve d 2021-0 9-21 00:00: 00 2022-10-21 00:00:00 2022-10-21 12:46:25 [facility] 39 weeks gestation of 39 weeks gestation of Disease Resolve d 2019-0 4-22 00:00: 00 2022-10-21 00:00:00 2022-10-21 12:46:50 [facility] BMI 40.0-44.9, adult BMI 40.0-44.9, adult Disease Resolve d 2019- 3-05 00:00: 00 2022-10-21 00:00:00 2022-10-21 12:46:29 [facility] Supervisio n of other high risk , antepartum Supervisio n of other high risk , antepartum Disease Resolve d 1-27 00:00: 00 2022-10-21 00:00:00 2022-10-21 12:46:44 [facility] Liveborn infant, of reyna , born in hospital by vaginal delivery Liveborn infant, of reyna , born in hospital by vaginal delivery Disease Resolve d 2016-0 6-23 00:00: 00 2022-10-21 00:00:00 2022-10-21 12:47:04 [facility] Third trimester Third trimester Disease Resolve d 2021-1 2-01 00:00: 00 2022-09-27 00:00:00 2022-09-27 06:02:13 [facility] Person with feared complaint in whom no diagnosis was made Person with feared complaint in whom no diagnosis was made Disease Resolve d 2021-1 2-01 00:00: 00 2022-09-27 00:00:00 2022-09-27 06:02:07 [facility] Pelvic pain affecting in third trimester, antepartum Pelvic pain affecting in third trimester, antepartum Disease Resolve d 2021-10 1-07 00:00: 00 2022-09-27 00:00:00 2022-09-27 06:01:43 [facility] History of oligohydra mnios in prior , currently in third trimester History of oligohydra mnios in prior , currently in third trimester Disease Resolve d 2021-1 0-31 00:00: 00 2022-09-27 00:00:00 2022-09-27 06:01:13 [facility] Urinary tract infection without hematuria, site unspecifie d Urinary tract infection without hematuria, site unspecifie d Disease Resolve d 1 0-14 00:00: 00 2022-09-27 00:00:00 2022-09-27 06:02:14 [facility] Edema during in second trimester Edema during in second trimester Disease Resolve d 2021-0 9-16 00:00: 00 2022-09-27 00:00:00 2022-09-27 06:01:27 [facility] Obesity in , antepartum Obesity in , antepartum Disease Resolve d 2021-0 9-16 00:00: 00 2022-09-27 00:00:00 2022-09-27 06:01:41 [facility] Abdominal pain, right lower quadrant Abdominal pain, right lower quadrant Disease Resolve d 2022-0 7-06 00:00: 00 2022-09-27 00:00:00 2022-09-27 06:01:23 [facility] Nausea and vomiting during Nausea and vomiting during Disease Resolve d 2021-0 5-23 00:00: 00 2022-09-27 00:00:00 2022-09-27 06:01:30 [facility] Nausea and vomiting during Nausea and vomiting during Disease Resolve d 2021-0 5-23 00:00: 00 2022-09-27 00:00:00 2022-09-27 06:01:30 [facility] Subchorion ic hematoma in first trimester, single or unspecifie d fetus Subchorion ic hematoma in first trimester, single or unspecifie d fetus Disease Resolve d 0 7-06 00:00: 00 2022-09-17 00:00:00 2022-09-17 10:51:20 [facility] 15 weeks gestation of 15 weeks gestation of Disease Resolve d 0 7-06 00:00: 00 2022 00:00:00 2022 16:05:36 [facility] with inconclusi ve viability, single or unspecifie d fetus with inconclusi ve viability, single or unspecifie d fetus Disease Resolve d 0 4-19 00:00: 00 2022 00:00:00 2022 16:05:33 [facility] Missed menses Missed menses Disease Resolve d 0 4-19 00:00: 00 2022 00:00:00 2022 16:05:31 [facility] with inconclusi ve viability, single or unspecifie d fetus with inconclusi ve viability, single or unspecifie d fetus Disease Resolve d 2021-0 4-19 00:00: 00 2022 00:00:00 2022 16:05:33 [facility] Oligohydra mnios Oligohydra mnios Disease Resolve d 2020-0 4-22 00:00: 00 2020-02-29 00:00:00 2020-02-29 09:26:05 [facility] Obesity (BMI 30-39.9) Obesity (BMI 30-39.9) Disease Resolve d 9-06 00:00: 00 2020-01-30 00:00:00 2020-01-30 21:40:57 [facility] 26 weeks gestation of 26 weeks gestation of Disease Resolve d 11-05 00:00: 00 2019-12-03 00:00:00 2019-12-03 14:20:39 [facility] Postprandi al nausea Postprandi al nausea Disease Resolve d 2018-10 00:00: 00 2019-11-05 00:00:00 2019-11-05 17:51:31 [facility] 40 weeks gestation of 40 weeks gestation of Disease Resolve d 6 00:00: 00 2019-10-07 00:00:00 2019-10-07 07:23:47 [facility] Active labor at term Active labor at term Disease Resolve d 04-01 00:00: 00 2019-10-07 00:00:00 2019-10-07 07:23:49 [facility] Common Discomfort s of Common Discomfort s of Disease Resolve d 3- 00:00: 00 2019-10-07 00:00:00 2022-04-25 00:40:01 [facility] Allergies, Adverse Reactions, Alerts Allergy [...] reaction s Active Rash 2014-10 00:00: 00 [facility] ARIPIPRA ZOLE DRUG INGREDI Active Rash 2014-10 00:00: 00 [facility] PENICILL INS Drug Class Active Rash 2014-10 00:00: 00 [facility] Aripipra zole Drug Allergy Active Rash 2014-10 00:00: 00 [facility] Penicill ins Propensi ty to adverse reaction s Active Rash 2014-10 00:00: 00 [facility] Penicill ins Propensi ty to adverse reaction s Active Rash 2014-10 00:00: 00 [facility] Aripipra zole Monohydr ate Propensi ty to adverse reaction s Active Rash 2014-10 00:00: 00 Anat Mesa - Externa l Penicill ins Propensi ty to adverse reaction s Active Rash 2014-10 00:00: 00 Other Reaction( s): Unknown Anat Mesa - Externa l Skin Adhesive s Propensi ty to adverse reaction s Active Rash 03-04 00:00: 00 Anat Mesa - Raymundoa l Abilify [facility] allergy [facility] History of tobacco use Passive smoker Anat rodriguez - External Sexual orientation K wojciech Mesa - External Alcoholic beverage intake 2025-04-26 00:00:00 2025-04-26 00:00:00 .29 /d Anat Mesa - External History of Social function 2025-04-26 00:00:00 2025-04-26 00:00:00 Anat Mesa - External Alcohol Comment 2024-05-22 00:00:00 2024-05-22 00:00:00 socially Anat Mesa - External Sex 2024-01-18 21:27:43 2024-01-18 21:27:43 Female (finding) Anat Mesa - External Alcohol intake 2023-11-30 00:00:00 2023-11-30 00:00:00 Ex-drinker (finding) [facility] Exposure to SARS-CoV-2 (event) 2023-02-03 00:00:00 2023-02-13 19:59:00 Not sure [facility] Tobacco use and exposure 2022-09-27 00:00:00 2022-09-27 00:00:00 Smokeless tobacco non-user [facility] Sex assigned at 1995 00:00:00 1995 00:00:00 Anat Hurley Smoking Status Start Date Stop Date Source Tobacco smoking consumption unknown Anat Hurley Never smoked tobacco Anat Hurley Medications Ordered Medication Name Filled Medication Name Start Date Stop Date Current Medication? Ordering Clinician Indication Dosage Frequency Signature (SIG) Comments Components Source Nitrofurant oin&Nit. Macrocryst 100 mg capsule 05-14 00:00: 00 05-22 04:59 :00 Yes [id number] 100mg Take 1 capsule by mouth in the morning and 1 capsule in the evening. Do all this for 7 days. [facility] FLUTICASONE PROPIONATE, NASAL, 50 MCG/ACT nasal Suspension 04-26 15:26: 53 Yes INSTILL TWO (2) SPRAYS INTO EACH NOSTRIL IN THE MORNING. Anat chan Benzonatate 100 MG oral Capsule 04-26 00:00: 00 Yes [id number] 100mg Q.[id number] 3D Take 1 capsule (100 mg total) by mouth 3 times daily as needed for cough. Anat chan Azithromyci n 250 MG oral Tablet 04-26 00:00: 00 05-02 04:59 :00 Yes [id number] Take 2 tablets by mouth on day 1 then 1 tablet by mouth daily for 4 days thereafter .. Anat chan bromphenira mine-pseudo ephedrine-D M (BROMFED DM) 2-30-10 mg/5 mL syrup 04-07 00:00: 00 Yes [id number] 5mL Take 5 mL by mouth 3 times daily as needed for Cold symptoms. [facility] fluticasone propionate 50 mcg/actuati on nasal spray 04-07 00:00: 00 Yes [id number] 2{spray } Use 2 Sprays in each nostril in the morning. [facility] albuterol sulfate HFA 90 mcg/actuati on aerosol inhaler 04-07 00:00: 00 Yes [id number] 2{puff} Inhale 2 Puffs every 6 hours as needed for Bronchospa sm. [facility] azithromyci n 250 mg tablet 04-07 00:00: 00 04-13 04:59 :00 Yes [id number] Take 2 tablets by mouth daily for 1 day, THEN 1 tablet daily for 4 days. [facility] Norethindro ne, Contracepti ve, 0.35 MG oral Tablet 03-25 00:00: 00 04-26 00:00 :00 No 1{tbl} QD Take 1 tablet (0.35 mg total) by mouth daily. Anat chan Roverto 1/20 1-20 MG-MCG oral Tablet 03-25 00:00: 00 04-26 00:00 :00 No 1{tbl} QD Take 1 tablet by mouth daily. Anat chan medroxyPROG ESTERone Acetate (Provera) 10 MG oral Tablet 03-20 00:00: 00 04-26 00:00 :00 No [id number] Take 1 pill qd on Day 15-24 of each menstrual cycle for 10 days, Day 1= first day of menses,exp ect cycle 3-7 days after medication finished. Anat chan Phentermine HCl 37.5 MG oral Tablet 12 00:00: 00 04-26 00:00 :00 No [id number] 37.5mg Take 1 tablet (37.5 mg total) by mouth every morning (before breakfast) . Anat chan hydroCHLORO thiazide 12.5 MG oral Capsule 08 00:00: 00 Yes [id number] 12.5mg QD Take 1 capsule (12.5 mg total) by mouth daily. Anat chan Phentermine HCl 37.5 MG oral Tablet 12-26 00:00: 00 Yes [id number] 37.5mg Take 1 tablet (37.5 mg total) by mouth every morning (before breakfast) . Anat chan Topiramate 25 MG oral Tablet 12-26 00:00: 00 04-26 00:00 :00 No [id number] 25mg Q.5D Take 1 tablet (25 mg total) by mouth 2 times daily. Anat chan Norethindro ne, Contracepti ve, (Ortho Micronor) 0.35 MG oral Tablet 12-26 00:00: 00 02-14 00:00 :00 No [id number] .35mg QD Take 1 tablet (0.35 mg total) by mouth daily. Anat chan Norethindro ne Acet-Ethiny l Est (Loestrin ,) 1-20 MG-MCG oral Tablet 12-17 00:00: 00 Yes [id number] 1{tbl} QD Take 1 tablet by mouth daily. Anat chan Phentermine HCl 37.5 MG oral Tablet 11-26 00:00: 00 12-26 00:00 :00 No [id number] 18.75mg Take 0.5 tablets (18.75 mg total) by mouth every morning (before breakfast) . Anat chan Diclofenac Sodium 75 MG oral Tablet Delayed Response 10-29 00:00: 00 Yes [id number] 75mg Q.5D Take 1 tablet (75 mg total) by mouth 2 times daily. Anat chan HYDROcodone -acetaminop hen (NORCO 5) tablet 1 tablet 10-25 17:15: 00 10-25 17:38 :00 No 1{tbl} 1 tablet, Oral, ONCE, 1 dose, On Madd[place] 10/25/24 at 1115, [facility]VIN [facility] ibuprofen 800 mg tablet 10-25 00:00: 00 Yes [id number] 800mg Take 1 tablet by mouth in the morning and 1 tablet at noon and 1 tablet in the evening. Take with meals. [facility] traMADoL 50 mg tablet 10-25 00:00: 00 11-02 05:59 :00 No [id number] 50mg Take 1 tablet by mouth every 6 (six) hours as needed for Pain (scale 7-10) for up to 7 days. Indication s: acute pain [facility] Gabapentin 100 MG oral Capsule 10-16 00:00: 00 Yes [id number] 100mg Q.[id number] 3D Take 1 capsule (100 mg total) by mouth 3 times daily. Anat chan Clindamycin HCl 150 MG oral Capsule 10-16 00:00: 00 11-26 00:00 :00 No TAKE ONE (1) CAPSULE(S) BY MOUTH FOUR TIMES A DAY UNTIL ALL TAKEN. Anat chan Gabapentin 100 MG oral Capsule 2023-10 00:00: 00 Yes [id number] 100mg Q.[id number] 3D Take 1 capsule (100 mg total) by mouth 3 times daily. Anat chan Meloxicam 15 MG oral Tablet 2023-10 00:00: 00 Yes [id number] 15mg QD Take 1 tablet (15 mg total) by mouth daily Take with Meals, STOP IF UPSET STOMACH. Anat chan Phentermine HCl 37.5 MG oral Tablet 2023-10 10:15: 05 07-10 00:00 :00 No Take by mouth. Anat chan methylPREDN ISolone 4 MG oral Tablet Therapy Pack 2023-10 00:00: 00 08-30 00:00 :00 No [id number] 1{aldair} Take 1 aldair by mouth See Admin Instructio ns Use as directed. Anat chan Azithromyci n 250 MG oral Tablet 2023-10 00:00: 00 07-16 04:59 :00 No [id number] Take 2 tablets by mouth on day 1 then 1 tablet by mouth daily for 4 days thereafter .. Anat chan ketorolac (TORADOL) injection 15 mg 07-04 01:32: 00 07-04 01:44 :00 No 15mg 15 mg, Slow IV Push, ONCE, 1 dose, On Tue07/03/24 at 2044, [facility] bromphenira mine-pseudo ephedrine-D M (BROMFED DM) 2-30-10 mg/5 mL syrup 06-28 00:00: 00 07-09 04:59 :00 No [id number] 10mL Take 10 mL by mouth 4 (four) times daily for 10 days. [facility] Phentermine HCl 37.5 MG oral Tablet 06-27 00:00: 00 11-26 00:00 :00 No [id number] 37.5mg Take 1 tablet (37.5 mg total) by mouth every morning (before breakfast) . Anat chan codeine-gua ifenesin (ROBITUSSIN AC) 10-100 mg/5 mL oral solution 10 mL 06-26 01:45: 00 06-26 01:54 :00 No 10mL 10 mL, Oral, ONCE, 1 dose, On Tue06/25/24 at 2044, [facility] bromphenira mine-pseudo ephedrine-D M (BROMFED DM) 2-30-10 mg/5 mL syrup 06-25 00:00: 00 Yes [id number] 5mL Take 5 mL by mouth 4 (four) times daily as needed for Cough. [facility] guaiFENesin -Codeine 100-10 MG/5ML oral Solution 06-25 00:00: 00 07-03 04:59 :00 No 5mL Q.25D Take 5 mL by mouth every 6 hours as needed. Anat chan Albuterol HFA 108 (90 Base) MCG/ACT IN AERS 06-12 00:00: 00 Yes [id number] 2{puff} Q.25D Inhale 2 puffs into the lungs every 6 hours as needed for wheezing or shortness of breath. Anat chan FLUTICASONE PROPIONATE, NASAL, 50 MCG/ACT nasal Suspension 06-12 00:00: 00 11-26 00:00 :00 No [id number] 50ug QD Use 1 spray (50 mcg total) in each nostril daily. Anat chan Benzonatate 200 MG oral Capsule 06-12 00:00: 00 08-30 00:00 :00 No [id number] 200mg Q.[id number] 3D Take 1 capsule (200 mg total) by mouth 3 times daily as needed for cough. Anat chan Azelastine HCl 0.1 % nasal Solution 06-12 00:00: 00 08-30 00:00 :00 No [id number] 2 sprays in each nostril bid prn for congestion . Anat chan Meloxicam 15 MG oral Tablet 06-06 00:00: 00 08-30 00:00 :00 No 15mg QD Take 1 tablet (15 mg total) by mouth daily Take with Meals, STOP IF UPSET STOMACH. [facility] Famotidine (PEPCID) 20 MG oral tablet 05-30 00:00: 00 11-26 00:00 :00 No [id number] 20mg Q.5D Take 1 tablet (20 mg total) by mouth 2 times daily. [facility] Ondansetron HCl 4 MG oral Tablet 05-30 00:00: 00 06-27 00:00 :00 No [id number] 8mg [id number] 3D Take 2 tablets (8 mg total) [...] 05-22 00:00: 00 06-27 00:00 :00 No [id number] 15mg Take 1 capsule (15 mg total) by mouth every morning. [facility] Ketorolac Tromethamin e 10 MG oral Tablet 05-22 00:00: 00 06-06 00:00 :00 No [id number] 10mg Q.25D Take 1 tablet (10 mg total) by mouth every 6 hours as needed for pain. [facility] Norgestimat e-Eth Estradiol (Sprintec 28) 0.25-35 MG-MCG oral Tablet 05-18 00:00: 00 12-07 00:00 :00 No [id number] 100 1{tbl} QD Take 1 tablet by mouth daily. [facility] ketorolac (TORADOL) injection 30 mg 05-13 06:15: 00 05-13 06:15 :00 No 30mg 30 mg, Intramuscu lar, ONCE, 1 dose, On [place] 05/13/24 at 0115, Routine [facility] Azelastine HCl 0.1 % nasal Solution 05-10 00:00: 00 05-22 00:00 :00 No [id number] 1{spray } Q.5D Use 1 spray in each nostril 2 times daily. [facility] Pseudoeph-B romphen-DM 30-2-10 MG/5ML oral Syrup 05-10 00:00: 00 05-22 00:00 :00 No [id number] 10mL Q.25D Take 10 mL by mouth 4 times daily as needed. [facility] dexamethaso ne (DECADRON PHOSPHATE) injection 10 mg 10-14 05:00: 00 10-14 04:06 :00 No 10mg 10 mg, Intramuscu lar, ONCE, 1 dose, On [facility] 10/13/23 at 2300, Routine [facility] ketorolac (TORADOL) injection 30 mg 10-14 05:00: 00 10-14 04:07 :00 No 30mg 30 mg, Intramuscu lar, ONCE, 1 dose, On [place] 10/13/23 at 2300, Routine [facility] gabapentin (NEURONTIN) capsule 300 mg 10-14 04:00: 00 10-14 04:07 :00 No 300mg 300 mg, Oral, ONCE, 1 dose, On [place] 10/13/23 at 2200, ARVIN [facility] methylPREDN ISolone 4 mg tablets 10-14 00:00: 00 Yes [id number] 9102 Take by mouth SEE-INSTRU CTIONS. follow package directions [facility] gabapentin 300 mg capsule 10-13 00:00: 00 Yes [id number] 300mg Take 1 capsule by mouth 3 (three) times daily as needed for Pain (scale 4-6) or Pain (scale 7-10). [facility] ketorolac 10 mg tablet 10-13 00:00: 00 Yes [id number] 9102 10mg Take 1 tablet by mouth every 6 (six) hours as needed for Pain (scale 1-3). [facility] methocarbam oL 750 mg tablet 10-13 00:00: 00 10-17 05:59 :00 No [id number] 750mg Take 1 tablet by mouth 4 (four) times daily for 3 days. [facility] azithromyci n 500 mg tablet 2022-10 00:00: 00 10-03 05:59 :00 No [id number] 500mg Take 1 tablet by mouth in the morning for 5 days. [facility] dexamethaso ne sod phos PF injection 10 mg 2022-10 06:00: 00 09-04 05:04 :00 No 10mg 10 mg, Intramuscu lar, ONCE, 1 dose, On 09/04/23 at 0000, Routine [facility] ipratropium -albuteroL (DUONEB) 0.5 mg-3 mg(2.5 mg base)/3 mL nebulizer solution 3 mL 2022-10 05:45: 00 09-04 05:03 :00 No 3mL 3 mL, Inhalation , ONCE NOW, 1 dose, On 09/03/23 at 2345, Routine [facility] albuterol 2.5 mg /3 mL (0.083 %) nebulizer solution 2022-10 00:00: 00 Yes [id number] 2.5mg Inhale 3 mL every 4 (four) hours. May also nebulize one extra every 6 hours. [facility] benzonatate 100 mg capsule 2022-10 00:00: 00 Yes [id number] 200mg Take 2 capsules by mouth 3 (three) times daily as needed for Cough. [facility] predniSONE 20 mg tablet 2022-10 00:00: 00 09-12 05:59 :00 No [id number] 20mg Take 1 tablet by mouth in the morning for 7 days. [facility] acetaminoph en (TYLENOL) tablet 650 mg 2022-10 17:30: 00 08-29 16:57 :00 No 650mg 650 mg, Oral, ONCE, 1 dose, On Tue08/29/23 at 1130, [facility] ketorolac (TORADOL) injection 60 mg 2022-10 17:30: 00 08-29 16:56 :00 No 60mg 60 mg, Intramuscu lar, ONCE, 1 dose, On Tue08/29/23 at 1130, [facility] famotidine (PEPCID AC) tablet 40 mg 2022-10 16:32: 00 08-29 16:56 :00 No 40mg 40 mg, Oral, ONCE, 1 dose, On Tue08/29/23 at 1045, [facility] ibuprofen 800 mg tablet 2022-10 00:00: 00 Yes [id number] 800mg Take 1 tablet by mouth every 6 (six) hours as needed for Pain (scale 4-6) or Temp > 38.5 C. [facility] benzonatate 100 mg capsule 2022-10 00:00: 00 Yes [id number] 100mg Take 1 capsule by mouth 3 (three) times daily as needed for Cough. [facility] oseltamivir (TAMIFLU) 75 mg capsule 2022-10 00:00: 00 Yes [id number] 75mg Take 1 capsule by mouth in the morning and 1 capsule in the evening. [facility] FLUoxetine 40 mg capsule 04-29 08:30: 07 Yes 40mg 1 capsule. [facility] cyclobenzap rine 10 mg tablet 03-29 00:00: 00 Yes [facility] azithromyci n 250 mg tablet 5-07 00:00: 00 09-03 00:00 :00 No [id number] Take 2 tablets on day 1 and 1 tablet on days 2-5. [facility] etonogestre L (NEXPLANON) implant 68 mg 11-05 18:00: 00 11-05 17:05 :00 No [id number] [address] [facility] phentermine HCl (PHENTERMIN E ORAL) 10-21 10:43: 33 Yes Take by mouth. [facility] fexofenadin e HCl (MAGNOLIA ALLERGY ORAL) 2021-10 16:51: 23 Yes [facility] vitamin w/FA tablet 2021-10 00:00: 00 11-05 00:00 :00 No [id number] 102 1{tbl} Take 1 tablet by mouth in the morning. [facility] docusate 100 mg capsule 2021-10 00:00: 00 11-05 00:00 :00 No [id number] 102 200mg Take 2 capsules by mouth once daily as needed for Constipati on. [facility] ferrous sulfate 325 mg (65 mg iron) tablet 2021-10 00:00: 00 11-05 00:00 :00 No [id number] 102 325mg Take 1 tablet by mouth in the morning and 1 tablet in the evening. [facility] ibuprofen 600 mg tablet 2021-10 00:00: 00 11-05 00:00 :00 No [id number] 102 600mg Take 1 tablet by mouth every 6 (six) hours as needed (Pain). Take with food or milk. [facility] norethindro ne 0.35 mg tablet 2021-10 00:00: 00 11-05 00:00 :00 No [id number] 102 1{tbl} Take 1 tablet by mouth in the morning. [facility] rho(D) immune globulin (RHOGAM) syringe 300 mcg 2021-10 20:35: 22 Yes 300ug 300 mcg, Intramuscu lar, ONCE, For 1 dose, Conditiona l, Routine [facility] HYDROcodone -acetaminop hen (NORCO 5) 5-325 mg tablet 1 tablet 2021-10 20:35: 02 Yes 1{tbl} 1 tablet, Oral, Q6HPRN, Starting on Tue09/27/22 at 1435, Until Discontinu ed, Routine, Pain (scale 7-10) [facility] ibuprofen (IBU) tablet 600 mg 2021-10 20:35: 02 Yes 600mg 600 mg, Oral, Q6HPRN, Starting on Tue09/27/22 at 1435, Until Discontinu ed, Routine, Pain (scale 4-6) [facility] acetaminoph en (TYLENOL) tablet 650 mg 2021-10 20:35: 02 Yes 650mg 650 mg, Oral, Q6HPRN, Starting on Tue09/27/22 at 1435, Until Discontinu ed, Routine, Pain (scale 1-3) [facility] diphenhydrA MINE (BENADRYL) tablet 25 mg 2021-10 20:35: 02 Yes 25mg 25 mg, Oral, Q6HPRN, Starting on Tue09/27/22 at 1435, Until Discontinu ed, Routine, Sleep, Itching [facility] ondansetron (ZOFRAN (PF)) injection 4 mg 2021-10 20:35: 02 Yes 4mg 4 mg, Slow IV Push, Q8HPRN, Starting on Tue09/27/22 at 1435, Until Discontinu ed, Routine, Nausea and Vomiting (N/V) [facility] simethicone (GAS RELIEF (SIMETHICON E)) chewable tablet 160 mg 2021-10 20:35: 02 Yes 160mg 160 mg, Oral, PC+HSPRN, Starting on Tue09/27/22 at 1435, Until Discontinu ed, Routine, Gas [facility] docusate (COLACE) capsule 200 mg 2021-10 20:35: 02 Yes 200mg 200 mg, Oral, QDAILYPRN, Starting on Tue09/27/22 at 1435, Until Discontinu ed, Routine, Constipati on [facility] magnesium hydroxide (MILK OF MAGNESIA) 400 mg/5 mL suspension 30 mL 2021-10 20:35: 02 Yes 30mL 30 mL, Oral, QDAILYPRN, Starting on Tue09/27/22 at 1435, Until Discontinu ed, Routine, Constipati on [facility] benzocaine- menthol (DERMOPLAST ) 20-0.5 % topical spray 2021-10 20:35: 02 Yes Topical, PRN, Starting on Tue09/27/22 at 1435, Until Discontinu ed, Routine, Perineum discomfort [facility] witch Monica (TUCKS) 50 % topical pad 2021-10 20:34: 48 Yes Topical, Q4HPRN, Starting on Tue09/27/22 at 1434, Until Discontinu ed, Routine, rectal/hem orrhoidal pain [facility] oxytocin (PITOCIN) 30 units in NS 500 mL IV infusion 2021-10 20:14: 48 09-27 20:34 :59 No 600mL/h 600 mL/hr, IV Infusion, PRN, For post delivery uterine atony., Starting on Tue09/27/[address] at 600 mL/hr for 1 hr then 150 mL/hr for 1 hr.
[facility] oxytocin (PITOCIN) 30 units in NS 500 mL IV infusion 2021-10 20:14: 48 09-27 20:34 :59 No 300mL/h 300 mL/hr, IV Infusion, SEE-INSTRU CTIONS, Starting on Tue09/27/[address] at 300 mL/hr for 1 hr then 150 mL/hr for 1 hr. & nbsp; For post delivery uterotonic
[facility] PIB fentaNYL-ro pivacaine 2 mcg/mL-0.1 % (PF) in NS 200 mL epidural infusion RTU 2021-10 17:25: 00 09-27 20:21 :39 No Epidural, CONTINUOUS PRN, Starting on Tue09/27/22 at 1125, Until Tue09/27/22 at 1421, Routine, Intra-op [facility] lidocaine-e pinephrine (XYLOCAINE W/EPINEPHRI NE) 2 %-1:200,000 injection 2021-10 17:22: 00 09-27 20:21 :39 No Intravenou s, ONCE INTRA PROCEDURE, Starting on Tue09/27/22 at 1122, Until Tue09/27/22 at 1421, Routine, Intra-op [facility] lidocaine 1% (XYLOCAINE) 100 mg/10 mL (1 %) injection 2021-10 17:17: 00 09-27 20:21 :39 No Infiltrati on, ONCE INTRA PROCEDURE, Starting on Tue09/27/22 at 1117, Until Tue09/27/22 at 1421, Routine, Intra-op [facility] esomeprazol e magnesium (NEXIUM ORAL) 2021-10 14:16: 31 Yes Take by mouth. [facility] acetaminoph en 325 mg Cap 2021-10 14:16: 31 Yes Take by mouth. [facility] proMETHazin e (PHENERGAN) 25 mg in NaCl 0.9% (NS) 50 mL IV piggyback 2021-10 11:00: 00 09-27 22:13 :26 No 25mg 25 mg, IV Piggyback, Q4HPRN, Starting on Tue09/27/22 at 0500, Until Tue09/27/22 at 1613, Routine, Nausea and Vomiting (N/V) [facility] FENTanyl PF (SUBLIMAZE (PF)) injection 100 mcg 2021-10 11:00: 00 09-27 22:13 :26 No 100ug 100 mcg, Slow IV Push, Q1HPRN, Starting on Tue09/27/22 at 0500, Until Tue09/27/22 at 1613, Routine, Pain (scale 7-10) [facility] clindamycin in 5 % dextrose [...] Comments)< br>Restric vonda use approved by: [employer]
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 Restricted medication : JOSETTE CHEUNG [facility] oxytocin (PITOCIN) 30 units in NS 500 mL IV infusion 2021-10 11:00: 00 09-27 22:13 :32 No 2mU/min at 2-40 mL/hr, IV Infusion, TITRATE, Starting on Tue09/27/22 at 0500, Until Tue09/27/22 at 1613, ARVIN [facility] lactated ringers IV infusion 500 mL 2021-10 10:29: 52 09-27 22:13 :32 No 500mL at 999 mL/hr, 500 mL, IV Infusion, PRN - SEE INSTRUCTIO NS, Starting on Tue09/27/22 at 0429, Until Tue09/27/22 at 1613, Routine [facility] D5W-LR IV infusion 1,000 mL 2021-10 10:29: 52 09-27 22:13 :32 No 1000mL at 1-125 mL/hr, IV Infusion, TITRATE, Starting on Tue09/27/22 at 0429, Until Tue09/27/22 at 1613, Routine [facility] acetaminoph en 325 mg Cap 2021-10 09:18: 33 Yes Take by mouth. [facility] guaifenesin (MUCINEX ORAL) 2021-10 09:18: 33 Yes Take by mouth. [facility] esomeprazol e magnesium (NEXIUM ORAL) 2021-10 16:15: 19 Yes Take by mouth. [facility] acetaminoph en 325 mg Cap 2021-10 16:15: 19 Yes Take by mouth. [facility] esomeprazol e magnesium (NEXIUM ORAL) 2021-10 11:33: 58 Yes Take by mouth. [facility] acetaminoph en 325 mg Cap 2021-10 11:33: 58 Yes Take by mouth. [facility] esomeprazol e magnesium (NEXIUM ORAL) 2021-10 10:48: 25 Yes Take by mouth. [facility] acetaminoph en 325 mg Cap 2021-10 10:48: 25 Yes Take by mouth. [facility] esomeprazol e magnesium (NEXIUM ORAL) 2021-10 21:40: 31 Yes Take by mouth. [facility] acetaminoph en 325 mg Cap 2021-10 21:40: 31 Yes Take by mouth. [facility] esomeprazol e magnesium (NEXIUM ORAL) 2021-10 23:12: 38 Yes Take by mouth. [facility] acetaminoph en 325 mg Cap 2021-10 23:12: 38 Yes Take by mouth. [facility] esomeprazol e magnesium (NEXIUM ORAL) 2021-10 07:10: 48 Yes Take by mouth. [facility] acetaminoph en 325 mg Cap 2021-10 07:10: 48 Yes Take by mouth. [facility] acetaminoph en 325 mg Cap 2021-10 10:43: 38 Yes Take by mouth. [facility] fexofenadin e HCl (MAGNOLIA ALLERGY ORAL) 2021-10 10:43: 38 Yes [facility] metroNIDAZO LE (FLAGYL) tablet 500 mg 2021-10 01:58: 00 08-23 02:01 :00 No 500mg 500 mg, Oral, ONCE NOW, 1 dose, On 08/22/22 at 2000, Routine
Reason for Anti-Infec tive: Documented Infection< br>Documen vonda Infection Site: Pelvic
Duration of Therapy: 7 days [facility] esomeprazol e magnesium (NEXIUM ORAL) 2021-10 20:18: 11 Yes Take by mouth. [facility] acetaminoph en (TYLENOL) 325 mg Cap 2021-10 20:18: 11 Yes Take by mouth. [facility] metroNIDAZO LE 500 mg tablet 2021-10 00:00: 00 Yes [id number] 500mg Take 1 tablet by mouth every 12 (twelve) hours. [facility] esomeprazol e magnesium (NEXIUM ORAL) 2021-10 20:28: 12 Yes Take by mouth. [facility] acetaminoph en (TYLENOL) 325 mg Cap 2021-10 20:28: 12 Yes Take by mouth. [facility] esomeprazol e magnesium (NEXIUM ORAL) 2021-10 16:41: 09 Yes Take by mouth. [facility] acetaminoph en (TYLENOL) 325 mg Cap 2021-10 16:41: 09 Yes Take by mouth. [facility] fexofenadin e HCl (MAGNOLIA ALLERGY ORAL) 2021-10 08:36: 33 Yes [facility] NaCl 0.9% (NS) bolus infusion 1,000 mL 2021-10 13:45: 00 07-31 14:26 :00 No 1000mL at 999 mL/hr, 1,000 mL, IV Piggyback, ONCE, 1 dose, On 07/31/22 at 0845, STAT [facility] esomeprazol e magnesium (NEXIUM ORAL) 2021-10 13:26: 52 Yes Take by mouth. [facility] acetaminoph en (TYLENOL) 325 mg Cap 2021-10 13:26: 52 Yes Take by mouth. [facility] ondansetron 8 mg disintegrat ing tablet 2021-10 00:00: 00 Yes [id number] 8mg Take 1 tablet by mouth every 8 (eight) hours as needed for Nausea and Vomiting (N/V). [facility] fluoxetine HCl (FLUOXETINE ORAL) 2021-10 014 13:21: 03 07-23 00:00 :00 No 20mg Take 20 mg by mouth daily. [facility] Nitrofurant oin&Nit. Macrocryst (MACROBID) 100 mg capsule 100 mg 2021-10 16:15: 00 07-21 15:54 :00 No 100mg 100 mg, Oral, ONCE, 1 dose, On Tue07/21/22 at 1115, Routine
Reason for Anti-Infec tive: Empiric Therapy for Suspected Infection< br>Empiric Therapy Site: Urine
D uration of therapy: 72 hours [facility] fluoxetine HCl (FLUOXETINE ORAL) 2021-10 11:02: 42 Yes 20mg Take 20 mg by mouth daily. [facility] Nitrofurant oin&Nit. Macrocryst 100 mg capsule 2021-10 00:00: 00 07-30 00:00 :00 No [id number] 100mg Take 1 capsule by mouth in the morning and 1 capsule in the evening. [facility] fluoxetine HCl (FLUOXETINE ORAL) 2021-10 11:05: 17 Yes 20mg Take 20 mg by mouth daily. [facility] montelukast 10 mg tablet 04-30 00:00: 00 Yes [id number] 10mg Take 1 tablet by mouth every evening. [facility] buPROPion SR (WELLBUTRIN SR) 100 mg SR tablet 04-30 00:00: 00 09-03 00:00 :00 No [id number] 100mg Take 1 tablet by mouth in the morning and 1 tablet in the evening. [facility] ondansetron (ZOFRAN) 8 mg tablet 04-30 00:00: 00 07-30 00:00 :00 No [id number] 8mg Take 1 tablet by mouth every 8 (eight) hours as needed for Nausea and Vomiting (N/V). [facility] albuterol 90 mcg/actuati on inhaler 04-07 00:00: 00 09-03 00:00 :00 No [id number] 2{puff} Inhale 2 Puffs every 6 (six) hours as needed for Wheezing or Shortness of Breath. [facility] aspirin 81 mg EC tablet 04-07 00:00: 00 09-28 00:00 :00 No [id number] 81mg Take 1 tablet by mouth daily. [facility] buPROPion SR (WELLBUTRIN SR) 100 mg SR tablet 04-07 00:00: 00 04-28 00:00 :00 No [id number] 100mg Take 1 tablet by mouth 2 (two) times daily. [facility] montelukast 10 mg tablet 04-07 00:00: 00 04-28 00:00 :00 No [id number] 10mg Take 1 tablet by mouth every evening. [facility] guaiFENesin 400 mg tablet 04-04 00:00: 00 07-23 00:00 :00 No [id number] 400mg Take 1 tablet by mouth every 4 (four) hours as needed for Cough. [facility] ondansetron (ZOFRAN) 8 mg tablet 03-01 00:00: 00 04-28 00:00 :00 No [id number] 8mg Take 1 tablet by mouth every 8 (eight) hours as needed for Nausea and Vomiting (N/V). [facility] albuterol 90 mcg/actuati on inhaler 02-21 00:00: 00 07-23 00:00 :00 No [id number] 2{puff} Inhale 2 Puffs every 4 (four) hours as needed for Wheezing or Shortness of Breath. [facility] fluoxetine HCl (FLUOXETINE ORAL) 02-02 09:08: 33 Yes 20mg Take 20 mg by mouth daily. [facility] metoclopram demetris HCl 10 mg tablet 02-02 00:00: 07-23 00:00 :00 No [id number] Take one tablet every 8 hour as needed for nausea in [facility] 26-iron ps-folic-dh a (VITAFOL-ON E) 29 mg iron- 1 mg-200 mg per capsule 01-26 00:00: 00 07-23 00:00 :00 No [id number] 1{capsu le} Take 1 capsule by mouth daily for 180 days. [facility] 26-iron ps-folic-dh a (VITAFOL-ON E) 29 mg iron- 1 mg-200 mg per capsule 01-26 00:00: 00 07-23 00:00 :00 No [id number] 1{capsu le} Take 1 capsule by mouth daily for 180 days. [facility] Trazodone HCl 50 MG Trazodone HCl 50 MG 03-05 00:00: 00 No 1{table t_at_be dtime_a s_neede d} QD Trazodone HCl 50 MG busPIRone 5 mg tablet 03-27 00:00: 00 01-26 00:00 :00 No [id number] 5mg Take 1 tablet by mouth 2 (two) times daily. [facility] NUVARING 0.12-0.015 mg/24 hr vaginal insert 02-28 00:00: 00 09-30 00:00 :00 No [id number] 1{each} Insert 1 Each into vagina once every month. Insert vaginally and leave in place for 3 consecutiv e weeks, then remove for 1 week. [facility] vitamin w/FA tablet 24 00:00: 00 01-26 00:00 :00 No [id number] 1{tbl} Take 1 tablet by mouth daily. [facility] docusate calcium 240 mg capsule 24 00:00: 00 01-26 00:00 :00 No [id number] 240mg Take 1 capsule by mouth once daily as needed for Constipati on. [facility] ferrous sulfate 325 mg (65 mg iron) tablet 01-31 00:00: 01-26 00:00 :00 No [id number] 325mg Take 1 tablet by mouth 2 (two) times daily. [facility] ibuprofen 600 mg tablet 01-31 00:00: 00 01-26 00:00 :00 No [id number] 600mg Take 1 tablet by mouth every 6 (six) hours as needed (Pain). Take with food or milk. [facility] Flonase Flonase 2017-10 00:00: 00 Yes Soledad Gardner 2 sprays each nostril prn [facility] Flonase 50 MCG/ACT Flonase 50 MCG/ACT 2017-10 [...] Magnolia Merida Yes Soledad Gardner not defined [facility] FLUoxetine HCl 20 MG FLUoxetine HCl 20 MG No FLUoxetine HCl 20 MG Simpesse Simpesse No Simpesse FLUoxetine HCl 40 MG FLUoxetine HCl 40 MG No 1{capsu le} QD FLUoxetine HCl 40 MG Simpesse Simpesse No Simpesse busPIRone HCl 10 MG busPIRone HCl 10 MG No busPIRone HCl 10 MG traZODone HCl 50 MG traZODone HCl [...] Free 6 MO-64 YRS 2022-07-23 00:00:00 Completed [facility] TDAP 2022-07-23 00:00:00 Completed [facility] Influenza Virus Vaccine Quad IM, Preserv and ABX Free 6 MO-64 YRS 2022-07-23 [facility] Influenza Virus Vaccine Quad IM, Preserv and ABX Free 6 MO-64 YRS 2022-07-23 [facility] Com[facility] Influenza Virus Vaccine Quad IM, Preserv and ABX Free 6 MO-64 YRS 2022-07-23 00:00:00 Completed [facility] TDAP 2022-07-23 00:00:00 Completed [facility] Influenza Virus Vaccine Quad IM, Preserv and ABX Free 6 MO-64 YRS 2022-07-23 00:00:00 Completed [facility] 2022-07-23 00:00:00 Completed [facility] Influenza Virus Vaccine Quad IM, Preserv and ABX Free 6 MO-64 YRS 2022-07-23 00:00:00 Completed [facility] TDAP 2022-07-23 00:00:00 Completed [facility] Influenza Virus Vaccine Quad IM, Preserv and ABX Free 6 MO-64 YRS 2022-07-23 00:00:00 Completed [facility] TDAP 2022-07-23 00:00:00 Completed [facility] Influenza Virus Vaccine Quad IM, Preserv and ABX Free 6 MO-64 YRS 2022-07-23 00:00:00 Completed [facility] TDAP 2022-07-23 00:00:00 Completed [facility] Influenza Virus Vaccine Quad IM, Preserv and ABX Free 6 MO-64 YRS 2022-07-23 00:00:00 Completed [facility] TDAP 2022-07-23 00:00:00 Completed [facility] Influenza Virus Vaccine Quad IM, Preserv and ABX Free 6 MO-64 YRS 2022-07-23 00:00:00 Completed [facility] TDAP 2022-07-23 00:00:00 Completed [facility] Influenza Virus Vaccine Quad IM, Preserv and ABX Free 6 MO-64 YRS 2022-07-23 00:00:00 Completed [facility] TDAP 2022-07-23 00:00:00 Completed [facility] Influenza Virus Vaccine Quad IM, Preserv and ABX Free 6 MO-64 YRS 2022-07-23 00:00:00 Completed [facility] TDAP 2022-07-23 00:00:00 Completed [facility] Influenza Virus Vaccine Quad IM, Preserv and ABX Free 6 MO-64 YRS 2022-07-23 00:00:00 Completed [facility] TDAP 2022-07-23 00:00:00 Completed [facility] Influenza Virus Vaccine Quad IM, Preserv and ABX Free 6 MO-64 YRS 2022-07-23 00:00:00 Completed [facility] TDAP 2022-07-23 00:00:00 Completed [facility] Influenza Virus Vaccine Quad IM, Preserv and ABX Free 6 MO-64 YRS 2022-07-23 00:00:00 Completed [facility] TDAP 2022-07-23 00:00:00 Completed [facility] Influenza Virus Vaccine Quad IM, Preserv and ABX Free 6 MO-64 YRS 2022-07-23 00:00:00 Completed [facility] TDAP 2022-07-23 00:00:00 Completed [facility] Influenza Virus Vaccine Quad IM, Preserv and ABX Free 6 MO-64 YRS 2022-07-23 00:00:00 Completed [facility] TDAP 2022-07-23 00:00:00 Completed [facility] Influenza Virus Vaccine Quad IM, Preserv and ABX Free 6 MO-64 YRS 2022-07-23 00:00:00 Completed [facility] TDAP 2022-07-23 00:00:00 Completed [facility] Influenza Virus Vaccine Quad IM, Preserv and ABX Free 6 MO-64 YRS 2022-07-23 00:00:00 Completed [facility] TDAP 2022-07-23 00:00:00 Completed [facility] Influenza Virus Vaccine Quad IM, Preserv and ABX Free 6 MO-64 YRS 2022-07-23 00:00:00 Completed [facility] TDAP 2022-07-23 00:00:00 Completed [facility] Influenza Virus Vaccine Quad IM, Preserv and ABX Free 6 MO-64 YRS 2022-07-23 00:00:00 Completed [facility] TDAP 2022-07-23 00:00:00 Completed [facility] Influenza Virus Vaccine Quad IM, Preserv and ABX Free 6 MO-64 YRS 2022-07-23 00:00:00 Completed [facility] TDAP 2022-07-23 00:00:00 Completed [facility] Influenza Virus Vaccine Quad IM, Preserv and ABX Free 6 MO-64 YRS 2022-07-23 00:00:00 Completed [facility] TDAP 2022-07-23 00:00:00 Completed [facility] Influenza Virus Vaccine Quad IM, Preserv and ABX Free 6 MO-64 YRS 2022-07-23 00:00:00 Completed [facility] TDAP 2022-07-23 00:00:00 Completed [facility] Influenza Virus Vaccine Quad IM, Preserv and ABX Free 6 MO-64 YRS 2022-07-23 00:00:00 Completed [facility] TDAP 2022-07-23 00:00:00 Completed [facility] Influenza Virus Vaccine Quad IM, Preserv and ABX Free 6 MO-64 YRS 2022-07-23 00:00:00 Completed [facility] TDAP 2022-07-23 00:00:00 Completed [facility] Influenza Virus Vaccine Quad IM, Preserv and ABX Free 6 MO-64 YRS 2022-07-23 00:00:00 Completed [facility] TDAP 2022-07-23 00:00:00 Completed [facility] Influenza Virus Vaccine Quad IM, Preserv and ABX Free 6 MO-64 YRS 2022-07-23 00:00:00 Completed [facility] TDAP 2022-07-23 00:00:00 Completed [facility] Influenza Virus Vaccine Quad IM, Preserv and ABX Free 6 MO-64 YRS 2022-07-23 00:00:00 Completed [facility] TDAP 2022-07-23 00:00:00 Completed [facility] Influenza Virus Vaccine Quad IM, Preserv and ABX Free 6 MO-64 YRS 2022-07-23 00:00:00 Completed [facility] TDAP 2022-07-23 00:00:00 Completed [facility] Influenza Virus Vaccine Quad IM, Preserv and ABX Free 6 MO-64 YRS 2022-07-23 00:00:00 Completed [facility] TDAP 2022-07-23 00:00:00 Completed [facility] Influenza Virus Vaccine Quad IM, Preserv and ABX Free 6 MO-64 YRS 2022-07-23 00:00:00 Completed [facility] TDAP 2022-07-23 00:00:00 Completed [facility] Influenza Virus Vaccine Quad IM, Preserv and ABX Free 6 MO-64 YRS 2022-07-23 00:00:00 Completed [facility] TDAP 2022-07-23 00:00:00 Completed [facility] Influenza Virus Vaccine Quad IM, Preserv and ABX Free 6 MO-64 YRS 2022-07-23 00:00:00 Completed [facility] TDAP 2022-07-23 00:00:00 Completed [facility] Influenza Virus Vaccine Quad IM, Preserv and ABX Free 6 MO-64 YRS 2022-07-23 00:00:00 Completed [facility] TDAP 2022-07-23 00:00:00 Completed [facility] Influenza Virus Vaccine Quad IM, Preserv and ABX Free 6 MO-64 YRS 2022-07-23 00:00:00 Completed [facility] TDAP 2022-07-23 00:00:00 Completed [facility] Influenza Virus Vaccine Quad IM, Preserv and ABX Free 6 MO-64 YRS 2022-07-23 00:00:00 Completed [facility] TDAP 2022-07-23 00:00:00 Completed [facility] Influenza Virus Vaccine Quad IM, Preserv and ABX Free 6 MO-64 YRS 2022-07-23 00:00:00 Completed [facility] TDAP 2022-07-23 00:00:00 Completed [facility] Influenza Virus Vaccine Quad IM, Preserv and ABX Free 6 MO-64 YRS 2022-07-23 00:00:00 Completed [facility] TDAP 2022-07-23 00:00:00 Completed [facility] Influenza Virus Vaccine Quad IM, Preserv and ABX Free 6 MO-64 YRS 2022-07-23 00:00:00 Completed [facility] TDAP 2022-07-23 00:00:00 Completed [facility] Influenza Virus Vaccine Quad IM, Preserv and ABX Free 6 MO-64 YRS 2022-07-23 00:00:00 Completed [facility] TDAP 2022-07-23 00:00:00 Completed [facility] Influenza Virus Vaccine Quad IM, Preserv and ABX Free 6 MO-64 YRS 2022-07-23 00:00:00 Completed [facility] TDAP 2022-07-23 00:00:00 Completed [facility] Influenza Virus Vaccine Quad IM, Preserv and ABX Free 6 MO-64 YRS 2022-07-23 00:00:00 Completed [facility] TDAP 2022-07-23 00:00:00 Completed [facility] Influenza Virus Vaccine Quad IM, Preserv and ABX Free 6 MO-64 YRS (FLUCELVAX) 2022-07-23 00:00:00 Completed TDAP 2022-07-23 00:00:00 Completed Influenza Virus Vaccine Quad IM, Preserv and ABX Free 6 MO-64 YRS (FLUCELVAX) 2022-07-23 00:00:00 Completed TDAP 2022-07-23 00:00:00 Completed Influenza Virus Vaccine 2021-07-31 00:00:00 Completed [facility] Influenza Virus Vaccine 2021-07-31 00:00:00 Completed [facility] SARS-COV-2 COVID-19 OTIS/J&J VACCINE 2021-06-04 00:00:00 Completed [facility] SARS-COV-2 COVID-19 OTIS/J&J VACCINE 2021-06-04 00:00:00 Completed [facility] SARS-COV-2 COVID-19 OTIS/J&J VACCINE 2021-06-04 00:00:00 Completed [facility] SARS-COV-2 COVID-19 OTIS/J&J VACCINE 2021-06-04 00:00:00 Completed [facility] SARS-COV-2 COVID-19 OTIS/J&J VACCINE 2021-06-04 00:00:00 Completed [facility] SARS-COV-2 COVID-19 OTIS/J&J VACCINE 2021-06-04 00:00:00 Completed [facility] SARS-COV-2 COVID-19 OTIS/J&J VACCINE 2021-06-04 00:00:00 Completed [facility] SARS-COV-2 COVID-19 OTIS/J&J VACCINE 2021-06-04 00:00:00 Completed [facility] SARS-COV-2 COVID-19 OTIS/J&J VACCINE 2021-06-04 00:00:00 Completed [facility] SARS-COV-2 COVID-19 OTIS/J&J VACCINE 2021-06-04 00:00:00 Completed [facility] SARS-COV-2 COVID-19 OTIS/J&J VACCINE 2021-06-04 00:00:00 Completed [facility] SARS-COV-2 COVID-19 OTIS/J&J VACCINE 2021-06-04 00:00:00 Completed [facility] SARS-COV-2 COVID-19 OTIS/J&J VACCINE 2021-06-04 00:00:00 Completed [facility] SARS-COV-2 COVID-19 OTIS/J&J VACCINE 2021-06-04 00:00:00 Completed [facility] SARS-COV-2 COVID-19 OTIS/J&J VACCINE 2021-06-04 00:00:00 Completed [facility] SARS-COV-2 COVID-19 OTIS/J&J VACCINE 2021-06-04 00:00:00 Completed [facility] SARS-COV-2 COVID-19 OTIS/J&J VACCINE 2021-06-04 00:00:00 Completed [facility] SARS-COV-2 COVID-19 OTIS/J&J VACCINE 2021-06-04 00:00:00 Completed [facility] SARS-COV-2 COVID-19 OTIS/J&J VACCINE 2021-06-04 00:00:00 Completed [facility] SARS-COV-2 COVID-19 OTIS/J&J VACCINE 2021-06-04 00:00:00 Completed [facility] SARS-COV-2 COVID-19 OTIS/J&J VACCINE 2021-06-04 00:00:00 Completed [facility] SARS-COV-2 COVID-19 OTIS/J&J VACCINE 2021-06-04 00:00:00 Completed [facility] SARS-COV-2 COVID-19 OTIS/J&J VACCINE 2021-06-04 00:00:00 Completed [facility] SARS-COV-2 COVID-19 OTIS/J&J VACCINE 2021-06-04 00:00:00 Completed [facility] SARS-COV-2 COVID-19 OTIS/J&J VACCINE 2021-06-04 00:00:00 Completed [facility] SARS-COV-2 COVID-19 OTIS/J&J VACCINE 2021-06-04 00:00:00 Completed [facility] SARS-COV-2 COVID-19 OTIS/J&J VACCINE 2021-06-04 00:00:00 Completed [facility] SARS-COV-2 COVID-19 OTIS/J&J VACCINE 2021-06-04 00:00:00 Completed [facility] SARS-COV-2 COVID-19 OTIS/J&J VACCINE 2021-06-04 00:00:00 Completed [facility] SARS-COV-2 COVID-19 OTIS/J&J VACCINE 2021-06-04 00:00:00 Completed [facility] SARS-COV-2 COVID-19 OTIS/J&J VACCINE 2021-06-04 00:00:00 Completed [facility] SARS-COV-2 COVID-19 OTIS/J&J VACCINE 2021-06-04 00:00:00 Completed [facility] SARS-COV-2 COVID-19 OTIS/J&J VACCINE 2021-06-04 00:00:00 Completed [facility] SARS-COV-2 COVID-19 OTIS/J&J VACCINE 2021-06-04 00:00:00 Completed [facility] SARS-COV-2 COVID-19 OTIS/J&J VACCINE 2021-06-04 00:00:00 Completed [facility] SARS-COV-2 COVID-19 OTIS/J&J VACCINE 2021-06-04 00:00:00 Completed [facility] SARS-COV-2 COVID-19 OTIS/J&J VACCINE 2021-06-04 00:00:00 Completed [facility] SARS-COV-2 COVID-19 OTIS/J&J VACCINE 2021-06-04 00:00:00 Completed [facility] SARS-COV-2 COVID-19 OTIS/J&J VACCINE 2021-06-04 00:00:00 Completed [facility] SARS-COV-2 COVID-19 OTIS/J&J VACCINE 2021-06-04 00:00:00 Completed [facility] SARS-COV-2 COVID-19 OTIS/J&J VACCINE 2021-06-04 00:00:00 Completed [facility] SARS-COV-2 COVID-19 OTIS/J&J VACCINE 2021-06-04 00:00:00 Completed [facility] SARS-COV-2 COVID-19 OTIS/J&J VACCINE 2021-06-04 00:00:00 Completed [facility] SARS-COV-2 COVID-19 OTIS/J&J VACCINE 2021-06-04 00:00:00 Completed [facility] SARS-COV-2 COVID-19 OTIS/J&J VACCINE 2021-06-04 00:00:00 Completed [facility] SARS-COV-2 COVID-19 OTIS/J&J VACCINE 2021-06-04 00:00:00 Completed [facility] SARS-COV-2 COVID-19 OTIS/J&J VACCINE 2021-06-04 00:00:00 Completed [facility] SARS-COV-2 COVID-19 OTIS/J&J VACCINE 2021-06-04 00:00:00 Completed [facility] SARS-COV-2 COVID-19 OTIS/J&J VACCINE 2021-06-04 00:00:00 Completed [facility] SARS-COV-2 COVID-19 OTIS/J&J VACCINE 2021-06-04 00:00:00 Completed [facility] SARS-COV-2 COVID-19 OTIS/J&J VACCINE 2021-06-04 00:00:00 Completed [facility] SARS-COV-2 COVID-19 OTIS/J&J VACCINE 2021-06-04 00:00:00 Completed [facility] SARS-COV-2 COVID-19 OTIS/J&J VACCINE 2021-06-04 00:00:00 Completed [facility] SARS-COV-2 COVID-19 OTIS/J&J VACCINE 2021-06-04 00:00:00 Completed [facility] SARS-COV-2 COVID-19 OTIS/J&J VACCINE 2021-06-04 00:00:00 Completed [facility] SARS-COV-2 COVID-19 OTIS/J&J VACCINE 2021-06-04 00:00:00 Completed SARS-COV-2 COVID-19 OTIS/J&J VACCINE 2021-06-04 00:00:00 Completed TDAP (ADACEL) VACCINE 2019-12-03 00:00:00 Completed [facility] TDAP (ADACEL) VACCINE 2019-12-03 00:00:00 Completed [facility] TDAP (ADACEL) VACCINE 2019-12-03 00:00:00 Completed [facility] TDAP (ADACEL) VACCINE 2019-12-03 00:00:00 Completed [facility] TDAP (ADACEL) VACCINE 2019-12-03 00:00:00 Completed [facility] TDAP (ADACEL) VACCINE 2019-12-03 00:00:00 Completed [facility] TDAP (ADACEL) VACCINE 2019-12-03 00:00:00 Completed [facility] TDAP (ADACEL) VACCINE 2019-12-03 00:00:00 Completed [facility] TDAP (ADACEL) VACCINE 2019-12-03 00:00:00 Completed [facility] TDAP (ADACEL) VACCINE 2019-12-03 00:00:00 Completed [facility] TDAP (ADACEL) VACCINE 2019-12-03 00:00:00 Completed [facility] TDAP (ADACEL) VACCINE 2019-12-03 00:00:00 Completed [facility] TDAP (ADACEL) VACCINE 2019-12-03 00:00:00 Completed [facility] TDAP (ADACEL) VACCINE 2019-12-03 00:00:00 Completed [facility] TDAP (ADACEL) VACCINE 2019-12-03 00:00:00 Completed [facility] TDAP (ADACEL) VACCINE 2019-12-03 00:00:00 Completed [facility] TDAP (ADACEL) VACCINE 2019-12-03 00:00:00 Completed [facility] TDAP (ADACEL) VACCINE 2019-12-03 00:00:00 Completed [facility] TDAP (ADACEL) VACCINE 2019-12-03 00:00:00 Completed [facility] TDAP (ADACEL) VACCINE 2019-12-03 00:00:00 Completed [facility] TDAP (ADACEL) VACCINE 2019-12-03 00:00:00 Completed [facility] TDAP (ADACEL) VACCINE 2019-12-03 00:00:00 Completed [facility] TDAP (ADACEL) VACCINE 2019-12-03 00:00:00 Completed [facility] TDAP (ADACEL) VACCINE 2019-12-03 00:00:00 Completed [facility] TDAP (ADACEL) VACCINE 2019-12-03 00:00:00 Completed [facility] TDAP (ADACEL) VACCINE 2019-12-03 00:00:00 Completed [facility] TDAP (ADACEL) VACCINE 2019-12-03 00:00:00 Completed [facility] TDAP (ADACEL) VACCINE 2019-12-03 00:00:00 Completed [facility] TDAP (ADACEL) VACCINE 2019-12-03 00:00:00 Completed [facility] TDAP (ADACEL) VACCINE 2019-12-03 00:00:00 Completed [facility] TDAP (ADACEL) VACCINE 2019-12-03 00:00:00 Completed [facility] TDAP (ADACEL) VACCINE 2019-12-03 00:00:00 Completed [facility] TDAP (ADACEL) VACCINE 2019-12-03 00:00:00 Completed [facility] TDAP (ADACEL) VACCINE 2019-12-03 00:00:00 Completed [facility] TDAP (ADACEL) VACCINE 2019-12-03 00:00:00 Completed [facility] TDAP (ADACEL) VACCINE 2019-12-03 00:00:00 Completed [facility] TDAP (ADACEL) VACCINE 2019-12-03 00:00:00 Completed [facility] TDAP (ADACEL) VACCINE 2019-12-03 00:00:00 Completed [facility] TDAP (ADACEL) VACCINE 2019-12-03 00:00:00 Completed [facility] TDAP (ADACEL) VACCINE 2019-12-03 00:00:00 Completed [facility] TDAP (ADACEL) VACCINE 2019-12-03 00:00:00 Completed [facility] TDAP (ADACEL) VACCINE 2019-12-03 00:00:00 Completed [facility] TDAP (ADACEL) VACCINE 2019-12-03 00:00:00 Completed [facility] TDAP (ADACEL) VACCINE 2019-12-03 00:00:00 Completed [facility] TDAP (ADACEL) VACCINE 2019-12-03 00:00:00 Completed [facility] TDAP (ADACEL) VACCINE 2019-12-03 00:00:00 Completed [facility] TDAP (ADACEL) VACCINE 2019-12-03 00:00:00 Completed [facility] TDAP (ADACEL) VACCINE 2019-12-03 00:00:00 Completed [facility] TDAP (ADACEL) VACCINE 2019-12-03 00:00:00 Completed [facility] TDAP (ADACEL) VACCINE 2019-12-03 00:00:00 Completed [facility] TDAP (ADACEL) VACCINE 2019-12-03 00:00:00 Completed [facility] TDAP (ADACEL) VACCINE 2019-12-03 00:00:00 Completed [facility] TDAP (ADACEL) VACCINE 2019-12-03 00:00:00 Completed [facility] TDAP (ADACEL) VACCINE 2019-12-03 00:00:00 Completed [facility] TDAP (ADACEL) VACCINE 2019-12-03 00:00:00 Completed [facility] TDAP (ADACEL) VACCINE 2019-12-03 00:00:00 Completed [facility] TDAP (ADACEL) VACCINE 2019-12-03 00:00:00 Completed [facility] Adacel (Tdap) Adacel (Tdap) 2019-08-29 13:16:00 Completed [facility] Adacel (Tdap) Adacel (Tdap) 2019-08-29 13:16:00 Completed [facility] TDAP 2019-08-29 00:00:00 Completed [facility] TDAP 2019-08-29 00:00:00 Completed [facility] TDAP 2019-08-29 00:00:00 Completed [facility] TDAP 2019-08-29 00:00:00 Completed [facility] TDAP 2019-08-29 00:00:00 Completed [facility] TDAP 2019-08-29 00:00:00 Completed [facility] TDAP 2019-08-29 00:00:00 Completed [facility] TDAP 2019-08-29 00:00:00 Completed [facility] TDAP 2019-08-29 00:00:00 Completed [facility] TDAP 2019-08-29 00:00:00 Completed [facility] TDAP 2019-08-29 00:00:00 Completed [facility] TDAP 2019-08-29 00:00:00 Completed [facility] TDAP 2019-08-29 00:00:00 Completed [facility] TDAP 2019-08-29 00:00:00 Completed [facility] TDAP 2019-08-29 00:00:00 Completed [facility] TDAP 2019-08-29 00:00:00 Completed [facility] TDAP 2019-08-29 00:00:00 Completed [facility] TDAP 2019-08-29 00:00:00 Completed [facility] TDAP 2019-08-29 00:00:00 Completed [facility] TDAP 2019-08-29 00:00:00 Completed [facility] TDAP 2019-08-29 00:00:00 Completed [facility] TDAP 2019-08-29 00:00:00 Completed [facility] TDAP 2019-08-29 00:00:00 Completed [facility] TDAP 2019-08-29 00:00:00 Completed [facility] TDAP 2019-08-29 00:00:00 Completed [facility] TDAP 2019-08-29 00:00:00 Completed [facility] TDAP 2019-08-29 00:00:00 Completed [facility] TDAP 2019-08-29 00:00:00 Completed [facility] TDAP 2019-08-29 00:00:00 Completed [facility] TDAP 2019-08-29 00:00:00 Completed [facility] TDAP 2019-08-29 00:00:00 Completed [facility] TDAP 2019-08-29 00:00:00 Completed [facility] TDAP 2019-08-29 00:00:00 Completed [facility] TDAP 2019-08-29 00:00:00 Completed [facility] TDAP 2019-08-29 00:00:00 Completed [facility] TDAP 2019-08-29 00:00:00 Completed [facility] TDAP 2019-08-29 00:00:00 Completed TDAP 2019-08-29 00:00:00 Completed Influenza Virus Vaccine Quad .5 mL IM 6+ MO 2019-08-02 00:00:00 Completed [facility] Influenza Virus Vaccine Quad .5 mL IM 6+ MO 2019-08-02 00:00:00 Completed [facility] Influenza Virus Vaccine Quad .5 mL IM 6+ MO 2019-08-02 00:00:00 Completed [facility] Influenza Virus Vaccine Quad .5 mL IM 6+ MO 2019-08-02 00:00:00 Completed [facility] Influenza Virus Vaccine Quad .5 mL IM 6+ MO 2019-08-02 00:00:00 Completed [facility] Influenza Virus Vaccine Quad .5 mL IM 6+ MO 2019-08-02 00:00:00 Completed [facility] Influenza Virus Vaccine Quad .5 mL IM 6+ MO 2019-08-02 00:00:00 Completed [facility] Influenza Virus Vaccine Quad .5 mL IM 6+ MO 2019-08-02 00:00:00 Completed [facility] Influenza Virus Vaccine Quad .5 mL IM 6+ MO 2019-08-02 00:00:00 Completed [facility] Influenza Virus Vaccine Quad .5 mL IM 6+ MO 2019-08-02 00:00:00 Completed [facility] Influenza Virus Vaccine Quad .5 mL IM 6+ MO 2019-08-02 00:00:00 Completed [facility] Influenza Virus Vaccine Quad .5 mL IM 6+ MO 2019-08-02 00:00:00 Completed [facility] Influenza Virus Vaccine Quad .5 mL IM 6+ MO 2019-08-02 00:00:00 Completed [facility] Influenza Virus Vaccine Quad .5 mL IM 6+ MO 2019-08-02 00:00:00 Completed [facility] Influenza Virus Vaccine Quad .5 mL IM 6+ MO 2019-08-02 00:00:00 Completed [facility] Influenza Virus Vaccine Quad .5 mL IM 6+ MO 2019-08-02 00:00:00 Completed [facility] Influenza Virus Vaccine Quad .5 mL IM 6+ MO 2019-08-02 00:00:00 Completed [facility] Influenza Virus Vaccine Quad .5 mL IM 6+ MO 2019-08-02 00:00:00 Completed [facility] Influenza Virus Vaccine Quad .5 mL IM 6+ MO 2019-08-02 00:00:00 Completed [facility] Influenza Virus Vaccine Quad .5 mL IM 6+ MO 2019-08-02 00:00:00 Completed [facility] Influenza Virus Vaccine Quad .5 mL IM 6+ MO 2019-08-02 00:00:00 Completed [facility] Influenza Virus Vaccine Quad .5 mL IM 6+ MO 2019-08-02 00:00:00 Completed [facility] Influenza Virus Vaccine Quad .5 mL IM 6+ MO 2019-08-02 00:00:00 Completed [facility] Influenza Virus Vaccine Quad .5 mL IM 6+ MO 2019-08-02 00:00:00 Completed [facility] [place] Influenza Virus Vaccine Quad .5 mL IM 6+ MO 2019-08-02 00:00:00 Completed [facility] [place] Influenza Virus Vaccine Quad .5 mL IM 6+ MO 2019-08-02 00:00:00 Completed [facility] [place] Influenza Virus Vaccine Quad .5 mL IM 6+ MO 2019-08-02 00:00:00 Completed [facility] [place] Influenza Virus Vaccine Quad .5 mL IM 6+ MO 2019-08-02 00:00:00 Completed [facility] [place] Influenza Virus Vaccine Quad .5 mL IM 6+ MO 2019-08-02 00:00:00 Completed [facility] [place] Influenza Virus Vaccine Quad .5 mL IM 6+ MO 2019-08-02 00:00:00 Completed [facility] [place] Influenza Virus Vaccine Quad .5 mL IM 6+ MO 2019-08-02 00:00:00 Completed [facility] [place] Influenza Virus Vaccine Quad .5 mL IM 6+ MO 2019-08-02 00:00:00 Completed [facility] [place] Influenza Virus Vaccine Quad .5 mL IM 6+ MO 2019-08-02 00:00:00 Completed [facility] [place] Influenza Virus Vaccine Quad .5 mL IM 6+ MO 2019-08-02 00:00:00 Completed [facility] [place] Influenza Virus Vaccine Quad .5 mL IM 6+ MO 2019-08-02 00:00:00 Completed [facility] [place] Influenza Virus Vaccine Quad .5 mL IM 6+ MO 2019-08-02 00:00:00 Completed [facility] [place] Influenza Virus Vaccine Quad .5 mL IM 6+ MO 2019-08-02 00:00:00 Completed [facility] [place] Influenza Virus Vaccine Quad .5 mL IM 6+ MO 2019-08-02 00:00:00 Completed [facility] [place] Influenza Virus Vaccine Quad .5 mL IM 6+ MO 2019-08-02 00:00:00 Completed [facility] [place] Influenza Virus Vaccine Quad .5 mL IM 6+ MO 2019-08-02 00:00:00 Completed [facility] [place] Influenza Virus Vaccine Quad .5 mL IM 6+ MO 2019-08-02 00:00:00 Completed [facility] [place] Influenza Virus Vaccine Quad .5 mL IM 6+ MO 2019-08-02 00:00:00 Completed [facility] [place] Influenza Virus Vaccine Quad .5 mL IM 6+ MO 2019-08-02 00:00:00 Completed [facility] [place] Influenza Virus Vaccine Quad .5 mL IM 6+ MO 2019-08-02 00:00:00 Completed [facility] [place] Influenza Virus Vaccine Quad .5 mL IM 6+ MO 2019-08-02 00:00:00 Completed [facility] [place] Influenza Virus Vaccine Quad .5 mL IM 6+ MO 2019-08-02 00:00:00 Completed [facility] [place] Influenza Virus Vaccine Quad .5 mL IM 6+ MO 2019-08-02 00:00:00 Completed [facility] [place] Influenza Virus Vaccine Quad .5 mL IM 6+ MO 2019-08-02 00:00:00 Completed [facility] [place] Influenza Virus Vaccine Quad .5 mL IM 6+ MO 2019-08-02 00:00:00 Completed [facility] [place] Influenza Virus Vaccine Quad .5 mL IM 6+ MO 2019-08-02 00:00:00 Completed [facility] [place] Influenza Virus Vaccine Quad .5 mL IM 6+ MO 2019-08-02 00:00:00 Completed [facility] [place] Influenza Virus Vaccine Quad .5 mL IM 6+ MO 2019-08-02 00:00:00 Completed [facility] [place] Influenza Virus Vaccine Quad .5 mL IM 6+ MO 2019-08-02 00:00:00 Completed [facility] [place] Influenza Virus Vaccine Quad .5 mL IM 6+ MO 2019-08-02 00:00:00 Completed [facility] [place] Influenza Virus Vaccine Quad .5 mL IM 6+ MO 2019-08-02 00:00:00 Completed [facility] [place] Influenza Virus Vaccine Quad .5 mL IM 6+ MO (FLUZONE/FLULAVAL/F LUARIX) 2019-08-02 00:00:00 Completed [facility] [place] Influenza Virus Vaccine Quad .5 mL IM 6+ MO (FLUZONE/FLULAVAL/F LUARIX) 2019-08-02 00:00:00 Completed [facility] Afluria single dose Afluria single dose 2019-07-29 13:16:00 Completed [facility] Afluria single dose Afluria single dose 2019-07-29 13:16:00 Completed [facility] Afluria single dose Afluria single dose Unknown Completed [facility] Adacel (Tdap) Adacel (Tdap) Unknown Completed [facility] Influenza Virus Vaccine Quad .5 mL IM 6+ MO (FLUZONE/FLULAVAL/F LUARIX) Unknown Completed [facility] [place] TDAP (ADACEL) VACCINE Unknown Completed [facility] SARS-COV-2 COVID-19 OTIS/J&J VACCINE Unknown Completed [facility] Influenza Virus Vaccine Quad IM, Preserv and ABX Free 6 MO-64 YRS (FLUCELVAX) Unknown Completed [facility] [place] Influenza Virus Vaccine Unknown Completed [facility] [place] Influenza Virus Vaccine Quad .5 mL IM 6+ MO (FLUZONE/FLULAVAL/F LUARIX) Unknown Completed [facility] [place] TDAP (ADACEL) VACCINE Unknown Completed [facility] [place] SARS-COV-2 COVID-19 OTIS/J&J VACCINE Unknown Completed [facility] Influenza Virus Vaccine Unknown Completed [facility] [place] Influenza Virus Vaccine Quad .5 mL IM 6+ MO (FLUZONE/FLULAVAL/F LUARIX) Unknown Completed [facility] [place] TDAP (ADACEL) VACCINE Unknown Completed [facility] [place] SARS-COV-2 COVID-19 OTIS/J&J VACCINE Unknown Completed [facility] Influenza Virus Vaccine Unknown Completed [facility] [place] Influenza Virus Vaccine Quad .5 mL IM 6+ MO (FLUZONE/FLULAVAL/F LUARIX) Unknown Completed [facility] [place] TDAP (ADACEL) VACCINE Unknown Completed [facility] [place] SARS-COV-2 COVID-19 OTIS/J&J VACCINE Unknown Completed [facility] Influenza Virus Vaccine Unknown Completed [facility] [place] Influenza Virus Vaccine Quad .5 mL IM 6+ MO (FLUZONE/FLULAVAL/F LUARIX) Unknown Completed [facility] [place] TDAP (ADACEL) VACCINE Unknown Completed [facility] [place] SARS-COV-2 COVID-19 OTIS/J&J VACCINE Unknown Completed [facility] Influenza Virus Vaccine Unknown Completed [facility] [place] Influenza Virus Vaccine Quad .5 mL IM 6+ MO (FLUZONE/FLULAVAL/F LUARIX) Unknown Completed [facility] [place] TDAP (ADACEL) VACCINE Unknown Completed [facility] [place] SARS-COV-2 COVID-19 OTIS/J&J VACCINE Unknown Completed [facility] Influenza Virus Vaccine Unknown Completed [facility] [place] Influenza Virus Vaccine Quad .5 mL IM 6+ MO (FLUZONE/FLULAVAL/F LUARIX) Unknown Completed [facility] [place] TDAP (ADACEL) VACCINE Unknown Completed [facility] [place] SARS-COV-2 COVID-19 OTIS/J&J VACCINE Unknown Completed [facility] Influenza Virus Vaccine Unknown Completed [facility] [place] Influenza Virus Vaccine Quad .5 mL IM 6+ MO (FLUZONE/FLULAVAL/F LUARIX) Unknown Completed [facility] [place] TDAP (ADACEL) VACCINE Unknown Completed [facility] [place] SARS-COV-2 COVID-19 OTIS/J&J VACCINE Unknown Completed [facility] Influenza Virus Vaccine Unknown Completed [facility] [place] Influenza Virus Vaccine Quad .5 mL IM 6+ MO (FLUZONE/FLULAVAL/F LUARIX) Unknown Completed [facility] [place] TDAP (ADACEL) VACCINE Unknown Completed [facility] [place] SARS-COV-2 COVID-19 OTIS/J&J VACCINE Unknown Completed [facility] Influenza Virus Vaccine Unknown Completed [facility] [place] Influenza Virus Vaccine Quad .5 mL IM 6+ MO (FLUZONE/FLULAVAL/F LUARIX) Unknown Completed [facility] [place] TDAP (ADACEL) VACCINE Unknown Completed [facility] [place] SARS-COV-2 COVID-19 OTIS/J&J VACCINE Unknown Completed [facility] Influenza Virus Vaccine Quad .5 mL IM 6+ MO (FLUZONE/FLULAVAL/F LUARIX) Unknown Completed [facility] [place] TDAP (ADACEL) VACCINE Unknown Completed [facility] [place] SARS-COV-2 COVID-19 OTIS/J&J VACCINE Unknown Completed [facility] Influenza Virus Vaccine Quad .5 mL IM 6+ MO (FLUZONE/FLULAVAL/F LUARIX) Unknown Completed [facility] [place] TDAP (ADACEL) VACCINE Unknown Completed [facility] [place] Influenza Virus Vaccine Quad .5 mL IM 6+ MO (FLUZONE/FLULAVAL/F LUARIX) Unknown Completed [facility] [place] TDAP (ADACEL) VACCINE Unknown Completed [facility] [place] Influenza Virus Vaccine Quad .5 mL IM 6+ MO (FLUZONE/FLULAVAL/F LUARIX) Unknown Completed [facility] [place] TDAP (ADACEL) VACCINE Unknown Completed [facility] [place] Influenza Virus Vaccine Quad .5 mL IM 6+ MO (FLUZONE/FLULAVAL/F LUARIX) Unknown Completed [facility] [place] TDAP (ADACEL) VACCINE Unknown Completed [facility] [place] Influenza Virus Vaccine Quad .5 mL IM 6+ MO (FLUZONE/FLULAVAL/F LUARIX) Unknown Completed [facility] [place] TDAP (ADACEL) VACCINE Unknown Completed [facility] [place] Influenza Virus Vaccine Quad .5 mL IM 6+ MO (FLUZONE/FLULAVAL/F LUARIX) Unknown Completed [facility] [place] TDAP (ADACEL) VACCINE Unknown Completed [facility] [place] Influenza Virus Vaccine Quad .5 mL IM 6+ MO (FLUZONE/FLULAVAL/F LUARIX) Unknown Completed [facility] [place] TDAP (ADACEL) VACCINE Unknown Completed [facility] [place] Influenza Virus Vaccine Quad .5 mL IM 6+ MO (FLUZONE/FLULAVAL/F LUARIX) Unknown Completed [facility] [place] TDAP (ADACEL) VACCINE Unknown Completed [facility] [place] Influenza Virus Vaccine Quad .5 mL IM 6+ MO (FLUZONE/FLULAVAL/F LUARIX) Unknown Completed [facility] [place] TDAP (ADACEL) VACCINE Unknown Completed [facility] [place] Influenza Virus Vaccine Quad .5 mL IM 6+ MO (FLUZONE/FLULAVAL/F LUARIX) Unknown Completed [facility] [place] TDAP (ADACEL) VACCINE Unknown Completed [facility] [place] SARS-COV-2 COVID-19 OTIS/J&J VACCINE Unknown Completed [facility] Influenza Virus Vaccine Quad IM, Preserv and ABX Free 6 MO-64 YRS (FLUCELVAX) Unknown Completed [facility] Influenza Virus Vaccine Unknown Completed [facility] Influenza Virus Vaccine Quad .5 mL IM 6+ MO (FLUZONE/FLULAVAL/F LUARIX) Unknown Completed [facility] [place] TDAP (ADACEL) VACCINE Unknown Completed [facility] SARS-COV-2 COVID-19 OTIS/J&J VACCINE Unknown Completed [facility] Influenza Virus Vaccine Quad IM, Preserv and ABX Free 6 MO-64 YRS (FLUCELVAX) Unknown Completed [facility] [place] Influenza Virus Vaccine Unknown Completed [facility] Influenza Virus Vaccine Quad .5 mL IM 6+ MO (FLUZONE/FLULAVAL/F LUARIX) Unknown Completed [facility] [place] TDAP (ADACEL) VACCINE Unknown Completed [facility] SARS-COV-2 COVID-19 OTIS/J&J VACCINE Unknown Completed [facility] Influenza Virus Vaccine Quad IM, Preserv and ABX Free 6 MO-64 YRS (FLUCELVAX) Unknown Completed [facility] [place] Influenza Virus Vaccine Unknown Completed [facility] [place] Influenza Virus Vaccine Quad .5 mL IM 6+ MO (FLUZONE/FLULAVAL/F LUARIX) Unknown Completed [facility] [place] TDAP (ADACEL) VACCINE Unknown Completed [facility] SARS-COV-2 COVID-19 OTIS/J&J VACCINE Unknown Completed [facility] Influenza Virus Vaccine Quad IM, Preserv and ABX Free 6 MO-64 YRS (FLUCELVAX) Unknown Completed [facility] [place] Influenza Virus Vaccine Unknown Completed [facility] [place] Influenza Virus Vaccine Quad .5 mL IM 6+ MO (FLUZONE/FLULAVAL/F LUARIX) Unknown Completed [facility] [place] TDAP (ADACEL) VACCINE Unknown Completed [facility] [place] SARS-COV-2 COVID-19 OTIS/J&J VACCINE Unknown Completed [facility] Influenza Virus Vaccine Quad IM, Preserv and ABX Free 6 MO-64 YRS (FLUCELVAX) Unknown Completed [facility] [place] Influenza Virus Vaccine Unknown Completed [facility] [place] Influenza Virus Vaccine Quad .5 mL IM 6+ MO (FLUZONE/FLULAVAL/F LUARIX) Unknown Completed [facility] [place] TDAP (ADACEL) VACCINE Unknown Completed [facility] SARS-COV-2 COVID-19 OTIS/J&J VACCINE Unknown Completed [facility] Influenza Virus Vaccine Quad IM, Preserv and ABX Free 6 MO-64 YRS (FLUCELVAX) Unknown Completed [facility] [place] Influenza Virus Vaccine Unknown Completed [facility] [place] Influenza Virus Vaccine Quad .5 mL IM 6+ MO (FLUZONE/FLULAVAL/F LUARIX) Unknown Completed [facility] [place] TDAP (ADACEL) VACCINE Unknown Completed [facility] [place] SARS-COV-2 COVID-19 OTIS/J&J VACCINE Unknown Completed [facility] Influenza Virus Vaccine Quad IM, Preserv and ABX Free 6 MO-64 YRS (FLUCELVAX) Unknown Completed [facility] [place] Influenza Virus Vaccine Unknown Completed [facility] [place] Influenza Virus Vaccine Quad .5 mL IM 6+ MO (FLUZONE/FLULAVAL/F LUARIX) Unknown Completed [facility] TDAP Unknown Completed [facility] SARS-COV-2 COVID-19 OTIS/J&J VACCINE Unknown Completed [facility] Influenza Virus Vaccine Quad IM, Preserv and ABX Free 6 MO-64 YRS (FLUCELVAX) Unknown Completed [facility] [place] Influenza Virus Vaccine Unknown Completed [facility] [place] Influenza Virus Vaccine Quad .5 mL IM 6+ MO (FLUZONE/FLULAVAL/F LUARIX) Unknown Completed [facility] TDAP Unknown Completed [facility] SARS-COV-2 COVID-19 OTIS/J&J VACCINE Unknown Completed [facility] Influenza Virus Vaccine Quad IM, Preserv and ABX Free 6 MO-64 YRS (FLUCELVAX) Unknown Completed [facility] [place] Influenza Virus Vaccine Unknown Completed [facility] Influenza Virus Vaccine Quad .5 mL IM 6+ MO (FLUZONE/FLULAVAL/F LUARIX) Unknown Completed [facility] TDAP Unknown Completed [facility] SARS-COV-2 COVID-19 OTIS/J&J VACCINE Unknown Completed [facility] Influenza Virus Vaccine Quad IM, Preserv and ABX Free 6 MO-64 YRS (FLUCELVAX) Unknown Completed [facility] Influenza Virus Vaccine Unknown Completed [facility] Influenza, Injectable, Mdck, Quadrivalent With Preservative Unknown Completed Anat Mesa - External Influenza, Injectable, Mdck, Preservative Free, Quadrivalent Unknown Completed Anat Gonzáles External Influenza Virus Vaccine, No Preserv, age 6 months and up Unknown Completed [facility]at [facility] - External Covid-19 Vaccine (Otis) Unknown Completed Anat Mesa - External Tdap- (Boostrix, Adacel) Unknown Completed Anat [facility] - External Influenza, Injectable, Mdck, Quadrivalent With Preservative Unknown Completed Anat Mesa - External Influenza, Injectable, Mdck, Preservative Free, [...] External Tdap- (Boostrix, Adacel) Unknown Completed Anat ybold - External Vital Signs Vital Name Observation Time Observation Value Comments S ource Systolic blood pressure 2025-05-14 20:00:00 107 [facility] Di[facility] 2025-05-14 20:00:00 79 mm[Hg[facility] Heart rate 2025-05-14 20:00:00 86 /min [facility] Body temperature 2025-05-14 20:00:00 36.89 Silvina [facility] Respiratory rate 2025-05-14 20:00:00 16 /min [facility] Oxygen saturation in Arterial blood by Pulse oximetry 2025-05-14 20:00:00 98 /min [facility] Body height 2025-05-14 17:44:00 165.1 cm [facility] Body weight 2025-05-14 17:44:00 127.461 kg [facility] BMI 2025-05-14 17:44:00 46.76 kg/m2 [facility] Systolic blood pressure 2025-04-26 20:20:00 108 mm[Hg] Anat Maciasybo ld - External Diastolic blood pressure 2025-04-26 20:20:00 76 mm[Hg] Anat Maciasybo ld - External Heart rate 2025-04-26 20:20:00 88 /min Kel y Seybold - External Body temperature 2025-04-26 20:20:00 36.94 Silvina Anat Seybold - External Respiratory rate 2025-04-26 20:20:00 18 /min Anat Maciasybold - External Body height 2025-04-26 20:20:00 165.1 cm Brea ey Seybold - External Body weight 2025-04-26 20:20:00 130.863 kg Brea ey Seybold - External BMI 2025-04-26 20:20:00 48.01 kg/m2 Brea ey Seybold - External Oxygen saturation in Arterial blood by Pulse oximetry 2025-04-26 20:20:00 99 /min Anat Maciasybo ld - External Systolic blood pressure 2025-04-08 01:35:00 114 mm[Hg] [facility] Diastolic blood pressure 2025-04-08 01:35:00 78 mm[Hg] [facility] Heart rate 2025-04-08 01:35:00 87 /[facility] 2025-04-08 01:35:00 36.56 Silvina [facility] [place] Respiratory rate 2025-04-08 01:35:00 20 /min [facility] Body height 2025-04-08 01:35:00 165.1 cm [facility] Body weight 2025-04-08 01:35:00 127.733 kg [facility] BMI 2025-04-08 01:35:00 46.86 kg/m2 [facility] Oxygen saturation in Arterial blood by Pulse oximetry 2025-04-08 01:35:00 99 /min [facility] Systolic blood pressure 2025-03-20 15:46:00 112 mm[Hg] Anat Maciasybo ld - External Diastolic blood pressure 2025-03-20 15:46:00 76 mm[Hg] Anat Maciasybo ld - External Heart rate 2025-03-20 15:46:00 68 /min Kannanse y Seybold - External Respiratory rate 2025-03-20 15:46:00 18 /min nAat Maciasybold - External Body height 2025-03-20 15:46:00 165.1 cm Brea ey Seybold - External Body weight 2025-03-20 15:46:00 131.09 kg Brea ey Seybold - External BMI 2025-03-20 15:46:00 48.09 kg/m2 Brea ey Seybold - External Systolic blood pressure 2025-02-14 18:33:00 112 mm[Hg] Anat Maciasybo ld - External Diastolic blood pressure 2025-02-14 18:33:00 72 mm[Hg] Anat Maciasybo ld - External Heart rate 2025-02-14 18:33:00 89 /min Collins gaona Seybold - External Body temperature 2025-02-14 18:33:00 37.06 Silvina Anat Seybold - External Respiratory rate 2025-02-14 18:33:00 15 /min Anat Maciasybold - External Body height 2025-02-14 18:33:00 165.1 cm Brea ey Seybold - External Body weight 2025-02-14 18:33:00 129.729 kg Brea ey Seybold - External BMI 2025-02-14 18:33:00 47.59 kg/m2 Brea ey Seybold - External Oxygen saturation in Arterial blood by Pulse oximetry 2025-02-14 18:33:00 99 /min Anat Maciasybo ld - External Systolic blood pressure 2025-01-25 02:31:00 132 mm[Hg] [facility] Diastolic blood pressure 2025-01-25 02:31:00 79 mm[Hg] [facility] Heart rate 2025-01-25 02:31:00 79 /[facility] 2025-01-25 02:31:00 36.72 Silvina [facility] Respiratory rate 2025-01-25 02:31:00 16 /min [facility] Oxygen saturation in Arterial blood by Pulse oximetry 2025-01-25 02:31:00 100 /min [facility] Body height 2025-01-25 00:16:00 165.1 cm [facility] Body weight 2025-01-25 00:16:00 131.09 kg [facility] BMI 2025-01-25 00:16:00 48.09 kg/m2 [facility] Systolic blood pressure 2025-01-15 16:29:00 123 mm[Hg] [...] blood pressure 2024-12-07 16:38:00 76 mm[Hg] Anat Maciasybo ld - External Heart rate 2024-12-07 16:38:00 79 /min Kelse y Seybold - External Body height 2024-12-07 16:38:00 165.1 cm Brea ey Seybold - External Body weight 2024-12-07 16:38:00 127.642 kg Brea ey Seybold - External BMI 2024-12-07 16:38:00 46.83 kg/m2 Brae ey Seybold - External Systolic blood pressure 2024-11-26 22:04:00 110 mm[Hg] Anat Maciasybo ld - External Diastolic blood pressure 2024-11-26 22:04:00 76 mm[Hg] Anat Maciasybo ld - External Heart rate 2024-11-26 22:04:00 109 /min Kannanse y Seybold - External Body temperature 2024-11-26 22:04:00 36.5 Silvina Anat Seybold - External Respiratory rate 2024-11-26 22:04:00 15 /min Anat Maciasybold - External Body height 2024-11-26 22:04:00 165.1 cm Brea ey Seybold - External Body weight 2024-11-26 22:04:00 127.007 kg Brea ey Seybold - External BMI 2024-11-26 22:04:00 46.59 kg/m2 Brea ey Seybold - External Oxygen saturation in Arterial blood by Pulse oximetry 2024-11-26 22:04:00 98 /min Anat Salcedoo ld - External Systolic blood pressure 2024-10-25 19:03:06 118 mm[Hg] [facility] Diastolic blood pressure 2024-10-25 19:03:06 75 mm[Hg] [facility] Heart rate 2024-10-25 19:03:06 82 /min Unive [facility] Body temperature 2024-10-25 19:03:06 37.06 Silvina [facility] Respiratory rate 2024-10-25 19:03:06 19 /min [facility] Oxygen saturation in Arterial blood by Pulse oximetry 2024-10-25 19:03:06 99 /min [facility] Body height 2024-10-25 17:05:00 165.1 cm [facility] Body weight 2024-10-25 17:05:00 120.203 kg [facility] BMI 2024-10-25 17:05:00 44.10 kg/m2 [facility] Systolic blood pressure 2024-08-30 18:42:00 102 mm[Hg] [...] External BMI 2024-07-10 15:11:00 44.10 kg/m2 Brea Mesa - External Systolic blood pressure 2024-07-10 00:58:00 109 mm[Hg] [facility] Diastolic blood pressure 2024-07-10 00:58:00 68 mm[Hg] [facility] Heart rate 2024-07-10 00:58:00 98 /min Unive [facility] Body temperature 2024-07-10 00:58:00 37.11 Silvina [facility] Respiratory rate 2024-07-10 00:58:00 15 /min [facility] Body height 2024-07-10 00:58:00 165.1 cm [facility] Body weight 2024-07-10 00:58:00 118.525 kg [facility] BMI 2024-07-10 00:58:00 43.48 kg/m2 [facility] Oxygen saturation in Arterial blood by Pulse oximetry 2024-07-10 00:58:00 98 /[facility] Systolic blood pressure 2024-07-04 02:19:00 115 mm[Hg] [facility] Diastolic blood pressure 2024-07-04 02:19:00 72 mm[Hg] [facility] Heart rate 2024-07-04 02:19:00 73 /[facility] Body temperature 2024-07-04 02:19:00 36.89 Silvina [facility] Respiratory rate 2024-07-04 02:19:00 19 /min [facility] Oxygen saturation in Arterial blood by Pulse oximetry 2024-07-04 02:19:00 97 /min [facility] Body height 2024-07-03 22:28:00 165.1 cm [facility] Body weight 2024-07-03 22:28:00 111.131 kg [facility] BMI 2024-07-03 22:28:00 40.77 kg/m2 [facility] Systolic blood pressure 2024-06-29 01:25:00 113 mm[Hg] [facility] Diastolic blood pressure 2024-06-29 01:25:00 77 mm[Hg] [facility] Heart rate 2024-06-29 01:25:00 86 /min [facility] Body temperature 2024-06-29 01:25:00 36.89 Silvina [facility] Respiratory rate 2024-06-29 01:25:00 18 /min [facility] Body weight 2024-06-29 01:25:00 120.203 kg [facility] BMI 2024-06-29 01:25:00 44.10 kg/m2 [facility] Oxygen saturation in Arterial blood by Pulse oximetry 2024-06-29 01:25:00 100 /min [facility] Systolic blood pressure 2024-06-27 14:40:00 102 mm[Hg] Anat Seybo ld - External Diastolic blood pressure 2024-06-27 14:40:00 60 mm[Hg] Anat Maciasybo ld - External Heart rate 2024-06-27 14:40:00 97 /min Kelse y Seybold - External Body temperature 2024-06-27 14:40:00 36.44 Silvina Anat Seybold - External Respiratory rate 2024-06-27 14:40:00 15 /min Anat Maciasybold - External Body height 2024-06-27 14:40:00 165.1 cm Brea ey Seybold - External Body weight 2024-06-27 14:40:00 120.203 kg Brea ey Seybold - External BMI 2024-06-27 14:40:00 44.10 kg/m2 Brea ey Seybold - External Systolic blood pressure 2024-06-26 01:19:00 126 mm[Hg[facility] Di[facility] blood pressure 2024-06-26 01:19:00 62 mm[Hg] [facility] Heart rate 2024-06-26 01:19:00 98 /min [facility] Body temperature 2024-06-26 01:19:00 37.5 Silvina [facility] Respiratory rate 2024-06-26 01:19:00 22 /min [facility] Body height 2024-06-26 01:19:00 165.1 cm [facility] Body weight 2024-06-26 01:19:00 119.75 kg [facility] BMI 2024-06-26 01:19:00 43.93 kg/m2 [facility] Oxygen saturation in Arterial blood by Pulse oximetry 2024-06-26 01:19:00 100 /min [facility] Systolic blood pressure 2024-06-06 19:54:00 104 [...] Systolic blood pressure 2024-05-13 07:13:00 118 mm[Hg] [facility] Diastolic blood pressure 2024-05-13 07:13:00 86 mm[Hg] [facility] Heart rate 2024-05-13 07:13:00 83 /min Un[facility] Body temperature 2024-05-13 07:13:00 36.72 Silvina [facility] Respiratory rate 2024-05-13 07:13:00 18 /min [facility] Oxygen saturation in Arterial blood by Pulse oximetry 2024-05-13 07:13:00 100 /min [facility] Body height 2024-05-13 05:03:00 165.1 cm [facility] Body weight 2024-05-13 05:03:00 114.76 kg [facility] BMI 2024-05-13 05:03:00 42.10 kg/m2 [facility] Systolic blood pressure 2023-12-01 06:06:00 128 mm[Hg] [facility] Diastolic blood pressure 2023-12-01 06:06:00 84 mm[Hg] [facility] Heart rate 2023-12-01 06:06:00 88 /min [facility] Body temperature 2023-12-01 06:06:00 36.89 Silvina [facility] Respiratory rate 2023-12-01 06:06:00 16 /min [facility] Oxygen saturation in Arterial blood by Pulse oximetry 2023-12-01 06:06:00 100 /min [facility] Body height 2023-12-01 03:03:00 165.1 cm [facility] Body weight 2023-12-01 03:03:00 114.76 kg [facility] BMI 2023-12-01 03:03:00 42.10 kg/m2 [facility] Systolic blood pressure 2023-10-14 05:45:00 128 mm[Hg] [facility] Diastolic blood pressure 2023-10-14 05:45:00 72 mm[Hg] [facility] Heart rate 2023-10-14 05:45:00 77 /min [facility] Body temperature 2023-10-14 05:45:00 36.89 Silvina [facility] Respiratory rate 2023-10-14 05:45:00 16 /min [facility] Oxygen saturation in Arterial blood by Pulse oximetry 2023-10-14 05:45:00 100 /min [facility] Body height 2023-10-14 03:39:00 165.1 cm [facility] Body weight 2023-10-14 03:39:00 114.76 kg [facility] BMI 2023-10-14 03:39:00 42.10 kg/m2 [facility] Systolic blood pressure 2023-09-28 01:41:00 129 mm[Hg] [facility] Diastolic blood pressure 2023-09-28 01:41:00 82 mm[Hg] [facility] Heart rate 2023-09-28 01:41:00 76 /min [facility] Body temperature 2023-09-28 01:41:00 37.39 Silvina [facility] Respiratory rate 2023-09-28 01:41:00 17 /min [facility] Body weight 2023-09-28 01:41:00 114.76 kg [facility] BMI 2023-09-28 01:41:00 49.41 kg/m2 [facility] Oxygen saturation in Arterial blood by Pulse oximetry 2023-09-28 01:41:00 99 /min [facility] Systolic blood pressure 2023-09-04 06:00:00 124 mm[Hg] [facility] Diastolic blood pressure 2023-09-04 06:00:00 71 mm[Hg] [facility] Heart rate 2023-09-04 06:00:00 96 /min [facility] Respiratory rate 2023-09-04 06:00:00 20 /min [facility] Oxygen saturation in Arterial blood by Pulse oximetry 2023-09-04 06:00:00 96 /min [facility] Body temperature 2023-09-04 03:04:00 37.22 Silvina [facility] Body height 2023-09-04 03:04:00 152.4 cm [facility] Body weight 2023-09-04 03:04:00 108.863 kg [facility] BMI 2023-09-04 03:04:00 46.87 kg/m2 [facility] Systolic blood pressure 2023-08-29 18:00:42 118 mm[Hg] [facility] Diastolic blood pressure 2023-08-29 18:00:42 76 mm[Hg] [facility] Heart rate 2023-08-29 18:00:42 101 /min [facility] Body temperature 2023-08-29 18:00:42 36.78 Silvina [facility] Oxygen saturation in Arterial blood by Pulse oximetry 2023-08-29 18:00:42 96 /min [facility] Respiratory rate 2023-08-29 16:20:00 18 /min [facility] Body height 2023-08-29 16:20:00 165.1 cm [facility] Body weight 2023-08-29 16:20:00 108.863 kg [facility] BMI 2023-08-29 16:20:00 39.94 kg/m2 [facility] Systolic blood pressure 2023-02-14 01:09:00 110 mm[Hg] [facility] Diastolic blood pressure 2023-02-14 01:09:00 76 mm[Hg] [facility] Heart rate 2023-02-14 01:09:00 107 /min [facility] Body temperature 2023-02-14 01:09:00 37.11 Silvina [facility] Respiratory rate 2023-02-14 01:09:00 14 /min [facility] Body height 2023-02-14 01:09:00 165.1 cm [facility] Body weight 2023-02-14 01:09:00 108.954 kg [facility] BMI 2023-02-14 01:09:00 39.97 kg/m2 [facility] Oxygen saturation in Arterial blood by Pulse oximetry 2023-02-14 01:09:00 98 /min [facility] Systolic blood pressure 2022-11-05 16:30:00 104 mm[Hg] [facility] Diastolic blood pressure 2022-11-05 16:30:00 74 mm[Hg] [facility] Heart rate 2022-11-05 16:30:00 69 /min [facility] Body temperature 2022-11-05 16:30:00 36.89 Silvina [facility] Respiratory rate 2022-11-05 16:30:00 18 /min [facility] Body height 2022-11-05 16:30:00 [facility] 2022-11-05 16:30:00 108.863 kg [facility] BMI 2022-11-05 16:30:00 39.94 kg/m2 [facility] Systolic blood pressure 2022-10-21 16:40:00 113 mm[Hg[facility] Diastolic blood pressure 2022-10-21 16:40:00 77 mm[Hg] [facility] Heart rate 2022-10-21 16:40:00 94 /min [facility] Body temperature 2022-10-21 16:40:00 36.78 Silvina [facility] Respiratory rate 2022-10-21 16:40:00 18 /min [facility] Body height 2022-10-21 16:40:00 165.1 cm [facility] Body weight 2022-10-21 16:40:00 108.863 kg [facility] BMI 2022-10-21 16:40:00 39.94 kg/m2 [facility] Systolic blood pressure 2022-10-13 15:09:00 107 mm[Hg] [facility] Diastolic blood pressure 2022-10-13 15:09:00 76 mm[Hg] [facility] Heart rate 2022-10-13 15:09:00 56 /min [facility] Body temperature 2022-10-13 15:09:00 36.83 Silvina [facility] Respiratory rate 2022-10-13 15:09:00 18 /min [facility] Body weight 2022-10-13 15:09:00 109.317 kg [facility] BMI 2022-10-13 15:09:00 40.10 kg/m2 [facility] Systolic blood pressure 2022-09-28 13:13:00 114 mm[Hg[facility] Diastolic blood pressure 2022-09-28 13:13:00 73 mm[Hg] [facility] Heart rate 2022-09-28 13:13:00 78 /min [facility] Body temperature 2022-09-28 13:13:00 36.22 Silvina [facility] Respiratory rate 2022-09-28 13:13:00 16 /min [facility] Oxygen saturation in Arterial blood by Pulse oximetry 2022-09-28 13:13:00 100 /min [facility] Systolic blood pressure 2022-09-24 15:16:00 110 mm[Hg] [facility] Diastolic blood pressure 2022-09-24 15:16:00 76 mm[Hg] [facility] Heart rate 2022-09-24 15:16:00 94 /min [facility] Body temperature 2022-09-24 15:16:00 36.72 Silvina [facility] Body height 2022-09-24 15:16:00 165.1 cm [facility] Body weight 2022-09-24 15:16:00 117.981 kg [facility] BMI 2022-09-24 15:16:00 43.28 kg/m2 [facility] Heart rate 2022-09-20 21:45:00 80 /min [facility] Oxygen saturation in Arterial blood by Pulse oximetry 2022-09-20 21:45:00 99 /min [facility] Systolic blood pressure 2022-09-20 21:04:00 108 mm[Hg] [facility] Diastolic blood pressure 2022-09-20 21:04:00 63 mm[Hg] [facility] Body temperature 2022-09-20 21:04:00 37 Silvina [facility] Respiratory rate 2022-09-20 21:04:00 18 /min [facility] Body height 2022-09-20 21:04:00 165.1 cm [facility] Body weight 2022-09-20 21:04:00 118.026 kg [facility] BMI 2022-09-20 21:04:00 43.30 kg/m2 [facility] Systolic blood pressure 2022-09-17 16:11:00 110 mm[Hg] [facility] Diastolic blood pressure 2022-09-17 16:11:00 73 mm[Hg] [facility] Heart rate 2022-09-17 16:11:00 90 /min [facility] Body temperature 2022-09-17 16:11:00 36.78 Silvina [facility] Respiratory rate 2022-09-17 16:11:00 18 /min [facility] Body height 2022-09-17 16:11:00 165.1 cm [facility] Body weight 2022-09-17 16:11:00 117.482 kg [facility] BMI 2022-09-17 16:11:00 43.10 kg/m2 [facility] Heart rate 2022-09-16 17:15:00 94 /min [facility] Oxygen saturation in Arterial blood by Pulse oximetry 2022-09-16 17:15:00 98 /min [facility] Systolic blood pressure 2022-09-16 16:30:00 112 mm[Hg] [facility] Diastolic blood pressure 2022-09-16 16:30:00 57 mm[Hg] [facility] Body temperature 2022-09-16 16:30:00 36.89 Silvina [facility] Body height 2022-09-16 16:30:00 165.1 cm [facility] Body weight 2022-09-16 16:30:00 117.935 kg [facility] BMI 2022-09-16 16:30:00 43.27 kg/m2 [facility] Respiratory rate 2022-09-16 15:41:00 16 /min [facility] Heart rate 2022-09-10 16:30:00 76 /min [facility] Oxygen saturation in Arterial blood by Pulse oximetry 2022-09-10 16:30:00 99 /min [facility] Systolic blood pressure 2022-09-10 14:35:00 114 mm[Hg] [facility] Diastolic blood pressure 2022-09-10 14:35:00 65 mm[Hg] [facility] Body temperature 2022-09-10 14:35:00 36.67 Silvina [facility] Respiratory rate 2022-09-10 14:35:00 18 /min [facility] Body weight 2022-09-10 14:12:00 116.075 kg [facility] BMI 2022-09-10 14:12:00 42.58 kg/m2 [facility] Systolic blood pressure 2022-09-09 16:06:00 117 mm[Hg] [facility] Diastolic blood pressure 2022-09-09 16:06:00 78 mm[Hg] [facility] Heart rate 2022-09-09 16:06:00 93 /min [facility] Body temperature 2022-09-09 16:06:00 37 Silvina [facility] Respiratory rate 2022-09-09 16:06:00 16 /min [facility] Body height 2022-09-09 16:06:00 165.1 cm [facility] Body weight 2022-09-09 16:06:00 115.803 kg [facility] BMI 2022-09-09 16:06:00 42.48 kg/m2 [facility] Oxygen saturation in Arterial blood by Pulse oximetry 2022-09-09 16:06:00 98 /min [facility] Systolic blood pressure 2022-09-08 03:00:00 101 mm[Hg] [facility] Diastolic blood pressure 2022-09-08 03:00:00 56 mm[Hg] [facility] Heart rate 2022-09-08 03:00:00 89 /min [facility] Oxygen saturation in Arterial blood by Pulse oximetry 2022-09-08 03:00:00 99 /min [facility] Body temperature 2022-09-08 01:23:00 37.06 Silvina [facility] Respiratory rate 2022-09-08 01:23:00 18 /min [facility] Body height 2022-09-08 01:23:00 165.1 cm [facility] Body weight 2022-09-08 01:23:00 116.937 kg [facility] BMI 2022-09-08 01:23:00 42.90 kg/m2 [facility] Heart rate 2022-09-05 03:57:00 79 [facility] by Pulse oximetry 2022-09-05 03:57:00 99 /min [facility] Systolic blood pressure 2022-09-05 03:30:00 121 mm[Hg] [facility] Diastolic blood pressure 2022-09-05 03:30:00 73 mm[Hg] [facility] Body temperature 2022-09-05 03:00:00 36.5 Silvina [facility] Respiratory rate 2022-09-05 03:00:00 16 /min [facility] Body height 2022-09-05 02:45:00 165.1 cm [facility] Body weight 2022-09-05 02:45:00 116.937 kg [facility] BMI 2022-09-05 02:45:00 42.90 kg/m2 [facility] Heart rate 2022-09-02 12:32:00 75 /min [facility] Oxygen saturation in Arterial blood by Pulse oximetry 2022-09-02 12:32:00 99 /min [facility] Systolic blood pressure 2022-09-02 10:55:00 121 mm[Hg] [facility] Diastolic blood pressure 2022-09-02 10:55:00 73 mm[Hg] [facility] Body temperature 2022-09-02 10:55:00 36.61 Silvina [facility] Respiratory rate 2022-09-02 10:55:00 19 /min [facility] Body height 2022-09-02 10:55:00 165.1 cm [facility] Body weight 2022-09-02 10:55:00 115.304 kg [facility] BMI 2022-09-02 10:55:00 42.30 kg/m2 [facility] Systolic blood pressure 2022-09-01 21:55:00 113 mm[Hg] [facility] Diastolic blood pressure 2022-09-01 21:55:00 74 mm[Hg] [facility] Heart rate 2022-09-01 21:55:00 97 /min [facility] Body temperature 2022-09-01 21:55:00 36.67 Silvina [facility] Respiratory rate 2022-09-01 21:55:00 20 /min [facility] Body height 2022-09-01 21:55:00 165.1 cm [facility] Body weight 2022-09-01 21:55:00 115.696 kg [facility] BMI 2022-09-01 21:55:00 42.44 kg/m2 [facility] Systolic blood pressure 2022-08-27 16:48:00 117 mm[Hg] [facility] Diastolic blood pressure 2022-08-27 16:48:00 76 mm[Hg] [facility] Heart rate 2022-08-27 16:48:00 84 /min [facility] Body temperature 2022-08-27 16:48:00 36.89 Silvina [facility] Respiratory rate 2022-08-27 16:48:00 16 /min [facility] Body height 2022-08-27 16:48:00 165.1 cm [facility] Body weight 2022-08-27 16:48:00 115.123 kg [facility] BMI 2022-08-27 16:48:00 42.23 kg/m2 [facility] Oxygen saturation in Arterial blood by Pulse oximetry 2022-08-27 16:48:00 99 /min [facility] Heart rate 2022-08-23 02:00:00 90 /min [facility] Oxygen saturation in Arterial blood by Pulse oximetry 2022-08-23 02:00:00 100 /min [facility] Systolic blood pressure 2022-08-22 23:34:00 119 mm[Hg] [facility] Diastolic blood pressure 2022-08-22 23:34:00 65 mm[Hg] [facility] Body temperature 2022-08-22 23:34:00 36.33 Silvina [facility] Respiratory rate 2022-08-22 23:34:00 16 /min [facility] Body height 2022-08-22 23:34:00 165.1 cm [facility] Body weight 2022-08-22 23:34:00 115.667 kg [facility] BMI 2022-08-22 23:34:00 42.43 kg/m2 [facility] Systolic blood pressure 2022-08-14 01:14:00 105 mm[Hg] [facility] Diastolic blood pressure 2022-08-14 01:14:00 59 mm[Hg] [facility] Heart rate 2022-08-14 01:14:00 87 /min [facility] Body temperature 2022-08-14 01:14:00 36.44 Silvina [facility] Respiratory rate 2022-08-14 01:14:00 16 /min [facility] Oxygen saturation in Arterial blood by Pulse oximetry 2022-08-14 01:14:00 98 /min [facility] Body height 2022-08-14 00:23:00 165.1 cm [facility] Body weight 2022-08-14 00:23:00 113.853 kg 251lb [facility] BMI 2022-08-14 00:23:00 41.77 kg/m2 [facility] Systolic blood pressure 2022-08-13 14:37:00 104 mm[Hg] [facility] Diastolic blood pressure 2022-08-13 14:37:00 72 mm[Hg] [facility] Heart rate 2022-08-13 14:37:00 97 /[facility] Body temperature 2022-08-13 14:37:00 36.89 Silvina [facility] Respiratory rate 2022-08-13 14:37:00 18 /min [facility] Body height 2022-08-13 14:37:00 165.1 cm [facility] Body weight 2022-08-13 14:37:00 113.807 kg [facility] BMI 2022-08-13 14:37:00 41.75 kg/m2 [facility] Systolic blood pressure 2022-08-09 16:05:00 107 mm[Hg] [facility] Diastolic blood pressure 2022-08-09 16:05:00 74 mm[Hg] [facility] Heart rate 2022-08-09 16:05:00 84 [facility] 2022-08-09 16:05:00 36.78 Silvina [facility] Respiratory rate 2022-08-09 16:05:00 16 /min [facility] Body height 2022-08-09 16:05:00 165.1 cm [facility] Body weight 2022-08-09 16:05:00 114.306 kg [facility] BMI 2022-08-09 16:05:00 41.93 kg/m2 [facility] Oxygen saturation in Arterial blood by Pulse oximetry 2022-08-09 16:05:00 98 /min [facility] Heart rate 2022-08-08 21:30:00 89 /min [facility] Oxygen saturation in Arterial blood by Pulse oximetry 2022-08-08 21:30:00 99 /min [facility] Systolic blood pressure 2022-08-08 20:45:00 121 mm[Hg] [facility] Diastolic blood pressure 2022-08-08 20:45:00 65 mm[Hg] [facility] Body temperature 2022-08-08 20:45:00 36.61 Silvina [facility] Respiratory rate 2022-08-08 20:45:00 16 /min [facility] Body height 2022-08-08 20:22:00 [facility] 2022-08-08 20:22:00 113.853 kg [facility] BMI 2022-08-08 20:22:00 41.77 kg/m2 [facility] Systolic blood pressure 2022-08-02 13:35:00 111 mm[Hg[facility] Di[facility] blood pressure 2022-08-02 13:35:00 69 mm[Hg] [facility] Heart rate 2022-08-02 13:35:00 87 /min [facility] Body temperature 2022-08-02 13:35:00 37.11 Silvina [facility] Respiratory rate 2022-08-02 13:35:00 16 /min [facility] Body height 2022-08-02 13:35:00 165.1 cm [facility] Body weight 2022-08-02 13:35:00 112.719 kg [facility] BMI 2022-08-02 13:35:00 41.35 kg/m2 [facility] Oxygen saturation in Arterial blood by Pulse oximetry 2022-08-02 13:35:00 97 /min [facility] Systolic blood pressure 2022-07-31 12:17:00 112 mm[Hg] [facility] Diastolic blood pressure 2022-07-31 12:17:00 72 mm[Hg] [facility] Heart rate 2022-07-31 12:17:00 82 /min [facility] Body temperature 2022-07-31 12:17:00 36.83 Silvina [facility] Respiratory rate 2022-07-31 12:17:00 18 /min [facility] Body height 2022-07-31 12:17:00 165.1 cm [facility] Body weight 2022-07-31 12:17:00 111.585 kg [facility] BMI 2022-07-31 12:17:00 40.94 kg/m2 [facility] Oxygen saturation in Arterial blood by Pulse oximetry 2022-07-31 12:17:00 96 /min [facility] Systolic blood pressure 2022-07-30 18:23:00 112 mm[Hg] [facility] Diastolic blood pressure 2022-07-30 18:23:00 75 mm[Hg] [facility] Heart rate 2022-07-30 18:23:00 88 /min [facility] Body temperature 2022-07-30 18:23:00 36.89 Silvina [facility] Respiratory rate 2022-07-30 18:23:00 16 /min [facility] Body height 2022-07-30 18:23:00 165.1 cm [facility] Body weight 2022-07-30 18:23:00 111.766 kg [facility] BMI 2022-07-30 18:23:00 41.00 kg/m2 [facility] Oxygen saturation in Arterial blood by Pulse oximetry 2022-07-30 18:23:00 98 /min [facility] Systolic blood pressure 2022-07-30 03:08:00 114 mm[Hg] [facility] Diastolic blood pressure 2022-07-30 03:08:00 73 mm[Hg] [facility] Heart rate 2022-07-30 03:08:00 95 /min [facility] Body temperature 2022-07-30 03:08:00 36.78 Silvina [facility] Respiratory rate 2022-07-30 03:08:00 18 /min [facility] Oxygen saturation in Arterial blood by Pulse oximetry 2022-07-30 03:08:00 98 [facility] Body height 2022-07-30 02:42:00 165.1 cm [facility] Body weight 2022-07-30 02:42:00 112.537 kg [facility] BMI 2022-07-30 02:42:00 41.29 kg/m2 [facility] Heart rate 2022-07-25 01:00:00 85 /min [facility] Oxygen saturation in Arterial blood by Pulse oximetry 2022-07-25 01:00:00 99 /min [facility] Systolic blood pressure 2022-07-25 00:15:00 103 mm[Hg] [facility] Diastolic blood pressure 2022-07-25 00:15:00 57 mm[Hg] [facility] Body temperature 2022-07-25 00:15:00 36.78 Silvina [facility] Respiratory rate 2022-07-25 00:15:00 16 /min [facility] Body height 2022-07-24 23:27:00 162.6 cm [facility] Body weight 2022-07-24 23:27:00 110.678 kg [facility] BMI 2022-07-24 23:27:00 41.88 kg/m2 [facility] Systolic blood pressure 2022-07-23 18:19:00 104 mm[Hg[facility] Diastolic blood pressure 2022-07-23 18:19:00 68 mm[Hg] [facility] Heart rate 2022-07-23 18:19:00 74 /min [facility] Body temperature 2022-07-23 18:19:00 36.72 Silvina [facility] Respiratory rate 2022-07-23 18:19:00 16 /min [facility] Body height 2022-07-23 18:19:00 165.1 cm [facility] Body weight 2022-07-23 18:19:00 113.127 kg [facility] BMI 2022-07-23 18:19:00 41.50 kg/m2 [facility] Oxygen saturation in Arterial blood by Pulse oximetry 2022-07-23 18:19:00 98 /min [facility] Heart rate 2022-07-21 15:30:00 87 /min [facility] Oxygen saturation in Arterial blood by Pulse oximetry 2022-07-21 15:30:00 100 /min [facility] Systolic blood pressure 2022-07-21 13:34:00 112 mm[Hg] [facility] Diastolic blood pressure 2022-07-21 13:34:00 61 mm[Hg] [facility] Body temperature 2022-07-21 13:34:00 37 Silvina [facility] Respiratory rate 2022-07-21 13:34:00 18 /min [facility] Body height 2022-07-21 13:34:00 165.1 cm [facility] Body weight 2022-07-21 13:34:00 112.311 kg [facility] BMI 2022-07-21 13:34:00 41.20 kg/m2 [facility] Systolic blood pressure 2022-07-16 16:35:00 103 mm[Hg] [facility] Diastolic blood pressure 2022-07-16 16:35:00 72 mm[Hg] [facility] Heart rate 2022-07-16 16:35:00 90 /min [facility] Respiratory rate 2022-07-16 16:35:00 18 /min [facility] Body height 2022-07-16 16:35:00 162.6 cm [facility] Body weight 2022-07-16 16:35:00 111.54 kg [facility] BMI 2022-07-16 16:35:00 42.21 kg/m2 [facility] Oxygen saturation in Arterial blood by Pulse oximetry 2022-07-16 16:35:00 98 /min [facility] Systolic blood pressure 2022-07-14 16:41:00 104 mm[Hg] [facility] Diastolic blood pressure 2022-07-14 16:41:00 70 mm[Hg] [facility] Heart rate 2022-07-14 16:41:00 68 /min [facility] Body temperature 2022-07-14 16:41:00 36.83 Silvina [facility] Respiratory rate 2022-07-14 16:41:00 18 /min [facility] Body height 2022-07-14 16:41:00 165.1 cm [facility] Body weight 2022-07-14 16:41:00 111.131 kg [facility] BMI 2022-07-14 16:41:00 40.77 kg/m2 [facility] Systolic blood pressure 2022-07-11 13:49:00 108 mm[Hg[facility] Diastolic blood pressure 2022-07-11 13:49:00 52 mm[Hg] [facility] Body temperature 2022-07-11 13:49:00 36.72 Silvina [facility] Respiratory rate 2022-07-11 13:49:00 18 /min [facility] Oxygen saturation in Arterial blood by Pulse oximetry 2022-07-11 13:49:00 100 /min [facility] Heart rate 2022-07-11 11:15:00 89 /min [facility] Body height 2022-07-11 01:10:00 165.1 cm [facility] Body weight 2022-07-11 01:10:00 111.585 kg [facility] BMI 2022-07-11 01:10:00 40.94 kg/m2 [facility] Systolic blood pressure 2022-06-30 15:31:00 109 mm[Hg[facility] Diastolic blood pressure 2022-06-30 15:31:00 73 mm[Hg] [facility] Heart rate 2022-06-30 15:31:00 77 /min [facility] Respiratory rate 2022-06-30 15:31:00 18 /min [facility] Body height 2022-06-30 15:31:00 165.1 cm [facility] Body weight 2022-06-30 15:31:00 110.406 kg [facility] BMI 2022-06-30 15:31:00 40.50 kg/m2 [facility] Oxygen saturation in Arterial blood by Pulse oximetry 2022-06-30 15:31:00 97 /min [facility] Systolic blood pressure 2022-06-25 16:14:00 110 mm[Hg[facility] Diastolic blood pressure 2022-06-25 16:14:00 72 mm[Hg] [facility] Heart rate 2022-06-25 16:14:00 117 /min [facility] Body temperature 2022-06-25 16:14:00 36.83 Silvina [facility] Respiratory rate 2022-06-25 16:14:00 18 /min [facility] Body height 2022-06-25 16:14:00 165.1 cm [facility] Body weight 2022-06-25 16:14:00 111.086 kg [facility] BMI 2022-06-25 16:14:00 40.75 kg/m2 [facility] height 2022-01-12 14:00:00 64 [in_i] Commo n [facility] weight 2022-01-12 14:00:00 244.6 [lb_av] Co mmon [facility] temperature 2022-01-12 14:00:00 97.9 [degF] Com mon [facility] bmi 2022-01-12 14:00:00 41.98 kg/m2 Comm on [facility] oximetry 2022-01-12 14:00:00 99 % Commo n [facility] respiratory rate 2022-01-12 14:00:00 17 /min [facility] blood pressure systolic 2022-01-12 14:00:00 124 mm[Hg] [facility] blood pressure diastolic 2022-01-12 14:00:00 75 mm[Hg] [facility] height 2021-07-10 09:40:00 64 [in_i] Commo n [facility] weight 2021-07-10 09:40:00 240 [lb_av] Comm on [facility] temperature 2021-07-10 09:40:00 98 [degF] Comm on [facility] bmi 2021-07-10 09:40:00 41.19 kg/m2 Comm on [facility] height 2021-04-09 11:10:00 64 [in_i] Commo n [facility] weight 2021-04-09 11:10:00 240 [lb_av] Comm on [facility] temperature 2021-04-09 11:10:00 97.5 [degF] Com [facility] bmi 2021-04-09 11:10:00 41.19 kg/m2 Comm on [facility] height 2021-03-05 13:00:00 64 [in_i] Commo n [facility] weight 2021-03-05 13:00:00 240 [lb_av] Comm on [facility] temperature 2021-03-05 13:00:00 98 [degF] Comm on [facility] bmi 2021-03-05 13:00:00 41.19 kg/m2 Comm on [facility] height 2021-02-04 16:00:00 64 [in_i] Commo n [facility] weight 2021-02-04 16:00:00 245.0 [lb_av] Co mmon [facility] temperature 2021-02-04 16:00:00 97.1 [degF] Com mon [facility] bmi 2021-02-04 16:00:00 42.05 kg/m2 Comm on [facility] oximetry 2021-02-04 16:00:00 98 % Commo n [facility] respiratory rate 2021-02-04 16:00:00 17 /min [facility] blood pressure systolic 2021-02-04 16:00:00 116 mm[Hg] [facility] blood pressure diastolic 2021-02-04 16:00:00 68 mm[Hg] [facility] Procedures Procedure Date / Time Performed Performing Clinician Source POCUS OB US ABD LIMITED 2025-05-14 19:28:08 Esther Garza [facility] TOTAL BETA HCG ASSAY 2025-05-14 18:12:00 Abimael Garza [facility] URINALYSIS 2025-05-14 18:09:00 [facility] 2025-05-14 18:09:00 Kelly Garza ra [facility] POCUS OB US ABD LIMITED 2025-05-14 17:53:20 Esther Garza [facility] POCT MOLECULAR FLU 2025-04-08 01:36:00 [facility] PO[facility] SARS-COV-2 ANTIGEN (BINAX NOW) 2025-04-08 01:35:00 Aurora Ashraf [facility] POCT MOLECULAR STREP 2025-04-08 01:33:00 Aurora Ashraf [facility] POCT TEST 2025-01-25 01:40:00 Rambo Mondragon [facility] CBC WITH DIFF 2025-01-25 00:31:00 Rambo Mondragon Uni [facility] XR ANKLE 3+ VW LEFT 2024-10-25 17:37:22 Alejandro Pfeiffer [facility] XR FOOT 3+ VW LEFT 2024-10-25 17:37:22 Alejandro Pfeiffer [facility] POCT MOLECULAR STREP 2024-07-10 00:53:00 Leonor Mueller [facility] TROPONIN I 2024-07-04 00:51:00 Jarrett Navarro [facility] COMP. METABOLIC PANEL ([id number]) 2024-07-04 00:51:00 Ramon [facility] CBC WITH DIFF 2024-07-04 00:51:00 [facility] 2024-07-04 00:51:00 Jarrett Navarro [facility] N-TERMINAL PRO-BNP 2024-07-04 00:51:00 Ramon [facility] POCT MOLECULAR STREP 2024-06-29 01:25:00 Unknown, Atte piedad [facility] POCT TEST 2024-05-13 06:36:00 Brooklynn Nagy [facility] XR KNEE <3 VW RIGHT 2024-05-13 06:12:16 Brooklynn Nagy [facility] COMP. METABOLIC PANEL ([id number]) 2023-12-01 04:34:00 Gildardo Dunne [facility] CBC WITH DIFF 2023-12-01 04:34:00 Gildardo Dunne [facility] URINALYSIS 2023-12-01 04:34:00 [facility] POCT TEST 2023-12-01 04:33:00 Gildardo Dunne [facility] XR KNEE 3 VW RIGHT 2023-12-01 04:24:34 Gildardo Dunne [facility] ASSIGNMENT OF BENEFITS 2023-12-01 03:21:42 Docto r Unassigned, [place] [facility] NOTICE OF PRIVACY PRACTICES 2023-12-01 02:41:06 Doctor Unassigned, [place] [facility] CONSENT/REFUSAL FOR DIAGNOSIS AND TREATMENT 2023-12-01 02:40:06 Doctor Unassigned, [place] [facility] ASSIGNMENT OF BENEFITS 2023-10-14 04:37:08 Docto r Unassigned, [place] [facility] XR HIPS 2 VW RIGHT 2023-10-14 04:26:25 Elen Benedict [facility] XR PELVIS <3 VW 2023-10-14 04:26:25 Elen Benedict [facility] POCT TEST 2023-10-14 04:08:00 Elen Benedict [facility] CONSENT/REFUSAL FOR DIAGNOSIS AND TREATMENT 2023-10-14 03:26:58 Doctor Unassigned, [place] [facility] POCT MOLECULAR FLU 2023-09-28 01:49:00 Unknown, Attend [facility] POCT MOLECULAR STREP 2023-09-28 01:43:00 Unknown, Atte piedad [facility] CONSENT/REFUSAL FOR DIAGNOSIS AND TREATMENT 2023-09-28 01:24:42 Doctor Unassigned, [place] [facility] XR CHEST 1 VW 2023-09-04 03:28:00 Elen Benedict [facility] CONSENT/REFUSAL FOR DIAGNOSIS AND TREATMENT 2023-09-04 02:58:37 Doctor Unassigned, [place] [facility] POCT TEST 2023-08-29 16:59:00 Gustavo Nicole [facility] URINALYSIS 2023-08-29 16:55:00 Nicole Hughes [facility] RAPID STREP SCREEN FOR GROUP A 2023-08-29 16:45:00 Nicole Hughes [facility] RAPID INFLUENZA A/B 2023-08-29 16:45:00 Gustavo Nicole [facility] COVID-19 (ID NOW RAPID TESTING) 2023-08-29 16:45:00 Gustavo Nicole [facility] CONSENT/REFUSAL FOR DIAGNOSIS AND TREATMENT 2023-08-29 16:17:13 Doctor Unassigned, [place] [facility] POCT MOLECULAR STREP 2023-02-14 01:10:00 Unknown, Atte nding [facility] CONSENT FOR CONTRACEPTION 2022-11-05 06:01:00 Doctor Unassigned, [place] [facility] POCT TEST 2022-11-05 00:00:00 Josette Cheung [facility] CBC WITH DIFF 2022-09-28 10:16:00 Josette Cheung [facility] CENTRAL NEURAXIAL BLOCK 2022-09-27 17:43:59 Lila Peterson [facility] POCT URINALYSIS W/O SPECIFIC GRAVITY 2022-09-24 00:00:00 Kortney Trejo [facility] ADC ONLY - FERN TEST 2022-09-20 21:22:00 Josette Cheung [facility] CONSENT/REFUSAL FOR DIAGNOSIS AND TREATMENT 2022-09-20 20:41:32 Doctor Unassigned, [place] [facility] POCT URINALYSIS W/O SPECIFIC GRAVITY 2022-09-17 00:00:00 Josette Cheung [facility] ASSIGNMENT OF BENEFITS 2022-09-16 15:34:10 Docto r Unassigned, [place] [facility] CONSENT/REFUSAL FOR DIAGNOSIS AND TREATMENT 2022-09-16 15:33:45 Doctor Unassigned, [place] [facility] CONSENT/REFUSAL FOR DIAGNOSIS AND TREATMENT 2022-09-10 13:59:02 Doctor Unassigned, [place] [facility] POCT URINALYSIS W/O SPECIFIC GRAVITY 2022-09-01 21:55:00 Kortney Trejo [facility] POCT URINALYSIS W/O SPECIFIC GRAVITY 2022-08-27 00:00:00 Josette Cheung [facility] ADC ONLY - FERN TEST 2022-08-23 00:32:00 AdKimberlyn rosa [facility] CONSENT/REFUSAL FOR DIAGNOSIS AND TREATMENT 2022-08-22 23:10:08 Doctor Unassigned, [place] [facility] ASSIGNMENT OF BENEFITS 2022-08-22 23:09:40 Docto r Unassigned, [place] [facility] ASSIGNMENT OF BENEFITS 2022-08-13 23:59:39 Docto r Unassigned, [place] [facility] CONSENT/REFUSAL FOR DIAGNOSIS AND TREATMENT 2022-08-13 23:55:23 Doctor Unassigned, [place] [facility] POCT URINALYSIS W/O SPECIFIC GRAVITY 2022-08-13 00:00:00 Josette Cheung [facility] CONSENT/REFUSAL FOR DIAGNOSIS AND TREATMENT 2022-08-08 20:14:56 Doctor Unassigned, [place] [facility] LIPASE 2022-07-31 13:17:00 Jarvis Mcqueen [facility] COMP. METABOLIC PANEL ([id number]) 2022-07-31 13:17:00 Jarvis Mcqueen [facility] CBC WITH DIFF 2022-07-31 13:17:00 Jarvis Mcqueen [facility] URINALYSIS 2022-07-31 13:17:00 Jarvis Mcqueen [facility] CONSENT/REFUSAL FOR DIAGNOSIS AND TREATMENT 2022-07-31 12:19:27 Doctor Unassigned, [place] [facility] ADC ONLY - FERN TEST 2022-07-30 03:23:00 AdKimberlyn rosa [facility] CONSENT/REFUSAL FOR DIAGNOSIS AND TREATMENT 2022-07-30 02:31:49 Doctor Unassigned, [place] [facility] POCT URINALYSIS W/O SPECIFIC GRAVITY 2022-07-30 00:00:00 Kortney Trejo [facility] AUTHORIZATION FOR RELEASE OF PHI 2022-07-29 05:01:00 Doctor Unassigned, [place] [facility] CONSENT/REFUSAL FOR DIAGNOSIS AND TREATMENT 2022-07-24 23:17:55 Doctor Unassigned, [place] [facility] ASSIGNMENT OF BENEFITS 2022-07-24 23:17:39 Docdorie r Unassigned, [place] [facility] TDAP VACCINE, >11 YRS, IM 2022-07-23 18:09:53 Kortney Trejo [facility] FLU VACC (), 6 MO-64 YRS, .5ML, IM, QUAD (FLUCELVAX) 2022-07-23 18:09:53 Kortney Trejo [facility] URINALYSIS 2022-07-21 14:02:[address] [facility] CLC OR LCC ONLY - WET PREP 2022-07-21 14:02:00 Josette Cheung [facility] CONSENT/REFUSAL FOR DIAGNOSIS AND TREATMENT 2022-07-21 13:13:42 Doctor Unassigned, [place] [facility] ASSIGNMENT OF BENEFITS 2022-07-21 13:13:23 Docto r Unassigned, [place] [facility] POCT URINALYSIS W/O SPECIFIC GRAVITY 2022-07-16 16:39:00 Josette Cheung [facility] SCANNED LAB RESULTS 2022-07-16 05:01:00 Doctor Yessy urban, [place] [facility] CLC OR LCC ONLY - WET PREP 2022-07-11 01:46:00 Fish Sam [facility] ONLY - FERN TEST 2022-07-11 01:44:00 Kirk [facility] ASSIGNMENT OF BENEFITS 2022-07-11 00:47:49 Docto r Unassigned, [place] [facility] POCT URINALYSIS W/O SPECIFIC GRAVITY 2022-06-30 15:32:00 Kortney Trejo [facility] ASSIGNMENT OF BENEFITS 2022-06-28 15:33:01 Docto r Unassigned, [place] [facility] POCT URINALYSIS W/O SPECIFIC GRAVITY 2022-06-25 00:00:00 Kortney Trejo [facility] MR Knee wo contrast [id number] 2018-08-25 00:00:00 [facility] US Extremity lower venous doppler bilat [id number] 2018-08-25 00:00:00 [facility] Encounters Start Date/Time End Date/Time Encounter Type Admission Type Attending [facility] Care Department Encounter ID Source 2022-12-28 07:26:01 [facility] [id number] [facility] 2022-07-11 11:05:16 Outpatient X KIMBERLYN SR [facility] [id number] [facility] 2021-11-04 13:55:18 [facility] [id number] [facility] 2021-11-04 13:10:23 Outpatient Langford, Fernandez [facility] [id number] [facility] 2021-11-04 12:57:22 Outpatient Langford, Fernandez [facility] [id number] [facility] 2021-11-04 12:25:15 Outpatient Langford, Fernandez [facility] [id number] [facility] 2021-11-04 12:13:17 Outpatient Langford, Fernandez [facility] [id number] [facility] 2021-11-04 12:00:49 Outpatient Langford, Fernandez [facility] [id number] [facility] 2021-11-04 11:54:10 Outpatient Langford, Fernandez [facility] [id number] [facility] 2021-11-04 11:51:45 Outpatient Langford, Fernandez [facility] [id number] [facility] 2021-08-11 08:26:00 Emergency [facility] [id number] [facility] 2021-08-10 22:05:53 Emergency [facility] [id number] [facility] 2021-08-06 18:42:34 Outpatient P [facility] [id number] [facility] 2021-08-06 18:05:33 Outpatient P [facility] [id number] [facility] 2021-08-06 18:04:40 Outpatient P [facility] [id number] [facility] 2025-06-21 09:15:00 2025-06-21 09:15:00 Outpatient LINNEA [facility]ERR[facility] [id number] [facility] 2025-05-22 10:00:00 2025-05-22 10:00:00 Outpatient SANTY YARBROUGH [id number] [facility] 2025-05-14 12:46:00 2025-05-14 15:13:00 Emergency X Esther Garza [facility] ..[id number] [facility] 2025-05-14 00:00:00 2025-05-14 00:00:00 Outpatient SANTY YARBROUGH [id number] [facility] 2025-05-10 10:45:00 2025-05-10 10:45:00 Outpatient ANAT MERRITT [id number] [facility] 2025-05-08 00:00:00 2025-05-08 00:00:00 Outpatient SANTY YARBROUGH [id number] [facility] 2025-05-02 09:00:00 2025-05-02 09:00:00 Outpatient SANTOSH AREVALO [id number] [facility] 2025-05-01 00:00:00 2025-05-01 00:00:00 Outpatient SANTY YARBROUGH [id number] [facility] 2025-04-29 00:00:00 2025-04-29 15:37:18 Aurora Vasquez [facility] 1..[id number] [facility] 2025-04-27 00:00:00 2025-04-27 00:00:00 Outpatient LOREN HERNANDEZ ANAT MERRITT [id number] Anat shanae 2025-04-26 15:30:00 2025-04-26 15:30:00 Outpatient SANTOSH AREVALO ANAT MERRITT [id number] Anat shanae 2025-04-26 10:30:00 2025-04-26 10:30:00 Outpatient MADHAVI COBB ANAT MERRITT [id number] [facility] 2025-04-10 11:15:00 2025-04-10 11:15:00 Outpatient SANTY YARBROUGH [id number] [facility] 2025-04-07 20:20:00 2025-04-07 20:41:44 Urgent Care [facility] [id number] [facility] 2025-04-07 17:15:00 2025-04-07 17:15:00 Outpatient ANAT MERRITT [id number] [facility] 2025-04-05 20:45:00 2025-04-05 20:45:00 Outpatient ANAT MERRITT [id number] [facility] 2025-04-05 00:00:00 2025-04-05 00:00:00 Outpatient MD ANAT RECINOS [id number] [facility] 2025-04-02 11:00:00 2025-04-02 11:00:00 Outpatient DAVID LOREN ANAT MERRITT [id number] [facility] 2025-03-28 13:15:00 2025-03-28 13:15:00 [facility]patient [facility] [id number] [facility]25-[facility]-20 15:15:00 2025-03-20 15:15:00 Outpatient SANTY YARBROUGH [id number] [facility] [place] 2025-03-20 11:25:00 2025-03-20 11:25:00 Outpatient LAB47 ANAT MERRITT [id number] [facility] 2025-03-20 10:45:00 2025-03-20 10:45:00 Outpatient LINNEA, SANTY MERRITT [id number] Anat ybshanae 2025-03-13 09:30:00 2025-03-13 09:30:00 Outpatient HUNDTesha, L[facility]EN [facility] [id number] [facility] 2025-03-06 15:30:00 2025-03-06 15:30:00 Outpatient HUNDTesha, LOREN MERRITT [id number] [facility] 2025-03-06 09:30:00 2025-03-06 09:30:00 Outpatient HUNDTesha, LOREN MERRITT [id number] [facility] 2025-03-02 12:30:00 2025-03-02 12:30:00 Outpatient NATHEN NIETO [id number] [facility] 2025-03-02 11:30:00 2025-03-02 11:30:00 Outpatient [facility]AT [facility] [id number] [facility] 2025-02-25 13:00:00 2025-02-25 13:00:00 Outpatient DAVID, LOREN [facility]ERRITT [id number] [facility] 2025-02-21 12:30:00 2025-02-21 12:30:00 Outpatient ANAT MERRITT [id number] Anat [facility] 2025-02-21 00:00:00 2025-02-21 00:00:00 Outpatient LINNEA, SANTY MERRITT [id number] [facility] 2025-02-19 11:15:00 2025-02-19 11:15:00 Outpatient ROMINAINSANTY [id number] [facility] 2025-02-15 00:00:00 2025-02-15 00:00:00 Outpatient LOREN HERNANDEZ [id number] [facility] 2025-02-14 13:30:00 2025-02-14 13:30:00 Outpatient LOREN HERNANDEZ [id number] Anat [place] 2025-02-13 14:45:00 2025-02-13 14:45:00 Outpatient LEPOIDEVIN, SANTY MERRITT [id number] Anat [facility] 2025-01-28 10:00:00 2025-01-28 10:00:00 Outpatient LEPOIDEVIN, SANTY MERRITT [id number] [facility]at [facility] 2025-01-24 19:19:00 2025-01-24 21:33:00 Emergency X RAMBO MONDRAGON ERICCA [facility] E[facility] [id number] [facility] 2025-01-24 19:19:00 2025-01-24 21:33:00 Emergency Rambo Mondragon [facility] 1.2.840.114 350.1.13.10 4.2.7.2.686 [id number] [facility] 2025-01-24 14:30:00 2025-01-24 14:30:00 Outpatient LEPOIDEVIN, SANTY MERRITT [id number] [facility] 2025-01-24 00:00:00 2025-01-24 00:00:00 Outpatient LEPOIDEVIN, SANTY MERRITT [id number] [facility] 2025-01-17 00:00:00 2025-01-17 00:00:00 Outpatient LEPOIDEVIN, SANTY MERRITT [id number] [facility]at [facility] 2025-01-16 00:00:00 2025-01-16 00:00:00 Outpatient LEPOIDEVIN, SANTY MERRITT [id number] Anat [facility] 2025-01-15 13:45:00 2025-01-15 13:45:00 Outpatient LCL230Matthias MERRITT [id number] Anat [facility] 2025-01-15 11:45:00 2025-01-15 11:45:00 Outpatient LEPOIDEVIN, SANTY MERRITT [id number] Anat [facility] 2025-01-14 00:00:00 2025-01-14 00:00:00 Outpatient LEPOIDEVIN, SANTY MERRITT [id number] Anat [facility] 2025-01-07 00:00:00 2025-01-07 00:00:00 Outpatient LEPOIDEVIN, SANTY MERRITT [id number] [facility]at [facility] 2025-01-02 00:00:00 2025-01-02 00:00:00 [facility] [id number] [facility]24-12-26 13:10:00 2024-12-26 13:10:00 Outpatient DEBBIE RUBIN [id number] [facility] 2024-12-26 09:00:00 2024-12-26 09:00:00 Outpatient LOREN HERNANDEZ [id number] [facility] 2024-12-25 00:00:00 2024-12-25 00:00:00 Outpatient LEPOIDEVIN, SANTY MERRITT [id number] [facility] 2024-12-21 11:00:00 2024-12-21 11:00:00 Outpatient DEBBIE RUBIN [id number] [facility] 2024-12-20 00:00:00 2024-12-20 00:00:00 Outpatient DEBBIE RBUIN [id number] [facility] 2024-12-19 10:40:00 2024-12-19 10:40:00 Outpatient DEBBIE RUBIN [id number] [facility] 2024-12-17 16:00:00 2024-12-17 16:00:00 Outpatient LEPOIDEVIN, SANTY MERRITT [id number] [facility] 2024-12-13 00:00:00 2024-12-13 00:00:00 Outpatient LEPOIDEVIN, SANTY MERRITT [id number] [facility] 2024-12-12 14:30:00 2024-12-12 14:30:00 Outpatient LEPOIDEVIN, SANTY MERRITT [id number] [facility] 2024-12-07 11:00:00 2024-12-07 11:00:00 Outpatient LEPOIDEVINHUMASANTYLIDIA [facility] [id number] [facility] 14:00:00 2024-12-04 14:00:00 Outpatient KIMBERLYN GOLDBERG, KIMBERLYN [facility] [id number] [facility] 2024-12-03 13:00:00 2024-12-03 13:00:00 Outpatient LOREN HERNANDEZ [id number] [facility] 2024-11-28 10:10:00 2024-11-28 10:10:00 Outpatient DEBBIE RUBIN [id number] [facility] 2024-11-27 10:30:00 2024-11-27 10:30:00 Outpatient R KIMBERLYN SR, KIMBERLYN [facility] [id number] [facility] 2024-11-26 16:00:00 2024-11-26 16:00:00 Outpatient LOREN HERNANDEZ [id number] [facility] 2024-11-26 00:00:00 2024-11-26 00:00:00 Outpatient DEBBIE RUBIN [id number] [facility] 2024-11-22 15:30:00 2024-11-22 15:30:00 Out[facility]DEZ [id number] [facility] 11:00:00 2024-11-07 11:00:00 Outpatient LOREN HERNANDEZ [id number] [facility] 2024-11-02 00:00:00 2024-11-02 00:00:00 Outpatient LOREN HERNANDEZ [id number] [facility] 2024-11-01 10:30:00 2024-11-01 10:30:00 Outpatient MADHAVI COBB [id number] [facility] 2024-10-30 11:00:00 2024-10-30 11:00:00 Outpatient LOREN HERNA[facility]DEZ [id number] [facility] 2024-10-29 00:00:00 2024-10-29 00:00:00 Outpatient LOREN HERNANDEZ [id number] [facility] 2024-10-25 11:06:00 2024-10-25 13:04:00 Emergency X ALEJANDRO PFEIFFER [facility] ERT [id number] [facility] 2024-10-25 11:06:00 2024-10-25 13:04:00 Emergency Alejandro Pfeiffer T [facility] 1.2.840.114 350.1.13.10 4.2.7.2.686 [id number] [facility] 2024-10-25 11:00:00 2024-10-25 11:00:00 Outpatient [facility]INI GEE [id number] [facility] 11:30:00 2024-10-19 11:30:00 Outpatient LILY LEMOS [id number] [facility] 2024-10-18 00:00:00 2024-10-18 00:00:00 Outpatient LOREN HERNANDEZ [id number] [facility] 2024-10-15 00:00:00 2024-10-15 00:00:00 Outpatient LOREN HERNANDEZ [id number] [facility] 2024-09-28 00:00:00 2024-09-28 00:00:00 Outpatient MD ANAT RECINOS [id number] [facility] 2024-09-07 00:00:00 2024-09-07 00:00:00 Outpatient LOREN HERNANDEZ [id number] [facility] 2024-08-30 13:00:00 2024-08-30 13:00:00 Outpatient LOREN HERNANDEZ [id number] [facility] 2024-08-30 00:00:00 2024-08-30 00:00:00 Outpatient TIFFANY DOUGLAS [id number] [facility] 2024-08-30 00:00:00 2024-08-30 00:00:00 Outpatient MD ANAT RECINOS [id number] [facility] 2024-08-15 00:00:00 2024-08-15 00:00:00 Outpatient MD ANAT RECINOS [id number] [facility] 2024-08-15 00:00:00 2024-08-15 00:00:00 Outpatient LOREN HERNANDEZ [id number] [facility] 2024-08-09 10:30:00 2024-08-09 10:30:00 Outpatient LOREN HERNANDEZ [id number] [facility] 2024-07-18 12:30:00 2024-07-18 12:30:00 Outpatient ANAT MERRITT [id number] [facility] 2024-07-10 10:30:00 2024-07-10 10:30:00 Outpatient LOREN HERNANDEZ [id number] [facility] 2024-07-09 19:20:00 2024-07-09 20:06:56 Outpatient R LEONOR MUELLER [facility] [id number] [facility] 2024-07-09 19:20:00 2024-07-09 20:06:56 Urgent Care Leonor Mueller Unknown, Attending [facility] 1..840.114 350.1.13.10 4.2.7.2.686 [id number] [facility] 2024-07-03 17:29:00 2024-07-03 21:41:00 Emergency X JARRETT NAVARRO SHINTA [facility] ERT [id number] [facility] 2024-07-03 17:29:00 2024-07-03 21:41:00 Emergency Jarrett Navarro [facility] 1.840.114 350.1.13.10 4.2.7.2.686 [id number] [facility] 2024-06-28 20:00:00 2024-06-28 20:20:00 Urgent Care Delvis Kaye Unknown, Attending [facility] 1.2.840.114 350.1.13.10 4.2.7.2.686 [id number] [facility] 2024-06-28 20:00:00 2024-06-28 20:00:00 Outpatient R DELVIS KAYE [facility] [id number] [facility] 2024-06-28 08:20:00 2024-06-28 08:20:00 Outpatient LAB90 ANAT MERRITT [id number] [facility]at [facility] 2024-06-27 10:00:00 2024-06-27 10:00:00 Outpatient [facility] HER[facility]DEZ [id number] [facility] 2024-06-25 20:24:00 2024-06-25 21:05:00 Emergency X ESTHER GARZA SANDRA [facility] ERT [id number] [facility] 2024-06-25 20:24:00 2024-06-25 21:05:00 Emergency Esther Garza [facility] 1.2.840.114 350.1.13.10 4.2.7.2.686 [id number] [facility] 2024-06-25 19:00:00 2024-06-25 19:00:00 Outpatient KRYSTA BARRETO [id number] [facility] 2024-06-25 11:00:00 2024-06-25 11:00:00 Outpatient KAIDEN NG [id number] [facility] 2024-06-25 00:00:00 2024-06-25 00:00:00 Outpatient MD ANAT RECINOS [id number] [facility] 2024-06-16 00:00:00 2024-06-16 00:00:00 Outpatient TIFFANY DOUGLAS [id number] [facility] 2024-06-12 07:45:00 2024-06-12 07:45:00 Outpatient BERONICA MOORE ANAT MERRITT [id number] [facility] 2024-06-11 19:45:00 2024-06-11 19:45:00 Outpatient PASHA PEDROZA [id number] [facility] 2024-06-07 15:30:00 2024-06-07 15:30:00 Outpatient CHANTELL BOO [id number] [facility] 2024-06-06 14:20:00 2024-06-06 14:20:00 Outpatient ANAT MERRITT [id number] [facility] 2024-06-06 14:00:00 2024-06-06 14:00:00 Outpatient CHANTELL BOO [id number] [facility] 2024-06-05 00:00:00 2024-06-05 00:00:00 Outpatient MD ANAT RECINOS [id number] [facility] 2024-06-01 00:00:00 2024-06-01 00:00:00 Outpatient CHANTELL BOO [id number] [facility] 2024-05-30 19:00:00 2024-05-30 19:00:00 Outpatient GENET IN [id number] [facility] 2024-05-25 16:30:00 2024-05-25 16:30:00 Outpatient LOREN HERNANDEZ [id number] [facility] 2024-05-25 15:55:00 2024-05-25 15:55:00 Outpatient FRANCINE ANAT MERRITT [id number] [facility] 2024-05-23 00:00:00 2024-05-23 00:00:00 Outpatient ANAT MERRITT [id number] [facility] 2024-05-22 15:30:00 2024-05-22 15:30:00 Outpatient LOREN HERNANDEZ [id number] [facility] 2024-05-18 15:55:00 2024-05-18 15:55:00 Outpatient LAB47 ANAT MERRITT [id number] [facility] 2024-05-18 15:05:00 2024-05-18 15:05:00 Outpatient MOORE DAWN LEYVAIE ANAT MERRITT [id number] [facility] 2024-05-13 00:06:00 2024-05-13 02:18:00 Emergency X ADEBABITA VIRKIL [facility] ERT [id number] [facility] 2024-05-13 00:06:00 2024-05-13 02:18:00 Emergency AderibiBrooklynn hamiltonbarrett [facility] 1.2.840.114 350.1.13.10 4.2.7.2.686 [id number] [facility] 2024-05-10 20:45:00 2024-05-10 20:45:00 Outpatient HARI NAJERA [id number] [facility] 2024-05-08 11:00:00 2024-05-08 11:00:00 Outpatient LAB47 ANAT MERRITT [id number] [facility] 2024-05-07 13:00:00 2024-05-07 13:00:00 Outpatient LOREN HERNANDEZ [id number] [facility] 2024-05-05 20:35:00 2024-05-05 20:35:00 Outpatient JANET PERAZA [id number] [facility] 2024-05-01 10:30:00 2024-05-01 10:30:00 Outpatient LOREN HERNANDEZ [id number] [facility] 2024-04-13 14:30:00 2024-04-13 14:30:00 Outpatient JUNIOR BOONE [facility] [id number] [facility] 2023-11-30 21:48:00 2023-12-01 00:08:00 Emergency X VIBHA, K [facility] ERT [id number] [facility] 2023-11-30 21:48:00 2023-12-01 00:08:00 Emergency Gildardo Dunne [facility] 1.840.114 350.1.13.10 4.2.7.2.686 [id number] [facility] 2023-10-26 13:00:00 2023-10-26 13:00:00 Outpatient R JOSETTE CHEUNG [facility] [id number] [facility] 2023-10-13 21:42:00 2023-10-13 23:48:00 [facility] [id number] 2023-10-13 21:42:00 2023-10-13 23:48:00 Emergency Elen Benedict [facility] 1.840.114 350.1.13.10 4.2.7.2.686 [id number] [facility] 2023-09-27 19:20:00 2023-09-27 20:33:42 Outpatient R HARSH HARO [facility] [id number] [facility] 2023-09-27 19:20:00 2023-09-27 20:33:42 Urgent Care Harsh Haro Unknown, Attending [facility] 1.114 350.1.13.10 4.2.7.2.686 [id number] [facility] 2023-09-27 00:00:00 2023-09-27 00:00:00 Orders Only Doctor Unassigned, [place] [facility] 1.0.114 350.1.13.10 4.2.7.2.686 [id number] [facility] 2023-09-03 21:06:00 2023-09-04 00:27:00 Emergency X ELEN BENEDICT [facility] ERT [id number] [facility] 2023-09-03 21:06:00 2023-09-04 00:27:00 Emergency Elen Benedict [facility] 1.0.114 350.1.13.10 4.2.7.2.686 [id number] [facility] 2023-08-29 10:21:00 2023-08-29 12:04:00 Emergency X NICOLE HUGHES [facility] ERT [id number] [facility] 2023-08-29 10:21:00 2023-08-29 12:04:00 Emergency Gustavo Nicole [facility] 1..114 350.1.13.10 4.2.7.2.686 [id number] [facility] 2023-08-02 13:41:32 2023-08-02 13:41:[address] [facility] [id number] Leo Paul Aditya 2023-05-25 10:30:00 2023-05-25 10:30:00 Outpatient R KORTNEY TREJO CHERYAL [facility] [id number] [facility] 2023-05-06 10:30:00 2023-05-06 10:30:00 Outpatient R JOSETTE CHEUNG [facility] [id number] [facility] 2023-03-12 00:00:00 2023-03-12 00:00:00 Patient Secure Msg Kortney Trejo [facility] 1..114 350.1.13.10 4.2.7.2.686 [id number] [facility] 2023-02-13 20:40:00 2023-02-13 20:40:00 Urgent Care GreenSydnie Unknown, Attending [facility] 1.0.114 350.1.13.10 4.2.7.2.686 [id number] [facility] 2023-02-13 20:40:00 2023-02-13 20:26:50 Outpatient R SYDNIE ROQUE [facility] [id number] [facility] 2022-12-22 00:00:00 2022-12-22 00:00:00 (TEL) STLMLC STLMLC [id number] [facility] 2022-12-07 08:00:00 2022-12-07 08:00:00 Outpatient R KORTNEY TREJO CHERYAL [facility] [id number] [facility] 2022-11-05 10:30:00 2022-11-05 11:06:14 Outpatient R JOSETTE CHEUNG [facility] [id number] [facility] 2022-11-05 10:30:00 2022-11-05 11:06:14 Office Visit Josette Cheung [facility] 1.0.114 350.1.13.10 4.2.7.2.686 [id number] [facility] 2022-11-05 00:00:00 2022-11-05 00:00:00 Orders Only Doctor Unassigned, [place] [facility] 1.2.840.114 350.1.13.10 4.2.7.2.686 [id number] [facility] 2022-11-04 00:00:00 2022-11-04 00:00:00 Patient Secure Shayy Pugh [facility] 1.2840.114 350.1.13.10 4.2.7.2.686 [id number] [facility] 2022-10-29 00:00:00 2022-10-29 00:00:00 Telephone Josette Cheung [facility] 1.2840.114 350.1.13.10 4.2.7.2.686 [id number] [facility] 2022-10-21 10:45:00 2022-10-21 10:52:00 Outpatient R MEENAKORTNEY OQUENDOALEXYAMILA [facility] [id number] [facility] 2022-10-21 10:45:00 2022-10-21 10:52:00 [facility] 1.2840.114 350.1.13.10 4.2.7.2.686 [id number] [facility] 2022-10-15 10:00:00 2022-10-15 10:00:00 Outpatient R JOSETTE CHEUNG [facility] [id number] [facility] 2022-10-13 09:30:00 2022-10-13 09:34:04 Outpatient R ANTWANKORTNEY DRISCOLL M[facility]ASSAMBHUMIKA [facility] [id number] [facility] 2022-10-13 09:30:00 2022-10-13 09:34:04 [facility] 1.20.114 350.1.13.10 4.2.7.2.686 [id number] [facility] 2022-10-06 14:45:00 2022-10-06 14:45:00 Outpatient R ANTWANKORTNEY DRISCOLL MEENA[facility]ASSAMALEXYAMILA [facility] [id number] [facility] 2022-09-27 03:57:00 2022-09-28 15:45:00 Inpatient X JOSETTE CHEUNG [facility] [id number] [facility] 2022-09-27 03:57:00 2022-09-28 15:45:00 Hospital Encounter Josette Cheung [facility] 1.2840.114 350.1.13.10 4.2.7.2.686 [id number] [facility] 2022-09-27 11:12:00 2022-09-27 14:21:00 Anesthesia Event Lila Peterson Stacey [facility] 1.2.840.114 350.1.13.10 4.2.7.2.686 [id number] [facility] 2022-09-24 13:15:00 2022-09-24 13:30:00 Chief Inspector Visit Pob, Adc Lab Main Josette Cheung [facility] 1.2840.114 350.1.13.10 4.2.7.2.686 [id number] [facility] 2022-09-24 09:15:00 2022-09-24 09:51:57 Outpatient R [facility] [id number] [facility] 2022-09-24 09:15:00 2022-09-24 09:51:57 [facility] 1.2840.114 350.1.13.10 4.2.7.2.686 [id number] [facility] 2022-09-20 14:47:00 2022-09-20 16:05:00 Outpatient X JOSETTE CHEUNG [facility] [id number] [facility] 2022-09-20 14:47:00 2022-09-20 16:05:00 Emergency Josette Cheung [facility] 1.2.840.114 350.1.13.10 4.2.7.2.686 [id number] [facility] 2022-09-20 00:00:00 2022-09-20 00:00:00 Telephone [facility] 1.2.840.114 350.1.13.10 4.2.7.2.686 [id number] [facility] 2022-09-17 10:30:00 2022-09-17 10:37:48 Outpatient R JOSETTE CHEUNG [facility] [id number] [facility] 2022-09-17 10:30:00 2022-09-17 10:37:48 Routine Visit Josette Cheung [facility] 1.2.840.114 350.1.13.10 4.2.7.2.686 [id number] [facility] 2022-09-16 09:42:00 2022-09-16 11:30:00 Outpatient X JOSETTE CHEUNG [facility] [id number] [facility] 2022-09-16 09:42:00 2022-09-16 11:30:00 Emergency Josette Cheung [facility] 1.2.840.114 350.1.13.10 4.2.7.2.686 [id number] [facility] 2022-09-10 08:14:00 2022-09-10 10:42:00 Outpatient X JOSETTE CHEUNG [facility] [id number] [facility] 2022-09-10 08:14:00 2022-09-10 10:42:00 Emergency Vibha, [facility] 1.2.840.114 350.1.13.10 4.2.7.2.686 [id number] [facility] 2022-09-10 10:00:00 2022-09-10 10:00:00 Outpatient R KORTNEY TREJO CHERYAL [facility] [id number] [facility] 2022-09-09 10:00:00 2022-09-09 10:19:15 Outpatient R KORTNEY TREJO CHERYAL [facility] [id number] [facility] 2022-09-09 10:00:00 2022-09-09 10:19:15 Routine Visit Kortney Trejo [facility] 1.2.840.114 350.1.13.10 4.2.7.2.686 [id number] [facility] 2022-09-09 00:00:00 2022-09-09 00:00:[address] [facility] 1.2.840.114 350.1.13.10 4.2.7.2.686 [id number] [facility] 2022-09-08 00:00:00 2022-09-08 00:00:00 Nurse Triage Sarah [facility] 1.2.840.114 350.1.13.10 4.2.7.2.686 [id number] [facility] 2022-09-08 00:00:00 2022-09-08 00:00:00 [facility] 1.2.840.114 350.1.13.10 4.2.7.2.686 [id number] [facility] 2022-09-07 19:07:00 2022-09-07 21:15:00 Outpatient X ADUM, KIMBERLYN [facility] [id number] [facility] 2022-09-07 19:07:00 2022-09-07 21:15:00 Emergency AdumKimberlyn [facility] 1.2.840.114 350.1.13.10 4.2.7.2.686 [id number] [facility] 2022-09-06 08:15:00 2022-09-06 08:29:53 Chief Inspector Visit Ultrasound, Meche Greenfield [facility] 1.2.840.114 350.1.13.10 4.2.7.2.686 [id number] [facility] 2022-09-06 08:15:00 2022-09-06 08:15:00 Outpatient P JOLLY ARROYORashid [facility] [id number] [facility] 2022-09-06 00:00:00 2022-09-06 00:00:00 Telephone Migdalia Alberto [facility] 1.0.114 350.1.13.10 4.2.7.2.686 [id number] [facility] 2022-09-04 20:58:00 2022-09-04 22:00:00 Outpatient X LIBRA Alfredo, ELLIE RUIZSOL [facility] [id number] [facility] 2022-09-04 20:58:00 2022-09-04 22:00:00 Emergency Jarvis Mcqueen Marisol [facility] 1.840.114 350.1.13.10 4.2.7.2.686 [id number] [facility] 2022-09-04 00:00:00 2022-09-04 00:00:00 Nurse Triage Dena Manrique [facility] 1..114 350.1.13.10 4.2.7.2.686 [id number] [facility] 2022-09-02 04:41:00 2022-09-02 07:04:00 Outpatient P JOSETTE CHEUNG [facility] [id number] [facility] 2022-09-02 04:41:00 2022-09-02 07:04:00 Hospital Encounter Josette Cheung [facility] 1.840.114 350.1.13.10 4.2.7.2.686 [id number] [facility] 2022-09-01 15:45:00 2022-09-01 16:36:53 [facility] [id number] [facility] 2022-09-01 15:45:00 2022-09-01 16:36:53 Routine [address] Kortney Trejo [facility] 1.2.840.114 350.1.13.10 4.2.7.2.686 [id number] [facility] 2022-08-31 00:00:00 2022-08-31 00:00:00 [facility] 1.2.840.114 350.1.13.10 4.2.7.2.686 [id number] [facility] 2022-08-27 10:00:00 2022-08-27 11:13:25 Outpatient R JOSETTE CHEUNG [facility] [id number] [facility] 2022-08-27 10:00:00 2022-08-27 11:13:25 Routine Visit Josette Cheung [facility] 1.2.840.114 350.1.13.10 4.2.7.2.686 [id number] [facility] 2022-08-23 13:45:00 2022-08-23 13:45:00 Outpatient R JOSETTE CHEUNG [facility] [id number] [facility] 2022-08-22 17:21:00 2022-08-22 20:03:00 Outpatient X KIMBERLYN SR [facility] [id number] [facility] 2022-08-22 17:21:00 2022-08-22 20:03:00 Emergency AdKimberlyn rosa [facility] 1.2.840.114 350.1.13.10 4.2.7.2.686 [id number] [facility] 2022-08-22 00:00:00 2022-08-22 00:00:00 Orders Only Doctor Unassigned, [place] [facility] 1.2840.114 350.1.13.10 4.2.7.2.686 [id number] [facility] 2022-08-13 19:05:00 2022-08-13 20:17:00 Outpatient X ADKIMBERLYN ROSA [facility] [id number] [facility] 2022-08-13 19:05:00 2022-08-13 20:17:00 Emergency AdumKimberlyn Tesha [facility] 1.20.114 350.1.13.10 4.2.7.2.686 [id number] [facility] 2022-08-13 10:00:00 2022-08-13 10:00:00 Routine Visit Kortney Trejo [facility] 1..114 350.1.13.10 4.2.7.2.686 [id number] 134 [id number] [facility] 2022-08-13 10:00:00 2022-08-13 09:48:20 Outpatient R MAYAKORTNEY KORTNEY TRJEO [facility] [id number] [facility] 2022-08-11 12:30:00 2022-08-11 12:30:00 Outpatient R [facility] [id number] [facility] 2022-08-09 11:00:00 2022-08-09 11:17:45 Outpatient R MAYA KORTNEY KORTNEY TREJO [facility] [id number] [facility] 2022-08-09 11:00:00 2022-08-09 11:17:45 [facility] 1.20.114 350.1.13.10 4.2.7.2.686 [id number] 134 [id number] [facility] 2022-08-08 15:26:00 2022-08-08 16:35:00 Outpatient X JONATAN JOSETTE [facility] [id number] [facility] 2022-08-08 15:26:00 2022-08-08 16:35:00 Emergency Elen Benedict Vien [facility] 1..114 350.1.13.10 4.2.7.2.686 [id number] [id number] [facility] 2022-08-02 08:30:00 2022-08-02 09:00:00 Office Visit Kortney Trejo [facility] 1.114 350.1.13.10 4.2.7.2.686 [id number] 134 [id number] [facility] 2022-08-02 08:30:00 2022-08-02 08:30:00 Outpatient R KORTNEY TREJO CHERYAL [facility] [id number] [facility] 2022-07-31 07:18:00 2022-07-31 09:27:00 Emergency X JARVIS MCQUEEN [facility] E[facility] [id number] [facility] 2022-07-31 07:18:00 2022-07-31 09:27:00 Emergency KavonutJarvis J [facility] 1.84.114 350.1.13.10 4.2.7.2.686 [id number] [facility] 2022-07-30 13:30:00 2022-07-30 13:44:47 Outpatient R KORTNEY TREJO CHERYAL [facility] [id number] [facility] 2022-07-30 13:30:00 2022-07-30 13:44:47 Routine Visit Kortney Trejo [facility] 1..114 350.1.13.10 4.2.7.2.686 [id number] 134 [id number] [facility] 2022-07-29 21:45:00 2022-07-29 23:36:00 Outpatient X KIMBERLYN SR [facility] [id number] [facility] 2022-07-29 21:45:00 2022-07-29 23:36:00 Emergency Moriah Lay Vivian L [facility] 1.840.114 350.1.13.10 4.2.7.2.686 [id number] [facility] 2022-07-26 15:30:00 2022-07-26 15:30:00 Outpatient KORTNEY HILL CHERYAL [facility] [id number] [facility] 2022-07-26 00:00:00 2022-07-26 00:00:00 Telephone Josette Cheung [facility] 1..840.114 350.1.13.10 4.2.7.2.686 [id number] 134 [id number] [facility] 2022-07-24 18:27:00 2022-07-24 20:15:00 Outpatient X JOSETTE CHEUNG [facility] [id number] [facility] 2022-07-24 18:27:00 2022-07-24 20:15:00 Emergency Cheung Josette Pereyra [facility] 1.840.114 350.1.13.10 4.2.7.2.686 [id number] [facility] 2022-07-23 13:00:00 2022-07-23 13:31:03 Outpatient KORTNEY HILL CHERYAL [facility] [id number] [facility] 2022-07-23 13:00:00 2022-07-23 13:31:03 Routine Visit Kortney Trejo [facility] 1.2840.114 350.1.13.10 4.2.7.2.686 [id number] 134 [id number] [facility] 2022-07-23 00:00:00 2022-07-23 00:00:00 Telephone Josette Cheung [facility] 1.2.840.114 350.1.13.10 4.2.7.2.686 [id number] 134 [id number] [facility] 2022-07-22 00:00:00 2022-07-22 00:00:00 Telephone Josette Cheung [facility] 1.2840.114 350.1.13.10 4.2.7.2.686 [id number] 134 [id number] [facility] 2022-07-21 08:13:00 2022-07-21 11:00:00 Outpatient P JOSETTE CHEUNG [facility] [id number] [facility] 2022-07-21 08:13:00 2022-07-21 11:00:00 Hospital Encounter Josette Cheung [facility] 1..114 350.1.13.10 4.2.7.2.686 [id number] [facility] 2022-07-16 11:30:00 2022-07-16 12:01:54 Outpatient R JOSETTE CHEUNG [facility] [id number] [facility] 2022-07-16 11:30:00 2022-07-16 12:01:54 Routine Visit Josette Cheung [facility] 1.20.114 350.1.13.10 4.2.7.2.686 [id number] 134 [id number] [facility] 2022-07-16 00:00:00 2022-07-16 00:00:00 Orders Only Doctor Unassigned, [place] [facility] 1.2840.114 350.1.13.10 4.2.7.2.686 [id number] [facility] 2022-07-14 11:30:00 2022-07-14 12:03:26 Outpatient R ANTWANYAMILA KORTNEY MONCADAYAMILAKORTNEY [facility] [id number] [facility] 2022-07-14 11:30:00 2022-07-14 12:03:26 Office Visit Kortney Trejo [facility] 1.0.114 350.1.13.10 4.2.7.2.686 [id number] 134 [id number] [facility] 2022-07-10 19:56:00 2022-07-11 10:46:00 Outpatient X SAM BRADLEY [facility] [id number] General acute hospital 2022-07-10 19:56:00 2022-07-11 10:46:00 Emergency Sam Bradley [facility] 1.0.114 350.1.13.10 4.2.7.2.686 [id number] 083 [id number] [facility] 2022-07-10 00:00:00 2022-07-10 00:00:00 Orders Only Doctor Unassigned, [place] [facility] 1.0.114 350.1.13.10 4.2.7.2.686 [id number] [facility] 2022-07-08 08:45:00 2022-07-08 09:00:00 Chief Inspector Visit Pob, Adc Lab Main Kortney Trejo [facility] 1..114 350.1.13.10 4.2.7.2.686 [id number] [facility] 2022-07-08 08:45:00 2022-07-08 08:45:00 Outpatient R KORTNEY TREJO CHERYAL [facility] [id number] [facility] 2022-06-30 10:30:00 2022-06-30 10:45:05 Outpatient R KORTNEY TREJO CHERYAL [facility] [id number] [facility] 2022-06-30 10:30:00 2022-06-30 10:45:05 Routine Visit Kortney Trejo [facility] 1..114 350.1.13.10 4.2.7.2.686 [id number] 134 [id number] [facility] 2022-06-30 10:30:00 2022-06-30 10:30:00 Outpatient R KORTNEY TREJO CHERYAL [facility] [id number] [facility] 2022-06-30 10:30:00 2022-06-30 10:30:00 Outpatient R KORTNEY TREJO CHERYAL [facility] [id number] [facility] 2022-06-28 14:15:00 2022-06-28 14:30:00 Chief Inspector Visit Pogaurav, [place] Lab Main Kortney Trejo [facility] 1.840.114 350.1.13.10 4.2.7.2.686 [id number] [facility] 2022-06-28 14:15:00 2022-06-28 14:15:00 Outpatient R KORTNEY TREJO [facility] [id number] [facility] 2022-06-28 00:00:00 2022-06-28 00:00:00 Orders Only Doctor Unassigned, [place] [facility] 1.840.114 350.1.13.10 4.2.7.2.686 [id number] [facility] 2022-06-25 11:30:00 2022-06-25 11:30:00 Office Visit Tritschler, [facility] 1.2.840.114 350.1.13.10 4.2.7.2.686 [id number] 134 [id number] [facility] 2022-06-25 11:30:00 2022-06-25 11:26:42 Outpatient R DALE [facility]RICK [facility] [id number] [facility] 2022-06-24 09:30:00 2022-06-24 09:30:00 Outpatient R JOSETTE CHEUNG [facility] [id number] [facility] 2022-06-24 00:00:00 2022-06-24 00:00:00 Telephone Meenajere [facility] 1.2.840.114 350.1.13.10 4.2.7.2.686 [id number] 134 [id number] [facility] 2022-06-22 00:00:00 2022-06-22 00:00:00 Telephone Josette Cheung [facility] 1.2.840.114 350.1.13.10 4.2.7.2.686 [id number] 134 [id number] [facility] 2022-06-18 10:30:00 2022-06-18 11:52:49 Chief Inspector Visit 2, [facility] Migdalia Vazquez [facility] 1.2840.114 350.1.13.10 4.2.7.2.686 [id number] [facility] 2022-06-18 10:30:00 2022-06-18 10:30:00 Outpatient MIGDALIA WADE SHANNON [facility] [id number] [facility] 2022 14:00:00 2022 15:15:53 Outpatient R JOSETTE CHEUNG [facility] [id number] [facility] 2022 14:00:00 2022 15:15:53 Routine Visit Josette Cheung [facility] 1.2.840.114 350.1.13.10 4.2.7.2.686 [id number] 134 [id number] [facility] 2022 00:00:00 2022 00:00:00 Orders Only Doctor Unassigned, [place] [facility] 1.2.840.114 350.1.13.10 4.2.7.2.686 [id number] [facility] 2022-06-02 13:30:00 2022-06-02 14:07:33 Outpatient R KORTNEY TREJO CHERYAL [facility] [id number] [facility] 2022-06-02 13:30:00 2022-06-02 14:07:33 Routine Visit Kortney Trejo [facility] 1.2840.114 350.1.13.10 4.2.7.2.686 [id number] 134 [id number] [facility] 2022-05-21 08:00:00 2022-05-21 08:59:22 Chief Inspector Visit 2, [facility] Us Room Meche Arroyo [facility] 1.2840.114 350.1.13.10 4.2.7.2.686 [id number] [facility] 2022-05-21 08:00:00 2022-05-21 08:00:00 Outpatient P DINA JOLLYRashid [facility] [id number] [facility] 2022-05-18 10:00:00 2022-05-18 10:00:00 Outpatient R LEONOR MUELLER [facility] [id number] [facility] 2022-05-17 14:00:00 2022-05-17 14:00:00 Outpatient P [facility] [id number] [facility] 2022-05-17 14:00:00 2022-05-17 14:00:00 Outpatient P [facility] [id number] [facility] 2022-05-06 00:00:00 2022-05-06 00:00:00 Telephone Kortney Trejo [facility] 1.2.840.114 350.1.13.10 4.2.7.2.686 [id number] 134 [id number] [facility] 2022-05-05 13:30:00 2022-05-05 14:17:16 Outpatient R KORTNEY TREJO [facility] OQUEND[facility] [id number] [facility] 2022-05-05 13:30:00 2022-05-05 14:17:16 Routine Visit Kortney Trejo [facility] 1.2.840.114 350.1.13.10 4.2.7.2.686 [id number] 134 [id number] [facility] 2022-05-03 00:00:00 2022-05-03 00:00:00 Case Management [facility] 1.2.840.114 350.1.13.10 4.2.7.2.686 [id number] 134 [id number] [facility] 2022-04-29 00:00:00 2022-04-29 00:00:[address] [facility] 1.2.840.114 350.1.13.10 4.2.7.2.686 [id number] 134 [id number] [facility] 2022-04-28 00:00:00 2022-04-28 00:00:00 Refill [facility] 1.2.840.114 350.1.13.10 4.2.7.2.686 [id number] 134 [id number] [facility] 2022-04-27 00:00:00 2022-04-27 00:00:00 Patient Secure Msg Kortney Trejo [facility] 1.2.840.114 350.1.13.10 4.2.7.2.686 [id number] 134 [id number] [facility] 2022-04-23 00:00:00 2022-04-23 00:00:00 [facility] 1.2.840.114 350.1.13.10 4.2.7.2.686 [id number] 134 [id number] [facility] 2022-04-14 09:15:00 2022-04-14 09:19:38 Outpatient R KORTNEY TREJO [facility] [id number] [facility] 2022-04-14 09:15:00 2022-04-14 09:19:38 Routine Visit Kortney Trejo [facility] 1.2.840.114 350.1.13.10 4.2.7.2.686 [id number] 134 [id number] [facility] 2022-04-11 05:57:00 2022-04-11 06:10:00 Emergency X ESTHER GARZA [facility] E[facility] [id number] [facility] 2022-04-11 05:57:00 2022-04-11 06:10:00 Emergency Esther Garza [facility] 1.2.840.114 350.1.13.10 4.2.7.2.686 [id number] [facility] 2022-04-11 00:00:00 2022-04-11 00:00:00 Nurse Triage Truong Leo [facility] 1.2.840.114 350.1.13.10 4.2.7.2.686 [id number] [facility] 2022-04-09 00:00:00 2022-04-09 00:00:00 Orders Only Doctor Unassigned, [place] [facility] 1.20.114 350.1.13.10 4.2.7.2.686 [id number] [facility] 2022-04-07 09:00:00 2022-04-07 09:31:10 Outpatient R KORTNEY [facility]RE[facility] [id number] [facility] 2022-04-07 09:00:00 2022-04-07 09:31:10 [facility] 1.114 350.1.13.10 4.2.7.2.686 [id number] 134 [id number] [facility] 2022-04-07 09:00:00 2022-04-07 09:00:00 Outpatient R KORTNEY TREJO [facility] [id number] [facility] 2022-04-05 08:26:00 2022-04-05 08:44:00 Emergency X ESTHER GARZA [facility] ERT [id number] [facility] 2022-04-05 08:26:00 2022-04-05 08:44:00 Emergency Esther Garza [facility] 1..114 350.1.13.10 4.2.7.2.686 [id number] [id number] [facility] 2022-04-05 00:00:00 2022-04-05 00:00:00 Letter (Out) Cecy Wesley [facility] 1.2.114 350.1.13.10 4.2.7.2.686 [id number] [facility] 2022-04-05 00:00:00 2022-04-05 00:00:00 Orders Only Doctor Unassigned, [place] [facility] 1.2.114 350.1.13.10 4.2.7.2.686 [id number] [facility] 2022-04-04 16:20:00 2022-04-04 16:46:38 Outpatient R ERVIN LEONOR [facility] [id number] [facility] 2022-04-04 16:20:00 2022-04-04 16:46:38 Urgent Care [facility] OFF[facility] BUILD[facility] 1.2.840.114 350.1.13.10 4.2.7.2.686 [id number] [facility] 2022-04-01 00:00:00 2022-04-01 00:00:[address]ung [facility] BUILDING 1..840.114 350.1.13.10 4.2.7.2.686 [id number] 134 [id number] [facility] 2022-04-01 00:00:00 2022-04-01 00:00:00 Kortney Lopez [facility] 1.2.840.114 350.1.13.10 4.2.7.2.686 [id number] 134 [id number] [facility] 2022-03-31 09:30:00 2022-03-31 09:45:00 Chief Inspector Visit Lab, Marcos Trejo [facility] 1.2.840.114 350.1.13.10 4.2.7.2.686 [id number] [facility] 2022-03-31 09:30:00 2022-03-31 09:30:00 Outpatient R [facility] [id number] [facility] 2022-03-31 09:30:00 2022-03-31 09:30:00 Out[id number] 2022-03-31 00:00:00 2022-03-31 00:00:00 Orders Only Doctor Unassigned, [place] [facility] 1.2.840.114 350.1.13.10 4.2.7.2.686 [id number] [facility] 2022-03-24 10:00:00 2022-03-24 10:13:45 Outpatient R MEENAKORTNEY OQUENDO [facility] [id number] [facility] 2022-03-24 10:00:00 2022-03-24 10:13:[address] [facility] 1.2.840.114 350.1.13.10 4.2.7.2.686 [id number] 134 [id number] [facility] 2022-03-24 00:00:00 2022-03-24 00:00:00 Letter (Out) AntwanKortney driscoll [facility] 1.2840.114 350.1.13.10 4.2.7.2.686 [id number] 134 [id number] [facility] 2022-03-20 20:41:00 2022-03-21 01:22:00 Emergency X ELPIDIO MARTINEZ [facility] ERT [id number] [facility] 2022-03-20 20:41:00 2022-03-21 01:22:00 Emergency Elpidio Martinez S [facility] 1.2840.114 350.1.13.10 4.2.7.2.686 [id number] [facility] 2022-03-17 00:00:00 2022-03-17 00:00:00 Outpatient R MAYADALEPATRICK [facility] [id number] [facility] 2022-03-12 00:00:00 2022-03-12 00:00:00 Telephone Josette Cheung Roddy [facility] 1.2.840.114 350.1.13.10 4.2.7.2.686 [id number] 134 [id number] [facility] 2022-03-10 13:00:00 2022-03-10 13:44:04 Outpatient R KORTNEY TREJO [facility] [id number] [facility] 2022-03-10 13:00:00 2022-03-10 13:44:04 [facility] 1..840.114 350.1.13.10 4.2.7.2.686 [id number] 134 [id number] [facility] 2022-03-10 13:00:00 2022-03-10 13:00:00 Outpatient R KORTNEY TREJO [facility] [id number] [facility] 2022-03-02 00:00:00 2022-03-02 00:00:00 Patient Secure Msg Maya [facility] 1.2.840.114 350.1.13.10 4.2.7.2.686 [id number] 134 [id number] [facility] 2022-03-01 15:00:00 2022-03-01 15:33:04 Outpatient R KORTNEY TREJO [facility] [id number] [facility] 2022-03-01 15:00:00 2022-03-01 15:33:04 [facility] Dalepatrick [facility] 1.2.840.114 350.1.13.10 4.2.7.2.686 [id number] 134 [id number] [facility] 2022-03-01 00:00:00 2022-03-01 00:00:00 Letter (Out) Maya Kortney [facility] 1.2840.114 350.1.13.10 4.2.7.2.686 [id number] 134 [id number] [facility] 2022-02-24 11:06:00 2022-02-24 12:11:00 Emergency X KAI LARKIN [facility] ERT [id number] [facility] 2022-02-24 11:06:00 2022-02-24 12:11:00 Emergency X KAI LARKIN [facility] ERT [id number] [facility] 2022-02-24 11:06:00 2022-02-24 12:11:00 Emergency Kai Larkin [facility] 1.2.840.114 350.1.13.10 4.2.7.2.686 [id number] [facility] 2022-02-21 13:39:00 2022-02-21 14:32:00 Emergency X ELPIDIO MARTINEZ [facility] ERT [id number] [facility] 2022-02-21 13:39:00 2022-02-21 14:32:00 Emergency Elpidio Martinez S [facility] 1.2.840.114 350.1.13.10 4.2.7.2.686 [id number] [facility] 2022-02-19 00:00:00 2022-02-19 00:00:[address] [facility] 1.2.840.114 350.1.13.10 4.2.7.2.686 [id number] 134 [id number] [facility] 2022-02-16 09:00:00 2022-02-16 09:00:00 Outpatient R KORTNEY TREJOBASSAMALEXDALE DRISCOLLPATRICK [facility] [id number] [facility] 2022-02-15 09:30:00 2022-02-15 10:32:37 Outpatient R KORTNEY TREJO [facility] [id number] [facility] 2022-02-15 09:30:00 2022-02-15 10:32:37 Routine Visit Kortney Trejo [facility] 1.2840.114 350.1.13.10 4.2.7.2.686 [id number] [facility] 2022-02-14 13:00:00 2022-02-14 13:20:00 Urgent Care Osmany [facility] MEDICAL OFFICE BUILDING 1.2.114 350.1.13.10 4.2.7.2.686 [id number] [facility] 2022-02-14 13:00:00 2022-02-14 13:00:00 Outpatient R [facility]ANY [facility] [id number] [facility] 2022-02-14 00:00:00 2022-02-14 00:00:00 Letter (Out) [facility]smany [facility] OFF[facility] BUILD[facility] 1.20.114 350.1.13.10 4.2.7.2.686 [id number] [facility] 2022-02-12 00:00:00 2022-02-12 00:00:00 [facility] 1.20.114 350.1.13.10 4.2.7.2.686 [id number] 134 [id number] [facility] 2022-02-11 13:00:00 2022-02-11 13:15:00 Chief Inspector Visit Lab, Marcos Almeida Maya [facility] 1.2840.114 350.1.13.10 4.2.7.2.686 [id number] [facility] 2022-02-11 13:00:00 2022-02-11 13:00:00 [facility] [id number] [facility] 2022-02-10 13:00:00 2022-02-10 13:25:06 [facility]patient [facility] [id number] [facility] 2022-02-10 13:00:00 2022-02-10 13:25:06 Routine Visit [facility] 1.2840.114 350.1.13.10 4.2.7.2.686 [id number] [facility] 2022-02-10 00:00:00 2022-02-10 00:00:00 Patient Secure John Gomez [facility] 1.2.840.114 350.1.13.10 4.2.7.2.686 [id number] [facility] 2022-02-09 13:00:00 2022-02-09 13:15:00 Chief Inspector Visit Lab, [facility] 1.2840.114 350.1.13.10 4.2.7.2.686 [id number] [facility] 2022-02-09 13:00:00 2022-02-09 13:00:00 Outpatient R [facility]ORTNYE TRJEO [facility] [id number] [facility] 2022-02-09 09:00:00 2022-02-09 09:36:35 Routine Visit [facility] 1.2.840.114 350.1.13.10 4.2.7.2.686 [id number] [facility] 2022-02-05 13:19:16 2022-02-05 23:59:00 Outpatient R KORTNEY TREJO CHERYAL [facility] [id number] [facility] 2022-02-05 13:19:16 2022-02-05 23:59:00 Hospital Encounter Kortney Trejo [facility] 1.2.840.114 350.1.13.10 4.2.7.2.686 [id number] [facility] 2022-02-05 00:00:00 2022-02-05 00:00:00 Orders Only Doctor Unassigned, [place] [facility] 1.2.840.114 350.1.13.10 4.2.7.2.686 [id number] [facility] 2022-02-03 14:22:00 2022-02-03 17:02:00 Emergency X NIXON PERDUE [facility] ERT [id number] [facility] 2022-02-03 14:22:00 2022-02-03 17:02:00 Emergency Nixon Perdue [facility] 1.2.840.114 350.1.13.10 4.2.7.2.686 [id number] [facility] 2022-02-03 08:00:00 2022-02-03 08:15:00 Chief Inspector Visit Pob, Adc Lab Main Kortney Trejo [facility] BUILD[facility] 1.2.840.114 350.1.13.10 4.2.7.2.686 [id number] [facility] 2022-02-03 08:00:00 2022-02-03 08:00:00 Outpatient R KORTNEY TREJO CHERYAL [facility] [id number] [facility] 2022-02-03 00:00:00 2022-02-03 00:00:00 Patient Secure Msg John Cain [facility] 1..840.114 350.1.13.10 4.2.7.2.686 [id number] [facility] 2022-02-02 09:00:00 2022-02-02 09:20:46 Outpatient [facility] [id number] [facility] 2022-02-02 09:00:00 2022-02-02 09:20:46 [facility] 1..840.114 350.1.13.10 4.2.7.2.686 [id number] [facility] 2022-02-02 09:00:00 2022-02-02 09:20:46 Outpatient R MEENAKORTNEY OQUENDO [facility] [id number] [facility] 2022-02-02 00:00:00 2022-02-02 00:00:00 Patient Secure Msg Maya [facility] 1.2.840.114 350.1.13.10 4.2.7.2.686 [id number] 134 [id number] [facility] 2022-02-01 13:30:00 2022-02-01 17:02:00 Emergency X LARKINKAI [facility] ERT [id number] [facility] 2022-02-01 13:30:00 2022-02-01 17:02:00 Emergency Kai Larkin [facility] 1..840.114 350.1.13.10 4.2.7.2.686 [id number] [facility] 2022-02-01 00:00:00 2022-02-01 00:00:00 Telephone Maya [facility] 1..114 350.1.13.10 4.2.7.2.686 [id number] 134 [id number] [facility] 2022-02-01 00:00:00 2022-02-01 00:00:00 Case Management Kortney Trejo [facility] 1..114 350.1.13.10 4.2.7.2.686 [id number] 134 [id number] [facility] 2022-01-30 09:15:00 2022-01-30 09:30:00 Chief Inspector Visit Pob, Adc Lab Main Kortney Trejo [facility] NAL BUILDING 1.84.114 350.1.13.10 4.2.7.2.686 [id number] [facility] 2022-01-30 09:15:00 2022-01-30 09:15:00 Outpatient R KORTNEY TREJO [facility] [id number] [facility] 2022-01-29 00:00:00 2022-01-29 00:00:00 Patient Secure Msg Doctor Unassigned, [place] [facility] 1.0.114 350.1.13.10 4.2.7.2.686 [id number] [id number] [facility] 2022-01-27 09:00:00 2022-01-27 09:15:00 Chief Inspector Visit Lab, Marcos - Kortney [facility] 1.840.114 350.1.13.10 4.2.7.2.686 [id number] [facility] 2022-01-27 09:00:00 2022-01-27 09:00:00 Outpatient R KORTNEY TREJO [facility] [id number] [facility] 2022-01-27 00:00:00 2022-01-27 00:00:00 Case Management Maya [facility] 1.2.840.114 350.1.13.10 4.2.7.2.686 [id number] 134 [id number] [facility] 2022-01-26 09:00:00 2022-01-26 09:42:07 Outpatient [facility] [id number] [facility] 2022-01-26 09:00:00 2022-01-26 09:42:07 Initial Visit Maya [facility] 1.2.840.114 350.1.13.10 4.2.7.2.686 [id number] 134 [id number] [facility] 2022-01-26 00:00:00 2022-01-26 00:00:00 Patient Secure viktoria AntJohn [facility] 1.2.840.114 350.1.13.10 4.2.7.2.686 [id number] 134 [id number] [facility] 2022-01-26 00:00:00 2022-01-26 00:00:00 [facility]phone [facility] 1.2.840.114 350.1.13.10 4.2.7.2.686 [id number] 134 [id number] [facility] 2022-01-25 10:30:00 2022-01-25 10:45:00 Chief Inspector Visit Lab, [facility] 1.2.840.114 350.1.13.10 4.2.7.2.686 [id number] [facility] 2022-01-25 10:30:00 2022-01-25 10:30:00 Outpatient R NYDIA PHILLIPS [facility] [id number] [facility] 2022-01-25 10:00:00 2022-01-25 10:09:56 Urgent Care Erika Phillipstany [facility] DANTE?[facility] 1.2.840.114 350.1.13.10 4.2.7.2.686 [id number] 370 [id number] [facility] 2022-01-25 00:00:00 2022-01-25 00:00:00 Patient Secure g Erika PhillipsCount includes the [facility] DANTE?[facility] 1..840.114 350.1.13.10 4.2.7.2.686 [id number] 370 [id number] [facility] 2022-01-12 00:00:00 2022-01-12 00:00:00 OFFICE VISIT EST PT LEVEL 3 STLMLC STLMLC [id number] [facility] 2022-01-11 00:00:00 2022-01-11 00:00:00 (TEL) STLMLC STLMLC [id number] [facility] 2021-12-18 18:00:00 2021-12-18 18:00:00 Outpatient R NYDIA PHILLIPS [facility] [id number] [facility] 2021-12-14 00:00:00 2021-12-14 00:00:00 Patient Secure g Josette Cheung [facility] BUILDING 1.2.840.114 350.1.13.10 4.2.7.2.686 [id number] 134 [id number] [facility] 2021-12-11 00:00:00 2021-12-11 00:00:00 Patient Secure g Josette Cheung [facility] BUILDING 1.2.840.114 350.1.13.10 4.2.7.2.686 [id number] 134 [id number] [facility] 2021-10-22 11:00:00 2021-10-22 11:00:00 Outpatient R EZRA DELEON [facility] [id number] [facility] 2021-10-22 00:00:00 2021-10-22 00:00:00 Refill Raymond [facility] DANTE?[facility] 1.2.840.114 350.1.13.10 4.2.7.2.686 [id number] 370 [id number] [facility] 2021-10-15 11:40:00 2021-10-15 13:06:17 Outpatient R RAYMOND SYDNIE [facility] [id number] [facility] 2021-10-15 11:40:00 2021-10-15 12:00:00 [facility] Care [facility] 1.840.114 350.1.13.10 4.2.7.2.686 [id number] 370 [id number] [facility] 2021-10-12 00:00:00 2021-10-12 00:00:00 OFFICE VISIT ESTAB PT LEVEL 1 STLMLC STLMLC [id number] [facility] 2021-10-12 00:00:00 2021-10-12 00:00:00 (TEL) STLMLC STLMLC [id number] [facility] 2021-09-10 00:00:00 2021-09-10 00:00:00 RefLeonor Montanez [facility] 1..840.114 350.1.13.10 4.2.7.2.686 [id number] 370 [id number] [facility] 2021-07-31 00:00:00 2021-07-31 00:00:00 Patient Secure Msg Josette Cheung [facility] PROFESSIO NAL BUILDING 1..840.114 350.1.13.10 4.2.7.2.686 [id number] 134 [id number] [facility] 2021-07-30 00:00:00 2021-07-30 00:00:00 Telephone Josette Cheung [facility] Professio nal Building 1.2.840.114 350.1.13.10 4.2.7.2.686 [id number] 134 [id number] [facility] 2021-07-29 19:42:00 2021-07-29 21:40:00 Emergency Elen Beneditc [facility] 1.2.840.114 350.1.13.10 4.2.7.2.686 [id number] [id number] [facility] 2021-07-19 00:00:00 2021-07-19 00:00:00 Refill Erika Phillipstany [facility]?Silvio pérez Medical Office Building 1.2.840.114 350.1.13.10 4.2.7.2.686 [id number] 370 [id number] [facility] 2021-07-14 17:18:01 2021-07-14 17:47:01 Urgent Care Jacqueline [facility] Medical Office Building 1.2.840.114 350.1.13.10 4.2.7.2.686 [id number] 370 [id number] [facility] 2021-07-14 17:40:00 2021-07-14 17:40:00 Outpatient NYDIA BELLAMY [facility] [id number] [facility] 2021-07-14 10:00:00 2021-07-14 10:00:00 Outpatient R NYDIA PHILLIPS [facility] [id number] [facility] 2021-07-10 00:00:00 2021-07-10 00:00:00 OFFICE VISIT EST PT LEVEL 3 STLMLC STLMLC [id number] [facility] 2021-07-03 15:00:00 2021-07-03 15:00:00 Outpatient ELLE HERNANDEZ [facility] [id number] [facility] 2021-07-03 00:00:00 2021-07-03 00:00:00 Patient Secure Msg Elle Samuels [facility] 1..114 350.1.13.10 4.2.7.2.686 [id number] [facility] 2021-06-30 11:55:40 2021-06-30 12:25:40 Office Visit Elle Samuels [facility] 1.0.114 350.1.13.10 4.2.7.2.686 [id number] 144 [id number] [facility] 2021-06-30 09:02:52 2021-06-30 09:22:31 Urgent Care Ervin [facility]?Silvio ospina Medical Office Building 1..114 350.1.13.10 4.2.7.2.686 [id number] [facility] 2021-06-30 09:00:00 2021-06-30 09:00:00 Outpatient R ERVIN [facility] [id number] [facility] 2021-06-22 00:00:00 2021-06-22 00:00:00 Letter (Out) [facility] ..114 350.1.13.10 4.2.7.2.686 [id number] [id number] [facility] 2021-06-22 00:00:00 2021-06-22 00:00:00 Letter (Out) [facility] 1..114 350.1.13.10 4.2.7.2.686 [id number] [id number] [facility] 2021-06-22 00:00:00 2021-06-22 00:00:00 Patient Secure Msg Doctor Unassigned, [place] [facility] 1.2.840.114 350.1.13.10 4.2.7.2.686 [id number] [facility] 2021-06-21 15:13:00 2021-06-21 16:17:00 Emergency Shanika Joaquin [facility] 1.2.840.114 350.1.13.10 4.2.7.2.686 [id number] [id number] [facility] 2021-06-21 15:13:00 2021-06-21 16:17:00 Emergency Shanika Joaquin [facility] 1.2.840.114 350.1.13.10 4.2.7.2.686 [id number] [id number] [facility] 2021-06-20 12:17:23 2021-06-20 13:00:14 Urgent Care Delvis Kaye, [facility]?Silvio [facility] Medical Office Building 1.2840.114 350.1.13.10 4.2.7.2.686 [id number] 370 [id number] [facility] 2021-06-20 12:20:00 2021-06-20 12:20:00 Outpatient Lila ROQUE [facility] [id number] [facility] 2021-06-20 00:00:00 2021-06-20 00:00:00 Orders Only Doctor Unassigned, [place] [facility] 1.2.840.114 350.1.13.10 4.2.7.2.686 [id number] [id number] [facility] 2021-06-20 00:00:00 2021-06-20 00:00:00 Orders Only Doctor Unassigned, [place] [facility] 1.2.840.114 350.1.13.10 4.2.7.2.686 [id number] [facility] 2021-06-13 17:45:00 2021-06-13 17:45:00 Outpatient R ERIKA PHILLIPSTANY [facility] [id number] [facility] 2021-06-13 17:08:31 2021-06-13 17:23:31 Laboratory Only Only, [place]cos Db [facility]?Silvio ospina Medical Office Building 1..840.114 350.1.13.10 4.2.7.2.686 [id number] 370 [id number] [facility] 2021-04-14 08:30:00 2021-04-14 08:30:00 Outpatient R CHRISTIANO ANGELES [facility] [id number] [facility] 2021-04-13 00:00:00 2021-04-13 00:00:00 RefJerod Victoria [facility] Office Building One 1..840.114 350.1.13.10 4.2.7.2.686 [id number] [facility] 2021-04-12 12:00:26 2021-04-12 13:54:05 Urgent Care Provider, [facility] Krysta Mckeon [facility] Office Building One 1..840.114 350.1.13.10 4.2.7.2.686 [id number] [facility] 2021-04-12 12:00:00 2021-04-12 12:00:00 Outpatient R KRYSTA MCKEON [facility] [id number] [facility] 2021-04-09 00:00:00 2021-04-09 00:00:00 OFFICE VISIT ESTAB PT LEVEL 4 STLMLC STLMLC [id number] [facility] 2021-04-01 00:00:00 2021-04-01 00:00:00 Patient Secure MsJosette Chang [facility] 1..840.114 350.1.13.10 4.2.7.2.686 [id number] 134 [id number] [facility] 2021-03-18 00:00:00 2021-03-18 00:00:00 (TEL) STLMLC STLMLC [id number] [facility] 2021-03-11 00:00:00 2021-03-11 00:00:00 (WEB) STLMLC STLMLC [id number] [facility] 2021-03-05 00:00:00 2021-03-05 00:00:00 OFFICE VISIT EST PT LEVEL 3 STLMLC STLMLC [id number] [facility] 2021-03-04 00:00:00 2021-03-04 00:00:00 Patient Secure g Josette Cheung [facility] 1.2.840.114 350.1.13.10 4.2.7.2.686 [id number] 134 [id number] [facility] 2021-02-04 00:00:00 2021-02-04 00:00:00 PREV VISIT EST AGE 18-39 STLMLC STLMLC [id number] [facility] 2021-01-05 00:00:00 2021-01-05 00:00:00 Outpatient STLMLC STLMLC [id number] [facility] 2020-12-30 00:00:00 2020-12-30 00:00:00 Patient Outreach Farzad Vazquez [facility] 1.2.840.114 350.1.13.10 4.2.7.2.686 [id number] [facility] 2020-12-03 00:00:00 2020-12-03 00:00:00 Patient Secure g Josette Cheung [facility] 1.2.840.114 350.1.13.10 4.2.7.2.686 [id number] 134 [id number] [facility] 2020-11-04 00:00:00 2020-11-04 00:00:00 Outpatient STLMLC STLMLC [id number] [facility] 2020-11-03 00:00:00 2020-11-03 00:00:00 Outpatient STLMLC STLMLC [id number] [facility] 2020-10-15 00:00:00 2020-10-15 00:00:00 Telephone Christiano Angeles [facility] Building 1.2.840.114 350.1.13.10 4.2.7.2.686 [id number] 134 [id number] [facility] 2020-10-15 00:00:00 2020-10-15 00:00:00 Patient Secure Msg Doctor Unassigned, [place] [facility] 1.2.840.114 350.1.13.10 4.2.7.2.686 [id number] 134 [id number] [facility] 2020-10-15 00:00:00 2020-10-15 00:00:00 Telephone Christiano Angeles [facility] 1.2.840.114 350.1.13.10 4.2.7.2.686 [id number] 134 [id number] 2020-10-14 00:00:00 2020-10-14 00:00:00 Telephone Christiano Angeles [facility] Building 1.2.840.114 350.1.13.10 4.2.7.2.686 [id number] 134 [id number] [facility] 2020-10-14 00:00:00 2020-10-14 00:00:00 Case Management Christiano Angeles [facility] Building 1.2.840.114 350.1.13.10 4.2.7.2.686 [id number] 134 [id number] [facility] 2020-10-14 00:00:00 2020-10-14 00:00:00 Case Management Christiano Angeles [facility] 1.2.840.114 350.1.13.10 4.2.7.2.686 [id number] 134 [id number] 2020-10-14 00:00:00 2020-10-14 00:00:00 Telephone Bridgette [facility] 1.2.840.114 350.1.13.10 4.2.7.2.686 [id number] 134 [id number] 2020-10-06 18:51:56 2020-10-06 23:59:00 [facility] 1.2.840.114 350.1.13.10 4.2.7.2.686 [id number] [facility] 2020-10-06 18:51:56 2020-10-06 23:59:00 [facility] 1.2.840.114 350.1.13.10 4.2.7.2.686 [id number] 2020-10-06 00:00:00 2020-10-06 00:00:00 Outpatient R [facility] [id number] [facility] 2020-10-06 00:00:00 2020-10-06 00:00:00 Orders Only Doctor Unassigned, [place] [facility] 1.2.840.114 350.1.13.10 4.2.7.2.686 [id number] [id number] [facility] 2020-10-06 00:00:00 2020-10-06 00:00:00 Orders Only Doctor Unassigned, [place] [facility] 1.2.840.114 350.1.13.10 4.2.7.2.686 [id number] [id number] 2020-10-01 00:00:00 2020-10-01 00:00:00 Orders Only Doctor Unassigned, [place] [facility] 1.2.840.114 350.1.13.10 4.2.7.2.686 [id number] [id number] [facility] 2020-10-01 00:00:00 2020-10-01 00:00:00 Orders Only Doctor Unassigned, [place] [facility] 1.2840.114 350.1.13.10 4.2.7.2.686 [id number] 2020-09-30 10:09:30 2020-09-30 11:23:11 Office Visit Bridgette Christiano RandallmariyaKimberlyn [facility] 1.840.114 350.1.13.10 4.2.7.2.686 [id number] 134 [id number] [facility] 2020-09-30 10:09:30 2020-09-30 11:23:11 Office Visit DavidChristiano lucas [facility] 1.84.114 350.1.13.10 4.2.7.2.686 [id number] 134 [id number] 2020-09-30 10:00:00 2020-09-30 10:00:00 Outpatient KIMBERLYN GOLDBERG [facility] [id number] [facility] 2020-09-29 00:00:00 2020-09-29 00:00:00 Patient Secure Msg Josette Cheung [facility] 1..840.114 350.1.13.10 4.2.7.2.686 [id number] 134 [id number] [facility] 2020-09-29 00:00:00 2020-09-29 00:00:00 Patient Secure Msg Josette Cheung [facility] 1.2.840.114 350.1.13.10 4.2.7.2.686 [id number] 134 [id number] [facility] 2020-09-29 00:00:00 2020-09-29 00:00:00 Patient Secure Msg Tami Cheungen [facility] 1.2.840.114 350.1.13.10 4.2.7.2.686 [id number] 134 [id number] [facility] 2020-09-25 00:00:00 2020-09-25 00:00:00 Outpatient STLMLC STLMLC [id number] [facility] 2020-09-23 00:00:00 2020-09-23 00:00:00 Outpatient STLMLC STLMLC [id number] [facility] 2020-09-23 00:00:00 2020-09-23 00:00:00 Outpatient STLMLC STLMLC [id number] [facility] 2020-09-18 09:00:00 2020-09-18 09:00:00 Outpatient CHRISTIANO NAIDU [facility] [id number] [facility] 2020-09-18 00:00:00 2020-09-18 00:00:00 Outpatient STLMLC STLMLC [id number] [facility] 2020-09-17 00:00:00 2020-09-17 00:00:00 Patient Secure Josette Davis [facility] 1.2.840.114 350.1.13.10 4.2.7.2.686 [id number] [facility] 2020-09-03 00:00:00 2020-09-03 00:00:00 Outpatient STLMLC STLMLC [id number] [facility] 2020-09-02 00:00:00 2020-09-02 00:00:00 Outpatient STLMLC STLMLC [id number] [facility] 2020-09-02 00:00:00 2020-09-02 00:00:00 Outpatient STLMLC STLMLC [id number] [facility] 2020-07-21 00:00:00 2020-07-21 00:00:00 Outpatient STLMLC STLMLC [id number] [facility] 2020-07-07 00:00:00 2020-07-07 00:00:00 Refill Christiano Angeles [facility] 1.2.840.114 350.1.13.10 4.2.7.2.686 [id number] 134 [id number] [facility] 2020-07-02 00:00:00 2020-07-02 00:00:00 Refill Christiano Angeles [facility] Building 1.2.840.114 350.1.13.10 4.2.7.2.686 [id number] 134 [id number] [facility] 2020-06-30 00:00:00 2020-06-30 00:00:00 Refill Josette Cheung [facility] Building 1.2.840.114 350.1.13.10 4.2.7.2.686 [id number] 134 [id number] [facility] 2020-06-27 00:00:00 2020-06-27 00:00:00 Refill Josette Cheung [facility] Building 1.2.840.114 350.1.13.10 4.2.7.2.686 [id number] 134 [id number] [facility] 2020-06-27 00:00:00 2020-06-27 00:00:00 Refill Josette Cheung [facility] Building 1.2.840.114 350.1.13.10 4.2.7.2.686 [id number] 134 [id number] [facility] 2020-06-11 10:02:40 2020-06-11 10:54:19 Office Visit DavidChristiano lucas [facility] Building 1.2.840.114 350.1.13.10 4.2.7.2.686 [id number] 134 [id number] [facility] 2020-06-11 09:45:00 2020-06-11 09:45:00 Outpatient CHRISTIANO NAIDU [facility] [id number] [facility] 2020-06-09 00:00:00 2020-06-09 00:00:00 Telephone Josette Cheung [facility] nal Building 1.2.840.114 350.1.13.10 4.2.7.2.686 [id number] 134 [id number] [facility] 2020-04-09 00:00:00 2020-04-09 00:00:00 Patient Secure Msg Josette Cheung [facility] 1.2.840.114 350.1.13.10 4.2.7.2.686 [id number] 134 [id number] [facility] 2020-04-02 00:00:00 2020-04-02 00:00:00 Orders Only Doctor Unassigned, [place] [facility] 1.2.84.114 350.1.13.10 4.2.7.2.686 [id number] [facility] 2020-03-27 00:00:00 2020-03-27 00:00:00 Refill Bridgette [facility] Building 1.2.840.114 350.1.13.10 4.2.7.2.686 [id number] 134 [id number] [facility] 2020-02-29 15:30:00 2020-02-29 15:30:00 Outpatient CHRISTIANO NAIDU [facility] [id number] [facility] 2020-02-29 09:13:27 2020-02-29 09:28:27 Telemedici ne Visit Christiano Angeles [facility] 1.2.840.114 350.1.13.10 4.2.7.2.686 [id number] 134 [id number] [facility] 2020-02-27 11:00:00 2020-02-27 11:00:00 Outpatient CHRISTIANO NAIDU [facility] [id number] [facility] 2020-02-07 00:00:00 2020-02-07 00:00:00 Patient Secure Msg Josette Cheung [facility] Building 1..114 350.1.13.10 4.2.7.2.686 [id number] 134 [id number] [facility] 2020-01-30 12:12:00 2020-02-01 13:05:00 Hospital Encounter Josette Cheung [facility] 1..114 350.1.13.10 4.2.7.2.686 [id number] [facility] 2020-02-01 10:00:00 2020-02-01 10:00:00 Outpatient R JOSETTE CHEUNG [facility] [id number] [facility] 2020-01-30 16:00:00 2020-01-30 16:00:00 Outpatient R JOSETTE CHEUNG [facility] [id number] [facility] 2020-01-30 09:01:54 2020-01-30 10:12:03 Routine Visit Josette Cheung [facility] 1..114 350.1.13.10 4.2.7.2.686 [id number] 134 [id number] [facility] 2020-01-30 09:30:00 2020-01-30 09:30:00 Outpatient R JOSETTE CHEUNG [facility] [id number] [facility] 2020-01-30 00:00:00 2020-01-30 00:00:00 Orders Only Doctor Unassigned, [place] [facility] 1..114 350.1.13.10 4.2.7.2.686 [id number] [facility] 2020-01-29 00:00:00 2020-01-29 00:00:00 Patient Secure Msg Josette Cheung [facility] Building 1.2.840.114 350.1.13.10 4.2.7.2.686 [id number] [facility] 2020-01-28 00:00:00 2020-01-28 00:00:00 Telephone [facility] 1.2.840.114 350.1.13.10 4.2.7.2.686 [id number] [facility] 2020-01-28 00:00:00 2020-01-28 00:00:00 Patient Secure M[facility] 1.2.840.114 350.1.13.10 4.2.7.2.686 [id number] [facility] 2020-01-25 00:00:00 2020-01-25 00:00:00 Telephone [facility] Che[facility] 1.2.840.114 350.1.13.10 4.2.7.2.686 [id number] 134 [id number] [facility] 2020-01-25 00:00:00 2020-01-25 00:00:00 Patient Secure Msg [facility] Che[facility] 1.2.840.114 350.1.13.10 4.2.7.2.686 [id number] 134 [id number] [facility] 2020-01-24 13:56:43 2020-01-24 14:11:43 Routine Visit [place] [facility] nal Building 1.2.840.114 350.1.13.10 4.2.7.2.686 [id number] 134 [id number] [facility] 2020-01-24 13:45:00 2020-01-24 13:45:00 Outpatient R CHRISTIANO ANGELES [facility] [id number] [facility] 2020-01-23 11:39:00 2020-01-23 13:10:00 Hospital Encounter Josette Cheung [facility] 1.2.840.114 350.1.13.10 4.2.7.2.686 [id number] [facility] 2020-01-17 00:00:00 2020-01-17 00:00:00 Patient Secure Msg Josette Cheung [facility] Building 1.2840.114 350.1.13.10 4.2.7.2.686 [id number] 134 [id number] [facility] 2020-01-16 15:23:25 2020-01-16 16:32:56 Routine Visit Josette Cheung [facility] Building 1.2840.114 350.1.13.10 4.2.7.2.686 [id number] 134 [id number] [facility] 2020-01-16 15:45:00 2020-01-16 15:45:00 [facility] [place] [id number] [facility] 2020-01-16 15:26:06 2020-01-16 15:41:06 Chief Inspector Visit 2, [facility] 1.2840.114 350.1.13.10 4.2.7.2.686 [id number] [facility] 2020-01-16 00:00:00 2020-01-16 00:00:00 Orders Only Doctor Unassigned, [place] [facility] 1.2840.114 350.1.13.10 4.2.7.2.686 [id number] [id number] [facility] 2020-01-08 09:51:46 2020-01-10 11:19:26 Chief Inspector Visit Ultrasound, Elan Bragg [facility] 1.2840.114 350.1.13.10 4.2.7.2.686 [id number] [facility] 2020-01-09 00:00:00 2020-01-09 00:00:00 Patient Secure Msg Joestte Cheung [facility] Building 1.84.114 350.1.13.10 4.2.7.2.686 [id number] [facility] 2020-01-08 10:00:00 2020-01-08 10:00:00 Outpatient P [facility] [id number] [facility] 2019-12-28 08:45:00 2019-12-28 08:45:00 Outpatient R [facility] [id number] [facility] 2019-12-28 08:07:16 2019-12-28 08:42:05 [facility]114 350.1.13.10 4.2.7.2.686 [id number] [facility] 2019-12-27 13:45:00 2019-12-27 13:45:00 [facility] [id number] 2019-12-25 00:00:00 2019-12-25 00:00:00 [facility] 1.84.114 350.1.13.10 4.2.7.2.686 [id number] [facility] 2019-12-25 00:00:00 2019-12-25 00:00:00 Orders Only Doctor Unassigned, [place] [facility] ..114 350.1.13.10 4.2.7.2.686 [id number] [id number] [facility] 2019-12-13 15:56:59 2019-12-13 16:41:05 Routine Visit Josette Cheung [facility] 1.2.840.114 350.1.13.10 4.2.7.2.686 [id number] [facility] 2019-12-13 16:00:00 2019-12-13 16:00:00 Outpatient R JOSETTE CHEUNG [facility] [id number] [facility] 2019-12-13 13:15:00 2019-12-13 13:15:00 Outpatient R JOSETTE CHEUNG [facility] [id number] [facility] 2019-12-03 13:30:00 2019-12-03 13:30:00 [facility] [id number] [facility] 2019-12-03 12:34:57 2019-12-03 13:27:03 Routine Visit Christiano Angeles [facility] Building 1.2840.114 350.1.13.10 4.2.7.2.686 [id number] 134 [id number] [facility] 2019-12-03 00:00:00 2019-12-03 00:00:00 Orders Only Doctor Unassigned, [place] [facility] 1.2840.114 350.1.13.10 4.2.7.2.686 [id number] [id number] [facility] 2019-11-30 00:00:00 2019-11-30 00:00:00 Telephone Josette Cheung [facility] Building 1.284.114 350.1.13.10 4.2.7.2.686 [id number] 134 [id number] [facility] 2019-11-27 00:00:00 2019-11-27 00:00:00 Refill Josette Cheung [facility] Building 1.2840.114 350.1.13.10 4.2.7.2.686 [id number] [facility] 2019-11-20 00:00:00 2019-11-20 00:00:00 Patient Secure Msg Josette Cheung [facility] 1.2.840.114 350.1.13.10 4.2.7.2.686 [id number] [facility] 2019-11-20 00:00:00 2019-11-20 00:00:00 Patient Secure Josette Davis [facility] 1.2.840.114 350.1.13.10 4.2.7.2.686 [id number] 134 [id number] [facility] 2019-11-19 08:42:18 2019-11-19 08:57:18 Chief Inspector Visit Pob, Adc Lab Main Josette Cheung [facility] 1.2840.114 350.1.13.10 4.2.7.2.686 [id number] [facility]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
[2025-05-17] MEDS ORDERED: ACETAMINOPHEN 500 MG TAB ONE (07:43)
[2025-05-17] MEDS ORDERED: NA CHLORIDE 0.9% 1,000 ML ONE (07:44)
[2025-05-17] MEDS ORDERED: ONDANSETRON 4 MG/2 ML VIAL ONE (07:44)
[2025-05-17 07:48] LABS: Absolute Lymphocytes (CBC) 1.2 K/uL (0.7-4.9); Hematocrit 37.7 % (36.0-45.0); Hemoglobin 13.0 g/dL (12.0-15.0); MCH 30.2 pg (27.0-35.0); MCHC 34.4 g/dL (32.0-36.0); MCV 87.7 fL (80-100); MPV 8.1 fL (7.6-11.3); Nucleated RBC Absolute Count 0.0 (0-0); Nucleated Red Blood Cells % 0.0 % (0-0); RBC Red Blood Cell Count 4.29 M/uL (3.86-4.86); White Blood Count 8.40 thou/uL (4.3-10.9)
--- NOTE | 2025-05-17 07:51 | RAD REPORT ---
EXAM: 1St Trimest Single 1St Fetus HISTORY: <12 weks;Abd cramping, COMPARISON: 05/09/2025 TECHNIQUE: Multiple grayscale and color Doppler images were obtained in a transvaginal pelvic ultraso und. Spectral analysis of the Doppler waveforms of the ovaries were performed. FINDINGS: UTERUS: There is an intrauterine gestational sac. This contains a yolk sac. No pole identified. The gestational sac has a mean sac diameter of 1 cm. This is consistent with 5 week 5 day. Small subchorionic hemorrhage. No free fluid is seen in the pelvis. RIGHT OVARY: Normal flow without focal mass. LEFT OVARY: Normal flow without focal mass. IMPRESSION: IUP identified with mean sac diameter consistent with 5 week 5 day. No pole or heart tones iden tified likely due to early dates. Small subchorionic hemorrhage. Consider short-term follow-up ultrasound. Bilateral ovarian blood flow.
[2025-05-17 07:56] LABS: Urine Culture Reflex Order REFLEXED; Urine Microscopic Reflex YN ORDER UMIC
[2025-05-17 08:32] LABS: ALT/SGPT 18.0 U/L (13-56); AST/SGOT 11.0 U/L (15-37); Albumin 3.1 g/dL (3.4-5.0); Albumin/Globulin Ratio 0.8 (1.1-1.8); Alkaline Phosphatase 53.0 U/L (45-117); Anion Gap 8.7 mEq/L (5.0-15.0); BUN Blood Urea Nitrogen 8.0 mg/dL (7-18); Globulin 3.7 g/dL (2.3-3.5); Glucose Level 104.0 mg/dL (74-106); HCG, Quantitative 9311.0 mIU/mL (1-3); Lipase 24.0 U/L (13-75); Potassium 3.7 mEq/L (3.5-5.1)
--- NOTE | 2025-05-17 08:42 | EDPHYS ---
Physician Documentation [facility] Name: Nicolasa Rose Age: 29 yrs Sex: Female : 1995 Arrival Date: 05/17/2025 Time: 06:58 Bed 5 Private MD: ED Physician Ousmane Thompson HPI: 05/17 07:49 Chief Complaint: Vomiting and abdominal pain. History of Present Illness: The patient noe presented with vomiting and abdominal pain that began five days ago. The pain is described as being in both the lower and upper abdomen. Today, the patient decided to seek medical attention after vomiting at work, which caused lightheadedness and almost passing out. The patient takes metoclopramide for nausea, which was last taken last night. Vomiting typically occurs in the morning. The patient reports normal bowel movements, no urinary symptoms, and no fever. The patient is in early , approximately two to three weeks, with recent HCG levels at 5,600 three days ago. Previous ultrasounds have not yet visualized the . ROS otherwise negative. Review of Systems: - Positive for abdominal pain, vomiting, dizziness, and lightheadedness. - Negative for urinary symptoms, fever, or changes in bowel movements. . 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 - Infectious Disease History:: Denies. - Social history:: Smoking status: Patient denies any tobacco usage or history of. Exam: 07:49 Constitutional: This is a well developed, well nourished patient who is awake, alert, jr11 and in no acute distress. Head/Face: Normocephalic, atraumatic. Eyes: Extra-ocular motions intact. Lids and lashes normal. Conjunctiva and sclera are non-icteric and not injected. Cornea within normal limits. Periorbital areas with no swelling, redness, or edema. ENT: Nares patent. No nasal discharge, no septal abnormalities noted. Oropharynx with no redness, swelling, or masses, exudates, or evidence of obstruction, uvula midline. Mucous membranes moist. Chest/axilla: Normal chest wall appearance and motion. Nontender with no deformity. No lesions are appreciated. Cardiovascular: Regular rate and rhythm with a normal S1 and S2. No gallops, murmurs, or rubs. Normal PMI, no JVD. No pulse deficits. Respiratory: Lungs have equal breath sounds bilaterally, clear to auscultation and percussion. No rales, rhonchi or wheezes noted. No increased work of breathing, no retractions or nasal flaring. Abdomen/GI: Soft, non-tender, with normal bowel sounds. No distension or tympany. No guarding or rebound. No evidence of tenderness throughout. Skin: Warm, dry with normal turgor. Normal color with no rashes, no lesions, and no evidence of cellulitis. MS/ Extremity: Pulses equal, no cyanosis. Neurovascular intact. Full, normal range of motion. Vital Signs: 07:10 BP 110 / 77; Pulse 81; Resp 14; Temp 98.8(O); Pulse Ox 100% on R/A; Weight 127.91 kg hb (M); Height 5 ft. 5 in. ; Pain 5/10; 08:36 BP 110 / 70; Pulse 68; Resp 16; Pulse Ox 99% on R/A; iw 09:03 BP 111 / 76; Pulse 75; Resp 17; Pulse Ox 99% ; Pain 4/10; ll1 07:10 Body Mass Index 46.93 (127.91 kg, 165.1 cm) hb 07:10 Pain Scale: Adult hb 09:03 Pain Scale: Adult ll1 MDM: 07:19 Medical Screening Exam initiated jr11 07:49 Differential diagnosis: Nonspecific abd pain, Medical Decision Makin. jr11 Gastroenteritis: Common cause of vomiting and could explain abdominal pain and lightheadedness. Likely but needs exclusion of more serious conditions. 2. Early complications: Possible given the patient's status; requires monitoring of HCG levels and ultrasound to rule out ectopic . 3. Gastritis or peptic ulcer disease: Considered due to upper abdominal pain and vomiting; less likely without history of NSAID use or significant risk factors. 4. Appendicitis: Less likely given the diffuse nature of pain and lack of specific right lower quadrant tenderness, but needs consideration given abdominal pain. Plan: - Administer IV fluids. - Perform laboratory tests to check electrolytes and complete blood count. - Repeat HCG levels. - Conduct an ultrasound to assess for intrauterine or other findings. - Monitor symptoms and reassess as needed. 08:40 ED course: US interp by me, +IUP, +UTI, but PCP just changed to macrobid, will not [facility] change it again. Pt agrees with POC. ER warnings given, well appearing . 05/17 07:20 Order name: CBC with Diff; Complete Time: 07:56 [facility] 05/17 07:20 Order name: CMP; Complete Time: 08:34 [facility] 05/17 07:20 Order name: Lipase; Complete Time: 08:34 [facility] 05/17 07:20 Order name: HCG-Quantitative; Complete Time: 08:34 [facility] 05/17 07:20 Order name: UA Rfx Anil Cult if indicated; Complete Time: 07:58 [facility] 05/17 08:01 Order name: Urine Culture EDMS 05/17 07:26 Order name: 1St Trimest Single 1St Fetus; Complete Time: 07:56 EDAL 05/17 07:20 Order name: IV Saline Lock; Complete Time: 07:27 [facility] 05/17 07:20 Order name: Labs collected and sent; Complete Time: 07:46 [facility] Administered Medications: 07:53 Drug: Ondansetron IVP 4 mg IVP once; over 2 minutes Route: IVP; Site: right antecubital;nh2 09:00 Follow up: Response: No adverse reaction iw 09:04 Follow up: Response: No adverse reaction; Nausea is decreased ll1 07:53 Drug: NS 0.9% IV 1000 ml IV at 1000 ml once; to be given as a bolus over 60 minutes nh2 Route: IV; Rate: 1000 ml; Site: right antecubital; 09:04 Follow up: Response: No adverse reaction; IV Status: Completed infusion; IV Intake: ll1 950ml 07:54 Drug: Acetaminophen PO 1000 mg PO once Route: PO; nh2 09:00 Follow up: Response: No adverse reaction; Pain is decreased iw Disposition Summary: 05/17/25 08:41 Discharge Ordered Notes: Location: Home [facility] Condition: Stable [facility] Diagnosis - UTI/ Urinary tract infection, site not specified jr11 - Nausea with vomiting, unspecified jr Discharge Instructions: - Discharge Summary Sheet jr11 - Nausea and Vomiting, Adult jr11 - Urinary Tract Infection, Adult jr11 Forms: - Medication Reconciliation Form jr11 - Antibiotic Education jr11 - Prescription Opioid Use jr11 - Patient Portal Instructions jr11 - Leadership Thank You Letter jr11 Prescriptions: - ondansetron 4 mg Oral Tablet,disintegrating - take 1 tablet ORAL route every 8 hours; 12 tablet; Refills: 0, Product jr11 Selection Permitted Signatures: Dispatcher [employer] EDMS Nicole Andrade RN RN Ousmane Thompson MD MD jr11 Parker Headley, OWEN Merino RN [facility] Nallely Raphael RN Hiral Odonnell RN ll1 Corrections: (The following items were deleted from the chart) 07:21 07:21 UA Rfx Anil Cult if indicated+U.LAB.BRZ ordered. EDMS EDMS 07: 07:21 OB Limited+US.RAD.BRZ ordered. EDMS EDMS
--- NOTE | 2025-05-17 08:42 | ER ---
Nurse's Notes [facility] Name: Nicolasa Rose Age: 29 yrs Sex: Female : 1995 Arrival Date: 05/17/2025 Time: 06:58 Bed 5 Private MD: Diagnosis: UTI/ Urinary tract infection, site not specified;Nausea with vomiting, unspecified Presentation: 05/17 07:10 Chief complaint: Lowe abdominal pain x 5 days, vomit x 2 this morning. Denies urinary hb symptoms. Seen on 05/09 for threatened , last LMP 03/25. Coronavirus screen: At this time, the client does not indicate any symptoms associated with coronavirus-19. Ebola Screen: No symptoms or risks identified at this time. Initial Sepsis Screen: Does the patient meet any 2 criteria? No. Patient's initial sepsis screen is negative. Does the patient have a suspected source of infection? No. Patient's initial sepsis screen is negative. Risk Assessment: Do you want to hurt yourself or someone else? Patient reports no desire to harm self or others. Onset of symptoms was May 12, 2025. 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 - Infectious Disease History:: Denies. - Social history:: Smoking status: Patient denies any tobacco usage or history of. Screenin:56 [facility] ED Fall Risk Assessment (Adult) History of falling in the last 3 months, nh2 including since admission No falls in past 3 months (0 pts) Confusion or Disorientation No (0 pts) Intoxicated or Sedated No (0 pts) Impaired Gait No (0 pts) Mobility Assist Device Used No (0 pt) Altered Elimination No (0 pt) Score/Fall Risk Level 0 - 2 = Low Risk Oriented to surroundings, Maintained a safe environment. Abuse screen: Denies threats or abuse. Nutritional screening: No deficits noted. Tuberculosis screening: No symptoms or risk factors identified. Assessment: 07:29 General: Appears in no apparent distress. Behavior is calm, cooperative, Denies fever, nh2 feeling ill, fatigue, chills. Pain: Complains of pain in abdomen Pain radiates to right lower quadrant Pain currently is 5 out of 10 on a pain scale. Quality of pain is described as aching, crampy, Pain began 5 DAYS AGO. Neuro: No deficits noted. Level of Consciousness is awake, alert, obeys commands, Oriented to person, place, time, situation, Appropriate for age. Cardiovascular: Capillary refill < 3 seconds Patient's skin is warm and dry. Respiratory: Airway is patent Respiratory effort is even, unlabored, Respiratory pattern is regular, symmetrical. GI: Abdomen is non-distended, Abd is soft X 4 quads Abdomen is tender to palpation in right lower quadrant. : Denies burning with urination, vaginal bleeding. : Reports pt is approximately 2-3 weeks . Had a HCG level checked on May 14, 2025 where HCG levels were 5,000. Derm: Skin is intact, is healthy with good turgor. Musculoskeletal: Range of motion: intact in all extremities. 08:35 Reassessment: Patient appears in no apparent distress at this time. Patient and/or iw family updated on plan of care and expected duration. Pain level reassessed. Patient is alert, oriented x 3, equal unlabored respirations, skin warm/dry/pink. GI: 09:03 Reassessment: No changes from previously documented assessment. Patient and/or family ll1 updated on plan of care and expected duration. Pain level reassessed. Patient is alert, oriented x 3, equal unlabored respirations, skin warm/dry/pink. Patient states feeling better. Patient states symptoms have improved. Vital Signs: 07:10 BP 110 / 77; Pulse 81; Resp 14; Temp 98.8(O); Pulse Ox 100% on R/A; Weight 127.91 kg hb (M); Height 5 ft. 5 in. ; Pain 5/10; 08:36 BP 110 / 70; Pulse 68; Resp 16; Pulse Ox 99% on R/A; iw 09:03 BP 111 / 76; Pulse 75; Resp 17; Pulse Ox 99% ; Pain 4/10; ll1 07:10 Body Mass Index 46.93 (127.91 kg, 165.1 cm) hb 07:10 Pain Scale: Adult hb 09:03 Pain Scale: Adult ll1 ED Course: 07:00 Patient arrived in ED. gm2 07:12 Ousmane Thompson MD is Attending Physician. jr11 07:12 Triage completed. hb 07:12 Arm band placed on. hb 07:16 Hiral Odonnell, RN is Primary Nurse. ll1 07:21 Nallely Raphael, RN is Primary Nurse. iw 07:40 1St Trimest Single 1St Fetus In Process Unspecified. EDMS 07:46 Initial lab(s) drawn, by me, sent to lab. Inserted saline lock: 20 gauge in right iw antecubital area, using aseptic technique. Blood collected. Flushed with 10 mL NS. 07:54 UA Rfx Anil Cult if indicated Sent. nh2 07:54 HCG-Quantitative Sent. nh2 07:54 Lipase Sent. nh2 07:54 CMP Sent. nh2 07:56 Patient has correct armband on for positive identification. Bed in low position. Call nh2 light in reach. Side rails up X2. Provided Education on: plan of care. Client placed on continuous cardiac and pulse oximetry monitoring. NIBP monitoring applied. Door closed. Noise minimized. Lights dimmed. Warm blanket given. 07:56 No provider procedures requiring assistance completed. nh2 09:04 IV discontinued, intact, bleeding controlled, No redness/swelling at site. Pressure ll1 dressing applied. Administered Medications: 07:53 Drug: Ondansetron IVP 4 mg IVP once; over 2 minutes Route: IVP; Site: right antecubital;nh2 09:00 Follow up: Response: No adverse reaction iw 09:04 Follow up: Response: No adverse reaction; Nausea is decreased ll1 07:53 Drug: NS 0.9% IV 1000 ml IV at 1000 ml once; to be given as a bolus over 60 minutes nh2 Route: IV; Rate: 1000 ml; Site: right antecubital; 09:04 Follow up: Response: No adverse reaction; IV Status: Completed infusion; IV Intake: ll1 950ml 07:54 Drug: Acetaminophen PO 1000 mg PO once Route: PO; nh2 09:00 Follow up: Response: No adverse reaction; Pain is decreased iw Medication: 07:56 VIS not applicable for this client. nh2 Intake: 09:04 IV: 950ml; Total: 950ml. ll1 Outcome: 08:41 Discharge ordered by . jr11 09:04 Discharged to home ambulatory, ll1 09:04 Condition: stable 09:04 Discharge instructions given to patient, Instructed on discharge instructions, follow up and referral plans. medication usage, Demonstrated understanding of instructions, follow-up care, medications, Prescriptions given X 1, 09:04 Patient left the ED. ll1 Signatures: Dispatcher [employer] EDMS Nallely Raphael RN RN Nicole Andrade RN RN Hiral Odonnell RN RN 1 Ousmane Thompson MD MD jr11 Filomena Valderrama 2 Wilber Canales Jr, RN RN nh2 Corrections: (The following items were deleted from the chart) 07:15 07:10 Chief complaint: Lowe abdominal pain x 5 days, vomit x 2 this morning. Denies hb urinary symptoms hb 07:15 07:10 Chief complaint: Lowe abdominal pain x 5 days, vomit x 2 this morning. Denies hb urinary symptoms. Seen on 05/09 for threatened , last LMP 03/30 hb 09:03 09:03 BP 117 / 6; Pulse 75bpm; Resp 17bpm; Pulse Ox 99%; Pain 4/10, Adult; ll1 ll1
[2025-05-17 09:11] VITALS: TEMP 98.8
[2025-05-17 09:12] VITALS: O2SAT 99
[2025-05-17 09:13] VITALS: BP 111/76
== END 2025-05-17 09:04 | disposition home or self-care (01) ==
LOC: ER 06:58
DX: O23.41 Unspecified infection of urinary tract in pregnancy, first trimester (principal); Z3A.01 Less than 8 weeks gestation of pregnancy
CPT/HCPCS: 96361; 87088; 85025; 81001; 87086; 36415; 84702; 83690; 80053; 76801; 96374; 99284; J2405; J7030

== ENCOUNTER 2025-05-30 15:20 | Emergency (ER) | payer OTHER ==
--- OUTSIDE RECORDS SUMMARY | 2025-05-30 15:37 | XMS REPORT | Continuity of Care Document ---
Author Name Unknown Address [address] [place] [address] [facility] Address [address] [place] [address] Care Team Providers Care Job Analysis Manager Name Role Phone LOREN HERNANDEZ Primary Care Physician Unavailab Fernandez Kellogg Attending Clinician Unavailable KIMBERLYN SR Attending Clinician Unavailable SANTY YARBROUGH Attending Clinician Elsa STRAUSS MD Attending Clinician UnavailESTHER Anand Attending Clinician UnavailESTHER Anand Attending Clinician UnavailEsther Anand DO Attending Clinician [phone] SANTOSH AREVALO Attending Clinician Unavailable Aurora Ashraf PA-C Attending Clinician [phone] LOREN HERNANDEZ Attending Clinician Unavailable MADHAVI COBB Attending Clinician Unavailab AURORA Whaley Attending Clinician Unavailable LAB47 Attending Clinician Unavailable NATHEN NIETO Attending Clinician Unavailabl RAMBO Martínez Attending Clinician Unavailable RAMBO MONDRAGON Attending Clinician Unavailable Yoeliel CLOTH WINDER MACHINE OPERATOR, Rambo Rodriguez Attending Clinician [phone] Attending Clinician Unavailable DEBBIE RUBIN Attending Clinician Unavailable KIMBERLYN SR Attending Clinician Unavailable ALEJANDRO PFEIFFER Attending Clinician Unavailable Margaretteblair WEST, Alejandro T Attending Clinician [phone] VINI GEE Attending Clinician Unavailab LILY Sepulveda Attending Clinician Unavailabl TIFFANY Lopez Attending Clinician Un available LEONOR MUELLER Attending Clinician Unavailable Leonor Mueller MD Attending Clinician [phone] Unknown, Attending Attending Clinician Unavailab JARRETT Garcia Attending Clinician Unavailable JARRETT NAVARRO Attending Clinician Unavailable VincJarrett Whelan Attending Clinician [phone] EbraDelvis Young Attending Clinician [phone] DELVIS KAYE Attending Clinician Unavailable LAB90 Attending Clinician Unavailable KRYSTA BARRETO Attending Clinician UnaKAIDEN Mai Attending Clinician Unavailable BERONICA MOORE Attending Clinician Unavailable PASHA PEDROZA Attending Clinician Unavailable CHANTELL BOO Attending Clinician Unavailable GENET NI Attending Clinician Unavailab JOSUÉ Mix Attending Clinician Unavailab HARI Dixon Attending Clinician Unavailable JANET PERAZA Attending Clinician Unavailable JUNIOR LYNN Attending Clinician Unavailable JOSETTE CHEUNG Attending Clinician Unavailable Gildardo DUNNE Attending Clinician Unavailable Gildardo Cohen Attending Clinician [phone] ELEN BENEDICT Attending Clinician Unavailable Elen Benedict NP Attending Clinician [phone] HARSH HARO Attending Clinician Unavailabl blair WEST, Harsh Attending Clinician [phone] Unknown, Attending Attending Clinician Unavailab le Doctor Unassigned, Lock[place] Attending Clinician U NICOLE Gaspar Attending Clinician Unavailable KORTNEY TREJO Attending Clinician UnavailKORTNEY Chung Attending Clinician Unavailgerson WEST, Sydnie Attending Clinician [phone] SYDNIE ANDRADE Attending Clinician Unavailable Jonatan KIM, Josette Pereyra Attending Clinician [phone] Shayy Gonzales MA Attending Clinician Unavailable Fontanilla III, CERAMIST, R Attending Clinician [phone] Leandra Wyatt MD Attending Clinician [phone] Pob, [facility] Main Attending Clinician Unavailpatricia Smith RN, Joanne Attending Clinician Unavailable Ultrasound, [facility] Attending Clinician Unavailgerson Arroyo MD, Meche Gale Attending Clinician + MECHE ARROYO Attending Clinician Una esau Alberto RN, Migdalia Attending Clinician UnavailMECRY Akins Attending Clinician MERCY Barrow Attending Clinician Jarvis Naqvi MD Attending Clinician [phone] Dena Manrique RN Attending Clinician Unavailable JARVIS MCQUEEN Attending Clinician Unavailable Alireza KIM, Moriah Alfredo Attending Clinician [phone] SAM BRADLEY Attending Clinician Unavailable Sam Bradley MD Attending Clinician [phone] 2, [facility] Room Attending Clinician UnavailMigdalia Morelos MD Attending Clinician [phone] MIGDALIA VAZQUEZ Attending Clinician Unavailable MIGDALIA VAZQUEZ Attending Clinician Unavailable Truong Leo RN Attending Clinician Ross Wesley RN, Cecy Attending Clinician Unavailable Leonor Mueller MD Attending Clinician [phone] Lab, [facility]cos Almeida Attending Clinician Unavailable ELPIDIO MARTINEZ Attending Clinician Unavailable Elpidio Leos Attending Clinician [phone] KAI LARKIN Attending Clinician Unavailable Trae WEST, Kai Attending Clinician [phone] Poppy Ceron PA-C Attending Clinician [phone] POPPY CERON Attending Clinician Unavailable John Cain RN Attending Clinician Unavailab NIXON Barroso Attending Clinician Unavailable Nixon Washington DO Attending Clinician [phone] Jacqueline CLOTH WINDER MACHINE OPERATOR, Nydia Attending Clinician [phone] NYDIA PHILLIPS Attending Clinician UnavailEZRA Moore Attending Clinician Unavailable ELLE SAMUELS Attending Clinician Unavailable Elle Samuels PA-C Attending Clinician Unavailpatricia Mireles RN, [place] Franks Attending Clinician Unavailab le Juan Albertoikunle CLOTH WINDER MACHINE OPERATOR, Shanika Paul Attending Clinician [phone] Ebrahim CLOTH WINDER MACHINE OPERATOR, Delvis Attending Clinician [phone] Only, Marcos Db Test Attending Clinician UnavailCHRISTIANO Brown Attending Clinician Unavailable Jerod Angelo MD Attending Clinician [phone] Provider, [facility] Attending Clinician Un available Krysta Leger Attending Clinician [phone] KRYSTA MCKEON Attending Clinician Unavailab Farzad Medrano DO Attending Clinician [phone] Christiano Angeles PA-C Attending Clinician [phone] 2, [facility] Attending Clinician Unavailable Elan Denny MD Attending Clinician [phone] Trevor John MD Attending Clinician [phone] Gabino Alvarez MD Attending Clinician + [phone] Nurse, [facility] Attending Clinician Un available JOEL ODOM M.D. Attending Clinician KIMBERLYN Melgar Admitting Clinician Unavailable JOSETTE CHEUNG Admitting Clinician Unavailable ALEJANDRO PFEIFFER Admitting Clinician Unavailable JARRETT NAVARRO Admitting Clinician Unavailable JOSUÉ NAGY Admitting Clinician Unavailab Gildardo Gross Admitting Clinician Unavailable ELEN BENEDICT Admitting Clinician Unavailable Josette Cheung MD Admitting Clinician [phone] Adum MD, Kimberlyn L Admitting Clinician [phone] [facility] Admitting Clinician SAM Braun Admitting Clinician Unavailable Sam Bradley MD Admitting Clinician ELPIDIO MARTINEZ Admitting Clinician Unavailable KORTNEY TREJO Admitting Clinician UnavailNIXON Garland Admitting Clinician Unavailable KAI LARKIN Admitting Clinician Unavailable Gabino Alvarez MD Admitting Clinician [phone] Payers Payer Name Policy Type Policy Number Effective Date Expirati on Date Source [facility] [id number] 2019 00:00:00 [facility] VENU GUIDRY COPAY FOCUS 9 [id number] 2024 00:00:00 [facility] W/ ANAT STORM [id number] 2024 00:00:00 [facility] [id number] 2024 00:00:00 [employer] 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 94 ON 9 [id number] 2024 00:00:00 [employer] W/ [place]AT [place] [id number] 2024 00:00:00 2024 00:00:00 [facility] [id number] 2020 00:00:00 [facility] [id number] 2020 00:00:00 [facility] [id number] 2020 00:00:00 [facility] [id number] 2020 00:00:00 [facility] [id number] 2020 00:00:00 [facility] [id number] 2020 00:00:00 [facility] Problems Condition Name Condition Details Condition Category Status Onset Date Resolution Date Last Treatment Date Treating Clinician Comments Source BMI 40.0-44.9, adult BMI 40.0-44.9, adult Disease Active 9-18 00:00: 00 Anat Seybold - Externa l Strain of right knee, initial encounter Strain of right knee, initial encounter Disease Active 8-04 00:00: 00 [facility] Acute pain of right knee Acute pain of right knee Disease Active 8-04 00:00: 00 [facility] Nexplanon in place Nexplanon in place Disease Active 1- 00:00: 00 [facility] BMI 39.0-39.9, adult BMI 39.0-39.9, adult Disease Active 6- 00:00: 00 [facility] [id number] Multigravi da in third trimester Problem Active [facility] [id number] Panic disorder [episodic paroxysmal anxiety] Problem Active [facility] [id number] Generalize d anxiety disorder Problem Active [facility] [id number] Seasonal allergies Problem Active [facility] History of back pain History of back pain Problem [id number] [facility] [id number] Current moderate episode of major depressive disorder without prior episode Problem Active [facility] [id number] Morbid (severe) obesity due to excess calories Problem Active [facility] [id number] Primary insomnia Problem Active [facility] History of depression History of depression Problem [...] 1-04 00:00: 00 2022-11-05 00:00:00 2022-11-05 11:05:00 [facility] General counseling and advice on female contracept ion General counseling and advice on female contracept ion Disease Resolve d 2021-10 2-19 00:00: 00 2022-11-05 00:00:00 2022-11-05 11:05:01 [facility] Positive GBS test Positive GBS test Disease Resolve d 2021-1 2-09 00:00: 00 2022-11-05 00:00:00 2022-11-05 11:05:02 [facility] Encounter for tubal ligation counseling Encounter for tubal ligation counseling Disease Resolve d 2021-0 9-01 00:00: 00 2022-11-05 00:00:00 2022-11-05 11:05:03 [facility] Obesity affecting , antepartum Obesity affecting , antepartum Disease Resolve d 2021-1 2-01 00:00: 00 2022-10-21 00:00:00 2022-10-21 12:46:38 [facility] Group B streptococ johnny infection in Group B streptococ johnny infection in Disease Resolve d 2021- 1-07 00:00: 00 2022-10-21 00:00:00 2022-10-21 12:46:58 [facility] Depression affecting , antepartum Depression affecting , antepartum Disease Resolve d 2021-0 9-21 00:00: 00 2022-10-21 00:00:00 2022-10-21 12:46:25 [facility] 39 weeks gestation of 39 weeks gestation of Disease Resolve d 2019-0 4-22 00:00: 00 2022-10-21 00:00:00 2022-10-21 12:46:50 [facility] BMI 40.0-44.9, adult BMI 40.0-44.9, adult Disease Resolve d 2019-0 3-05 00:00: 00 2022-10-21 00:00:00 2022-10-21 12:46:29 [facility] Supervisio n of other high risk , antepartum Supervisio n of other high risk , antepartum Disease Resolve d 2019-0 1-27 00:00: 00 2022-10-21 00:00:00 2022-10-21 12:46:44 [facility] Liveborn , of reyna , born in hospital by vaginal delivery Liveborn infant, of reyna , born in hospital by vaginal delivery Disease Resolve d 2015-0 6-23 00:00: 00 2022-10-21 00:00:00 2022-10-21 12:47:04 [facility] Third trimester Third trimester Disease Resolve d 2021-1 2-01 00:00: 00 2022-09-27 00:00:00 2022-09-27 06:02:13 [facility] Person with feared complaint in whom no diagnosis was made Person with feared complaint in whom no diagnosis was made Disease Resolve d 2021-1 2-01 00:00: 00 2022-09-27 00:00:00 2022-09-27 06:02:07 [facility] Pelvic pain affecting in third trimester, antepartum Pelvic pain affecting in third trimester, antepartum Disease Resolve d 2021-10 1-07 00:00: 00 2022-09-27 00:00:00 2022-09-27 06:01:43 [facility] History of oligohydra mnios in prior , currently in third trimester History of oligohydra mnios in prior , currently in third trimester Disease Resolve d 2021-1 0-31 00:00: 00 2022-09-27 00:00:00 2022-09-27 06:01:13 [facility] Urinary tract infection without hematuria, site unspecifie d Urinary tract infection without hematuria, site unspecifie d Disease Resolve d 2021-1 0-14 00:00: 00 2022-09-27 00:00:00 2022-09-27 06:02:14 [facility] Edema during in second trimester Edema during in second trimester Disease Resolve d 2021-0 9-16 00:00: 00 2022-09-27 00:00:00 2022-09-27 06:01:27 [facility] Obesity in , antepartum Obesity in , antepartum Disease Resolve d 2021-0 9-16 00:00: 00 2022-09-27 00:00:00 2022-09-27 06:01:41 [facility] Abdominal pain, right lower quadrant Abdominal pain, right lower quadrant Disease Resolve d 2022-0 7-06 00:00: 00 2022-09-27 00:00:00 2022-09-27 06:01:23 [facility] Nausea and vomiting during Nausea and vomiting during Disease Resolve d 2021-0 5-23 00:00: 00 2022-09-27 00:00:00 2022-09-27 06:01:30 [facility] Nausea and vomiting during Nausea and vomiting during Disease Resolve d 2021-0 5-23 00:00: 00 2022-09-27 00:00:00 2022-09-27 06:01:30 [facility] Subchorion ic hematoma in first trimester, single or unspecifie d fetus Subchorion ic hematoma in first trimester, single or unspecifie d fetus Disease Resolve d 2021-0 7-06 00:00: 00 2022-09-17 00:00:00 2022-09-17 10:51:20 [facility] 15 weeks gestation of 15 weeks gestation of Disease Resolve d 0 7-06 00:00: 00 2022 00:00:00 2022 16:05:36 [facility] with inconclusi ve viability, single or unspecifie d fetus with inconclusi ve viability, single or unspecifie d fetus Disease Resolve d 0 4-19 00:00: 00 2022 00:00:00 2022 16:05:33 [facility] Missed menses Missed menses Disease Resolve d 0 4-19 00:00: 00 2022 00:00:00 2022 16:05:31 [facility] with inconclusi ve viability, single or unspecifie d fetus with inconclusi ve viability, single or unspecifie d fetus Disease Resolve d 0 4-19 00:00: 00 2022 00:00:00 2022 16:05:33 [facility] Oligohydra mnios Oligohydra mnios Disease Resolve d -22 00:00: 00 2020-02-29 00:00:00 2020-02-29 09:26:05 [facility] Obesity (BMI 30-39.9) Obesity (BMI 30-39.9) Disease Resolve d 9-06 00:00: 00 2020-01-30 00:00:00 2020-01-30 21:40:57 [facility] 26 weeks gestation of 26 weeks gestation of Disease Resolve d 11-05 00:00: 00 2019-12-03 00:00:00 2019-12-03 14:20:39 [facility] Postprandi al nausea Postprandi al nausea Disease Resolve d 2018-10 00:00: 00 2019-11-05 00:00:00 2019-11-05 17:51:31 [facility] 40 weeks gestation of 40 weeks gestation of Disease Resolve d 6 00:00: 00 2019-10-07 00:00:00 2019-10-07 07:23:47 [facility] Active labor at term Active labor at term Disease Resolve d 04-01 00:00: 00 2019-10-07 00:00:00 2019-10-07 07:23:49 [facility] Common Discomfort s of Common Discomfort s of Disease Resolve d 3-28 00:00: 00 2019-10-07 00:00:00 2022-04-25 00:40:01 [facility] Allergies, Adverse Reactions, Alerts Allergy Name Allergy Type Status Severity Reaction(s) Onset Date Inactive Date Treating Clinician Comments Source Codeine Propensi ty to adverse reaction s Active 2022-10 00:00: 00 Anat Mesa - Raymundoa l Aripipra zole Propensi ty to adverse reaction s Active 04-26 00:00: 00 Other Reaction( s): Unknown Anta Salcedoold - Externa l Penicill ins Propensi ty to adverse reaction s Active Rash 2014-10 00:00: 00 [facility] ARIPIPRA ZOLE DRUG INGREDI Active Rash 2014-10 00:00: 00 [facility] PENICILL INS Drug Class Active Rash 2014-10 00:00: 00 [facility] Aripipra zole Drug Allergy Active Rash 2014-10 00:00: 00 [facility] Penicill ins Propensi ty to adverse reaction s Active Rash 2014-10 00:00: 00 [facility] Penicill ins Propensi ty to adverse reaction s Active Rash 2014-10 00:00: 00 [facility] Aripipra zole Monohydr ate Propensi ty [...] intake 2023-11-30 00:00:00 2023-11-30 00:00:00 Ex-drinker (finding) [facility] Exposure to SARS-CoV-2 (event) 2023-02-03 00:00:00 2023-02-13 19:59:00 Not sure [facility] Tobacco use and exposure 2022-09-27 00:00:00 2022-09-27 00:00:00 Smokeless tobacco non-user [facility] Sex assigned at 1995 00:00:00 1995 00:00:00 Anat Gonzáles External Smoking Status Start Date Stop Date Source Tobacco smoking consumption unknown Anat Gonzáles Ext ernal Never smoked tobacco [facility] Medications Ordered Medication Name Filled Medication Name Start Date Stop Date Current Medication? Ordering Clinician Indication Dosage Frequency Signature (SIG) Comments Components Source Nitrofurant oin&Nit. Macrocryst 100 mg capsule 05-14 00:00: 00 05-22 04:59 :00 Yes [id number] 100mg Take 1 capsule by mouth in the morning and 1 capsule in the evening. Do all this for [address] [facility] FLUTICASONE PROPIONATE, NASAL, 50 MCG/ACT nasal Suspension 04-26 15:26: 53 Yes INSTILL TWO (2) SPRAYS INTO EACH NOSTRIL IN THE MORNING. Anat chan Benzonatate 100 MG oral Capsule 04-26 00:00: 00 Yes [id number] 100mg Q.[id number] 3D Take 1 capsule (100 mg total) by mouth 3 times daily as needed for cough. Anat chan Azithromyci n 250 MG oral Tablet 04-26 00:00: 00 05-02 04:59 :00 Yes [id number] Take 2 tablets by mouth on day 1 then 1 tablet by mouth daily for 4 days thereafter .. Anat chan bromphenira mine-pseudo ephedrine-D M (BROMFED DM) 2-30-10 mg/5 mL syrup 04-07 00:00: 00 Yes [id number] 5mL Take 5 mL by mouth 3 times daily as needed for Cold symptoms. [facility] fluticasone propionate 50 mcg/actuati on nasal spray 04-07 00:00: 00 Yes [id number] 2{spray } Use 2 Sprays in each nostril in the morning. [facility] albuterol sulfate HFA 90 mcg/actuati on aerosol inhaler 04-07 00:00: 00 Yes [id number] 2{puff} Inhale 2 Puffs every 6 hours as needed for Bronchospa sm. [facility] azithromyci n 250 mg tablet 04-07 00:00: 00 04-13 04:59 :00 Yes [id number] Take 2 tablets by mouth daily for 1 day, THEN 1 tablet daily for [address] [facility] Norethindro ne, Contracepti ve, 0.35 MG oral [...] 03-20 00:00: 00 04-26 00:00 :00 No [id number] Take 1 pill qd on Day 15-24 of each menstrual cycle for 10 days, Day 1= first day of menses,exp ect cycle 3-7 days after medication finished. Anat chan Phentermine HCl 37.5 MG oral Tablet 02-18 00:00: 00 04-26 00:00 :00 No [id number] 37.5mg Take 1 tablet (37.5 mg total) by mouth every morning (before breakfast) . Anat chan hydroCHLORO thiazide 12.5 MG oral Capsule 08 00:00: 00 Yes [id number] 12.5mg QD Take 1 capsule (12.5 mg total) by mouth daily. Anat chan Phentermine HCl 37.5 MG oral Tablet 12-26 00:00: 00 Yes [id number] 37.5mg Take 1 tablet (37.5 mg total) by mouth every morning (before breakfast) . Anat chan Topiramate 25 MG oral Tablet 12-26 00:00: 00 04-26 00:00 :00 No [id number] 25mg Q.5D Take 1 tablet (25 mg total) by mouth 2 times daily. Anat chan Norethindro ne, Contracepti ve, (Ortho Micronor) 0.35 MG oral Tablet 12-26 00:00: 00 02-14 00:00 :00 No [id number] .35mg QD Take 1 tablet (0.35 mg total) by mouth daily. Anat chan Norethindro ne Acet-Ethiny l Est (Loestrin 10/29, ,) 1-20 MG-MCG oral Tablet 12-17 00:00: 00 Yes [id number] 1{tbl} QD Take 1 tablet by mouth daily. Anat chan Phentermine HCl 37.5 MG oral Tablet 11-26 00:00: 00 12-26 00:00 :00 No [id number] 18.75mg Take 0.5 tablets (18.75 mg total) by mouth every morning (before breakfast) . Anat chan Diclofenac Sodium 75 MG oral Tablet Delayed Response 10-29 00:00: 00 Yes [id number] 75mg Q.5D Take 1 tablet (75 mg total) by mouth 2 times daily. Anat chan HYDROcodone -acetaminop hen (NORCO 5) tablet 1 tablet 10-25 17:15: 00 10-25 17:38 :00 No 1{tbl} 1 tablet, Oral, ONCE, 1 dose, On Maddison 10/25/24 at 1115, [facility]VIN [facility] ibuprofen 800 mg tablet 10-25 00:00: 00 Yes [id number] 800mg Take 1 tablet by mouth in the morning and 1 tablet at noon and 1 tablet in the evening. Take with meals. [facility] traMADoL 50 mg tablet 10-25 00:00: 00 11-02 05:59 :00 No [id number] 50mg Take 1 tablet by mouth every 6 (six) hours as needed for Pain (scale 7-10) for up to 7 days. Indication s: acute pain [facility] Gabapentin 100 MG oral Capsule 10-16 00:00: 00 Yes [id number] 100mg Q.[id number] 3D Take 1 capsule (100 mg total) by mouth 3 times daily. Anat chan Clindamycin HCl 150 MG oral Capsule 10-16 00:00: 00 11-26 00:00 :00 No TAKE ONE (1) CAPSULE(S) BY MOUTH FOUR TIMES A DAY UNTIL ALL TAKEN. Anat chan Gabapentin 100 MG oral Capsule 2023-10 00:00: 00 Yes [id number] 100mg Q.[id number] 3D Take 1 capsule (100 mg total) by mouth 3 times daily. Anat chan Meloxicam 15 MG oral Tablet 2023-10 00:00: 00 Yes [id number] 15mg QD Take 1 tablet (15 mg total) by mouth daily Take with Meals, STOP IF UPSET STOMACH. Anat chan Phentermine HCl 37.5 MG oral Tablet 2023-10 10:15: 05 07-10 00:00 :00 No Take by mouth. Anat chan methylPREDN ISolone 4 MG oral Tablet Therapy Pack 2023-10 00:00: 00 08-30 00:00 :00 No [id number] 1{aldair} Take 1 aldair by mouth See Admin Instructio ns Use as directed. Anat chan Azithromyci n 250 MG oral Tablet 2023-10 00:00: 00 07-16 04:59 :00 No [id number] Take 2 tablets by mouth on day 1 then 1 tablet by mouth daily for 4 days thereafter .. Anat chan ketorolac (TORADOL) injection 15 mg 07-04 01:32: 00 07-04 01:44 :00 No 15mg 15 mg, Slow IV Push, ONCE, 1 dose, On Tue07/03/24 at 2044, [facility] bromphenira mine-pseudo ephedrine-D M (BROMFED DM) 2-30-10 mg/5 mL syrup 06-28 00:00: 00 07-09 04:59 :00 No [id number] 10mL Take 10 mL by mouth 4 (four) times daily for [address] [facility] Phentermine HCl 37.5 MG oral Tablet 06-27 00:00: 00 11-26 00:00 :00 No [id number] 37.5mg Take 1 tablet (37.5 mg total) by mouth every morning (before breakfast) . Anat chan codeine-gua ifenesin (ROBITUSSIN AC) 10-100 mg/5 mL oral solution 10 mL 06-26 01:45: 00 06-26 01:54 :00 No 10mL 10 mL, Oral, ONCE, 1 dose, On Tue06/25/24 at 2045, [facility] bromphenira mine-pseudo ephedrine-D M (BROMFED DM) 2-30-10 mg/5 mL syrup 06-25 00:00: 00 Yes [id number] 5mL Take 5 mL by mouth 4 (four) times daily as needed for Cough. [facility] guaiFENesin -Codeine 100-10 MG/5ML oral Solution 06-25 00:00: 00 07-03 04:59 :00 No 5mL Q.25D Take 5 mL by mouth every 6 hours as needed. Anat chan Albuterol HFA 108 (90 Base) MCG/ACT IN AERS 06-12 00:00: 00 Yes [id number] 2{puff} Q.25D Inhale 2 puffs into the lungs every 6 hours as needed for wheezing or shortness of breath. Anat chan FLUTICASONE PROPIONATE, NASAL, 50 MCG/ACT nasal Suspension 06-12 00:00: 00 11-26 00:00 :00 No [id number] 50ug QD Use 1 spray (50 mcg total) in each nostril daily. Anat chan Benzonatate 200 MG oral Capsule 06-12 00:00: 00 08-30 00:00 :00 No [id number] 200mg Q.[id number] 3D Take 1 capsule (200 mg total) by mouth 3 times daily as needed for cough. Anat chan Azelastine HCl 0.1 % nasal Solution 06-12 00:00: 00 08-30 00:00 :00 No [id number] 2 sprays in each nostril bid prn for congestion . Anat chan Meloxicam 15 MG oral Tablet 06-06 00:00: 00 08-30 00:00 :00 No 15mg QD Take 1 tablet (15 mg total) by mouth daily Take with Meals, STOP IF UPSET STOMACH. Anat chan Famotidine (PEPCID) 20 MG oral tablet 05-30 00:00: 00 11-26 00:00 :00 No [id number] 20mg Q.5D Take 1 tablet (20 mg total) by mouth 2 times daily. Anat chan Ondansetron HCl 4 MG oral Tablet 05-30 00:00: 00 06-27 00:00 :00 No [id number] 8mg Q.[id number] 3D Take 2 tablets (8 mg total) by mouth every 8 hours as needed for nausea. Anat chan Trazodone HCl 50 MG oral Tablet 8- 15:17: 13 05-22 00:00 :00 No every [...] 05-22 00:00: 00 06-27 00:00 :00 No [id number] 15mg Take 1 capsule (15 mg total) by mouth every morning. Anat chan Ketorolac Tromethamin e 10 MG oral Tablet 05-22 00:00: 00 06-06 00:00 :00 No [id number] 10mg Q.25D Take 1 tablet (10 mg total) by mouth every 6 hours as needed for pain. Anat chan Norgestimat e-Eth Estradiol (Sprintec 28) 0.25-35 MG-MCG oral Tablet 05-18 00:00: 00 12-07 00:00 :00 No [id number] 100 1{tbl} QD Take 1 tablet by mouth daily. Anat chan ketorolac (TORADOL) injection 30 mg 05-13 06:15: 00 05-13 06:15 :00 No 30mg 30 mg, Intramuscu lar, ONCE, 1 dose, On Tue05/13/24 at 0115, Routine [facility] Azelastine HCl 0.1 % nasal Solution 05-10 00:00: 00 05-22 00:00 :00 No [id number] 1{spray } Q.5D Use 1 spray in each nostril 2 times daily. Anat chan Pseudoeph-B romphen-DM 30-2-10 MG/5ML oral Syrup 05-10 00:00: 00 05-22 00:00 :00 No [id number] 10mL Q.25D Take 10 mL by mouth 4 times daily as needed. [facility]at [facility] dexamethaso ne (DECADRON PHOSPHATE) injection 10 mg 10-14 05:00: 00 10-14 04:06 :00 No 10mg 10 mg, Intramuscu lar, ONCE, 1 dose, On [place] 10/13/23 at 2300, Routine [facility] ketorolac (TORADOL) injection 30 mg 10-14 05:00: 00 10-14 04:07 :00 No 30mg 30 mg, Intramuscu lar, ONCE, 1 dose, On Tue10/13/23 at 2300, Routine [facility] gabapentin (NEURONTIN) capsule 300 mg 10-14 04:00: 00 10-14 04:07 :00 No 300mg 300 mg, Oral, ONCE, 1 dose, On [place] 10/13/23 at 2200, [facility]VIN [facility] methylPREDN ISolone 4 mg tablets 10-14 00:00: 00 Yes [id number] Take by mouth SEE-INSTRU CTIONS. follow package directions [facility] gabapentin 300 mg capsule 10-13 00:00: 00 Yes [id number] 300mg Take 1 capsule by mouth 3 (three) times daily as needed for Pain (scale 4-6) or Pain (scale 7-10). [facility] ketorolac 10 mg tablet 10-13 00:00: 00 Yes [id number] 9102 10mg Take 1 tablet by mouth every 6 (six) hours as needed for Pain (scale 1-3). [facility] methocarbam oL 750 mg tablet 10-13 00:00: 00 10-17 05:59 :00 No [id number] 750mg Take 1 tablet by mouth 4 (four) times daily for [address] [facility] azithromyci n 500 mg tablet 2022-10 00:00: 00 10-03 05:59 :00 No [id number] 500mg Take 1 tablet by mouth in the morning for [address] [facility] dexamethaso ne sod phos PF injection 10 mg 2022-10 06:00: 00 09-04 05:04 :00 No 10mg 10 mg, Intramuscu lar, ONCE, 1 dose, On 09/04/23 at 0000, Routine [facility] ipratropium -albuteroL (DUONEB) 0.5 mg-3 mg(2.5 mg base)/3 mL nebulizer solution 3 mL 2022-10 05:45: 00 09-04 05:03 :00 No 3mL 3 mL, Inhalation , ONCE NOW, 1 dose, On 09/03/23 at 2345, Routine [facility] albuterol 2.5 mg /3 mL (0.083 %) nebulizer solution 2022-10 00:00: 00 Yes [id number] 2.5mg Inhale 3 mL every 4 (four) hours. May also nebulize one extra every [address] [facility] benzonatate 100 mg capsule 2022-10 00:00: 00 Yes [id number] 200mg Take 2 capsules by mouth 3 (three) times daily as needed for Cough. [facility] predniSONE 20 mg tablet 2022-10 00:00: 00 09-12 05:59 :00 No [id number] 20mg Take 1 tablet by mouth in the morning for [address] [facility] acetaminoph en (TYLENOL) tablet 650 mg 2022-10 17:30: 00 08-29 16:57 :00 No 650mg 650 mg, Oral, ONCE, 1 dose, On Tue08/29/23 at 1130, [facility] ketorolac (TORADOL) injection 60 mg 2022-10 17:30: 00 08-29 16:56 :00 No 60mg 60 mg, Intramuscu lar, ONCE, 1 dose, On Tue08/29/23 at 1130, [facility] famotidine (PEPCID AC) tablet 40 mg 2022-10 16:32: 00 08-29 16:56 :00 No 40mg 40 mg, Oral, ONCE, 1 dose, On Tue08/29/23 at 1045, [facility] ibuprofen 800 mg tablet 2022-10 00:00: 00 Yes [id number] 800mg Take 1 tablet by mouth every 6 (six) hours as needed for Pain (scale 4-6) or Temp > [address] [facility] benzonatate 100 mg capsule 2022-10 00:00: 00 Yes [id number] 100mg Take 1 capsule by mouth 3 (three) times daily as needed for Cough. [facility] oseltamivir (TAMIFLU) 75 mg capsule 2022-10 00:00: 00 Yes [id number] 75mg Take 1 capsule by mouth in the morning and 1 capsule in the evening. [facility] FLUoxetine 40 mg capsule 04-29 08:30: 07 Yes 40mg 1 capsule. [facility] cyclobenzap rine 10 mg tablet 03-29 00:00: [address] [facility] azithromyci n 250 mg tablet 5-07 00:00: 00 09-03 00:00 :00 No [id number] Take 2 tablets on day 1 and 1 tablet on days 2-5. [facility] etonogestre L (NEXPLANON) implant 68 mg 11-05 18:00: 00 11-05 17:05 :00 No [id number] 68mg [facility] phentermine HCl (PHENTERMIN E ORAL) 10-21 10:43: 33 Yes Take by mouth. [facility] fexofenadin e HCl (MAGNOLIA ALLERGY ORAL) 2021-10 16:51: [address] [facility] vitamin w/FA tablet 2021-10 00:00: 00 11-05 00:00 :00 No [id number] 102 1{tbl} Take 1 tablet by mouth in the morning. [facility] docusate 100 mg capsule 2021-10 00:00: 00 11-05 00:00 :00 No [id number] 102 200mg Take 2 capsules by mouth once daily as needed for Constipati on. [facility] ferrous sulfate 325 mg (65 mg iron) tablet 2021-10 00:00: 00 11-05 00:00 :00 No [id number] 102 325mg Take 1 tablet by mouth in the morning and 1 tablet in the evening. [facility] ibuprofen 600 mg tablet 2021-10 00:00: 00 11-05 00:00 :00 No [id number] 102 600mg Take 1 tablet by mouth every 6 (six) hours as needed (Pain). Take with food or milk. [facility] norethindro ne 0.35 mg tablet 2021-10 00:00: 00 11-05 00:00 :00 No [id number] 102 1{tbl} Take 1 tablet by mouth in the morning. [facility] rho(D) immune globulin (RHOGAM) syringe 300 mcg 2021-10 20:35: 22 Yes 300ug 300 mcg, Intramuscu lar, ONCE, For 1 dose, Conditiona l, Routine [facility] HYDROcodone -acetaminop hen (NORCO 5) 5-325 mg tablet 1 tablet 2021-10 20:35: 02 Yes 1{tbl} 1 tablet, Oral, Q6HPRN, Starting on Tue09/27/22 at 1435, Until Discontinu ed, Routine, Pain (scale 7-10) [facility] ibuprofen (IBU) tablet 600 mg 2021-10 20:35: 02 Yes 600mg 600 mg, Oral, Q6HPRN, Starting on Tue09/27/22 at 1435, Until Discontinu ed, Routine, Pain (scale 4-6) [facility] acetaminoph en (TYLENOL) tablet 650 mg 2021-10 20:35: 02 Yes 650mg 650 mg, Oral, Q6HPRN, Starting on Tue09/27/22 at 1435, Until Discontinu ed, Routine, Pain (scale 1-3) [facility] diphenhydrA MINE (BENADRYL) tablet 25 mg 2021-10 20:35: 02 Yes 25mg 25 mg, Oral, Q6HPRN, Starting on Tue09/27/22 at 1435, Until Discontinu ed, Routine, Sleep, Itching [facility] ondansetron (ZOFRAN (PF)) injection 4 mg 2021-10 20:35: 02 Yes 4mg 4 mg, Slow IV Push, Q8HPRN, Starting on Tue09/27/22 at 1435, Until Discontinu ed, Routine, Nausea and Vomiting (N/V) [facility] simethicone (GAS RELIEF (SIMETHICON E)) chewable tablet 160 mg 2021-10 20:35: 02 Yes 160mg 160 mg, Oral, PC+HSPRN, Starting on Tue09/27/22 at 1435, Until Discontinu ed, Routine, Gas [facility] docusate (COLACE) capsule 200 mg 2021-10 20:35: 02 Yes 200mg 200 mg, Oral, QDAILYPRN, Starting on Tue09/27/22 at 1435, Until Discontinu ed, Routine, Constipati on [facility] magnesium hydroxide (MILK OF MAGNESIA) 400 mg/5 mL suspension 30 mL 2021-10 20:35: 02 Yes 30mL 30 mL, Oral, QDAILYPRN, Starting on Tue09/27/22 at 1435, Until Discontinu ed, Routine, Constipati on [facility] benzocaine- menthol (DERMOPLAST ) 20-0.5 % topical spray 2021-10 20:35: 02 Yes Topical, PRN, Starting on Tue09/27/22 at 1435, Until Discontinu ed, Routine, Perineum discomfort [facility] witch Monica (TUCKS) 50 % topical pad 2021-10 20:34: 48 Yes Topical, Q4HPRN, Starting on Tue09/27/22 at 1434, Until Discontinu ed, Routine, rectal/hem orrhoidal pain [facility] oxytocin (PITOCIN) 30 units in NS 500 mL IV infusion 2021-10 20:14: 48 09-27 20:34 :59 No 600mL/h 600 mL/hr, IV Infusion, PRN, For post delivery uterine atony., Starting on Tue09/27/[address] [facility] at 600 mL/hr for 1 hr then 150 mL/hr for [address]
[facility] oxytocin (PITOCIN) 30 units in NS 500 mL IV infusion 2021-10 20:14: 48 09-27 20:34 :59 No 300mL/h 300 mL/hr, IV Infusion, SEE-INSTRU CTIONS, Starting on Tue09/27/[address] [facility] at 300 mL/hr for 1 hr then 150 mL/hr for 1 hr. & nbsp; For post delivery uterotonic
[facility] PIB fentaNYL-ro pivacaine 2 mcg/mL-0.1 % (PF) in NS 200 mL epidural infusion RTU 2021-10 17:25: 00 09-27 20:21 :39 No Epidural, CONTINUOUS PRN, Starting on Tue09/27/22 at 1125, Until Tue09/27/22 at 1421, Routine, Intra-op [facility] lidocaine-e pinephrine (XYLOCAINE W/EPINEPHRI NE) 2 %-1:200,000 injection 2021-10 17:22: 00 09-27 20:21 :39 No Intravenou s, ONCE INTRA PROCEDURE, Starting on Tue09/27/22 at 1122, Until Tue09/27/22 at 1421, Routine, Intra-op [facility] lidocaine 1% (XYLOCAINE) 100 mg/10 mL (1 %) injection 2021-10 17:17: 00 09-27 20:21 :39 No Infiltrati on, ONCE INTRA PROCEDURE, Starting on Tue09/27/22 at 1117, Until Tue09/27/22 at 1421, Routine, Intra-op [facility] esomeprazol e magnesium (NEXIUM ORAL) 2021-10 14:16: 31 Yes Take by mouth. [facility] acetaminoph en 325 mg Cap 2021-10 14:16: 31 Yes Take by mouth. [facility] proMETHazin e (PHENERGAN) 25 mg in NaCl 0.9% (NS) 50 mL IV piggyback 2021-10 11:00: 00 09-27 22:13 :26 No 25mg 25 mg, IV Piggyback, Q4HPRN, Starting on Tue09/27/22 at 0500, Until Tue09/27/22 at 1613, Routine, Nausea and Vomiting (N/V) [facility] FENTanyl PF (SUBLIMAZE (PF)) injection 100 mcg 2021-10 11:00: 00 09-27 22:13 :26 No 100ug 100 mcg, Slow IV Push, Q1HPRN, Starting on Tue09/27/22 at 0500, Until Tue09/27/22 at 1613, Routine, Pain (scale 7-10) [facility] clindamycin in 5 % dextrose [...] (see Comments)< br>Restric vonda use approved by: [employer]
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 oxytocin (PITOCIN) 30 units in NS 500 mL IV infusion 2021-10 11:00: 00 09-27 22:13 :32 No 2mU/min at 2-40 mL/hr, IV Infusion, TITRATE, Starting on Tue09/27/22 at 0500, Until Tue09/27/22 at 1613, ARVIN [facility] lactated ringers IV infusion 500 mL 2021-10 10:29: 52 09-27 22:13 :32 No 500mL at 999 mL/hr, 500 mL, IV Infusion, PRN - SEE INSTRUCTIO NS, Starting on Tue09/27/22 at 0429, Until Tue09/27/22 at 1613, Routine [facility] D5W-LR IV infusion 1,000 mL 2021-10 10:29: 52 09-27 22:13 :32 No 1000mL at 1-125 mL/hr, IV Infusion, TITRATE, Starting on Tue09/27/22 at 0429, Until Tue09/27/22 at 1613, Routine [facility] acetaminoph en 325 mg Cap 2021-10 09:18: 33 Yes Take by mouth. [facility] guaifenesin (MUCINEX ORAL) 2021-10 09:18: 33 Yes Take by mouth. [facility] esomeprazol e magnesium (NEXIUM ORAL) 2021-10 16:15: 19 Yes Take by mouth. [facility] acetaminoph en 325 mg Cap 2021-10 16:15: 19 Yes Take by mouth. [facility] esomeprazol e magnesium (NEXIUM ORAL) 2021-10 11:33: 58 Yes Take by mouth. [facility] acetaminoph en 325 mg Cap 2021-10 11:33: 58 Yes Take by mouth. [facility] esomeprazol e magnesium (NEXIUM ORAL) 2021-10 10:48: 25 Yes Take by mouth. [facility] acetaminoph en 325 mg Cap 2021-10 10:48: 25 Yes Take by mouth. [facility] esomeprazol e magnesium (NEXIUM ORAL) 2021-10 21:40: 31 Yes Take by mouth. [facility] acetaminoph en 325 mg Cap 2021-10 21:40: 31 Yes Take by mouth. [facility] esomeprazol e magnesium (NEXIUM ORAL) 2021-10 23:12: 38 Yes Take by mouth. [facility] acetaminoph en 325 mg Cap 2021-10 23:12: 38 Yes Take by mouth. [facility] esomeprazol e magnesium (NEXIUM ORAL) 2021-10 07:10: 48 Yes Take by mouth. [facility] acetaminoph en 325 mg Cap 2021-10 07:10: 48 Yes Take by mouth. [facility] acetaminoph en 325 mg Cap 2021-10 10:43: 38 Yes Take by mouth. [facility] fexofenadin e HCl (MAGNOLIA ALLERGY ORAL) 2021-10 10:43: [address] [facility] metroNIDAZO LE (FLAGYL) tablet 500 mg 2021-10 01:58: 00 08-23 02:01 :00 No 500mg 500 mg, Oral, ONCE NOW, 1 dose, On 08/22/22 at 2000, Routine
Reason for Anti-Infec tive: Documented Infection< br>Documen vonda Infection Site: Pelvic
Duration of Therapy: [address] [facility] esomeprazol e magnesium (NEXIUM ORAL) 2021-10 20:18: 11 Yes Take by mouth. [facility] acetaminoph en (TYLENOL) 325 mg Cap 2021-10 20:18: 11 Yes Take by mouth. [facility] metroNIDAZO LE 500 mg tablet 2021-10 00:00: 00 Yes [id number] 500mg Take 1 tablet by mouth every 12 (twelve) hours. [facility] esomeprazol e magnesium (NEXIUM ORAL) 2021-10 20:28: 12 Yes Take by mouth. [facility] acetaminoph en (TYLENOL) 325 mg Cap 2021-10 20:28: 12 Yes Take by mouth. [facility] esomeprazol e magnesium (NEXIUM ORAL) 2021-10 16:41: 09 Yes Take by mouth. [facility] acetaminoph en (TYLENOL) 325 mg Cap 2021-10 16:41: 09 Yes Take by mouth. [facility] fexofenadin e HCl (MAGNOLIA ALLERGY ORAL) 2021-10 08:36: [address] [facility] NaCl 0.9% (NS) bolus infusion 1,000 mL 2021-10 13:45: 00 07-31 14:26 :00 No 1000mL at 999 mL/hr, 1,000 mL, IV Piggyback, ONCE, 1 dose, On 07/31/22 at 0845, STAT [facility] esomeprazol e magnesium (NEXIUM ORAL) 2021-10 13:26: 52 Yes Take by mouth. [facility] acetaminoph en (TYLENOL) 325 mg Cap 2021-10 13:26: 52 Yes Take by mouth. [facility] ondansetron 8 mg disintegrat ing tablet 2021-10 00:00: 00 Yes [id number] 8mg Take 1 tablet by mouth every 8 (eight) hours as needed for Nausea and Vomiting (N/V). [facility] fluoxetine HCl (FLUOXETINE ORAL) 2021-10 0 13:21: 03 07-23 00:00 :00 No 20mg Take 20 mg by mouth daily. [facility] Nitrofurant oin&Nit. Macrocryst (MACROBID) 100 mg capsule 100 mg 2021-10 16:15: 00 07-21 15:54 :00 No 100mg 100 mg, Oral, ONCE, 1 dose, On Tue07/21/22 at 1115, Routine
Reason for Anti-Infec tive: Empiric Therapy for Suspected Infection< br>Empiric Therapy Site: Urine
D uration of therapy: [address] [facility] fluoxetine HCl (FLUOXETINE ORAL) 2021-10 11:02: 42 Yes 20mg Take 20 mg by mouth daily. [facility] Nitrofurant oin&Nit. Macrocryst 100 mg capsule 2021-10 00:00: 00 07-30 00:00 :00 No [id number] 100mg Take 1 capsule by mouth in the morning and 1 capsule in the evening. [facility] fluoxetine HCl (FLUOXETINE ORAL) 2021-10 11:05: 17 Yes 20mg Take 20 mg by mouth daily. [facility] montelukast 10 mg tablet 04-30 00:00: 00 Yes [id number] 10mg Take 1 tablet by mouth every evening. [facility] buPROPion SR (WELLBUTRIN SR) 100 mg SR tablet 04-30 00:00: 00 09-03 00:00 :00 No [id number] 100mg Take 1 tablet by mouth in the morning and 1 tablet in the evening. [facility] ondansetron (ZOFRAN) 8 mg tablet 04-30 00:00: 00 07-30 00:00 :00 No [id number] 8mg Take 1 tablet by mouth every 8 (eight) hours as needed for Nausea and Vomiting (N/V). [facility] albuterol 90 mcg/actuati on inhaler 04-07 00:00: 00 09-03 00:00 :00 No [id number] 2{puff} Inhale 2 Puffs every 6 (six) hours as needed for Wheezing or Shortness of Breath. [facility] aspirin 81 mg EC tablet 04-07 00:00: 00 09-28 00:00 :00 No [id number] 81mg Take 1 tablet by mouth daily. [facility] buPROPion SR (WELLBUTRIN SR) 100 mg SR tablet 04-07 00:00: 00 04-28 00:00 :00 No [id number] 100mg Take 1 tablet by mouth 2 (two) times daily. [facility] montelukast 10 mg tablet 04-07 00:00: 00 04-28 00:00 :00 No [id number] 10mg Take 1 tablet by mouth every evening. [facility] guaiFENesin 400 mg tablet 04-04 00:00: 00 07-23 00:00 :00 No [id number] 400mg Take 1 tablet by mouth every 4 (four) hours as needed for Cough. [facility] ondansetron (ZOFRAN) 8 mg tablet 03-01 00:00: 00 04-28 00:00 :00 No [id number] 8mg Take 1 tablet by mouth every 8 (eight) hours as needed for Nausea and Vomiting (N/V). [facility] albuterol 90 mcg/actuati on inhaler 02-21 00:00: 00 07-23 00:00 :00 No [id number] 2{puff} Inhale 2 Puffs every 4 (four) hours as needed for Wheezing or Shortness of Breath. [facility] fluoxetine HCl (FLUOXETINE ORAL) 02-02 09:08: 33 Yes 20mg Take 20 mg by mouth daily. [facility] metoclopram demetris HCl 10 mg tablet 02-02 00:00: 00 07-23 00:00 :00 No [id number] Take one tablet every 8 hour as needed for nausea in [facility] 26-iron ps-folic-dh a (VITAFOL-ON E) 29 mg iron- 1 mg-200 mg per capsule 01-26 00:00: 00 07-23 00:00 :00 No [id number] 1{capsu le} Take 1 capsule by mouth daily for [address] [facility] 26-iron ps-folic-dh a (VITAFOL-ON E) 29 mg iron- 1 mg-200 mg per capsule 01-26 00:00: 00 07-23 00:00 :00 No [id number] 1{capsu le} Take 1 capsule by mouth daily for [address] [facility] Trazodone HCl 50 MG Trazodone HCl 50 MG 03-05 00:00: 00 No 1{table t_at_be dtime_a s_neede d} QD Trazodone HCl 50 MG busPIRone 5 mg tablet 03-27 00:00: 00 01-26 00:00 :00 No [id number] 5mg Take 1 tablet by mouth 2 (two) times daily. [facility] NUVARING 0.12-0.015 mg/24 hr vaginal insert 02-28 00:00: 00 09-30 00:00 :00 No [id number] 1{each} Insert 1 Each into vagina once every month. Insert vaginally and leave in place for 3 consecutiv e weeks, then remove for [address] [facility] vitamin w/FA tablet 01-31 00:00: 00 01-26 00:00 :00 No [id number] 1{tbl} Take 1 tablet by mouth daily. [facility] docusate calcium 240 mg capsule 01-31 00:00: 00 01-26 00:00 :00 No [id number] 240mg Take 1 capsule by mouth once daily as needed for Constipati on. [facility] ferrous sulfate 325 mg (65 mg iron) tablet 01-31 00:00: 00 01-26 00:00 :00 No [id number] 325mg Take 1 tablet by mouth 2 (two) times daily. [facility] ibuprofen 600 mg tablet 01-31 00:00: 00 01-26 00:00 :00 No [id number] 600mg Take 1 tablet by mouth every 6 (six) hours as needed (Pain). Take with food or milk. [facility] Flonase Flonase 2017-10 00:00: 00 Yes Soledad Gardner 2 sprays each nostril prn [facility] Flonase 50 MCG/ACT Flonase 50 MCG/ACT 2017-10 [...] Magnolia Magnolia Yes Soledad Gardner not defined [facility] FLUoxetine HCl 20 MG FLUoxetine HCl 20 [...] Free 6 MO-64 YRS 2022-07-23 00:00:00 Completed [facility] TDAP 2022-07-23 00:00:00 Completed [facility] Influenza Virus Vaccine Quad IM, Preserv and ABX Free 6 MO-64 YRS 2022-07-23 00:00:00 Completed [facility] TDAP 2022-07-23 00:00:00 Completed [facility] Influenza Virus Vaccine Quad IM, Preserv and ABX Free 6 MO-64 YRS 2022-07-23 00:00:00 Completed [facility] TDAP 2022-07-23 00:00:00 Completed [facility] Influenza Virus Vaccine Quad IM, Preserv and ABX Free 6 MO-64 YRS 2022-07-23 00:00:00 Completed [facility] TDAP 2022-07-23 00:00:00 Completed [facility] Influenza Virus Vaccine Quad IM, Preserv and ABX Free 6 MO-64 YRS 2022-07-23 00:00:00 Completed [facility] TDAP 2022-07-23 00:00:00 Completed [facility] Influenza Virus Vaccine Quad IM, Preserv and ABX Free 6 MO-64 YRS 2022-07-23 00:00:00 Completed [facility] TDAP 2022-07-23 00:00:00 Completed [facility] Influenza Virus Vaccine Quad IM, Preserv and ABX Free 6 MO-64 YRS 2022-07-23 00:00:00 Completed [facility] TDAP 2022-07-23 00:00:00 Completed [facility] Influenza Virus Vaccine Quad IM, Preserv and ABX Free 6 MO-64 YRS 2022-07-23 00:00:00 Completed [facility] TDAP 2022-07-23 00:00:00 Completed [facility] Influenza Virus Vaccine Quad IM, Preserv and ABX Free 6 MO-64 YRS 2022-07-23 00:00:00 Completed [facility] TDAP 2022-07-23 00:00:00 Completed [facility] Influenza Virus Vaccine Quad IM, Preserv and ABX Free 6 MO-64 YRS 2022-07-23 00:00:00 Completed [facility] TDAP 2022-07-23 00:00:00 Completed [facility] Influenza Virus Vaccine Quad IM, Preserv and ABX Free 6 MO-64 YRS 2022-07-23 00:00:00 Completed [facility] TDAP 2022-07-23 00:00:00 Completed [facility] Influenza Virus Vaccine Quad IM, Preserv and ABX Free 6 MO-64 YRS 2022-07-23 00:00:00 Completed [facility] TDAP 2022-07-23 00:00:00 Completed [facility] Influenza Virus Vaccine Quad IM, Preserv and ABX Free 6 MO-64 YRS 2022-07-23 00:00:00 Completed [facility] TDAP 2022-07-23 00:00:00 Completed [facility] Influenza Virus Vaccine Quad IM, Preserv and ABX Free 6 MO-64 YRS 2022-07-23 00:00:00 Completed [facility] TDAP 2022-07-23 00:00:00 Completed [facility] Influenza Virus Vaccine Quad IM, Preserv and ABX Free 6 MO-64 YRS 2022-07-23 00:00:00 Completed [facility] TDAP 2022-07-23 00:00:00 Completed [facility] Influenza Virus Vaccine Quad IM, Preserv and ABX Free 6 MO-64 YRS 2022-07-23 00:00:00 Completed [facility] TDAP 2022-07-23 00:00:00 Completed [facility] Influenza Virus Vaccine Quad IM, Preserv and ABX Free 6 MO-64 YRS 2022-07-23 00:00:00 Completed [facility] TDAP 2022-07-23 00:00:00 Completed [facility] Influenza Virus Vaccine Quad IM, Preserv and ABX Free 6 MO-64 YRS 2022-07-23 00:00:00 Completed [facility] TDAP 2022-07-23 00:00:00 Completed [facility] Influenza Virus Vaccine Quad IM, Preserv and ABX Free 6 MO-64 YRS 2022-07-23 00:00:00 Completed [facility] TDAP 2022-07-23 00:00:00 Completed [facility] Influenza Virus Vaccine Quad IM, Preserv and ABX Free 6 MO-64 YRS 2022-07-23 00:00:00 Completed [facility] TDAP 2022-07-23 00:00:00 Completed [facility] Influenza Virus Vaccine Quad IM, Preserv and ABX Free 6 MO-64 YRS 2022-07-23 00:00:00 Completed [facility] TDAP 2022-07-23 00:00:00 Completed [facility] Influenza Virus Vaccine Quad IM, Preserv and ABX Free 6 MO-64 YRS 2022-07-23 00:00:00 Completed [facility] TDAP 2022-07-23 00:00:00 Completed [facility] Influenza Virus Vaccine Quad IM, Preserv and ABX Free 6 MO-64 YRS 2022-07-23 00:00:00 Completed [facility] TDAP 2022-07-23 00:00:00 Completed [facility] Influenza Virus Vaccine Quad IM, Preserv and ABX Free 6 MO-64 YRS 2022-07-23 00:00:00 Completed [facility] TDAP 2022-07-23 00:00:00 Completed [facility] Influenza Virus Vaccine Quad IM, Preserv and ABX Free 6 MO-64 YRS 2022-07-23 00:00:00 Completed [facility] TDAP 2022-07-23 00:00:00 Completed [facility] Influenza Virus Vaccine Quad IM, Preserv and ABX Free 6 MO-64 YRS 2022-07-23 00:00:00 Completed [facility] TDAP 2022-07-23 00:00:00 Completed [facility] Influenza Virus Vaccine Quad IM, Preserv and ABX Free 6 MO-64 YRS 2022-07-23 00:00:00 Completed [facility] TDAP 2022-07-23 00:00:00 Completed [facility] Influenza Virus Vaccine Quad IM, Preserv and ABX Free 6 MO-64 YRS 2022-07-23 00:00:00 Completed [facility] TDAP 2022-07-23 00:00:00 Completed [facility] Influenza Virus Vaccine Quad IM, Preserv and ABX Free 6 MO-64 YRS 2022-07-23 00:00:00 Completed [facility] TDAP 2022-07-23 00:00:00 Completed [facility] Influenza Virus Vaccine Quad IM, Preserv and ABX Free 6 MO-64 YRS 2022-07-23 00:00:00 Completed [facility] TDAP 2022-07-23 00:00:00 Completed [facility] Influenza Virus Vaccine Quad IM, Preserv and ABX Free 6 MO-64 YRS 2022-07-23 00:00:00 Completed [facility] TDAP 2022-07-23 00:00:00 Completed [facility] Influenza Virus Vaccine Quad IM, Preserv and ABX Free 6 MO-64 YRS 2022-07-23 00:00:00 Completed [facility] TDAP 2022-07-23 00:00:00 Completed [facility] Influenza Virus Vaccine Quad IM, Preserv and ABX Free 6 MO-64 YRS 2022-07-23 00:00:00 Completed [facility] TDAP 2022-07-23 00:00:00 Completed [facility] Influenza Virus Vaccine Quad IM, Preserv and ABX Free 6 MO-64 YRS 2022-07-23 00:00:00 Completed [facility] TDAP 2022-07-23 00:00:00 Completed [facility] Influenza Virus Vaccine Quad IM, Preserv and ABX Free 6 MO-64 YRS 2022-07-23 00:00:00 Completed [facility] TDAP 2022-07-23 00:00:00 Completed [facility] Influenza Virus Vaccine Quad IM, Preserv and ABX Free 6 MO-64 YRS 2022-07-23 00:00:00 Completed [facility] TDAP 2022-07-23 00:00:00 Completed [facility] Influenza Virus Vaccine Quad IM, Preserv and ABX Free 6 MO-64 YRS 2022-07-23 00:00:00 Completed [facility] TDAP 2022-07-23 00:00:00 Completed [facility] Influenza Virus Vaccine Quad IM, Preserv and ABX Free 6 MO-64 YRS 2022-07-23 00:00:00 Completed [facility] TDAP 2022-07-23 00:00:00 Completed [facility] Influenza Virus Vaccine Quad IM, Preserv and ABX Free 6 MO-64 YRS 2022-07-23 00:00:00 Completed [facility] TDAP 2022-07-23 00:00:00 Completed [facility] Influenza Virus Vaccine Quad IM, Preserv and ABX Free 6 MO-64 YRS 2022-07-23 00:00:00 Completed [facility] TDAP 2022-07-23 00:00:00 Completed [facility] Influenza Virus Vaccine Quad IM, Preserv and ABX Free 6 MO-64 YRS 2022-07-23 00:00:00 Completed [facility] TDAP 2022-07-23 00:00:00 Completed [facility] Influenza Virus Vaccine Quad IM, Preserv and ABX Free 6 MO-64 YRS 2022-07-23 00:00:00 Completed [facility] TDAP 2022-07-23 00:00:00 Completed [facility] Influenza Virus Vaccine Quad IM, Preserv and ABX Free 6 MO-64 YRS 2022-07-23 00:00:00 Completed [facility] TDAP 2022-07-23 00:00:00 Completed [facility] Influenza Virus Vaccine Quad IM, Preserv and ABX Free 6 MO-64 YRS (FLUCELVAX) 2022-07-23 00:00:00 Completed TDAP 2022-07-23 00:00:00 Completed Influenza Virus Vaccine Quad IM, Preserv and ABX Free 6 MO-64 YRS (FLUCELVAX) 2022-07-23 00:00:00 Completed TDAP 2022-07-23 00:00:00 Completed Influenza Virus Vaccine 2021-07-31 00:00:00 Completed [facility] Influenza Virus Vaccine 2021-07-31 00:00:00 Completed [facility] SARS-COV-2 COVID-19 OTIS/J&J VACCINE 2021-06-04 00:00:00 Completed [facility] SARS-COV-2 COVID-19 OTIS/J&J VACCINE 2021-06-04 00:00:00 Completed [facility] SARS-COV-2 COVID-19 OTIS/J&J VACCINE 2021-06-04 00:00:00 Completed [facility] SARS-COV-2 COVID-19 OTIS/J&J VACCINE 2021-06-04 00:00:00 Completed [facility] SARS-COV-2 COVID-19 OTIS/J&J VACCINE 2021-06-04 00:00:00 Completed [facility] SARS-COV-2 COVID-19 OTIS/J&J VACCINE 2021-06-04 00:00:00 Completed [facility] SARS-COV-2 COVID-19 OTIS/J&J VACCINE 2021-06-04 00:00:00 Completed [facility] SARS-COV-2 COVID-19 OTIS/J&J VACCINE 2021-06-04 00:00:00 Completed [facility] SARS-COV-2 COVID-19 OTIS/J&J VACCINE 2021-06-04 00:00:00 Completed [facility] SARS-COV-2 COVID-19 OTIS/J&J VACCINE 2021-06-04 00:00:00 Completed [facility] SARS-COV-2 COVID-19 OTIS/J&J VACCINE 2021-06-04 00:00:00 Completed [facility] SARS-COV-2 COVID-19 OTIS/J&J VACCINE 2021-06-04 00:00:00 Completed [facility] SARS-COV-2 COVID-19 OTIS/J&J VACCINE 2021-06-04 00:00:00 Completed [facility] SARS-COV-2 COVID-19 OTIS/J&J VACCINE 2021-06-04 00:00:00 Completed [facility] SARS-COV-2 COVID-19 OTIS/J&J VACCINE 2021-06-04 00:00:00 Completed [facility] SARS-COV-2 COVID-19 OTIS/J&J VACCINE 2021-06-04 00:00:00 Completed [facility] SARS-COV-2 COVID-19 OTIS/J&J VACCINE 2021-06-04 00:00:00 Completed [facility] SARS-COV-2 COVID-19 OTIS/J&J VACCINE 2021-06-04 00:00:00 Completed [facility] SARS-COV-2 COVID-19 OTIS/J&J VACCINE 2021-06-04 00:00:00 Completed [facility] SARS-COV-2 COVID-19 OTIS/J&J VACCINE 2021-06-04 00:00:00 Completed [facility] SARS-COV-2 COVID-19 OTIS/J&J VACCINE 2021-06-04 00:00:00 Completed [facility] SARS-COV-2 COVID-19 OTIS/J&J VACCINE 2021-06-04 00:00:00 Completed [facility] SARS-COV-2 COVID-19 OTIS/J&J VACCINE 2021-06-04 00:00:00 Completed [facility] SARS-COV-2 COVID-19 OTIS/J&J VACCINE 2021-06-04 00:00:00 Completed [facility] SARS-COV-2 COVID-19 OTIS/J&J VACCINE 2021-06-04 00:00:00 Completed [facility] SARS-COV-2 COVID-19 OTIS/J&J VACCINE 2021-06-04 00:00:00 Completed [facility] SARS-COV-2 COVID-19 OTIS/J&J VACCINE 2021-06-04 00:00:00 Completed [facility] SARS-COV-2 COVID-19 OTIS/J&J VACCINE 2021-06-04 00:00:00 Completed [facility] SARS-COV-2 COVID-19 OTIS/J&J VACCINE 2021-06-04 00:00:00 Completed [facility] SARS-COV-2 COVID-19 OTIS/J&J VACCINE 2021-06-04 00:00:00 Completed [facility] SARS-COV-2 COVID-19 OTIS/J&J VACCINE 2021-06-04 00:00:00 Completed [facility] SARS-COV-2 COVID-19 OTIS/J&J VACCINE 2021-06-04 00:00:00 Completed [facility] SARS-COV-2 COVID-19 OTIS/J&J VACCINE 2021-06-04 00:00:00 Completed [facility] SARS-COV-2 COVID-19 OTIS/J&J VACCINE 2021-06-04 00:00:00 Completed [facility] SARS-COV-2 COVID-19 OTIS/J&J VACCINE 2021-06-04 00:00:00 Completed [facility] SARS-COV-2 COVID-19 OTIS/J&J VACCINE 2021-06-04 00:00:00 Completed [facility] SARS-COV-2 COVID-19 OTIS/J&J VACCINE 2021-06-04 00:00:00 Completed [facility] SARS-COV-2 COVID-19 OTIS/J&J VACCINE 2021-06-04 00:00:00 Completed [facility] SARS-COV-2 COVID-19 OTIS/J&J VACCINE 2021-06-04 00:00:00 Completed [facility] SARS-COV-2 COVID-19 OTIS/J&J VACCINE 2021-06-04 00:00:00 Completed [facility] SARS-COV-2 COVID-19 OTIS/J&J VACCINE 2021-06-04 00:00:00 Completed [facility] SARS-COV-2 COVID-19 OTIS/J&J VACCINE 2021-06-04 00:00:00 Completed [facility] SARS-COV-2 COVID-19 OTIS/J&J VACCINE 2021-06-04 00:00:00 Completed [facility] SARS-COV-2 COVID-19 OTIS/J&J VACCINE 2021-06-04 00:00:00 Completed [facility] SARS-COV-2 COVID-19 OTIS/J&J VACCINE 2021-06-04 00:00:00 Completed [facility] SARS-COV-2 COVID-19 OTIS/J&J VACCINE 2021-06-04 00:00:00 Completed [facility] SARS-COV-2 COVID-19 OTIS/J&J VACCINE 2021-06-04 00:00:00 Completed [facility] SARS-COV-2 COVID-19 OTIS/J&J VACCINE 2021-06-04 00:00:00 Completed [facility] SARS-COV-2 COVID-19 OTIS/J&J VACCINE 2021-06-04 00:00:00 Completed [facility] SARS-COV-2 COVID-19 OTIS/J&J VACCINE 2021-06-04 00:00:00 Completed [facility] SARS-COV-2 COVID-19 OTIS/J&J VACCINE 2021-06-04 00:00:00 Completed [facility] SARS-COV-2 COVID-19 OTIS/J&J VACCINE 2021-06-04 00:00:00 Completed [facility] SARS-COV-2 COVID-19 OTIS/J&J VACCINE 2021-06-04 00:00:00 Completed [facility] SARS-COV-2 COVID-19 OTIS/J&J VACCINE 2021-06-04 00:00:00 Completed [facility] SARS-COV-2 COVID-19 OTIS/J&J VACCINE 2021-06-04 00:00:00 Completed [facility] SARS-COV-2 COVID-19 OTIS/J&J VACCINE 2021-06-04 00:00:00 Completed SARS-COV-2 COVID-19 OTIS/J&J VACCINE 2021-06-04 00:00:00 Completed TDAP (ADACEL) VACCINE 2019-12-03 00:00:00 Completed [facility] TDAP (ADACEL) VACCINE 2019-12-03 00:00:00 Completed [facility] TDAP (ADACEL) VACCINE 2019-12-03 00:00:00 Completed [facility] TDAP (ADACEL) VACCINE 2019-12-03 00:00:00 Completed [facility] TDAP (ADACEL) VACCINE 2019-12-03 00:00:00 Completed [facility] TDAP (ADACEL) VACCINE 2019-12-03 00:00:00 Completed [facility] TDAP (ADACEL) VACCINE 2019-12-03 00:00:00 Completed [facility] TDAP (ADACEL) VACCINE 2019-12-03 00:00:00 Completed [facility] TDAP (ADACEL) VACCINE 2019-12-03 00:00:00 Completed [facility] TDAP (ADACEL) VACCINE 2019-12-03 00:00:00 Completed [facility] TDAP (ADACEL) VACCINE 2019-12-03 00:00:00 Completed [facility] TDAP (ADACEL) VACCINE 2019-12-03 00:00:00 Completed [facility] TDAP (ADACEL) VACCINE 2019-12-03 00:00:00 Completed [facility] TDAP (ADACEL) VACCINE 2019-12-03 00:00:00 Completed [facility] TDAP (ADACEL) VACCINE 2019-12-03 00:00:00 Completed [facility] TDAP (ADACEL) VACCINE 2019-12-03 00:00:00 Completed [facility] TDAP (ADACEL) VACCINE 2019-12-03 00:00:00 Completed [facility] TDAP (ADACEL) VACCINE 2019-12-03 00:00:00 Completed [facility] TDAP (ADACEL) VACCINE 2019-12-03 00:00:00 Completed [facility] TDAP (ADACEL) VACCINE 2019-12-03 00:00:00 Completed [facility] TDAP (ADACEL) VACCINE 2019-12-03 00:00:00 Completed [facility] TDAP (ADACEL) VACCINE 2019-12-03 00:00:00 Completed [facility] TDAP (ADACEL) VACCINE 2019-12-03 00:00:00 Completed [facility] TDAP (ADACEL) VACCINE 2019-12-03 00:00:00 Completed [facility] TDAP (ADACEL) VACCINE 2019-12-03 00:00:00 Completed [facility] TDAP (ADACEL) VACCINE 2019-12-03 00:00:00 Completed [facility] TDAP (ADACEL) VACCINE 2019-12-03 00:00:00 Completed [facility] TDAP (ADACEL) VACCINE 2019-12-03 00:00:00 Completed [facility] TDAP (ADACEL) VACCINE 2019-12-03 00:00:00 Completed [facility] TDAP (ADACEL) VACCINE 2019-12-03 00:00:00 Completed [facility] TDAP (ADACEL) VACCINE 2019-12-03 00:00:00 Completed [facility] TDAP (ADACEL) VACCINE 2019-12-03 00:00:00 Completed [facility] TDAP (ADACEL) VACCINE 2019-12-03 00:00:00 Completed [facility] TDAP (ADACEL) VACCINE 2019-12-03 00:00:00 Completed [facility] TDAP (ADACEL) VACCINE 2019-12-03 00:00:00 Completed [facility] TDAP (ADACEL) VACCINE 2019-12-03 00:00:00 Completed [facility] TDAP (ADACEL) VACCINE 2019-12-03 00:00:00 Completed [facility] TDAP (ADACEL) VACCINE 2019-12-03 00:00:00 Completed [facility] TDAP (ADACEL) VACCINE 2019-12-03 00:00:00 Completed [facility] TDAP (ADACEL) VACCINE 2019-12-03 00:00:00 Completed [facility] TDAP (ADACEL) VACCINE 2019-12-03 00:00:00 Completed [facility] TDAP (ADACEL) VACCINE 2019-12-03 00:00:00 Completed [facility] TDAP (ADACEL) VACCINE 2019-12-03 00:00:00 Completed [facility] TDAP (ADACEL) VACCINE 2019-12-03 00:00:00 Completed [facility] TDAP (ADACEL) VACCINE 2019-12-03 00:00:00 Completed [facility] TDAP (ADACEL) VACCINE 2019-12-03 00:00:00 Completed [facility] TDAP (ADACEL) VACCINE 2019-12-03 00:00:00 Completed [facility] TDAP (ADACEL) VACCINE 2019-12-03 00:00:00 Completed [facility] TDAP (ADACEL) VACCINE 2019-12-03 00:00:00 Completed [facility] TDAP (ADACEL) VACCINE 2019-12-03 00:00:00 Completed [facility] TDAP (ADACEL) VACCINE 2019-12-03 00:00:00 Completed [facility] TDAP (ADACEL) VACCINE 2019-12-03 00:00:00 Completed [facility] TDAP (ADACEL) VACCINE 2019-12-03 00:00:00 Completed [facility] TDAP (ADACEL) VACCINE 2019-12-03 00:00:00 Completed [facility] TDAP (ADACEL) VACCINE 2019-12-03 00:00:00 Completed [facility] TDAP (ADACEL) VACCINE 2019-12-03 00:00:00 Completed [facility] TDAP (ADACEL) VACCINE 2019-12-03 00:00:00 Completed [facility] Adacel (Tdap) Adacel (Tdap) 2019-08-29 13:16:00 Completed [facility] Adacel (Tdap) Adacel (Tdap) 2019-08-29 13:16:00 Completed [facility] TDAP 2019-08-29 00:00:00 Completed [facility] TDAP 2019-08-29 00:00:00 Completed [facility] TDAP 2019-08-29 00:00:00 Completed [facility] TDAP 2019-08-29 00:00:00 Completed [facility] TDAP 2019-08-29 00:00:00 Completed [facility] TDAP 2019-08-29 00:00:00 Completed [facility] TDAP 2019-08-29 00:00:00 Completed [facility] TDAP 2019-08-29 00:00:00 Completed [facility] TDAP 2019-08-29 00:00:00 Completed [facility] TDAP 2019-08-29 00:00:00 Completed [facility] TDAP 2019-08-29 00:00:00 Completed [facility] TDAP 2019-08-29 00:00:00 Completed [facility] TDAP 2019-08-29 00:00:00 Completed [facility] TDAP 2019-08-29 00:00:00 Completed [facility] TDAP 2019-08-29 00:00:00 Completed [facility] TDAP 2019-08-29 00:00:00 Completed [facility] TDAP 2019-08-29 00:00:00 Completed [facility] TDAP 2019-08-29 00:00:00 Completed [facility] TDAP 2019-08-29 00:00:00 Completed [facility] TDAP 2019-08-29 00:00:00 Completed [facility] TDAP 2019-08-29 00:00:00 Completed [facility] TDAP 2019-08-29 00:00:00 Completed [facility] TDAP 2019-08-29 00:00:00 Completed [facility] TDAP 2019-08-29 00:00:00 Completed [facility] TDAP 2019-08-29 00:00:00 Completed [facility] TDAP 2019-08-29 00:00:00 Completed [facility] TDAP 2019-08-29 00:00:00 Completed [facility] TDAP 2019-08-29 00:00:00 Completed [facility] TDAP 2019-08-29 00:00:00 Completed [facility] TDAP 2019-08-29 00:00:00 Completed [facility] TDAP 2019-08-29 00:00:00 Completed [facility] TDAP 2019-08-29 00:00:00 Completed [facility] TDAP 2019-08-29 00:00:00 Completed [facility] TDAP 2019-08-29 00:00:00 Completed [facility] TDAP 2019-08-29 00:00:00 Completed [facility] TDAP 2019-08-29 00:00:00 Completed [facility] TDAP 2019-08-29 00:00:00 Completed TDAP 2019-08-29 00:00:00 Completed Influenza Virus Vaccine Quad .5 mL IM 6+ MO 2019-08-02 00:00:00 Completed [facility] Influenza Virus Vaccine Quad .5 mL IM 6+ MO 2019-08-02 00:00:00 Completed [facility] Influenza Virus Vaccine Quad .5 mL IM 6+ MO 2019-08-02 00:00:00 Completed [facility] Influenza Virus Vaccine Quad .5 mL IM 6+ MO 2019-08-02 00:00:00 Completed [facility] Influenza Virus Vaccine Quad .5 mL IM 6+ MO 2019-08-02 00:00:00 Completed [facility] Influenza Virus Vaccine Quad .5 mL IM 6+ MO 2019-08-02 00:00:00 Completed [facility] Influenza Virus Vaccine Quad .5 mL IM 6+ MO 2019-08-02 00:00:00 Completed [facility] Influenza Virus Vaccine Quad .5 mL IM 6+ MO 2019-08-02 00:00:00 Completed [facility] Influenza Virus Vaccine Quad .5 mL IM 6+ MO 2019-08-02 00:00:00 Completed [facility] Influenza Virus Vaccine Quad .5 mL IM 6+ MO 2019-08-02 00:00:00 Completed [facility] Influenza Virus Vaccine Quad .5 mL IM 6+ MO 2019-08-02 00:00:00 Completed [facility] Influenza Virus Vaccine Quad .5 mL IM 6+ MO 2019-08-02 00:00:00 Completed [facility] Influenza Virus Vaccine Quad .5 mL IM 6+ MO 2019-08-02 00:00:00 Completed [facility] Influenza Virus Vaccine Quad .5 mL IM 6+ MO 2019-08-02 00:00:00 Completed [facility] Influenza Virus Vaccine Quad .5 mL IM 6+ MO 2019-08-02 00:00:00 Completed [facility] Influenza Virus Vaccine Quad .5 mL IM 6+ MO 2019-08-02 00:00:00 Completed [facility] Influenza Virus Vaccine Quad .5 mL IM 6+ MO 2019-08-02 00:00:00 Completed [facility] Influenza Virus Vaccine Quad .5 mL IM 6+ MO 2019-08-02 00:00:00 Completed [facility] Influenza Virus Vaccine Quad .5 mL IM 6+ MO 2019-08-02 00:00:00 Completed [facility] Influenza Virus Vaccine Quad .5 mL IM 6+ MO 2019-08-02 00:00:00 Completed [facility] Influenza Virus Vaccine Quad .5 mL IM 6+ MO 2019-08-02 00:00:00 Completed [facility] Influenza Virus Vaccine Quad .5 mL IM 6+ MO 2019-08-02 00:00:00 Completed [facility] Influenza Virus Vaccine Quad .5 mL IM 6+ MO 2019-08-02 00:00:00 Completed [facility] Influenza Virus Vaccine Quad .5 mL IM 6+ MO 2019-08-02 00:00:00 Completed [facility] Influenza Virus Vaccine Quad .5 mL IM 6+ MO 2019-08-02 00:00:00 Completed [facility] Influenza Virus Vaccine Quad .5 mL IM 6+ MO 2019-08-02 00:00:00 Completed [facility] Influenza Virus Vaccine Quad .5 mL IM 6+ MO 2019-08-02 00:00:00 Completed [facility] Influenza Virus Vaccine Quad .5 mL IM 6+ MO 2019-08-02 00:00:00 Completed [facility] Influenza Virus Vaccine Quad .5 mL IM 6+ MO 2019-08-02 00:00:00 Completed [facility] Influenza Virus Vaccine Quad .5 mL IM 6+ MO 2019-08-02 00:00:00 Completed [facility] Influenza Virus Vaccine Quad .5 mL IM 6+ MO 2019-08-02 00:00:00 Completed [facility] Influenza Virus Vaccine Quad .5 mL IM 6+ MO 2019-08-02 00:00:00 Completed [facility] Influenza Virus Vaccine Quad .5 mL IM 6+ MO 2019-08-02 00:00:00 Completed [facility] Influenza Virus Vaccine Quad .5 mL IM 6+ MO 2019-08-02 00:00:00 Completed [facility] Influenza Virus Vaccine Quad .5 mL IM 6+ MO 2019-08-02 00:00:00 Completed [facility] Influenza Virus Vaccine Quad .5 mL IM 6+ MO 2019-08-02 00:00:00 Completed [facility] Influenza Virus Vaccine Quad .5 mL IM 6+ MO 2019-08-02 00:00:00 Completed [facility] Influenza Virus Vaccine Quad .5 mL IM 6+ MO 2019-08-02 00:00:00 Completed [facility] Influenza Virus Vaccine Quad .5 mL IM 6+ MO 2019-08-02 00:00:00 Completed [facility] Influenza Virus Vaccine Quad .5 mL IM 6+ MO 2019-08-02 00:00:00 Completed [facility] Influenza Virus Vaccine Quad .5 mL IM 6+ MO 2019-08-02 00:00:00 Completed [facility] Influenza Virus Vaccine Quad .5 mL IM 6+ MO 2019-08-02 00:00:00 Completed [facility] Influenza Virus Vaccine Quad .5 mL IM 6+ MO 2019-08-02 00:00:00 Completed [facility] Influenza Virus Vaccine Quad .5 mL IM 6+ MO 2019-08-02 00:00:00 Completed [facility] Influenza Virus Vaccine Quad .5 mL IM 6+ MO 2019-08-02 00:00:00 Completed [facility] Influenza Virus Vaccine Quad .5 mL IM 6+ MO 2019-08-02 00:00:00 Completed [facility] Influenza Virus Vaccine Quad .5 mL IM 6+ MO 2019-08-02 00:00:00 Completed [facility] Influenza Virus Vaccine Quad .5 mL IM 6+ MO 2019-08-02 00:00:00 Completed [facility] Influenza Virus Vaccine Quad .5 mL IM 6+ MO 2019-08-02 00:00:00 Completed [facility] Influenza Virus Vaccine Quad .5 mL IM 6+ MO 2019-08-02 00:00:00 Completed [facility] Influenza Virus Vaccine Quad .5 mL IM 6+ MO 2019-08-02 00:00:00 Completed [facility] Influenza Virus Vaccine Quad .5 mL IM 6+ MO 2019-08-02 00:00:00 Completed [facility] Influenza Virus Vaccine Quad .5 mL IM 6+ MO 2019-08-02 00:00:00 Completed [facility] Influenza Virus Vaccine Quad .5 mL IM 6+ MO 2019-08-02 00:00:00 Completed [facility] Influenza Virus Vaccine Quad .5 mL IM 6+ MO 2019-08-02 00:00:00 Completed [facility] Influenza Virus Vaccine Quad .5 mL IM 6+ MO (FLUZONE/FLULAVAL/F LUARIX) 2019-08-02 00:00:00 Completed [facility] Influenza Virus Vaccine Quad .5 mL IM 6+ MO (FLUZONE/FLULAVAL/F LUARIX) 2019-08-02 00:00:00 Completed [facility] Afluria single dose Afluria single dose 2019-07-29 13:16:00 Completed [facility] Afluria single dose Afluria single dose 2019-07-29 13:16:00 Completed [facility] Afluria single dose Afluria single dose Unknown Completed [facility] Adacel (Tdap) Adacel (Tdap) Unknown Completed [facility] Influenza Virus Vaccine Quad .5 mL IM 6+ MO (FLUZONE/FLULAVAL/F LUARIX) Unknown Completed [facility] TDAP (ADACEL) VACCINE Unknown Completed [facility] SARS-COV-2 COVID-19 OTIS/J&J VACCINE Unknown Completed [facility] Influenza Virus Vaccine Quad IM, Preserv and ABX Free 6 MO-64 YRS (FLUCELVAX) Unknown Completed [facility] Influenza Virus Vaccine Unknown Completed [facility] Influenza Virus Vaccine Quad .5 mL IM 6+ MO (FLUZONE/FLULAVAL/F LUARIX) Unknown Completed [facility] TDAP (ADACEL) VACCINE Unknown Completed [facility] SARS-COV-2 COVID-19 OTIS/J&J VACCINE Unknown Completed [facility] Influenza Virus Vaccine Unknown Completed [facility] Influenza Virus Vaccine Quad .5 mL IM 6+ MO (FLUZONE/FLULAVAL/F LUARIX) Unknown Completed [facility] TDAP (ADACEL) VACCINE Unknown Completed [facility] SARS-COV-2 COVID-19 OTIS/J&J VACCINE Unknown Completed [facility] Influenza Virus Vaccine Unknown Completed [facility] Influenza Virus Vaccine Quad .5 mL IM 6+ MO (FLUZONE/FLULAVAL/F LUARIX) Unknown Completed [facility] TDAP (ADACEL) VACCINE Unknown Completed [facility] SARS-COV-2 COVID-19 OTIS/J&J VACCINE Unknown Completed [facility] Influenza Virus Vaccine Unknown Completed [facility] Influenza Virus Vaccine Quad .5 mL IM 6+ MO (FLUZONE/FLULAVAL/F LUARIX) Unknown Completed [facility] TDAP (ADACEL) VACCINE Unknown Completed [facility] SARS-COV-2 COVID-19 OTIS/J&J VACCINE Unknown Completed [facility] Influenza Virus Vaccine Unknown Completed [facility] Influenza Virus Vaccine Quad .5 mL IM 6+ MO (FLUZONE/FLULAVAL/F LUARIX) Unknown Completed [facility] TDAP (ADACEL) VACCINE Unknown Completed [facility] SARS-COV-2 COVID-19 OTIS/J&J VACCINE Unknown Completed [facility] Influenza Virus Vaccine Unknown Completed [facility] Influenza Virus Vaccine Quad .5 mL IM 6+ MO (FLUZONE/FLULAVAL/F LUARIX) Unknown Completed [facility] TDAP (ADACEL) VACCINE Unknown Completed [facility] SARS-COV-2 COVID-19 OTIS/J&J VACCINE Unknown Completed [facility] Influenza Virus Vaccine Unknown Completed [facility] Influenza Virus Vaccine Quad .5 mL IM 6+ MO (FLUZONE/FLULAVAL/F LUARIX) Unknown Completed [facility] TDAP (ADACEL) VACCINE Unknown [facility] [facility] SARS-COV-2 COVID-19 OTIS/J&J VACCINE Unknown Completed [facility] Influenza Virus Vaccine Unknown Completed [facility] Influenza Virus Vaccine Quad .5 mL IM 6+ MO (FLUZONE/FLULAVAL/F LUARIX) Unknown Completed [facility] TDAP (ADACEL) VACCINE Unknown Completed [facility] SARS-COV-2 COVID-19 OTIS/J&J VACCINE Unknown Completed [facility] Influenza Virus Vaccine Unknown Completed [facility] Influenza Virus Vaccine Quad .5 mL IM 6+ MO (FLUZONE/FLULAVAL/F LUARIX) Unknown Completed [facility] TDAP (ADACEL) VACCINE Unknown Completed [facility] SARS-COV-2 COVID-19 OTIS/J&J VACCINE Unknown Completed [facility] Influenza Virus Vaccine Quad .5 mL IM 6+ MO (FLUZONE/FLULAVAL/F LUARIX) Unknown Completed [facility] TDAP (ADACEL) VACCINE Unknown Completed [facility] SARS-COV-2 COVID-19 OTIS/J&J VACCINE Unknown Completed [facility] Influenza Virus Vaccine Quad .5 mL IM 6+ MO (FLUZONE/FLULAVAL/F LUARIX) Unknown Completed [facility] TDAP (ADACEL) VACCINE Unknown Completed [facility] Influenza Virus Vaccine Quad .5 mL IM 6+ MO (FLUZONE/FLULAVAL/F LUARIX) Unknown Completed [facility] TDAP (ADACEL) VACCINE Unknown Completed [facility] Influenza Virus Vaccine Quad .5 mL IM 6+ MO (FLUZONE/FLULAVAL/F LUARIX) Unknown Completed [facility] TDAP (ADACEL) VACCINE Unknown Completed [facility] Influenza Virus Vaccine Quad .5 mL IM 6+ MO (FLUZONE/FLULAVAL/F LUARIX) Unknown Completed [facility] TDAP (ADACEL) VACCINE Unknown Completed [facility] Influenza Virus Vaccine Quad .5 mL IM 6+ MO (FLUZONE/FLULAVAL/F LUARIX) Unknown Completed [facility] TDAP (ADACEL) VACCINE Unknown Completed [facility] Influenza Virus Vaccine Quad .5 mL IM 6+ MO (FLUZONE/FLULAVAL/F LUARIX) Unknown Completed [facility] TDAP (ADACEL) VACCINE Unknown Completed [facility] Influenza Virus Vaccine Quad .5 mL IM 6+ MO (FLUZONE/FLULAVAL/F LUARIX) Unknown Completed [facility] TDAP (ADACEL) VACCINE Unknown Completed [facility] Influenza Virus Vaccine Quad .5 mL IM 6+ MO (FLUZONE/FLULAVAL/F LUARIX) Unknown Completed [facility] TDAP (ADACEL) VACCINE Unknown Completed [facility] Influenza Virus Vaccine Quad .5 mL IM 6+ MO (FLUZONE/FLULAVAL/F LUARIX) Unknown Completed [facility] TDAP (ADACEL) VACCINE Unknown Completed [facility] Influenza Virus Vaccine Quad .5 mL IM 6+ MO (FLUZONE/FLULAVAL/F LUARIX) Unknown Completed [facility] TDAP (ADACEL) VACCINE Unknown Completed [facility] SARS-COV-2 COVID-19 OTIS/J&J VACCINE Unknown Completed [facility] Influenza Virus Vaccine Quad IM, Preserv and ABX Free 6 MO-64 YRS (FLUCELVAX) Unknown Completed [facility] Influenza Virus Vaccine Unknown Completed [facility] Influenza Virus Vaccine Quad .5 mL IM 6+ MO (FLUZONE/FLULAVAL/F LUARIX) Unknown Completed [facility] TDAP (ADACEL) VACCINE Unknown Completed [facility] SARS-COV-2 COVID-19 OTIS/J&J VACCINE Unknown Completed [facility] Influenza Virus Vaccine Quad IM, Preserv and ABX Free 6 MO-64 YRS (FLUCELVAX) Unknown Completed [facility] Influenza Virus Vaccine Unknown Completed [facility] Influenza Virus Vaccine Quad .5 mL IM 6+ MO (FLUZONE/FLULAVAL/F LUARIX) Unknown Completed [facility] TDAP (ADACEL) VACCINE Unknown Completed [facility] SARS-COV-2 COVID-19 OTIS/J&J VACCINE Unknown Completed [facility] Influenza Virus Vaccine Quad IM, Preserv and ABX Free 6 MO-64 YRS (FLUCELVAX) Unknown Completed [facility] Influenza Virus Vaccine Unknown Completed [facility] Influenza Virus Vaccine Quad .5 mL IM 6+ MO (FLUZONE/FLULAVAL/F LUARIX) Unknown Completed [facility] TDAP (ADACEL) VACCINE Unknown Completed [facility] SARS-COV-2 COVID-19 OTIS/J&J VACCINE Unknown Completed [facility] Influenza Virus Vaccine Quad IM, Preserv and ABX Free 6 MO-64 YRS (FLUCELVAX) Unknown Completed [facility] Influenza Virus Vaccine Unknown Completed [facility] Influenza Virus Vaccine Quad .5 mL IM 6+ MO (FLUZONE/FLULAVAL/F LUARIX) Unknown Completed [facility] TDAP (ADACEL) VACCINE Unknown Completed [facility] SARS-COV-2 COVID-19 OTIS/J&J VACCINE Unknown Completed [facility] Influenza Virus Vaccine Quad IM, Preserv and ABX Free 6 MO-64 YRS (FLUCELVAX) Unknown Completed [facility] Influenza Virus Vaccine Unknown Completed [facility] Influenza Virus Vaccine Quad .5 mL IM 6+ MO (FLUZONE/FLULAVAL/F LUARIX) Unknown Completed [facility] TDAP (ADACEL) VACCINE Unknown Completed [facility] SARS-COV-2 COVID-19 OTIS/J&J VACCINE Unknown Completed [facility] Influenza Virus Vaccine Quad IM, Preserv and ABX Free 6 MO-64 YRS (FLUCELVAX) Unknown Completed [facility] Influenza Virus Vaccine Unknown Completed [facility] Influenza Virus Vaccine Quad .5 mL IM 6+ MO (FLUZONE/FLULAVAL/F LUARIX) Unknown Completed [facility] TDAP (ADACEL) VACCINE Unknown Completed [facility] SARS-COV-2 COVID-19 OTIS/J&J VACCINE Unknown Completed [facility] Influenza Virus Vaccine Quad IM, Preserv and ABX Free 6 MO-64 YRS (FLUCELVAX) Unknown Completed [facility] Influenza Virus Vaccine Unknown Completed [facility] Influenza Virus Vaccine Quad .5 mL IM 6+ MO (FLUZONE/FLULAVAL/F LUARIX) Unknown Completed [facility] TDAP Unknown Completed [facility] SARS-COV-2 COVID-19 OTIS/J&J VACCINE Unknown Completed [facility] Influenza Virus Vaccine Quad IM, Preserv and ABX Free 6 MO-64 YRS (FLUCELVAX) Unknown Completed [facility] Influenza Virus Vaccine Unknown Completed [facility] Influenza Virus Vaccine Quad .5 mL IM 6+ MO (FLUZONE/FLULAVAL/F LUARIX) Unknown Completed [facility] TDAP Unknown Completed [facility] SARS-COV-2 COVID-19 OTIS/J&J VACCINE Unknown Completed [facility] Influenza Virus Vaccine Quad IM, Preserv and ABX Free 6 MO-64 YRS (FLUCELVAX) Unknown Completed [facility] Influenza Virus Vaccine Unknown Completed [facility] Influenza Virus Vaccine Quad .5 mL IM 6+ MO (FLUZONE/FLULAVAL/F LUARIX) Unknown Completed [facility] TDAP Unknown Completed [facility] SARS-COV-2 COVID-19 OTIS/J&J VACCINE Unknown Completed [facility] Influenza Virus Vaccine Quad IM, Preserv and ABX Free 6 MO-64 YRS (FLUCELVAX) Unknown Completed [facility] Influenza Virus Vaccine Unknown Completed [facility] Influenza, Injectable, Mdck, Quadrivalent With Preservative Unknown Completed [facility] - External Influenza, Injectable, Mdck, Preservative Free, Quadrivalent Unknown Completed [facility]les External Influenza Virus Vaccine, No Preserv, age 6 months and up Unknown Completed [facility] - External Covid-19 Vaccine (Otis) Unknown Completed [facility] External Tdap- (Boostrix, Adacel) Unknown Completed [facility] Influenza, Injectable, Mdck, Quadrivalent With Preservative Unknown Completed [facility] Gonz[facility] External Influenza, Injectable, Mdck, Preservative Free, Quadrivalent [...] Completed Anat Seybold - External Covid-19 Vaccine (Oits) Unknown Completed Anat Seybold - External Tdap- [...] Value Comments S ource Systolic blood pressure 2025-05-20 20:23:00 137 mm[Hg] [facility] Diastolic blood pressure 2025-05-20 20:23:00 89 mm[Hg] [facility] Heart rate 2025-05-20 20:23:00 85 /min [facility] Body temperature 2025-05-20 20:23:00 37 Silvina [facility] Respiratory rate 2025-05-20 20:23:00 17 /min [facility] Body height 2025-05-20 20:23:00 165.1 cm [facility] Body weight 2025-05-20 20:23:00 126.826 kg [facility] BMI 2025-05-20 20:23:00 46.53 kg/m2 [facility] Oxygen saturation in Arterial blood by Pulse oximetry 2025-05-20 20:23:00 100 /min [facility] Systolic blood pressure 2025-05-14 20:00:00 107 mm[Hg] [facility] Diastolic blood pressure 2025-05-14 20:00:00 79 mm[Hg] [facility] Heart rate 2025-05-14 20:00:00 86 /min [facility] Body temperature 2025-05-14 20:00:00 36.89 Silvina [facility] Respiratory rate 2025-05-14 20:00:00 16 /min [facility] Oxygen saturation in Arterial blood by Pulse oximetry 2025-05-14 20:00:00 98 /min [facility] Body height 2025-05-14 17:44:00 165.1 cm [facility] Body weight 2025-05-14 17:44:00 127.461 kg [facility] BMI 2025-05-14 17:44:00 46.76 kg/m2 [facility] Systolic blood pressure 2025-04-26 20:20:00 108 mm[Hg] Anat Seybo ld - External Diastolic blood pressure 2025-04-26 20:20:00 76 mm[Hg] Anat Seybo ld - External Heart rate 2025-04-26 20:20:00 88 /min Kelse y Seybold - External Body temperature 2025-04-26 20:20:00 36.94 Silvina Anat Seybold - External Respiratory rate 2025-04-26 20:20:00 18 /min Anat Seybold - External Body height 2025-04-26 20:20:00 165.1 cm Brea ey Seybold - External Body weight 2025-04-26 20:20:00 130.863 kg Brea ey Seybold - External BMI 2025-04-26 20:20:00 48.01 kg/m2 Brea ey Seybold - External Oxygen saturation in Arterial blood by Pulse oximetry 2025-04-26 20:20:00 99 /min Anat Seybo ld - External Systolic blood pressure 2025-04-08 01:35:00 114 mm[Hg] [facility] Diastolic blood pressure 2025-04-08 01:35:00 78 mm[Hg] [facility] Heart rate 2025-04-08 01:35:00 87 /min [facility] Body temperature 2025-04-08 01:35:00 36.56 Silvina [facility] Respiratory rate 2025-04-08 01:35:00 20 /min [facility] Body height 2025-04-08 01:35:00 165.1 cm [facility] Body weight 2025-04-08 01:35:00 127.733 kg [facility] BMI 2025-04-08 01:35:00 46.86 kg/m2 [facility] Oxygen saturation in Arterial blood by Pulse oximetry 2025-04-08 01:35:00 99 /min [facility] Systolic blood pressure 2025-03-20 15:46:00 112 mm[Hg] Anat Seybo ld - External Diastolic blood pressure 2025-03-20 15:46:00 76 mm[Hg] Anat ybo ld - External Heart rate 2025-03-20 15:46:00 68 /min Kannanse y Seybold - External Respiratory rate 2025-03-20 15:46:00 18 /min Anat Seybold - External Body height 2025-03-20 15:46:00 165.1 cm Brea ey Seybold - External Body weight 2025-03-20 15:46:00 131.09 kg Brea ey Seybold - External BMI 2025-03-20 15:46:00 48.09 kg/m2 Brea ey Seybold - External Systolic blood pressure 2025-02-14 18:33:00 112 mm[Hg] Anat Seybo ld - External Diastolic blood pressure 2025-02-14 18:33:00 72 mm[Hg] Anat Seybo ld - External Heart rate 2025-02-14 18:33:00 89 /min Kelse y Seybold - External Body temperature 2025-02-14 18:33:00 37.06 Silvina Anat Seybold - External Respiratory rate 2025-02-14 18:33:00 15 /min Anat Seybold - External Body height 2025-02-14 18:33:00 165.1 cm Brea ey Seybold - External Body weight 2025-02-14 18:33:00 129.729 kg Brea ey Seybold - External BMI 2025-02-14 18:33:00 47.59 kg/m2 Brea ey Seybold - External Oxygen saturation in Arterial blood by Pulse oximetry 2025-02-14 18:33:00 99 /min Anat Maciasybo ld - External Systolic blood pressure 2025-01-25 02:31:00 132 mm[Hg] [facility] Diastolic blood pressure 2025-01-25 02:31:00 79 mm[Hg] [facility] Heart rate 2025-01-25 02:31:00 79 /min [facility] Body temperature 2025-01-25 02:31:00 36.72 Silvina [facility] Respiratory rate 2025-01-25 02:31:00 16 /min [facility] Oxygen saturation in Arterial blood by Pulse oximetry 2025-01-25 02:31:00 100 /min [facility] Body height 2025-01-25 00:16:00 165.1 cm [facility] Body weight 2025-01-25 00:16:00 131.09 kg [facility] BMI 2025-01-25 00:16:00 48.09 kg/m2 [facility] Systolic blood pressure 2025-01-15 16:29:00 123 [...] Systolic blood pressure 2024-10-25 19:03:06 118 mm[Hg] [facility] Diastolic blood pressure 2024-10-25 19:03:06 75 mm[Hg] [facility] Heart rate 2024-10-25 19:03:06 82 /min [facility] Body temperature 2024-10-25 19:03:06 37.06 Silvina [facility] Respiratory rate 2024-10-25 19:03:06 19 /min [facility] Oxygen saturation in Arterial blood by Pulse oximetry 2024-10-25 19:03:06 99 /min [facility] Body height 2024-10-25 17:05:00 165.1 cm [facility] Body weight 2024-10-25 17:05:00 120.203 kg [facility] BMI 2024-10-25 17:05:00 44.10 kg/m2 [facility] Systolic blood pressure 2024-08-30 18:42:00 102 mm[Hg] Anat Salcedoo ld - External Diastolic blood pressure 2024-08-30 18:42:00 60 mm[Hg] Anat Salcedoo ld - External Heart rate 2024-08-30 18:42:00 81 /min Kel y Seybold - External Body temperature 2024-08-30 [...] blood pressure 2024-07-10 15:11:00 62 mm[Hg] Anat Hitchcock ld - External Heart rate 2024-07-10 15:11:00 86 /min [facility] - External Body temperature 2024-07-10 15:11:00 36.44 Silvina Anat [facility] - External Respiratory rate 2024-07-10 15:11:00 16 /min [facility] - External Body height 2024-07-10 15:11:00 165.1 cm rBea Mesa - External Body weight 2024-07-10 15:11:00 120.203 kg Brea de luna Seybold - External BMI 2024-07-10 15:11:00 44.10 kg/m2 Brea de luna Seybshanae - External Systolic blood pressure 2024-07-10 00:58:00 109 mm[Hg] [facility] Diastolic blood pressure 2024-07-10 00:58:00 68 mm[Hg] [facility] Heart rate 2024-07-10 00:58:00 98 /min [facility] Body temperature 2024-07-10 00:58:00 37.11 Silvina [facility] Respiratory rate 2024-07-10 00:58:00 15 /min [facility] Body height 2024-07-10 00:58:00 165.1 cm [facility] Body weight 2024-07-10 00:58:00 118.525 kg [facility] BMI 2024-07-10 00:58:00 43.48 kg/m2 [facility] Oxygen saturation in Arterial blood by Pulse oximetry 2024-07-10 00:58:00 98 /min [facility] Systolic blood pressure 2024-07-04 02:19:00 115 mm[Hg] [facility] Diastolic blood pressure 2024-07-04 02:19:00 72 mm[Hg] [facility] Heart rate 2024-07-04 02:19:00 73 /min [facility] Body temperature 2024-07-04 02:19:00 36.89 Silvina [facility] Respiratory rate 2024-07-04 02:19:00 19 /min [facility] Oxygen saturation in Arterial blood by Pulse oximetry 2024-07-04 02:19:00 97 /min [facility] Body height 2024-07-03 22:28:00 165.1 cm [facility] Body weight 2024-07-03 22:28:00 111.131 kg [facility] BMI 2024-07-03 22:28:00 40.77 kg/m2 [facility] Systolic blood pressure 2024-06-29 01:25:00 113 mm[Hg] [facility] Diastolic blood pressure 2024-06-29 01:25:00 77 mm[Hg] [facility] Heart rate 2024-06-29 01:25:00 86 /min [facility] Body temperature 2024-06-29 01:25:00 36.89 Silvina [facility] Respiratory rate 2024-06-29 01:25:00 18 /min [facility] Body weight 2024-06-29 01:25:00 120.203 kg [facility] BMI 2024-06-29 01:25:00 44.10 kg/m2 [facility] Oxygen saturation in Arterial blood by Pulse oximetry 2024-06-29 01:25:00 100 /min [facility] Systolic blood pressure 2024-06-27 14:40:00 102 mm[Hg] Anat Hitchcock ld - External Diastolic blood pressure 2024-06-27 14:40:00 60 mm[Hg] Anat Hitchcock ld - External Heart rate 2024-06-27 14:40:00 97 /min [facility] - External Body temperature 2024-06-27 14:40:00 36.44 Silvina Anat [facility] - External Respiratory rate 2024-06-27 14:40:00 15 /min Anat [facility] - External Body height 2024-06-27 14:40:00 165.1 cm Brea ey Seybold - External Body weight 2024-06-27 14:40:00 120.203 kg Brea ey Seybold - External BMI 2024-06-27 14:40:00 44.10 kg/m2 Brea ey Seybold - External Systolic blood pressure 2024-06-26 01:19:00 126 mm[Hg] [facility] Diastolic blood pressure 2024-06-26 01:19:00 62 mm[Hg] [facility] Heart rate 2024-06-26 01:19:00 98 /min [facility] 2024-06-26 01:19:00 37.5 Silvina [facility] Respiratory rate 2024-06-26 01:19:00 22 /min [facility] Body height 2024-06-26 01:19:00 165.1 cm [facility] Body weight 2024-06-26 01:19:00 119.75 kg [facility] BMI 2024-06-26 01:19:00 43.93 kg/m2 [facility] Oxygen saturation in Arterial blood by Pulse oximetry 2024-06-26 01:19:00 100 /min [facility] Systolic blood pressure 2024-06-06 19:54:00 104 [...] blood pressure 2024-05-22 20:07:00 60 mm[Hg] Anat Hitchcock ld - External Heart rate 2024-05-22 20:07:00 97 /min [facility] - External Body temperature 2024-05-22 20:07:00 36.67 Silvina [facility] - External Respiratory rate 2024-05-22 20:07:00 18 /min [facility] - External Body height 2024-05-22 20:07:00 165.1 cm Brea [facility]a - External Body weight 2024-05-22 20:07:00 120.203 kg Brea de luna Seybold - External BMI 2024-05-22 20:07:00 44.10 kg/m2 Brea de luna Seybold - External Systolic blood pressure 2024-05-13 07:13:00 118 mm[Hg] [facility] Diastolic blood pressure 2024-05-13 07:13:00 86 mm[Hg] [facility] Heart rate 2024-05-13 07:13:00 83 /min [facility] Body temperature 2024-05-13 07:13:00 36.72 Silvina [facility] Respiratory rate 2024-05-13 07:13:00 18 /min [facility] Oxygen saturation in Arterial blood by Pulse oximetry 2024-05-13 07:13:00 100 /min [facility] Body height 2024-05-13 05:03:00 165.1 cm [facility] Body weight 2024-05-13 05:03:00 114.76 kg [facility] BMI 2024-05-13 05:03:00 42.10 kg/m2 [facility] Systolic blood pressure 2023-12-01 06:06:00 128 mm[Hg] [facility] Diastolic blood pressure 2023-12-01 06:06:00 84 mm[Hg] [facility] Heart rate 2023-12-01 06:06:00 88 /min [facility] Body temperature 2023-12-01 06:06:00 36.89 Silvina [facility] Respiratory rate 2023-12-01 06:06:00 16 /min [facility] Oxygen saturation in Arterial blood by Pulse oximetry 2023-12-01 06:06:00 100 /min [facility] Body height 2023-12-01 03:03:00 165.1 cm [facility] Body weight 2023-12-01 03:03:00 114.76 kg [facility] BMI 2023-12-01 03:03:00 42.10 kg/m2 [facility] Systolic blood pressure 2023-10-14 05:45:00 128 mm[Hg] [facility] Diastolic blood pressure 2023-10-14 05:45:00 72 mm[Hg] [facility] Heart rate 2023-10-14 05:45:00 77 /min [facility] Body temperature 2023-10-14 05:45:00 36.89 Silvina [facility] Respiratory rate 2023-10-14 05:45:00 16 /min [facility] Oxygen saturation in Arterial blood by Pulse oximetry 2023-10-14 05:45:00 100 /min [facility] Body height 2023-10-14 03:39:00 165.1 cm [facility] Body weight 2023-10-14 03:39:00 114.76 kg [facility] BMI 2023-10-14 03:39:00 42.10 kg/m2 [facility] Systolic blood pressure 2023-09-28 01:41:00 129 mm[Hg] [facility] Diastolic blood pressure 2023-09-28 01:41:00 82 mm[Hg] [facility] Heart rate 2023-09-28 01:41:00 76 /min [facility] Body temperature 2023-09-28 01:41:00 37.39 Silvina [facility] Respiratory rate 2023-09-28 01:41:00 17 /min [facility] Body weight 2023-09-28 01:41:00 114.76 kg [facility] BMI 2023-09-28 01:41:00 49.41 kg/m2 [facility] Oxygen saturation in Arterial blood by Pulse oximetry 2023-09-28 01:41:00 99 /min [facility] Systolic blood pressure 2023-09-04 06:00:00 124 mm[Hg] [facility] Diastolic blood pressure 2023-09-04 06:00:00 71 mm[Hg] [facility] Heart rate 2023-09-04 06:00:00 96 /min [facility] Respiratory rate 2023-09-04 06:00:00 20 /min [facility] Oxygen saturation in Arterial blood by Pulse oximetry 2023-09-04 06:00:00 96 /min [facility] Body temperature 2023-09-04 03:04:00 37.22 Silvina [facility] Body height 2023-09-04 03:04:00 152.4 cm [facility] Body weight 2023-09-04 03:04:00 108.863 kg [facility] BMI 2023-09-04 03:04:00 46.87 kg/m2 [facility] Systolic blood pressure 2023-08-29 18:00:42 118 mm[Hg] [facility] Diastolic blood pressure 2023-08-29 18:00:42 76 mm[Hg] [facility] Heart rate 2023-08-29 18:00:42 101 /min [facility] Body temperature 2023-08-29 18:00:42 36.78 Silvina [facility] Oxygen saturation in Arterial blood by Pulse oximetry 2023-08-29 18:00:42 96 /min [facility] Respiratory rate 2023-08-29 16:20:00 18 /min [facility] Body height 2023-08-29 16:20:00 165.1 cm [facility] Body weight 2023-08-29 16:20:00 108.863 kg [facility] BMI 2023-08-29 16:20:00 39.94 kg/m2 [facility] Systolic blood pressure 2023-02-14 01:09:00 110 mm[Hg] [facility] Diastolic blood pressure 2023-02-14 01:09:00 76 mm[Hg] [facility] Heart rate 2023-02-14 01:09:00 107 /min [facility] Body temperature 2023-02-14 01:09:00 37.11 Silvina [facility] Respiratory rate 2023-02-14 01:09:00 14 /min [facility] Body height 2023-02-14 01:09:00 165.1 cm [facility] Body weight 2023-02-14 01:09:00 108.954 kg [facility] BMI 2023-02-14 01:09:00 39.97 kg/m2 [facility] Oxygen saturation in Arterial blood by Pulse oximetry 2023-02-14 01:09:00 98 /min [facility] Systolic blood pressure 2022-11-05 16:30:00 104 mm[Hg] [facility] Diastolic blood pressure 2022-11-05 16:30:00 74 mm[Hg] [facility] Heart rate 2022-11-05 16:30:00 69 /min [facility] Body temperature 2022-11-05 16:30:00 36.89 Silvina [facility] Respiratory rate 2022-11-05 16:30:00 18 /min [facility] Body height 2022-11-05 16:30:00 165.1 cm [facility] Body weight 2022-11-05 16:30:00 108.863 kg [facility] BMI 2022-11-05 16:30:00 39.94 kg/m2 [facility] Systolic blood pressure 2022-10-21 16:40:00 113 mm[Hg] [facility] Diastolic blood pressure 2022-10-21 16:40:00 77 mm[Hg] [facility] Heart rate 2022-10-21 16:40:00 94 /min [facility] Body temperature 2022-10-21 16:40:00 36.78 Silvina [facility] Respiratory rate 2022-10-21 16:40:00 18 /min [facility] Body height 2022-10-21 16:40:00 165.1 cm [facility] Body weight 2022-10-21 16:40:00 108.863 kg [facility] BMI 2022-10-21 16:40:00 39.94 kg/m2 [facility] Systolic blood pressure 2022-10-13 15:09:00 107 mm[Hg] [facility] Diastolic blood pressure 2022-10-13 15:09:00 76 mm[Hg] [facility] Heart rate 2022-10-13 15:09:00 56 /min [facility] Body temperature 2022-10-13 15:09:00 36.83 [facility] Respiratory rate 2022-10-13 15:09:00 18 /min [facility] Body weight 2022-10-13 15:09:00 109.317 kg [facility] BMI 2022-10-13 15:09:00 40.10 kg/m2 [facility] Systolic blood pressure 2022-09-28 13:13:00 114 mm[Hg] [facility] Diastolic blood pressure 2022-09-28 13:13:00 73 mm[Hg] [facility] Heart rate 2022-09-28 13:13:00 78 /min [facility] Body temperature 2022-09-28 13:13:00 36.22 [facility] Respiratory rate 2022-09-28 13:13:00 16 /min [facility] Oxygen saturation in Arterial blood by Pulse oximetry 2022-09-28 13:13:00 100 /min [facility] Systolic blood pressure 2022-09-24 15:16:00 110 mm[Hg] [facility] Diastolic blood pressure 2022-09-24 15:16:00 76 mm[Hg] [facility] Heart rate 2022-09-24 15:16:00 94 /min [facility] Body temperature 2022-09-24 15:16:00 36.72 [facility] Body height 2022-09-24 15:16:00 165.1 cm [facility] Body weight 2022-09-24 15:16:00 117.981 kg [facility] BMI 2022-09-24 15:16:00 43.28 kg/m2 [facility] Heart rate 2022-09-20 21:45:00 80 /min [facility] Oxygen saturation in Arterial blood by Pulse oximetry 2022-09-20 21:45:00 99 /min [facility] Systolic blood pressure 2022-09-20 21:04:00 108 mm[Hg] [facility] Diastolic blood pressure 2022-09-20 21:04:00 63 mm[Hg] [facility] Body temperature 2022-09-20 21:04:00 37 [facility] Respiratory rate 2022-09-20 21:04:00 18 /min [facility] Body height 2022-09-20 21:04:00 165.1 cm [facility] Body weight 2022-09-20 21:04:00 118.026 kg [facility] BMI 2022-09-20 21:04:00 43.30 kg/m2 [facility] Systolic blood pressure 2022-09-17 16:11:00 110 mm[Hg] [facility] Diastolic blood pressure 2022-09-17 16:11:00 73 mm[Hg] [facility] Heart rate 2022-09-17 16:11:00 90 /min [facility] Body temperature 2022-09-17 16:11:00 36.78 [facility] Respiratory rate 2022-09-17 16:11:00 18 /min [facility] Body height 2022-09-17 16:11:00 165.1 cm [facility] Body weight 2022-09-17 16:11:00 117.482 kg [facility] BMI 2022-09-17 16:11:00 43.10 kg/m2 [facility] Heart rate 2022-09-16 17:15:00 94 /min [facility] Oxygen saturation in Arterial blood by Pulse oximetry 2022-09-16 17:15:00 98 /min [facility] Systolic blood pressure 2022-09-16 16:30:00 112 mm[Hg] [facility] Diastolic blood pressure 2022-09-16 16:30:00 57 mm[Hg] [facility] Body temperature 2022-09-16 16:30:00 36.89 [facility] Body height 2022-09-16 16:30:00 165.1 cm [facility] Body weight 2022-09-16 16:30:00 117.935 kg [facility] BMI 2022-09-16 16:30:00 43.27 kg/m2 [facility] Respiratory rate 2022-09-16 15:41:00 16 /min [facility] Heart rate 2022-09-10 16:30:00 76 /min [facility] Oxygen saturation in Arterial blood by Pulse oximetry 2022-09-10 16:30:00 99 /min [facility] Systolic blood pressure 2022-09-10 14:35:00 114 mm[Hg] [facility] Diastolic blood pressure 2022-09-10 14:35:00 65 mm[Hg] [facility] Body temperature 2022-09-10 14:35:00 36.67 [facility] Respiratory rate 2022-09-10 14:35:00 18 /min [facility] Body weight 2022-09-10 14:12:00 116.075 kg [facility] BMI 2022-09-10 14:12:00 42.58 kg/m2 [facility] Systolic blood pressure 2022-09-09 16:06:00 117 mm[Hg] [facility] Diastolic blood pressure 2022-09-09 16:06:00 78 mm[Hg] [facility] Heart rate 2022-09-09 16:06:00 93 /min [facility] Body temperature 2022-09-09 16:06:00 37 [facility] Respiratory rate 2022-09-09 16:06:00 16 /min [facility] Body height 2022-09-09 16:06:00 165.1 cm [facility] Body weight 2022-09-09 16:06:00 115.803 kg [facility] BMI 2022-09-09 16:06:00 42.48 kg/m2 [facility] Oxygen saturation in Arterial blood by Pulse oximetry 2022-09-09 16:06:00 98 /min [facility] Systolic blood pressure 2022-09-08 03:00:00 101 mm[Hg] [facility] Diastolic blood pressure 2022-09-08 03:00:00 56 mm[Hg] [facility] Heart rate 2022-09-08 03:00:00 89 /min [facility] Oxygen saturation in Arterial blood by Pulse oximetry 2022-09-08 03:00:00 99 /min [facility] Body temperature 2022-09-08 01:23:00 37.06 [facility] Respiratory rate 2022-09-08 01:23:00 18 /min [facility] Body height 2022-09-08 01:23:00 165.1 cm [facility] Body weight 2022-09-08 01:23:00 116.937 kg [facility] BMI 2022-09-08 01:23:00 42.90 kg/m2 [facility] Heart rate 2022-09-05 03:57:00 79 /min [facility]terial blood by Pulse oximetry 2022-09-05 03:57:00 99 /min [facility] Systolic blood pressure 2022-09-05 03:30:00 121 mm[Hg] [facility] Diastolic blood pressure 2022-09-05 03:30:00 73 mm[Hg] [facility] Body temperature 2022-09-05 03:00:00 36.5 [facility] Respiratory rate 2022-09-05 03:00:00 16 /min [facility] Body height 2022-09-05 02:45:00 165.1 cm [facility] Body weight 2022-09-05 02:45:00 116.937 kg [facility] BMI 2022-09-05 02:45:00 42.90 kg/m2 [facility] Heart rate 2022-09-02 12:32:00 75 /[facility] Oxygen saturation in Arterial blood by Pulse oximetry 2022-09-02 12:32:00 99 /min [facility] Systolic blood pressure 2022-09-02 10:55:00 121 mm[Hg] [facility] Diastolic blood pressure 2022-09-02 10:55:00 73 mm[Hg] [facility] Body temperature 2022-09-02 10:55:00 36.61 [facility] Respiratory rate 2022-09-02 10:55:00 19 /min [facility] Body height 2022-09-02 10:55:00 165.1 cm [facility] Body weight 2022-09-02 10:55:00 115.304 kg [facility] BMI 2022-09-02 10:55:00 42.30 kg/m2 [facility] Systolic blood pressure 2022-09-01 21:55:00 113 mm[Hg] [facility] Diastolic blood pressure 2022-09-01 21:55:00 74 mm[Hg] [facility] Heart rate 2022-09-01 21:55:00 97 /min [facility] Body temperature 2022-09-01 21:55:00 36.67 [facility] Respiratory rate 2022-09-01 21:55:00 20 /min [facility] Body height 2022-09-01 21:55:00 165.1 cm [facility] Body weight 2022-09-01 21:55:00 115.696 kg [facility] BMI 2022-09-01 21:55:00 42.44 kg/m2 [facility] Systolic blood pressure 2022-08-27 16:48:00 117 mm[Hg] [facility] Diastolic blood pressure 2022-08-27 16:48:00 76 mm[Hg] [facility] Heart rate 2022-08-27 16:48:00 84 /min [facility] Body temperature 2022-08-27 16:48:00 36.89 [facility] Respiratory rate 2022-08-27 16:48:00 16 /min [facility] Body height 2022-08-27 16:48:00 165.1 cm [facility] Body weight 2022-08-27 16:48:00 115.123 kg [facility] BMI 2022-08-27 16:48:00 42.23 kg/m2 [facility] Oxygen saturation in Arterial blood by Pulse oximetry 2022-08-27 16:48:00 99 /min [facility] Heart rate 2022-08-23 02:00:00 90 /min [facility] Oxygen saturation in Arterial blood by Pulse oximetry 2022-08-23 02:00:00 100 /min [facility] Systolic blood pressure 2022-08-22 23:34:00 119 mm[Hg] [facility] Diastolic blood pressure 2022-08-22 23:34:00 65 mm[Hg] [facility] Body temperature 2022-08-22 23:34:00 36.33 [facility] Respiratory rate 2022-08-22 23:34:00 16 /min [facility] Body height 2022-08-22 23:34:00 165.1 cm [facility] Body weight 2022-08-22 23:34:00 115.667 kg [facility] BMI 2022-08-22 23:34:00 42.43 kg/m2 [facility] Systolic blood pressure 2022-08-14 01:14:00 105 mm[Hg] [facility] Diastolic blood pressure 2022-08-14 01:14:00 59 mm[Hg] [facility] Heart rate 2022-08-14 01:14:00 87 /min [facility] Body temperature 2022-08-14 01:14:00 36.44 [facility] Respiratory rate 2022-08-14 01:14:00 16 /min [facility] Oxygen saturation in Arterial blood by Pulse oximetry 2022-08-14 01:14:00 98 /min [facility] Body height 2022-08-14 00:23:00 165.1 cm [facility] Body weight 2022-08-14 00:23:00 113.853 kg 251lb [facility] BMI 2022-08-14 00:23:00 41.77 kg/m2 [facility] Systolic blood pressure 2022-08-13 14:37:00 104 mm[Hg] [facility] Diastolic blood pressure 2022-08-13 14:37:00 72 mm[Hg] [facility] Heart rate 2022-08-13 14:37:00 97 /min [facility] Body temperature 2022-08-13 14:37:00 36.89 [facility] Respiratory rate 2022-08-13 14:37:00 18 /min [facility] Body height 2022-08-13 14:37:00 165.1 cm [facility] Body weight 2022-08-13 14:37:00 113.807 kg [facility] BMI 2022-08-13 14:37:00 41.75 kg/m2 [facility] Systolic blood pressure 2022-08-09 16:05:00 107 mm[Hg] [facility] Diastolic blood pressure 2022-08-09 16:05:00 74 mm[Hg] [facility] Heart rate 2022-08-09 16:05:00 84 /min [facility] Body temperature 2022-08-09 16:05:00 36.78 [facility] Respiratory rate 2022-08-09 16:05:00 16 /min [facility] Body height 2022-08-09 16:05:00 165.1 cm [facility] Body weight 2022-08-09 16:05:00 114.306 kg [facility] BMI 2022-08-09 16:05:00 41.93 kg/m2 [facility] Oxygen saturation in Arterial blood by Pulse oximetry 2022-08-09 16:05:00 98 /min [facility] Heart rate 2022-08-08 21:30:00 89 /min [facility] Oxygen saturation in Arterial blood by Pulse oximetry 2022-08-08 21:30:00 99 /min [facility] Systolic blood pressure 2022-08-08 20:45:00 121 mm[Hg] [facility] Diastolic blood pressure 2022-08-08 20:45:00 65 mm[Hg] [facility] Body temperature 2022-08-08 20:45:00 36.61 [facility] Respiratory rate 2022-08-08 20:45:00 16 /min [facility] Body height 2022-08-08 20:22:00 165.1 cm [facility] Body weight 2022-08-08 20:22:00 113.853 kg [facility] BMI 2022-08-08 20:22:00 41.77 kg/m2 [facility] Systolic blood pressure 2022-08-02 13:35:00 111 mm[Hg] [facility] Diastolic blood pressure 2022-08-02 13:35:00 69 mm[Hg] [facility] Heart rate 2022-08-02 13:35:00 87 /min [facility] Body temperature 2022-08-02 13:35:00 37.11 [facility] Respiratory rate 2022-08-02 13:35:00 16 /min [facility] Body height 2022-08-02 13:35:00 165.1 cm [facility] Body weight 2022-08-02 13:35:00 112.719 kg [facility] BMI 2022-08-02 13:35:00 41.35 kg/m2 [facility] Oxygen saturation in Arterial blood by Pulse oximetry 2022-08-02 13:35:00 97 /min [facility] Systolic blood pressure 2022-07-31 12:17:00 112 mm[Hg] [facility] Diastolic blood pressure 2022-07-31 12:17:00 72 mm[Hg] [facility] Heart rate 2022-07-31 12:17:00 82 /min [facility] Body temperature 2022-07-31 12:17:00 36.83 [facility] Respiratory rate 2022-07-31 12:17:00 18 /min [facility] Body height 2022-07-31 12:17:00 165.1 cm [facility] Body weight 2022-07-31 12:17:00 111.585 kg [facility] BMI 2022-07-31 12:17:00 40.94 kg/m2 [facility] Oxygen saturation in Arterial blood by Pulse oximetry 2022-07-31 12:17:00 96 /min [facility] Systolic blood pressure 2022-07-30 18:23:00 112 mm[Hg] [facility] Diastolic blood pressure 2022-07-30 18:23:00 75 mm[Hg] [facility] Heart rate 2022-07-30 18:23:00 88 /min [facility] Body temperature 2022-07-30 18:23:00 36.89 [facility] Respiratory rate 2022-07-30 18:23:00 16 /min [facility] Body height 2022-07-30 18:23:00 165.1 cm [facility] Body weight 2022-07-30 18:23:00 111.766 kg [facility] BMI 2022-07-30 18:23:00 41.00 kg/m2 [facility] Oxygen saturation in Arterial blood by Pulse oximetry 2022-07-30 18:23:00 98 /min [facility] Systolic blood pressure 2022-07-30 03:08:00 114 mm[Hg] [facility] Diastolic blood pressure 2022-07-30 03:08:00 73 mm[Hg] [facility] Heart rate 2022-07-30 03:08:00 95 /min [facility] Body temperature 2022-07-30 03:08:00 36.78 [facility] Respiratory rate 2022-07-30 03:08:00 18 /min [facility] Oxygen saturation in Arterial blood by Pulse oximetry 2022-07-30 03:08:00 98 /min [facility] Body height 2022-07-30 02:42:00 165.1 cm [facility] Body weight 2022-07-30 02:42:00 112.537 kg [facility] BMI 2022-07-30 02:42:00 41.29 kg/m2 [facility] Heart rate 2022-07-25 01:00:00 85 /min [facility] Oxygen saturation in Arterial blood by Pulse oximetry 2022-07-25 01:00:00 99 /min [facility] Systolic blood pressure 2022-07-25 00:15:00 103 mm[Hg] [facility] Diastolic blood pressure 2022-07-25 00:15:00 57 mm[Hg] [facility] Body temperature 2022-07-25 00:15:00 36.78 [facility] Respiratory rate 2022-07-25 00:15:00 16 /min [facility] Body height 2022-07-24 23:27:00 162.6 cm [facility] Body weight 2022-07-24 23:27:00 110.678 kg [facility] BMI 2022-07-24 23:27:00 41.88 kg/m2 [facility] Systolic blood pressure 2022-07-23 18:19:00 104 mm[Hg] [facility] Diastolic blood pressure 2022-07-23 18:19:00 68 mm[Hg] [facility] Heart rate 2022-07-23 18:19:00 74 /min [facility] Body temperature 2022-07-23 18:19:00 36.72 [facility] Respiratory rate 2022-07-23 18:19:00 16 /min [facility] Body height 2022-07-23 18:19:00 [facility] 2022-07-23 18:19:00 113.127 kg [facility] BMI 2022-07-23 18:19:00 41.50 kg/m2 [facility] Oxygen saturation in Arterial blood by Pulse oximetry 2022-07-23 18:19:00 98 /min [facility] Heart rate 2022-07-21 15:30:00 87 /min [facility] Oxygen saturation in Arterial blood by Pulse oximetry 2022-07-21 15:30:00 100 /min [facility] Systolic blood pressure 2022-07-21 13:34:00 112 mm[Hg] [facility] Diastolic blood pressure 2022-07-21 13:34:00 61 mm[Hg] [facility] Body temperature 2022-07-21 13:34:00 37 [facility] Respiratory rate 2022-07-21 13:34:00 18 /min [facility] Body height 2022-07-21 13:34:00 165.1 cm [facility] Body weight 2022-07-21 13:34:00 112.311 kg [facility] BMI 2022-07-21 13:34:00 41.20 kg/m2 [facility] Systolic blood pressure 2022-07-16 16:35:00 103 mm[Hg] [facility] Diastolic blood pressure 2022-07-16 16:35:00 72 mm[Hg] [facility] Heart rate 2022-07-16 16:35:00 90 /min [facility] Respiratory rate 2022-07-16 16:35:00 18 /min [facility] Body height 2022-07-16 16:35:00 162.6 cm [facility] Body weight 2022-07-16 16:35:00 111.54 kg [facility] BMI 2022-07-16 16:35:00 42.21 kg/m2 [facility] Oxygen saturation in Arterial blood by Pulse oximetry 2022-07-16 16:35:00 98 /min [facility] Systolic blood pressure 2022-07-14 16:41:00 104 mm[Hg] [facility] Diastolic blood pressure 2022-07-14 16:41:00 70 mm[Hg] [facility] Heart rate 2022-07-14 16:41:00 68 /min [facility] Body temperature 2022-07-14 16:41:00 36.83 [facility] Respiratory rate 2022-07-14 16:41:00 18 /min [facility] Body height 2022-07-14 16:41:00 165.1 cm [facility] Body weight 2022-07-14 16:41:00 111.131 kg [facility] BMI 2022-07-14 16:41:00 40.77 kg/m2 [facility] Systolic blood pressure 2022-07-11 13:49:00 108 mm[Hg] [facility] Diastolic blood pressure 2022-07-11 13:49:00 52 mm[Hg] [facility] Body temperature 2022-07-11 13:49:00 36.72 [facility] Respiratory rate 2022-07-11 13:49:00 18 /min [facility] Oxygen saturation in Arterial blood by Pulse oximetry 2022-07-11 13:49:00 100 /min [facility] Heart rate 2022-07-11 11:15:00 89 /min [facility] Body height 2022-07-11 01:10:00 165.1 cm [facility] Body weight 2022-07-11 01:10:00 111.585 kg [facility] BMI 2022-07-11 01:10:00 40.94 kg/m2 [facility] Systolic blood pressure 2022-06-30 15:31:00 109 mm[Hg] [facility] Diastolic blood pressure 2022-06-30 15:31:00 73 mm[Hg] [facility] Heart rate 2022-06-30 15:31:00 77 /min [facility] Respiratory rate 2022-06-30 15:31:00 18 /min [facility] Body height 2022-06-30 15:31:00 165.1 cm [facility] Body weight 2022-06-30 15:31:00 110.406 kg [facility] BMI 2022-06-30 15:31:00 40.50 kg/m2 [facility] Oxygen saturation in Arterial blood by Pulse oximetry 2022-06-30 15:31:00 97 /min [facility] Systolic blood pressure 2022-06-25 16:14:00 110 mm[Hg] [facility] Diastolic blood pressure 2022-06-25 16:14:00 72 mm[Hg] [facility] Heart rate 2022-06-25 16:14:00 117 /min [facility] Body temperature 2022-06-25 16:14:00 36.83 [facility] Respiratory rate 2022-06-25 16:14:00 18 /min [facility] Body height 2022-06-25 16:14:00 165.1 cm [facility] Body weight 2022-06-25 16:14:00 111.086 kg [facility] BMI 2022-06-25 16:14:00 40.75 kg/m2 [facility] height 2022-01-12 14:00:00 64 [in_i] Commo n [facility] weight 2022-01-12 14:00:00 244.6 [lb_av] Co mmon [facility] temperature 2022-01-12 14:00:00 97.9 [degF] Com mon [facility] bmi 2022-01-12 14:00:00 41.98 kg/m2 [facility] oximetry 2022-01-12 14:00:00 99 % Commo n [facility] respiratory rate 2022-01-12 14:00:00 17 /min [facility] blood pressure systolic 2022-01-12 14:00:00 124 mm[Hg] Common [facility] blood pressure diastolic 2022-01-12 14:00:00 75 mm[Hg] Common [facility] height 2021-07-10 09:40:00 64 [in_i] Commo n [facility] weight 2021-07-10 09:40:00 240 [lb_av] Comm on [facility] temperature 2021-07-10 09:40:00 98 [degF] Comm on [facility] bmi 2021-07-10 09:40:00 41.19 kg/m2 [facility] height 2021-04-09 11:10:00 64 [in_i] Commo n [facility] weight 2021-04-09 11:10:00 240 [lb_av] Comm on [facility] temperature 2021-04-09 11:10:00 97.5 [degF] Com mon [facility] bmi 2021-04-09 11:10:00 41.19 kg/m2 [facility] height 2021-03-05 13:00:00 64 [in_i] Commo n [facility] weight 2021-03-05 13:00:00 240 [lb_av] Comm on [facility] temperature 2021-03-05 13:00:00 98 [degF] Comm on [facility] bmi 2021-03-05 13:00:00 41.19 kg/m2 [facility] height 2021-02-04 16:00:00 64 [in_i] Commo n [facility] weight 2021-02-04 16:00:00 245.0 [lb_av] Co [facility]mon [facility] temperature 2021-02-04 16:00:00 97.1 [degF] Com mon [facility] bmi 2021-02-04 16:00:00 42.05 kg/m2 [facility] oximetry 2021-02-04 16:00:00 98 % Commo n [facility] respiratory rate 2021-02-04 16:00:00 17 /min [facility] blood pressure systolic 2021-02-04 16:00:00 116 mm[Hg] [facility] blood pressure diastolic 2021-02-04 16:00:00 68 mm[Hg] [facility] Procedures Procedure Date / Time Performed Performing Clinician Source POCUS OB US ABD LIMITED 2025-05-14 19:28:08 Esther Garza [facility] TOTAL BETA HCG ASSAY 2025-05-14 18:12:00 Abimael Garza [facility] URINALYSIS 2025-05-14 18:09:00 [facility] 2025-05-14 18:09:00 Kelly Garza ra [facility] POCUS OB ABD LIMITED 2025-05-14 17:53:20 Esther Garza [facility] POCT MOLECULAR FLU 2025-04-08 01:36:00 Aurora Ashraf [facility] POCT SARS-COV-2 ANTIGEN (BINAX NOW) 2025-04-08 01:35:00 Aurora Ashraf [facility] POCT MOLECULAR STREP 2025-04-08 01:33:00 Aurora Ashraf [facility] POCT TEST 2025-01-25 01:40:00 Rambo Mondragon [facility] CBC WITH DIFF 2025-01-25 00:31:00 Rambo Mondragon [facility] XR ANKLE 3+ VW LEFT 2024-10-25 17:37:22 Alejandro Pfeiffer [facility] XR FOOT 3+ VW LEFT 2024-10-25 17:37:22 Alejandro Pfeiffer U [facility] POCT MOLECULAR STREP 2024-07-10 00:53:00 Leonor Mueller [facility] TROPONIN I 2024-07-04 00:51:00 [facility] COMP. METABOLIC PANEL ([id number]) 2024-07-04 00:51:00 Jarrett Navarro [facility] CBC WITH DIFF 2024-07-04 00:51:00 Jarrett Navarro [facility] D-DIMER 2024-07-04 00:51:00 Jar[facility] N-TERMINAL PRO-BNP 2024-07-04 00:51:00 Jarrett Navarro [facility] POCT MOLECULAR STREP 2024-06-29 01:25:00 Unknown, Aurelio piedad [facility] POCT TEST 2024-05-13 06:36:00 Brooklynn Nagy [facility] XR KNEE <3 VW RIGHT 2024-05-13 06:12:16 Brooklynn Nagy [facility] COMP. METABOLIC PANEL ([id number]) 2023-12-01 04:34:00 Gildardo Dunne [facility] CBC WITH DIFF 2023-12-01 04:34:00 Gildardo Dunne [facility] URINALYSIS 2023-12-01 04:34[facility]23-12-01 04:33:00 Gildardo Dunne [facility] XR KNEE 3 VW RIGHT 2023-12-01 04:24:34 Gildardo Dunne [facility] ASSIGNMENT OF BENEFITS 2023-12-01 03:21:42 Docto r Unassigned, [place] [facility] NOTICE OF PRIVACY PRACTICES 2023-12-01 02:41:06 Doctor Unassigned, [place] [facility] CONSENT/REFUSAL FOR DIAGNOSIS AND TREATMENT 2023-12-01 02:40:06 Doctor Unassigned, [place] [facility] ASSIGNMENT OF BENEFITS 2023-10-14 04:37:08 Docto r Unassigned, [place] [facility] XR HIPS 2 VW RIGHT 2023-10-14 04:26:25 Elen Benedict [facility] XR PELVIS <3 VW 2023-10-14 04:26:25 [facility] 2023-10-14 04:08:00 Elen Benedict [facility] CONSENT/REFUSAL FOR DIAGNOSIS AND TREATMENT 2023-10-14 03:26:58 Doctor Unassigned, [place] [facility] POCT MOLECULAR FLU 2023-09-28 01:49:00 Unknown, Attend ing [facility] POCT MOLECULAR STREP 2023-09-28 01:43:00 Unknown, Atte piedad [facility] CONSENT/REFUSAL FOR DIAGNOSIS AND TREATMENT 2023-09-28 01:24:42 Doctor Unassigned, [place] [facility] XR CHEST 1 VW 2023-09-04 03:28:00 Elen Benedict [facility] CONSENT/REFUSAL FOR DIAGNOSIS AND TREATMENT 2023-09-04 02:58:37 Doctor Unassigned, [place] [facility] POCT TEST 2023-08-29 16:59:00 Gustavo Nicole [facility] URINALYSIS 2023-08-29 16:55:00 Gustavo Nicole [facility] RAPID STREP SCREEN FOR GROUP A 2023-08-29 16:45:00 Gustavo [facility] RAPID INFLUENZA A/B 2023-08-29 16:45:00 Gustavo [facility] COVID-19 (ID NOW RAPID TESTING) 2023-08-29 16:45:00 Gustavo [facility] CONSENT/REFUSAL FOR DIAGNOSIS AND TREATMENT 2023-08-29 16:17:13 Doctor Unassigned, [place] [facility] POCT MOLECULAR STREP 2023-02-14 01:10:00 Unknown, Attblair herbert [facility] CONSENT FOR CONTRACEPTION 2022-11-05 06:01:00 Doctor Unassigned, [place] [facility] POCT TEST 2022-11-05 00:00:00 Josette Cheung [facility] CBC WITH DIFF 2022-09-28 10:16:00 Josette Cheung [facility] CENTRAL NEURAXIAL BLOCK 2022-09-27 17:43:59 Lila Peterson [facility] POCT URINALYSIS W/O SPECIFIC GRAVITY 2022-09-24 00:00:00 Kortney Trejo [facility] ADC ONLY - FERN TEST 2022-09-20 21:22:00 Josette Cheung [facility] CONSENT/REFUSAL FOR DIAGNOSIS AND TREATMENT 2022-09-20 20:41:32 Doctor Unassigned, [place] [facility] POCT URINALYSIS W/O SPECIFIC GRAVITY 2022-09-17 00:00:00 JonatanJosette [facility] ASSIGNMENT OF BENEFITS 2022-09-16 15:34:10 Docto r Unassigned, [place] [facility] CONSENT/REFUSAL FOR DIAGNOSIS AND TREATMENT 2022-09-16 15:33:45 Doctor Unassigned, [place] [facility] CONSENT/REFUSAL FOR DIAGNOSIS AND TREATMENT 2022-09-10 13:59:02 Doctor Unassigned, [place] [facility] POCT URINALYSIS W/O SPECIFIC GRAVITY 2022-09-01 21:55:00 Kortney Trejo [facility] POCT URINALYSIS W/O SPECIFIC GRAVITY 2022-08-27 00:00:00 CheungJosette [facility] ADC ONLY - FERN TEST 2022-08-23 00:32:00 Kimberlyn Sr [facility] CONSENT/REFUSAL FOR DIAGNOSIS AND TREATMENT 2022-08-22 23:10:08 Doctor Unassigned, [place] [facility] ASSIGNMENT OF BENEFITS 2022-08-22 23:09:40 Docto r Unassigned, [place] [facility] ASSIGNMENT OF BENEFITS 2022-08-13 23:59:39 Docto r Unassigned, [place] [facility] CONSENT/REFUSAL FOR DIAGNOSIS AND TREATMENT 2022-08-13 23:55:23 Doctor Unassigned, [place] [facility] POCT URINALYSIS W/O SPECIFIC GRAVITY 2022-08-13 00:00:00 JonatanJosette [facility] CONSENT/REFUSAL FOR DIAGNOSIS AND TREATMENT 2022-08-08 20:14:56 Doctor Unassigned, [place] [facility] LIPASE 2022-07-31 13:17:00 [facility] COMP. METABOLIC PANEL (33011) 2022-07-31 13:17:00 Jarvis Mcqueen [facility] CBC WITH DIFF 2022-07-31 13:17:00 Jarvis [facility] URINALYSIS 2022-07-31 13:17:00 Jarvis [facility] CONSENT/REFUSAL FOR DIAGNOSIS AND TREATMENT 2022-07-31 12:19:27 Doctor Unassigned, [facility] ONLY - FERN TEST 2022-07-30 03:23:00 Randallamriya Kimberlyn Tesha [facility] CONSENT/REFUSAL FOR DIAGNOSIS AND TREATMENT 2022-07-30 02:31:49 Doctor Unassigned, [place] [facility] POCT URINALYSIS W/O SPECIFIC GRAVITY 2022-07-30 00:00:00 Kortney Trejo [facility] AUTHORIZATION FOR RELEASE OF PHI 2022-07-29 05:01:00 Doctor Unassigned, [place] [facility] CONSENT/REFUSAL FOR DIAGNOSIS AND TREATMENT 2022-07-24 23:17:55 Doctor Unassigned, [place] [facility] ASSIGNMENT OF BENEFITS 2022-07-24 23:17:39 Docto r Unassigned, [place] [facility] TDAP VACCINE, >11 YRS, IM 2022-07-23 18:09:53 Kortney Trejo [facility] FLU VACC (), 6 MO-64 YRS, .5ML, IM, QUAD (FLUCELVAX) 2022-07-23 18:09:53 Kortney Trejo [facility] URINALYSIS 2022-07-21 14:02:[address] [facility] ADC CLC OR LCC ONLY - WET PREP 2022-07-21 14:02:00 Josette Cheung [facility] CONSENT/REFUSAL FOR DIAGNOSIS AND TREATMENT 2022-07-21 13:13:42 Doctor Unassigned, [place] [facility] ASSIGNMENT OF BENEFITS 2022-07-21 13:13:23 Docto r Unassigned, [place] [facility] POCT URINALYSIS W/O SPECIFIC GRAVITY 2022-07-16 16:39:00 Josette Cheung [facility] SCANNED LAB RESULTS 2022-07-16 05:01:00 Doctor Yessy lockettsisyed, [place] [facility] ADC CLC OR LCC ONLY - WET PREP 2022-07-11 01:46:00 Sam Bradley [facility] ADC ONLY - FERN TEST 2022-07-11 01:44:00 Sam Bradley [facility] ASSIGNMENT OF BENEFITS 2022-07-11 00:47:49 Docto r Unassigned, [place] [facility] POCT URINALYSIS W/O SPECIFIC GRAVITY 2022-06-30 15:32:00 Kortney Trejo [facility] ASSIGNMENT OF BENEFITS 2022-06-28 15:33:01 Docto r Unassigned, [place] [facility] POCT URINALYSIS W/O SPECIFIC GRAVITY 2022-06-25 00:00:00 Kortney Trejo [facility] MR Knee wo contrast [id number] 2018-08-25 00:00:00 [facility] US Extremity lower venous doppler bilat [id number] 2018-08-25 00:00:00 [facility] Encounters Start Date/Time End Date/Time Encounter Type Admission Type Attending Clinicians Care Facility Care Department Encounter ID Source 2022-12-28 07:26:01 Outpatient Langford, [facility] STLC STLC [id number] [facility] 2022-07-11 11:05:16 Outpatient KIMBERLYN LAMBERT [facility] [id number] [facility] 2021-11-04 13:55:18 Outpatient Langford, Fernandez STLC STLMLC [id number] [facility] 2021-11-04 13:10:23 Outpatient Langford, Efrnandez STLMLC STLMLC [id number] [facility] 2021-11-04 12:57:22 Outpatient Langford, Fernandez STLMLC STLMLC [id number] [facility] 2021-11-04 12:25:15 Outpatient Langford, Fernandez STLMLC STLMLC [id number] [facility] 2021-11-04 12:13:17 Outpatient Langford, Fernandez STLC STLMLC [id number] [facility] 2021-11-04 12:00:49 Outpatient LangfordFernandez perez [facility] [id number] [facility] 2021-11-04 11:54:10 Outpatient LangfordFernandez perez [facility] [id number] [facility] 2021-11-04 11:51:45 Outpatient LangfordFernandez perez [facility] [id number] [facility] 2021-08-11 08:26:00 Emergency [facility] [id number] [facility] 2021-08-10 22:05:53 Emergency [facility] [id number] [facility] 2021-08-06 18:42:34 Outpatient P [facility] [id number] [facility] 2021-08-06 18:05:33 Outpatient P [facility] [id number] [facility] 2021-08-06 18:04:40 Outpatient P [facility] [id number] [facility] 2025-06-21 09:15:00 2025-06-21 09:15:00 Outpatient SANTY YARBROUGH [id number] [facility] 2025-06-06 11:15:00 2025-06-06 11:15:00 Outpatient SANTY YARBROUGH [id number] [facility] 2025-05-30 00:00:00 2025-05-30 00:00:00 Outpatient MD ANAT RECINOS [id number] [facility] 2025-05-29 00:00:00 2025-05-29 00:00:00 Outpatient SANTY YARBROUGH [id number] [facility] 2025-05-22 10:00:00 2025-05-22 10:00:00 Outpatient SANTY YARBROUGH [id number] [facility] 2025-05-20 15:25:00 2025-05-20 15:58:00 Emergency ESTHER GUILLERMO SANDRA [facility] [id number] [facility] 2025-05-14 12:46:00 2025-05-14 15:13:00 Emergency X Esther Garza [facility] .[id number] [id number] [id number] [facility] 2025-05-14 00:00:00 2025-05-14 00:00:00 Outpatient SANTY YARBROUGH [id number] [facility] 2025-05-10 10:45:00 2025-05-10 10:45:00 Outpatient ANAT MERRITT [id number] [facility] 2025-05-08 00:00:00 2025-05-08 00:00:00 Outpatient SANTY YARBROUGH [id number] [facility] 2025-05-02 09:00:00 2025-05-02 09:00:00 Outpatient SANTOSH AREVLAO [id number] [facility] 2025-05-01 00:00:00 2025-05-01 00:00:00 Outpatient SANTY YARBROUGH [id number] [facility] 2025-04-29 00:00:00 2025-04-29 15:37:18 Aurora Vasquez [facility] [id number] [id number] [id number] [facility] 2025-04-27 00:00:00 2025-04-27 00:00:00 Outpatient LOREN HERNANDEZ [id number] [facility] 2025-04-26 15:30:00 2025-04-26 15:30:00 Outpatient SANTOSH AREVALO [id number] [facility] 2025-04-26 10:30:00 2025-04-26 10:30:00 Outpatient MADHAVI COBB [id number] [facility] 2025-04-10 11:15:00 2025-04-10 11:15:00 Outpatient SANTY YARBROUGH [id number] [facility] 2025-04-07 20:20:00 2025-04-07 20:41:44 Urgent Care AYAD HENNINGN [facility] [id number] [id number] [id number] [facility] 2025-04-07 17:15:00 2025-04-07 17:15:00 Outpatient ANAT MERRITT [id number] [facility] 2025-04-05 20:45:00 2025-04-05 20:45:00 Outpatient ANAT MERRITT [id number] [facility] 2025-04-05 00:00:00 2025-04-05 00:00:00 Outpatient MD ANAT RECINOS [id number] [facility] 2025-04-02 11:00:00 2025-04-02 11:00:00 Outpatient LOREN HERNANDEZ [id number] [facility] 2025-03-28 13:15:00 2025-03-28 13:15:00 Outpatient ANAT MERRITT [id number] [facility] 2025-03-20 15:15:00 2025-03-20 15:15:00 Outpatient SANTY YARBROUGH [id number] [facility] 2025-03-20 11:25:00 2025-03-20 11:25:00 Outpatient LAB47 ANAT MERRITT [id number] [facility] 2025-03-20 10:45:00 2025-03-20 10:45:00 Outpatient SANTY YARBROUGH [id number] [facility] 2025-03-13 09:30:00 2025-03-13 09:30:00 Outpatient LOREN HERNANDEZ [id number] [facility] 2025-03-06 15:30:00 2025-03-06 15:30:00 Outpatient LOREN HERNANDEZ [facility]AT [id number] [facility] 2025-03-06 09:30:00 2025-03-06 09:30:00 Outpatient LOREN HERNANDEZ ANAT [id number] [facility] 2025-03-02 12:30:00 2025-03-02 12:30:00 Outpatient NATHEN NIETO ANAT MERRITT [id number] [facility] 2025-03-02 11:30:00 2025-03-02 11:30:00 Outpatient ANAT ANAT [id number] [facility] 2025-02-25 13:00:00 2025-02-25 13:00:00 Outpatient DAVID, LOREN ANAT MERRITT [id number] [facility] 2025-02-21 12:30:00 2025-02-21 12:30:00 Outpatient ANAT MERRITT [id number] [facility] 2025-02-21 00:00:00 2025-02-21 00:00:00 Outpatient LEPOIDEVIN, SANTYLIDIA MERRITT [id number] [facility] 2025-02-19 11:15:00 2025-02-19 11:15:00 Outpatient LEPOIDEVIN, SANTY MERRITT [id number] [facility] 2025-02-15 00:00:00 2025-02-15 00:00:00 Outpatient HUNDL, LOREN MERRITT [id number] [facility] 2025-02-14 13:30:00 2025-02-14 13:30:00 Outpatient HUNDTesha, LOREN MERRITT [id number] [facility] 2025-02-13 14:45:00 2025-02-13 14:45:00 Outpatient LEPOIDEVIN, SANTY MERRITT [id number] [facility] 2025-01-28 10:00:00 2025-01-28 10:00:00 Outpatient LEPOIDEVIN, SANTY MERRITT [id number] [facility] 2025-01-24 19:19:00 2025-01-24 21:33:00 Emergency X RAMBO MONDRAGON ERICCA [facility] [id number] [facility] 2025-01-24 19:19:00 2025-01-24 21:33:00 Emergency Rambo Mondragon D [facility] [id number] [id number] [facility] 2025-01-24 14:30:00 2025-01-24 14:30:00 Outpatient LEPOIDEVIN, SANTY MERRITT [id number] [facility] 2025-01-24 00:00:00 2025-01-24 00:00:00 Outpatient LEPOIDEVIN, SANTY MERRITT [id number] [facility] 2025-01-17 00:00:00 2025-01-17 00:00:00 Outpatient LEPOIDEVIN, SANTY MERRITT [id number] [facility] 2025-01-16 00:00:00 2025-01-16 00:00:00 Outpatient LEPOIDEVIN, SANTY MERRITT [id number] [facility] 2025-01-15 13:45:00 2025-01-15 13:45:00 Outpatient KRB047Matthias MERRITT [id number] [facility] 2025-01-15 11:45:00 2025-01-15 11:45:00 Outpatient LEPOIDEVIN, SANTY MERRITT [id number] [facility] 2025-01-14 00:00:00 2025-01-14 00:00:00 Outpatient LEPOIDEVIN, SANTY MERRITT [id number] [facility] 2025-01-07 00:00:00 2025-01-07 00:00:00 Outpatient LEPOIDEVIN, SANTY MERRITT [id number] [facility] 2025-01-02 00:00:00 2025-01-02 00:00:00 Outpatient HUNDLLOREN [id number] [facility] 2024-12-26 13:10:00 2024-12-26 13:10:00 Outpatient RUBIN DEBBIE MERRITT [id number] [facility] 2024-12-26 09:00:00 2024-12-26 09:00:00 Outpatient LOREN HERNANDEZ [id number] [facility] 2024-12-25 00:00:00 2024-12-25 00:00:00 Outpatient LEPOIDEVIN, [facility]ANTY [facility]ERRITT [id number] [facility] 2024-12-21 11:00:00 2024-12-21 11:00:00 Outpatient RUBINDEBBIE MOFFETT [id number] [facility] 2024-12-20 00:00:00 2024-12-20 00:00:00 Outpatient DEBBIE RUBIN [id number] [facility] 2024-12-19 10:40:00 2024-12-19 10:40:00 Outpatient DEBBIE RUBIN [id number] [facility] 2024-12-17 16:00:00 2024-12-17 16:00:00 Outpatient LEPOIDEVIN, SANTY MERRITT [id number] [facility] 2024-12-13 00:00:00 2024-12-13 00:00:00 Outpatient LEPOIDEVIN, SANTY MERRITT [id number] [facility] 2024-12-12 14:30:00 2024-12-12 14:30:00 Outpatient LEPOIDEVIN, SANTY MERRITT [id number] [facility] 2024-12-07 11:00:00 2024-12-07 11:00:00 Outpatient LEPOIDEVIN, SANTY MERRITT [id number] [facility] 2024-12-04 14:00:00 2024-12-04 14:00:00 Outpatient R ADKIMBERLYN ROSA VIVIAN [facility] [id number] [facility] 2024-12-03 13:00:00 2024-12-03 13:00:00 Outpatient LOREN HERNANDEZ [id number] [facility] 2024-11-28 10:10:00 2024-11-28 10:10:00 Outpatient DEBBIE RUBIN ANAT MERRITT [id number] [facility] 2024-11-27 10:30:00 2024-11-27 10:30:00 Outpatient R ADUM, KIMBERLYN ADUM, KIMBERLYN [facility] [id number] [facility] 2024-11-26 16:00:00 2024-11-26 16:00:00 Outpatient LOREN HERNANDEZ ANAT MERRITT [id number] [facility] 2024-11-26 00:00:00 2024-11-26 00:00:00 Outpatient DEBBIE RUBIN ANAT MERRITT [id number] [facility] 2024-11-22 15:30:00 2024-11-22 15:30:00 Outpatient DAVID LOREN MERRITT [id number] [facility] 2024-11-07 11:00:00 2024-11-07 11:00:00 Outpatient LOREN HERNANDEZ ANAT MERRITT [id number] [facility] 2024-11-02 00:00:00 2024-11-02 00:00:00 Outpatient DAVID LOREN ANAT MERRITT [id number] [facility] 2024-11-01 10:30:00 2024-11-01 10:30:00 Outpatient MADHAVI COBB ANAT MERRITT [id number] [facility] 2024-10-30 11:00:00 2024-10-30 11:00:00 Outpatient DAVID LOREN ANAT MERRITT [id number] [facility] 2024-10-29 00:00:00 2024-10-29 00:00:00 Outpatient DAVID LOREN MERRITT [id number] [facility] 2024-10-25 11:06:00 2024-10-25 13:04:[address] [facility] [id number] [facility] 2024-10-25 11:06:00 2024-10-25 13:04:00 Emergency Alejandro Pfeiffer [facility] [id number] [id number] [facility] 2024-10-25 11:00:00 2024-10-25 11:00:00 Outpatient VINI GEE ANAT MERRITT [id number] [facility] 2024-10-19 11:30:00 2024-10-19 11:30:00 Outpatient LILY LEMOS [id number] [facility] 2024-10-18 00:00:00 2024-10-18 00:00:00 Outpatient LOREN HERNANDEZ [id number] [facility] 2024-10-15 00:00:00 2024-10-15 00:00:00 Outpatient LOREN HERNANDEZ [id number] [facility] 2024-09-28 00:00:00 2024-09-28 00:00:00 Outpatient MD ANAT RECINOS [id number] [facility] 2024-09-07 00:00:00 2024-09-07 00:00:00 Outpatient LOREN HERNANDEZ [id number] [facility] 2024-08-30 13:00:00 2024-08-30 13:00:00 Outpatient LOREN HERNANDEZ [id number] [facility] 2024-08-30 00:00:00 2024-08-30 00:00:00 Outpatient TIFFANY DOUGLAS [id number] [facility] 2024-08-30 00:00:00 2024-08-30 00:00:00 Outpatient MD ANAT RECINOS [id number] [facility] 2024-08-15 00:00:00 2024-08-15 00:00:00 Outpatient MD ANAT RECINOS [id number] Anat [facility] 2024-08-15 00:00:00 2024-08-15 00:00:00 Outpatient LOREN HERNANDEZ [id number] [facility] 2024-08-09 10:30:00 2024-08-09 10:30:00 Outpatient LOREN HERNANDEZ ANAT MERRITT [id number] [facility] 2024-07-18 12:30:00 2024-07-18 12:30:00 Outpatient ANAT MERRITT [id number] [facility] 2024-07-10 10:30:00 2024-07-10 10:30:00 Outpatient LOREN HERNANDEZ ANAT MERRITT [id number] [facility] 2024-07-09 19:20:00 2024-07-09 20:06:56 Outpatient R LEONOR MUELLER [facility] [id number] [facility] 2024-07-09 19:20:00 2024-07-09 20:06:56 Urgent Care ErvinLeonor Unknown, Attending [facility] [id number] 350.1.13.10 [id number] [facility] 2024-07-03 17:29:00 2024-07-03 21:41:00 Emergency X JARRETT NAVARRO SHINTA [facility] [id number] [facility] 2024-07-03 17:29:00 2024-07-03 21:41:00 Emergency Jarrett Navarro [facility] 1..840.114 350.1.13.10 4.2.7.2.[id number] [facility] 2024-06-28 20:00:00 2024-06-28 20:20:00 Urgent Care Delvis Kaye Unknown, Attending [facility] [id number] 350.1.13.10 4.2.7.2.[id number] [facility] 2024-06-28 20:00:00 2024-06-28 20:00:00 Outpatient R DELVIS KAYE [facility] [id number] [facility] 2024-06-28 08:20:00 2024-06-28 08:20:00 Outpatient LAB90 ANAT MERRITT [id number] [facility] 2024-06-27 10:00:00 2024-06-27 10:00:00 Outpatient KENDRATeshaMARYY ANAT MERRITT [id number] [facility] 2024-06-25 20:24:00 2024-06-25 21:05:00 Emergency X SETHER GARZA [facility] E[facility] [id number] [facility] 2024-06-25 20:24:00 2024-06-25 21:05:00 Emergency Esther Garza [facility] [id number] 350.1.13.10 [id number] [facility] 2024-06-25 19:00:00 2024-06-25 19:00:00 Outpatient KRYSTA BARRETO [id number] [facility] 2024-06-25 11:00:00 2024-06-25 11:00:00 Outpatient KAIDEN NG [id number] [facility] 2024-06-25 00:00:00 2024-06-25 00:00:00 Outpatient MD ANAT RECINOS [id number] [facility] 2024-06-16 00:00:00 2024-06-16 00:00:00 Outpatient TIFFANY DOUGLAS [id number] [facility] 2024-06-12 07:45:00 2024-06-12 07:45:00 Outpatient BERONICA MOORE [id number] [facility] 2024-06-11 19:45:00 2024-06-11 19:45:00 Outpatient PASHA PEDROZA [id number] [facility] 2024-06-07 15:30:00 2024-06-07 15:30:00 Outpatient CHANTELL BOO [id number] [facility] 2024-06-06 14:20:00 2024-06-06 14:20:00 Outpatient ANAT MERRITT [id number] [facility] 2024-06-06 14:00:00 2024-06-06 14:00:00 Outpatient CHANTELL BOO ANAT MERRITT [id number] [facility] 2024-06-05 00:00:00 2024-06-05 00:00:00 Outpatient MD ANAT RECINOS [id number] [facility] 2024-06-01 00:00:00 2024-06-01 00:00:00 Outpatient PABLITO BOOA ANAT MERRITT [id number] [facility] 2024-05-30 19:00:00 2024-05-30 19:00:00 Outpatient GENET NI [id number] [facility] 2024-05-25 16:30:00 2024-05-25 16:30:00 Outpatient LOREN HERNANDEZ [id number] [facility] 2024-05-25 15:55:00 2024-05-25 15:55:00 Outpatient LAB47 ANAT MERRITT [id number] [facility] 2024-05-23 00:00:00 2024-05-23 00:00:00 Outpatient ANAT MERRITT [id number] [facility] 2024-05-22 15:30:00 2024-05-22 15:30:00 Outpatient LOREN HERNANDEZ [id number] [facility] 2024-05-18 15:55:00 2024-05-18 15:55:00 Outpatient LAB47 ANAT MERRITT [id number] Anat [facility] 2024-05-18 15:05:00 2024-05-18 15:05:00 Outpatient TIFFANY DOUGLAS [id number] [facility] 2024-05-13 00:06:00 2024-05-13 02:18:00 Emergency X JOSUÉ NAGY [facility] [id number] [facility] 2024-05-13 00:06:00 2024-05-13 02:18:00 Emergency Josué Nagy [facility] .[id number] [id number] [facility] 2024-05-10 20:45:00 2024-05-10 20:45:00 Outpatient ANGELHARI JEAN ANAT [facility]ERRITT [id number] [facility] 2024-05-08 11:00:00 2024-05-08 11:00:00 Outpatient SIMON ANAT MERRITT [id number] [facility] 2024-05-07 13:00:00 2024-05-07 13:00:00 Outpatient LOREN HERNANDEZ [id number] [facility] 2024-05-05 20:35:00 2024-05-05 20:35:00 Outpatient JANET PERAZA [facility] [id number] [facility] 2024-05-01 10:30:00 2024-05-01 10:30:00 Outpatient LOREN HERNANDEZ [id number] [facility] 2024-04-13 14:30:00 2024-04-13 14:30:00 Outpatient JUNIOR BOONE [facility] [id number] [facility] 2023-11-30 21:48:00 2023-12-01 00:08:00 Emergency X Gildardo DUNNE [facility] [id number] [facility] 2023-11-30 21:48:00 2023-12-01 00:08:00 Emergency Gildardo Dunne [facility] .[id number] [id number] [id number] [facility] 2023-10-26 13:00:00 2023-10-26 13:00:00 Outpatient JOSETTE AGUIRRE [facility] [id number] [facility] 2023-10-13 21:42:00 2023-10-13 23:48:00 Emergency X ELEN [facility]ENEDICT [facility] E[facility] [id number] [facility] 2023-10-13 21:42:00 2023-10-13 23:48:00 Emergency Elen Benedict [facility] [id number] [facility] 2023-09-27 19:20:00 2023-09-27 20:33:42 Outpatient R HARSH HARO [facility] [id number] [facility] 2023-09-27 19:20:00 2023-09-27 20:33:42 Urgent Care Harsh Haro Unknown, Attending [facility] 1.840.114 350.1.13.10 4.2.7.2.[id number] [facility] 2023-09-27 00:00:00 2023-09-27 00:00:00 Orders Only Doctor Unassigned, Lockhart [facility] 1.2840.114 350.1.13.10 4.2.7.2.[id number] [facility] 2023-09-03 21:06:00 2023-09-04 00:27:00 Emergency X ELEN BENEDICT [facility] ERT [id number] [facility] 2023-09-03 21:06:00 2023-09-04 00:27:00 Emergency Elen Benedict [facility] 1.2840.114 350.1.13.10 4.2.7.2.[id number] [facility] 2023-08-29 10:21:00 2023-08-29 12:04:00 Emergency X NICOLE HUGHES [facility] ERT [id number] [facility] 2023-08-29 10:21:00 2023-08-29 12:04:00 Emergency Nicole Hughes [facility] 1.2.840.114 350.1.13.10 4.2.7.2.[id number] [facility] 2023-08-02 13:41:32 2023-08-02 13:41:32 Outpatient [facility] [id number] Leo Burgess 2023-05-25 10:30:00 2023-05-25 10:30:00 Outpatient KORTNEY HILL CHERYAL [facility] [id number] [facility] 2023-05-06 10:30:00 2023-05-06 10:30:00 Outpatient JOSETTE AGUIRRE [facility] [id number] [facility] 2023-03-12 00:00:00 2023-03-12 00:00:00 Patient Secure MsKortney Gonzalez [facility] 1.2.840.114 350.1.13.10 4.2.7.2.[id number] [facility] 2023-02-13 20:40:00 2023-02-13 20:40:00 Urgent Care Sydnie Andrade Unknown, Attending [place] [facility] 1.2.840.114 350.1.13.10 4.2.7.2.[id number] [facility] 2023-02-13 20:40:00 2023-02-13 20:26:50 Outpatient SYDNIE NEWTON [facility] [id number] [facility] 2022-12-22 00:00:00 2022-12-22 00:00:00 (TEL) STLMLC STLMLC [id number] Common [facility] 2022-12-07 08:00:00 2022-12-07 08:00:00 Outpatient R KORTNEY TREJO CHERYAL [facility] [id number] [facility] 2022-11-05 10:30:00 2022-11-05 11:06:14 Outpatient R CHEUNG JOSETTE [facility] [id number] [facility] 2022-11-05 10:30:00 2022-11-05 11:06:14 Office Visit Josette Cheung [facility] 1.2.840.114 350.1.13.10 4.2.7.2.[id number] [facility] 2022-11-05 00:00:00 2022-11-05 00:00:00 Orders Only Doctor Unassigned, Lockhart [facility] 1.2.840.114 350.1.13.10 4.2.7.2.[id number] [facility] 2022-11-04 00:00:00 2022-11-04 00:00:00 Patient Secure Shayy Pugh [facility] 1.2840.114 350.1.13.10 4.2.7.2.[id number] [facility] 2022-10-29 00:00:00 2022-10-29 00:00:00 Telephone Josette Cheung [facility] 1.2840.114 350.1.13.10 4.2.7.2.[id number] [facility] 2022-10-21 10:45:00 2022-10-21 10:52:00 Outpatient R KORTNEY TREJO CHERYAL [facility] [id number] [facility] 2022-10-21 10:45:00 2022-10-21 10:52:00 Office Visit Kortney Trejo [facility] 1.2840.114 350.1.13.10 4.2.7.2.[id number] [facility] 2022-10-15 10:00:00 2022-10-15 10:00:00 Outpatient R JOSETTE CHEUNG [facility] [id number] [facility] 2022-10-13 09:30:00 2022-10-13 09:34:04 Outpatient R MEENAKORTNEY [facility] [id number] [facility] 2022-10-13 09:30:00 2022-10-13 09:34:04 Office Visit Kortney Trejo [facility] 1..114 350.1.13.10 4.2.7.2.[id number] [facility] 2022-10-06 14:45:00 2022-10-06 14:45:00 Outpatient R MEENAKUNALEXKORTNEY DRISCOLL MEENAKUNBHUMIKAKORTNEY [facility] [id number] [facility] 2022-09-27 03:57:00 2022-09-28 15:45:00 Inpatient X JOSETTE CHEUNG [facility] [id number] [facility] 2022-09-27 03:57:00 2022-09-28 15:45:00 Hospital Encounter Josette Cheung [facility] 1..114 350.1.13.10 4.2.7.2.[id number] [facility] 2022-09-27 11:12:00 2022-09-27 14:21:00 Anesthesia Event Lila Peterson Stacey [facility] 1.2.114 350.1.13.10 4.2.7.2.[id number] [facility] 2022-09-24 13:15:00 2022-09-24 13:30:00 Log Handler Visit Pob, Adc Lab Main Josette Cheung [facility] 1.20.114 350.1.13.10 4.2.7.2.[id number] [facility] 2022-09-24 09:15:00 2022-09-24 09:51:57 Outpatient R MEENAKORTNEY [facility]END[facility] [id number] [facility] 2022-09-24 09:15:00 2022-09-24 09:51:57 [facility] 1.0.114 350.1.13.10 4.2.7.2.[id number] [facility] 2022-09-20 14:47:00 2022-09-20 16:05:00 Outpatient X [id number] 2022-09-20 14:47:00 2022-09-20 16:05:00 Emergency Josette Cheung [facility] 1.840.114 350.1.13.10 4.2.7.2.[id number] [facility] 2022-09-20 00:00:00 2022-09-20 00:00:00 [facility] 1.20.114 350.1.13.10 4.2.7.2.[id number] [facility] 2022-09-17 10:30:00 2022-09-17 10:37:48 Outpatient R JOSETTE CHEUNG [facility] [id number] [facility] 2022-09-17 10:30:00 2022-09-17 10:37:48 Routine Visit Josette Cheung [facility] 1.20.114 350.1.13.10 4.2.7.2.[id number] [facility] 2022-09-16 09:42:00 2022-09-16 11:30:00 Outpatient X JOSETTE CHEUNG [facility] [id number] [facility] 2022-09-16 09:42:00 2022-09-16 11:30:00 Emergency Josette Cheung [facility] 1.84.114 350.1.13.10 4.2.7.2.[id number] [facility] 2022-09-10 08:14:00 2022-09-10 10:42:00 Outpatient X JOSETTE CHEUNG [facility] [id number] [facility] 2022-09-10 08:14:00 2022-09-10 10:42:00 [facility] 1.84.114 350.1.13.10 4.2.7.2.[id number] [facility] 2022-09-10 10:00:00 2022-09-10 10:00:00 Outpatient R [facility] [id number] [facility] 2022-09-09 10:00:00 2022-09-09 10:19:15 Outpatient R [facility] [id number] [facility] 2022-09-09 10:00:00 2022-09-09 10:19:15 Routine Visit Kortney Trejo [facility] 1..114 350.1.13.10 4.2.7.2.[id number] [facility] 2022-09-09 00:00:00 2022-09-09 00:00:00 Telephone Kortney Trejo [facility] 1.2.840.114 350.1.13.10 4.2.7.2.[id number] [facility] 2022-09-08 00:00:00 2022-09-08 00:00:00 Nurse Triage Joanne Smith [facility] 1.2.840.114 350.1.13.10 4.2.7.2.[id number] [facility] 2022-09-08 00:00:00 2022-09-08 00:00:00 Patient Secure Kortney Hood [facility] 1.2840.114 350.1.13.10 4.2.7.2.[id number] [facility] 2022-09-07 19:07:00 2022-09-07 21:15:00 Outpatient X KIMBERLYN SR [facility] [id number] [facility] 2022-09-07 19:07:00 2022-09-07 21:15:00 Emergency AdKimberlyn rosa [facility] 1.840.114 350.1.13.10 4.2.7.2.[id number] [facility] 2022-09-06 08:15:00 2022-09-06 08:29:53 Log Handler Visit Ultrasound, Meche Greenfield [facility] BOBBIN [facility] 1.2.840.114 350.1.13.10 4.2.7.2.[id number] [facility] 2022-09-06 08:15:00 2022-09-06 08:15:00 Outpatient MECHE NAVA [facility] [id number] [facility] 2022-09-06 00:00:00 2022-09-06 00:00:00 Telephone Migdalia Alberto [facility] 1.20.114 350.1.13.10 4.2.7.2.[id number] [facility] 2022-09-04 20:58:00 2022-09-04 22:00:00 Outpatient X FELICITAS-SHASHANK S, [facility] [id number] [facility] 2022-09-04 20:58:00 2022-09-04 22:00:00 Emergency VasJarvis soliman-Shashank s, [facility] 1..114 350.1.13.10 4.2.7.2.[id number] [facility] 2022-09-04 00:00:00 2022-09-04 00:00:[address] Nurse [address] Dena Manrique [facility] 1.114 350.1.13.10 4.2.7.2.[id number] [facility] 2022-09-02 04:41:00 2022-09-02 07:04:00 Outpatient P JOSETTE CHEUNG [facility] [id number] [facility] 2022-09-02 04:41:00 2022-09-02 07:04:00 Hospital Encounter Josette Cheung [facility] 1.114 350.1.13.10 4.2.7.2.[id number] [facility] 2022-09-01 15:45:00 2022-09-01 16:36:53 Outpatient R KORTNEY TREJO CHERYAL [facility] [id number] [facility] 2022-09-01 15:45:00 2022-09-01 16:36:53 Routine Visit Kortney Trejo [facility] 1..114 350.1.13.10 4.2.7.2.[id number] [facility] 2022-08-31 00:00:00 2022-08-31 00:00:00 Telephone Kortney Trejo [facility] 1..114 350.1.13.10 4.2.7.2.[id number] [facility] 2022-08-27 10:00:00 2022-08-27 11:13:25 Outpatient R JOSETTE CHEUNG [facility] [id number] [facility] 2022-08-27 10:00:00 2022-08-27 11:13:25 Routine Visit Josette Cheung [facility] 1..114 350.1.13.10 4.2.7.2.[id number] [facility] 2022-08-23 13:45:00 2022-08-23 13:45:00 Outpatient R JOSETTE CHEUNG [facility] [id number] [facility] 2022-08-22 17:21:00 2022-08-22 20:03:00 Outpatient X ADKIMBERLYN ROSA [facility] [id number] [facility] 2022-08-22 17:21:00 2022-08-22 20:03:00 Emergency AdKimberlyn rosa [facility] 1..114 350.1.13.10 4.2.7.2.[id number] [facility] 2022-08-22 00:00:00 2022-08-22 00:00:00 Orders Only Doctor Unassigned, Lockhart [facility] 1..114 350.1.13.10 4.2.7.2.[id number] [facility] 2022-08-13 19:05:00 2022-08-13 20:17:00 Outpatient X ADKIMBERLYN ROSA [facility] [id number] [facility] 2022-08-13 19:05:00 2022-08-13 20:17:00 Emergency Kimberlyn Sr [facility] 1.0.114 350.1.13.10 4.2.7.2.[id number] [facility] 2022-08-13 10:00:00 2022-08-13 10:00:00 Routine Visit AntwanKortney driscoll [facility] 1..114 350.1.13.10 4.2.7.2.[id number] [facility] 2022-08-13 10:00:00 2022-08-13 09:48:20 Outpatient R [facility]RICK [facility] [id number] [facility] 2022-08-11 12:30:00 2022-08-11 12:30:00 Outpatient R [facility] [id number] [facility] 2022-08-09 11:00:00 2022-08-09 11:17:45 Outpatient R [facility]ICK [facility] [id number] [facility] 2022-08-09 11:00:00 2022-08-09 11:17:45 [facility] 1.0.114 350.1.13.10 4.2.7.2.[id number] [facility] 2022-08-08 15:26:00 2022-08-08 16:35:00 Outpatient JOSETTE KIDD [facility] [id number] [facility] 2022-08-08 15:26:00 2022-08-08 16:35:00 Emergency DreElen yeh Vien Cam [facility] 1.0.114 350.1.13.10 4.2.7.2.[id number] [facility] 2022-08-02 08:30:00 2022-08-02 09:00:00 Office Visit Kortney Trejo [facility] 1.2840.114 350.1.13.10 4.2.7.2.[id number] [facility] 2022-08-02 08:30:00 2022-08-02 08:30:00 Outpatient R KORTNEY TREJO CHERYAL [facility] [id number] [facility] 2022-07-31 07:18:00 2022-07-31 09:27:00 Emergency X JARVIS MCQUEEN [facility] E[facility] [id number] [facility] 2022-07-31 07:18:00 2022-07-31 09:27:00 Emergency Jarvis Mcqueen [facility] 1.2840.114 350.1.13.10 4.2.7.2.[id number] [facility] 2022-07-30 13:30:00 2022-07-30 13:44:47 Outpatient R KORTNEY TREJO CHERYAL [facility] [id number] [facility] 2022-07-30 13:30:00 2022-07-30 13:44:47 Routine Visit Kortney Trejo [facility] 1.2840.114 350.1.13.10 4.2.7.2.[id number] [facility] 2022-07-29 21:45:00 2022-07-29 23:36:00 Outpatient X KIMBERLYN SR [facility] [id number] [facility] 2022-07-29 21:45:00 2022-07-29 23:36:00 Emergency Moriah Lay S Kimberlyn Sr [facility] 1.2.840.114 350.1.13.10 4.2.7.2.[id number] [facility] 2022-07-26 15:30:00 2022-07-26 15:30:00 Outpatient R ANTWANYAMILA DALEPATRICK [facility] [id number] [facility] 2022-07-26 00:00:00 2022-07-26 00:00:00 Telephone Deb Cheungen [facility] 1.2.840.114 350.1.13.10 4.2.7.2.[id number] [facility] 2022-07-24 18:27:00 2022-07-24 20:15:00 Outpatient X JONATAN [facility] [id number] [facility] 2022-07-24 18:27:00 2022-07-24 20:15:00 Emergency Jonatan Josette [facility] 1.2.840.114 350.1.13.10 4.2.7.2.[id number] [facility] 2022-07-23 13:00:00 2022-07-23 13:31:03 Outpatient R ANTWANKORTNEY DRISCOLL [facility] [id number] [facility] 2022-07-23 13:00:00 2022-07-23 13:31:03 Routine Visit Kortney Trejo [facility] 1.2.840.114 350.1.13.10 4.2.7.2.[id number] [facility] 2022-07-23 00:00:00 2022-07-23 00:00:00 Telephone Jonatan Josette [facility] 1.2.840.114 350.1.13.10 4.2.7.2.[id number] [facility] 2022-07-22 00:00:00 2022-07-22 00:00:00 Telephone Deb Cheungen Roddy [facility] 1.2840.114 350.1.13.10 4.2.7.2.[id number] [facility] 2022-07-21 08:13:00 2022-07-21 11:00:00 Outpatient P JOSETTE CHEUNG [facility] [id number] [facility] 2022-07-21 08:13:00 2022-07-21 11:00:00 Hospital Encounter CheungJosette Roddy [facility] 1.2840.114 350.1.13.10 4.2.7.2.[id number] [facility] 2022-07-16 11:30:00 2022-07-16 12:01:54 Outpatient R JOSETTE CHEUNG [facility] [id number] [facility] 2022-07-16 11:30:00 2022-07-16 12:01:54 Routine Visit Josette Cheung [facility] 1.2840.114 350.1.13.10 4.2.7.2.[id number] [facility] 2022-07-16 00:00:00 2022-07-16 00:00:00 Orders Only Doctor Unassigned, Lockhart [facility] 1.2840.114 350.1.13.10 4.2.7.2.[id number] [facility] 2022-07-14 11:30:00 2022-07-14 12:03:26 Outpatient R KORTNEY TREJO CHERYAL [facility] [id number] [facility] 2022-07-14 11:30:00 2022-07-14 12:03:26 Office Visit Kortney Trejo [facility] 1.0.114 350.1.13.10 4.2.7.2.[id number] [facility] 2022-07-10 19:56:00 2022-07-11 10:46:00 Outpatient X SAM BRADLEY [facility] [id number] [facility] 2022-07-10 19:56:00 2022-07-11 10:46:00 Emergency Sam Bradley [facility] 1.840.114 350.1.13.10 4.2.7.2.[id number] [facility] 2022-07-10 00:00:00 2022-07-10 00:00:00 Orders Only Doctor Unassigned, Lockhart [facility] 1.0.114 350.1.13.10 4.2.7.2.[id number] [facility] 2022-07-08 08:45:00 2022-07-08 09:00:00 Log Handler Visit Pob, Adc Lab Main Cole[facility]am[facility] located within [facility] 1..114 350.1.13.10 4.2.7.2.[id number] [facility] 2022-07-08 08:45:00 2022-07-08 08:45:00 Outpatient R KORTNEY TREJO [facility] [id number] [facility] 2022-06-30 10:30:00 2022-06-30 10:45:05 Outpatient R [facility] [id number] [facility] 2022-06-30 10:30:00 2022-06-30 10:45:05 Routine Visit Kortney Trejo [facility] 1..114 350.1.13.10 4.2.7.2.[id number] [facility] 2022-06-30 10:30:00 2022-06-30 10:30:00 Outpatient R KORTNEY TREJO CHERYAL [facility] [id number] [facility] 2022-06-30 10:30:00 2022-06-30 10:30:00 Outpatient R KORTNEY TREJO CHERYAL [facility] [id number] [facility] 2022-06-28 14:15:00 2022-06-28 14:30:00 Log Handler Visit Lalito, [place] Lab Main Kortney Trejo [facility] 1.840.114 350.1.13.10 4.2.7.2.[id number] [facility] 2022-06-28 14:15:00 2022-06-28 14:15:00 Outpatient R KORTNEY TREJO CHERYAL [facility] [id number] [facility] 2022-06-28 00:00:00 2022-06-28 00:00:00 Orders Only Doctor Unassigned, Lockhart [facility] 1.840.114 350.1.13.10 4.2.7.2.[id number] [facility] 2022-06-25 11:30:00 2022-06-25 11:30:00 Office Visit MeenaKortney oquendo [facility] 1..114 350.1.13.10 4.2.7.2.[id number] [facility] 2022-06-25 11:30:00 2022-06-25 11:26:42 Outpatient R KORTNEY TREJO CHERYAL [facility] [id number] [facility] 2022-06-24 09:30:00 2022-06-24 09:30:00 Outpatient R JOSETTE CHEUNG [facility] [id number] [facility] 2022-06-24 00:00:00 2022-06-24 00:00:00 Telephone Kortney Trejo [facility] 1..114 350.1.13.10 4.2.7.2.[id number] [facility] 2022-06-22 00:00:00 2022-06-22 00:00:00 Telephone Josette Cheung [facility] BUILDING 1..114 350.1.13.10 4.2.7.2.[id number] [facility] 2022-06-18 10:30:00 2022-06-18 11:52:49 Log Handler Visit 2, [facility] Room Migdalia Vazquez [facility] 1..114 350.1.13.10 4.2.7.2.[id number] [facility] 2022-06-18 10:30:00 2022-06-18 10:30:00 Outpatient MIGDALIA WADE SHANNON [facility] [id number] [facility] 2022 14:00:00 2022 15:15:53 Outpatient R JOSETTE CHEUNG [facility] [id number] [facility] 2022 14:00:00 2022 15:15:53 Routine Visit Josette Cheung [facility] 1..114 350.1.13.10 4.2.7.2.[id number] [facility] 2022 00:00:00 2022 00:00:00 Orders Only Doctor Unassigned, [place] [facility] 1.2.114 350.1.13.10 4.2.7.2.[id number] [facility] 2022-06-02 13:30:00 2022-06-02 14:07:33 Outpatient R KORTNEY TREJOYAMILAKORTNEY [facility] [id number] [facility] 2022-06-02 13:30:00 2022-06-02 14:07:33 Routine Visit Kortney Trejo [facility] 1.114 350.1.13.10 4.2.7.2.[id number] [facility] 2022-05-21 08:00:00 2022-05-21 08:59:22 Log Handler Visit 2, [facility] Room Meche Arroyo [facility] 1.114 350.1.13.10 4.2.7.2.[id number] [facility] 2022-05-21 08:00:00 2022-05-21 08:00:00 Outpatient P MECHE ARROYO [facility] [id number] [facility] 2022-05-18 10:00:00 2022-05-18 10:00:00 Outpatient R LEONOR MUELLER [facility] [id number] [facility] 2022-05-17 14:00:00 2022-05-17 14:00:00 Outpatient P [facility] [id number] [facility] 2022-05-17 14:00:00 2022-05-17 14:00:00 Outpatient P [facility] [id number] [facility] 2022-05-06 00:00:00 2022-05-06 00:00:00 Telephone Kortney Trejo [facility] 1..114 350.1.13.10 4.2.7.2.[id number] [facility] 2022-05-05 13:30:00 2022-05-05 14:17:16 Outpatient R KORTNEY TREJO [facility] [id number] [facility] 2022-05-05 13:30:00 2022-05-05 14:17:16 Routine Visit [facility] 1.2.840.114 350.1.13.10 4.2.7.2.[id number] [facility] 2022-05-03 00:00:00 2022-05-03 00:00:00 [facility] 1.2.840.114 350.1.13.10 4.2.7.2.[id number] [facility] 2022-04-29 00:00:00 2022-04-29 00:00:00 [facility] 1.2.840.114 350.1.13.10 4.2.7.2.[id number] [facility] 2022-04-28 00:00:00 2022-04-28 00:00:00 Refill [facility] 1.2.840.114 350.1.13.10 4.2.7.2.[id number] [facility] 2022-04-27 00:00:00 2022-04-27 00:00:00 Patient Secure Msg [facility] 1.2.840.114 350.1.13.10 4.2.7.2.[id number] [facility] 2022-04-23 00:00:00 2022-04-23 00:00:00 Telephone Tritschler, [facility] 1.2840.114 350.1.13.10 4.2.7.2.[id number] [facility] 2022-04-14 09:15:00 2022-04-14 09:19:38 [facility] [id number] [facility] 2022-04-14 09:15:00 2022-04-14 09:19:38 [facility] 1.2840.114 350.1.13.10 4.2.7.2.[id number] [facility] 2022-04-11 05:57:00 2022-04-11 06:10:00 Emergency X ESTHER GARZA [facility] ERT [id number] [facility] 2022-04-11 05:57:00 2022-04-11 06:10:00 Emergency Esther Garza [facility] 1.840.114 350.1.13.10 4.2.7.2.[id number] [facility] 2022-04-11 00:00:00 2022-04-11 00:00:00 Nurse Triage Truong Leo [facility] 1.840.114 350.1.13.10 4.2.7.2.[id number] [facility] 2022-04-09 00:00:00 2022-04-09 00:00:00 Orders Only Doctor Unassigned, Lockhart [facility] 1.2840.114 350.1.13.10 4.2.7.2.[id number] [facility] 2022-04-07 09:00:00 2022-04-07 09:31:10 Outpatient R KORTNEY TREJO [facility] [id number] [facility] 2022-04-07 09:00:00 2022-04-07 09:31:10 Routine Visit Kortney Trejo [facility] 1.2840.114 350.1.13.10 4.2.7.2.[id number] [facility] 2022-04-07 09:00:00 2022-04-07 09:00:00 Outpatient R KORTNEY TREJO CHERYAL [facility] [id number] [facility] 2022-04-05 08:26:00 2022-04-05 08:44:00 Emergency X ESTHER GARZA [facility] ERT [id number] [facility] 2022-04-05 08:26:00 2022-04-05 08:44:00 Emergency Esther Garza [facility] 1.2840.114 350.1.13.10 4.2.7.2.[id number] [facility] 2022-04-05 00:00:00 2022-04-05 00:00:00 Letter (Out) Cecy Wesley [facility] 1.2840.114 350.1.13.10 4.2.7.2.[id number] [facility] 2022-04-05 00:00:00 2022-04-05 00:00:00 Orders Only Doctor Unassigned, Lockhart [facility] 1.2.840.114 350.1.13.10 4.2.7.2.[id number] [facility] 2022-04-04 16:20:00 2022-04-04 16:46:38 Outpatient R LEONOR MUELLER [facility] [id number] [facility] 2022-04-04 16:20:00 2022-04-04 16:46:38 Urgent Care Leonor Mueller [facility] 1.284.114 350.1.13.10 4.2.7.2.[id number] [facility] 2022-04-01 00:00:00 2022-04-01 00:00:00 Telephone Cheung, Josette Roddy [facility] 1.840.114 350.1.13.10 4.2.7.2.[id number] [facility] 2022-04-01 00:00:00 2022-04-01 00:00:00 Refill Kortney Trejo [facility] 1.84.114 350.1.13.10 4.2.7.2.[id number] [facility] 2022-03-31 09:30:00 2022-03-31 09:45:00 Log Handler Visit Lab, Marcos [facility] 1.84.114 350.1.13.10 4.2.7.2.[id number] [facility] 2022-03-31 09:30:00 2022-03-31 09:30:00 Outpatient R [facility] [id number] [facility] 2022-03-31 09:30:00 2022-03-31 09:30:00 Outpatient R KORTNEY TREJO CHERYAL [facility] [id number] [facility] 2022-03-31 00:00:00 2022-03-31 00:00:00 Orders Only Doctor Unassigned, Lockhart [facility] 1.84.114 350.1.13.10 4.2.7.2.[id number] [facility] 2022-03-24 10:00:00 2022-03-24 10:13:45 Outpatient [id number] 2022-03-24 10:00:00 2022-03-24 10:13:45 Office Visit Kortney Trejo [facility] 1.2.840.114 350.1.13.10 4.2.7.2.[id number] [facility] 2022-03-24 00:00:00 2022-03-24 00:00:00 Letter (Out) Maya [facility] 1.2840.114 350.1.13.10 4.2.7.2.[id number] [facility] 2022-03-20 20:41:00 2022-03-21 01:22:00 Emergency X ELPIDIO MARTINEZ [facility] ERT [id number] [facility] 2022-03-20 20:41:00 2022-03-21 01:22:00 Emergency Elpidio Martinez [facility] 1.2.840.114 350.1.13.10 4.2.7.2.[id number] [facility] 2022-03-17 00:00:00 2022-03-17 00:00:00 Outpatient R [facility] [id number] [facility] 2022-03-12 00:00:00 2022-03-12 00:00:00 Telephone Josette Cheung [facility] 1.2.840.114 350.1.13.10 4.2.7.2.[id number] [facility] 2022-03-10 13:00:00 2022-03-10 13:44:04 Outpatient R KORTNEY TREJO [facility] [id number] [facility] 2022-03-10 13:00:00 2022-03-10 13:44:04 Routine Visit Kortney Trejo [facility] 1.2.840.114 350.1.13.10 4.2.7.2.[id number] [facility] 2022-03-10 13:00:00 2022-03-10 13:00:00 Outpatient R KORTNEY TREJO CHERYAL [facility] [id number] [facility] 2022-03-02 00:00:00 2022-03-02 00:00:00 Patient Secure [facility] 1.2.840.114 350.1.13.10 4.2.7.2.[id number] [facility] 2022-03-01 15:00:00 2022-03-01 15:33:04 [facility] 1.2.840.114 350.1.13.10 4.2.7.2.[id number] [facility] 2022-03-01 15:00:00 2022-03-01 15:33:04 Outpatient R KORTNEY TREJO [facility] [id number] [facility] 2022-03-01 00:00:00 2022-03-01 00:00:00 Letter (Out) Maya [facility] 1.2.840.114 350.1.13.10 4.2.7.2.[id number] [facility] 2022-02-24 11:06:00 2022-02-24 12:11:00 Emergency X KAI LARKIN [facility] E[facility] [id number] [facility] 2022-02-24 11:06:00 2022-02-24 12:11:00 Emergency Kai Larkin [facility] 1.2.840.114 350.1.13.10 4.2.7.2.[id number] [facility] 2022-02-24 11:06:00 2022-02-24 12:11:00 Emergency X KAI LARKIN [facility] ERT [id number] [facility] 2022-02-21 13:39:00 2022-02-21 14:32:00 Emergency X ELPIDIO MARTINEZ [facility] ERT [id number] [facility] 2022-02-21 13:39:00 2022-02-21 14:32:00 Emergency Elpidio Martinez S [facility] 1.2.840.114 350.1.13.10 4.2.7.2.[id number] [facility] 2022-02-19 00:00:00 2022-02-19 00:00:00 Telephone Josette Cheung [facility] 1.2.840.114 350.1.13.10 4.2.7.2.[id number] [facility] 2022-02-16 09:00:00 2022-02-16 09:00:00 Outpatient [facility] [id number] [facility] 2022-02-15 09:30:00 2022-02-15 10:32:37 Outpatient R KORTNEY TREJO [facility] [id number] [facility] 2022-02-15 09:30:00 2022-02-15 10:32:37 [facility] 1.2.840.114 350.1.13.10 4.2.7.2.[id number] [facility] 2022-02-14 13:00:00 2022-02-14 13:20:00 Urgent Care Osmany [facility] 1.2.840.114 350.1.13.10 4.2.7.2.[id number] [facility] 2022-02-14 13:00:00 2022-02-14 13:00:00 Outpatient R OSMANY [facility] [id number] [facility] 2022-02-14 00:00:00 2022-02-14 00:00:00 Letter (Out) Osmany [facility] 1.2.840.114 350.1.13.10 4.2.7.2.[id number] [facility] 2022-02-12 00:00:00 2022-02-12 00:00:00 Telephone Kortney Trejo [facility] 1.2.840.114 350.1.13.10 4.2.7.2.[id number] [facility] 2022-02-11 13:00:00 2022-02-11 13:15:00 Log Handler Visit Lab, Marcos Trejo [facility] 1.2.840.114 350.1.13.10 4.2.7.2.[id number] [facility] 2022-02-11 13:00:00 2022-02-11 13:00:00 Outpatient R KORTNEY TREJO CHERYAL [facility] [id number] [facility] 2022-02-10 13:00:00 2022-02-10 13:25:06 Outpatient R KORTNEY TREJO CHERYAL [facility] [id number] [facility] 2022-02-10 13:00:00 2022-02-10 13:25:06 [facility]ine [facility] 1.20.114 350.1.13.10 4.2.7.2.[id number] [facility] 2022-02-10 00:00:00 2022-02-10 00:00:00 Patient Secure John Gomez [facility] 1.2840.114 350.1.13.10 4.2.7.2.[id number] [facility] 2022-02-09 13:00:00 2022-02-09 13:15:00 Log Handler Visit Lab, Marcos Trejo [facility] 1.84.114 350.1.13.10 4.2.7.2.[id number] [facility] 2022-02-09 13:00:00 2022-02-09 13:00:00 Outpatient [facility] [id number] [facility] 2022-02-09 09:00:00 2022-02-09 09:36:35 Routine Visit Kortney Trejo [facility] 1.20.114 350.1.13.10 4.2.7.2.[id number] [facility] 2022-02-05 13:19:16 2022-02-05 23:59:00 Outpatient R KORTNEY TREJO [facility] [id number] [facility] 2022-02-05 13:19:16 2022-02-05 23:59:00 Hospital Encounter Kortney Trejo [facility] 1.284.114 350.1.13.10 4.2.7.2.[id number] [facility] 2022-02-05 00:00:00 2022-02-05 00:00:00 Orders Only Doctor Unassigned, Lockhart [facility] 1.840.114 350.1.13.10 4.2.7.2.[id number] [facility] 2022-02-03 14:22:00 2022-02-03 17:02:00 Emergency X SINGER NIXON [facility] ERT [id number] [facility] 2022-02-03 14:22:00 2022-02-03 17:02:00 Emergency Nixon Washington [facility] 1.0.114 350.1.13.10 4.2.7.2.[id number] [facility] 2022-02-03 08:00:00 2022-02-03 08:15:00 Log Handler Visit Pob, Adc Lab Main [facility]ortney Tre[facility] 1..114 350.1.13.10 4.2.7.2.[id number] [facility] 2022-02-03 08:00:00 2022-02-03 08:00:00 Outpatient R KORTNEY TREJO CHERYAL [facility] [id number] [facility] 2022-02-03 00:00:00 2022-02-03 00:00:00 Patient Secure John Gomez [facility] 1.114 350.1.13.10 4.2.7.2.[id number] [facility] 2022-02-02 09:00:00 2022-02-02 09:20:46 Outpatient R KORTNEY TREJO CHERYAL [facility] [id number] [facility] 2022-02-02 09:00:00 2022-02-02 09:20:46 Routine Visit Kortney Trejo [facility] 1.2.840.114 350.1.13.10 4.2.7.2.[id number] [facility] 2022-02-02 09:00:00 2022-02-02 09:20:46 Outpatient R [facility] [id number] [facility] 2022-02-02 00:00:00 2022-02-02 00:00:00 Patient Secure Msg Maya [facility] 1.2.840.114 350.1.13.10 4.2.7.2.[id number] [facility] 2022-02-01 13:30:00 2022-02-01 17:02:00 Emergency X KAI LARKIN [facility] ERT [id number] [facility] 2022-02-01 13:30:00 2022-02-01 17:02:00 Emergency Kai Larkin [facility] 1.2.840.114 350.1.13.10 4.2.7.2.[id number] [facility] 2022-02-01 00:00:00 2022-02-01 00:00:00 [facility]phone [facility] 1.2.840.114 350.1.13.10 4.2.7.2.[id number] [facility] 2022-02-01 00:00:00 2022-02-01 00:00:00 Case Management [facility] 1.2.840.114 350.1.13.10 4.2.7.2.[id number] [facility] 2022-01-30 09:15:00 2022-01-30 09:30:00 Log Handler Visit Pob, [place] Lab Main Kortney Trejo [facility] 1..840.114 350.1.13.10 4.2.7.2.[id number] [facility] 2022-01-30 09:15:00 2022-01-30 09:15:00 Outpatient R KORTNEY TREJO CHERYAL [facility] [id number] [facility] 2022-01-29 00:00:00 2022-01-29 00:00:00 Patient Secure Msg Doctor Unassigned, Lockhart [facility] 1.840.114 350.1.13.10 4.2.7.2.[id number] [facility] 2022-01-27 09:00:00 2022-01-27 09:15:00 Log Handler Visit Lab, Marcos - Kortney Neil [facility] 1..840.114 350.1.13.10 4.2.7.2.[id number] [facility] 2022-01-27 09:00:00 2022-01-27 09:00:00 Outpatient R KORTNEY TREJO CHERYAL [facility] [id number] [facility] 2022-01-27 00:00:00 2022-01-27 00:00:00 Case Management Kortney Trejo [facility] 1..114 350.1.13.10 4.2.7.2.[id number] [facility] 2022-01-26 09:00:00 2022-01-26 09:42:07 Outpatient R KORTNEY TREJO CHERYAL [facility] [id number] [facility] 2022-01-26 09:00:00 2022-01-26 09:42:07 Initial Visit Maya [facility] 1.2.840.114 350.1.13.10 4.2.7.2.[id number] [facility] 2022-01-26 00:00:00 2022-01-26 00:00:00 Patient Secure John Gomez [facility] 1.2.840.114 350.1.13.10 4.2.7.2.[id number] [facility] 2022-01-26 00:00:00 2022-01-26 00:00:00 Telephone [facility] 1.20.114 350.1.13.10 4.2.7.2.[id number] [facility] 2022-01-25 10:30:00 2022-01-25 10:45:00 Log Handler Visit Lab, Marcos Almeida [facility] 1..840.114 350.1.13.10 4.2.7.2.[id number] [facility] 2022-01-25 10:30:00 2022-01-25 10:30:00 [facility] [id number] [facility] 2022-01-25 10:00:00 2022-01-25 10:09:56 Urgent Care [facility] 1.2.840.114 350.1.13.10 4.2.7.2.[id number] [facility] 2022-01-25 00:00:00 2022-01-25 00:00:00 Patient Secure Nydia Hsu [facility] 1..840.114 350.1.13.10 4.2.7.2.[id number] [facility] 2022-01-12 00:00:00 2022-01-12 00:00:00 OFFICE VISIT EST PT LEVEL 3 STLMLC ST[facility]C [id number] [facility] 2022-01-11 00:00:00 2022-01-11 00:00:00 (TEL) STLMLC [facility]LMLC [id number] [facility] 2021-12-18 18:00:00 2021-12-18 18:00:00 Outpatient R ERIKA PHILLIPSTANY [facility] [id number] [facility] 2021-12-14 00:00:00 2021-12-14 00:00:00 Patient Secure Msg [facility] 1..840.114 350.1.13.10 4.2.7.2.[id number] [facility] 2021-12-11 00:00:00 2021-12-11 00:00:00 Patient Secure Msg [facility] 1.2.840.114 350.1.13.10 4.2.7.2.[id number] [facility] 2021-10-22 11:00:00 2021-10-22 11:00:00 Outpatient R EZRA DELEON [facility] [id number] [facility] 2021-10-22 00:00:00 2021-10-22 00:00:00 Refill Sydnie Andrade [facility] 1.2.840.114 350.1.13.10 4.2.7.2.[id number] [facility] 2021-10-15 11:40:00 2021-10-15 13:06:17 Outpatient R SYDNIE ANDRADE [facility] [id number] [facility] 2021-10-15 11:40:00 2021-10-15 12:00:00 [facility] 1.2.840.114 350.1.13.10 4.2.7.2.[id number] [facility] 2021-10-12 00:00:00 2021-10-12 00:00:00 OFFICE VISIT ESTAB PT LEVEL 1 STLMLC STLMLC [id number] [facility] 2021-10-12 00:00:00 2021-10-12 00:00:00 (TEL) STLMLC STLMLC [id number] [facility] 2021-09-10 00:00:00 2021-09-10 00:00:00 [facility]ill [facility] 1.2.840.114 350.1.13.10 4.2.7.2.[id number] [facility] 2021-07-31 00:00:00 2021-07-31 00:00:00 Patient Secure Msg CheungJosette [facility] 1.2.840.114 350.1.13.10 4.2.7.2.[id number] [facility] 2021-07-30 00:00:00 2021-07-30 00:00:00 Telephone Josette Cheung [facility] 1.2.840.114 350.1.13.10 4.2.7.2.[id number] [facility] 2021-07-29 19:42:00 2021-07-29 21:40:00 Emergency Elen Benedict [facility] 1.2840.114 350.1.13.10 4.2.7.2.[id number] [facility] 2021-07-19 00:00:00 2021-07-19 00:00:00 [facility]Silvio p[facility]rez Medical [facility] Building 1.284.114 350.1.13.10 4.2.7.2.[id number] [facility] 2021-07-14 17:18:01 2021-07-14 17:47:01 Urgent Care Jacqueline [facility] 1.284.114 350.1.13.10 4.2.7.2.[id number] [facility] 2021-07-14 17:40:00 2021-07-14 17:40:00 Outpatient R NYDIA PHILLIPS [facility] [id number] [facility] 2021-07-14 10:00:00 2021-07-14 10:00:00 Outpatient R NYDIA PHILLIPS [facility] [id number] [facility] 2021-07-10 00:00:00 2021-07-10 00:00:00 OFFICE VISIT EST PT LEVEL 3 STLMLC STLMLC [id number] [facility] 2021-07-03 15:00:00 2021-07-03 15:00:00 Outpatient R ELLE SAMUELS [facility] [id number] [facility] 2021-07-03 00:00:00 2021-07-03 00:00:00 Patient Secure Msg YuliaElle [facility] 1.284.114 350.1.13.10 4.2.7.2.[id number] [facility] 2021-06-30 11:55:40 2021-06-30 12:25:40 Office Visit Yulia Elle [facility] NYDIA DONG 1.2.840.114 350.1.13.10 4.2.7.2.[id number] [facility] 2021-06-30 09:02:52 2021-06-30 09:22:31 Urgent Care Leonor Mueller [facility]?Silvio ospina Medical Office Building 1.2840.114 350.1.13.10 4.2.7.2.[id number] [facility] 2021-06-30 09:00:00 2021-06-30 09:00:[address] [facility] [id number] [facility] 2021-06-22 00:00:00 2021-06-22 00:00:00 Letter (Out) [facility] 1.2840.114 350.1.13.10 4.2.7.2.[id number] [facility] 2021-06-22 00:00:00 2021-06-22 00:00:00 Letter (Out) [facility] 1.2.840.114 350.1.13.10 4.2.7.2.[id number] [facility] 2021-06-22 00:00:00 2021-06-22 00:00:00 Patient Secure Msg Doctor Unassigned, Lockhart [facility] 1.2.840.114 350.1.13.10 4.2.7.2.[id number] [facility] 2021-06-21 15:13:00 2021-06-21 16:17:00 Emergency Shanika Joaquin [facility] 1.2840.114 350.1.13.10 4.2.7.2.[id number] [facility] 2021-06-21 15:13:00 2021-06-21 16:17:00 Emergency Shanika Joaquin [facility] 1.2.114 350.1.13.10 4.2.7.2.[id number] [facility] 2021-06-20 12:17:23 2021-06-20 13:00:14 Urgent Care Evaomilori Delvis Raymond [facility]?Silvio ospina Medical Office Building 1.114 350.1.13.10 4.2.7.2.[id number] [facility] 2021-06-20 12:20:00 2021-06-20 12:20:00 Outpatient R [facility] [id number] [facility] 2021-06-20 00:00:00 2021-06-20 00:00:00 Orders Only Doctor Unassigned, Lockhart [facility] 1..114 350.1.13.10 4.2.7.2.[id number] [facility] 2021-06-20 00:00:00 2021-06-20 00:00:00 Orders Only Doctor Unassigned, Lockhart [facility] 1.20.114 350.1.13.10 4.2.7.2.[id number] [facility] 2021-06-13 17:45:00 2021-06-13 17:45:00 Outpatient R JACQUELINE [facility] [id number] [facility] 2021-06-13 17:08:31 2021-06-13 17:23:31 Laboratory Only Only, Ang Db Test Jacqueline, [facility] 1.284114 350.1.13.10 4.2.7.2.[id number] [facility] 2021-04-14 08:30:00 2021-04-14 08:30:00 Outpatient R BRIDGETTE CHRISTIANO [facility] [id number] [facility] 2021-04-13 00:00:00 2021-04-13 00:00:00 Refill Jerod Angelo [facility] 1..840.114 350.1.13.10 4.2.7.2.[id number] [facility] 2021-04-12 12:00:26 2021-04-12 13:54:05 Urgent Care Provider, [facility] Krysta Mckeon [facility] 1..840.114 350.1.13.10 4.2.7.2.[id number] [facility] 2021-04-12 12:00:00 2021-04-12 12:00:00 Outpatient R KRYSTA MCKEON [facility] [id number] [facility] 2021-04-09 00:00:00 2021-04-09 00:00:00 OFFICE VISIT ESTAB PT LEVEL 4 STLMLC STLMLC [id number] [facility] 2021-04-01 00:00:00 2021-04-01 00:00:00 Patient Secure Msg Cheung Josette Pereyra [facility] 1..840.114 350.1.13.10 4.2.7.2.[id number] [facility] 2021-03-18 00:00:00 2021-03-18 00:00:00 (TEL) STLMLC STLMLC [id number] [facility] 2021-03-11 00:00:00 2021-03-11 00:00:00 (WEB) STLMLC STLMLC [id number] [facility] 2021-03-05 00:00:00 2021-03-05 00:00:00 OFFICE VISIT EST PT LEVEL 3 STLMLC STLMLC [id number] [facility] 2021-03-04 00:00:00 2021-03-04 00:00:00 Patient Secure Msg Josette Cheung [facility] 1.2.840.114 350.1.13.10 4.2.7.2.[id number] [facility] 2021-02-04 00:00:00 2021-02-04 00:00:00 PREV VISIT EST AGE 18-39 STLMLC STLMLC [id number] [facility] 2021-01-05 00:00:00 2021-01-05 00:00:00 Outpatient STLMLC STLMLC [id number] [facility] 2020-12-30 00:00:00 2020-12-30 00:00:00 Patient Outreach Farzad Vazquez [facility] 1.2.840.114 350.1.13.10 4.2.7.2.[id number] [facility] 2020-12-03 00:00:00 2020-12-03 00:00:00 Patient Secure Msg Josette Cheung [facility] 1.2.840.114 350.1.13.10 4.2.7.2.[id number] [facility] 2020-11-04 00:00:00 2020-11-04 00:00:00 Outpatient STLMLC STLMLC [id number] [facility] 2020-11-03 00:00:00 2020-11-03 00:00:00 Outpatient STLMLC STLMLC [id number] [facility] 2020-10-15 00:00:00 2020-10-15 00:00:00 Telephone Christiano Angeles [facility] 1.2.840.114 350.1.13.10 4.2.7.2.[id number] [facility] 2020-10-15 00:00:00 2020-10-15 00:00:00 Patient Secure Msg Doctor Unassigned, [place] [facility] 1.2.840.114 350.1.13.10 4.2.7.2.[id number] [facility] 2020-10-15 00:00:00 2020-10-15 00:00:00 Telephone Christiano Angeles [facility] Jose Chong [facility] 1.2.840.114 350.1.13.10 4.2.7.2.686 [id number] 134 [id number] 2020-10-14 00:00:00 2020-10-14 00:00:00 Telephone Christiano Angeles [facility] 1.2.840.114 350.1.13.10 4.2.7.2.[id number] [facility] 2020-10-14 00:00:00 2020-10-14 00:00:00 Case Management Christiano Angeles VAALYSHA [facility] 1.2.840.114 350.1.13.10 4.2.7.2.[id number] [facility] 2020-10-14 00:00:00 2020-10-14 00:00:00 Case Management Christiano Angeles [facility] 1.2.840.114 350.1.13.10 4.2.7.2.686 [id number] 134 [id number] 2020-10-14 00:00:00 2020-10-14 00:00:00 Telephone Christiano Angeles [facility] 1.2.840.114 350.1.13.10 4.2.7.2.686 [id number] 134 [id number] 2020-10-06 18:51:56 2020-10-06 23:59:00 Hospital Encounter Christiano Angeles [facility] 1.2.840.114 350.1.13.10 4.2.7.2.[id number] [facility] 2020-10-06 18:51:56 2020-10-06 23:59:00 [facility] 1.2.840.114 350.1.13.10 4.2.7.2.686 [id number] [id number] 2020-10-06 00:00:00 2020-10-06 00:00:00 Outpatient R [facility] [id number] [facility] 2020-10-06 00:00:00 2020-10-06 00:00:00 Orders Only Doctor Unassigned, Lockhart [facility] 1.2.840.114 350.1.13.10 4.2.7.2.[id number] [facility] 2020-10-06 00:00:00 2020-10-06 00:00:00 Orders Only Doctor Unassigned, Lockhart [facility] 1.2.840.114 350.1.13.10 4.2.7.2.686 [id number] 009 [id number] 2020-10-01 00:00:00 2020-10-01 00:00:00 Orders Only Doctor Unassigned, Lockhart [facility] 1.2.840.114 350.1.13.10 4.2.7.2.[id number] [facility] 2020-10-01 00:00:00 2020-10-01 00:00:00 Orders Only Doctor Unassigned, Lockhart [facility] 1.2.840.114 350.1.13.10 4.2.7.2.686 [id number] 009 [id number] 2020-09-30 10:09:30 2020-09-30 11:23:11 Office Visit Christiano Angeles Vivian L [facility] Building 1.2.840.114 350.1.13.10 4.2.7.2.[id number] [facility] 2020-09-30 10:09:30 2020-09-30 11:23:11 Office Visit Christiano Angeles [facility] Building 1.2.840.114 350.1.13.10 4.2.7.2.686 [id number] 134 [id number] 2020-09-30 10:00:00 2020-09-30 10:00:00 Outpatient KIMBERLYN GOLDBERG [facility] [id number] [facility] 2020-09-29 00:00:00 2020-09-29 00:00:00 Patient Secure g Josette Cheung [facility] 1.2.840.114 350.1.13.10 4.2.7.2.[id number] [facility] 2020-09-29 00:00:00 2020-09-29 00:00:00 Patient Secure g Josette Cheung [facility] 1.2.840.114 350.1.13.10 4.2.7.2.[id number] [facility] 2020-09-29 00:00:00 2020-09-29 00:00:00 Patient Secure g Josette Cheung [facility] 1.2.840.114 350.1.13.10 4.2.7.2.[id number] [facility] 2020-09-25 00:00:00 2020-09-25 00:00:00 Outpatient STLMLC [facility] [id number] [facility] 2020-09-23 00:00:2020-09-23 00:00:00 Outpatient STLMLC STL[facility]C [id number] [facility] 2020-09-23 00:00:00 2020-09-23 00:00:00 Outpatient STLMLC STLMLC [id number] [facility] 2020-09-18 09:00:00 2020-09-18 09:00:00 Outpatient CHRISTIANO NAIDU [facility] [id number] [facility] 2020-09-18 00:00:00 2020-09-18 00:00:00 Outpatient STLMLC STLMLC [id number] [facility] 2020-09-17 00:00:00 2020-09-17 00:00:00 Patient Secure Josette Davis Roddy [facility] 1.2.840.114 350.1.13.10 4.2.7.2.[id number] [facility] 2020-09-03 00:00:00 2020-09-03 00:00:00 Outpatient STLMLC STLMLC [id number] [facility] 2020-09-02 00:00:00 2020-09-02 00:00:00 Outpatient STLMLC STLMLC [id number] [facility] 2020-09-02 00:00:00 2020-09-02 00:00:00 Outpatient STLMLC STLMLC [id number] [facility] 2020-07-21 00:00:00 2020-07-21 00:00:00 Outpatient STLMLC STLMLC [id number] [facility] 2020-07-07 00:00:00 2020-07-07 00:00:00 Zara Angeles Christian[facility] 1.2.840.114 350.1.13.10 4.2.7.2.[id number] [facility] 2020-07-02 00:00:00 2020-07-02 00:00:00 Zara Angeles Christiano [facility] 1.2.840.114 350.1.13.10 4.2.7.2.[id number] [facility] 2020-06-30 00:00:00 2020-06-30 00:00:00 Refill Josette Cheung [facility] nal Building 1.2.840.114 350.1.13.10 4.2.7.2.[id number] [facility] 2020-06-27 00:00:00 2020-06-27 00:00:00 Refill Josette Cheung [facility] Building 1.2.840.114 350.1.13.10 4.2.7.2.[id number] [facility] 2020-06-27 00:00:00 2020-06-27 00:00:00 Refill Josette Cheung [facility] Building 1.2.840.114 350.1.13.10 4.2.7.2.[id number] [facility] 2020-06-11 10:02:40 2020-06-11 10:54:19 Office Visit Bridgette Christiano [facility] Building 1.2.840.114 350.1.13.10 4.2.7.2.[id number] [facility] 2020-06-11 09:45:00 2020-06-11 09:45:00 Outpatient R BRIDGETTE CHRISTIANO [facility] [id number] [facility] 2020-06-09 00:00:00 2020-06-09 00:00:00 Telephone Josette Cheung [facility] Building 1.2.840.114 350.1.13.10 4.2.7.2.[id number] [facility] 2020-04-09 00:00:00 2020-04-09 00:00:00 Patient Secure Msg Josette Cheung [facility] BUILDING 1..840.114 350.1.13.10 4.2.7.2.[id number] [facility] 2020-04-02 00:00:00 2020-04-02 00:00:00 Orders Only Doctor Unassigned, Lockhart [facility] 1.84.114 350.1.13.10 4.2.7.2.[id number] [facility] 2020-03-27 00:00:00 2020-03-27 00:00:00 Refill Bridgette Christian[facility] 1..840.114 350.1.13.10 4.2.7.2.[id number] [facility] 2020-02-29 15:30:00 2020-02-29 15:30:00 Outpatient CHRISTIANO NAIDU [facility] [id number] [facility] 2020-02-29 09:13:27 2020-02-29 09:28:27 Telemedici ne Visit Bridgette [facility] 1..840.114 350.1.13.10 4.2.7.2.[id number] [facility] 2020-02-27 11:00:00 2020-02-27 11:00:00 Outpatient R CHRISTIANO ANGELES [facility] [id number] [facility] 2020-02-07 00:00:00 2020-02-07 00:00:00 Patient Secure Msg Josette Cheung [facility] Building 1..840.114 350.1.13.10 4.2.7.2.[id number] [facility] 2020-01-30 12:12:00 2020-02-01 13:05:00 Hospital Encounter Josette Cheung [facility] 1.2840.114 350.1.13.10 4.2.7.2.[id number] [facility] 2020-02-01 10:00:00 2020-02-01 10:00:00 Outpatient R JOSETTE CHEUNG [facility] [id number] [facility] 2020-01-30 16:00:00 2020-01-30 16:00:00 [id number] 2020-01-30 09:01:54 2020-01-30 10:12:03 Routine Visit Josette Cheung [facility] Building 1.2840.114 350.1.13.10 4.2.7.2.[id number] [facility] 2020-01-30 09:30:00 2020-01-30 09:30:00 Outpatient R JOSETTE CHEUNG [facility] [id number] [facility] 2020-01-30 00:00:00 2020-01-30 00:00:00 Orders Only Doctor Unassigned, Lockhart [facility] 1.2840.114 350.1.13.10 4.2.7.2.[id number] [facility] 2020-01-29 00:00:00 2020-01-29 00:00:00 Patient Secure Msg Josette Cheung [facility] Building 1.2840.114 350.1.13.10 4.2.7.2.[id number] [facility] 2020-01-28 00:00:00 2020-01-28 00:00:00 Telephone Josette Cheung [facility] Building 1.2840.114 350.1.13.10 4.2.7.2.[id number] [facility] 2020-01-28 00:00:00 2020-01-28 00:00:00 Patient Secure Msg [facility] 1.2840.114 350.1.13.10 4.2.7.2.[id number] [facility] 2020-01-25 00:00:00 2020-01-25 00:00:00 Telephone Josette Cheung [facility] Building 1.2840.114 350.1.13.10 4.2.7.2.[id number] [facility] 2020-01-25 00:00:00 2020-01-25 00:00:00 Patient Secure Msg Josette Cheung [facility] Building 1.20.114 350.1.13.10 4.2.7.2.[id number] [facility] 2020-01-24 13:56:43 2020-01-24 14:11:43 Routine Visit Davidlance Christiano [facility] 1.2.114 350.1.13.10 4.2.7.2.[id number] [facility] 2020-01-24 13:45:00 2020-01-24 13:45:00 Outpatient R ALEXDEION CHRISTIANO [facility] [id number] [facility] 2020-01-23 11:39:00 2020-01-23 13:10:00 Hospital Encounter Josette Cheung [facility] 1.2.114 350.1.13.10 4.2.7.2.[id number] [facility] 2020-01-17 00:00:00 2020-01-17 00:00:00 Patient Secure Msg Joestte Cheung [facility] Building 1.284.114 350.1.13.10 4.2.7.2.[id number] [facility] 2020-01-16 15:23:25 2020-01-16 16:32:56 Routine Visit Josette Cheung [facility] 1.2840.114 350.1.13.10 4.2.7.2.[id number] [facility] 2020-01-16 15:45:00 2020-01-16 15:45:00 Outpatient R JONATAN JOSETTE [facility] [id number] [facility] 2020-01-16 15:26:06 2020-01-16 15:41:06 Log Handler Visit 2, Adc Lab Josette Cheung [facility] 1.20.114 350.1.13.10 4.2.7.2.[id number] [facility] 2020-01-16 00:00:00 2020-01-16 00:00:00 Orders Only Doctor Unassigned, Lockhart [facility] 1.0.114 350.1.13.10 4.2.7.2.[id number] [facility] 2020-01-08 09:51:46 2020-01-10 11:19:26 Log Handler Visit Ultrasound, Elan Bragg [facility] BOBBIN WINDER [facility] 1..114 350.1.13.10 4.2.7.2.[id number] [facility] 2020-01-09 00:00:00 2020-01-09 00:00:00 Patient Secure Msg Josette Cheung [facility] 1.2.114 350.1.13.10 4.2.7.2.[id number] [facility] 2020-01-08 10:00:00 2020-01-08 10:00:00 Outpatient P [facility] [id number] [facility] 2019-12-28 08:45:00 2019-12-28 08:45:00 Outpatient R CHRISTIANO ANGELES [facility] [id number] [facility] 2019-12-28 08:07:16 2019-12-28 08:42:05 Routine Visit Christiano Angeles [facility] Building 1.2.840.114 350.1.13.10 4.2.7.2.[id number] [facility] 2019-12-27 13:45:00 2019-12-27 13:45:00 Outpatient R CHRISTIANO ANGELES [facility] [id number] [facility] 2019-12-25 00:00:00 2019-12-25 00:00:00 Telephone Christiano Angeles [facility] Building 1.2.840.114 350.1.13.10 4.2.7.2.[id number] [facility] 2019-12-25 00:00:00 2019-12-25 00:00:00 Orders Only Doctor Unassigned, Lockhart [facility] 1.2.840.114 350.1.13.10 4.2.7.2.[id number] [facility] 2019-12-13 15:56:59 2019-12-13 16:41:05 Routine Visit Josette Cheung [facility] 1.2.840.114 350.1.13.10 4.2.7.2.[id number] [facility] 2019-12-13 16:00:00 2019-12-13 16:00:00 Outpatient R JOSETTE CHEUNG [facility] [id number] [facility] 2019-12-13 13:15:00 2019-12-13 13:15:00 Outpatient R JOSETTE CHEUNG [facility] [id number] [facility] 2019-12-03 13:30:00 2019-12-03 13:30:00 Outpatient R CHRISTIANO ANGELES [facility] [id number] [facility] 2019-12-03 12:34:57 2019-12-03 13:27:03 Routine Visit Christiano Angeles [facility] 1.2840.114 350.1.13.10 4.2.7.2.[id number] [facility] 2019-12-03 00:00:00 2019-12-03 00:00:00 Orders Only Doctor Unassigned, Lockhart [facility] 1.2.114 350.1.13.10 4.2.7.2.[id number] [facility] 2019-11-30 00:00:00 2019-11-30 00:00:00 Telephone Josette Cheung [facility] Building 1.2.114 350.1.13.10 4.2.7.2.[id number] [facility] 2019-11-27 00:00:00 2019-11-27 00:00:00 Refill Josette Cheung [facility] Building 1.2.114 350.1.13.10 4.2.7.2.[id number] [facility] 2019-11-20 00:00:00 2019-11-20 00:00:00 Patient Secure Msg Josette Cheung [facility] Building 1.20.114 350.1.13.10 4.2.7.2.[id number] [facility] 2019-11-20 00:00:00 2019-11-20 00:00:00 Patient Secure Msg Josette Cheung [facility] Building 1.20.114 350.1.13.10 4.2.7.2.[id number] [facility] 2019-11-19 08:42:18 2019-11-19 08:57:18 Log Handler Visit Pob, Adc Lab Main Josette Cheung [facility] 1.2.840.114 350.1.13.10 4.2.7.2.[id number] [facility] 2019-11-19 00:00:00 2019-11-19 00:00:00 Orders Only Doctor Unassigned, Lockhart [facility] 1.2.840.114 350.1.13.10 4.2.7.2.[id number] [facility] 2019-11-05 13:21:14 2019-11-05 15:07:44 Routine Visit Josette Cheung [facility] 1.2.840.114 350.1.13.10 4.2.7.2.[id number] [facility] 2019-11-03 14:43:22 2019-11-03 15:52:00 Emergency Trevor John [facility] 1.2.840.114 350.1.13.10 4.2.7.2.[id number] [facility] 2019-11-03 00:00:00 2019-11-03 00:00:00 Orders Only Doctor Unassigned, Lockhart [facility] 1.2.840.114 350.1.13.10 4.2.7.2.[id number] [facility] 2019-11-02 00:00:00 2019-11-02 00:00:00 Refill Josette Cheung [facility] 1.2.840.114 350.1.13.10 4.2.7.2.[id number] [facility] 2019-11-01 07:51:13 2019-11-01 09:15:00 Hospital Encounter Josette Cheung Michael [facility] 1.2.840.114 350.1.13.10 4.2.7.2.[id number] [facility] 2019-11-01 00:00:00 2019-11-01 00:00:00 Orders Only Doctor Unassigned, Lockhart [facility] 1.2840.114 350.1.13.10 4.2.7.2.[id number] [facility] 2019-10-30 00:00:00 2019-10-30 00:00:00 Patient Secure Msg [facility] 1.2.840.114 350.1.13.10 4.2.7.2.[id number] [facility] 2019-10-09 00:00:00 2019-10-09 00:00:00 Patient Secure Msg [facility] 1.2.840.114 350.1.13.10 4.2.7.2.[id number] [facility] 2019-06-15 09:41:01 2019-06-15 10:37:54 Nurse Visit Nurse, [facility] Josette Cheung [facility] nal Building 1.2.84.114 350.1.13.10 4.2.7.2.[id number] [facility] 2019-06-15 00:00:00 2019-06-15 00:00:00 Orders Only Doctor Unassigned, Lockhart [facility] 1.2840.114 350.1.13.10 4.2.7.2.[id number] [facility] 2018-09-18 16:15:00 2018-09-18 16:15:00 Outpatient [facility] [id number] [facility] 2018-08-25 08:45:00 2018-08-25 08:45:00 Appointmen t; JOEL ODOM M.D. JOEL ODOM M.D. [facility] [place] [id number] [facility] 2018-04-25 10:15:00 2018-04-25 10:15:00 Outpatient [facility] [id number] [facility] 2018-04-20 16:28:00 2018-04-20 16:28:00 Outpatient [facility] [id number] [facility] 2018-04-18 09:45:00 2018-04-18 09:45:00 Outpatient [facility] [id number] [facility] 2018-04-11 11:30:00 2018-04-11 11:30:00 Outpatient [facility] [id number] [facility] 2018-04-05 10:05:00 2018-04-05 10:05:00 Outpatient [facility] [id number] [facility] 2018-04-04 11:15:00 2018-04-04 11:15:00 Outpatient [facility] [id number] [facility] 2018-03-30 08:43:00 2018-03-30 08:43:00 Outpatient [facility] [id number] [facility] 2018-03-28 11:15:00 2018-03-28 11:15:00 Outpatient [facility] [id number] [facility] 2018-03-14 11:15:00 2018-03-14 11:15:00 Outpatient [facility] [id number] [facility] 2018-03-09 09:30:00 2018-03-09 09:30:00 Outpatient [facility] [id number] [facility] 2018-02-27 15:43:00 2018-02-27 15:43:00 Outpatient [facility] [id number] [facility] 2018-02-21 15:16:00 2018-02-21 15:16:00 Outpatient [facility] [id number] [facility] 2018-02-16 10:00:00 2018-02-16 10:00:00 Outpatient [facility] [id number] [facility] 2018-02-07 11:15:00 2018-02-07 11:15:00 Outpatient [facility] [id number] [facility] 2018-02-06 09:40:00 2018-02-06 09:40:00 Outpatient [facility] [id number] [facility] 2018-01-27 09:16:00 2018-01-27 09:16:00 Outpatient [facility] [id number] [facility] 2018-01-18 10:00:00 2018-01-18 10:00:00 Outpatient [facility] [id number] [facility] 2018-01-13 09:26:00 2018-01-13 09:26:00 Outpatient [facility] [id number] [facility] 2018-01-03 09:00:00 2018-01-03 09:00:00 [facility] [id number] [facility] Results Test Description Test Time Test Comments Results Result Co mments Source [facility] OB US ABD [id number] 19:43:52 Study Date and Time: 2025-05-14 14:28Study [...] additional imaging ordered ? ?Confirmatory study fin charles/comments: N/A Signed by Esther Garza on 2025-05-14 14:43[facility] [id number] 18:27:00Study Date and Time: 2025-05-14 12:53Study Author: [...] N/A Signed by Esther Garza on 2025-05-14 13:27[facility] [id number] 18:09:00* Test Item Value Reference Range Interpretation Comme [facility] POCT PREG (test code = 1605) Positive On board controls acceptable with C Line (test code = 3574) Yes POCT PREG LOT # (test code = 3575) [id number] POCT PREG TEST DATE ( test code = 3576) [id number] Lab Interpretation (test cod e = 77975-9) Normal [facility] SARS-COV-2 ANTIGEN (BINAX NOW)2025-04-08 01:50:00* Test Item Value Reference Range Interpretation Comme [facility] POCT SARS-COV-2 ANTIGEN (test code = 35347-1) Not Detected Not Detected, See Comment On board controls acceptable with C Line (test code = 3574) Yes [facility] Molecular [id number] 01:47:27* Test Item Value Reference Range Interpretation Comme nts POCT Molecular FluA (test co de = 51723-7) Negative Negative POCT Molecular FluB (test co de = 02617-8) Negative Negative Lab Interpretation (test cod e = 87597-7) Normal [facility] MOLECULAR [id number] 01:37:03* Test Item Value Reference Range Interpretation Comme nts POCT Molecular Strep (test c ode = 76505-7) Positive Negative A Lab Interpretation (test cod e = 33438-8) Abnormal [facility] [id number] 01:44:00* Test Item Value Reference Range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
[2025-05-30] MEDS ORDERED: ACETAMINOPHEN 500 MG TAB ONE (17:36)
[2025-05-30 17:58] LABS: Absolute Lymphocytes (CBC) 1.3 K/uL (0.7-4.9); Hematocrit 37.7 % (36.0-45.0); Hemoglobin 12.7 g/dL (12.0-15.0); MCH 29.7 pg (27.0-35.0); MCHC 33.8 g/dL (32.0-36.0); MCV 87.8 fL (80-100); MPV 7.5 fL (7.6-11.3); Nucleated RBC Absolute Count 0.0 (0-0); Nucleated Red Blood Cells % 0.1 % (0-0); RBC Red Blood Cell Count 4.29 M/uL (3.86-4.86); White Blood Count 6.40 thou/uL (4.3-10.9)
--- NOTE | 2025-05-30 18:25 | RAD REPORT ---
EXAMINATION: US LOWER EXTREMITY VENOUS DOPPLER BILATERAL CLINICAL INDICATION: Female, 29 years old.SWELLING TECHNIQUE: Complete bilateral duplex sonography of the lower extremity veins was performed. The exami nation included compression for vein patency, color Doppler imaging and flow augmentation in response to distal compression of the distal external iliac, common femoral, femoral, popliteal, tylor christie, tibial and great saphenous veins. [id number]. COMPARISON: No prior exams FINDINGS: Duplex sonography imaging demonstrates all deep examined to be fully compressible with spontaneous, p hasic and augmented flow bilaterally. IMPRESSION: No evidence of deep venous thrombosis seen in either lower extremity.
--- NOTE | 2025-05-30 18:27 | RAD REPORT ---
EXAM: 1St Trimest Single 1St Fetus HISTORY: FLANK PAIN COMPARISON: None TECHNIQUE: Multiple grayscale and color Doppler images were obtained in a transvaginal pelvic ultraso und. Spectral analysis of the Doppler waveforms of the ovaries were performed. FINDINGS: UTERUS: There is an intrauterine gestational sac. This contains a yolk sac and pole. [place]-rump length: 1.0 cm which estimates gestational age at 7 week 0 day. A heart rate is detected at 146 bpm. Small subcortical hemorrhage. No free fluid is seen in the pelvis. RIGHT OVARY: Not visualized, possibly obscured by bowel gas. LEFT OVARY: Not visualized, possibly obscured by bowel gas. IMPRESSION: Single live IUP with positive heart tones measuring 7 week 0 day. Small subchorionic hemorrhage .
--- NOTE | 2025-05-30 18:28 | RAD REPORT ---
EXAMINATION: US RETROPERITONEUM CLINICAL INDICATION: left flank pain TECHNIQUE: Real-time ultrasonography of the abdomen was performed. COMPARISON: No prior exams FINDINGS: RIGHT KIDNEY: Not visualized/evaluated. LEFT KIDNEY: Left renal length measurement: 11.4 cm. Echogenicity is normal. No calculus or solid m ass. No hydronephrosis. . ADDITIONAL FINDINGS: N/A IMPRESSION: Unremarkable left kidney. No hydronephrosis. Nonvisualized/not evaluated right kidney.
[2025-05-30 18:35] LABS: Urine Crystals Unidentified Few /HPF (None Seen); Urine Culture Reflex Order REFLEXED; Urine Microscopic Reflex YN ORDER UMIC; Urine WBC Clump Occasional /HPF (None Seen); Urine Yeast (Budding) Few /HPF (None Seen)
[2025-05-30 18:47] LABS: ALT/SGPT 19 U/L (13-56); Albumin 2.9 g/dL (3.4-5.0); Albumin/Globulin Ratio 0.8 (1.1-1.8); Alkaline Phosphatase 50 U/L (45-117); Anion Gap 6.9 mEq/L (5.0-15.0); BUN Blood Urea Nitrogen 6 mg/dL (7-18); Globulin 3.7 g/dL (2.3-3.5); Glucose Level 94 mg/dL (74-106); HCG, Quantitative 44908 mIU/mL (1-3); Lipase 20 U/L (13-75); Potassium 3.9 mEq/L (3.5-5.1)
[2025-05-30 18:50] LABS: AST/SGOT < 10 U/L (15-37)
--- NOTE | 2025-05-30 19:27 | ER ---
Nurse's Notes [facility] Name: Nicolasa Rose Age: 29 yrs Sex: Female : 1995 Arrival Date: 05/30/2025 Time: 15:20 Bed 5 Private MD: Diagnosis: UTI/ Urinary tract infection, site not specified;Edema, unspecified;Other specified related conditions, first trimester Presentation: 05/30 15:49 Chief complaint: Patient states: left flank pain x 2 days, 5/10 "sharp, stabbing", 7 me1 weeks . Also reports swelling in BLE. Denies dysuria. c/o n/v but has had morning sickness. . Coronavirus screen: Vaccine status: Patient reports receiving the 2nd dose of the covid vaccine. Ebola Screen: No symptoms or risks identified at this time. Initial Sepsis Screen: Does the patient meet any 2 criteria? No. Patient's initial sepsis screen is negative. Does the patient have a suspected source of infection? No. Patient's initial sepsis screen is negative. Risk Assessment: Do you want to hurt yourself or someone else? Patient reports no desire to harm self or others. Onset of symptoms was May 28, 2025. 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 - Infectious Disease History:: Denies. - Social history:: Smoking status: Patient denies any tobacco usage or history of. Screenin:30 [facility] ED Fall Risk Assessment (Adult) History of falling in the last 3 months, lg3 including since admission No falls in past 3 months (0 pts) Confusion or Disorientation No (0 pts) Intoxicated or Sedated No (0 pts) Impaired Gait No (0 pts) Mobility Assist Device Used No (0 pt) Altered Elimination No (0 pt) Score/Fall Risk Level 0 - 2 = Low Risk Oriented to surroundings, Maintained a safe environment, Educated pt \\T\\ family on fall prevention, incl call for assistance when getting out of bed, Assessed \\T\\ reinforced patient's understanding of fall precautions. Abuse screen: Denies threats or abuse. Denies injuries from another. Nutritional screening: No deficits noted. Tuberculosis screening: No symptoms or risk factors identified. Assessment: 19:30 General: Appears in no apparent distress. comfortable, Behavior is calm, cooperative. lg3 Pain: Complains of pain in left flank Pain does not radiate. Pain currently is 2 out of 10 on a pain scale. Neuro: No deficits noted. Mark Agitation-Sedation Scale (RASS): 0 - Alert and Calm Level of Consciousness is awake, alert, obeys commands, Oriented to person, place, time, situation. Cardiovascular: No deficits noted. Denies chest pain, shortness of breath, Capillary refill < 3 seconds Clubbing of nail beds is present JVD is absent Patient's skin is warm and dry. Respiratory: No deficits noted. Airway is patent Respiratory effort is even, unlabored, Respiratory pattern is regular, symmetrical. GI: Abdomen is round non-distended, Bowel sounds present X 4 quads. : Reports burning with urination. EENT: No deficits noted. No signs and/or symptoms were reported regarding the EENT system. Derm: No deficits noted. No signs and/or symptoms reported regarding the dermatologic system. Skin is intact, is healthy with good turgor, Skin is dry, Skin is normal, Skin temperature is warm. Musculoskeletal: Circulation, motion, and sensation intact. Range of motion: intact in all extremities, Reports pain in left flank. 20:06 Reassessment: Patient appears in no apparent distress at this time. No changes from lg3 previously documented assessment. Patient and/or family updated on plan of care and expected duration. Pain level reassessed. Patient is alert, oriented x 3, equal unlabored respirations, skin warm/dry/pink. Patient states feeling better. Patient states symptoms have improved. Vital Signs: 15:49 BP 110 / 67; Pulse 72; Resp 17; Temp 97.9; Pulse Ox 100% ; Weight 127.01 kg; Height 5 me1 ft. 5 in. ; Pain 5/10; 20:06 BP 117 / 61; Pulse 66; Resp 18 S; Pulse Ox 100% on R/A; Pain 2/10; lg3 15:49 Body Mass Index 46.59 (127.01 kg, 165.1 cm) me1 15:49 Pain Scale: Adult me1 20:06 Pain Scale: Adult lg3 ED Course: 15:23 Patient arrived in ED. im 15:25 Kenny Tucker PA-C is PHCP. cp 15:25 Kenny Storey MD is Attending Physician. cp 15:51 Triage completed. me1 15:51 Arm band placed on Patient placed in waiting room. me1 17:22 Vickey Myles, OWEN is Primary Nurse. bp 17:48 Initial lab(s) drawn, by fl, sent to lab. Urine collected: clean catch specimen, bp cloudy. Inserted saline lock: 22 gauge in right antecubital area, using aseptic technique. Blood collected. Flushed with 10 mL NS. 18:20 US Extremity Venous W Compression Parvez In Process Unspecified. EDMS 18:20 1St Trimest Single 1St Fetus In Process Unspecified. EDMS 18:21 US Rp Exam Limited In Process Unspecified. EDMS 19:30 Patient has correct armband on for positive identification. Bed in low position. Call lg3 light in reach. Side rails up X 1. Client placed on continuous cardiac and pulse oximetry monitoring. NIBP monitoring applied. Door closed. Noise minimized. Warm blanket given. Pillow given. 19:30 No provider procedures requiring assistance completed. lg3 20:06 IV discontinued, intact, bleeding controlled, No redness/swelling at site. Pressure lg3 dressing applied. Administered Medications: 17:48 Drug: Acetaminophen PO 1000 mg PO once Route: PO; bp 20:07 Follow up: Response: No adverse reaction lg3 20:04 Drug: Rocephin IV 1 grams IV at calculated rate once; Given slow IV push per pharmacy lg3 instructions Route: IV; Rate: calculated rate; Site: right antecubital; 20:07 Follow up: Response: No adverse reaction; IV Status: Completed infusion; IV Intake: [id number] 20:04 Drug: Nitrofurantoin PO 100 mg PO once; administer with food Route: PO; lg3 20:07 Follow up: Response: No adverse reaction lg3 Medication: 19:30 VIS not applicable for this client. lg3 Intake: 20:07 IV: 10ml; Total: 10ml. lg3 Outcome: 19:26 Discharge ordered by . cp 20:06 Discharged to home ambulatory, lg3 20:06 Condition: stable 20:06 Discharge instructions given to patient, Instructed on discharge instructions, follow up and referral plans. medication usage, Demonstrated understanding of instructions, follow-up care, medications, Prescriptions given X 2, 20:08 Patient left the ED. lg3 Signatures: Dispatcher [employer] EDMS Kenny Tucker, THELMA PAVickey Tellez cp, RN RN Nakia Sal RN RN lg3 Luz Iqbal Michelle RN RN me1
--- NOTE | 2025-05-30 19:27 | EDPHYS ---
Physician Documentation [facility] Name: Nicolasa Rose Age: 29 yrs Sex: Female : 1995 Arrival Date: 05/30/2025 Time: 15:20 Bed 5 Private MD: ED Physician Kenny Storey HPI: 05/30 15:55 This 29 yrs old Female presents to ER via Ambulatory with complaints of Flank Pain, 7 cp weeks . 15:55 The patient complains of pain in the left lower flank. Onset: The symptoms/episode cp began/occurred 2 day(s) ago. 15:55 Associated signs and symptoms: Pertinent positives: nausea, Pertinent negatives: cp dysuria, fever, vomiting, vaginal bleeding. 15:55 Severity of pain: in the emergency department the pain is unchanged despite home cp interventions. 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 - Infectious Disease History:: Denies. - Social history:: Smoking status: Patient denies any tobacco usage or history of. ROS: 16:00 Constitutional: Negative for body aches, chills, fever, poor PO intake, cp 16:00 Eyes: Negative for injury, pain, redness, and discharge, cp 16:00 ENT: Negative for drainage from ear(s), ear pain, sore throat, difficulty swallowing, difficulty handling secretions, 16:00 Cardiovascular: Positive for edema, Negative for chest pain, palpitations, 16:00 Respiratory: Negative for cough, shortness of breath, wheezing, 16:00 Abdomen/GI: Positive for nausea, left flank pain, Negative for vomiting, diarrhea, constipation, 16:00 : Negative for hematuria, burning with urination, vaginal bleeding, 16:00 Skin: Negative for cellulitis, rash, 16:00 All other systems are negative, Exam: 16:05 Constitutional: The patient appears in no acute distress, alert, awake, non-toxic, well cp developed, well nourished, obese, 16:05 Head/Face: Normocephalic, atraumatic. cp 16:05 Eyes: Periorbital structures: appear normal, Conjunctiva: normal, no exudate, no injection, Sclera: no appreciated abnormality, Lids and lashes: appear normal, bilaterally, 16:05 ENT: External ear(s): are unremarkable, Nose: is normal, Mouth: Lips: moist, Oral mucosa: moist, Posterior pharynx: Airway: no evidence of obstruction, patent, 16:05 Chest/axilla: Inspection: normal, 16:05 Cardiovascular: Rate: normal, Rhythm: regular, 16:05 Respiratory: the patient does not display signs of respiratory distress, Respirations: normal, no use of accessory muscles, no retractions, labored breathing, is not present, Breath sounds: are clear throughout, no decreased breath sounds, no stridor, no wheezing, 16:05 Abdomen/GI: Inspection: obese Bowel sounds: active, all quadrants, Palpation: mild cp abdominal tenderness, in the left lower lateral flank, rebound tenderness, is not appreciated, involuntary guarding, is not appreciated, 16:05 Back: CVA tenderness, is absent, 16:05 Skin: cellulitis, no rash present. 16:05 Neuro: Orientation: to person, place \T\ time. Mentation: is normal, Gait: is steady, at cp a normal pace, without difficulty, Vital Signs: 15:49 BP 110 / 67; Pulse 72; Resp 17; Temp 97.9; Pulse Ox 100% ; Weight 127.01 kg; Height 5 me1 ft. 5 in. ; Pain 5/10; 20:06 BP 117 / 61; Pulse 66; Resp 18 S; Pulse Ox 100% on R/A; Pain 2/10; lg3 15:49 Body Mass Index 46.59 (127.01 kg, 165.1 cm) me1 15:49 Pain Scale: Adult me1 20:06 Pain Scale: Adult lg3 MDM: 16:10 Medical Screening Exam initiated johnny 19:00 Differential diagnosis: nephrolithiasis, pyelonephritis, UTI, diverticulitis, sepsis, cp threatened miscarriage. 19:25 Data reviewed: vital signs, lab test result(s), radiologic studies, ultrasound, and as cp a result, I will discharge patient. 19:25 I considered the following discharge prescriptions or medication management in the emergency department Medications were administered in the Emergency Department. See MAR. Counseling: I had a detailed discussion with the patient and/or guardian regarding the historical points, exam findings, and any diagnostic results supporting the discharge/admit diagnosis, lab results, radiology results, the need for outpatient follow up, an OB/Gyne specialist, to return to the emergency department if symptoms worsen or persist or if there are any questions or concerns that arise at home. 05/30 15:53 Order name: CBC with Diff; Complete Time: 19:12 05/30 19:12 Interpretation: Normal except: MPV 7.5; BASO% 1.6. 05/30 15:53 Order name: CMP; Complete Time: 19:12 05/30 19:13 Interpretation: Normal except: CL 109; BUN 6; AST < 10; ALB 2.9; GLOB 3.7; A/G 0.8. 05/30 15:53 Order name: Lipase; Complete Time: 19:12 05/30 15:53 Order name: Quantitative Hcg; Complete Time: 19:12 05/30 19:13 Interpretation: Reviewed. 05/30 15:53 Order name: UA Rfx Anil Cult if indicated; Complete Time: 19:12 05/30 19:13 Interpretation: Normal except: [facility] Extremely Turbid; UBLD Trace; UPH 7.5; UPROT TRACE; cp UESTR 500; UWBC 20-50; URBC 11-20; UWBC Clump Occasional; BYST Few. 05/30 15:53 Order name: Test, Urine; Complete Time: 19:12 05/30 18:38 Order name: Urine Culture EDMN 05/30 17:12 Order name: US Extremity Venous W Compression Parvez; Complete Time: 19:12 05/30 19:14 Interpretation: Report reviewed. 05/30 17:12 Order name: US Rp Exam Limited; Complete Time: 19:12 05/30 19:14 Interpretation: Report reviewed. 05/30 18:20 Order name: 1St Trimest Single 1St Fetus; Complete Time: 19:12 EDMN 05/30 15:53 Order name: IV Saline Lock; Complete Time: 17:48 05/30 15:53 Order name: Labs collected and sent; Complete Time: 17:48 cp Administered Medications: 17:48 Drug: Acetaminophen PO 1000 mg PO once Route: PO; bp 20:07 Follow up: Response: No adverse reaction lg3 20:04 Drug: Rocephin IV 1 grams IV at calculated rate once; Given slow IV push per pharmacy lg3 instructions Route: IV; Rate: calculated rate; Site: right antecubital; 20:07 Follow up: Response: No adverse reaction; IV Status: Completed infusion; IV Intake: [id number] 20:04 Drug: Nitrofurantoin PO 100 mg PO once; administer with food Route: PO; lg3 20:07 Follow up: Response: No adverse reaction lg3 Disposition: 05/31 09:13 Co-signature as Attending Physician, Kenny Storey MD I agree with the assessment and johnny plan of care. Disposition Summary: 05/30/25 19:26 Discharge Ordered Notes: Location: Home cp Problem: new cp Symptoms: have improved cp Condition: Stable cp Diagnosis - UTI/ Urinary tract infection, site not specified cp - Edema, unspecified cp - Other specified related conditions, first trimester cp Followup: cp - With: Private Physician - When: 5 - 6 days - Reason: Recheck today's complaints Discharge Instructions: - Discharge Summary Sheet cp - Abdominal Pain During cp - Flank Pain, Adult cp - Urinary Tract Infection, Adult cp - First Trimester of cp - Peripheral Edema cp - How to Use Compression Stockings cp Forms: - Medication Reconciliation Form cp - Antibiotic Education cp - Prescription Opioid Use cp - Patient Portal Instructions cp - Leadership Thank You Letter cp - Work release form [email or web address] Prescriptions: - Zofran 4 mg Oral Tablet - take 1 tablet ORAL route every 12 hours As needed; 20 tablet; Refills: 0, cp Product Selection Permitted - Macrobid 100 mg Oral Capsule - take 1 capsule ORAL route every 12 hours for 7 days; 14 capsule; Refills: 0, cp Product Selection Permitted Signatures: Dispatcher [employer] Kenny Garcia MD MD cha Page, Corey, PA-C PA-C Vickey Grace, RN Nakia Cyr RN RN lg3 Erika Paredes RN RN me1 Corrections: (The following items were deleted from the chart) 05/30 15:53 15:53 CBC+H.LAB.BRZ ordered. EDMN EDMS 15:53 15:53 COMPREHENSIVE METABOLIC PANEL+C.LAB.BRZ ordered. EDMS EDMS 15:53 15:53 LIPASE+C.LAB.BRZ ordered. EDMS EDMS 15:53 15:53 QUANTITATIVE HCG+C.LAB.BRZ ordered. EDMS EDMS 15:54 15:54 UA Rfx Anil Cult if indicated+U.LAB.BRZ ordered. EDMS EDMS 15:54 15:54 Test, Urine+UC.LAB.BRZ ordered. EDMS EDMS 17:14 17:14 OB Limited+US.RAD.BRZ ordered. EDMS EDMS 18:20 17:17 Transvaginal OB ordered. EDMS EDMS
[2025-05-30] MEDS ORDERED: NITROFURAN MACRO 100 MG CAP PO ONE (19:56)
[2025-05-30] MEDS ORDERED: CEFTRIAXONE 1000 MG/VIAL ONE (19:56)
[2025-05-30 20:56] VITALS: TEMP 97.9; O2SAT 100
[2025-05-30 20:58] VITALS: BP 117/61
== END 2025-05-30 20:08 | disposition home or self-care (01) ==
LOC: ER 15:20
DX: O23.41 Unspecified infection of urinary tract in pregnancy, first trimester (principal); N39.0 Urinary tract infection, site not specified; O12.01 Gestational edema, first trimester; Z3A.01 Less than 8 weeks gestation of pregnancy; Z88.0 Allergy status to penicillin; Z88.8 Allergy status to other drugs, medicaments and biological substances
CPT/HCPCS: 87088; 85025; 81001; 87086; 36415; 81025; 84702; 83690; 80053; 93970; 76775; 76801; 96374; 99284; J0696